=== PATIENT | female | born 1950 | race Caucasian/White ===

== ENCOUNTER 2018-03-05 01:06 | Outpatient (CLI) | payer MEDICARE, BC, SELFPAY ==
--- NOTE | 2018-03-05 15:47 | DI.MAMMO_ITS ---
SYMPTOMS/DIAGNOSIS: SCREEN FOR CONDITION, Z13.9 MAMMOGRAM: Mammograms were interpreted according to the usual protocol including computer analysis with CAD system, tomosynthesis and C view imaging. The breast tissue is primarily of fatty radiodensity. There is no mass. There are no suspicious calcifications and there has been no significant interval change when compared with prior images. SUMMARY: No evidence of malignancy, category 1. Yearly screening mammography is recommended. Breast density category A. MQSA ASSESSMENT OF FINDINGS: Negative. Category 1. Patient will receive a letter notifying them of these results. BI-RAD category A. The breasts are almost entirely fatty.
== END 2018-03-05 01:26 ==
PROVIDERS: PCP Family Medicine; Visit Provider Family Medicine
DX: Z12.31 Encounter for screening mammogram for malignant neoplasm of breast (principal)
CPT/HCPCS: 77063; 77067

== ENCOUNTER 2018-06-16 11:29 | Outpatient (REF) | payer MEDICARE, BC, SELFPAY ==
[2018-06-16 19:21] LABS: TSH (W/Ref FT4) 1.83 uIU/mL (0.358-3.74)
== END 2018-06-16 11:49 ==
LOC: NCHCN 11:29
PROVIDERS: PCP Family Medicine; Visit Provider Family Medicine
DX: E03.9 Hypothyroidism, unspecified (principal)
CPT/HCPCS: 84443

== ENCOUNTER 2018-08-28 09:26 | Outpatient (CLI) | payer MEDICARE, BC, SELFPAY ==
[2018-08-28 11:57] LABS: ALT 47 U/L (12-78); AST 31 U/L (15-37); Albumin 4.1 g/dL (3.4-5.0); Alkaline Phosphatase 71 U/L (46-116); Anion Gap 8.3 mmol/L (3-11); BUN 23 mg/dL (7-18); Bilirubin, Total 0.4 mg/dL (0.2-1.0); CO2 29.7 mmol/L (21.0-32.0); CREATININE 0.75 mg/dL (0.55-1.02); Calcium 9.8 mg/dL (8.5-10.1); Chloride 105 mmol/L (98-107); Cholesterol 329 mg/dL (50-200); Glucose 103 mg/dL (70-100); HDL Cholesterol 67 mg/dL (40-60); LDL CHOLESTEROL 234 mg/dL (<100); Potassium 4.2 mmol/L (3.5-5.1); Sodium 143 mmol/L (136-145); Total Protein 7.1 g/dL (6.4-8.2); Triglyceride 128 mg/dL (30-150)
== END 2018-08-28 09:46 ==
PROVIDERS: PCP Family Medicine; Visit Provider Family Medicine
DX: E78.5 Hyperlipidemia, unspecified (principal); E03.9 Hypothyroidism, unspecified
CPT/HCPCS: 36415; 80053; 80061; 83721; 84443

== ENCOUNTER → 2019-03-16 10:52 | Outpatient (BNVA) | payer MEDICARE, BC, SELFPAY | PROVIDERS: PCP Family Medicine; Visit Provider Surgery | DX: Z12.11 Encounter for screening for malignant neoplasm of colon (principal) | CPT/HCPCS: 99203 ==

== ENCOUNTER 2019-03-18 17:28 | Outpatient (REF) | payer MEDICARE, BC, SELFPAY ==
[2019-03-18 19:23] LABS: HCT 37.6 % (36.0-46.0); HGB 12.7 g/dL (12.0-15.5); Mean Corp. HGB Concentration 33.8 g/dL (32.0-36.0); Mean Corpuscular Volume 94.7 fL (80-95); Mean Platelet Volume 9.2 fL (8.0-11.0); Platelet Count 360 x1000/uL (130-400); RBC 3.97 m/cumm (4.00-5.20); RBC Distribution Width 12.3 % (11.7-14.6); White Blood Cell Count 7.28 k/cumm (4.4-10.8)
[2019-03-18 19:59] LABS: Vitamin B12 573 pg/mL (193-986)
[2019-03-19 07:26] LABS: Vitamin D 25 Total 34.5 ng/ml (30-100)
[2019-03-20 12:04] LABS: Lyme Ab w Rflx to Lyme Confirm Negative
== END 2019-03-18 17:48 ==
LOC: NCHCN 17:28
PROVIDERS: PCP Family Medicine; Visit Provider Family Medicine
DX: E55.9 Vitamin D deficiency, unspecified (principal); R53.83 Other fatigue; R21 Rash and other nonspecific skin eruption
CPT/HCPCS: 82306; 85027; 82607; 86618

== ENCOUNTER 2019-03-20 07:32 | Day surgery (SDC) | payer MEDICARE, BC, SELFPAY ==
[2019-03-20 07:32] VITALS: BP 138/83; PULSE 66; RESP 16; TEMP 36.3; O2SAT 95
[2019-03-20] MEDS: Lactated Ringers 1,000 ML 80 ML IV (08:28)
--- NOTE | 2019-03-20 08:51 | W.PM.DSUDISC ---
Discharge Plan Disposition Patient Disposition: HOME Condition: Good Discharge Details Reason For Visit: SCREENING Attending Provider: Maya Hou Primary Care Provider: Juan Smith Home Meds and New Rx's Prescriptions: Continued ofloxacin 0.3 % dropperette 10 drp OT BID RF: 0 topiramate 25 mg tablet 25 mg PO DAILY RF: 0 cholecalciferol (vitamin D3) 2,000 unit capsule 2,000 unit PO DAILY RF: 0 Tirosint 50 mcg capsule 50 mcg PO DAILY RF: 0 trazodone 50 mg tablet 150 mg PO QHS RF: 0 epinephrine 0.3 MG/0.3 ML auto-injector 0.3 mg IM DIRECTED PRNRF: 0 fexofenadine [Aller-ease] 180 MG tablet 180 mg PO PRN PRNRF: 0 fluticasone propionate 15.8 ML spray,suspension 2 spray NS DAILY RF: 0 estradiol [Vagifem] 10 MCG tablet 10 mcg VG .TWICE WEEKLY RF: 0 Tirosint 13 MCG capsule 13 mcg PO DAILY RF: 0 Discontinued polyethylene glycol 3350 17 gram/dose powder 238 g PO ONCE Qty: 238 RF: 0 bisacodyl 5 mg tablet,delayed release (DR/EC) 5 mg PO ONCE Qty: 4 RF: 0 Discharge Instructions Additional Instructions: Findings: Your colonoscopy was normal. Follow up: Plan for a screening in 10 years if your overall health is good. Please call if you develop: fevers >101.5 Nausea or Vomiting Abdominal pain that is not transient DAY SURGERY UNIT POST COLONOSCOPY INSTRUCTIONS 1. Because there will be medication in your system for the next 24 hours, you may feel a little sleepy. Your coordination will be affected. Therefore: a. Do not drive or operate dangerous equipment for 24 hours. b. Do not drink alcohol beverages for 24 hours (not even beer). c. Plan to go home and rest for the day. 2. Generally there are no restrictions on your activity after a day or so has gone by, but you may feel a bit fatigued for a few days. 3 After you arrive home you may have a light meal and return to a normal diet as you can tolerate it without feeling sick to your stomach. 4. After surgery, you may feel pain or discomfort. This should be only transient, but if it persists please contact your doctor. 5. If there are any questions regarding the findings of your procedure, please feel free to contact your doctor. 6. If you are unable to contact your doctor with a problem, contact the hospital at [phone]. 7. Continue all your regular medications unless directed otherwise. I understand the above instructions and have no questions. Signature of Patient or Responsible Adult Escort Date/Time Name of Responsible Adult Escort Signature of Nurse Date/Time Activity:: Activity as Tolerated Diet:: As Tolerated Discharge Orders Discharge Orders: Discharge Order (Routine); Ordered 03/20/19 Ordered By: Maya Hou DS: Diagnosis Discharge Diagnosis (1) Encounter for screening colonoscopy: Status: Acute
[2019-03-20 10:12] VITALS: BP 126/74; PULSE 69; RESP 16; TEMP 36.2; O2SAT 98
--- NOTE | 2019-03-20 10:55 | COLE_ITS ---
DATE OF PROCEDURE: March 20, 2019 PREOPERATIVE DIAGNOSIS: Screening. POSTOPERATIVE DIAGNOSIS: Normal colon. PROCEDURE: Colonoscopy. SURGEON: Maya Hou M.D. ANESTHESIA: General. INDICATIONS: This is a 69-year-old woman who presents for routine colon evaluation. Her last proced ure in 2008 was normal. She is asymptomatic and has no family history of colon cancer. PROCEDURE: She was placed in the left Temple position. Propofol was titrated to sedation. Digital re ctal examination revealed no abnormalities. The scope was advanced to the cecum with some abdominal pressure required. She did have a slightly tortuous colon. The ileocecal valve and appendiceal orif ice were clearly identified. Her prep was good. The scope was slowly withdrawn with no abnormalitie s seen within the ascending, transverse, descending or sigmoid colon or rectum, including on retrofle x view. She tolerated the procedure well and was stable to recovery. She can consider a screening a gain in ten years if her overall health is good. cc: Juan Smith M.D.
== END 2019-03-20 10:40 | disposition home or self-care (01) ==
PROVIDERS: PCP Family Medicine; Visit Provider Surgery
PROC: 0DJD8ZZ Inspection of Lower Intestinal Tract, Via Natural or Artificial Opening Endoscopic (ICD-10-PCS; CPT 45378; principal; 2019-03-20 09:00)
DX: Z12.11 Encounter for screening for malignant neoplasm of colon (principal); K63.89 Other specified diseases of intestine; G47.33 Obstructive sleep apnea (adult) (pediatric)
CPT/HCPCS: G0121; J2250; J3010

== ENCOUNTER 2019-06-19 10:48 | Outpatient (REF) | payer MEDICARE, BC, SELFPAY | END 2019-06-19 11:08 | LOC: NCHCN 10:48 | PROVIDERS: PCP Family Medicine; Visit Provider Family Medicine | DX: K52.9 Noninfective gastroenteritis and colitis, unspecified (principal) | CPT/HCPCS: 87177 ==

== ENCOUNTER → 2019-06-22 08:42 | Outpatient (BNVA) | payer MEDICARE, BC, SELFPAY | PROVIDERS: PCP Family Medicine; Referring Provider Family Medicine; Visit Provider Internal Medicine Cardiovascular Disease | DX: E78.01 Familial hypercholesterolemia (principal) | CPT/HCPCS: 99204; 99215 ==

== ENCOUNTER 2020-03-01 11:14 | Outpatient (REF) | payer MEDICARE, BC, SELFPAY ==
[2020-03-01 19:01] LABS: HCT 39.4 % (36.0-46.0); HGB 12.9 g/dL (11.2-15.7); MCH 32.3 pg (27.0-33.0); MCHC 32.7 % (32.0-36.0); MCV 98.5 fL (80-95); MPV 9.1 fL (8.0-11.0); Platelet Count 361 10^3/uL (130-400); RDW 12.2 % (11.7-14.6); RDW-SD 44.3 fL; WBC 6.87 10^3/uL (4.4-10.8)
[2020-03-01 19:23] LABS: Anion Gap 7.7 mmol/L (3-11); BUN 30 mg/dL (7-18); CO2 28.3 mmol/L (21.0-32.0); CREATININE 0.85 mg/dL (0.55-1.02); Calcium 9.6 mg/dL (8.5-10.1); Chloride 103 mmol/L (98-107); Glucose 96 mg/dL (74-106); Magnesium 2.1 mg/dL (1.8-2.4); Sodium 139 mmol/L (136-145); TSH (W/Ref FT4) 1.84 uIU/mL (0.36-3.74)
[2020-03-03 04:36] LABS: Vitamin D 25 Total 31.2 ng/ml (30-100)
== END 2020-03-01 11:34 ==
LOC: NCHCN 11:14
PROVIDERS: PCP Family Medicine; Visit Provider Family Medicine
DX: E03.9 Hypothyroidism, unspecified (principal); R25.2 Cramp and spasm; R53.83 Other fatigue; E55.9 Vitamin D deficiency, unspecified
CPT/HCPCS: 80048; 82306; 85027; 83735; 84443

== ENCOUNTER 2020-04-11 02:16 | Outpatient (CLI) | payer MEDICARE, BC, SELFPAY ==
--- NOTE | 2020-04-11 | DI.MAMMO_ITS ---
EXAM: MAMMO SCREENING CLINICAL HISTORY: SCREENING,Z12.39 TECHNIQUE: Bilateral full field digital CC and MLO mammographic images were obtained with 3D tomosyn thesis and utilizing computer aided detection (CAD). COMPARISON: Available for comparison. FINDINGS: Masses/Architectural Distortion: There is a small asymmetric density in the outer right breast on the CC view. Microcalcifications: No suspicious pleomorphic-type are seen. Skin Thickening/Nipple Retraction: None. IMPRESSION: 1. Asymmetric density in the outer right breast on the CC view. 2. Spot compression view and right breast ultrasound are recommended for further evaluation. BI-RADS Category 0 - Assessment Incomplete: Need additional imaging evaluation Breast Density - Category B - Scattered areas of fibroglandular density A negative radiographic report should not delay biopsy if a dominant or clinically suspicious mass is present. Up to ten percent of cancers are not identified on mammography. A negative report may reinforce clinical impression. Adenosis and dense breasts may obscure an underlying neoplasm. False positive reports average 6 to 10%. Patient will receive a letter notifying them of these results.
== END 2020-04-11 02:36 ==
PROVIDERS: PCP Family Medicine; Visit Provider Family Medicine
DX: Z12.31 Encounter for screening mammogram for malignant neoplasm of breast (principal); R92.8 Other abnormal and inconclusive findings on diagnostic imaging of breast; E78.01 Familial hypercholesterolemia
CPT/HCPCS: 77063; 77067; 99213

== ENCOUNTER 2020-04-14 00:37 | Outpatient (CLI) | payer MEDICARE, BC, SELFPAY ==
--- NOTE | 2020-04-14 | DI.MAMMO_ITS ---
EXAM: MG MAMMO SCREEN CALL BACK UNI and U/S breast RT limited CLINICAL HISTORY: F/U MAMMO,SMALL ASYMMETRIC DENSITY OUTER RT BREAST ON CC VIEW. TECHNIQUE: Craniocaudal and mediolateral oblique Full Field Digital Mammography views of the right b reast with Computer Aided Diagnosis followed by Tomosynthesis and right breast ultrasound. COMPARISON: Priors available for comparison. FINDINGS: Mammography/Tomosynthesis: Masses/Architectural Distortion: None seen. Microcalcifictions: No suspicious pleomorphic-type are seen. Skin Thickening/Nipple Retraction: None. Right breast US: Echotexture: Normal appearance of the glandular tissue. Shadowing: No suspicious foci. Cyst: None. Solid lesions: None seen. Ductal dilation: None. IMPRESSION: 1. No evidence of malignancy is noted. 2. A six-month follow-up right mammogram is recommended for re-evaluation. 3. The findings were discussed with the patient on the date of the examination. BI-RADS Category 3 - 6 month - Probably Benign Finding: Recommend follow-up mammography in 6 months Breast Density - Category B - Scattered areas of fibroglandular density A negative radiographic report should not delay biopsy if a dominant or clinically suspicious mass is present. Up to ten percent of cancers are not identified on mammography. A negative report may reinforce clinical impression. Adenosis and dense breasts may obscure an underlying neoplasm. False positive reports average 6 to 10%. Patient will receive a letter notifying them of these results.
== END 2020-04-14 00:57 ==
PROVIDERS: PCP Family Medicine; Visit Provider Family Medicine
DX: R92.8 Other abnormal and inconclusive findings on diagnostic imaging of breast (principal)
CPT/HCPCS: 76642; 77063; 77067

== ENCOUNTER 2020-06-02 01:14 | Outpatient (CLI) | payer MEDICARE, BC, SELFPAY ==
[2020-06-02 10:33] LABS: ALT 36 U/L (14-59); AST 24 U/L (15-37); Albumin 4.2 g/dL (3.4-5.0); Alkaline Phosphatase 39 U/L (46-116); Anion Gap 6.2 mmol/L (3-11); BUN 21 mg/dL (7-18); Bilirubin, Total 0.5 mg/dL (0.2-1.0); CO2 30.8 mmol/L (21.0-32.0); CREATININE 0.87 mg/dL (0.55-1.02); Calcium 8.9 mg/dL (8.5-10.1); Calculated LDL 75 mg/dL (<100); Chloride 106 mmol/L (98-107); Cholesterol 168 mg/dL (<200); Glucose 95 mg/dL (74-106); HDL Cholesterol 76 mg/dL (40-60); Potassium 3.7 mmol/L (3.5-5.1); Sodium 143 mmol/L (136-145); Total Protein 6.7 g/dL (6.4-8.2); Triglyceride 89 mg/dL (<150)
[2020-06-02 10:44] LABS: Uric Acid 4.7 mg/dL (2.6-6.0)
== END 2020-06-02 01:34 ==
PROVIDERS: PCP Family Medicine; Visit Provider Internal Medicine
DX: E78.01 Familial hypercholesterolemia (principal)
CPT/HCPCS: 36415; 80053; 80061; 84550

== ENCOUNTER 2020-07-22 01:26 | Outpatient (CLI) | payer MEDICARE, BC, SELFPAY ==
[2020-07-22 10:53] LABS: Calculated LDL 126 mg/dL (<100); Cholesterol 232 mg/dL (<200); HDL Cholesterol 78 mg/dL (40-60); Triglyceride 141 mg/dL (<150)
[2020-07-22 11:19] LABS: Vitamin B12 944 pg/mL (193-986)
== END 2020-07-22 01:27 | disposition home or self-care (01) ==
LOC: LBO 01:27
PROVIDERS: PCP Family Medicine; Visit Provider Internal Medicine
DX: D75.89 Other specified diseases of blood and blood-forming organs (principal); E78.01 Familial hypercholesterolemia
CPT/HCPCS: 36415; 80061; 82607

== ENCOUNTER 2020-10-14 04:12 | Outpatient (CLI) | payer MEDICARE, BC, SELFPAY ==
--- NOTE | 2020-10-14 | DI.MAMMO_ITS ---
Exam(s) MG MAMMO DIAGNOSTIC UNI EXAM: MG MAMMO DIAGNOSTIC UNI CLINICAL HISTORY: DIAGNOSTIC, 6 MO F/U MAMMO, R92.8. TECHNIQUE: Craniocaudal and mediolateral oblique Full Field Digital Mammography views of the right b reast with Computer Aided Diagnosis. COMPARISON: Comparison is made with prior examinations. FINDINGS: Mammography/Tomosynthesis: Masses/Architectural Distortion: None seen. Microcalcifictions: No suspicious pleomorphic-type are seen. Skin Thickening/Nipple Retraction: None. IMPRESSION: 1. No evidence of malignancy is noted. 2. A six-month follow-up right mammogram is recommended for re-evaluation. 3. The findings were discussed with the patient on the date of the examination. BI-RADS Category 3 - 6 month - Probably Benign Finding: Recommend follow-up imaging in 6 months Breast Density - Category B - Scattered areas of fibroglandular density Breast density Category C or D implies that the patient has dense breast tissue. Dense breast tissue can make it harder to find cancer on a mammogram. Dense breast tissue is also associated with an incr eased risk of breast cancer. This information about the result of the mammogram report was provided to the patient to raise their awareness. Use this report when you speak with the patient about their risks for breast cancer, which includes their family history. At that time, you may recommend additional screening tests (Ultrasoun d or MRI) as these tests may add significant information. A negative radiographic report should not delay biopsy if a dominant or clinically suspicious mass is present. Up to ten percent of cancers are not identified on mammography. A negative report may reinforce clinical impression. Adenosis and dense breasts may obscure an underlying neoplasm. False positive reports average 6 to 10%. Patient will receive a letter notifying them of these results.
== END 2020-10-14 04:32 ==
PROVIDERS: PCP Family Medicine; Visit Provider Family Medicine
DX: Z12.31 Encounter for screening mammogram for malignant neoplasm of breast (principal); R92.8 Other abnormal and inconclusive findings on diagnostic imaging of breast; N64.59 Other signs and symptoms in breast
CPT/HCPCS: 77061; 77065; G0279

== ENCOUNTER 2020-10-21 03:42 | Outpatient (CLI) | payer MEDICARE, BC, SELFPAY ==
[2020-10-21 09:04] LABS: Abs Immature Grans 0.02 10^3/uL (0.0-0.06); Absolute Basophil Count 0.06 10^3/uL (0.0-0.2); Absolute Eosinophil Count 0.21 10^3/uL (0.0-0.7); Absolute Lymphocyte Count 1.84 10^3/uL (1.2-3.4); Basophils % 1.2; Eosinophils % 4.3; HCT 35.7 % (36.0-46.0); HGB 12.1 g/dL (11.2-15.7); Immature Grans % 0.4; Lymphocytes % 37.3; MCHC 33.9 % (32.0-36.0); MCV 94.4 fL (80-95); MPV 8.8 fL (8.0-11.0); Monocytes % 8.1; Neutrophils % 48.7; Nucleated RBC 0 %; Platelet Count 378 10^3/uL (130-400); RBC 3.78 10^6/uL (3.93-5.22); RDW 11.8 % (11.7-14.6); RDW-SD 40.5 fL; WBC 4.93 10^3/uL (4.4-10.8)
[2020-10-21 09:48] LABS: ALT 28 U/L (14-59); AST 19 U/L (15-37); Albumin 4.7 g/dL (3.4-5.0); Alkaline Phosphatase 51 U/L (46-116); Bilirubin, Direct 0.3 mg/dL (0.0-0.2); Bilirubin, Total 0.7 mg/dL (0.2-1.0); Total Protein 7.5 g/dL (6.4-8.2); Uric Acid 5.7 mg/dL (2.6-6.0)
[2020-10-21 10:08] LABS: Calculated LDL 74 mg/dL (<100); Cholesterol 180 mg/dL (<200); HDL Cholesterol 79 mg/dL (40-60); Triglyceride 137 mg/dL (<150)
== END 2020-10-21 03:43 | disposition home or self-care (01) ==
LOC: LBO 03:42
PROVIDERS: PCP Family Medicine; Visit Provider Internal Medicine
DX: E78.01 Familial hypercholesterolemia (principal)
CPT/HCPCS: 36415; 80061; 80076; 84550; 85025

== ENCOUNTER 2020-11-04 02:34 | Outpatient (CLI) | payer MEDICARE, BC, SELFPAY ==
[2020-11-04 15:33] LABS: Iron 79 ug/dL (50-170); Total Iron Binding Capacity 326 ug/dL (250-450); Transferrin Sat 24 % (15-50)
[2020-11-04 15:46] LABS: Ferritin 93 ng/mL (8-252)
[2020-11-07 11:00] LABS: Hepatitis C Ab w Rflx HCV PCR Negative (Negative)
== END 2020-11-04 02:35 | disposition home or self-care (01) ==
LOC: LBO 02:35
PROVIDERS: PCP Family Medicine; Visit Provider Family Medicine
DX: D64.9 Anemia, unspecified (principal); Z11.59 Encounter for screening for other viral diseases
CPT/HCPCS: 36415; 86803; 82728; 83540; 83550

== ENCOUNTER 2021-04-18 01:02 | Outpatient (CLI) | payer MEDICARE, BC, SELFPAY ==
--- NOTE | 2021-04-18 09:52 | DI.MAMMO_ITS ---
Exam(s) MAMMO DIAGNOSTIC BI EXAM: MAMMO DIAGNOSTIC BI CLINICAL HISTORY: F/U ABNL MAMMO, R92.8 TECHNIQUE: Bilateral full field digital CC and MLO mammographic images were obtained with 3D tomosyn thesis and utilizing computer aided detection (CAD). COMPARISON: Available for comparison. FINDINGS: Masses/Architectural Distortion: There has been no change in appearance of the mammogram compared to the prior examination. Microcalcifications: No suspicious pleomorphic-type are seen. Skin Thickening/Nipple Retraction: None. IMPRESSION: 1. No significant interval change with no specific features of malignancy noted. 2. Unless there is more urgent need, screening mammography is recommended, as per [employer] guidelines. 3. Findings were discussed with the patient on the date of the examination. BI-RADS Category 3 - 6 month - Probably Benign Finding: Recommend follow-up imaging of the right lin st in 6 months Breast Density - Category B - Scattered areas of fibroglandular density Breast density category C or D implies that the patient has dense breast tissue. Dense breast tissue is very common and is not abnormal but dense breast tissue can make it harder to find cancer on a ma mmogram. Also, dense breast tissue may increase their breast cancer risk. This information about the result of the mammogram report was provided to the patient to raise their awareness. Use this report when you speak with the patient about their risks for breast cancer, which includes their family hist ory. At that time, you may recommend for more screening tests (Ultrasound or MRI) as they might be us eful based on their risk. A negative radiographic report should not delay biopsy if a dominant or clinically suspicious mass is present. Up to ten percent of cancers are not identified on mammography. A negative report may reinforce clinical impression. Adenosis and dense breasts may obscure an underlying neoplasm. False positive reports average 6 to 10%. Patient will receive a letter notifying them of these results.
== END 2021-04-18 01:22 ==
PROVIDERS: PCP Family Medicine; Visit Provider Family Medicine
DX: Z12.31 Encounter for screening mammogram for malignant neoplasm of breast (principal); R92.8 Other abnormal and inconclusive findings on diagnostic imaging of breast; N64.59 Other signs and symptoms in breast
CPT/HCPCS: 77062; 77066; G0279

== ENCOUNTER → 2021-10-02 10:53 | Outpatient (BNVA) | payer MEDICARE, SELFPAY | PROVIDERS: PCP Family Medicine; Referring Provider Family Medicine; Visit Provider Surgery | DX: I83.893 Varicose veins of bilateral lower extremities with other complications (principal) | CPT/HCPCS: 99214; 99242 ==

== ENCOUNTER 2021-10-05 03:11 | Outpatient (CLI) | payer MEDICARE, SELFPAY ==
[2021-10-05 11:53] LABS: Calculated LDL 296 mg/dL (<100); Cholesterol 412 mg/dL (<200); HDL Cholesterol 93 mg/dL (40-60); Triglyceride 118 mg/dL (<150)
== END 2021-10-05 03:12 | disposition home or self-care (01) ==
LOC: LBO 03:12
PROVIDERS: PCP Family Medicine; Visit Provider Internal Medicine
DX: E78.01 Familial hypercholesterolemia (principal)
CPT/HCPCS: 36415; 80061

== ENCOUNTER → 2022-03-16 01:02 | Outpatient (CLI) | payer MEDICARE, SELFPAY ==
--- NOTE | 2022-03-16 11:45 | DI.MAMMO_ITS ---
Exam(s) MAMMO SCREENING EXAM: MAMMO SCREENING CLINICAL HISTORY: SCREENING, [facility], Z00.00. TECHNIQUE: Bilateral full field digital CC and MLO mammographic images were obtained with 3D tomosyn thesis and utilizing computer aided detection (CAD). COMPARISON: Prior mammograms were reviewed, the most recent being April 2021. FINDINGS: There has been no significant change in the appearance and distribution fibroglandular tissue. Small microcalcification in the left breast is unchanged prior studies. There are no malignant-appea ring microcalcification groups in either breast. No new spiculated masses. There is no significant architectural distortion nor skin thickening-retraction. IMPRESSION: No radiographic evidence of malignancy. BI-RADS Category 1 - Negative Breast Density - Category B - Scattered areas of fibroglandular density Breast density Category C or D implies that the patient has dense breast tissue. Dense breast tissue can make it harder to find cancer on a mammogram. Dense breast tissue is also associated with an incr eased risk of breast cancer. This information about the result of the mammogram report was provided to the patient to raise their awareness. Use this report when you speak with the patient about their risks for breast cancer, which includes their family history. At that time, you may recommend additional screening tests (Ultrasoun d or MRI) as these tests may add significant information. A negative radiographic report should not delay biopsy if a dominant or clinically suspicious mass is present. Up to ten percent of cancers are not identified on mammography. A negative report may reinforce clinical impression. Adenosis and dense breasts may obscure an underlying neoplasm. False positive reports average 6 to 10%. Patient will receive a letter notifying them of these results.
== END ==
PROVIDERS: PCP Family Medicine; Visit Provider Family Medicine
DX: Z12.31 Encounter for screening mammogram for malignant neoplasm of breast (principal)
CPT/HCPCS: 77063; 77067

== ENCOUNTER 2022-08-17 17:46 | Outpatient (CLI) | payer MEDICARE, SELFPAY | END 2022-08-17 17:47 | disposition home or self-care (01) | LOC: LBO 17:48 | PROVIDERS: PCP Family Medicine; Visit Provider Otolaryngology Otolaryngology/Facial Plastic Surgery | DX: J30.1 Allergic rhinitis due to pollen (principal) | CPT/HCPCS: 36415; 86003 ==

== ENCOUNTER 2022-09-26 13:10 | Outpatient (CLI) | payer MEDICARE, SELFPAY ==
[2022-09-28 19:54] LABS: Soybean IgE <0.35 kU/L
== END 2022-09-26 13:11 | disposition home or self-care (01) ==
LOC: LBO 13:10
PROVIDERS: PCP Family Medicine; Visit Provider Otolaryngology Otolaryngology/Facial Plastic Surgery
DX: J30.1 Allergic rhinitis due to pollen (principal)
CPT/HCPCS: 36415; 86003

== ENCOUNTER 2023-03-20 15:44 | Outpatient (REF) | payer MEDICARE, SELFPAY ==
[2023-03-20 15:44] LABS: HCT 36.1 % (36.0-46.0); HGB 12.2 g/dL (11.2-15.7); MCH 31.4 pg (27.0-33.0); MCHC 33.8 % (32.0-36.0); MCV 93 fL (80-95); MPV 9.2 fL (8.0-11.0); Platelet Count 412 10^3/uL (130-400); RBC 3.88 10^6/uL (3.93-5.22); RDW-SD 41.1 fL; WBC 5.46 10^3/uL (4.4-10.8)
[2023-03-21 12:55] LABS: IgA 243 mg/dL (85-499); Interpretation (See Note); Tissue Transglutaminase IgA <1.2 U/mL (<4.0)
== END 2023-03-20 15:45 | disposition home or self-care (01) ==
LOC: NCHCN 15:44
PROVIDERS: PCP Nurse Practitioner Family; Visit Provider Nurse Practitioner Family
DX: R53.83 Other fatigue (principal); E66.9 Obesity, unspecified; G47.00 Insomnia, unspecified
CPT/HCPCS: 82784; 83516; 85027

== ENCOUNTER 2023-05-17 03:31 | Outpatient (CLI) | payer MEDICARE, SELFPAY | END 2023-05-17 03:32 | disposition home or self-care (01) | LOC: LBO 03:32 | PROVIDERS: PCP Nurse Practitioner Family; Visit Provider Nurse Practitioner Family | DX: G89.29 Other chronic pain (principal) | CPT/HCPCS: 36415; 82306 ==

== ENCOUNTER 2023-05-21 15:31 | Outpatient (REF) | payer MEDICARE, SELFPAY ==
--- OUTSIDE RECORDS SUMMARY | 2023-05-21 15:33 | XMS_ITS | Continuity of Care Document ---
Author Name Unknown Organization [facility] Ambulatory Clinics Address [address] [place] [address] Care Team Providers Care Advertising Production Manager Name Role Phone Mary Campbell MD Primary Care Physician Encounter [facility] NBR [id number] Date(s): 06/20/22 - 06/20/22 [facility] Ambulatory Clinics [address], [place] [address] Encounter Diagnosis Osteoarthritis of left knee joint(Discharge Diagnosis) - 06/20/22 Degenerative disc disease, lumbar(Discharge Diagnosis) - 06/20/22 Discharge Disposition: Home or Self Care Attending Physician: Yasmine Batista APRN Allergies, Adverse Reactions, Alerts Substance Reaction Severity Status amoxicillin Unknown Active morphine Unknown Active fenofibrate Unknown Active citalopram Unknown Active penicillins Unknown Active sulfa drugs Unknown Active Effexor Unknown Active Bactrim Unknown Active Zocor Unknown Active Voltaren Unknown Active Sulfabenzamide/Sulfacetamide/Sulfathiazole Nausea Moderate Active Lipitor Unknown Active Bees/Stinging Insects Unknown Active OxyCONTIN Unknown Active Augmentin Moderate Active Crestor Unknown Active Assessment and Plan Future Appointments Future Scheduled Tests Radiology* MG Mammo Screening Bilateral 06/25/22 Functional Status 06/20/22 Other exposure to Infectious Disease Non e Immunizations Given and Recorded Vaccine Date Status Refusal Reason SARS-CoV-2 mRNA-1273 bivalent booster 04/04/22 Giv en Medications Abilify 2 mg oral tablet 2 mg = 1 tab, Oral, Daily, # 90 tab, 1 Refill(s), Pharmacy: [facility] #[id number] Start Date: 05/28/22 Status: Ordered Abilify 2 mg oral tablet 2 mg = 1 tab, Oral, BID, call MD with update in 60 days or sooner, # 180 tab, 0 Refill(s), [id number] Start Date: 05/28/22 Stop Date: 08/26/22 Status: Ordered Abilify 2 mg oral tablet 2 mg = 1 tab, Oral, Daily, # 30 tab, 0 Refill(s) Start Date: 06/20/22 Status: Ordered Glory-D 24 Hour Allergy & Congestion 180 mg-240 mg oral tablet, extended release 1 tab, Oral, Daily, 0 Refill(s) Start Date: 05/16/22 Status: Ordered atorvastatin 80 mg oral tablet 80 mg = 1 tab, Oral, Daily, # 30 tab, 0 Refill(s) Start Date: 06/20/22 Status: Ordered doxycycline hyclate 100 mg oral capsule 100 mg = 1 cap, Oral, Daily, # 7 cap, 0 Refill(s) Start Date: 05/16/22 Stop Date: 05/23/22 Status: Ordered EpiPen 2-Melchor 0.3 mg injectable kit 0 Refill(s) Start Date: 04/27/22 Status: Ordered Flonase Nasal, PRN as needed, 0 Refill(s) Start Date: 04/09/22 Status: Ordered meloxicam 7.5 mg oral tablet 7.5 mg = 1 tab, Oral, Daily, # 30 tab, 3 Refill(s), Pharmacy: [facility] Start Date: 04/27/22 Status: Ordered naproxen 500 mg oral delayed release tablet BID, as needed, 0 Refill(s) Start Date: 04/27/22 Status: Ordered Niaspan ER 500 mg oral tablet, extended release 750 mg =, Oral, BID, # 100 tab, 0 Refill(s) Start Date: 04/27/22 Status: Ordered Perry-3 1000 mg oral capsule Daily, 0 Refill(s) Start Date: 04/27/22 Status: Ordered Proventil HFA 90 mcg/inh inhalation aerosol QID, 2 puffs as needed, 0 Refill(s) Start Date: 04/27/22 Status: Ordered Sudafed 30 mg oral tablet QID, as needed, 0 Refill(s) Start Date: 04/27/22 Status: Ordered Tirosint 50 mcg (0.05 mg) oral capsule 0 Refill(s) Start Date: 04/09/22 Status: Ordered traZODone 150 mg oral tablet 90 EA, TAKE 1 TABLET BY MOUTH EVERY DAY AT BEDTIME, 0 Refill(s) Start Date: 04/09/22 Status: Ordered traZODone 50 mg oral tablet 50 mg = 1 tab, Oral, every night at bedtime, as needed for insomnia. In addition to 150mg., # 30 tab, 3 Refill(s), Pharmacy: [facility] Start Date: 05/16/22 Status: Ordered Tylenol Extra Strength 500 mg oral tablet QID, as needed, 0 Refill(s) Start Date: 04/27/22 Status: Ordered Vascepa 1 g oral capsule BID, PRN as needed, 2 Unknown, 0 Refill(s) Start Date: 04/27/22 Status: Ordered Problem List Condition Confirmation Course Effective Dates Status Health Status Informant Allergic rhinitis due to pollen Confirmed Active Arthritis of bilateral first carpometacarpal joints Confirmed Active Complication of surgical procedure Confirmed Active Conductive hearing loss Confirmed Active Degenerative joint disease of ankle AND/OR foot Confirmed Active Environmental allergy Confirmed Active Familial hypercholesterolemia Confirmed Active Fatigue Confirmed Active Chronic fatigue Confirmed Active H/O: ear disorder Confirmed Active Hypothyroidism Confirmed Active Insomnia Confirmed Active Localized, primary osteoarthritis of the hand Confirmed Active Lumbosacral spondylosis without myelopathy Confirmed Active Mixed anxiety and depressive disorder Confirmed Active Mixed urinary incontinence Confirmed Active Obstructive sleep apnea syndrome Confirmed Active Osteoarthritis of foot joint Confirmed Active Osteoarthritis of knee Confirmed Active Osteoarthritis of left knee joint Confirmed Active Pain of joint of knee Confirmed Active Pain of right knee joint Confirmed Active Cancer screening 1, 2 Confirmed Active Restless legs Confirmed Active Varicose veins of lower extremity Confirmed Active Vitamin D deficiency Confirmed Active 1history of hysterectomy colonoscopy 03/2019 with 10 year recall. 2mammo 03/2022 Procedures Procedure Date Related Diagnosis Body Site Status CMCJ - Carpometacarpal joint arthroplasty of thumb 12/28/21 Completed Arthroscopy of shoulder with biceps tenodesis 1 07/04/20 Completed Breast reduction 06/2014 Complete d Total knee arthroplasty 03/03/12 C ompleted Hysterectomy 1991 Completed Appendectomy 1961 Completed Tonsillectomy 1961 Completed of child Completed 1Right shoulder arthroscopy w/significant intra and extra-articular debridment of torn superior labrum frayed supraspinatus and calcific deposit, biceps tenodesis, decompression Vital Signs Most recent to oldest [Reference Range]: 1 Peripheral Pulse Rate [60-100 bpm] 78 bp m (06/20/22 11:13 AM) Blood Pressure [90-140/60-90 mmHg] 122/6 2mmHg (06/20/22 11:13 AM) Social History Social History Type Response Tobacco Never tobacco user T obacco Use:. Sex Physician Outpatient Note * Yasmine Batista, DIETARY SERVICES DIRECTOR: PERFORM, MODIFY Event Display: Office Clinic Note Physician Authored Date: [id number] YESSENIA ESPARZA :1950 Age:72 years Sex:Female Visit Date:06/20/2022 Primary Care Physician: Mary Campbell MD Chief Complaint Left Knee Pain History of Present Illness Yessenia is a well-known patient to me, comes in today for??left??knee pain, she has known well-established??mild to moderate osteoarthritis of her left knee, we have treated this intermittently over the years with SynviscOne she is here today to be considered for that.?? She has never had any untoward effect after injections in the past, hoping this will get her symptomatic benefit, she is still dealing with a lot of what we believed to be post Lyme discomfort and issues, she has been treated by ??Adrian??her primary care physician as well as physical therapy. ??She is wondering about referralto our spine clinic for possible injections as we had discussed this at her last visit. Review of Systems Constitutional:?No??fevers,?No??chills,?No??sweats Eye:?No??recent visual problems ENT:?No??ear pain,?No??nasal congestion,?No??sore throat Respiratory:?No??shortness of breath,?No??cough Cardiovascular:?No??Chest pain,?No??palpitations,?No??syncope Gastrointestinal:?Nonausea,?No??vomiting,?No??diarrhea Genitourinary:?No??hematuria Ba/Lymph:?No??bruising tendency,?No??swollen lymph glands Endocrine:?No??excessive thirst,??No??excessive hunger Musculoskeletal:??No??back pain,??No??neck pain,??Positive for??joint pain,??Positive for??muscle pain,??Positive for??decreased range of motion Integumentary:?No??rash,?No??pruritus,?No??abrasions Neurologic: Alert & oriented X 4 Psychiatric:?No??anxiety,?No??depression Physical Exam Vitals & Measurements HR:??78??(Peripheral)?? BP:??122/62?? SpO2:??98%?? Pain Score:??3?? General: ??appears stated age, well dressed HEENT: no loss of hearing, normocephalic, EOMs intact Neuro: ??grossly intact, if indicated see specific neurology exam Psych: ??alert and oriented to place and time, pleasant, cooperative Dermatology: ??no gross open areas of skin-see exam of limb for specifics Lymphatics: ??no lymphedema of affected limb Gait: Slightly antalgic with start up Vascular: ??pulses distally of limb are 2+?? Musculoskeletal: Left knee:??To inspection there is no effusion no erythema no open areas of the skin no signs or symptoms of infection, range of motion has not??changed since last visit Procedure Risks and benefits of injection is discussed with the patient. ??Risks include but are not limited to the ??possibility of infection, steroid flare, fat atrophy, skin discoloration, and incomplete resolution of their symptoms. The patient gives verbal consent. ??The left knee is prepped with alcohol x 3, ultrasound is used to identify the supra-patella pouch in the longitudinal and sagittal plane, live ultrasound guidance is used for needle placement in the suprapatella pouch and this is documented,??48 mg of Synvisc 1??1 and 40 mg of Kenalog is then injected using sterile technique. ??The patient tolerate the procedure well and a sterile dressing is applied. I did ask the patient to avoid a bath or shower for 24 hours after injection to reduce risk of introducing infection. ??We also discussed the knee may feel a bit more irritated for a few days status post injection. ??They will call with any questions or concerns. Assessment/Plan 1.??Osteoarthritis of left knee joint??M17.12 Yessenia and I spent about??50 minutes together today with 10 of those minutes spent reviewing??the injections, that this is??providing her symptomatic benefit of her osteoarthritis, she is never had any untoward effects and we were able to proceed with that today after physical exam. ??Postinjection instructions are given if she has any issues questions concerns she is encouraged to call.?? I will do a referral to our spine clinic for possible RANDALL's??as she has not found great relief with physical therapy??and she does have degenerative disc disease. Ordered: Synvisc, 48 mg, Intra-articular, As Directed, First Dose: 06/20/22 11:29:00 EST, Physician Stop, Routine Kenalog-40, 40 mg, Intra-articular, As Directed, First Dose: 06/20/22 11:29:00 EST, Physician Stop,Routine ?? 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 of bilateral first carpometacarpal joints Cancer screening Chronic fatigue Complication of surgical procedure Conductive hearing loss Degenerative joint disease of ankle AND/OR foot Environmental allergy Familial hypercholesterolemia Fatigue H/O: ear disorder Hypothyroidism Insomnia Localized, primary osteoarthritis of the hand Lumbosacral spondylosis without myelopathy Mixed anxiety and depressive disorder Mixed urinary incontinence Obstructive sleep apnea syndrome Osteoarthritis of foot joint Osteoarthritis of knee Osteoarthritis of left knee joint Pain of joint of knee Pain of right knee joint Restless legs Varicose veins of lower extremity Vitamin D deficiency Historical No qualifying data Procedure/Surgical History ???CMCJ - Carpometacarpal joint arthroplasty of thumb (12/29/2021)???Arthroscopy of shoulder with biceps tenodesis (07/05/2020)???Breast reduction (06/2014)???Total knee arthroplasty (03/04/2012)???Hysterectomy (1991)???Appendectomy (1961)???Tonsillectomy (1961)??? of child Medications Abilify 2 mg oral tablet, 2 mg= 1 tab, Oral, Daily, 1 refills Abilify 2 mg oral tablet, 2 mg= 1 tab, Oral, BID Abilify 2 mg oral tablet, 2 mg= 1 tab, Oral, Daily Glory-D 24 Hour Allergy & Congestion 180 mg-240 mg oral tablet, extended release, 1 tab, Oral, Daily atorvastatin 80 mg oral tablet, 80 mg= 1 tab, Oral, Daily doxycycline hyclate 100 mg oral capsule, 100 mg= 1 cap, Oral, Daily EpiPen 2-Melchor 0.3 mg injectable kit Flonase, Nasal, PRN Kenalog-40, 40 mg, Intra-articular, Once Kenalog-40, 40 mg, Intra-articular, As Directed meloxicam 7.5 mg oral tablet, 7.5 mg= 1 tab, Oral, Daily, 3 refills naproxen 500 mg oral delayed release tablet, BID Niaspan ER 500 mg oral tablet, extended release, 750 mg, Oral, BID Perry-3 1000 mg oral capsule, Daily Proventil HFA 90 mcg/inh inhalation aerosol, QID Sudafed 30 mg oral tablet, QID Synvisc, 48 mg, Intra-articular, As Directed Tirosint 50 mcg (0.05 mg) oral capsule traZODone 150 mg oral tablet traZODone 50 mg oral tablet, 50 mg= 1 tab, Oral, every night at bedtime, 3 refills Tylenol Extra Strength 500 mg oral tablet, QID Vascepa 1 g oral capsule, BID, PRN Allergies Augmentin Sulfabenzamide/Sulfacetamide/Sulfathiazole??(Nausea) Bactrim Bees/Stinging Insects Crestor Effexor Lipitor OxyCONTIN Voltaren Zocor amoxicillin citalopram fenofibrate morphine penicillins sulfa drugs Social History Electronic Cigarette/Vaping Electronic Cigarette Use: Never. Tobacco Never tobacco user Tobacco Use:. Family History Arthritis: Grandmother (P). Diabetes mellitus: Grandfather (M). High cholesterol: Mother and Father. Hypertension: Mother. Osteoporosis: Mother. Immunizations Vaccine Date Status SARS-CoV-2 mRNA-1273 bivalent booster 04/04/2022 Given Electronically Signed on 06/20/22 03:16 PM Yasmine Batista APRN Patient Care team information Personnel Name: Mary Campbell MD Address: Address: [address] [place] [address]
--- OUTSIDE RECORDS SUMMARY | 2023-05-21 15:33 | XMS_ITS | Continuity of Care Document ---
Author Name Unknown Organization [facility] Ambulatory Clinics Address [address] [place] [address] Care Team Providers Care Supervisor Pastry Name Role Phone Adrian FONG, Mary Primary Care Physician Encounter [facility] NBR [id number] Date(s): 04/04/22 - 04/04/22 [facility] Ambulatory Clinics [address] [place] [address]- [place] Encounter Diagnosis COVID-19 vaccine administered(Discharge Diagnosis) - 04/04/22 Discharge Disposition: Home or Self Care Attending Physician: Lacie Good PA-C Assessment and Plan Future Appointments Future Scheduled Tests Radiology* MG Mammo Screening Bilateral 04/10/22 Immunizations Given and Recorded Vaccine Date Status Refusal Reason SARS-CoV-2 mRNA-1273 bivalent booster 04/04/22 Giv en Medications estradiol 0.5 mg oral tablet 1 Unknown, 0 Refill(s) Start Date: 03/26/22 Status: Ordered naltrexone 50 mg oral tablet 1 tab, Oral, Daily, # 30 tab, 0 Refill(s), Pharmacy: [facility] #[id number] Start Date: 03/26/22 Status: Ordered Social History Social History Type Response Tobacco Never tobacco user T obacco Use:. Sex Patient Care team information Personnel Name: Mary Campbell MD Address: Address: [address] [place] [id number]
--- OUTSIDE RECORDS SUMMARY | 2023-05-21 15:33 | XMS_ITS | Continuity of Care Document ---
Author Name Unknown Organization [facility] Ambulatory Clinics Address [address] [place] [address] Care Team Providers Care Tower Equipment Repairer Name Role Phone Adrian FONG, Mary Primary Care Physician Encounter [facility] NBR [id number] Date(s): 03/26/22 - 03/26/22 [facility] Ambulatory Clinics [address] [place] [address] Encounter Diagnosis Arthritis of carpometacarpal (CMC) joint of right thumb(Discharge Diagnosis) - 03/26/22 Discharge Disposition: Home or Self Care Attending Physician: Waldemar Torres APRN Assessment and Plan Future Appointments Future Scheduled Tests Radiology* MG Mammo Screening Bilateral 04/10/22 Functional Status 03/26/22 Other exposure to Infectious Disease Non e Medications estradiol 0.5 mg oral tablet 1 Unknown, 0 Refill(s) Start Date: 03/26/22 Status: Ordered naltrexone 50 mg oral tablet 1 tab, Oral, Daily, # 30 tab, 0 Refill(s), Pharmacy: [facility] #[id number] Start Date: 03/26/22 Status: Ordered Vital Signs Most recent to oldest [Reference Range]: 1 Peripheral Pulse Rate [60-100 bpm] 82 bp m (03/26/22 11:17 AM) Blood Pressure [90-140/60-90 mmHg] 138/7 4mmHg (03/26/22 11:17 AM) Social History Social History Type Response Tobacco Never tobacco user T obacco Use:. Sex Patient Care team information Personnel Name: Mary Campbell MD Address: Address: [address] [place] [address]
--- OUTSIDE RECORDS SUMMARY | 2023-05-21 15:33 | XMS_ITS | Continuity of Care Document ---
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 Role Phone Denis LEONPaul Sainzah Liyah Primary Care Physician Encounter [facility] NBR [id number] Date(s): 11/02/22 - 11/02/[address] [address]- [place] Discharge Disposition: Home Allergies, Adverse Reactions, Alerts Substance Reaction Severity Status amoxicillin Unknown Active morphine Unknown Active fenofibrate Unknown Active citalopram Unknown Active penicillins Unknown Active sulfa drugs Unknown Active Augmentin Moderate Active Effexor Unknown Active Bactrim Unknown Active Zocor Unknown Active Voltaren Unknown Active Sulfabenzamide/Sulfacetamide/Sulfathiazole Nausea Moderate Active Lipitor Unknown Active Crestor Unknown Active OxyCONTIN Unknown Active Bees/Stinging Insects Unknown Active Assessment and Plan Future Appointments Future Scheduled Tests Radiology* BD Bone Density DEXA Axial Skeleton 11/28/22 Immunizations Given and Recorded Vaccine Date Status Refusal Reason SARS-CoV-2 (COVID-19) mRNA-1273(6y+ biva 04/04/22 Given tetanus/diphth/pertuss (Tdap) adult/adol 1 11/27/21 Recorded tetanus/diphth/pertuss (Tdap) adult/adol 02/19/18 Recorded tetanus/diphth/pertuss (Tdap) adult/adol 10/15/16 Recorded tetanus/diphth/pertuss (Tdap) adult/adol 07/02/16 Recorded SARS-CoV-2 (COVID-19) mRNA-1273 vaccine 2 09/20/21 Recorded SARS-CoV-2 (COVID-19) mRNA-1273 vaccine 3 08/31/20 Recorded SARS-CoV-2 (COVID-19) mRNA-1273 vaccine 4 08/03/20 Recorded influenza virus vaccine, inactivated 5 04/18/21 Re corded influenza virus vaccine, inactivated 6 03/07/20 Re corded influenza virus vaccine, inactivated 7 04/02/17 Re corded influenza virus vaccine, inactivated 8 04/11/15 Re corded hepatitis B adult vaccine 06/17/19 Recorded hepatitis B adult vaccine 04/02/17 Recorded hepatitis B adult vaccine 11/15/14 Recorded zoster vaccine, inactivated 06/16/18 Recorded zoster vaccine, inactivated 02/19/18 Recorded zoster vaccine, inactivated 10/15/16 Recorded zoster vaccine, inactivated 06/06/16 Recorded typhoid vaccine, live 04/13/17 Recorded hepatitis A adult vaccine 04/02/17 Recorded hepatitis A adult vaccine 11/15/14 Recorded pneumococcal 23-polyvalent vaccine 9 11/15/14 Tu rded 1Result Comment: Unit: Unknown 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[employer] 2Result Comment: Unit: Unknown 3Result Comment: Unit: Unknown 4Result Comment: Unit: Unknown 5Result Comment: Unit: Unknown 6Result Comment: Unit: Unknown 7Result Comment: Unit: Unknown 8Result Comment: Unit: Unknown 9Result Comment: Unit: Unknown Medications Clarinex 5 mg oral tablet 5 mg = 1 tab, Oral, Daily, 0 Refill(s) Start Date: 10/24/22 Status: Ordered EpiPen 2-Melchor 0.3 mg injectable kit 0.3 mg =, As Directed, PRN as needed for allergic reaction, as directed Injection PRN Allergic Reaction, 0 Refill(s) Start Date: 04/27/22 Status: Ordered Flonase Nasal, PRN as needed, 0 Refill(s) Start Date: 04/09/22 Status: Ordered gabapentin 100 mg oral capsule 200 mg = 2 cap, Oral, every evening, Start with 1 capsule at bedtime. If tolerating for 2 nights, can increase to 2 capsules at bedtime. Monitor for drowsiness., # 60 cap, 0 Refill(s), Pharmacy: [id number] Start Date: 08/14/22 Status: Ordered ibuprofen 100 mg oral tablet 200 mg = 2 tab, Oral, every 6 hr, PRN as needed for fever, # 80 tab, 1 Refill(s), Pharmacy: [facility] Start Date: 11/02/22 Status: Ordered ketotifen 0.025% ophthalmic solution 1 drops, Eye-Both, BID, # 7.5 mL, 0 Refill(s) Start Date: 08/17/22 Status: Ordered meloxicam 7.5 mg oral tablet 7.5 mg = 1 tab, Oral, Daily, # 30 tab, 3 Refill(s), Pharmacy: [facility] Start Date: 04/27/22 Status: Ordered Nexletol 180 mg oral tablet 180 mg = 1 tab, Oral, every other day, # 45 tab, 0 Refill(s) Start Date: 10/31/22 Stop Date: 01/29/23 Status: Ordered omeprazole 20 mg oral delayed release capsule 20 mg = 1 cap, Oral, Daily, Appointment 10/29/22 , # 90 cap, 3 Refill(s), Pharmacy: [facility] Start Date: 10/16/22 Stop Date: 10/11/23 Status: Ordered Proventil HFA 90 mcg/inh inhalation aerosol QID, 2 puffs as needed, 0 Refill(s) Start Date: 04/27/22 Status: Ordered Singulair 10 mg =, Oral, Daily, 0 Refill(s) Start Date: 10/24/22 Status: Ordered Tirosint 50 mcg (0.05 mg) oral capsule 50 mcg = 1 cap, Oral, Daily, # 90 cap, 0 Refill(s), Pharmacy: [facility] Start Date: 08/23/22 Status: Ordered traZODone 150 mg oral tablet 90 EA, TAKE 1 TABLET BY MOUTH EVERY DAY AT BEDTIME, 0 Refill(s) Start Date: 04/09/22 Status: Ordered traZODone 50 mg oral tablet 50 mg = 1 tab, Oral, every night at bedtime, as needed for insomnia. In addition to 150mg., # 30 tab, 3 Refill(s), Pharmacy: [facility] Start Date: 05/16/22 Status: Ordered triamcinolone 0.025% topical cream 1 karina, Topical, Daily, # 15 g, 0 Refill(s), Pharmacy: [facility] Start Date: 08/07/22 Stop Date: 08/21/22 Status: Ordered Tylenol 8 Hour 650 mg oral tablet, extended release 650 mg = 1 tab, Oral, BID, PRN as needed for fever, # 50 tab, 1 Refill(s), Pharmacy: [id number] Start Date: 11/02/22 Status: Ordered Tylenol Extra Strength 500 mg oral tablet QID, as needed, 0 Refill(s) Start Date: 04/27/22 Status: Ordered Vagifem 10 mcg vaginal tablet 10 mcg = 1 tab, VAG, Mon/Fri, # 26 tab, 4 Refill(s), Pharmacy: [facility] Start Date: 10/25/22 Stop Date: 01/18/24 Status: Ordered Vascepa 1 g oral capsule 2 g = 2 cap, Oral, BID, # 180 cap, 0 Refill(s) Start Date: 10/31/22 Stop Date: 01/29/23 Status: Ordered Vraylar 1.5 mg oral capsule 1.5 mg = 1 cap, Oral, Daily, 0 Refill(s) Start Date: 10/25/22 Status: Ordered Problem List Condition Confirmation Course Effective Dates Status Health Status Informant Allergic rhinitis due to pollen Confirmed Active Arthritis of bilateral first carpometacarpal joints Confirmed Active Complication of surgical procedure Confirmed Active Conductive hearing loss Confirmed Active Degenerative joint disease of ankle AND/OR foot Confirmed Active Environmental allergy Confirmed Active Familial hypercholesterolemia Confirmed Active Fatigue Confirmed Active Chronic fatigue Confirmed Active History of recurrent ear infection Confirmed Active History of obesity Confirmed Active History of anemia Confirmed Active History of Lyme disease Confirmed Active History of total abdominal hysterectomy Confirmed Active History of urticaria Confirmed Active Hypothyroidism Confirmed Active Insomnia Confirmed Active Localized, primary osteoarthritis of the hand Confirmed Active Lumbosacral spondylosis without myelopathy Confirmed Active Mixed anxiety and depressive disorder Confirmed Active Mixed hyperlipidemia Confirmed Active Mixed urinary incontinence Confirmed Active Obstructive sleep apnea syndrome Confirmed Active Osteoarthritis of foot joint Confirmed Active Osteoarthritis of knee Confirmed Active Osteoarthritis of left knee joint Confirmed Active Pain of joint of knee Confirmed Active Pain of right knee joint Confirmed Active Cancer screening 1, 2 Confirmed Active Restless legs Confirmed Active Heart murmur, systolic Confirmed Active Varicose veins of lower extremity Confirmed Active Vitamin D deficiency Confirmed Active 1history of hysterectomy colonoscopy 03/2019 with 10 year recall. 2mammo 03/2022 Procedures Procedure Date Related Diagnosis Body Site Status CMCJ - Carpometacarpal joint arthroplasty of thumb 12/28/21 Completed Arthroscopy of shoulder with biceps tenodesis 1 07/04/20 Completed Surgery 2 06/2020 Completed Drainage of environmental auditor y canal abscess 3 10/2016 Completed Procedure 4 11/2015 Completed Breast reduction 06/2014 Complete d Balloon sinuplasty 5 05/2014 Comp leted Total knee arthroplasty 03/03/12 C ompleted Hysterectomy 1991 Completed Appendectomy 1961 Completed Tonsillectomy 1961 Completed of child Completed section 6 Comple rula 1Right shoulder arthroscopy w/significant intra and extra-articular debridment of torn superior labrum frayed supraspinatus and calcific deposit, biceps tenodesis, decompression 2right shoulder surgery -ECW 3L LA tube, b/l tube removal, R EAC abscess drainage 4ECW BPET removal, long acting placement tubes b/l 5bilateral balloon sinoplasty Frontal and Maxillary, bilateral T-tube placement 6date unknown - indicated multiple seactions in ECW Social History Social History Type Response Tobacco Never tobacco user T obacco Use:. Sex Patient Care team information Care Team Personnel Name: Yasmine Strickland APRN Position: Physician Member Role: Nurse Practitioner Address: Address: [address] [place] [address] Name: Veronica Barrios APRN Position: Physician Member Role: Primary Care Physician Address: Address: [address] [place] [address] Care Team Related Persons Name: MARIANO MORENO Address: Home Name: DESEAN ESPARZA Address: Home [address] [place] [phone] [facility] Name: DESEAN ESPARZA Address: Home [address] [place] [address]
--- OUTSIDE RECORDS SUMMARY | 2023-05-21 15:33 | XMS_ITS | Continuity of Care Document ---
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 Role Phone KENN BRENNER Primary Care Physician Encounter [facility] NBR [id number] Date(s): 12/27/22 - 12/27/22 [facility] [address] [place] [address]- Encounter Diagnosis Plantar fasciitis(Discharge Diagnosis) - 12/27/22 Plantar fascial fibromatosis(Final) - Discharge Disposition: Home or Self Care Attending Physician: Becca Edgar MD Allergies, Adverse Reactions, Alerts Substance Reaction Severity [...] Unknown Active Assessment and Plan Future Appointments Functional Status 12/27/22 Other exposure to Infectious Disease Non e [...] 11/15/14 Tu rded 1Result Comment: Unit: Unknown 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 If tolerating for 2 nights, can increase to 2 capsules at bedtime. Monitor for drowsiness., # 60 cap, 0 Refill(s), Pharmacy: [facility] Start Date: 08/14/22 Status: Ordered ibuprofen 100 mg oral tablet 200 mg = 2 tab, Oral, every 6 hr, PRN as needed for fever, # 80 tab, 1 Refill(s), Pharmacy: [facility] Start Date: 11/02/22 Status: Ordered ketotifen 0.025% ophthalmic solution 1 drops, Eye-Both, BID, # 7.5 mL, 0 Refill(s) Start Date: 08/17/22 Status: Ordered Latuda 20 mg oral tablet 20 mg = 1 tab, Oral, Daily, # 30 tab, 0 Refill(s) Start Date: 12/27/22 Status: Ordered meloxicam 7.5 mg oral tablet 7.5 mg = 1 tab, Oral, Daily, # 30 tab, 3 Refill(s), Pharmacy: [facility] Start Date: 04/27/22 Status: Ordered Nexletol 180 mg oral tablet 180 mg = 1 tab, Oral, every other day, # 45 tab, 0 Refill(s) Start Date: 10/31/22 Stop Date: 01/29/23 Status: Ordered omeprazole 20 mg oral delayed release capsule 20 mg = 1 cap, Oral, Daily, Appointment 10/29/22 , # 90 cap, 3 Refill(s), Pharmacy: [facility] Start Date: 10/16/22 Stop Date: 10/11/23 Status: Ordered Proventil HFA 90 mcg/inh inhalation aerosol QID, 2 puffs as needed, 0 Refill(s) Start Date: 04/27/22 Status: Ordered Singulair 10 mg =, Oral, Daily, 0 Refill(s) Start Date: 10/24/22 Status: Ordered Tirosint 50 mcg (0.05 mg) oral capsule 50 mcg = 1 cap, Oral, Daily, # 90 cap, 0 Refill(s), Pharmacy: [facility] Start Date: 08/23/22 Status: Ordered traZODone 150 mg oral tablet 90 EA, TAKE 1 TABLET BY MOUTH EVERY DAY AT BEDTIME, 0 Refill(s) Start Date: 04/09/22 Status: Ordered traZODone 50 mg oral tablet 50 mg = 1 tab, Oral, every night at bedtime, as needed for insomnia. In addition to 150mg., # 30 tab, 3 Refill(s), Pharmacy: [facility] Start Date: 05/16/22 Status: Ordered triamcinolone 0.025% topical cream 1 karina, Topical, Daily, # 15 g, 0 Refill(s), Pharmacy: [facility] Start Date: 08/07/22 Stop Date: 08/21/22 Status: Ordered Tylenol 8 Hour 650 mg oral tablet, extended release 650 mg = 1 tab, Oral, BID, PRN as needed for fever, # 50 tab, 1 Refill(s), Pharmacy: [facility] Start Date: 11/02/22 Status: Ordered Tylenol Extra Strength 500 mg oral tablet QID, as needed, 0 Refill(s) Start Date: 04/27/22 Status: Ordered Vagifem 10 mcg vaginal tablet 10 mcg = 1 tab, VAG, Mon/Fri, # 26 tab, 4 Refill(s), Pharmacy: [facility] Start Date: 10/25/22 Stop Date: 01/18/24 [...] Completed Surgery 2 06/2020 Completed Drainage of systems auditor y canal abscess 3 10/2016 Completed [...] unknown - indicated multiple seactions in [facility]W Vital Signs Most recent to oldest [Reference Range]: 1 2 Peripheral Pulse Rate [60-100 bpm] 74 bp m (12/27/22 3:37 PM) Respiratory Rate [12-24 br/min] 16 br/mi n (12/27/22 3:37 PM) Blood Pressure [90-140/60-90 mmHg] 140/7 6mmHg (12/27/22 4:13 PM) 178/98mmHg *HI* (12/27/22 3:37 PM) Social History Social History Type Response Tobacco Never tobacco user T obacco Use:. Sex Physician Outpatient Note * Becca Edgar MD: PERFORM Event Display: Office Clinic Note Physician Authored Date: [id number] SUNNY ESPARZA :1950 Age:72 years Sex:Female Visit Date:12/27/2022 Primary Care Physician: KENN BRENNER Chief Complaint plantar fasciitis - pt noticed 2 weeks ago and is requesting referral to PT. History of Present Illness Presents as same-day visit for left foot pain. She was being seen by women's health upstairs earlier today and stopped by this office to discuss foot pain. She has a history of plantar fasciitis in ~2012.??Symptoms flared up again ~2 weeks ago. Current symptoms feel similar to her prior flare-up. Has been trying rest, exercises, ibuprofen or naproxen PRN. Improved with physical therapy??previously. Usually uses orthotics for flat feet, but has been wearing flip flops all summer, attributes her symptoms to this. Review of Systems as per [facility] Physical Exam Vitals & Measurements HR:??74??(Peripheral)?? RR:??16?? BP:??140/76?? SpO2:??98%?? Pain Score:??8?? Gen: well-appearing, in no acute distress MSK: bilateral flattened arches,??focal tenderness of left heel, but no tenderness of Achilles tendon, arch, or toes Psych/MSE: attentive,??normal mood, appropriate affect Assessment/Plan 1.??Plantar fasciitis??M72.2 reviewed causes and treatment approaches will check X-ray to evaluate for heel spur handout given with examples of home exercises referral to PT discussed and placed avoid flip flops, always use shoes with orthotic inserts/arch supports rest, avoid prolonged time standing or walking until symptoms recover, fine to use??ibuprofen, naproxen, or topical pain creams for relief 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 Referral Orders Referral Management, Medical Service: Physical Therapy, Reason: left plantar fasiciitis vs heel spur, flare up x 2 weeks, Type: Evaluate and Treat, Start: 12/27/22, Urgent:, Instructions: [facility] PT 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 of bilateral first carpometacarpal joints Cancer screening Chronic fatigue Complication of surgical procedure Conductive hearing loss Degenerative joint disease of ankle AND/OR foot Environmental allergy Familial hypercholesterolemia Fatigue Heart murmur, systolic History of anemia History of Lyme disease History of obesity History of recurrent ear infection History of total abdominal hysterectomy History of urticaria Hypothyroidism Insomnia Localized, primary osteoarthritis of the hand Lumbosacral spondylosis without myelopathy Mixed anxiety and depressive disorder Mixed hyperlipidemia Mixed urinary incontinence Obstructive sleep apnea syndrome Osteoarthritis of foot joint Osteoarthritis of knee Osteoarthritis of left knee joint Pain of joint of knee Pain of right knee joint Restless legs Varicose veins of lower extremity Vitamin D deficiency Procedure/Surgical History ???CMCJ - Carpometacarpal joint arthroplasty of thumb (12/29/2021)???Arthroscopy of shoulder with biceps tenodesis (07/05/2020)???Surgery (06/2020)???Drainage of external auditory canal abscess (10/2016)???Procedure (11/2015)???Breast reduction (06/2014)???Balloon sinuplasty (05/2014)???Total knee arthroplasty (03/04/2012)???Hysterectomy (1991)???Appendectomy (1961)???Tonsillectomy (1961)???Birthof child??? section Medications Clarinex 5 mg oral tablet, 5 mg= 1 tab, Oral, Daily EpiPen 2-Melchor 0.3 mg injectable kit, 0.3 mg, As Directed, PRN estradiol 2 mg vaginal ring, 2 mg= 1 EA, VAG, every 3 mo, 4 refills Flonase, Nasal, PRN gabapentin 100 mg oral capsule, 200 mg= 2 cap, Oral, every evening ibuprofen 100 mg oral tablet, 200 mg= 2 tab, Oral, every 6 hr, PRN, 1 refills Kenalog-40, 40 mg, Intra-articular, Once ketotifen 0.025% ophthalmic solution, 1 drops, Eye-Both, BID Latuda 20 mg oral tablet, 20 mg= 1 tab, Oral, Daily meloxicam 7.5 mg oral tablet, 7.5 mg= 1 tab, Oral, Daily, 3 refills Nexletol 180 mg oral tablet, 180 mg= 1 tab, Oral, every other day omeprazole 20 mg oral delayed release capsule, 20 mg= 1 cap, Oral, Daily, 3 refills Proventil HFA 90 mcg/inh inhalation aerosol, QID Singulair, 10 mg, Oral, Daily Tirosint 50 mcg (0.05 mg) oral capsule, 50 mcg= 1 cap, Oral, Daily traZODone 150 mg oral tablet traZODone 50 mg oral tablet, 50 mg= 1 tab, Oral, every night at bedtime, 3 refills triamcinolone 0.025% topical cream, 1 karina, Topical, Daily Tylenol 8 Hour 650 mg oral tablet, extended release, 650 mg= 1 tab, Oral, BID, PRN, 1 refills Tylenol Extra Strength 500 mg oral tablet, QID Vagifem 10 mcg vaginal tablet, 10 mcg= 1 tab, VAG, Mon/Fri, 4 refills Vascepa 1 g oral capsule, 2 g= 2 cap, Oral, BID Vraylar 1.5 mg oral capsule, 1.5 mg= 1 cap, Oral, Daily Allergies Augmentin Sulfabenzamide/Sulfacetamide/Sulfathiazole??(Nausea) Bactrim Bees/Stinging Insects Crestor Effexor Lipitor OxyCONTIN Voltaren Zocor amoxicillin citalopram fenofibrate morphine penicillins sulfa drugs Social History Alcohol Current- Comments: 1-2 glasses of wine at night, socially moderately Electronic Cigarette/Vaping Electronic Cigarette Use: Never. Employment/School Retired Home/Environment Lives with Alone. Living situation: Home/Independent. Sexual Sexually active: Yes. Substance Use Never Tobacco Never tobacco user Tobacco Use:. Family History Arthritis: Grandmother (P). Diabetes mellitus: Grandfather (M). High cholesterol: Mother and Father. Hypertension: Mother. Osteoporosis: Mother. Parkinsons disease: Father. Family Member(s): ?? FATHER, at age: Unknown. 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: [employer] SARS-CoV-2 (COVID-19) mRNA-1273 vaccine 09/20/2021 Recorded Comments : Unit: Unknown influenza virus vaccine, inactivated 04/18/2021 Recorded Comments : Unit: Unknown SARS-CoV-2 (COVID-19) mRNA-1273 vaccine 08/31/2020 Recorded Comments : Unit: Unknown SARS-CoV-2 (COVID-19) mRNA-1273 vaccine 08/03/2020 Recorded Comments : Unit: Unknown influenza virus vaccine, inactivated 03/07/2020 Recorded Comments : Unit: Unknown hepatitis B adult vaccine 06/17/2019 Recorded zoster vaccine, inactivated 06/16/2018 Recorded zoster vaccine, inactivated 02/19/2018 Recorded tetanus/diphth/pertuss (Tdap) adult/adol 02/19/2018 Recorded typhoid vaccine, live 04/13/2017 Recorded influenza virus vaccine, inactivated 04/02/2017 Recorded Comments : Unit: Unknown hepatitis B adult vaccine 04/02/2017 Recorded hepatitis A adult vaccine 04/02/2017 Recorded zoster vaccine, inactivated 10/15/2016 Recorded tetanus/diphth/pertuss (Tdap) adult/adol 10/15/2016 Recorded tetanus/diphth/pertuss (Tdap) adult/adol 07/02/2016 Recorded zoster vaccine, inactivated 06/06/2016 Recorded influenza virus vaccine, inactivated 04/11/2015 Recorded Comments : Unit: Unknown pneumococcal 23-polyvalent vaccine 11/15/2014 Recorded Comments : Unit: Unknown hepatitis B adult vaccine 11/15/2014 Recorded hepatitis A adult vaccine 11/15/2014 Recorded Electronically Signed on 12/27/22 04:47 PM Becca Edgar MD Patient Care team information Care Team Personnel Name: KENN BRENNER Position: No Access Member Role: Primary Care Physician Address: Address: [address] [place] [id number] Name: Yasmine Strickland APRN Position: Physician Member Role: Nurse Practitioner Address: Address: [address] [place] [address] [facility] Care Team Related Persons Name: MARIANO MORENO Address: Home Name: DESEAN ESPARZA Address: Home [address] [place] [phone] [facility] Name: DESEAN ESPARZA Address: Home [address] [place] [address] [facility]
--- OUTSIDE RECORDS SUMMARY | 2023-05-21 15:33 | XMS_ITS | Continuity of Care Document ---
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 BRUNIL[facility] NBR [id number] Date(s): 05/16/22 - 05/16/22 [facility] [address], [place] [address] [[email or web address] Encounter Diagnosis Familial hypercholesterolemia(Discharge Diagnosis) - 05/16/22 Mixed anxiety and depressive disorder(Discharge Diagnosis) - 05/16/22 Chronic fatigue(Discharge Diagnosis) - 05/16/22 Screening mammogram for breast cancer(Discharge Diagnosis) - 05/16/22 Discharge Disposition: Home or Self Care Attending Physician: Mary Campbell MD Allergies, Adverse Reactions, Alerts Substance Reaction [...] Scheduled Tests Radiology* MG Mammo Screening Bilateral 05/16/22 Functional Status 05/16/22 Other exposure to Infectious Disease Non e Immunizations Given and Recorded Vaccine Date Status Refusal Reason SARS-CoV-2 mRNA-1273 bivalent booster 04/04/22 Giv en Medications Abilify 2 mg oral tablet 2 mg = 1 tab, Oral, Daily, # 30 tab, 0 Refill(s), Pharmacy: [facility] Start Date: 05/16/22 Status: Ordered Glory-D 24 Hour Allergy & Congestion 180 mg-240 mg oral tablet, extended release 1 tab, Oral, Daily, 0 Refill(s) Start Date: 05/16/22 Status: Ordered doxycycline hyclate 100 mg oral [...] Daily, # 30 tab, 3 Refill(s), Pharmacy: [facility] Start Date: 04/27/22 Status: Ordered naproxen 500 mg oral delayed release tablet BID, as needed, 0 Refill(s) Start Date: 04/27/22 Status: Ordered Niaspan ER 500 mg oral tablet, extended release 750 mg =, Oral, BID, # 100 tab, 0 Refill(s) Start Date: 04/27/22 Status: Ordered [place]-3 1000 mg oral capsule Daily, 0 Refill(s) [...] 150mg., # 30 tab, 3 Refill(s), Pharmacy: [facility] Start Date: 05/16/22 Status: Ordered Tylenol Extra Strength 500 mg oral tablet QID, as needed, 0 Refill(s) Start Date: 04/27/22 Status: Ordered Vascepa 1 g oral capsule BID, PRN as needed, 2 Unknown, 0 Refill(s) Start Date: 04/27/22 Status: Ordered Problem List Condition Confirmation Course Effective Dates Status Health Status Informant Complication of surgical procedure Confirmed Active Conductive [...] Most recent to oldest [Reference Range]: 1 Temperature Temporal Artery [36-38 Deg C ] 36.2 Deg C (05/16/22 10:11 AM) Peripheral Pulse Rate [60-100 bpm] 94 bp m (05/16/22 10:11 AM) Blood Pressure [90-140/60-90 mmHg] 152/8 2mmHg *HI* (05/16/22 10:11 AM) Weight 71.7 kg (05/16/22 10:11 AM) Weight Measured (lbs) 158.071 lb (05/16/22 10:11 AM) [place] Body Weight Calculated 53.55 kg (05/16/22 10:11 AM) Height 161.29 cm (05/16/22 10:11 AM) Height/Length Measured (inches) 63.5 inc h (05/16/22 10:11 AM) BSA Measured 1.79 m2 (05/16/22 10:11 AM) Body Mass Index 27.56 kg/m2 (05/16/22 10:11 AM) Social History Social History Type Response Tobacco Never tobacco user T obacco Use:. Sex Physician Outpatient Note * Mary Campbell MD: PERFORM Event Display: Office Clinic Note Physician Authored Date: [id number] SUNNY ESPARZA :1950 Age:72 years Sex:Female Visit Date:05/16/2022 Primary Care Physician: Mary Campbell MD Chief Complaint patient needs a referrals for consults to [facility].and [facility] Arpita Haile for [facility]., and hearing evaluattion referral to [facility] to ENT and Audiology. History of Present Illness Patient has been struggling with pain in many joints and chronic fatigue.?? She does believe that this??was worse??after she??had Lyme disease last year. ??She was treated with more than 28 days of doxycycline.?? Also did have a work- up??for other types of inflammatory arthritis that was negative with a negative ESR, ERIKA.?? She has not been chronically anemic. ??She was very slightly low on last check as she did just have a surgery.?? But otherwise has not had any issues there.? She does have a history of depression and this has been worse with the increased fatigue.?? She was seeing therapist regularly.?? Has not done well with serotonin drugs in the past.?? But does take trazodone for sleep and this has been helpful.?? Was suggested by her therapist that she get a referral??to a psychiatric petitioner.?? She denies any??suicidal or homicidal ideation. ??But is struggling??with??almost daily low mood. Physical Exam Vitals & Measurements T:??36.2?C ??(Temporal Artery)?? HR:??94??(Peripheral)?? BP:??152/82?? SpO2:??97%?? HT:??161.29??cm?? WT:??71.7??kg?? BMI:??27.56?? BSA:??1.79?? General: Alert, well-groomed Skin: Warm, no rash in exposed areas HEENT: Head normocephalic atraumatic, extraocular motions intact, external ears and nose normal Lungs: Normal respiratory effort, speaking in full sentences Heart: Regular rate Assessment/Plan 1.??Familial hypercholesterolemia??E78.01 Patient does see??a provider specifically for this as she has been intolerant of statins??and Praluent in the past. ?? 2.??Mixed anxiety and depressive disorder??F41.8 She is seeing a therapist and will place referral today to the recommended??nurse practitioner.?? She also was interested in trialing Abilify. ??She has not done well with SSRIs in the past. ??She does take trazodone to sleep??and this has been helpful.?? Warned of common side effects of Abilify??an d will watch??cholesterol and blood sugars carefully.?? Warned of rare risk of movement disorder??but we will??keep this??low-dose. Ordered: Abilify 2 mg oral tablet, 2 mg = 1 tab, Oral, Daily, # 30 tab, 0 Refill(s), [facility] ?? 3.??Chronic fatigue??R53.82 Reviewed??past work-up??in detail. ??Currently no signs of??inflammation or any active infection.??Suggest regular exercise and to continue seeing [facility]??for her painful joints. ?? 4.??Screening mammogram for breast cancer??Z12.31 Ordered: MG Mammo Screening Bilateral, 05/16/22, Routine, Reason: screening, Transport Mode: Ambulatory, Screening mammogram for breast cancer, ABN Status: Not Required ?? Orders: traZODone 50 mg oral tablet, 50 mg = 1 tab, Oral, every night at bedtime, as needed for insomnia. In addition to 150mg., # 30 tab, 3 Refill(s), Pharmacy: [facility] Future Orders MG Mammo Screening Bilateral, 05/16/22, Routine, Reason: screening, Transport Mode: Ambulatory, Screening mammogram for breast cancer, ABN Status: Not Required Referral Orders Referral Management, Medical Service: Psychiatry, Reason: Chronic depression. 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 Cancer screening Chronic fatigue Complication of surgical [...] tablet, extended release, 1 tab, Oral, Daily doxycycline hyclate 100 mg oral capsule, 100 mg= 1 cap, Oral, Daily EpiPen 2-Melchor 0.3 mg injectable kit Flonase, Nasal, PRN Kenalog-40, 40 mg, Intra-articular, Once meloxicam 7.5 mg oral tablet, 7.5 mg= 1 tab, Oral, Daily, 3 refills naproxen 500 mg oral delayed release tablet, BID Niaspan ER 500 mg oral tablet, extended release, 750 mg, Oral, BID [place]ountain [place]-3 1000 mg oral capsule, Daily Proventil HFA 90 mcg/inh inhalation aerosol, QID Sudafed 30 mg oral tablet, QID Tirosint 50 mcg (0.05 mg) oral capsule [...] Status SARS-CoV-2 mRNA-1273 bivalent booster 04/04/2022 Given Health Maintenance ?Pending??(in the next year) ?Due?Adult Wellness Exam due?05/16/22?and every 1?years ?Alcohol Use Screening due?05/16/22?and every 1?years ?Annual Wellness Visit (Medicare) due?05/16/22?and every 1?years ?Bone Density Screening due?05/16/22?and every 2?years ?Colorectal Cancer Screening due?05/16/22?Variable frequency ?Depression Screening due?05/16/22?and every 1?years ?Fall Risk Screening due?05/16/22?and every 1?years ?Glaucoma Screening due?05/16/22?and every 1?years ?Hepatitis C Screening due?05/16/22?One-time only ?Initial Preventative Physical Examination (Medicare) due?05/16/22?One-time only ?Satisfied??(in the past 1 year) ?Satisfied?Body Mass Index on?05/16/22.?Satisfied by Payal López ?Breast Cancer Screening on?03/16/22. ?Lipid Screening on?03/26/22.?Satisfied by Soni Bruce ?? Electronically Signed on 05/16/22 12:54 PM Mary Campbell MD Patient Care team information Personnel Name: Mary Campbell MD Address: Address: [address] [place] [phone]
--- OUTSIDE RECORDS SUMMARY | 2023-05-21 15:33 | XMS_ITS | Continuity of Care Document ---
Author Name Unknown Organization [facility] Ambulatory Clinics Address [address] [place] [address] Care Team Providers Care Antisqueak Chalker Name Role Phone Meimay Veronica VALDES Primary Care Physician [phone] Encounter [facility] NBR [id number] Date(s): 10/24/22 - 10/24/22 [facility] Ambulatory Clinics [address] [place] [address]- [place] Discharge Disposition: Home or Self Care Attending Physician: Nell Daugherty DO Allergies, Adverse Reactions, Alerts Substance Reaction Severity [...] BD Bone Density DEXA Axial Skeleton 11/28/22 Functional Status 10/24/22 Other exposure to Infectious Disease Non e [...] 11/15/14 Tu rded 1Result Comment: 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 2Result Comment: Unit: Unknown 3Result Comment: [...] drowsiness., # 60 cap, 0 Refill(s), Pharmacy: [id number] Start Date: 08/14/22 Status: Ordered ketotifen 0.025% ophthalmic solution 1 drops, Eye-Both, BID, # 7.5 mL, 0 Refill(s) Start Date: 08/17/22 Status: Ordered meloxicam 7.5 mg oral tablet 7.5 mg = 1 tab, Oral, Daily, # 30 tab, 3 Refill(s), Pharmacy: [facility] Start Date: 04/27/22 Status: Ordered omeprazole 20 mg oral delayed release capsule 20 mg = 1 cap, Oral, Daily, Appointment 10/29/22 , # 90 cap, 3 Refill(s), Pharmacy: [id number] Start Date: 10/16/22 Stop Date: 10/11/23 Status: Ordered Proventil HFA 90 mcg/inh inhalation aerosol QID, 2 puffs as needed, 0 Refill(s) Start Date: 04/27/22 Status: Ordered Singulair 10 mg =, Oral, Daily, 0 Refill(s) Start Date: 10/24/22 Status: Ordered Tirosint 50 mcg (0.05 mg) oral capsule 50 mcg = 1 cap, Oral, Daily, # 90 cap, 0 Refill(s), Pharmacy: [id number] Start Date: 08/23/22 Status: Ordered traZODone 150 mg oral tablet 90 EA, TAKE 1 TABLET BY MOUTH EVERY DAY AT BEDTIME, 0 Refill(s) Start Date: 04/09/22 Status: Ordered traZODone 50 mg oral tablet 50 mg = 1 tab, Oral, every night at bedtime, as needed for insomnia. In addition to 150mg., # 30 tab, 3 Refill(s), Pharmacy: [facility] Start Date: 05/16/22 Status: Ordered triamcinolone 0.025% topical cream 1 karina, Topical, Daily, # 15 g, 0 Refill(s), Pharmacy: [facility] Start Date: 08/07/22 Stop Date: 08/21/22 Status: Ordered Tylenol Extra Strength 500 mg oral tablet QID, as needed, 0 Refill(s) Start Date: 04/27/22 Status: Ordered Vagifem 10 mcg vaginal tablet 10 mcg = 1 tab, VAG, Sat////, # 65 tab, 4 Refill(s), Pharmacy: [id number] Start Date: 08/17/22 Stop Date: 11/10/23 Status: Ordered Vraylar 1.5 mg oral capsule [...] Completed Surgery 2 06/2020 Completed Drainage of technology auditor y canal abscess 3 10/2016 Completed [...] Physician Member Role: Nurse Practitioner Address: Address: [address] [place] [address] Name: Veronica Barrios APRN Position: Physician Member Role: Primary Care Physician Address: Address: [address] [place] [address] Care Team Related Persons Name: MARIANO MORENO Address: Home Name: DESEAN ESPARZA Address: Home [address] [place] [address] Name: DESEAN ESPARZA Address: [address] [id number] [facility]
--- OUTSIDE RECORDS SUMMARY | 2023-05-21 15:33 | XMS_ITS | Continuity of Care Document ---
Author Name Unknown Organization [facility] Ambulatory Clinics Address [address] [place] [address] Care Team Providers Care Eight Section Blower Name Role Phone KENN BRENNER Primary Care Physician [phone] Encounter [facility] NBR [id number] Date(s): 03/14/23 - 03/14/23 [facility] Ambulatory Clinics [address] [place] [address]- [place] Encounter Diagnosis Lumbar canal stenosis(Discharge Diagnosis) - 03/14/23 Lumbar spondylosis(Discharge Diagnosis) - 03/14/23 Facet arthropathy, lumbar(Discharge Diagnosis) - 03/14/23 Discharge Disposition: Home or Self Care Attending Physician: Nell Daugherty DO Referring Physician: KENN BRENNER Allergies, Adverse Reactions, Alerts Substance Reaction Severity Status amoxicillin Unknown Active morphine Unknown Active fenofibrate Unknown Active penicillins Unknown Active sulfa drugs Unknown Active Augmentin Moderate Active Effexor Unknown Active Bactrim Unknown Active Zocor Unknown Active Voltaren Unknown Active Sulfabenzamide/Sulfacetamide/Sulfathiazole Nausea Moderate Active Crestor Unknown Active Bees/Stinging Insects Unknown Active OxyCONTIN Unknown Active citalopram Unknown Active Lipitor Unknown Active Assessment and Plan Future Appointments Immunizations Given and Recorded Vaccine Date Status [...] 11/15/14 Tu rded 1Result Comment: 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[employer] 2Result Comment: Unit: Unknown 3Result Comment: Unit: Unknown 4Result Comment: Unit: Unknown 5Result Comment: Unit: Unknown 6Result Comment: Unit: Unknown 7Result Comment: Unit: Unknown 8Result Comment: Unit: Unknown 9Result Comment: Unit: Unknown Medications Clarinex 5 mg oral tablet 5 mg = 1 tab, Oral, Daily, 0 Refill(s) Start Date: 10/24/22 Status: Ordered doxycycline hyclate 50 mg oral tablet 30 EA, 0 Refill(s), TAKE ONE TABLET BY MOUTH EVERY DAY, 0 Refill(s) Start Date: 02/15/23 Status: Ordered EpiPen 2-Melchor 0.3 mg injectable kit 0.3 mg =, As Directed, PRN as needed for allergic reaction, as directed Injection PRN Allergic Reaction, 0 Refill(s) Start Date: 04/27/22 Status: Ordered ergocalciferol 1.25 mg (50,000 intl units) oral capsule 12 EA, 0 Refill(s), TAKE ONE CAPSULE BY MOUTH ONCE WEEKLY AT THE SAME TIME EACH WEEK, 0 Refill(s) Start Date: 02/15/23 Status: Ordered estradiol 10 mcg vaginal tablet 32 EA, 0 Refill(s), INSERT 1 TABLET VAGINALLY AT BEDTIME ON SATURDAY, SATURDAY, AND SATURDAY, 0 Refill(s) Start Date: 02/15/23 Status: Ordered Flonase Nasal, PRN as needed, 0 Refill(s) Start Date: 04/09/22 Status: Ordered ibuprofen 100 mg oral tablet 200 mg = 2 tab, Oral, every 6 hr, PRN as needed for fever, # 80 tab, 1 Refill(s), Pharmacy: [id number] Start Date: 11/02/22 Status: Ordered Nexletol 180 mg oral tablet 180 mg = 1 tab, Oral, every other day, # 45 tab, 0 Refill(s) Start Date: 10/31/22 Stop Date: 01/29/23 Status: Ordered pregabalin 50 mg oral capsule 50 mg = 1 cap, Oral, BID, Start with 1 capsule at bedtime x 2 nights. If tolerated, can increase totwice daily. After 2 weeks, if ineffective, may increase to 2 capsules (100 mg) twice daily. Monitor for drowsiness., # 60 cap, 1 Refill(s), Pharmacy: [facility] Start Date: 03/14/23 Status: Ordered Singulair 10 mg =, Oral, Daily, 0 Refill(s) Start Date: 10/24/22 Status: Ordered Tirosint 50 mcg (0.05 mg) oral capsule 50 mcg = 1 cap, Oral, Daily, # 90 cap, 0 Refill(s), Pharmacy: [id number] Start Date: 08/23/22 Status: Ordered traZODone 150 mg oral tablet 150 mg = 1 tab, Oral, every day at bedtime, # 30 tab, 0 Refill(s) Start Date: 02/15/23 Status: Ordered traZODone 150 mg oral tablet 90 EA, TAKE 1 TABLET BY MOUTH EVERY DAY AT BEDTIME, 0 Refill(s) Start Date: 04/09/22 Status: Ordered triamcinolone 0.025% topical cream 1 karina, Topical, Daily, # 15 g, 0 Refill(s), Pharmacy: [facility] Start Date: 08/07/22 Stop Date: 08/21/22 Status: Ordered Tylenol 8 Hour 650 mg oral tablet, extended release 650 mg = 1 tab, Oral, BID, PRN as needed for fever, # 50 tab, 1 Refill(s), Pharmacy: [id number] Start Date: 11/02/22 Status: Ordered Tylenol Extra Strength 500 mg oral tablet QID, as needed, 0 Refill(s) Start Date: 04/27/22 Status: Ordered Vagifem 10 mcg vaginal tablet 10 mcg = 1 tab, VAG, Sat// at bedtime, # 36 tab, 3 Refill(s), Pharmacy: [id number] Start Date: 01/08/23 Status: Ordered Vagifem 10 mcg vaginal tablet 10 mcg = 1 tab, VAG, Sat/Sat, # 26 tab, 4 Refill(s), Pharmacy: [facility] Start Date: 10/25/22 Stop Date: 01/18/24 Status: Ordered Vascepa 1 g oral capsule 2 g = 2 cap, Oral, BID, # 180 cap, 0 Refill(s) Start Date: 10/31/22 Stop Date: 01/29/23 Status: Ordered Problem List Condition Confirmation Course [...] Confirmed Active Heart murmur, systolic Confirmed Active Urinary urgency Confirmed Active Urinary incontinence Confirmed Active Varicose veins of lower extremity Confirmed Active Vitamin D deficiency Confirmed Active 1history of hysterectomy colonoscopy 03/2019 with 10 year recall. 2mammo 03/2022 Procedures Procedure Date Related Diagnosis Body Site Status CMCJ - Carpometacarpal joint arthroplasty of thumb 12/28/21 Completed Arthroscopy of shoulder with biceps tenodesis 1 07/04/20 Completed Surgery 2 06/2020 Completed Drainage of food safety auditor y canal abscess 3 10/2016 Completed [...] Temperature Temporal Artery [36-38 Deg C ] 36.1 Deg C (03/14/23 3:54 PM) Peripheral Pulse Rate [60-100 bpm] 86 bp m (03/14/23 3:54 PM) Blood Pressure [90-140/60-90 mmHg] 140/7 0mmHg (03/14/23 3:54 PM) Social History Social History Type Response Tobacco Never tobacco user T obacco Use:. Sex Female Physician Outpatient Note * Nell Daugherty, DO: MODIFY, PERFORM, MODIFY, MODIFY Event Display: Office Clinic Note Physician Authored Date: [id number] YESSENIA ESPARZA :1950 Age:73 years Sex:Female Visit Date:03/14/2023 Primary Care Physician: KENN BRENNER Chief Complaint Lower back Additional Information Had relief for the first 2 week and now back in some pain. Had 50 % of relief. No medication changes. History of Present Illness ?? 50% relief of low back for 2 weeks, not noticing as much anterior thigh discomfort with walking since RANDALL with standing and walking pain can get up to 8/10 since last visit, she started PT - 1 visit of PT so far, will be starting aquatic therapy tomorrow reports that 80% of pain is in low back vs 20% legs ?? not using naproxen - causes GI upset Tylenol not very effective Review of Systems Constitutional:?No fevers/chills Gastrointestinal:?No bowel dysfunction Genitourinary:?No bladder dysfunction Musculoskeletal:??Positive for back pain Neurological: No new weakness, no new numbness/tingling Physical Exam Vitals & Measurements T:??36.1?C ??(Temporal Artery)?? HR:??86??(Peripheral)?? BP:??140/70?? SpO2:??96%?? General: no acute distress HEENT: Facial movements symmetric Resp: Breathing comfortably, unlabored respirations Lumbar ROM: mildly limited extension with end range discomfort Facet loading positive on right, negative on left Neuro: Motor:Strength is 5 out of 5 in the lower extremities bilaterally Sensation:Intact to light touch in the lower extremities bilaterally Gait: steady, clears toes Assessment/Plan Facet arthropathy, lumbar??M47.816,??Lumbar spondylosis??M47.816 Lumbar canal stenosis??M48.061 Orders: pregabalin 50 mg oral capsule, 50 mg = 1 cap, Oral, BID, Start with 1 capsule at bedtime x 2 nights. If tolerated, can increase to twice daily. After 2 weeks, if ineffective, may increase to 2 capsules (100 mg) twice daily. Monitor for drowsiness., # 60 cap, 1 Refill(s), Pharmacy:... ?? Yessenia presents for follow-up to review her response to recent bilateral L3 transforaminal RANDALL.?? She reports about 50% relief for 2 weeks and then the pain gradually started to return.?? She had a similar response with previous interlaminar RANDALL's.?? The majority of her current pain is in the low back 80% versus 20% in the legs.?? While a component of pain is likely related to the lumbar canal stenosis??there is likely a component of facet mediated pain.?Facet loading appears positive on the right side. ??We reviewed the option to trial diagnostic lumbar medial branch blocks to determine ifcarlos eduardo is a candidate??for radiofrequency ablation??to address the low back pain. ??Risks and potential benefits??were reviewed. ??We discussed that this would not help her leg symptoms and would be mainly to??address the low back pain. ??She does have spinal stenosis and we also reviewed??surgical consult??as an option, however, with the majority of her pain being in the low back rather than the leg s, it would be best to continue with conservative measures at this time.?? We also reviewed the option to trial pregabalin.?Gabapentin made her feel tired and we discussed that similar side effects are possible with pregabalin as these two medications??are in the same class of medication,??although many patients may tolerate??one??of these medications better than the other, so it would be a reasonable option to trial pregabalin.? After reviewing options, she prefers to trial pregabalin??and if ineffective, she will consider theinjection.?? She will start pregabalin 50 mg at bedtime and was provided instructions to slowly increase??up to 100 mg twice daily??if tolerated. ??She will monitor for drowsiness, dizziness, mood changes.? She will follow-up in 6 weeks to review her response to physical therapy and pregabalin. ? 38??minutes spent in this encounter including approximately 25-minute [id number] with Yessenia??and additional time on chart review, imaging review, documentation, coordinating care. Problem List/Past Medical History Ongoing Allergic rhinitis [...] Pain of right knee joint Restless legs Urinary incontinence Urinary urgency Varicose veins of lower extremity Vitamin D deficiency Historical Procedure/Surgical History ???CMCJ - Carpometacarpal joint arthroplasty of thumb (12/29/2021)???Arthroscopy of shoulder with biceps tenodesis (07/05/2020)???Surgery (06/2020)???Drainage of external auditory canal abscess (10/2016)???Procedure (11/2015)???Breast reduction (06/2014)???Balloon sinuplasty (05/2014)???Total knee arthroplasty (03/04/2012)???Hysterectomy (1992)???Appendectomy (1961)???Tonsillectomy (1961)???Birthof child??? section Medications Clarinex 5 mg oral tablet, 5 mg= 1 tab, Oral, Daily doxycycline hyclate 50 mg oral tablet EpiPen 2-Melchor 0.3 mg injectable kit, 0.3 mg, As Directed, PRN ergocalciferol 1.25 mg (50,000 intl units) oral capsule estradiol 10 mcg vaginal tablet Flonase, Nasal, PRN ibuprofen 100 mg oral tablet, 200 mg= 2 tab, Oral, every 6 hr, PRN, 1 refills Kenalog-40, 40 mg, Intra-articular, Once Nexletol 180 mg oral tablet, 180 mg= 1 tab, Oral, every other day Singulair, 10 mg, Oral, Daily Tirosint 50 mcg (0.05 mg) oral capsule, 50 mcg= 1 cap, Oral, Daily traZODone 150 mg oral tablet, 150 mg= 1 tab, Oral, every night at bedtime traZODone 150 mg oral tablet triamcinolone 0.025% topical cream, 1 karina, Topical, Daily Tylenol 8 Hour 650 mg oral tablet, extended release, 650 mg= 1 tab, Oral, BID, PRN, 1 refills Tylenol Extra Strength 500 mg oral tablet, QID Vagifem 10 mcg vaginal tablet, 10 mcg= 1 tab, VAG, Mon/We/Fr at bedtime, 3 refills Vagifem 10 mcg vaginal tablet, 10 mcg= 1 tab, VAG, Mon/Fri, 4 refills Vascepa 1 g oral capsule, 2 g= 2 cap, Oral, BID Allergies Augmentin Sulfabenzamide/Sulfacetamide/Sulfathiazole??(Nausea) Bactrim Bees/Stinging Insects Crestor [...] FATHER, at age: Unknown. Cause of : Electronically Signed on 03/14/23 05:45 PM Nell Daugherty DO Patient Care team information Care Team Personnel Name: KENN BRENNER Position: No Access Member Role: Primary Care Physician Address: Address: [address] [place] [address] Name: Yasmine Strickland APRN Position: Physician Member Role: Nurse Practitioner Address: Address: [address] Care Team Related Persons Name: MARIANO MORENO Name: DESEAN ESPARZA Address: [address] Name: DESEAN ESPARZA Address: [address] [phone] [place]
--- OUTSIDE RECORDS SUMMARY | 2023-05-21 15:33 | XMS_ITS | Continuity of Care Document ---
Author Name Unknown Organization [facility] Ambulatory Clinics Address [address] [place] [address] Care Team Providers Care Pilot Plant Supervisor Name Role Phone Paul Barrios APRNah Liyah Primary Care Physician Encounter [facility] NBR [id number] Date(s): 11/02/22 - 11/02/22 [facility] Ambulatory Clinics [address] [place] [address]- [place] Encounter Diagnosis [facility]MC arthritis(Discharge Diagnosis) - 11/02/22 Discharge Disposition: Home or Self Care Attending Physician: Thelma Mike APRN Allergies, Adverse Reactions, Alerts Substance Reaction [...] Density DEXA Axial Skeleton 11/28/22 Functional Status 11/02/22 Other exposure to Infectious Disease Non e [...] 11/15/14 Tu rded 1Result Comment: 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[employer] 2Result Comment: Unit: Unknown 3Result Comment: [...] drowsiness., # 60 cap, 0 Refill(s), Pharmacy: [id number] Start Date: 08/14/22 Status: Ordered ibuprofen 100 mg oral tablet 200 mg = 2 tab, Oral, every 6 hr, PRN as needed for fever, # 80 tab, 1 Refill(s), Pharmacy: [id number] Start Date: 11/02/22 Status: Ordered ketotifen 0.025% ophthalmic solution 1 drops, Eye-Both, BID, # 7.5 mL, 0 Refill(s) Start Date: 08/17/22 Status: Ordered meloxicam 7.5 mg oral tablet 7.5 mg = 1 tab, Oral, Daily, # 30 tab, 3 Refill(s), Pharmacy: [facility] Start Date: 04/27/22 Status: Ordered Nexletol 180 mg oral tablet 180 mg = 1 tab, Oral, every other day, # 45 tab, 0 Refill(s) Start Date: 10/31/22 Stop Date: 01/29/23 Status: Ordered omeprazole 20 mg oral delayed release capsule 20 mg = 1 cap, Oral, Daily, Appointment 10/29/22 , # 90 cap, 3 Refill(s), Pharmacy: [id number] Start Date: 10/16/22 Stop Date: 10/11/23 Status: Ordered Proventil HFA 90 mcg/inh inhalation aerosol QID, 2 puffs as needed, 0 Refill(s) Start Date: 04/27/22 Status: Ordered Singulair 10 mg =, Oral, Daily, 0 Refill(s) Start Date: 10/24/22 Status: Ordered Tirosint 50 mcg (0.05 mg) oral capsule 50 mcg = 1 cap, Oral, Daily, # 90 cap, 0 Refill(s), Pharmacy: [id number] Start Date: 08/23/22 Status: Ordered traZODone 150 mg oral tablet 90 EA, TAKE 1 TABLET BY MOUTH EVERY DAY AT BEDTIME, 0 Refill(s) Start Date: 04/09/22 Status: Ordered traZODone 50 mg oral tablet 50 mg = 1 tab, Oral, every night at bedtime, as needed for insomnia. In addition to 150mg., # 30 tab, 3 Refill(s), Pharmacy: [facility] Start Date: 05/16/22 Status: Ordered triamcinolone 0.025% topical cream 1 karina, Topical, Daily, # 15 g, 0 Refill(s), Pharmacy: [facility] Start Date: 08/07/22 Stop Date: 08/21/22 Status: Ordered Tylenol 8 Hour 650 mg oral tablet, extended release 650 mg = 1 tab, Oral, BID, PRN as needed for fever, # 50 tab, 1 Refill(s), Pharmacy: [facility] Start Date: 11/02/22 Status: Ordered Tylenol Extra Strength 500 mg oral tablet QID, as needed, 0 Refill(s) Start Date: 04/27/22 Status: Ordered Vagifem 10 mcg vaginal tablet 10 mcg = 1 tab, VAG, Mon/Fri, # 26 tab, 4 Refill(s), Pharmacy: [facility] Start Date: 10/25/22 Stop [...] Completed Surgery 2 06/2020 Completed 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 Sex Patient Care team information Care Team Personnel Name: Yasmine Strickland APRN Position: Physician Member Role: Nurse Practitioner Address: Address: [address] [place] [address] Name: Veronica Barrios APRN Position: Physician Member Role: Primary Care Physician Address: Address: [address] [place] [id number] Care Team Related Persons Name: MARIANO MORENO Address: Home Name: DESEAN ESPARZA Address: Home [address] [place] [address] Name: DESEAN ESPARZA Address: Home [address] [place] [phone] [facility]
--- OUTSIDE RECORDS SUMMARY | 2023-05-21 15:33 | XMS_ITS | Continuity of Care Document ---
Author Name Unknown Organization [facility] Ambulatory Clinics Address [address] [place] [address] Care Team Providers Care Assistant Education Director Name Role Phone KENN BRENNER Primary Care Physician Encounter [facility] NBR [id number] Date(s): 04/24/23 - 04/24/23 [facility] Ambulatory Clinics [address] [place] [address] [place] Encounter Diagnosis Urge urinary incontinence(Discharge Diagnosis) - 04/24/23 Discharge Disposition: Home or Self Care Attending Physician: Sunita Dalal MD Allergies, Adverse Reactions, Alerts Substance Reaction Severity Status amoxicillin Unknown Active morphine Unknown Active fenofibrate Unknown Active citalopram Unknown Active penicillins Unknown Active sulfa drugs Unknown Active Augmentin Moderate Active Effexor Unknown Active Bactrim Unknown Active Zocor Unknown Active Voltaren Unknown Active Lipitor Unknown Active Crestor Unknown Active OxyCONTIN Unknown Active Bees/Stinging Insects Unknown Active Sulfabenzamide/Sulfacetamide/Sulfathiazole Nausea Moderate Active Assessment and Plan Future Appointments Immunizations [...] 11/15/14 Tu rded 1Result Comment: Unit: Unknown Pharmacist In Charge: Contacts+ 2Result Comment: Unit: Unknown 3Result Comment: Unit: Unknown 4Result Comment: Unit: Unknown 5Result Comment: Unit: Unknown 6Result Comment: Unit: Unknown 7Result Comment: Unit: Unknown 8Result Comment: Unit: Unknown 9Result Comment: Unit: Unknown Medications Clarinex 5 mg oral tablet 5 mg = 1 tab, Oral, Daily, 0 Refill(s) Start Date: 10/24/22 Status: Ordered Detrol LA 4 mg oral capsule, extended release 4 mg = 1 cap, Oral, Daily, # 30 cap, 11 Refill(s), Pharmacy: [place] Start Date: 03/28/23 Status: Ordered doxycycline hyclate 50 mg oral [...] fever, # 80 tab, 1 Refill(s), Pharmacy: [id number] Start Date: 11/02/22 Status: Ordered Nexletol 180 mg oral tablet 180 mg = 1 tab, Oral, every other day, # 45 tab, 0 Refill(s) Start Date: 10/31/22 Stop Date: 01/29/23 Status: Ordered Singulair 10 mg =, Oral, Daily, 0 Refill(s) Start Date: 10/24/22 Status: Ordered Tirosint 50 mcg (0.05 mg) oral capsule 50 mcg = 1 cap, Oral, Daily, # 90 cap, 0 Refill(s), Pharmacy: [id number] Start Date: 08/23/22 Status: Ordered traZODone [...] Daily, # 15 g, 0 Refill(s), Pharmacy: [facility] Start Date: 08/07/22 Stop Date: 08/21/22 Status: Ordered Tylenol 8 Hour 650 mg oral tablet, extended release 650 mg = 1 tab, Oral, BID, PRN as needed for fever, # 50 tab, 1 Refill(s), Pharmacy: [id number] Start Date: 11/02/22 Status: Ordered Tylenol Extra Strength 500 mg oral tablet QID, as needed, 0 Refill(s) Start Date: 04/27/22 Status: Ordered Vagifem 10 mcg vaginal tablet 10 mcg = 1 tab, VAG, Mon//Fr at bedtime, # 36 tab, 3 Refill(s), Pharmacy: [id number] Start Date: 01/08/23 Status: Ordered Vagifem 10 mcg vaginal tablet 10 mcg = 1 tab, VAG, Mon/Fri, # 26 tab, 4 Refill(s), Pharmacy: [facility] Start Date: 10/25/22 Stop Date: [...] Completed Surgery 2 06/2020 Completed 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/2016 Completed [...] unknown - indicated multiple seactions in [facility] Results Laboratory List Name Date .Urinalysis POCT 04/24/23 Most recent to oldest [Reference Range]: 1 Method of Collect POC Clean Catch *NA* (04/24/23 3:18 PM) Specific [place], Ur POC 1.010 *NA* (04/24/23 3:18 PM) Specimen Color POC [Yellow] Yellow (04/24/23 3:18 PM) Glucose, Urine POC Negative mg/dL *NA* (04/24/23 3:18 PM) Bilirubin, Urine POC [Negative] Negative (04/24/23 3:18 PM) Ketones, Urine POC [Negative mg/dL] Nega tive mg/dL (04/24/23 3:18 PM) pH, Urine POC 7.0 *NA* (04/24/23 3:18 PM) Protein, Urine POC [Negative mg/dL] Nega tive mg/dL (04/24/23 3:18 PM) Urobilinogen, Urine POC [0.2] 0.2 (04/24/23 3:18 PM) Nitrite, Urine POC [Negative] Negative (04/24/23 3:18 PM) Leuk Esterase, Urine POC [Negative] Nega tive (04/24/23 3:18 PM) Clarity, Urine POC [Clear] Clear (04/24/23 3:18 PM) Vital Signs Most recent to oldest [Reference Range]: 1 Temperature Temporal Artery [36-38 Deg C ] 35.9 Deg C *LOW* (04/24/23 1:39 PM) Peripheral Pulse Rate [60-100 bpm] 78 bp m (04/24/23 1:39 PM) Blood Pressure [90-140/60-90 mmHg] 150/9 8mmHg *HI* (04/24/23 1:39 PM) Mean Arterial Pressure, Cuff [70-110 mmH g] 115 mmHg *HI* (04/24/23 1:39 PM) Weight 73.48 kg (04/24/23 1:39 PM) Weight Measured (lbs) 161.995 lb (04/24/23 1:39 PM) Weight Dosing 73.480 kg (04/24/23 1:39 PM) [place] Body Weight Calculated 50.1 kg (04/24/23 1:39 PM) Height 157.48 cm (04/24/23 1:39 PM) Height/Length Measured (inches) 62 inch (04/24/23 1:39 PM) Body Mass Index 29.63 kg/m2 (04/24/23 1:39 PM) Social History Social History Type Response Tobacco Never tobacco user T obacco Use:. Sex Female Patient Care team information Care Team Personnel Name: KENN BRENNER Position: No Access Member Role: Primary Care Physician Address: Address: [address] [place] [address] Name: Yasmine Strickland APRN Position: Physician Member Role: Nurse Practitioner Address: Address: [address] [place] [address] Care Team Related Persons Name: MARIANO MORENO Name: DESEAN ESPARZA Address: Home [address] [place] [phone] [facility] Name: DESEAN ESPARZA Address: Home [address] [place] [phone] Address: Mailing [address] [place] [phone]
--- OUTSIDE RECORDS SUMMARY | 2023-05-21 15:33 | XMS_ITS | Continuity of Care Document ---
Author Name Unknown Organization [facility] Ambulatory Clinics Address [address] [place] [address] Care Team Providers Care Cooking Casing And Drying Supervisor Name Role Phone Mary Campbell MD Primary Care Physician [phone] Encounter 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) - 04/12/22 Trochanteric bursitis, right hip(Discharge Diagnosis) - 04/12/22 Trochanteric bursitis of left hip(Discharge Diagnosis) - 04/12/22 Primary osteoarthritis of left knee(Discharge Diagnosis) - 04/12/22 History of right knee joint replacement(Discharge Diagnosis) - 04/12/22 Osteoarthritis of lower back(Discharge Diagnosis) - 04/12/22 Discharge Disposition: Home or Self Care Attending [...] and Plan Future Appointments Future Scheduled Tests Laboratory* CBC w/ Diff 04/12/22 Functional Status 04/12/22 Recent Travel History No recent travel Other exposure to Infectious Disease Non e Immunizations Given and Recorded Vaccine Date Status Refusal Reason SARS-CoV-2 mRNA-1273 bivalent booster 04/04/22 Giv en Medications acyclovir 5% topical cream 1 karina, Topical, 5 times per day, # 5 g, 0 Refill(s), Pharmacy: [facility] Start Date: 04/10/22 Status: Ordered Glory Allergy 0 Refill(s) Start Date: 04/10/22 Status: Ordered Flonase 0 Refill(s) Start Date: 04/09/22 Status: Ordered FLUoxetine (Eqv-Prozac) 10 mg oral tablet 10 mg = 1 tab, 0 Refill(s) Start Date: 04/09/22 Status: Ordered naltrexone 50 mg oral tablet 1 tab, Oral, Daily, # 30 tab, 0 Refill(s), Pharmacy: [id number] Start Date: 03/26/22 Status: Ordered Tirosint 50 mcg (0.05 mg) oral capsule 0 Refill(s) Start Date: 04/09/22 Status: Ordered traZODone 150 mg oral tablet 90 EA, TAKE 1 TABLET BY MOUTH EVERY DAY AT BEDTIME, 0 Refill(s) Start Date: 04/09/22 Status: Ordered Problem List Condition Confirmation Course Effective Dates Status Health Status Informant Complication of surgical procedure Confirmed Active Conductive hearing loss Confirmed Active Degenerative joint disease of ankle AND/OR foot Confirmed Active Environmental allergy Confirmed Active Familial hypercholesterolemia Confirmed Active Fatigue Confirmed Active H/O: ear disorder Confirmed Active [...] Pain of right knee joint Confirmed Active Patient encounter status Confirmed Active Restless legs Confirmed Active Varicose veins of lower extremity Confirmed Active Vitamin D deficiency Confirmed Active Procedures Procedure Date Related Diagnosis Body Site Status of child Completed Vital Signs Most recent to oldest [Reference Range]: 1 Peripheral Pulse Rate [60-100 bpm] 77 bp m (04/12/22 9:25 AM) Blood Pressure [90-140/60-90 mmHg] 122/6 4mmHg (04/12/22 9:25 AM) Weight 72.12 kg (04/12/22 9:25 AM) Weight Measured (lbs) 158.997 lb (04/12/22 9:25 AM) Height 160.02 cm (04/12/22 9:25 AM) Height/Length Measured (inches) 63 inch (04/12/22 9:25 AM) BSA Measured 1.79 m2 (04/12/22 9:25 AM) Body Mass Index 28.16 kg/m2 (04/12/22 9:25 AM) Social History Social History Type Response Tobacco Never tobacco user T obacco Use:. Sex Patient Care team information Personnel Name: Mary Campbell MD Address: Address: [address] [place] [address]
--- OUTSIDE RECORDS SUMMARY | 2023-05-21 15:33 | XMS_ITS | Continuity of Care Document ---
Author Name Unknown Organization [facility] Address [address] [place] [address] Care Team Providers Care Bridge Maintenance Worker Name Role Phone Mary Campbell MD Primary Care Physician Encounter [facility] NBR [id number] Date(s): 04/27/22 - 04/27/[address] [address] Discharge Disposition: Home or Self Care Attending Physician: Ines Gross AUTO PARKER, Admitting Physician: Ines Gross APRN, Allergies, Adverse Reactions, Alerts Substance Reaction Severity [...] mRNA-1273 bivalent booster 04/04/22 Giv en Medications EpiPen 2-Melchor 0.3 mg injectable kit 0 Refill(s) Start Date: 04/27/22 Status: Ordered Flonase 0 Refill(s) Start Date: 04/09/22 Status: Ordered FLUoxetine (Eqv-Prozac) 10 mg oral tablet 10 mg = 1 tab, 0 Refill(s) Start Date: 04/09/22 Status: Ordered meloxicam 7.5 mg oral tablet 7.5 mg = 1 tab, Oral, Daily, # 30 tab, 3 Refill(s), Pharmacy: [facility] Start Date: 04/27/22 Status: Ordered naproxen 500 mg oral delayed release tablet BID, as needed, 0 Refill(s) Start Date: 04/27/22 Status: Ordered Niaspan ER 500 mg oral tablet, extended release 500 mg = 1 tab, Oral, every day at bedtime, # 100 tab, 0 Refill(s) Start Date: 04/27/22 Status: Ordered Stratford-3 1000 mg oral capsule Daily, 0 Refill(s) [...] 0 Refill(s) Start Date: 04/09/22 Status: Ordered Tylenol Extra Strength 500 mg oral tablet QID, as needed, 0 Refill(s) Start Date: 04/27/22 Status: Ordered Vascepa 1 g oral capsule BID, 2 Unknown, 0 Refill(s) Start Date: 04/27/22 [...] 03/03/12 C ompleted Hysterectomy 1991 Completed Appendectomy 1962 Completed Tonsillectomy 1961 Completed of child Completed 1Right shoulder arthroscopy w/significant intra and extra-articular debridment of torn superior labrum frayed supraspinatus and calcific deposit, biceps tenodesis, decompression Social History Social History Type Response Tobacco Never tobacco user T obacco Use:. Sex Patient Care team information Personnel Name: Mary Campbell MD Address: Address: [address] [place] [address]
--- OUTSIDE RECORDS SUMMARY | 2023-05-21 15:33 | XMS_ITS | Continuity of Care Document ---
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) - 08/07/22 Hypothyroidism(Discharge Diagnosis) - 08/07/22 Familial hypercholesterolemia(Discharge Diagnosis) - 08/07/22 Mixed anxiety and depressive disorder(Discharge Diagnosis) - 08/07/22 Vitamin deficiency(Discharge Diagnosis) - 08/07/22 Acid reflux(Discharge Diagnosis) - 08/07/22 Arthritis due to Lyme disease(Final) - Hypothyroidism, unspecified(Final) - Familial hypercholesterolemia(Final) - Other specified anxiety disorders(Final) - Vitamin deficiency, unspecified(Final) - Gastro-esophageal reflux disease without esophagitis(Final) - Discharge Disposition: Home or Self Care [...] Radiology* BD Bone Density DEXA Axial Skeleton 11/08/22 Functional Status 08/07/22 Other exposure to Infectious Disease Non e Immunizations Given and Recorded Vaccine Date Status Refusal Reason SARS-CoV-2 mRNA-1273 bivalent booster 04/04/22 Giv en Medications Glory Allergy 60 mg oral tablet 60 mg = 1 tab, Oral, Daily, 0 Refill(s) Start Date: 08/07/22 Status: Ordered Glory-D 24 Hour Allergy & Congestion 180 mg-240 mg oral tablet, extended release 1 tab, Oral, Daily, 0 Refill(s) Start Date: 05/16/22 Status: Ordered atorvastatin 80 mg oral tablet 80 mg = 1 tab, Oral, Daily, # 30 tab, 0 Refill(s) Start Date: 06/20/22 Status: Ordered EpiPen 2-Melchor 0.3 mg injectable kit 0 Refill(s) Start Date: 04/27/22 Status: Ordered Flonase Nasal, PRN as needed, 0 Refill(s) Start Date: 04/09/22 Status: Ordered meloxicam 7.5 mg oral tablet 7.5 mg = 1 tab, Oral, Daily, # 30 tab, 3 Refill(s), Pharmacy: [facility] Start Date: 04/27/22 Status: Ordered naproxen 500 mg oral delayed release tablet BID, as needed, 0 Refill(s) Start Date: 04/27/22 Status: Ordered OLANZapine 2.5 mg oral tablet 0.5 - 1 tab, Oral, Daily, # 90 tab, 0 Refill(s), Pharmacy: [facility] Start Date: 08/07/22 Status: Ordered omeprazole 20 mg oral delayed release capsule 20 mg = 1 cap, Oral, Daily, # 30 cap, 0 Refill(s), Pharmacy: [facility] Start Date: 08/07/22 Status: Ordered Proventil HFA 90 mcg/inh inhalation aerosol QID, 2 puffs as needed, 0 Refill(s) Start Date: 04/27/22 Status: Ordered Sudafed 30 mg oral tablet QID, as needed, 0 Refill(s) Start Date: 04/27/22 Status: Ordered Tirosint 50 mcg (0.05 mg) oral capsule 50 mcg = 1 cap, Oral, Daily, # 90 cap, 0 Refill(s), Pharmacy: [facility] Start Date: 08/07/22 Status: Ordered traZODone 150 mg oral tablet 90 EA, TAKE 1 TABLET BY MOUTH EVERY DAY AT BEDTIME, 0 Refill(s) Start Date: 04/09/22 Status: Ordered traZODone 50 mg oral tablet 50 mg = 1 tab, Oral, every night at bedtime, as needed for insomnia. In addition to 150mg., # 30 tab, 3 Refill(s), Pharmacy: [facility] Start Date: 05/16/22 Status: Ordered triamcinolone 0.025% topical cream 1 karina, Topical, Daily, # 15 g, 0 Refill(s), Pharmacy: [facility] Start Date: 08/07/22 Stop Date: 08/21/22 Status: Ordered Tylenol Extra Strength 500 mg oral tablet QID, as needed, 0 Refill(s) Start Date: 04/27/22 Status: Ordered Vascepa 1 g oral capsule 2 g = 2 cap, Oral, BID, PRN as needed, 2 Unknown, # 360 cap, 0 Refill(s), Pharmacy: [facility] Start Date: 08/07/22 Status: Ordered Problem List Condition Confirmation Course Effective Dates Status Health Status Informant Allergic rhinitis due to pollen Confirmed Active Arthritis of bilateral first carpometacarpal joints Confirmed Active Complication of surgical procedure Confirmed Active Conductive hearing loss Confirmed Active Degenerative joint disease of ankle AND/OR foot Confirmed Active Environmental allergy Confirmed Active Familial hypercholesterolemia Confirmed Active Fatigue Confirmed Active Chronic fatigue Confirmed Active Hypothyroidism Confirmed Active Insomnia Confirmed [...] Range]: 1 Peripheral Pulse Rate [60-100 bpm] 67 bp m (08/07/22 11:47 AM) Blood Pressure [90-140/60-90 mmHg] 140/7 8mmHg (08/07/22 11:47 AM) Weight 166.2 kg (08/07/22 11:47 AM) Weight Measured (lbs) 366.408 lb (08/07/22 11:47 AM) [place] Body Weight Calculated 52.4 kg (08/07/22 11:47 AM) Height 160.02 cm (08/07/22 11:47 AM) Height/Length Measured (inches) 63 inch (08/07/22 11:47 AM) BSA Measured 2.72 m2 (08/07/22 11:47 AM) Body Mass Index 64.91 kg/m2 (08/07/22 11:47 AM) Social History Social History Type Response Tobacco Never tobacco user T obacco Use:. Sex Physician Outpatient Note * Mary Campbell MD: PERFORM Event Display: Office Clinic Note Physician Authored Date: [id number] SUNNY ESPARZA :1950 Age:72 years Sex:Female Visit Date:08/07/2022 Primary Care Physician: Mary Campbell MD Chief Complaint 3 Month Folllow Up History of Present Illness Patient was first diagnosed and treated for Lyme disease??in January 2021.?? She had ongoing fatigueand joint pain??and so was treated with a long course??of doxycycline which she did complete??despite it causing a lot of nausea for her.?? But despite this treatment she does??have continued joint pain.?? Autoimmune arthritis work-up was negative.?? Has been seeing a field representative/health education.?? She does have follow-up with them next week??but they did tell her that??her??vitamin D and B12 were low.?? Continues with pain in many joints.?? No swelling??or fevers.?? No warmth in any specific joint.?? Just achypain. ?? Says she also??has really been struggling with her mood.?? Having low mood and anxiety.?? Has had side effect to??tricyclic's and SSRIs in the past.?? Did trial Abilify??and she did find this helpfulfor her mood. ??However, it really increased her appetite a lot??and cause some stomach upset??so she did stop this.?? But she did find it helpful. ?? Also, for the last few months she has been having issues with??some acid reflux symptoms. ??It is fairly new and she does not normally have chronic acid reflux.?? Just once or twice a day she is getting??sort of a burning uncomfortable sensation in her epigastric region. ??Also having some early satiation.?? She does not drink much alcohol but when she does it does make it worse.?? Same with coffee.?? Blood in stool or melena. Physical Exam Vitals & Measurements HR:??67??(Peripheral)?? BP:??140/78?? SpO2:??96%?? HT:??160.02??cm?? WT:??166.2??kg?? BMI:??64.91?? BSA:??2.72?? General: Alert and oriented, well nourished, no acute distress. Lungs: Clear to auscultation, non-labored respiration. Heart: Normal rate, regular rhythm, no murmur Psychiatric: Cooperative, appropriate mood and affect. 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 2.??Hypothyroidism??E03.9 Patient believes TSH was checked on recent labs. 3.??Familial hypercholesterolemia??E78.01 Patient is seeing cardiology??for this as she is statin intolerant. 4.??Mixed anxiety and depressive disorder??F41.8 Patient did have side effect with Abilify but did find it helpful for her mood. ??So will instead trial low-dose olanzapine. ??Patient again??warned of common side effects of this??class of medications??and to discontinue right away??and let us know if she does have any worsening mood. 5.??Vitamin deficiency??E56.9 Told by her field representative/health education that her vitamin D??and B12 are low.?? These were checked last November and theywere both normal.?? So I request??that she??give us a copy of the labs??and if they are in the low then we can treat for this. 6.??Acid reflux??K21.9 Few months??and not??consistent. ??We will trial a few weeks of PPI??and she is to let us know if??that does not fix the problem.?? Explained she should go to ER if she does have any blood in stool or melena. Orders: Vascepa 1 g oral capsule, 2 g = 2 cap, Oral, BID, PRN as needed, 2 Unknown, # 360 cap, 0 Refill(s),Pharmacy: [facility] Tirosint 50 mcg (0.05 mg) oral capsule, 50 mcg = 1 cap, Oral, Daily, # 90 cap, 0 Refill(s), Pharmacy: [facility] OLANZapine 2.5 mg oral tablet, 0.5 - 1 tab, Oral, Daily, # 90 tab, 0 Refill(s), Pharmacy: [facility] omeprazole 20 mg oral delayed release capsule, 20 mg = 1 cap, Oral, Daily, # 30 cap, 0 Refill(s), Pharmacy: [facility] triamcinolone 0.025% topical cream, 1 karina, Topical, Daily, # 15 g, 0 Refill(s), Pharmacy: [facility] Referral Orders Referral Management, Medical Service: Rheumatology, Reason: Lyme positive and treated with 6 weeks of doxycycline. Continued pain in multiple joints. ERIKA, RF negative, Start: 08/07/22, Instructions: [facility] rheum 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 of bilateral first carpometacarpal joints Cancer screening Chronic fatigue Complication of surgical procedure Conductive hearing loss Degenerative joint disease of ankle AND/OR foot Environmental allergy Familial hypercholesterolemia Fatigue Hypothyroidism Insomnia Localized, primary osteoarthritis of the [...] tenodesis (07/05/2020)???Breast reduction (06/2014)???Total knee arthroplasty (03/04/2012)???Hysterectomy (1992)???Appendectomy (1961)???Tonsillectomy (1961)??? of child Medications Glory Allergy 60 mg oral tablet, 60 mg= 1 tab, Oral, Daily Glory-D 24 Hour Allergy & Congestion 180 mg-240 mg oral tablet, extended release, 1 tab, Oral, Daily atorvastatin 80 mg oral tablet, 80 mg= 1 tab, Oral, Daily EpiPen 2-Melchor 0.3 mg injectable kit Flonase, Nasal, PRN Kenalog-40, 40 mg, Intra-articular, Once meloxicam 7.5 mg oral tablet, 7.5 mg= 1 tab, Oral, Daily, 3 refills naproxen 500 mg oral delayed release tablet, BID OLANZapine 2.5 mg oral tablet, 0.5 - 1 tab, Oral, Daily omeprazole 20 mg oral delayed release capsule, 20 mg= 1 cap, Oral, Daily Proventil HFA 90 mcg/inh inhalation aerosol, QID Sudafed 30 mg oral tablet, QID Tirosint 50 mcg (0.05 mg) oral capsule, 50 mcg= 1 cap, Oral, Daily traZODone 150 mg oral tablet traZODone 50 mg oral tablet, 50 mg= 1 tab, Oral, every night at bedtime, 3 refills triamcinolone 0.025% topical cream, 1 karina, Topical, Daily Tylenol Extra Strength 500 mg oral tablet, QID Vascepa 1 g oral capsule, 2 g= 2 cap, Oral, BID, PRN Allergies Augmentin Sulfabenzamide/Sulfacetamide/Sulfathiazole??(Nausea) Bactrim Bees/Stinging Insects Crestor Effexor Lipitor OxyCONTIN Voltaren Zocor amoxicillin citalopram fenofibrate morphine penicillins sulfa drugs Social History Alcohol Current- Comments: moderately Electronic Cigarette/Vaping Electronic Cigarette Use: Never. Tobacco Never tobacco user Tobacco Use:. Family History Arthritis: Grandmother (P). Diabetes mellitus: Grandfather (M). High cholesterol: Mother and Father. Hypertension: Mother. Osteoporosis: Mother. Immunizations Vaccine Date Status SARS-CoV-2 mRNA-1273 bivalent booster 04/04/2022 Given Electronically Signed on 08/07/22 12:55 PM Mary Campbell MD Patient Care team information Care Team Personnel Name: Yasmine Batista APRN Position: Physician Member Role: Nurse Practitioner Address: Address: [address] [place] [address] Name: Mary Campbell MD Position: Physician Member Role: Primary Care Physician Address: Address: [address] [place] [address] Care Team Related Persons Name: MARIANO MORENO Address: Home
--- OUTSIDE RECORDS SUMMARY | 2023-05-21 15:33 | XMS_ITS | Continuity of Care Document ---
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 Operator Name Role Phone KENN BRENNER Primary Care Physician Encounter [facility] NBR [id number] Date(s): 02/15/23 - 02/15/23 [facility] Ambulatory Clinics [address] [place], [place] [address] Encounter Diagnosis Arthritis of carpometacarpal (CMC) joint of both thumbs(Discharge Diagnosis) - 02/15/23 Discharge Disposition: Home or Self Care Attending Physician: Thelma Mike APRN Referring Physician: KENN BRENNER Allergies, Adverse Reactions, [...] 11/15/14 Tu rded 1Result Comment: Unit: Unknown 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: [employer] 2Result Comment: Unit: Unknown 3Result Comment: Unit: Unknown 4Result Comment: Unit: Unknown 5Result Comment: Unit: Unknown 6Result Comment: Unit: Unknown 7Result Comment: Unit: Unknown 8Result Comment: Unit: Unknown 9Result Comment: Unit: Unknown Medications Clarinex 5 mg oral tablet 5 mg = 1 tab, Oral, Daily, 0 Refill(s) Start Date: 10/24/22 Status: Ordered Contrave 8 mg-90 mg oral tablet, extended release 60 EA, 0 Refill(s), TAKE 1 TABLET BY MOUTH EVERY MORNING FOR 7 DAYS THEN INCREASE TO 1 TABLET TWO TIMES A DAY, 0 Refill(s) Start Date: 02/15/23 Status: Ordered doxycycline hyclate 50 mg oral [...] fever, # 80 tab, 1 Refill(s), Pharmacy: [id number] Start Date: 11/02/22 Status: Ordered Nexletol [...] Daily, # 90 cap, 0 Refill(s), Pharmacy: [id number] Start Date: 08/23/22 Status: Ordered traZODone [...] fever, # 50 tab, 1 Refill(s), Pharmacy: [id number] Start Date: 11/02/22 Status: Ordered Tylenol Extra Strength 500 mg oral tablet QID, as needed, 0 Refill(s) Start Date: 04/27/22 Status: Ordered Vagifem 10 mcg vaginal tablet 10 mcg = 1 tab, VAG, Mon//Fr at bedtime, # 36 tab, 3 Refill(s), Pharmacy: [id number] Start Date: 01/08/23 Status: Ordered Vagifem 10 mcg vaginal tablet 10 mcg = 1 tab, VAG, Sat/Sat, # 26 tab, 4 Refill(s), [facility] [...] Completed Surgery 2 06/2020 Completed Drainage of 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 Sex Female Physician Outpatient Note * Thelma Mike, PERSONAL SERVICE WORKERS: PERFORM Event Display: Office Clinic Note Physician Authored Date: [id number] YESSENIA ESPARZA :1950 Age:73 years Sex:Female Visit Date:02/15/2023 Primary Care Physician: KENN BRENNER Chief Complaint left wrist and thumb pain History of Present Illness Yessenia is a pleasant??72 year old female who presents for re-evaluation of bilateral thumb pain. Last year she underwent a CMC arthroplasty by Dr. Sheriff on the right which she states required revision surgery soon after the initial procedure due to infection. I unfortunately cannot view these notes. She states she completed therapy as she was supposed to however never became pain free. This sideis better than prior to surgery, pinch strength has improved but does remain painful most days. Theleft thumb has been painful for many years and is also related to CMC arthritis. She has pain most days worse with use.?? At last evaluation on 11/05/22 we attempted bilateral CMC CSI after approval from Dr. Sheriff to inject surgical site. She states she has noticed improvement since this and is hopeful for repeat CSI today. She did not get relief from the bracing as she could not tolerate them. She is due to start hand therapy soon. She denies previous injury to either hand and denies surgery on the left. She is right hand dominant. Review of Systems Constitutional:?No??fevers,?No??chills,?No??sweats Respiratory:?No??shortness of breath,?No??cough Cardiovascular:?No??Chest pain,?No??palpitations,?No??syncope Gastrointestinal:?Nonausea,?No??vomiting,?No??diarrhea Ba/Lymph:?No??bruising tendency,?No??swollen lymph glands Musculoskeletal:??No??back pain,??No??neck pain,??Positive for??joint pain,??No??muscle pain,??No??decreased range of motion Integumentary:?No??rash,?No??pruritus,?No??abrasions Neurologic: Alert & oriented X 4 Physical Exam Vitals & Measurements HR:??68??(Peripheral)?? BP:??142/80?? SpO2:??97%?? HT:??157.48??cm?? WT:??73.48??kg?? BMI:??29.63?? Pain Score:??3?? BSA:??1.79?? The patient is well dressed, well groomed and appearing stated age in NAD. Focused exam of bilateral hands reveals no deformity.Skin is intact without erythema, warmth or drainage. Thumb opposition is intact. Both hands can make composite firsts with ease. CMC grind is positive on the left. Flor testing is negative bilaterally. No tenderness to the wrist, hands of thumbs. There are 2+ radial pulses and brisk capillary refills. Procedure Risks, benefits and alternatives to this injection are discussed with the patient, verbal consent was obtained. ??Under standard, sterile technique, the base of the left thumb overlying the CMC jointis meticulously prepped with alcohol x3. ??Then 40 mg of Kenalog combined with 1% lidocaine plain is injected without difficulty.?? The patient tolerated the injection very well and a dry, sterile bandage is applied.?? Postinjection instructions are provided. Assessment/Plan 1.??Arthritis of carpometacarpal (CMC) joint of both thumbs??M18.0 Yessenia is presenting for evaluation of bilateral thumb pain. She had a CMC arthroplasty by Dr. Sheriff last year on the right and states her right is better than pre-operative but remains painful mostdays. The left has the same pain worse with activity but she is not ready for surgical intervention.?? She is hoping for CSI again today as she did get relief from this at last evaluation however we discussed importance of limiting CSI especially in surgical side and she verbalizes understanding. CSI completed without incident on the left. Leonel is due to start hand therapy soon which I think willbe??beneficial for her. She will follow up on an as needed basis regarding the hands and is encouraged to contact the office at any time with questions or needs. ?? Ordered: Kenalog-40, 40 mg, Intra-articular, Once, First Dose: 02/15/23 14:09:00 EDT, Stop Date: 02/15/23 14:09:00 EDT, Physician Stop, Routine ?? 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: [employer] SARS-CoV-2 (COVID-19) mRNA-1273 vaccine 09/20/2021 [...] adult vaccine 11/15/2014 Recorded Electronically Signed on 02/15/23 03:05 PM Thelma Mike APRN Patient Care team information Care Team Personnel Name: KENN BRENNER Position: No Access Member Role: Primary Care Physician Address: Address: [address] [place] [address] Name: Yasmine Strickland APRN Position: Physician Member Role: Nurse Practitioner Address: Address: [address] [place] [address] Care Team Related Persons Name: MARIANO MORENO Address: Home Name: DESEAN ESPARZA Address: Home [address] [place] [phone] [facility] Name: DESEAN ESPARZA Address: Home [address] [place] [id number] [facility]
--- OUTSIDE RECORDS SUMMARY | 2023-05-21 15:33 | XMS_ITS | Continuity of Care Document ---
Author Name Unknown Organization [facility] Address [address] [place] [address] Care Team Providers Care Healthcare Associate Name Role Phone Mary Campbell MD Primary Care Physician [phone] Encounter [facility] NBR [id number] Date(s): 04/12/22 - 04/12/[address] [address] Discharge Disposition: Home or Self Care Attending Physician: Yasmine Batista APRN Admitting Physician: Yasmine Batista APRN Referring Physician: Yasmine Batsita APRN Allergies, Adverse Reactions, Alerts Substance Reaction [...] Scheduled Tests Laboratory* CBC w/ Diff 04/12/22 Immunizations Given and Recorded Vaccine Date Status Refusal Reason SARS-CoV-2 mRNA-1273 bivalent booster 04/04/22 Giv en Medications acyclovir 5% topical cream 1 karina, Topical, 5 times per day, # 5 g, 0 Refill(s), Pharmacy: [facility] Start Date: 04/10/22 Status: Ordered Glory Allergy 0 Refill(s) Start Date: 04/10/22 Status: Ordered Flonase 0 Refill(s) Start Date: 04/09/22 Status: Ordered FLUoxetine (Eqv-Prozac) 10 mg oral tablet 10 mg = 1 tab, 0 Refill(s) Start Date: 04/09/22 Status: Ordered naltrexone 50 mg oral tablet 1 tab, Oral, Daily, # 30 tab, 0 Refill(s), [id number] Start Date: 03/26/22 Status: Ordered Tirosint 50 [...] Diagnosis Body Site Status of child Completed Results Radiology Reports * Exam Date Time Procedure Performing Provider Status 04/12/22 9:20 AM XR Knee Complete 4+ Views Left Louis tucker, Jodie; Auth (Verified) Notes: (XR Knee Complete 4+ Views Left) Reason For Exam: knee pain left XR Knee Complete 4+ Views Left EXAM DESCRIPTION: XR Knee Complete 4+ Views Left 04/12/2022 INDICATION: KNEE PAIN LEFT COMPARISON: 02/27/2021 FINDINGS: No acute fracture, dislocation or bone destructive process. Joint spaces are maintained. No radiographic foreign bodies are seen. IMPRESSION: 1. No acute fracture, dislocation or bone destructive process. JOB #: [id number] Final Signed by: Carlos Martinez MD Signed (Electronic Signature): 04/12/2022 9:29 am * Exam Date Time Procedure Performing Provider Status 04/12/22 9:20 AM XR Knee Complete 4+ Views Right Jodie Dunaway; Auth (Verified) Notes: (XR Knee Complete 4+ Views Right) Reason For Exam: knee pain XR Knee Complete 4+ Views Right EXAM DESCRIPTION: XR Knee Complete 4+ Views Right 04/12/2022 INDICATION: KNEE PAIN COMPARISON: 02/27/2021 IMPRESSION: Status post right total knee arthroplasty with stable satisfactory appearance. No focal lytic or destructive changes. No acute fracture or dislocation. JOB #: [id number] Final Signed by: Carlos Martinez MD Signed (Electronic Signature): 04/12/2022 9:29 am * Exam Date Time Procedure Performing Provider Status 04/12/22 9:20 AM XR Hips 2 Views w/AP Pelvis Bilat Jodie Naylor; Auth (Verified) Notes: (XR Hips 2 Views w/AP Pelvis Bilat) Reason For Exam: hip pain XR Hips 2 Views w/AP Pelvis Bilat EXAM DESCRIPTION: XR Hips 2 Views w/AP Pelvis Bilat 04/12/2022 INDICATION: HIP PAIN TECHNIQUE: Pelvis and bilateral hips, five views COMPARISON: None IMPRESSION: No acute fracture or dislocation. SI joints appear symmetric and pubic symphysis appears intact. No significant hip arthritic changes. Hip joint spaces are well maintained No focal lytic or sclerotic lesion. JOB #: [id number] Final Signed by: Carlos Martinez MD Signed (Electronic Signature): 04/12/2022 9:28 am * Exam Date Time Procedure Performing Provider Status 04/12/22 9:20 AM XR Spine Lumbosacral 2 or 3 Views Jodie Naylor; Auth (Verified) Notes: (XR Spine Lumbosacral 2 or 3 Views) Reason For Exam: back pain XR Spine Lumbosacral 2 or 3 Views EXAM DESCRIPTION: XR Spine Lumbosacral 2 or 3 Views 04/12/2022 INDICATION: BACK PAIN COMPARISON: 04/02/2018 IMPRESSION: No acute fracture. Grade 1 spondylolisthesis at L5-S1 with grade 1 anterolisthesis at L4-5. Mild retrolisthesis at L1-2 and L2-3. Mild levoscoliosis, worse since prior study. Spondylotic changes throughout the lumbar spine and visualized lower thoracic spine with intervertebral disc space narrowing and endplate osteophyte formation, worse since prior study. SI joints appear symmetric. JOB #: [id number] Final Signed by: Carlos Martinez MD Signed (Electronic Signature): 04/12/2022 9:27 am Social History Social History Type Response Tobacco Never tobacco user T obacco Use:. Sex XR Spine Lumbar and Sacrum GE 2 Views * Carlos Martinez MD: VERIFY, VERIFY Event Display: Report EXAM DESCRIPTION: XR Spine Lumbosacral 2 or 3 Views 04/12/2022 INDICATION: BACK PAIN COMPARISON: 04/02/2018 IMPRESSION: No acute fracture. Grade 1 spondylolisthesis at L5-S1 with grade 1 anterolisthesis at L4-5. Mild retrolisthesis at L1-2 and L2-3. Mild levoscoliosis, worse since prior study. Spondylotic changes throughout the lumbar spine and visualized lower thoracic spine with intervertebral disc space narrowing and endplate osteophyte formation, worse since prior study. SI joints appear symmetric. JOB #: [id number] Final Signed by: Carlos Martinez MD Signed (Electronic Signature): 04/12/2022 9:27 am XR Pelvis and Hip - bilateral Views * Carlos Martinez MD: VERIFY, VERIFY Event Display: Report EXAM DESCRIPTION: XR Hips 2 Views w/AP Pelvis Bilat 04/12/2022 INDICATION: HIP PAIN TECHNIQUE: Pelvis and bilateral hips, five views COMPARISON: None IMPRESSION: No acute fracture or dislocation. SI joints appear symmetric and pubic symphysis appears intact. No significant hip arthritic changes. Hip joint spaces are well maintained No focal lytic or sclerotic lesion. JOB #: [id number] Final Signed by: Carlos Martinez MD Signed (Electronic Signature): 04/12/2022 9:28 am XR Knee - right GE 4 Views * Carlos Martinez MD: VERIFY, VERIFY Event Display: Report EXAM DESCRIPTION: XR Knee Complete 4+ Views Right 04/12/2022 INDICATION: KNEE PAIN COMPARISON: 02/27/2021 IMPRESSION: Status post right total knee arthroplasty with stable satisfactory appearance. No focal lytic or destructive changes. No acute fracture or dislocation. JOB #: [id number] Final Signed by: Carlos Martinez MD Signed (Electronic Signature): 04/12/2022 9:29 am XR Knee - left GE 4 Views * Carlos Martinez MD: VERIFY, VERIFY Event Display: Report EXAM DESCRIPTION: XR Knee Complete 4+ Views Left 04/12/2022 INDICATION: KNEE PAIN LEFT COMPARISON: 02/27/2021 FINDINGS: No acute fracture, dislocation or bone destructive process. Joint spaces are maintained. No radiographic foreign bodies are seen. IMPRESSION: 1. No acute fracture, dislocation or bone destructive process. JOB #: [id number] Final Signed by: Carlos Martinez MD Signed (Electronic Signature): 04/12/2022 9:29 am Patient Care team information Personnel Name: Mary Campbell MD Address: Address: [address] [place] [address]
--- OUTSIDE RECORDS SUMMARY | 2023-05-21 15:33 | XMS_ITS | Continuity of Care Document ---
Author Name Unknown Organization [facility] Address [address] [place] [address] Care Team Providers Care Orthodontist Assistant Name Role Phone KENN BRENNER Primary Care Physician [phone] Encounter [facility] NBR [id number] Date(s): 12/27/22 - 12/27/[address] [address] Discharge Disposition: Home or Self Care Attending Physician: Becca Edgar MD Admitting Physician: Becca Edgar MD Referring Physician: KENN BRENNER Allergies, Adverse Reactions, [...] 11/15/14 Tu rded 1Result Comment: Unit: Unknown Lift Supervisor: Auth0 2Result Comment: Unit: Unknown 3Result Comment: Unit: [...] # 1 EA, 4 Refill(s), Pharmacy: [facility] Start Date: 12/27/22 Stop Date: 03/21/24 Status: Ordered Flonase Nasal, PRN as needed, 0 Refill(s) Start Date: 04/09/22 Status: Ordered gabapentin 100 mg oral capsule 200 mg = 2 cap, Oral, every evening, Start with 1 capsule at bedtime. If tolerating for 2 nights, can increase to 2 capsules at bedtime. Monitor for drowsiness., # 60 cap, 0 Refill(s), Pharmacy: [facility] Start Date: 08/14/22 Status: Ordered ibuprofen 100 mg oral tablet 200 mg = 2 tab, Oral, every 6 hr, PRN as needed for fever, # 80 tab, 1 Refill(s), Pharmacy: [facility] Start Date: 11/02/22 Status: Ordered ketotifen [...] Daily, # 30 tab, 3 Refill(s), Pharmacy: [facility] Start Date: 04/27/22 Status: Ordered Nexletol 180 mg oral tablet 180 mg = 1 tab, Oral, every other day, # 45 tab, 0 Refill(s) Start Date: 10/31/22 Stop Date: 01/29/23 Status: Ordered omeprazole 20 mg oral delayed release capsule 20 mg = 1 cap, Oral, Daily, Appointment 10/29/22 , # 90 cap, 3 Refill(s), Pharmacy: [facility] Start Date: 10/16/22 Stop Date: 10/11/23 Status: Ordered Proventil HFA 90 mcg/inh inhalation aerosol QID, 2 puffs as needed, 0 Refill(s) Start Date: 04/27/22 Status: Ordered Singulair 10 mg =, Oral, Daily, 0 Refill(s) Start Date: 10/24/22 Status: Ordered Tirosint 50 mcg (0.05 mg) oral capsule 50 mcg = 1 cap, Oral, Daily, # 90 cap, 0 Refill(s), Pharmacy: [facility] Start Date: 08/23/22 Status: Ordered traZODone 150 mg oral tablet 90 EA, TAKE 1 TABLET BY MOUTH EVERY DAY AT BEDTIME, 0 Refill(s) Start Date: 04/09/22 Status: Ordered traZODone 50 mg oral tablet 50 mg = 1 tab, Oral, every night at bedtime, as needed for insomnia. In addition to 150mg., # 30 tab, 3 Refill(s), Pharmacy: [facility] Start Date: 05/16/22 Status: Ordered triamcinolone 0.025% topical cream 1 karina, Topical, Daily, # 15 g, 0 Refill(s), Pharmacy: [facility] Start Date: 08/07/22 Stop Date: 08/21/22 Status: Ordered Tylenol 8 Hour 650 mg oral tablet, extended release 650 mg = 1 tab, Oral, BID, PRN as needed for fever, # 50 tab, 1 Refill(s), Pharmacy: [facility] Start Date: 11/02/22 Status: Ordered Tylenol Extra Strength 500 mg oral tablet QID, as needed, 0 Refill(s) Start Date: 04/27/22 Status: Ordered Vagifem 10 mcg vaginal tablet 10 mcg = 1 tab, VAG, Mon/Fri, # 26 tab, 4 Refill(s), Pharmacy: [facility] Start Date: 10/25/22 [...] Completed Surgery 2 06/2020 Completed Drainage of recovery auditor y canal abscess 3 10/2016 Completed [...] Member Role: Primary Care Physician Address: Address: [address] Name: Yasmine Strickland APRN Position: Physician Member Role: Nurse Practitioner Address: Address: [address] [place], [place] [address] Care Team Related Persons Name: MARIANO MORENO Address: Home Name: DESEAN ESPARZA Address: Home [address] [place], [place] [id number] [facility] Name: DESEAN ESPARZA Address: Home [address] [place] [address] [facility]
--- OUTSIDE RECORDS SUMMARY | 2023-05-21 15:33 | XMS_ITS | Continuity of Care Document ---
Author Name Unknown Organization [facility] Ambulatory Clinics Address [address] [place] [address] Care Team Providers Care Operations Trainer Name Role Phone Denis Paul VALDESah Liyah Primary Care Physician [phone] Encounter [facility] NBR [id number] Date(s): 08/14/22 - 08/14/22 [facility] Ambulatory Clinics [address] [place] [address] [place] Discharge Disposition: Home or Self Care Attending Physician: Félix Newton DO Allergies, Adverse Reactions, Alerts Substance Reaction [...] BD Bone Density DEXA Axial Skeleton 11/08/22 * MRI Spine Lumbar w/o Contrast 08/14/22 Immunizations Given and Recorded Vaccine Date Status [...] drowsiness., # 60 cap, 0 Refill(s), Pharmacy: [facility] Start Date: 08/14/22 Status: Ordered meloxicam 7.5 mg oral tablet 7.5 mg = 1 tab, Oral, Daily, # 30 tab, 3 Refill(s), Pharmacy: [facility] Start Date: 04/27/22 Status: Ordered naproxen 500 mg oral delayed release tablet BID, as needed, 0 Refill(s) Start Date: 04/27/22 Status: Ordered OLANZapine 2.5 mg oral tablet 0.5 - 1 tab, Oral, Daily, # 90 tab, 0 Refill(s), Pharmacy: [facility] Start Date: 08/07/22 Status: Ordered omeprazole 20 mg oral delayed release capsule 20 mg = 1 cap, Oral, Daily, # 30 cap, 0 Refill(s), Pharmacy: [facility] Start Date: 08/07/22 Status: Ordered Proventil HFA 90 mcg/inh inhalation aerosol QID, 2 puffs as needed, 0 Refill(s) Start Date: 04/27/22 Status: Ordered Sudafed 30 mg oral tablet QID, as needed, 0 Refill(s) Start Date: 04/27/22 Status: Ordered Tirosint 50 mcg (0.05 mg) oral capsule 50 mcg = 1 cap, Oral, Daily, # 90 cap, 0 Refill(s), Pharmacy: [facility] Start Date: 08/07/22 Status: Ordered traZODone 150 mg oral tablet 90 EA, TAKE 1 TABLET BY MOUTH EVERY DAY AT BEDTIME, 0 Refill(s) Start Date: 04/09/22 Status: Ordered traZODone 50 mg oral tablet 50 mg = 1 tab, Oral, every night at bedtime, as needed for insomnia. In addition to 150mg., # 30 tab, 3 Refill(s), Pharmacy: [facility] Start Date: 05/16/22 Status: Ordered triamcinolone 0.025% topical cream 1 karina, Topical, Daily, # 15 g, 0 Refill(s), Pharmacy: [facility] Start Date: 08/07/22 Stop Date: 08/21/22 Status: Ordered Tylenol Extra Strength 500 mg oral tablet QID, as needed, 0 Refill(s) Start Date: 04/27/22 Status: Ordered Vascepa 1 g oral capsule 2 g = 2 cap, Oral, BID, PRN as needed, 2 Unknown, # 360 cap, 0 Refill(s), Pharmacy: [facility] Start Date: 08/07/22 Status: [...] Physician Member Role: Nurse Practitioner Address: Address: [address] [place] [address] Name: Veronica Barrios APRN Position: Physician Member Role: Primary Care Physician Address: Address: [address] [place] [phone] [place] Care Team Related Persons Name: MARIANO MORENO Address: Home
--- OUTSIDE RECORDS SUMMARY | 2023-05-21 15:34 | XMS_ITS | Continuity of Care Document ---
Author Name Unknown Organization [facility] Address [address] [place] [address] Care Team Providers Care Extrusion Press Supervisor Name Role Phone Mary Campbell MD Primary Care Physician Encounter [facility] NBR [id number] Date(s): 03/26/22 - 03/26/22 [facility] [address] [place] [address] [place] Discharge Disposition: Home or Self Care Attending Physician: DR. KALEIGH ALEXANDRE Admitting Physician: DR. KALEIGH ALEXANDRE Referring Physician: DR. KALEIGH ALEXANDRE Assessment and Plan Future Appointments Diagnostic Tests Pending * Miscellaneous Testing LC 03/26/22 Future Scheduled Tests Radiology* MG Mammo Screening Bilateral 04/10/22 Medications estradiol 0.5 mg oral tablet 1 Unknown, 0 Refill(s) Start Date: 03/26/22 Status: Ordered naltrexone 50 mg oral tablet 1 tab, Oral, Daily, # 30 tab, 0 Refill(s), Pharmacy: [facility] #[id number] Start Date: 03/26/22 Status: Ordered Results Laboratory List Name Date Lipid Panel 03/26/22 Uric Acid 03/26/22 Most recent to oldest [Reference Range]: 1 Cholesterol Total [129-209 mg/dL] 269 mg /dL *HI* (03/26/22 9:53 AM) LDL 158.4 *NA* (03/26/22 9:53 AM) HDL [40-80 mg/dL] 70 mg/dL (03/26/22 9:53 AM) Chol/HDL 3.8 *NA* (03/26/22 9:53 AM) Triglycerides [10-150 mg/dL] 202 mg/dL *HI* (03/26/22 9:53 AM) Uric Acid [2.6-7.2 mg/dL] 6.1 mg/dL (03/26/22 9:53 AM) Social History Social History Type Response Tobacco Never tobacco user T obacco Use:. Sex Patient Care team information Personnel Name: Mary Campbell MD Address: Address: [address] [place] [address]
--- OUTSIDE RECORDS SUMMARY | 2023-05-21 15:34 | XMS_ITS | Continuity of Care Document ---
Author Name Unknown Organization [facility] Ambulatory Clinics Address [address] [place] [address] Care Team Providers Care Associate Automation Engineer Name Role Phone KENN BRENNER Primary Care Physician Encounter [facility] NBR [id number] Date(s): 01/16/23 - 01/16/23 [facility] Ambulatory Clinics [address] [place] [address] [place] Encounter Diagnosis Urinary incontinence(Discharge Diagnosis) - 01/16/23 Urinary urgency(Discharge Diagnosis) - 01/16/23 Discharge Disposition: Home or Self Care Attending [...] Unknown Active Assessment and Plan Future Appointments Diagnostic Tests Pending * .Urinalysis POCT 01/16/23 Functional Status 01/16/23 Family Member Travel History No recent t ravel Recent Travel History No recent travel Other [...] 11/15/14 Tu rded 1Result Comment: Unit: Unknown Proofer: [employer] 2Result Comment: Unit: Unknown 3Result Comment: [...] fever, # 80 tab, 1 Refill(s), Pharmacy: [id number] Start Date: 11/02/22 Status: Ordered ketotifen [...] Daily, # 30 tab, 3 Refill(s), Pharmacy: [facility] Start Date: 04/27/22 Status: Ordered [...] Daily, # 90 cap, 0 Refill(s), Pharmacy: [facility] Start Date: 08/23/22 Status: Ordered traZODone 150 mg oral tablet 90 EA, TAKE 1 TABLET BY MOUTH EVERY DAY AT BEDTIME, 0 Refill(s) Start Date: 04/09/22 Status: Ordered traZODone 50 mg oral tablet 50 mg = 1 tab, Oral, every night at bedtime, as needed for insomnia. In addition to 150mg., # 30 tab, 3 Refill(s), Pharmacy: [facility] Start Date: 05/16/22 Status: Ordered triamcinolone 0.025% topical cream 1 karina, Topical, Daily, # 15 g, 0 Refill(s), Pharmacy: [facility] Start Date: 08/07/22 Stop Date: 08/21/22 Status: Ordered Tylenol 8 Hour 650 mg oral tablet, extended release 650 mg = 1 tab, Oral, BID, PRN as needed for fever, # 50 tab, 1 Refill(s), Pharmacy: [facility] Start Date: 11/02/22 Status: Ordered Tylenol Extra Strength 500 mg oral tablet QID, as needed, 0 Refill(s) Start Date: 04/27/22 Status: Ordered Vagifem 10 mcg vaginal tablet 10 mcg = 1 tab, VAG, Sat// at bedtime, # 36 tab, 3 Refill(s), Pharmacy: [facility] Start Date: 01/08/23 Status: Ordered Vagifem 10 mcg vaginal tablet 10 mcg = 1 tab, VAG, Mon/Sat, # 26 tab, 4 Refill(s), Pharmacy: [facility] Start Date: 10/25/22 Stop [...] Completed Surgery 2 06/2020 Completed Drainage of site auditor y canal abscess 3 10/2016 Completed Procedure 4 11/2015 Completed Breast reduction 06/2014 Complete d Balloon sinuplasty 05/2014 Comp leted Total knee arthroplasty 03/03/12 [...] Results Laboratory List Name Date .Urinalysis POCT 01/16/23 Most recent to oldest [Reference Range]: 1 Method of Collect POC Clean Catch *NA* (01/16/23 3:18 PM) Specific [place], Ur POC 1.015 *NA* (01/16/23 3:18 PM) Specimen Color POC [Yellow] Yellow (01/16/23 3:18 PM) Glucose, Urine POC Negative mg/dL *NA* (01/16/23 3:18 PM) Bilirubin, Urine POC [Negative] Negative (01/16/23 3:18 PM) Ketones, Urine POC [Negative mg/dL] Nega tive mg/dL (01/16/23 3:18 PM) Blood, Urine POC [Negative] Negative (01/16/23 3:18 PM) pH, Urine POC 8.5 *NA* (01/16/23 3:18 PM) Protein, Urine POC [Negative mg/dL] Nega tive mg/dL (01/16/23 3:18 PM) Urobilinogen, Urine POC [0.2] 0.2 (01/16/23 3:18 PM) Nitrite, Urine POC [Negative] Negative (01/16/23 3:18 PM) Leuk Esterase, Urine POC [Negative] Nega tive (01/16/23 3:18 PM) Clarity, Urine POC [Clear] Clear (01/16/23 3:18 PM) Vital Signs Most recent to oldest [Reference Range]: 1 Temperature Temporal Artery [36-38 Deg C ] 36.3 Deg C (01/16/23 3:01 PM) Peripheral Pulse Rate [60-100 bpm] 78 bp m (01/16/23 3:01 PM) Blood Pressure [90-140/60-90 mmHg] 144/8 0mmHg *HI* (01/16/23 3:01 PM) Weight 73.48 kg (01/16/23 3:01 PM) Weight Measured (lbs) 161.995 lb (01/16/23 3:01 PM) [place] Body Weight Calculated 50.1 kg (01/16/23 3:01 PM) Height 157.48 cm (01/16/23 3:01 PM) Height/Length Measured (inches) 62 inch (01/16/23 3:01 PM) BSA Measured 1.79 m2 (01/16/23 3:01 PM) Body Mass Index 29.63 kg/m2 (01/16/23 3:01 PM) Social History Social History Type Response Tobacco Never tobacco user T obacco Use:. Sex Physician Outpatient Note * Sunita Dalal MD: PERFORM Event Display: Office Clinic Note Physician Authored Date: [id number] SUNNY LUONG :1950 Age:72 years Sex:Female Visit Date:01/16/2023 Primary Care Physician: KENN BRENNER Chief Complaint Voiding Diary Follow up History of Present Illness Mrs. Luong is a pleasant 72 year-old lady who presents today for follow-up of urinary incontinence in the context of a small Grade I cystocele.? She tried an estrogen ring since she does not always remember to use the vaginal estrogen tablets twice weekly.? The ring caused urinary frequency and vaginal discomfort, so she requested that it be removed after just a few days of wearing it. ?? She denies nocturia, though she takes trazadone nightly for insomnia.?? During the day, she voids about every 2h while awake.?? She denies leakage with laughing, coughing, or sneezing.?? She has urinary urgency at least once a day.?? She only rarely has UUI, but she has close calls regularly.?? She does not need to wear pads.?She was prescribed Myrbetriq by Dr. Preston; she did not think it made too much of a difference.? She did not think the urgency improved much while she was taking vaginal estrogen.? Her PVR today was 95 mL. ?? She has never had a UTI.?? She never had gross hematuria.?? She has never had a UTI.? Arti had urinary urgency for many years, and admits that she is very tired of it and would like to have something done. Physical Exam Vitals & Measurements T:??36.3?C ??(Temporal Artery)?? HR:??78??(Peripheral)?? BP:??144/80?? SpO2:??97%?? HT:??157.48??cm?? WT:??73.48??kg?? BMI:??29.63?? BSA:??1.79?? GENERAL APPEARANCE:??alert and oriented in NAD; appropriate with good affect.??.?? NEURO:??grossly intact.?? HEENT:??NCAT; EOMI.?? NECK:??supple.?? CHEST:??symmetric excursions.?? ABDOMEN:??soft, NT, ND.?? MUSCULOSKELETAL:??good gait and station.?? EXTREMITIES:??no c/c/e??.?? BACK/SPINE:??no CVAT.?? :??deferred. Assessment/Plan 1.??Urinary urgency??R39.15 ?? Urinary incontinence??R32 Ordered: Urine Dipstick Clinic POC (RE), 01/16/23 15:12:00 EDT, Urinary incontinence, 01/16/23 15:12:00 EDT ?? Orders: .Urinalysis POCT, Urine, RT, RT - Routine, Collected Y/N, Once, 01/16/23 15:16:00 EDT, [facility] ASSESSMENT:?? Ms. Luong is a pleasant is a very pleasant 72 year-old lady with bothersome urinaryurgency and UUI.?? She did get much of a response to Myrbetriq or estrogen. PLAN: 1.?? She will??continue Vagifem twice weekly. 2. She would like to try intravesical Botox; this will be scheduled. Problem List/Past Medical History Ongoing Allergic rhinitis [...] injectable kit, 0.3 mg, As Directed, PRN Flonase, Nasal, PRN ibuprofen 100 mg oral [...] vaginal tablet, 10 mcg= 1 tab, VAG, Mon//Fr at bedtime, 3 refills Vagifem 10 mcg [...] adult/adol 11/27/2021 Recorded Comments : Unit: Unknown Proofer: [employer] Pasteur SARS-CoV-2 (COVID-19) mRNA-1273 vaccine 09/20/2021 [...] Recorded hepatitis A adult vaccine 11/15/2014 Recorded Lab Results Test Name Test Result Date/Time Method of Collect POC Clean Catch 01/16/2023 15:18 EDT Specimen Color POC Yellow 01/16/2023 15:18 EDT Clarity, Urine POC Clear 01/16/2023 15:18 EDT Glucose, Urine POC Negative 01/16/2023 15:18 EDT Bilirubin, Urine POC Negative 01/16/2023 15:18 EDT Ketones, Urine POC Negative 01/16/2023 15:18 EDT Specific [place], Ur POC 1.015 01/16/2023 15:18 EDT pH, Urine POC 8.5 01/16/2023 15:18 EDT Protein, Urine POC Negative 01/16/2023 15:18 EDT Urobilinogen, Urine POC 0.2 01/16/2023 15:18 EDT Nitrite, Urine POC Negative 01/16/2023 15:18 EDT Blood, Urine POC Negative 01/16/2023 15:18 EDT Leuk Esterase, Urine POC Negative 01/16/2023 15:18 EDT Electronically Signed on 01/16/23 03:35 PM Sunita Dalal MD Patient Care team information Care Team Personnel Name: KENN BRENNER Position: No Access Member Role: Primary Care Physician Address: Address: [address] [place] [id number] [place] [address] Name: Yasmine Strickland APRN Position: Physician Member Role: Nurse Practitioner Address: Address: [address] [place] [address] Care Team Related Persons Name: MARIANO MORENO Address: Home Name: DESEAN LUONG Address: Home [address] [place] [phone] [facility] Name: DESEAN LUONG Address: Home [address] [place] [address]
--- OUTSIDE RECORDS SUMMARY | 2023-05-21 15:34 | XMS_ITS | Continuity of Care Document ---
Author Name Unknown Organization [facility] Ambulatory Clinics Address [address] [place] [address] Care Team Providers Care Sleeping Room Cleaner Name Role Phone Veronica Barrios APRN Primary Care Physician [phone] Encounter [facility] NBR [id number] Date(s): 08/14/22 - 08/14/22 [facility] Ambulatory Clinics [address] [place], [place] [address] Encounter Diagnosis Lumbar radicular pain(Discharge Diagnosis) - 08/14/22 Spondylolisthesis, lumbar region(Discharge Diagnosis) - 08/14/22 Facet hypertrophy of lumbar region(Discharge Diagnosis) - 08/14/22 Spondylosis without myelopathy or radiculopathy, lumbar region(Final) - Radiculopathy, lumbar region(Final) - Spondylolisthesis, lumbar region(Final) - Discharge Disposition: Home or Self Care Attending Physician: Nell Daugherty DO Referring Physician: Yasmine Batista APRN Allergies, Adverse Reactions, [...] * MRI Spine Lumbar w/o Contrast 08/14/22 Functional Status 08/14/22 Other exposure to Infectious Disease Non e [...] drowsiness., # 60 cap, 0 Refill(s), Pharmacy: [facility] Start Date: 08/14/22 Status: Ordered meloxicam [...] Daily, # 90 tab, 0 Refill(s), Pharmacy: [facility] Start Date: 08/07/22 Status: Ordered omeprazole 20 mg oral delayed release capsule 20 mg = 1 cap, Oral, Daily, # 30 cap, 0 Refill(s), Pharmacy: [facility] Start Date: 08/07/22 Status: Ordered Proventil HFA 90 mcg/inh inhalation aerosol QID, 2 puffs as needed, 0 Refill(s) Start Date: 04/27/22 Status: Ordered Sudafed 30 mg oral tablet QID, as needed, 0 Refill(s) Start Date: 04/27/22 Status: Ordered Tirosint 50 mcg (0.05 mg) oral capsule 50 mcg = 1 cap, Oral, Daily, # 90 cap, 0 Refill(s), Pharmacy: [facility] Start Date: 08/07/22 Status: Ordered traZODone [...] Unknown, # 360 cap, 0 Refill(s), Pharmacy: [facility] Start Date: 08/07/22 Status: Ordered Problem [...] Temperature Temporal Artery [36-38 Deg C ] 36.4 Deg C (08/14/22 11:20 AM) Peripheral Pulse Rate [60-100 bpm] 63 bp m (08/14/22 11:20 AM) Blood Pressure [90-140/60-90 mmHg] 154/8 2mmHg *HI* (08/14/22 11:20 AM) Weight 75.57 kg (08/14/22 11:20 AM) Weight Measured (lbs) 166.603 lb (08/14/22 11:20 AM) [place] Body Weight Calculated 53.55 kg (08/14/22 11:20 AM) Height 161.29 cm (08/14/22 11:20 AM) Height/Length Measured (inches) 63.5 inc h (08/14/22 11:20 AM) BSA Measured 1.84 m2 (08/14/22 11:20 AM) Body Mass Index 29.05 kg/m2 (08/14/22 11:20 AM) Social History Social History Type Response Tobacco Never tobacco user T obacco Use:. Sex Physician Outpatient Note * Nell Daugherty, DO: PERFORM, MODIFY, MODIFY, MODIFY, MODIFY, MODIFY Event Display: Office Clinic Note Physician Authored Date: [id number] YESSENIA ESPARZA :1950 Age:72 years Sex:Female Visit Date:08/14/2022 Primary Care Physician: Veronica Barrios APRN Chief Complaint Lower back pain Reason for Consultation back and bilateral leg pain History of Present Illness Back pain has been ongoing for about 6 months, gradual in onset??described as dull and??burning in quality. Low back pain radiates to hips, thighs and lateral calves. Radiates more with sitting, leg pain worse with sitting/sedentary slightly better with walking and moving, pain slightly better with changing positions Pain level 3-4/10 slight intermittent tingling along the lateral hips/thighs pain occasionally interrupts sleep ?? Evaluated by Yasmine at [facility], ordered hip and back xrays ?? she also reports chronic hand pain due to osteoarthritis ?? Treatments tried: PT- completed 6 weeks, helpful, she does do some exercises at home heat Tylenol - not sure if helpful Naproxen - cause stomach upset, not taking regularly ?? Review of Systems Patient recently had workup with territory sales consultant, negative stress test recently.??Denies??leg weakness.?? + chronic history of urinary urgency,??denies bowel dysfunction, no falls Physical Exam Vitals & Measurements T:??36.4?C ??(Temporal Artery)?? HR:??63??(Peripheral)?? BP:??154/82?? SpO2:??99%?? HT:??161.29??cm?? WT:??75.57??kg?? BMI:??29.05?? BSA:??1.84?? HEENT: Facial movements symmetric Resp: Breathing comfortably, unlabored respirations Lumbar ROM: Fairly normal range of motion of the lumbar spine in flexion and extension, slightly more discomfort with flexion Neuro: Motor:Strength is 5 out of 5 in the upper and lower extremities bilaterally except trace weakness with EHL bilaterally 5-/5 Sensation:Intact to light touch in the?? upper and lower extremities bilaterally Reflexes: 1+ patellar, achilles b/l.??De Souza's negative b/l.??No clonus. Provocative tests: Straight leg raise on left results in lateral thigh discomfort Hips: No groin pain with internal or external rotation SI joints: Juan Jose's finger test neg, LIBRADO mildly positive on left Gait: Clear toes, able to toe and heel walk Assessment/Plan Facet hypertrophy of lumbar region??M47.816 ?? Lumbar radicular pain??M54.16 Ordered: MRI Spine Lumbar w/o Contrast, 08/14/22, Routine, Reason: back and bilateral leg pain, mostly L5 pattern, No, Yes, only other metal is knee replacement per her report, Transport Mode: Ambulatory, Lumbar radicular pain Spondylolisthesis, lumbar region, ABN Status: Not Required ?? Spondylolisthesis, lumbar region??M43.16 Ordered: MRI Spine Lumbar w/o Contrast, 08/14/22, Routine, Reason: back and bilateral leg pain, mostly L5 pattern, No, Yes, only other metal is knee replacement per her report, Transport Mode: Ambulatory, Lumbar radicular pain Spondylolisthesis, lumbar region, ABN Status: Not Required ?? Orders: gabapentin 100 mg oral capsule, 200 mg = 2 cap, Oral, every evening, Start with 1 capsule at bedtime. If tolerating for 2 nights, can increase to 2 capsules at bedtime. Monitor for drowsiness., # 60 cap, 0 Refill(s), Pharmacy: [facility] ? Yessenia is a pleasant 72 year old female who presents for initial evaluation of back and leg pain.??X-ray of the lumbar spine completed in April shows grade 1 spondylolisthesis of L4 on L5 and L5 on S1.?? There is multilevel facet arthropathy.?? She is having significant leg symptoms and suspect that there is??lateral recess or canal stenosis at L4-5 and L5-S1 contributing to??radicular leg pain. Pain pattern seems to most closely follow an L5 distribution.?? She completed 6 weeks of physical therapy without benefit. ??She is interested in injections. ??She would likely be a candidate for an epidural steroid injection. ??We will obtain an MRI lumbar spine to evaluate for stenosis??and nerve root impingement. ??We also discussed the option to trial gabapentin for nerve pain. ??Potential side effects were reviewed including drowsiness, dizziness, mood changes. ??She is having troublesleeping at night and after discussing this medication, she would like to trial gabapentin at bedtime. She will start gabapentin 200 mg at night. ??If tolerating without side effects, she can increase to gabapentin 200 mg twice daily.?Also of note, she recently had a Lyme work-up. ??She had previously been treated for Lyme??and recently had repeat lab results, will be seeing??her machine quilt stuffer??next week.?? If she is started on antibiotics, we discussed that we would need to wait until the course of antibiotics is complete before??scheduling an injection.?? She expressed understanding. ?? We will contact her once lumbar MRI results are available to review to discuss next steps. Images X-ray of the lumbar spine from 05/09/2022 personally reviewed. ??Grade 1 spondylolisthesis of??L5 on S1 and??L4 on L5. ??Mild levoscoliosis.?? Degenerative disc changes and facet arthropathy??noted. X-ray of the hips 04/12/2022??personally reviewed.?? No significant hip arthritic changes. ??Joint spaces are well-maintained. ? 55 minutes spent in this encounter including [id number] time as well as additional time on chart review, imaging review and documentation. Problem List/Past Medical History Ongoing Allergic rhinitis [...] (03/04/2012)???Hysterectomy (1991)???Appendectomy (1961)???Tonsillectomy (1961)??? of child Medications Inpatient Kenalog-40, 40 mg, Intra-articular, Once Home Glory Allergy 60 mg oral tablet, 60 mg= 1 tab, Oral, Daily Glory-D 24 Hour Allergy & Congestion 180 mg-240 mg oral tablet, extended release, 1 tab, Oral, Daily atorvastatin 80 mg oral tablet, 80 mg= 1 tab, Oral, Daily EpiPen 2-Melchor 0.3 mg injectable kit Flonase, Nasal, PRN gabapentin 100 mg oral capsule, 200 mg= 2 cap, Oral, every evening meloxicam 7.5 mg oral tablet, 7.5 mg= [...] Mother and Father. Hypertension: Mother. Osteoporosis: Mother. Electronically Signed on 08/14/22 05:27 PM Nell Daugherty DO Patient Care team information Care Team Personnel Name: Yasmine Batista APRN Position: Physician Member Role: Nurse Practitioner Address: Address: [address] [place] [address] Name: Veronica Barrios APRN Position: Physician Member Role: Primary Care Physician Address: Address: [address] [place] [address] [place] Care Team Related Persons Name: MARIANO MORENO Address: Home
--- OUTSIDE RECORDS SUMMARY | 2023-05-21 15:34 | XMS_ITS | Continuity of Care Document ---
Author Name Unknown Organization [facility] Ambulatory Clinics Address [address] [place] [address] Care Team Providers Care Shipping And Receiving Supervisor Name Role Phone KENN BRENNER Primary Care Physician [phone] Encounter [facility] NBR [id number] Date(s): 02/06/23 - 02/06/23 [facility] Ambulatory Clinics [address] [place] [address]- [place] Discharge Disposition: Home or Self Care Attending Physician: Nell Daugherty DO Referring Physician: Nell Daugherty DO Allergies, Adverse Reactions, Alerts Substance Reaction Severity Status amoxicillin Unknown Active morphine Unknown Active fenofibrate Unknown Active citalopram Unknown Active penicillins Unknown Active sulfa drugs Unknown Active Effexor Unknown Active Bactrim Unknown Active Zocor Unknown Active Voltaren Unknown Active Lipitor Unknown Active Crestor Unknown Active OxyCONTIN Unknown Active Bees/Stinging Insects Unknown Active Sulfabenzamide/Sulfacetamide/Sulfathiazole Nausea Moderate Active Augmentin Moderate Active Assessment and Plan Future Appointments Immunizations Given and Recorded Vaccine Date Status Refusal Reason SARS-CoV-2 (COVID-19) mRNA-1273(6y+ biva 04/04/22 Given tetanus/diphth/pertuss (Tdap) adult/adol 1 11/27/21 Recorded tetanus/diphth/pertuss (Tdap) adult/adol 02/19/18 Recorded tetanus/diphth/pertuss (Tdap) adult/adol 10/15/16 Recorded tetanus/diphth/pertuss (Tdap) adult/adol 07/02/16 Recorded SARS-CoV-2 (COVID-19) mRNA-1273 vaccine 2 09/20/21 Recorded SARS-CoV-2 (COVID-19) mRNA-1273 vaccine 3 3/24/21 Recorded SARS-CoV-2 (COVID-19) mRNA-1273 vaccine 4 08/03/20 [...] 11/15/14 Tu rded 1Result Comment: Unit: Unknown Medical Photographer: [employer] 2Result Comment: Unit: Unknown 3Result Comment: Unit: [...] fever, # 80 tab, 1 Refill(s), Pharmacy: [facility] Start Date: 11/02/22 Status: Ordered Latuda 20 mg oral tablet 20 mg = 1 tab, Oral, Daily, # 30 tab, 0 Refill(s) Start Date: 12/27/22 Status: Ordered meloxicam 7.5 mg oral tablet 7.5 mg = 1 tab, Oral, Daily, # 30 tab, 3 Refill(s), Pharmacy: [facility] Start Date: 04/27/22 Status: [...] Daily, # 90 cap, 0 Refill(s), Pharmacy: [facility] Start Date: 08/23/22 Status: Ordered traZODone 150 mg oral tablet 90 EA, TAKE 1 TABLET BY MOUTH EVERY DAY AT BEDTIME, 0 Refill(s) Start Date: 04/09/22 Status: Ordered traZODone 50 mg oral tablet 50 mg = 1 tab, Oral, every night at bedtime, as needed for insomnia. In addition to 150mg., # 30 tab, 3 Refill(s), Pharmacy: [facility] Start Date: 05/16/22 Status: Ordered triamcinolone 0.025% topical cream 1 karina, Topical, Daily, # 15 g, 0 Refill(s), Pharmacy: [facility] Start Date: 08/07/22 Stop Date: 08/21/22 Status: Ordered Tylenol 8 Hour 650 mg oral tablet, extended release 650 mg = 1 tab, Oral, BID, PRN as needed for fever, # 50 tab, 1 Refill(s), Pharmacy: [facility] Start Date: 11/02/22 Status: Ordered Tylenol Extra Strength 500 mg oral tablet QID, as needed, 0 Refill(s) Start Date: 04/27/22 Status: Ordered Vagifem 10 mcg vaginal tablet 10 mcg = 1 tab, VAG, Mon//Fr at bedtime, # 36 tab, 3 Refill(s), Pharmacy: [facility] Start Date: 01/08/23 Status: Ordered Vagifem 10 mcg vaginal tablet 10 mcg = 1 tab, VAG, Mon/Fri, # 26 tab, 4 Refill(s), Pharmacy: [facility] Start Date: 10/25/22 Stop [...] Completed Surgery 2 06/2020 Completed 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 Sex Female Discharge instructions * Event Display: Discharge Instructions History and physical note * Event Display: History and Physical Update Patient Care team information Care Team Personnel Name: KENN BRENNER Position: No Access Member Role: Primary Care Physician Address: Address: [address] [place] [address] Name: Yasmine Strickland APRN Position: Physician Member Role: Nurse Practitioner Address: Address: [address] [place] [address] Care Team Related Persons Name: MARIANO MORENO Address: Home Name: DESEAN ESPARZA Address: Home [address] [place] [address] Name: DESEAN ESPARZA Address: Home [address] [place] [phone] [facility]
--- OUTSIDE RECORDS SUMMARY | 2023-05-21 15:34 | XMS_ITS | Continuity of Care Document ---
Author Name Unknown Organization [facility] Ambulatory Clinics Address [address] [place] [address] Care Team Providers Care Bundles Hanger Name Role Phone Mary Campbell MD Primary Care Physician Encounter [facility] NBJena [id number] Date(s): 06/28/22 - 06/28/22 [facility] Ambulatory Clinics [address] [place] [address] Encounter Diagnosis Trochanteric bursitis of both hips(Discharge Diagnosis) - 06/28/22 Trochanteric bursitis, left hip(Discharge Diagnosis) - 06/28/22 Bilateral hip pain(Discharge Diagnosis) - 06/28/22 Pain in left hip(Discharge Diagnosis) - 06/28/22 Discharge Disposition: Home or Self Care Attending [...] Density DEXA Axial Skeleton 11/08/22 Functional Status 06/28/22 Recent Travel History No recent travel Other exposure to Infectious Disease Non e Immunizations Given and Recorded Vaccine Date Status Refusal Reason SARS-CoV-2 mRNA-1273 bivalent booster 04/04/22 Giv en Medications Abilify 2 mg oral tablet 2 mg = 1 tab, Oral, Daily, # 90 tab, 1 Refill(s), Pharmacy: [facility] #[id number] Start Date: 05/28/22 Status: Ordered Abilify 2 mg oral tablet 2 mg = 1 tab, Oral, BID, call MD with update in 60 days or sooner, # 180 tab, 0 Refill(s), [id number] Start Date: 05/28/22 Stop Date: 08/26/22 Status: [...] # 30 tab, 3 Refill(s), Pharmacy: [facility] Start Date: 04/27/22 Status: Ordered naproxen 500 mg oral delayed release tablet BID, as needed, 0 Refill(s) Start Date: 04/27/22 Status: Ordered Niaspan ER 500 mg oral tablet, extended release 750 mg =, Oral, BID, # 100 tab, 0 Refill(s) Start Date: 04/27/22 Status: Ordered [place]-3 1000 mg oral capsule Daily, 0 Refill(s) [...] # 30 tab, 3 Refill(s), Pharmacy: [facility] Start Date: 05/16/22 Status: Ordered [...] Range]: 1 Peripheral Pulse Rate [60-100 bpm] 84 bp m (06/28/22 1:45 PM) Blood Pressure [90-140/60-90 mmHg] 122/7 7mmHg (06/28/22 1:45 PM) Weight 74.84 kg (06/28/22 1:45 PM) Weight Measured (lbs) 164.994 lb (06/28/22 1:45 PM) Social History Social History Type Response Tobacco Never tobacco user T obacco Use:. Sex Physician Outpatient Note * Yasmine Batista APRN: PERFORM, MODIFY, MODIFY Event Display: Office Clinic Note Physician Authored Date: [id number] YESSENIA ESPARZA :1950 Age:72 years Sex:Female Visit Date:06/28/2022 Primary Care Physician: Mary Campbell MD Chief Complaint B/l hip pain History of Present Illness Yessenia is here today for??injection bilateral trochanteric bursitis, I saw her a week ago for??otherinjections and we wanted to space out the steroid injections over the next few weeks.?? She has significant bilateral trochanteric bursitis no groin or buttock pain no anterior thigh discomfort.?? She has had injections in the past for trochanteric bursitis and always done well with it. ??She has be en feeling her normal state of health. Review of Systems Constitutional:?No??fevers,?No??chills,?No??sweats Eye:?No??recent visual problems ENT:?No??ear pain,?No??nasal congestion,?No??sore throat Respiratory:?No??shortness of breath,?No??cough Cardiovascular:?No??Chest pain,?No??palpitations,?No??syncope Gastrointestinal:?Nonausea,?No??vomiting,?No??diarrhea Genitourinary:?No??hematuria Ba/Lymph:?No??bruising tendency,?No??swollen lymph glands Endocrine:?No??excessive thirst,??No??excessive hunger Musculoskeletal:??No??back pain,??No??neck pain,??Positive for??joint pain,??Positive for??muscle pain,??Positive for??decreased range of motion Integumentary:?No??rash,?No??pruritus,?No??abrasions Neurologic: Alert & oriented X 4 Psychiatric:?No??anxiety,?No??depression Physical Exam General: ??appears stated age, well dressed HEENT: [...] ??pulses distally of limb are 2+?? Musculoskeletal: Bilateral hips: She is able to fully extend she is able to flex to 90 internal andexternal rotation 5 degrees each without any groin or buttock pain Jere's test is negative thereis significant tenderness to palpation over the trochanteric bursa's??bilaterally, none at the sciatic notch or SI joint. Procedure Risks and benefits of injection are discussed with the patient. ??The patient gives verbal consent.?The lateral trochanteric bursae??are palpated and at the point of maximal tenderness the skin isprepped with alcohol x 3, I then inject 10ml of 1% lidocaine plain and 40mg of Kenalog into the bursa??and this is repeated bilaterally. ??The patient tolerates the procedure well and a sterile dressing is applied. I did ask the patient to avoid a bath or shower for 24 hours after injection for risk of introducing infection. ??We also discussed the knee may feel a bit more irritated for a few days status post injection. ??They will call with any questions or concerns. Assessment/Plan 1.??Trochanteric bursitis of both hips??M70.61 Yessenia and I spent??15 minutes together today with 10 of those minutes spent reviewing her symptoms,no groin or buttock pain, that she has significant trochanteric bursitis she has done well with injections in the past and after physical exam today??I feel confident and okay with moving forward with injection.?? Postinjection instructions are given if she has any issues questions concerns occur she is encouraged to call otherwise we will see how she does over the next few weeks. Ordered: Kenalog-40, 40 mg, Intra-articular, As Directed, First Dose: 06/28/22 13:53:00 EST, Physician Stop,Routine Kenalog-40, 40 mg, Intra-articular, As Directed, First Dose: 06/28/22 13:53:00 EST, Physician Stop,Routine ?? Trochanteric bursitis, left hip??M70.62 ?? Problem List/Past Medical History Ongoing Allergic [...] Vitamin D deficiency Historical No qualifying data Medications Abilify 2 mg oral tablet, 2 [...] Once Kenalog-40, 40 mg, Intra-articular, As Directed Kenalog-40, 40 mg, Intra-articular, As Directed meloxicam 7.5 mg oral tablet, 7.5 mg= 1 tab, Oral, Daily, 3 refills naproxen 500 mg oral delayed release tablet, BID Niaspan ER 500 mg oral tablet, extended release, 750 mg, Oral, BID [place]-3 1000 mg oral capsule, Daily Proventil HFA [...] amoxicillin citalopram fenofibrate morphine penicillins sulfa drugs Electronically Signed on 06/28/22 02:00 PM Yasmine Batista APRN Patient Care team information Personnel Name: Mary Campbell MD Address: Address: [address] [place] [address]
--- OUTSIDE RECORDS SUMMARY | 2023-05-21 15:34 | XMS_ITS | Continuity of Care Document ---
Author Name Unknown Organization [facility] Ambulatory Clinics Address [address] [place] [address] Care Team Providers Care Hand Tufter Name Role Phone Mary Campbell MD Primary Care Physician [phone] Encounter [facility] [place] NBR [id number] Date(s): 04/10/22 - 04/10/22 [facility] Ambulatory Clinics [address] [place], [place] [address] Encounter Diagnosis Cerumen impaction(Discharge Diagnosis) - 04/09/22 Actinic keratosis(Discharge Diagnosis) - 04/09/22 Chronic allergic rhinitis due to pollen(Discharge Diagnosis) - 04/09/22 Cold sore(Discharge Diagnosis) - 04/10/22 Discharge Disposition: Home or Self Care Attending Physician: Jere Estevez DO Allergies, Adverse Reactions, Alerts Substance Reaction [...] Plan Future Appointments Future Scheduled Tests Radiology* XR Knee Complete 4+ Views Left 04/06/22 * XR Knee Complete 4+ Views Right 04/06/22 * XR Spine Lumbosacral 2 or 3 Views 04/06/22 * XR Hip 2-3 Views w/AP Pelvis Left 04/06/22 * XR Hip 2-3 Views w/AP Pelvis Right 04/06/22 Immunizations Given and Recorded Vaccine Date Status Refusal Reason SARS-CoV-2 mRNA-1273 bivalent booster 04/04/22 Giv en Medications acyclovir 5% topical cream 1 karina, Topical, 5 times per day, # 5 g, 0 Refill(s), Pharmacy: [facility] Start Date: 04/10/22 Status: Ordered Glory Allergy 0 Refill(s) Start Date: 04/10/22 Status: Ordered Flonase 0 Refill(s) Start Date: 04/09/22 Status: Ordered FLUoxetine (Eqv-Prozac) 10 mg oral tablet 10 mg = 1 tab, 0 Refill(s) Start Date: 04/09/22 Status: Ordered naltrexone 50 mg oral tablet 1 tab, Oral, Daily, # 30 tab, 0 Refill(s), Pharmacy: [facility] #[id number] Start Date: 03/26/22 Status: Ordered Tirosint 50 mcg (0.05 mg) oral capsule 0 Refill(s) Start Date: 04/09/22 Status: Ordered traZODone 150 mg oral tablet 90 EA, TAKE 1 TABLET BY MOUTH EVERY DAY AT BEDTIME, 0 Refill(s) Start Date: 04/09/22 Status: Ordered Procedures Procedure Date Related Diagnosis Body Site Status of child Completed Social History Social History Type Response Tobacco Never tobacco user T obacco Use:. Sex Patient Care team information Personnel Name: Mary Campbell MD Address: Address: [address] [place] [address]
--- OUTSIDE RECORDS SUMMARY | 2023-05-21 15:34 | XMS_ITS | Continuity of Care Document ---
Author Name Unknown Organization [facility] Address [address] [place] [address] Care Team Providers Care Monitoring And Evaluation Advisor Name Role Phone Meimay Veronica VALDES Primary Care Physician Encounter [facility] NBR [id number] Date(s): 11/07/22 - 11/07/[address] [address] Encounter Diagnosis Encounter for other administrative examinations(Final) - Discharge Disposition: Home-No Follow Up Allergies, Adverse Reactions, Alerts Substance Reaction Severity [...] 11/15/14 Tu rded 1Result Comment: Unit: Unknown Pulp Grinder: Invrep 2Result Comment: Unit: Unknown 3Result Comment: Unit: [...] drowsiness., # 60 cap, 0 Refill(s), Pharmacy: [facility] Start Date: 08/14/22 Status: Ordered ibuprofen 100 mg oral tablet 200 mg = 2 tab, Oral, every 6 hr, PRN as needed for fever, # 80 tab, 1 Refill(s), Pharmacy: [facility]93 Start Date: 11/02/22 Status: Ordered ketotifen 0.025% ophthalmic solution 1 drops, Eye-Both, BID, # 7.5 mL, 0 Refill(s) Start Date: 08/17/22 Status: Ordered meloxicam 7.5 mg oral tablet 7.5 mg = 1 tab, Oral, Daily, # 30 tab, 3 Refill(s), Pharmacy: [facility] Start Date: 04/27/22 Status: Ordered Nexletol 180 mg oral tablet 180 mg = 1 tab, Oral, every other day, # 45 tab, 0 Refill(s) Start Date: 10/31/22 Stop Date: 01/29/23 Status: Ordered omeprazole 20 mg oral delayed release capsule 20 mg = 1 cap, Oral, Daily, Appointment 10/29/22 , # 90 cap, 3 Refill(s), Pharmacy: [facility] Start Date: 10/16/22 Stop Date: 10/11/23 Status: Ordered Proventil HFA 90 mcg/inh inhalation aerosol QID, 2 puffs as needed, 0 Refill(s) Start Date: 04/27/22 Status: Ordered Singulair 10 mg =, Oral, Daily, 0 Refill(s) Start Date: 10/24/22 Status: Ordered Tirosint 50 mcg (0.05 mg) oral capsule 50 mcg = 1 cap, Oral, Daily, # 90 cap, 0 Refill(s), Pharmacy: [facility] Start Date: 08/23/22 Status: Ordered traZODone 150 mg oral tablet 90 EA, TAKE 1 TABLET BY MOUTH EVERY DAY AT BEDTIME, 0 Refill(s) Start Date: 04/09/22 Status: Ordered traZODone 50 mg oral tablet 50 mg = 1 tab, Oral, every night at bedtime, as needed for insomnia. In addition to 150mg., # 30 tab, 3 Refill(s), Pharmacy: [facility] Start Date: 05/16/22 Status: Ordered triamcinolone 0.025% topical cream 1 karina, Topical, Daily, # 15 g, 0 Refill(s), Pharmacy: [facility] Start Date: 08/07/22 Stop Date: 08/21/22 Status: Ordered Tylenol 8 Hour 650 mg oral tablet, extended release 650 mg = 1 tab, Oral, BID, PRN as needed for fever, # 50 tab, 1 Refill(s), Pharmacy: [id number] Start Date: 11/02/22 Status: Ordered Tylenol Extra Strength 500 mg oral tablet QID, as needed, 0 Refill(s) Start Date: 04/27/22 Status: Ordered Vagifem 10 mcg vaginal tablet 10 mcg = 1 tab, VAG, Mon/Fri, # 26 tab, 4 Refill(s), Pharmacy: [facility] Start Date: 10/25/22 Stop Date: [...] Completed Surgery 2 06/2020 Completed Drainage of medicare compliance auditor y canal abscess 3 10/2016 Completed [...] - indicated multiple seactions in [facility] Results Radiology Reports * Exam Date Time Procedure Performing Provider Status 04/27/22 12:01 PM XR Hand Complete 3+ Views Left Monica Oglesby; Auth (Verified) Notes: (XR Hand Complete 3+ Views Left) Reason For Exam: pain XR Hand Complete 3+ Views Left EXAM DESCRIPTION: XR Hand Complete 3+ Views Left 04/27/2022 INDICATION: PAIN COMPARISON: 04/26/2020 IMPRESSION: No acute fracture or dislocation First CMC joint arthritic changes with joint space narrowing and osteophyte formation. Small soft tissue calcifications adjacent to the 1st CMC joint. MCP and IP joint spaces are well maintained without significant arthritic changes No regional radiopaque soft tissue foreign body. JOB #: [id number] Final Signed by: Carlos Martinez MD Signed (Electronic Signature): 04/27/2022 12:12 pm * Exam Date Time Procedure Performing Provider Status 04/27/22 12:01 PM XR Hand Complete 3+ Views Right Monica Gambino; John (Verified) Notes: (XR Hand Complete 3+ Views Right) Reason For Exam: pain XR Hand Complete 3+ Views Right EXAM DESCRIPTION: XR Hand Complete 3+ Views Right 04/27/2022 INDICATION: PAIN COMPARISON: 04/18/2020 IMPRESSION: No acute fracture or dislocation Status post resection of the trapezium No significant arthritic changes in the hand region. MCP and IP joint spaces are well maintained No regional radiopaque soft tissue foreign body. JOB #: [id number] Final Signed by: Carlos Martinez MD Signed (Electronic Signature): 04/27/2022 12:11 pm Social History Social History Type Response Tobacco Never tobacco user T obacco Use:. Sex XR Hand - right GE 3 Views * Carlos Martinez MD: VERIFY, VERIFY Event Display: Report EXAM DESCRIPTION: XR Hand Complete 3+ Views Right 04/27/2022 INDICATION: PAIN COMPARISON: 04/18/2020 IMPRESSION: No acute fracture or dislocation Status post resection of the trapezium No significant arthritic changes in the hand region. MCP and IP joint spaces are well maintained No regional radiopaque soft tissue foreign body. JOB #: [id number] Final Signed by: Carlos Martinez MD Signed (Electronic Signature): 04/27/2022 12:11 pm XR Hand - left GE 3 Views * Carlos Martinez MD: VERIFY, VERIFY Event Display: Report EXAM DESCRIPTION: XR Hand Complete 3+ Views Left 04/27/2022 INDICATION: PAIN COMPARISON: 04/26/2020 IMPRESSION: No acute fracture or dislocation First CMC joint arthritic changes with joint space narrowing and osteophyte formation. Small soft tissue calcifications adjacent to the 1st CMC joint. MCP and IP joint spaces are well maintained without significant arthritic changes No regional radiopaque soft tissue foreign body. JOB #: [id number] Final Signed by: Carlos Martinez MD Signed (Electronic Signature): 04/27/2022 12:12 pm Patient Care team information Care Team Personnel Name: Yasmine Strickland APRN Position: Physician Member Role: Nurse Practitioner Address: Address: [address] [place] [address] Name: Veronica Barrios APRN Position: Physician Member Role: Primary Care Physician Address: Address: [address] [place] [address] [place] Care Team Related Persons Name: JOSH MARIANO Address: Home Name: DESEAN ESPARZA Address: [address] [address] [facility] Name: DESEAN ESPARZA Address: [address] [id number] [facility]
--- OUTSIDE RECORDS SUMMARY | 2023-05-21 15:34 | XMS_ITS | Continuity of Care Document ---
Author Name Unknown Organization [facility] Address [address] [place] [address] Care Team Providers Care Operations Administrator Name Role Phone Denis LEONNVeronica Liyah Primary Care Physician Encounter [facility] NBR [id number] Date(s): 10/24/22 - 10/24/[address] [address] Encounter Diagnosis Familial hypercholesterolemia(Final) - Obstructive sleep apnea (adult) (pediatric)(Final) - Discharge Disposition: Home or Self Care Attending Physician: PRASAD ESCOBAR MD Admitting Physician: PRASAD ESCOBAR MD Allergies, Adverse Reactions, Alerts Substance Reaction [...] Diagnostic Tests Pending * Miscellaneous Testing LC 10/24/22 Future Scheduled Tests Radiology* BD Bone Density [...] 11/15/14 Tu rded 1Result Comment: Unit: Unknown Produce Service Team Member: Drivable Pasteur 2Result Comment: Unit: Unknown 3Result Comment: [...] drowsiness., # 60 cap, 0 Refill(s), Pharmacy: [facility] Start Date: 08/14/22 Status: Ordered ketotifen 0.025% ophthalmic solution 1 drops, Eye-Both, BID, # 7.5 mL, 0 Refill(s) Start Date: 08/17/22 Status: Ordered meloxicam 7.5 mg oral tablet 7.5 mg = 1 tab, Oral, Daily, # 30 tab, 3 Refill(s), Pharmacy: [facility] Start Date: 04/27/22 Status: Ordered omeprazole 20 mg oral delayed release capsule 20 mg = 1 cap, Oral, Daily, Appointment 10/29/22 , # 90 cap, 3 Refill(s), Pharmacy: [facility] Start Date: 10/16/22 Stop Date: 10/11/23 Status: Ordered Proventil HFA 90 mcg/inh inhalation aerosol QID, 2 puffs as needed, 0 Refill(s) Start Date: 04/27/22 Status: Ordered Singulair 10 mg =, Oral, Daily, 0 Refill(s) Start Date: 10/24/22 Status: Ordered Tirosint 50 mcg (0.05 mg) oral capsule 50 mcg = 1 cap, Oral, Daily, # 90 cap, 0 Refill(s), Pharmacy: [facility] Start Date: 08/23/22 Status: Ordered traZODone 150 mg oral tablet 90 EA, TAKE 1 TABLET BY MOUTH EVERY DAY AT BEDTIME, 0 Refill(s) Start Date: 04/09/22 Status: Ordered traZODone 50 mg oral tablet 50 mg = 1 tab, Oral, every night at bedtime, as needed for insomnia. In addition to 150mg., # 30 tab, 3 Refill(s), Pharmacy: [facility] Start Date: 05/16/22 Status: Ordered triamcinolone 0.025% topical cream 1 karina, Topical, Daily, # 15 g, 0 Refill(s), Pharmacy: [facility] Start Date: 08/07/22 Stop Date: 08/21/22 Status: Ordered Tylenol Extra Strength 500 mg oral tablet QID, as needed, 0 Refill(s) Start Date: 04/27/22 Status: Ordered Vagifem 10 mcg vaginal tablet 10 mcg = 1 tab, VAG, Mon/Fri, # 26 tab, 4 Refill(s), Pharmacy: [facility] Start Date: 10/25/22 Stop Date: 01/18/24 Status: Ordered Vraylar 1.5 mg oral capsule [...] Completed Surgery 2 06/2020 Completed Drainage of quality auditor y canal abscess 3 10/2016 Completed [...] in [facility] Results Laboratory List Name Date Lipid Panel 10/24/22 Most recent to oldest [Reference Range]: 1 Cholesterol Total [129-209 mg/dL] 350 mg /dL *HI* (10/24/22 10:25 AM) LDL 232.8 *NA* (10/24/22 10:25 AM) HDL [40-80 mg/dL] 75 mg/dL (10/24/22 10:25 AM) Chol/HDL 4.7 *NA* (10/24/22 10:25 AM) Triglycerides [10-150 mg/dL] 210 mg/dL *HI* (10/24/22 10:25 AM) Social History Social History Type Response Tobacco Never tobacco user T obacco Use:. Sex Patient Care team information Care Team Personnel Name: Yasmine Strickland APRN Position: Physician Member Role: Nurse Practitioner Address: Address: [address] [place] [address] Name: Veronica Barrios APRN Position: Physician Member Role: Primary Care Physician Address: Address: [address] [place] [address] Care Team Related Persons Name: MARIANO MORENO Address: Home Name: DESEAN ESPARZA Address: Home [address] [place] [address] Name: DESEAN ESPARZA Address: [address] [id number] [facility]
--- OUTSIDE RECORDS SUMMARY | 2023-05-21 15:34 | XMS_ITS | Continuity of Care Document ---
Author Name Unknown Organization [facility] Ambulatory Clinics Address [address] [place] [address] Care Team Providers Care Internal Revenue Agent Name Role Phone Mary Campbell MD Primary Care Physician Encounter [facility] NBR [id number] Date(s): 04/27/22 - 04/27/22 [facility] Ambulatory Clinics [address] [place] [address] Discharge Disposition: Home or Self Care Attending Physician: Ines Gross NET APPLICATIONS DEVELOPER, Allergies, Adverse Reactions, Alerts Substance Reaction Severity Status amoxicillin Unknown Active morphine Unknown Active fenofibrate Unknown Active citalopram Unknown Active penicillins Unknown Active sulfa drugs Unknown Active Augmentin Moderate Active Effexor Unknown Active Bactrim Unknown Active Zocor Unknown Active Voltaren Unknown Active Lipitor Unknown Active Crestor Unknown Active OxyCONTIN Unknown Active Bees/Stinging Insects Unknown Active Assessment and Plan Future Appointments Functional Status 04/27/22 Other exposure to Infectious Disease Non e [...] 0 Refill(s) Start Date: 04/27/22 Status: Ordered [place]-3 1000 mg oral capsule Daily, 0 Refill(s) [...] Range]: 1 Peripheral Pulse Rate [60-100 bpm] 69 bp m (04/27/22 11:15 AM) Blood Pressure [90-140/60-90 mmHg] 126/7 0mmHg (04/27/22 11:15 AM) Weight 72.12 kg (04/27/22 11:15 AM) Weight Measured (lbs) 158.997 lb (04/27/22 11:15 AM) Height 160.02 cm (04/27/22 11:15 AM) Height/Length Measured (inches) 63 inch (04/27/22 11:15 AM) BSA Measured 1.79 m2 (04/27/22 11:15 AM) Body Mass Index 28.16 kg/m2 (04/27/22 11:15 AM) Social History Social History Type Response Tobacco Never tobacco user T obacco Use:. Sex Patient Care team information Personnel Name: Mary Campbell MD Address: Address: [address] [place] [address]
--- OUTSIDE RECORDS SUMMARY | 2023-05-21 15:34 | XMS_ITS | Continuity of Care Document ---
Author Name Unknown Organization [facility] Address [address] [place] [address] Care Team Providers Care Straw Boss Name Role Phone KENN BRENNER Primary Care Physician Encounter [facility] NBR [id number] Date(s): 12/27/22 - 12/27/[address] [address]- [place] Discharge Disposition: Home or Self Care Attending Physician: Mary Campbell MD Admitting Physician: Mary Campbell MD Referring Physician: Mary Campbell MD Allergies, Adverse Reactions, [...] 11/15/14 Tu rded 1Result Comment: Unit: Unknown Prop Cutter: iMICROQ 2Result Comment: Unit: Unknown 3Result Comment: Unit: [...] mo, # 1 EA, 4 Refill(s), Pharmacy: [facility] Start Date: 12/27/22 Stop Date: 03/21/24 Status: Ordered Flonase Nasal, PRN as needed, 0 Refill(s) Start Date: 04/09/22 Status: Ordered gabapentin 100 mg oral capsule 200 mg = 2 cap, Oral, every evening, Start with 1 capsule at bedtime. If tolerating for 2 nights, can increase to 2 capsules at bedtime. Monitor for drowsiness., # 60 cap, 0 Refill(s), Pharmacy: [facility] Start Date: 08/14/22 Status: Ordered ibuprofen 100 mg oral tablet 200 mg = 2 tab, Oral, every 6 hr, PRN as needed for fever, # 80 tab, 1 Refill(s), Pharmacy: [facility] Start Date: 11/02/22 Status: Ordered ketotifen [...] , # 90 cap, 3 Refill(s), Pharmacy: [facility] Start Date: 10/16/22 Stop Date: 10/11/23 Status: Ordered Proventil HFA 90 mcg/inh inhalation aerosol QID, 2 puffs as needed, 0 Refill(s) Start Date: 04/27/22 Status: Ordered Singulair 10 mg =, Oral, Daily, 0 Refill(s) Start Date: 10/24/22 Status: Ordered Tirosint 50 mcg (0.05 mg) oral capsule 50 mcg = 1 cap, Oral, Daily, # 90 cap, 0 Refill(s), Pharmacy: [facility] Start Date: 08/23/22 Status: Ordered traZODone 150 mg oral tablet 90 EA, TAKE 1 TABLET BY MOUTH EVERY DAY AT BEDTIME, 0 Refill(s) Start Date: 04/09/22 Status: Ordered traZODone 50 mg oral tablet 50 mg = 1 tab, Oral, every night at bedtime, as needed for insomnia. In addition to 150mg., # 30 tab, 3 Refill(s), Pharmacy: [facility] Start Date: 05/16/22 Status: Ordered triamcinolone 0.025% topical cream 1 karina, Topical, Daily, # 15 g, 0 Refill(s), Pharmacy: [facility] Start Date: 08/07/22 Stop Date: 08/21/22 Status: Ordered Tylenol 8 Hour 650 mg oral tablet, extended release 650 mg = 1 tab, Oral, BID, PRN as needed for fever, # 50 tab, 1 Refill(s), Pharmacy: [facility] Start Date: 11/02/22 Status: Ordered Tylenol Extra Strength 500 mg oral tablet QID, as needed, 0 Refill(s) Start Date: 04/27/22 Status: Ordered Vagifem 10 mcg vaginal tablet 10 mcg = 1 tab, VAG, Mon/Fri, # 26 tab, 4 Refill(s), Pharmacy: [facility] Start Date: 10/25/22 Stop Date: [...] Completed Surgery 2 06/2020 Completed Drainage of spool sander y canal abscess 3 10/2016 Completed Procedure [...] Exam Date Time Procedure Performing Provider Status 12/27/22 11:20 AM BD Bone Density DEXA Axial Skeleton Jo-Ann Woods; John (Verified) Notes: (BD Bone Density DEXA Axial Skeleton) Reason For Exam: osteopenia monitoring BD Bone Density DEXA Axial Skeleton EXAM DESCRIPTION: BD Bone Density DEXA Axial Skeleton 12/27/2022 INDICATION: OSTEOPENIA MONITORING TECHNIQUE: Bone Densitometry (DEXA) was performed. COMPARISON: 11/23/2020 FINDINGS: Average bone mineral density of the lumbar spine from L1-4 is 1.264 g per sq cm corresponding to a T-score of 2.0. No significant bone loss in the lumbar region. 4.3% interval increase in bone density in this region. Bone mineral density in the left femoral neck is 0.700 g per sq cm corresponding to a T-score of -1.3. Findings consistent with osteopenia. Increased fracture risk. 3.2% interval decrease in bone density in this region. Bone mineral density involving the distal 1/3 of the left forearm is 0.695 g per sq cm corresponding to a T-score of 0.0. No significant bone loss in this region. 0.7% interval decrease in bone density in this region. FRAX-10 year probability of fracture: Major osteoporotic fracture 10%, hip fracture 1.7%. IMPRESSION: Findings consistent with osteopenia. Increased fracture risk. JOB #: [id number] Final Signed by: Carlos Martinez MD Signed (Electronic Signature): 12/27/2022 12:07 pm Social History Social History Type Response Tobacco Never tobacco user T obacco Use:. Sex Patient Care team information Care Team Personnel Name: KENN BRENNER Position: No Access Member Role: Primary Care Physician Address: Address: [address] [place] [address] Name: Yasmine Strickland APRN Position: Physician Member Role: Nurse Practitioner Address: Address: [address] [place] [address] Care Team Related Persons Name: MARIANO MORENO Address: Home Name: DESEAN ESPARZA Address: Home [address] [place] [phone] [facility] Name: DESEAN ESPARZA Address: Home [address] [place] [id number] [facility]
--- OUTSIDE RECORDS SUMMARY | 2023-05-21 15:34 | XMS_ITS | Continuity of Care Document ---
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 Start Date: 03/14/23 Status: Ordered Singulair 10 mg =, Oral, Daily, 0 Refill(s) Start Date: 10/24/22 Status: Ordered Tirosint 50 mcg (0.05 mg) oral capsule 50 mcg = 1 cap, Oral, Daily, # 90 cap, 0 Refill(s), Pharmacy: [facility] Start Date: 08/23/22 Status: Ordered traZODone [...] Daily, # 15 g, 0 Refill(s), Pharmacy: [facility] Start Date: 08/07/22 Stop Date: 08/21/22 Status: Ordered Tylenol 8 Hour 650 mg oral tablet, extended release 650 mg = 1 tab, Oral, BID, PRN as needed for fever, # 50 tab, 1 Refill(s), Pharmacy: [facility] Start Date: 11/02/22 Status: Ordered Tylenol Extra Strength 500 mg oral tablet QID, as needed, 0 Refill(s) Start Date: 04/27/22 Status: Ordered Vagifem 10 mcg vaginal tablet 10 mcg = 1 tab, VAG, Mon// at bedtime, # 36 tab, 3 Refill(s), Pharmacy: [facility] Start Date: 01/08/23 Status: Ordered Vagifem 10 mcg vaginal tablet 10 mcg = 1 tab, VAG, Sat/Sat, # 26 tab, 4 Refill(s), Pharmacy: [facility] Start Date: 10/25/22 Stop Date: [...] Completed Surgery 2 06/2020 Completed Drainage of insurance auditor y canal abscess 3 10/2016 Completed [...] in [facility] Results Laboratory List Name Date Free T4 03/14/23 T3 Free 03/14/23 T3 Total 03/14/23 Thyroid Stimulating Hormone 03/14/23 Most recent to oldest [Reference Range]: 1 T4 Free [0.61-1.12 ng/dL] 0.89 ng/dL 1 (03/14/23 10:05 AM) T3 Free [2.50-3.90 pg/mL] 2.82 pg/mL 2 (03/14/23 10:05 AM) TSH [0.45-5.33 mcIntlUnit/mL] 1.65 mcInt lUnit/mL (03/14/23 10:05 AM) T3 Total [0.87-1.78 ng/mL] 0.80 ng/mL 3 *LOW* (03/14/23 10:05 AM) 1Interpretive Data: Possible Interfering Substance: Biotin > 10 ng/mL may falsely elevate Free H3pjcscab. 2Interpretive Data: Possible Interfering Substance: Biotin >10 ng/mL may falsely elevate Free T3 results 3Interpretive Data: Possible Interfering Substance: Biotin >1 ng/mL may falsely elevate Total T3 results Social History Social History Type Response Tobacco Never tobacco user T obacco Use:. Sex Female Patient Care team information Care Team Personnel Name: KENN BRENNER Position: No Access Member Role: Primary Care Physician Address: Address: [address] [place] [address]- [place] Name: Yasmine Strickland APRN Position: Physician Member Role: Nurse Practitioner Address: Address: [address] [place] [address] Care Team Related Persons Name: MARIANO MORENO Name: DESEAN ESPARZA Address: [address] Name: DESEAN ESPARZA Address: [address] [id number] [facility]
--- OUTSIDE RECORDS SUMMARY | 2023-05-21 15:34 | XMS_ITS | Continuity of Care Document ---
Author Name Unknown Organization [facility] Address [address] [place] [address] Care Team Providers Care Presidential Support Specialist Name Role Phone Adrian FONG, Mary Primary Care Physician [phone] Encounter [facility] [id number] Date(s): 05/16/22 - 05/16/[address] [address]- [place] Discharge Disposition: Home or [...] Tests Radiology* MG Mammo Screening Bilateral 05/16/22 Immunizations Given and Recorded Vaccine Date Status Refusal Reason SARS-CoV-2 mRNA-1273 bivalent booster 04/04/22 Giv en Medications Abilify 2 mg oral tablet 2 mg = 1 tab, Oral, Daily, # 30 tab, 0 Refill(s), Pharmacy: [facility] Start Date: 05/16/22 Status: Ordered [...] Daily, # 30 tab, 3 Refill(s), Pharmacy: [facility] Start Date: 04/27/22 Status: Ordered naproxen 500 mg oral delayed release tablet BID, as needed, 0 Refill(s) Start Date: 04/27/22 Status: Ordered Niaspan ER 500 mg oral tablet, extended release 750 mg =, Oral, BID, # 100 tab, 0 Refill(s) Start Date: 04/27/22 Status: Ordered [place]-3 1000 mg oral capsule Daily, 0 Refill(s) [...] 150mg., # 30 tab, 3 Refill(s), Pharmacy: [facility] Start Date: 05/16/22 Status: Ordered [...] supraspinatus and calcific deposit, biceps tenodesis, decompression Results Laboratory List Name Date Lipid Panel 05/16/22 Most recent to oldest [Reference Range]: 1 Cholesterol Total [129-209 mg/dL] 356 mg /dL *HI* (05/16/22 11:30 AM) LDL 228.5 *NA* (05/16/22 11:30 AM) HDL [40-80 mg/dL] 116 mg/dL *HI* (05/16/22 11:30 AM) Chol/HDL 3.1 *NA* (05/16/22 11:30 AM) Triglycerides [10-150 mg/dL] 56 mg/dL (05/16/22 11:30 AM) Social History Social History Type Response Tobacco Never tobacco user T obacco Use:. Sex Patient Care team information Personnel Name: Mary Campbell MD Address: Address: [address] [place] [address]
--- OUTSIDE RECORDS SUMMARY | 2023-05-21 15:34 | XMS_ITS | Continuity of Care Document ---
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 If tolerating for 2 nights, can increase to 2 capsules at bedtime. Monitor for drowsiness., # 60 cap, 0 Refill(s), Pharmacy: [facility] Start Date: 08/14/22 Status: Ordered ibuprofen 100 mg oral tablet 200 mg = 2 tab, Oral, every 6 hr, PRN as needed for fever, # 80 tab, 1 Refill(s), Pharmacy: [facility] Start Date: 11/02/22 Status: Ordered ketotifen [...] , # 90 cap, 3 Refill(s), Pharmacy: [facility] Start Date: 10/16/22 Stop Date: 10/11/23 Status: Ordered Proventil HFA 90 mcg/inh inhalation aerosol QID, 2 puffs as needed, 0 Refill(s) Start Date: 04/27/22 Status: Ordered Singulair 10 mg =, Oral, Daily, 0 Refill(s) Start Date: 10/24/22 Status: Ordered Tirosint 50 mcg (0.05 mg) oral capsule 50 mcg = 1 cap, Oral, Daily, # 90 cap, 0 Refill(s), Pharmacy: [facility] Start Date: 08/23/22 Status: Ordered traZODone [...] fever, # 50 tab, 1 Refill(s), Pharmacy: [facility] Start Date: 11/02/22 Status: Ordered Tylenol Extra Strength 500 mg oral tablet QID, as needed, 0 Refill(s) Start Date: 04/27/22 Status: Ordered Vagifem 10 mcg vaginal tablet 10 mcg = 1 tab, VAG, Mon/Fri, # 26 tab, 4 Refill(s), Pharmacy: [facility] Start Date: 10/25/22 Stop [...] Completed Surgery 2 06/2020 Completed Drainage of tax auditor y canal abscess 3 10/2016 Completed [...] Date Time Procedure Performing Provider Status 12/27/22 4:44 PM XR Foot Complete 3+ Views Left Piasa , Jolene; Auth (Verified) Notes: (XR Foot Complete 3+ Views Left) Reason For Exam: left heel pain x2 weeks, eval bone spur vs plantar fasciitis XR Foot Complete 3+ Views Left EXAM DESCRIPTION: XR Foot Complete 3+ Views Left 12/27/2022 INDICATION: LEFT HEEL PAIN X2 WEEKS, EVAL BONE SPUR VS PLANTAR FASCIITIS COMPARISON: 02/06/2018 IMPRESSION: No acute fracture or dislocation Mild IP joint space narrowing consistent with mild arthritic changes No regional radiopaque soft tissue foreign body. JOB #: [id number] Final Signed by: Carlos Martinez MD Signed (Electronic Signature): 12/27/2022 4:46 pm Social History Social History Type Response Tobacco Never tobacco user T obacco Use:. Sex Patient Care team information Care Team Personnel Name: KENN BRENNER Rodolfo Position: No Access Member Role: Primary Care Physician Address: Address: [address] [place], [place] [id number] [place] [address] Name: Yasmine Strickland APRN Position: Physician Member Role: Nurse Practitioner Address: Address: [address] [place] [id number] Care Team Related Persons Name: MARIANO MORENO Address: Home Name: DESEAN ESPARZA Address: Home [address] [place] [phone] [facility] Name: DESEAN ESPARZA Address: [address]
--- OUTSIDE RECORDS SUMMARY | 2023-05-21 15:34 | XMS_ITS | Continuity of Care Document ---
Author Name Unknown Organization [facility] Address [address] [place] [address] Care Team Providers Care Manager Intensive Care Name Role Phone KENN BRENNER Rodolfo Primary Care Physician [phone] Encounter [facility] NBR [id number] Date(s): 01/02/23 - 01/02/23 [facility] [address] [place], [place] [address] Encounter Diagnosis Lumbar radicular pain(Discharge Diagnosis) - 01/02/23 Lumbar foraminal stenosis(Discharge Diagnosis) - 01/02/23 Lumbar canal stenosis(Discharge Diagnosis) - 01/02/23 Discharge Disposition: Home or Self Care Attending Physician: Nell Daugherty DO Referring Physician: Nell Daugherty DO Allergies, Adverse Reactions, Alerts Substance Reaction Severity Status amoxicillin Unknown Active morphine Unknown Active fenofibrate Unknown Active citalopram Unknown Active penicillins Unknown Active sulfa drugs Unknown Active Augmentin Moderate Active Bactrim Unknown Active Zocor Unknown Active Voltaren Unknown Active Lipitor Unknown Active Crestor Unknown Active OxyCONTIN Unknown Active Bees/Stinging Insects Unknown Active Effexor Unknown Active Sulfabenzamide/Sulfacetamide/Sulfathiazole Nausea Moderate Active Assessment and Plan Future Appointments Functional Status 01/02/23 Family Member Travel History Last travel within 6 months Recent Travel History No recent travel Other exposure to Infectious Disease Non e Immunizations Given and Recorded Vaccine Date Status Refusal Reason SARS-CoV-2 (COVID-19) mRNA-1273(6y+ biva 04/04/22 Given tetanus/diphth/pertuss (Tdap) adult/adol 1 11/27/21 Recorded tetanus/diphth/pertuss (Tdap) adult/adol 9/12/18 Recorded tetanus/diphth/pertuss (Tdap) adult/adol 10/15/16 Recorded tetanus/diphth/pertuss [...] 11/15/14 Tu rded 1Result Comment: Unit: Unknown 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: [employer] 2Result Comment: Unit: Unknown 3Result Comment: [...] fever, # 80 tab, 1 Refill(s), Pharmacy: [facility] Start Date: 11/02/22 Status: Ordered ketotifen [...] Date: 10/31/22 Stop Date: 01/29/23 Status: Ordered Proventil HFA 90 mcg/inh inhalation aerosol QID, 2 puffs as needed, 0 Refill(s) Start Date: 04/27/22 Status: Ordered Singulair 10 mg =, Oral, Daily, 0 Refill(s) Start Date: 10/24/22 Status: Ordered Tirosint 50 mcg (0.05 mg) oral capsule 50 mcg = 1 cap, Oral, Daily, # 90 cap, 0 Refill(s), Pharmacy: [facility] Start Date: 08/23/22 Status: Ordered traZODone [...] fever, # 50 tab, 1 Refill(s), Pharmacy: [facility] Start Date: 11/02/22 Status: Ordered Tylenol [...] Completed Surgery 2 06/2020 Completed Drainage 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 Sex Patient Care team information Care Team Personnel Name: KENN BRENNER Position: No Access Member Role: Primary Care Physician Address: Address: [address] [place] [address] Name: Yasmine Strickland APRN Position: Physician Member Role: Nurse Practitioner Address: Address: [address] [place] [address] Care Team Related Persons Name: MARIANO MORENO Address: Home Name: DESEAN ESPARZA Address: Home [address] [place] [phone] [facility] Name: DESEAN ESPARZA Address: Home [address] [place] [id number]
--- OUTSIDE RECORDS SUMMARY | 2023-05-21 15:34 | XMS_ITS | Continuity of Care Document ---
Author Name Unknown Organization [facility] Address [address] [place] [address] Care Team Providers Care Hand Bobbin Cleaner Name Role Phone KENN BRENNER Primary Care Physician Encounter [facility] NBR [id number] Date(s): 12/28/22 - 12/28/22 [facility] [address] [place] [address] [place] Discharge Disposition: Home Allergies, Adverse [...] 08/31/20 Recorded SARS-CoV-2 (COVID-19) mRNA-1273 vaccine 4 2/24/21 Recorded influenza virus vaccine, inactivated 5 04/18/21 [...] 11/15/14 Tu rded 1Result Comment: Unit: Unknown Throw Out Clerk: Penemarie K Murphy 2Result Comment: Unit: Unknown 3Result Comment: Unit: [...] mo, # 1 EA, 4 Refill(s), Pharmacy: [facility] Start Date: 12/27/22 Stop Date: 03/21/24 Status: Ordered Flonase Nasal, PRN as needed, 0 Refill(s) Start Date: 04/09/22 Status: Ordered gabapentin 100 mg oral capsule 200 mg = 2 cap, Oral, every evening, Start with 1 capsule at bedtime. If tolerating for 2 nights, can increase to 2 capsules at bedtime. Monitor for drowsiness., # 60 cap, 0 Refill(s), Pharmacy: [facility] Start Date: 08/14/22 Status: Ordered ibuprofen 100 mg oral tablet 200 mg = 2 tab, Oral, every 6 hr, PRN as needed for fever, # 80 tab, 1 Refill(s), Pharmacy: [facility] Start Date: 11/02/22 Status: Ordered ketotifen [...] , # 90 cap, 3 Refill(s), Pharmacy: [facility] Start Date: 10/16/22 Stop Date: 10/11/23 Status: Ordered Proventil HFA 90 mcg/inh inhalation aerosol QID, 2 puffs as needed, 0 Refill(s) Start Date: 04/27/22 Status: Ordered Singulair 10 mg =, Oral, Daily, 0 Refill(s) Start Date: 10/24/22 Status: Ordered Tirosint 50 mcg (0.05 mg) oral capsule 50 mcg = 1 cap, Oral, Daily, # 90 cap, 0 Refill(s), Pharmacy: [facility] Start Date: 08/23/22 Status: Ordered [...] # 50 tab, 1 Refill(s), Pharmacy: [facility] Start Date: 11/02/22 Status: Ordered Tylenol [...] Completed Surgery 2 06/2020 Completed Drainage of it program auditor y canal abscess 3 10/2016 Completed [...] Member Role: Primary Care Physician Address: Address: [address] [place] [phone] [place] [address] Name: Yasmine Strickland APRN Position: Physician Member Role: Nurse Practitioner Address: Address: [address] [place] [address] Care Team Related Persons Name: MARIANO MORENO Address: Home Name: DESEAN ESPARZA Address: Home [address] [place] [phone] [facility] Name: DESEAN ESPARZA Address: Home [address] [place] [id number]
--- OUTSIDE RECORDS SUMMARY | 2023-05-21 15:34 | XMS_ITS | Continuity of Care Document ---
Author Name Unknown Organization [facility] Address [address] [place] [id number] Care Team Providers Care Organizational Development Consultant Name Role Phone Mary Campbell MD Primary Care Physician Encounter [facility] NBR [id number] Date(s): 04/10/22 - 04/10/[address] [address]- [place] Discharge Disposition: Home or Self Care Attending Physician: Jere Estevez DO Admitting Physician: Jere Estevez DO Allergies, Adverse Reactions, [...] Plan Future Appointments Diagnostic Tests Pending * Y003-[id number] Whey LC 04/10/22 * [id number] Milk LC 04/10/22 * [id number] Casein LC 04/10/22 * [id number] Wheat LC 04/10/22 Future Scheduled Tests Radiology* XR Knee Complete [...] day, # 5 g, 0 Refill(s), Pharmacy: [facility] Start Date: 04/10/22 Status: Ordered Glory Allergy 0 Refill(s) Start Date: 04/10/22 Status: Ordered Flonase 0 Refill(s) Start Date: 04/09/22 Status: Ordered FLUoxetine (Eqv-Prozac) 10 mg oral tablet 10 mg = 1 tab, 0 Refill(s) Start Date: 04/09/22 Status: Ordered naltrexone 50 mg oral tablet 1 tab, Oral, Daily, # 30 tab, 0 Refill(s), Pharmacy: [id number] Start Date: 03/26/22 Status: Ordered Tirosint 50 [...] Personnel Name: Mary Campbell MD Address: Address: [address] [place] [address]
--- OUTSIDE RECORDS SUMMARY | 2023-05-21 15:35 | XMS_ITS | Continuity of Care Document ---
Author Name Unknown Organization [facility] Address [address] [place] [id number] Care Team Providers Care Educational Resource Coordinator Name Role Phone Adrian FONG, Mary Primary Care Physician [phone] [id number] Date(s): 06/25/22 - 06/25/[address] [address] [place] Discharge Disposition: Home or [...] OxyCONTIN Unknown Active Bees/Stinging Insects Unknown Active Augmentin Moderate Active Assessment and Plan Future Appointments Immunizations Given and Recorded Vaccine Date Status Refusal Reason SARS-CoV-2 mRNA-1273 bivalent booster 04/04/22 Giv en Medications Abilify 2 mg oral tablet 2 mg = 1 tab, Oral, Daily, # 90 tab, 1 Refill(s), Pharmacy: [facility] #[id number] Start Date: 05/28/22 Status: Ordered Abilify 2 mg oral tablet 2 mg = 1 tab, Oral, BID, call MD with update in 60 days or sooner, # 180 tab, 0 Refill(s), Pharmacy: [facility] #[id number] Start Date: 05/28/22 Stop Date: 08/26/22 Status: [...] Daily, # 30 tab, 3 Refill(s), Pharmacy: [facility] Start Date: 04/27/22 Status: Ordered naproxen 500 mg oral delayed release tablet BID, as needed, 0 Refill(s) Start Date: 04/27/22 Status: Ordered Niaspan ER 500 mg oral tablet, extended release 750 mg =, Oral, BID, # 100 tab, 0 Refill(s) Start Date: 04/27/22 Status: Ordered [place]-3 1000 mg oral capsule Daily, 0 Refill(s) [...] 150mg., # 30 tab, 3 Refill(s), Pharmacy: [facility] Start Date: 05/16/22 Status: [...] Personnel Name: Mary Campbell MD Address: Address: [address] [place] [address]
--- OUTSIDE RECORDS SUMMARY | 2023-05-21 15:35 | XMS_ITS | Continuity of Care Document ---
Author Name Unknown Organization [facility] Address [address] [place] [address] Care Team Providers Care Training Analyst Name Role Phone Veronica Barrios APRN Primary Care Physician Encounter [facility] NBR [id number] Date(s): 11/07/22 - 11/07/[address] [address] [place] Encounter Diagnosis Fatigue(Discharge Diagnosis) - 04/12/22 Urinary incontinence(Discharge Diagnosis) - 06/25/22 Encounter for other administrative examinations(Final) - Discharge [...] 11/15/14 Tu rded 1Result Comment: Unit: Unknown Balance Clerk: Mundi Pasteur 2Result Comment: Unit: Unknown 3Result Comment: [...] drowsiness., # 60 cap, 0 Refill(s), Pharmacy: [facility] Start Date: 08/14/22 Status: Ordered ibuprofen 100 mg oral tablet 200 mg = 2 tab, Oral, every 6 hr, PRN as needed for fever, # 80 tab, 1 Refill(s), Pharmacy: [facility] Start Date: 11/02/22 Status: Ordered ketotifen 0.025% ophthalmic solution 1 drops, Eye-Both, BID, # 7.5 mL, 0 Refill(s) Start Date: 08/17/22 Status: Ordered meloxicam 7.5 mg oral tablet 7.5 mg = 1 tab, Oral, Daily, # 30 tab, 3 Refill(s), Pharmacy: [facility] Start Date: 04/27/22 Status: Ordered Nexletol 180 mg oral tablet 180 mg = 1 tab, Oral, every other day, # 45 tab, 0 Refill(s) Start Date: 10/31/22 Stop Date: 01/29/23 Status: Ordered omeprazole 20 mg oral delayed release capsule 20 mg = 1 cap, Oral, Daily, Appointment 10/29/22 , # 90 cap, 3 Refill(s), Pharmacy: [facility] Start Date: 10/16/22 Stop Date: 10/11/23 Status: Ordered Proventil HFA 90 mcg/inh inhalation aerosol QID, 2 puffs as needed, 0 Refill(s) Start Date: 04/27/22 Status: Ordered Singulair 10 mg =, Oral, Daily, 0 Refill(s) Start Date: 10/24/22 Status: Ordered Tirosint 50 mcg (0.05 mg) oral capsule 50 mcg = 1 cap, Oral, Daily, # 90 cap, 0 Refill(s), Pharmacy: [facility] Start Date: 08/23/22 Status: Ordered traZODone 150 mg oral tablet 90 EA, TAKE 1 TABLET BY MOUTH EVERY DAY AT BEDTIME, 0 Refill(s) Start Date: 04/09/22 Status: Ordered traZODone 50 mg oral tablet 50 mg = 1 tab, Oral, every night at bedtime, as needed for insomnia. In addition to 150mg., # 30 tab, 3 Refill(s), Pharmacy: [facility] Start Date: 05/16/22 Status: Ordered triamcinolone 0.025% topical cream 1 karina, Topical, Daily, # 15 g, 0 Refill(s), Pharmacy: [facility] Start Date: 08/07/22 Stop Date: 08/21/22 Status: Ordered Tylenol 8 Hour 650 mg oral tablet, extended release 650 mg = 1 tab, Oral, BID, PRN as needed for fever, # 50 tab, 1 Refill(s), Pharmacy: [facility] Start Date: 11/02/22 Status: Ordered Tylenol Extra Strength 500 mg oral tablet QID, as needed, 0 Refill(s) Start Date: 04/27/22 Status: Ordered Vagifem 10 mcg vaginal tablet 10 mcg = 1 tab, VAG, Mon/Fri, # 26 tab, 4 Refill(s), Pharmacy: [facility] Start Date: 10/25/22 Stop [...] Completed Surgery 2 06/2020 Completed 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
--- OUTSIDE RECORDS SUMMARY | 2023-05-21 15:35 | XMS_ITS | Continuity of Care Document ---
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: [employer] 2Result Comment: Unit: Unknown 3Result Comment: Unit: [...] fever, # 80 tab, 1 Refill(s), Pharmacy: [facility] Start Date: 11/02/22 Status: Ordered Nexletol [...] Daily, # 90 cap, 0 Refill(s), Pharmacy: [facility] Start Date: 08/23/22 Status: Ordered traZODone [...] fever, # 50 tab, 1 Refill(s), Pharmacy: [facility] Start Date: 11/02/22 Status: Ordered Tylenol Extra Strength 500 mg oral tablet QID, as needed, 0 Refill(s) Start Date: 04/27/22 Status: Ordered Vagifem 10 mcg vaginal tablet 10 mcg = 1 tab, VAG, Sat// at bedtime, # 36 tab, 3 Refill(s), [facility]acy: [facility] Start Date: 01/08/23 Status: Ordered Vagifem 10 mcg vaginal tablet 10 mcg = 1 tab, VAG, Mon/Sat, # 26 tab, 4 Refill(s), [facility] [...] Completed Surgery 2 06/2020 Completed Drainage of clinical auditor y canal abscess 3 10/2016 Completed [...] Role: Primary Care Physician Address: Address: [address] [place] [id number] [place] [address] Name: Yasmine Strickland APRN Position: Physician Member Role: Nurse Practitioner Address: Address: [address] [place] [address] Care Team Related Persons Name: MARIANO MORENO Address: Home Name: DESEAN ESPARZA Address: Home [address] [place] [address] Name: DESEAN ESPARZA Address: Home [address] [place] [phone] [facility]
--- OUTSIDE RECORDS SUMMARY | 2023-05-21 15:35 | XMS_ITS | Continuity of Care Document ---
Author Name Unknown Organization [facility] Address [address] [place] [address] Care Team Providers Care Design Release Engineer Name Role Phone Unavailable, Physician Primary Care Physician Un available Encounter [facility] NBR [id number] Date(s): 11/27/22 - 11/27/22 [facility] [address] [place], [place] 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 2Result Comment: Unit: Unknown 3Result Comment: [...] drowsiness., # 60 cap, 0 Refill(s), Pharmacy: [facility] Start Date: 08/14/22 Status: Ordered ibuprofen 100 mg oral tablet 200 mg = 2 tab, Oral, every 6 hr, PRN as needed for fever, # 80 tab, 1 Refill(s), Pharmacy: [facility] Start Date: 11/02/22 Status: Ordered ketotifen [...] , # 90 cap, 3 Refill(s), Pharmacy: [facility] Start Date: 10/16/22 Stop Date: 10/11/23 Status: Ordered Proventil HFA 90 mcg/inh inhalation aerosol QID, 2 puffs as needed, 0 Refill(s) Start Date: 04/27/22 Status: Ordered Singulair 10 mg =, Oral, Daily, 0 Refill(s) Start Date: 10/24/22 Status: Ordered Tirosint 50 mcg (0.05 mg) oral capsule 50 mcg = 1 cap, Oral, Daily, # 90 cap, 0 Refill(s), Pharmacy: [facility] Start Date: 08/23/22 Status: Ordered traZODone [...] # 50 tab, 1 Refill(s), Pharmacy: [facility] Start Date: 11/02/22 Status: Ordered Tylenol Extra Strength 500 mg oral tablet QID, as needed, 0 Refill(s) Start Date: 04/27/22 Status: Ordered Vagifem 10 mcg vaginal tablet 10 mcg = 1 tab, VAG, Mon/Fri, # 26 tab, 4 Refill(s), Pharmacy: [facility] Start Date: 10/25/22 [...] Completed Surgery 2 06/2020 Completed 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 s/p TLESI at L4-5 on 10/24/22 Reports 50% relief from the injection reports residual low back pain which worsens with prolonged standing - there is radiation to the lateral hips bilaterally, posterior thighs and calves. ??She can also experience radiation to the right inner thigh to the knee. She reports that 50% of the discomfort is in the low back and 50% in the legs pain level 5/10 today ?? Review of Systems Denies new weakness, denies numbness/tingling in the legs, denies falls.?? Denies adverse reaction to the procedure. Physical Exam Not performed as this is a telehealth assessment Assessment/Plan Lumbar canal stenosis??M48.061,??Lumbar foraminal stenosis??M48.061 ?? Lumbar radicular pain??M54.16 Ordered: Surgical Procedure Booking Request LTTL, 11/27/22 11:28:00 EDT, lumbar radicular pain, Lumbar radicular pain, Outpatient, TLESI L3-4, Primary Procedure, 45, Special equipment needed (include C-Arm requests)?, Local, 30, [place], [id number] ?? Yessenia follows up today to review her response to??recent lumbar epidural steroid injection performed at L4-5 on 10/24/2022. ??She reports approximately 50% relief of her back and leg symptoms.?? She reports residual discomfort in the low back radiating to the lateral hip region??and posterior??thighand??calves. ??She also has inner right thigh pain??to the knee.?? Reviewed MRI again today. There??is canal stenosis at L1-2, L2-3??and L3-4. ??There are also varying degrees of foraminal narrowing.There is severe right foraminal narrowing at L3 which could explain the inner right thigh pain to the knee. ?? We discussed the option to repeat a lumbar epidural steroid injection.?We discussed repeating a midline injection, however, will consider performing the injection??one level??proximally to the previous injection,??at L3-4.?? Depending on her response to this procedure, we could also consider a right L3 transforaminal RANDALL to target the inner/medial thigh pain in the right leg at a later date.??We also reviewed the option to trial Lyrica. ??She previously tried gabapentin and she felt tired on this medication. ??We discussed that??similar??side effects are possible with Lyrica although many??people??may tolerate 1 of these medications better than the other.?? We also reviewed the option to obtain a surgical opinion. ??She is not interested in surgery at this time. ?? After reviewing the options, she would like to trial a repeat midline epidural??injection. ??She will call the office with an update 2 weeks postinjection.?? If she has not experienced significant relief and would like to trial another injection??to address the inner right thigh pain, we will next wan norton forward with a trial of a right L3 transforaminal RANDALL. ??If this second injection option is ineffective, she would then like to trial the Lyrica. ?? She will return for an epidural steroid injection. Images ?? MRI lumbar spine 08/2022 reviewed ? Telehealth consent obtained: Yes?? Communication Type Utilized: Phone Patient Location: Home Provider Location: Office Names of individuals involved and Role or Relationship to Patient: Self Patient:??Yessenia Luong Provider:??Nell Fitch, DO ? Approximately 32 minutes spent in this encounter including about 20 minutes on phone with Yessenia and additional time on chart review, imaging review, and documentation. Problem List/Past Medical History Ongoing [...] (03/04/2012)???Hysterectomy (1991)???Appendectomy (1961)???Tonsillectomy (1961)???Birthof child??? section Medications Inpatient Kenalog-40, 40 mg, Intra-articular, Once Home Clarinex 5 mg oral tablet, 5 mg= 1 tab, Oral, Daily EpiPen 2-Melchor 0.3 mg injectable kit, 0.3 mg, As Directed, PRN Flonase, Nasal, PRN gabapentin 100 mg oral capsule, 200 mg= 2 cap, Oral, every evening ibuprofen 100 mg oral tablet, 200 mg= 2 tab, Oral, every 6 hr, PRN, 1 refills ketotifen 0.025% ophthalmic solution, 1 drops, Eye-Both, BID meloxicam 7.5 mg oral tablet, 7.5 mg= [...] Unknown. Cause of : Electronically Signed on 11/27/22 12:34 PM Nell Daugherty DO Patient Care team information Care Team Personnel Name: Yasmine Strickland APRN Position: Physician Member Role: Nurse Practitioner Address: Address: [address] [place] [address] Name: Unavailable, Physician Position: No Access Member Role: Primary Care Physician Care Team Related Persons Name: MARIANO MORENO Address: Home Name: DESEAN LUONG Address: Home [address] [place] [address] Name: DESEAN LUONG Address: [address] [phone] [place]
--- OUTSIDE RECORDS SUMMARY | 2023-05-21 15:35 | XMS_ITS | Continuity of Care Document ---
Author Name Unknown Organization [facility] Address [address] [place] [address] Care Team Providers Care Sole Edge Inker Machine Name Role Phone KEELY GOMEZ Primary Care Physician [phone] Encounter [facility] NBR [id number] Date(s): 11/28/22 - 11/28/[address] [address] Encounter Diagnosis Major depressive disorder, recurrent, moderate(Final) - Vitamin D deficiency, unspecified(Final) - Discharge Disposition: Home or Self Care Attending Physician: KEELY GOMEZ Admitting Physician: KEELY GOMEZ Referring Physician: KEELY GOMEZ Allergies, Adverse Reactions, Alerts Substance Reaction Severity Status amoxicillin Unknown Active morphine Unknown Active fenofibrate Unknown Active citalopram Unknown Active penicillins Unknown Active sulfa drugs Unknown Active Augmentin Moderate Active Bactrim Unknown Active Voltaren Unknown Active Sulfabenzamide/Sulfacetamide/Sulfathiazole Nausea Moderate Active Lipitor Unknown Active Crestor Unknown Active OxyCONTIN Unknown Active Bees/Stinging Insects Unknown Active Zocor Unknown Active Effexor Unknown Active Assessment and Plan Future Appointments Future Scheduled Tests Radiology* BD Bone Density DEXA Axial Skeleton 12/27/22 Immunizations Given and Recorded Vaccine Date Status [...] 11/15/14 Tu rded 1Result Comment: Unit: Unknown 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 2Result Comment: Unit: Unknown 3Result Comment: [...] drowsiness., # 60 cap, 0 Refill(s), Pharmacy: [facility] Start Date: 08/14/22 Status: Ordered ibuprofen 100 mg oral tablet 200 mg = 2 tab, Oral, every 6 hr, PRN as needed for fever, # 80 tab, 1 Refill(s), Pharmacy: [facility] Start Date: 11/02/22 Status: Ordered ketotifen [...] , # 90 cap, 3 Refill(s), Pharmacy: [facility] Start Date: 10/16/22 Stop Date: 10/11/23 Status: Ordered Proventil HFA 90 mcg/inh inhalation aerosol QID, 2 puffs as needed, 0 Refill(s) Start Date: 04/27/22 Status: Ordered Singulair 10 mg =, Oral, Daily, 0 Refill(s) Start Date: 10/24/22 Status: Ordered Tirosint 50 mcg (0.05 mg) oral capsule 50 mcg = 1 cap, Oral, Daily, # 90 cap, 0 Refill(s), Pharmacy: [facility] Start Date: 08/23/22 Status: Ordered traZODone [...] # 50 tab, 1 Refill(s), [facility]acy: [facility] Start Date: 11/02/22 Status: Ordered [...] in [facility] Results Laboratory List Name Date Comprehensive Metabolic Panel 11/28/22 TSH w/ Rflx to Free T4 11/28/22 Vitamin D 25 Hydroxy Level 11/28/22 Most recent to oldest [Reference Range]: 1 BUN [8-26 mg/dL] 19 mg/dL (11/28/22 12:50 PM) Glucose Level [74-106 mg/dL] 95 mg/dL (11/28/22 12:50 PM) Potassium Level [3.5-5.1 mmol/L] 3.8 mmo l/L (11/28/22 12:50 PM) AST [15-41 IntlUnit/L] 27 IntlUnit/L (11/28/22 12:50 PM) ALT [14-54 IntlUnit/L] 23 IntlUnit/L (11/28/22 12:50 PM) Osmolality [275-295 mOsm/kg] 272 mOsm/kg *LOW* (11/28/22 12:50 PM) Sodium Level [134-143 mmol/L] 135 mmol/L (11/28/22 12:50 PM) Vitamin D 25 OH [30.0-100.0 ng/mL] 40.3 ng/mL 1 (11/28/22 12:50 PM) Calcium Level [8.9-10.3 mg/dL] 9.7 mg/dL (11/28/22 12:50 PM) Albumin Level [3.5-5.0 g/dL] 4.2 g/dL (11/28/22 12:50 PM) Protein Total [6.5-8.1 g/dL] 6.9 g/dL (11/28/22 12:50 PM) Bilirubin Total [0.2-1.2 mg/dL] 0.9 mg/d L (11/28/22 12:50 PM) Alk Phos [38-130 IntlUnit/L] 66 IntlUnit /L (11/28/22 12:50 PM) CO2 [22-32 mmol/L] 29 mmol/L (11/28/22 12:50 PM) TSH [0.45-5.33 mIntlUnit/mL] 2.08 mIntlU nit/mL (11/28/22 12:50 PM) Chloride Level [98-111 mmol/L] 99 mmol/L (11/28/22 12:50 PM) A/G Ratio 1.6 *NA* (11/28/22 12:50 PM) BUN/Creat Ratio [8.0-20.0] 22.9 *HI* (11/28/22 12:50 PM) Globulin 2.7 *NA* (11/28/22 12:50 PM) Creatinine Level [0.44-1.00 mg/dL] 0.83 mg/dL (11/28/22 12:50 PM) Anion Gap [3.0-12.0] 7.0 (11/28/22 12:50 PM) eGFR CKD-EPI [>=60 mL/min/1.73 m2] 74 mL /min/1.73 m2 (11/28/22 12:50 PM) 1Interpretive Data: VIT D STATUS: RANGE: Deficient <20 ng/mL Insufficiency 20-30 ng/mL Sufficiency 30-100 ng/mL Toxicity >100 ng/mL Patients that have undergone flourescein dye angiography without allowing enough time for clearanceof the flourescein dye may have falsely elevated Vitamin D levels. Social History Social History Type Response Tobacco Never tobacco user T obacco Use:. Sex Patient Care team information Care Team Personnel Name: KEELY GOMEZ Position: No Access Member Role: Primary Care Physician Address: Address: [address] Name: Yasmine Strickland APRN Position: Physician Member Role: Nurse Practitioner Address: Address: [address] [place] [address] Care Team Related Persons Name: MARIANO MORENO Address: Home Name: DESEAN ESPARZA Address: Home [address] [place] [address] Name: DESEAN ESPARZA Address: [address] [phone] [facility]
--- OUTSIDE RECORDS SUMMARY | 2023-05-21 15:35 | XMS_ITS | Continuity of Care Document ---
Author Name Unknown Organization [facility] Address [address] [place] [address] Care Team Providers Care Solutions Specialist Name Role Phone Veronica Barrios APRN Primary Care Physician Encounter [facility] NBR [id number] Date(s): 11/02/22 - 11/02/[address] [address]- [place] Discharge Disposition: Home or Self Care Attending Physician: Ines Gross APRN, Admitting Physician: Ines Gross APRN, Referring Physician: Ines Gross APRN, Allergies, Adverse Reactions, [...] 11/15/14 Recorded pneumococcal 23-polyvalent vaccine 9 11/15/14 Ut rded 1Result Comment: Unit: Unknown 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[employer] 2Result Comment: Unit: Unknown 3Result Comment: [...] drowsiness., # 60 cap, 0 Refill(s), Pharmacy: [facility] Start Date: 08/14/22 Status: Ordered ibuprofen 100 mg oral tablet 200 mg = 2 tab, Oral, every 6 hr, PRN as needed for fever, # 80 tab, 1 Refill(s), Pharmacy: [facility] Start Date: 11/02/22 Status: Ordered ketotifen [...] , # 90 cap, 3 Refill(s), Pharmacy: [facility] Start Date: 10/16/22 Stop Date: 10/11/23 Status: Ordered Proventil HFA 90 mcg/inh inhalation aerosol QID, 2 puffs as needed, 0 Refill(s) Start Date: 04/27/22 Status: Ordered Singulair 10 mg =, Oral, Daily, 0 Refill(s) Start Date: 10/24/22 Status: Ordered Tirosint 50 mcg (0.05 mg) oral capsule 50 mcg = 1 cap, Oral, Daily, # 90 cap, 0 Refill(s), Pharmacy: [facility] Start Date: 08/23/22 Status: Ordered traZODone [...] fever, # 50 tab, 1 Refill(s), Pharmacy: [facility] Start Date: 11/02/22 Status: Ordered Tylenol [...] Exam Date Time Procedure Performing Provider Status 11/02/22 1:07 PM XR Hand Complete 3+ Views Left Deacon Rhodes; Auth (Verified) Notes: (XR Hand Complete 3+ Views Left) Reason For Exam: Thumb pain XR Hand Complete 3+ Views Left EXAM DESCRIPTION: XR Hand Complete 3+ Views Left 11/02/2022 INDICATION: THUMB PAIN COMPARISON: 04/27/2022 IMPRESSION: No acute fracture or dislocation 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 Small soft tissue calcifications adjacent to the 1st CMC joint. No significant change from prior study MCP and IP joint spaces are relatively well maintained without significant arthritic changes No regional radiopaque soft tissue foreign body. JOB #: [id number] Final Signed by: Carlos Martinez MD Signed (Electronic Signature): 11/02/2022 1:49 pm * Exam Date Time Procedure Performing Provider Status 11/02/22 1:07 PM XR Hand Complete 3+ Views Right Deacon Rhodes; Auth (Verified) Notes: (XR Hand Complete 3+ Views Right) Reason For Exam: thumb pain XR Hand Complete 3+ Views Right EXAM DESCRIPTION: XR Hand Complete 3+ Views Right 11/02/2022 INDICATION: THUMB PAIN COMPARISON: 04/27/2022 IMPRESSION: No acute fracture or dislocation. 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 No significant arthritic changes in the hand region. MCP and IP joint spaces are relatively well maintained No regional radiopaque soft tissue foreign body. JOB #: [id number] Final Signed by: Carlos Martinez MD Signed (Electronic Signature): 11/02/2022 1:47 pm Social History Social History Type Response Tobacco Never tobacco user T obacco Use:. Sex XR Hand - right GE 3 Views * Carlos Martinez MD: VERIFY, VERIFY Event Display: Report EXAM DESCRIPTION: XR Hand Complete 3+ Views Right 11/02/2022 INDICATION: THUMB PAIN COMPARISON: 04/27/2022 IMPRESSION: No acute fracture or dislocation. 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 No significant arthritic changes in the hand region. MCP and IP joint spaces are relatively well maintained No regional radiopaque soft tissue foreign body. 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 Small soft tissue calcifications adjacent to the 1st CMC joint. No significant change from prior study MCP and IP joint spaces are relatively well maintained without significant arthritic changes No regional radiopaque soft tissue foreign body. JOB #: [id number] Final Signed by: Carlos Martinez MD Signed (Electronic Signature): 11/02/2022 1:49 pm Patient Care team information Care Team Personnel Name: Yasmine Strickland APRN Position: Physician Member Role: Nurse Practitioner Address: Address: [address] [place] [address] Name: Veronica Barrios APRN Position: Physician Member Role: Primary Care Physician Address: Address: [address] [place], [place] [id number] [place] [address] Care Team Related Persons Name: DEACON MORENO Address: Home Name: DESEAN ESPARZA Address: Home [address] [place] [address] Name: DESEAN EPSARZA Address: Home [address] [place] [phone] [facility]
--- OUTSIDE RECORDS SUMMARY | 2023-05-21 15:35 | XMS_ITS | Continuity of Care Document ---
Author Name Unknown Organization [facility] Address [address] [place] [address] Care Team Providers Care Attorney Lawyer Name Role Phone Adrian FONG, Mary Primary Care Physician [id number] Date(s): 04/23/22 - 04/23/[address] [address]- [place] Discharge Disposition: Home or Self Care Attending Physician: Mary Campbell MD Admitting Physician: Mary Campbell MD Allergies, Adverse Reactions, [...] Daily, # 30 tab, 0 Refill(s), Pharmacy: [id number] Start Date: 03/26/22 Status: Ordered Tirosint 50 [...] Body Site Status of child Completed Results Laboratory List Name Date Automated Diff 04/23/22 CBC w/ Diff 04/23/22 Most recent to oldest [Reference Range]: 1 WBC [4.8-10.8 K/mcL] 9.9 K/mcL (04/23/22 9:31 AM) RBC [4.20-6.10 Million/mcL] 4.02 Million /mcL *LOW* (04/23/22 9:31 AM) Neutro Auto [42.2-75.2 %] 68.7 % (04/23/22 9:31 AM) Lymph Auto [20.5-51.1 %] 21.5 % (04/23/22 9:31 AM) Logan Auto [1.7-9.3 %] 7.5 % (04/23/22 9:31 AM) Basophil Auto [0.0-0.2 %] 0.5 % *HI* (04/23/22 9:31 AM) Baso Absolute [0.0-0.2 K/mcL] 0.0 K/mcL (04/23/22 9:31 AM) MCV [80.0-99.0 fL] 95.0 fL (04/23/22 9:31 AM) MCHC [32.0-36.0 g/dL] 33.8 g/dL (04/23/22 9:31 AM) Lymph Absolute [1.2-3.4 K/mcL] 2.1 K/mcL (04/23/22 9:31 AM) Hct [37.0-52.0 %] 38.2 % (04/23/22 9:31 AM) Logan Absolute [0.1-0.6 K/mcL] 0.7 K/mcL *HI* (04/23/22 9:31 AM) MCH [27.0-31.0 pg] 32.1 pg *HI* (04/23/22:31 AM) Neutro Absolute [1.4-6.5 K/mcL] 6.8 K/mc L *HI* (04/23/22 9:31 AM) Hgb [12.0-18.0 g/dL] 12.9 g/dL (04/23/22 9:31 AM) MPV [7.4-10.4 fL] 8.8 fL (04/23/22 9:31 AM) Platelets [130-400 K/mcL] 372 K/mcL (04/23/22 9:31 AM) Eos Absolute [0.0-0.2 K/mcL] 0.1 K/mcL (04/23/22 9:31 AM) RDW-CV [11.5-14.5 %] 12.6 % (04/23/22 9:31 AM) Imm Gran Absolute 0.04 *NA* (04/23/22 9:31 AM) Imm Gran Auto [0.0-0.5 %] 0.4 % (04/23/22 9:31 AM) Eos, Auto [0.00-3.00 %] 1.40 % (04/23/22 9:31 AM) Social History Social History Type Response Tobacco Never tobacco user T obacco Use:. Sex Patient Care team information Care Team Personnel Name: Yasmine Batista APRN Position: Physician Member Role: Nurse Practitioner Address: Address: [address] [place] [address] Name: Mary Adrian, MD Position: Physician Member Role: Primary Care Physician Address: Address: [address] [place] [address]- Care Team Related Persons Name: MARIANO MORENO
--- OUTSIDE RECORDS SUMMARY | 2023-05-21 15:35 | XMS_ITS | Continuity of Care Document ---
Author Name Unknown Organization [facility] Address [address] [place] [address] Care Team Providers Care Unit Tender Name Role Phone KENN BRENNER Primary Care Physician Encounter [facility] [id number] Date(s): 03/14/23 - 03/14/[address] [address]- [place] Discharge Disposition: Home or Self Care Attending Physician: Liam Noel MD Admitting Physician: Liam Noel MD Referring Physician: Liam Noel MD Allergies, Adverse Reactions, Alerts Substance Reaction Severity Status amoxicillin Unknown Active morphine Unknown Active fenofibrate Unknown Active citalopram Unknown Active penicillins Unknown Active sulfa drugs Unknown Active Augmentin Moderate Active Effexor Unknown Active Bactrim Unknown Active Zocor Unknown Active Voltaren Unknown Active Sulfabenzamide/Sulfacetamide/Sulfathiazole Nausea Moderate Active Lipitor Unknown Active Crestor Unknown Active Bees/Stinging Insects Unknown Active OxyCONTIN Unknown Active Assessment and Plan Future Appointments [...] 11/15/14 Tu rded 1Result Comment: Unit: Unknown 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[employer] 2Result Comment: Unit: Unknown 3Result Comment: Unit: [...] fever, # 80 tab, 1 Refill(s), Pharmacy: [id number] Start Date: 11/02/22 Status: Ordered Nexletol [...] drowsiness., # 60 cap, 1 Refill(s), Pharmacy: [facility] Start Date: 03/14/23 Status: Ordered Singulair 10 mg =, Oral, Daily, 0 Refill(s) Start Date: 10/24/22 Status: Ordered Tirosint 50 mcg (0.05 mg) oral capsule 50 mcg = 1 cap, Oral, Daily, # 90 cap, 0 Refill(s), Pharmacy: [facility] Start Date: 08/23/22 Status: Ordered traZODone [...] fever, # 50 tab, 1 Refill(s), Pharmacy: [facility] Start Date: 11/02/22 Status: Ordered Tylenol Extra Strength 500 mg oral tablet QID, as needed, 0 Refill(s) Start Date: 04/27/22 Status: Ordered Vagifem 10 mcg vaginal tablet 10 mcg = 1 tab, VAG, Mon// at bedtime, # 36 tab, 3 Refill(s), Pharmacy: [id number] Start Date: 01/08/23 Status: Ordered Vagifem 10 mcg vaginal tablet 10 mcg = 1 tab, VAG, Sat/Sat, # 26 tab, 4 Refill(s), [facility] [...] Results Laboratory List Name Date Lipid Panel 03/14/23 Thyroid Stimulating Hormone 03/14/23 Uric Acid 03/14/23 Most recent to oldest [Reference Range]: 1 Cholesterol Total [129-209 mg/dL] 280 mg /dL *HI* (03/14/23 10:05 AM) LDL 186.3 mg/dL 1 *NA* (03/14/23 10:05 AM) HDL [40-80 mg/dL] 74 mg/dL (03/14/23 10:05 AM) Chol/HDL 3.8 2 *NA* (03/14/23 10:05 AM) Triglycerides [10-150 mg/dL] 100 mg/dL (03/14/23 10:05 AM) Uric Acid [2.6-7.2 mg/dL] 6.0 mg/dL (03/14/23 10:05 AM) TSH [0.45-5.33 mcIntlUnit/mL] 1.62 mcInt lUnit/mL (03/14/23 10:05 AM) 1Interpretive Data: Optimal: Less than 100 mg/dL Above Optimal: 100 - 129 mg/dL Borderline High: 130 - 159 mg/dL High: 160 - 189 mg/dL Very High: > or = 190 mg/dL 2Interpretive Data: RISK MALE FEMALE 1/2 average 3.4 3.3 Average 5.0 4.4 2x Average 9.6 7.1 3x Average 23.4 11.0 Social History Social History Type Response Tobacco Never tobacco user T obacco Use:. Sex Female Patient Care team information Care Team Personnel Name: KENN BRENNER Position: No Access Member Role: Primary Care Physician Address: Address: [address] [place] [id number] [place] [address] Name: Yasmine Strickland APRN Position: Physician Member Role: Nurse Practitioner Address: Address: [address] [place] [id number] Care Team Related Persons Name: MARIANO MORENO Name: DESEAN ESPARZA Address: [address] Name: DESEAN ESPARZA Address: [address] [id number] [facility]
--- OUTSIDE RECORDS SUMMARY | 2023-05-21 15:35 | XMS_ITS | Continuity of Care Document ---
Author Name Unknown Organization [facility] Address [address] [place] [address] Care Team Providers Care Pulmonology Technician Name Role Phone KENN BRENNER Primary Care Physician Encounter [facility] NBR [id number] Date(s): 05/15/23 - 05/15/23 [facility] [address] [place] [address]- Encounter Diagnosis Lumbar spondylosis(Discharge Diagnosis) - 05/15/23 Facet arthropathy, lumbar(Discharge Diagnosis) - 05/15/23 Discharge Disposition: Home or Self Care Attending Physician: Nell Daugherty DO Referring Physician: Yasmine Strickland APRN Allergies, Adverse Reactions, Alerts Substance Reaction [...] Assessment and Plan Future Appointments Functional Status 05/15/23 Other exposure to Infectious Disease Non e [...] 11/15/14 Tu rded 1Result Comment: Unit: Unknown 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 TAKE WITH FOOD, 0 Refill(s) Start Date: 05/15/23 Status: Ordered Detrol LA 4 mg oral capsule, extended release 4 mg = 1 cap, Oral, Daily, # 30 cap, 11 Refill(s), Pharmacy: [id number] Start Date: 03/28/23 Status: Ordered doxycycline [...] fever, # 80 tab, 1 Refill(s), Pharmacy: [facility] Start Date: 11/02/22 Status: Ordered lisdexamfetamine 10 mg oral capsule 28 EA, 0 Refill(s), TAKE ONE CAPSULE BY MOUTH EVERY MORNING, 0 Refill(s) Start Date: 05/15/23 Status: Ordered lisdexamfetamine 20 mg oral capsule 28 EA, 0 Refill(s), TAKE ONE CAPSULE BY MOUTH EVERY MORNING, 0 Refill(s) Start Date: 05/15/23 Status: Ordered lurasidone 20 mg oral tablet 30 EA, 0 Refill(s), TAKE ONE TABLET BY MOUTH EVERY EVENING WITH FOOD, 0 Refill(s) Start Date: 05/15/23 Status: Ordered naltrexone 50 mg oral tablet 30 EA, 0 Refill(s), TAKE 1/2 TABLET BY MOUTH FOR 7 DAYS THEN INCREASE TO TAKE ONE TABLET BY MOUTH EVERY DAY, 0 Refill(s) Start Date: 05/15/23 Status: Ordered Nexletol 180 mg oral tablet 180 mg = 1 tab, Oral, every other day, # 45 tab, 0 Refill(s) Start Date: 10/31/22 Stop Date: 01/29/23 Status: Ordered pregabalin 50 mg oral capsule 60 EA, 0 Refill(s), 0 Refill(s) Start Date: 05/15/23 Status: Ordered Singulair 10 mg =, Oral, Daily, 0 Refill(s) Start Date: 10/24/22 Status: Ordered Tirosint 50 mcg (0.05 mg) oral capsule 50 mcg = 1 cap, Oral, Daily, # 90 cap, 0 Refill(s), Pharmacy: [facility] Start Date: 08/23/22 Status: Ordered traZODone 150 mg oral tablet 150 mg = 1 tab, Oral, every day at bedtime, # 30 tab, 0 Refill(s) Start Date: 02/15/23 Status: Ordered triamcinolone 0.025% topical cream 1 karina, Topical, Daily, # 15 g, 0 Refill(s), Pharmacy: [facility] Start Date: 08/07/22 Stop Date: 08/21/22 Status: Ordered Tylenol 8 Hour 650 mg oral tablet, extended release 650 mg = 1 tab, Oral, BID, PRN as needed for fever, # 50 tab, 1 Refill(s), Pharmacy: [facility] Start Date: 11/02/22 Status: Ordered Tylenol Extra Strength 500 mg oral tablet QID, as needed, 0 Refill(s) Start Date: 04/27/22 Status: Ordered Vagifem 10 mcg vaginal tablet 10 mcg = 1 tab, VAG, Mon//Fr at bedtime, # 36 tab, 3 Refill(s), Pharmacy: [facility] Start Date: 01/08/23 Status: Ordered Vagifem 10 mcg vaginal tablet 10 mcg = 1 tab, VAG, Mon/Fri, # 26 tab, 4 Refill(s), Pharmacy: [facility] Start Date: 10/25/22 Stop Date: [...] Completed Surgery 2 06/2020 Completed 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 abscess 3 10/2016 Completed [...] * Event Display: History and Physical Update Discharge summary * Event Display: Discharge Summary Patient Care team information Care Team Personnel Name: KENN BRENNER Position: No Access Member Role: Primary Care Physician Address: Address: [address] [place] [id number]- Name: Yasmine Strickland APRN Position: Physician Member Role: Nurse Practitioner Address: Address: [address] [place] [id number] [place] Care Team Related Persons Name: MARIANO MORENO Name: DESEAN ESPARZA Address: [address] [phone] [facility] Name: DESEAN ESPARZA Address: [address] [phone] Address: [address] [place] [id number]
--- OUTSIDE RECORDS SUMMARY | 2023-05-21 15:35 | XMS_ITS | Continuity of Care Document ---
Author Name Unknown Organization [facility] Ambulatory Clinics Address [address] [place] [address] Care Team Providers Care Prison Guard Name Role Phone Veronica Barrios APRN Primary Care Physician Encounter [facility] NBR [id number] Date(s): 10/25/22 - 10/25/22 [facility] Ambulatory Clinics [address] [place] [address]- [place] Encounter Diagnosis History of total abdominal hysterectomy(Discharge Diagnosis) - 10/25/22 Mixed urinary incontinence(Discharge Diagnosis) - 10/25/22 Discharge Disposition: Home or Self Care Attending Physician: Llye Preston MD Allergies, Adverse Reactions, Alerts Substance Reaction [...] Density DEXA Axial Skeleton 11/28/22 Functional Status 10/25/22 Other exposure to Infectious Disease Non e [...] 11/15/14 Tu rded 1Result Comment: 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[employer] 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 Comment: Unit: Unknown 3Result Comment: [...] drowsiness., # 60 cap, 0 Refill(s), Pharmacy: [id number] Start Date: 08/14/22 Status: Ordered ketotifen 0.025% ophthalmic solution 1 drops, Eye-Both, BID, # 7.5 mL, 0 Refill(s) Start Date: 08/17/22 Status: Ordered meloxicam 7.5 mg oral tablet 7.5 mg = 1 tab, Oral, Daily, # 30 tab, 3 Refill(s), Pharmacy: [facility] Start Date: 04/27/22 Status: Ordered omeprazole 20 mg oral delayed release capsule 20 mg = 1 cap, Oral, Daily, Appointment 10/29/22 , # 90 cap, 3 Refill(s), Pharmacy: [id number] Start Date: 10/16/22 Stop Date: 10/11/23 Status: Ordered Proventil HFA 90 mcg/inh inhalation aerosol QID, 2 puffs as needed, 0 Refill(s) Start Date: 04/27/22 Status: Ordered Singulair 10 mg =, Oral, Daily, 0 Refill(s) Start Date: 10/24/22 Status: Ordered Tirosint 50 mcg (0.05 mg) oral capsule 50 mcg = 1 cap, Oral, Daily, # 90 cap, 0 Refill(s), Pharmacy: [id number] Start Date: 08/23/22 Status: Ordered traZODone 150 mg oral tablet 90 EA, TAKE 1 TABLET BY MOUTH EVERY DAY AT BEDTIME, 0 Refill(s) Start Date: 04/09/22 Status: Ordered traZODone 50 mg oral tablet 50 mg = 1 tab, Oral, every night at bedtime, as needed for insomnia. In addition to 150mg., # 30 tab, 3 Refill(s), Pharmacy: [facility] Start Date: 05/16/22 Status: Ordered triamcinolone 0.025% topical cream 1 karina, Topical, Daily, # 15 g, 0 Refill(s), Pharmacy: [facility] Start Date: 08/07/22 Stop Date: 08/21/22 Status: Ordered Tylenol Extra Strength 500 mg oral tablet QID, as needed, 0 Refill(s) Start Date: 04/27/22 Status: Ordered Vagifem 10 mcg vaginal tablet 10 mcg = 1 tab, VAG, Mon/Fri, # 26 tab, 4 Refill(s), Pharmacy: [facility] Start Date: 10/25/22 Stop [...] Completed Surgery 2 06/2020 Completed 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 Sex Physician Outpatient Note * Lyle Preston MD: PERFORM Event Display: Office Clinic Note Physician Authored Date: [id number] SUNNY ESPARZA :1950 Age:72 years Sex:Female Visit Date:10/25/2022 Primary Care Physician: Veronica Barrios APRN Chief Complaint NUTRITION INTERN consult from Brittani Smith APRN for urinary incontinence and a cystocele History of Present Illness The patient presents in consultation with struggles surrounding urinary incontinence and a cystocele on exam.?? She saw Brittani Smith August 15 and at that time had major complaints surrounding urinary incontinence.?? The issue has been ongoing for years.?? It was steadily progressing in terms of symptomatology.?? She voids frequently during the day.?? She has no need to get up to go to the bathroom at night and has no leaking during the evening.?? They documented a postvoid residual of 39 mL.?? She has done pelvic floor physical therapy, estrogen therapy, and??anticholinergic??therapy??with a different gynecologic practice in the past with no significant improvement.?? She has not been struggling with recurring urinary infections.?? She can get to the bathroom if her bladder does not get toofull but can occasionally dribble if she waits too long.?? She will rarely??leak with a cough or sneeze.?? She wears a pad on a daily basis and is mainly concerned??that she would leak??if she cannotget to the bathroom in time.?? She has had 2 deliveries and had a hysterectomy at the age of 39 with removal of her fallopian tubes.?? She was started on Vagifem in August and wants to take it regularly until her follow-up with me.?? She does have a sexual partner. ??They??have sex only rarely. ??She does have some discomfort??with intercourse.?? She has vaginal dryness. ??They use of lubr icant. Review of Systems Constitutional:?No??fevers,?No??chills,?No??sweats Eye:?No??recent visual problems ENT:?No??ear pain,?No??nasal congestion,?No??sore throat Respiratory:?No??shortness of breath,?No??cough Cardiovascular:?No??Chest pain,?No??palpitations,?No??syncope Gastrointestinal:?Nonausea,?No??vomiting,?No??diarrhea Genitourinary:?No??hematuria Ba/Lymph:?No??bruising tendency,?No??swollen lymph glands Endocrine:?No??excessive thirst,??No??excessive hunger Musculoskeletal:??No??back pain,??No??neck pain,??No??joint pain,??No??muscle pain,??No??decreased range of motion Integumentary:?No??rash,?No??pruritus,?No??abrasions Neurologic: Alert & oriented X 4 Psychiatric:?No??anxiety,?No??depression Physical Exam Vitals & Measurements BP:??152/84?? HT:??158??cm?? WT:??76.5??kg?? BMI:??30.64?? BSA:??1.83?? General: Alert and oriented, well nourished,?No acute distress Eye: PERRL, EOMI,??Normal conjunctiva HENT: Normocephalic,??Normal hearing, moist oral mucosa,?No scleral icterus Neck: Supple, non-tender, no??thyroid irregularities or thyromegaly Lungs: Clear to auscultation and percussion,?Non-labored respiration Heart:?Normal rate,?Regular rhythm,?No murmur,?No gallop Abdomen: Soft, non-tender, non-distended,?Normal bowel sounds,?No??masses, Pfannenstiel incision scar- well-healed Musculoskeletal:?Normal range of motion and strength,?No tenderness,?No swelling Skin: Skin is warm, dry and pink,?No??rashes,?No lesions Neurologic: Awake, alert and oriented X4, CN II-XII intact Psychiatric: Cooperative, appropriate mood and affect ?? Pelvic:??The external genitalia is atrophic ventricular menopause.?? The genital hiatus is well-maintained.?? With cough or strain there is minimal rotational component??c/w a cystourethrocele or distal??rectocele.?? With a Alexander speculum placed in the anterior compartment, apex, and posterior compartments were evaluated.?? She has??slight relaxation of the anterior compartment in the proximal third of the??vagina.?? Minimal overall??descent toward the introitus when she coughs or strains.?? Grade 1 cystocele. ??The apex is well supported??and the tissues appear healthy.?? The posteriorcompartment is globally relaxed. ??Minimal rotational component with cough or strain. Clinic Assessment/Plan 1.??Mixed urinary incontinence??N39.46 After gathering her history??and doing her exam I reviewed??my thoughts with the patient.?? She hassignificant??urinary incontinence that??is intrusive??on a daily basis in her life.?? Her symptoms??for the most part??stem from overactive bladder related??issues.?? I reviewed the difference between stress urinary??and detrusor instability related incontinence.?? She has a minimal stress??incontin ence??and??I explained that she would see some improvement with more exercise??and getting back to doing her??Kegel exercises as well.?? For the most part however??her??incontinence issues are comingfrom overactive bladder related leaking.?? Physical therapy can be helpful for this but I think most of her issues??stem??from her dietary choices. ??Interestingly, she can go through the night??mostnights without having to get up to go to the bathroom.?? Patients with this type of history??shouldbe able to hold more urine during the daytime??as well.?? I think her coffee usage, alcohol, and other bladder irritants are leading to many of her??issues surrounding incontinence.?? I explained that some of the choices she is making??are contributing??to her incontinence.?? These??elective??choices??do not need to be cut out of her daily routine but??more so I think it is important to give some consideration??regarding her??situation??and the choices she makes with her??diet. ??If she plans on traveling or going??shopping??it may be best to??avoid some of the caffeine??prior.?? Drinking 3 cups of strong coffee and then going to the grocery store??will leave her??in the bathroom frequently during that??shopping outing.?? If she is careful and only drinks decaf??she may note a marked improvement.?? Based upon her description, wine causes similar issues. ??Again I did not tell her her not to drink wine but I instead??recommended she be conscientious about her choices. ??If she knows a g lass of wine is going to cause problems she has to decide whether she wants to drink wine??at a social outing or not. ??Or give some thought to having another glass.?? Doing so will leave her??using the bathroom frequently. ??It is not related to??an anatomic issue. ??It is not something we can fixwith surgery.?? Medication strategies can be helpful and I sent her home with a??supply of Myrbetriq.?? I gave her 25 mg tablets. ??She can start them daily and see how things go. ??She can also??double the dose to see if it becomes more efficacious.?? She can try them in the morning for a while and then switch to using them at night if she feels it may be more helpful.?? I will see her back in afew weeks to see if this has??led to any significant improvement.?? She does not have any evidence of a significant cystocele.?I did review that fixing the small??cystocele or placing a sling??mayseem like a great idea but both will leave her with more detrusor instability.?? A trial with a pessary may prove helpful to see if surgery would lead to any improvement.? She is menopausal and her tissues are atrophic.?? Menopausal??estrogen levels??can contribute to overactive bladder symptoms. ??For this reason I recommended she continue the Vagifem at least 2 nights per week.?? I sent through a prescription to renew this??medication. ?? Thank you very much for the referral of this pleasant patient. 2.??History of total abdominal hysterectomy??Z90.710 Additional Actions: DISCONTINUED - estradiol topical, 10 mcg = 1 tab, VAG, Sat////, # 65 tab, 4 Refill(s), Pharmacy: [id number] ORDERED - estradiol topical, 10 mcg = 1 tab, VAG, Sat/Sat, # 26 tab, 4 Refill(s), Pharmacy: [facility] Problem List/Past Medical History Ongoing Allergic rhinitis [...] (03/04/2012)???Hysterectomy (1991)???Appendectomy (1961)???Tonsillectomy (1961)???Birthof child??? section Medications What How Much When Instructions Changed estradiol topical (Vagifem 10 mcg vaginal tablet) 1 tab Vaginal (in the vagina) Mon/Fri Duration: 90 Days Pickup at [facility] Unchanged acetaminophen (Tylenol Extra Strength 500 mg oral tablet) 4 times a day as needed ?? Unchanged albuterol (Proventil HFA 90 mcg/ inh inhalation aerosol) 4 times a day 2 puffs as needed ?? Unchanged cariprazine (Vraylar 1.5 mg oral capsule) 1 Capsules Oral (given by mouth) Every day Unchanged desloratadine (Clarinex 5 mg oral tablet) 1 tab Oral (given by mouth) Every day Unchanged EPINEPHrine (EpiPen 2-Melchor 0.3 mg injectable kit) 0.3 Milligrams As Directed as needed for as needed for allergic reaction as directed Injection PRN Allergic Reaction ?? Unchanged fluticasone nasal (Flonase) Nasal (into the nose) As needed for as needed Unchanged gabapentin (gabapentin 100 mg oral capsule) 2 Capsules Oral (given by mouth) Every evening Start with 1 capsule at bedtime. If tolerating for 2 nights, can increase to 2 capsules at bedtime.Monitor for drowsiness. ?? Unchanged ketotifen ophthalmic (ketotifen 0.025% ophthalmic solution) 1 Drops Both eyes 2 times a day Unchanged levothyroxine (Tirosint 50 mcg (0.05 mg) oral capsule) 1 Capsules Oral (given by mouth) Every day Unchanged meloxicam (meloxicam 7.5 mg oral tablet) 1 tab Oral (given by mouth) Every day Unchanged montelukast (Singulair) 10 Milligrams Oral (given by mouth) Every day Unchanged omeprazole (omeprazole 20 mg oral delayed release capsule) 1 Capsules Oral (given by mouth) Every day Duration: 90 Days Appointment ?? Unchanged traZODone (traZODone 150 mg oral tablet) 90 EA, TAKE 1 TABLET BY MOUTH EVERY DAY AT BEDTIME ?? Unchanged traZODone (traZODone 50 mg oral tablet) 1 tab Oral (given by mouth) Every night at bedtime as needed for insomnia. In addition to 150mg. ?? Unchanged triamcinolone topical (triamcinolone 0.025% topical cream) 1 Application Topical (on the skin) Every day Duration: 14 Days Pharmacy Information [facility]: [address] [place] [address] [phone] ?? 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[employer] SARS-CoV-2 (COVID-19) mRNA-1273 vaccine 09/20/2021 Recorded [...] adult vaccine 11/15/2014 Recorded Electronically Signed on 10/25/22 02:16 PM Lyle Preston MD Patient Care team information Care Team Personnel Name: Yasmine Strickland APRN Position: Physician Member Role: Nurse Practitioner Address: Address: [address] [place] [address] Name: Veronica Brarios APRN Position: Physician Member Role: Primary Care Physician Address: Address: [address] [place] [id number] [place] Care Team Related Persons Name: MARIANO MORENO Address: Home Name: ISAIAS DESEAN [place] Address: [address] [address] [facility] Name: DESEAN ESPARZA Address: [address] [phone] [facility]
--- OUTSIDE RECORDS SUMMARY | 2023-05-21 15:35 | XMS_ITS | Continuity of Care Document ---
Author Name Unknown Organization [facility] Ambulatory Clinics Address [address] [place] [address] Care Team Providers Care Railroad Supervisor Of Engines Name Role Phone Veronica Barrios APRN Primary Care Physician Encounter [facility] NBR [id number] Date(s): 08/27/22 - 08/27/22 [facility] Ambulatory Clinics [address], [place] 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) - 08/27/22 Hypothyroidism(Discharge Diagnosis) - 08/27/22 Mixed anxiety and depressive disorder(Discharge Diagnosis) - 08/27/22 Vitamin D deficiency(Discharge Diagnosis) - 08/27/22 GERD (gastroesophageal reflux disease)(Discharge Diagnosis) - 08/27/22 Familial hypercholesterolemia(Discharge Diagnosis) - 08/27/22 Discharge Disposition: Home or Self Care Attending Physician: Veronica Barrios APRN Allergies, Adverse Reactions, Alerts Substance Reaction [...] Density DEXA Axial Skeleton 11/28/22 Functional Status 08/27/22 Other exposure to Infectious Disease Non e Immunizations Given and Recorded Vaccine Date Status Refusal Reason SARS-CoV-2 mRNA-1273 bivalent booster 04/04/22 Giv en tetanus/diphth/pertuss (Tdap) adult/adol 1 11/27/21 Recorded tetanus/diphth/pertuss [...] 11/15/14 Tu rded 1Result Comment: Unit: Unknown Asset Protection Officer: [employer] 2Result Comment: Unit: Unknown 3Result Comment: Unit: Unknown 4Result Comment: Unit: Unknown 5Result Comment: Unit: Unknown 6Result Comment: Unit: Unknown 7Result Comment: Unit: Unknown 8Result Comment: Unit: Unknown 9Result Comment: Unit: Unknown Medications Glory Allergy 60 mg oral tablet 60 mg = 1 tab, Oral, Daily, 0 Refill(s) Start Date: 08/07/22 Status: Ordered Glory-D 24 Hour Allergy & Congestion 180 mg-240 mg oral tablet, extended release 1 tab, Oral, Daily, 0 Refill(s) Start Date: 05/16/22 Status: Ordered EpiPen 2-Melchor 0.3 mg injectable [...] drowsiness., # 60 cap, 0 Refill(s), Pharmacy: [id number] Start Date: 08/14/22 Status: Ordered ketotifen [...] Daily, # 30 cap, 0 Refill(s), Pharmacy: [facility] Start Date: 08/07/22 Status: Ordered Proventil HFA 90 mcg/inh inhalation aerosol QID, 2 puffs as needed, 0 Refill(s) Start Date: 04/27/22 Status: Ordered Repatha Prefilled Syringe 140 mg/mL subcutaneous solution 0 Refill(s) Start Date: 08/27/22 Status: Ordered Tirosint 50 mcg (0.05 mg) oral capsule 50 mcg = 1 cap, Oral, Daily, # 90 cap, 0 Refill(s), Pharmacy: [id number] Start Date: 08/23/22 Status: Ordered traZODone [...] tablet 10 mcg = 1 tab, VAG, Sat////Sa, # 65 tab, 4 Refill(s), Pharmacy: [id number] Start Date: 08/17/22 Stop Date: 11/10/23 Status: Ordered Problem List Condition Confirmation Course [...] Completed Surgery 2 06/2020 Completed 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 cotton picker 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 y canal abscess 3 10/2016 Completed Procedure [...] 1 Temperature Tympanic [36.6-37.9 Deg C] 3 5.1 Deg C *LOW* (08/27/22 9:53 AM) Apical Heart Rate [60-100 bpm] 90 bpm (08/27/22 9:53 AM) Peripheral Pulse Rate [60-100 bpm] 70 bp m (08/27/22 9:53 AM) Blood Pressure [90-140/60-90 mmHg] 113/8 0mmHg (08/27/22 9:53 AM) Weight 77.3 kg (08/27/22 9:53 AM) Weight Measured (lbs) 170.417 lb (08/27/22 9:53 AM) Height 160.02 cm (08/27/22 9:53 AM) Height/Length Measured (inches) 63 inch (08/27/22 9:53 AM) BSA Measured 1.85 m2 (08/27/22 9:53 AM) Body Mass Index 30.19 kg/m2 (08/27/22 9:53 AM) Social History Social History Type Response Tobacco Never tobacco user T obacco Use:. Sex Hospital Discharge Instructions Follow Up Care 08/08/2022 12:23:53 With:Veronica Barrios APRN Address: [address] [place] [phone] When:2 Months Comments:Follow-up sooner if needed.?? Call the office with any questions or concerns. Physician Outpatient Note * Veronica Barrios APRN: PERFORM Event Display: Office Clinic Note Physician Authored Date: [id number] SUNNY ESPARZA :1950 Age:72 years Sex:Female Visit Date:08/27/2022 Primary Care Physician: Veronica Barrios APRN Chief Complaint 3mth f/u History of Present Illness SUNNY ESPARZA??is a??72 years??year old??Female??who??presents to the office today with a history of lyme disease in 2020. ??She is a new patient to me.?She has concerns today about??her Lyme disease and??depression. Not feeling good ?? She was positive for Lyme disease in January 2021 and was treated with a long course of doxycycline. ??She has continued to have joint pain??states she has been??seeing a buffing and sueding machine operator because her friend saw the same??one and helped??with her??symptoms post Lyme disease.?She states according to the buffing and sueding machine operator, who did exotic tests, she still has Lyme disease and her vitamin D and vitamin B are low. ??She continues to have joint pain, reports her hands??and thumbs bilaterally??and an overalljoint achiness??in many of her joints.?She denies any fevers, swelling in joints, redness in joints, warmth in joints.??She states that she has not heard from [facility]??rheumatology??for previous referral. ??We reviewed her medications as she states she had??stopped taking some??and was not sure whatcarlos eduardo should be taking.? She continues to have depression and??is seeing a counselor every other week.?? She states sinceshe developed Lyme disease, she does not feel like herself. ??She has low mood,??low energy. ??However she is??able to push through??and function in her day-to-day life.?? She states she has taken??many medications??for depression??and although it??they work, they make her feel sick. ??She has taken Celexa, Lexapro,??Wellbutrin. ??She has taken Abilify and Zyprexa??which did work but??she gained a lot of weight and did not want to continue. ??She has tried multiple medications in different classes and states they always make her feel sick,??like there is poison in??my??body. Denies??SI or HI. ?? She really saw urology??for issues with incontinence. ??She??will be seeing [facility]STER??to discuss??possible surgery??in 6 weeks.?? Has since started on??estradiol cream. ?? Review of Systems Constitutional:??No fevers, chills, sweats Respiratory:??No shortness of breath, no cough Cardiovascular:??No Chest pain, palpitations, syncope, Gastrointestinal:??No nausea, vomiting, diarrhea, or bloody stools.?Was started on omeprazole for GERD. ??States she only took it for 2 days. Genitourinary:??No hematuria Ba/Lymph:??Negative for bruising tendency, swollen lymph glands Endocrine:??Negative for excessive thirst, excessive hunger Musculoskeletal:??Able to move all joints and ambulate??without difficulty. ??Does state multiple joints are achy.?? Worst joints are her??thumbs bilateral. Integumentary:??No rash, pruritus, abrasions Neurologic:??Alert & oriented X 4, no headaches Psychiatric:??She is experienced depression. Physical Exam Vitals & Measurements T:??35.1?C ??(Tympanic)?? HR:??70??(Peripheral)?? HR:??90??(Apical)?? BP:??113/80?? HT:??160.02??cm?? WT:??77.3??kg?? BMI:??30.19?? BSA:??1.85?? General:??Alert and oriented, well nourished, no acute distress.?? Neck:??Supple, non-tender, no mass, thyroid symmetric, no lymphadenopathy.?? Lungs:??Clear to auscultation, non-labored respiration.?? Heart:??Normal rate, regular rhythm, no murmur, gallop or edema. Musculoskeletal:??Normal range of motion and strength, no??joint redness,??no swelling,??no warmth,no crepitus. Skin:??Skin is warm, dry and pink, no rashes or lesions. Neurologic:??Awake, alert and oriented X4 Psychiatric:??Cooperative, appropriate mood and affect. Depression Screen?? PHQ 2?? PHQ 9?? Feeling Down, Depressed, Hopeless: Several days Detailed Depression Screen Score: 7 Initial Depression Screen Score: 1 Score Feeling Bad About Yourself: Several days Little Interest - Pleasure in Activities: Not at all Feeling Tired or Little Energy: Nearly every day ?? Moving or Speaking Slowly: Not at all ?? Poor Appetite or Overeating: More than half the days ?? Thoughts Better Off or Hurting Self: Not at all ?? Total Depression Screen Score: 8 ?? Trouble Concentrating: Several days ?? 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 ??She has had no fevers, no redness, swelling, warmth??in joints.??Reviewed with patient that??labs may still show??positive immunoglobulin??IgM, IgG??even after the??infection has been treated. ??This could??be present for months or longer.?Discussed with patient that I am not familiar with the test??that was ordered??to evaluate??Lyme disease??from buffing and sueding machine operator. 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 We discussed??continuing??meloxicam. ??She did not want to restart all of her medications at the same time.?? She will be on meloxicam for??a week or so and then restart her gabapentin 100 mg in the evening??and can increase to 200mg??if tolerating fine. ??We did??discuss side effect of medication.??She would like a ??Referral for [facility]??rheumatology. 2.??Hypothyroidism??E03.9 Previous labs were checked by??buffing and sueding machine operator TSH was??within normal limits.?? Continues on??Tirosint 50mcg orally daily. ??Takes as prescribed. 3.??Mixed anxiety and depressive disorder??F41.8 To have depression, low mood,??low energy.?? She is able to function in her daily life.?? She is willing to take medications but they always seem to make her feel sick. ??She would like to see psychiatry??for further recommendations for treatment.?She denies any SI or HI.?? She will continue to see her therapist??every other week.?? Counseled patient that??for any suicidal ideation or feelingsof self-harm to seek care in the emergency department. 4.??Vitamin D deficiency??E55.9 Vitamin D level??was low 28, discussed taking vitamin D at 1000 IUs PO daily.??She had discussed this with her buffing and sueding machine operator as well.?? We discussed having 1 provider managing care as??it could be gone unsafe??with??duplicate??or repeated??ordering??of labs and test, prescribing and treating. ??She verbalized understanding. 5.??GERD (gastroesophageal reflux disease)??K21.9 Had stopped taking omeprazole, had only taken for a few days. ??She was not sure if it was working.?? Discussed with patient that she should take??4 months to see if she notices a difference of symptoms. 6.??Familial hypercholesterolemia??E78.01 She had been seeing cardiology??at [facility]??and that provider retired. ??She will now be seeing Dr. Noel. ??She is statin intolerant and currently taking??Repatha. Please follow-up if symptoms increase or worsen. Future Orders BD Bone Density DEXA Axial Skeleton, 11/28/22, Routine, Reason: osteopenia monitoring, Transport Mode: Ambulatory, Osteopenia, ABN Status: Not Required Referral Orders Referral Management, Medical Service: Rheumatology, Reason: Lyme positive in 2020 and treated with 6 weeks of doxycycline. She continues to have pain in multiple joints. ERIKA, RF negative, Start: 08/27/22, Instructions: [facility] rheumatology Referral Management, Medical Service: Psychiatry, Reason: 72-year-old female with history of anxiety and depression. Patient with multiple medications, SSRIs, atypical agents and they make her feel sick and unable to stay on them. She is requesting to see psychiatry.... Follow Up Instructions With When Contact Information Veronica Barrios APRN Within 2 Months [address] [place] [address] [phone] Additional Instructions: Follow-up sooner if needed.?? Call the office with any questions or concerns. Problem List/Past Medical History Ongoing Allergic rhinitis [...] (03/04/2012)???Hysterectomy (1991)???Appendectomy (1961)???Tonsillectomy (1961)???Birthof child??? section Medications Glory Allergy 60 mg oral tablet, 60 mg= 1 tab, Oral, Daily Glory-D 24 Hour Allergy & Congestion 180 mg-240 mg oral tablet, extended release, 1 tab, Oral, Daily EpiPen 2-Melchor 0.3 mg injectable kit, 0.3 mg, As Directed, PRN Flonase, Nasal, PRN gabapentin 100 mg oral capsule, 200 mg= 2 cap, Oral, every evening Kenalog-40, 40 mg, Intra-articular, Once ketotifen 0.025% ophthalmic solution, 1 drops, Eye-Both, BID meloxicam 7.5 mg oral tablet, 7.5 mg= 1 tab, Oral, Daily, 3 refills omeprazole 20 mg oral delayed release capsule, 20 mg= 1 cap, Oral, Daily Proventil HFA 90 mcg/inh inhalation aerosol, QID Repatha Prefilled Syringe 140 mg/mL subcutaneous solution Tirosint 50 mcg (0.05 mg) oral capsule, 50 mcg= 1 cap, Oral, Daily traZODone 150 mg oral tablet traZODone 50 mg oral tablet, 50 mg= 1 tab, Oral, every night at bedtime, 3 refills triamcinolone 0.025% topical cream, 1 karina, Topical, Daily Tylenol Extra Strength 500 mg oral tablet, QID Vagifem 10 mcg vaginal tablet, 10 mcg= 1 tab, VAG, Sat///Fr/Sa, 4 refills Allergies Augmentin Sulfabenzamide/Sulfacetamide/Sulfathiazole??(Nausea) Bactrim Bees/Stinging Insects Crestor [...] of : Immunizations Vaccine Date Status SARS-CoV-2 mRNA-1273 bivalent booster 04/04/2022 Given tetanus/diphth/pertuss (Tdap) adult/adol 11/27/2021 Recorded Comments : Unit: Unknown Asset Protection Officer: [employer] SARS-CoV-2 (COVID-19) mRNA-1273 vaccine 09/20/2021 [...] adult vaccine 11/15/2014 Recorded Electronically Signed on 08/27/22 02:09 PM Veronica Barrios APRN Patient Care team information Care Team Personnel Name: Yasmine Batista APRN Position: Physician Member Role: Nurse Practitioner Address: Address: [address] [place] [address] Name: Veronica Barrios APRN Position: Physician Member Role: Primary Care Physician Address: Address: [address] [place] [address] Care Team Related Persons Name: MARIANO MORENO Address: Home Name: DESEAN ESPARZA Address: Home [address] [place] [address] Name: DESEAN ESPARZA Address: [address] [id number] [facility]
--- OUTSIDE RECORDS SUMMARY | 2023-05-21 15:35 | XMS_ITS | Continuity of Care Document ---
Author Name Unknown Organization [facility] Ambulatory Clinics Address [address] [place] [address] Care Team Providers Care Surveyor Geophysical Prospecting Name Role Phone Paul Barrios APRNah Liyah Primary Care Physician Encounter [facility] NBR [id number] Date(s): 08/15/22 - 08/15/22 [facility] Ambulatory Clinics [address] [place] [address]- [place] Encounter Diagnosis Incomplete bladder emptying(Discharge Diagnosis) - 08/15/22 Discharge Disposition: Home or Self Care Attending Physician: Brittani Smith APRN Allergies, Adverse Reactions, Alerts Substance Reaction [...] Spine Lumbar w/o Contrast 08/14/22 Functional Status 08/15/22 Living Environment Home Environment No qualifying data available Other exposure to Infectious Disease Non e [...] # 60 cap, 0 Refill(s), Pharmacy: [facility] Start Date: 08/14/22 Status: Ordered meloxicam 7.5 mg oral tablet 7.5 mg = 1 tab, Oral, Daily, # 30 tab, 3 Refill(s), Pharmacy: [facility] Start Date: 04/27/22 Status: Ordered naproxen 500 mg oral delayed release tablet BID, as needed, 0 Refill(s) Start Date: 04/27/22 Status: Ordered OLANZapine 2.5 mg oral tablet 0.5 - 1 tab, Oral, Daily, # 90 tab, 0 Refill(s), Pharmacy: [facility] Start Date: 08/07/22 Status: Ordered omeprazole 20 mg oral delayed release capsule 20 mg = 1 cap, Oral, Daily, # 30 cap, 0 Refill(s), Pharmacy: [facility] Start Date: 08/07/22 Status: Ordered Proventil HFA 90 mcg/inh inhalation aerosol QID, 2 puffs as needed, 0 Refill(s) Start Date: 04/27/22 Status: Ordered Sudafed 30 mg oral tablet QID, as needed, 0 Refill(s) Start Date: 04/27/22 Status: Ordered Tirosint 50 mcg (0.05 mg) oral capsule 50 mcg = 1 cap, Oral, Daily, # 90 cap, 0 Refill(s), Pharmacy: [facility] Start Date: 08/07/22 Status: Ordered traZODone 150 mg oral tablet 90 EA, TAKE 1 TABLET BY MOUTH EVERY DAY AT BEDTIME, 0 Refill(s) Start Date: 04/09/22 Status: Ordered traZODone 50 mg oral tablet 50 mg = 1 tab, Oral, every night at bedtime, as needed for insomnia. In addition to 150mg., # 30 tab, 3 Refill(s), Pharmacy: [facility] Start Date: 05/16/22 Status: [...] Unknown, # 360 cap, 0 Refill(s), Pharmacy: [facility] Start Date: 08/07/22 Status: Ordered [...] tenodesis, decompression Results Laboratory List Name Date .Urinalysis POCT 08/15/22 Most recent to oldest [Reference Range]: 1 Protein Urine Dipstick POC Negative (08/15/22 11:55 AM) Ketones Urine Dipstick POC Negative (08/15/22 11:55 AM) Method of Collect POC Clean Catch *NA* (08/15/22 11:26 AM) Specific [place], Ur POC 1.025 *NA* (08/15/22 11:26 AM) Specimen Color POC [Yellow] Yellow (08/15/22 11:26 AM) Glucose, Urine POC Negative mg/dL *NA* (08/15/22 11:26 AM) Bilirubin, Urine POC [Negative] Negative (08/15/22 11:26 AM) Ketones, Urine POC [Negative mg/dL] Nega tive mg/dL (08/15/22 11:26 AM) Blood, Urine POC [Negative] Negative (08/15/22 11:26 AM) pH, Urine POC 7.5 *NA* (08/15/22 11:26 AM) Protein, Urine POC [Negative mg/dL] Nega tive mg/dL (08/15/22 11:26 AM) Urobilinogen, Urine POC [0.2] 0.2 (08/15/22 11:26 AM) Nitrite, Urine POC [Negative] Negative (08/15/22 11:26 AM) Leuk Esterase, Urine POC [Negative] Nega tive (08/15/22 11:26 AM) Clarity, Urine POC [Clear] Clear (08/15/22 11:26 AM) Urobilinogen Urine Dipstick 0.2 mg/dl (08/15/22 11:55 AM) pH Urine Dipstick 7.5 (08/15/22 11:55 AM) Blood Urine Dipstick Negative (08/15/22 11:55 AM) Specific [place] Urine Dipstick 1.020 (08/15/22 11:55 AM) Bilirubin Urine Dipstick Negative (08/15/22 11:55 AM) Glucose Urine Dipstick Negative (08/15/22 11:55 AM) Urine Color Urine Dipstick Yellow (08/15/22 11:55 AM) Urine Appearance Urine Dipstick Clear (08/15/22 11:55 AM) Vital Signs Most recent to oldest [Reference Range]: 1 Temperature Temporal Artery [36-38 Deg C ] 36.0 Deg C (08/15/22 11:20 AM) Apical Heart Rate [60-100 bpm] 78 bpm (08/15/22 11:20 AM) Respiratory Rate [12-24 br/min] 12 br/mi n (08/15/22 11:20 AM) Blood Pressure [90-140/60-90 mmHg] 152/7 8mmHg *HI* (08/15/22 11:20 AM) Weight 75.57 kg (08/15/22 11:20 AM) Weight Measured (lbs) 166.603 lb (08/15/22 11:20 AM) [facility] Body Weight Calculated 53.55 kg (08/15/22 11:20 AM) Height 161.29 cm (08/15/22 11:20 AM) Height/Length Measured (inches) 63.5 inc h (08/15/22 11:20 AM) BSA Measured 1.84 m2 (08/15/22 11:20 AM) Body Mass Index 29.05 kg/m2 (08/15/22 11:20 AM) Social History Social History Type Response Tobacco Never tobacco user T obacco Use:. Sex Patient Care team information Care Team Personnel Name: Yasmine Batista APRN Position: Physician Member Role: Nurse Practitioner Address: Address: [address] [place] [address] Name: Veronica Barrios APRN Position: Physician Member Role: Primary Care Physician Address: Address: [address] [place] [phone] Care Team Related Persons Name: MARIANO MORENO Address: Home Name: DESEAN ESPARZA Address: Home [address] [place] [address]
--- OUTSIDE RECORDS SUMMARY | 2023-05-21 15:35 | XMS_ITS | Continuity of Care Document ---
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 Name Role Phone KENN BRENNER Rodolfo Primary Care Physician Encounter [facility] NBR [id number] Date(s): 12/27/22 - 12/27/22 [facility] [address] [place], [place] [address] Encounter Diagnosis History of total abdominal hysterectomy(Discharge Diagnosis) - 12/27/22 Mixed urinary incontinence(Discharge Diagnosis) - 12/27/22 Discharge Disposition: Home or Self Care Attending Physician: Lyle Preston MD Allergies, Adverse Reactions, Alerts Substance [...] 11/15/14 Tu rded 1Result Comment: Unit: Unknown 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 If tolerating for 2 nights, can increase to 2 capsules at bedtime. Monitor for drowsiness., # 60 cap, 0 Refill(s), Pharmacy: [facility] Start Date: 08/14/22 Status: Ordered ibuprofen 100 mg oral tablet 200 mg = 2 tab, Oral, every 6 hr, PRN as needed for fever, # 80 tab, 1 Refill(s), Pharmacy: [facility] Start Date: 11/02/22 Status: Ordered ketotifen [...] , # 90 cap, 3 Refill(s), Pharmacy: [facility] Start Date: 10/16/22 Stop Date: 10/11/23 Status: Ordered Proventil HFA 90 mcg/inh inhalation aerosol QID, 2 puffs as needed, 0 Refill(s) Start Date: 04/27/22 Status: Ordered Singulair 10 mg =, Oral, Daily, 0 Refill(s) Start Date: 10/24/22 Status: Ordered Tirosint 50 mcg (0.05 mg) oral capsule 50 mcg = 1 cap, Oral, Daily, # 90 cap, 0 Refill(s), Pharmacy: [facility] Start Date: 08/23/22 Status: Ordered traZODone [...] fever, # 50 tab, 1 Refill(s), Pharmacy: [facility] Start Date: 11/02/22 Status: Ordered Tylenol [...] Range]: 1 Blood Pressure [90-140/60-90 mmHg] 152/8 8mmHg *HI* (12/27/22 1:52 PM) Weight 77.5 kg (12/27/22 1:52 PM) Weight Measured (lbs) 170.858 lb (12/27/22 1:52 PM) [place] Body Weight Calculated 51.25 kg (12/27/22 1:52 PM) Height 158.75 cm (12/27/22 1:52 PM) Height/Length Measured (inches) 62.5 inc h (12/27/22 1:52 PM) BSA Measured 1.85 m2 (12/27/22 1:52 PM) Body Mass Index 30.75 kg/m2 (12/27/22 1:52 PM) Social History Social History Type Response Tobacco Never tobacco user T obacco Use:. 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 Wants to follow up from her appt with you on 10/25. ??Wants more information on a pessary History of Present Illness The patient presents in followup??with struggles surrounding urinary incontinence.?? She is 72 and has had 2 children by delivery.?? She underwent hysterectomy with removal of the fallopian tubes and ovaries at the age of 39.?? The issue has been present for years but seems to be getting worse over the past 5 to 6 years.?? She voids frequently during the day she often notes leaking if she waits too long to go to the bathroom.?? She will start dribbling as she is starting to get undressed.?? When she is out she wears a liner to help with this issue but at home does not.?? She drinks 2to 3 cups of coffee daily and alcohol 4 times per week.?? She has a history of vaginal prolapse andhas done pelvic floor rehabilitation.?? She has never tried a pessary.?? A postvoid residual was evaluated at the time of her??last visit and was 39 mL.?? On August 19 Brittani recommended the patient start a course of Vagifem and then, if she needs it, to trial Gemtesa or Myrbetriq to help settle her b ladder. ?? The patient has been??using her??Vagifem??regularly since seeing Brittani and has not had any??improvement.?? She admits that she has not been good about using the medication regularly. ??She continues to have leaking of urine??whenever she has to travel??away from the bathroom.?? Most of her sympto ms continue to be overactive bladder related. Physical Exam Vitals & Measurements BP:??152/88?? HT:??158.75??cm?? WT:??77.5??kg?? BMI:??30.75?? BSA:??1.85?? Clinic Assessment/Plan 1.??Mixed urinary incontinence??N39.46 I spent some time reviewing??different types of incontinence??again with the patient. ??With this Ireviewed??the pertinent??aspect of her incontinence??surrounding??the overactive bladder component.?? She has not seen any improvement with Myrbetriq. ??Thus far??the Vagifem does not seem to be causing much of an impact.?? I did review??that??typically??we try to exhaust??physical therapy and medication based strategies. ??From there??patients could consider Botox therapy. ??She is a reasonable candidate for this modality??because she has a limited postvoid residual.?? I explained that that can be??discussed through??our??team and urology.?? In terms of??different options for estrogen replacement in the vagina,??I also??brought up the possibility of the Estring.?? She??does not like??and finds it??difficult to remember??using the??Vagifem tablets.?? The Estring??with its??once every 3-month??administration??timeframe??seems to be a better??fit for her.?? This prescription was called in??and was $85 which she thought was reasonable.?? She went downstairs, picked it up,??and brought itback up to the office where it was then inserted into her vagina.?? She will stop the Vagifem??and I recommended she set up an appointment??to see??urology in 3 months??for her next follow-up. ??If the medication does not seem to be helping??they could consider??Gemtesa??or??Botox therapy of the bladder.?? 2.??History of total abdominal hysterectomy??Z90.710 Problem List/Past Medical History Ongoing Allergic rhinitis [...] child??? section Medications What How Much When Why Instructions New estradiol topical (estradiol 2 mg vaginal ring) 1 Each Vaginal (in the vagina) Every 3 months Duration: 90 Days Refills: 4 Pickup at [facility] Unchanged acetaminophen (Tylenol 8 Hour 650 mg oral tablet, extended release) 1 tab Oral (given by mouth) 2 times a day as needed for as needed for fever [facility] arthritis Contact prescribing physician if questions or concerns ?? Unchanged acetaminophen (Tylenol Extra Strength 500 mg oral tablet) 4 times a day as needed Contact prescribing physician if questions or concerns ?? Unchanged albuterol (Proventil HFA 90 mcg/ inh inhalation aerosol) 4 times a day 2 puffs as needed Contact prescribing physician if questions or concerns ?? Unchanged bempedoic acid (Nexletol 180 mg oral tablet) 1 tab Oral (given by mouth) Every other day Duration: 90 Days Contact prescribing physician if questions or concerns ?? Unchanged cariprazine (Vraylar 1.5 mg oral capsule) 1 Capsules Oral (given by mouth) Every day Contact prescribing physician if questions or concerns ?? Unchanged desloratadine (Clarinex 5 mg oral tablet) 1 tab Oral (given by mouth) Every day Contact prescribing physician if questions or concerns ?? Unchanged EPINEPHrine (EpiPen 2-Melchor 0.3 mg injectable kit) 0.3 Milligrams As Directed as needed for as needed for allergic reaction as directed Injection PRN Allergic Reaction Contact prescribing physician if questions or concerns ?? Unchanged estradiol topical (Vagifem 10 mcg vaginal tablet) 1 tab Vaginal (in the vagina) Mon/Fri Duration: 90 Days Contact prescribing physician if questions or concerns ?? Unchanged fluticasone nasal (Flonase) Nasal (into the nose) As needed for as needed Contact prescribing physician if questions or concerns ?? Unchanged gabapentin (gabapentin 100 mg oral capsule) 2 Capsules Oral (given by mouth) Every evening Start with 1 capsule at bedtime. If tolerating for 2 nights, can increase to 2 capsules at bedtime.Monitor for drowsiness. Contact prescribing physician if questions or concerns ?? Unchanged ibuprofen (ibuprofen 100 mg oral tablet) 2 tab Oral (given by mouth) Every 6 hours as needed for as needed for fever [facility] arthritis Contact prescribing physician if questions or concerns ?? Unchanged icosapent (Vascepa 1 g oral capsule) 2 Capsules Oral (given by mouth) 2 times a day Duration: 90 Days Contact prescribing physician if questions or concerns ?? Unchanged ketotifen ophthalmic (ketotifen 0.025% ophthalmic solution) 1 Drops Both eyes 2 times a day Contact prescribing physician if questions or concerns ?? Unchanged levothyroxine (Tirosint 50 mcg (0.05 mg) oral capsule) 1 Capsules Oral (given by mouth) Every day Contact prescribing physician if questions or concerns ?? Unchanged lurasidone (Latuda 20 mg oral tablet) 1 tab Oral (given by mouth) Every day Contact prescribing physician if questions or concerns ?? Unchanged meloxicam (meloxicam 7.5 mg oral tablet) 1 tab Oral (given by mouth) Every day Contact prescribing physician if questions or concerns ?? Unchanged montelukast (Singulair) 10 Milligrams Oral (given by mouth) Every day Contact prescribing physician if questions or concerns ?? Unchanged omeprazole (omeprazole 20 mg oral delayed release capsule) 1 Capsules Oral (given by mouth) Every day Duration: 90 Days Appointment Contact prescribing physician if questions or concerns ?? Unchanged traZODone (traZODone 150 mg oral tablet) 90 EA, TAKE 1 TABLET BY MOUTH EVERY DAY AT BEDTIME Contact prescribing physician if questions or concerns ?? Unchanged traZODone (traZODone 50 mg oral tablet) 1 tab Oral (given by mouth) Every night at bedtime as needed for insomnia. In addition to 150mg. Contact prescribing physician if questions or concerns ?? Unchanged triamcinolone topical (triamcinolone 0.025% topical cream) 1 Application Topical (on the skin) Every day Duration: 14 Days Contact prescribing physician if questions or concerns ?? 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[employer] SARS-CoV-2 (COVID-19) mRNA-1273 vaccine 09/20/2021 [...] vaccine 11/15/2014 Recorded Electronically Signed on 12/27/22 02:59 PM Lyle Preston MD Patient Care team information Care Team Personnel Name: KENN BRENNER Position: No Access Member Role: Primary Care Physician Address: Address: [address] [place] [id number] [place] [address] Name: Yasmine Strickland APRN Position: Physician Member Role: Nurse Practitioner Address: Address: [address] [place] [address] Care Team Related Persons Name: MARIANO MORENO Address: Home Name: DESEAN ESPARZA Address: Home [address] [place] [phone] [facility] Name: DESEAN ESPARZA Address: Home [address] [place] [id number]
--- OUTSIDE RECORDS SUMMARY | 2023-05-21 15:35 | XMS_ITS | Continuity of Care Document ---
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: [employer] 2Result Comment: Unit: Unknown 3Result Comment: Unit: [...] drowsiness., # 60 cap, 0 Refill(s), Pharmacy: [facility] Start Date: 08/14/22 Status: Ordered ketotifen [...] Daily, # 30 cap, 0 Refill(s), Pharmacy: [facility] Start Date: 08/07/22 Status: Ordered Proventil HFA 90 mcg/inh inhalation aerosol QID, 2 puffs as needed, 0 Refill(s) Start Date: 04/27/22 Status: Ordered Repatha Prefilled Syringe 140 mg/mL subcutaneous solution 0 Refill(s) Start Date: 08/27/22 Status: Ordered Tirosint 50 mcg (0.05 mg) oral capsule 50 mcg = 1 cap, Oral, Daily, # 90 cap, 0 Refill(s), Pharmacy: [facility] Start Date: 08/23/22 Status: Ordered traZODone [...] Sat////, # 65 tab, 4 Refill(s), Pharmacy: [facility] Start Date: 08/17/22 Stop Date: 11/10/23 [...] Completed Surgery 2 06/2020 Completed 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 COMPARISON: None FINDINGS: Grade 1 spondylolisthesis at L5-S1 with grade 1 anterolisthesis at L4-5. Mild retrolisthesis at L1-2 and L2-3. Mild levoscoliosis centered in the mid-lumbar region. Loss of intervertebral disc stature and signal intensity at several levels in the lumbar region on sagittal T2-weighted images consistent with desiccation and degeneration L5-S1: Mild diffuse disc bulge with bilateral facet hypertrophy. No significant spinal stenosis with AP spinal canal diameter of 12 mm. Mild bilateral neural foraminal narrowing. L4-5: Mild diffuse disc bulge with bilateral facet hypertrophy. No significant spinal stenosis with AP spinal canal diameter of 11 mm. Mild bilateral neural foraminal narrowing L3-4: Mild diffuse disc bulge with bilateral facet and ligamentum flavum hypertrophy. No significant spinal stenosis with AP spinal canal diameter of 8.5 mm. Significant right neural foraminal narrowing with mild left neural foraminal narrowing L2-3: Mild diffuse disc bulge with bilateral facet hypertrophy. No significant central stenosis with AP spinal canal diameter of 11 mm. Mild bilateral neural foraminal narrowing L1-2: Broad-based left paracentral disc extrusion superimposed on a diffuse disc bulge. Mild bilateral facet hypertrophy. Moderate left lateral recess stenosis. No significant central stenosis with AP spinal canal diameter of 10 mm. Moderate-severe left neural foraminal narrowing with moderate right neural foraminal narrowing Mild posterior disc bulges at several levels in the visualized lower thoracic spine without significant stenosis or cord compression. The conus is normal in morphology and signal intensity and terminates at the L1 level. No suspicious focal marrow lesions with mild degenerative endplate changes and Schmorl's nodes at some levels. No vertebral body compression deformity in the lumbar region Paraspinal soft tissues are unremarkable. IMPRESSION: Multilevel spondylotic changes. Moderate left lateral recess stenosis at L1-2 with moderate-severe left neural foraminal narrowing at L1-2. Significant right neural foraminal narrowing at L3-4. Please see above discussion for individual level description. Normal conus. JOB #: [id number] Final Signed by: Carlos Martinez MD Signed (Electronic Signature): 08/27/2022 1:11 pm Social History Social History Type Response Tobacco Never tobacco user T obacco Use:. Sex MR Lumbar spine WO contrast * Carlos Martinez MD: VERIFY, VERIFY Event Display: Report EXAM DESCRIPTION: MRI Spine Lumbar w/o Contrast 08/27/2022 INDICATION: BACK AND BILATERAL LEG PAIN, MOSTLY L5 PATTERN TECHNIQUE: Multiplanar MRI examination of the lumbar spine utilizing T1, fat-suppressed T2 and fast STIR technique. COMPARISON: None FINDINGS: Grade 1 spondylolisthesis at L5-S1 with grade 1 anterolisthesis at L4-5. Mild retrolisthesis at L1-2 and L2-3. Mild levoscoliosis centered in the mid-lumbar region. Loss of intervertebral disc stature and signal intensity at several levels in the lumbar region on sagittal T2-weighted images consistent with desiccation and degeneration L5-S1: Mild diffuse disc bulge with bilateral facet hypertrophy. No significant spinal stenosis with AP spinal canal diameter of 12 mm. Mild bilateral neural foraminal narrowing. L4-5: Mild diffuse disc bulge with bilateral facet hypertrophy. No significant spinal stenosis with AP spinal canal diameter of 11 mm. Mild bilateral neural foraminal narrowing L3-4: Mild diffuse disc bulge with bilateral facet and ligamentum flavum hypertrophy. No significant spinal stenosis with AP spinal canal diameter of 8.5 mm. Significant right neural foraminal narrowing with mild left neural foraminal narrowing L2-3: Mild diffuse disc bulge with bilateral facet hypertrophy. No significant central stenosis with AP spinal canal diameter of 11 mm. Mild bilateral neural foraminal narrowing L1-2: Broad-based left paracentral disc extrusion superimposed on a diffuse disc bulge. Mild bilateral facet hypertrophy. Moderate left lateral recess stenosis. No significant central stenosis with AP spinal canal diameter of 10 mm. Moderate-severe left neural foraminal narrowing with moderate right neural foraminal narrowing Mild posterior disc bulges at several levels in the visualized lower thoracic spine without significant stenosis or cord compression. The conus is normal in morphology and signal intensity and terminates at the L1 level. No suspicious focal marrow lesions with mild degenerative endplate changes and Schmorl's nodes at some levels. No vertebral body compression deformity in the lumbar region Paraspinal soft tissues are unremarkable. IMPRESSION: Multilevel spondylotic changes. Moderate left lateral recess stenosis at L1-2 with moderate-severe left neural foraminal narrowing at L1-2. Significant right neural foraminal narrowing at L3-4. Please see above discussion for individual level description. Normal conus. JOB #: [id number] Final Signed by: Carlos Martinez MD Signed (Electronic Signature): 08/27/2022 1:11 pm Patient Care team information Care Team Personnel Name: Yasmine Batista APRN Position: Physician Member Role: Nurse Practitioner Address: Address: [address] [place] [address] Name: Veronica Barrios APRN Position: Physician Member Role: Primary Care Physician Address: Address: [address] [place] [address] Care Team Related Persons Name: MARIANO MORENO Address: Home Name: DESEAN ESPARZA Address: Home [address] [place] [phone] [facility] Name: DESEAN ESPARZA Address: Home [address] [place] [phone] [facility]
--- OUTSIDE RECORDS SUMMARY | 2023-05-21 15:35 | XMS_ITS | Continuity of Care Document ---
Author Name Unknown Organization [facility] Ambulatory Clinics Address [address] [place] [address] Care Team Providers Care Track Car Operator Name Role Phone KENN BRENNER Primary Care Physician Encounter [facility] NBR [id number] Date(s): 12/27/22 - 12/27/22 [facility] Ambulatory Clinics [address] [place], [place] [address] Encounter Diagnosis Osteoarthritis of left knee(Discharge Diagnosis) - 12/27/22 Discharge Disposition: Home or Self Care Attending Physician: Yasmine Strickland APRN Allergies, Adverse Reactions, [...] 11/15/14 Tu rded 1Result Comment: Unit: Unknown 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 If tolerating for 2 nights, can increase to 2 capsules at bedtime. Monitor for drowsiness., # 60 cap, 0 Refill(s), Pharmacy: [facility] Start Date: 08/14/22 Status: Ordered ibuprofen 100 mg oral tablet 200 mg = 2 tab, Oral, every 6 hr, PRN as needed for fever, # 80 tab, 1 Refill(s), Pharmacy: [facility] Start Date: 11/02/22 Status: Ordered ketotifen [...] , # 90 cap, 3 Refill(s), Pharmacy: [facility] Start Date: 10/16/22 Stop Date: 10/11/23 Status: Ordered Proventil HFA 90 mcg/inh inhalation aerosol QID, 2 puffs as needed, 0 Refill(s) Start Date: 04/27/22 Status: Ordered Singulair 10 mg =, Oral, Daily, 0 Refill(s) Start Date: 10/24/22 Status: Ordered Tirosint 50 mcg (0.05 mg) oral capsule 50 mcg = 1 cap, Oral, Daily, # 90 cap, 0 Refill(s), Pharmacy: [facility] Start Date: 08/23/22 Status: Ordered traZODone [...] fever, # 50 tab, 1 Refill(s), Pharmacy: [facility] Start Date: 11/02/22 Status: Ordered Tylenol [...] Completed Surgery 2 06/2020 Completed Drainage of medical auditor y canal abscess 3 10/2016 Completed [...] Range]: 1 Peripheral Pulse Rate [60-100 bpm] 63 bp m (12/27/22 10:13 AM) Blood Pressure [90-140/60-90 mmHg] 128/8 2mmHg (12/27/22 10:13 AM) Weight 74.84 kg (12/27/22 10:13 AM) Weight Measured (lbs) 164.994 lb (12/27/22 10:13 AM) Height 160.02 cm (12/27/22 10:13 AM) Height/Length Measured (inches) 63 inch (12/27/22 10:13 AM) BSA Measured 1.82 m2 (12/27/22 10:13 AM) Body Mass Index 29.23 kg/m2 (12/27/22 10:13 AM) Social History Social History Type Response Tobacco Never tobacco user T obacco Use:. Sex Physician Outpatient Note * Yasmine Strickladn APRN: PERFORM Event Display: Office Clinic Note Physician Authored Date: [id number] YESSENIA ESPARZA :1950 Age:72 years Sex:Female Visit Date:12/27/2022 Primary Care Physician: KENN BRENNER Chief Complaint left knee pain History of Present Illness Yessenia is a well-known patient to me, comes in today??for follow-up evaluation of her left knee, shehas known well-established osteoarthritis of this knee, she has been trying to treat this conservatively.?? She has been struggling over the past 2 years being treated for Lyme disease.?? She does state that things are getting better slowly. ??The injections in her knee have always been helpful.?? She is??not wanting to move forward with total knee arthroplasty she has been through the right sideand it was quite difficult for her.?? At any rate she is here today for evaluation, hoping to proceed with SynviscOne injection which she has had in the past and done well with.?? She has not had anytraumatic event or injury, unfortunately she has not been able to??be as active and??exercises much as she would like to but hoping to get back to it soon. Review of Systems Constitutional:?No??fevers,?No??chills,?No??sweats Eye:?No??recent visual problems ENT:?No??ear pain,?No??nasal congestion,?No??sore throat Respiratory:?No??shortness of breath,?No??cough Cardiovascular:?No??Chest pain,?No??palpitations,?No??syncope Gastrointestinal:?Nonausea,?No??vomiting,?No??diarrhea Genitourinary:?No??hematuria Ba/Lymph:?No??bruising tendency,?No??swollen lymph glands Endocrine:?No??excessive thirst,??No??excessive hunger Musculoskeletal:??No??back pain,??No??neck pain,??Positive for??joint pain,??No??muscle pain,??No??decreased range of motion Integumentary:?No??rash,?No??pruritus,?No??abrasions Neurologic: Alert & oriented X 4 Psychiatric:?No??anxiety,?No??depression Physical Exam Vitals & Measurements HR:??63??(Peripheral)?? BP:??128/82?? SpO2:??96%?? HT:??160.02??cm?? WT:??74.84??kg?? BMI:??29.23?? BSA:??1.82?? General: ??appears stated age, well dressed HEENT: [...] distally of limb are 2+?? Musculoskeletal: Left knee: To inspection no effusion no erythema no open areas of the skin no signs or symptoms of infection, she is able to fully extend she is able to flex to??125 today. Procedure Risks and benefits of injection is [...] in the suprapatella pouch and this is documented, 48 mg of SynviscOne and 40 mg Kenalog is then injected using sterile technique. [...] questions or concerns. Assessment/Plan 1.??Osteoarthritis of left knee??M17.12 Leonel and I spent about 30 minutes together today with 20 those minutes spent reviewing her treatment for Lyme, the fact that she is getting better over time, she is seeing Dr. Hart??in our spineclinic and is making gains with her as well. ??After physical exam??I did feel comfortable moving forward with??injection. ??Hopefully this will continue to provide her symptomatic benefit, postinjection instructions are given, if she has any issues questions concerns she encouraged to call.?? Otherwise as far as her knee is concerned we will see her back on appearing basis. Problem List/Past Medical History Ongoing Allergic rhinitis [...] D deficiency Historical No qualifying data Medications Clarinex 5 mg oral tablet, 5 [...] morphine penicillins sulfa drugs Electronically Signed on 12/27/22 10:19 AM Yasmine Strickland APRN Patient Care team information Care Team Personnel Name: KENN BRENNER Position: No Access Member Role: Primary Care Physician Address: Address: [address] [place] [id number] [place] [address] Name: Yasmine Strickland APRN Position: Physician Member Role: Nurse Practitioner Address: Address: [address] [place] [address] Care Team Related Persons Name: MARIANO MORENO Address: Home Name: DESEAN ESPARZA Address: Home [address] [place] [phone] [facility] Name: DESEAN ESPARZA Address: Home [address] [place] [id number]
--- OUTSIDE RECORDS SUMMARY | 2023-05-21 15:41 | XMS_ITS | Patient Health Record ---
Author Name Unknown [facility] Address [address] [place] [address] Care Team Providers Care Knowledge Engineer Name Role Phone Sukhjinder Stewart Unavailable [phone] JEFFREY OCONNELL MD Unavailable Unavailable REASON FOR REFERRAL No Information MEDICATIONS Medication SIG (Take, Route, Frequency, Duration) Notes Start Date End Date Status Restasis 0.05 % 1 drop into affected eye Ophthalmic Twice a day Active Scopolamine 1 MG/3DAYS 1 patch to skin b ehind the ear as needed Transdermal for 30 day(s) Not-Taking Naltrexone HCl 50 MG 1 tablet Orally Onc e a day for 30 day(s) Active Fish Oil 1000 MG 4 capsule Orally Onc e a day Active OFLOXIN OTIC 3 gtts ear bid No t-Taking Artificial Tears 0.2-0.2-1 % as directed Ophthalmic Not-T aking NasalCrom 5.2 MG/ACT 1 spray in each nos tril Nasally Three times a day for 30 day(s) Active Tirosint 50 MCG 1 capsule Orally Onc e a day Active Engerix-B 20 MCG/ML as directed Intramuscular Active Acetaminophen 500 MG 1 tablet as needed Orally every 6 hrs Active Vitamin D (Cholecalciferol) 50 MCG (2000 UT) 1 capsule Orally Once a day for 30 day(s) Active traZODone HCl 50 MG 2 tabs HS Orally Onc e a day Active Fexofenadine HCl 180 MG 1 tablet Orally Once a day for 30 day(s) Active Amitriptyline HCl 50 MG 1 tablet at bedt niels Orally Once a day for 30 day(s) Not-Taking SOCIAL HISTORY Tobacco Use: Social History Observation Description Date Smoking Status WARNING: Information temporarily unavailable Sex Assigned At : Social History Observation Description Sex Assigned At Unknown SMOKING Question Answer Notes Are you a: nonsmoker PROBLEMS Problem Type ICD Code Onset Dates Problem Status W/U Status Risk SNOMED Code Notes Problem Primary osteoarthritis of first carpometacarpal joint of right hand (M18.11) Active confirmed [id number] PLAN OF TREATMENT No Information Insurance Providers Payer Name Payer Address Payer Phone Subscriber Number Group Number Insured Name Patient Relationship to Insured Coverage Start Date Coverage End Date MEDICARE [address] [place], [place] [id number] SUNNY ESPARZA Self - patient is the insured S-[facility] [address] [place] [address] [phone] SUNNY ESPARZA Self - patient is the insured SELF PAY AFTER MEDIC[place] [address] [address] SUNNY ESPARZA Self - patient is the insured MEDICAL (GENERAL) HISTORY Medical History History ICD Code Biceps tendinitis, right Muscle cramps GERD Surgical History Surgery Date(Month/Year)
[2023-05-21 16:28] LABS: HCT 35.6 % (36.0-46.0); HGB 11.9 g/dL (11.2-15.7); MCH 30.8 pg (27.0-33.0); MCHC 33.4 % (32.0-36.0); MCV 92 fL (80-95); MPV 9.7 fL (8.0-11.0); Platelet Count 413 10^3/uL (130-400); RBC 3.86 10^6/uL (3.93-5.22); RDW 11.9 % (11.7-14.6); WBC 6.05 10^3/uL (4.4-10.8)
[2023-05-21 18:55] LABS: Uric Acid 5.7 mg/dL (2.6-6.0)
== END 2023-05-21 15:32 | disposition home or self-care (01) ==
LOC: NCHCN 15:31
PROVIDERS: PCP Nurse Practitioner Family; Visit Provider Nurse Practitioner Family
DX: R23.3 Spontaneous ecchymoses (principal); M79.89 Other specified soft tissue disorders; M79.672 Pain in left foot
CPT/HCPCS: 85027; 84550

== ENCOUNTER → 2023-05-22 03:19 | Outpatient (CLI) | payer MEDICARE, SELFPAY ==
--- NOTE | 2023-05-22 | DI.US_ITS ---
Exam(s) US LOWER EXTREMITY VENOUS LT EXAM: US LOWER EXTREMITY VENOUS LT CLINICAL HISTORY: SWELLING AND PAIN LT LEG,? DVT,m79.89. TECHNIQUE: Lower extremity venous ultrasound performed using grayscale, color-flow, and spectral Do ppler analysis. COMPARISON: No exams were available for comparison FINDINGS: The common femoral, femoral and popliteal veins demonstrate normal compressibility, augmentation, and color Doppler. The posterior tibial veins are patent. No saphenous vein thrombosis or other superfi cial venous thrombosis is seen. No hematoma or Mariscal's cyst is seen. IMPRESSION: Negative lower extremity ultrasound. No evidence of DVT. DATA REPOSITORY:
--- OUTSIDE RECORDS SUMMARY | 2023-05-22 03:29 | XMS_ITS | Patient Health Record ---
Author Name Unknown [facility] Address [address] [place] [address] Care Team Providers Care Printer'S Assistant Name Role Phone Sukhjinder Stewart Unavailable JEFFREY OCONNELL MD Unavailable Unavailable REASON FOR [...] joint of right hand (M18.11) Active confirmed [id number] PLAN OF TREATMENT No Information Insurance Providers Payer Name Payer Address Payer Phone Subscriber Number Group Number Insured Name Patient Relationship to Insured Coverage Start Date Coverage End Date MEDICARE [address] [place], [place] [id number] SUNNY ESPARZA Self - patient is the insured S-[facility] [address] [place] [address] SUNNY ESPARZA Self - patient is the insured SELF PAY AFTER [place] [address] [address] SUNNY ESPARZA Self - patient is the insured MEDICAL (GENERAL) HISTORY Medical History History ICD Code Biceps tendinitis, right Muscle cramps GERD Surgical History Surgery Date(Month/Year)
--- NOTE | 2023-05-22 11:44 | DI.RAD_ITS ---
Exam(s) XR FOOT LT COMPLETE EXAM: XR FOOT LT COMPLETE CLINICAL HISTORY: SWELLING LT FOOT, M79.89,PAIN. TECHNIQUE: 2D digital imaging was performed. Three views. COMPARISON: CR XR FOOT 3 VIEW LEFT from 12/27/2022 FINDINGS: BONES: Nondisplaced fracture seen at base 2nd metatarsal. No definite involvement of the articular s urface. No additional fractures. No bony destructive lesion is seen. JOINTS: No dislocation present. Mild degenerative changes 1st MTP joint. SOFT TISSUE: Mild dorsal swelling. IMPRESSION: nondisplaced fracture base of 2nd metatarsal. DATA REPOSITORY: RADIATION DOSE DELIVERED:
== END ==
PROVIDERS: PCP Nurse Practitioner Family; Visit Provider Nurse Practitioner Family
DX: S92.324A Nondisplaced fracture of second metatarsal bone, right foot, initial encounter for closed fracture (principal); X58.XXXA Exposure to other specified factors, initial encounter
CPT/HCPCS: 73630; 93971

== ENCOUNTER 2023-05-28 10:53 | Outpatient (CLI) | payer MEDICARE, SELFPAY ==
--- NOTE | 2023-05-28 10:30 | DI.RAD_ITS ---
Exam(s) XR FOOT LT COMPLETE EXAM: XR FOOT LT COMPLETE CLINICAL HISTORY: evaluate. TECHNIQUE: 2D digital imaging was performed. COMPARISON: CR XR FOOT LT COMPLETE from 05/22/2023 FINDINGS: 3 views The nondisplaced stress fracture line in the proximal half of the 2nd metatarsal appears unchanged. Fracture line is still visible. There is no obvious callus formation. No osseous lesion at this lev el nor elsewhere in the foot. There is no diastasis of the Lisfranc joint. IMPRESSION: No change in the appearance of the fracture line in the proximal half of of the 2nd metatarsal when c ompared to 05/22/2023. No significant displacement. DATA REPOSITORY: RADIATION DOSE DELIVERED:
== END 2023-05-28 10:54 | disposition home or self-care (01) ==
LOC: DIORS 10:53
PROVIDERS: PCP Nurse Practitioner Family; Referring Provider Nurse Practitioner Family; Visit Provider Student in an Organized Health Care Education/Training Program
DX: S92.322A Displaced fracture of second metatarsal bone, left foot, initial encounter for closed fracture; X58.XXXA Exposure to other specified factors, initial encounter
CPT/HCPCS: 99203; 73630

== ENCOUNTER 2023-06-04 10:13 | Outpatient (REF) | payer MEDICARE, SELFPAY ==
--- OUTSIDE RECORDS SUMMARY | 2023-06-04 10:22 | XMS_ITS | Patient Health Record ---
Author Name Unknown [facility] Address [address] [place] [address] Care Team Providers Care Marker Maker Name Role Phone Sukhjinder Stewart Unavailable [phone] JEFFREY OCONNELL MD Unavailable Unavailable REASON FOR [...] joint of right hand (M18.11) Active confirmed [id number] PLAN OF TREATMENT No Information Insurance Providers Payer Name Payer Address Payer Phone Subscriber Number Group Number Insured Name Patient Relationship to Insured Coverage Start Date Coverage End Date MEDICARE [address] [place], [place] [id number] SUNNY ESPARZA Self - patient is the insured S-[facility] [address] [place] [address] [phone] SUNNY ESPARZA Self - patient is the insured SELF PAY AFTER [place]IC[place] [address] SUNNY ESPARZA Self - patient is the insured MEDICAL (GENERAL) HISTORY Medical History History ICD Code Biceps tendinitis, right Muscle cramps GERD Surgical History Surgery Date(Month/Year)
[2023-06-04 17:23] LABS: Iron 72 ug/dL (50-170); Total Iron Binding Capacity 312 ug/dL (250-450); Transferrin Sat 23 % (15-50)
[2023-06-04 17:56] LABS: Ferritin 121 ng/mL (8-252)
[2023-06-05 09:01] LABS: Transferrin 248 mg/dL (201-352)
== END 2023-06-04 10:14 | disposition home or self-care (01) ==
LOC: NCHCN 10:13
PROVIDERS: PCP Nurse Practitioner Family; Visit Provider Nurse Practitioner Family
DX: R53.83 Other fatigue (principal)
CPT/HCPCS: 82728; 83540; 83550; 84466

== ENCOUNTER 2023-07-16 11:48 | Outpatient (CLI) | payer MEDICARE, SELFPAY ==
--- NOTE | 2023-07-16 09:27 | DI.RAD_ITS ---
Exam(s) XR FOOT LT COMPLETE EXAM: XR FOOT LT COMPLETE CLINICAL HISTORY: F/U FRACTURE. TECHNIQUE: 2D digital imaging was performed. Three views. COMPARISON: CR XR FOOT LT COMPLETE from 05/28/2023 FINDINGS: BONES: Callus formation is now seen the fracture at the base of the 2nd metatarsal. Fracture alignme nt is unchanged. No additional fractures identified. No bony destructive lesion is seen. JOINTS: No dislocation present. SOFT TISSUE: Normal. IMPRESSION: Healing fracture 2nd metatarsal. DATA REPOSITORY: RADIATION DOSE DELIVERED:
== END 2023-07-16 11:49 | disposition home or self-care (01) ==
LOC: DIORS 11:48
PROVIDERS: PCP Nurse Practitioner Family; Visit Provider Student in an Organized Health Care Education/Training Program
DX: S92.322D Displaced fracture of second metatarsal bone, left foot, subsequent encounter for fracture with routine healing (principal); X58.XXXD Exposure to other specified factors, subsequent encounter
CPT/HCPCS: 99213; 73630

== ENCOUNTER 2023-08-05 12:51 | Outpatient (REF) | payer MEDICARE, SELFPAY ==
[2023-08-05 16:11] LABS: Creatinine,Urine 14.37 mg/dL
[2023-08-05 16:12] LABS: Creatinine,24hr Ur 0.53 g/24hr (0.60-1.80); Total Volume 3785 ml
[2023-08-06 09:12] LABS: Calcium Urine 7.4 mg/dL (See Note); Calcium Urine 24 hr 287 mg/24hr (100-300); Timed Urine Volume 3875 mL
== END 2023-08-05 12:52 | disposition home or self-care (01) ==
LOC: LBN 12:51
PROVIDERS: PCP Nurse Practitioner Family; Visit Provider Student in an Organized Health Care Education/Training Program
DX: M85.88 Other specified disorders of bone density and structure, other site (principal)
CPT/HCPCS: 81050; 82340; 82570

== ENCOUNTER 2023-09-18 15:52 | Outpatient (CLI) | payer MEDICARE, SELFPAY ==
--- NOTE | 2023-09-18 13:30 | DI.RAD_ITS ---
Exam(s) XR FOOT LT COMPLETE EXAM: XR FOOT LT COMPLETE CLINICAL HISTORY: F/U FRACTURE. TECHNIQUE: 2D digital imaging was performed. Three views. COMPARISON: CR XR FOOT LT COMPLETE from 07/16/2023 FINDINGS: BONES: continued healing at fracture at base of 2nd metatarsal. No bony destructive lesion is seen. JOINTS: No dislocation present. SOFT TISSUE: Normal. IMPRESSION: Healing fracture of 2nd metatarsal DATA REPOSITORY: RADIATION DOSE DELIVERED:
== END 2023-09-18 15:53 | disposition home or self-care (01) ==
LOC: DIORS 15:52
PROVIDERS: PCP Nurse Practitioner Family; Visit Provider Student in an Organized Health Care Education/Training Program
DX: S92.322D Displaced fracture of second metatarsal bone, left foot, subsequent encounter for fracture with routine healing (principal); X58.XXXD Exposure to other specified factors, subsequent encounter
CPT/HCPCS: 99213; 73630

== ENCOUNTER 2023-11-27 15:14 | Outpatient (CLI) | payer MEDICARE, SELFPAY ==
--- NOTE | 2023-11-27 13:45 | DI.RAD_ITS ---
Exam(s) XR FOOT LT COMPLETE EXAM: XR FOOT LT COMPLETE CLINICAL HISTORY: F/U FRACTURE. TECHNIQUE: 2D digital imaging was performed. Three views. COMPARISON: CR XR FOOT LT COMPLETE from 07/16/2023 CR XR FOOT LT COMPLETE from 09/18/2023 FINDINGS: BONES: Stable alignment of fracture at base of 2nd metatarsal. Some lucency remains present at the f racture site. No new abnormalities. No acute fracture is present. No bony destructive lesion is see n. JOINTS: No dislocation present. SOFT TISSUE: Normal. IMPRESSION: Stable alignment of 2nd metatarsal fracture. The fracture has not yet healed. DATA REPOSITORY: RADIATION DOSE DELIVERED:
== END 2023-11-27 15:15 | disposition home or self-care (01) ==
LOC: DIORS 15:14
PROVIDERS: PCP Student in an Organized Health Care Education/Training Program; Referring Provider Student in an Organized Health Care Education/Training Program; Visit Provider Student in an Organized Health Care Education/Training Program
DX: S92.322D Displaced fracture of second metatarsal bone, left foot, subsequent encounter for fracture with routine healing (principal); X58.XXXD Exposure to other specified factors, subsequent encounter
CPT/HCPCS: 99213; 73630

== ENCOUNTER → 2023-12-16 15:07 | Outpatient (BNVA) | payer MEDICARE, SELFPAY | PROVIDERS: PCP Student in an Organized Health Care Education/Training Program; Referring Provider Nurse Practitioner Family; Visit Provider Podiatrist | DX: M20.22 Hallux rigidus, left foot (principal); M20.21 Hallux rigidus, right foot; M77.41 Metatarsalgia, right foot; M77.42 Metatarsalgia, left foot; M67.01 Short Achilles tendon (acquired), right ankle; M67.02 Short Achilles tendon (acquired), left ankle; M21.41 Flat foot [pes planus] (acquired), right foot; M21.42 Flat foot [pes planus] (acquired), left foot | CPT/HCPCS: J1100; J0702; 20600 ==

== ENCOUNTER → 2024-01-15 14:37 | Outpatient (BNVA) | payer MEDICARE, SELFPAY | PROVIDERS: PCP Student in an Organized Health Care Education/Training Program; Referring Provider Student in an Organized Health Care Education/Training Program; Visit Provider Podiatrist | DX: M20.22 Hallux rigidus, left foot (principal); M20.21 Hallux rigidus, right foot; M77.41 Metatarsalgia, right foot; M77.42 Metatarsalgia, left foot; M67.01 Short Achilles tendon (acquired), right ankle; M67.02 Short Achilles tendon (acquired), left ankle; M21.41 Flat foot [pes planus] (acquired), right foot; M21.42 Flat foot [pes planus] (acquired), left foot; M79.671 Pain in right foot; M79.672 Pain in left foot | CPT/HCPCS: 20600; J0702; J1100 ==

== ENCOUNTER 2024-01-24 14:53 | Outpatient (CLI) | payer MEDICARE, SELFPAY ==
[2024-01-27 12:06] LABS: Myeloperoxidase Ab IgG <0.2 U; Proteinase 3 Ab (PR3) <0.2 U
[2024-01-27 22:55] LABS: Milk, IgE 0.97 kU/L (<0.70)
== END 2024-01-24 14:54 | disposition home or self-care (01) ==
LOC: LBO 14:53
PROVIDERS: PCP Student in an Organized Health Care Education/Training Program; Visit Provider Otolaryngology Otolaryngology/Facial Plastic Surgery
DX: R68.2 Dry mouth, unspecified (principal); H04.129 Dry eye syndrome of unspecified lacrimal gland; R21 Rash and other nonspecific skin eruption; T78.1XXA Other adverse food reactions, not elsewhere classified, initial encounter
CPT/HCPCS: 36415; 83516; 86003

== ENCOUNTER 2024-02-15 12:06 | Inpatient (IN) | payer MEDICARE, SELFPAY ==
[2024-02-15] VITALS (111 sets, daily range): BP systolic 121–194; BP diastolic 63–144; PULSE 60–105; RESP 11–29; TEMP 36.2–37.2; O2SAT 91–99
--- NOTE | 2024-02-15 12:00 | DI.CT_ITS ---
Exam(s) CT HEAD WO EXAM: CT HEAD WO CLINICAL HISTORY: ams, no trauma. TECHNIQUE: Imaging Protocol: Axial computed tomography images with coronal and sagittal reformatted images were created and reviewed COMPARISON: No exams were available for comparison FINDINGS: Ventricles and Extra axial spaces: Normal in size and morphology for the patient's age. Hemorrhage: None. Cerebral parenchyma: No evidence of an acute territorial infarct. No mass effect is identified. Midline shift: None. Brainstem/Cerebellum: Normal. Calvarium: Normal. Visualized Paranasal sinuses/Mastoids: Clear. Soft Tissues: Unremarkable. IMPRESSION: No acute intracranial process. RADIATION DOSE DELIVERED: 893.42mGy.cm Total DLP DATA REPOSITORY: All CT scans at this facility are submitted to the National Radiology Data Registry (NRDR) Dose Index Registry (DIR) with the [employer] (ACR). RADIATION OPTIMIZATION: All CT scans at this facility use at least one of these dose optimization te chniques: automated exposure control; mA and/or kV adjustment per patient size (includes targeted exa ms where dose is matched to clinical indication); or iterative reconstruction.
--- NOTE | 2024-02-15 12:00 | RT.EKG_ITS ---
APPROVED REPORT Exam: Resting ECG Reason for Exam: [facility] Patient Location: E HR:74 bpm ECG Measurements Heart Rate 74 AXIS MD 146 P 48 QRSd 115 QRS -27 QT 426 T 41 QTc 473 Conclusion Sinus rhythm...normal P axis, V-rate 60- 99 Probable left atrial enlargement...P >50mS, <-0.10mV V1 Left ventricular hypertrophy...multiple LVH criteria sinus rhtyhm, left axis, normal intervals, non ischemic
--- NOTE | 2024-02-15 12:09 | DI.RAD_ITS ---
Exam(s) XR CHEST 2V PA LATERAL EXAM: XR CHEST 2V PA LATERAL CLINICAL HISTORY: ams TECHNIQUE: 2D digital imaging was performed of the chest. Two images were obtained. PA and lateral views were obtained. COMPARISON: No exams were available for comparison FINDINGS: There is poor inspiration. MEDIASTINUM: Normal. HEART: Normal. PULMONARY VASCULATURE: Normal. LUNGS: No focal consolidating infiltrates are present. PLEURAL SPACE: No pleural effusion or pneumothorax. BONE:Within normal limits for the patient's age. OTHER FINDINGS:Normal. IMPRESSION: No acute pulmonary findings. DATA REPOSITORY: RADIATION DOSE DELIVERED:
--- NOTE | 2024-02-15 12:15 | W.ED.GENAD ---
Discharge Plan Disposition Patient Disposition: Admit to [facility] Condition: Stable Discharge Details Chief Complaint: CVA/TIA Clinical Impression: Acute hyponatremia Primary Care Provider: Dana Cedillo ED Provider: Gaudencio Daley Home Meds and New Rx's Prescriptions: No Action fexofenadine 180 mg tablet 180 mg PO DAILY trazodone 50 mg tablet 150 mg PO QHS diazepam [Valium] 2 mg tablet 2 mg PO DAILY PRN olopatadine [Pataday Once Daily Relief] 0.2 % drops 1 drp ophthalmic (eye) DAILY PRN (Reason: itching) Qty: 2.5 0RF scopolamine base 1 mg over 3 days patch 3 day 1 patch transdermal Q3D PRN (Reason: motion sickness) Qty: 10 0RF olopatadine 0.2 % drops 1 drp ophthalmic (eye) DAILY PRN (Reason: itching) Qty: 2.5 3RF loratadine [Claritin] 10 mg tablet 10 mg PO DAILY calcium carbonate-vitamin D3 PO levothyroxine 50 mcg tablet 50 mcg PO DAILY epinephrine 0.3 mg/0.3 mL auto-injector 0.3 mg IM DIRECTED PRN (Reason: anaphylaxis) Qty: 2 2RF HPI General Date/Time Provider Initiated Documentation: 02/15/24 12:08. HPI Narrative: 74-year-old female brought in by EMS for evaluation of altered mental status, unknown duration, patient presented to her primary care physician today at clinic they noticed that she was not making sense verbally and called EMS over concern for possible stroke. Patient endorses some abdominal discomfort as well as some diarrhea. Patient denies any headache chest pain shortness of breath or recent injury. Related Data Home Medications ?Medication ?Instructions ?Recorded ?Confirmed trazodone 50 mg tablet 150 mg PO QHS 03/16/19 01/24/24 olopatadine 0.2 % eye drops 1 drp ophthalmic (eye) DAILY PRN 07/02/23 01/24/24 itching #2.5 mL fexofenadine 180 mg tablet 180 mg PO DAILY 07/16/23 01/24/24 diazepam 2 mg tablet (Valium) 2 mg PO DAILY PRN 09/11/23 01/24/24 calcium carbonate-vitamin D3 PO 10/10/23 01/24/24 levothyroxine 50 mcg tablet 50 mcg PO DAILY 10/10/23 01/24/24 loratadine 10 mg tablet (Claritin) 10 mg PO DAILY 10/10/23 01/24/24 epinephrine 0.3 mg/0.3 mL 0.3 mg (0.3 mL) IM DIRECTED PRN 10/29/23 01/24/24 injection, auto-injector anaphylaxis #2 ea olopatadine 0.2 % eye drops 1 drp ophthalmic (eye) DAILY PRN 01/24/24 01/24/24 (Pataday Once Daily Relief) itching #2.5 mL scopolamine base 1 mg over 3 days 1 patch transdermal Q3D PRN motion 01/24/24 01/24/24 transdermal patch sickness #10 ea Previous Rx's ?Medication ?Instructions ?Recorded olopatadine 0.2 % eye drops 1 drp ophthalmic (eye) DAILY PRN 07/02/23 itching #2.5 mL epinephrine 0.3 mg/0.3 mL 0.3 mg (0.3 mL) IM DIRECTED PRN 10/29/23 injection, auto-injector anaphylaxis #2 ea olopatadine 0.2 % eye drops 1 drp ophthalmic (eye) DAILY PRN 01/24/24 (Pataday Once Daily Relief) itching #2.5 mL scopolamine base 1 mg over 3 days 1 patch transdermal Q3D PRN motion 01/24/24 transdermal patch sickness #10 ea Allergies Allergy/AdvReac Type Severity Reaction Status Date / Time venom-honey bee (bee venom Allergy Severe Anaphylaxsi Verified 12/16/23 15:24 (honey bee)) s fenofibrate Allergy Mild Other (See Verified 12/16/23 15:24 Comment) amoxicillin trihydrate (From Allergy Other (See Verified 12/16/23 15:24 Augmentin) Comment) atorvastatin calcium (From Allergy Other (See Verified 12/16/23 15:24 Lipitor) Comment) celecoxib (From Celebrex) Allergy Other (See Verified 12/16/23 15:24 Comment) diclofenac sodium (From Allergy Other (See Verified 12/16/23 15:24 Voltaren) Comment) potassium clavulanate (From Allergy Other (See Verified 12/16/23 15:24 Augmentin) Comment) rosuvastatin calcium (From Allergy Other (See Verified 12/16/23 15:24 Crestor) Comment) simvastatin (From Zocor) Allergy Other (See Verified 12/16/23 15:24 Comment) Sulfa (Sulfonamide Allergy Other (See Verified 12/16/23 15:24 Antibiotics) Comment) sulfamethoxazole (From Allergy Other (See Verified 12/16/23 15:24 Bactrim) Comment) trimethoprim (From Bactrim) Allergy Other (See Verified 12/16/23 15:24 Comment) morphine AdvReac Intermediate Nausea Verified 12/16/23 15:24 oxycodone HCl (From AdvReac Intermediate Nausea Verified 12/16/23 15:24 OxyContin) Penicillins AdvReac Intermediate Nausea Verified 12/16/23 15:24 General Stated Complaint: CVA/TIA RANDALL: 2 Exam Narrative Exam Narrative: Alert to self and place however not to time Moist mucous membranes tongue secretions Lungs clear bilaterally speaking full sentences no wheezes rales or rhonchi Normal heart sounds no murmurs rubs or gallops Abdomen soft nontender nondistended Cranial nerves II through XII intact 5-5 strength upper and lower extremities bilaterally sensation intact, no ataxia, patient alert to place and self patient is not alert to time Course Vital Signs Vital signs: Vital Signs Temperature 36.8 C 02/15/24 12:04 Pulse 76 02/15/24 12:04 Respiratory Rate 20 02/15/24 12:04 Blood Pressure 178/65 H 02/15/24 12:04 Pulse Oximetry 94 02/15/24 12:04 Temperature 36.8 C 02/15/24 12:04 Temperature Source Oral 02/15/24 12:04 Pulse 76 02/15/24 12:04 Respiratory Rate 20 02/15/24 12:04 Blood Pressure 178/65 H 02/15/24 12:04 Blood Pressure Position Supine 02/15/24 12:04 Pulse Oximetry 94 02/15/24 12:04 Oxygen Delivery Method Room Air 02/15/24 12:04 Oxygen Flow Rate 0 02/15/24 12:04 Medical Decision Making 74-year-old presents with altered mental status of unknown duration, presented to clinic this morning was noted to have confused speech, patient is alert to self and place however not alert to time, nonfocal neurologic examination, no appreciable aphasia however patient does appear slightly confused and is disoriented to time. Endorses some diarrhea and abdominal discomfort. Abdomen soft nontender nondistended. Will obtain IV access vital signs, CT head CT abdomen pelvis, labs urinalysis, EKG fingerstick toxicologic labs. Consider UTI versus viral illness versus dehydration v electrolyte derangement lower suspicion for intracranial hemorrhage or stroke given history and physical lower suspicion for ACS PE or aortic pathology 13: 25 severe hyponatremia sodium 119, leading to mental status changes, have ordered hypertonic saline 3% 100 mL to be infused over [address] head and CT abdomen pelvis to assess for intracranial intra-abdominal process. Consider SIADH lower suspicion for polydipsia. Quality:[facility] Health Related Social Needs: No Data to Display [facility] All Active Problems (Updated 02/15/24 @ 14:34 by Gaudencio Daley MD) Acute hyponatremia (Acute) Hypercalciuria (Acute ~01/2024) 01/22/24 Endocrinology Metatarsalgia of both feet (Acute) Hallux rigidus of right foot (Acute) Hallux rigidus, left foot (Acute) Osteopenia (Acute 12/27/22) DEXA at [facility] Chronic low back pain (Chronic) 10/24/22 Steroid injection Mixed anxiety and depressive disorder (Acute) Arthritis of carpometacarpal (CMC) joint of right thumb (Acute) 11/07/21 & 12/29/21 Arthroplasty at [facility] Chronic rhinitis (Acute) Imbalance (Acute) History of vertigo (Acute) Fracture of second metatarsal bone of left foot (Acute ~05/16/23) Leg length discrepancy (Acute) Neuroma of third interspace of left foot (Acute) Neuroma of third interspace of right foot (Acute) Achilles tendon contracture, bilateral (Acute) Pes planus of both feet (Acute) Plantar fasciitis of left foot (Acute) Mild anemia (Acute) Wears hearing aid in both ears (Acute) Venous incompetence (Acute) Symptomatic varicose veins of both lower extremities (Acute) Urge incontinence (Acute) Atrophic vaginitis (Acute) Familial hypercholesteremia (Acute) Otorrhea (Acute) Sleep apnea (Acute) Hypothyroid (Chronic) Allergic rhinitis due to food (Acute 10/12/13) Allergic rhinitis due to animal (cat) (dog) hair and dander (Acute 05/04/13) Abnormal auditory perception (Acute 09/06/14) Allergic rhinitis due to pollen (Acute 05/04/13) Chronic otitis media (Acute 12/19/15) Chronic otorrhea of both ears (Acute 10/08/16) Chronic sinusitis (Acute 05/17/14) Conductive hearing loss (Acute 12/19/15) Eustachian tube anomaly (Acute 05/17/14) Nasal congestion (Acute 09/06/14) Obstructive sleep apnea (Acute 05/17/14) Sensorineural hearing loss, bilateral (Acute 04/04/15) Wheezing (Acute 05/04/13) Vitamin D deficiency disease (Acute) Fatigue (Acute) Chronic diarrhea (Acute) Urinary incontinence (Acute) Heart murmur, systolic (Acute) Medical History Lyme disease (2020) Allergic rhinitis (05/04/13) Perforation of left tympanic membrane History of endometriosis Encounter for screening colonoscopy Allergic fungal sinusitis (05/04/13) Surgical History H/O abdominoplasty age 59 Status post breast reduction age 59 H/O nasal septoplasty age 39 H/O hysterectomy for benign disease History of knee replacement R History of hysterectomy History of section History of tonsillectomy History of appendectomy History of colonoscopy Family History Brother Anxiety Depression Niece Depression Nephew Depression Mother Heart disease Father Heart disease Parkinson disease Sister Heart disease 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 Pets and animals: No Do you think of yourself as: straight/heterosexual Current gender identity: female What is your relationship status?: How often do you talk on the phone with friends or family?: three or more times per week How often do you get together with friends or relatives?: three or more times per week Do you belong to any clubs or organized social groups?: yes Panel score (0-1 are the most socially isolated patients): 2 What type of physical activity do you participate in: walking and swimming Duration: 15-30 minutes/day Frequency: 3-4 times per week Jodie/Jehovah'S Witness: Taoism Agree to transfusion: No Seatbelt use: always Helmet use: Yes Drive intox or ride w/intox fire truck driver: No Do you feel safe at home: Yes Do you feel safe in your relationship?: Yes
[2024-02-15 12:25] LABS: BE (Venous) 2 mmol/L (-2-3); HCO3 (Venous) 25 mmol/L (23-28); O2 Sat (Venous) 97 %; TCO2 (Venous) 23 mmol/L (24-29); pCO2 (Venous) 33 mmHg (41-51); pH (Venous) 7.49 (7.31-7.41); pO2 (Venous) 76 mmHg
[2024-02-15 12:27] LABS: Abs Immature Grans 0.05 10^3/uL (0.0-0.06); Absolute Basophil Count 0.03 10^3/uL (0.0-0.2); Absolute Eosinophil Count 0.03 10^3/uL (0.0-0.7); Absolute Lymphocyte Count 1.61 10^3/uL (1.2-3.4); Absolute Monocyte Count 0.76 10^3/uL (0.1-0.8); Absolute Neutrophil Count 5.61 10^3/uL (1.2-6.7); Basophils % 0.4 %; Eosinophils % 0.4 %; HGB 12.6 g/dL (11.2-15.7); Immature Grans % 0.6 %; Lymphocytes % 19.9 %; MCH 31.4 pg (27.0-33.0); MCHC 37.1 % (32.0-36.0); MCV 85 fL (80-95); MPV 8.3 fL (8.0-11.0); Monocytes % 9.4 %; Neutrophils % 69.3 %; Platelet Count 406 10^3/uL (130-400); RBC 4.01 10^6/uL (3.93-5.22); RDW 11.3 % (11.7-14.6); RDW-SD 34.7 fL; WBC 8.09 10^3/uL (4.4-10.8)
[2024-02-15 12:37] LABS: Ammonia 19 umol/L (11-32)
[2024-02-15 12:44] LABS: INR 1.1 (0.9-1.1); PTT Activated 23.1 sec (23.6-32.8); Prothrombin Time 10.6 sec (9.1-11.1)
[2024-02-15] MEDS: Normal Saline 500 ML 1000 ML IV (12:59)
[2024-02-15 13:04] LABS: Salicylate < 2.8 mg/dL (<2.8)
[2024-02-15 13:05] LABS: ALT 30 U/L (14-59); AST 30 U/L (15-37); Alkaline Phosphatase 61 U/L (46-116); Anion Gap 11.9 mmol/L (3-11); BUN 16 mg/dL (7-18); Bilirubin, Total 0.79 mg/dL (0.2-1.0); CO2 24.1 mmol/L (21.0-32.0); CREATININE 0.8 mg/dL (0.55-1.02); Calcium 9.3 mg/dL (8.5-10.1); Chloride 83 mmol/L (98-107); Estimated GFR 76.79 (mL/min/1.73m2); Glucose 127 mg/dL (74-106); Lipase 34 U/L (16-77); Magnesium 1.8 mg/dL (1.8-2.4); NT-proBNP 127 pg/mL (<300); TSH (W/Ref FT4) 2.22 uIU/mL (0.36-3.74); Total Protein 7.6 g/dL (6.4-8.2); Troponin I 9 ng/L (4-51)
[2024-02-15 13:09] LABS: ETHANOL BLOOD < 3.0 mg/dL (<10)
[2024-02-15 13:09] LABS: Acetaminophen < 2 ug/mL (10-30)
[2024-02-15 13:10] LABS: Potassium 2.8 mmol/L (3.5-5.1); Sodium 119 mmol/L (136-145)
--- OUTSIDE RECORDS SUMMARY | 2024-02-15 13:10 | XMS_ITS | Continuity of Care Document ---
Author Organization [facility] Address [address] [place] [address] Care Team Providers Care Spray Machine Tender Name Role Phone JBTHALIA MILO B Primary Care Physician [facility] [id number] Date(s): 11/27/23 - 11/27/23 [facility] [address] [place] [address]- [place] Discharge Disposition: Home Allergies, Adverse Reactions, Alerts Substance Reaction Severity Status amoxicillin Unknown Active morphine Unknown Active penicillins Unknown Active sulfa drugs Unknown Active Augmentin Moderate Active Effexor Unknown Active Bactrim Unknown Active OxyCONTIN Unknown Active Bees/Stinging Insects Unknown Active Crestor Unknown Active fenofibrate Unknown Active citalopram Unknown Active Zocor Unknown Active Voltaren Unknown Active Sulfabenzamide/Sulfacetamide/Sulfathiazole Nausea Moderate Active Lipitor Unknown Active Assessment and Plan [...] 11/15/14 Tu rded 1Result Comment: Unit: Unknown Felt Hooker: M.[employer] 2Result Comment: Unit: Unknown 3Result Comment: Unit: [...] Daily, # 30 cap, 11 Refill(s), Pharmacy: [facility] Start Date: 03/28/23 Status: Ordered EpiPen 2-Melchor 0.3 mg injectable [...] fever, # 80 tab, 1 Refill(s), Pharmacy: [facility] Start Date: 11/02/22 Status: Ordered lisdexamfetamine [...] 0 Refill(s) Start Date: 05/15/23 Status: Ordered Medrol Dosepak 4 mg oral tablet 1 packets, Oral, Daily, as directed on package labeling. Take with food. Stop Aleve while on this medication., # 21 tab, 0 Refill(s), Pharmacy: [facility] #93, 157.48, cm, 09/26/23 10:42:00 EDT, Height, 72.57, kg, 09/26/23 10:51:00 EDT, Weight Dosing Start Date: 10/04/23 Stop Date: 10/10/23 Status: Ordered naltrexone 50 mg oral tablet [...] Daily, # 90 cap, 0 Refill(s), Pharmacy: [facility] Start Date: 08/23/22 Status: Ordered traZODone 150 mg oral tablet 150 mg = 1 tab, Oral, every day at bedtime, # 30 tab, 0 Refill(s) Start Date: 02/15/23 Status: Ordered triamcinolone 0.025% topical cream 1 karina, Topical, Daily, # 15 g, 0 Refill(s), Pharmacy: [facility] Start Date: 08/07/22 Stop Date: 08/21/22 Status: Ordered Tylenol 8 Hour 650 mg oral tablet, extended release 650 mg = 1 tab, Oral, BID, PRN as needed for fever, # 50 tab, 1 Refill(s), Pharmacy: [facility] Start Date: 11/02/22 Status: Ordered Tylenol Extra Strength 500 mg oral tablet QID, as needed, 0 Refill(s) Start Date: 04/27/22 Status: Ordered Vagifem 10 mcg vaginal tablet 10 mcg = 1 tab, VAG, Mon//Fr at bedtime, # 36 tab, 3 Refill(s), Pharmacy: [facility] Start Date: 01/08/23 Status: Ordered Vagifem 10 mcg vaginal tablet 10 mcg = 1 tab, VAG, Mon/Fri, # 26 tab, 4 Refill(s), Pharmacy: [facility] Start Date: 10/25/22 Stop Date: [...] Completed Surgery 2 06/2020 Completed 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 abscess 3 10/2016 Completed [...] Physician Member Role: Nurse Practitioner Address: Address: [address] [place] [id number]- Name: MILO DANG Position: No Access Member Role: Primary Care Physician Address: Address: [address] [place] [phone] [place] [address] Name: VINEET SEQUEIRA MD Position: No Access Member Role: Informed Provider Address: Address: [address] [address]- Care Team Related Persons Name: MARIANO MORENO Name: DESEAN ESPARZA Address: Home [address] [place] [phone] [facility] Address: Mailing [address] [place] [phone] Name: DESEAN ESPARZA Address: [address] [phone] Address: Mailing [address] [place] [phone]
--- OUTSIDE RECORDS SUMMARY | 2024-02-15 13:10 | XMS_ITS | Continuity of Care Document ---
Author Organization [facility] Address [address] [place] [address] Care Team Providers Care Process Consultant Name Role Phone MILO DANG Primary Care Physician Encounter [facility] NBR [id number] Date(s): 11/16/23 - 11/16/[address] [address]- [place] Discharge Disposition: Home or Self Care Attending Physician: MRS. SAM DAWSON Admitting Physician: MRS. SAM DAWSON Referring Physician: MRS. SAM DAWSON Allergies, Adverse Reactions, Alerts Substance Reaction Severity [...] Plan Future Appointments Diagnostic Tests Pending * Creatinine Level 24 Hour Urine 11/16/23 * Calcium Level 24 Hour Urine 11/16/23 Immunizations Given and Recorded Vaccine Date Status [...] 11/15/14 Tu rded 1Result Comment: Unit: Unknown Educational Therapist: [employer] 2Result Comment: Unit: Unknown 3Result Comment: [...] Daily, # 30 cap, 11 Refill(s), Pharmacy: [facility] Start Date: 03/28/23 Status: Ordered EpiPen [...] fever, # 80 tab, 1 Refill(s), Pharmacy: [facility] Start Date: 11/02/22 Status: Ordered lisdexamfetamine [...] medication., # 21 tab, 0 Refill(s), Pharmacy: [facility], 157.48, cm, 09/26/23 10:42:00 EDT, Height, [...] Daily, # 90 cap, 0 Refill(s), Pharmacy: [facility] Start Date: 08/23/22 Status: Ordered traZODone [...] fever, # 50 tab, 1 Refill(s), Pharmacy: [facility] Start Date: 11/02/22 Status: Ordered Tylenol Extra Strength 500 mg oral tablet QID, as needed, 0 Refill(s) Start Date: 04/27/22 Status: Ordered Vagifem 10 mcg vaginal tablet 10 mcg = 1 tab, VAG, Mon/We/Fr at bedtime, # 36 tab, 3 Refill(s), Pharmacy: [facility] Start Date: 01/08/23 Status: Ordered Vagifem [...] Physician Member Role: Nurse Practitioner Address: Address: [address] [place] [address]- Name: MILO DANG Position: No Access Member Role: Primary Care Physician Address: Address: [address] [place] [address]- Name: VINEET SEQUEIRA MD Position: No Access Member Role: Informed Provider Address: Address: [address] [address]- Care Team Related Persons Name: MARIANO MORENO Name: DESEAN ESPARZA Address: Home [address] [place] [phone] Address: Mailing [address] [place] [phone] Name: DESEAN ESPARZA Address: Home [address] [place] [phone] [facility] Address: Mailing [address] [place] [phone]
--- OUTSIDE RECORDS SUMMARY | 2024-02-15 13:10 | XMS_ITS | Continuity of Care Document ---
Author Organization [facility] Address [address] [place] [address] Care Team Providers Care Perl Software Engineer Name Role Phone LAURENCE MILO B Primary Care Physician Encounter [facility] NBR [id number] Date(s): 12/24/23 - 12/24/23 [facility] [address] [place] [address]- [place] Discharge Disposition: Home or Self Care Attending Physician: Angeline Lama Referring Physician: KENN BRENNER Allergies, Adverse Reactions, Alerts Substance Reaction Severity Status amoxicillin Unknown Active morphine Unknown Active fenofibrate Unknown Active citalopram Unknown Active penicillins Unknown Active sulfa drugs Unknown Active Augmentin Moderate Active Effexor Unknown Active Bactrim Unknown Active Voltaren Unknown Active Sulfabenzamide/Sulfacetamide/Sulfathiazole Nausea Moderate Active Lipitor Unknown Active Bees/Stinging Insects Unknown Active OxyCONTIN Unknown Active Zocor Unknown Active Crestor Unknown Active Assessment and Plan [...] 11/15/14 Tu rded 1Result Comment: Unit: Unknown Fitting Room Supervisor: [employer] 2Result Comment: Unit: Unknown 3Result Comment: Unit: [...] Daily, # 30 cap, 11 Refill(s), Pharmacy: [facility] Start Date: 03/28/23 Status: Ordered EpiPen [...] fever, # 80 tab, 1 Refill(s), Pharmacy: [facility] Start Date: 11/02/22 Status: Ordered lisdexamfetamine [...] medication., # 21 tab, 0 Refill(s), Pharmacy: [facility] #[facility], 157.48, cm, 09/26/23 10:42:00 EDT, Height, [...] Daily, # 90 cap, 0 Refill(s), Pharmacy: [facility] Start Date: 08/23/22 Status: Ordered traZODone [...] fever, # 50 tab, 1 Refill(s), Pharmacy: [facility] Start Date: 11/02/22 Status: Ordered Tylenol Extra Strength 500 mg oral tablet QID, as needed, 0 Refill(s) Start Date: 04/27/22 Status: Ordered Vagifem 10 mcg vaginal tablet 10 mcg = 1 tab, VAG, Mon//Fr at bedtime, # 36 tab, 3 Refill(s), Pharmacy: [facility] Start Date: 01/08/23 Status: Ordered Vagifem [...] Member Role: Nurse Practitioner Address: Address: [address] [place] [id number]- Name: MILO DANG Position: No Access Member Role: Primary Care Physician Address: Address: [address] [place] [phone] [place] [address] Name: VINEET SEQUEIRA MD Position: No Access Member Role: Informed Provider Address: Address: [place] [address]- Care Team Related Persons Name: MARIANO MORENO Name: DESEAN ESPARZA Address: Home [address] [place] [phone] Address: Mailing [address] [place] [phone] Name: DESEAN ESPARZA Address: [address] [phone] [facility] Address: Mailing [address] [place] [phone]
--- OUTSIDE RECORDS SUMMARY | 2024-02-15 13:10 | XMS_ITS | Continuity of Care Document ---
Author Organization [facility] Address [address] [place] [address] Care Team Providers Care Electric Sealing Machine Operator Name Role Phone KENN BRENNER Primary Care Physician [phone] Encounter [facility] NBR [id number] Date(s): 07/16/23 - 07/16/[address] [address]- Encounter Diagnosis Urinary incontinence(Discharge Diagnosis) - 07/16/23 Unspecified urinary incontinence(Final) - Discharge Disposition: Home or Self Care Attending Physician: Sunita Dalal MD Admitting Physician: Sunita Dalal MD Allergies, Adverse Reactions, [...] 11/15/14 Tu rded 1Result Comment: Unit: Unknown 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 Film 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: [employer] 2Result Comment: Unit: Unknown 3Result Comment: [...] Daily, # 30 cap, 11 Refill(s), Pharmacy: [facility] Start Date: 03/28/23 Status: Ordered doxycycline [...] fever, # 80 tab, 1 Refill(s), Pharmacy: [facility] Start Date: 11/02/22 Status: Ordered lisdexamfetamine [...] Daily, # 90 cap, 0 Refill(s), Pharmacy: [facility] Start Date: 08/23/22 Status: Ordered traZODone 150 mg oral tablet 150 mg = 1 tab, Oral, every day at bedtime, # 30 tab, 0 Refill(s) Start Date: 02/15/23 Status: Ordered triamcinolone 0.025% topical cream 1 karina, Topical, Daily, # 15 g, 0 Refill(s), Pharmacy: [facility] Start Date: 08/07/22 Stop Date: 08/21/22 Status: Ordered Tylenol 8 Hour 650 mg oral tablet, extended release 650 mg = 1 tab, Oral, BID, PRN as needed for fever, # 50 tab, 1 Refill(s), Pharmacy: [facility] Start Date: 11/02/22 Status: Ordered Tylenol Extra Strength 500 mg oral tablet QID, as needed, 0 Refill(s) Start Date: 04/27/22 Status: Ordered Vagifem 10 mcg vaginal tablet 10 mcg = 1 tab, VAG, Mon//Fr at bedtime, # 36 tab, 3 Refill(s), Pharmacy: [facility] Start Date: 01/08/23 Status: Ordered Vagifem 10 mcg vaginal tablet 10 mcg = 1 tab, VAG, Sat/Sat, # 26 tab, 4 Refill(s), Pharmacy: [facility] Start Date: 10/25/22 Stop Date: [...] Completed Surgery 2 06/2020 Completed Drainage of security auditor y canal abscess 3 10/2016 Completed [...] - indicated multiple seactions in ECW Results Orders for Microbiology Reports Name Date Urine Culture 07/16/23 Microbiology Reports TEST:Urine Culture STATUS:Order in Progress BODY SITE: SOURCE:Urine, Clean Catch COLLECTED DATE/TIME:07/16/23 10:53 AM PRELIMINARY REPORT <10,000 cfu/ml Gram Positive Cocci Social History Social History Type Response Tobacco Never tobacco user T obacco Use:. Sex Female Patient Care team information Care Team Personnel Name: KENN BRENNER Position: No Access Member Role: Primary Care Physician Address: Address: [address] [place] [phone]- [place] Name: Yasmine Strickland APRN Position: Physician Member Role: Nurse Practitioner Address: Address: [address] [place] [address]- Care Team Related Persons Name: MIRYAM MORENOBRIAN Name: DESEAN ESPARZA Address: [address] [phone] Address: Mailing [address] [place] [phone] Name: DESEAN ESPARZA Address: [address] [phone] [facility] Address: Mailing [address] [place] [phone]
--- OUTSIDE RECORDS SUMMARY | 2024-02-15 13:11 | XMS_ITS | Continuity of Care Document ---
Author Organization [facility] Ambulatory Clinics Address [address] [place] [address] Care Team Providers Care Service Station Operator Name Role Phone KENN BRENNER Primary Care Physician Encounter [facility] [facility] NBR [id number] Date(s): 06/19/23 - 06/19/23 [facility] Ambulatory [facility]ics [address] [place] [address]- [place] Encounter Diagnosis Facet arthropathy, lumbar(Discharge Diagnosis) - 06/19/23 Lumbar spondylosis(Discharge Diagnosis) - 06/19/23 Discharge Disposition: Home or Self Care Attending Physician: Nell Daugherty, Allergies, Adverse Reactions, Alerts Substance Reaction Severity [...] 11/15/14 Tu rded 1Result Comment: Unit: Unknown Physical Therapy Asst: Prestiamoci Pasteur 2Result Comment: Unit: Unknown 3Result Comment: [...] Daily, # 30 cap, 11 Refill(s), Pharmacy: [facility] Start Date: 03/28/23 Status: Ordered doxycycline [...] # 80 tab, 1 Refill(s), Pharmacy: [facility] Start Date: 11/02/22 Status: Ordered lisdexamfetamine [...] Daily, # 90 cap, 0 Refill(s), Pharmacy: [facility] Start Date: 08/23/22 Status: Ordered traZODone [...] fever, # 50 tab, 1 Refill(s), Pharmacy: [facility] Start Date: 11/02/22 Status: Ordered Tylenol Extra Strength 500 mg oral tablet QID, as needed, 0 Refill(s) Start Date: 04/27/22 Status: Ordered Vagifem 10 mcg vaginal tablet 10 mcg = 1 tab, VAG, Mon//Fr at bedtime, # 36 tab, 3 Refill(s), Pharmacy: [facility] #[facility] Start Date: 01/08/23 Status: Ordered Vagifem [...] Completed Surgery 2 06/2020 Completed Drainage of software publisher y canal abscess 3 10/2016 Completed Procedure [...] to oldest [Reference Range]: 1 Temperature Tympanic [36.6-38.1 Deg C] 3 5.7 Deg C *LOW* (06/19/23 8:06 AM) Peripheral Pulse Rate [60-100 bpm] 70 bp m (06/19/23 8:06 AM) Respiratory Rate [12-24 br/min] 18 br/mi n (06/19/23 8:06 AM) Blood Pressure [90-140/60-90 mmHg] 170/7 7mmHg *HI* (06/19/23 8:06 AM) Mean Arterial Pressure, Cuff [70-110 mmH g] 108 mmHg (06/19/23 8:06 AM) Weight 72.57 kg (06/19/23 8:06 AM) Weight Measured (lbs) 159.989 lb (06/19/23 8:06 AM) Weight Dosing 72.570 kg (06/19/23 8:06 AM) Height 157.48 cm (06/19/23 8:06 AM) Height/Length Measured (inches) 62 inch (06/19/23 8:06 AM) BSA Measured 1.78 m2 (06/19/23 8:06 AM) Body Mass Index 29.26 kg/m2 (06/19/23 8:06 AM) Social History Social History Type Response Tobacco Never tobacco user T obacco Use:. Sex Female Patient Care team information Care Team Personnel Name: KENN BRENNER Position: No Access Member Role: Primary Care Physician Address: Address: [address] [place] [address] Name: Yasmine Strickland APRN Position: Physician Member Role: Nurse Practitioner Address: Address: [address] [place] [address] Care Team Related Persons Name: MARIANO MORENO Name: DESEAN ESPARZA Address: Home [address] [place] [phone] [facility] Address: Mailing [address] [place] [phone] Name: DESEAN ESPARZA Address: Home [address] [place] [phone] Address: Mailing [address] [place] [phone]
--- OUTSIDE RECORDS SUMMARY | 2024-02-15 13:11 | XMS_ITS | Continuity of Care Document ---
Author Organization [facility] Address [address] [place] [address] Care Team Providers Care Turn Out Name Role Phone MILO DANG Primary Care Physician Encounter [facility] NBR [id number] Date(s): 02/14/24 - 02/14/24 [facility] [address] [place], [place] [address] Discharge Disposition: Home or Self Care Attending Physician: VINEET SEQUEIRA MD Admitting Physician: VINEET SEQUEIRA MD Referring Physician: VINEET SEQUEIRA MD Allergies, Adverse Reactions, Alerts Substance Criticality Severity Reaction Reaction Severity Status amoxicillin Unable to assess criticality Unknown Active morphine Unable to assess criticality Unknown Active citalopram Unable to assess criticality Unknown Active Bactrim Unable to assess criticality Unknown Active Bees/Stinging Insects Unable to assess criticality Unknown Active fenofibrate Unable to assess criticality Unknown Active penicillins Unable to assess criticality Unknown Active sulfa drugs Unable to assess criticality Unknown Active Augmentin High criticality Moderate Act aide Effexor Unable to assess criticality Unknown Active Zocor Unable to assess criticality Unknown Active Voltaren Unable to assess criticality Unknown Active Sulfabenzamide/Sulfac etamide/Sulfathiazole High criticality Moderate Nausea Ac tive Lipitor Unable to assess criticality Unknown Active Crestor Unable to assess criticality Unknown Active OxyCONTIN Unable to assess criticality Unknown Active Assessment and Plan Future Appointments [...] 11/15/14 Tu rded 1Result Comment: Unit: Unknown Technology Officer: Posto7 Pasteur 2Result Comment: Unit: Unknown 3Result Comment: [...] Daily, # 30 cap, 11 Refill(s), Pharmacy: [facility] Start Date: 03/28/23 Status: Ordered EpiPen [...] fever, # 80 tab, 1 Refill(s), Pharmacy: [facility] Start Date: 11/02/22 Status: Ordered lisdexamfetamine [...] medication., # 21 tab, 0 Refill(s), Pharmacy: [facility], 157.48, cm, 09/26/23 10:42:00 EDT, Height, [...] Daily, # 90 cap, 0 Refill(s), Pharmacy: [facility] Start Date: 08/23/22 Status: Ordered traZODone [...] fever, # 50 tab, 1 Refill(s), Pharmacy: [facility] Start Date: 11/02/22 Status: Ordered Tylenol Extra Strength 500 mg oral tablet QID, as needed, 0 Refill(s) Start Date: 04/27/22 Status: Ordered Vagifem 10 mcg vaginal tablet 10 mcg = 1 tab, VAG, Mon//Fr at bedtime, # 36 tab, 3 Refill(s), Pharmacy: [facility] Start Date: 01/08/23 Status: Ordered Vagifem 10 mcg vaginal tablet 10 mcg = 1 tab, VAG, Mon/Fri, # 26 tab, 4 Refill(s), Pharmacy: [facility] 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 y canal abscess 3 10/2016 [...] in [facility] Results Laboratory List Name Date CBC w/ Diff 02/14/24 Comprehensive Metabolic Panel 02/14/24 Automated Diff 02/14/24 Most recent to oldest [Reference Range]: 1 WBC [4.8-10.8 K/mcL] 6.4 K/mcL (02/14/24 10:12 AM) RBC [4.20-5.40 Million/mcL] 4.11 Million /mcL *LOW* (02/14/24 10:12 AM) Neutro Auto [42.2-75.2 %] 72.0 % (02/14/24 10:12 AM) Lymph Auto [20.5-51.1 %] 17.9 % *LOW* (02/14/24 10:12 AM) Miller Auto [1.7-9.3 %] 8.7 % (02/14/24 10:12 AM) Basophil Auto [0.0-0.8 %] 0.6 % (02/14/24 10:12 AM) BUN [7-25 mg/dL] 15 mg/dL (02/14/24 10:12 AM) Glucose Level [70-109 mg/dL] 130 mg/dL *HI* (02/14/24 10:12 AM) Potassium Level [3.5-5.1 mmol/L] 3.2 mmo l/L *LOW* (02/14/24 10:12 AM) Baso Absolute [0.0-0.2 K/mcL] 0.0 K/mcL (02/14/24 10:12 AM) MCV [81.0-99.0 fL] 90.2 fL (02/14/24 10:12 AM) AST [13-39 IntlUnit/L] 26 IntlUnit/L (02/14/24 10:12 AM) ALT [7-52 IntlUnit/L] 19 IntlUnit/L (02/14/24 10:12 AM) MCHC [32.0-37.0 g/dL] 34.5 g/dL (02/14/24 10:12 AM) Osmolality [275-295 mOsm/kg] 256 mOsm/kg *LOW* (02/14/24 10:12 AM) Sodium Level [136-145 mmol/L] 126 mmol/L 1 *CRIT* (02/14/24 10:12 AM) Lymph Absolute [1.2-3.4 K/mcL] 1.1 K/mcL *LOW* (02/14/24 10:12 AM) Hct [37.0-47.0 %] 37.1 % (02/14/24 10:12 AM) Calcium Level [8.6-10.3 mg/dL] 10.0 mg/d L (02/14/24 10:12 AM) Miller Absolute [0.1-0.6 K/mcL] 0.6 K/mcL (02/14/24 10:12 AM) Albumin Level [3.5-5.7 g/dL] 4.7 g/dL (02/14/24 10:12 AM) Protein Total [6.4-8.9 g/dL] 7.5 g/dL (02/14/24 10:12 AM) MCH [27.0-31.0 pg] 31.2 pg *HI* (02/14/24 10:12 AM) Neutro Absolute [1.4-6.5 K/mcL] 4.6 K/mc L (02/14/24 10:12 AM) Bilirubin Total [0.3-1.0 mg/dL] 0.8 mg/d L (02/14/24 10:12 AM) Hgb [12.0-16.0 g/dL] 12.8 g/dL (02/14/24 10:12 AM) Alk Phos [34-104 IntlUnit/L] 51 IntlUnit /L (02/14/24 10:12 AM) MPV [7.4-10.4 fL] 6.3 fL *LOW* (02/14/24 10:12 AM) Platelets [130-400 K/mcL] 448 K/mcL *HI* (02/14/24 10:12 AM) CO2 [21-31 mmol/L] 27 mmol/L (02/14/24 10:12 AM) Eos Absolute [0.0-0.2 K/mcL] 0.1 K/mcL (02/14/24 10:12 AM) Chloride Level [98-107 mmol/L] 88 mmol/L *LOW* (02/14/24 10:12 AM) RDW-CV [11.5-14.5 %] 12.8 % (02/14/24 10:12 AM) A/G Ratio [1.0-2.5 g/dL] 1.7 g/dL (02/14/24 10:12 AM) BUN/Creat Ratio [8.0-20.0] 21.4 *HI* (02/14/24 10:12 AM) Globulin [2.3-3.5 g/dL] 2.8 g/dL (02/14/24 10:12 AM) Creatinine Level [0.60-1.20 mg/dL] 0.70 mg/dL (02/14/24 10:12 AM) Anion Gap [3.0-12.0] 11.0 (02/14/24 10:12 AM) Eos, Auto [0.00-3.00 %] 0.80 % (02/14/24 10:12 AM) eGFR CKD-EPI [>=60 mL/min/1.73 m2] 90 mL /min/1.73 m2 (02/14/24 10:12 AM) 1Result Comment: Critical Result S_NA of 126 Called to and read back by: JERICA BAILEY at: 02/14/2024 12:23:37 by:[email or web address] result called and verifed by repeat analysis Social History Social History Type Response Tobacco Never tobacco user T obacco Use:. Sex Female Sex Representation Female (finding) Patient Care team information Care Team Personnel Name: KEELY GOMEZ Position: No Access Member Role: Informed Provider Address: [address] Name: Yasmine Strickland APRN Position: Physician Member Role: Nurse Practitioner Address: [address] [place] [id number] Name: MILO DANG Position: No Access Member Role: Primary Care Physician Address: [address] [place] [phone] [place] [address] Care Team Related Persons Name: MARIANO MORENO Name: DESEAN ESPARZA Name: DESEAN ESPARZA Insurance Providers Guarantor name: SUNNY ESPARZA Health Plan Information #: 1 Payer: [place] [employer] Member Number: [id number] Policy Number: NA Health Plan Information #: 2 Payer: [place] [employer] Member Number: [id number] Policy Number: NA Health Plan Information #: 3 Payer: [place] [employer] Member Number: [id number] Policy Number: NA
--- OUTSIDE RECORDS SUMMARY | 2024-02-15 13:11 | XMS_ITS | Continuity of Care Document ---
Author Organization [facility] Ambulatory Clinics Address [address] [place] [address] Care Team Providers Care Armature Winder Helper Repair Name Role Phone KENN BRENNER Primary Care Physician [phone] [facility] [facility] NBR [id number] Date(s): 07/16/23 - 07/16/23 [facility] Ambulatory Clinics [address] [place] [address]- [place] Encounter Diagnosis Urinary incontinence(Discharge Diagnosis) - 07/16/23 Discharge Disposition: Home or Self Care Attending [...] 11/15/14 Tu rded 1Result Comment: Unit: Unknown Firewall Security Engineer: That{img} 2Result Comment: Unit: Unknown 3Result Comment: Unit: [...] Daily, # 30 cap, 11 Refill(s), Pharmacy: [facility] Start Date: 03/28/23 Status: Ordered doxycycline [...] # 80 tab, 1 Refill(s), Pharmacy: [facility] Start Date: 11/02/22 Status: Ordered lisdexamfetamine [...] Daily, # 90 cap, 0 Refill(s), Pharmacy: [facility] Start Date: 08/23/22 Status: Ordered traZODone [...] fever, # 50 tab, 1 Refill(s), Pharmacy: [facility] Start Date: 11/02/22 Status: Ordered Tylenol Extra Strength 500 mg oral tablet QID, as needed, 0 Refill(s) Start Date: 04/27/22 Status: Ordered Vagifem 10 mcg vaginal tablet 10 mcg = 1 tab, VAG, Mon//Fr at bedtime, # 36 tab, 3 Refill(s), Pharmacy: [facility] Start Date: 01/08/23 Status: Ordered Vagifem [...] Completed Surgery 2 06/2020 Completed Drainage of drivers license examiner y canal abscess 3 10/2016 Completed Procedure 4 11/2015 Completed Breast reduction 06/2014 Complete d Balloon sinuplasty 5 05/2014 Comp leted Total knee arthroplasty 03/03/12 C ompleted Hysterectomy 1991 Completed Appendectomy 1961 Completed Tonsillectomy 1961 Completed of child Completed section 6 Comple rlua 1Right shoulder arthroscopy w/significant intra and extra-articular [...] Results Laboratory List Name Date .Urinalysis POCT 07/16/23 Most recent to oldest [Reference Range]: 1 Method of Collect POC Clean Catch *NA* (07/16/23 10:51 AM) Specific [place], Ur POC 1.025 *NA* (07/16/23 10:51 AM) Specimen Color POC [Yellow] Yellow (07/16/23 10:51 AM) Glucose, Urine POC Negative mg/dL *NA* (07/16/23 10:51 AM) Bilirubin, Urine POC [Negative] Negative (07/16/23 10:51 AM) Ketones, Urine POC [Negative mg/dL] Nega tive mg/dL (07/16/23 10:51 AM) Blood, Urine POC [Negative] Negative (07/16/23 10:51 AM) pH, Urine POC 6.0 *NA* (07/16/23 10:51 AM) Protein, Urine POC [Negative mg/dL] Nega tive mg/dL (07/16/23 10:51 AM) Urobilinogen, Urine POC [0.2] 0.2 (07/16/23 10:51 AM) Nitrite, Urine POC [Negative] Negative (07/16/23 10:51 AM) Leuk Esterase, Urine POC [Negative] Trac e *ABN* (07/16/23 10:51 AM) Clarity, Urine POC [Clear] Clear (07/16/23 10:51 AM) Social History Social History Type Response Tobacco Never tobacco user T obacco Use:. Sex Female Patient Care team information Care Team Personnel Name: KENN BRENNER Position: No Access Member Role: Primary Care Physician Address: Address: [address] [place] [address] Name: Yasmine Strickland APRN Position: Physician Member Role: Nurse Practitioner Address: Address: [address] [place] [address] Care Team Related Persons Name: MARIANO MORENO Name: DESEAN ESPARZA Address: Home [address] [place] [phone] [facility] Address: Mailing [address] [place] [address] [phone] Name: DESEAN ESPARZA Address: Home [address] [place] [address] [phone] Address: Mailing [address] [place] [address] [phone]
--- OUTSIDE RECORDS SUMMARY | 2024-02-15 13:11 | XMS_ITS | Continuity of Care Document ---
Author Organization [facility] Ambulatory Clinics Address [address] [place] [address] Care Team Providers Care Consulting Sales Executive Name Role Phone KENN BRENNER Primary Care Physician [phone] Encounter [facility] NBR [id number] Date(s): 08/07/23 - 08/07/23 [facility] Ambulatory Clinics [address] [place] [address]- [place] Encounter Diagnosis Incomplete bladder emptying(Discharge Diagnosis) - 08/07/23 Discharge Disposition: Home or Self Care Attending [...] 11/15/14 Tu rded 1Result Comment: Unit: Unknown Life Scientists: [facility] [employer] 2Result Comment: Unit: Unknown 3Result Comment: [...] Daily, # 30 cap, 11 Refill(s), Pharmacy: [facility] Start Date: 03/28/23 Status: Ordered doxycycline hyclate 50 mg oral tablet 30 EA, 0 Refill(s), TAKE ONE TABLET BY MOUTH EVERY DAY, 0 Refill(s) Start Date: 02/15/23 Status: Ordered EpiPen 2-Melchro 0.3 mg injectable kit 0.3 mg =, [...] # 80 tab, 1 Refill(s), Pharmacy: [facility] Start Date: 11/02/22 Status: Ordered lisdexamfetamine [...] Daily, # 90 cap, 0 Refill(s), Pharmacy: [facility] Start Date: 08/23/22 Status: Ordered traZODone 150 mg oral tablet 150 mg = 1 tab, Oral, every day at bedtime, # 30 tab, 0 Refill(s) Start Date: 02/15/23 Status: Ordered triamcinolone 0.025% topical cream 1 karina, Topical, Daily, # 15 g, 0 Refill(s), Pharmacy: [facility] Start Date: 08/07/22 Stop Date: 08/21/22 Status: Ordered Tylenol 8 Hour 650 mg oral tablet, extended release 650 mg = 1 tab, Oral, BID, PRN as needed for fever, # 50 tab, 1 Refill(s), Pharmacy: [facility] Start Date: 11/02/22 Status: Ordered Tylenol Extra Strength 500 mg oral tablet QID, as needed, 0 Refill(s) Start Date: 04/27/22 Status: Ordered Vagifem 10 mcg vaginal tablet 10 mcg = 1 tab, VAG, Mon//Fr at bedtime, # 36 tab, 3 Refill(s), Pharmacy: [facility] Start Date: 01/08/23 Status: Ordered Vagifem 10 mcg vaginal tablet 10 mcg = 1 tab, VAG, Sat/Sat, # 26 tab, 4 Refill(s), Pharmacy: [facility] Start Date: 10/25/22 Stop Date: [...] 1 Temperature Tympanic [36.6-38.1 Deg C] 3 6.4 Deg C *LOW* (08/07/23 12:14 PM) Peripheral Pulse Rate [60-100 bpm] 65 bp m (08/07/23 12:14 PM) Respiratory Rate [12-24 br/min] 16 br/mi n (08/07/23 12:14 PM) Social History Social History Type Response Tobacco Never tobacco user T obacco Use:. Sex Female Patient Care team information Care Team Personnel Name: KENN BRENNER Position: No Access Member Role: Primary Care Physician Address: Address: [address] [place] [address]- [place] Name: Yasmine Strickland APRN Position: Physician Member Role: Nurse Practitioner Address: Address: [address] [place] [address]- Care Team Related Persons Name: MORENOMARIANO Name: DESEAN ESPARZA Address: Home [address] [place] [phone] Address: Mailing [address] [place] [address] [phone] Name: DESEAN ESPARZA Address: [address] [phone] [facility] Address: Mailing [address] [place] [address] [phone]
--- OUTSIDE RECORDS SUMMARY | 2024-02-15 13:12 | XMS_ITS | Continuity of Care Document ---
Author Organization [facility] Ambulatory Clinics Address [address] [place] [address] Care Team Providers Care Exterminator Name Role Phone KENN BRENNER Primary Care Physician Encounter [facility] NBR [id number] Date(s): 10/04/23 - 10/04/23 [facility] Ambulatory Clinics [address] [place] [address]- [place] Encounter Diagnosis Low back pain(Discharge Diagnosis) - 10/04/23 Discharge Disposition: Home Allergies, Adverse Reactions, Alerts [...] 11/15/14 Tu rded 1Result Comment: Unit: Unknown Programming Engineer: [employer] 2Result Comment: Unit: Unknown 3Result Comment: Unit: [...] Daily, # 30 cap, 11 Refill(s), Pharmacy: [facility] Start Date: 03/28/23 Status: Ordered EpiPen [...] fever, # 80 tab, 1 Refill(s), Pharmacy: [facility] Start Date: 11/02/22 Status: Ordered lisdexamfetamine [...] medication., # 21 tab, 0 Refill(s), Pharmacy: [facility], 157.48, cm, 09/26/23 10:42:00 EDT, Height, [...] Daily, # 90 cap, 0 Refill(s), Pharmacy: [facility] Start Date: 08/23/22 Status: Ordered traZODone [...] fever, # 50 tab, 1 Refill(s), Pharmacy: [facility] Start Date: 11/02/22 Status: Ordered Tylenol Extra Strength 500 mg oral tablet QID, as needed, 0 Refill(s) Start Date: 04/27/22 Status: Ordered Vagifem 10 mcg vaginal tablet 10 mcg = 1 tab, VAG, Mon// at bedtime, # 36 tab, 3 Refill(s), Pharmacy: [facility] Start Date: 01/08/23 Status: Ordered Vagifem [...] Completed Surgery 2 06/2020 Completed Drainage of senior internal auditor y canal abscess 3 10/2016 Completed [...] Role: Primary Care Physician Address: Address: [address] [place] [address]- Name: Yasmine Strickland APRN Position: Physician Member Role: Nurse Practitioner Address: Address: [address] [place] [address]- Care Team Related Persons Name: MARIANO MORENO Name: DESEAN ESPARZA Address: Home [address] [place] [phone] [facility] Address: Mailing [address] [place] [address] [phone] Name: DESEAN ESPARZA Address: [address] [phone] Address: Mailing [address] [place] [phone]
--- OUTSIDE RECORDS SUMMARY | 2024-02-15 13:12 | XMS_ITS | Continuity of Care Document ---
Author Organization [facility] Ambulatory Clinics Address [address] [place] [address] Care Team Providers Care Visual Training Aide Name Role Phone KENN BRENNER Primary Care Physician Encounter [facility] [facility] NBR [id number] Date(s): 09/26/23 - 09/26/23 [facility] Ambulatory Clinics [address] [place] [address] [place] Encounter Diagnosis Facet arthropathy, lumbar(Discharge Diagnosis) - 09/26/23 Lumbar spondylosis(Discharge Diagnosis) - 09/26/23 Discharge Disposition: Home or Self Care Attending Physician: Nell Daugherty DO Allergies, Adverse Reactions, Alerts Substance Reaction Severity Status amoxicillin Unknown Active morphine Unknown Active fenofibrate Unknown Active citalopram Unknown Active penicillins Unknown Active sulfa drugs Unknown Active Bactrim Unknown Active OxyCONTIN Unknown Active Bees/Stinging Insects Unknown Active Augmentin Moderate Active Effexor Unknown Active Zocor Unknown Active Voltaren Unknown Active Sulfabenzamide/Sulfacetamide/Sulfathiazole Nausea Moderate Active Lipitor Unknown Active Crestor Unknown Active Assessment and [...] 11/15/14 Tu rded 1Result Comment: Unit: Unknown Arrt Technologist: Mipso 2Result Comment: Unit: Unknown 3Result Comment: Unit: [...] Daily, # 30 cap, 11 Refill(s), Pharmacy: [facility] Start Date: 03/28/23 Status: Ordered EpiPen [...] fever, # 80 tab, 1 Refill(s), Pharmacy: [facility] Start Date: 11/02/22 Status: Ordered lisdexamfetamine [...] Daily, # 90 cap, 0 Refill(s), Pharmacy: [facility] Start Date: 08/23/22 Status: Ordered traZODone [...] fever, # 50 tab, 1 Refill(s), Pharmacy: [facility] Start Date: 11/02/22 Status: Ordered Tylenol Extra Strength 500 mg oral tablet QID, as needed, 0 Refill(s) Start Date: 04/27/22 Status: Ordered Vagifem 10 mcg vaginal tablet 10 mcg = 1 tab, VAG, Sat// at bedtime, # 36 tab, 3 Refill(s), Pharmacy: [facility] Start Date: 01/08/23 Status: Ordered Vagifem 10 mcg vaginal tablet 10 mcg = 1 tab, VAG, Sat/Sat, # 26 tab, 4 Refill(s), Pharmacy: [facility] [...] Completed Surgery 2 06/2020 Completed Drainage of 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 y canal abscess 3 10/2016 Completed [...] [36-38 Deg C ] 36.0 Deg C (09/26/23 10:42 AM) Peripheral Pulse Rate [60-100 bpm] 66 bp m (09/26/23 10:42 AM) Respiratory Rate [12-24 br/min] 18 br/mi n (09/26/23 10:42 AM) Blood Pressure [90-140/60-90 mmHg] 157/8 1mmHg *HI* (09/26/23 10:42 AM) Mean Arterial Pressure, Cuff [65-140 mmH g] 106 mmHg (09/26/23 10:42 AM) Weight 72.57 kg (09/26/23 10:42 AM) Weight Measured (lbs) 159.989 lb (09/26/23 10:42 AM) Weight Dosing 72.570 kg (09/26/23 10:42 AM) Brethren Body Weight Calculated 50.1 kg (09/26/23 10:42 AM) Height 157.48 cm (09/26/23 10:42 AM) Height/Length Measured (inches) 62 inch (09/26/23 10:42 AM) BSA Measured 1.78 m2 (09/26/23 10:42 AM) Body Mass Index 29.26 kg/m2 (09/26/23 10:42 AM) Social History Social History Type Response Tobacco Never tobacco user T obacco Use:. Sex Female Patient Care team information Care Team Personnel Name: KENN BRENNER Position: No Access Member Role: Primary Care Physician Address: Address: [address] [place] [address] Name: Yasmine Strickland APRN Position: Physician Member Role: Nurse Practitioner Address: Address: [address] [place] [address] Care Team Related Persons Name: MARIANO MORENO Name: DESEAN ESPARZA Address: Home [address] [place] [phone] Address: Mailing [address] [place] [address] [phone] Name: DESEAN ESPARZA Address: Home [address] [place] [phone] [facility] Address: Mailing [address] [place] [address] [phone]
--- OUTSIDE RECORDS SUMMARY | 2024-02-15 13:12 | XMS_ITS | Continuity of Care Document ---
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: [employer] 2Result Comment: Unit: Unknown 3Result Comment: Unit: [...] Daily, # 30 cap, 11 Refill(s), Pharmacy: [facility] Start Date: 03/28/23 Status: Ordered doxycycline [...] # 80 tab, 1 Refill(s), Pharmacy: [facility] Start Date: 11/02/22 Status: Ordered lisdexamfetamine [...] Daily, # 90 cap, 0 Refill(s), Pharmacy: [facility] Start Date: 08/23/22 Status: Ordered traZODone [...] fever, # 50 tab, 1 Refill(s), Pharmacy: [facility] Start Date: 11/02/22 Status: Ordered Tylenol Extra Strength 500 mg oral tablet QID, as needed, 0 Refill(s) Start Date: 04/27/22 Status: Ordered Vagifem 10 mcg vaginal tablet 10 mcg = 1 tab, VAG, Sat// at bedtime, # 36 tab, 3 Refill(s), Pharmacy: [facility] Start Date: 01/08/23 Status: Ordered Vagifem 10 mcg vaginal tablet 10 mcg = 1 tab, VAG, Sat/Sat, # 26 tab, 4 Refill(s), Pharmacy: [place] [...] Completed Surgery 2 06/2020 Completed Drainage of railroad auditor y canal abscess 3 10/2016 Completed [...] Results Laboratory List Name Date Lipid Panel 06/19/23 Thyroid Stimulating Hormone 06/19/23 Uric Acid 06/19/23 Most recent to oldest [Reference Range]: 1 Cholesterol Total [<=200 mg/dL] 213 mg/d L *HI* (06/19/23 9:36 AM) LDL 107.0 mg/dL 1 *NA* (06/19/23 9:36 AM) HDL [23-92 mg/dL] 64 mg/dL (06/19/23 9:36 AM) Chol/HDL 3.3 2 *NA* (06/19/23 9:36 AM) Triglycerides [<=150 mg/dL] 210 mg/dL *HI* (06/19/23 9:36 AM) Uric Acid [2.3-7.6 mg/dL] 6.7 mg/dL (06/19/23 9:36 AM) TSH [0.45-5.33 mcIntlUnit/mL] 2.97 mcInt lUnit/mL (06/19/23 9:36 AM) 1Interpretive Data: Optimal: Less than 100 [...] Role: Primary Care Physician Address: Address: [address] [place] [address] Name: Yasmine Strickland APRN Position: Physician Member Role: Nurse Practitioner Address: Address: [address] [place] [address] Care Team Related Persons Name: MARIANO MORENO Name: DESEAN ESPARZA Address: Home [address] [place] [phone] [facility] Address: Mailing [address] [place] [phone] Name: DESEAN ESPARZA Address: [address] [phone] Address: Mailing [address] [place] [address] [phone]
--- OUTSIDE RECORDS SUMMARY | 2024-02-15 13:12 | XMS_ITS | Continuity of Care Document ---
Author Organization [facility] Address [address] [place] [address] Care Team Providers Care Slab Lifting Engineer Name Role Phone MILO DANG Primary Care Physician Encounter [facility] NBR [id number] Date(s): 02/14/24 - 02/14/24 [facility] [address] [place] [place] [address] En[facility] Diagnosis Urinary incontinence(Discharge Diagnosis) - 02/14/24 Discharge Disposition: Home or Self Care Attending Physician: Sunita Dalal MD Admitting Physician: Sunita Dalal MD Allergies, Adverse Reactions, Alerts Substance Criticality Severity Reaction Reaction Severity Status amoxicillin Unable to assess criticality Unknown Active morphine Unable to assess criticality Unknown Active fenofibrate Unable to assess criticality Unknown Active citalopram Unable to assess criticality Unknown Active penicillins Unable to assess criticality Unknown Active sulfa drugs Unable to assess criticality Unknown Active Augmentin High criticality Moderate Act aide Effexor Unable to assess criticality Unknown Active Bactrim Unable to assess criticality Unknown Active Zocor Unable to assess criticality Unknown Active Voltaren Unable to assess criticality Unknown Active Sulfabenzamide/Sulfac etamide/Sulfathiazole High criticality Moderate Nausea Ac tive Lipitor Unable to assess criticality Unknown Active Crestor Unable to assess criticality Unknown Active OxyCONTIN Unable to assess criticality Unknown Active Bees/Stinging Insects Unable to assess criticality Unknown Active Assessment and Plan Future Appointments Diagnostic Tests Pending * Urine Culture 02/14/24 Immunizations Given and Recorded Vaccine Date Status [...] 11/15/14 Tu rded 1Result Comment: Unit: Unknown Mobile Sales Expert: Sanof[employer] Pasteur 2Result Comment: Unit: Unknown 3Result Comment: [...] Daily, # 30 cap, 11 Refill(s), Pharmacy: [facility] Start Date: 03/28/23 Status: Ordered EpiPen [...] fever, # 80 tab, 1 Refill(s), Pharmacy: [facility] Start Date: 11/02/22 Status: Ordered lisdexamfetamine [...] medication., # 21 tab, 0 Refill(s), Pharmacy: [facility], 157.48, cm, 09/26/23 10:42:00 EDT, Height, [...] Daily, # 90 cap, 0 Refill(s), Pharmacy: [facility] Start Date: 08/23/22 Status: Ordered [...] fever, # 50 tab, 1 Refill(s), Pharmacy: [facility] Start Date: 11/02/22 Status: Ordered Tylenol Extra Strength 500 mg oral tablet QID, as needed, 0 Refill(s) Start Date: 04/27/22 Status: Ordered Vagifem 10 mcg vaginal tablet 10 mcg = 1 tab, VAG, Mon//Fr at bedtime, # 36 tab, 3 Refill(s), Pharmacy: [facility] Start Date: 01/08/23 Status: Ordered [...] Completed Surgery 2 06/2020 Completed Drainage of field auditor y canal abscess 3 10/2016 Completed [...] in [facility] Results Laboratory List Name Date Urinalysis with Microscopic if Indicated 02/14/24 Most recent to oldest [Reference Range]: 1 UA Color [Yellow] Yellow (02/14/24 10:47 AM) UA Urobilinogen [0.2] 0.2 *NA* (02/14/24 10:47 AM) UA Bili [Negative] Negative *NA* (02/14/24 10:47 AM) UA Ketones >=80 mg/dL *NA* (02/14/24 10:47 AM) UA Leuk Est [Negative] Negative (02/14/24 10:47 AM) UA Nitrite [Negative] Negative *NA* (02/14/24 10:47 AM) UA Glucose [Negative] Negative *NA* (02/14/24 10:47 AM) UA Protein [Negative] Trace *NA* (02/14/24 10:47 AM) UA Blood [Negative] Negative (02/14/24 10:47 AM) UA Spec Grav [1.001-1.030] 1.025 (02/14/24 10:47 AM) UA pH [5.00-9.00] 6.00 (02/14/24 10:47 AM) UA Appear [Clear] Slightly Cloudy *ABN* (02/14/24 10:47 AM) Urine Srce Clean Catch (02/14/24 10:47 AM) Social History Social History Type Response Tobacco Never tobacco user T obacco Use:. Sex Female Sex Representation Female (finding) Patient Care team information Care Team Personnel Name: KEELY GOMEZ Position: No Access Member Role: Informed Provider Address: [address] Name: Yasmine Strickland APRN Position: Physician Member Role: Nurse Practitioner Address: [address] [place] [address] Name: MILO DANG Position: No Access Member Role: Primary Care Physician Address: [address] [place] [address] Care Team Related Persons Name: MARIANO MORENO Name: DESEAN ESPARZA Name: DESEAN ESPARZA Insurance Providers Guarantor name: [facility] Plan Information #: 1 Payer: Self Point Member Number: [id number] Policy Number: NA Health Plan Information #: 2 Payer: [employer] Member Number: [id number] Policy Number: NA Health Plan Information #: 3 Payer: [employer] Member Number: [id number] Policy Number: NA
--- OUTSIDE RECORDS SUMMARY | 2024-02-15 13:12 | XMS_ITS | Continuity of Care Document ---
Author Organization [facility] Address [address] [place] [address] Care Team Providers Care Sole Leather Cutting Machine Operator Name Role Phone KENN BRENNER Primary Care Physician Encounter [facility] NBR [id number] Date(s): 08/07/23 - 08/07/23 [facility] Amb[facility] [address] [place] [address] [place] Encounter Diagnosis Facet arthropathy, lumbar(Discharge Diagnosis) - 08/07/23 Lumbar spondylosis(Discharge Diagnosis) - 08/07/23 Discharge Disposition: Home or Self Care Attending Physician: Nell Daugherty DO Allergies, Adverse Reactions, Alerts Substance Reaction Severity Status amoxicillin Unknown Active morphine Unknown Active fenofibrate Unknown Active citalopram Unknown Active penicillins Unknown Active sulfa drugs Unknown Active Bactrim Unknown Active Voltaren Unknown Active Sulfabenzamide/Sulfacetamide/Sulfathiazole Nausea Moderate Active Lipitor Unknown Active Crestor Unknown Active OxyCONTIN Unknown Active Bees/Stinging Insects Unknown Active Zocor Unknown Active Augmentin Moderate Active Effexor Unknown Active Assessment and Plan [...] 11/15/14 Tu rded 1Result Comment: Unit: Unknown 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[employer] 2Result Comment: Unit: Unknown 3Result Comment: [...] Daily, # 30 cap, 11 Refill(s), Pharmacy: [facility] Start Date: 03/28/23 Status: Ordered doxycycline [...] # 80 tab, 1 Refill(s), Pharmacy: [facility] Start Date: 11/02/22 Status: Ordered lisdexamfetamine [...] Daily, # 90 cap, 0 Refill(s), Pharmacy: [facility] Start Date: 08/23/22 Status: Ordered traZODone [...] fever, # 50 tab, 1 Refill(s), Pharmacy: [facility] Start Date: 11/02/22 Status: Ordered Tylenol Extra Strength 500 mg oral tablet QID, as needed, 0 Refill(s) Start Date: 04/27/22 Status: Ordered Vagifem 10 mcg vaginal tablet 10 mcg = 1 tab, VAG, Mon//Fr at bedtime, # 36 tab, 3 Refill(s), Pharmacy: [facility] Start Date: 01/08/23 Status: Ordered Vagifem [...] Surgery 2 06/2020 Completed Drainage of senior it auditor y canal abscess 3 10/2016 Completed [...] Deg C] 3 5.7 Deg C *LOW* (08/07/23 8:23 AM) Peripheral Pulse Rate [60-100 bpm] 63 bp m (08/07/23 8:23 AM) Respiratory Rate [12-24 br/min] 16 br/mi n (08/07/23 8:23 AM) Blood Pressure [90-140/60-90 mmHg] 146/7 4mmHg *HI* (08/07/23 8:23 AM) Mean Arterial Pressure, Cuff [65-140 mmH g] 98 mmHg (08/07/23 8:23 AM) Weight 74.2 kg (08/07/23 8:23 AM) Weight Measured (lbs) 163.583 lb (08/07/23 8:23 AM) Weight Dosing 74.200 kg (08/07/23 8:23 AM) [place] Body Weight Calculated 49.665 kg (08/07/23 8:23 AM) Height 157 cm (08/07/23 8:23 AM) Height/Length Measured (inches) 61.81 in (08/07/23 8:23 AM) BSA Measured 1.8 m2 (08/07/23 8:23 AM) Body Mass Index 30.1 kg/m2 (08/07/23 8:23 AM) Social History Social History Type Response Tobacco Never tobacco user T obacco Use:. Sex Female Patient Care team information Care Team Personnel Name: KENN BRENNER Position: No Access Member Role: Primary Care Physician Address: Address: [address] [place] [address] Name: Yasmine Strickland APRN Position: Physician Member Role: Nurse Practitioner Address: Address: [address] [place] [address] Care Team Related Persons Name: MARIANO MORENO Name: DESEAN ESPARZA Address: Home [address] [place] [phone] Address: Mailing [address] [place] [phone] Name: DESEAN ESPARZA Address: Home [address] [place] [address] [phone] [facility] Address: Mailing [address] [place] [phone]
--- OUTSIDE RECORDS SUMMARY | 2024-02-15 13:13 | XMS_ITS | Continuity of Care Document ---
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[employer] ([employer]) 2Result Comment: Unit: Unknown 3Result Comment: Unit: [...] Daily, # 30 cap, 11 Refill(s), Pharmacy: [facility] Start Date: 03/28/23 Status: Ordered EpiPen [...] fever, # 80 tab, 1 Refill(s), Pharmacy: [facility] Start Date: 11/02/22 Status: Ordered lisdexamfetamine [...] medication., # 21 tab, 0 Refill(s), Pharmacy: [facility], 157.48, cm, 09/26/23 10:42:00 EDT, Height, [...] Daily, # 90 cap, 0 Refill(s), Pharmacy: [facility] Start Date: 08/23/22 Status: Ordered traZODone 150 mg oral tablet 150 mg = 1 tab, Oral, every day at bedtime, # 30 tab, 0 Refill(s) Start Date: 02/15/23 Status: Ordered triamcinolone 0.025% topical cream 1 karina, Topical, Daily, # 15 g, 0 Refill(s), Pharmacy: [facility] Start Date: 08/07/22 Stop Date: 08/21/22 Status: Ordered Tylenol 8 Hour 650 mg oral tablet, extended release 650 mg = 1 tab, Oral, BID, PRN as needed for fever, # 50 tab, 1 Refill(s), Pharmacy: [facility] Start Date: 11/02/22 Status: Ordered Tylenol Extra Strength 500 mg oral tablet QID, as needed, 0 Refill(s) Start Date: 04/27/22 Status: Ordered Vagifem 10 mcg vaginal tablet 10 mcg = 1 tab, VAG, Mon//Fr at bedtime, # 36 tab, 3 Refill(s), Pharmacy: [facility] Start Date: 01/08/23 Status: Ordered Vagifem 10 mcg vaginal tablet 10 mcg = 1 tab, VAG, Mon/Sat, # 26 tab, 4 Refill(s), Pharmacy: [facility] Start Date: 10/25/22 Stop Date: [...] Completed Surgery 2 06/2020 Completed Drainage of internal auditor y canal abscess 3 10/2016 [...] in [facility] Results Laboratory List Name Date Misc Lab order 11/13/23 Most recent to oldest [Reference Range]: 1 Miscellaneous Lab Test See Comments *NA* (11/13/23 8:59 AM) Social History Social History Type Response Tobacco Never tobacco user T obacco Use:. Sex Female Patient Care team information Care Team Personnel Name: Yasmine Strickland APRN Position: Physician Member Role: Nurse Practitioner Address: Address: [address] [place] [address]- Name: MILO DANG Position: No Access Member Role: Primary Care Physician Address: Address: [address] [place] [address]- Name: VINEET SEQUEIRA MD Position: No Access Member Role: Informed Provider Address: Address: [address] [address] Care Team Related Persons Name: MARIANO MORENO Name: DESEAN ESPARZA Address: Home [address] [place] [phone] [facility] Address: Mailing [address] [place] [address] [phone] Name: DESEAN ESPARZA Address: Home [address] [place] [phone] Address: Mailing [address] [place] [address] [phone]
--- OUTSIDE RECORDS SUMMARY | 2024-02-15 13:13 | XMS_ITS | Continuity of Care Document ---
Author Organization [facility] Ambulatory Clinics Address [address] [place] [address] Care Team Providers Care Electronic Communications Technician Name Role Phone KENN BRENNER Primary Care Physician [phone] Encounter [facility]BR [id number] Date(s): 07/25/23 - 07/25/23 [facility] Amb[facility] [address] [place] [address] us Encounter Diagnosis Urinary incontinence(Discharge Diagnosis) - 07/25/23 Urinary urgency(Discharge Diagnosis) - 07/25/23 Discharge Disposition: Home or Self Care Attending Physician: Sunita Dalal MD Referring Physician: KENN BRENNER Allergies, Adverse Reactions, Alerts Substance Reaction Severity Status amoxicillin Unknown Active morphine Unknown Active fenofibrate Unknown Active citalopram Unknown Active penicillins Unknown Active Augmentin Moderate Active Bactrim Unknown Active Sulfabenzamide/Sulfacetamide/Sulfathiazole Nausea Moderate Active Lipitor Unknown Active Crestor Unknown Active Bees/Stinging Insects Unknown Active OxyCONTIN Unknown Active sulfa drugs Unknown Active Effexor Unknown Active Zocor Unknown Active Voltaren Unknown Active Assessment and Plan Extracted from: Title:Urology Office Procedure Note Author:Kerry Dalal MD Date:07/25/23 Urinary incontinence??R32 ASSESSMENT:?? Mrs. Luong is a pleasant 73 year-old lady with bothersome urinary urgency and occasional UUI who has failed oral medical therapy.?? She underwent uncomplicated intradetrusor Botox injection today. PLAN: 1. Follow up in 2 weeks for PVR check. ?? Given levoFLOXacin, 500 mg, Oral. 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[employer] 2Result Comment: Unit: Unknown 3Result Comment: [...] Daily, # 30 cap, 11 Refill(s), Pharmacy: [facility] Start Date: 03/28/23 Status: Ordered doxycycline [...] fever, # 80 tab, 1 Refill(s), Pharmacy: [facility] Start Date: 11/02/22 Status: Ordered lisdexamfetamine [...] Daily, # 90 cap, 0 Refill(s), Pharmacy: [facility] Start Date: 08/23/22 Status: Ordered traZODone [...] fever, # 50 tab, 1 Refill(s), Pharmacy: [facility] Start Date: 11/02/22 Status: Ordered Tylenol Extra Strength 500 mg oral tablet QID, as needed, 0 Refill(s) Start Date: 04/27/22 Status: Ordered Vagifem 10 mcg vaginal tablet 10 mcg = 1 tab, VAG, Mon//Fr at bedtime, # 36 tab, 3 Refill(s), Pharmacy: [facility] Start Date: 01/08/23 Status: Ordered Vagifem [...] Results Laboratory List Name Date .Urinalysis POCT 07/25/23 Most recent to oldest [Reference Range]: 1 Method of Collect POC Clean Catch *NA* (07/25/23 12:06 PM) Specific [place], Ur POC 1.015 *NA* (07/25/23 12:06 PM) Specimen Color POC [Yellow] Yellow (07/25/23 12:06 PM) Glucose, Urine POC Negative mg/dL *NA* (07/25/23 12:06 PM) Bilirubin, Urine POC [Negative] Negative (07/25/23 12:06 PM) Ketones, Urine POC [Negative mg/dL] Nega tive mg/dL (07/25/23 12:06 PM) Blood, Urine POC [Negative] Negative (07/25/23 12:06 PM) pH, Urine POC 7.0 *NA* (07/25/23 12: PM) Protein, Urine POC [Negative mg/dL] Nega tive mg/dL (07/25/23 12:06 PM) Urobilinogen, Urine POC [0.2] 0.2 (07/25/23 12: PM) Nitrite, Urine POC [Negative] Negative (07/25/23 12:06 PM) Leuk Esterase, Urine POC [Negative] Nega tive (07/25/23 12:06 PM) Clarity, Urine POC [Clear] Clear (07/25/23 12:06 PM) Vital Signs Most recent to oldest [Reference Range]: 1 Temperature Temporal Artery [36-38 Deg C ] 35.9 Deg C *LOW* (07/25/23 10:20 AM) Peripheral Pulse Rate [60-100 bpm] 68 bp m (07/25/23 10:20 AM) Blood Pressure [90-140/60-90 mmHg] 142/7 8mmHg *HI* (07/25/23 10:20 AM) Mean Arterial Pressure, Cuff [70-110 mmH g] 99 mmHg (07/25/23 10:20 AM) Weight 71.67 kg (07/25/23 10:20 AM) Weight Measured (lbs) 158.005 lb (07/25/23 10:20 AM) Weight Dosing 71.670 kg (07/25/23 10:20 AM) [place] Body Weight Calculated 50.1 kg (07/25/23 10:20 AM) Height 157.48 cm (07/25/23 10:20 AM) Height/Length Measured (inches) 62 inch (07/25/23 10:20 AM) BSA Measured 1.77 m2 (07/25/23 10:20 AM) Body Mass Index 28.9 kg/m2 (07/25/23 10:20 AM) Social History Social History Type Response Tobacco Never tobacco user T obacco Use:. Sex Female Physician Outpatient Note * Sunita Dalal MD: PERFORM Event Display: Office Clinic Note Physician Authored Date: [id number] SUNNY LUONG :1950 Age:73 years Sex:Female Visit Date:07/25/2023 Primary Care Physician: KENN BRENNER Chief Complaint bladder botox History of Present Illness Mrs. Luong is a pleasant 73 year-old lady with bothersome urinary urgency and UUI that has been refractory of oral medication.?? She presents today for intradetrusor Botox injections. Physical Exam Vitals & Measurements T:??35.9?C ??(Temporal Artery)?? HR:??68??(Peripheral)?? BP:??142/78?? SpO2:??97%?? HT:??157.48??cm?? WT:??71.67??kg?? BMI:??28.9?? BSA:??1.77?? Procedure ?The patient was placed in the dorsal lithotomy position, and was prepped and draped in standard sterile fashion. A 14 Fr catheter was inserted into the bladder per urethra, and ??the balloon was inflated to 10 mL. ?? A bladder instillation consisting of 50 mL lidocaine 1% and 10 mL sodium bicarbonate 8.4% was instilled into the bladder. The anesthetic cocktail was left to dwell for 20 minutes. Once the dwell-time was complete, the bladder was drained and irrigated with sterile saline prior toinjection. ?? The injection needle was primed with approximately 1 mL of reconstituted Botox prior to the injection to remove any air. ?? A flexible cystoscope was gently inserted into the urinary bladder per urethra. The trigone was identified and evaluated. Next, we identified 10 template injection sites within the bladder. The bladder was only distended to 100 mL volume to ensure adequate muscle wall thickness to prevent needle penetration beyond the muscle wall. The bladder was instilled with enough saline to achieve adequate visualization. Careful injections were undertaken for a total of 10 injections. ??1.0 ??mL volume was delivered at each site carefully into the muscle without excessive bleb form ation submucosally, for a total of 100 units. ? The needle was inserted approximately 2 mm intothe detrusor muscle. Injections were spaced approximately 1 cm apart.? The patient tolerated the procedure well and remained stable throughout. ?? Assessment/Plan Urinary incontinence??R32 ASSESSMENT:?? Mrs. Luong is a pleasant 73 year-old lady with bothersome urinary urgency and occasional UUI who has failed oral medical therapy.?? She underwent uncomplicated intradetrusor Botox injection today. PLAN: 1. Follow up in 2 weeks for PVR check. Medications and Immunizations This Visit Given levoFLOXacin, 500 mg, Oral. For: Urinary incontinence Problem List/Past Medical History Ongoing Allergic rhinitis [...] tablet, 5 mg= 1 tab, Oral, Daily desvenlafaxine (as succinate) 25 mg oral tablet, extended release Detrol LA 4 mg oral capsule, extended release, 4 mg= 1 cap, Oral, Daily, 11 refills doxycycline hyclate 50 mg oral tablet EpiPen 2-Melchor 0.3 mg injectable kit, 0.3 mg, As Directed, PRN ergocalciferol 1.25 mg (50,000 intl units) oral capsule Flonase, Nasal, PRN ibuprofen 100 mg oral tablet, 200 mg= 2 tab, Oral, every 6 hr, PRN, 1 refills Kenalog-40, 40 mg, Intra-articular, Once lisdexamfetamine 10 mg oral capsule lisdexamfetamine 20 mg oral capsule lurasidone 20 mg oral tablet naltrexone 50 mg oral tablet Nexletol 180 mg oral tablet, 180 mg= 1 tab, Oral, every other day pregabalin 50 mg oral capsule Singulair, 10 mg, Oral, Daily Tirosint 50 mcg (0.05 mg) oral capsule, 50 mcg= 1 cap, Oral, Daily traZODone 150 mg oral tablet, 150 mg= 1 tab, Oral, every night at bedtime triamcinolone 0.025% topical cream, 1 karina, Topical, Daily Tylenol 8 Hour 650 mg oral tablet, extended release, 650 mg= 1 tab, Oral, BID, PRN, 1 refills Tylenol Extra Strength 500 mg oral tablet, QID Vagifem 10 mcg vaginal tablet, 10 mcg= 1 tab, Vaginal, Mon//Fr at bedtime, 3 refills Vagifem 10 mcg vaginal tablet, 10 mcg= 1 tab, Vaginal, Mon/Fri, 4 refills Vascepa 1 g oral [...] adult/adol 11/27/2021 Recorded Comments : Unit: Unknown 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 SARS-CoV-2 (COVID-19) mRNA-[id number] vaccine 09/20/2021 [...] Date/Time Method of Collect POC Clean Catch 07/25/2023 12:06 EST Specimen Color POC Yellow 07/25/2023 12:06 EST Clarity, Urine POC Clear 07/25/2023 12:06 EST Glucose, Urine POC Negative 07/25/2023 12:06 EST Bilirubin, Urine POC Negative 07/25/2023 12:06 EST Ketones, Urine POC Negative 07/25/2023 12:06 EST Specific [place], Ur POC 1.015 07/25/2023 12:06 EST pH, Urine POC 7.0 07/25/2023 12:06 EST Protein, Urine POC Negative 07/25/2023 12:06 EST Urobilinogen, Urine POC 0.2 07/25/2023 12:06 EST Nitrite, Urine POC Negative 07/25/2023 12:06 EST Blood, Urine POC Negative 07/25/2023 12:06 EST Leuk Esterase, Urine POC Negative 07/25/2023 12:06 EST Electronically Signed on 07/25/23 12:17 PM Sunita Dalal MD Patient Care team information Care Team Personnel Name: KENN BRENNER Position: No Access Member Role: Primary Care Physician Address: Address: [address] [place] [address] Name: Yasmine Strickland APRN Position: Physician Member Role: Nurse Practitioner Address: Address: [address] [place] [address] Care Team Related Persons Name: MARIANO MORENO Name: DESEAN LUONG Address: Home [address] [place] [phone] [facility] Address: Mailing [address] [place] [address] [phone] Name: DESEAN LUONG Address: [address] [phone] Address: Mailing [address] [place] [phone]
--- OUTSIDE RECORDS SUMMARY | 2024-02-15 13:13 | XMS_ITS | Continuity of Care Document ---
Author Organization [facility] Address [address] [place] [address] Care Team Providers Care Mixing Machine Feeder Name Role Phone LAURENCE MILO B Primary Care Physician Encounter [facility] NBR [id number] Date(s): 11/13/23 - 11/13/[address] [address]- [place] Encounter Diagnosis Abnormal results of thyroid function studies(Final) - Discharge Disposition: Home or Self Care Attending Physician: VINEET SEQUEIRA MD Admitting Physician: VINEET SEQUEIRA MD Referring Physician: VINEET SEQUEIRA MD Allergies, Adverse Reactions, Alerts Substance Reaction Severity Status amoxicillin Unknown Active morphine Unknown Active fenofibrate Unknown Active citalopram Unknown Active penicillins Unknown Active sulfa drugs Unknown Active Augmentin Moderate Active Bactrim Unknown Active Zocor Unknown Active Voltaren Unknown Active Lipitor Unknown Active OxyCONTIN Unknown Active Bees/Stinging Insects Unknown Active Crestor Unknown Active Effexor Unknown Active Sulfabenzamide/Sulfacetamide/Sulfathiazole Nausea [...] 11/15/14 Tu rded 1Result Comment: Unit: Unknown 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: [employer] 2Result Comment: Unit: Unknown 3Result Comment: [...] Daily, # 30 cap, 11 Refill(s), Pharmacy: [facility] Start Date: 03/28/23 Status: Ordered EpiPen [...] fever, # 80 tab, 1 Refill(s), Pharmacy: [facility] Start Date: 11/02/22 Status: Ordered lisdexamfetamine [...] medication., # 21 tab, 0 Refill(s), Pharmacy: [facility] #93, 157.48, cm, 09/26/23 10:42:00 EDT, Height, [...] Daily, # 90 cap, 0 Refill(s), Pharmacy: [facility] Start Date: 08/23/22 Status: Ordered traZODone [...] fever, # 50 tab, 1 Refill(s), Pharmacy: [facility] Start Date: 11/02/22 Status: Ordered Tylenol Extra Strength 500 mg oral tablet QID, as needed, 0 Refill(s) Start Date: 04/27/22 Status: Ordered Vagifem 10 mcg vaginal tablet 10 mcg = 1 tab, VAG, Mon/We/Fr at bedtime, # 36 tab, 3 Refill(s), Pharmacy: [facility] Start Date: 01/08/23 Status: Ordered Vagifem 10 mcg vaginal tablet 10 mcg = 1 tab, VAG, Mon/Fri, # 26 tab, 4 Refill(s), Pharmacy: [facility] [...] Completed Surgery 2 06/2020 Completed Drainage of energy auditor y canal abscess 3 10/2016 [...] Exam Date Time Procedure Performing Provider Status 11/13/23 10:01 AM US Thyroid1 Maillet, Fabiano; Auth (Ve rified) Notes: (US Thyroid1) Reason For Exam: ELEVATED THYROID ABS US Thyroid EXAM DESCRIPTION: US Thyroid 11/13/2023 INDICATION: ELEVATED THYROID ABS TECHNIQUE: Rizzo scale and color doppler ultrasound of the thyroid. Static and cine clip images were obtained COMPARISON: None FINDINGS: Right thyroid lobe measures 3.6 x 1.2 x 1.2 cm and left thyroid lobe measures 3.7 x 1.1 x 0.9 cm. Isthmus measures 4 mm in AP dimension. Ovoid nodule involving the upper pole of the right thyroid lobe measuring 6 x 6 x 6 mm. COMPOSITION: solid/almost completely solid = 2 ECHOGENICITY: hyperechoic/Isoechoic = 1 SHAPE: wider than tall = 0 MARGIN: ill-defined = 0 ECHOGENIC FOCI (Choose All That Apply): none or large comet-tail artifacts = 0 Macrocalcifications = No = 0 Peripheral/rim calcifications = No = 0 Punctate echogenic foci = No = 0 ACR TI-RADS risk category: TR3 (3 points). This is mildly suspicious by TR criteria and is below size threshold for follow-up recommendations No additional thyroid nodule identified by ultrasound currently. IMPRESSION: Small solid nodule in the upper pole of the right thyroid lobe measuring 6 x 6 mm which is mildly suspicious by TR criteria. This nodule is below size threshold for follow-up recommendations No additional thyroid nodule identified by ultrasound currently. JOB #: [id number] Final Signed by: Carlos Martinez MD Signed (Electronic Signature): 11/13/2023 10:16 am Social History Social History Type Response Tobacco Never tobacco user T obacco Use:. Sex Female Patient Care team information Care Team Personnel Name: Yasmine Strickland APRN Position: Physician Member Role: Nurse Practitioner Address: Address: [address] [place] [id number]- Name: MILO DANG Position: No Access Member Role: Primary Care Physician Address: Address: [address] [place] [id number]- Name: VINEET SEQUEIRA MD Position: No Access Member Role: Informed Provider Address: Address: [place] [address]- Care Team Related Persons Name: MARIANO MORENO Name: DESEAN ESPARZA Address: Home [address] [place] [phone] Address: Mailing [address] [place] [phone] Name: DESEAN ESPARZA Address: Home [address] [place], [place] [address]Em[place] [phone] [facility] Address: Mailing [facility] DANY MDEmeli [place], [place] [id number]
--- OUTSIDE RECORDS SUMMARY | 2024-02-15 13:13 | XMS_ITS | Continuity of Care Document ---
Author Organization 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[employer]ur 2Result Comment: Unit: Unknown 3Result Comment: [...] Daily, # 30 cap, 11 Refill(s), Pharmacy: [facility] Start Date: 03/28/23 Status: Ordered EpiPen [...] fever, # 80 tab, 1 Refill(s), Pharmacy: [facility] #[facility] Start Date: 11/02/22 Status: Ordered [...] medication., # 21 tab, 0 Refill(s), Pharmacy: [facility] #93, 157.48, cm, 09/26/23 10:42:00 EDT, [...] Daily, # 90 cap, 0 Refill(s), Pharmacy: [facility] #[facility] Start Date: 08/23/22 Status: Ordered [...] fever, # 50 tab, 1 Refill(s), Pharmacy: [facility] #[facility] Start Date: 11/02/22 Status: Ordered Tylenol Extra Strength 500 mg oral tablet QID, as needed, 0 Refill(s) Start Date: 04/27/22 Status: Ordered Vagifem 10 mcg vaginal tablet 10 mcg = 1 tab, VAG, Mon/We/Fr at bedtime, # 36 tab, 3 Refill(s), Pharmacy: [facility] #93 Start Date: 01/08/23 Status: Ordered Vagifem 10 mcg vaginal tablet 10 mcg = 1 tab, VAG, Mon/Fri, # 26 tab, 4 Refill(s), [facility]acy: [facility] [...] Completed Surgery 2 06/2020 Completed Drainage of commission auditor y canal abscess 3 10/2016 Completed [...] in [facility] Results Laboratory List Name Date Albumin Level 11/13/23 Calcium Level Total 11/13/23 PTH Intact 11/13/23 Vitamin D 25 Hydroxy Level 11/13/23 Most recent to oldest [Reference Range]: 1 Vitamin D 25 OH [30.0-100.0 ng/mL] 35.0 ng/mL 1 (11/13/23 8:50 AM) Calcium Level [8.6-10.3 mg/dL] 10.4 mg/d L *HI* (11/13/23 8:50 AM) Albumin Level [3.5-5.7 g/dL] 4.7 g/dL (11/13/23 8:50 AM) Parathyroid Hormone, Intact [12.0-88.0 p g/mL] 40.4 pg/mL (11/13/23 8:50 AM) 1Interpretive Data: VIT D STATUS: RANGE: Deficient [...] Member Role: Nurse Practitioner Address: Address: [address] [place] [address] Name: MILO DANG Position: No Access Member Role: Primary Care Physician Address: Address: [address] [place] [address] Name: VINEET SEQUEIRA MD Position: No Access Member Role: Informed Provider Address: [place] [facility] [address] Care Team Related Persons Name: MARIANO MORENO Name: DESEAN ESPARZA Address: Home [address] [place] [phone] Address: Mailing [address] [place] [phone] Name: DESEAN ESPARZA Address: Home [address] [place] [phone] [facility] Address: Mailing [address] [place] [phone]
--- OUTSIDE RECORDS SUMMARY | 2024-02-15 13:13 | XMS_ITS | Continuity of Care Document ---
Author Organization [facility] Ambulatory Clinics Address [address] [place] [address] Care Team Providers Care Imaging Aide Name Role Phone MILO DANG Primary Care Physician Encounter [facility] NBR [id number] Date(s): 02/14/24 - 02/14/24 [facility] Ambulatory Clinics [address] [place], [place] [address] Encounter Diagnosis Urinary incontinence(Discharge Diagnosis) - 02/14/24 Discharge Disposition: Home or Self Care Allergies, Adverse Reactions, Alerts Substance Criticality Severity Reaction Reaction Severity Status amoxicillin Unable to assess criticality Unknown Active morphine Unable to assess criticality Unknown Active fenofibrate Unable to assess criticality Unknown Active citalopram Unable to assess criticality Unknown Active Bactrim Unable to assess criticality Unknown Active Zocor Unable to assess criticality Unknown Active Bees/Stinging Insects Unable to assess criticality Unknown Active OxyCONTIN Unable to assess criticality Unknown Active penicillins Unable to assess criticality Unknown Active sulfa drugs Unable to assess criticality Unknown Active Augmentin High criticality Moderate Act aide Effexor Unable to assess criticality Unknown Active Voltaren Unable to assess criticality Unknown Active Sulfabenzamide/Sulfac etamide/Sulfathiazole High criticality Moderate Nausea Ac tive Lipitor Unable to assess criticality Unknown Active Crestor Unable to assess criticality Unknown Active Assessment and Plan Future Appointments Immunizations Given and Recorded Vaccine Date Status Refusal Reason SARS-CoV-2 (COVID-19) mRNA-1273(6y+ biva 10/26/22 Given tetanus/diphth/pertuss (Tdap) adult/adol 1 11/27/21 Recorded [...] 11/15/14 Tu rded 1Result Comment: Unit: Unknown 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 2Result Comment: Unit: Unknown 3Result Comment: [...] Daily, # 30 cap, 11 Refill(s), Pharmacy: [facility] Start Date: 03/28/23 Status: Ordered EpiPen [...] fever, # 80 tab, 1 Refill(s), Pharmacy: [facility] Start Date: 11/02/22 Status: Ordered lisdexamfetamine [...] medication., # 21 tab, 0 Refill(s), Pharmacy: [facility] #93, 157.48, cm, 09/26/23 10:42:00 EDT, Height, [...] Daily, # 90 cap, 0 Refill(s), Pharmacy: [facility] Start Date: 08/23/22 Status: Ordered traZODone [...] fever, # 50 tab, 1 Refill(s), Pharmacy: [facility]93 Start Date: 11/02/22 Status: Ordered Tylenol Extra Strength 500 mg oral tablet QID, as needed, 0 Refill(s) Start Date: 04/27/22 Status: Ordered Vagifem 10 mcg vaginal tablet 10 mcg = 1 tab, VAG, Mon//Fr at bedtime, # 36 tab, 3 Refill(s), Pharmacy: [facility]93 Start Date: 01/08/23 Status: Ordered Vagifem 10 mcg vaginal tablet 10 mcg = 1 tab, VAG, Mon/Fri, # 26 tab, 4 Refill(s), Pharmacy: [facility] Start Date: 10/25/22 Stop Date: 8/10/24 Status: Ordered Vascepa 1 g oral capsule [...] Completed Surgery 2 06/2020 Completed Drainage of program management manager y canal abscess 3 10/2016 Completed [...] Results Laboratory List Name Date .Urinalysis POCT 02/14/24 Most recent to oldest [Reference Range]: 1 Method of Collect POC Clean Catch *NA* (02/14/24 10:56 AM) Specific [place], Ur POC 1.025 *NA* (02/14/24 10:56 AM) Specimen Color POC [Yellow] Yellow (02/14/24 10:56 AM) Glucose, Urine POC Negative mg/dL *NA* (02/14/24 10:56 AM) Bilirubin, Urine POC [Negative] Small *ABN* (02/14/24 10:56 AM) Ketones, Urine POC [Negative mg/dL] >=16 0 mg/dL *ABN* (02/14/24 10:56 AM) Blood, Urine POC [Negative] Trace *ABN* (02/14/24 10:56 AM) pH, Urine POC 6.0 *NA* (02/14/24 10:56 AM) Protein, Urine POC [Negative mg/dL] 30 m g/dL *ABN* (02/14/24 10:56 AM) Urobilinogen, Urine POC [0.2] 0.2 (02/14/24 10:56 AM) Nitrite, Urine POC [Negative] Negative (02/14/24 10:56 AM) Leuk Esterase, Urine POC [Negative] Nega tive (02/14/24 10:56 AM) Clarity, Urine POC [Clear] Clear (02/14/24 10:56 AM) Social History Social History Type Response Tobacco Never tobacco user T obacco Use:. Sex Female Sex Representation Female (finding) Patient Care team information Care Team Personnel Name: KEELY GOMEZ Position: No Access Member Role: Informed Provider Address: [address] Name: Yasmine Strickland APRN Position: Physician Member Role: Nurse Practitioner Address: [address] [place] [id number] Name: MILO DANG Position: No Access Member Role: Primary Care Physician Address: [address] [place] [id number] [place] [address] Care Team Related Persons Name: MARIANO MORENO Name: DESEAN ESPARZA Name: DESEAN ESPARZA Insurance Providers Guarantor name: SUNNY ESPARZA Health Plan Information #: 1 Payer: [employer] Member Number: [id number] Policy Number: NA Health Plan Information #: 2 Payer: [place] [employer] Member Number: [id number] Policy Number: NA Health Plan Information #: 3 Payer: [employer] Member Number: [id number] Policy Number: NA
--- OUTSIDE RECORDS SUMMARY | 2024-02-15 13:13 | XMS_ITS | Continuity of Care Document ---
Author Organization [facility] Address [address] [place] [address] Care Team Providers Care Field Service Representative Name Role Phone LAURENCE MILO B Primary Care Physician Encounter [facility] NBR [id number] Date(s): 11/13/23 - 11/13/[address] [address]- Encounter Diagnosis Anxiety disorder, unspecified(Final) - Constipation, unspecified(Final) - Pain in unspecified joint(Final) - Hypercalcemia(Final) - Chronic fatigue, unspecified(Final) - Depression, unspecified(Final) - Pain in unspecified knee(Final) - Other osteoporosis with current pathological fracture, left ankle and foot, subsequent encounter for fracture with routine healing(Final) - Discharge Disposition: Home or Self Care Attending Physician: VINEET SEQUEIRA MD Admitting Physician: VINEET SEQUEIRA MD Referring Physician: VINEET SEQUEIRA MD Allergies, Adverse Reactions, Alerts Substance Reaction Severity Status amoxicillin Unknown Active morphine Unknown Active citalopram Unknown Active Bactrim Unknown Active Zocor Unknown Active Voltaren Unknown Active Lipitor Unknown Active Bees/Stinging Insects Unknown Active OxyCONTIN Unknown Active fenofibrate Unknown Active penicillins Unknown Active sulfa drugs Unknown Active Augmentin Moderate Active Effexor Unknown Active Sulfabenzamide/Sulfacetamide/Sulfathiazole Nausea Moderate Active Crestor Unknown Active Assessment and [...] 11/15/14 Tu rded 1Result Comment: Unit: Unknown 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 2Result Comment: Unit: Unknown 3Result Comment: [...] Daily, # 30 cap, 11 Refill(s), Pharmacy: [facility]93 Start Date: 03/28/23 Status: Ordered EpiPen [...] fever, # 80 tab, 1 Refill(s), Pharmacy: [facility] #93 Start Date: 11/02/22 Status: Ordered lisdexamfetamine [...] medication., # 21 tab, 0 Refill(s), Pharmacy: [facility] #93, 157.48, cm, 09/26/23 10:42:00 EDT, Height, [...] Daily, # 90 cap, 0 Refill(s), Pharmacy: [facility]93 Start Date: 08/23/22 Status: Ordered traZODone [...] fever, # 50 tab, 1 Refill(s), Pharmacy: [facility] #93 Start Date: 11/02/22 Status: Ordered Tylenol Extra Strength 500 mg oral tablet QID, as needed, 0 Refill(s) Start Date: 04/27/22 Status: Ordered Vagifem 10 mcg vaginal tablet 10 mcg = 1 tab, VAG, Mon//Fr at bedtime, # 36 tab, 3 Refill(s), Pharmacy: [facility] #93 Start Date: 01/08/23 Status: Ordered Vagifem 10 mcg vaginal tablet 10 mcg = 1 tab, VAG, Mon/Sat, # 26 tab, 4 Refill(s), Pharmacy: [facility] [...] Completed Surgery 2 06/2020 Completed Drainage of assembler latches and springs y canal abscess 3 10/2016 Completed Procedure [...] Laboratory List Name Date Comprehensive Metabolic Panel 11/13/23 Magnesium Level 11/13/23 PTH Intact 11/13/23 Most recent to oldest [Reference Range]: 1 BUN [7-25 mg/dL] 14 mg/dL (11/13/23 8:44 AM) Glucose Level [70-109 mg/dL] 102 mg/dL (11/13/23 8:44 AM) Potassium Level [3.5-5.1 mmol/L] 3.8 mmo l/L (11/13/23 8:44 AM) AST [13-39 IntlUnit/L] 20 IntlUnit/L (11/13/23 8:44 AM) ALT [7-52 IntlUnit/L] 15 IntlUnit/L (11/13/23 8:44 AM) Osmolality [275-295 mOsm/kg] 269 mOsm/kg *LOW* (11/13/23 8:44 AM) Sodium Level [136-145 mmol/L] 134 mmol/L *LOW* (11/13/23 8:44 AM) Calcium Level [8.6-10.3 mg/dL] 10.3 mg/d L (11/13/23 8:44 AM) Albumin Level [3.5-5.7 g/dL] 4.7 g/dL (11/13/23 8:44 AM) Protein Total [6.4-8.9 g/dL] 7.3 g/dL (11/13/23 8:44 AM) Magnesium Level [1.9-2.7 mg/dL] 2.1 mg/d L (11/13/23 8:44 AM) Bilirubin Total [0.3-1.0 mg/dL] 0.7 mg/d L (11/13/23 8:44 AM) Alk Phos [34-104 IntlUnit/L] 49 IntlUnit /L (11/13/23 8:44 AM) CO2 [21-31 mmol/L] 29 mmol/L (11/13/23 8:44 AM) Chloride Level [98-107 mmol/L] 95 mmol/L *LOW* (11/13/23 8:44 AM) A/G Ratio [1.0-2.5 g/dL] 1.8 g/dL (11/13/23 8:44 AM) BUN/Creat Ratio [8.0-20.0] 17.5 (11/13/23 8:44 AM) Globulin [2.3-3.5 g/dL] 2.6 g/dL (11/13/23 8:44 AM) Creatinine Level [0.60-1.20 mg/dL] 0.80 mg/dL (11/13/23 8:44 AM) Anion Gap [3.0-12.0] 10.0 (11/13/23 8:44 AM) Parathyroid Hormone, Intact [12.0-88.0 p g/mL] 42.7 pg/mL (11/13/23 8:44 AM) eGFR CKD-EPI [>=60 mL/min/1.73 m2] 77 mL /min/1.73 m2 (11/13/23 8:44 AM) Social History Social History Type Response Tobacco Never tobacco user T obacco Use:. Sex Female Patient Care team information Care Team Personnel Name: Yasmine Strickland APRN Position: Physician Member Role: Nurse Practitioner Address: Address: [address] [place] [address] Name: MILO DANG Position: No Access Member Role: Primary Care Physician Address: Address: [address] [place] [address] Name: VINEET SEQUEIRA MD Position: No Access Member Role: Informed Provider [facility] [address] Care Team Related Persons Name: MARIANO MORENO Name: DESEAN ESPARZA Address: Home [address] [place] [phone] Address: Mailing [address] [place] [phone] Name: DESEAN ESPARZA Address: Home [address] [place] [phone] [facility] Address: Mailing [address] [place] [phone]
--- OUTSIDE RECORDS SUMMARY | 2024-02-15 13:14 | XMS_ITS | Encounter Summary ---
Author Organization [facility] [place] [address] Care Team Providers Care Seismograph Observer Name Role Phone CésarDana hamm Mery ROCHE Primary Care Provider [phone] Reason for Visit * Reason Comments Medication Refill Encounter Details Date Type Department Care Team (Late st Contact Info) Description 02/08/2024 Refill Cardiology at [address] [address] Liam Noel MD [facility] [place] [address] Medication Refill Social History Tobacco Use Types Packs/Day Years Used Date Smoking Tobacco: Former Cigarettes 0.3 10 Smokeless Tobacco: Never Comments:Patient denies ever being a smoker Alcohol Use Standard Drinks/Week Comments Yes 0 (1 standard drink = 0.6 oz pur e alcohol) 3-9 glasses per week Sex and Gender Information Value Date Recorded Sex Assigned at Not on file Gender Identity Not on file Sexual Orientation Not on file documented as of this encounter Plan of Treatment Upcoming Encounters Date Type Department Care Team (Late st Contact Info) Description 03/13/2024 9:45 AM EDT Office Visit Dermatology at [address] [address] Emiliano Salinas MD [address] [place] [address] RD, [place] [address] documented as of this encounter Visit Diagnoses Diagnosis Mixed hyperlipidemia documented in this encounter Care Teams Seismograph Observer Relationship Specialty Start Date End Date Dana Cedillo DO [address] [place] [address] PCP - General Family Medicine 10/16/23 documented as of this encounter
--- OUTSIDE RECORDS SUMMARY | 2024-02-15 13:14 | XMS_ITS | Clinical Summary ---
Author Organization [facility] Address [address] [place] [address] Care Team Providers Care Director Packaging Name Role Phone Unavailable Primary Care Provider Unavailabl e Social History Tobacco Use Types Packs/Day Years Used Date Smoking Tobacco: Never Assessed Sex and Gender Information Value Date Recorded Sex Assigned at Not on file Gender Identity Not on file Sexual Orientation Not on file Plan of Treatment Health Maintenance Due Date Last Done Comments RSV Immunization ( o r 60+ Years) (1 - 1-dose 60+ series) 2009 Fall Risk Screening 2014 COVID-19 Vaccine ( season) 2024 Hepatitis C Screen Completed 11/04/2020 Procedures Procedure Name Priority Date/Time Associated Diagnosis Comments HEPATITIS C AB W REFLEX TO HCV RNA BY PCR Routine 11/04/2020 14:37 EDT from Last 3 Months or Most Recently Relevant to Health Maintenance Results * HEPATITIS C AB W REFLEX TO HCV RNA BY PCR (11/04/2020 14:37 EDT) Hep C Antibody Negative Negative 11/07/2020 10:56 EDT [facility] Blood VENOUS BLOOD / Unknown 11/04/2020 14:37 EDT 11/04/2020 21:45 EDT Provider Outr Resulting Lab CHEMISTRY & BLOOD GAS ORDERABLES [facility] [address] [place] [address] from Last 3 Months or Most Recently Relevant to Health Maintenance
--- OUTSIDE RECORDS SUMMARY | 2024-02-15 13:14 | XMS_ITS | Encounter Summary ---
Author Organization [facility] Address [address] [place] [address] Care Team Providers Care Precision Layout Worker Name Role Phone Unavailable Primary Care Provider Unavailabl e Encounter Details Date Type Department Care Team (Late st Contact Info) Description 03/20/2023 Lab Requisition [facility] Pathology & Laboratory Medicine - [facility] [address] [place] [address] Outr Resulting Lab, Provider Social History Tobacco Use Types Packs/Day Years Used Date Smoking Tobacco: Never Assessed Sex and Gender Information Value Date Recorded Sex Assigned at Not on file Gender Identity Not on file Sexual Orientation Not on file documented as of this encounter Plan of Treatment Not on file documented as of this encounter Procedures Procedure Name Priority Date/Time Associated Diagnosis Comments CELIAC DISEASE PANEL Routine 03/20/2023 11:00 EDT documented in this encounter Results * CELIAC DISEASE PANEL (03/20/2023 11:00 EDT) Tissue Transglutaminase Antibody IGA <1.2 <4.0 U/mL 03/21/2023 12:51 EDT [facility] Comment: A negative result may be due to IgA deficiency and does not rule out celiac disease. ? Negative: ??<4.0 U/mL ? Weak Positive: ??4.0 - 10.0 U/mL ? Positive: ??>10.0 U/mL Results were obtained with the AntidotA Lite R h-tTG IgA MOHAMUD assay on the [employer] DSX. IgA 243 85 - 499 mg/dL 03/21/2023 12:51 EDT [facility] Celiac Disease Interpretation Negative Serology. Celiac disease unlikely. Approximately 10% of patients with celiac disease are seronegative. Patients who are already adhering to a gluten-free diet may also be seronegative. If celiac disease is highly clinically suspected, referral to gastroenterology for additional evaluation is recommended. 03/21/2023 12:51 EDT [facility] Blood VENOUS BLOOD / Unknown 03/20/2023 11:00 EDT 03/20/2023 21:56 EDT Provider Outr Resulting Lab IMMUNOLOGY A ND SEROLOGY ORDERABLES [facility] [address] [place] [address] documented in this encounter Visit Diagnoses Not on filedocumented in this encounter
--- OUTSIDE RECORDS SUMMARY | 2024-02-15 13:14 | XMS_ITS | Encounter Summary ---
[facility] [place] [address] Care Team Providers Care Info Analyst Name Role Phone Dana Cedillo Primary Care Provider +1- [phone] Encounter Details Date Type Department Care Team (Late st Contact Info) Description 10/30/2023 Telephone [place] [phone] Luna Lazcano RN Social History Tobacco Use Types Packs/Day Years [...] on file documented as of this encounter Miscellaneous Notes * Telephone Encounter - Luna Lazcano RN - 10/30/2023 2:33 PM EDT Copied from CRM #[id number]. Topic: Specialty Dept CRMs - Medication Issues >> October 30, 2023 2:25 PM Edita Woodard wrote: Medication Issues Specialist Virginia Everett, Relationship (if other than patient-full name): self Reason for call: Medication Issue (if symptom based used Triage Subtopic) Message/information for the nurse: Name of Medication: hydroCHLOROthiazide 12.5 mg tablet Issue with the medication: patient seems unusually tired and wonders if she should continue to takethe medication documented in this encounter Plan of Treatment Upcoming Encounters Date Type Department Care Team (Late st Contact Info) Description 03/13/2024 9:45 AM EDT Office Visit Dermatology at [place] [address] [place] [address] Emiliano Salinas MD [address], [place] [address] documented as of this encounter Visit Diagnoses Not on filedocumented in this encounter Care Teams Info Analyst Relationship Specialty Start Date End Date Dana Cedillo DO [address] [place] [address] PCP - General Family Medicine 10/16/23 documented as of this encounter
--- OUTSIDE RECORDS SUMMARY | 2024-02-15 13:14 | XMS_ITS | Encounter Summary ---
Author Organization [facility] [place] [address] Care Team Providers Care Resource Efficiency Manager Name Role Phone Nguyen Danarebecca Ordonez DO Primary Care Provider +1- [phone] Encounter Details Date Type Department Care Team (Late st Contact Info) Description 10/18/2023 Telephone [place] [phone] Virginia Everett MD [facility] [place] [address] Social History Tobacco Use Types Packs/Day Years [...] encounter Miscellaneous Notes * Telephone Encounter - Virginia Everett MD - 10/18/2023 4:50 PM EDT Called pt to answer her questions. She will continue HCTZ for another 2 weeks and then repeat the 24h urine. She had DXA scan today which showed normal BNMD but with her unproved fracture I am awaiting to get the results of theTBS score. Will plan for potential Reclast based on the results as she could not tolerate fosamax previously. documented in this encounter Plan of Treatment Upcoming Encounters Date Type Department Care Team (Late st Contact Info) Description 03/13/2024 9:45 AM EDT Office Visit Dermatology at [place] [address] [place] [address] Emiliano Salinas MD [address], BAKARI [place] [address] documented as of this encounter Visit Diagnoses Not on filedocumented in this encounter Care Teams Resource Efficiency Manager Relationship Specialty Start Date End Date Dana Cedillo DO [address] [place] [address] PCP - General Family Medicine 10/16/23 documented as of this encounter
--- OUTSIDE RECORDS SUMMARY | 2024-02-15 13:14 | XMS_ITS | Encounter Summary ---
Author Organization [facility] [address] Care Team Providers Care Control Room Agent Name Role Phone CésarDana hamm Mery ROCHE Primary Care Provider +1- [phone] Encounter Details Date Type Department Care Team (Late st Contact Info) Description 02/04/2024 Transcribe Orders Neurosurgery at [facility] [address] [place] [phone] Nell Fitch [address] [facility] [address] [place] [address] Social History Tobacco Use Types Packs/Day Years [...] 9:45 AM EDT Office Visit Dermatology at [address] [place] [address] Emiliano Salinas MD [address], [place] [address] documented as of this encounter Visit Diagnoses Not on filedocumented in this encounter Care Teams Control Room Agent Relationship Specialty Start Date End Date Dana Cedillo DO [address] [place] [address] PCP - General Family Medicine 10/16/23 documented as of this encounter
--- OUTSIDE RECORDS SUMMARY | 2024-02-15 13:14 | XMS_ITS | Referral Summary ---
Author Organization [facility] Address [address] [place] [address] Care Team Providers Care Veterinary Milk Specialist Name Role Phone Unavailable Primary Care Provider Unavailabl e Social History Tobacco Use Types Packs/Day Years Used Date Smoking Tobacco: Never Assessed Sex and Gender Information Value Date Recorded Sex Assigned at Not on file Gender Identity Not on file Sexual Orientation Not on file Plan of Treatment Not on file Procedures Procedure Name Priority Date/Time Associated Diagnosis Comments HEPATITIS C AB W REFLEX TO HCV RNA BY PCR Routine 11/04/2020 14:37 EDT from Last 3 Months or Most Recently Relevant to Health Maintenance Results * HEPATITIS C AB W REFLEX TO HCV RNA BY PCR (11/04/2020 14:37 EDT) Hep C Antibody Negative Negative 11/07/2020 10:56 EDT [facility] Blood VENOUS BLOOD / Unknown 11/04/2020 14:37 EDT 11/04/2020 21:45 EDT Provider Outr Resulting Lab CHEMISTRY & BLOOD GAS ORDERABLES [facility] [address] [place] [address] from Last 3 Months or Most Recently Relevant to Health Maintenance
--- OUTSIDE RECORDS SUMMARY | 2024-02-15 13:14 | XMS_ITS | Encounter Summary ---
Author Organization [facility] Address [address] [place] [address] Care Team Providers Care Water Treatment Plant Engineer Name Role Phone Unavailable Primary Care Provider Unavailabl e Encounter Details Date Type Department Care Team (Late st Contact Info) Description 08/05/2023 Lab Requisition [facility] Pathology & Laboratory Medicine - [facility] [address] [place] [address] Outr Resulting Lab, Provider Social History Tobacco [...] Procedure Name Priority Date/Time Associated Diagnosis Comments CALCIUM, URINE 24HR Routine 08/05/2023 8:00 EST documented in this encounter Results * CALCIUM, URINE 24HR (08/05/2023 8:00 EST) Calcium, Urine 7.4 See Note mg/dL 08/06/2023 9:08 [facility] Comment: NOTE: Reference range not established Calcium, Urine 24 hr 287 100 - 300 mg/24hr 08/06/2023 9:08 [facility] Comment:Reference range assu mes a normal daily intake of calcium between 600 - 800 mg/day. Urine Volume 3,875 mL 08/06/2023 9:08 [facility] Urine Collection Period 24.0 Hours 08/06/2023 9:08 [facility] Urine 24 HOUR URINE SPECIMEN / Unknown 08/05/2023 8:00 EST 08/05/2023 21:36 EST Provider Outr Resulting Lab URINALYSIS O RDERABLES [facility] [address] [place] [address] documented in this encounter Visit Diagnoses Not on filedocumented in this encounter
--- OUTSIDE RECORDS SUMMARY | 2024-02-15 13:14 | XMS_ITS | Encounter Summary ---
Author Organization [facility] [place] [address] Care Team Providers Care Production Sanitizer Name Role Phone Dana Cedillo DO Primary Care Provider +1- [phone] Encounter Details Date Type Department Care Team (Latest Contact Info) Description 10/18/2023 Travel Social History Tobacco Use Types Packs/Day Years [...] 9:45 AM EDT Office Visit Dermatology at [place] [address] [place] [phone] Emiliano Salinas MD [address], [place] [address] documented as of this encounter Visit Diagnoses Not on filedocumented in this encounter Care Teams Production Sanitizer Relationship Specialty Start Date End Date Dana Cedillo DO [address] [place] [address] PCP - General Family Medicine 10/16/23 documented as of this encounter
--- OUTSIDE RECORDS SUMMARY | 2024-02-15 13:14 | XMS_ITS | Encounter Summary ---
Author Organization [facility] Address [address] [place] [address] Care Team Providers Care Wire Frame Lampshade Maker Name Role Phone Unavailable Primary Care Provider Unavailabl e Encounter Details Date Type Department Care Team (Late st Contact Info) Description 09/12/2005 Results Only [facility] - Maple conversion [address] [place] [address] Neisha Castaneda MD [address] [place] [address] [place] [address] Social History Tobacco Use Types Packs/Day Years Used Date Smoking Tobacco: Never Assessed Sex and Gender Information Value Date Recorded Sex Assigned at Not on file Gender Identity Not on file Sexual Orientation Not on file documented as of this encounter Plan of Treatment Not on file documented as of this encounter Procedures Procedure Name Priority Date/Time Associated Diagnosis Comments CYTOPATHOLOGY Routine 09/12/2005 0:00 EDT documented in this encounter Results * CYTOPATHOLOGY (09/12/2005 0:00 EDT) Pathology Report: CYTOPATHOLOGY REPORT Reports generated via electronic interface contain original data; however they are lacking the format of the original report. Caution should be taken when reading/interpreti ng unformatted reports. Name: ? YESSENIA LUONG ? Accession #: ? [id number] : ? 1950 (Age: 55) ??F ?Collect Date: ? 09/12/2005 Location: ? [facility] ? Receive Date: ? 09/13/2005 Provider: ?NEISHA CASTANEDA MD Copy to: ? Specimen/Source: ?ThinPrep Pap Test, Cervix/Endocervix, processed on [employer] ThinPrep Imaging System, with manual evaluation Last Menstrual Period: ? Menstrual/Pregnanc y Status: ? Post Menopausal Other: ? Additional clinical information: Hx nl paps HPVA - HPV testing requested if ASC-US on the current ThinPrep Pap test. ? SPECIMEN ADEQUACY ? Satisfactory for Evaluation - transformation zone component absent GENERAL CATEGORIZATION ? Negative for Intraepithelial Lesion or Malignancy ? Document reviewed and electronically signed by: ? Eulalio Lantigua, KATI(ASCP) ? Report Date: ??09/17/2005 09:38 End of Report MARTHA THOMPSON 09/12/2005 09/13/2005 Neisha Castaneda MD PATHOLOGY ORDERABLES Performing Organization Address City/State/[facility] Co de Phone Number MARTHA THOMPSON [address] [place] [address] documented in this encounter Visit Diagnoses Not on filedocumented in this encounter
--- OUTSIDE RECORDS SUMMARY | 2024-02-15 13:14 | XMS_ITS | Encounter Summary ---
Author Organization [facility] [place] [address] Care Team Providers Care Marketing Content Specialist Name Role Phone Dana Cedillo DO Primary Care Provider +1- [phone] Encounter Details Date Type Department Care Team (Late st Contact Info) Description 01/23/2024 Telephone Cardiology at [address] [place] [address] Liam Noel MD [facility] [place] [address] Social History Tobacco Use Types Packs/Day Years [...] encounter Miscellaneous Notes * Telephone Encounter - Sarah Shannon RN - 01/23/2024 10:28 AM EDT Yessenia calls into office to request Dr. Noel order a calcium score scan. Per Yessenia [facility] and she was told to have a calcium score done,she is unsure if she has ever had this done before. She is having her cholesterol checked next week and states she would prefer to have both tests doneat that time. Her next appointment with Dr. Noel is February 13, 2024. documented in this encounter Plan of Treatment Upcoming Encounters Date Type Department Care Team (Late st Contact Info) Description 03/13/2024 9:45 AM EDT Office Visit Dermatology at [place] [address] [facility] [place] [address] Emiliano Salinas MD [address], [place] [address] documented as of this encounter Visit Diagnoses Not on filedocumented in this encounter Care Teams Marketing Content Specialist Relationship Specialty Start Date End Date Dana Cedillo DO [address] [place] [address] PCP - General Family Medicine 10/16/23 documented as of this encounter
--- OUTSIDE RECORDS SUMMARY | 2024-02-15 13:14 | XMS_ITS | Encounter Summary ---
Author Organization [facility] [place] [address] Care Team Providers Care Child Adolescent Care Name Role Phone Dana Cedillo DO Primary Care Provider +1- [phone] Encounter Details Date Type Department Care Team (Late st Contact Info) Description 01/09/2024 Telephone Cardiology at [address] [place] [address] Liam Noel MD [facility] [place] [address] Social History Tobacco Use Types Packs/Day Years [...] encounter Miscellaneous Notes * Telephone Encounter - Ashlyn Celis RN - 01/09/2024 1:59 PM EDT Images from the original note were not included. [facility] [address] [place] [address] [place] [address] Yessenia called provide message for Dr. Noel from her provider Dr. Chapa who treats Lyme disease. That provider requests he look at a calcium CT score when he does blood work next time. Information given to Yessenia: That terminology refers to a special diagnostic imaging study by CT, not a routine blood test. Dr. Noel would need to consider her medical necessity for that study and patients often pay a good portion of the billed cost. I will apprise Dr. Noel of this suggestion. He will return to clinic January 12 but may choose to address this inquiry at her next office visit February 12. Dr. Chapa is a Naturopathy provider at [facility] [address] [place] [facility], [place], [place] [id number] documented in this encounter Plan of Treatment Upcoming Encounters Date Type Department Care Team (Late st Contact Info) Description 03/13/2024 9:45 AM EDT Office Visit Dermatology at [address] [place] [address] Emiliano Salinas MD [address] [place] [address], [facility] [place] [place] [address] documented as of this encounter Visit Diagnoses Not on filedocumented in this encounter Care Teams Child Adolescent Care Relationship Specialty Start Date End Date Dana Cedillo DO [address] [place] [address] PCP - General Family Medicine 10/16/23 documented as of this encounter
--- OUTSIDE RECORDS SUMMARY | 2024-02-15 13:14 | XMS_ITS | Patient Health Record ---
Author Organization [facility] Address [address], [place] [id number] Care Team Providers Care Sand Worker Name Role Phone Veronica De Primary Care Provider [phone] Allergies Allergen (clinical drug ingredient) Drug/Non Drug Allergy documented on EMR Reaction Allergy Type Onset Date Status dairy (uncoded) Unknown Allergy Acti ve seasonal (uncoded) Unknown Allergy A ctive Wheat wheat (uncoded) Unknown Allergy Acti ve amoxicillin Amoxicillin Unknown Drug Allergy Act aide amoxicillin / clavulanate Augmentin Unknown Drug Allergy Active sulfamethoxazole / trimethoprim Bactrim Unknown Drug Allergy Active rosuvastatin Crestor Unknown Drug Allergy Acti ve Effexor Unknown Drug Allergy Active atorvastatin Lipitor Unknown Drug Allergy Acti ve morphine Morphine Sulfate ER Unknown Drug Allergy Active oxycodone OxyCONTIN Unknown Drug Allergy Active penicillin V Penicillin V Potassium Unknown Drug Allergy Active Voltaren Unknown Drug Allergy Active simvastatin Zocor Unknown Drug Allergy Activ e Bee Sting Unknown Allergy Active citalopram Citalopram Unknown Drug Allergy Activ e fenofibrate Fenofibrate Unknown Drug Allergy Act aide Substance with sulfonamide structure and antibacterial mechanism of action (substance) Sulfa Antibiotics Unknown Drug Allergy A ctive Results Component Value Reference Range Notes VITAMIN D, (1,25-DI-OH) Reviewed date:07/29/2023 11:30:44 AM Interpretation:Normal Performing Lab: Notes/Report: Normal CALCITRIOL(1,25 DI-OH VIT D) 47 Reason For Referral No Information Medications Medication SIG (Take, Route, Frequency, Duration) Notes Start Date End Date Status Levothyroxine Sodium 50 MCG 1 tablet in the morning on an empty stomach Orally Once a day Active Nexletol 180 MG 1 tablet Orally Once a day Active Niacin ER 750 MG 1 tablet with food Orally Once a day Active Proventil HFA 108 (90 Base) MCG/ACT 2 puffs as needed Inhalation every 6 hrs Active NAC 600 MG 1 capsule Orally twi ce a day for 30 days 08/29/2023 Active EpiPen 2-Melchor 0.3 MG/0.3ML as directed Injection Active Fluticasone Propionate 50 MCG/ACT 1 spray in each nostril Nasally Twice a day Active Fosamax 70 MG 1 tablet 30 minutes before the first food, beverage or medicine of the day with plain water Orally Active Ketotifen Fumarate 0.025 % 1 drop into a ffected eye Ophthalmic Twice a day Active traZODone HCl 100 MG 11/2 tablet at time Orally at bedtime for 30 days Active Vilazodone HCl 10 MG TAKE ONE TABLET BY MOUTH EVERY DAY WITH FOOD for 30 Not-Taking Detrol LA 2 MG 1 capsule Orally Onc e a day Active Vitamin D3 Super Strength 50 MCG (2000 UT) 1 capsule Orally Once a day for 30 days stop vitamin D 50,000 01/14/2023 Active diazePAM 2 MG 1 tablet at bedtime Orally Once a day for 30 days 09/26/2023 Active Social History Tobacco Use: Social History Observation Description Date Details (start date - stop date) Never Smoker NA - NA OTHER TOBACCO USE: Question Answer Notes Are you an other tobacco user? No SMOKING STATUS: Question Answer Notes Are you a: Nonsmoker Problems Problem Type SNOMED Code ICD Code Onset Dates Problem Status W/U Status Risk Notes Problem 946854692 Anxiety disorder, unspecified (F41.9) Active confirmed Problem 285458339 Medication monitoring encounter (Z51.81) Active confirmed Problem 48764689 Other chronic pain (G89.29) Active confirmed Problem [id number] Major depressive disorder, recurrent, moderate (F33.1) Active confirmed Problem 79309874 Vitamin D deficiency, unspecified (E55.9) Active confirmed Problem Allergic rhinitis caused by pollen (82641543) Allergic rhinitis due to pollen, unspecified seasonality (J30.1) Active confirmed Vital Signs Heart Rate 92 BPM 03/05/2023 Temperature 97.8 degrees Fahrenheit 03/05/2023 Blood pressure diastolic 66 mmHg 04/23/2023 Oximetry 96 % 03/05/2023 Blood pressure systolic 126 mmHg 04/23/2023 Weight 163.6 lbs 04/23/2023 Encounters Encounter Location Date Provider Diagnosis [address] [id number] 03/05/2023 Veronica De Major depressive disorder, recurrent, moderate F33.1 ; Other chronic pain G89.29 and Anxiety F41.[address] [id number] 03/26/2023 Veronica De Major depressive disorder, recurrent, moderate F33.1 ; Anxiety disorder, unspecified F41.9 and Other chronic pain G89.[address] [id number] 04/23/2023 Veronica De Major depressive disorder, recurrent, moderate F33.1 and Anxiety disorder, unspecified F41.[address] [id number] 04/25/2023 Veronica De Major depressive disorder, recurrent, moderate F33.1 ; Anxiety disorder, unspecified F41.9 and Other chronic pain G89.[address] [id number] 05/07/2023 Veronica De Major depressive disorder, recurrent, moderate F33.1 ; Anxiety disorder, unspecified F41.9 and Other chronic pain G89.[address] [id number] 05/16/2023 Veronica De Major depressive disorder, recurrent, moderate F33.1 ; Anxiety disorder, unspecified F41.9 and Other chronic pain G89.[address] [id number] 06/24/2023 Veronica De Major depressive disorder, recurrent, moderate F33.1 ; Anxiety disorder, unspecified F41.9 and Other chronic pain G89.[address] [id number] 08/29/2023 Veronica De Major depressive disorder, recurrent, moderate F33.1 ; Anxiety disorder, unspecified F41.9 and Other chronic pain G89.[address] [id number] 03/06/2023 Veronica De [address] [id number] 04/22/2023 Veronica De [address] [id number] 07/08/2023 Veronica De [address] [id number] 08/29/2023 Veronica De [address] [id number] 09/26/2023 Veronica De Major depressive disorder, recurrent, moderate F33.[address] [id number] 12/10/2023 Veronica De Assessments Encounter Date Diagnosis (ICD Code) Assessment Notes Treatment Notes Treatment Clinical Notes 03/05/2023 Major depressive disorder, recurrent, moderate (ICD-10 - F33.1) 03/26/2023 Major depressive disorder, recurrent, moderate (ICD-10 - F33.1) 04/23/2023 Major depressive disorder, recurrent, moderate (ICD-10 - F33.1) 04/25/2023 Major depressive disorder, recurrent, moderate (ICD-10 - F33.1) 05/07/2023 Major depressive disorder, recurrent, moderate (ICD-10 - F33.1) 05/16/2023 Major depressive disorder, recurrent, moderate (ICD-10 - F33.1) 06/24/2023 Major depressive disorder, recurrent, moderate (ICD-10 - F33.1) 08/29/2023 Major depressive disorder, recurrent, moderate (ICD-10 - F33.1) 09/26/2023 Major depressive disorder, recurrent, moderate (ICD-10 - F33.1) 03/05/2023 Other chronic pain (ICD-10 - G89.29) 08/29/2023 Anxiety disorder, unspecified (ICD-10 - F41.9) 06/24/2023 Anxiety disorder, unspecified (ICD-10 - F41.9) 05/16/2023 Anxiety disorder, unspecified (ICD-10 - F41.9) 05/07/2023 Anxiety disorder, unspecified (ICD-10 - F41.9) 04/25/2023 Anxiety disorder, unspecified (ICD-10 - F41.9) 04/23/2023 Anxiety disorder, unspecified (ICD-10 - F41.9) 03/26/2023 Anxiety disorder, unspecified (ICD-10 - F41.9) 03/05/2023 Anxiety (ICD-10 - F41.9) 03/26/2023 Other chronic pain (ICD-10 - G89.29) 04/25/2023 Other chronic pain (ICD-10 - G89.29) 05/07/2023 Other chronic pain (ICD-10 - G89.29) 05/16/2023 Other chronic pain (ICD-10 - G89.29) 06/24/2023 Other chronic pain (ICD-10 - G89.29) 08/29/2023 Other chronic pain (ICD-10 - G89.29) 06/04/2023 Other Documentation assistance provided by erika Spence for Veronica De [employer]TER HELPER[employer] SHELLFISH BED WORKER on 06/04/2023. I have read the medical record and scribe entries. I approve the care and treatment provided to this patient as recorded by the scribe 03/05/2023 Other Documentation assistance provided by erika Spence for Veronica De [employer] HEL[employer] SHELLFISH BED WORKER on 03/05/2023. I have read the medical record and scribe entries. I approve the care and treatment provided to this patient as recorded by the scribe. Start Rexulti 0.5 mg at bedtime, monitor for akathisia and TDWill give samples from the office and if having favorable response then will work on PAWill consider adding Gabapentin for nerve painContinue Trazodone 150 mg at bedtimeStop Naltrexone- not takingContinue New Chapter Zyflamend for arthritic painContinue Magnesium 300 mg at bedtimeContinue counseling with Haley Cuadra Try reaching out to Gogo Brizuela for counseling when Haley moves Recommended to use photo therapy (light box) daily for 20 minutes from February-September for seasonal depressionEncouraged to contact [facility] to book a massage 03/26/2023 Other Documentation assistance provided by erika Spence for Veronica De [facility] SPRING FITTER HELPER-C SHELLFISH BED WORKER on 03/26/2023. I have read the medical record and scribe entries. I approve the care and treatment provided to this patient as recorded by the scribe Stop Rexulti- causing insomniaStart Pristie (Desvelanafxine) 25 mg in the morning, 1 tablet for two weeks. If she is having favorable response, increase to 2 tabletsContinue Trazodone 150 mg, 1 tablets at bedtimeRestart Naltrexone 50 mg (1/2 tab) for binge eatingContinue New Chapter Zyflamend for arthritic painContinue Magnesium 300 mg at bedtimeContinue counseling with Haley Weiss to use photo therapy (light box) daily for 20 minutes from February-September for seasonal depression (Verilux [place] 10 -happy light)Encouraged to contact [employer] [facility] [employer] to book a massage.Continue PT/OTConsider gentle stretching exercise for Fibromyalgia, PBS show Adeola SyRusk [facility] Centerasif trauma based yoga with Eulalio Solano in [facility] daily walks and engage in swimmingCan try Colace, prunes, dates, and high fiber diet for constipation 04/23/2023 Other Documentation assistance provided by tino Spenceing for Veronica De [employer] HEL[employer] SHELLFISH BED WORKER on 04/23/2023. I have read the medical record and scribe entries. I approve the care and treatment provided to this patient as recorded by the scribe Continue Pristiq 25 mg for 2 more weeks and then try to increase to 50 mg take in am Start Vyvanse 10 mg in the morning with foodMonitor for headachesWill sign control drug contractContinue Trazodone 150 mg, 1 tablets at bedtime, but recommend she tries taking 1/2 a tab to see if she experiences less daytime fatigueContinue Naltrexone 50 mg (1/2 tab) for binge eating, will stop Naltrexone if she startes VyvanseWill consider Viibryd in the futureContinue New Chapter Zyflamend for arthritic painContinue Magnesium 300 mg at bedtimeconsider counseling with Gogo Martinez [phone] or Johanna Garcia PT/OTConsider gentle stretching exercise for Fibromyalgia, PBS show Adeola WhiteRusk Rehabilitation Centerr gentle yoga [place] daily walks and engage in swimming 04/25/2023 Other Documentation assistance provided by erika Spence [employer] SHELLFISH BED WORKER on 04/25/2023. I have read the medical record and scribe entries. I approve the care and treatment provided to this patient as recorded by the scribe Stop Pristiq, monitor for dizziness and headaches Start Vyvanse 10 mg in the morning with food Monitor for headaches Continue Trazodone 150 mg, 1 tablets at bedtime, monitor for morning sedation Continue Naltrexone 50 mg (1/2 tab) for binge eating, will stop Naltrexone if she starts Vyvanse Will consider Viibryd in the future Continue Magnesium 300 mg at bedtime Continue PT/OT Continue engaging in activities she enjoys 05/07/2023 Other Documentation assistance provided by erika Spence for Veronica De [employer] SHELLFISH BED WORKER on 05/07/2023. I have read the medical record and scribe entries. I approve the care and treatment provided to this patient as recorded by the scribe Increase Vyvanse to 20 mg in the morning with food Monitor for headaches Increase Trazodone to 300 mg, 1 tablets at bedtime, monitor for morning sedation Stop Naltrexone Consider referral to Ketamine clinic Continue Magnesium 300 mg at bedtime Keep diet diary and try organic ACV for reflux 05/16/2023 Other Documentation assistance provided by erika Spence [employer] SHELLFISH BED WORKER on 05/16/2023. I have read the medical record and scribe entries. I approve the care and treatment provided to this patient as recorded by the scribe Decrease Vyvanse to 10 mg in the morning with foodCan take extra Vyvanse 10 mg PRNMonitor for headachesDecrease Trazodone to 250 mg, 1 tablets at bedtime, monitor for morning sedationStart Meloxicam 5 mg one tablet with food for painContinue Magnesium 300 mg at bedtimeEncouraged gentle exercise and stretching for plantar FasciitisApply ice to relieve inflammationCan try NAC 600 mg twice a day, consider purchasing OTCWill check Vit D level, blood work orders in place, call [facility] to make appointment 06/24/2023 Other Documentation assistance provided by erika Spence for Veronica De [employer] SHELLFISH BED WORKER on 06/24/2023. I have read the medical record and scribe entries. I approve the care and treatment provided to this patient as recorded by the scribe Start Viibryd 10 mg with foodMonitor for nausea, GI upset, headachesStop Vyvanse -having diarrheaStop MeloxicamContinue Trazodone 150 mg at bedtime, monitor for morning sedationTry NAC 600 mg once a day, if having favorable response consider increasing to twice dailyReach out to Rodolfo Cuadra for counselingContinue Magnesium 300 mg at bedtimeEncouraged gentle yoga and stretching, I highly recommend watching Adeola Sy on PBS or YouTubecontact Gogo Martinez or Johanna Barajas at [phone] consider attending yoga class with Vance Solano 08/29/2023 Other Documentation assistance provided by erika Spence for Veronica De [employer] HEL[employer] SHELLFISH BED WORKER on 08/30/2023. I have read the medical record and scribe entries. I approve the care and treatment provided to this patient as recorded by the scribe. Start Diazepam 2 mg, one tablet at night Avoid drinking and advised against driving when taking Diazepam Try NAC 600 mg once a day and if having favorable response then increase to twice daily For mental fogginess, optimal dose is 1200 mg twice daily Consider Zyflamend and Ashwagandha for chronic pain Can take the dramamine prescribed by the ER for vertigo and nausea at night with the valium Plan Of Treatment No Information Insurance Providers Payer Name Payer Address Payer Phone Subscriber Number Group Number Insured Name Patient Relationship to Insured Coverage Start Date Coverage End Date [facility] [address] [place] [address] [id number] Yessenia Luong Self - patient is the insured Medical (General) History Medical History History ICD Code Anxiety Conductive hearing loss History of Lyme Disease 11/2020 Osteoarthritis Hyperlipidemia Hypothyroid Mixed urinary incontinence Vitamin D deficiency Restless Leg Syndrome Insomnia Chronic Fatigue Bilateral varicose veins Recurrent ear infections Mixed urinary incontinence Moderate major depression F32.1 Allergic rhinitis due to pollen, unspeci fied seasonality J30.1 Actinic keratosis L57.0 Anemia D64.9 Heart murmur, systolic R01.1 Lyme disease A69.20 Surgical History Surgery Date(Month/Year) appendectomy tonsillectomy with uvulopalatopharyngopl asty knee surgery b/l balloon sinoplasty frontal and maxil darya b/l T-tube placement 05/23 abscess drainage R shoulder surgery Total abdominal hysterectomy Hospitalization History Reason Date(Month/Year) See surgical hx
--- OUTSIDE RECORDS SUMMARY | 2024-02-15 13:14 | XMS_ITS | Encounter Summary ---
Author Organization [facility] Address [address] [place] [address] Care Team Providers Care Project Manager/Team Coach Name Role Phone Chantell Sharma NP Primary Care Provider [phone] Chantell Sharma NP Unavailable [phone] Encounter Details Date Type Department Care Team (Late st Contact Info) Description 11/04/2020 Lab Requisition [facility] Pathology & Laboratory Medicine - [address] [id number] Outr Resulting Lab, Provider Social History Tobacco [...] RNA BY PCR Routine 11/04/2020 14:37 EDT documented in this encounter Results * HEPATITIS C AB W REFLEX TO HCV RNA BY PCR (11/04/2020 14:37 EDT) Hep C Antibody Negative Negative 11/07/2020 10:[address] [facility] Blood VENOUS BLOOD / Unknown 11/04/2020 14:37 EDT 11/04/2020 21:45 EDT Provider Outr Resulting Lab CHEMISTRY & BLOOD GAS ORDERABLES [facility] [address] [place] [address] documented in this encounter Visit Diagnoses Not on filedocumented in this encounter Care Teams Project Manager/Team Coach Relationship Specialty Start Date End Date Chantell Sharma NP PCP - General 07/22/15 03/18/22 Chantell Sharma NP 07/22/15 03/18/22 documented as of this encounter
--- OUTSIDE RECORDS SUMMARY | 2024-02-15 13:14 | XMS_ITS ---
Author Organization [facility] Address [address] [place] [id number] Care Team Providers Care Engineering Group Leader Name Role Phone Veronica De Primary Care Provider REASON FOR VISIT refill Medications Medication SIG (Take, Route, Frequency, Duration) Notes Start Date End Date Status diazePAM 2 MG 1 tablet at bedtime Orally Once a day for 30 days 09/26/2023 Active Encounters Encounter Location Date Provider Diagnosis [address] [id number] 09/26/2023 Veronica De Major depressive disorder, recurrent, moderate F33.1 Assessments Encounter Date Diagnosis (ICD Code) Assessment Notes Treatment Notes Treatment Clinical Notes 09/26/2023 Major depressive disorder, recurrent, moderate (ICD-10 - F33.1) Plan Of Treatment Medication Medication Name Sig Start Date Stop Date Notes diazePAM 2 MG 1 tablet at bedtime Orally Once a day for 30 days 09/26/2023 Progress Notes * ARNOLDYessenia Meyer SDOB:[birth year] (73 yo F)Acc No.[id number]:09/26/2023 Patient:?Yessenia LUONG :1950???Age:73 Y???Sex:Female Address:[address], [place] [address] * Refills? Refill diazePAM Tablet, 2 MG, Orally, 30 Tablet, 1 tablet at bedtime, Once a day, 30 days, Refills=0 * true * Date:? Generated for Pratik carpio/Kelli/eTransmitting on:?02/15/2024 01:12 PM EDT
--- OUTSIDE RECORDS SUMMARY | 2024-02-15 13:14 | XMS_ITS ---
Author Organization [facility] Address [address] [place] [id number] Care Team Providers Care Front End Loader Driver Name Role Phone Veronica De Primary Care Provider [phone] REASON FOR VISIT possible MED REACTION Encounters Encounter Location Date Provider Diagnosis [address] [id number] 12/10/2023 Veronica De Plan Of Treatment No Information Progress Notes * Yessenia ESPARZA SDOB:[birth year] (73 yo F)Acc No.[id number]:12/10/2023 Patient:?AGYessenia :1950???Age:73 Y???Sex:Female Address:[address], [place] [address] * true * Date:? Generated for Printi ng/Fafredg/eTransmitting on:?02/15/2024 01:12 PM EDT
--- OUTSIDE RECORDS SUMMARY | 2024-02-15 13:14 | XMS_ITS | Encounter Summary ---
[place] [address] Care Team Providers Care Ichthyology Teacher Name Role Phone CésarDana hamm Mery ROCHE Primary Care Provider [phone] Encounter Details Date Type Department Care Team (Late st Contact Info) Description 11/05/2023 [place] [phone] Raeann Ortega RN Social History Tobacco Use Types Packs/Day [...] encounter Miscellaneous Notes * Telephone Encounter - Whitney Alvarez RN - 11/18/2023 2:59 PM EDT Per note on lab order, patient too early to have labs done, will return at correct time frame. * Telephone Encounter - Whitney Alvarez RN - 11/18/2023 2:59 PM EDT ----- Message from Yarelis Arellano sent at 11/18/2023 2:56 PM EDT ----- Lab scanned and indexed. * Telephone Encounter - Raeann Ortega RN - 11/05/2023 12:03 PM EDT Copied from [facility] #[id number]. Topic: Specialty Dept CRMs - Medication Issues >> November 05, 2023 9:52 AM Helen Weston wrote: Medication Issues Specialist Endocrinology COPIED FROM 10/30/23 CRM - Relationship (if other than patient-full name): self Reason for call: Medication Issue (if symptom based used Triage Subtopic) Message/information for the nurse: Name of Medication: hydroCHLOROthiazide 12.5 mg tablet Issue with the medication: patient seems unusually tired and wonders if she should continue to takethe medication, Patient states she has not heard back from anyone and patient requested a call back to discuss. documented in this encounter Plan of Treatment Upcoming Encounters Date Type Department Care Team (Late st Contact Info) Description 03/13/2024 9:45 AM EDT Office Visit Dermatology at [place] [address] [facility] [place] [address] Emiliano Salinas MD [address], [place] [address] documented as of this encounter Visit Diagnoses Not on filedocumented in this encounter Care Teams Ichthyology Teacher Relationship Specialty Start Date End Date Dana Cedillo DO [address] [place] [address] PCP - General Family Medicine 10/16/23 documented as of this encounter
--- OUTSIDE RECORDS SUMMARY | 2024-02-15 13:14 | XMS_ITS | Encounter Summary ---
Author Organization [facility] [place] [address] Care Team Providers Care Director Of Government Sales Name Role Phone Nguyen Danarebecca Ordonez DO Primary Care Provider [phone] Encounter Details Date Type Department Care Team (Late st Contact Info) Description 01/22/2024 4:00 PM EDT TH Visit (TeleHealth) [place] [address] Virginia Everett MD [facility] [place] [address] Hypercalciuria Social History Tobacco Use Types Packs/Day Years [...] on file documented as of this encounter Progress Notes * Virginia Everett MD - 01/22/2024 4:00 PM EDT Images from the original note were not included. Endocrinology Initial Visit Date of Visit: 01/22/2024 Patient Name: Yessenia Luong : 1950 PCP: Dana Cedillo DO Reason for follow up: hypercalcuria HPI: Yessenia Luong is a 73 y.o. female with PMH of HLD, THERESA, OA, asthma, hypothyroidism, osteopenia who presents for follow up. She was last seen in July of 2023. Patient initially presented to for the management of osteoporosis but at that time we did not have her bone density scan. After receiving bone density scan looks like she has osteopenia but given herunprovoked for the fracture it is possible that her bone quality is not good as her bone density which is why the DEXA scan did not show osteoporosis. I repeated DXA scan at [facility] and it showed normalBMD confirmed by TBS score as well. She is taking 50 mcg of levothyroxine for treatment of hypothyroidism. She received cortisone shot in both feet, and since then pain improved but still present. No falls.No fractures. Supplements: Ca+vit D x 2- (ca-carbonate 1200 mg +800 units) Diet: - cheese few times a week - almond milk occasionally - trying to stay away from wheat and dairy She stopped taking HCTZ after having 24h urine done. Fractures: - non-traumatic left 2nd metatarsal fracture FHX of osteoporosis: mother FHX of hip fracture: no Falls: no Previous bone medications/Duration: fosamax 70 mg weekly for 2 weeks in the past Side effects: worsening acid reflux, achy, fatigue, nausea did not vomit Exercise: diagnosed with lyme 1.5 years ago and since then more sedentary, used to swim, ski Sunlight exposure: Average time spent outside in direct sun a day [] 0-5 min [] 5-10 min [] 11-15 min [] 16-20 min [] 21-25 min [] 26-30 min [x] >30 min Last dental visit: coming up in few months, no major issues Risk factors for osteoporosis: Other risk factors for fracture/osteoporosis are: [] Yes [x] No Smoking, [x] Yes [] No Drinking alcohol. Socially [] Yes [x] No Exercise [] Yes [x] No Stomach or bowel surgery. [] Yes [x] No Loose bowel movements. [x] Yes [] No Loss of height, 1 inch [] Yes [x] No History of kidney stones? For women: Start of menstrual cycle age 15 End of menstrual cycle full hysterectomy age 39 Vit D intake: in ca supplement Ca intake: 1200 mg (2 pills once a day) -diet: Was told to stay away from dairy and wheat, occasional almond milk Daily calcium intake: [] 0-100 mg [] 101-200 mg [] 201-300 mg [] 301-400 mg [] 401-500 mg [] 501-600 mg [] 601-700 mg [x] 701-900 mg [] 901-1100 mg [] 2546-3173 mg [] 5185-1376 mg [] Above 1500 mg ROS: Constitutional: very tired ENT: No dysphagia, dental issues. Cardiovascular: No chest pain or palpitations. Respiratory: No cough, wheezing, shortness of breath. GI: decreased appetite, no nausea, vomiting, diarrhea or constipation. Musculoskeletal: + joint aches, +muscle pain,+ back pain (getting steroid injections) Medications: Current Outpatient Medications on File Prior to Visit Medication Sig Dispense Refill hydroCHLOROthiazide 12.5 mg tablet Take 1 tablet by mouth daily. 90 tablet 3 bempedoic acid (Nexletol) 180 mg tablet Take 1 tablet by mouth daily. (Patient not taking: Reportedon 09/30/2023) 90 tablet 3 calcium carbonate/vitamin D3 (CALCIUM WITH VITAMIN D3 ORAL) Take by mouth daily. fexofenadine (Glory) 180 mg tablet Take 180 mg by mouth daily. levothyroxine (Synthroid) 50 mcg tablet TAKE ONE TABLET BY MOUTH EVERY MORNING ON AN EMPTY STOMACH Vraylar 1.5 mg capsule TAKE ONE CAPSULE BY MOUTH EVERY EVENING WITH FOOD fluticasone propionate (Flonase) 50 mcg/actuation Sanders, Suspension Every 12 hours. meloxicam (Mobic) 7.5 mg tablet montelukast (Singulair) 10 mg tablet 1 tablet. traZODone (Desyrel) 150 mg tablet Take 150 mg by mouth nightly. icosapent ethyL (Vascepa) 1 gram capsule Take 2 g by mouth 2 times daily. (Patient not taking: Reported on 07/30/2023) 360 capsule 3 EPINEPHrine 0.3 mg/0.3 mL Auto-Injector as needed. 3 estradiol (ESTRACE) 0.01 % (0.1 mg/gram) Cream APPLY 1 GRAM VAGINALLY TWICE A WEEK DIRECTED 0 PROVENTIL HFA 90 mcg/actuation HFA Aerosol Inhaler inhale 2 puffs by mouth if needed 0 acetaminophen (TYLENOL) 500 mg Tablet Take 2 tablets by mouth every 6 hours as needed for Pain (forMODERATE pain). 30 tablet 1 No current facility-administered medications on file prior to visit. [] Yes [x] No Glucocorticoid dose. [] Yes [x] No Phenobarbital and phenytoin. When first prescribed? [] Yes [x] No Rosiglitazone, pioglitazone. When first prescribed? [x] Yes [] No PPI. Just prescribed [] Yes [x] No SSRI. When first prescribed? [] Yes [x] No Thiaizdes, loop diuretics. When first prescribed? [x] Yes [] No Estrogens, for 10-15 years [] Yes [x] No Calcitonin. When first prescribed? [x] Yes [] No Alendronate 2 weeks, risedronate, ibandronate. PMH: Patient Active Problem List Diagnosis Code Androgenetic alopecia L64.9 Rosacea L71.9 THERESA (obstructive sleep apnea) G47.33 Osteoarthritis M19.90 Urinary incontinence, urge N39.41 Solar lentigo L81.4 Allergy to insect stings Z91.038 Mild intermittent asthma J45.20 Chronic urticaria L50.8 Varicose veins of left lower extremity with pain I83.812 Venous insufficiency of both lower extremities I87.2 Arthritis of carpometacarpal (CMC) joint of both thumbs M18.0 Hypothyroidism E03.9 Lumbosacral spondylosis without myelopathy M47.817 Mixed anxiety depressive disorder F41.8 Mixed incontinence N39.46 Restless legs syndrome G25.81 Mixed hyperlipidemia E78.2 Urinary urgency R39.15 Allergy: Allergies Allergen Reactions Atorvastatin Calcium Other (See Comments) unspecified Bee Sting [Hymenoptera Allergenic Extract] Other (See Comments) unspecified Celecoxib Other (See Comments) unspecified Morphine Nausea Only Diarrhea and GI upset Oxycodone Hcl Nausea Only Penicillins Nausea Only Potassium Clavulanate Other (See Comments) unspecified Rosuvastatin Calcium Other (See Comments) unspecified Simvastatin Other (See Comments) unspecified Sulfa (Sulfonamide Antibiotics) Other (See Comments) unspecified Sulfamethoxazole Other (See Comments) unspecified Trimethoprim Other (See Comments) Unspecified Fenofibrate Voltaren [Diclofenac Sodium] PSH: no thyroidectomy, parathyroidectomy, bowel resection, bone surgery, pituitary surgery Social History: Social History Socioeconomic History Marital status: Spouse name: Not on file Number of children: 2 Years of education: Not on file Highest education level: Not on file Occupational History 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 Social Determinants of Health Financial Resource Strain: Not on file Food Insecurity: Not on file Transportation Needs: Not on file Physical Activity: Not on file Intimate Partner Violence: Not on file Housing Stability: Not on file Physical Examination: telehealth visit There were no vitals taken for this visit. Labs: From 11/13/2023 Vit D 35 Ca 10.4 (H) (ref range 8.6-10.3) Alb 4.7 PTH 40.4 From 08/06/2023: Calcium, Urine See Note mg/dL 7.4 Comment: NOTE: Reference range not established Calcium, Urine 24 hr 100 - 300 mg/24hr 287 Comment: Reference range assumes a normal daily intake of calcium between 600 - 800 mg/day. Urine Volume mL 3,875 Urine Collection Period Hours 24.0 Component Latest Ref Rng 07/30/2023 Glucose Lvl 65 - 199 mg/dL 98 BUN 8 - 18 mg/dL 10 Creatinine 0.70 - 1.20 mg/dL 0.75 Sodium 135 - 145 mmol/L 140 Potassium 3.5 - 5.0 mmol/L 4.6 Chloride 98 - 107 mmol/L 101 CO2 22 - 31 mmol/L 28 Anion Gap 5 - 15 mmol/L 11 Calcium 8.5 - 10.5 mg/dL 10.1 Total Protein 6.1 - 8.0 g/dL 7.4 Albumin 3.2 - 5.2 g/dL 4.5 AST 0 - 30 unit/L 22 ALT 0 - 30 unit/L 18 Alk Phos 35 - 105 unit/L 77 Total Bilirubin 0.2 - 1.3 mg/dL 0.4 Estimated GFR >=60 mL/min/1.73 m?? 83 25-OH Vit D Total 21 - 100 ng/mL 59 25-OH Vit D Interp Sufficient Free T4 0.93 - 1.70 ng/dL 1.37 TSH 0.27 - 4.20 mcIU/mL 1.96 PTH 15 - 65 pg/mL 43 Phosphorus 2.5 - 4.5 mg/dL 3.5 Magnesium 0.69 - 1.07 mmol/L 0.82 Imaging: DXA scan with TBS score DXA scan 12/27/2022 ([facility]): Assessment: Yessenia Luong is a 73 y.o. female with PMH of HLD, THERESA, OA, asthma, hypothyroidism, osteopenia and unprovoked, non-traumatic left 2nd metatarsal fracture. Her DXA scan from 12/2022 showed osteopenia but repeated DXA scan done at [facility] with TBS scoring it was confirmed she has normal bone mineral density. 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 Will plan to continue monitoring her levels. Advised total calcium intake not to be >1200 mg. Her TFTs are within normal limits while on levothyroxine 50 mcg. Plan: - stopped HCTZ - advised to hydrate well - labs to be done in 3 months Orders Placed This Encounter Procedures PTH Calcium Albumin Level - labs to be sent to [place] - continue vit D - not to take more than 1200 mg of calcium a day (diet +supplement not more 600 mg) RTC in 6 months. Time statement: I spent 30 total minutes on this visit today. The time was spent face to face with the patient, on chart review and documentation, ordering labs/studies and coordination of care. Virginia Everett MD documented in this encounter Plan of Treatment Upcoming Encounters Date Type Department Care Team (Late st Contact Info) Description 03/13/2024 9:45 AM EDT Office Visit Dermatology at [place] [address] [place] [address] Emiliano Salinas MD [address], BAKAR[place] [address] Scheduled Orders Name Type Priority Associated Diagnoses Orde r Schedule PTH Lab Routine Hypercalciuria Expected: 05/02/2024 (Approximate), Expires: 01/30/2025 Calcium Lab Routine Hypercalciuria Expected: 05/02/2024 (Approximate), Expires: 01/30/2025 Albumin Level Lab Routine Hypercalciuria Expected: 05/02/2024, Expires: 11/01/2024 documented as of this encounter Visit Diagnoses Diagnosis Hypercalciuria Unspecified disorders of calcium metabolism documented in this encounter Care Teams Director Of Government Sales Relationship Specialty Start Date End Date Dana Cedillo DO [address] [place] [address] PCP - General Family Medicine 10/16/23 documented as of this encounter
--- OUTSIDE RECORDS SUMMARY | 2024-02-15 13:14 | XMS_ITS | Encounter Summary ---
Author Organization [facility] [place] [address] Care Team Providers Care Sales Center Manager Name Role Phone EverardoDana bergeron Mery ROCHE Primary Care Provider [phone] Encounter Details Date Type Department Care Team (Late st Contact Info) Description 02/07/2024 Telephone Cardiology at [address] [address] Ashlyn Celis, RN Social History Tobacco Use Types Packs/Day [...] Miscellaneous Notes * Telephone Encounter - Ashlyn Celis, RN - 02/07/2024 1:38 PM EDT Re-certification done for 12 months Nexletol Approved prior auth Reference PA number [id number] documented in this encounter Plan of Treatment Upcoming Encounters Date Type Department Care Team (Late st Contact Info) Description 03/13/2024 9:45 AM EDT Office Visit Dermatology at [place] [address] [place] [address] Emiliano Salinas MD [address], BAKARI [place] [address] documented as of this encounter Visit Diagnoses Not on filedocumented in this encounter Care Teams Sales Center Manager Relationship Specialty Start Date End Date Dana Cedillo DO [address] [place] [address] PCP - General Family Medicine 10/16/23 documented as of this encounter
--- OUTSIDE RECORDS SUMMARY | 2024-02-15 13:14 | XMS_ITS | Encounter Summary ---
Author Organization [facility] Address [address] [place] [address] Care Team Providers Care Coding Advisor Name Role Phone Chantell Sharma NP Primary Care Provider [phone] Chantell Sharma CORK W[employer]ER Unavailable [phone] Encounter Details Date Type Department Care Team (Late st Contact Info) Description 06/19/2019 Lab Requisition [facility] Pathology & Laboratory Medicine - [address] [address] Unknown, Provider, Social History Tobacco Use Types Packs/Day Years Used Date Smoking Tobacco: Never Assessed Sex and Gender Information Value Date Recorded Sex Assigned at Not on file Gender Identity Not on file Sexual Orientation Not on file documented as of this encounter Plan of Treatment Not on file documented as of this encounter Procedures Procedure Name Priority Date/Time Associated Diagnosis Comments OVA/PARASITE EXAM Routine 06/19/2019 8:00 EST documented in this encounter Results * OVA/PARASITE EXAM (06/19/2019 8:00 EST) Parasite No ova and parasites seen. 06/22/2019 11:21 EST [facility] Feces 06/19/2019 8:00 EST 06/19/2019 21:45 EST Narrative [facility] - 06/22/2019 11:21 EST (If Cryptosporidium, Cyclospora, or Microsporidium are suspected, specific tests must be requested.) Single negative specimen does not rule out the possibility of a parasitic infection. Provider Unknown MICROBIOLOGY - GIRMA AZEVEDO ORDERABLES [facility] [address] [place] [address] documented in this encounter Visit Diagnoses Not on filedocumented in this encounter Care Teams Coding Advisor Relationship Specialty Start Date End Date Chantell Sharma NP PCP - General 07/22/15 03/18/22 Chantell Sharma NP 07/22/15 03/18/22 documented as of this encounter
--- OUTSIDE RECORDS SUMMARY | 2024-02-15 13:14 | XMS_ITS ---
Author Organization [facility] Address [address] [place] [id number] Care Team Providers Care Attendant Campground Name Role Phone Veronica De Primary Care Provider REASON FOR VISIT med f/u Encounters Encounter Location Date Provider Diagnosis [address] [id number] 09/25/2023 Veronica De Plan Of Treatment No Information Progress Notes * Yessenia ESPARZA SDOB:[birth year] (74 yo F)Acc No.[id number]:09/25/2023 PMM FU Patient:?ARNOLDBetsyLeonela Mamie Provider:?TERESA Haro :1950???Age:73 Y???Sex:Female D ate:09/25/2023 Address:[place], [place] Subjective: * Chief Complaints: * ???1. Med f/u. * Medical History:? Objective: * Vitals:? Assessment: Plan: * Treatment: * * Electronic signature of TERESA Maharaj on 02/15/2024 at 01:12 PM EDT Sign off status: Pending * Provider:?TERESA Haro D ate:?09/25/2023 Generated for Printi ng/Faxing/eTransmitting on:?02/15/2024 01:12 PM EDT
--- OUTSIDE RECORDS SUMMARY | 2024-02-15 13:14 | XMS_ITS | Encounter Summary ---
Author Organization [facility] Address [address] [place] [address] Care Team Providers Care Public Relations Studies Director Name Role Phone Unavailable Primary Care Provider Unavailabl e Encounter Details Date Type Department Care Team (Late st Contact Info) Description 04/09/2002 Results Only [facility] - Maple conversion [address] [place] [address] Neisha Schulte, INSTRUMENTAL TEACHER [address] [place] [address] Social History Tobacco Use Types Packs/Day Years Used Date Smoking Tobacco: Never Assessed Sex and Gender Information Value Date Recorded Sex Assigned at Not on file Gender Identity Not on file Sexual Orientation Not on file documented as of this encounter Plan of Treatment Not on file documented as of this encounter Procedures Procedure Name Priority Date/Time Associated Diagnosis Comments CYTOPATHOLOGY Routine 04/09/2002 0:00 EST documented in this encounter Results * CYTOPATHOLOGY (04/09/2002 0:00 EST) Pathology Report: CYTOPATHOLOGY REPORT Reports generated via electronic interface contain original data; however they are lacking the format of the original report. Caution should be taken when reading/interpreti ng unformatted reports. Name: ? YESSENIA LUONG ? Accession #: ? [id number] : ? 1950 (Age: 52) ??F ?Collect Date: ? 04/09/2002 Location: ? [facility] ? Receive Date: ? 04/13/2002 Provider: ?NEISHA SCHULTE INSTRUMENTAL TEACHER Copy to: ? Specimen/Source: ?ThinPrep Pap Test, Vagina Last Menstrual Period: ? 1989 Treatment History: ? EVERT/BSO ? SPECIMEN ADEQUACY ? Satisfactory for Evaluation - assessment of transformation zone component not applicable ( e.g. atrophy, vaginal sample, hysterectomy) GENERAL CATEGORIZATION ? Negative for Intraepithelial Lesion or Malignancy ? Document reviewed and electronically signed by: ? Christiana Grant, SCT(ASCP) ? Report Date: ??04/15/2002 16:32 End of Report MARTHA THOMPSON 04/09/2002 04/13/2002 Neisha Schulte INSTRUMENTAL TEACHER PATHOLOGY ORDERABLE [facility] [address] [place] [address] documented in this encounter Visit Diagnoses Not on filedocumented in this encounter
--- OUTSIDE RECORDS SUMMARY | 2024-02-15 13:14 | XMS_ITS | Encounter Summary ---
Author Organization [facility] Address [address] [place] [address] Care Team Providers Care Laboratory Supervisor Name Role Phone Unavailable Primary Care Provider Unavailabl e Encounter Details Date Type Department Care Team (Late st Contact Info) Description 06/04/2023 Lab Requisition [facility] Pathology & Laboratory Medicine - [address] [address] Outr Resulting Lab, Provider Social History Tobacco [...] Procedure Name Priority Date/Time Associated Diagnosis Comments TRANSFERRIN Routine 06/04/2023 9:45 EST documented in this encounter Results * TRANSFERRIN (06/04/2023 9:45 EST) Transferrin 248 201 - 352 mg/dL 06/05/2023 8:56 EST [facility] Blood VENOUS BLOOD / Unknown 06/04/2023 9:45 EST 06/04/2023 21:09 EST Provider Outr Resulting Lab CHEMISTRY & BLOOD GAS ORDERABLES [facility] [address] [place] [address] documented in this encounter Visit Diagnoses Not on filedocumented in this encounter
--- OUTSIDE RECORDS SUMMARY | 2024-02-15 13:14 | XMS_ITS | Encounter Summary ---
[place] [address] Care Team Providers Care Flour Mixer Helper Name Role Phone Dana Cedillo DO Primary Care Provider [phone] Reason for Visit * Reason Onset Date Comments Other 11/26/2023 Encounter Details Date Type Department Care Team (Late st Contact Info) Description 11/26/2023 Telephone [place] [id number] Raeann Ortega, RN Other Social History Tobacco Use Types Packs/Day Years [...] encounter Miscellaneous Notes * Telephone Encounter - Harish Alamo - 12/09/2023 12:09 PM EDT Patient wants to know does she want me to get a shot for the bone density? , she normally answerers me really fast and its been 2 weeks and I still haven't heard back , I can do a phone call if need be * Telephone Encounter - Dudley Hanson - 12/05/2023 1:09 PM EDT Patient is following up on test results and wonders if she should start calcium and vitamin D? Patient also wonders if she will get orders for shot to increase bone density? Was report recieved from Dr. Chapa? Please call to discuss. * Telephone Encounter - Raeann Ortega RN - 11/26/2023 9:30 AM EDT Copied from CRM #[id number]. Topic: Specialty Dept CRMs - Test Results >> Nov 25, 2023 10:00 AM Susan Muller wrote: Test Results Request Specialist: Virginia Everett MD Relationship (if other than patient-full name): Self Ordering Provider: Virginia Everett MD Type of Test: 24 Urine test Date of Test: 11/18/23 Where Was This Test Performed: [facility] Patient will be available after 1pm today. Please call back to discuss. documented in this encounter Plan of Treatment Upcoming Encounters Date Type Department Care Team (Late st Contact Info) Description 03/13/2024 9:45 AM EDT Office Visit Dermatology at [place] [address] [place] [address] Emiliano Salinas MD [address], BAKARI [place] [address] documented as of this encounter Visit Diagnoses Not on filedocumented in this encounter Care Teams Flour Mixer Helper Relationship Specialty Start Date End Date Dana Cedillo DO [address] [place] [address] PCP - General Family Medicine 10/16/23 documented as of this encounter
--- OUTSIDE RECORDS SUMMARY | 2024-02-15 13:14 | XMS_ITS | Encounter Summary ---
Author Organization [facility] Address [address] [place] [address] Care Team Providers Care Dry House Attendant Name Role Phone Chantell Sharma BOW [employer]KER [employer]ODUCTION Primary Care Provider [phone] Chantell Sharma [employer] MA[employer]ODUCTION Primary Care Provider [phone] Elier Alvarez MD Unavailable Unavailabl e Chantell Sharma NP Unavailable [phone] Reason for Visit * Reason Onset Date Comments Other 07/21/2015 Encounter Details Date Type Department Care Team (Late st Contact Info) Description 07/21/2015 Telephone [facility] Dermatology 3rd [address] [address] Isaak Lloyd MD Other Social History Tobacco Use Types Packs/Day Years Used Date Smoking Tobacco: Never Assessed Sex and Gender Information Value Date Recorded Sex Assigned at Not on file Gender Identity Not on file Sexual Orientation Not on file documented as of this encounter Miscellaneous Notes * Telephone Encounter - Sinan Ro - 07/21/2015 1108 EST Patient has questions concerning how laser could help with hair thinning due to thyroid disorder. documented in this encounter Plan of Treatment Not on file documented as of this encounter Visit Diagnoses Not on filedocumented in this encounter Care Teams Dry House Attendant Relationship Specialty Start Date End Date Chantell Sharma NP PCP - General 07/21/15 07/21/15 Chantell Sharma NP PCP - General 07/22/15 03/18/22 Elier Alvarez MD 07/21/15 07/21/15 Chantell Sharma NP 07/22/15 03/18/22 documented as of this encounter
--- OUTSIDE RECORDS SUMMARY | 2024-02-15 13:14 | XMS_ITS | Data Portability ---
Author Organization [facility] Address [address] [place] [address] Care Team Providers Care Fiscal Services Director Name Role Phone KENN BRENNER Primary Care Provider Assessment No assessment recorded. Plan of Treatment Reminders Order Date Submit Date Provider Last Modified By Organization Details Last Modified Time Details Appointments None recorded. Lab uric acid, serum or plasma 2022 023 [email or web address] [facility] (Registration ), [address] [place] [address] [place], [address], 3 11:14:57 CBC 2022 023 [email or web address] [facility] (Registration ), [address] [place] [address] [place], [address], 3 16:52:11 iron + total iron-bindin g capacity (TIBC), serum 2022 023 [facility] (Registration ), [address] [place] [address] [place], [address], 4 13:59:15 transferrin , serum 2022 023 [email or web address] [facility] (Registration ), [address] [place] [address] [place], [address], 4 13:59:16 ferritin, serum or plasma 2022 023 [facility] (Registration ), [address] [place] [address] [place], [address], 4 13:59:16 Referral physical therapist referral - For left foot pain? fracture, also chronic back pain 2022 023 [email or web address] [facility], [address] , [place], [address], 4 12:02:56 endocrinolo gy referral - help with thyroid and osteopenia 2022 023 [email or web address] [facility] , [address] [place] [address] [place], [address], 4 11:12:10 Procedures None recorded. Surgeries None recorded. Imaging XR, foot, 3 or more view - left foot: swelling, pain bruising r/o fx, Hx osteopenia 2022 023 [facility] (Radiology), [address] [place] [address] , [facility] [place], [address], 3 13:28:29 US, doppler, venous - r/o DVT Left leg, pain, swelling of foot w/o injury, pain in calf, no swelling, reccomended by cardiology 2022 023 [email or web address] [facility] (Radiology), [address] [place] [address] [place], [address], 3 16:48:48 Medication Orders Celebrex 50 mg capsule 2022 023 DEEPAK [facility], [address] [place], [address], 3 09:34:55 Fosamax 70 mg tablet 2022 023 DEEPAK [facility], [address] [place], [address], 3 09:22:11 Calcium 600 + D(3) 600 mg-10 mcg (400 unit) tablet 2022 023 DEEPAK [facility], [address] [place], [address], 3 09:22:13 Vitamin D3 25 mcg (1,000 unit) capsule 2022 023 DEEPAK [facility], [address] [place], [address], 3 09:22:10 vitamin B complex tablet 2022 023 DEEPAK [facility], [address] [place], [address], 09:26:38 Patient TargetsNo targets recorded. Patient Instructions Encounter Date Encounter Id Patient Instructions Last Modified By Organization Details Last Modified Time 05/21/2023 [id number] Yessenia Luong expect a call from [facility] re: Left foot xray and left calf US, hold Vyvanse, will check uric acid level today and blood counts- will mail home results, call if they are abnormal follow up at next appt upcoming, f/u on the phone after imaging Not available 05/21/2023 14:08:05 06/04/2023 [id number] Yessenia Moreland ; start fosamax for osteopenia, and vit D and calcium, checking iron labs, start vit B, celebrex for joint pain follow up in 1 month Not available 06/04/2023 09:38:47 Reason for Referral Orthopedic Surgeon Referral for Pain in left foot Referring Physician: Kenn Brenner, Family Medicine, Encounter Date: 05/22/2023 Endocrinology Referral for H ypothyroidism help with thyroid and osteopenia Referring Physician: Kenn Brenner Family [facility], Encounter Date: 06/04/2023 Physical Therapist Referral for Pain in left foot For left foot pain? fracture, also chronic back pain Referring Physician: Kenn Brenner Family [facility], Encounter Date: 06/04/2023 Endocrinology Referral for B one density finding HX spontaneous fracture, AE to fosomax looking for alternative options Referring Physician: Kenn Brenner [facility], Encounter Date: 07/04/2023 Urologist Referral for Urina ry incontinence Referring Physician: Kenn Brenner [facility], Encounter Date: 07/08/2023 Physical Therapist Referral for Vertigo UNDERWENT DIAGNOSTIC W/U THROUGH ED 08/27/23 Referring Physician: Julito Jorgensen [facility], Encounter Date: 08/28/2023 Results Created Date Observation Date Name Description Value Unit Range Abnormal Flag Note LastModifiedBy Organization Detail LastModifiedTime 05/17/20 23 05/17/2023 VITAM IN D 25 TOTAL vitamin D 25 total 47.0 NG/mL 30-100 normal Refer ence Guide lines : Defic ient: <10 ng/ml Insuf ficie nt: 10-30 ng/ml Suffi cient : 30-10 0 ng/ml Toxic : >100 ng/ml Not Available [address] [place], [address] 05/17/2023 16:12:29 05/21/20 23 05/21/2023 COMPL ETE BLOOD COUNT NO DIFF WBC 6.05 10_3/ uL 4.4-10 .8 normal Not Available [address] [place], [address] 05/21/2023 16:52:11 05/21/20 23 05/21/2023 COMPL ETE BLOOD COUNT NO DIFF RBC 3.86 10_6/ uL 3.93-5 .22 low Not Available [address] [place], [address] 05/21/2023 16:52:11 05/21/20 23 05/21/2023 COMPL ETE BLOOD COUNT NO DIFF HGB 11.9 g/dL 11.2-1 5.7 normal Not Available [address] [place], [address] 05/21/2023 16:52:11 05/21/20 23 05/21/2023 COMPL ETE BLOOD COUNT NO DIFF HCT 35.6 % 36.0-4 6.0 low Not Available [address] [place], [address] 05/21/2023 16:52:11 05/21/20 23 05/21/2023 COMPL ETE BLOOD COUNT NO DIFF MCV 92 fL 80-95 normal Not Available [address] [place], [address] 05/21/2023 16:52:11 05/21/20 23 05/21/2023 COMPL ETE BLOOD COUNT NO DIFF MCH 30.8 pg 27.0-3 3.0 normal Not Available [address] [place], [address] 05/21/2023 16:52:11 05/21/20 23 05/21/2023 COMPL ETE BLOOD COUNT NO DIFF MCHC 33.4 % 32.0-3 6.0 normal Not Available [address] [place], [address] 05/21/2023 16:52:11 05/21/20 23 05/21/2023 COMPL ETE BLOOD COUNT NO DIFF RDW 11.9 % 11.7-1 4.6 normal Not Available [address] [place], [address] 05/21/2023 16:52:11 05/21/20 23 05/21/2023 COMPL ETE BLOOD COUNT NO DIFF platelet count 413 10_3/ uL 130-40 0 high Not Available [address] [place], [address] 05/21/2023 16:52:11 05/21/20 23 05/21/2023 COMPL ETE BLOOD COUNT NO DIFF MPV 9.7 fL 8.0-11 .0 normal Not Available [address] [place], [address] 05/21/2023 16:52:11 05/21/20 23 05/21/2023 URIC ACID uric acid 5.7 mg/dL 2.6-6. 0 normal Not Available [address] [place], [address] 05/21/2023 18:59:20 06/04/20 23 06/04/2023 IRON/ IBCT iron 72 ug/dL 50-170 normal Not Available Dinorah tucker [address] [place], [address] 06/04/2023 17:30:26 06/04/20 23 06/04/2023 IRON/ IBCT total iron binding capacity 312 ug/dL 250-45 0 normal Not Available [address] [place], [address] 06/04/2023 17:30:26 06/04/20 23 06/04/2023 IRON/ IBCT transferrin sat 23 % 15-50 normal Not Available Nathalia gabriel [address] [place], [address] 06/04/2023 17:30:26 06/04/20 23 06/04/2023 OMID TIN ferritin 121 NG/mL 8-252 normal Not Available [address] [place], [address] 06/04/2023 18:08:25 06/04/20 23 06/05/2023 TRANS OMID N transferrin 248 mg/dL 201-35 2 Test perfo rmed or refer red by [facility] [address], [place] [address] Not Available [address] [place], [address] 06/05/2023 09:19:24 08/05/19 24 08/05/2023 CREAT ININE 24 HR URINE total volume 3785 mL Not Available [address] [place], [address] 08/05/2023 16:14:10 08/05/19 24 08/05/2023 CREAT ININE 24 HR URINE creatinine,u rine 14.37 mg/dL No Refer ence Range estab lishe d Not Available [address] [place], [address] 08/05/2023 16:14:10 08/05/19 24 08/05/2023 CREAT ININE 24 HR URINE creatinine,2 4HR ur 0.53 g/24H R 0.60-1 .80 low Not Available [address] [place], [address] 08/05/2023 16:14:10 08/05/19 24 08/06/2023 CALCI UM URINE 24HR calcium urine 7.4 mg/dL see note NOTE: Refer ence range not estab lishe d Not Available [address] [place], [address] 08/06/2023 11:23:36 08/05/19 24 08/06/2023 CALCI UM URINE 24HR calcium urine 24 HR 287 mg/24 HR 100-30 0 Refer ence range assum es a dirk l daily intak e of calci um betwe en 600 - 800 mg/da y. Not Available [address] [place], [address] 08/06/2023 11:23:36 08/05/19 24 08/06/2023 CALCI UM URINE 24HR urine collection period 24.0 hours Test perfo rmed or refer red by [facility] [address] [place] [address] Not Available [address] [place], [address] 08/06/2023 11:23:36 08/05/19 24 08/06/2023 CALCI UM URINE 24HR timed urine volume 3875 mL Not Available [address] [place], [address] 08/06/2023 11:23:36 05/22/20 23 05/22/2023 ultra sound imagi ng repor t Patitracie t Name: Gaby Leonel neal Mamie Unit #: [id number] Loc: DI Orderi ng Provid er: Eileen Brenner Accoun t #: [id number] Status : REG CLI Primar y Care Provid er: Eileen Brenner Date of Exam: Sex: F Admiss ion Date: : 1949 Age: 73 Exam(s ) US LOWER EXTREM ITY VENOUS LT EXAM: US LOWER EXTREM ITY VENOUS LT CLINIC AL HISTOR Y: SWELLI NG AND PAIN LT LEG,? DVT,m7 9.89. TECHNI QUE: Lower extrem ity venous ultras ound perfor med using graysc milton, color- flow, and spectr al Dopple r analys is. COMPAR LEEROY: No exams were availa ble for compar leeroy FINDIN GS: The common femora l, femora l and poplit eal veins demons trate normal compre ssibil ity, augmen tation , and color Dopple r. The supply chain tech ior tibial veins are patent . No saphen ous vein thromb osis or other superf icial venous thromb osis is seen. No hemato ma or Mariscal' s cyst is seen. IMPRES KATHIE: Negati ve lower extrem ity ultras ound. No eviden ce of DVT. DATA REPOSI TORY: Ordere d By: Eileen Brenner CC: ------ ------ ------ ------ ------ ------ ------ ------ ------ ------ ------ ------ - Dictat ed By: Hardeep Barillas [id number] Transc ribed By: Alice Tracy 113 This is privil eged, confid ential inform ation intend ed only for the provid er named. Any use or distri bution by any person other than this provid er is strict ly prohib ited. If you receiv e this report in error, please notify us immedi ately at and return the origin al report to us at the addres s above. Thank- you. [email or web address] [facility] [address], [place], [address] 05/22/2023 12:00:16 05/22/2005/22/2023 XR, foot, 3 or more view No observ ation record ed. the Not Available 2022 13:49:53 05/22/20 23 05/22/2023 x-ray imagi balaji Bae t Name: Leonel Pandya Unit #: [id number] Loc: DI Rigo carpio Provid er: Eileen Brenner Accoun t #: [id number] Status : REG CLI Primar y Care Provid er: Simonejose mEileen Date of Exam: Sex: F Admiss ion Date: : 1949 Age: 73 Exam(s ) XR FOOT LT COMPLE TE EXAM: XR FOOT LT COMPLE TE CLINIC AL HISTOR Y: SWELLI NG LT FOOT, M79.89 ,PAIN. TECHNI QUE: 2D digita l imagin g was perfor med. Three views. COMPAR LEEROY: CR XR FOOT 3 VIEW LEFT from 2022 FINDIN GS: BONES: Nondis placed fractu re seen at base 2nd metata rsal. No defini te involv ement of the articu lar surfac e. No additi onal fractu res. No bony destru ctive lesion is seen. JOINTS : No disloc ation presen t. Mild degene rative change s 1st MTP joint. SOFT TISSUE : Mild dorsal swelli ng. IMPRES KATHIE: nondis placed fractu re base of 2nd metata rsal. DATA REPOSI TORY: RADIAT ION DOSE DELIVE RED: Ordere d By: Eileen Brenner CC: ------ ------ ------ ------ ------ ------ ------ ------ ------ ------ ------ ------ - Dictat ed By: Hardeep Barillas [id number] Transc ribed By: Alice Tracy 1153 This is privil eged, confid ential inform ation intend ed only for the provid er named. Any use or distri bution by any person other than this provid er is strict ly prohib ited. If you receiv e this report in error, please notify us immedi ately at and return the origin al report to us at the addres s above. Thank- you. [facility] [address] [place], [address] 05/23/2023 10:27:45 05/28/20 23 05/28/2023 x-ray imagi ng repor t Catalino brantley Name: Leonel Pandya Unit #: [id number] Loc: SUNG Orderi ng Provid er: Timur Salgado M.D. Accoun t #: [id number] Status : REG CLI Primar y Care Provid er: Eileen Brenner mag Date of Exam: Sex: F Admiss ion Date: : 1949 Age: 73 Exam(s ) XR FOOT LT COMPLE TE EXAM: XR FOOT LT COMPLE TE CLINIC AL HISTOR Y: evalua te. TECHNI QUE: 2D digita l imagin g was perfor med. COMPAR LEEROY: CR XR FOOT LT COMPLE TE from 2022 FINDIN GS: 3 views The nondis placed stress fractu re line in the proxim al half of the 2nd metata rsal appear s unchan ged. Fractu re line is still visibl e. There is no obviou s callus format ion. No osseou s lesion at this level nor elsewh ere in the foot. There is no diasta sis of the Lisfra nc joint. IMPRES KATHIE: No change in the appear ance of the fractu re line in the proxim al half of of the 2nd metata rsal when compar ed to 2022. No signif icant displa cement . DATA REPOSI TORY: RADIAT ION DOSE DELIVE RED: Ordere d By: Timur Salgado M.D. CC: ------ ------ ------ ------ ------ ------ ------ ------ ------ ------ ------ ------ - Dictat ed By: Kerwin Tay M.D. [id number] 105 Transc ribed By: Jasvir FONG,How alejo 105 This is privil eged, confid ential inform ation intend ed only for the provid er named. Any use or distri bution by any person other than this provid er is strict ly prohib ited. If you receiv e this report in error, please notify us immedi amanuelly at and return the origin al report to us at the addres s above. Thank- you. [facility] [address] [place], [address] 05/28/2023 12:22:46 07/16/19 24 07/16/2023 x-ray imagi ng repor t Patitracie t Name: Leonel Pandya Unit #: [id number] Loc: DIORS Orderi ng Provid er: Timur Salgado M.D. Accoun t #: [id number] Status : REG CLI Primar y Care Provid er: Eileen Brenner Date of Exam: Sex: F Admiss ion Date: : 1949 Age: 73 Exam(s ) XR FOOT LT COMPLE TE EXAM: XR FOOT LT COMPLE TE CLINIC AL HISTOR Y: F/U FRACTU RE. TECHNI QUE: 2D digita l imagin g was perfor med. Three views. COMPAR LEEROY: CR XR FOOT LT COMPLE TE from 2022 FINDIN GS: BONES: Callus format ion is now seen the fractu re at the base of the 2nd metata rsal. Fractu re alignm ent is unchan ged. No additi onal fractu res identi fied. No bony destru ctive lesion is seen. JOINTS : No disloc ation presen t. SOFT TISSUE : Normal . IMPRES KATHIE: Healin g fractu re 2nd metata rsal. DATA REPOSI TORY: RADIAT ION DOSE DELIVE RED: Ordere d By: Timur Salgado M.D. CC: ------ ------ ------ ------ ------ ------ ------ ------ ------ ------ ------ ------ - Dictat ed By: Hardeep Barillas [id number] Transc ribed By: Alice Tracy 1311 This is privil eged, confid ential inform ation intend ed only for the provid er named. Any use or distri bution by any person other than this provid er is strict ly prohib ited. If you receiv e this report in error, please notify us immedi ately at and return the origin al report to us at the addres s above. Thank- you. [facility] [address], [place], [address] 07/16/2023 13:27:22 09/18/19 24 09/18/2023 x-ray imagi ng joya brantley Name: Leonel Pandya Unit #: [id number] Loc: DIORS Orderi ng Provid er: Timur Salgado M.D. Accoun t #: [id number] Status : REG CLI Primar y Care Provid er: Eileen Brenner Date of Exam: Sex: F Admiss ion Date: : 1949 Age: 73 Exam(s ) XR FOOT LT COMPLE TE EXAM: XR FOOT LT COMPLE TE CLINIC AL HISTOR Y: F/U FRACTU RE. TECHNI QUE: 2D digita l imagin g was perfor med. Three views. COMPAR LEEROY: CR XR FOOT LT COMPLE TE from 2023 FINDIN GS: BONES: contin ued healin g at fractu re at base of 2nd metata rsal. No bony destru ctive lesion is seen. JOINTS : No disloc ation presen t. SOFT TISSUE : Normal . IMPRES KATHIE: Healin g fractu re of 2nd metata rsal DATA REPOSI TORY: RADIAT ION DOSE DELIVE RED: Ordere d By: Timur Salgado M.D. CC: ------ ------ ------ ------ ------ ------ ------ ------ ------ ------ ------ ------ - Dictat ed By: Hardeep Barillas [id number] 161 Transc ribed By: Alice Tracy 161 This is privil eged, confid ential inform ation intend ed only for the provid er named. Any use or distri bution by any person other than this provid er is strict ly prohib ited. If you receiv e this report in error, please notify us immedi ately at and return the origin al report to us at the addres s above. Thank- you. [email or web address] [place] [address], [place], [address] 09/19/2023 09:19:37 12/02/19 24 05/28/2023 x-ray imagi ng repor t Patitracie t Name: Leonel Pandya Unit #: [id number] Loc: DIORS Orderi ng Provid er: Timur Salgado M.D. Accoun t #: [id number] Status : DEP CLI Primar y Care Provid er: [facility],T mag Date of Exam: 05/10 03/02 Sex: F Admiss ion Date: : 1949 Age: 73 Addend a: Exam(s ) XR FOOT LT COMPLE TE ADDEND UM: The images were review ed. I agree with the mikhail gs and impres kathie below. Dictat ed By: Hardeep Barillas Hardeep Barillas 1309 Transc ribed By: Alice Tracy Exam(s ) XR FOOT LT COMPLE TE EXAM: XR FOOT LT COMPLE TE CLINIC AL HISTOR Y: evalua te. TECHNI QUE: 2D digita l imagin g was perfor med. COMPAR LEEROY: CR XR FOOT LT COMPLE TE from 2022 FINDIN GS: 3 views The nondis placed stress fractu re line in the proxim al half of the 2nd metata rsal appear s unchan ged. Fractu re line is still visibl e. There is no obviou s callus format ion. No osseou s lesion at this level nor elsewh ere in the foot. There is no diasta sis of the Lisfra nc joint. IMPRES KATHIE: No change in the appear ance of the fractu re line in the proxim al half of of the 2nd metata rsal when compar ed to 2022. No signif icant displa cement . DATA REPOSI TORY: RADIAT ION DOSE DELIVE RED: Ordere d By: Timur Salgado M.D. CC: ------ ------ ------ ------ ------ ------ ------ ------ ------ ------ ------ ------ - Dictat ed By: Kerwin Tay M.D. 1054 105 Transc ribed By: Jasvir FONG,Román alejo 1054 This is privil eged, confid ential inform ation intend ed only for the provid er named. Any use or distri bution by any person other than this provid er is strict ly prohib ited. If you receiv e this report in error, please notify us immedi ately at and return the origin al report to us at the addres s above. Thank- you. [email or web address] [facility] [address], [place], [address] 12/06/2023 17:22:48 Result Notes None recorded. Problems Name Problem SNOMED Code Status Onset Date Resolution Date Notes Provider Name and Address Organization Details Recorded Time Obesity 827654361 Active 200803/02/20 20 - Comments only - Juan Smith MD - Had good effect with just naltrexo ne even without bupropri on. I'm willing to represcr aki this. Problem Code: E66.9; Problem Code Type: ICD-10; Not Available [facility] 3 03:58:41 Major depressi on, single episode 42117771 Active 200907/19/19 21 - Comments only - Juan Smith MD - symptoms mild but persiste nt. She would like to try SSRI again, try sertrlin e and follow. Problem Code: F32.9; Problem Code Type: ICD-10; Not Available [facility] 3 03:58:41 Anxiety disorder 735728954 Active 200711/20/19 20 - Comments only - Geri Soares BUSINESS INITIATIVES MANAGER - increase d due to COVID-19 . Encourag ed continue d yoga, mindfuln ess techniqu es such as meditati on, and aromathe rapy with lavendar oil before bedtime to help wind down the mind and body. Problem Code: F41.9; Problem Code Type: ICD-10; Not Available [facility] 3 03:58:42 Pure hypercho lesterol emia 705701573 Active 200711/02/19 21 - Comments only - Juan Smith MD - Reviewed cardiolo gy notes. LDL much better with med combinat ion, discusse d she should take the highest doses she can tolerate . Problem Code: E78.0; Problem Code Type: ICD-10; Not Available [facility] 3 03:58:42 Allergic rhinitis 28373085 Active 199804/14/20 18 - Comments only - Juan Smith MD - Seeing allergis t. Had liver testing in June and was normal. I don't think itching related to liver. Problem Code: J30.9; Problem Code Type: ICD-10; Not Available [facility] 3 03:58:42 Insomnia 198739098 Active 200906/16/19 20 - Comments only - Juan Smith MD - Getting to sleep well and sleeping 9 hours, try cutting back trazodon e. Problem Code: G47.00; Problem Code Type: ICD-10; Not Available [facility] 3 03:58:42 Obstruct aide sleep apnea syndrome 03823785 Active 201104/02/20 17 - Comments only - Juan Smith MD - getting fitted for oral applianc e with dentist in [place]. 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 Active 201403/02/20 20 - Comments only - Juan Smith MD - on 50mcg LT4, recheck TSH/refl ex today Problem Code: E03.9; Problem Code Type: ICD-10; Not Available [facility] 3 03:58:42 History of nutritio nal disorder 225644757 Active 2014 Not Available [facility] 3 03:58:42 Heart murmur 60045010 Active 2014 Problem Code: R01.1; Problem Code Type: ICD-10; Not Available [facility] 3 03:58:42 Restless legs 14003072 Active 2014 Problem Code: G25.81; Problem Code Type: ICD-10; Not Available [facility] 3 03:58:42 Cosmetic surgery Completed 201508/26/2015 Problem Code: Z41.1; Problem Code Type: ICD-10; Not Available [facility] 3 03:58:42 Increase d frequenc y of urinatio n 320382418 Completed 201510/18/2015 Problem Code: R35.0; Problem Code Type: ICD-10; Not Available [facility] 3 03:58:43 History and physical examinat ion, administ ratishivani Completed 201512/08/2015 Problem Code: Z02.89; Problem Code Type: ICD-10; Not Available [facility] 3 03:58:43 Disorder associat ed with menstrua tion AND/OR menopaus e 445747238 Active 201502/20/20 18 - Comments only - Juan Smith MD - Would like to use premarin cream. Has used very similar products in past. Reviewed risks includin g endometr ial cancer and blood clots and possibly [place], though risk low. She would like to try. Problem Code: N95.9; Problem Code Type: ICD-10; Not Available [facility] 3 03:58:43 Chronic allergic otitis media 81011877 Active 201604/02/20 17 - Comments only - Juan Smith MD - Refilled ofloxaci n in case infectio n recurs while in remote setting. Has worked in past Problem Code: H65.419; Problem Code Type: ICD-10; Not Available [facility] 3 03:58:43 Motion sickness 57776917 Active 201602/14/20 17 - Comments only - Jaun Smith MD - Going on cruise. Can use scopolam ine patch. Discusse d ADRs. Problem Code: T75.3xxS ; Problem Code Type: ICD-10; Not Available [facility] 3 03:58:43 Pain of joint of knee 0996936766 Active 201603/02/20 20 - Comments only - Juan Smith MD - likely OA, assess with XR, consider ortho if severe. PT if patient willing. Problem Code: M25.569; Problem Code Type: ICD-10; Not Available [facility] 3 03:58:43 Urge incontin ence of urine 53327033 Active 201707/19/19 21 - Comments only - Juan Smith MD - Improved with tolterid ine and topical estrogen . Discusse d antichol inergic ADRs, she plans to try to come off tolterid ine after another month. Problem Code: N39.41; Problem Code Type: ICD-10; Not Available [facility] 3 03:58:43 Diarrhea 86003646 Active 201806/16/19 20 - Comments only - Juan Smith MD - Intermit tent symptoms , not severe. I'm not sure O&P would be producti ve at this point unless symptoms worsen Not Available [facility] 3 03:58:43 Vitamin D deficien cy [id number] Active 201803/02/20 20 - Comments only - Juan Smith MD - recheck with labs. Problem Code: E55.9; Problem Code Type: ICD-10; Not Available [facility] 3 03:58:44 Fatigue 73267621 Active 201803/19/20 19 - Comments only - Juan Smith MD - We discusse d possible causes for fatigue. SHe has noted increase ad symptoms since late spring, and she did have a rash/meghann lulitis that was possibly lyme in November. She has some ongoing arthralg ias but no signs of inflamma tory arthriti ts. SHe has a h/o mild anemia. Normal recent CMP, TSH Will get CBC, lyme screen. I add B12 has h/o gastriti s as well. May be related to depressi on but she would like to clarify these labs first. We discusse d testing for immunobl ot without initial screen for lyme is inapprop riate and can be misleadi ng. I recommen ded she not take antibiot ics unless appropri ate tests indicate active disease. Problem Code: R53.83; Problem Code Type: ICD-10; Not Available [facility] 3 03:58:44 Gastroes ophageal reflux disease without esophagi tis 557124523 Active 201906/16/19 20 - Comments only - Juan Smith MD - mild symptoms , discusse d managmen t options Problem Code: K21.9; Problem Code Type: ICD-10; Not Available [facility] 3 03:58:44 Insect bite Completed 201911/21/2019 11/20/19 20 - Comments only - Geri Soares BUSINESS INITIATIVES MANAGER - Possibly unattach ed tick; pt did not bring insect in to be examined (it flushed down the shower drain). Explaine d that this does not meet CDC guidelin es for Lyme prophyla xis (due to lack of engorged tick and timeline ). Pt agreeabl e. Not Available [facility] 3 03:58:44 Screenin g for malignan t neoplasm of breast Completed 201903/03/2020 Problem Code: Z12.39; Problem Code Type: ICD-10; Not Available [facility] 3 03:58:44 Spasm 30275066 Active 2019 Problem Code: R25.2; Problem Code Type: ICD-10; Not Available [facility] 3 03:58:44 Biceps tendinit is 876291940 Active 2019 Problem Code: M75.21; Problem Code Type: ICD-10; Not Available [facility] 3 03:58:44 Breast composit ion 382519165 Active 2019 Not Available [facility] 3 03:58:45 Idiopath ic osteoart hritis 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 Problem Code: M18.11; Problem Code Type: ICD-10; Not Available [facility] 3 03:58:45 Anemia 158683671 Active 202011/02/19 21 - Comments only - Juan Smith MD - Discusse d. MCV high normal. Recent normal B12. Alcohol slightly higher than ideal levels, she will try to stop. High RDW could reflect reticulo cytosis, blood loss? Get iron levels and iFOB Problem Code: D64.9; Problem Code Type: ICD-10; Not Available [facility] 3 03:58:45 Adult health examinat ion Active 2020 Problem Code: Z00.00; Problem Code Type: ICD-10; Not Available [facility] 3 03:58:45 Calcium deposit in bursa 869117144 Active 202011/02/19 21 - Comments only - Juan Smith MD - We discusse d her calcium levels have been normal, calcium dopositi on is typicall y a result of inflamma tion rather than the cause. Given her concern, will get ionized calcium to varify she doesn't have high circulat ing calcium. Problem Code: M71.40; Problem Code Type: ICD-10; Not Available [facility] 3 03:58:45 Spinal stenosis 80744634 Active 2022 Problem Code: M48.00; Problem Code Type: ICD-10; Not Available [facility] 3 03:58:45 History of infectio us disease 810562063 Active 2022 Problem Code: Z86.19; Problem Code Type: ICD-10; Not Available [facility] 3 03:58:46 Bone density finding 039631985 Active 2022 Problem Code: M85.80; Problem Code Type: ICD-10; Not Available [facility] 3 03:58:46 Pain in finger 30925136 Active 2022 Problem Code: M79.646; Problem Code Type: ICD-10; Not Available [facility] 3 03:58:46 Overweig ht 996660988 Completed 201402/24/2016 Problem Code: E66.3; Problem Code Type: ICD-10; Not Available [facility] 3 03:58:48 Cellulit is of left upper limb [id number] 148172 Completed 201803/06/2023 11/27/19 19 - Comments only - Juan Smith MD - Most c/w bacteria l cellulit is with some tracking up arm, but acute lyme in DDX as may have started with tick bite. Will cover with doxycycl ine x 2 weeks in case, RTC if not improvin g. Problem Code: L03.114; Problem Code Type: ICD-10; Not Available [facility] 3 03:58:48 Allergic rhinitis 63725238 Completed 200704/16/2016 Not Available [facility] 3 03:58:48 Anxiety state 651410169 Completed 200703/06/2023 Not Available [facility] 3 03:58:49 Screenin g for disorder Completed 201703/18/2019 Problem Code: Z13.9; Problem Code Type: ICD-10; Not Available [facility] 3 03:58:49 Mixed hyperlip idemia 393212159 Completed 200702/24/2016 Problem Code: E78.2; Problem Code Type: ICD-10; Not Available [facility] 3 03:58:49 Gastriti s 1553308 Completed 201809/01/2018 Problem Code: K29.70; Problem Code Type: ICD-10; Not Available [facility] 3 03:58:49 Cataract 877210169 Completed 201809/01/2018 Problem Code: H26.9; Problem Code Type: ICD-10; Not Available [facility] 3 03:58:50 Acute sinusiti s 88265260 Completed 201809/05/2018 Problem Code: J01.90; Problem Code Type: ICD-10; Not Available [facility] 3 03:58:51 Screenin g for malignan t neoplasm of colon Completed 201803/19/2019 Problem Code: Z12.11; Problem Code Type: ICD-10; Not Available [facility] 3 03:58:51 Pre-surg norberto evaluati on Completed 201402/24/2016 Problem Code: Z01.818; Problem Code Type: ICD-10; Not Available [facility] 3 03:58:51 Allergic disposit ion 464074213 Completed 199803/06/2023 Not Available [facility] 3 03:58:52 Generali zed hyperhid rosis 527826503 Completed 201402/24/2016 Problem Code: R61; Problem Code Type: ICD-10; Not Available [facility] 3 03:58:52 Dyspnea 275029148 Completed 201706/16/2018 Problem Code: R06.02; Problem Code Type: ICD-10; Not Available [facility] 3 03:58:52 Pain in finger 79280650 Completed 201903/06/2023 Problem Code: M79.646; Problem Code Type: ICD-10; Not Available [facility] 3 03:58:53 Disorder of hematopo ietic structur e 798821692 Completed 202003/06/2023 Problem Code: D75.89; Problem Code Type: ICD-10; Not Available [facility] 3 03:58:53 Dyspnea 867739098 Completed 201504/02/2017 Problem Code: R06.02; Problem Code Type: ICD-10; Not Available [facility] 3 03:58:53 Hypertro phy of breast 451013848 Completed 201402/24/2016 Problem Code: N62; Problem Code Type: ICD-10; Not Available [facility] 3 03:58:54 Pain in thoracic spine 862135191 Completed 201402/24/2016 Problem Code: M54.9; Problem Code Type: ICD-10; Not Available [facility] 3 03:58:54 Cough 41409339 Completed 201402/24/2016 Problem Code: R05; Problem Code Type: ICD-10; Not Available [facility] 3 03:58:55 Localize d eruption of skin 827816091 Completed 201803/02/2020 Problem Code: R21; Problem Code Type: ICD-10; Not Available [facility] 3 03:58:55 Nausea 888666488 Completed 201402/24/2016 Problem Code: R11.0; Problem Code Type: ICD-10; Not Available [facility] 3 03:58:55 Neck pain 38646306 Completed 201402/24/2016 Problem Code: M54.2; Problem Code Type: ICD-10; Not Available [facility] 3 03:58:56 Depressi ve disorder 01432465 Completed 200903/06/2023 Problem Code: 311; Problem Code Type: ICD-9; Not Available [facility] 3 03:58:57 Worried well 67008843 Completed 200802/24/2016 Not Available [facility] 3 03:58:57 Notes:*Problem Name: H/o Ane marybeth *ICD-10 Codes: *Problem Status: inactive *Comments: *Note Date: 10/08/1998 *Problem Name: H/o Anemia *ICD-10 Codes: *Problem Status: inactive *Comments: *Problem Code Type: CPT *Note Date: 10/08/1998 Problem Notes Documentation Provider Name and Address Organization Details Recorded Time Physical Therapist Consult Note : Physical Therapy Initial Eval PATIENT NAME: Yessenia Luong UNIT #: [id number] ADMITTING PROVIDER: ALENA SIMON PT, DPT PRIMARY CARE PROVIDER: Kenn Brenner ADMIT: 09/24/23 : 1950 Supervising Provider: Alena Simon PT Diagnosis: unilateral vestibular dysfunction, imbalance MD Diagnosis: gait imbalance, vertigo Weeks Elapsed: week(s) and 0 day(s) Patient Location: Physical Therapy - [facility] Referring Provider: Ted Corrales MD Date of Service: September 24, 2023 12:08 pm PT Notes Visit Reasons: PT Gait Imbalance; vertigo Physical Therapy Initial Evaluation Date: 09/24/23 Certification Period: From 09/24/23 through 12/24/23 I certify the need for these services as being medically necessary and skilled as furnished under this plan of treatment while under my care. Please sign and return within 14 days if you agree wit the above plan of care. Thank you for this referral! Referring Physician: __ Date: Subjective: Yessenia presents with c/o dizziness. She states that she was vacationing in [place] for the month of August, and had terrible allergies while she was there. She developed 2 ear infections, which eventually progressed to severe imbalance and room spinning dizziness. She had intense symptoms, including diarrhea and vomiting, for about a week. She was placed on dramamine and Meclizine, and symptoms gradually improved. Since then, she has persistent dizziness, which she describes as being off balance with a sea-sickness sensation and nausea. Date of Onset: ???approx 1 month ago Quality: room spinning, off balance Typical Duration of symptoms: ???1 week of severe symptoms, then improving Illness preceding onset: yes Previous Episodes: no Exacerbating Factors: getting out of bed Nausea/Vomiting: yes Hearing Loss: no Tinnitus: no Fullness in Ear: no Imbalance: yes Red Flags: ? Visual changes: no ?Dysphagia or Dysarthria: no ?Facial Weakness: no ?Incoordina tion: no ?Loss of consciousness: no Prior Level of Function: Active and independent. Reduced activity in recent months due to recent foot fx. Current Level of Function: Limited activity due to recent foot fracture (currently being seen by BLANK Manuel). Medications: reviewed from EMR. Not currently taking Meclizine or dramamine, although did get some relief with use initially Dizziness Handicap Index: 44% impairment Objective: Posture: Mildly increased thoracic kyphosis. Wide JAVID in static standing. Observation: Reaches for furniture during transfers and ambulation. Gait: ?Straight plane ambulation: mild ataxia with path deviation ?Dynamic Gait (Walk with Head Turns): stops walking while turning, lateral stepping strategies Cervical Screen: Cervical ROM: WFL Vertebral Artery Test: (-) to each side Special Tests: HINTS test: Test Central Peripheral Results Head impulse Normal; able to maintain focus Corrective saccades (right or left) (+) to the left Nystagmus (assess at 30* off center gaze right, left and vertical) Vertical or changing in direction based on gaze direction Absent or unidirectional right beat in right ear Test of Skew Abnormal correction No correction (-) Occulomotor Testing: Smooth Pursuit: normal Saccades: normal VOR Testing: ?Head Thrust: (+) to the left, with corrective saccades noted 3/3 trials? Postural Stability/VSR Testing: Wilner Sensory Organization Performance Test for Vestibulopathy: (+) for unilateral vestibular dysfunction Position 1 (Rhomberg): sway Position 2 (Rhomberg, eyes closed): sway Position 3 (modified tandem): sway Position 4 (modified tandem, eyes closed): sway Position 5 (stand on foam): sway bilat Position 6 (stand on foam, eyes closed): fall left Position 7 (Fakuda): (+) > 30* turn to the left Identification of BPPV: ? Meenakshi-Halpike (BPPV-PC): (-) bilat ??? Lateral Body Position: (-) on each side Treatment: Today's session consisted of evaluation followed by treatment as noted below. Discussed appropriate treatment planning, with patient verbalizing agreement. IE:??? [id number] Neuromuscular Re-education ([id number]): Vestibular Rehabilitation Training (VRT): Access Code: [email or web address] URL: [email or web address] Date: 09/24/2023 Prepared by: Alena Simon Exercises - Corner Balance Feet Together With Eyes Closed - 1 x daily - 7 x weekly - 1 sets - 3 reps - 30 seconds hold - Standing Gaze Stabilization with Head Rotation - 1 x daily - 7 x weekly - 3 sets - 10 reps - Standing Gaze Stabilization with Head Nod - 1 x daily - 7 x weekly - 3 sets - 10 reps - Walking with Head Rotation - 1 x daily - 7 x weekly - 3 sets - 10 reps Direct treatment time:??? 50 minutes Total treatment time:??? 50 minutes ASSESSMENT:??? Patient is a 73-year-old female, referred for PT services with the diagnosis of vertigo.??? 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 She requires skilled PT intervention to address current symptoms and reduce fall risk associated with her significant balance impairment. She is being seen by BLANK Manuel to address deconditioning and gait impairments, and will benefit from addition of VRT and balance retraining incorporated into her program. Will consult with Denisse and anticipate that Yessenia will progress well with a global program under Denisse's direction. I'm happy to provide input and see Yessenia back at any time for further vestibular consultation. She currently demonstrate the following impairment level findings: 1. balance impairment 2. gait impairments with dynamic gait 3. DHI score 44% impairment 4. dysfunction of VOR as indicated by (+) head thrust test 5. dysfunction of VSR as indicated by Wilner SOP Impairments are contributing to the following functional limitations: 1. dizziness when getting out of bed 2. decreased balance when turning head while walking 3. fear avoidance behaviors 4. sensation of dysequilibrium 5. fear of falling Patient is assessed as:??? Moderate 53568?complexity, based on the following: History: (list):??? 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 Complicating factors include h/o Lyme disease, recent foot fx.???See comorbidities and social history. Examination: (list): See above for functional limitations and impairments. Presentation:?Evolving? Decision-Making:???Moderate complexity??? 44 % Disability based on DHI The skills of a qualified therapist are necessary to progress the patient???s functional status, and the services cannot be safely and effectively carried out by the patient personally, or with the assistance of non-therapists, including unskilled caregivers. Patient will benefit from skilled PT services, specifically canalith repositioning and/or VRT, in order to maximize mobility and comfort to allow for safe return to participation in ADLs and community activities Prognosis: Good with balance retraining to allow for compensation for unilateral vestibular dysfunction STG:??? 6 weeks. 1. Ambulate without path deviation 2. Reduce symptoms of imbalance and dysequilibrium as indicated by DHI score < 25% impairment PLAN:? Continue per established POC with BLANK Manuel, with addition of VRT and balance retraining. Patient will be instructed in progressive vestibular rehabilitation protocols addressing adaptation (including gaze stabilization), habituation and substitution. Will also include instruction in progressive balance retraining, strengthening and conditioning. Will assess for assistive device and equipment (encourage use of trekking poles for outdoor ambulation and to encourage regular walking program). Thank you for this referral.???Please do not hesitate to contact me with any questions or concerns regarding this patient's plan of care. ??? Alena Simon, PT, DPT, [facility] All Active Problems (Updated 09/11/23 @ 12:28 by Ted Corrales MD) Chronic rhinitis (Acute) Imbalance (Acute) History of vertigo (Acute) Fracture of second metatarsal bone of left foot (Acute 05/16/23) Leg length discrepancy (Acute) Neuroma of third interspace of left foot (Acute) Neuroma of third interspace of right foot (Acute) Achilles tendon contracture, bilateral (Acute) Pes planus of both feet (Acute) Plantar fasciitis of left foot (Acute) Mild anemia (Acute) Wears hearing aid in both ears (Acute) Venous incompetence (Acute) Symptomatic varicose veins of both lower extremities (Acute) Urge incontinence (Acute) Atrophic vaginitis (Acute) Familial hypercholesteremia (Acute) Otorrhea (Acute) Sleep apnea (Acute) Hypothyroid (Chronic) Allergic rhinitis due to food (Acute 10/12/13) Allergic rhinitis due to animal (cat) (dog) hair and dander (Acute 05/04/13) Abnormal auditory perception (Acute 09/06/14) Allergic rhinitis due to pollen (Acute 05/04/13) Chronic otitis media (Acute 12/19/15) Chronic otorrhea of both ears (Acute 10/08/16) Chronic sinusitis (Acute 05/17/14) Conductive hearing loss (Acute 12/19/15) Eustachian tube anomaly (Acute 05/17/14) Nasal congestion (Acute 09/06/14) Obstructive sleep apnea (Acute 05/17/14) Sensorineural hearing loss, bilateral (Acute 04/04/15) Wheezing (Acute 05/04/13) Vitamin D deficiency disease (Acute) Fatigue (Acute) Chronic diarrhea (Acute) Urinary incontinence (Acute) Heart murmur, systolic (Acute) Medical History Allergic fungal sinusitis (05/04/13) Allergic rhinitis (05/04/13) Encounter for screening colonoscopy History of endometriosis Perforation of left tympanic membrane Surgical History H/O hysterectomy for benign disease History of appendectomy History of section History of colonoscopy History of hysterectomy History of knee replacement R History of tonsillectomy CC: Dictated by: ALENA SIMON PT, DPT Dictated: 09/24/23 Time: 1208 Date: Time: 1458 Transcribed Date: 09/24/23 Transcribed Time: 1208 By: SOL This is privileged, confidential information, intended only for the provider named. Any use or distribution by any person other than this provider is strictly prohibited. If you receive this report in error, please notify us immediately at [phone] and return the original report to us at the address above. Thank you. KENN solitario [facility]. 09/25/2023 15:44:20 Procedures Surgical History None recorded. Imaging Results Imaging Date Name Status LastModified by Organiz ation Details LastModified Time 05/22/2023 ultrasound imaging report completed the6 [address] [place], [id number] 05/22/2023 12:00:16 05/22/2023 XR, foot, 3 or more view completed the6 Information not available 05/22/2023 13:49:53 05/22/2023 x-ray imaging report completed [email or web address] [address] [place], [address] 05/23/2023 10:27:45 05/28/2023 x-ray imaging report completed the6 [address] [place], [id number] 05/28/2023 12:22:46 07/16/2023 x-ray imaging report completed the6 [address] [place], [id number] 07/16/2023 13:27:22 09/18/2023 x-ray imaging report completed the6 [address] [place], [address] 09/19/2023 09:19:37 05/28/2023 x-ray imaging report completed [email or web address] [address] [place], [address] 12/06/2023 17:22:48 Procedure Notes None recorded. Medical Equipment None Reported. Allergies Allergen ID Allergen Name Allergen Category Reaction Reaction Severity Criticality Documentation Date Start Date Code Code System Note Provider Name and Address Organization Details Recorded Time wasp venoms environme nt swelling moderate Not available 04/19/20232005 80959 RxNorm swell ing Aller gyNam e: 'BEE STING S'; Not Available [facility] 16:07:24 90942 Bactrim medicatio n Not available Not available Not available 04/19/20232005 45306 9 RxNorm Not Available [facility] 3 16:07:25 55753 sulfasala zine Not available Not available Not available Not available 04/19/20232011 9524 RxNorm Not Available [facility] 3 16:07:25 95728 simvastat in medicatio n myalgias (muscle pain) moderate Not available 04/19/20232006 28924 RxNorm muscl e pain Aller gyRea ction : 'musc le pain' ; Not Available [facility] 3 16:07:25 43415 atorvasta tin calcium medicatio n myalgias (muscle pain) moderate Not available 04/19/20232006 49629 RxNorm muscl e pain Aller gyRea ction : 'musc le pain' ; Not Available [facility] 3 16:07:25 22391 fenofibra te medicatio n other mild Not available 04/19/20232015 8703 RxNorm Stoma ch upset Aller gyRea ction : 'Stom ach upset '; Not Available [facility] 3 16:07:25 33783 Augmentin medicatio n nausea mild Not available 04/19/20232014 75745 2 RxNorm nause a Not Available [facility] 3 16:07:25 02752 Crestor medicatio n myalgias (muscle pain) moderate Not available 04/19/20232006 69595 4 RxNorm muscl e pain Aller gyRea ction : 'musc le pain' ; Not Available [facility] 3 16:07:25 91300 morphine sulfate medicatio n diarrhea mild Not available 04/19/20232013 96689 RxNorm diarr hea Not Available [facility] 3 16:07:26 70738 Voltaren medicatio n other mild Not available 04/19/20232011 98963 6 RxNorm GI Aller gyRea ction : 'GI'; Aller gyCod e: '[id number] 05'; Aller gyNam e: 'VOLT AREN' ; Aller gyCon ceptT ype: 'NDC' ; Not Available [facility] 3 16:07:26 Medications Name Sig Start Date Stop Date Status Note LastModified by Organization Details LastModified Time cyclobenz aprine 10 mg tablet Take 1 tab by mouth at bedtime as needed 02/23 completed Not Available Not Available Not Available Miralax 17 gram/dose oral powder pwd .QD 1 TBS PRN 02/25 completed Not Available Not Available Not Available Naprosyn 250 mg tablet Take 1 tablet by mouth twice daily. 07/02 completed Not Available Not Available Not Available bupropion HCl SR 150 mg tablet,12 hr sustained -release Take 1 tab by mouth daily 09/10 completed Not Available Not Available Not Available atorvasta tin 80 mg tablet TAKE 1 TABLET BY MOUTH DAILY 05/21 completed Not Available Not Available Not Available Colace 100 mg capsule 50 mg caps, twice daily prn 11/13 completed Not Available Not Available Not Available Estring 2 mg (7.5 mcg/24 hour) vaginal ring place PV every 3 months 05/21 completed Not Available Not Available Not Available Nasalcrom 5.2 mg/spray (4 %) spray 1 spray into both nostrils four times a day 2018 active Not Available Not Available Not Avai lable doxycycli ne hyclate 100 mg capsule TAKE 1 CAPSULE BY MOUTH TWICE DAILY FOR 10 DAYS active Not Available Not Available No t Available ammonium lactate 12 % lotion 03/01 completed Not Available Not Available Not Available trazodone 50 mg tablet TAKE ONE TABLET BY MOUTH EVERY DAY ALONG WITH 150MG TO EQUAL 200MG DAILY active Not Available Not Available No t Available atorvasta tin 10 mg tablet TAKE 1 TABLET BY MOUTH AT BEDTIME 2018 active Not Available Not Available Not Avai lable azithromy latosha 250 mg tablet Take 2 by mouth now, then take 1 by mouth daily x 4 days 05/27 completed Not Available Not Available Not Available Aralen 500 mg tablet 1 tab 04/11 completed Not Available Not Available Not Available tolterodi ne ER 4 mg capsule,e xtended release 24 hr TAKE ONE CAPSULE BY MOUTH EVERY DAY active Not Available Not Available No t Available naltrexon e 50 mg tablet TAKE 1/2 TABLET BY MOUTH FOR 7 DAYS THEN INCREASE TO TAKE ONE TABLET BY MOUTH EVERY DAY 05/21 completed Not Available Not Available Not Available Remeron 15 mg tablet Take 1/2 tab by mouth daily at bedtime 2015 active Not Available Not Available Not Avai lable alendrona te 70 mg tablet TAKE ONE TABLET ONCE WEEKLY FOR 4 WEEKS active Not Available Not Available No t Available Niaspan 500 mg tablet,ex tended release 2 TABS at bedtime 09/11 completed Not Available Not Available Not Available doxycycli ne hyclate 50 mg capsule TAKE ONE CAPSULE BY MOUTH EVERY DAY active Not Available Not Available No t Available phentermi ne 15 mg capsule 1 TAB daily 12/27 completed Not Available Not Available Not Available topiramat e 25 mg tablet Take 1 tab by mouth at HS 06/16 completed Not Available Not Available Not Available olanzapin e 2.5 mg tablet active Not Available Not Available Not Available Wellbutri n SR 100 mg tablet, 12 hr sustained -release 1 TAB BID 04/20 completed Not Available Not Available Not Available amitripty line 50 mg tablet 1 TAB at bedtime 05/05 completed Not Available Not Available Not Available acetamino phen 500 mg tablet Take 1-2 tab by mouth every 6 hours as needed 2019 active Not Available Not Available Not Avai lable triamcino lone acetonide 0.1 % topical cream CAMRYN AA BID 02/08 completed Not Available Not Available Not Available Cytomel 5 mcg tablet Take 2.5 tab po at the same time every day. Take at least 2 hours after eating and do not eat for 30-60 minutes after 05/12 completed Not Available Not Available Not Available levothyro xine 25 mcg tablet 1.5TAB DAILY 02/17 completed Not Available Not Available Not Available pantopraz ole 20 mg tablet,de layed release TAKE ONE TABLET BY MOUTH EVERY DAY active Not Available Not Available No t Available Aleve 220 mg tablet 2 TABS twice daily 02/06 completed Not Available Not Available Not Available Celebrex 200 mg capsule Take 1 cap by mouth daily prn joint pain 06/16 completed Not Available Not Available Not Available THSC Levothyro xine Sodium 50 mcg tablet 1TAB DAILY 06/15 completed Not Available Not Available Not Available meloxicam 7.5 mg tablet 1 qd active Not Available Not Available Not Available Vagifem 25 mcg vaginal tablet 1 BIW 04/20 completed Not Available Not Available Not Available Alba-Lybe oral liquid 1 gtt bid active ordered by Jasmin Not Available Not Available Not Available ofloxacin 0.3 % ear drops Place 2 drop in ear as needed 01/21 completed Not Available Not Available Not Available amoxicill in 875 mg tablet 1 TAB twice daily 07/11 completed Not Available Not Available Not Available amitripty line 25 mg tablet 1 TAB at bedtime 04/02 completed Not Available Not Available Not Available pravastat in 10 mg tablet one po daily for choleste rol 09/01 completed Not Available Not Available Not Available triamcino lone acetonide 0.025 % topical cream active Not Available Not Available Not Available Zoloft 50 mg tablet 0.5TAB EVERY MORNING 07/30 completed Not Available Not Available Not Available trazodone 100 mg tablet TAKE ONE TABLET BY MOUTH EVERY NIGHT AT BEDTIME active Not Available Not Available No t Available ciproflox acin 0.3 % eye drops INSTILL 4 DROPS IN BOTH EARS TWO TIMES A DAY FOR 10 DAYS 05/21 completed Not Available Not Available Not Available dexametha sone 1 mg tablet 1TAB daily 07/06 completed Not Available Not Available Not Available meclizine 25 mg tablet TAKE 1 TABLET BY MOUTH FOUR TIMES DAILY active Not Available Not Available No t Available diazepam 2 mg tablet TAKE ONE TABLET BY MOUTH AT BEDTIME active Not Available Not Available No t Available benzonata te 100 mg capsule take 2 tablets TID PRN 09/01 completed Not Available Not Available Not Available deslorata dine 5 mg tablet TAKE ONE TABLET BY MOUTH EVERY DAY active Not Available Not Available No t Available Tylenol 500 mg tablet 2TAB twice daily 09/11 completed Not Available Not Available Not Available levothyro xine 50 mcg tablet TAKE ONE TABLET BY MOUTH EVERY MORNING ON AN EMPTY STOMACH active Not Available Not Available No t Available trazodone 150 mg tablet TAKE ONE TABLET BY MOUTH IN THE EVENING NEEDED active Not Available Not Available No t Available WelChol 625 mg tablet 1TAB bid 04/25 completed Not Available Not Available Not Available Cipro 500 mg tablet 1 TAB twice daily 09/22 completed Not Available Not Available Not Available olopatadi ne 0.1 % eye drops instill 1 drop into affected eye twice a day 03/01 completed Not Available Not Available Not Available Premarin 0.3 mg tablet 1 TAB QD 12/04 completed Not Available Not Available Not Available prednison e 50 mg tablet one po daily for 5 days 09/15 completed Not Available Not Available Not Available fluoromet holone 0.1 % eye drops,justin pension INSTILL ONE DROP INTO BOTH EYES TWO TIMES A DAY FOR 7 DAYS SHAKE WELL active Not Available Not Available No t Available bupropion HCl 75 mg tablet Take 1 tab by mouth daily with 150mg SR 09/10 completed Not Available Not Available Not Available Calcium-6 00 600 mg (as calcium carbonate 1,500 mg) tablet TAKE 1 TABLET BY MOUTH TWICE A DAY active Not Available Not Available No t Available niacin 100 mg tablet 2 tabs at HS 09/10 completed Not Available Not Available Not Available sertralin e 25 mg tablet Take 1 tab by mouth daily, may increase to 50mg after 1 week 11/01 completed Not Available Not Available Not Available buspirone 7.5 mg tablet Take 1 tab by mouth daily BID 09/01 completed Not Available Not Available Not Available omeprazol e 20 mg capsule,d elayed release TAKE ONE CAPSULE BY MOUTH EVERY DAY active Not Available Not Available No t Available vitamin B complex tablet Take 1 tablet every day by oral route in the morning. 2022 active Not Available Not Available Not Avai lable monteluka st 10 mg tablet TAKE ONE TABLET BY MOUTH EVERY MORNING active Not Available Not Available No t Available hydroxyzi ne HCl 25 mg tablet oral at bedtime 09/13 completed Not Available Not Available Not Available Proventil HFA 90 mcg/actua tion aerosol inhaler Inhale 2 puffs by mouth every 4-6 hours as needed 02/19 completed Not Available Not Available Not Available mupirocin 2 % topical ointment APPLY A SMALL AMOUNT TO THE FEET TWO TIMES A DAY NEEDED FOR 10 DAYS active Not Available Not Available No t Available [place] Thyroid 30 mg tablet Take 1 tab daily 06/06 completed Not Available Not Available Not Available gabapenti n 100 mg capsule TAKE 1 CAPSULE BY MOUTH AT BEDTIME, IF TOLERATI NG FOR 2 NIGHTS CAN INCREASE TO 2 CAPSULES . MONITOR FOR DROWSINE SS 05/21 completed Not Available Not Available Not Available ergocalci ferol (vitamin D2) 1,250 mcg (50,000 unit) capsule TAKE ONE CAPSULE BY MOUTH ONCE WEEKLY AT THE SAME TIME EACH WEEK 05/21 completed Not Available Not Available Not Available Transderm -Scop 1 mg over 3 days transderm al patch Apply 1 patch 05/21 completed Not Available Not Available Not Available Aspir-81 mg tablet,de layed release Take 1 tab by mouth daily 02/19 completed Not Available Not Available Not Available epinephri ne 0.3 mg/0.3 mL injection , auto-inje ctor USE DIRECTED active Not Available Not Available No t Available Nasonex 50 mcg/actua tion [place] 2 sprays daily 02/23 completed Not Available Not Available Not Available Engerix-B (Hepatiti s B) Vaccine 20 mcg/mL intramusc ular suspensio n Needs 1 addition al dose IM for travel 2019 active Not Available Not Available Not Avai lable methylpre dnisolone 4 mg tablets in a dose pack FOLLOW INSTRUCT IONS ON PACKAGE FOR 6 DAYS; TAKE WITH FOOD. STOP ALEVE WHILE ON THIS MED. active Not Available Not Available No t Available ipratropi um bromide 42 mcg (0.06 %) nasal spray 1 spray in each nostril three times daily 09/01 completed Not Available Not Available Not Available Naprosyn 500 mg tablet 1 TAB twice daily 02/17 completed Not Available Not Available Not Available ondansetr on 4 mg disintegr ating tablet TAKE 1 TABLET BY MOUTH SUBLINGU ALLY EVERY 6 HOURS active Not Available Not Available No t Available fluticaso ne propionat e 50 mcg/actua tion nasal spray,justin pension USE 2 SPRAYS IN EACH NOSTRIL ONCE DAILY active Not Available Not Available No t Available doxycycli ne hyclate 100 mg tablet Take 1 tab by mouth BID x 2 weeks 12/10 completed Not Available Not Available Not Available Sudafed 30 mg tablet one po q 4-6 hours prn nasal congesti on 02/19 completed Not Available Not Available Not Available Sudafed 12 Hour 120 mg tablet,ex tended release takes BID 06/16 completed Not Available Not Available Not Available mometason e 0.1 % topical cream APPLY TO AFFECTED AREA(S) ONCE DAILY active Not Available Not Available No t Available vitamin B complex capsule TAKE ONE CAPSULE BY MOUTH EVERY MORNING active Not Available Not Available No t Available Colace 50 mg capsule 1 CAP twice daily constipa tion 02/17 completed Not Available Not Available Not Available Augmentin 875 mg tablet 1 TAB twice daily 04/22 completed Not Available Not Available Not Available Estrace 0.01% (0.1 mg/gram) vaginal cream apply 1g vaginall y twice a week 02/19 completed Not Available Not Available Not Available Lexapro 10 mg tablet 1 qd 04/25 completed Not Available Not Available Not Available Zetia 10 mg tablet one po daily for choleste rol 05/15 completed Not Available Not Available Not Available Vitamin D3 25 mcg (1,000 unit) capsule TAKE ONE CAPSULE BY MOUTH EVERY DAY DIRECTED active Not Available Not Available No t Available acyclovir 5 % topical cream APPLY TO AFFECTED AREA(S) TOPICALL Y 5 TIMES PER DAY active Not Available Not Available No t Available Fish Oil 1,000 mg capsule 4 g po daily per cardiolo gy 07/19 completed Not Available Not Available Not Available Premarin 0.625 mg/gram vaginal cream Apply cream twice weekly 03/01 completed Not Available Not Available Not Available Crestor 5 mg tablet Take 1 tab by mouth twice a week 05/15 completed Not Available Not Available Not Available bupropion HCl XL 150 mg 24 hr tablet, extended release take 2 tabs/day by mouth 2015 active Not Available Not Available Not Avai lable Wellbutri n XL 300 mg 24 hr tablet, extended release 1 TAB qd 09/07 completed Not Available Not Available Not Available mirtazapi ne 7.5 mg tablet Take 1-2 tablets by mouth at bedtime 02/19 completed Not Available Not Available Not Available Flovent HFA 110 mcg/actua tion aerosol inhaler Inhale 1 puffs by mouth twice daily 04/14 completed Not Available Not Available Not Available fenofibra te 160 mg tablet Take 1 by mouth daily 05/12 completed Not Available Not Available Not Available Liquid Calcium with Vitamin D 600 mg-5 mcg (200 unit) capsule active ordered by jasmin padgett Not Available Not Available Not Available pregabali n 50 mg capsule active Not Available Not Available Not Available Rozerem 8 mg tablet one po qhs for sleep 04/14 completed Not Available Not Available Not Available EpiPen inj prn 02/17 completed Not Available Not Available Not Available Aleve 2 04/20 completed Not Available Not Available Not Available Nasonex 1-2 gtts bid 10/11 completed Not Available Not Available Not Available prednison e 2TAB daily 02/06 completed Not Available Not Available Not Available Vitamin D 1CAP QD 02/06 completed Not Available Not Available Not Available typhoid vaccine 1CAP 11/15 completed Not Available Not Available Not Available Aerochamb er 12/04 completed Not Available Not Available Not Available Glory 12/04 completed Not Available Not Available Not Available Simethico ne-80 1 TAB four times daily 05/05 completed Not Available Not Available Not Available aripipraz ole 2 mg tablet TAKE 1 TABLET BY MOUTH DAILY active Not Available Not Available No t Available fenofibra te nanocryst allized 145 mg tablet Take 1 tab by mouth daily 09/18 completed Not Available Not Available Not Available calcium carbonate 600 mg-vitami n D3 10 mcg (400 unit) tablet TAKE ONE TABLET BY MOUTH TWICE A DAY DIRECTED 2023 active Not Available Not Available Not Avai lable olopatadi ne 0.2 % eye drops INSTILL 1 DROP INTO THE EYE(S) DAILY NEEDED FOR ITCHING active Not Available Not Available No t Available celecoxib 50 mg capsule TAKE ONE CAPSULE BY MOUTH TWICE A DAY DIRECTED active Not Available Not Available No t Available hydrochlo rothiazid e 12.5 mg tablet TAKE ONE TABLET BY MOUTH EVERY DAY active Not Available Not Available No t Available Symbicort 160 mcg-4.5 mcg/actua tion HFA aerosol inhaler 02/23 completed Not Available Not Available Not Available Engerix-B (PF) 20 mcg/mL intramusc ular suspensio n 1 intramus cularly 01/21 completed Not Available Not Available Not Available Lovaza 1 gram capsule Take 2 caps bid 04/02 completed Not Available Not Available Not Available levocetir izine 5 mg tablet TAKE ONE TABLET BY MOUTH EVERY EVENING 05/21 completed Not Available Not Available Not Available [facility] 32.5 mg tablet Take 1 tab daily on an empty stomach. 2014 completed Not Available Not Available Not Available lisdexamf etamine 20 mg capsule TAKE ONE CAPSULE BY MOUTH EVERY MORNING active Not Available Not Available No t Available cholecalc iferol (vitamin D3) 50 mcg (2,000 unit) capsule TAKE ONE CAPSULE BY MOUTH EVERY DAY active Not Available Not Available No t Available fenofibra te 54 mg tablet Take 1 by mouth twice daily 2013 completed Not Available Not Available Not Available Savella 12.5 mg tablet 1 TAB TWICE DAILY 02/19 completed Not Available Not Available Not Available Savella 25 mg tablet 1 TAB TWICE DAILY 04/03 completed Not Available Not Available Not Available estradiol 10 mcg vaginal tablet INSERT 1 TABLET VAGINALL Y AT BEDTIME ON SATURDAY, , AND SATURDAY active Not Available Not Available No t Available Prevnar 13 (PF) 0.5 mL intramusc ular syringe 1x dose 02/23 completed Not Available Not Available Not Available Tirosint 50 mcg capsule Take 1 tablet by mouth once a day 02/05 completed Not Available Not Available Not Available Dulera 100 mcg-5 mcg/actua tion HFA aerosol inhaler 2 PUFFS TWICE DAILY 03/10 completed Not Available Not Available Not Available Glory Allergy 180 mg tablet Take 1 tablet by mouth once a day 01/21 completed Not Available Not Available Not Available vilazodon e 10 mg tablet TAKE ONE TABLET BY MOUTH EVERY DAY WITH FOOD active Not Available Not Available No t Available Viibryd 20 mg tablet 1TAB daily 09/13 completed Not Available Not Available Not Available Artificia l Tears ([id number] promell-g lycerin) 1 %-0.2 %-0.2 % eye drops 1 drop in eye four times a day as needed 01/21 completed Not Available Not Available Not Available lurasidon e 20 mg tablet TAKE ONE TABLET BY MOUTH EVERY EVENING WITH FOOD active Not Available Not Available No t Available icosapent ethyl 1 gram capsule 2g po BID for choleste rol active Not Available Not Available No t Available Contrave 8 mg-90 mg tablet,ex tended release TAKE 1 TABLET BY MOUTH EVERY MORNING FOR 7 DAYS THEN INCREASE TO 1 TABLET TWO TIMES A DAY 05/21 completed Not Available Not Available Not Available lisdexamf etamine 10 mg capsule TAKE ONE CAPSULE BY MOUTH EVERY MORNING active Not Available Not Available No t Available doxycycli ne hyclate 50 mg tablet TAKE ONE TABLET BY MOUTH EVERY DAY active Not Available Not Available No t Available desvenlaf axine succinate ER 25 mg tablet,ex tended release 24 hr TAKE ONE TABLET BY MOUTH EVERY MORNING FOR 14 DAYS THEN INCREASE TO TWO TABLETS EVERY MORNING THEREAFT ER. TAKE WITH FOOD active Not Available Not Available No t Available Rexulti 0.5 mg tablet 1 tablet PO QD. Ordered by psych 2022 active Not Available Not Available Not Avai lable Praluent Pen 150 mg/mL subcutane ous pen injector 04/02 completed Cardiolo gist Not Available Not Available Not Available Praluent Pen 75 mg/mL subcutane ous pen injector 75mg subcut every other week 02/19 completed Not Available Not Available Not Available Repatha SureClick 140 mg/mL subcutane ous pen injector INJECT 1ML UNDER THE SKIN EVERY 14 DAYS 05/21 completed Not Available Not Available Not Available meloxicam submicron ized 5 mg capsule TAKE ONE CAPSULE BY MOUTH EVERY DAY active Not Available Not Available No t Available Vivotif 2 billion unit capsule,d elayed release one po every other day for 4 doses 04/10 completed Not Available Not Available Not Available Vraylar 1.5 mg capsule TAKE ONE CAPSULE BY MOUTH EVERY EVENING WITH FOOD 05/21 completed Not Available Not Available Not Available Trintelli x 5 mg tablet take up to 2 tabs daily for mood 03/01 completed Not Available Not Available Not Available Nexletol 180 mg tablet TAKE ONE TABLET BY MOUTH EVERY DAY active Not Available Not Available No t Available Paxlovid 300 mg (150 mg x 2)-100 mg tablets in a dose pack TAKE 2 NIRMATRE LVIR TABLETS AND 1 RITONAVI R TABLET TOGETHER BY MOUTH TWICE DAILY FOR 5 DAYS active Not Available Not Available No t Available Vitals Date Recorded Body height Heart rate Systolic blood pressure Diastolic blood pressure Provider Name and Address Organization Details Last Updated DateTime 05/21/2023 160.528 cm 72 /min 150 mm[Hg] 82 mm[Hg] ULICES DE LEÓN LPN [facility] 05/21/2023 13:43:07 Date Recorded Body height Heart rate Systolic blood pressure Diastolic blood pressure Provider Name and Address Organization Details Last Updated DateTime 06/04/2023 160.528 cm 80 /min 130 mm[Hg] 82 mm[Hg] ULICES DE LEÓN LPN [facility] 06/04/2023 09:01:33 Social History None recorded. Functional Status None recorded. Mental Status None recorded. Family History Relationship Description Onset Age of this Age Resolved Age Notes Sister Family history of Hypertension Notes:*Problem: updated 11/22 Mother: @ 91, neurological issues Father: @ 91, parkinsons, had coronary dis in his 70s Sisters:, 6 Brothers: 2 Children: 2 Family History of: Hypertension: yes, sister Hyperlipidemia: yes, everybody Coronary heart disease: yes father cad in 70s Diabetes mellitus: yes, MGF Breast cancer: yes, sister [place] Colorectal cancer: no Alcoholism: no Mental illness: yes, runs in the family Other: 2 paternal uncles that of Cancer Medical History No medical history recorded. Gynecological HistoryNo gynecological history recorded. Obstetrics History GPAL:G 0 P 0 0 0 0 Immunizations Vaccine Type Date Status Provider Name and Address Organization Details Recorded Time Hep B, adolescent or pediatric 04/02/2017 completed Not Available [facility] 04/19/2023 05:31:57 Hep A-Hep B 11/15/2014 completed Not Available [facility] 04/19/2023 05:31:58 Tdap 07/02/2016 completed Not Available [facility] 05:31:58 Tdap 10/15/2016 completed Not Available [facility] 05:31:58 Tdap 11/27/2021 completed Not Available [facility] 05:31:58 Tdap 02/19/2018 completed Not Available [facility] 05:31:58 zoster live 06/16/2018 completed Not Available [facility] 04/19/2023 05:31:58 zoster live 10/15/2016 completed Not Available [facility] 04/19/2023 05:31:58 zoster live 06/06/2016 completed Not Available [facility] 04/19/2023 05:31:58 Pneumococcal conjugate PCV 13 11/15/2014 completed Not Available [facility] 04/19/2023 05:31:59 Influenza, split virus, trivalent, preservative 04/11/2015 completed Not Available [facility] 04/19/2023 05:31:59 Influenza, split virus, quadrivalent, preservative 04/02/2017 completed Not Available [facility] 04/19/2023 05:31:59 zoster recombinant 02/19/2018 completed Not Available [facility] 04/19/2023 05:31:59 Influenza, high-dose, quadrivalent, PF 03/07/2020 completed Not Available [facility] 04/19/2023 05:31:59 Influenza, high-dose, quadrivalent, PF 03/16/2022 completed Not Available [facility] 04/19/2023 05:31:59 COVID-19, mRNA, LNP-S, PF, 100 mcg/0.5mL dose or 50 mcg/0.25mL dose 08/03/2020 completed Not Available [facility] 04/19/2023 05:31:59 COVID-19, mRNA, LNP-S, PF, 100 mcg/0.5mL dose or 50 mcg/0.25mL dose 08/31/2020 completed Not Available [facility] 04/19/2023 05:31:59 COVID-19, mRNA, LNP-S, PF, 100 mcg/0.5mL dose or 50 mcg/0.25mL dose 09/20/2021 completed Not Available [facility] 04/19/2023 05:32:00 typhoid, oral 04/13/2017 [facility] 05:32:00 pneumococcal polysaccharide PPV23 10/15/2016 completed Not Available [facility] 2022 05:32:00 pneumococcal polysaccharide PPV23 06/06/2016 completed Not Available [facility] 2022 05:32:00 Hep B, adult 06/17/2019 completed Not Available [facility] 04/19/2023 05:32:00 Hep A, adult 04/02/2017 completed Not Available [facility] 04/19/2023 05:32:00 influenza, unspecified formulation 03/23/2019 completed Not Available [facility] 04/19/2023 05:32:00 influenza, unspecified formulation 04/18/2021 completed Not Available [facility] 04/19/2023 05:32:00 Influenza, high-dose, quadrivalent, PF 03/20/2023 completed Not Available [facility] 06/21/2023 05:31:41 SARS-COV-2 (COVID-19) vaccine, UNSPECIFIED 04/09/2023 completed Not Available [facility] 06/21/2023 05:31:42 Past Encounters Encounter ID Performer Location Encounter Start Date Encounter Closed Date Diagnosis/Indication Diagnosis SNOMED-CT Code Diagnosis ICD10 Code [id number] [facility] [address] [place] [address] 05/21/2023 13:20:46 05/21/2023 14:24:08 Swelling of left foot 432015626 M79.89 Easy bruising [id number] R58 [id number] [facility] [address] [place] [address] 06/04/2023 08:49:20 06/04/2023 10:30:49 Pain in left foot [id number] 85467 M79.672 Osteopenia 752957973 M85 .80 Hypothyroidism 64912897 E03.9 Idiopathic osteoarthritis 709183389 M19.91 Fatigue 68505728 R53.83 Health Concerns Section Related Observation LastModified by Organization Detai ls LastModified Time None Recorded Concern Status LastModified by Organization Details LastModified Time None Recorded Advance Directives Directive None Recorded Payers Encounter Date Sequence Insurance Name Policy Number Policy Hendrix Covered Member ID Hendrix Member ID Guarantor Name 05/21/2023 1 [id number] - [place]PO) [id number] Yessenia S Kitchel [id number] Yessenia S Kitchel 06/04/2023 1 [id number]) [id number] Yessenia S Kitchel [id number] Yessenia S Kitchel Notes Date Note Type Note Provider Name and Address Organization Details Recorded Time 05/21/2023 text/html HPI Notes: 73-year-old woman here for multiple complaints She developed left foot bruising, swelling and pain 1 week following a steroid injection that she had in her back? given to her by a provider at [facility] for chronic back pain. She was seen by her physical therapist as she thought it was plantar fasciitis they advised that she see her PCP. She called her computer repair engineer and they advised that she get a Doppler ultrasound to rule out a DVT. She denies shortness of breath, or any injury. Reports being very sedentary. No fever. Kenn solitario [facility]. 05/23/2023 13:18:31 06/04/2023 text/html HPI Notes: 73 yr old woman here for f/u L foot pain: originally seen 05/21/2023 at [facility] for multiple complaints : HX: She developed left foot bruising, swelling and pain 1 week following a steroid injection that she had in her back? given to her by a provider at [facility] for chronic back pain. She was seen by her physical therapist as she thought it was plantar fasciitis they advised that she see her PCP. She called her computer repair engineer and they advised that she get a Doppler ultrasound to rule out a DVT. She denies shortness of breath, or any injury. Reports being very sedentary. No fever. 05/22/2023 Dopler US ruled out DVT, uric acid level nl. Plain film: nondisplaced fracture base of 2nd metatarsal. Walking boot ordered. Seen by [facility]- given a walking boot. No additional intervention. Today, she reports ongoing pain at the site of the fracture, has used Tylenol and ibuprofen without much relief, would like to try Celebrex again. Also complaining of decreased energy is asking to have her iron checked today. Would like handicap placard. She has been using a walking boot for all ambulation will follow-up with Ortho next month, would like to be treated for osteopenia with Fosamax? she is already taking calcium and vitamin D. NABOR Irwin - [facility]. 06/04/2023 10:11:37 OBGyn Episode No OBEpisode recorded.
--- OUTSIDE RECORDS SUMMARY | 2024-02-15 13:14 | XMS_ITS | Encounter Summary ---
[facility] [address] Care Team Providers Care Seasonal Customer Service Associate Name Role Phone Dana Cedillo Primary Care Provider +1- [phone] Encounter Details Date Type Department Care Team (Late st Contact Info) Description 01/09/2024 Telephone [place] [phone] Raeann Ortega, RN Social History Tobacco Use Types Packs/Day [...] 9:45 AM EDT Office Visit Dermatology at [address] [place] [address] Emiliano Salinas MD [address], BAKARI [place] [address] documented as of this encounter Visit Diagnoses Not on filedocumented in this encounter Care Teams Seasonal Customer Service Associate Relationship Specialty Start Date End Date Dana Cedillo DO [address] [place] [address] PCP - General Family Medicine 10/16/23 documented as of this encounter
--- OUTSIDE RECORDS SUMMARY | 2024-02-15 13:14 | XMS_ITS | Encounter Summary ---
Author Organization [facility] [place] [address] Care Team Providers Care Gas Engine Operator Name Role Phone Dana Cedillo DO Primary Care Provider +1- [phone] Encounter Details Date Type Department Care Team (Late st Contact Info) Description 02/13/2024 Telephone Cardiology at [address] [place] [address] Liam Noel MD [facility] [place] [address] Social History Tobacco Use Types Packs/Day Years [...] Telephone Encounter - Ashlyn Celis RN - 02/13/2024 9:53 AM EDT Yessenia is canceling appointment today. She reports vomiting and diarrhea illness Yessenia has canceled or we have rescheduled her multiple times. Last in-person appointment completed with Dr. Noel was March 2023 documented in this encounter Plan of Treatment Upcoming Encounters Date Type Department Care Team (Late st Contact Info) Description 03/13/2024 9:45 AM EDT Office Visit Dermatology at [place] [address] [address] Emiliano Salinas MD [address], [place]AKARI [place] [address] documented as of this encounter Visit Diagnoses Not on filedocumented in this encounter Care Teams Gas Engine Operator Relationship Specialty Start Date End Date Dana Cedillo DO [address] [place] [address] PCP - General Family Medicine 10/16/23 documented as of this encounter
--- OUTSIDE RECORDS SUMMARY | 2024-02-15 13:14 | XMS_ITS | Encounter Summary ---
Author Organization [facility] [place] [address] Care Team Providers Care Child Care Name Role Phone Dana Cedillo DO Primary Care Provider +1- [phone] Encounter Details Date Type Department Care Team (Latest Contact Info) Description 02/06/2024 Travel Social History Tobacco Use Types Packs/Day [...] 9:45 AM EDT Office Visit Dermatology at [place] [address] [place] [phone] Emiliano Salinas MD [address], [place] [address] documented as of this encounter Visit Diagnoses Not on filedocumented in this encounter Care Teams Child Care Relationship Specialty Start Date End Date Dana Cedillo DO [address] [place] [address] PCP - General Family Medicine 10/16/23 documented as of this encounter
--- OUTSIDE RECORDS SUMMARY | 2024-02-15 13:14 | XMS_ITS | Encounter Summary ---
Author Organization [facility] [place] [address] Care Team Providers Care Perinatology Physician Name Role Phone Nguyen Danarebecca Ordonez DO Primary Care Provider +1- [phone] Encounter Details Date Type Department Care Team (Late st Contact Info) Description 01/23/2024 Telephone Cardiology at [address] [place] [address] Liam Noel MD [facility] [place] [address] Social History Tobacco Use Types Packs/Day Years [...] encounter Miscellaneous Notes * Telephone Encounter - Liam Noel MD - 01/23/2024 11:01 AM EDT Reviewed request from patient to obtain a coronary calcium score, at request/advisement from her GP She has a history of (presumed) familial hypercholesterolemia, with very elevated LDL (> 220). She had a CCS in 2021 which demonstrated a low absolute value and a mildly elevated relative value. She has since been on an array of anti-lipemics. I tried to reach patient to further review her GP's recommendation; no answer on phone. I also tried to reach patient's GP, but after many minutes on hold, I ended the call. - There is no indication for a coronary calcium score, as it would not contain actionable information. In fact, it could lead to further health-related anxiety as I would predict that the calcium score has increased in the interval due to the known/predicted beneficial effect of the anti-lipemics she has been on. - There is no role for surveillance coronary calcium scores in the setting of a non-zero result. - Patient's LDL is so high that there is no risk modification of the CCS. That is, anti-lipemic therapy would be recommended regardless. - If the patient's GP feels strongly about the CCS and would find it actionable in some way to advanced his care of the patient, then he is more than welcome to order the test. documented in this encounter Plan of Treatment Upcoming Encounters Date Type Department Care Team (Late st Contact Info) Description 03/13/2024 9:45 AM EDT Office Visit Dermatology at [place] [address] [place] [address] Emiliano Salinas MD [address] [facility], B[place]AR[place] [address] documented as of this encounter Visit Diagnoses Not on filedocumented in this encounter Care Teams Perinatology Physician Relationship Specialty Start Date End Date Dana Cedillo DO [address] [place] [address] PCP - General Family Medicine 10/16/23 documented as of this encounter
--- OUTSIDE RECORDS SUMMARY | 2024-02-15 13:14 | XMS_ITS | Encounter Summary ---
Author Organization [facility] [place] [address] Care Team Providers Care Cam Maker Name Role Phone Dana Cedillo Primary Care Provider +1- [phone] Encounter Details Date Type Department Care Team (Late st Contact Info) Description 01/28/2024 Orders Only Cardiology at [address] [place] [address] Liam Noel MD [facility] [place] [address] Mixed hyperlipidemia Social History Tobacco Use Types Packs/Day Years [...] 9:45 AM EDT Office Visit Dermatology at [address] [place] [address] Emiliano Salinas MD [address], [place] [address] Scheduled Orders Name Type Priority Associated Diagnoses Orde r Schedule Lipid Panel (Reflex Direct LDL) Lab Routine Mixed hyperlipidemia Expected: 01/28/2024, Expires: 01/27/2025 Uric acid Lab Routine Mixed hyperlipidemia Expected: 01/28/2024, Expires: 07/29/2024 documented as of this encounter Visit Diagnoses Diagnosis Mixed hyperlipidemia documented in this encounter Care Teams Cam Maker Relationship Specialty Start Date End Date Dana Cedillo DO [address] [facility] [place] [address] PCP - General Family Medicine 10/16/23 documented as of this encounter
--- OUTSIDE RECORDS SUMMARY | 2024-02-15 13:14 | XMS_ITS | Clinical Summary ---
Author Organization [facility] [place] [address] Care Team Providers Care Workers Compensation Claims Assistant Name Role Phone Everardorubio Dana Mery ROCHE Primary Care Provider [phone] Allergies Active Allergy Reactions Criticality Noted Date Comments Atorvastatin Calcium Other (See Comments) Medium 05/17/2020 unspecified Hymenoptera Allergenic Extract Other (See Comments) Medium 09/03/2022 unspecified Celecoxib Other (See Comments) Medium 05/17/2020 unspecified Fenofibrate Low 05/17/2020 Morphine Nausea Only Medium 07/09/2013 Diarrhea and GI upset Oxycodone Hcl Nausea Only Medium 05/17/2020 Penicillins Nausea Only Medium 05/17/2020 Potassium Clavulanate Other (See Comments) Medium 05/17/2020 unspecified Rosuvastatin Calcium Other (See Comments) Medium 05/17/2020 unspecified Simvastatin Other (See Comments) Medium 05/17/2020 unspecified Sulfa (Sulfonamide Antibiotics) Other (See Comments) Medium unspecified Sulfamethoxazole Other (See Comments) Medium 05/17/2020 unspecified Trimethoprim Other (See Comments) Medium 05/17/2020 Unspecified Diclofenac Sodium Low 11/22/2011 Medications Medication Sig Dispensed Refills Start Date End Date Status acetaminophen (TYLENOL) 500 mg Tablet Take 2 tablets by mouth every 6 hours as needed for Pain (for MODERATE pain). 30 tablet 1 06/15/2015 Active estradiol (ESTRACE) 0.01 % (0.1 mg/gram) Cream APPLY 1 GRAM VAGINALLY TWICE A WEEK DIRECTED 0 11/12/2017 Active PROVENTIL HFA 90 mcg/actuation HFA Aerosol Inhaler inhale 2 puffs by mouth if needed 0 10/14/2017 Active EPINEPHrine 0.3 mg/0.3 mL Auto-Injector as needed. 3 01/30/2019 Active Vraylar 1.5 mg capsule TAKE ONE CAPSULE BY MOUTH EVERY EVENING WITH FOOD 10/21/2022 Active fluticasone propionate (Flonase) 50 mcg/actuation Hooks, Suspension Every 12 hours. 10/17/2020 Ac tive meloxicam (Mobic) 7.5 mg tablet 06/14/2022 Active traZODone (Desyrel) 150 mg tablet Take 150 mg by mouth nightly. 10/24/2022 Active icosapent ethyL (Vascepa) 1 gram capsule Take 2 g by mouth 2 times daily. 360 capsule 3 10/29/2022 Active Additional Information Patient not taking.Reported on 07/30/2023 calcium carbonate/vitamin D3 (CALCIUM WITH VITAMIN D3 ORAL) Take by mouth daily. Active fexofenadine (Glory) 180 mg tablet Take 180 mg by mouth daily. Active levothyroxine (Synthroid) 50 mcg tablet TAKE ONE TABLET BY MOUTH EVERY MORNING ON AN EMPTY STOMACH Active hydroCHLOROthiazide 12.5 mg tablet Take 1 tablet by mouth daily. 90 tablet 3 09/30/2023 Active Nexletol 180 mg tabletIndications:Mi xed hyperlipidemia TAKE ONE TABLET BY MOUTH EVERY DAY 90 tablet 3 02/11/2024 Active Active Problems Problem Noted Date Diagnosed Date Urinary urgency 03/18/2023 Arthritis of carpometacarpal (CMC) joint of both thumbs 09/03/2022 Hypothyroidism 09/03/2022 Lumbosacral spondylosis without myelopathy 09/03 Mixed anxiety depressive disorder 09/03/2022 Mixed incontinence 09/03/2022 Restless legs syndrome 09/03/2022 Mixed hyperlipidemia 09/03/2022 Overview (03/19/2023): Adverse effects to psck9i, zetia, statin Assessment & Plan (03/19/2023 8:34 AM EDT): Reviewed with patient that although the LDL did decrease compared to prior (previously 236), the extent to which it is still elevated did not lead to a significant MACE risk decrease. We are pursuing cholesterol lowering therapy in effort to remove a modifiable risk factor. Discussed that being compliant to prescribed therapy is especially important in setting of the administration of atypical anti-psychotics, which as a drug class effect increase cholesterol. The last alternative to cholesterol lowering had been brought up in the past with her former provider, being precious. I do not think this would be a good idea in a patient with numerous proposed side effects to medication, as the effect lasts 6 months. Spent more time discussing the many possibilities of perceived side effects to medications; my position is that if she, for whatever reason, is unable to take nexletol as prescribed QD to effectively decrease LDL, then by default she would accept the increased modifiable risk of MACE that hyperlipidemia imparts (which, as her age increases, is becoming less a part of her overall risk of such). I see no significant difference in MACE with in an LDL of 230 versus an LDL of 186 - Advised increasing nexletol back to QD - Vascepa 2 g BID - Recheck cholesterol in 3 months - Advised increased exercise. This is another large part of both her cholesterol control as well as a means to reduce MACE Assessment & Plan (10/29/2022 2:36 PM EDT): Patient has been having troublesome side effects from the array of anti-lipemics attempted thus far. She is up to retry bempedoic acid, and we will start QOD. - Nexletol 180 mg every other day - Vascepa 2g BID - Recheck cholesterol, TSH, and uric acid in 3 months Varicose veins of left lower extremity with pain 02/28/2022 Venous insufficiency of both lower extremities 0 02/28/2022 Allergy to insect stings 09/01/2013 Mild intermittent asthma 09/01/2013 Chronic urticaria 09/01/2013 Solar lentigo 08/07/2013 Urinary incontinence, urge 01/08/2012 Osteoarthritis 11/22/2011 THERESA (obstructive sleep apnea) 11/21/2011 Androgenetic alopecia 04/24/2011 Rosacea 04/24/2011 Resolved Problems Problem Noted Date Diagnosed Date Resolved Date Wears hearing aid in both ears 03/18/2023 03/18/2023 Primary osteoarthritis of fi rst carpometacarpal joint of right hand 03/18/202302/2023 Allergic rhinitis due to pollen 09/03/2022 03/18/2023 Chronic fatigue syndrome 09/03/202202/2023 Familial hypercholesterolemia 09/03/2022 09/03/2022 History of Lyme disease 09/03/202208/09 History of recurrent ear infection 09/03/2022 09/03/2022 History of total abdominal hysterectomy 09/03/2022 09/03/2022 History of urticaria 09/03/2022 023 Vitamin D deficiency 09/03/2022 023 Status post abdominoplasty 07/29/2015 0 09/03/2022 Status post bilateral breast reduction 06/28/2015 09/03/2022 Macromastia 02/08/2015 09/03/2022 Allergic rhinoconjunctivitis 09/01/2013 09/03/2022 Environmental allergies 09/01/201308/09 Female pattern alopecia 08/07/201308/09 Hypercholesteremia 11/22/2011 Encounters Date Type Department Care Team Description 02/13/2024 Telephone Cardiology at [address] [address] Liam Noel MD 02/08/2024 Refill Cardiology at [address] [address] Liam Noel MD Medication Refill 02/07/2024 Telephone Cardiology at [address] [address] Ashlyn Celis RN 02/06/2024 Travel 02/04/2024 Transcribe Orders Neurosurgery at [facility] [place] [address] Nell Fitch DO 01/28/2024 Orders Only Cardiology at [address] [address] Liam Noel MD Mixed hyperlipidemia 01/23/2024 Telephone Cardiology at [address] [address] Liam Noel MD 01/23/2024 Telephone Cardiology at [address] [address] Liam Noel MD 01/22/2024 4:00 PM EDT TH Visit (TeleHealth) Endocrinology at [place] [id number] Sam Dawson MD Hypercalciuria 01/09/2024 [place] [address] Raeann Ortega RN 01/09/2024 Telephone Cardiology at [address] [address] Liam Noel MD 11/26/2023 [place] [address] Raeann Ortega, RN Other from Last 3 Months Immunizations Name Administration Dates Next Due Hepatitis A, Unspecified Formulation 10/17/2010 Influenza (Fluzone HD) Trivalent High Dose 03/23 Tdap 10/17/2010 Typhoid Live, Oral 10/17/2010 Zoster (ShingRix), Recombinant 06/16/2018 Family History Medical History Relation Comments Allergies Daughter Heart Disease Father stent and CABG High Cholesterol Father at 90 Parkinsonism Father Diabetes Maternal Grandfather High Cholesterol Mother at 91 Breast Cancer Sister 1 Heart Disease Sister 2 2 stents Relation Status Comments Daughter Alive Father Maternal Grandfather Mother Sister 1 Alive Sister 2 Alive Social History Tobacco Use Types Packs/Day Years Used Date Smoking Tobacco: Former Cigarettes 0.3 10 Smokeless Tobacco: Never Tobacco Cessation:Counseling Given: Not Answered Comments:Patient denies ever being a smoker Alcohol Use Standard Drinks/Week Comments Yes 0 (1 standard drink = 0.6 oz pur e alcohol) 3-9 glasses per week Sex and Gender Information Value Date Recorded Sex Assigned at Not on file Gender Identity Not on file Sexual Orientation Not on file Last Filed Vital Signs Vital Sign Reading Time Taken Comments Blood Pressure 113/60 09/30/2023 11:52 AM EDT Pulse 71 09/30/2023 10:57 AM EDT Temperature 36.5 ??C (97.7 ??F) 09/30/2023 1 0:57 AM EDT Respiratory Rate 16 02/16/2022 9:41 AM EDT Oxygen Saturation 95% 09/30/2023 10: 57 AM EDT Inhaled Oxygen Concentration - - Weight 72.5 kg (159 lb 12.8 oz) 024 10:57 AM EDT Height 157.5 cm (5' 2) 09/30/2023 10:5 7 AM EDT Body Mass Index 29.23 09/30/2023 10:57 AM EDT Plan of Treatment Upcoming Encounters Date Type Department Care Team (Late st Contact Info) Description 03/13/2024 9:45 AM EDT Office Visit Dermatology at [place] [address] [facility] [place] [phone] Emiliano Salinas MD [address], [place] [address] Health Maintenance Due Date Last Done Comments CT Colonography 1950 Colonoscopy 1950 Colorectal Cancer Screening 1950 FIT DNA 1950 FIT 1950 Sigmoidoscopy (10 year) with FIT yearly 1950 Sigmoidoscopy 1950 Pneumoccocal Vaccine: 65+ (1 of 2 - PCV) 1955 Hepatitis C Screening 1967 Advance Directive 02/10/2004 Zoster vaccine (2 of 2) 08/11/2018 06/16/2018 Tetanus vaccine 10/17/2020 10/17/2010 Covid-19 Vaccine (5 - 2022-2 4 season) 2024 04/04/2022, 09/20/2021, 08/31/2020, Additional history exists Influenza (Flu) vaccine (1 o f 1 - Influenza standard series) 2024 03/23/2019 Bone Density Scan 10/17/2038 10/18/2023 Tdap adult Completed 10/17/2010 Diabetes Screening (HgbA1C o r Glucose) Discontinued 07/30/2023, 02/13/2019, 12/06/2017, Additional history exists Procedures Procedure Name Priority Date/Time Associated Diagnosis Comments LAB SCAN 01/28/2024 12:00 AM EDT LAB SCAN 11/18/2023 12:00 AM EDT DXA CENTRAL SPINE, HIP, AND/OR WHOLE BODY (GENERIC) Routine 10/18/2023 10:49 AM EDT 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, subsequent encounter COMPREHENSIVE METABOLIC PANEL Routine 07/30/2023 11:32 AM EST Osteopenia, unspecified location from Last 3 Months or Most Recently Relevant to Health Maintenance Results * Scan Doc: Lab (01/28/2024 12:00 AM EDT) Only the most recent of2 resultswithin the time period is included. Narrative 01/28/2024 12:00 AM EDT Ordered by an unspecified provider. Scanning Provider MEDIA MGR SCAN EXT O RDR/RSLT * DXA Central Spine, Hip, and/or Whole Body (Generic) (10/18/2023 10:49 AM EDT) Guest of a Guest WORKSTATION ID [id number] [facility] Anatomical Region Laterality Modality C-spine, Hip N/A Other Impressions 10/18/2023 1:08 PM EDT 1. ??Measurements meet WHO criteria for normal bone mineral density. Prevent Fractures! PATIENTS NOT ON TREATMENT: For patients with osteopenia, *the fracture risk calculated by FRAX is displayed below*. Offer treatment for osteoporosis (calcium, vitamin D, and medication) if: * ??T less than or equal to -2.5, after excluding or treating secondary causes * ??FRAX gives a 10-year risk of hip fracture greater than or equal to 3% or major osteoporotic fracture (MOF) greater than or equal to 20% * ??Fragility fracture, regardless of T score (fracture without trauma, or from trauma equivalent to falling from standing height or less) If not treating, repeat DXA at the following intervals: * ??T greater than or equal to -1(normal): Repeat DXA in 10-15 years * ??T -1.0 to -1.5 (mild osteopenia): Repeat DXA in 10-15 years * ??T -1.5 to 2.0 (moderate osteopenia): Repeat DXA in 5 years * ??T -2.0 to -2.5 (severe osteopenia): Repeat DXA in 2 years DXA data sheets with BMD measurements and plots are available in [employer] under the imaging tab. Paper copies will be sent to providers without [employer] access. If you have received this report without the data sheet and do not have access to [employer], please contact Radiology Sizing Machine Operator at [phone] Saturday thru Saturday 8am-4pm. ? Bone Density Report ? Name: ?Yessenia Luong Age: ? 73 Sex: ? Female Ethnicity: ? White Date of : 1950 Referring Provider: SAM DAWSON Study: Bone densitometry was performed. Model: MyParichay (S/N [id number]) Terascore version 13.6.0.5 Exam Date: October 18, 2023 Accession number: [id number] Bone Density: Region ? BMD ?T-score ??Z-score ? AP Spine(L1-L4) ?1.348 ?2.7 ?5.1 ? Femoral Neck (Left) ?0.771 ?? -0.7 ?1.4 ? Total Hip (Left) ? 0.977 ?0.3 ?2.0 ? Total Forearm (Left) ? 0.589 ?0.2 ?2.6 ? 1/3 Forearm (Left) ? 0.662 ?? -0.5 ?2.0 ? UD Forearm (Left) ?0.425 ?? -0.3 ?1.5 ? World Health Organization criteria for BMD impression classify patients as: Normal (T-score at or above -1.0), Osteopenia (T-score between -1.0 and -2.5), or Osteoporosis (T-score at or below -2.5). 10-year Fracture Risk: FRAX not reported because: ??All T-scores for Spine Total, Hip Total, Femoral Neck at or above -1.0 ??Treated for osteoporosis Previous Exams: Region ??Exam ? Age ??BMD ?? T-score ??BMD Change ? BMD Change ?Date ?g/cm2 ?vs Baseline ?vs Previous AP Spine (L1-L4) ? 10/18/2023 ??73 ??1.348 ? 2.7 ??0.350 (35.1%)* 0.335 (33.0%)* ? 06/18/2003 ??53 ??1.014 ?-0.3 ?? 0.015 (1.5%) ??-0.019 (-1.9%) ? 06/24/2002 ??52 ??1.033 ?-0.1 ??0.035 (3.5%)* ??0.035 (3.5%)* ? 06/07/2000 ??50 ??0.998 ?-0.4 ? Total Hip(Left) ? 10/18/2023 ??73 ??0.977 ? 0.3 ??-0.143 (-12.8% -0.121 (-11.1% ? 06/18/2003 ??53 ??1.098 ? 1.3 ??-0.021 (-1.9%) -0.010 (-0.9%) ? 06/24/2002 ??52 ??1.108 ? 1.4 ??-0.011 (-1.0%) -0.011 (-1.0%) ? 06/07/2000 ??50 ??1.120 ? 1.5 ? *Denotes significance at 95% confidence level, LSC for AP Spine = 0.022 g/cm2, ??LSC for Total Hip = 0.027 g/cm2 ? Thank you for letting us participate in the care of this patient. ??If you are a health care provider and have any questions regarding this report, please contact the number below. ??For patients who have questions please contact the health med care manager that requested your imaging first. ? Electronically signed by: Luna Curtis MD, [facility] ([phone]), at 10/18/2023 1:08 PM Narrative 10/18/2023 1:08 PM EDT EXAMINATION: DXA CENTRAL SPINE, HIP, AND/OR WHOLE BODY (GENERIC) CLINICAL HISTORY: 73 years Female medically indicated, osteopenia on the last scan, but pt with spontaneous stress fractures of the left foot, suspecting poor bone quality and potential underlining hyperparathyroidism, please include the wrist (as entered by ordering provider) TECHNIQUE: Scans were acquired at the lumbar spine, left forearm and left hip using the [employer] A system. COMPARISON: None FINDINGS: Femoral neck BMD: 0.771 g/cm2 Lowest T-score at a diagnostic region of interest: T-score: -0.7, GERALDINE: Femoral neck, WHO diagnosis: ??normal bone mineral density. Degenerative changes falsely elevate bone mineral density measurements at the lumbar spine. Procedure Note Luna Curtis MD - 10/18/2023 EXAMINATION: DXA CENTRAL SPINE, HIP, AND/OR WHOLE BODY (GENERIC) CLINICAL HISTORY: 73 years Female medically indicated, osteopenia on thelast scan, but pt with spontaneous stress fractures of the left foot,suspecting poor bone quality and potential underlining hyperparathyroidism, please includethe wrist (as entered by ordering provider) TECHNIQUE: Scans were acquired at the lumbar spine, left forearm and lefthip using the [employer] A system. COMPARISON: None FINDINGS: Femoral neck BMD: 0.771 g/cm2 Lowest T-score at a diagnostic region of interest: T-score: -0.7, GERALDINE: Femoral neck, WHO diagnosis: normal bone mineraldensity. Degenerative changes falsely elevate bone mineral density measurements atthe lumbar spine. IMPRESSION 1. Measurements meet WHO criteria for normal bone mineral density. Prevent Fractures! PATIENTS NOT ON TREATMENT: For patients with osteopenia, *the fracture risk calculated by FRAX isdisplayed below*. Offer treatment for osteoporosis (calcium, vitamin D, and medication)if: * T less than or equal to -2.5, after excluding or treating secondarycauses * FRAX gives a 10-year risk of hip fracture greater than or equal to 3%or major osteoporotic fracture (MOF) greater than or equal to 20% * Fragility fracture, regardless of T score (fracture without trauma, orfrom trauma equivalent to falling from standing height or less) If not treating, repeat DXA at the following intervals: * T greater than or equal to -1(normal): Repeat DXA in 10-15 years * T -1.0 to -1.5 (mild osteopenia): Repeat DXA in 10-15 years * T -1.5 to 2.0 (moderate osteopenia): Repeat DXA in 5 years * T -2.0 to -2.5 (severe osteopenia): Repeat DXA in 2 years DXA data sheets with BMD measurements and plots are available in [facility]under the imaging tab. Paper copies will be sent to providers without [employer] access.If you have received this report without the data sheet and do not haveaccess to E-, please contact Radiology Sizing Machine Operator at [phone] Saturday thruFriday 8am-4pm. Bone Density Report Name: Yessenia Luong Age: 73 Sex: Female Ethnicity: White Date of : 1950 Referring Provider: SAM DAWSON Study: Bone densitometry was performed. Model: MyParichay (S/N [id number]) Terascore version 13.6.0.5 Exam Date: October 18, 2023 Accession number: [id number] Bone Density: Region BMD T-score Z-score AP Spine(L1-L4) 1.348 2.7 5.1 Femoral Neck (Left) 0.771 -0.7 1.4 Total Hip (Left) 0.977 0.3 2.0 Total Forearm (Left) 0.589 0.2 2.6 1/3 Forearm (Left) 0.662 -0.5 2.0 UD Forearm (Left) 0.425 -0.3 1.5 World Health Organization criteria for BMD impression classify patients as: Normal (T-score at or above -1.0), Osteopenia (T-score between -1.0 and -2.5), or Osteoporosis (T-score at or below -2.5). 10-year Fracture Risk: FRAX not reported because: All T-scores for Spine Total, Hip Total, Femoral Neck at or above -1.0 Treated for osteoporosis Previous Exams: Region Exam Age BMD T-score BMD Change BMD Change Date g/cm2 vs Baseline vs Previous AP Spine (L1-L4) 10/18/2023 73 1.348 2.7 0.350 (35.1%)* 0.335 (33.0%)* 06/18/2003 53 1.014 -0.3 0.015 (1.5%) -0.019 (-1.9%) 06/24/2002 52 1.033 -0.1 0.035 (3.5%)* 0.035 (3.5%)* 06/07/2000 50 0.998 -0.4 Total Hip(Left) 10/18/2023 73 0.977 0.3 -0.143 (-12.8% -0.121 (-11.1% 06/18/2003 53 1.098 1.3 -0.021 (-1.9%) -0.010 (-0.9%) 06/24/2002 52 1.108 1.4 -0.011 (-1.0%) -0.011 (-1.0%) 06/07/2000 50 1.120 1.5 *Denotes significance at 95% confidence level, LSC for AP Spine = 0.022 g/cm2, LSC for Total Hip = 0.027 g/cm2 Thank you for letting us participate in the care of this patient. If youare a health care provider and have any questions regarding this report,please contact the number below. For patients who have questions please contactthe health med care manager that requested your imaging first. Electronically signed by: Luna Curtis MD, [facility]([phone]), at 10/18/2023 1:08 PM Sam Dawson MD IMG DEXA ORDERABLE S * Comprehensive metabolic panel (non-fasting) (07/30/2023 11:32 AM EST) Glucose 98 65 - 199 mg/dL [facility] Comment:Diabetes: >=200 mg/d L plus symptoms Blood Urea Nitrogen 10 8 - 18 mg/dL [facility] Creatinine 0.75 0.70 - 1.20 mg/dL [facility] Sodium 140 135 - 145 mmol/L [facility] Potassium 4.6 3.5 - 5.0 mmol/L [facility] Comment: Please note: ??Patients with WBC >100,000 may have falsely elevated Potassium levels. ??For accurate Potassium quantification in these patients send serum separator tube (gold top) for subsequent determinations. ??Contact the Clinical Chemistry Laboratory if there are any questions. Chloride 101 98 - 107 mmol/L [facility] Carbon Dioxide 28 22 - 31 mmol/L [facility] Anion Gap 11 5 - 15 mmol/L [facility] Calcium 10.1 8.5 - 10.5 mg/dL [facility] Protein, Total 7.4 6.1 - 8.0 g/dL [facility] Albumin 4.5 3.2 - 5.2 g/dL [facility] Aspartate Aminotransferase 22 0 - 30 unit/L [facility] Alanine Aminotransferase 18 0 - 30 unit/L [facility] Alkaline Phosphatase 77 35 - 105 unit/L [facility] Bilirubin, Total 0.4 0.2 - 1.3 mg/dL [facility] Est Glomerular Filtration Rate 83 >=60 mL/min/1. 73 m?? [facility] Comment: This patient's estimated GFR was calculated using the 2020 CKD-EPI equation. The estimated GFR can vary from the measured GFR by up to 30% in the absence of rapidly changing kidney function. Assessment of the estimated GFR is not appropriate when creatinine concentrations are rapidly changing. For clinical situations in which a more precise estimate of GFR is necessary, consider alternative methods of GFR estimation such as a 24-hour urine creatinine clearance. Assignment of CKD stage 1-5 for patients with an eGFR near the transition point between stages may be based on clinical assessment of muscle mass and symptoms in addition to eGFR. Blood 07/30/2023 11:3 2 AM EST 07/30/2023 11:39 AM EST Narrative Resulting Agency Comment Spec In Lab Sam Dawson MD CHEMISTRY ORDERABL ES [facility] [place] [address] from Last 3 Months or Most Recently Relevant to Health Maintenance Advance Directives * Full Code (Latest Code Status on File) Date Activated Date Inactivated Comments 06/14/2015 4:01 PM 06/15/2015 7:08 PM Question Answer Comments Does patient have capacity to make decision: Yes Care Teams Workers Compensation Claims Assistant Relationship Specialty Start Date End Date Dana Cedillo DO [address] [place] [address] PCP - General Family Medicine 10/16/23
--- OUTSIDE RECORDS SUMMARY | 2024-02-15 13:14 | XMS_ITS | Encounter Summary ---
Author Organization [facility] Address [address] [place] [address] Care Team Providers Care Donor Services Specialist Name Role Phone Chantell Sharma NP Primary Care Provider [phone] Elier Alvarez MD Unavailable Unavailabl e Reason for Visit * Reason Onset Date Comments Other 07/21/2015 Encounter Details Date Type Department Care Team (Late st Contact Info) Description 07/21/2015 Telephone [facility] Dermatology 3rd Floor [facility] [address] [place] [address] Isaak Lloyd MD Other Social History Tobacco Use Types Packs/Day Years Used Date Smoking Tobacco: Never Assessed Sex and Gender Information Value Date Recorded Sex Assigned at Not on file Gender Identity Not on file Sexual Orientation Not on file documented as of this encounter Miscellaneous Notes * Telephone Encounter - Dorothy Ramirez RN - 07/21/2015 1513 EST Patient reports: Has a history of hair thinning Wondering about hair rejuvenation laser Explained to patient that this is not something that is offered at our practice Patient does have a problem with her thyroid and has been put on medication Feels her hair is thin Patient instructed to see her PCP for evaluation and treatment If PCP feels she needs to be seen by Dermatology they will make a referral DOROTHY RAMIREZ RN 07/21/2015 15:17 * Telephone Encounter - Ana Hoff - 07/21/2015 1510 EST Patient has questions concerning how laser could help with hair thinning due to thyroid disorder. documented in this encounter Plan of Treatment Not on file documented as of this encounter Visit Diagnoses Not on filedocumented in this encounter Care Teams Donor Services Specialist Relationship Specialty Start Date End Date Chantell Sharma NP PCP - General 07/21/15 07/21/15 Elier Alvarez MD 07/21/15 07/21/15 documented as of this encounter
--- NOTE | 2024-02-15 13:15 | DI.CT_ITS ---
Exam(s) CT ABDOMEN PELVIS W EXAM: CT ABDOMEN PELVIS W CLINICAL HISTORY: hyponatremia, abd pain diarrhea TECHNIQUE: Imaging Protocol: Axial computed tomography images with coronal and sagittal reformatted images were created and reviewed. CONTRAST MATERIAL: Intravenous: Omnipaque 350 Contrast volume:100 mL Oral: No COMPARISON: No exams were available for comparison FINDINGS: ABDOMEN: Lung Bases: There is a small hiatal hernia. Liver: Normal density. No measurable mass. Portal, Superior Mesenteric, and Splenic Veins: Unremarkable. Gallbladder and Biliary Tract: Cholelithiasis. No biliary ductal dilatation. Pancreas: There is a 3.6 x 2.1 cm cystic lesion in the body of the pancreas (series 9, image 20). Spleen: Normal. Adrenals: No masses seen. Kidneys: Normal size, contour and axis. No radiodense stones or obstructive uropathy. No masses seen. Abdominal Aorta: Abdominal portion non-dilated. Atherosclerotic calcification is present. Bowel: There are diverticula scattered in the colon but no evidence of acute diverticulitis. There i s no bowel wall thickening or obstruction. No evidence of appendicitis. Peritoneal Cavity: No ascites, collection or mesenteric inflammatory response. No free air. Lymph Nodes: Within normal limits. Bones: Within normal limits for the patient's age. There is a left convex lumbar scoliosis. Soft Tissues: Unremarkable. PELVIS: Bladder: Symmetric distention, no gross wall thickening. Reproductive Organs: The uterus is absent. Lymph Nodes: Within normal limits. Bones: Within normal limits for the patient's age. IMPRESSION: 1. No acute abdominal or pelvic process. 2. 3.6 x 2.1 cm pancreatic cystic lesion. Nonemergent MRI of the pancreas is recommended without and with contrast. 3. Colonic diverticulosis without evidence of acute diverticulitis. 4. Cholelithiasis. No biliary ductal dilatation. Unexpected findings RADIATION DOSE DELIVERED: 346.75mGy.cm Total DLP DATA REPOSITORY: All CT scans at this facility are submitted to the National Radiology Data Registry (NRDR) Dose Index Registry (DIR) with the [employer] (ACR). RADIATION OPTIMIZATION: All CT scans at this facility use at least one of these dose optimization te chniques: automated exposure control; mA and/or kV adjustment per patient size (includes targeted exa ms where dose is matched to clinical indication); or iterative reconstruction.
--- OUTSIDE RECORDS SUMMARY | 2024-02-15 13:15 | XMS_ITS | Encounter Summary ---
Author Organization [facility] [place] [address] Care Team Providers Care Tube Laser Operator Name Role Phone Guerline Quigley Rodolfo VALDES Primary Care Provider [phone] Encounter Details Date Type Department Care Team (Late st Contact Info) Description 07/16/2023 Telephone Cardiology at [address] [place] [address] Liam Noel MD [facility] [place] [address] Social History Tobacco Use Types Packs/Day Years Used Date Smoking Tobacco: Former Cigarettes 0.3 10 Smokeless Tobacco: Never Alcohol Use Standard Drinks/Week Comments Yes 0 (1 standard drink = 0.6 oz pur e alcohol) 3-9 glasses per week Sex and Gender Information Value Date Recorded Sex Assigned at Not on file Gender Identity Not on file Sexual Orientation Not on file documented as of this encounter Miscellaneous Notes * Telephone Encounter - Ashlyn Celis RN - 07/17/2023 3:47 PM EST Cholesterol 213. This is very good compared to before starting Nexletol Reminder: she stopped it due malaise and brain fog Current plan: heel seat fitter will treat her osteopenia with a new drug. She wants to try that new drug and see how she tolerates it before restarting the nexletol. * Telephone Encounter - Susan Syrebecca Bella - 07/16/2023 3:26 PM EST Patient called to ask what her cholesterol was on the last test. And is it okay? She said she stop her nexletol with the doctors permission but she fractured her left foot about 6 weeks ago. Was that caused by the medication? Please call her back @ [phone] documented in this encounter Plan of Treatment Upcoming Encounters Date Type Department Care Team (Late st Contact Info) Description 03/13/2024 9:45 AM EDT Office Visit Dermatology at [place] [address] [facility] [address] [place] [address] Emiliano Salinas MD [address], [place]AKARI [place] [address] documented as of this encounter Visit Diagnoses Not on filedocumented in this encounter Care Teams Tube Laser Operator Relationship Specialty Start Date End Date Guerline Quigley APRN PCP - General Family Medicine 03/18/23 09/29/23 documented as of this encounter
--- OUTSIDE RECORDS SUMMARY | 2024-02-15 13:15 | XMS_ITS | Encounter Summary ---
Author Organization [facility] [address] [place] [address] Care Team Providers Care Materials Engineering Technician Name Role Phone Veronica Barrios APRN Primary Care Provider Encounter Details Date Type Department Care Team (Late st Contact Info) Description 08/27/2022 Transcribe Orders eDH Incoming Referrals [phone] Veronica Barrios APRN [address] [place] [address] Social History Tobacco Use Types Packs/Day Years [...] 9:45 AM EDT Office Visit Dermatology at [place] [address] [facility] [place] [address] Emiliano Salinas MD [address] [facility], [place] [address] documented as of this encounter Visit Diagnoses Not on filedocumented in this encounter Care Teams Materials Engineering Technician Relationship Specialty Start Date End Date Veronica Barrios APRN [address] [place] [address] PCP - General Family Medicine 08/27/22 03/17/23 documented as of this encounter
--- OUTSIDE RECORDS SUMMARY | 2024-02-15 13:15 | XMS_ITS | Encounter Summary ---
Author Organization [facility] [place] [address] Care Team Providers Care Staff Radiation Therapist Name Role Phone Guerline Quigley APRN Primary Care Provider [phone] Reason for Visit * Consultation (Routine) - Closed Specialty Diagnoses / Procedures Referred By Veronica brantley Referred To Contact Endocrinology Diagnoses Hypothyroidism, unspecified Other specified disorders of bone density and structure, unspecified site Guerline Quigley APRN [address] [place] [address] [facility] Endocrinology [address] [place] [id number] Referral ID Status Reason Start Date Expiration Date Visits Re quested Visits Authorized [id number] Closed 06/05/2023 06/04/2024 1 1 Encounter Details Date Type Department Care Team (Late st Contact Info) Description 07/30/2023 10:00 AM EST Office [place] [address] Virginia Everett MD [facility] [place] [address] Osteopenia, unspecified location Social History Tobacco Use Types Packs/Day Years [...] on file documented as of this encounter Last Filed Vital Signs Vital Sign Reading Time Taken Comments Blood Pressure 144/66 07/30/2023 9:50 AM EST Pulse 63 07/30/2023 9:50 AM EST Temperature 36.4 ??C (97.5 ??F) 07/30/2023 9:50 AM ES T Respiratory Rate - - Oxygen Saturation 100% 07/30/2023 9:50 AM EST Inhaled Oxygen Concentration - - Weight 75.4 kg (166 lb 3.6 oz) 07/30/2023 9:50 A M EST Height 158.8 cm (5' 2.5) 07/30/2023 9:50 AM EST Body Mass Index 29.92 07/30/2023 9:50 AM EST documented in this encounter Progress Notes * Virginia Everett MD - 07/30/2023 10:00 AM EST Images from the original note were not included. Endocrinology Initial Visit Date of Visit: 07/30/2023 Patient Name: Yessenia Luong : 1950 PCP: Guerline Quigley APRN Reason for Referral: Osteoporosis HPI: Yessenia Luong is a 73 y.o. female with PMH of HLD, THERESA, OA< asthma, hypothyroidism who presents for management of osteoporosis. She is taking 50 mcg of levothyroxine for treatment of hypothyroidism. Year of initial diagnosis of osteopenia: 6 months ago Fractures: - non-traumatic left 2nd metatarsal fracture [...] [x] 701-900 mg [] 901-1100 mg [] 0659-4255 mg [] 8793-0631 mg [] Above 1500 mg ROS: Constitutional: very tired ENT: No dysphagia, dental issues. Cardiovascular: No chest pain or palpitations. Respiratory: No cough, wheezing, shortness of breath. GI: decreased appetite, no nausea, vomiting, diarrhea or constipation. Musculoskeletal: + joint aches, +muscle pain,+ back pain (getting steroid injections) Medications: Current Outpatient Medications on File Prior to Visit Medication Sig Dispense Refill bempedoic acid (Nexletol) 180 mg tablet Take 1 tablet by mouth daily. 90 tablet 3 Vraylar 1.5 mg capsule TAKE ONE CAPSULE BY MOUTH EVERY EVENING WITH FOOD ergocalciferoL, vitamin D2, (vitamin D2) 50,000 unit capsule TAKE ONE CAPSULE BY MOUTH ONCE WEEKLY AT THE SAME TIME EACH WEEK fluticasone propionate (Flonase) 50 mcg/actuation [place], Suspension Every 12 hours. meloxicam (Mobic) 7.5 mg tablet montelukast (Singulair) 10 mg tablet 1 tablet. traZODone (Desyrel) 150 mg tablet Take 150 mg by mouth nightly. icosapent ethyL (Vascepa) 1 gram capsule Take 2 g by mouth 2 times daily. 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 Social Determinants of Health Financial Resource Strain: Not on file Food Insecurity: Not on file Transportation Needs: Not on file Physical Activity: Not on file Intimate Partner Violence: Not on file Housing Stability: Not on file Physical Examination: BP 144/66 Pulse 63 Temp 36.4 ??C (97.5 ??F) Ht 158.8 cm (5' 2.5) Wt 75.4 kg (166 lb 3.6 oz) SpO2 100% BMI 29.92 kg/m?? Appearance: well hydrated, well nourished, oriented x 3, in nad. Lungs: Lungs clear bilaterally Heart : regular rate and rhythm Abdomen - soft, non-tender Extremities: no pitting edema Spine: without kyphosis, without pain on palpation. Patient able to stand up without assistance Labs: Component Latest Ref Rng 07/30/2023 Glucose Lvl [...] 3.5 Magnesium 0.69 - 1.07 mmol/L 0.82 Last DXA scan: will need to obtain records Assessment: Yessenia Luong is a 73 y.o. female with PMH of HLD, THERESA, OA, asthma, hypothyroidism who presents for management of osteoporosis. Reports she tried fosamax in the past but could not tolerate it. Unfortunately I do not have her DXA scan record so we will need to obtain that before deciding about the appropriate treatment. Her kidney function and vitamin D are adequate. She will obtain 24h urine calcium to assess her intake (currently taking supplement and reports the dose is 1200 mg of Ca daily). She is planning to go to [place] for the month of August. Her TFTs are within normal limits while on levothyroxine 50 mcg. Plan: - will obtain DXA scan report and based on the scores decide about the appropriate treatment - Ca and Vit D prescription can be sent to [facility] if needed - continue with current Ca and Vitamin D supplement - continue levothyroxine 50 mcg daily - provided with osteoporosis handouts RTC in 1 year. Time statement: I spent 45 total minutes on this visit today. The time was spent face to face with the patient, on chart review and documentation, ordering labs/studies and coordination of care. Virginia Everett MD documented in this encounter Plan of Treatment Upcoming Encounters Date Type Department Care Team (Late st Contact Info) Description 03/13/2024 9:45 AM EDT Office Visit Dermatology at [place] [address] [place] [phone] Emiliano Salinas MD [address], [place] [address] Scheduled Orders Name Type Priority Associated Diagnoses Orde r Schedule Calcium, urine, 24 hour Lab Routine Osteopenia, unspecified location Expected: 07/30/2023, Expires: 01/29/2024 Creatinine, urine, 24 hour Lab Routine Osteopenia, unspecified location Expected: 07/30/2023, Expires: 01/29/2024 documented as of this encounter Procedures Procedure Name Priority Date/Time Associated Diagnosis Comments PTH Routine 07/30/2023 11:32 AM EST Osteopenia, unspecified location VITAMIN D, 25-HYDROXY Routine 07/30/2023 11:32 AM EST Osteopenia, unspecified location TSH Routine 07/30/2023 11:32 AM EST Osteopenia, unspecified location T4, FREE Routine 07/30/2023 11:32 AM EST Osteopenia, unspecified location PHOSPHORUS Routine 07/30/2023 11:32 AM EST Osteopenia, unspecified location MAGNESIUM Routine 07/30/2023 11:32 AM EST Osteopenia, unspecified location COMPREHENSIVE METABOLIC PANEL Routine 07/30/2023 11:32 AM EST Osteopenia, unspecified location documented in this encounter Results * T4, free (07/30/2023 11:32 AM EST) Free T4 1.37 0.93 - 1.70 ng/dL [facility] Comment: Reference Interval (ng/dL): Females: ??First Trimester: 0.97-1.68 ??Second Trimester: 0.77-1.51 ??Third Trimester: 0.77-1.49 Blood 07/30/2023 11:3 2 AM EST 07/30/2023 11:39 AM EST Narrative Resulting Agency Comment Spec In Lab Virginia Everett MD CHEMISTRY ORDERABL ES Performing Organization Address City/[facility] Co de Phone Number [facility] [place] [place] [address] * TSH (07/30/2023 11:32 AM EST) Thyroid Stimulating Hormone 1.96 0.27 - 4.20 mcIU/mL [facility] Comment: Reference Interval (mcIU/mL): Females: ??First Trimester: 0.23-3.88 ??Second Trimester: 0.22-3.90 ??Third Trimester: 0.44-4.66 Blood 07/30/2023 11:3 2 AM EST 07/30/2023 11:39 AM EST Narrative Resulting Agency Comment Spec In Lab Virginia Everett MD CHEMISTRY ORDERABL ES Performing Organization Address City/[facility] Co de Phone Number [facility] [place] [place] [address] * PTH (07/30/2023 11:32 AM EST) Parathyroid Hormone 43 15 - 65 pg/mL [facility] Blood 07/30/2023 11:3 2 AM EST 07/30/2023 11:39 AM EST Narrative Resulting Agency Comment Spec In Lab Virginia Everett MD CHEMISTRY ORDERABL ES Performing Organization Address City/[facility]/ZIP Co de Phone Number [facility] [place] [place] [address] * Phosphorus (07/30/2023 11:32 AM EST) Phosphorus 3.5 2.5 - 4.5 mg/dL [facility] Blood 07/30/2023 11:3 2 AM EST 07/30/2023 11:39 AM EST Narrative Resulting Agency Comment Spec In Lab Virginia Everett MD CHEMISTRY ORDERABL ES Performing Organization Address [facility] de Phone Number [facility] [place] [place] [address] * Magnesium (07/30/2023 11:32 AM EST) Magnesium 0.82 0.69 - 1.07 mmol/L [facility] Blood 07/30/2023 11:3 2 AM EST 07/30/2023 11:39 AM EST Narrative Resulting Agency Comment Spec In Lab Virginia Everett MD CHEMISTRY ORDERABL ES Performing Organization Address [facility] de Phone Number [facility] [place] [address] * Vitamin D, 25-Hydroxy (07/30/2023 11:32 AM EST) Vitamin D Total 25 OH 59 21 - 100 ng/mL [facility] Vit D Interp Sufficient [facility] Blood 07/30/2023 11:3 2 AM EST 07/30/2023 11:39 AM EST Narrative Resulting Agency Comment Spec In Lab Virginia Everett MD CHEMISTRY ORDERABL ES Performing Organization Address [facility] Co de Phone Number [facility] [place] [address] * Comprehensive metabolic panel (non-fasting) (07/30/2023 11:32 AM EST) Glucose 98 65 - 199 mg/dL [facility] Comment:Diabetes: >=200 mg/d L plus symptoms Blood Urea Nitrogen 10 8 - 18 mg/dL [facility] Creatinine 0.75 0.70 - 1.20 mg/dL [facility] Sodium 140 135 - 145 mmol/L [facility] Potassium 4.6 3.5 - 5.0 mmol/L [facility] Comment: Please note: ??Patients with WBC >100,000 may have falsely elevated Potassium levels. ??For accurate Potassium quantification in these patients send serum separator tube (gold top) for subsequent determinations. ??Contact the Clinical Chemistry Laboratory if there are any questions. Chloride 101 98 - 107 mmol/L [facility] Carbon Dioxide 28 22 - 31 mmol/L [facility] Anion Gap 11 5 - 15 mmol/L [facility] Calcium 10.1 8.5 - 10.5 mg/dL [facility] Protein, Total 7.4 6.1 - 8.0 g/dL [facility] Albumin 4.5 3.2 - 5.2 g/dL [facility] Aspartate Aminotransferase 22 0 - 30 unit/L [facility] Alanine Aminotransferase 18 0 - 30 unit/L [facility] Alkaline Phosphatase 77 35 - 105 unit/L [facility] Bilirubin, Total 0.4 0.2 - 1.3 mg/dL [facility] Est Glomerular Filtration Rate 83 >=60 mL/min/1. 73 m?? [facility] Comment: This patient's estimated GFR [...] Narrative Resulting Agency Comment Spec In Lab Virginia Everett MD CHEMISTRY ORDERABL ES [facility] [place] [address] documented in this encounter Visit Diagnoses Diagnosis Osteopenia, unspecified location documented in this encounter Care Teams Staff Radiation Therapist Relationship Specialty Start Date End Date Guerline Quigley APRN PCP - General Family Medicine 03/18/23 09/29/23 documented as of this encounter
--- OUTSIDE RECORDS SUMMARY | 2024-02-15 13:15 | XMS_ITS | Encounter Summary ---
Author Organization [facility] [place] [address] Care Team Providers Care Wind Technician Name Role Phone Veronica Barrios Liyah VALDES Primary Care Provider [phone] Encounter Details Date Type Department Care Team (Late st Contact Info) Description 12/27/2022 Ancillary Procedure [place] [phone] Guerline Quigley APRN [address] [place] [address] Social History Tobacco Use Types Packs/Day Years [...] 9:45 AM EDT Office Visit Dermatology at [address] [place] [phone] Emiliano Salinas MD [address] [facility], [place] [address] documented as of this encounter Procedures Procedure Name Priority Date/Time Associated Diagnosis Comments FILM LIBRARY- STORAGE ONLY DXA IMAGES Routine 12/27/2022 12:00 AM EDT documented in this encounter Results * Film Library- Storage Only DXA Images (12/27/2022 12:00 AM EDT) Narrative [facility] - 08/07/2023 3:20 PM EST This exam is auto-finalizing. It's purpose is for storage only. Guerline Quigley APRN [employer] FILM LIBRARY ORD ERABLES Performing Organization Address City/State/[facility] Co de Phone Number [place], [place] documented in this encounter Visit Diagnoses Not on filedocumented in this encounter Care Teams Wind Technician Relationship Specialty Start Date End Date Veronica Barrios APRN [address] [place] [address] PCP - General Family Medicine 08/27/22 03/17/23 documented as of this encounter
--- OUTSIDE RECORDS SUMMARY | 2024-02-15 13:15 | XMS_ITS | Encounter Summary ---
Author Organization [facility] [place] [address] Care Team Providers Care Medical Surgical Tech Name Role Phone Veronica Barrios Liyah VALDES Primary Care Provider Encounter Details Date Type Department Care Team (Late st Contact Info) Description 09/20/2022 Telephone Cardiology at [address] [place] [address] Liam Noel MD [facility] [place] [address] Social History Tobacco Use Types Packs/Day Years [...] Telephone Encounter - Ashlyn Celis RN - 09/20/2022 1:23 PM EDT The provider will decide and order lab work AFTER the first appointment. * Telephone Encounter - Chantell Sy - 09/20/2022 11:56 AM EDT Patient called because she is going to see Dr Noel in October as a new patient. She would like him to order cholesterol labs to be done at [place] before the appointment. Please call her @ [phone] documented in this encounter Plan of Treatment Upcoming Encounters Date Type Department Care Team (Late st Contact Info) Description 03/13/2024 9:45 AM EDT Office Visit Dermatology at [place] [address] [facility] [place] [phone] Emiliano Salinas MD [address] [facility], MANINDER Bhatt DERMATOLOGY [place], [place] [id number] documented as of this encounter Visit Diagnoses Not on filedocumented in this encounter Care Teams Medical Surgical Tech Relationship Specialty Start Date End Date eVronica Barrios APRN [address] [place] [address] PCP - General Family Medicine 08/27/22 03/17/23 documented as of this encounter
--- OUTSIDE RECORDS SUMMARY | 2024-02-15 13:15 | XMS_ITS | Encounter Summary ---
Author Organization Formerly [facility] Address [facility] [place] [address] Care Team Providers Care Parachute Marker Name Role Phone Guerline Quigley Rodolfo VALDES Primary Care Provider [phone] Reason for Visit * Reason Comments Hyperlipidemia Encounter Details Date Type Department Care Team (Late st Contact Info) Description 03/18/2023 3:00 PM EDT Office Visit Cardiology at [address] [address] Liam Noel MD [facility] [place] [address] Mixed hyperlipidemia Social History Tobacco Use Types [...] Sign Reading Time Taken Comments Blood Pressure 137/72 03/18/2023 3:00 PM EDT Pulse 93 03/18/2023 3:00 PM EDT Temperature - - Respiratory Rate - - Oxygen Saturation - - Inhaled Oxygen Concentration - - Weight 74.4 kg (164 lb) 03/18/2023 3:00 PM EDT Height 158.8 cm (5' 2.5) 03/18/2023 3:00 PM EDT Body Mass Index 29.52 03/18/2023 3:00 PM EDT documented in this encounter Progress Notes * Liam Noel MD - 03/18/2023 3:00 PM EDT Images from the original note were not included. Subjective: Patient ID: Yessenia Luong is a 73 y.o. female who presents on follow-up for: Chief Complaint Patient presents with Hyperlipidemia HPI Last seen by me 10/2022, at which time Nexletol was restarted at QOD dose. She started taking it QD in January without issue at first, though re-noted brain fog after a few more weeks and has recently been taking it 3-4x/week Since then, she has experienced no new symptoms, including with exertion. She has been trying different atypical anti-psychotics for mood to varying effect and side effect Current Outpatient Medications Medication Instructions acetaminophen (TYLENOL) 1,000 mg, Oral, EVERY 6 HOURS PRN EPINEPHrine 0.3 mg/0.3 mL Auto-Injector PRN ergocalciferoL, vitamin D2, (vitamin D2) 50,000 unit capsule TAKE ONE CAPSULE BY MOUTH ONCE WEEKLY AT THE SAME TIME EACH WEEK estradiol (ESTRACE) 0.01 % (0.1 mg/gram) Cream APPLY 1 GRAM VAGINALLY TWICE A WEEK DIRECTED fluticasone propionate (Flonase) 50 mcg/actuation [place], Suspension EVERY 12 HOURS icosapent ethyL (VASCEPA) 2 g, Oral, 2 TIMES DAILY meloxicam (Mobic) 7.5 mg tablet No dose, route, or frequency recorded. montelukast (Singulair) 10 mg tablet 1 tablet Nexletol 180 mg, Oral, DAILY PROVENTIL HFA 90 mcg/actuation HFA Aerosol Inhaler inhale 2 puffs by mouth if needed traZODone (DESYREL) 150 mg, Oral, NIGHTLY Vraylar 1.5 mg capsule TAKE ONE CAPSULE BY MOUTH EVERY EVENING WITH FOOD Patient Active Problem List Diagnosis Mixed hyperlipidemia Adverse effects to psck9i, zetia, statin Urinary urgency Arthritis of carpometacarpal (CMC) joint of both thumbs Hypothyroidism Lumbosacral spondylosis without myelopathy Mixed anxiety depressive disorder Mixed incontinence Restless legs syndrome Varicose veins of left lower extremity with pain Venous insufficiency of both lower extremities Allergy to insect stings Mild intermittent asthma Chronic urticaria Solar lentigo Urinary incontinence, urge Osteoarthritis THERESA (obstructive sleep apnea) Androgenetic alopecia Rosacea Objective: BP 137/72 (BP Location (NBP): Left arm, Patient Position: Sitting, BP Cuff Sizes: Adult (25-34 cm)) Pulse 93 Ht 158.8 cm (5' 2.5) Wt 74.4 kg (164 lb) BMI 29.52 kg/m?? Gen: pleasant female in NAD Cor: rrr, s1/s2 of nl character and amplitude, no m/r/g. Estimated RAP not elevated. Carotids with normal upstroke without bruit. Pulm: CTAB. Normal diaphragmatic movement without use of accessory muscles Labs 03/2023 ([facility]) Uric acid 6.0 TSH 1.62 LDL 187 TG 100 HDL 74 Assessment and Plan: Mixed hyperlipidemia Reviewed with patient that although the LDL did decrease compared to prior (previously 236), the extent to which it is still elevated did not lead to a significant MACE risk decrease. We are pursuingcholesterol lowering therapy in effort to remove a [...] the many possibilities of perceived side effects tomedications; my position is that if she, for [...] of both her cholesterol control as well asa means to reduce MACE RTC pending cholesterol profile in 3 months Liam Noel MD documented in this encounter Miscellaneous Notes * Assessment & Plan Note - Liam Noel MD - 03/19/2023 8:34 AM EDT Associated Problem(s): Mixed hyperlipidemia Reviewed with patient that although the LDL did decrease compared to prior (previously 236), the extent to which it is still elevated did not lead to a significant MACE risk decrease. We are pursuingcholesterol lowering therapy in effort to remove a modifiable risk factor. Discussed that being compliant to prescribed therapy is especially important in setting of the administration of atypical anti-psychotics, which as a drug class effect increase cholesterol. The last alternative to cholesterol lowering had been brought up in the past with her former provider, being inclisiran. I do not think this would be a good idea in a patient with numerous proposed side effects to medication, as the effect lasts 6 months. Spent more time discussing the many possibilities of perceived side effects tomedications; my position is that if she, for [...] of both her cholesterol control as well asa means to reduce MACE documented in this encounter Plan of Treatment Upcoming Encounters Date Type Department Care Team (Late st Contact Info) Description 03/13/2024 9:45 AM EDT Office Visit Dermatology at [place] [address] [facility] [place] [address] Emiliano Salinas MD [address] [facility], [place] [address] documented as of this encounter Visit Diagnoses Diagnosis Mixed hyperlipidemia documented in this encounter Care Teams Parachute Marker Relationship Specialty Start Date End Date Guerline Quigley APRN PCP - General Family Medicine 03/18/23 09/29/23 documented as of this encounter
--- OUTSIDE RECORDS SUMMARY | 2024-02-15 13:15 | XMS_ITS | Encounter Summary ---
Author Organization [facility] [place] [address] Care Team Providers Care Superintendent Tests Name Role Phone Guerline Quigley KEISHA Primary Care Provider [phone] Encounter Details Date Type Department Care Team (Late st Contact Info) Description 06/19/2023 Orders Only Cardiology at [address] [place] [address] Liam Noel MD [facility] [place] [address] Mixed hyperlipidemia; Chronic urticaria; Hypothyroidism, unspecified type Social History Tobacco Use Types Packs/Day Years [...] 9:45 AM EDT Office Visit Dermatology at [address] [place] [address] Emiliano Salinas MD [address] [facility] [address], [place] [address] documented as of this encounter Visit Diagnoses Diagnosis Mixed hyperlipidemia Chronic urticaria Other specified urticaria Hypothyroidism, unspecified type documented in this encounter Care Teams Superintendent Tests Relationship Specialty Start Date End Date Guerline Quigley APRN PCP - General Family Medicine 03/18/23 09/29/23 documented as of this encounter
--- OUTSIDE RECORDS SUMMARY | 2024-02-15 13:15 | XMS_ITS | Encounter Summary ---
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 90 tablet 3 09/30/2023 calcium carbonate/vitamin D3 (CALCIUM WITH VITAMIN D3 ORAL) Take by mouth daily. fexofenadine (Glory) 180 mg tablet Take 180 mg by mouth daily. levothyroxine (Synthroid) 50 mcg tablet TAKE ONE TABLET BY MOUTH EVERY MORNING ON AN EMPTY STOMACH Vraylar 1.5 mg capsule TAKE ONE CAPSULE BY MOUTH EVERY EVENING WITH FOOD 10/21/2022 fluticasone propionate (Flonase) 50 mcg/actuation [place], Suspension Every 12 hours. 10/17/2020 meloxicam (Mobic) 7.5 mg tablet 06/14/2022 traZODone (Desyrel) 150 mg tablet Take 150 mg by mouth nightly. 10/24/2022 icosapent ethyL (Vascepa) 1 gram capsule Take 2 g by mouth 2 times daily. 360 capsule 3 10/29/2022 EPINEPHrine 0.3 mg/0.3 mL Auto-Injector as needed. 3 01/30/2019 estradiol (ESTRACE) 0.01 % (0.1 mg/gram) Cream APPLY 1 GRAM VAGINALLY TWICE A WEEK DIRECTED 0 11/12/2017 PROVENTIL HFA 90 mcg/actuation HFA Aerosol Inhaler inhale 2 puffs by mouth if needed 0 10/14/2017 acetaminophen (TYLENOL) 500 mg Tablet Take 2 tablets by mouth every 6 hours as needed for Pain (for MODERATE pain). 30 tablet 1 06/15/2015 bempedoic acid (Nexletol) 180 mg tabletIndications:Mixed hyperlipidemia Take 1 tablet by mouth daily. 90 tablet 3 08/08/2023 02/11/2024 montelukast (Singulair) 10 mg tablet 1 tablet. 10/19/2022 01/22/2024 documented as of this encounter Plan of Treatment Upcoming Encounters Date Type Department Care Team (Late st Contact Info) Description 03/13/2024 9:45 AM EDT Office Visit Dermatology at [place] [address] [facility] [place] [phone] Emiliano Salinas MD [address] [facility] [address], MANIND[place] [address] documented as of this encounter Procedures Procedure Name Priority Date/Time Associated Diagnosis Comments DXA CENTRAL SPINE, HIP, AND/OR WHOLE BODY (GENERIC) Routine 10/18/2023 10:49 AM EDT 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, subsequent encounter documented in this encounter Results * DXA Central Spine, Hip, and/or Whole Body (Generic) (10/18/2023 10:49 AM EDT) [employer] WORKSTATION ID [id number] [facility] Anatomical Region Laterality Modality C-spine, Hip [...] BMD measurements and plots are available in E- under the imaging tab. Paper copies will be sent to providers without E- access. If you have received this report without the data sheet and do not have access to [employer], please contact Radiology Rock Climbing Instructor at [phone] Saturday thru Saturday 8am-4pm. ? Bone Density Report ? Name: ?Yessenia Luong Age: ? 73 Sex: ? Female Ethnicity: ? White Date of : 1950 Referring Provider: SAM DAWSON Study: Bone densitometry was performed. Model: [employer] A (S/N [id number]) SW version 13.6.0.5 Exam Date: October 18, 2023 Accession number: [id number] Bone Density: Region ? BMD ?T-score ??Z-score [...] who have questions please contact the health caregivers non medical that requested your imaging first. ? Narrative 10/18/2023 1:08 PM EDT EXAMINATION: DXA [...] left forearm and left hip using the Hologic Horizon A system. COMPARISON: None FINDINGS: Femoral [...] spine, left forearm and lefthip using the Hologic Horizon A system. COMPARISON: None FINDINGS: Femoral [...] BMD measurements and plots are available in [employer] the imaging tab. Paper copies will be sent to providers without [employer] access.If you have received this report without the data sheet and do not haveaccess to [employer], please contact Radiology Rock Climbing Instructor at [phone] Saturday 8am-4pm. Bone Density Report Name: Yesseina Luong Age: 73 Sex: Female Ethnicity: White Date of : 1950 Referring Provider: SAM DWASON Study: Bone densitometry was performed. Model: Malachi Bhatt (S/N [id number]) version 13.6.0.5 Exam Date: October 18, 2023 Accession number: [id number] Bone Density: Region BMD T-score Z-score AP [...] patients who have questions please contactthe health caregivers non medical that requested your imaging first. Sam Dawson MD IMG DEXA ORDERABLE S documented in this encounter Visit Diagnoses Diagnosis 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, subsequent encounter documented in this encounter Care Teams Tree Surgeon Relationship Specialty Start Date End Date Dana Cedillo DO [address] [place] [address] PCP - General Family Medicine 10/16/23 documented as of this encounter
--- OUTSIDE RECORDS SUMMARY | 2024-02-15 13:15 | XMS_ITS | Encounter Summary ---
Author Organization [facility] Address [facility] [place] [address] Care Team Providers Care Day Habilitation Specialist Name Role Phone Guerline Quigley Rodolfo VALDES Primary Care Provider [phone] Reason for Visit * Reason Onset Date Comments Abnormal Bruising 05/20/2023 Encounter Details Date Type Department Care Team (Late st Contact Info) Description 05/20/2023 Telephone Cardiology at [address] [address] Liam Noel MD [facility] [place] [address] Abnormal Bruising Social History Tobacco Use Types Packs/Day Years [...] Telephone Encounter - Ashlyn Celis RN - 05/20/2023 9:58 AM EST Call back to Yessenia's number: the outgoing message does not identify her. The symptoms you described may not be caused by what you are guessing it to be. Recommendation: new bruising should be evaluated by a doctor. Call back to [phone] to ask for a nurse if you need to discuss it further. * Telephone Encounter - KerrieChantell Jena - 05/20/2023 9:10 AM EST Patient called because her left foot swelled on the top and got black and blue. She said she looked up online and clogged arteries can do that. Please call her back @ [phone] documented in this encounter Plan of Treatment Upcoming Encounters Date Type Department Care Team (Late st Contact Info) Description 03/13/2024 9:45 AM EDT Office Visit Dermatology at [place] [address] [facility] [place] [address] Emiliano Salinas MD [address] [facility], BAKAR[place] [address] documented as of this encounter Visit Diagnoses Not on filedocumented in this encounter Care Teams Day Habilitation Specialist Relationship Specialty Start Date End Date Guerline Quigley APRN PCP - General Family Medicine 03/18/23 09/29/23 documented as of this encounter
--- OUTSIDE RECORDS SUMMARY | 2024-02-15 13:15 | XMS_ITS | Encounter Summary ---
Author Organization [facility] [place] [address] Care Team Providers Care Log Stacker Operator Name Role Phone Guerline Quigley KEISHA Primary Care Provider [phone] Encounter Details Date Type Department Care Team (Late st Contact Info) Description 09/30/2023 Orders Only Cardiology at [address] [place] [address] Liam Noel MD [facility] [place] [address] Mixed hyperlipidemia Social History Tobacco Use Types [...] 9:45 AM EDT Office Visit Dermatology at [address] [place] [address] Emiliano Salinas MD [address] [facility] [address], [place] [address] documented as of this encounter Visit Diagnoses Diagnosis Mixed hyperlipidemia documented in this encounter Care Teams Log Stacker Operator Relationship Specialty Start Date End Date Guerline Quigley APRN PCP - General Family Medicine 09/30/23 10/15/23 documented as of this encounter
--- OUTSIDE RECORDS SUMMARY | 2024-02-15 13:15 | XMS_ITS | Encounter Summary ---
Author Organization [facility] [place] [address] Care Team Providers Care Accordion Maker Name Role Phone Guerline Quigley Rodolfo VALDES Primary Care Provider [phone] Encounter Details Date Type Department Care Team (Late st Contact Info) Description 05/15/2023 Telephone Cardiology at [address] [place] [address] Liam Noel MD [facility] [place] [address] Social History Tobacco Use Types Packs/Day Years [...] Telephone Encounter - Ashlyn Celis RN - 05/15/2023 9:36 AM EST Yessenia Luong called to verify that the lipid panel is ordered for June - : to be completed between Jun 18 and March 17, 2024 Yessenia Noel add CPK test to the order documented in this encounter Plan of Treatment Upcoming Encounters Date Type Department Care Team (Late st Contact Info) Description 03/13/2024 9:45 AM EDT Office Visit Dermatology at [place] [address] [facility] [place] [address] Emiliano Salinas MD [address] [facility] [address], [place] [address] documented as of this encounter Visit Diagnoses Diagnosis Mixed hyperlipidemia documented in this encounter Care Teams Accordion Maker Relationship Specialty Start Date End Date Guerline Quigley APRN PCP - General Family Medicine 03/18/23 09/29/23 documented as of this encounter
--- OUTSIDE RECORDS SUMMARY | 2024-02-15 13:15 | XMS_ITS | Encounter Summary ---
Author Organization [facility] [place] [address] Care Team Providers Care Director Of Medical Staff Services Name Role Phone Guerline Quigley KEISHA Primary Care Provider [phone] Encounter Details Date Type Department Care Team (Late st Contact Info) Description 08/15/2023 Telephone [place] [address] Virginia Everett MD [facility] [place] [address] Social History Tobacco Use Types Packs/Day Years [...] encounter Miscellaneous Notes * Telephone Encounter - Beth Deleon - 08/15/2023 11:12 AM EST Patient calling in regards to her Dexa scan and being able to start [place]. Please revew scans. documented in this encounter Plan of Treatment Upcoming Encounters Date Type Department Care Team (Late st Contact Info) Description 03/13/2024 9:45 AM EDT Office Visit Dermatology at [place] [address] [facility] [place] [address] Emiliano Salinas MD [address], MANIND[place] [address] documented as of this encounter Visit Diagnoses Not on filedocumented in this encounter Care Teams Director Of Medical Staff Services Relationship Specialty Start Date End Date Guerline Quigley APRN PCP - General Family Medicine 03/18/23 09/29/23 documented as of this encounter
--- OUTSIDE RECORDS SUMMARY | 2024-02-15 13:15 | XMS_ITS | Encounter Summary ---
Author Organization [facility] [place] [address] Care Team Providers Care Mission Support Specialist Name Role Phone Guerline Quigley DIRECTOR MARKETING COMMUNICATIONS Primary Care Provider [phone] Encounter Details Date Type Department Care Team (Late st Contact Info) Description 03/18/2023 External Results Cardiology at [address] [address] Ashlyn Celis, RN Social History [...] 9:45 AM EDT Office Visit Dermatology at [address] [address] Emiliano Salinas MD [address] [facility] [place] [address] documented as of this encounter Procedures Procedure Name Priority Date/Time Associated Diagnosis Comments LIPID EXTERNAL LAB PANEL Routine 03/14/2023 10:00 AM EDT documented in this encounter Results * Lipid External Lab Panel (03/14/2023 10:00 AM EDT) Cholesterol, Total 280 [facility] Triglyceride 100 [facility] HDL Cholesterol 74 [facility] LDL Cholesterol 186.8 [facility] 03/14/2023 10:0 0 AM EDT Historical Provider EXTERNAL LAB HERMELINDA CURTIS [facility] [address] [place] [address], [facility] [phone] documented in this encounter Visit Diagnoses Not on filedocumented in this encounter Care Teams Mission Support Specialist Relationship Specialty Start Date End Date Guerline Quigley, DIRECTOR MARKETING COMMUNICATIONS PCP - General Family Medicine 03/18/23 09/29/23 documented as of this encounter
--- OUTSIDE RECORDS SUMMARY | 2024-02-15 13:15 | XMS_ITS | Encounter Summary ---
Author Organization [facility] Address [facility] [place] [address] Care Team Providers Care Radiologist Diagnostic Name Role Phone Veronica Barrios CHIEF JAILER Primary Care Provider Reason for Visit * Reason Comments Skin Problem Encounter Details Date Type Department Care Team (Late st Contact Info) Description 08/30/2022 8:45 AM EDT Office Visit Dermatology at [facility] [address] [place] [address] Star Moura MD [facility] [address] [place] [address] Encounter for cosmetic procedure Social History Tobacco Use Types Packs/Day Years [...] as of this encounter Progress Notes * Anthony Batres CCMA - 08/30/2022 8:45 AM EDT Images from the original note were not included. Cosmetic Note: Xeomin Date of service: 08/28/2022 Yessenia Luong : 1950 Provider: Star Moura MD, MD Xeomin PROCEDURE NOTE HPI Yessenia Luong is a 72 y.o. year old female. Here for Xeomin ADR: Allergies Allergen Reactions ??? Morphine Diarrhea and GI upset Other reaction(s): Nausea ??? Oxycodone Hcl Other reaction(s): Nausea ??? Penicillins Other reaction(s): Nausea ??? Atorvastatin Calcium ??? Bee Pollen ??? Celecoxib ??? Potassium Clavulanate ??? Rosuvastatin Calcium ??? Simvastatin ??? Sulfa (Sulfonamide Antibiotics) ??? Sulfamethoxazole ??? Trimethoprim ??? Fenofibrate ??? Voltaren [Diclofenac Sodium] Assessment and Plan: #. Increased facial furrowing, hyperlinearity and wrinkles amenable to Xeomin -mechanism of action of the medication, what to expect, potential complications (brow/lid drooping), temporary effect, - Effects lasts 3-6 months and decreases the appearance deep wrinkles due to facial muscle contraction. -The most common complaint is mild but tolerable pain at the injection site. Occasionally, bruisingcan occur at the site, especially if the patient takes aspirin or ibuprofen(within 2 weeks), or Coumadin. Headaches have been reported post-injection but are rare. The most worrisome complication is ptosis or eyelid drooping, which has been reported between 1-5% of the time after injection. This isvery rare and temporary. -.Patient understood these potential risks and expectations and wished to proceed. PLAN/PROCEDURE: Botulinum Intramuscular Injection 1. Discussed botox injection in detail, answered all questions, verbal and written consent obtained. Risk of pain at injection site, bruising, headache, redness, ptosis and partial response discussedand understood. 2. Discussed amount/units of Xeomin required today, as I discussed with patient. Proceeded with 50 units of Xeomin injected into the glabella & forehead & crows feet. LOT: [id number] EXP:2023-06 3. Post-injection care reviewed. Call with any questions or concerns. 4. Reviewed pricing structure: $500 for 50 unit vial Patient Paid: $500 FOLLOW UP I am documenting this encounter acting as the scribe for and in the presence of TAQUERIA Cuello I performed the above scribed service and agree with the accuracy of the documentation in this encounter. Reviewed and signed by Star Moura MD Department of Dermatology [facility] documented in this encounter Plan of Treatment Upcoming Encounters Date Type Department Care Team (Late st Contact Info) Description 03/13/2024 9:45 AM EDT Office Visit Dermatology at [place] [address] [facility] [place] [address] Emiliano Salinas MD 580 [facility], [place] [address] documented as of this encounter Visit Diagnoses Diagnosis Encounter for cosmetic procedure documented in this encounter Care Teams Radiologist Diagnostic Relationship Specialty Start Date End Date Veronica Barrios APRN [address] [place] [address] PCP - General Family Medicine 08/27/22 03/17/23 documented as of this encounter
--- OUTSIDE RECORDS SUMMARY | 2024-02-15 13:15 | XMS_ITS | Encounter Summary ---
Author Organization [facility] Address [facility] [place] [address] Care Team Providers Care Manager Civil Name Role Phone Veronica Barrios Liyah VALDES Primary Care Provider Reason for Visit * Reason Comments Medication Refill Encounter Details Date Type Department Care Team (Late st Contact Info) Description 01/22/2023 Refill Cardiology at [address] [address] Liam Noel MD [facility] [place] [address] Medication Refill Social History Tobacco Use Types [...] Telephone Encounter - Sarah Shannon RN - 01/23/2023 9:53 AM EDT Contacted Yessenia who states she has been taking this medication daily for the past approx. 3 weeks without any adverse symptoms. documented in this encounter Plan of Treatment Upcoming Encounters Date Type Department Care Team (Late st Contact Info) Description 03/13/2024 9:45 AM EDT Office Visit Dermatology at [place] [address] [facility] [place] [address] Emiliano Salinas MD [address] [facility], BAKARI [place]hat[place] [address] documented as of this encounter Visit Diagnoses Diagnosis Mixed hyperlipidemia documented in this encounter Care Teams Manager Civil Relationship Specialty Start Date End Date Veronica Barrios APRN [address] [place] [address] PCP - General Family Medicine 08/27/22 03/17/23 documented as of this encounter
--- OUTSIDE RECORDS SUMMARY | 2024-02-15 13:15 | XMS_ITS | Encounter Summary ---
Author Organization [facility] [place] [address] Care Team Providers Care Customer Technical Services Manager Name Role Phone Veronica Barrios KEISHA Primary Care Provider Encounter Details Date Type Department Care Team (Latest Contact Info) Description 09/03/2022 Orders Only Cardiology at [address] [address] Liam Noel MD [facility] [place] [place] [address] Familial hypercholesterolemia Social History Tobacco Use Types Packs/Day Years [...] 9:45 AM EDT Office Visit Dermatology at [address] [place] [phone] Emiliano Salinas MD [address] [place] [address] RD, [place] [address] documented as of this encounter Visit Diagnoses Diagnosis Familial hypercholesterolemia Pure hypercholesterolemia documented in this encounter Care Teams Customer Technical Services Manager Relationship Specialty Start Date End Date Veronica Barrios APRN [address] [place] [address] PCP - General Family Medicine 08/27/22 03/17/23 documented as of this encounter
--- OUTSIDE RECORDS SUMMARY | 2024-02-15 13:15 | XMS_ITS | Encounter Summary ---
[place] [address] Care Team Providers Care Collection Teller Name Role Phone Mary Altamirano MD Primary Care Provider Reason for Visit * Reason Comments Prior Authorization Repatha 140mg/mL pen s Encounter Details Date Type Department Care Team (Late st Contact Info) Description 08/06/2022 Specialty [place] [address] Skyler Garcia, QUALITY ASSURANCE CLERK Social History Tobacco Use Types Packs/Day Years [...] as of this encounter Progress Notes * Skyler Garcia - 08/06/2022 2:07 PM EST [facility], Medication Prior Authorization Submission Patient: Yessenia Luong Patient : 1950 Patient Address: [address] [address] (home) Medication Name: REPATHA SURECLICK 140 MG/ML SUBCUTANEOUS PEN INJECTOR Medication ID: [id number] Subscriber Insurance: [facility] Part D Subscriber Insurance Comment: Phone: Fax: Physician: KALEIGH ALEXANDRE Physician Comment: Sent Via: [facility] Gonsales: [id number] Ref/Case/PA#: Medication Strength Frequency Requested: evolocumab (Repatha SureClick) 140 mg/mL Pen Injector, 1 pen every 14 days Qty/Day Supply: 08/07 New Start: New to Therapy Diagnosis & ICD-10 Code: Familial hypercholesterolemia E78.01 Patient Notified: Left Voicemessage Submission Notes: None Skyler Garcia 08/06/22 2:14 PM * Nam Chan - 08/06/2022 2:07 PM EST Pending Sale To [facility], Prior Authorization Approval Medication Name: REPATHA SURECLICK 140 MG/ML SUBCUTANEOUS PEN INJECTOR Medication ID: [id number] Approval Dates: 08/06/2022 to 02/03/2023 Insurance requirements/notes: None Other Notes: None Case/Reference #: [id number] Approval notification Received via: [facility] Copay: $0 Copay assistance: Footbalistic Copay Notes: If cost were to become unaffordable we can assess eligibility for any currently open grants, or refer to [facility] MAP for enrollment in food photographer assistance. Insurance mandated Pharmacy: Unknown Fillable at Pending Sale To [facility]: Yes Pharmacy staff will be reaching out to the patient to inform them of their [facility]. If applicable, a pharmacist will speak with the patient to offer our specialty pharmacy services and to arrange delivery of their medication. Nam Chan 08/07/22 8:52 AM documented in this encounter Plan of Treatment Upcoming Encounters Date Type Department Care Team (Late st Contact Info) Description 03/13/2024 9:45 AM EDT Office Visit Dermatology at [place] [address] [facility] [place] [address] Emiliano Salinas MD [address], BAKARI [place] [address] documented as of this encounter Visit Diagnoses Not on filedocumented in this encounter Care Teams Collection Teller Relationship Specialty Start Date End Date Mary Altamirano MD PCP - General Family Medicine 01/26/22 08/26/22 documented as of this encounter
--- OUTSIDE RECORDS SUMMARY | 2024-02-15 13:15 | XMS_ITS | Encounter Summary ---
Author Organization [facility] [place] [address] Care Team Providers Care Emergency Communications Dispatcher Name Role Phone Dana Cedillo DO Primary Care Provider [phone]- [phone] Encounter Details Date Type Department Care Team (Late st Contact Info) Description 09/30/2023 11:00 AM EDT Office [place] [phone] Sam Dawson MD [facility] [place] [address] 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, subsequent encounter Social History Tobacco Use Types Packs/Day Years [...] 09/30/2023 1 0:57 AM EDT Respiratory Rate - - Oxygen Saturation 95% 09/30/2023 10: 57 AM EDT Inhaled Oxygen Concentration - - Weight 72.5 kg (159 lb 12.8 oz) 024 10:57 AM EDT Height 157.5 cm (5' 2) 09/30/2023 10:5 7 AM EDT Body Mass Index 29.23 09/30/2023 10:57 AM EDT documented in this encounter Patient Instructions * Patient Instructions* Sam Dawson MD - 09/30/2023 11:00 AM EDT - take hydrochlorothiazide 12.5 mg at bedtime for 1 month and then repeat labs and urine test in 1 month at [facility] - once I get the results we will decide how much Ca and vit D to take - DXA scheduling at [facility] [phone] documented in this encounter Progress Notes * Sam Dawson MD - 09/30/2023 11:00 AM EDT Images from the original note were not included. Endocrinology Initial Visit Date of Visit: 09/30/2023 Patient Name: Yessenia Luong : 1950 PCP: Guerline Quigley APRN Reason for follow up: Osteopenia HPI: Yessenia Luong is a 73 y.o. [...] the DEXA scan did not show osteoporosis. She is taking 50 mcg of [...] [x] 701-900 mg [] 901-1100 mg [] 8625-8079 mg [] 1723-9624 mg [] Above 1500 mg ROS: Constitutional: very tired ENT: No dysphagia, dental issues. Cardiovascular: No chest pain or palpitations. Respiratory: No cough, wheezing, shortness of breath. GI: decreased appetite, no nausea, vomiting, diarrhea or constipation. Musculoskeletal: + joint aches, +muscle pain,+ back pain (getting steroid injections) Medications: Current Outpatient Medications on File Prior to Visit Medication Sig Dispense Refill calcium carbonate/vitamin D3 (CALCIUM WITH VITAMIN D3 ORAL) Take by mouth daily. fexofenadine (Glory) 180 mg tablet Take 180 mg by mouth daily. levothyroxine (Synthroid) 50 mcg tablet TAKE ONE TABLET BY MOUTH EVERY MORNING ON AN EMPTY STOMACH traZODone (Desyrel) 150 mg tablet Take 150 mg by mouth nightly. EPINEPHrine 0.3 mg/0.3 mL Auto-Injector as needed. 3 acetaminophen (TYLENOL) 500 mg Tablet Take 2 tablets by mouth every 6 hours as needed for Pain (forMODERATE pain). 30 tablet 1 bempedoic acid (Nexletol) 180 mg tablet Take 1 tablet by mouth daily. (Patient not taking: Reportedon 09/30/2023) 90 tablet 3 Vraylar 1.5 mg capsule TAKE ONE CAPSULE BY MOUTH EVERY EVENING WITH FOOD fluticasone propionate (Flonase) 50 mcg/actuation [place], Suspension Every 12 hours. meloxicam (Mobic) 7.5 mg tablet montelukast (Singulair) 10 mg tablet 1 tablet. icosapent ethyL (Vascepa) 1 gram capsule Take 2 g by mouth 2 times daily. (Patient not taking: Reported on 07/30/2023) 360 capsule 3 estradiol (ESTRACE) 0.01 % (0.1 mg/gram) Cream APPLY 1 GRAM VAGINALLY TWICE A WEEK DIRECTED 0 PROVENTIL HFA 90 mcg/actuation HFA Aerosol Inhaler inhale 2 puffs by mouth if needed 0 No current facility-administered medications on file prior [...] years: 2.50 Types: Cigarettes Smokeless tobacco: Never Tobacco comments: Patient denies ever being a smoker Vaping Use Vaping Use: Never used Substance and Sexual Activity Alcohol use: Yes Alcohol/week: 0.0 standard drinks of alcohol Comment: 3-9 glasses per week Drug use: Yes Types: Marijuana Comment: CBD tab Sexual activity: Not on file Other Topics Concern Not on file Social History Narrative 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 Social Determinants of Health Financial Resource Strain: Not on file Food Insecurity: Not on file Transportation Needs: Not on file Physical Activity: Not on file Intimate Partner Violence: Not on file Housing Stability: Not on file Physical Examination: BP 151/82 (BP Location (NBP): Right arm, Patient Position: Sitting, BP Cuff Sizes: Adult (25-34 cm)) Pulse 71 Temp 36.5 ??C (97.7 ??F) (Temporal) Ht 157.5 cm (5' 2) Wt 72.5 kg (159 lb 12.8 oz) SpO2 95% BMI 29.23 kg/m?? Appearance: well hydrated, well nourished, oriented x 3, in nad. Lungs: Lungs clear bilaterally Heart : regular rate and rhythm Abdomen - soft, non-tender Extremities: no pitting edema Spine: without kyphosis, without pain on palpation. Patient able to stand up without assistance Labs: From 08/06/2023: Calcium, Urine See Note mg/dL [...] 0.69 - 1.07 mmol/L 0.82 Last DXA scan 12/27/2022 ([facility]): Assessment: Yessenia Luong is a 73 y.o. female with PMH of HLD, THERESA, OA, asthma, hypothyroidism, osteopenia and unprovoked, non-traumatic left 2nd metatarsal fracture. Her DEXA scan showed osteopenia and based on the FRAX score she does not meet criteria for treatment however she had unprovoked fracture of her foot so it is possible that her bone quality does not match her bone density. For that reason I will order bone density scan to be done at [facility] where we can do a TBS score to assess for bone quality. Her labs are remarkable for hypercalciuria so we discussed trial of low-dose hydrochlorothiazide and then repeating her blood work. Her TFTs are within normal limits while on levothyroxine 50 mcg. Plan: - trial of hydrochlorothiazide 12.5 mg at bedtime for 1 month and then repeat labs and urine test in 1 month at [facility] Orders Placed This Encounter Procedures DXA Central Spine, Hip, and/or Whole Body (Generic) Calcium, urine, 24 hour Creatinine, urine, 24 hour Vitamin D, 25-Hydroxy PTH Albumin Level Calcium - DXA scan with TBS score to be done at [facility] - once I get the results we will decide how much Ca and vit D she should take - continue levothyroxine 50 mcg daily RTC in 3 months. Time statement: I spent 30 total minutes on this visit today. The time was spent face to face with the patient, on chart review and documentation, ordering labs/studies and coordination of care. Sam Dawson MD documented in this encounter Plan of Treatment Upcoming Encounters Date Type Department Care Team (Late st Contact Info) Description 03/13/2024 9:45 AM EDT Office Visit Dermatology at [facility] [address] [place] [phone] Emiliano Salinas MD [address], BAKARI [place] [address] Scheduled Orders Name Type Priority Associated Diagnoses Orde r Schedule Calcium, urine, 24 hour Lab Routine 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, subsequent encounter Expected: 09/30/2023, Expires: 03/31/2024 Creatinine, urine, 24 hour Lab Routine 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, subsequent encounter Expected: 09/30/2023, Expires: 03/31/2024 Vitamin D, 25-Hydroxy Lab Routine 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, subsequent encounter Expected: 09/30/2023 (Approximate), Expires: 09/29/2024 PTH Lab Routine 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, subsequent encounter Expected: 09/30/2023 (Approximate), Expires: 09/29/2024 Albumin Level Lab Routine 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, subsequent encounter Expected: 09/30/2023, Expires: 03/31/2024 Calcium Lab Routine 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, subsequent encounter Expected: 09/30/2023 (Approximate), Expires: 09/29/2024 documented as of this encounter Results * DXA Central Spine, Hip, and/or Whole Body (Generic) (10/18/2023 10:49 AM EDT) SMS [employer] WORKSTATION ID [id number] RAD Anatomical Region Laterality Modality C-spine, Hip N/A [...] BMD measurements and plots are available in [employer] under the imaging tab. Paper copies will be sent to providers without [employer] access. If you have received this report without the data sheet and do not have access to [employer], please contact Radiology Design Technician at [phone] Saturday thru Saturday 8am-4pm. ? Bone Density Report ? Name: ?Yessenia Luong Age: ? 73 Sex: ? Female Ethnicity: ? White Date of : 1950 Referring Provider: SAM DAWSON Study: Bone densitometry was performed. Model: Demohour Nova (S/N [id number]) SW version 13.6.0.5 Exam Date: October 18, 2023 Accession number: [id number] Bone Density: Region ? BMD ?T-score ??Z-score [...] who have questions please contact the health healthcare administrator that requested your imaging first. ? Narrative [...] left forearm and left hip using the Xand Horizon A system. COMPARISON: None FINDINGS: Femoral [...] BMD measurements and plots are available in [employer] the imaging tab. Paper copies will be sent to providers without [employer] access.If you have received this report without the data sheet and do not haveaccess to [employer], please contact Radiology Design Technician at [phone] Saturday thruFriday 8am-4pm. Bone Density Report Name: Yessenia Luong Age: 73 Sex: Female Ethnicity: White Date of : 1950 Referring Provider: SAM DAWSON Study: Bone densitometry was performed. Model: Mobile Complete (S/N [id number]) SW version 13.6.0.5 Exam Date: October 18, 2023 Accession number: [id number] Bone Density: Region BMD T-score Z-score AP [...] patients who have questions please contactthe health healthcare administrator that requested your imaging first. Sam Dawson MD IMG DEXA ORDERABLE S documented in this encounter Visit Diagnoses Diagnosis 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, subsequent encounter 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, subsequent encounter documented in this encounter Care Teams Emergency Communications Dispatcher Relationship Specialty Start Date End Date Dana Cedillo DO [address] [place] [address] PCP - General Family Medicine 10/16/23 documented as of this encounter
--- OUTSIDE RECORDS SUMMARY | 2024-02-15 13:15 | XMS_ITS | Encounter Summary ---
[place] [address] Care Team Providers Care Marble And Granite Polisher Name Role Phone Veronica Barrios APRN Primary Care Provider Reason for Referral * Consultation (Urgent) - Closed Specialty Diagnoses / Procedures Referred By Veronica t Referred To Contact Cardiology Diagnoses Familial hypercholesterolemia Familial hypercholesterolemia. Veronica Barrios APRN [address] [place] [address] [facility] Cardiology [address] [place] [address] Referral ID Status Reason Start Date Expiration Date V isits Requested Visits Authorized [id number] Closed Consult, Test & Treat PCP Updated and/or Approved 08/27/2022 08/27/2023 6 6 Encounter Details Date Type Department Care Team (Latest Contact Info) Description 08/27/2022 Transcribe Orders eDH Incoming Referrals [phone] Veronica Barrios APRN [address] [place] [address] Familial hypercholesterolemia Social History Tobacco Use Types [...] 9:45 AM EDT Office Visit Dermatology at [place] [address] [facility] [place] [address] Emiliano Salinas MD [address] [facility], BAKAR[place] [address] Scheduled Referrals Name Type Priority Associated Diagnoses Orde r Schedule Referral to Cardiology Outpatient Referral Urgent Familial hypercholesterolemia Ordered: 08/27/2022 documented as of this encounter Visit Diagnoses Diagnosis Familial hypercholesterolemia Pure hypercholesterolemia documented in this encounter Care Teams Marble And Granite Polisher Relationship Specialty Start Date End Date Veronica Barrios APRN [address] [place] [address] PCP - General Family Medicine 08/27/22 03/17/23 documented as of this encounter
--- OUTSIDE RECORDS SUMMARY | 2024-02-15 13:15 | XMS_ITS | Encounter Summary ---
Author Organization [facility] [place] [address] Care Team Providers Care Visiting Teacher Name Role Phone Veronica Barrios Liyah VALDES Primary Care Provider Encounter Details Date Type Department Care Team (Late st Contact Info) Description 09/26/2022 Telephone Cardiology at [address] [place] [address] Liam Noel MD [facility] [place] [address] Social History Tobacco Use Types Packs/Day Years [...] Telephone Encounter - Whitney Alvarez RN - 09/26/2022 3:54 PM EDT Called patient, she says that the pharmacy will send paper to fill out. Discussed with Dr. Noel, we will await paperwork. * Telephone Encounter - Chantell Sy - 09/26/2022 2:58 PM EDT Patient called because Dr Noel ordered repatha 140 mg injections for her. She called to say the 2 injections she received were faulty and did not work. She called [employer] and they are going to send a request to Dr Noel. Then they will mail them to her. Please call her @ [phone] documented in this encounter Plan of Treatment Upcoming Encounters Date Type Department Care Team (Late st Contact Info) Description 03/13/2024 9:45 AM EDT Office Visit Dermatology at [place] [address] [place] [address] Emiliano Salinas MD [address] [facility], [place]AKAR[place] [address] documented as of this encounter Visit Diagnoses Not on filedocumented in this encounter Care Teams Visiting Teacher Relationship Specialty Start Date End Date Veronica Barrios APRN [address] [place] [address] PCP - General Family Medicine 08/27/22 03/17/23 documented as of this encounter
--- OUTSIDE RECORDS SUMMARY | 2024-02-15 13:15 | XMS_ITS | Encounter Summary ---
Author Organization [facility] [place] [address] Care Team Providers Care Grid Maker Name Role Phone Veronica Barrios APRN Primary Care Provider Reason for Visit * Reason Comments Establish Care Hyperlipidemia * Consultation (Urgent) - Closed Specialty Diagnoses / Procedures Referred By Veronica brantley Referred To Contact Cardiology Diagnoses Familial hypercholesterolemia Familial hypercholesterolemia. Veronica Barrios APRN [address] [place] [address] [facility] [address] [place] [address] Referral ID Status Reason Start Date Expiration Date V isits Requested Visits Authorized [id number] Closed Consult, Test & Treat PCP Updated and/or Approved 08/27/2022 08/27/2023 6 6 Encounter Details Date Type Department Care Team (Late st Contact Info) Description 10/29/2022 1:20 PM EDT Office Visit Cardiology at [address] [address] Liam Noel MD [facility] [place] [address] Mixed hyperlipidemia Social History Tobacco Use Types [...] Sign Reading Time Taken Comments Blood Pressure 145/64 10/29/2022 1:16 PM EDT Pulse 86 10/29/2022 1:16 PM EDT Temperature - - Respiratory Rate - - Oxygen Saturation - - Inhaled Oxygen Concentration - - Weight 73.9 kg (163 lb) 10/29/2022 1:16 PM EDT Height 158.8 cm (5' 2.5) 10/29/2022 1:16 PM EDT Body Mass Index 29.34 10/29/2022 1:16 PM EDT documented in this encounter Progress Notes * Liam Noel MD - 10/29/2022 1:20 PM EDT Images from the original note were not included. Subjective: Patient ID: Yessenia Luong is a 72 y.o. female who presents on follow-up for: Chief Complaint Patient presents with ??? Establish Care ??? Hyperlipidemia HPI Last seen by Dr Santiago 07/2022, at which time Repatha was retried. Intercurrently, patient discontinued the Repatha due to muscle spasm of the left hip Since then, she has not been taking any anti-lipemic for familial hypercholesterolemia (per Selvin, 02/2019). She has tried statins, zetia, and now both PSCK9i with limitation by side effect (either diffuse muscle ache or muscle spasms) Tolerated nexletol to some extent in the past- discontinued it due to brain fog, though she reports this was at the same time Lyme disease was diagnosed Current Outpatient Medications Medication Instructions ??? acetaminophen (TYLENOL) 1,000 mg, Oral, EVERY 6 HOURS PRN ??? desloratadine (Clarinex) 5 mg tablet No dose, route, or frequency recorded. ??? EPINEPHrine 0.3 mg/0.3 mL Auto-Injector PRN ??? ergocalciferoL, vitamin D2, (vitamin D2) 50,000 unit capsule TAKE ONE CAPSULE BY MOUTH ONCE WEEKLY AT THE SAME TIME EACH WEEK ??? estradiol (ESTRACE) 0.01 % (0.1 mg/gram) Cream APPLY 1 GRAM VAGINALLY TWICE A WEEK DIRECTED ??? estradioL (Vagifem) 10 mcg vaginal tablet No dose, route, or frequency recorded. ??? fluticasone propionate (Flonase) 50 mcg/actuation [place], Suspension EVERY 12 HOURS ??? icosapent ethyL (VASCEPA) 2 g, Oral, 2 TIMES DAILY ??? meloxicam (Mobic) 7.5 mg tablet No dose, route, or frequency recorded. ??? mirabegron ER (MYRBETRIQ) 25 mg, Oral, DAILY ??? montelukast (Singulair) 10 mg tablet 1 tablet ??? naproxen (NAPROSYN) 500 mg Tablet PRN ??? Nexletol 180 mg, Oral, EVERY OTHER DAY ??? omeprazole (PRILOSEC) 20 mg, Oral ??? PROVENTIL HFA 90 mcg/actuation HFA Aerosol Inhaler inhale 2 puffs by mouth if needed ??? traZODone (DESYREL) 150 mg, Oral, NIGHTLY ??? triamcinolone (KENALOG) 0.025 % Cream 1 Dose, Topical (Top), 2 TIMES DAILY ??? Vraylar 1.5 mg capsule TAKE ONE CAPSULE BY MOUTH EVERY EVENING WITH FOOD Patient Active Problem List Diagnosis ??? Mixed hyperlipidemia 2022 lipids: Total 366 HDL 91 LDL 236 Trigly 195 CCS 02/2022: 77 (61%) ??? Allergic rhinitis due to pollen ??? Arthritis of carpometacarpal (CMC) joint of both thumbs ??? Chronic fatigue syndrome ??? Hypothyroidism ??? Lumbosacral spondylosis without myelopathy ??? Mixed anxiety depressive disorder ??? Mixed incontinence ??? Restless legs syndrome ??? Vitamin D deficiency ??? Varicose veins of left lower extremity with pain ??? Venous insufficiency of both lower extremities ??? Allergy to insect stings ??? Mild intermittent asthma ??? Chronic urticaria ??? Solar lentigo ??? Urinary incontinence, urge ??? Osteoarthritis ??? THERESA (obstructive sleep apnea) ??? Androgenetic alopecia ??? Rosacea Objective: BP 145/64 (BP Location (NBP): Left arm, Patient Position: Sitting, BP Cuff Sizes: Adult (25-34 cm)) Pulse 86 Ht 158.8 cm (5' 2.5) Wt 73.9 kg (163 lb) BMI 29.34 kg/m?? Gen: pleasant female in NAD Cor: rrr, s1/s2 of nl character and amplitude, no m/r/g. Estimated RAP not elevated. Carotids with normal upstroke without bruit. Pulm: CTAB. Normal diaphragmatic movement without use of accessory muscles EKG: nsr, nl ekg Assessment and Plan: Mixed hyperlipidemia Patient has been having troublesome side effects from the array of anti-lipemics attempted thus far. She is up to retry bempedoic acid, and we will start QOD. - Nexletol 180 mg every other day - Vascepa 2g BID - Recheck cholesterol, TSH, and uric acid in 3 months RTC 12 months Liam Noel MD Between 30 and 39 minutes were spent doing patient care, chart care/review (today), and care coordination. documented in this encounter Miscellaneous Notes * Assessment & Plan Note - Liam Noel MD - 10/29/2022 2:35 PM EDT Associated Problem(s): Mixed hyperlipidemia Patient has been having troublesome side effects from the array of anti-lipemics attempted thus far. She is up to retry bempedoic acid, and we will start QOD. - Nexletol 180 mg every other day - Vascepa 2g BID - Recheck cholesterol, TSH, and uric acid in 3 months documented in this encounter Plan of Treatment Upcoming Encounters Date Type Department Care Team (Late st Contact Info) Description 03/13/2024 9:45 AM EDT Office Visit Dermatology at [address] [place] [address] Emiliano Salinas MD [address] [facility], [place] [address] documented as of this encounter Visit Diagnoses Diagnosis Mixed hyperlipidemia documented in this encounter Care Teams Grid Maker Relationship Specialty Start Date End Date Veronica Barrios APRN [address] [place] [address] PCP - General Family Medicine 08/27/22 03/17/23 documented as of this encounter
--- OUTSIDE RECORDS SUMMARY | 2024-02-15 13:15 | XMS_ITS | Encounter Summary ---
Author Organization [facility] Address [facility] [place] [address] Care Team Providers Care Lift Driver Name Role Phone Veronica Barrios KEISHA Primary Care Provider Reason for Visit * Reason Comments Skin Check Encounter Details Date Type Department Care Team (Late st Contact Info) Description 08/30/2022 8:30 AM EDT Office Visit Dermatology at [facility] [address] [place] [address] Star Moura MD [facility] [address] [place] [address] Multiple benign melanocytic nevi of upper and lower extremities and trunk; Rhytides; Lentigines; Eczema craquele; Holt angioma; Androgenetic alopecia Social History Tobacco Use Types Packs/Day Years [...] as of this encounter Progress Notes * Mira Sanches CCMA - 08/30/2022 8:30 AM EDT Images from the original note were not included. DEPARTMENT OF DERMATOLOGY Medical Dermatology Clinic Provider: Star Moura MD Patient's preferred name Yessenia Preferred contact method for results []Phone []myD-H []Letter Detailed phone message OK? Are there any other people with whom we may discuss your care? 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 Pre-Procedure Questions Details Allergy to lidocaine, epinephrine, Dermabond, chlorhexidine, or adhesives Bleeding disorder or blood thinners Pacemaker, defibrillator, deep brain stimulator, cochlear implant History of Present Illness: Yessenia Luong is a 72 y.o. Patient returns to clinic today for a fullskin exam. She denies any rapidly growing, tender, or spontaneously bleeding. Today she would like to discuss recommendations for retinols to treat wrinkles/promote anti-aging. She would also like to discuss hair thinning. She was previously prescribed Rx: Finasteride by Dr. Salmeron but decided not to take the medication due to concern about potential side effects. Last visit at Dermatology: Visit date not found Last visit with this provider: Visit date not found Medications: Reviewed in eD-H Allergies: Reviewed in eD-H Skin Examination: Full skin examination: Patient asked to undress to their comfort level. Verbalized that the provider???s preference is that the patient remove all clothing and that the provider will not examine areas patient elects to keep covered. Patient elects to keep underwear on and have the following examined: scalp, hair, face, ears, neck, chest, axillae, abdomen, back, and upper and lower extremities. Genitalia and buttocks were not examined. Assessment/Plan 1. Low Density Nevi - Scattered light to medium brown macules on the back with reassuring pigment pattern on dermoscopy. - Reassured of benign appearance on exam today. - Advised patient to watch for any new or changing lesions. - Reviewed warning signs of skin cancer. 2. Facial Rhytides/Photoaging - Discussed the need for regular photoprotection: broad spectrum SPF 30+ and moisturization as partof a skin care routine. -Ppatient is interested in trying topical retinoid treatment. Adverse effects of dryness and irritation reviewed. - Recommend the following cream: - Rx: Topical Tretinoin .025%/Niacinamide 2%/Hyaluronic Acid 0.25% applied QHS to the affected areas on the face. Will be sent to [employer] [facility] [employer]ing pharmacy [facility]. Cost is $60 for 30g tube. - Start by applying every other day and increase to daily use as tolerance to drying effects of topical develop. If severely irritated, apply after using moisturizer. 3. Lentigines - Scattered light-brown, evenly pigmented, well-demarcated macules on sun-exposed areas of the trunk and extremities. - No worrisome pigmented lesions. Discussed benign nature of lesions and provided reassurance. Willcontinue to monitor. 4. Eczema Craquele - Ichthyosiform scale overlying erythematous plaques with cracked pavement pattern. -Advised daily moisturizing after showering after patting dry to apply a moisturizer such as Cetaphil, CeraVe cream or plain Vaseline (100% petroleum jelly) -Informed pt that condition can get worse with winter - Handout with recommendations for dry skin provided. 5. Holt Angiomas - 0.2-0.4cm bright red, well-demarcated papules on the abdomen. - Benign. No treatment needed. 6. Androgenetic Alopecia - Frontotemporal hairline recession with follicular miniaturization on dermoscopy wi/o scarring of follicular openings. - Advised that pattern hair loss is due to affect of androgens on the hair follicles. It is a common condition. Plan: - Start Rx: Minoxidil 1.25mg QD (compounded by [employer] [employer] [facility]). Counseled that minoxidil can initially increase hair loss over first 4-6 weeks, then will increase hair density with time. It may take up to 4 months to see an effect. The medication works by increasing the duration of anagen, shortening telogen, and enlarging miniaturized follicles. Approximately up to 20% increase in hair counts at4 months. Other: ??? Sun protection discussed (protective clothing and SPF30+ broad-spectrum sunscreen) ??? OTC skin products discussed RTC: 1 year for FSE []Note routed to placement secretary [x]Recall placed in scheduling system []Appointment scheduled at checkout Scribe attestation: TAQUERIA Vang has performed the documentation for this encounter in the presence of and acting as a scribe for Star Moura MD. I performed the above scribed service and agree with the accuracy of the documentation in this encounter. Reviewed and signed by: Star Moura MD Dermatology [facility] documented in this encounter Plan of Treatment Upcoming Encounters Date Type Department Care Team (Late st Contact Info) Description 03/13/2024 9:45 AM EDT Office Visit Dermatology at [place] [address] [place] [address] Emiliano Salinas MD [address] [facility] [place] [address] documented as of this encounter Visit Diagnoses Diagnosis Multiple benign melanocytic nevi of upper and lower extremities and trunk Rhytides Other specified hypertrophic and atrophic condition of skin Lentigines Other dyschromia Eczema craquele Other specified disease of sebaceous glands Holt angioma Nevus, non-neoplastic Androgenetic alopecia Other alopecia documented in this encounter Care Teams Lift Driver Relationship Specialty Start Date End Date Veronica Barrios APRN [address] [place] [address] PCP - General Family Medicine 08/27/22 03/17/23 documented as of this encounter
--- OUTSIDE RECORDS SUMMARY | 2024-02-15 13:15 | XMS_ITS | Encounter Summary ---
Author Organization [facility] [address] [place] [address] Care Team Providers Care Supervisor Inspection Room Name Role Phone Mary Altamirano MD Primary Care Provider Encounter Details Date Type Department Care Team (Latest Contact Info) Description 08/01/2022 Travel Social History Tobacco Use Types Packs/Day [...] 9:45 AM EDT Office Visit Dermatology at [place] [address] [facility] [place] [phone] Emiliano Salinas MD [address], [place] [address] documented as of this encounter Visit Diagnoses Not on filedocumented in this encounter Care Teams Supervisor Inspection Room Relationship Specialty Start Date End Date Mary Altamirano MD PCP - General Family Medicine 01/26/22 08/26/22 documented as of this encounter
--- OUTSIDE RECORDS SUMMARY | 2024-02-15 13:15 | XMS_ITS | Encounter Summary ---
Author Organization [facility] [place] [address] Care Team Providers Care Steam And Power Supervisor Name Role Phone Veronica Barrios Liyah VALDES Primary Care Provider Encounter Details Date Type Department Care Team (Late st Contact Info) Description 08/27/2022 Telephone Cardiology at [address] [place] [address] Liam Noel MD [facility] [place] [address] Social History Tobacco Use Types Packs/Day Years [...] encounter Miscellaneous Notes * Telephone Encounter - Dariela Manzano, RN - 08/28/2022 10:31 AM EDT Voice message from Yessenia requesting 3 month script for emmy. Acknowledges she will be following up with Dr Noel later this year as Dr Santiago is no longer at [facility]. Return call to Yessenia voice message left reiterated message from Whitney MONTES dated 08/27/22 re: PCPoffice providing script as able. * Telephone Encounter - Whitney Alvarez RN - 08/27/2022 2:37 PM EDT Spoke to Breana from PCP office. She will check with patients PCP, she has already had lipids checked in March and May of 2022. * Telephone Encounter - Whitney Alvarez RN - 08/27/2022 11:40 AM EDT Attempted to call patient. This patient is a NPW in November. We are not able to order labs until she is seen in out office. I didcall her PCP office and left message for them to order this. * Telephone Encounter - Whitney Alvarez RN - 08/27/2022 11:40 AM EDT at * Telephone Encounter - Shade Pickett - 08/27/2022 11:23 AM EDT Pt came in asking for an order to check her cholesterol before she comes in to see Dr. Noel in November. I told her I have one nurse today but will put a note in for her and she should hear back from someone. [phone] documented in this encounter Plan of Treatment Upcoming Encounters Date Type Department Care Team (Late st Contact Info) Description 03/13/2024 9:45 AM EDT Office Visit Dermatology at [address] [place] [address] Emiliano Salinas MD [address] [facility], [address]AKAR[place] [address] documented as of this encounter Visit Diagnoses Not on filedocumented in this encounter Care Teams Steam And Power Supervisor Relationship Specialty Start Date End Date Veronica Barrios APRN [address] [place] [address] PCP - General Family Medicine 08/27/22 03/17/23 documented as of this encounter
--- OUTSIDE RECORDS SUMMARY | 2024-02-15 13:15 | XMS_ITS | Encounter Summary ---
Author Organization [facility] [place] [address] Care Team Providers Care Ore Buyer Name Role Phone Guerline Quigley APRN Primary Care Provider [phone] Encounter Details Date Type Department Care Team (Latest Contact Info) Description 07/30/2023 Travel Social History Tobacco Use Types Packs/Day [...] 9:45 AM EDT Office Visit Dermatology at [place] [address] [facility] [place] [address] Emiliano Salinas MD [address] [facility] [place] [address] documented as of this encounter Visit Diagnoses Not on filedocumented in this encounter Care Teams Ore Buyer Relationship Specialty Start Date End Date Guerline Quigley APRN PCP - General Family Medicine 03/18/23 09/29/23 documented as of this encounter
--- OUTSIDE RECORDS SUMMARY | 2024-02-15 13:15 | XMS_ITS | Encounter Summary ---
[place] [address] Care Team Providers Care Mechatronics Technician Name Role Phone Mary Altamirano MD Primary Care Provider Encounter Details Date Type Department Care Team (Latest Contact Info) Description 08/01/2022 8:15 AM EST Laboratory Appointment Lab [address] [place] [phone] Familial hypercholesterolemi a; THERESA (obstructive sleep apnea) Social History Tobacco Use Types Packs/Day Years [...] 9:45 AM EDT Office Visit Dermatology at [place] [address] [facility] [place] [phone] Emiliano Salinas MD [address] [facility] [facility] [address], BAKARI Bhatt DERMATOLOGY [place], [place] [id number] documented as of this encounter Procedures Procedure Name Priority Date/Time Associated Diagnosis Comments HC PC APOLIPO PROTEIN B Routine 08/01/2022 7:52 AM EST Familial hypercholesterolemi a THERESA (obstructive sleep apnea) HC VENIPUNCTURE Routine 08/01/2022 7:52 AM EST Familial hypercholesterolemi a THERESA (obstructive sleep apnea) LIPID PANEL (REFLEX DIRECT LDL) Routine 08/01/2022 7:52 AM EST Familial hypercholesterolemi a THERESA (obstructive sleep apnea) documented in this encounter Results * Lipid Panel (Reflex Direct LDL) (08/01/2022 7:52 AM EST) Cholesterol, Total 366 mg/dL [facility] Comment: Lower Risk: <200 mg/dL Average Risk: 200-239 mg/dL Higher Risk: >gp=417 mg/dL Triglyceride 195 mg/dL [facility] Comment: Average Risk/Lower Risk: <150 mg/dL Borderline High Risk: 150-199 mg/dL High Risk: 200-499 mg/dL Very High Risk: >rh=520 mg/dL HDL Cholesterol 91 mg/dL [facility] Comment: Males: ?? Higher Risk: <40 mg/dL Females: ?? Higher Risk: <50 mg/dL LDL Cholesterol 236 mg/dL [facility] Comment: Lowest Risk: <100 mg/dL Lower Risk: 100-129 mg/dL Borderline High Risk: 130-159 mg/dL High Risk: 160-189 mg/dL Very High Risk: >zg=246 mg/dL Cholesterol/HDL Ratio 4.0 ratio [facility] Lipid Interpretation See Note [facility] Comment: Lipid management should be guided by a patient? s ASCVD risk, goals and preferences. ACC/AHA Guidelines recommend high intensity statin if clinical ASCVD or LDL greater than or equal to 190 mg/dL. [email or web address]/XUZ-[email or web address]-[email or web address] Adults aged 40-75 with LDL 70-189 mg/dL should have their 10 year ASCVD risk estimated with the ACC/AHA ASCVD risk orthopaedic technologist http://tools.acc.org/GBDJH-Dfwn-Lapngmzet/ Statin should be discussed if risk greater than or equal to 7.5% in non-diabetics. With diabetes, moderate intensity statin is recommended if risk less than 7.5%, high intensity if risk greater than or equal to 7.5%. Annual lipid monitoring on statins is not necessary. Evaluate secondary causes of Triglycerides greater than 500 mg/dL or LDL greater than 190 mg/dL: See table 6 of ACC/AHA Guideline. Lifestyle modification is a critical component of ASCVD risk reduction. Blood 08/01/2022 7:52 AM EST 08/01/2022 8:07 AM EST Narrative Resulting Agency Comment Spec In Lab Delfina Santiago MD CHEMISTRY ORDERABLES Performing Organization Address [facility] de Phone Number [facility] [address] * (ABNORMAL) Apolipoprotein B (08/01/2022 7:52 AM EST) Pathologist [facility] Apolipoprotein B (OCTOBER) 169(H) mg/dL [facility] Comment: REFERENCE VALUE Desirable: <90 Above Desirable: 90-99 Borderline high: 100-119 High: 120-139 Very high: > or = 140 Test Performed by: [address] [address] Auto Damage Appraiser: Kyle Michel M.D. Ph.D.; CLIA# [id number] Blood 08/01/2022 7:52 AM EST 08/01/2022 12:39 PM EST Narrative Resulting Agency Comment Spec In Lab Delfina Santiago MD LAB SEND OUT ORDERAB LES Performing Organization Address [facility] Co de Phone Number [facility] [address] * Hepatic Function Panel (08/01/2022 7:52 AM EST) Protein, Total 7.1 6.1 - 8.0 g/dL [facility] Albumin 4.5 3.2 - 5.2 g/dL [facility] Aspartate Aminotransferase 19 0 - 30 unit/L [facility] Alanine Aminotransferase 18 0 - 30 unit/L [facility] Alkaline Phosphatase 75 35 - 105 unit/L [facility] Bilirubin, Total 0.4 0.2 - 1.3 mg/dL [facility] Bilirubin, Direct 0.1 0.0 - 0.3 mg/dL [facility] Blood 08/01/2022 7:52 AM EST 08/01/2022 8:07 AM EST Narrative Resulting Agency Comment Spec In Lab Delfina Santiago MD CHEMISTRY ORDERABLES Performing Organization Address City/State/[facility] Co de Phone Number [facility] [address] documented in this encounter Visit Diagnoses Diagnosis Familial hypercholesterolemia Pure hypercholesterolemia THERESA (obstructive sleep apnea) Obstructive sleep apnea (adult) (pediatric) documented in this encounter Care Teams Mechatronics Technician Relationship Specialty Start Date End Date Mary Altamirano MD PCP - General Family Medicine 01/26/22 08/26/22 documented as of this encounter
--- OUTSIDE RECORDS SUMMARY | 2024-02-15 13:15 | XMS_ITS | Encounter Summary ---
Author Organization [facility] [place] [address] Care Team Providers Care Exhaust Emissions Inspector Name Role Phone Mary Altamirano MD Primary Care Provider Reason for Visit * Reason Onset Date Comments Referral 08/22/2022 Encounter Details Date Type Department Care Team (Late st Contact Info) Description 08/22/2022 Telephone Cardiology at [address] [address] Ashlyn Celis, sql etl developer Social History Tobacco Use Types Packs/Day Years [...] Telephone Encounter - Ashlyn Celis, RN - 08/23/2022 10:56 AM EDT Yessenia called in. She will be meeting new PCP Nurse practitioner Veronica Garcia on August 27. The cardiology referral will be generated at that time. New Patient Appointment with Dr. Noel being held for her on November 27 at 1:20 pm * Telephone Encounter - Ashlyn Celis RN - 08/22/2022 1:31 PM EDT Yessenia has been with Cardiology in [place]. Last appointment was July. Next appointment is due in November and she prefers to transfer cardiology care to a boat motor mechanic in the [facility] Cardiology clinic. Request: PCP to confirm that transfer of cardiology care to the closer provider is an appropriate referral. This clinic can accommodate a new appointment in November. documented in this encounter Plan of Treatment Upcoming Encounters Date Type Department Care Team (Late st Contact Info) Description 03/13/2024 9:45 AM EDT Office Visit Dermatology at [place] [address] [facility] [place] [address] Emiliano Salinas MD [address], [place] [address] documented as of this encounter Visit Diagnoses Not on filedocumented in this encounter Care Teams Exhaust Emissions Inspector Relationship Specialty Start Date End Date Mary Altamirano MD PCP - General Family Medicine 01/26/22 08/26/22 documented as of this encounter
--- OUTSIDE RECORDS SUMMARY | 2024-02-15 13:15 | XMS_ITS | Encounter Summary ---
[place] [address] Care Team Providers Care Customer Experience Leader Name Role Phone Veronica Barrios KEISHA Primary Care Provider Reason for Visit * Reason Comments Medication Management Encounter Details Date Type Department Care Team (Late st Contact Info) Description 09/27/2022 Specialty [place] [id number] Louie Sosa RPH Social History Tobacco Use Types Packs/Day Years [...] as of this encounter Progress Notes * Louie Sosa RPH - 09/27/2022 11:01 AM EDT Clinical Management Plan: Transfer of Care Specialty Pharmacy Consultation; Louie Sosa RPH Comprehensive Medication Management (CMM) Yessenia Arnoldnavin [address] [facility] [address] Telephone Information: Work Phone Not on file. Is the patient transferring services to a different Specialty Pharmacy, discontinuing the medication, or modifying current Specialty services? Transferring Services (Optional) If modifying Specialty services, patient unenrolls from: Consultations, Refill Management Medication: Repatha Reason for discontinuation or transfer of services: Patient preference Approximate date of discontinuation, modification, or transfer of services: 09/27/22 Patient's response to therapy: n/a Summary of services provided by [facility] Special[facility]: Initial clinical assessment, follow up clinical assessment(s), refill management, monthly care plan review, and 31/12 access to an on-call specialty pharmacist Summary of on-going needs: Refill management, monthly care plan review and 31/12 access to an on-call specialty pharmacist Referral for additional services (if applicable): no Is patient aware of referral? yes - pt requested Instructions provided to patient about discharge/transfer: no Provider aware of discontinuation or transfer: Yes Patient understands no changes to current drug regimen were made at the appointment and that [facility] isproviding recommendations (summary located at top of note) for provider review and follow up. Of note, if transferring to another specialty pharmacy, a copy of patient's medication profile was offered to accepting pharmacy. Louie Sosa RPH 09/27/22 11:08 AM documented in this encounter Plan of Treatment Upcoming Encounters Date Type Department Care Team (Late st Contact Info) Description 03/13/2024 9:45 AM EDT Office Visit Dermatology at [place] [address] [facility] [place] [address] Emiliano Salinas MD [address] [facility], [place] [address] documented as of this encounter Visit Diagnoses Not on filedocumented in this encounter Care Teams Customer Experience Leader Relationship Specialty Start Date End Date Veronica Barrios APRN [address] [place] [address] PCP - General Family Medicine 3/20/23 10/8/23 documented as of this encounter
--- OUTSIDE RECORDS SUMMARY | 2024-02-15 13:15 | XMS_ITS | Encounter Summary ---
Author Organization [facility] [place] [address] Care Team Providers Care Classroom Monitor Name Role Phone Veronica Barrios KEISHA Primary Care Provider [phone] Encounter Details Date Type Department Care Team (Late st Contact Info) Description 10/29/2022 External Results Cardiology at [address] [address] Liam Noel MD [facility] [place] [address] Social History Tobacco Use Types Packs/Day Years [...] 9:45 AM EDT Office Visit Dermatology at [address] [place] [address] Emiliano Salinas MD [address] [place] [address], [place] [address] documented as of this encounter Procedures Procedure Name Priority Date/Time Associated Diagnosis Comments EXTERNAL LIPID LAB RESULTS PANEL Routine 10/24/2022 documented in this encounter Results * Lipid External Results (10/24/2022) Cholesterol, Total 350 HDL Cholesterol 75 LDL Cholesterol 232.8 Triglyceride 210 10/24/2022 Historical Provider POINT OF CARE WILDA T ORDERABLES documented in this encounter Visit Diagnoses Not on filedocumented in this encounter Care Teams Classroom Monitor Relationship Specialty Start Date End Date Veronica Barrios APRN [address] [place] [address] PCP - General Family Medicine 08/27/22 03/17/23 documented as of this encounter
--- OUTSIDE RECORDS SUMMARY | 2024-02-15 13:15 | XMS_ITS | Encounter Summary ---
Author Organization [facility] [place] [address] Care Team Providers Care Farm Reporter Name Role Phone Guerline Quigley APRN Primary Care Provider [phone] Encounter Details Date Type Department Care Team (Latest Contact Info) Description 07/23/2023 Travel Social History Tobacco Use Types Packs/Day [...] 9:45 AM EDT Office Visit Dermatology at [place] [address] [facility] [place] [address] Emiliano Salinas MD [address], [place] [address] documented as of this encounter Visit Diagnoses Not on filedocumented in this encounter Care Teams Farm Reporter Relationship Specialty Start Date End Date Guerline Quigley APRN PCP - General Family Medicine 03/18/23 09/29/23 documented as of this encounter
--- OUTSIDE RECORDS SUMMARY | 2024-02-15 13:15 | XMS_ITS | Encounter Summary ---
Author Organization [facility] [place] [address] Care Team Providers Care Physician Asst Name Role Phone Veronica Barrios Liyah VALDES Primary Care Provider Reason for Visit * Reason Onset Date Comments Medication Change/management 11/27/2022 Encounter Details Date Type Department Care Team (Late st Contact Info) Description 11/27/2022 Telephone Cardiology at [address] [place] [address] iLam Noel MD [facility] [place] [address] Medication Change/management Social History Tobacco Use Types Packs/Day Years [...] Telephone Encounter - Ashlyn Celis RN - 11/27/2022 8:52 AM EDT Yessenia called in because she has not yet started new medication Nexletol 180 mg every other day. Shewill start it by December 04. The delay was the need to transition off another medication before starting Nexletol. - needs fasting chol, TSH, uric acid. This appt is OPTIONAL and could be managed telephonically by prerogative of Dr. Noel once lab results are available. - regarding Yessenia's recollection of INSTRUCTIONS for calling in- this recommendation was made: oncecarlos eduardo starts the Nexletol, call in weekly to let us know how she is tolerating the medication. Next appt will be Feb 26 at 3 pm unless no longer needed. documented in this encounter Plan of Treatment Upcoming Encounters Date Type Department Care Team (Late st Contact Info) Description 03/13/2024 9:45 AM EDT Office Visit Dermatology at [place] [address] [facility] [place] [address] Emiliano Salinas MD [address] [facility], [place] [address] documented as of this encounter Visit Diagnoses Not on filedocumented in this encounter Care Teams Physician Asst Relationship Specialty Start Date End Date Veronica Barrios APRN [address] [place] [address] PCP - General Family Medicine 08/27/22 03/17/23 documented as of this encounter
--- OUTSIDE RECORDS SUMMARY | 2024-02-15 13:15 | XMS_ITS | Encounter Summary ---
Author Organization [facility] [place] [address] Care Team Providers Care Truck Operator Name Role Phone Veronica Barrios APRN Primary Care Provider Encounter Details Date Type Department Care Team (Latest Contact Info) Description 08/30/2022 Travel Social History Tobacco Use Types Packs/Day [...] 9:45 AM EDT Office Visit Dermatology at [place] [address] [place] [address] Emiliano Salinas MD [address], [place] [address] documented as of this encounter Visit Diagnoses Not on filedocumented in this encounter Care Teams Truck Operator Relationship Specialty Start Date End Date Veronica Barrios APRN [address] [place] [address] PCP - General Family Medicine 08/27/22 03/17/23 documented as of this encounter
--- OUTSIDE RECORDS SUMMARY | 2024-02-15 13:15 | XMS_ITS | Encounter Summary ---
Author Organization [facility] [place] [address] Care Team Providers Care Bone Density Technician Name Role Phone Mary Altamirano MD Primary Care Provider [phone] Reason for Referral * Diagnostic Test (Routine) - Closed Specialty Diagnoses / Procedures Referred By Contac t Referred To Contact Diagnoses Familial hypercholesterolemia THERESA (obstructive sleep apnea) Dyspnea, unspecified type Procedures Echocardiogram Stress (Treadmill) Delfina Alexandre MD [facility] [place] [address] [facility] [place] [address] Referral ID Status Reason Start Date Expiration Date V isits Requested Visits Authorized [id number] Closed Specialty Service Requested 05/21/2022 05/21/2023 1 1 Reason for Visit * Diagnostic Test (Routine) - Closed Specialty Diagnoses / Procedures Referred By Contac t Referred To Contact Diagnoses Familial hypercholesterolemia THERESA (obstructive sleep apnea) Dyspnea, unspecified type Procedures Echocardiogram Stress (Treadmill) Delfina Alexandre MD [facility] [place] [address] [facility] [place] [address] Referral ID Status Reason Start Date Expiration Date V isits Requested Visits Authorized [id number] Closed Specialty Service Requested 05/21/2022 05/21/2023 1 1 Encounter Details Date Type Department Care Team (Latest Contact Info) Description 08/01/2022 8:01 AM EST - 08/01/2022 11:59 PM EST Hospital Encounter [place] [address] Delfina Alexandre MD [facility] [place], [place] [id number] Familial hypercholesterolemi a; THERESA (obstructive sleep apnea); Dyspnea, unspecified type Discharge Disposition: Home Social History Tobacco Use [...] Sig Dispensed Refills Start Date End Date fluticasone propionate (Flonase) 50 mcg/actuation [place], Suspension Every 12 hours. 10/17/2020 meloxicam (Mobic) 7.5 mg tablet 06/14/2022 EPINEPHrine 0.3 mg/0.3 mL Auto-Injector as needed. [...] (for MODERATE pain). 30 tablet 1 06/15/2015 fexofenadine-pseudoephedri ne (EVANGELINA-D 24) 180-240 mg Tablet Sustained Release 24 hr Take 1 tablet by mouth daily. 05/16/2022 3 pseudoephedrine (Sudafed) 30 mg tablet Take 2 tablets by mouth 2 times daily as needed. 04/27/2022 3 evolocumab (Repatha SureClick) 140 mg/mL Pen InjectorIndications:Famili al hypercholesterolemia Inject 1 mL subcutaneously every 14 days. 1 mL 11 08/01/2022 3 escitalopram oxalate (LEXAPRO) 5 mg Tablet Take 15 mg by mouth daily. 01/25/2022 3 finasteride (Proscar) 5 mg TabletIndications:Hair thinning TAKE 1 TABLET BY MOUTH DAILY 30 tablet 5 04/28/2020 3 sulfacetamide (KLARON) 10 % SuspensionIndications:Gloria cea Apply topically to face 1-2 times a day. 118 mL 3 03/12/2019 3 TIROSINT 50 mcg Capsule Take 50 mcg by mouth daily. 1 02/10/2019 3 traZODone (DESYREL) 50 mg Tablet Take 50 mg by mouth nightly. 3 naproxen (NAPROSYN) 500 mg Tablet as needed. 0 11/27/2017 3 olopatadine (PATANOL) 0.1 % Drops instill 1 drop into affected eye twice a day 0 07/05/2017 3 azelastine (ASTELIN) 137 mcg (0.1 %) Aerosol, [place] 0 11/06/2017 0 3 ASCORBATE CALCIUM (VITAMIN C ORAL) Take by mouth. 3 ERGOCALCIFEROL, VITAMIN D2, (VITAMIN D ORAL) Take by mouth. 09/03 3 multivitamin (THERAGRAN) tablet Take 1 tablet by mouth daily. 3 fexofenadine (EVANGELINA) 180 mg tablet 180 mg, PO, Once daily 08/28/2010 3 Mometasone (NASONEX) 50 mcg/Actuation [place] 2 [place](s) each nostril, Nasal, Twice daily 08/28/2010 3 documented as of this encounter Plan of Treatment Upcoming Encounters Date Type Department Care Team (Late st Contact Info) Description 03/13/2024 9:45 AM EDT Office Visit Dermatology at [place] [address] [place] [address] Emiliano Salinas MD [address], [place]AKARI Bhatt [facility] [address] documented as of this encounter Procedures Procedure Name Priority Date/Time Associated Diagnosis Comments STRESS ECHO W LMTD SPEC DOPP COLOR DOPP Routine 08/01/2022 9:19 AM EST Familial hypercholesterolemia THERESA (obstructive sleep apnea) Dyspnea, unspecified type documented in this encounter Results * STRESS ECHO W LMTD SPEC DOPP COLOR DOPP (08/01/2022 9:19 AM EST) EF 65 [employer] Anatomical Region Laterality Modality Cardiac Other 08/01/2022 8:38 AM EST Narrative 08/01/2022 9:38 AM EST ? Exercise Stress Echocardiogram Report Name: ARNOLDYESSENIA Meyer ?Study Date: 08/01/2022 08:38 AMBP: 142/74 mmHg ? Patient Location: 4A ? HR: 69 : 1950 ? Height: 161 cm ? Account: [id number] Age: 72 yrs ? Weight: 72 kg Gender: Female ?BSA: 1.8 m2 Ordering Physician: DELFINA ALEXANDRE Referring Physician: DELFINA ALEXANDRE Performed By: SOO Woods Reason For Study: Abnormal EKG Exam Location: [facility]. Interpretation Summary IMPRESSION: There was no evidence of ischemia at a diagnostic level of stress. REST: Left ventricle is of normal size. Wall thickness is normal. Left ventricular systolic function is normal. Left ventricular ejection fraction is estimated visually at 65%. There are no segmental wall motion abnormalities. The right ventricle is of normal size. Right ventricular systolic function is normal. See remainder of report for additional findings. STRESS: 7 METS. Peak heart rate 102% maximum predicted. Stopped secondary to shortness of breath. With stress: hemodynamically stable; no arrhythmias; no significant ST-TW changes; all left ventricular segments became appropriately hyperdynamic. Stress Results ? Protocol: ??Jesus ?Maximum Predicted HR: ?? 147 bpm ? Target HR: 125 bpm ?% Maximum Predicted HR: 102 % ?Stage ??DurationHeart Rate ??BP ?(mm:ss) ?? (bpm) ? Rest ?69 ?142/74 ? Stage 1 ?? 3:00 ?142 ?? 172/76 ? Stage 2 ?? 3:00 ?150 ?? 182/80 ?RecoveryR ??6:00 ?89 ?152/80 ?Stress Duration: ?? 6:00 mm:ss ?Recovery Time: 6:00 mm:ss ?Maximum Stress HR: 150 bpm ? METS: ?7 Procedure The patient's blood pressure was normal with exercise. Exercise capacity was good. The patient reported no chest discomfort. The study was terminated because of dyspnea. Left Ventricle Left ventricle is of normal size. Wall thickness is normal. Left ventricular systolic function is normal. Left ventricular ejection fraction is estimated visually at 65%. There are no segmental wall motion abnormalities. Pulmonary artery hypertension could not be assessed due to inadequate tricuspid regurgitation jet. Right Ventricle The right ventricle is of normal size. Right ventricular systolic function is normal. Aortic Valve The aortic valve is tricuspid. The aortic valve is mildly thickened. There is no aortic stenosis. There is no aortic regurgitation. Mitral Valve The mitral valve is structurally and functionally normal. There is trace mitral regurgitation. Tricuspid Valve The tricuspid valve is structurally normal. There is trace tricuspid regurgitation. Great Vessels The aortic root is of normal size. No abnormalities are identified. Ascending aorta is normal in size. Effusion The pericardium appears normal. There is no pericardial effusion. Rest ECG/Medications The baseline ECG displays normal sinus rhythm. The baseline rhythm demonstrates PAC. The patient's oxygen saturation at baseline was 98%. The patient's resting blood pressure was hypertensive at baseline. The patient is on the following cardiac medications:. Statin. ezetimibe. Stress ECG There was no new ST segment depression with stress. The patient's oxygen saturation during stress was 96%. Stress Echo The left ventricular ejection fraction is hyperdynamic at peak exercise. There was normal augmentation of all left ventricular wall segments post exercise. Recovery No new ST segment changes during recovery. Patient demonstrated PAC . ? 2D Measurements ? Volumes ?IVSd: 1.1 cm ? LA Volume Index: ?LVIDd: 4.2 cm ? 23.6 ml/m2 ?LVIDs: 2.6 cm ?LVPWd: 1.1 cm ?LV mass(C)d: 157.9 grams ?LV mass(C)dI: 89.7 grams/m2 ?asc Aorta Diam: 3.4 cm Doppler MV E max billy: 70.7 cm/sec MV A max billy: 70.2 cm/sec MV E/A: 1.0 MV dec time: 0.20 sec Lat Peak E' Billy: 8.3 cm/sec E/ e' (lat): 8.6 Med Peak E' Billy: 6.1 cm/sec E/e' (med): 11.6 E/e' Average: 10.1 I ?WMSI = 1.00 ? % Normal = 100 ?No LV segmental ?wall motion ?abnormalities. II ?WMSI = 1.00 ? % Normal = 100 ?No LV segmental ?wall motion ?abnormalities. ?Segments ??Size X - Cannot ?2 - ?4 - ?1-2 ? small Interpret ?1 - Normal ?? Hypokinetic 3 - Akinetic Dyskinetic ?? 3-5 ? moderate 5 - ? 6-14 ?large Aneurysmal ?15-16 ?? diffuse Procedure Note Álvaro Cardoza MD - 08/01/2022 Exercise Stress Echocardiogram Report Name: YESSENIA LUONG Study Date: 308:38 AMBP: 142/74 mmHg Patient Location: HR: 69 : 1950 Height: 161 cm Account: [id number] Age: 72 yrs Weight: 72 kg Gender: Female BSA: 1.8 m2 Ordering Physician: DELFINA ALEXANDRE Referring Physician: DELFINA ALEXANDRE Performed By: SOO Woods Reason For Study: Abnormal EKG Exam Location: [facility]. Interpretation Summary IMPRESSION: There was no evidence of ischemia at a diagnostic level ofstress. REST: Left ventricle is of normal size. Wall thickness is normal. Leftventricular systolic function is normal. Left ventricular ejection fraction isestimated visually at 65%. There are no segmental wall motion abnormalities. Theright ventricle is of normal size. Right ventricular systolic function isnormal. See remainder of report for additional findings. STRESS: 7 METS. Peak heart rate 102% maximum predicted. Stopped secondaryto shortness of breath. With stress: hemodynamically stable; no arrhythmias;no significant ST-TW changes; all left ventricular segments becameappropriately hyperdynamic. Stress Results Protocol: Jesus Maximum Predicted HR: 147 bpm Target HR: 125 bpm % Maximum Predicted HR: 102 % Stage DurationHeart Rate BP (mm:ss) (bpm) Rest 69 142/74 Stage 1 3:00 142 172/76 Stage 2 3:00 150 182/80 RecoveryR 6:00 89 152/80 Stress Duration: 6:00 mm:ss Recovery Time: 6:00 mm:ss Maximum Stress HR: 150 bpm METS: 7 Procedure The patient's blood pressure was normal with exercise. Exercise capacitywas good. The patient reported no chest discomfort. The study was terminated becauseof dyspnea. Left Ventricle Left ventricle is of normal size. Wall thickness is normal. Leftventricular systolic function is normal. Left ventricular ejection fraction isestimated visually at 65%. There are no segmental wall motion abnormalities.Pulmonary artery hypertension could not be assessed due to inadequate tricuspid regurgitation jet. Right Ventricle The right ventricle is of normal size. Right ventricular systolic functionis normal. Aortic Valve The aortic valve is tricuspid. The aortic valve is mildly thickened. Thereis no aortic stenosis. There is no aortic regurgitation. Mitral Valve The mitral valve is structurally and functionally normal. There is tracemitral regurgitation. Tricuspid Valve The tricuspid valve is structurally normal. There is trace tricuspid regurgitation. Great Vessels The aortic root is of normal size. No abnormalities are identified.Ascending aorta is normal in size. Effusion The pericardium appears normal. There is no pericardial effusion. Rest ECG/Medications The baseline ECG displays normal sinus rhythm. The baseline rhythmdemonstrates PAC. The patient's oxygen saturation at baseline was 98%. The patient'sresting blood pressure was hypertensive at baseline. The patient is on thefollowing cardiac medications:. Statin. ezetimibe. Stress ECG There was no new ST segment depression with stress. The patient's oxygen saturation during stress was 96%. Stress Echo The left ventricular ejection fraction is hyperdynamic at peak exercise.There was normal augmentation of all left ventricular wall segments post exercise. Recovery No new ST segment changes during recovery. Patient demonstrated PAC . 2D Measurements Volumes IVSd: 1.1 cm LA VolumeIndex: LVIDd: 4.2 cm 23.6 ml/m2 LVIDs: 2.6 cm LVPWd: 1.1 cm LV mass(C)d: 157.9 grams LV mass(C)dI: 89.7 grams/m2 asc Aorta Diam: 3.4 cm Doppler MV E max billy: 70.7 cm/sec MV A max billy: 70.2 cm/sec MV E/A: 1.0 MV dec time: 0.20 sec Lat Peak E' Billy: 8.3 cm/sec E/ e' (lat): 8.6 Med Peak E' Billy: 6.1 cm/sec E/e' (med): 11.6 E/e' Average: 10.1 I WMSI = 1.00 % Normal = 100 No LVsegmental wallmotion abnormalities. II WMSI = 1.00 % Normal = 100 No LVsegmental wallmotion abnormalities. SegmentsSize X - Cannot 2 - 4 - 1-2small Interpret 1 - Normal Hypokinetic 3 - Akinetic Dyskinetic 3-5moderate 5 - 6-14large Aneurysmal 15-16diffuse Delfina Alexandre MD ECHO ORDERABLES documented in this encounter Visit Diagnoses Diagnosis Familial hypercholesterolemia Pure hypercholesterolemia THERESA (obstructive sleep apnea) Obstructive sleep apnea (adult) (pediatric) Dyspnea, unspecified type documented in this encounter Care Teams Bone Density Technician Relationship Specialty Start Date End Date Mary Altamirano MD PCP - General Family Medicine 01/26/22 08/26/22 documented as of this encounter
--- OUTSIDE RECORDS SUMMARY | 2024-02-15 13:15 | XMS_ITS | Encounter Summary ---
Author Organization [facility] [place] [address] Care Team Providers Care Tower Attendant Name Role Phone Guerline Quigley KEISHA Primary Care Provider [phone] Encounter Details Date Type Department Care Team (Late st Contact Info) Description 06/17/2023 Telephone Cardiology at [address] [address] Liam Noel MD [facility] [place] [address] Social History Tobacco Use Types Packs/Day Years [...] Telephone Encounter - Ashlyn Celis RN - 06/19/2023 10:42 AM EST Liam Noel MD to [facility] Card Nurse If she feels it is linked, then OK * Telephone Encounter - Chantell Sy Jena - 06/17/2023 9:38 AM EST Patient called because she is having side affects that she thinks is related to Nexletol. She is having bone aches and depression, brain fog. She will be having her cholesterol checked on Saturday. She would like to know if she can stopped the med for a few weeks. Please call her @ [phone] documented in this encounter Plan of Treatment Upcoming Encounters Date Type Department Care Team (Late st Contact Info) Description 03/13/2024 9:45 AM EDT Office Visit Dermatology at [address] [place] [address] Emiliano Salinas MD [address] [facility], BAKARI [place] [address] documented as of this encounter Visit Diagnoses Not on filedocumented in this encounter Care Teams Tower Attendant Relationship Specialty Start Date End Date Guerline Quigley APRN PCP - General Family Medicine 03/18/23 09/29/23 documented as of this encounter
--- OUTSIDE RECORDS SUMMARY | 2024-02-15 13:15 | XMS_ITS | Encounter Summary ---
Author Organization [facility] [place] [address] Care Team Providers Care Craps Dealer Name Role Phone Guerline Quigley KEISHA Primary Care Provider [phone] Encounter Details Date Type Department Care Team (Late st Contact Info) Description 07/31/2023 Telephone [place] [phone] Luna Lazcano RN Social History Tobacco Use [...] Telephone Encounter - Luna Lazcano RN - 07/31/2023 1:50 PM EST Copied from CRM #[id number]. Topic: Specialty Dept CRMs - Medication Issues >> Jul 31, 2023 1:37 PM Maya Muller wrote: Medication Issues Specialist Virginia Everett MD Relationship (if other than patient-full name): self Reason for call: Medication Issue (if symptom based used Triage Subtopic) Message/information for the nurse: Patient states she was prescribed Pantoprazole 20 mg and [id number] or 20 mg but when she read the paperwork, both medications indicate it would not be good for herto take because of her brittle bones. Patient would like to know if it is okay to stick with Tums because those have Calcium. Patient also called to follow up on paperwork that her PCP was sending (62 pages) to make sure it arrived. Please call patient back to discuss. Name of Medication: Pantoprazole 20 mg and Viibryd 10 or 20 mg Issue with the medication: Not recommended for those with brittle bones documented in this encounter Plan of Treatment Upcoming Encounters Date Type Department Care Team (Late st Contact Info) Description 03/13/2024 9:45 AM EDT Office Visit Dermatology at [address] [place] [address] Emiliano Salinas MD [address] [facility], [place] [address] documented as of this encounter Visit Diagnoses Not on filedocumented in this encounter Care Teams Craps Dealer Relationship Specialty Start Date End Date Guerline Quigley APRN PCP - General Family Medicine 03/18/23 09/29/23 documented as of this encounter
--- OUTSIDE RECORDS SUMMARY | 2024-02-15 13:15 | XMS_ITS | Encounter Summary ---
Author Organization [facility] [place] [address] Care Team Providers Care Road Commissioner Name Role Phone Guerline Quigley Rodolfo VALDES Primary Care Provider [phone] Encounter Details Date Type Department Care Team (Late st Contact Info) Description 09/30/2023 Telephone Cardiology at [address] [place] [address] Liam Noel MD [facility] [place] [address] Social History Tobacco Use Types Packs/Day Years [...] Telephone Encounter - Ashlyn Celis RN - 09/30/2023 1:13 PM EDT Yessenia called in a message to remind staff to set up order for serum lipid profile before the appointment with Dr. Noel in November documented in this encounter Plan of Treatment Upcoming Encounters Date Type Department Care Team (Late st Contact Info) Description 03/13/2024 9:45 AM EDT Office Visit Dermatology at [place] [address] [facility] [place] [address] Emiliano Salinas MD [address] [facility] [address], [place] [address] documented as of this encounter Visit Diagnoses Not on filedocumented in this encounter Care Teams Road Commissioner Relationship Specialty Start Date End Date Guerline Quigley APRN PCP - General Family Medicine 09/30/23 10/15/23 documented as of this encounter
--- OUTSIDE RECORDS SUMMARY | 2024-02-15 13:15 | XMS_ITS | Encounter Summary ---
Author Organization [facility] [place] [address] Care Team Providers Care Top Dyeing Machine Loader Name Role Phone Veronica Barrios APRN Primary Care Provider Encounter Details Date Type Department Care Team (Latest Contact Info) Description 10/28/2022 Travel Social History Tobacco Use Types Packs/Day [...] 9:45 AM EDT Office Visit Dermatology at [place] [address] [place] [address] Emiliano Salinas MD [address], [place] [address] documented as of this encounter Visit Diagnoses Not on filedocumented in this encounter Care Teams Top Dyeing Machine Loader Relationship Specialty Start Date End Date Veronica Barrios APRN [address] [place] [address] PCP - General Family Medicine 08/27/22 03/17/23 documented as of this encounter
--- OUTSIDE RECORDS SUMMARY | 2024-02-15 13:15 | XMS_ITS | Encounter Summary ---
Author Organization [facility] Address [facility] [place] [address] Care Team Providers Care Supervisor Soakers Name Role Phone Guerline Quigley Rodolfo VALDES Primary Care Provider [phone] Encounter Details Date Type Department Care Team (Late st Contact Info) Description 07/18/2023 Telephone Cardiology at [address] [place] [address] Liam Noel MD [facility] [place] [place] [address] Social History Tobacco Use Types Packs/Day Years [...] Telephone Encounter - Ashlyn Celis RN - 07/18/2023 10:12 AM EST Yessenia called in to ask If she must take the metoprolol every day or can she skip a day and take 6 doses a week instead of 7 Reminder that for her next appointment the cholesterol and uric acid lab [facility] documented in this encounter Plan of Treatment Upcoming Encounters Date Type Department Care Team (Late st Contact Info) Description 03/13/2024 9:45 AM EDT Office Visit Dermatology at [place] [address] [facility] [place] [address] Emiliano Salinas MD [address], MANINDER [place] [address] documented as of this encounter Visit Diagnoses Diagnosis Mixed hyperlipidemia documented in this encounter Care Teams Supervisor Soakers Relationship Specialty Start Date End Date Guerline Quigley APRN PCP - General Family Medicine 03/18/23 09/29/23 documented as of this encounter
--- OUTSIDE RECORDS SUMMARY | 2024-02-15 13:15 | XMS_ITS | Encounter Summary ---
Author Organization [facility]ly [facility] [place] [address] Care Team Providers Care Sand Analyst Name Role Phone Mary Altamirano MD Primary Care Provider [phone] Encounter Details Date Type Department Care Team (Late st Contact Info) Description 08/01/2022 11:00 AM EST Office Visit Cardiology at [address] [place] [phone] Delfina Santiago MD [facility] [place] [address] Nell Inman, [facility] Familial hypercholesterolemia; THERESA (obstructive sleep apnea); Dyspnea, unspecified type Social History Tobacco Use Types [...] Sign Reading Time Taken Comments Blood Pressure 149/80 08/01/2022 10:44 AM EST Pulse 93 08/01/2022 10:44 AM EST Temperature - - Respiratory Rate - - Oxygen Saturation 100% 08/01/2022 10:44 AM EST Inhaled Oxygen Concentration - - Weight 73.5 kg (162 lb) 08/01/2022 10:44 AM EST Height 160 cm (5' 3) 08/01/2022 10:44 AM EST Body Mass Index 28.7 08/01/2022 10:44 AM EST documented in this encounter Progress Notes * Delfina Santiago MD - 08/01/2022 11:00 AM EST CARDIOLOGY OUTPATIENT CLINIC NOTE PRIMARY CARE PROVIDER: Mary Campbell MD REFERRING PROVIDER: No ref. provider found Patient ID: Yessenia Luong is a 72 y.o. female. HPI: 08/01/22 05/21/22 Last appointment Former patient of Dr. Tory Montalvo Familial Hypercholesterolemia, no history of heart disease, no diabetes She has not tolerated statins but has very high baseline LDL cholesterol. She had symptoms with medications (cardiac and otherwise) but was found to have Lyme Disease which may have been causing symptoms. 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 ??She was in 2002 and has had a significant other for many years. ??Her significant other (Deacon Peterson) lives in [place].?She has??5??children and 3 biologic and 8 step??grandchildren. ??She enjoys travel, walking, kayaking, reading, as well as gardening, friends and family Notes from previous appointment with Dr. Montalvo: Present Illness:??Yessenia Luong??is seen at the request of Juan Smith MD??for??follow-up??management of dyslipidemia, specifically??a diagnosis of familial hypercholesterolemia and the inability to tolerate statins??or PCSK9 inhibitors.?On ezetimibe, bempedoic acid (Nexletol), and Vasepa?her LDL fell to 75 mg/dL. She discontinued the ezetimibe due to muscle aches but her LDL went up to 126 mg/dL. She agreed to add back ezetimibe at 5 mg every other day but has actually been taking 5 mgdaily. Because Nexletol can increase uric acid we have also checked this. Unfortunately, Yessenia feels that the Nexletol gives her brain fog - she discontinued both ezetimibe and Nexletol immediately after having her blood work drawn. Yessenia presents today for assessment of her??current lipid values as well as to discuss other lipid lowering options. She wants to discuss getting a coronary CT scan (her sister told her she should do so), she also wants to discuss the fact that when she had recent shoulder surgery, she was told she had a tremendous about of calcium in her tendons. She wonders about taking magnesium and K2. Yessenia also brought all her recent lab work and has questions about readings that seem high normal or low normal that she would like to review. ?? PROBLEM LIST: Problem List: 2022-02: Varicose veins of left lower extremity with pain 2022-02: Venous insufficiency of both lower extremities 2015-07: Status post abdominoplasty 2015-06: Status post bilateral breast reduction 2015-02: Macromastia 2013-08: Allergy to insect stings 2013-08: Allergic rhinoconjunctivitis 2013-08: Mild intermittent asthma 2013-08: Environmental allergies 2013-08: Chronic urticaria 2013-07: Solar lentigo 2013-07: Female pattern alopecia 2011-12: Urinary incontinence, urge 2011-11: Osteoarthritis 2011-11: Hypercholesteremia 2011-11: THERESA (obstructive sleep apnea) 2011-04: Androgenetic alopecia 2011-04: Rosacea MEDICATIONS: Current Outpatient Medications Medication Sig Dispense Refill ??? atorvastatin (Lipitor) 80 mg Tablet Take 1 tablet by mouth daily. 90 tablet 3 ??? escitalopram oxalate (LEXAPRO) 5 mg Tablet Take 15 mg by mouth daily. ??? ezetimibe (Zetia) 10 mg Tablet 1/2 tablet daily 45 tablet 0 ??? bempedoic acid (Nexletol) 180 mg Tablet Take 1 tablet by mouth daily. 90 tablet 0 ??? finasteride (Proscar) 5 mg Tablet TAKE 1 TABLET BY MOUTH DAILY 30 tablet 5 ??? sulfacetamide (KLARON) 10 % Suspension Apply topically to face 1-2 times a day. 118 mL 3 ??? EPINEPHrine 0.3 mg/0.3 mL Auto-Injector as needed. 3 ??? TIROSINT 50 mcg Capsule Take 50 mcg by mouth daily. 1 ??? traZODone (DESYREL) 50 mg Tablet Take 50 mg by mouth nightly. ??? estradiol (ESTRACE) 0.01 % (0.1 mg/gram) Cream APPLY 1 GRAM VAGINALLY TWICE A WEEK DIRECTED 0 ??? naproxen (NAPROSYN) 500 mg Tablet as needed. 0 ??? olopatadine (PATANOL) 0.1 % Drops instill 1 drop into affected eye twice a day 0 ??? azelastine (ASTELIN) 137 mcg (0.1 %) Aerosol, [place]ach[place] 0 ??? PROVENTIL HFA 90 mcg/actuation HFA Aerosol Inhaler inhale 2 puffs by mouth if needed 0 ??? acetaminophen (TYLENOL) 500 mg Tablet Take 2 tablets by mouth every 6 hours as needed for Pain (for MODERATE pain). 30 tablet 1 ??? ASCORBATE CALCIUM (VITAMIN C ORAL) Take by mouth. ??? ERGOCALCIFEROL, VITAMIN D2, (VITAMIN D ORAL) Take by mouth. ??? multivitamin (THERAGRAN) tablet Take 1 tablet by mouth daily. ??? fexofenadine (EVANGELINA) 180 mg tablet 180 mg, PO, Once daily ??? Mometasone (NASONEX) 50 mcg/Actuation [place] 2 Blachly(s) each nostril, Nasal, Twice daily No current facility-administered medications for this visit. Subjective: Review of Systems Constitutional: Negative for malaise/fatigue and weight gain. Residual from Lyme Disease Cardiovascular: Negative for chest pain, claudication, cyanosis, dyspnea on exertion, irregular heartbeat, leg swelling, near-syncope, orthopnea, palpitations, paroxysmal nocturnal dyspnea and syncope. Respiratory: Negative for shortness of breath and sleep disturbances due to breathing. Hematologic/Lymphatic: Does not bruise/bleed easily. Musculoskeletal: Negative for back pain, falls, joint pain and myalgias. Genitourinary: Negative for frequency. Neurological: Negative for dizziness, light-headedness and loss of balance. Psychiatric/Behavioral: Negative for altered mental status and memory loss. Social History: Social History Socioeconomic History ??? Marital status: Spouse name: Not on file ??? Number of children: 2 ??? Years of education: Not on file ??? Highest education level: Not on file Occupational History ??? 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 Smoking status: Former Packs/day: 0.25 Years: 10.00 Pack years: 2.50 Types: Cigarettes ??? Smokeless tobacco: Never Vaping Use ??? Vaping Use: Never used Substance and Sexual Activity ??? Alcohol use: Yes Alcohol/week: 0.0 standard drinks Comment: 3-9 glasses per week ??? Drug use: Yes Types: Marijuana Comment: CBD tab ??? Sexual activity: Not on file Other Topics Concern ??? 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 Social Determinants of Health Financial Resource Strain: Not on file Food Insecurity: Not on file Transportation Needs: Not on file Physical Activity: Not on file Housing Stability: Not on file Objective: Physical Exam Constitutional: Appearance: She is well-developed. Neck: Vascular: No JVD. Cardiovascular: Rate and Rhythm: Normal rate and regular rhythm. Heart sounds: Normal heart sounds. Pulmonary: Effort: Pulmonary effort is normal. Breath sounds: Normal breath sounds. Skin: General: Skin is warm and dry. Neurological: Mental Status: She is alert and oriented to person, place, and time. Psychiatric: Behavior: Behavior normal. Patient Vitals for the past 24 hrs: Pulse BP SpO2 08/01/22 1044 93 149/80 100 % No results found for this or any previous visit (from the past 72 hour(s)). Assessment and Plan: No problem-specific Assessment & Plan notes found for this encounter. Overall cardiac status -she is having shortness of breath with exertion. Given her risk factors I feel it is reasonable tohave a stress echocardiogram. Blood pressure -high today; she is not on any medication. Other readings at goal; will not make any changes today. -continued surveillance -counseled on diet and physical activity Lipids HISTORY OF LIPID VALUES AND MEDICATION TRIALS 02/20/21 Total cholesterol 314 LDL 195 HDL 81 TG 192 10/05/21 Total cholesterol 412 LDL 296 HDL 93 TG 118 11/22/21 total cholesterol 273 LDL 151 HDL 75 TG 234 Since August she is taking the nexletol and ezetimibe --about twice a week. She is not taking the vascepa Trial of nexletol (Bempedoic Acid) and ezetimibe daily 01/17/22 apoB 89Lp(a) 19.8 (ULN < 75) Total cholesterol 212 LDL 115 HDL 59 TG 190 At goal 02/16/22 ApoB 84 Lp(a) Mar 26 2022 Total cholesterol 269 LDL 158 HDL 70 TG 190 On the half doses noted above. 04/05/22 she endorses that: She tried both PCSK9i and my body went into complete spasms and she stopped this. On February 20 she (on her own) she took half of her eztimibe and nexlatol to see if symptoms got better. They did not and she stopped both medications Note that she states the nexlatol may be making her anemic as she read online that this was a side effect. She asks that I order iron tests (she had reached out to her PCP but says it was very hardto get in touch with her PCP). I explain that anemia would not be an expected side effect but many conditions are listed if they occur at the same time as taking the medication. We discussed options for treatment and she will have a trial of niacin. This is a derivative of VitB and she feels that this would be a reasonable choice for her. I explained that there could also be side effects (flushing--but this means that it is working, headache, and that we would want to monitor liver function tests). She did not tolerate the Niacin 05/16/22 Total cholesterol 356 LDL 228 HDL 116 TG 56 On ezetimibe 10 mg 05/21/22 Discussed options. This would include Incliseran (new non-statin) or Lipid Apheresis. I described both. She responded by saying that her sister was on atorvastatin and could she try that. I am not sure she will tolerate this (given intolerance to past statins) but agreed to trial of 80 mg daily (she may try every other day at first, this has a long half life and can be effective on a non-daily basis) 08/01/22 Total cholesterol 366 LDL 236 HDL 91 TG 195 PLAN ?? She agrees for trial of Repatha with support from the Clinical Pharmacy Team ?? Please see attached note by Dr. Nell Inman Time spent for this clinic appointment on the date of service includes: 25 minutes review of her chart and previous lipid evaluation and recommendations; 30 minutes [id number] and 10 minutes coordination of care 1) [id number] counseling as noted above 2) reviewing past medical records, cardiac testing, results of laboratory testing 3) coordinating care with other physicians and allied health care providers This patient was seen and evaluated by both Delfina Santiago MD EdD [facility] JASON and Courtney Knapps part of a Collaborative Practice Agreement. Dr. Santiago supervised in and participated in all aspects of this appointment This clinic note includes: 1. History, Review of Symptoms, Examination, Vital Signs, Medication Review, Assessment and Plan byDelfina Santiago MD, Vonnie 2. Documentation of evaluation, recommendations, and counseling by Nell Inman PharmD. Delfina Santiago MD, Vonnie, ANJALI, JASON Attending [facility] Preventive Cardiology Lipid Clinic Advanced Hypertension Clinic * Nell Inman, [facility] - 08/01/2022 11:00 AM EST Cardiology Education: Multi-Specialty Visit Delfina Santiago MD, Vonnie, ANJALI, JASON & Nell Inman PharmD, [facility] [place] Visit Type: [id number] Summary of Recommendations & Next Steps: The following are recommendations from visit on 08/01/22. Please see notes below for more details and complete visit summary. Recommended Medication Changes: ?? Initiate evolocumab (Repatha) 140 mg SUBCUT every 14 days Lifestyle Modification Goals: ?? Continue to work on aerobic exercise Follow Up Plan: ??? Clinic Follow Up 4 Months Subjective: Patient ID: Yessenia Luong is a 72 y.o. female who has a past medical history of Androgenetic alopecia (04/24/2011), Hypercholesteremia, Hypothyroidism, Obesity (BMI 30.0-34.9), THERESA (obstructive sleep apnea) (11/21/2011), Rosacea (04/24/2011), Seasonal allergies, and Urinary incontinence, urge (01/08/2012). Patient presents to visit today for medication management and education. HPI: Yessenia is a 72 year old female referred for management of hyperlipidemia. 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 She was in 2002. ??? Current Lipid Regimen: o Goal LDL < 130 o No current medications Previous Lipid Medications: Atorvastatin - muscle pain Rosuvastatin - muscle pain Praluent - full body spasms Nexletol - brain fog Zetia - muscle pain Niacin - muscle pain, flushing Medication Reconciliation / Management: Adherence tools include [] Pillbox [] Reminder alarms [] Med List [] Other [x] None Barriers to med adherence: [] Cost [x] Side Effects [] Unclear Directions [] Other: [] None # of Missed doses/week Denies Lifestyle: ??? Tobacco: Denies ??? Alcohol: Occasional Exercise: Do you exercise regularly? Yes Type of exercise(s), frequency, length Hiking, walking List any problems/restrictions with exercise. N/A Diet: ??? Reports well-balanced diet Objective: Allergies and Drug intolerance: Allergies Allergen Reactions ??? Morphine Diarrhea and GI upset Other reaction(s): Nausea ??? Oxycodone Hcl Other reaction(s): Nausea ??? Penicillins Other reaction(s): Nausea ??? Atorvastatin Calcium ??? Bee Pollen ??? Celecoxib ??? Potassium Clavulanate ??? Rosuvastatin Calcium ??? Simvastatin ??? Sulfa (Sulfonamide Antibiotics) ??? Sulfamethoxazole ??? Trimethoprim ??? Fenofibrate ??? Voltaren [Diclofenac Sodium] Reconciled Medication List: Current Outpatient Medications Medication Sig Dispense Refill ??? traZODone (DESYREL) 50 mg Tablet Take 50 mg by mouth nightly. ??? ERGOCALCIFEROL, VITAMIN D2, (VITAMIN D ORAL) Take by mouth. ??? fexofenadine (EVANGELINA) 180 mg tablet 180 mg, PO, Once daily ??? Mometasone (NASONEX) 50 mcg/Actuation [place] 2 Blachly(s) each nostril, Nasal, Twice daily ??? atorvastatin (Lipitor) 80 mg Tablet Take 1 tablet by mouth daily. 90 tablet 3 ??? escitalopram oxalate (LEXAPRO) 5 mg Tablet Take 15 mg by mouth daily. ??? ezetimibe (Zetia) 10 mg Tablet 1/2 tablet daily 45 tablet 0 ??? bempedoic acid (Nexletol) 180 mg Tablet Take 1 tablet by mouth daily. 90 tablet 0 ??? finasteride (Proscar) 5 mg Tablet TAKE 1 TABLET BY MOUTH DAILY 30 tablet 5 ??? sulfacetamide (KLARON) 10 % Suspension Apply topically to face 1-2 times a day. 118 mL 3 ??? EPINEPHrine 0.3 mg/0.3 mL Auto-Injector as needed. 3 ??? TIROSINT 50 mcg Capsule Take 50 mcg by mouth daily. 1 ??? estradiol (ESTRACE) 0.01 % (0.1 mg/gram) Cream APPLY 1 GRAM VAGINALLY TWICE A WEEK DIRECTED 0 ??? naproxen (NAPROSYN) 500 mg Tablet as needed. 0 ??? olopatadine (PATANOL) 0.1 % Drops instill 1 drop into affected eye twice a day 0 ??? azelastine (ASTELIN) 137 mcg (0.1 %) Aerosol, [place] 0 ??? PROVENTIL HFA 90 mcg/actuation HFA Aerosol Inhaler inhale 2 puffs by mouth if needed 0 ??? acetaminophen (TYLENOL) 500 mg Tablet Take 2 tablets by mouth every 6 hours as needed for Pain (for MODERATE pain). 30 tablet 1 ??? ASCORBATE CALCIUM (VITAMIN C ORAL) Take by mouth. ??? multivitamin (THERAGRAN) tablet Take 1 tablet by mouth daily. No current facility-administered medications for this visit. Most Recent Vitals: BP Readings from Last 3 Encounters: 08/01/22 149/80 05/21/22 157/68 04/05/22 145/62 BMI Readings from Last 3 Encounters: 08/01/22 28.70 kg/m?? 05/21/22 27.55 kg/m?? 04/05/22 28.60 kg/m?? Pertinent Lab values: Lab Results Component Value Date CHLPL 366 08/01/2022 HDL 91 08/01/2022 CHOLHDL 4.0 08/01/2022 TRIG 195 08/01/2022 LDLCHOL 236 08/01/2022 Lab Results Component Value Date NA 142 02/13/2019 K 3.6 02/13/2019 CL 101 02/13/2019 CO2 28 02/13/2019 BUN 19 (H) 02/13/2019 CREATININE 0.79 02/13/2019 GLUCOSE 108 02/13/2019 CALCIUM 9.8 02/13/2019 ESTGFR 76 02/13/2019 Lab Results Component Value Date HA1C 5.6 12/06/2017 No results found for: TEODORO LUQUE Assessment and Plan: Lipid Management: ??? Most recent Lipid Panel (08/01/2022) Tot: 366 T HDL: 91 LDL: 236 (ApoB - in process). LDL is markedly elevated. Yessenia notes that she did not tolerate another trial of atorvastatin and is currently not taking any lipid-lowering medications. ??? Discussed alternatives with Yessenia today given that she has significant side effect to many lipid-lowering medications. Agree to try to get coverage for alternate PCSK9i (Repatha) today. Yessenia didnot tolerate Praluent, however she notes the injections themselves were easy. PharmD to connect with Specialty Pharmacy to investigate coverage. Could consider another trial of Nexletol or Nexlizet. Education/Counseling ??? Provided counseling on the following topics: [] Cholesterol Pathophysiology & Management [x] Specific Medication (Mechanism, Adverse Effects) [x] Lipid Goals [] Blood Pressure Goals [] DASH Diet [] Exercise Recommendations Follow Up: Clinic Follow Up 4 Months Patient verbalized agreement and understanding of plan with no further questions at this time. Nell Inman, PharmD, BCGP documented in this encounter Plan of Treatment Upcoming Encounters Date Type Department Care Team (Late st Contact Info) Description 03/13/2024 9:45 AM EDT Office Visit Dermatology at [place] [address] [place] [address] Emiliano Salinas MD [address], [place] [address] documented as of this encounter Visit Diagnoses Diagnosis Familial hypercholesterolemia Pure hypercholesterolemia THERESA (obstructive sleep apnea) Obstructive sleep apnea (adult) (pediatric) Dyspnea, unspecified type documented in this encounter Care Teams Sand Analyst Relationship Specialty Start Date End Date Mary Altamirano MD PCP - General Family Medicine 01/26/22 08/26/22 documented as of this encounter
--- OUTSIDE RECORDS SUMMARY | 2024-02-15 13:15 | XMS_ITS | Encounter Summary ---
Author Organization [facility] [place] [address] Care Team Providers Care Die Maker Trim Name Role Phone Mary Altamirano MD Primary Care Provider [phone] Encounter Details Date Type Department Care Team (Latest Contact Info) Description 07/25/2022 Travel Social History Tobacco Use Types Packs/Day [...] 9:45 AM EDT Office Visit Dermatology at [place] [address] [place] [phone] Emiliano Salinas MD [address], [place] [address] documented as of this encounter Visit Diagnoses Not on filedocumented in this encounter Care Teams Die Maker Trim Relationship Specialty Start Date End Date Mary Altamirano MD PCP - General Family Medicine 01/26/22 08/26/22 documented as of this encounter
--- OUTSIDE RECORDS SUMMARY | 2024-02-15 13:15 | XMS_ITS | Encounter Summary ---
Author Organization [facility] [place] [address] Care Team Providers Care Coin Machine Collector Supervisor Name Role Phone Mary Altamirano MD Primary Care Provider [phone] Encounter Details Date Type Department Care Team (Latest Contact Info) Description 08/23/2022 Travel Social History Tobacco Use Types Packs/Day [...] AM EDT Office Visit Dermatology at [place] [address] [place] [phone] Emiliano Salinas MD [address], [place] [address] documented as of this encounter Visit Diagnoses Not on filedocumented in this encounter Care Teams Coin Machine Collector Supervisor Relationship Specialty Start Date End Date Mary Altamirano MD PCP - General Family Medicine 01/26/22 08/26/22 documented as of this encounter
--- OUTSIDE RECORDS SUMMARY | 2024-02-15 13:15 | XMS_ITS | Encounter Summary ---
Author Organization [facility] [place] [address] Care Team Providers Care Artist'S Model Name Role Phone Mary Altamirano MD Primary Care Provider Encounter Details Date Type Department Care Team (Latest Contact Info) Description 06/15/2022 2:00 PM EST TH Visit (TeleHealth) Cardiology at [address] [address] Derick Acosta, [facility] [place] [address] Nutritional counseling Social History Tobacco Use Types Packs/Day Years [...] as of this encounter Progress Notes * Derick Acosta RD - 06/15/2022 2:00 PM EST Images from the original note were not included. [facility] Cardiovascular Medicine Cardiology Nutrition [place] [address] , #2 eFax: 06/15/22 Identification Yessenia Luong is a 72 y.o. patient of Mary Campbell MD referred to Cardiology Dietitian Beamer Helper By Delfina Santiago MD, Lipidologist, for nutrition management of familial hypercholesterolemia in the setting of statin and PCSK9 intolerance. Yessenia is known to me from 2019 when I worked with her initially for the same condition. 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 Today's visit started after a 45-minute delay; patient's telephone went to [employer] at the time of our scheduled telephone visit; patient contacted [facility] [employer] for assistance with Zoom, then e-mailed me that she was waiting for our visit. Subjective Yessenia Luong's Overall Health Goal: To reduce cardiac risk factors while maintaining quality of life. Plan from last visit Discussed gluten-free, dairy-free diet application. Yessenia also wants to remove nightshades from her Diet for three months to determine if she could feel better without them. Previous Food and Lifestyle-related Successes: 1. Set up cronometer and taught how to enter foods and read results. Track saturated fats until our next visit. Food and Lifestyle-related Successes: Taking atorvastatin Ordered a cholesterol supplement with plant sterols and plant stanols Barriers Encountered & Resolutions Identified: Doesn't enjoy cooking; used to cook very well. Alcohol Confusion Unable to use cronometer Objective Mediterranean-style (gluten-free, dairy-free, soy-free) Estimated body mass index is 28.6 kg/m?? as calculated from the following: Height as of 04/05/22: 161.3 cm (5' 3.5). Weight as of 04/05/22: 74.4 kg (164 lb). IBW = 120# +/- 10% ( 55 kg) Estimated kcal needs = 55 kg x 25 kcals = 1400 kcals daily Estimated protein needs = 55 kg x 1.0 g = 55 g protein daily SFA < 7% = 11 g/day Fluid needs: 25 to 30 ml/kg ABW = Physical Estimated body mass index is 27.55 kg/m?? as calculated from the following: Height as of 05/21/22: 161.3 cm (5' 3.5). Weight as of 05/21/22: 71.7 kg (158 lb). Wt Readings from Last 3 Encounters: 05/21/22 71.7 kg (158 lb) 04/05/22 74.4 kg (164 lb) 02/16/22 72.6 kg (160 lb) No Updated Labs Since Last Visit: No results for input(s): HA1C in the last 7068 hours. Plan/Intervention/Recommendations Try using cronometer from website instead of from [employer]ina. Follow-up: 2 weeks to view saturated fat intake Thank you for the privilege of working with this patient. Derick Acosta RDN, LD This was a TeleHealth Nutrition Visit. Patient verbalizes consent to the telehealth visit for nutrition counseling and coaching. cc: Mary Campbell MD [address] [place] [address] / [facility] [id number] documented in this encounter Plan of Treatment Upcoming Encounters Date Type Department Care Team (Late st Contact Info) Description 03/13/2024 9:45 AM EDT Office Visit Dermatology at [address] [address] Emiliano Salinas MD [address] [place] [address], [facility] [place] [address] documented as of this encounter Visit Diagnoses Diagnosis Nutritional counseling documented in this encounter Care Teams Artist'S Model Relationship Specialty Start Date End Date Mary Altamirano MD PCP - General Family Medicine 01/26/22 08/26/22 documented as of this encounter
--- OUTSIDE RECORDS SUMMARY | 2024-02-15 13:15 | XMS_ITS | Encounter Summary ---
Author Organization [facility] [place] [address] Care Team Providers Care Infant Caregiver Name Role Phone Dana Cedillo DO Primary Care Provider [phone] Encounter Details Date Type Department Care Team (Latest Contact Info) Description 10/16/2023 Travel Social History Tobacco Use Types Packs/Day [...] 9:45 AM EDT Office Visit Dermatology at [place] [address] [place] [phone] Emiliano Salinas MD [address], BAKARI [place] [address] documented as of this encounter Visit Diagnoses Not on filedocumented in this encounter Care Teams Infant Caregiver Relationship Specialty Start Date End Date Dana Cedillo DO [address] [place] [address] PCP - General Family Medicine 10/16/23 documented as of this encounter
--- OUTSIDE RECORDS SUMMARY | 2024-02-15 13:15 | XMS_ITS | Encounter Summary ---
Author Organization [facility] [place] [address] Care Team Providers Care Account Advisor Name Role Phone Veronica Barrios Liyah VALDES Primary Care Provider Encounter Details Date Type Department Care Team (Late st Contact Info) Description 02/06/2023 Telephone Cardiology at [address] [place] [address] Liam Noel MD [facility] [address] [place] [address] Social History Tobacco Use Types Packs/Day Years [...] Telephone Encounter - Sarah Shannon RN - 02/06/2023 1:37 PM EDT Yessenia called office to confirm her 03/18/2023 appointment and to ask if she should have her cholesterol drawn before the appointment. Lab orders verified and will fax to [facility] lab per patient request. documented in this encounter Plan of Treatment Upcoming Encounters Date Type Department Care Team (Late st Contact Info) Description 03/13/2024 9:45 AM EDT Office Visit Dermatology at [place] [address] [place] [address] Emiliano Salinas MD [address], BAKARI [place] [address] documented as of this encounter Visit Diagnoses Not on filedocumented in this encounter Care Teams Account Advisor Relationship Specialty Start Date End Date Veronica Barrios APRN [address] [place] [address] PCP - General Family Medicine 08/27/22 03/17/23 documented as of this encounter
--- OUTSIDE RECORDS SUMMARY | 2024-02-15 13:15 | XMS_ITS | Encounter Summary ---
Author Organization [facility] [place] [address] Care Team Providers Care Telecommunicator Supervisor Name Role Phone Guerline Quigley Rodolfo VALDES Primary Care Provider [phone] Encounter Details Date Type Department Care Team (Late st Contact Info) Description 08/06/2023 Refill Cardiology at [address] [place] [address] Liam Noel MD [facility] [place] [address] Social History Tobacco Use Types Packs/Day Years [...] encounter Miscellaneous Notes * Telephone Encounter - Yarelis Youngblood Nova - 08/06/2023 10:24 AM EST Patient called at 10:20 a.m. on 08/06/2023. She stated her pharmacy, [facility], needs a prior auth done for Nexletol 180 mg. 1X daily. She said she has about 30 pills left. documented in this encounter Plan of Treatment Upcoming Encounters Date Type Department Care Team (Late st Contact Info) Description 03/13/2024 9:45 AM EDT Office Visit Dermatology at [place] [address] [place] [address] Emiliano Salinas MD [address], [place] [address] documented as of this encounter Visit Diagnoses Diagnosis Mixed hyperlipidemia documented in this encounter Care Teams Telecommunicator Supervisor Relationship Specialty Start Date End Date Guerline Quigley APRN PCP - General Family Medicine 03/18/23 09/29/23 documented as of this encounter
--- OUTSIDE RECORDS SUMMARY | 2024-02-15 13:15 | XMS_ITS | Encounter Summary ---
[place] [address] Care Team Providers Care State Superintendent Of [employer] Name Role Phone Mary Altamirano MD Primary Care Provider [phone] Reason for Visit * Reason Comments Medication Management Patient Education Medication Refill Encounter Details Date Type Department Care Team (Late st Contact Info) Description 08/07/2022 Specialty [place] [phone] Xochitl Loyola RPH Social History Tobacco Use Types Packs/Day [...] as of this encounter Progress Notes * Xochitl Loyola RPH - 08/07/2022 1:03 PM EST Specialty Pharmacy Consultation; Xochitl Loyola RPH Comprehensive Medication Management (CMM) Yessenia S Ag Diagnosis: hyperlipidemia Therapy Start Date: anticipated by 08/11/22 Contact in person or via telephone: telephone Ms. Yessenia Luong is a 72 y.o. (1950) female who was contacted in regard to specialty medication. Spoke with patient regarding Repatha . A review of the medication therapy was performed. The medication was Filled as scheduled, and all medication related questions and concerns were addressed. The specialty pharmacy staff will follow up with the patient 5-7 days prior to next refill. Is the patient willing to proceed with the Clinical Assessment? Yes Summary and Recommendations: Yessenia was contacted today for an initial fill and consultation of Repatha. We let her know her insurance has approved the prior authorization through February 03 of this year. I introduced her to Specialty Pharmacy services and provided our contact information. She has been enrolled in home delivery and we set up her contact preferences. All other medications, allergies, and medical conditionswere reviewed and confirmed to have no clinically significant drug interactions or contraindications to Repatha therapy. Yessenia had concerns about potential side effects of the medication as she has not tolerated statins or Praluent in the past. On the Praluent, she had full body muscle spasms. Reviewed that this is nota listed side effect with the Repatha so very unlikely to occur but that with the Repatha could experience lower back muscle pains. This type of side effect occurs rarely in less than 4% of patients.We also reviewed the other more common side effects (occurring in >10% of patients) which include injection site reactions and common cold symptoms (runny/stuffy nose, headache, fatigue). She is hopeful the Repatha will be tolerable and able to help her lower her cholesterol. Briefly reviewed injection site selection, sterilization, rotation, and technique. Seems comfortable with proceeding with self injection since she has used injectable medication in the past. Aware ofdosing schedule and adherence strategies (calendar, cell phone reminder). Reviewed storage requirements for the medication. Yessenia had questions about traveling with the medication and being able to keep it out of the fridge. Advised each pen device is stable at room temperature for 30 days. Once the medication has been at room temperature it cannot go back in the fridge. After 30 days at room temperature, if the medication has not been used it would have to be discarded. For travel she should only bring enough medication with her for how many injections she will need to complete. If going away for less than 30 days, ok to keep at room temperature the entire time. If going away for more than30 days, she should travel with the pens in a cooler with ice packs and put in the fridge when she r eaches her destination. A sharps container has been provided for disposal of used devices. Reviewed recommended monitoring of cholesterol labs after using the Repatha for 8-12 weeks. Aware afollow up visit with provider is requested for November and plans to have labs done prior (labs alreadyordered). Goal would be to see her LDL cholesterol (bad cholesterol) reduced to less than 130mg/dL.It is currently at 236 mg/dL prior to starting the Repatha. She understands the importance of being able to reduce her cholesterol to prevent cardiac events and is hopeful she is able to tolerate theRepatha. If she tolerates the medication, would be interested in receiving 3 month supply of medication at a time. Aware of Specialty Pharmacy contact information should she have any questions or concerns arise. Clinic follow-up needed: yes - fuv for November still needs to be scheduled Allergies and Drug intolerance: Allergies Allergen Reactions ??? Morphine Diarrhea and GI upset Other reaction(s): Nausea ??? Oxycodone Hcl Other reaction(s): Nausea ??? Penicillins Other reaction(s): Nausea ??? Atorvastatin Calcium ??? Bee Pollen ??? Celecoxib ??? Potassium Clavulanate ??? Rosuvastatin Calcium ??? Simvastatin ??? Sulfa (Sulfonamide Antibiotics) ??? Sulfamethoxazole ??? Trimethoprim ??? Fenofibrate ??? Voltaren [Diclofenac Sodium] Problem List: Patient Active Problem List Diagnosis Code ??? Androgenetic alopecia L64.9 ??? Rosacea L71.9 ??? THERESA (obstructive sleep apnea) G47.33 ??? Osteoarthritis M19.90 ??? Hypercholesteremia E78.00 ??? Urinary incontinence, urge N39.41 ??? Solar lentigo L81.4 ??? 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 Allergy to insect stings Z91.038 ??? Allergic rhinoconjunctivitis J30.9, H10.10 ??? Mild intermittent asthma J45.20 ??? Environmental allergies Z91.09 ??? Chronic urticaria L50.8 ??? Macromastia N62 ??? Status post bilateral breast reduction Z98.890 ??? Status post abdominoplasty Z98.890 ??? 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 Venous insufficiency of both lower extremities I87.2 Special Dietary or Hydration Requirements: no Medication Reconciliation Discrepancies (compared to [facility] med list) -none Medication List: Current Outpatient Medications Medication Sig Dispense Refill ??? evolocumab (Repatha SureClick) 140 mg/mL Pen Injector Inject 1 mL subcutaneously every 14 days.1 mL 11 ??? escitalopram oxalate (LEXAPRO) 5 mg Tablet Take 15 mg by mouth daily. ??? finasteride (Proscar) 5 mg Tablet TAKE [...] azelastine (ASTELIN) 137 mcg (0.1 %) Aerosol, [place] 0 ??? PROVENTIL HFA 90 mcg/actuation HFA [...] Once daily ??? Mometasone (NASONEX) 50 mcg/Actuation [place] 2 [place](s) each nostril, Nasal, Twice daily No current facility-administered medications for this visit. Most Recent Vitals: Ht Readings from Last 1 Encounters: 08/01/22 160 cm (5' 3) Wt Readings from Last 3 Encounters: 08/01/22 73.5 kg (162 lb) 05/21/22 71.7 kg (158 lb) 04/05/22 74.4 kg (164 lb) Temp Readings from Last 3 Encounters: 06/15/15 36.9 ??C (98.4 ??F) (Oral) BP Readings from Last 3 Encounters: 08/01/22 149/80 05/21/22 157/68 04/05/22 145/62 Pulse Readings from Last 3 Encounters: 08/01/22 93 05/21/22 84 04/05/22 68 There is no height or weight on file to calculate BMI. Pertinent Lab values: Lab Results Component Value Date NA 142 02/13/2019 K 3.6 02/13/2019 CL 101 02/13/2019 CO2 28 02/13/2019 BUN 19 (H) 02/13/2019 CREATININE 0.79 02/13/2019 GLUCOSE 108 02/13/2019 CALCIUM 9.8 02/13/2019 Lab Results Component Value Date ALT 18 08/01/2022 AST 19 08/01/2022 ALKPHOS 75 08/01/2022 BILITOT 0.4 08/01/2022 BILIDIR 0.1 08/01/2022 ALBUMIN 4.5 08/01/2022 PROT 7.1 08/01/2022 No results found for: WBC, HGB, HCT, MCV, PLATELET Lab Results Component Value Date HA1C 5.6 12/06/2017 Immunization History Administered Date(s) Administered ??? Hepatitis A Vaccine, unspecified formulation 10/17/2010 ??? Influenza PF, Split (High Dose) 03/23/2019 ??? Tdap Vaccine 10/17/2010 ??? Typhoid Live, Oral 10/17/2010 ??? Zoster, Recombinant 06/16/2018 Assessment and Recommendations: Patient Counseling Patient informed of specialty services: Yes Patient accepted offer to activities counselor: adherence/missed doses, doses and administration, pharmacy contact information, possible drug/OTC drug and food interactions, safe handling, storage, and disposal, possible drug/Rx drug interactions, possible adverse side effects and management, lab monitoring/follow up, cost of medications/cost implications Medication Management Summary Topics discussed: medication safety precautions education provided, drug interaction education provided to patient, safe handling, storage, and disposal discussed, possible adverse effects and management discussed, lab monitoring and follow-up discussed, cost of medications and cost implications discussed, adherence and missed doses discussed, health goals discussed, monitoring medication discussed, over the counter products discussed, reminder to refill or bean picker medication discussed, start medication discussed, timing of medications discussed Time spent: 16-30 min Treatment Outcomes 08/07/2022 1320 Disease progression: Stable Patient Overall Status: Stable Reviewed in detail with patient: Dose appropriateness based on recommended standard dosing Current medication list including OTC medications Medication and disease problems Allergies Comorbid conditions/ Problem List Past adverse events if any Special needs of the patient including physical and cognitive limitations Goals of therapy and management strategies Warnings, precautions, and contraindications Side effects Drug-drug and drug-food interactions Administration instructions including dose, frequency and method Handling, storage, and disposal Verifying expiration dates on products before use Rotating medication inventory to use oldest product first Relevant lab data Treatments impact on disease Dose appropriateness based on recommended standard dosing schedule, including any variations from FDA approved dosing Patient verbalizes understanding and is able to read-back instructions on self-administration/injection, proper storage, drug stability, importance of adherence and management strategies, side effect avoidance and mitigation strategies, and interruptions in therapy: Yes Patient is aware a licensed pharmacist is available 24 hours a day, 7 days a week to discuss medication-related questions or concerns: Yes Patient verbalizes understanding of the common side effect profile of their medication. The patient is able to call 911 or seek urgent care if signs/symptoms of allergy or harmful adverse reactions occur: Yes Additional care/services needed: No Additional equipment/supplies required: Yes If yes, explain: sharps container, alcohol pads, bandaids provided Patient satisfied with care/services provided: Yes Specialty Assessment: Physical and Cognitive Assessment: Functional limitations identified: No Cognitive limitations identified: No Concern regarding orientation/memory: No Concern with reasoning/judgement: No Is patient a fall risk: No Social Assessment: Does patient have a primary animal care taker: No Does patient have an emergency contact on file: Yes Does patient need referral to executive secretary social welfare: No Does patient need referral to advocacy group: No Home Health Assessment: Is the patient in a safe home environment?: Yes Is the patient able to store their medication as directed?: Yes Does the patient have a support network at home?: Yes Reviewed potential home safety hazards with patient: Yes Economic Assessment: Patient is agreeable to medication copay: Yes Actual Copay: $: 0 Days Supply: 28 Welcome Packet and Rights and Responsibilities: Patient provided welcome packet/rights and responsibilities: Yes Specialty Med Adherence Patient Demonstrates Understanding of Importance of Adherence: Yes Educational Information or Adherence Tools Provided: No Adherence Tools Used: directed education Therapy Assessment: Current Medication Dosing/Route/Frequency: Repatha 140 mg/ml pen - Inject the contents of 1 pen subcutaneously once every 14 days Appropriate Therapy: Yes Disease State: Hyperlipidemia Baseline LDL-C Level: 236 Patient's Problems/Needs: lipid panel rechecked at 8-12 weeks, side effect follow up at 1 month Expected Outcome: reduced LDL, reduced risk of cardiac events Treatment Outcome: Therapy initiated Patient's goals: Patient's specific desired goal: LDL < 130 mg/dL and able to tolerate medication with no or limited side effects Measured by: lipid panel, LDL Time-frame to meet goal: 3-6 months On a scale of 1-10, what is the patient's overall confidence level with administering this medication? 9 Patient Counseling: Advised to Rotate Injection Sites: Yes Advised to Allow Medication to Come to Room Temperature Medication at Time of Injection: Yes Monitoring requirements for prescribed medication: LDL On a scale of 1-10 the patient rates their quality of life: n/a Care Plan Reviewed and Approved by both Pharmacist and Patient: Yes Interventions (if applicable): No Pharmacist follow-up needed: Yes - at 1 month make sure medication is tolerable, no similar side effects as with the Praluent Delivery Method: Delivery Patient understands no changes to current drug regimen were made at the appointment and [facility]summary located at top of note) for provider review and follow up. Xochitl Loyola RPH 08/07/22 1:40 PM documented in this encounter Plan of Treatment Upcoming Encounters Date Type Department Care Team (Late st Contact Info) Description 03/13/2024 9:45 AM EDT Office Visit Dermatology at [place] [address] [facility] [address] [place] [address] Emiliano Salinas MD [address], [place] [address] documented as of this encounter Visit Diagnoses Not on filedocumented in this encounter Care Teams State Superintendent Of Schools Relationship Specialty Start Date End Date Mary Altamirano MD PCP - General Family Medicine 01/26/22 08/26/22 documented as of this encounter
--- OUTSIDE RECORDS SUMMARY | 2024-02-15 13:15 | XMS_ITS | Encounter Summary ---
Author Organization [facility] [place] [address] Care Team Providers Care Quarryman Name Role Phone Veronica Barrios APRN Primary Care Provider [phone] Encounter Details Date Type Department Care Team (Latest Contact Info) Description 03/11/2023 Travel Social History Tobacco Use Types Packs/Day [...] 9:45 AM EDT Office Visit Dermatology at [place] [address] [place] [address] Emiliano Salinas MD [address], BAKARI [place] [address] documented as of this encounter Visit Diagnoses Not on filedocumented in this encounter Care Teams Quarryman Relationship Specialty Start Date End Date Veronica Barrios APRN [address] [place] [address] PCP - General Family Medicine 08/27/22 03/17/23 documented as of this encounter
--- OUTSIDE RECORDS SUMMARY | 2024-02-15 13:15 | XMS_ITS | Encounter Summary ---
Author Organization [facility] [place] [address] Care Team Providers Care Automatic Blocker Name Role Phone Veronica Barrios KEISHA Primary Care Provider [phone] Encounter Details Date Type Department Care Team (Late st Contact Info) Description 08/29/2022 Specialty Pharmacy [place] [phone] Rissa Anderson [facility] Social History Tobacco Use Types Packs/Day Years [...] 9:45 AM EDT Office Visit Dermatology at [place] [address] [place] [phone] Emiliano Salinas MD [address], MANINDER [place] [address] documented as of this encounter Visit Diagnoses Not on filedocumented in this encounter Care Teams Automatic Blocker Relationship Specialty Start Date End Date Veronica Barrios APRN [address] [id number] PCP - General Family Medicine 08/27/22 03/17/23 documented as of this encounter
--- OUTSIDE RECORDS SUMMARY | 2024-02-15 13:15 | XMS_ITS | Encounter Summary ---
Author Organization [facility] [place] [address] Care Team Providers Care Verifying Specialist Name Role Phone Guerline Quigley APRN Primary Care Provider [phone] Encounter Details Date Type Department Care Team (Latest Contact Info) Description 09/29/2023 Travel Social History Tobacco Use Types Packs/Day [...] 9:45 AM EDT Office Visit Dermatology at [place] [address] [facility] [place] [address] Emiliano Salinas MD [address], [place] [address] documented as of this encounter Visit Diagnoses Not on filedocumented in this encounter Care Teams Verifying Specialist Relationship Specialty Start Date End Date Guerline Quigley APRN PCP - General Family Medicine 03/18/23 09/29/23 documented as of this encounter
--- OUTSIDE RECORDS SUMMARY | 2024-02-15 13:15 | XMS_ITS | Encounter Summary ---
[facility] [place] [address] Care Team Providers Care Pharmaceutical Salesperson Name Role Phone Guerline Quigley LONGWALL HEADGATE OPERATOR Primary Care Provider [phone] Encounter Details Date Type Department Care Team (Late st Contact Info) Description 07/30/2023 Telephone [place] [phone] Luna Lazcano RN Social History Tobacco Use [...] Telephone Encounter - Luna Lazcano RN - 07/30/2023 1:48 PM EST Copied from [facility] #[id number]. Topic: Specialty Dept CRMs - Generic Call >> Jul 30, 2023 11:45 AM Edita Woodard wrote: Specialist: Karlos, Relationship (if other than patient-full name): self Reason for Call: patient had an appointment with the provider this morning and forgot to ask is sheshould just take tums or if she should take the Acid Reflux medication. Patient stated ok to leave a detailed message on voicemail documented in this encounter Plan of Treatment Upcoming Encounters Date Type Department Care Team (Late st Contact Info) Description 03/13/2024 9:45 AM EDT Office Visit Dermatology at [place] [address] [facility] [place] [address] Emiliano Salinas MD [address] [facility], [place] [address] documented as of this encounter Visit Diagnoses Not on filedocumented in this encounter Care Teams Pharmaceutical Salesperson Relationship Specialty Start Date End Date Guerline Quigley APRN PCP - General Family Medicine 03/18/23 09/29/23 documented as of this encounter
--- OUTSIDE RECORDS SUMMARY | 2024-02-15 13:15 | XMS_ITS | Encounter Summary ---
Author Organization [facility] [place] [address] Care Team Providers Care Pillowcase Cleaner Name Role Phone Veronica Barrios KEISHA Primary Care Provider [phone] Reason for Visit * Reason Comments Skin Lesion Encounter Details Date Type Department Care Team (Late st Contact Info) Description 08/30/2022 9:00 AM EDT Office Visit Dermatology at [facility] [address] [place] [address] Star Moura MD [facility] [address] [address] Encounter for cosmetic laser procedure Social History Tobacco Use Types Packs/Day [...] of this encounter Progress Notes * Anthony Batres, TAQUERIA - 08/30/2022 9:00 AM EDT COSMETIC DERMATOLOGY CLINIC NOTE Date of service: 08/28/2022 Yessenia Luong : 1950 Provider: Star Moura MD. HPI Yessenia Luong is a 72 y.o. year old female. She is here today for cosmetic treatment of lentigines and telangiectasias on the face with IPL and VBEAM respectively. Allergies Allergen Reactions ??? Morphine Diarrhea and GI upset Other reaction(s): Nausea ??? Oxycodone Hcl Other reaction(s): Nausea ??? Penicillins Other reaction(s): Nausea ??? Atorvastatin Calcium ??? Bee Pollen ??? Celecoxib ??? Potassium Clavulanate ??? Rosuvastatin Calcium ??? Simvastatin ??? Sulfa (Sulfonamide Antibiotics) ??? Sulfamethoxazole ??? Trimethoprim ??? Fenofibrate ??? Voltaren [Diclofenac Sodium] EXAM General: NAD, pleasant, cooperative. Skin: A focused skin examination of the face was performed. Diagnosis/Skin findings/Assessment/Plan: #. Lentigines - Discussed with patient that treatment/removal is considered cosmetic, therefore insurance will not cover it and patient will be expected to pay out of pocket. Patient quoted $400 for IPL procedure today. #. Telangiectasias - Discussed with patient that treatment/removal is considered cosmetic, therefore insurance will not cover it and patient will be expected to pay out of pocket. Patient quoted $350 for VBEAM procedure today. LASER TREATMENT LOG Date: 08/29/22 Laser: VBEAM Area: Face Spot: 10 Fluence (J/cm^2): 6.5 Pulse Duration (ms): 10 Pulse #: 350 Paid: $350 Tx By: Star Moura MD Notes: N/A Date: 08/29/22 Laser: IPL Area: Face Spot: 560 Fluence (J/cm^2): 17 Pulse Duration (ms): 15 Pulse #: 56 Paid: $400 Tx By: Star Moura MD Notes: N/A Patient paid $750 upon leaving the clinic today for the above procedure(s). Scribe attestation: TAQUERIA Vang who has performed the documentation for this encounter in the presence of and acting as a scribe for Star Moura MD. I performed the above scribed service and agree with the accuracy of the documentation in this encounter. Reviewed and signed by: Star Moura MD Dermatology [facility] documented in this encounter Plan of Treatment Upcoming Encounters Date Type Department Care Team (Late st Contact Info) Description 03/13/2024 9:45 AM EDT Office Visit Dermatology at [place] [address] [place] [address] Emiliano Salinas MD [address] [facility], [place] [address] documented as of this encounter Visit Diagnoses Diagnosis Encounter for cosmetic laser procedure documented in this encounter Care Teams Pillowcase Cleaner Relationship Specialty Start Date End Date Veronica Barrios APRN [address] [place] [address] PCP - General Family Medicine 08/27/22 03/17/23 documented as of this encounter
--- OUTSIDE RECORDS SUMMARY | 2024-02-15 13:15 | XMS_ITS | Encounter Summary ---
Author Organization [facility] [place] [address] Care Team Providers Care Sales Exhibitor Name Role Phone Veronica Barrios KEISHA Primary Care Provider Encounter Details Date Type Department Care Team (Late st Contact Info) Description 09/03/2022 Abstract Cardiology at [address] [address] Ashlyn Celis, RN Mixed hyperlipidemia Social History Tobacco Use Types [...] 9:45 AM EDT Office Visit Dermatology at [address] [address] Emiliano Salinas MD [address] [place] [address], [facility] [place] [address] documented as of this encounter Visit Diagnoses Diagnosis Mixed hyperlipidemia documented in this encounter Care Teams Sales Exhibitor Relationship Specialty Start Date End Date Veronica Barrios APRN [address] [id number] PCP - General Family Medicine 08/27/22 03/17/23 documented as of this encounter
--- OUTSIDE RECORDS SUMMARY | 2024-02-15 13:15 | XMS_ITS | Encounter Summary ---
[place] [address] Care Team Providers Care Residential Manager Name Role Phone Mary Altamirano MD Primary Care Provider Reason for Visit * Reason Onset Date Comments Medication Refill 08/13/2022 Repatha 90 day supply requestPharmacy change to [facility] Encounter Details Date Type Department Care Team (Late st Contact Info) Description 08/13/2022 Refill Cardiology at [address] [address] Ana Horan green end worker Refill (Repatha 90 day supply request/Pharmacy change to [facility] in [facility]/) Social History Tobacco Use Types Packs/Day Years [...] encounter Miscellaneous Notes * Telephone Encounter - Ana Horan RN - 08/13/2022 10:11 AM EST Vm that she will be away for 6 weeks and would like this prior to her leaving (by August 22) Yessenia goes on to report she is tolerating the Repatha fine Chart reviewed. LV 08-01-22 FUV planned for 4 months Requested Prescriptions Pending Prescriptions Disp Refills ??? evolocumab (Repatha SureClick) 140 mg/mL Pen Injector 6 mL 0 Sig: Inject 1 mL subcutaneously every 14 days. Ana Horan RN 4A Cardiology documented in this encounter Plan of Treatment Upcoming Encounters Date Type Department Care Team (Late st Contact Info) Description 03/13/2024 9:45 AM EDT Office Visit Dermatology at [place] [address] [address] Emiliano Salinas MD [address], [place] [address] documented as of this encounter Visit Diagnoses Diagnosis Familial hypercholesterolemia Pure hypercholesterolemia documented in this encounter Care Teams Residential Manager Relationship Specialty Start Date End Date Mary Altamirano MD PCP - General Family Medicine 01/26/22 08/26/22 documented as of this encounter
--- OUTSIDE RECORDS SUMMARY | 2024-02-15 13:15 | XMS_ITS | Encounter Summary ---
[place] [address] Care Team Providers Care Geriatric Case Manager Name Role Phone Guerline Quigley LAMINATING MACHINE OFFBEARER Primary Care Provider [phone] Encounter Details Date Type Department Care Team (Late st Contact Info) Description 08/02/2023 Telephone [place] [address] Luna Lazcano RN Social History Tobacco Use [...] Telephone Encounter - Luna Lazcano RN - 08/02/2023 10:43 AM EST Copied from [facility] #[id number]. Topic: Specialty Dept CRMs - Generic Call >> Aug 02, 2023 10:31 AM Josefa Hatch wrote: Specialist: Virginia Everett MD Relationship (if other than patient-full name): Self Reason for Call: Had new visit 07-30-23 with labs- Wondering if provider wants to order a T3 lab order, was last done with primary about 3 months ago(unsure exact date) and result was low and was advised to review with endo provider to see if any adjustments were needed to medication ,levothyroxine (Synthroid) 50 mcg tablet - 1 daily. If lab will be ordered requesting to send to [facility] - [address] [place] [address] phone [phone], unable to provide fax. >> Aug 02, 2023 10:41 AM September R wrote: Patient called back in to let the office know her PCP is sending the T3 lab over to the office documented in this encounter Plan of Treatment Upcoming Encounters Date Type Department Care Team (Late st Contact Info) Description 03/13/2024 9:45 AM EDT Office Visit Dermatology at [place] [address] [facility] [place] [address] Emiliano Salinas MD [address], ABKARI [place] [address] documented as of this encounter Visit Diagnoses Not on filedocumented in this encounter Care Teams Geriatric Case Manager Relationship Specialty Start Date End Date Guerline Quigley APRN PCP - General Family Medicine 03/18/23 09/29/23 documented as of this encounter
--- OUTSIDE RECORDS SUMMARY | 2024-02-15 13:16 | XMS_ITS | Encounter Summary ---
Author Organization [place] [address] Care Team Providers Care Warehouse Shipping Associate Name Role Phone Juan Smith MD Primary Care Provider [phone] Reason for Visit * Reason Onset Date Comments Questions 12/29/2019 possible drug re action/side effects Encounter Details Date Type Department Care Team (Late st Contact Info) Description 12/29/2019 Telephone Cardiology at [address] [phone] Rere Stock, RN Questions (possible drug reaction/side effects) Social History Tobacco Use Types Packs/Day Years [...] encounter Miscellaneous Notes * Telephone Encounter - Rere Stock, RN - 12/29/2019 5:50 PM EDT Pt left a message on the nurse triage line: calling to report that she thinks that the Nexletol is making her feel weird and would like to know if she should stop it or decrease the dose. Call returned, no answer, message left asking her to call back tomorrow morning and instructing herto hold the medication to see if the symptoms resolve. Message forwarded to Dr Montalvo as well documented in this encounter Plan of Treatment Upcoming Encounters Date Type Department Care Team (Late st Contact Info) Description 03/13/2024 9:45 AM EDT Office Visit Dermatology at [place] [address] [facility] [place] [address] Emiliano Salinas MD [address], [place] [address] documented as of this encounter Visit Diagnoses Not on filedocumented in this encounter Care Teams Warehouse Shipping Associate Relationship Specialty Start Date End Date Juan Smith MD [address] [place] [address] PCP - General Family Medicine 05/10/16 09/02/21 documented as of this encounter
--- OUTSIDE RECORDS SUMMARY | 2024-02-15 13:16 | XMS_ITS | Encounter Summary ---
Author Organization [facility] [place] [address] Care Team Providers Care Fruit Shipper Name Role Phone Mary Altamirano MD Primary Care Provider Encounter Details Date Type Department Care Team (Latest Contact Info) Description 04/06/2022 Travel Social History Tobacco Use Types Packs/Day [...] 9:45 AM EDT Office Visit Dermatology at [place] [address] [place] [phone] Emiliano Salinas MD [address], MANIDNER [place] [address] documented as of this encounter Visit Diagnoses Not on filedocumented in this encounter Care Teams Fruit Shipper Relationship Specialty Start Date End Date Mary Altamirano MD PCP - General Family Medicine 01/26/22 08/26/22 documented as of this encounter
--- OUTSIDE RECORDS SUMMARY | 2024-02-15 13:16 | XMS_ITS | Encounter Summary ---
[place] [address] Care Team Providers Care Cook Morning Name Role Phone Juan Smith MD Primary Care Provider [phone] Reason for Visit * Reason Comments Medication Refill Encounter Details Date Type Department Care Team (Late st Contact Info) Description 10/12/2020 Refill Cardiology at [address] [phone] Tory Montalvo MD Medication Refill Social History Tobacco Use Types [...] 9:45 AM EDT Office Visit Dermatology at [address] [place] [address] Emiliano Salinas MD [address], [place] [address] documented as of this encounter Visit Diagnoses Diagnosis Familial hypercholesterolemia Pure hypercholesterolemia documented in this encounter Care Teams Cook Morning Relationship Specialty Start Date End Date Juan Smith MD [address] [place] [address] PCP - General Family Medicine 05/10/16 09/02/21 documented as of this encounter
--- OUTSIDE RECORDS SUMMARY | 2024-02-15 13:16 | XMS_ITS | Encounter Summary ---
[place] [address] Care Team Providers Care Cyber Analyst Name Role Phone Mary Altamirano MD Primary Care Provider Reason for Visit * Reason Onset Date Comments Prior Authorization 10/10/2021 Nexletol PA renewal Encounter Details Date Type Department Care Team (Late st Contact Info) Description 10/10/2021 Telephone Cardiology at [address] [phone] Rere Stock greenkeeper (Nexletol PA renewal) Social History Tobacco Use Types Packs/Day Years [...] Miscellaneous Notes * Telephone Encounter - Rere Stock RN - 10/11/2021 10:43 AM EDT Call placed to the home number listed. No answer, message left for the pt to call this remote mortgage underwriter to confirm that she is taking the medication and at what dose. She is also needing to schedule a f/u visit w/Dr Montalvo. Call placed to the [facility] pharmacy in [place], [place] phone [phone] S/w pharmacy staff. The prescription was processed. Pt's co-pay is $60/90 day supply. They will have to order the medication. It should been in by 10/13/21. Awaiting a call back from the pt to get/give the above information. * Telephone Encounter - Rere Stock RN - 10/10/2021 7:16 PM EDT PA request received from [facility] in [place], [place] phone [phone] for Nexletol. Request processed via Cover My Meds. Insurance information: [facility] managed Medicare. ID#: [id number] BIN: [id number] PCN: MIDPRIME GR: [id number] Yessenia Ag Gonsales: [id number] - PA help? Call us at Outcome Approvedtoday CaseId:[id number];Status:Approved;Review Type:Prior Auth;Coverage Start Date:09/10/2021;Coverage End Date:10/10/2022; Drug Nexletol 180MG tablets Form [employer] Electronic PA Form (2016 NCPDP) documented in this encounter Plan of Treatment Upcoming Encounters Date Type Department Care Team (Late st Contact Info) Description 03/13/2024 9:45 AM EDT Office Visit Dermatology at [place] [address] [place] [phone] Emiliano Salinas MD [address], BAKAR[place] [address] documented as of this encounter Visit Diagnoses Not on filedocumented in this encounter Care Teams Cyber Analyst Relationship Specialty Start Date End Date Mary Altamirano MD PCP - General Family Medicine 09/03/21 10/11/21 documented as of this encounter
--- OUTSIDE RECORDS SUMMARY | 2024-02-15 13:16 | XMS_ITS | Encounter Summary ---
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, pt would like to transfer care to Mary Sands MD [address] [place] [id number] [facility] Cardiology [address] [place] [phone] Referral ID Status Reason Start Date Expiration Date V isits Requested Visits Authorized [id number] Closed Consult, Test & Treat PCP Updated and/or Approved 10/12/2021 10/12/2022 10 10 Encounter Details Date Type Department Care Team (Latest Contact Info) Description 11/24/2021 1:00 PM EDT Office Visit Cardiology at [address] [address] Delfina Santiago MD [facility] [place] [address] Familial hypercholesterolemia Social History Tobacco Use Types [...] Sign Reading Time Taken Comments Blood Pressure 143/73 11/24/2021 12:49 PM EDT Pulse 77 11/24/2021 12:49 PM EDT Temperature - - Respiratory Rate - - Oxygen Saturation 100% 11/24/2021 12: 49 PM EDT Inhaled Oxygen Concentration - - Weight 74.2 kg (163 lb 9.6 oz) 11/24/2021 12:49 PM EDT Height 161.3 cm (5' 3.5) 11/24/2021 12 :49 PM EDT patient reported Body Mass Index 28.53 11/24/2021 12:49 PM EDT documented in this encounter Patient Instructions * Patient Instructions* Delfina Santiago MD - 11/24/2021 1:06 PM EDT Go to website: National Lipid Association Read the Patient Tear Sheets For weight Go online to pull up Body Mass Index Chart 02/20/21 Total cholesterol 314 LDL 195 HDL 81 TG 192 10/05/21 Total cholesterol 412 LDL 296 HDL 93 TG 118 [address] total cholesterol 273 LDL 151 HDL 75 TG 234 Information on lipids When you get your cholesterol numbers (from your blood tests) you will see several results. Note that the word ???lipid?? refers to all your values and ???cholesterol?? to all values except Triglycerides. Total cholesterol: this is a measure of all the cholesterol however it is more important to look atthe ???breakdown?? into LDL, HDL, and Triglycerides LDL cholesterol: this is the ???bad?? cholesterol. Your goal is based on your medical history and risk factors. For patients at low risk, this number should be < 130 and optimally < 100. For those at higher risk (with diabetes, known coronary artery disease, stroke, or peripheral vascular disease) your number should be < 70 (with some guidelines recommending < 55) HDL cholesterol: this is the ???good?? cholesterol because it helps take the bad cholesterol out of your body. Higher numbers are generally better but > 40 is considered adequate. At this time the importance of HDL is not entirely clear and we have no good medications to raise this at present. Triglycerides: This is another lipid and is associated with risk for heart disease. Very high levels (> 1000) can put you at risk for pancreatitis (an inflammation of your pancreas organ). Lifestyle factors are very helpful in lowering Triglycerides including weight loss, diet, and exercise. Optimal level is < 150 however mild elevations are generally treated with life style changes. Your LDL is much improved Your goal would at least be < 130 I would continue the Nexletol daily and take the ezetimibe daily. Have blood tests again in about 6weeks and we will see where we are. Hold off on the Vascepa for now. Have a fasting blood tests in about six weeks documented in this encounter Progress Notes * Delfina Santiago MD - 11/24/2021 1:00 PM EDT CARDIOLOGY OUTPATIENT CLINIC NOTE PRIMARY CARE PROVIDER: Juan Smith MD REFERRING PROVIDER: Mary Campbell Patient ID: Yessenia Luong is a 71 y.o. female. HPI: 11/24/[address] Tory Montalvo Familial Hypercholesterolemia, no history of heart disease, no diabetes She has not tolerated statins but has very high baseline LDL cholesterol. She had symptoms with medications (cardiac and otherwise) but was found to have Lyme Disease which may have been causing symptoms. 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 ??She was in 2002 and has had a significant other for many years. ??Her significant other (Yoshalom Peterson) lives in [place].?She has??5??children and 3 biologic and 8 step??grandchildren. ??She enjoys travel, walking, kayaking, reading, as well as gardening, friends and family ?? Present Illness:??Yessenia Luong??is seen at the request [...] to review. ?? PROBLEM LIST: Problem List: 2015-07: Status post abdominoplasty 2015-06: Status post [...] Outpatient Medications Medication Sig Dispense Refill ??? ezetimibe (Zetia) 10 mg Tablet 1/2 tablet daily 45 tablet 0 ??? bempedoic acid (Nexletol) 180 mg Tablet Take 1 tablet by mouth daily. 90 tablet 0 ??? Vascepa 1 gram Capsule TAKE 2 CAPSULES BY MOUTH TWICE DAILY 360 capsule 3 ??? finasteride (Proscar) 5 mg Tablet TAKE 1 TABLET BY MOUTH DAILY 30 tablet 5 ??? atorvastatin (LIPITOR) 10 mg Tablet Take one tablet once a week 12 tablet 3 ??? sulfacetamide (KLARON) 10 % Suspension Apply [...] azelastine (ASTELIN) 137 mcg (0.1 %) Aerosol, Rapidan 0 ??? PROVENTIL HFA 90 mcg/actuation HFA [...] Once daily ??? Mometasone (NASONEX) 50 mcg/Actuation Pitman 2 Rapidan(s) each nostril, Nasal, Twice daily No current [...] teacher Tobacco Use ??? Smoking status: Former Smoker Packs/day: 0.25 Years: 10.00 Pack years: 2.50 Types: Cigarettes ??? Smokeless tobacco: Never Used Vaping Use ??? Vaping Use: Never used Substance and Sexual Activity ??? Alcohol use: Yes Alcohol/week: 0.0 standard drinks Comment: 3-9 glasses per week ??? Drug use: Yes Types: Marijuana Comment: CBD tab ??? Sexual activity: Not on file Other Topics Concern ??? Not on file Social History Narrative Retired, previously worked as early intervention school psychologist. 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 Social [...] the past 24 hrs: Pulse BP SpO2 11/24/21 1249 77 143/73 100 % No results found for this or any previous visit (from the past 72 hour(s)). Assessment and Plan: No problem-specific Assessment & Plan notes found for this encounter. Overall cardiac status -no indication for cardiac testing at this time Blood pressure -high today; she is not on any medication -continued surveillance -counseled on diet and physical activity Lipids 02/20/21 Total cholesterol 314 LDL 195 HDL 81 TG 192 10/05/21 Total cholesterol 412 LDL 296 HDL 93 TG 118 11/22/21 total cholesterol 273 LDL 151 HDL 75 TG 234 Since August she is taking the nexletol and ezetimibe --about twice a week. She is not taking the vascepa ?? Plan she will take nexletol (Bempedoic Acid) and ezetimibe daily, hold the vascepa (I am not sure what her baseline Triglycerides are and she may need medication for this) ?? Have fasting blood tests in about 6 weeks. These will be at [facility] 01/22/22 ADDENDUM 01/17/22 apoB 89Lp(a) 19.8 (ULN < 75) Total cholesterol 212 LDL 115 HDL 59 TG 190 Time spent for this clinic appointment on the date of service includes: 25 minutes review of her chart and previous lipid evaluation and recommendations; 30 minutes [id number] and 10 minutes coordination of care 1) [id number] counseling as noted above 2) reviewing past medical records, cardiac testing, results of laboratory testing 3) coordinating care with other physicians and allied health care providers Delfina Santiago MD, Vonnie, FACC, FNLA Attending Sales And Operations Trainee Sports Cardiology Program Preventive Cardiology Lipid Clinic Advanced Hypertension Clinic documented in this encounter Plan of Treatment Upcoming Encounters Date Type Department Care Team (Late st Contact Info) Description 03/13/2024 9:45 AM EDT Office Visit D[facility] at [facility] [address] [facility] [address] [place] [phone] Emiliano Salinas MD [address], [place] [address] documented as of this encounter Results * Apolipoprotein B (02/16/2022 11:50 AM EDT) Pathologist [facility] Apolipoprotein B (OCTOBER) 84 mg/dL [facility] Comment: REFERENCE VALUE Desirable: <90 Above Desirable: 90-99 Borderline high: 100-119 High: 120-139 Very high: > or = 140 Test Performed by: [address] [address] Manager Membership: Kyle Michel M.D. Ph.D.; CLIA# [id number] Blood 02/16/2022 11:5 0 AM EDT 02/16/2022 3:50 PM EDT Narrative Resulting Agency Comment Spec In Lab Delfina Santiago MD LAB SEND OUT ORDERAB LES [facility] [place] [address] * Lipoprotein A (02/16/2022 11:50 AM EDT) Lipoprotein(A) ( <75 nmol/L [facility] Comment: ADDITIONAL INFORMATION Please notice that Lp(a) values are reported in molar units (nmol/L). ??These units are recommended by professional society guidelines and expert opinion statements. ??Measured results and risk thresholds are higher than those generated using mass units (mg/dL). Cardiovascular risk increases starting at 75 nmol/L. Lp(a) >=125 nmol/L is considered a risk enhancing factor by the [place] [employer]. This test has been modified from the cruise counselor's instructions. Its performance characteristics were determined by [facility] in a manner consistent with CLIA requirements. This test has not been cleared or approved by the U.S. Food and Drug Administration. Test Performed by: [facility] - [address] [address] Manager Membership: Kyle Michel M.D. Ph.D.; CLIA# [id number] Blood 02/16/2022 11:5 0 AM EDT 02/16/2022 3:50 PM EDT Narrative Resulting Agency Comment Spec In Lab Delfina Santiago MD LAB SEND OUT ORDERAB LES [facility] [place] [address] documented in this encounter Visit Diagnoses Diagnosis Familial hypercholesterolemia Pure hypercholesterolemia documented in this encounter Care Teams Procurement Professional Logistics Relationship Specialty Start Date End Date Juan Smiht MD [address] [place] [phone] PCP - General Family Medicine 10/12/21 01/25/22 documented as of this encounter
--- OUTSIDE RECORDS SUMMARY | 2024-02-15 13:16 | XMS_ITS | Encounter Summary ---
[place] [address] Care Team Providers Care Sand Bobber Name Role Phone Juan Smith MD Primary Care Provider [phone] Reason for Visit * Reason Onset Date Comments Questions 06/15/2019 New Safe Deposit Clerk in [place], [place] Encounter Details Date Type Department Care Team (Late st Contact [facility]) Description 06/15/2019 Telephone Cardiology at [address] [phone] Rere Stock, RN Questions (New Safe Deposit Clerk in [place], [place]) Social History Tobacco Use Types Packs/Day Years [...] Telephone Encounter - Rere Stock RN - 06/15/2019 12:01 PM EST Pt calling to ask if she should see the new Safe Deposit Clerk in [place], [place]: Dr Álvaro Sanchez. Pt encouraged to keep her 06/22/19 appt to establish care with the local knocker out as she had been seeing the previous knocker out. She will Keep Dr Montalvo for her lipid management. Pt verbalized good understanding of the current POC. documented in this encounter Plan of Treatment Upcoming Encounters Date Type Department Care Team (Late st Contact Info) Description 03/13/2024 9:45 AM EDT Office Visit Dermatology at [place] [address] [place] [address] Emiliano Salinas MD [address], [place] [address] documented as of this encounter Visit Diagnoses Not on filedocumented in this encounter Care Teams Sand Bobber Relationship Specialty Start Date End Date Juan Smith MD [address] [place] [address] PCP - General Family Medicine 05/10/16 09/02/21 documented as of this encounter
--- OUTSIDE RECORDS SUMMARY | 2024-02-15 13:16 | XMS_ITS | Encounter Summary ---
Author Organization [facility] Address [facility] [place] [address] Care Team Providers Care Pediatric Medical Assistant Name Role Phone Mary Altamirano MD Primary Care Provider Encounter Details Date Type Department Care Team (Latest Contact Info) Description 04/06/2022 11:00 AM EDT TH Visit (TeleHealth) Cardiology at [address] [phone] [facility] [place] [address] Nutritional counseling Social History Tobacco Use Types [...] Progress Notes * Derick Acosta RD - 04/06/2022 11:00 AM EDT Patient Not Seen. documented in this encounter Plan of Treatment Upcoming Encounters Date Type Department Care Team (Late st Contact Info) Description 03/13/2024 9:45 AM EDT Office Visit Dermatology at [place] [address] [facility] [place] [address] Emiliano Salinas MD [address], BAKARI Bhat[place] [address] documented as of this encounter Visit Diagnoses Diagnosis Nutritional counseling documented in this encounter Care Teams Pediatric Medical Assistant Relationship Specialty Start Date End Date Mary Altamirano MD PCP - General Family Medicine 01/26/22 08/26/22 documented as of this encounter
--- OUTSIDE RECORDS SUMMARY | 2024-02-15 13:16 | XMS_ITS | Encounter Summary ---
Author Organization [facility] [place] [address] Care Team Providers Care Track Helper Name Role Phone Mary Altamirano MD Primary Care Provider [phone] Encounter Details Date Type Department Care Team (Latest Contact Info) Description 02/16/2022 11:20 AM EDT Laboratory Appointment Lab at [facility] [address] [place] [address] Familial hypercholesterolemi a; THERESA (obstructive sleep apnea) [...] 9:45 AM EDT Office Visit Dermatology at [address] [place] [phone] Emiliano Salinas MD [address] [facility], [place] [address] documented as of this encounter Procedures Procedure Name Priority Date/Time Associated Diagnosis Comments HC PCH APOLIPO PROTEIN B Routine 02/16/2022 11:51 AM EDT Familial hypercholesterolemia THERESA (obstructive sleep apnea) HC URIC ACID, SERUM Routine 02/16/2022 11:51 AM EDT Familial hypercholesterolemia HC PCH APOLIPO PROTEIN B Routine 02/16/2022 11:50 AM EDT Familial hypercholesterolemia HC PCH LIPOPROTEIN A Routine 02/16/2022 11:50 AM EDT Familial hypercholesterolemia documented in this encounter Results * Uric acid (02/16/2022 11:51 AM EDT) Uric Acid 5.4 2.5 - 6.5 mg/dL [facility] Blood 02/16/2022 11:5 1 AM EDT 02/16/2022 12:02 PM EDT Narrative Resulting Agency Comment Spec In Lab Tory Montalvo MD CHEMISTRY ORDERABLES [facility] [place] [address] * Apolipoprotein B (02/16/2022 11:51 AM EDT) Apolipoprotein B (OCTOBER) 85 mg/dL [facility] Comment: REFERENCE VALUE Desirable: <90 Above Desirable: 90-99 Borderline high: 100-119 High: 120-139 Very high: > or = 140 Test Performed by: [address] [address] Network Relay Tester: Kyle Michel M.D. Ph.D.; CLIA# [id number] Blood 02/16/2022 11:5 1 AM EDT 02/16/2022 3:50 PM EDT Narrative Resulting Agency Comment Spec In Lab Delfina Santiago MD LAB SEND OUT ORDERAB LES Performing Organization Address [facility] de Phone Number [facility] [place] [address] * Lipoprotein A (02/16/2022 11:50 AM EDT) Lipoprotein(A) (OCTOBER) 12 <75 nmol/L [facility] Comment: ADDITIONAL INFORMATION Please notice that Lp(a) values are reported in molar units (nmol/L). ??These units are recommended by professional society guidelines and expert opinion statements. ??Measured results and risk thresholds are higher than those generated using mass units (mg/dL). Cardiovascular risk increases starting at 75 nmol/L. Lp(a) >=125 nmol/L is considered a risk enhancing factor by the [place] [employer]. This test has been modified from the tiler's assistant's instructions. Its performance characteristics were determined by [facility] in a manner consistent with CLIA requirements. This test has not been cleared or approved by the U.S. Food and Drug Administration. Test Performed by: [address] [address] Network Relay Tester: Kyle Michel M.D. Ph.D.; CLIA# [id number] Blood 02/16/2022 11:5 0 AM EDT 02/16/2022 3:50 PM EDT Narrative Resulting Agency Comment Spec In Lab Delfina Santiago MD LAB SEND OUT ORDERAB LES Performing Organization Address [facility] Co de Phone Number [facility] [place] [address] * Apolipoprotein B (02/16/2022 11:50 AM EDT) Apolipoprotein B (OCTOBER) 84 mg/dL [facility] Comment: REFERENCE VALUE Desirable: <90 Above Desirable: 90-99 Borderline high: 100-119 High: 120-139 Very high: > or = 140 Test Performed by: [facility] - [address] [address] Network Relay Tester: Kyle Michel M.D. Ph.D.; CLIA# [id number] Blood 02/16/2022 11:5 0 AM EDT 02/16/2022 3:50 PM EDT Narrative Resulting Agency Comment Spec In Lab Delfina Santiago MD LAB SEND OUT ORDERAB LES Performing Organization Address City/State/[facility] Co de Phone Number [facility] [place] [address] documented in this encounter Visit Diagnoses Diagnosis Familial hypercholesterolemia Pure hypercholesterolemia THERESA (obstructive sleep apnea) Obstructive sleep apnea (adult) (pediatric) documented in this encounter Care Teams Track Helper Relationship Specialty Start Date End Date Mary Altamirano MD PCP - General Family Medicine 01/26/22 08/26/22 documented as of this encounter
--- OUTSIDE RECORDS SUMMARY | 2024-02-15 13:16 | XMS_ITS | Encounter Summary ---
Author Organization [facility] [place] [address] Care Team Providers Care Middleware Architect Name Role Phone Mary Altamirano MD Primary Care Provider [phone] Encounter Details Date Type Department Care Team (Late st Contact Info) Description 04/05/2022 11:20 AM EDT Office Visit Cardiology at [address] [place] [phone] Delfina Santiago MD [facility] [place] [address] Familial hypercholesterolemia; THERESA (obstructive sleep apnea) Social History Tobacco [...] Sign Reading Time Taken Comments Blood Pressure 145/62 04/05/2022 10:51 AM EDT Pulse 68 04/05/2022 10:51 AM EDT Temperature - - Respiratory Rate - - Oxygen Saturation 99% 04/05/2022 10: 51 AM EDT Inhaled Oxygen Concentration - - Weight 74.4 kg (164 lb) 04/05/2022 10:5 1 AM EDT 159.0 lb at home Height 161.3 cm (5' 3.5) 04/05/2022 10 :51 AM EDT Body Mass Index 28.6 04/05/2022 10:51 AM EDT documented in this encounter Patient Instructions * Patient Instructions* Delfina Santiago MD - 04/05/2022 11:20 AM EDT We are going to have a trial of Niaspan You may have some flushing feeling, this will brief Take this before you go to bed For one week, take one table a night (750 mg) Then start taking two tablets a night Have fasting blood tests in about 7 weeks See me in about two months documented in this encounter Progress Notes * Delfina Santiago MD - 04/05/2022 11:20 AM EDT CARDIOLOGY OUTPATIENT CLINIC NOTE PRIMARY CARE PROVIDER: Mary Campbell MD REFERRING PROVIDER: No ref. provider found Patient ID: Yessenia Luong is a 72 y.o. female. HPI: 04/05/22 8 Last appointment Former patient of Dr. Tory Montalvo Familial Hypercholesterolemia, no history of heart disease, no diabetes She has not tolerated statins but has very high baseline LDL cholesterol. She had symptoms with medications (cardiac and otherwise) but was found to have Lyme Disease which may have been causing symptoms. 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 ??She was in 2002 and has had a significant other for many years. ??Her significant other (Yoshalom Peterson) lives in [place].?She has??5??children and 3 biologic and 8 step??grandchildren. [...] Outpatient Medications Medication Sig Dispense Refill ??? escitalopram oxalate (LEXAPRO) 5 mg Tablet [...] azelastine (ASTELIN) 137 mcg (0.1 %) Aerosol, Seth 0 ??? PROVENTIL HFA 90 mcg/actuation HFA [...] Once daily ??? Mometasone (NASONEX) 50 mcg/Actuation [place] 2 Seth(s) each nostril, Nasal, Twice daily No current [...] Narrative Retired, previously worked as high school business teacher. 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 [...] the past 24 hrs: Pulse BP SpO2 04/05/22 1051 68 145/62 99 % No results found for this or [...] of nexletol (Bempedoic Acid) and ezetimibe daily ?? 01/17/22 apoB 89Lp(a) 19.8 (ULN < 75) Total cholesterol 212 LDL 115 HDL 59 TG 190 At goal ?? 02/16/22 ApoB 84 Lp(a) 12 ?? Mar 26 2022 Total cholesterol 269 LDL 158 HDL 70 TG 190 On the half doses noted above. 04/05/22 she endorses that: -She tried both PCSK9i and my body went into complete spasms and she stopped this. -On February 20 she (on her own) she took half of her eztimibe and nexlatol to see if symptoms got better. They did not and she stopped both medications -Note that she states the nexlatol may be making her anemic as she read online that this was a side effect. She asks that I order iron tests (she had reached out to her PCP but says it was very hard to get in touch with her PCP). I explain that anemia would not be an expected side effect but manyconditions are listed if they occur at the same time as taking the medication. I also discussed that it would be better to have her PCP do the evaluation for anemia as I would not be able to best diagnose and treat this. She expressed understanding with this plan and I have reached out to her PCP to follow up. Plan: We discussed options for treatment and she will have a trial of niacin. This is a derivative of VitB and she feels that this would be a reasonable choice for her. I explained that there could also be side effects (flushing--but this means that it is working, headache, and that we would want to monitor liver function tests). Blood tests at [facility] in about 6 weeks Time spent for this clinic appointment on the date of service includes: 25 minutes review of her chart and previous lipid evaluation and recommendations; 30 minutes nlde-qs-yoxz and 10 minutes coordination of care 1) egok-sj-zmkc counseling as noted above 2) reviewing past medical records, cardiac testing, results of laboratory testing 3) coordinating care with other physicians and allied health care providers Delfina Santiago MD, Vonnie, FACC, FNLA Attending Biometrics Technician Sports Cardiology Program Preventive Cardiology Lipid Clinic Advanced Hypertension Clinic documented in this encounter Plan of Treatment Upcoming Encounters Date Type Department Care Team (Late st Contact Info) Description 03/13/2024 9:45 AM EDT Office Visit Dermatology at [place] [address] [facility] [place] [address] Emiliano Salinas MD [address], [place] [address] documented as of this encounter Results * Hepatic Function Panel (08/01/2022 7:52 AM EST) [facility] Protein, Total 7.1 6.1 - 8.0 g/dL [facility] Albumin 4.5 3.2 - 5.2 g/dL [facility] Aspartate Aminotransferase 19 0 - 30 unit/L [facility] Alanine Aminotransferase 18 0 - 30 unit/L [facility] Alkaline Phosphatase 75 35 - 105 unit/L [facility] Bilirubin, Total 0.4 0.2 - 1.3 mg/dL [facility] Bilirubin, Direct 0.1 0.0 - 0.3 mg/dL [facility] Blood 08/01/2022 7:52 AM EST 08/01/2022 8:07 AM EST Narrative Resulting Agency Comment Spec In Lab Delfina Santiago MD CHEMISTRY ORDERABLES [facility] [place] [place] [address] * (ABNORMAL) Apolipoprotein B (08/01/2022 7:52 AM EST) [facility] Apolipoprotein B (OCTOBER) 169(H) mg/dL [facility] Comment: REFERENCE VALUE Desirable: <90 Above Desirable: 90-99 Borderline high: 100-119 High: 120-139 Very high: > or = 140 Test Performed by: [facility] - [address] [address] Sat Act Instructor: Kyle Michel M.D. Ph.D.; CLIA# [id number] Blood 08/01/2022 7:52 AM EST 08/01/2022 12:39 PM EST Narrative Resulting Agency Comment Spec In Lab Delfina Santiago MD LAB SEND OUT ORDERAB LES Performing Organization Address City/State/[facility] Co de Phone Number [facility] [place] [address] * Lipid Panel (Reflex Direct LDL) (08/01/2022 7:52 AM EST) [facility] Cholesterol, Total 366 mg/dL [facility] Comment: Lower Risk: <200 mg/dL Average Risk: 200-239 mg/dL Higher Risk: >cb=838 mg/dL Triglyceride 195 mg/dL [facility] Comment: Average Risk/Lower Risk: <150 mg/dL Borderline High Risk: 150-199 mg/dL High Risk: 200-499 mg/dL Very High Risk: >rv=669 mg/dL HDL Cholesterol 91 mg/dL [facility] Comment: Males: ?? Higher Risk: <40 mg/dL Females: ?? Higher Risk: <50 mg/dL LDL Cholesterol 236 mg/dL [facility] Comment: Lowest Risk: <100 mg/dL Lower Risk: 100-129 mg/dL Borderline High Risk: 130-159 mg/dL High Risk: 160-189 mg/dL Very High Risk: >hb=650 mg/dL Cholesterol/HDL Ratio 4.0 ratio [facility] Lipid Interpretation See Note [facility] Comment: Lipid management should be guided by a patient? s ASCVD risk, goals and preferences. ACC/AHA Guidelines recommend high intensity statin if clinical ASCVD or LDL greater than or equal to 190 mg/dL. http://PersonSpot.com/NSO-XMA-Huewpcxof Adults aged 40-75 with LDL 70-189 mg/dL should have their 10 year ASCVD risk estimated with the ACC/AHA ASCVD risk drugless doctor http://tools.acc.org/VQNGW-Fskx-Fjafdzusg/ Statin should be discussed if risk greater [...] Santiago MD CHEMISTRY ORDERABLES Performing Organization Address City/State/[facility] Co de Phone Number [facility] [place] [address] documented in this encounter Visit Diagnoses Diagnosis Familial hypercholesterolemia Pure hypercholesterolemia THERESA (obstructive sleep apnea) Obstructive sleep apnea (adult) (pediatric) documented in this encounter Care Teams Middleware Architect Relationship Specialty Start Date End Date Mary Altamirano MD PCP - General Family Medicine 01/26/22 08/26/22 documented as of this encounter
--- OUTSIDE RECORDS SUMMARY | 2024-02-15 13:16 | XMS_ITS | Encounter Summary ---
Author Organization [facility] [place] [address] Care Team Providers Care Heel Attacher Wood Name Role Phone Mary Altamirano MD Primary Care Provider [phone] Encounter Details Date Type Department Care Team (Latest Contact Info) Description 04/10/2022 Travel Social History Tobacco Use Types Packs/Day [...] 9:45 AM EDT Office Visit Dermatology at [place] [address] [place] [phone] Emiliano Salinas MD [address], [place] [address] documented as of this encounter Visit Diagnoses Not on filedocumented in this encounter Care Teams Heel Attacher Wood Relationship Specialty Start Date End Date Mary Altamirano MD PCP - General Family Medicine 01/26/22 08/26/22 documented as of this encounter
--- OUTSIDE RECORDS SUMMARY | 2024-02-15 13:16 | XMS_ITS | Encounter Summary ---
[place] [address] Care Team Providers Care Real Estate Economist Name Role Phone Juan Smith MD Primary Care Provider [phone] Reason for Visit * Reason Onset Date Comments Questions 04/04/2021 cholesterol med restart Encounter Details Date Type Department Care Team (Late st Contact Info) Description 04/04/2021 Telephone Cardiology at [address] [phone] Rere Stock, RN Questions (cholesterol med restart) Social History Tobacco Use Types Packs/Day Years [...] Telephone Encounter - Rere Stock RN - 04/04/2021 6:36 PM EDT Pt left VM on the nurse triage line stating that she has not restarted the meds as requested by Dr Montalvo. She was diagnosed with Lymes Dz and wanted to wait until she had gotten past that. She feels that the April appt is too soon and wants to know what Dr Montalvo thinks and when she should come in to be seen? Questions forwarded to Dr Montalvo. Message left for the pt to call this proposal lead writer to see if her symptoms have resolved and when she is going to restart her meds. Awaiting a call back documented in this encounter Plan of Treatment Upcoming Encounters Date Type Department Care Team (Late st Contact Info) Description 03/13/2024 9:45 AM EDT Office Visit Dermatology at [place] [address] [place] [address] Emiliano Salinas MD [address], [place] [address] documented as of this encounter Visit Diagnoses Not on filedocumented in this encounter Care Teams Real Estate Economist Relationship Specialty Start Date End Date Juan Smith MD [address] [place] [address] PCP - General Family Medicine 05/10/16 09/02/21 documented as of this encounter
--- OUTSIDE RECORDS SUMMARY | 2024-02-15 13:16 | XMS_ITS | Encounter Summary ---
Author Organization [facility] [place] [address] Care Team Providers Care Juvenile Court Liaison Name Role Phone Mary Altamirano MD Primary Care Provider [phone] Encounter Details Date Type Department Care Team (Late st Contact Info) Description 01/29/2022 1:20 PM EDT Office Visit Cardiology at [address] [place] [phone] Delfina Santiago MD [facility] [place] [address] Familial hypercholesterolemia; THERESA (obstructive sleep apnea) Social [...] Sign Reading Time Taken Comments Blood Pressure 161/70 01/29/2022 1:24 PM EDT Pulse 76 01/29/2022 1:24 PM EDT Temperature - - Respiratory Rate - - Oxygen Saturation 96% 01/29/2022 1:24 PM EDT Inhaled Oxygen Concentration - - Weight 72.6 kg (160 lb) 01/29/2022 1:24 PM EDT Height 161.3 cm (5' 3.5) 01/29/2022 1:24 PM EDT Body Mass Index 27.9 01/29/2022 1:24 PM EDT documented in this encounter Patient Instructions * Patient Instructions* Delfina Santiago MD - 01/29/2022 1:20 PM EDT 01/17/22 apoB 89Lp(a) 19.8 (ULN < 75) Total cholesterol 212 LDL 115 HDL 59 TG 190 Your LDL should be at least < 130 and optimally lower which it is Your ApoB should be < 90 and it is Information on lipids When you get your [...] are generally treated with life style changes. Apolipoprotein B (ApoB): you may also see a result for this on your lab sheet. This is another measure of the ???bad?? cholesterol and is felt to be a very accurate way to measure how much you have Lipoprotein(a) (Lp(a)): This is another lipid particle that is associated with risk for cardiovascular disease. It is heavily influenced by genetics (your level is determined from ). At present we do not have specific medications to lower Lp(a) but when it is elevated we try to get the LDL cholesterol level very low documented in this encounter Progress Notes * Delfina Santiago MD - 01/29/2022 1:20 PM EDT CARDIOLOGY OUTPATIENT CLINIC NOTE PRIMARY CARE PROVIDER: Juan Smith MD REFERRING PROVIDER: No ref. provider found Patient ID: Yessenia Luong is a 71 y.o. female. HPI: 01/29/22 Last appointment 11/24/[address] Tory Montalvo Familial Hypercholesterolemia, no history of heart disease, no diabetes She has not tolerated statins but has very high baseline LDL cholesterol. She had symptoms with medications (cardiac and otherwise) but was found to have Lyme Disease which may have been causing symptoms. 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 ??She was in 2002 and has had a significant other for many years. ??Her significant other (Deacon Peterson) lives in [place].?She has??5??children and 3 biologic and 8 step??grandchildren. [...] azelastine (ASTELIN) 137 mcg (0.1 %) Aerosol, [place] 0 ??? PROVENTIL HFA 90 mcg/actuation HFA [...] Once daily ??? Mometasone (NASONEX) 50 mcg/Actuation [place] 2 [place](s) each nostril, Nasal, Twice daily No current [...] Not on file Occupational History ??? 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 Social [...] the past 24 hrs: Pulse BP SpO2 01/29/22 1324 76 161/70 96 % No results found for this or [...] about 6 weeks. These will be at [facility] 01/17/22 apoB 89Lp(a) 19.8 (ULN < 75) Total cholesterol 212 LDL 115 HDL 59 TG 190 At goal for her Note: she thinks that the bempedoic acid is making her morrissey but she is on lexapro for this. She wonders if stopping the bempedoic acid or taking it every other day would lessen these side effects.I shared with her that the bempedoic acid is meant to be taken every day. She has familial hypercholesterolemia and remains at high risk for ASCVD. She will reach out to her PCP to discuss and then we can review again. Note that she did not tolerate either of the PCSK9 inhibitor. She had tried statins years ago, she may consider retrial. She asks if she can have a trial of ezetimibe every other day. While this medication also is daily, it is much lower potency than the bempedoic acid and it is reasonable for her to have a trial on this, every other day. Time spent for this clinic appointment on the date of service includes: 25 minutes review of her chart and previous lipid evaluation and recommendations; 30 minutes cled-an-zfxh and 10 minutes coordination of care 1) zces-kz-uzko counseling as noted above 2) reviewing past medical records, cardiac testing, results of laboratory testing 3) coordinating care with other physicians and allied health care providers Delfina Santiago MD, Vonnie, FACC, FNLA Attending Licensed Real Estate Broker Sports Cardiology Program Preventive Cardiology Lipid Clinic Advanced Hypertension Clinic documented in this encounter Plan of Treatment Upcoming Encounters Date Type Department Care Team (Late st Contact Info) Description 03/13/2024 9:45 AM EDT Office Visit Dermatology at [place] [address] [place] [phone] Emiliano Salinas MD [address], [place] [address] documented as of this encounter Results * Apolipoprotein B (02/16/2022 11:51 AM EDT) Apolipoprotein B (OCTOBER) 85 mg/dL [facility] Comment: REFERENCE VALUE Desirable: <90 Above Desirable: 90-99 Borderline high: 100-119 High: 120-139 Very high: > or = 140 Test Performed by: [place] [address] Retail Sales Clerk: Kyle Michel M.D. Ph.D.; CLIA# [id number] Blood 02/16/2022 11:5 1 AM EDT 02/16/2022 3:50 PM EDT Narrative Resulting Agency Comment Spec In Lab Delfina Santiago MD LAB SEND OUT ORDERAB LES Performing Organization Address City/State/[facility] Co de Phone Number [facility] [place] [address] documented in this encounter Visit Diagnoses Diagnosis Familial hypercholesterolemia Pure hypercholesterolemia THERESA (obstructive sleep apnea) Obstructive sleep apnea (adult) (pediatric) documented in this encounter Care Teams Juvenile Court Liaison Relationship Specialty Start Date End Date Mary Altamirano MD PCP - General Family Medicine 01/26/22 08/26/22 documented as of this encounter
--- OUTSIDE RECORDS SUMMARY | 2024-02-15 13:16 | XMS_ITS | Encounter Summary ---
[place] [address] Care Team Providers Care Intensive Care Medicine Specialist Name Role Phone Juan Smith MD Primary Care Provider [phone] Encounter Details Date Type Department Care Team (Latest Contact Info) Description 08/12/2020 2:20 PM EST TH Visit (TeleHealth) Cardiology at [address] [phone] Timur Chambers MD Familial hypercholesterolemia Social History Tobacco Use Types [...] as of this encounter Progress Notes * Timur Chambers MD - 08/12/2020 2:20 PM EST [facility] Lipid Clinic-Follow Up Visit via telehealth Yessenia understands that she will be billed for this visit as if it were an in person visit ID/PM Yessenia is a 70 y.o. followed by Juan Smith MD with the following problems: Patient Active Problem List Diagnosis Code ??? [...] reduction Z98.890 ??? 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 ??She was in 2002 and has had a significant other for many years. ??Boyfriend (Deacon Peterson) lives in [place].?She has??5??children??(2 biologic and 2 step) 3 biologic and 8 step??grandchildren. ??She enjoys travel, walking, kayaking, reading, and gardening friends and family ?? Present Illness: Yessenia S Ag??is seen at the request of Juan Smith MD??for??follow-up??management of dyslipidemia, specifically??a diagnosis of familial hypercholesterolemia and the inability totolerate statins or PCSK9 inhibitors. On ezetimibe, bempedoic acid (Nexletol), and Vasepa her labs was 75 mg/dL drawn.. She subsequently stopped ezetimibe due to muscle and joint pain. She presents today for assessment of her current lipid values ROS General: sometimes feels spacey, wonders if the medications are causing trouble sleeping Cardiac: no chest issues MSK: no major issues Medications Current Outpatient Medications Medication Sig Dispense Refill ??? finasteride (Proscar) 5 mg Tablet TAKE 1 TABLET BY MOUTH DAILY 30 tablet 5 ??? ezetimibe (Zetia) 10 mg Tablet Take 1 tablet by mouth daily. 90 tablet 3 ??? bempedoic acid (Nexletol) 180 mg Tablet Take 180 mg by mouth daily. 90 tablet 3 ??? icosapent ethyL (Vascepa) 1 gram Capsule Take 2 capsules by mouth 2 times daily. 360 capsule 3 ??? atorvastatin (LIPITOR) 10 mg Tablet Take [...] azelastine (ASTELIN) 137 mcg (0.1 %) Aerosol, [place] 0 ??? PROVENTIL HFA 90 mcg/actuation HFA [...] Once daily ??? Mometasone (NASONEX) 50 mcg/Actuation [place] 2 [place](s) each nostril, Nasal, Twice daily No current facility-administered medications for this visit. Allergies Bee pollen, Morphine, Sulfa (sulfonamide antibiotics), and Voltaren [diclofenac sodium] Physical Exam not performed telehealth Labs Total cholesterol 232 mg/dL Triglycerides 141 mg/dL HDL cholesterol 78 mg/dL LDL cholesterol 126 mg/dL Assessment While Yessenia's LDL was significantly better than her untreated baseline of 219 mg/dL, it is nearly twice as high as it was when she was on ezetimibe in combination with Vascepa and Nexletol. Today we discussed various lipid-lowering options and ultimately agreed she would add back ezetimibe 5 mg (half a tablet) every other day. If she tolerates this she will try to go up to full tablet every otherday. She was encouraged to continue both the Vascepa and Nexletol unchanged Plan ?? Medication changes: Resume ezetimibe 5 mg every other day ?? Investigations: Labs and a visit in 3 months ?? Counseling: I explained my impression and answered all Yessenia's questions. Follow up 3 months TIMUR CHAMBERS MD 08/12/2020 CC: Juan Smith MD documented in this encounter Plan of Treatment Upcoming Encounters Date Type Department Care Team (Late st Contact Info) Description 03/13/2024 9:45 AM EDT Office Visit Dermatology at [place] [address] [place] [address] Emiliano Salinas MD [address], [place] [address] documented as of this encounter Visit Diagnoses Diagnosis Familial hypercholesterolemia Pure hypercholesterolemia documented in this encounter Care Teams Intensive Care Medicine Specialist Relationship Specialty Start Date End Date Juan Smith MD [facility] [place] [address] PCP - General Family Medicine 05/10/16 09/02/21 documented as of this encounter
--- OUTSIDE RECORDS SUMMARY | 2024-02-15 13:16 | XMS_ITS | Encounter Summary ---
Author Organization [facility] [place] [place] [address] Care Team Providers Care Auto Body Customizer Name Role Phone Mary Altamirano MD Primary Care Provider [phone] Encounter Details Date Type Department Care Team (Latest Contact Info) Description 04/23/2022 Travel Social History Tobacco Use Types Packs/Day [...] AM EDT Office Visit Dermatology at [place] [address] [facility] [place] [phone] Emiliano Salinas MD [address], [place] [address] documented as of this encounter Visit Diagnoses Not on filedocumented in this encounter Care Teams Auto Body Customizer Relationship Specialty Start Date End Date Mary Altamirano MD PCP - General Family Medicine 01/26/22 08/26/22 documented as of this encounter
--- OUTSIDE RECORDS SUMMARY | 2024-02-15 13:16 | XMS_ITS | Encounter Summary ---
[place] [address] Care Team Providers Care Marine Structural Designer Name Role Phone Juan Smith MD Primary Care Provider [phone] Encounter Details Date Type Department Care Team (Latest Contact Info) Description 08/31/2020 Orders Only Cardiology at [address] [phone] Tory Montalvo MD Familial hypercholesterolemia Social History Tobacco Use [...] 9:45 AM EDT Office Visit Dermatology at [place] [address] [place] [phone] Emiliano Salinas MD [address], BAKARI Bhatt DERMATOLOGY [place], [place] [phone] documented as of this encounter Results * Uric acid (02/16/2022 11:51 AM EDT) Uric Acid 5.4 2.5 - 6.5 mg/dL [facility] Blood 02/16/2022 11:5 1 AM EDT 02/16/2022 12:02 PM EDT Narrative Resulting Agency Comment Spec In Lab Tory Montalvo MD CHEMISTRY ORDERABLES Performing Organization Address City/State/[facility] Co de Phone Number [facility] [place] [address] documented in this encounter Visit Diagnoses Diagnosis Familial hypercholesterolemia Pure hypercholesterolemia documented in this encounter Care Teams Marine Structural Designer Relationship Specialty Start Date End Date Juan Smith MD [address] [place] [address] PCP - General Family Medicine 05/10/16 09/02/21 documented as of this encounter
--- OUTSIDE RECORDS SUMMARY | 2024-02-15 13:16 | XMS_ITS | Encounter Summary ---
[place] [address] Care Team Providers Care Operations Technician Name Role Phone Mary Altamirano MD Primary Care Provider [phone] Reason for Visit * Reason Onset Date Comments Medication Refill 10/09/2021 Encounter Details Date Type Department Care Team (Late Contact [facility]) Description 10/09/2021 Telephone Cardiology at [address] [phone] Ana Horan, spin tank tender Refill Social History Tobacco Use Types Packs/Day [...] Telephone Encounter - Ana Horan RN - 10/09/2021 9:11 AM EDT VM on Saturday after [address] Santiago fill her Nexital and Zetia that she has restarted- she reports she was a patient of Dr. Montalvo Scripts to go to [facility] in [facility]. Chart reviewed. documented in this encounter Plan of Treatment Upcoming Encounters Date Type Department Care Team (Late st Contact Info) Description 03/13/2024 9:45 AM EDT Office Visit Dermatology at [place] [address] [place] [address] Emiliano Salinas MD [address], [place] [address] documented as of this encounter Visit Diagnoses Not on filedocumented in this encounter Care Teams Operations Technician Relationship Specialty Start Date End Date Mary Altamirano MD PCP - General Family Medicine 09/03/21 10/11/21 documented as of this encounter
--- OUTSIDE RECORDS SUMMARY | 2024-02-15 13:16 | XMS_ITS | Encounter Summary ---
[place] [address] Care Team Providers Care Ekg Monitor Name Role Phone Juan Smith MD Primary Care Provider [phone] Reason for Visit * Reason Onset Date Comments Questions 10/11/2021 F/U with new pro vider Encounter Details Date Type Department Care Team (Late st Contact Info) Description 10/11/2021 Telephone Cardiology at [address] [phone] Rere Stock, RN Questions (F/U with new provider) Social History Tobacco Use Types Packs/Day Years [...] Miscellaneous Notes * Telephone Encounter - Dariela Manzano RN - 10/20/2021 10:22 AM EDT Lab order for lipid panel sent to patient home address : 10/12 Call from patient 10/20 -has not received above. Lab order sent again -home address confirmed with pt. * Telephone Encounter - Rere Stock RN - 10/11/2021 1:00 PM EDT Pt returning this senior technical writer's call and left the following message: she has gotten the Nexletol and isall set with that but has questions for her appointment with Dr Santiago on 11/24/21. She will get labs done prior to the appointment with Dr Santiago is asking that she get a Uric acid,anemia panel, check iron (she is feeling tired and wants to see what is going on with that), with the fasting lipid panel. She would like Dr Montalov to order the labs and send the orders to [facility] so she can get done at which one is easiest to get to. Call returned to the home number listed. The following message left for the pt: Since her appointment is with Dr Santiago, her request will be sent to her. Advised to contact her PCP to evaluate her anemia. We will mail the lab order to her so she can take this to the facility she would like to get the testing done. Pt to call back with any questions. Request sent to Dr Santiago. documented in this encounter Plan of Treatment Upcoming Encounters Date Type Department Care Team (Late st Contact Info) Description 03/13/2024 9:45 AM EDT Office Visit Dermatology at [place] [address] [place] [address] Emiliano Salinas MD [address], [place] [address] documented as of this encounter Visit Diagnoses Not on filedocumented in this encounter Care Teams Ekg Monitor Relationship Specialty Start Date End [place] [address] PCP - General Family Medicine 10/12/21 01/25/22 documented as of this encounter
--- OUTSIDE RECORDS SUMMARY | 2024-02-15 13:16 | XMS_ITS | Encounter Summary ---
[place] [address] Care Team Providers Care Wireless Development Manager Name Role Phone Juan Smith MD Primary Care Provider [phone] Encounter Details Date Type Department Care Team (Late st Contact Info) Description 12/21/2021 Telephone Cardiology at [address] [phone] Dariela Manzano, RN Social History Tobacco Use Types Packs/Day [...] Telephone Encounter - Dariela Manzano RN - 12/21/2021 11:22 AM EDT Voice message from Ms Luong,state she misplaced contact/site information given to her by Dr Santiago re: BMI and cholesterol. She is also asking for a referral to a environmental engineering intern in [place]. Forward to Dr Santiago documented in this encounter Plan of Treatment Upcoming Encounters Date Type Department Care Team (Late st Contact Info) Description 03/13/2024 9:45 AM EDT Office Visit Dermatology at [place] [address] [place] [address] Emiliano Salinas MD [address], [place] [address] documented as of this encounter Visit Diagnoses Not on filedocumented in this encounter Care Teams Wireless Development Manager Relationship Specialty Start Date End Date Juan Smith MD [address] [place] [address] PCP - General Family Medicine 10/12/21 01/25/22 documented as of this encounter
--- OUTSIDE RECORDS SUMMARY | 2024-02-15 13:16 | XMS_ITS | Encounter Summary ---
Author Organization [facility] [place] [address] Care Team Providers Care Lay Out Carpenter Name Role Phone Juan Smith MD Primary Care Provider [phone] Encounter Details Date Type Department Care Team (Late st Contact Info) Description 04/19/2020 Telephone Cardiology at [address] [phone] Leona Vallejo, RN Social History Tobacco Use Types Packs/Day [...] encounter Miscellaneous Notes * Telephone Encounter - Leona Vallejo, RN - 04/19/2020 5:25 PM EST TC from patient inquiring about a combination pill for 2 of her prescriptions. She reports at her last visit with Dr. Montalvo they discussed a new prescription to take the place of her zetia and Nexletol. Patient reports that she has tolerated these medications well and would like to try the new prescription if ok with Dr. Montalvo. She would like it sent to the [facility] in [facility] if able. She also requests to have her f/u labs in [facility] as well. Will send lab order to [facility] Leona Vallejo wet room supervisor Clinic at [facility] [address] documented in this encounter Plan of Treatment Upcoming Encounters Date Type Department Care Team (Late st Contact Info) Description 03/13/2024 9:45 AM EDT Office Visit Dermatology at [place] [address] [place] [phone] Emiliano Salinas MD [address], [place] [address] documented as of this encounter Visit Diagnoses Diagnosis Familial hypercholesterolemia Pure hypercholesterolemia documented in this encounter Care Teams Lay Out Carpenter Relationship Specialty Start Date End Date Juan Smith MD [address] [place] [address] PCP - General Family Medicine 05/10/16 09/02/21 documented as of this encounter
--- OUTSIDE RECORDS SUMMARY | 2024-02-15 13:16 | XMS_ITS | Encounter Summary ---
[place] [address] Care Team Providers Care Urban And Regional Planner Name Role Phone Juan Smith MD Primary Care Provider Reason for Visit * Diagnostic Test (Routine) - Closed Specialty Diagnoses / Procedures Referred By Contac t Referred To Contact Diagnoses Asymptomatic varicose veins Procedures Venous Valvular Incomp, Bilat Legs Chet Bales, DO [address] [place] [address] [facility] [address] [place] [address] Referral ID Status Reason Start Date Expiration Date V isits Requested Visits Authorized [id number] Closed Specialty Service Requested 10/10/2021 10/10/2022 1 1 Encounter Details Date Type Department Care Team (Late st Contact Info) Description 11/24/2021 10:00 AM EDT Tech [place] [address] Mukund Davis, RVT Asymptomatic varicose veins Social History Tobacco Use Types Packs/Day Years [...] 9:45 AM EDT Office Visit Dermatology at [place] [address] [place] [address] Emiliano Salinas MD [address], [place] [address] documented as of this encounter Procedures Procedure Name Priority Date/Time Associated Diagnosis Comments VENOUS VALVULAR INCOMP, BILAT LEGS Routine 11/24/2021 9:44 AM EDT Asymptomatic varicose veins documented in this encounter Results * Venous Valvular Incomp, Bilat Legs (11/24/2021 9:44 AM EDT) VB Text Report Department: Vascular Surgery Lab Patient: [id number] (SUNNY LUONG) CPT: 77130 Referring Physician: CHET BALES ?? Phone: Indications: ??Leg aches Patient Positioning: ??Reverse Trendelenburg Findings: Right ?Reflux?Diameter (mm) ??Depth (mm) ?? Common Femoral Vein ??Competent ? Femoral Vein ? Competent ? Popliteal ?Competent ? GSV, Near SFJ ?Competent ?5.8 ?11.9 ?? GSV, Proximal Thigh ??Competent ?4.0 ?15.7 ?? GSV, Mid Thigh ? Reflux ? 3.8 ?15.6 ?? GSV, Distal Thigh ?Reflux ? 3.5 ?13.9 ?? GSV, ??Knee ? Reflux ? 3.9 ? 9.8 ?? GSV Prox Calf ?Reflux ? 2.1 ?10.4 ?? SSV ?Competent ? Left ? Reflux?Diameter (mm) ??Depth (mm) ?? Common Femoral Vein ??Reflux ? Femoral Vein ? Competent ? Popliteal ?Competent ? GSV, Near SFJ ?Competent ?7.1 ?12.5 ?? GSV, Proximal Thigh ??Competent ?4.4 ?11.4 ?? GSV, Mid Thigh ? Competent ?1.8 ?17.8 ?? GSV, Distal Thigh ?Competent ?2.5 ?14.8 ?? GSV, ??Knee ? Competent ?2.4 ?10.1 ?? GSV Prox Calf ?Competent ?2.5 ? 7.2 ?? SSV ?Competent ? Interpretation: RIGHT: No evidence of deep venous valvular incompetence or femoral-popliteal deep venous thrombosis. There is reflux in the great saphenous vein >1.0 sec mid thigh to proximal calf consistent with superficial venous valvular incompetence. No evidence of incompetent perforators or varicosities identified. LEFT: There is isolated reflux >1.5 sec in the common femoral vein consistent with deep venous valvular incompetence. No evidence of femoral-popliteal deep venous thrombosis. No evidence of superficial venous valvular incompetence. No evidence of incompetent perforators or varicosities identified. No previous study in our vascular lab database for comparison. Electronically Signed by: VERITO VARGAS on 2021-11-27 07:43:59 AM [facility] VB Text Report End of Report [facility] 11/24/2021 9:44 AM EDT Chet Bales DO VASCULAR ORDERABLES [facility] documented in this encounter Visit Diagnoses Diagnosis Asymptomatic varicose veins documented in this encounter Care Teams Urban And Regional Planner Relationship Specialty Start Date End Date Juan Smith MD [facility] [place] [address] PCP - General Family Medicine 10/12/21 01/25/22 documented as of this encounter
--- OUTSIDE RECORDS SUMMARY | 2024-02-15 13:16 | XMS_ITS | Encounter Summary ---
[place] [address] Care Team Providers Care Computer Graphics Illustrator Name Role Phone Juan Smith MD Primary Care Provider [phone] Reason for Visit * Reason Comments Medication Refill Encounter Details Date Type Department Care Team (Late st Contact Info) Description 05/14/2021 Refill Cardiology at [address] [phone] Tory Montalvo MD Medication Refill Social History [...] 9:45 AM EDT Office Visit Dermatology at [address] [place] [phone] Emiliano Salinas MD [address], [place] [address] documented as of this encounter Visit Diagnoses Diagnosis Familial hypercholesterolemia Pure hypercholesterolemia documented in this encounter Care Teams Computer Graphics Illustrator Relationship Specialty Start Date End Date Juan Smith MD [address] [place] [address] PCP - General Family Medicine 10/12/21 01/25/22 documented as of this encounter
--- OUTSIDE RECORDS SUMMARY | 2024-02-15 13:16 | XMS_ITS | Encounter Summary ---
[place] [address] Care Team Providers Care Loan Approver Name Role Phone Juan Smith MD Primary Care Provider [phone] Encounter Details Date Type Department Care Team (Late st Contact Info) Description 10/08/2019 Orders Only Cardiology at [address] [phone] Tory Montalvo MD Familial hypercholesterolemia; Coronary artery disease, angina presence unspecified, unspecified vessel or lesion type, unspecified whether muckleshoot or transplanted heart Social History Tobacco Use Types Packs/Day Years [...] 9:45 AM EDT Office Visit Dermatology at [place] [address] [place] [phone] Emiliano Salinas MD [address], BAKARI A DERMATOLOGY [place], [place] [phone] documented as of this encounter Visit Diagnoses Diagnosis Familial hypercholesterolemia Pure hypercholesterolemia Coronary artery disease, angina presence unspecified, unspecified vessel or lesion type, unspecified whether muckleshoot or transplanted heart documented in this encounter Care Teams Loan Approver Relationship Specialty Start Date End Date Juan Smith MD [address] [place] [address] PCP - General Family Medicine 05/10/16 09/02/21 documented as of this encounter
--- OUTSIDE RECORDS SUMMARY | 2024-02-15 13:16 | XMS_ITS | Encounter Summary ---
[place] [address] Care Team Providers Care Lead Teacher Name Role Phone Juan Smith MD Primary Care Provider [phone] Reason for Visit * Reason Onset Date Comments Prior Authorization 09/01/2020 Nexlatol Encounter Details Date Type Department Care Team (Late st Contact Info) Description 09/01/2020 Telephone Cardiology at [address] [phone] Rere Stock retail sales associate (Nexlatol) Social History Tobacco Use Types Packs/Day Years [...] Telephone Encounter - Rere Stock RN - 09/02/2020 2:07 PM EDT The following outcome notification received from [facility] Meds: YESSENIA LUONG Gonsales: [id number] - PA - Rx #: [id number] Need help? Call us at Outcome Approvedtoday Your request has been approved DrugNexletol 180MG tablets [facility] Original Claim [id number] Call placed to the [facility] pharmacy with the approval. No answer at the pharmacy. Call placed to pt with the above information. No answer at the home number listed. Message left for the pt to call her [facility] pharmacy to arrange getting her medication refilled. She is to call cardiology with any questions. * Telephone Encounter - Rere Stock RN - 09/02/2020 1:31 PM EDT Checking on the status of the PA requests, this rewriter noted that the request had not been sent to [facility]. Form re-faxed. YESSENIA LUONG (Gonsales: [id number]) Your information has been submitted to [facility] Medicare Part D. [facility] Medicare Part D will review the request and will issue a decision, typically within 1-3 days from your submission. You can check the updated outcome later by reopening this request. If [facility] Medicare Part D has not responded in 1-3 days or if you have any questions about your ePA request, please contact [employer] Part D at [phone]. If you think there may be a problem with your PA request, use our live chat feature at the bottom right. Awaiting a decision. * Telephone Encounter - Rere Stock RN - 09/01/2020 12:52 PM EDT Call placed to pt per Dr Montalvo to see where she is at with starting the Nexlatol. Pt reports that the pharmacy is telling her that they need a PA done. Request received from Cover [employer], form received, completed and e-faxed with a copy of Dr Montalvo's clinic note to [employer] for review. Awaiting the determination. YESSENIA LUONG Gonsales: [id number] - NOMI - Rx #: [id number] Need help? Call us at Status Additional Information Required DrugNexletol 180MG tablets [facility] Medicare Electronic PA Form Original Claim [id number] documented in this encounter Plan of Treatment Upcoming Encounters Date Type Department Care Team (Late st Contact Info) Description 03/13/2024 9:45 AM EDT Office Visit Dermatology at [place] [address] [place] [address] Emiliano Salinas MD [address], [place] [address] documented as of this encounter Visit Diagnoses Not on filedocumented in this encounter Care Teams Lead Teacher Relationship Specialty Start Date End Date Juan Smith MD [facility] [place] [address] PCP - General Family Medicine 05/10/16 09/02/21 documented as of this encounter
--- OUTSIDE RECORDS SUMMARY | 2024-02-15 13:16 | XMS_ITS | Encounter Summary ---
[place] [address] Care Team Providers Care Rolling Mill Plugger Name Role Phone Juan Smith MD Primary Care Provider [phone] Reason for Visit * Reason Comments Medication Refill Encounter Details Date Type Department Care Team (Late st Contact Info) Description 01/18/2021 Refill Cardiology at [address] [phone] Tory Montalvo MD Medication Refill Social History [...] 9:45 AM EDT Office Visit Dermatology at [address] [place] [phone] Emiliano Salinas MD [address], [place] [address] documented as of this encounter Visit Diagnoses Diagnosis Familial hypercholesterolemia Pure hypercholesterolemia documented in this encounter Care Teams Rolling Mill Plugger Relationship Specialty Start Date End Date Juan Smith MD [address] [place] [address] PCP - General Family Medicine 10/12/21 01/25/22 documented as of this encounter
--- OUTSIDE RECORDS SUMMARY | 2024-02-15 13:16 | XMS_ITS | Encounter Summary ---
Author Organization [facility] Address [facility] [place] [address] Care Team Providers Care Floor Scraper Name Role Phone Juan Smith MD Primary Care Provider [phone] Encounter Details Date Type Department Care Team (Late st Contact Info) Description 06/01/2020 Telephone Dermatology at [facility] [address] [place] [phone] Vern Salmeron MD [facility] [address] [address] Social History Tobacco Use Types Packs/Day Years [...] encounter Miscellaneous Notes * Telephone Encounter - Paty Pink Betsy - 06/01/2020 1:26 PM EST Called patient again to inform her we need an appt before refilling finasteride. She is starting a new cholesterol med and will call in about 6 weeks to schedule. * Telephone Encounter - Paty Pnik - 06/01/2020 11:50 AM EST Called patient today to schedule telehealth, and she declined. She stated that she never used the first Rx of finasteride (Proscar) 5 mg Tablet. She would like a refill, so she can begin using. I told patient she may need to schedule an appt before it could be refilled. (regardless if she didn't use the first time) please advise. Thanks! documented in this encounter Plan of Treatment Upcoming Encounters Date Type Department Care Team (Late st Contact Info) Description 03/13/2024 9:45 AM EDT Office Visit Dermatology at [address] [place] [address] Emiliano Salinas MD [address], [place] [address] documented as of this encounter Visit Diagnoses Not on filedocumented in this encounter Care Teams Floor Scraper Relationship Specialty Start Date End Date Juan Smith MD [address] [address] PCP - General Family Medicine 05/10/16 09/02/21 documented as of this encounter
--- OUTSIDE RECORDS SUMMARY | 2024-02-15 13:16 | XMS_ITS | Encounter Summary ---
[place] [address] Care Team Providers Care Stogie Packer Name Role Phone Juan Smith MD Primary Care Provider [phone] Reason for Visit * Reason Onset Date Comments Questions 10/19/2019 more lab orders? Encounter Details Date Type Department Care Team (Late st Contact Info) Description 10/19/2019 Telephone Cardiology at [address] [phone] Rere Stock RN Questions (more lab orders?) Social History Tobacco Use Types Packs/Day Years [...] Telephone Encounter - Rere Stock RN - 10/19/2019 11:06 AM EDT Pt left message on the nurse triage line requesting the following lab orders:TSH, MAG, Vit B and D to be added to the labs Dr Montalvo would like her to get done. She is feeling warn out and wants to know what these will show. Call placed to the number listed, no answer, message left for her to contact her PCP with these symptoms and request. It is important that her PCP investigate why she feeling warn out. documented in this encounter Plan of Treatment Upcoming Encounters Date Type Department Care Team (Late st Contact Info) Description 03/13/2024 9:45 AM EDT Office Visit Dermatology at [place] [address] [facility] [place] [address] Emiliano Salinas MD [address], [place] [address] documented as of this encounter Visit Diagnoses Not on filedocumented in this encounter Care Teams Stogie Packer Relationship Specialty Start Date End Date Juan Smith MD [address] [place] [address] PCP - General Family Medicine 05/10/16 09/02/21 documented as of this encounter
--- OUTSIDE RECORDS SUMMARY | 2024-02-15 13:16 | XMS_ITS | Encounter Summary ---
Author Organization Formerly [facility] Address [facility] [place] [address] Care Team Providers Care Creative Services Manager Name Role Phone Juan Smith MD Primary Care Provider [phone] Reason for Visit * Reason Comments Medication Refill Encounter Details Date Type Department Care Team (Late st Contact Info) Description 04/26/[address] [facility] [address] [place] [address] Vern Salmeron MD [facility] [address] [place] [address] Hair thinning Social History Tobacco Use Types Packs/Day Years [...] encounter Miscellaneous Notes * Telephone Encounter - Jackelin Solomon LPN - 04/28/2020 9:43 AM EST Refill request received for finasteride, patient was last seen in clinic on 03/12/19. Refill requestpended to Dr. Salmeron for approval. documented in this encounter Plan of Treatment Upcoming Encounters Date Type Department Care Team (Late st Contact Info) Description 03/13/2024 9:45 AM EDT Office Visit Dermatology at [place] [address] [facility] [place] [address] Emiliano Salinas MD [address], [place] [address] documented as of this encounter Visit Diagnoses Diagnosis Hair thinning Alopecia, unspecified documented in this encounter Care Teams Creative Services Manager Relationship Specialty Start Date End Date Juan Smith MD [address] [place] [address] PCP - General Family Medicine 05/10/16 09/02/21 documented as of this encounter
--- OUTSIDE RECORDS SUMMARY | 2024-02-15 13:16 | XMS_ITS | Encounter Summary ---
[place] [address] Care Team Providers Care Manager Manufacturing Name Role Phone Mary Altamirano MD Primary Care Provider [phone] Reason for Referral * Psychiatric (Routine) - Closed Specialty Diagnoses / Procedures Referred By Contac t Referred To Contact Psychiatry Diagnoses Anxiety with depression Mary Altamirano MD [address] [place] [phone] [facility] [address] [place] [address] Referral ID Status Reason Start Date Expiration Date V isits Requested Visits Authorized [id number] Closed Consult, Test & Treat PCP Updated and/or Approved 01/26/2022 01/26/2023 10 10 Encounter Details Date Type Department Care Team (Latest Contact Info) Description 01/26/2022 Transcribe Orders eDH Incoming Referrals [phone] Mary Altamirano MD [address] [place] [address] Anxiety with depression Social History Tobacco Use Types Packs/Day Years [...] 9:45 AM EDT Office Visit Dermatology at [place] [address] [place] [address] Emiliano Salinas MD [address], [place] [address] Scheduled Referrals Name Type Priority Associated Diagnoses Order Schedule Referral to Psychiatry Outpatient Referral Routine Anxiety with depression Ordered: 01/26/2022 documented as of this encounter Visit Diagnoses Diagnosis Anxiety with depression documented in this encounter Care Teams Manager Manufacturing Relationship Specialty Start Date End Date Mary Altamirano MD PCP - General Family Medicine 01/26/22 08/26/22 documented as of this encounter
--- OUTSIDE RECORDS SUMMARY | 2024-02-15 13:16 | XMS_ITS | Encounter Summary ---
[place] [address] Care Team Providers Care Cutter Head Sharpener Name Role Phone Mary Altamirano MD Primary Care Provider [phone] Encounter Details Date Type Department Care Team (Late st Contact Info) Description 06/14/2022 Telephone Cardiology at [address] [address] Dariela Manzano, RN Social History Tobacco Use [...] Telephone Encounter - Dariela Manzano, RN - 06/21/2022 3:38 PM EST 06/21/22 Voice message from Yessenia,states she continues to note muscle pain and aches as well as muscle spasms since decreasing atorvastatin 80 mg to every other day dosing. She is wondering if she could be started on atorvastatin 20 mg daily and work her way up. She can be reached at [phone]. Forward to Dr Santiago. * Telephone Encounter - Dariela Manzano RN - 06/14/2022 12:55 PM EST Telephone call from Ms Luong,states she has noted onset of muscle pain and aches as well as muscle spasms since initiating atorvastatin 80 mg daily. She has not tried wgrqy-gyphi-urd dosing-she is agreeable to trying this. Last visit with Dr Santiago 05/21/22: Discussed options. This would include Incliseran (new [...] can be effective on a non-daily basis) Blood tests in ~6 weeks [place] Forward to Dr Santiago documented in this encounter Plan of Treatment Upcoming Encounters Date Type Department Care Team (Late st Contact Info) Description 03/13/2024 9:45 AM EDT Office Visit Dermatology at [place] [address] [place] [address] Emiliano Salinas MD [address], [place] [address] documented as of this encounter Visit Diagnoses Not on filedocumented in this encounter Care Teams Cutter Head Sharpener Relationship Specialty Start Date End Date Mary Altamirano MD PCP - General Family Medicine 01/26/22 08/26/22 documented as of this encounter
--- OUTSIDE RECORDS SUMMARY | 2024-02-15 13:16 | XMS_ITS | Encounter Summary ---
[place] [address] Care Team Providers Care Fatback Trimmer Name Role Phone Juan Smith MD Primary Care Provider [phone] Encounter Details Date Type Department Care Team (Latest Contact Info) Description 06/24/2020 9:40 AM EST TH Visit (TeleHealth) Cardiology at [address] [phone] Timur Chambers MD Familial hypercholesterolemia Social History [...] Progress Notes * Timur Chambers MD - 06/24/2020 9:40 AM EST [facility] Lipid Clinic-Follow Up Visit via telehealth Yessenia understands that she will be charged for this visit as if it were an in person visit ID/PMH Yessenia is a 70 y.o. followed by [...] Z98.890 ??? 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 She was in 2002 and has had a significant other for many years. Boyfriend (Deacon Peterson) lives in [place]. She has 5 children (2 biologic and 2 step) 3 biologic and 8 step grandchildren. She enjoys travel, walking, kayaking, reading, and gardening friends and family Present Illness: Yessenia S Kitchel??is seen at the request of Juan Smith MD??for follow-up management of dyslipidemia, specifically??a diagnosis of familial hypercholesterolemia and the inability to tolerate statins or PCSK9 inhibitors. She was on ezetimibe, bempedoic acid (Nexletol), and Vasepa at the time her labs were drawn.. Since her lab work she stopped ezetimibe. She believes that off the ezetimibe she is feeling better from a muscle and joint point of view. She presents today for assessment of her response to these agents and to talk about what she should do regarding the ezetimibe. Medications Current Outpatient Medications Medication Sig Dispense [...] azelastine (ASTELIN) 137 mcg (0.1 %) Aerosol, [place] 0 ??? PROVENTIL HFA 90 mcg/actuation HFA [...] Once daily ??? Mometasone (NASONEX) 50 mcg/Actuation [place] 2 [place](s) each nostril, Nasal, Twice daily No current facility-administered medications for this visit. Allergies Bee pollen, Morphine, Sulfa (sulfonamide antibiotics), and Voltaren [diclofenac sodium] Physical Exam not performed - [facility] Total cholesterol 168 mg/dL Triglycerides 89 mg/dL HDL 76 mg/dL LDL 75 mg/dL Uric acid 4.7 (normal 2.6-6.0 mg/dL) Blood sugar 95 mg/dL LFTs normal Assessment Yessenia has had a very brisk response incision ezetimibe, bempedoic acid, and Vascepa. Off all medications Yessenia's LDL has been as high as 223 mg/dL. Unfortunately she did not tolerate the triple drug combination well, specifically she has not tolerated the ezetimibe which she believes causes muscle and joint pain. She is now off ezetimibe and only taking bempedoic acid and Vascepa. Her uric acid level is in the normal range -this is important as bempedoic acid is known to inhibitrenal tubular OAT2 and can increase uric acid levels the risk of gout. Yessenia requested labs in 6 weeks while on just the bempedoic acid and Vascepa to see if her LDL remains acceptable. We also discussed lifestyle measures aimed at restriction of saturated fat and obtaining daily exercise. If her LDL increases substantially she will consider ezetimibe 2 or 3 times a week. I will plan to see her via telehealth in early August. She will have her labs drawn at [facility] in [facility] about a week before her visit. Plan ?? Medication changes: discontinue ezetimibe ?? Investigations: labs and a visit 6 weeks ?? Counseling: I explained my impression and answered all Claudette's questions. Follow up early August TIMUR CHAMBERS MD 06/18/2020 CC: Juan Smith MD documented in this encounter Plan of Treatment Upcoming Encounters Date Type Department Care Team (Late st Contact Info) Description 03/13/2024 9:45 AM EDT Office Visit Dermatology at [place] [address] [place] [address] Emiliano Salinas MD [address], [place] [address] documented as of this encounter Visit Diagnoses Diagnosis Familial hypercholesterolemia Pure hypercholesterolemia documented in this encounter Care Teams Fatback Trimmer Relationship Specialty Start Date End Date Juan Smith MD [facility] [place] [address] [place] [address] PCP - General Family Medicine 05/10/16 09/02/21 documented as of this encounter
--- OUTSIDE RECORDS SUMMARY | 2024-02-15 13:16 | XMS_ITS | Encounter Summary ---
[place] [address] Care Team Providers Care Outboard Motor Mechanic Name Role Phone Juan Smith MD Primary Care Provider [phone] Encounter Details Date Type Department Care Team (Latest Contact Info) Description 09/30/2020 Orders Only Cardiology at [address] [phone] Tory Montalvo MD Familial hypercholesterolemia Social History [...] AM EDT Office Visit Dermatology at [place] [address] [place] [address] Emiliano Salinas MD [address], BAKARI Nova DERMATOLOGY [place], [place] [phone] documented as of this encounter Visit Diagnoses Diagnosis Familial hypercholesterolemia Pure hypercholesterolemia documented in this encounter Care Teams Outboard Motor Mechanic Relationship Specialty Start Date End Date Juan Smith MD [address] [place] [address] PCP - General Family Medicine 05/10/16 09/02/21 documented as of this encounter
--- OUTSIDE RECORDS SUMMARY | 2024-02-15 13:16 | XMS_ITS | Encounter Summary ---
Author Organization [facility] Address [facility] [place] [address] Care Team Providers Care Plug And Mold Finisher Name Role Phone Juan Smith MD Primary Care Provider [phone] Encounter Details Date Type Department Care Team (Late st Contact Info) Description 05/26/2021 Telephone Cardiology at [address] [address] Liam Noel MD [facility] [address] Social History Tobacco Use Types Packs/Day Years [...] Telephone Encounter - Ashlyn Celis RN - 05/29/2021 11:01 AM EST Call to Yessenia with Dr. Noel' recommendation that she continue with Dr. Montalvo due to the very specialized medications prescribed. Advice given to ask if a TH video appt would be an appropriate alternative to an in-person office visit sometimes. Yessenia understands and will call Dr. Montalvo's office * Telephone Encounter - Christiana Hein - 05/26/2021 3:25 PM EST Patient called, she sees Dr. Rodriguez @ [facility] Cardiology for her cholesterol. She is asking if Dr. Noel or Dr. Daniel deal with this issue. She takes Nexletol with Zetia as she can not take statins. She would like to get out of the trips to [facility] and have a Poultry Pinner here. #[phone] documented in this encounter Plan of Treatment Upcoming Encounters Date Type Department Care Team (Late st Contact Info) Description 03/13/2024 9:45 AM EDT Office Visit Dermatology at [place] [address] [facility] [place] [place] [address] Emiliano Salinas MD [address] [facility], [place] [address] documented as of this encounter Visit Diagnoses Not on filedocumented in this encounter Care Teams Plug And Mold Finisher Relationship Specialty Start Date End Date Juan Smith MD [place] [address] PCP - General Family Medicine 05/10/16 09/02/21 documented as of this encounter
--- OUTSIDE RECORDS SUMMARY | 2024-02-15 13:16 | XMS_ITS | Encounter Summary ---
[place] [address] Care Team Providers Care Risk Investigator Name Role Phone Mary Altamirano MD Primary Care Provider [phone] Reason for Visit * Reason Onset Date Comments Medication Refill 09/28/2021 Nexletol & Zet ia Encounter Details Date Type Department Care Team (Late Contact [facility]) Description 09/28/2021 Refill Cardiology at [address] [phone] Tory Montalvo MD Medication Refill (Nexletol & Zetia) Social History Tobacco Use Types Packs/Day Years [...] Telephone Encounter - Rere Stock RN - 09/28/2021 4:42 PM EDT Pt left stating she is transferring her care to Cardiology in [facility] and would like to getthe Nexletol and Zetia sent to the [facility] at [facility] to get her to the appt with the powerbuilder in [facility]. Refill pended to Dr Montalvo. documented in this encounter Plan of Treatment Upcoming Encounters Date Type Department Care Team (Late st Contact Info) Description 03/13/2024 9:45 AM EDT Office Visit Dermatology at [place] [address] [facility] [facility] [address] [place] [address] Emiliano Salinas MD [address], [place]AR[place] [address] documented as of this encounter Visit Diagnoses Diagnosis Familial hypercholesterolemia Pure hypercholesterolemia documented in this encounter Care Teams Risk Investigator Relationship Specialty Start Date End Date Mary Altamirano MD PCP - General Family Medicine 09/03/21 10/11/21 documented as of this encounter
--- OUTSIDE RECORDS SUMMARY | 2024-02-15 13:16 | XMS_ITS | Encounter Summary ---
Author Organization [facility] [place] [address] Care Team Providers Care Shovel Logger Name Role Phone Juan Smith MD Primary Care Provider [phone] Encounter Details Date Type Department Care Team (Late st Contact Info) Description 12/15/2019 Telephone Cardiology at [address] [phone] Ester Urbano, RN Social History Tobacco Use Types Packs/Day [...] encounter Miscellaneous Notes * Telephone Encounter - Ester Urbano RN - 12/15/2019 3:48 PM EDT VM rec'd from Yessenia stating, Yeah, I got some labs done I need the results and need to know what Tory Montalvo wants me to do. This nurse returned pt's call, able to leave message on identified VM informing her how to return my call. Many Thanks, Ester Urbano RN 4A Cardiology documented in this encounter Plan of Treatment Upcoming Encounters Date Type Department Care Team (Late st Contact Info) Description 03/13/2024 9:45 AM EDT Office Visit Dermatology at [place] [address] [place] [address] Emiliano Salinas MD [address], [place] [address] documented as of this encounter Visit Diagnoses Not on filedocumented in this encounter Care Teams Shovel Logger Relationship Specialty Start Date End Date Juan Smith MD [address] [place] [address] PCP - General Family Medicine 05/10/16 09/02/21 documented as of this encounter
--- OUTSIDE RECORDS SUMMARY | 2024-02-15 13:16 | XMS_ITS | Encounter Summary ---
Author Organization [facility] [place] [address] Care Team Providers Care Trial Judge Name Role Phone Mary Altamirano MD Primary Care Provider Encounter Details Date Type Department Care Team (Latest Contact Info) Description 04/10/2022 4:00 PM EDT TH Visit (TeleHealth) Cardiology at [address] [address] Derick Acosta, [facility] [place] [address] Nutritional counseling Social History Tobacco Use Types [...] of this encounter Progress Notes * Derick Acosta, [facility] - 04/10/2022 4:00 PM EDT Images from the original note were not included. Heart and Vascular Center Cardiovascular Medicine Cardiology [place] [address] Initial Nutrition Assessment 04/09/22 Identification and Chief Complaint Yessenia Luong is a 72 y.o. patient of Mary Campbell MD referred to Cardiology Dietitian Jewelry Setter By Delfina Santiago MD, Lipidologist, for nutrition management of familial hypercholesterolemia in the setting of statin and PCSK9 intolerance. Yessenia is known to me from 2019 when I worked with her initially for the same condition. Subjective Lifestyle & Environment Nutrition/Food- dislikes cooking per my note 04/2019 Past Dietary Patterns Seen by me in 04/2019 for lipid-lowering diet. GI Screen - not assessed today. Yessenia Luong's Overall Health Goal at this time is: To reduce cardiac risk factors while maintaining quality of life. Objective Medications include Niaspan, Zetia, Nexletol, Vascepa, vitamin C, vitamin D Labs drawn 01/17/22 Total cholesterol 212 Triglycerides 190 HDL 59 LDL 115 Likes dk chocolate 2 squares daily Swapna Enjoys wine - was told recently by a provider to change from wine to liquor to reduce ingestion of potential pesticide/insecticide. No results for input(s): HA1C in the last 7068 hours. Today's Food recall with Cronometer nutrient analysis reflects 19 g SFA, 12 g Added Sugars from twomeals. Medical Nutrition Therapy Assessment Estimated body mass index is 28.6 kg/m?? [...] needs: 25 to 30 ml/kg ABW = Category BMI Range for Adults BMI Range for Older Adults Normal 18.5 - 24.9 23-30 Nutrition related medication management - n/a Nutrition-related labs TEST POSSIBLE NUTRIENTS IMPLICATED Triglyceride Alcohol intake, added sugars, total CHO LDL High saturated fats - chocolate, cheese/dairy ??? Potential for Malnutrition is low based on well-functioning gastro- intestinal system, usual eating pattern of 3 meals/day, food security, sufficient cooking knowledge and skills and adequate social support. ??? Patient's current dietary habits may be inadequate to achieve long-term health due to excessive saturated fatty acids resulting in elevated LDL, excess alcohol and/or carbohydrate intake resulting in elevated triglycerides. ??? Root: Current clinical diagnoses and above-listed data suggest: Nutrition Diagnoses: Inadequate oral food or beverage intake Excessive fluid intake Inadequate fluid intake x Decreased nutrient need (saturated fats, carbohydrate) x Altered nutrition related lab values as identified above Increased energy intake Inadequate energy intake Excessive energy intake Evident protein energy malnutrition Inadequate protein intake Excessive protein intake Inadequate bioactive substance intake Excessive bioactive substance intake Inadequate vitamin and/or mineral intake as identified in nutrient analysis Excessive vitamin intake Altered GI function Underweight Involuntary weight loss Involuntary weight gain x Food and Nutrition-Related Knowledge Deficit Harmful beliefs/attitudes about food- or nutrition-related topics x Not ready for diet / lifestyle change Self-monitoring deficit x Limited adherence to nutrition related recommendations x Undesirable food choices Limited access to foods OTHER: Nutrition Plan ??? Mediterranean-style diet controlled in carbohydrate (30% protein, 30% fat, 40% carbohydrate) with the goals: o Meet PLATEN BUILDER UP for vitamin D, calcium, magnesium, and potassium with sodium restriction to support optimal blood pressure control, vitamin D status; o Maintain muscle mass via sufficient protein-calorie intake and increased physical activity o Reduce and stabilize blood glucose o Control saturated fat intake at 7% or less of caloric intake to lower LDL; o Reduce added sugars to < 25 grams daily to reduce triglycerides; o Achieve caloric balance via increased activity and reduced intake to lower body weight. Nutrition Intervention 1. Set up cronometer and taught how to enter foods and read results. Patient appeared to have good comprehension per questions and comments. Nutrition Recommendations ??? Track saturated fats until our next visit. Follow-up: 2 weeks Thank you for the privilege of working with this patient. Derick Acosta RDN, LD This is a TeleHealth Nutrition Visit. Patient verbalizes consent to the telehealth visit for nutrition counseling and coaching. cc: ?? Mary Campbell MD [address] [facility] [address] documented in this encounter Plan of Treatment Upcoming Encounters Date Type Department Care Team (Late st Contact Info) Description 03/13/2024 9:45 AM EDT Office Visit Dermatology at [place] [address] [facility] [place] [address] Emiliano Salinas MD [address], BAKARI [place] [address] documented as of this encounter Visit Diagnoses Diagnosis Nutritional counseling documented in this encounter Care Teams Trial Judge Relationship Specialty Start Date End Date Mary Altamirano MD PCP - General Family Medicine 01/26/22 08/26/22 documented as of this encounter
--- OUTSIDE RECORDS SUMMARY | 2024-02-15 13:16 | XMS_ITS | Encounter Summary ---
[place] [address] Care Team Providers Care Director Operations Broadcast Name Role Phone Mary Altamirano MD Primary Care Provider [phone] Reason for Referral * Consultation (Routine) - Closed Specialty Diagnoses / Procedures Referred By Veronica brantley Referred To Contact Vascular Surgery Diagnoses Varicose veins of both lower extremities with pain #VV, PARTNERSHIP MARKETING MANAGER / PA Mary Altamirano MD [address] [place] [address] [facility] [address] [place] [address] Referral ID Status Reason Start Date Expiration Date V isits Requested Visits Authorized [id number] Closed Consult, Test & Treat 09/03/2021 09/03/2022 10 10 Encounter Details Date Type Department Care Team (Latest Contact Info) Description 09/03/2021 Transcribe Orders eDH Incoming Referrals [phone] Mary Altamirano MD [address] [place] [address] Varicose veins of both lower extremities with pain Social History Tobacco Use Types Packs/Day Years [...] 9:45 AM EDT Office Visit Dermatology at [place] [address] [facility] [place] [address] Emilinao Salinas MD [address], BAKARI [place] [address] Scheduled Referrals Name Type Priority Associated Diagnoses Orde r Schedule Referral to Vascular Surgery Outpatient Referral Routine Varicose veins of both lower extremities with pain Ordered: 09/03/2021 documented as of this encounter Visit Diagnoses Diagnosis Varicose veins of both lower extremities with pain Varicose veins of lower extremities with other complications documented in this encounter Care Teams Director Operations Broadcast Relationship Specialty Start Date End Date Mary Altamirano MD PCP - General Family Medicine 09/03/21 10/11/21 documented as of this encounter
--- OUTSIDE RECORDS SUMMARY | 2024-02-15 13:16 | XMS_ITS | Encounter Summary ---
[place] [address] Care Team Providers Care Coal Handler Name Role Phone Juan Smith MD Primary Care Provider [phone] Encounter Details Date Type Department Care Team (Latest Contact Info) Description 12/15/2019 Orders Only Cardiology at [address] [phone] Tory Montalvo MD Familial hypercholesterolemia Social History [...] 9:45 AM EDT Office Visit Dermatology at [place] [address] [place] [phone] Emiliano Salinas MD [address], [place] [address] documented as of this encounter Visit Diagnoses Diagnosis Familial hypercholesterolemia Pure hypercholesterolemia documented in this encounter Care Teams Coal Handler Relationship Specialty Start Date End Date Juan Smith MD [address] [place] [address] PCP - General Family Medicine 05/10/16 09/02/21 documented as of this encounter
--- OUTSIDE RECORDS SUMMARY | 2024-02-15 13:16 | XMS_ITS | Encounter Summary ---
[place] [address] Care Team Providers Care Automobile Or Truck Rental Dispatcher Name Role Phone Mary Altamirano MD Primary Care Provider [phone] Reason for Referral * Diagnostic Test (Routine) - Closed Specialty Diagnoses / Procedures Referred By Veronica brantley Referred To Contact Diagnoses Asymptomatic varicose veins Procedures Venous Valvular Incomp, Bilat Legs Chet Bales DO [address] [place] [address] [address] [place] [address] [facility] Vascular [place] [address] [address] Referral ID Status Reason Start Date Expiration Date V isits Requested Visits Authorized [id number] Closed Specialty Service Requested 10/10/2021 10/10/2022 1 1 Encounter Details Date Type Department Care Team (Late st Contact Info) Description 10/10/2021 Transcribe Orders [place] [address] Chet Bales DO [address] [place] [address] [address] [place] [address] Asymptomatic varicose veins Social History Tobacco Use [...] 9:45 AM EDT Office Visit Dermatology at [place] [address] [place] [phone] Emiliano Salinas MD [address], BAKARI Nova DERMATOLOGY [place], [place] [phone] documented as of this encounter Results * Venous Valvular Incomp, Bilat Legs (11/24/2021 9:44 AM EDT) VB Text Report Department: Vascular Surgery Lab Patient: [id number] (YESSENIA LUONG) CPT: 04628 Referring Physician: CHET BALES ?? Phone: Indications: [...] Report VASCUBASE 11/24/2021 9:44 AM EDT Chet aBles DO VASCULAR ORDERABLES VASCUBASE documented in this encounter Visit Diagnoses Diagnosis Asymptomatic varicose veins documented in this encounter Care Teams Automobile Or Truck Rental Dispatcher Relationship Specialty Start Date End Date Mary Altamirano MD PCP - General Family Medicine 09/03/21 10/11/21 documented as of this encounter
--- OUTSIDE RECORDS SUMMARY | 2024-02-15 13:16 | XMS_ITS | Encounter Summary ---
[place] [address] Care Team Providers Care Roadway Designer Name Role Phone Juan Smith MD Primary Care Provider Encounter Details Date Type Department Care Team (Late st Contact Info) Description 01/12/2020 Telephone Cardiology at [address] [phone] Tory Olivas, RN Social History Tobacco Use Types Packs/Day [...] encounter Miscellaneous Notes * Telephone Encounter - Tory Olivas, RN - 01/12/2020 4:17 PM EDTSummary: call back to assess patient's Medcation, Nexletol Returned call and left VM for Ms Luong, to inquire of her medication, Nexletol. Asked her to callthe cardiology Nurse line, to assess her status, regardding taking her new medication. documented in this encounter Plan of Treatment Upcoming Encounters Date Type Department Care Team (Late st Contact Info) Description 03/13/2024 9:45 AM EDT Office Visit Dermatology at [place] [address] [facility] [address] [place] [address] Emiliano Salinas MD [address], [place]AKAR[place] [address] documented as of this encounter Visit Diagnoses Not on filedocumented in this encounter Care Teams Roadway Designer Relationship Specialty Start Date End Date Juan Smith MD [address] [place] [address] PCP - General Family Medicine 05/10/16 09/02/21 documented as of this encounter
--- OUTSIDE RECORDS SUMMARY | 2024-02-15 13:16 | XMS_ITS | Encounter Summary ---
[place] [address] Care Team Providers Care Differential Repairer Name Role Phone Juan Smith MD Primary Care Provider Reason for Referral * Consultation (Routine) - Closed Specialty Diagnoses / Procedures Referred By Veronica brantley Referred To Contact Vascular Surgery Diagnoses Peripheral venous insufficiency TANSKI / TESTING DONE Ester Gupta DO [address] [place] [address] [address] [place] [address] [facility] Vascular Surg [address] [place] [address] Referral ID Status Reason Start Date Expiration Date V isits Requested Visits Authorized [id number] Closed Consult, Test & Treat 01/14/2022 01/14/2023 1 1 Encounter Details Date Type Department Care Team (Latest Contact Info) Description 01/14/2022 Transcribe Orders eDH Incoming Referrals [phone] Ester Gupta DO [address] [place] [address] [address] [place], [place] [phone] Peripheral venous insufficiency Social History Tobacco Use Types Packs/Day Years [...] AM EDT Office Visit Dermatology at [place] [address] [facility] [place] [address] Emiliano Salinas MD [address], [place] [address] Scheduled Referrals Name Type Priority Associated Diagnoses Orde r Schedule Referral to Vascular Surgery Outpatient Referral Routine Peripheral venous insufficiency Ordered: 01/14/2022 documented as of this encounter Visit Diagnoses Diagnosis Peripheral venous insufficiency Unspecified venous (peripheral) insufficiency documented in this encounter Care Teams Differential Repairer Relationship Specialty Start Date End Date Juan Smith MD [address] [place] [address] PCP - General Family Medicine 10/12/21 01/25/22 documented as of this encounter
--- OUTSIDE RECORDS SUMMARY | 2024-02-15 13:16 | XMS_ITS | Encounter Summary ---
Author Organization [facility] [place] [address] Care Team Providers Care Tectonophysicist Name Role Phone Juan Smith MD Primary Care Provider [phone] Reason for Visit * Reason Onset Date Comments Follow-up 04/26/2020 med change Encounter Details Date Type Department Care Team (Late st Contact Info) Description 04/26/2020 Telephone Cardiology at [address] [phone] Rere Stock, RN Follow-up (med change) Social History Tobacco Use Types Packs/Day Years [...] Telephone Encounter - Rere Stock RN - 04/26/2020 3:35 PM EST Pt calling to let Dr Montalvo know that she was not able to start the Nexletol until the first of April, so is behind on the requested 3 month F/U as requested by Dr Montalvo. She will be happy to reschedule now and have the f/u labs done at [facility] prior to the visit. Order e-faxed to [facility] and a copy mailed to the pt as well. She did want Dr Montalvo to know that she is tolerating the medication well. She has plenty of refills and will wait to get the combined Zetia/Nexletol after the visit and labswith Dr Montalvo. Pt to call with any other questions/concerns. documented in this encounter Plan of Treatment Upcoming Encounters Date Type Department Care Team (Late st Contact Info) Description 03/13/2024 9:45 AM EDT Office Visit Dermatology at [place] [address] [place] [address] Emiliano Salinas MD [address], [place] [address] documented as of this encounter Visit Diagnoses Diagnosis Familial hypercholesterolemia Pure hypercholesterolemia documented in this encounter Care Teams Tectonophysicist Relationship Specialty Start Date End Date Juan Smith MD [address] [place] [address] PCP - General Family Medicine 05/10/16 09/02/21 documented as of this encounter
--- OUTSIDE RECORDS SUMMARY | 2024-02-15 13:16 | XMS_ITS | Encounter Summary ---
Author Organization [facility] [place] [address] Care Team Providers Care Wellfield Technician Name Role Phone Mary Altamirano MD Primary Care Provider Reason for Visit * Consultation (Routine) - Closed Specialty Diagnoses / Procedures Referred By Veronica brantley Referred To Contact Vascular Surgery Diagnoses Peripheral venous insufficiency MARY / TESTING DONE Ester Gupta, [address] [place] [address] [facility] Vascular Surg [address] [place] [address] Referral ID Status Reason Start Date Expiration Date V isits Requested Visits Authorized [id number] Closed Consult, Test & Treat 01/14/2022 01/14/2023 1 1 Encounter Details Date Type Department Care Team (Late st Contact Info) Description 02/16/2022 9:30 AM EDT Office Visit [place] [address] Kyle Pagan III, MD [address] [place] [address] [place] [address] Varicose veins of left lower extremity with pain; Venous insufficiency of both lower extremities Social History Tobacco Use Types Packs/Day Years [...] Sign Reading Time Taken Comments Blood Pressure 168/65 02/16/2022 9:41 AM EDT Pulse 58 02/16/2022 9:41 AM EDT Temperature - - Respiratory Rate 16 02/16/2022 9:41 AM EDT Oxygen Saturation - - Inhaled Oxygen Concentration - - Weight 72.6 kg (160 lb) 02/16/2022 9:41 AM EDT Height 161.3 cm (5' 3.5) 02/16/2022 9:41 AM EDT Body Mass Index 27.9 02/16/2022 9:41 AM EDT documented in this encounter Progress Notes * Kyle Pagan III, MD - 02/16/2022 9:30 AM EDT OUTPATIENT VASCULAR SURGERY CONSULTATION Reason for Visit: Lower extremity varicose and reticular veins, venous insufficiency. History of Present Illness: Yessenia Luong is a 72 y.o. female seen in consultation at the request of Dr. Ester Gupta regarding lower extremity venous disease. Bilateral lower extremity venous duplex with reflux testing was performed and is reviewed below. She describes pain in the anterior left lower leg, and bilateral lateral lower leg. She has noted varicose veins of the lower leg bilaterally for some time. She denies significant swelling. She has not had ulceration, or DVT/phlebitis. She used compression stockings for years, with some improvementin symptoms; these were knee and thigh-high. She walks 2 miles without claudication, has leg fatigue and dyspnea on exertion when she walks an incline. She has some foot discomfort with walking. 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 She has no history of heart disease, had a nuclear stress test March 2019 with normal LV function, EF 73% and no ischemia or scar. She has a CT scan to evaluate coronary calcifications pending. Shedenies palpitations or chest pain. She has dyspnea on exertion, none at rest. She quit smoking at age 17, smoked less than 1 pack/day for a short time. She denies abdominal pain or problems. She has some dizziness with anesthesia. She has had hysterectomy and appendectomy, x2, breast reduction. Patient Active Problem List Diagnosis Code ??? [...] Venous insufficiency of both lower extremities I87.2 Current Outpatient Medications: ??? escitalopram oxalate (LEXAPRO) 5 mg Tablet, Take 15 mg by mouth daily., Disp: , Rfl: ??? ezetimibe (Zetia) 10 mg Tablet, 1/2 tablet daily, Disp: 45 tablet, Rfl: 0 ??? bempedoic acid (Nexletol) 180 mg Tablet, Take 1 tablet by mouth daily., Disp: 90 tablet, Rfl: 0 ??? Vascepa 1 gram Capsule, TAKE 2 CAPSULES BY MOUTH TWICE DAILY, Disp: 360 capsule, Rfl: 3 ??? finasteride (Proscar) 5 mg Tablet, TAKE 1 TABLET BY MOUTH DAILY (Patient not taking: Reported on 01/29/2022), Disp: 30 tablet, Rfl: 5 ??? sulfacetamide (KLARON) 10 % Suspension, Apply topically to face 1-2 times a day. (Patient not taking: Reported on 01/29/2022), Disp: 118 mL, Rfl: 3 ??? EPINEPHrine 0.3 mg/0.3 mL Auto-Injector, as needed., Disp: , Rfl: 3 ??? TIROSINT 50 mcg Capsule, Take 50 mcg by mouth daily., Disp: , Rfl: 1 ??? traZODone (DESYREL) 50 mg Tablet, Take 50 mg by mouth nightly., Disp: , Rfl: ??? estradiol (ESTRACE) 0.01 % (0.1 mg/gram) Cream, APPLY 1 GRAM VAGINALLY TWICE A WEEK DIRECTED, Disp: , Rfl: 0 ??? naproxen (NAPROSYN) 500 mg Tablet, as needed., Disp: , Rfl: 0 ??? olopatadine (PATANOL) 0.1 % Drops, instill 1 drop into affected eye twice a day, Disp: , Rfl: 0 ??? azelastine (ASTELIN) 137 mcg (0.1 %) Aerosol, [place], , Disp: , Rfl: 0 ??? PROVENTIL HFA 90 mcg/actuation HFA Aerosol Inhaler, inhale 2 puffs by mouth if needed, Disp: , Rfl: 0 ??? acetaminophen (TYLENOL) 500 mg Tablet, Take 2 tablets by mouth every 6 hours as needed for Pain(for MODERATE pain)., Disp: 30 tablet, Rfl: 1 ??? ASCORBATE CALCIUM (VITAMIN C ORAL), Take by mouth., Disp: , Rfl: ??? ERGOCALCIFEROL, VITAMIN D2, (VITAMIN D ORAL), Take by mouth., Disp: , Rfl: ??? multivitamin (THERAGRAN) tablet, Take 1 tablet by mouth daily., Disp: , Rfl: ??? fexofenadine (EVANGELINA) 180 mg tablet, 180 mg, PO, Once daily, Disp: , Rfl: ??? Mometasone (NASONEX) 50 mcg/Actuation [place], 2 [place](s) each nostril, Nasal, Twice daily, Disp: , Rfl: Allergies Allergen Reactions ??? Morphine Diarrhea and GI upset Other reaction(s): Nausea ??? Oxycodone Hcl Other reaction(s): Nausea ??? Penicillins Other reaction(s): Nausea ??? Atorvastatin Calcium ??? Bee Pollen ??? Celecoxib ??? Potassium Clavulanate ??? Rosuvastatin Calcium ??? Simvastatin ??? Sulfa (Sulfonamide Antibiotics) ??? Sulfamethoxazole ??? Trimethoprim ??? Fenofibrate ??? Voltaren [Diclofenac Sodium] Review of Systems: Constitutional (weight change, fever) - Denies Neuro (dizziness, seizures, numbness, tingling) - Denies Eyes (vision) - Denies Ears, nose, throat (hearing) - Denies Cardiovascular (CP) - Denies Respiratory (SOB) - Denies GI (abd pain, nausea, emesis, blood in stool) - Denies (hematuria, dysuria, frequency) - Denies Muscoloskeletal (extremity pain, weakness) - see HPI Skin (ulcers, rashes) - see HPI Functional Status/Social Hx: Smoked only at age 17, less than 1 pack/day. . Family Hx: No DVT. Family History Problem Relation Age of Onset ??? High Cholesterol Mother at 91 ??? High Cholesterol Father at 90 ??? Heart Disease Father stent and CABG ??? Parkinsonism Father ??? Diabetes Maternal Grandfather ??? Breast Cancer Sister 62 ??? Heart Disease Sister 2 stents ??? Allergies Daughter Physical Exam: Vitals Flowsheet Row Office Visit from 02/16/[address] [facility] Weight 72.6 kg (160 lb) Height 161.3 cm (5' 3.5) BSA (Calculated - sq m) 1.8 sq meters BMI (Calculated) 27.9 Heart Rate 58 Resp 16 BP 168/65 Patient Position Sitting General - NAD, seen alone Neuro - Alert and Oriented, Motor Sensory grossly intact Skin - See lower extremity examination below No carotid bruits Cardiac - RRR, no murmurs Lungs - Clear, equal Abd - Soft, NT, ND, No palpable pulsatile masses Extremities - Right lower extremity: There are some small varicose and reticular veins of the anterior lower leg. There is no stasis dermatitis or edema, no ulcer. Pedal pulses are palpable. Left lower extremity: There are reticular and small varicose veins of the lower leg. I find no stasis dermatitis or edema, no ulcer. Pedal pulses are palpable. Vascular Exam: R L Carotid 2/2 bruit (-) 2/2 bruit (-) Radial 2/2 2/2 Femoral 2/2 2/2 Popliteal DP 2/2 2/2 PT 2/2 2/2 Labs: February 2019: BUN 19, creatinine 0.79. Studies: Bilateral lower extremity venous duplex 11/24/21: Findings: Segment Right Reflux? Diameter (mm) Depth (mm) Common Femoral Vein Competent Femoral Vein Competent Popliteal Competent GSV, Near SFJ Competent 5.8 11.9 GSV, Proximal Thigh Competent 4.0 15.7 GSV, Mid Thigh Reflux 3.8 15.6 GSV, Distal Thigh Reflux 3.5 13.9 GSV, Knee Reflux 3.9 9.8 GSV Prox Calf Reflux 2.1 10.4 SSV Competent Segment Left Reflux? Diameter (mm) Depth (mm) Common Femoral Vein Reflux Femoral Vein Competent Popliteal Competent GSV, Near SFJ Competent 7.1 12.5 GSV, Proximal Thigh Competent 4.4 11.4 GSV, Mid Thigh Competent 1.8 17.8 GSV, Distal Thigh Competent 2.5 14.8 GSV, Knee Competent 2.4 10.1 GSV Prox Calf Competent 2.5 7.2 SSV Competent RIGHT: No evidence of deep venous valvular [...] in our vascular lab database for comparison. Assessment and Plan: Yessenia Luong presents with bilateral lower leg small varicose and reticular veins, has seen Dr. Ester Gupta for these as well. She may have some pain related to these, more left than right, although I counseled her that the size of these veins in my opinion does not explain leg symptoms. She does not have stasis dermatitis or ulcer. Bilateral lower extremity venous duplex demonstrates no deep venous incompetence on the right, great saphenous is incompetent mid thigh to proximal calf, measures at most 3.9 mm in that segment. There is no short saphenous reflux. There is left common femoral but no other deep venous incompetence. There is no great saphenous incompetence, no short saphenous reflux. I discussed these findings at length. We did discuss radiofrequency ablation or open stripping of the right great saphenous vein. While we could treat right great saphenous incompetence, the role carlos manuel is unclear, particularly as she has further symptoms on that side. Most of the veins in thelegs are too small for stab phlebectomy, could be treated with sclerotherapy but again I am not certain if that will alleviate pain. For the present, she will see me or Dr. Gupta on an as-needed basis. I did recommend that she usecompression stockings. If varicose veins progress in size and symptomatology, I am happy to reevaluate at any time. Thank you for the opportunity to participate in care. Please contact me with any questions. documented in this encounter Plan of Treatment Upcoming Encounters Date Type Department Care Team (Late st Contact Info) Description 03/13/2024 9:45 AM EDT Office Visit Dermatology at [place] [address] [facility] [place] [address] Emiliano Salinas MD [address] [facility], [place] [address] Scheduled Referrals Name Type Priority Associated Diagnoses Orde r Schedule Referral to Vascular Surgery Outpatient Referral Routine Peripheral venous insufficiency Ordered: 01/14/2022 documented as of this encounter Visit Diagnoses Diagnosis Varicose veins of left lower extremity with pain Varicose veins of lower extremities with other complications Venous insufficiency of both lower extremities documented in this encounter Care Teams Wellfield Technician Relationship Specialty Start Date End Date Mary Altamirano MD PCP - General Family Medicine 01/26/22 08/26/22 documented as of this encounter
--- OUTSIDE RECORDS SUMMARY | 2024-02-15 13:16 | XMS_ITS | Encounter Summary ---
[place] [address] Care Team Providers Care Finance Administrator Name Role Phone Juan Smith MD Primary Care Provider [phone] Reason for Visit * Reason Onset Date Comments Follow-up 11/20/2021 FLP & Uric acid prior to next clinic visit Encounter Details Date Type Department Care Team (Late st Contact Info) Description 11/20/2021 Telephone Cardiology at [address] [address] Ana Horan RN Follow-up (FLP & Uric acid prior to next clinic visit) Social History Tobacco Use Types Packs/Day Years [...] Telephone Encounter - Rere Stock RN - 11/20/2021 3:02 PM EDT Pt left message to get FLP and Uric acid checked prior to her visit with Dr Santiago. Orders e-faxed to [facility] as written by Dr Montalvo. Pt will get done Saturday am. Call placed to the mobile number listed, no answer, VM left letting her know that the orders have been faxed. She is to call if the folks at [facility] say they did not get the orders, we can refax before she leaves. Pt to call back with any questions/concerns. * Telephone Encounter - Ana Horan RN - 11/20/2021 11:58 AM EDT VM from [facility] requesting lab slips form Dr. Santiago and Selvin be sent to [facility] and she will have the lab work done this Saturday= seeing Dr. Santiago this Saturday Chart reviewed. Any labs ordered have and were ordered by Dr. Montalvo- pt has not yet met Dr. Santiago Call to pt she will call Dr. Montalvo's team for new orders Ana Horan RN 4A Cardiology documented in this encounter Plan of Treatment Upcoming Encounters Date Type Department Care Team (Late st Contact Info) Description 03/13/2024 9:45 AM EDT Office Visit Dermatology at [place] [address] [facility] [place] [address] Emiliano Salinas MD [address], [place] [address] documented as of this encounter Visit Diagnoses Not on filedocumented in this encounter Care Teams Finance Administrator Relationship Specialty Start Date End Date Juan Smith MD [place] [address] PCP - General Family Medicine 10/12/21 01/25/22 documented as of this encounter
--- OUTSIDE RECORDS SUMMARY | 2024-02-15 13:16 | XMS_ITS | Encounter Summary ---
Author Organization [facility] Address [facility] [place] [address] Care Team Providers Care Veterinary Assistant Technician Name Role Phone Mary Altamirano MD Primary Care Provider [phone] Reason for Referral * Diagnostic Test (Routine) - Closed Specialty Diagnoses / Procedures Referred By Contac t Referred To Contact Diagnoses Familial hypercholesterolemia THERESA (obstructive sleep apnea) Dyspnea, unspecified type Procedures Echocardiogram Stress (Treadmill) Delfina Alexandre MD [facility] [place] [address] [facility] [place] [address] Referral ID Status Reason Start Date Expiration Date V isits Requested Visits Authorized [id number] Closed Specialty Service Requested 05/21/2022 05/21/2023 1 1 Encounter Details Date Type Department Care Team (Late st Contact Info) Description 05/21/2022 10:20 AM EST Office Visit Cardiology at [address] [address] Delfina Alexandre MD [facility] [place] [address] Familial hypercholesterolemia; THERESA (obstructive sleep apnea); Dyspnea, [...] Sign Reading Time Taken Comments Blood Pressure 157/68 05/21/2022 10:07 AM EST Pulse 84 05/21/2022 10:07 AM EST Temperature - - Respiratory Rate - - Oxygen Saturation 100% 05/21/2022 10:07 AM EST Inhaled Oxygen Concentration - - Weight 71.7 kg (158 lb) 05/21/2022 10:07 AM EST Height 161.3 cm (5' 3.5) 05/21/2022 10:07 AM ES T Body Mass Index 27.55 05/21/2022 10:07 AM EST documented in this encounter Progress Notes * Delfina Alexandre MD - 05/21/2022 10:20 AM EST CARDIOLOGY OUTPATIENT CLINIC NOTE PRIMARY CARE PROVIDER: Mary Campbell MD REFERRING PROVIDER: No ref. provider found Patient ID: Yessenia Luong is a 72 y.o. female. HPI: 05/21/22 04/05/22 Last appointment Former patient of Dr. Tory Montalvo Familial Hypercholesterolemia, no history of heart disease, no diabetes She has not tolerated statins but has very high baseline LDL cholesterol. She had symptoms with medications (cardiac and otherwise) but was found to have Lyme Disease which may have been causing symptoms. 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 ??She was in 2002 and has had a significant other for many years. ??Her significant other (Deacon Peterson) lives in [place].?She has??5??children and 3 biologic and 8 step??grandchildren. ??She enjoys travel, walking, kayaking, reading, as well as gardening, friends and family Notes from previous appointment with Dr. Montalvo: Present Illness:??Yessenia S Ag??is seen at the request of [...] Outpatient Medications Medication Sig Dispense Refill ??? niacin (NIASPAN) 750 mg Tablet Sustained Release 24 hr Take 1 tablet by mouth nightly. Start bytaking one tablet nightly, after one week increase to two tablets nightly 180 tablet 0 ??? escitalopram oxalate (LEXAPRO) 5 mg Tablet [...] azelastine (ASTELIN) 137 mcg (0.1 %) Aerosol, Barker 0 ??? PROVENTIL HFA 90 mcg/actuation HFA [...] Once daily ??? Mometasone (NASONEX) 50 mcg/Actuation [place] 2 Barker(s) each nostril, Nasal, Twice daily No current [...] History Narrative Retired, previously worked as school psychologist. since 2002, boyfriend x 12 [...] the past 24 hrs: Pulse BP SpO2 05/21/22 1007 84 157/68 100 % No results found for this [...] non-daily basis) Blood tests in ~6 weeks [place] Time spent for this clinic appointment on the date of service includes: 25 minutes review of her chart and previous lipid evaluation and recommendations; 30 minutes fsge-ex-eihm and 10 minutes coordination of care 1) ochy-ks-apps counseling as noted above 2) reviewing past medical records, cardiac testing, results of laboratory testing 3) coordinating care with other physicians and allied health care providers Delfina Alexandre MD, Vonnie, FACC, FNLA Attending Family Dentist Sports Cardiology Program Preventive Cardiology Lipid Clinic Advanced Hypertension Clinic documented in this encounter Plan of Treatment Upcoming Encounters Date Type Department Care Team (Late st Contact Info) Description 03/13/2024 9:45 AM EDT Office Visit Dermatology at [place] [address] [place] [phone] Emiliano Salinas MD [address], [place] [address] documented as of this encounter Results * STRESS ECHO W LMTD SPEC DOPP COLOR DOPP (08/01/2022 9:19 AM EST) EF 65 HEARTLAB SYSTEM Anatomical Region Laterality Modality Cardiac Other 08/01/2022 8:38 AM EST Narrative 08/01/2022 9:38 AM EST ? Exercise Stress Echocardiogram Report Name: YESSENIA LUONG ?Study Date: 08/01/2022 08:38 AMBP: 142/74 mmHg ? Patient Location: 4A ? HR: 69 : 1950 ? Height: 161 cm ? Account: [id number] Age: 72 yrs ? Weight: 72 kg Gender: Female ?BSA: 1.8 m2 Ordering Physician: DELFINA ALEXANDRE Referring Physician: DELFINA ALEXANDRE Performed By: SOO Woods Reason For Study: Abnormal EKG Exam Location: [facility]. Interpretation Summary IMPRESSION: There was no evidence [...] 69 : 1950 Height: 161 cm Account: [id number] Age: 72 yrs Weight: 72 kg Gender: Female BSA: 1.8 m2 Ordering Physician: DELFINA ALEXANDRE Referring Physician: DELFINA ALEXANDRE Performed By: SOO Woods Reason For Study: Abnormal EKG Exam Location: [facility]. Interpretation Summary IMPRESSION: There was no evidence [...] sleep apnea (adult) (pediatric) Dyspnea, unspecified type Familial hypercholesterolemia Pure hypercholesterolemia THERESA (obstructive sleep apnea) Obstructive sleep apnea (adult) (pediatric) Dyspnea, unspecified type documented in this encounter Care Teams Veterinary Assistant Technician Relationship Specialty Start Date End Date Mary Altamirano MD PCP - General Family Medicine 01/26/22 08/26/22 documented as of this encounter
--- OUTSIDE RECORDS SUMMARY | 2024-02-15 13:16 | XMS_ITS | Encounter Summary ---
Author Organization [facility] [place] [address] Care Team Providers Care Division Manager Name Role Phone Mary Altamirano MD Primary Care Provider [phone] Encounter Details Date Type Department Care Team (Latest Contact Info) Description 04/23/2022 1:00 PM EST TH Visit (TeleHealth) Cardiology at [address] [address] Derick Acosta, [facility] [place] [address] Nutritional counseling Social History Tobacco Use Types [...] Progress Notes * Derick Acosta RD - 04/23/2022 1:00 PM EST Images from the original note were not included. [facility] Cardiovascular Medicine Cardiology [facility] [place] [address] , #2 eFax: NO SHOW 04/23/22 Identification Yessenia Luong is a 72 y.o. patient of Mary Campbell MD referred to Cardiology Dietitian Wafer Fab Operator By Delfina Santiago MD, Lipidologist, for nutrition management of familial hypercholesterolemia in the setting of statin and PCSK9 intolerance. Yessenia is known to me from 2019 when I worked with her initially for the same condition. 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 Subjective Yessenia Luong's Overall Health Goal:To reduce cardiac risk factors while maintaining quality of life. Goal is motivated by: Plan from last visit 1. Set up cronometer and taught how to enter foods and read results. ??? Track saturated fats until our next visit. Labs drawn 01/17/22 Total cholesterol 212 Triglycerides 190 HDL 59 LDL 115 Food and Lifestyle-related Successes: Allergy tested - allergy to milk and wheat 24-hour food recall: B: almond milk, gluten-free energy bar; L: steak w/string beans; S: brown rice, egg, potato w/olive oil Barriers Encountered & Resolutions Identified: Doesn't enjoy cooking; used to cook very well. Alcohol Confusion Unable to use cronometer Objective Present Dietary Pattern: Mediterranean-style (gluten-free, dairy-free, soy-free) Estimated body mass [...] needs: 25 to 30 ml/kg ABW = TEST POSSIBLE NUTRIENTS IMPLICATED Triglyceride Alcohol intake, added sugars, total CHO LDL High saturated fats - chocolate, cheese/dairy Interim Events: Estevez - tested positive for dairy and gluten allergies Physical Estimated body mass index is 28.6 kg/m?? as calculated from the following: Height as of 04/05/22: 5' 3.5 (161.3 cm). Weight as of 04/05/22: 74.4 kg (164 lb). Wt Readings from Last 3 Encounters: 04/05/22 74.4 kg (164 lb) 02/16/22 72.6 kg (160 lb) 01/29/22 72.6 kg (160 lb) No Updated Labs Since Last Visit: No results for input(s): HA1C in the last 7068 hours. Nutrition Assessment/Impression/Diagnosis Yessenia Luong is a 72-year-old patient of Delfina Santiago MD, Benchroom Shop Optician, referred to cardiology RDN for hyperlipidemia in the setting of statin intolerance and PCSK9 intolerance. Patient's current dietary habits may be inadequate to achieve long-term health due to excessive saturated fatty acids resulting in elevated LDL, excess alcohol and/or carbohydrate intake resulting in elevated triglycerides. Today, Yessenia reports she has been diagnosed with milk and wheat Allergies. Yessenia appeared over-whelmed, discouraged, resentful at having to make these Changes to her lifestyle. Plan/Intervention/Recommendations Discussed gluten-free, dairy-free diet application. Yessenia also wants to remove nightshades from her Diet for three months to determine if she could feel better without them. Follow-up: 2 weeks Thank you for the privilege of working with this patient. Derick Acosta RDN, LD This was a TeleHealth Nutrition Visit. Patient verbalizes consent to the telehealth visit for nutrition counseling and coaching. cc: Mary Campbell MD [address] [facility] [id number] documented in this encounter Plan of Treatment Upcoming Encounters Date Type Department Care Team (Late st Contact Info) Description 03/13/2024 9:45 AM EDT Office Visit Dermatology at [address] [place] [address] Emiliano Salinas MD [address] [place] [address], [place] [address] documented as of this encounter Visit Diagnoses Diagnosis Nutritional counseling documented in this encounter Care Teams Division Manager Relationship Specialty Start Date End Date Mary Altamirano MD PCP - General Family Medicine 01/26/22 08/26/22 documented as of this encounter
--- OUTSIDE RECORDS SUMMARY | 2024-02-15 13:16 | XMS_ITS | Encounter Summary ---
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, pt would like to transfer care to Mary Sands MD [address] [place] [address] [facility] [address] [place] [phone] Referral ID Status Reason Start Date Expiration Date V isits Requested Visits Authorized [id number] Closed Consult, Test & Treat PCP Updated and/or Approved 10/12/2021 10/12/2022 10 10 Encounter Details Date Type Department Care Team (Latest Contact Info) Description 10/12/2021 Transcribe Orders eDH Incoming Referrals [phone] Mary Altamirano MD [address] [place] [address] Familial hypercholesterolemia Social History Tobacco Use Types [...] 9:45 AM EDT Office Visit Dermatology at [place] [address] [facility] [place] [address] Emiliano Salinas MD [address], [place] [address] Scheduled Referrals Name Type Priority Associated Diagnoses Orde r Schedule Referral to Cardiology Outpatient Referral Routine Familial hypercholesterolemia Ordered: 10/12/2021 documented as of this encounter Visit Diagnoses Diagnosis Familial hypercholesterolemia Pure hypercholesterolemia documented in this encounter Care Teams Rig Supervisor Relationship Specialty Start Date End Date Juan Smith MD [address] [place] [phone] PCP - General Family Medicine 10/12/21 01/25/22 documented as of this encounter
--- OUTSIDE RECORDS SUMMARY | 2024-02-15 13:16 | XMS_ITS | Encounter Summary ---
Author Organization [facility] [place] [address] Care Team Providers Care Small Engine Trainer Name Role Phone Mary Altamirano MD Primary Care Provider Encounter Details Date Type Department Care Team (Latest Contact Info) Description 05/21/2022 Travel Social History Tobacco Use Types Packs/Day [...] 9:45 AM EDT Office Visit Dermatology at [place] [address] [facility] [place] [phone] Emiliano Salinas MD [address], MANINDER [place] [address] documented as of this encounter Visit Diagnoses Not on filedocumented in this encounter Care Teams Small Engine Trainer Relationship Specialty Start Date End Date Mary Altamirano MD PCP - General Family Medicine 01/26/22 08/26/22 documented as of this encounter
--- OUTSIDE RECORDS SUMMARY | 2024-02-15 13:16 | XMS_ITS | Encounter Summary ---
Author Organization [facility] [place] [address] Care Team Providers Care Bingo Worker Name Role Phone Juan Smith MD Primary Care Provider [phone] Encounter Details Date Type Department Care Team (Late st Contact Info) Description 12/24/2019 Telephone Cardiology at [address] [phone] Ester Urbano, RN Social History Tobacco Use [...] Telephone Encounter - Ester Urbano RN - 12/24/2019 2:16 PM EDT VM rec'd requesting that her labs be sent to [facility]. This nurse able to establish clear connection with pt and advised that her labs have been sent overper her request. No other concerns/needs/questions were discussed during this phone encounter. Many Thanks, Ester Urbano RN 4A Cardiology documented in this encounter Plan of Treatment Upcoming Encounters Date Type Department Care Team (Late st Contact Info) Description 03/13/2024 9:45 AM EDT Office Visit Dermatology at [place] [address] [place] [address] Emiliano Salinas MD [address], [place] [address] documented as of this encounter Visit Diagnoses Not on filedocumented in this encounter Care Teams Bingo Worker Relationship Specialty Start Date End Date Juan Smith MD [facility] [place] [address] PCP - General Family Medicine 05/10/16 09/02/21 documented as of this encounter
--- OUTSIDE RECORDS SUMMARY | 2024-02-15 13:16 | XMS_ITS | Encounter Summary ---
Author Organization [facility] Address [facility] [place] [address] Care Team Providers Care Household Chores Name Role Phone Juan Smith MD Primary Care Provider [phone] Reason for Referral * Diagnostic Test (Routine) - Closed Specialty Diagnoses / Procedures Referred By Contac t Referred To Contact Radiology Diagnoses Familial hypercholesterolemia Procedures CT Heart For Coronary Calcium wo Contrast (Prepaid) Tory Chambers MD [facility] [place] [address] [facility] [place] [address] Referral ID Status Reason Start Date Expiration Date V isits Requested Visits Authorized [id number] Closed Specialty Service Requested 10/28/2020 04/30/2022 1 1 Encounter Details Date Type Department Care Team (Latest Contact Info) Description 10/28/2020 3:20 PM EDT Office Visit Cardiology at [address] [address] Tory Chambers MD Familial hypercholesterolemia Social History Tobacco [...] Sign Reading Time Taken Comments Blood Pressure 130/55 10/28/2020 3:04 PM EDT Pulse 74 10/28/2020 3:04 PM EDT Temperature - - Respiratory Rate - - Oxygen Saturation 98% 10/28/2020 3:04 PM EDT Inhaled Oxygen Concentration - - Weight 72.5 kg (159 lb 12.8 oz) 10/28/2020 3:04 PM EDT Height 161.3 cm (5' 3.5) 10/28/2020 3:04 PM EDT Body Mass Index 27.86 10/28/2020 3:04 PM EDT documented in this encounter Progress Notes * Tory Chambers MD - 10/28/2020 3:20 PM EDT [facility] [place] [facility]-Follow Up Visit ID/PM Yessenia is a 70 y.o. 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 ??She was in 2002 and has had a significant other for many years. ??Her significant other (Deacon Peterson) lives in [place].?She has??5??children and 3 biologic and 8 step??grandchildren. ??She enjoys travel, walking, kayaking, reading, as well as gardening, friends and family ?? Present Illness:??Yessenia S Ag??is seen at the request of Juan Smith MD??for??follow-up??management of dyslipidemia, specifically??a diagnosis of familial hypercholesterolemia and the inability to tolerate statins??or PCSK9 inhibitors. ??On ezetimibe, bempedoic acid (Nexletol), and Vasepa?her LDL fell to 75 mg/dL. She discontinued the ezetimibe due to muscle aches but her LDL went up to 126 mg/dL. She agreed to add back ezetimibe at 5 mg every other day but has actually been taking 5 mg daily. Because Nexletol can increase uric acid we have also checked this. Unfortunately, Yessenia feelsthat the Nexletol gives her brain fog - she discontinued both ezetimibe and Nexletol immediately after having her blood work drawn. Yessenia presents today for assessment of her current lipid values as well as to discuss [...] recent lab work and has questions about readingsthat seem high normal or low normal that she would like to review. ?? ROS General: I have brain fog Cardiac: no chest issues MSK: no major issues ?? Medications Current Outpatient Medications Medication Sig Dispense Refill ??? Vascepa 1 gram Capsule TAKE 2 CAPSULES BY MOUTH TWICE DAILY 360 capsule 3 ??? bempedoic acid (Nexletol) 180 mg Tablet Take 180 mg by mouth daily. 90 tablet 3 ??? ezetimibe (Zetia) 10 mg Tablet 1/2 tablet daily 45 tablet 3 ??? finasteride (Proscar) 5 mg Tablet [...] azelastine (ASTELIN) 137 mcg (0.1 %) Aerosol, [place] 0 ??? PROVENTIL HFA 90 mcg/actuation HFA [...] Once daily ??? Mometasone (NASONEX) 50 mcg/Actuation [place] 2 Jupiter(s) each nostril, Nasal, Twice daily No current facility-administered medications for this visit. Allergies Bee pollen, Morphine, Sulfa (sulfonamide antibiotics), and Voltaren [diclofenac sodium] Physical Exam General: 70 year old woman with a BMI of 27.8 VS: BP 130/55 Pulse 74 Ht 161.3 cm (5' 3.5) Wt 72.5 kg (159 lb 12.8 oz) SpO2 98% BMI 27.86 kg/m?? Lungs: Clear Heart: S1S2, No MGR, RRR Psych: Appropriate affect but somewhat stressed about her inability to tolerate lots of medications Labs drawn October 2020 Total cholesterol 180 mg/dL Triglycerides 137 mg/dL HDL cholesterol 79 mg/dL LDL cholesterol 74 mg/dL Uric acid level normal LFTs normal slightly elevated conjugated bilirubin Hematocrit slightly low I have no prior levels Assessment Yessenia's lipids are under good control on the combination of Vascepa, Nexletol, and ezetimibe - unfortunately she feels she is having side effects. The side effects are somewhat vague - mostly brain fog. We agreed that in addition to continuing to work on following a prudent low-fat diet and getting regular exercise she will resume Vascepa at 4 grams per day, she will take 1/2 tablet of Nexletoldaily, and resume 1/2 tablet of ezetimibe daily. She will let me know if the brain fog returns onthis lower dose of Nexletol. With regard to Yessenia's questions on the calcium in her tendons and whether or not she should take magnesium and K2 supplementation I have explained that this is not my area of expertise. I suggested consideration of an endocrinology consultation. I reviewed all her lab work with her. I don't have any historical CBCs so I recommended that Yessenia speak to her primary care provider regarding her slightly low hematocrit. I explained that it would be important to know if this is a new drop or a stable level. I further explained that there are many reasons for a low hematocrit. She inquired as to whether or not she should take iron - I explained that she would need an evaluation before a recommendation could be made. Plan ?? Medication changes: reduce nexletol to 1/2 tablet daily ?? Investigations: labs and a visit in 6 months ?? Counseling: I explained my impression and answered all Yessenia's questions. Follow up 04/28/21 TORY CHAMBERS MD 10/29/2020 CC: Juan Smith MD documented in this encounter Plan of Treatment Upcoming Encounters Date Type Department Care Team (Late st Contact Info) Description 03/13/2024 9:45 AM EDT Office Visit Dermatology at [place] [address] [facility] [place] [address] Emiliano Salinas MD [address] [facility], [place] [place] [address] [phone] (work) documented as of this encounter Results * CT Heart For Coronary Calcium wo Contrast (Prepaid) (02/16/2022 10:54 AM EDT) Anatomical Region Laterality Modality Chest, Cardiac Computed Tomogra phy 02/16/2022 11:0 9 AM EDT Impressions 02/16/2022 3:30 PM EDT Coronary calcium score of 77, consistent with mild atherosclerotic plaque burden and 61%-ile rank based on age, race/ethnicity, and gender. Thank you for letting us participate in the care of this patient. ??If you are a health care provider and have any questions regarding this report, please contact the number below. ??For patients who have questions please contact the health home health aide caregiver that requested your imaging first. ? Electronically signed by: Celestina Murillo MD, [facility] ([phone]), at 02/16/2022 3:30 PM Narrative 02/16/2022 3:30 PM EDT EXAMINATION: CT HEART FOR CORONARY CALCIUM WO CONTRAST (PREPAID) CLINICAL HISTORY: Hyperlipidemia 120; patient with elevated LDL and side effects to medications COMPARISON: None. TECHNIQUE: 3.0 mm thick axial contiguous sections through the heart were obtained via ECG-gated axial mode acquisition without intravenous contrast. Craniocaudal coverage and [id number] were restricted to the heart. Post-processing was performed on an independent computer workstation consisting of coronary calcium scoring. FINDINGS: Coronary calcium score: Left main: ??Agatston score: 0; Volume score: 0; Mass: 0 mg Left anterior descending: ??Agatston score: 31; Volume score: 29; Mass: 7.13 mg Left circumflex: ??Agatston score: 0; Volume score: 0; Mass: 0 mg Right coronary: ??Agatston score: 46; Volume score: 46; Mass: 10.86 mg TOTAL: ??Agatston score: 77; Volume score: 75; Mass: 17.99 mg Atherosclerotic plaque burden, based on Agatston score: Mild Percentile rank, for subjects of the same age, gender, and race/ethnicity who are free of clinical cardiovascular disease and treated diabetes: 61%-ile. Estimated probability of a nonzero calcium score, based on age, race/ethnicity, and gender: 67% Reference: Chino RL, Rico H, Nella R, et al. ??Distribution of coronary artery calcium by race, gender, and age: results from the Multi-Ethnic Study of Atherosclerosis (DONALDSON). Circulation. 2006;113(1):30-37. Other cardiovascular structures: No significant findings. Other mediastinal structures: No significant findings Pulmonary parenchyma, airways, pleura: No significant findings. Upper abdomen: No significant findings Skeletal Structures: No significant findings. Procedure Note Celestina James MD - 02/16/2022 EXAMINATION: CT HEART FOR CORONARY CALCIUM WO CONTRAST (PREPAID) CLINICAL HISTORY: Hyperlipidemia 120; patient with elevated LDL and side effects to medications COMPARISON: None. TECHNIQUE: 3.0 mm thick axial contiguous sections through the heart were obtained via ECG-gated axial mode acquisition without intravenouscontrast. Craniocaudal coverage and osizb-ev-sgus were restricted to the heart. Post-processing was performed on an independent computer workstationconsisting of coronary calcium scoring. FINDINGS: Coronary calcium score: Left main: Agatston score: 0; Volume score: 0; Mass: 0 mg Left anterior descending: Agatston score: 31; Volume score: 29; Mass:7.13 mg Left circumflex: Agatston score: 0; Volume score: 0; Mass: 0 mg Right coronary: Agatston score: 46; Volume score: 46; Mass: 10.86 mg TOTAL: Agatston score: 77; Volume score: 75; Mass: 17.99 mg Atherosclerotic plaque burden, based on Agatston score: Mild Percentile rank, for subjects of the same age, gender, and race/ethnicitywho are free of clinical cardiovascular disease and treated diabetes:61%-ile. Estimated probability of a nonzero calcium score, based on age,race/ethnicity, and gender: 67% Reference: Chino RL, Gómez H, Nella R, et al. ??Distribution ofcoronary artery calcium by race, gender, and age: results from the Multi-EthnicStudy of Atherosclerosis (DONALDSON). Circulation. 2006;113(1):30-37. Other cardiovascular structures: No significant findings. Other mediastinal structures: No significant findings Pulmonary parenchyma, airways, pleura: No significant findings. Upper abdomen: No significant findings Skeletal Structures: No significant findings. IMPRESSION Coronary calcium score of 77, consistent with mild atherosclerotic plaqueburden and 61%-ile rank based on age, race/ethnicity, and gender. Thank you for letting us participate in the care of this patient. If youare a health care provider and have any questions regarding this report,please contact the number below. For patients who have questions please contactthe health home health aide caregiver that requested your imaging first. Tory Chambers MD IMG CT ORDERABLES documented in this encounter Visit Diagnoses Diagnosis Familial hypercholesterolemia Pure hypercholesterolemia Familial hypercholesterolemia Pure hypercholesterolemia documented in this encounter Care Teams Household Chores Relationship Specialty Start Date End Date Juan Smith MD [address] [place] [address] PCP - General Family Medicine 05/10/16 09/02/21 documented as of this encounter
--- OUTSIDE RECORDS SUMMARY | 2024-02-15 13:16 | XMS_ITS | Encounter Summary ---
[facility] Organization [facility] [place] [address] Care Team Providers Care Core Drill Operator Name Role Phone Mary Altamirano MD Primary Care Provider [phone] Reason for Referral * Diagnostic Test (Routine) - Closed Specialty Diagnoses / Procedures Referred By Contac t Referred To Contact Radiology Diagnoses Familial hypercholesterolemia Procedures CT Heart For Coronary Calcium wo Contrast (Prepaid) Tory Montalvo MD [facility] [place] [address] [facility] [place] [address] Referral ID Status Reason Start Date Expiration Date V isits Requested Visits Authorized [id number] Closed Specialty Service Requested 10/28/2020 04/30/2022 1 1 Reason for Visit * Diagnostic Test (Routine) - Closed Specialty Diagnoses / Procedures Referred By Contac t Referred To Contact Radiology Diagnoses Familial hypercholesterolemia Procedures CT Heart For Coronary Calcium wo Contrast (Prepaid) Tory Montalvo MD [facility] [place] [address] [facility] [place] [address] Referral ID Status Reason Start Date Expiration Date V isits Requested Visits Authorized [id number] Closed Specialty Service Requested 10/28/2020 04/30/2022 1 1 Encounter Details Date Type Department Care Team (Latest Contact Info) Description 02/16/2022 10:23 AM EDT - 02/16/2022 11:59 PM EDT Hospital Encounter CT Scan at [facility] [place] [address] Tory Montalvo MD Familial hypercholesterolemia Discharge Disposition: Home Social History Tobacco Use [...] End Date fluticasone propionate (Flonase) 50 mcg/actuation [place], Suspension Every 12 hours. 10/17/2020 EPINEPHrine 0.3 mg/0.3 mL Auto-Injector as needed. [...] (for MODERATE pain). 30 tablet 1 06/15/2015 escitalopram oxalate (LEXAPRO) 5 mg Tablet Take 15 mg by mouth daily. 01/25/2022 09/03/2022 ezetimibe (Zetia) 10 mg TabletIndications:Familial hypercholesterolemia 1/2 tablet daily 45 tablet 09/29/2021 08/01/2022 bempedoic acid (Nexletol) 180 mg TabletIndications:Familial hypercholesterolemia Take 1 tablet by mouth daily. 90 tablet 09/29/2021 08/01/2022 Vascepa 1 gram CapsuleIndications:Familial hypercholesterolemia TAKE 2 CAPSULES BY MOUTH TWICE DAILY 360 capsule 3 10/13/2020 05/21/2022 finasteride (Proscar) 5 mg TabletIndications:Hair thinning TAKE 1 TABLET BY MOUTH DAILY 30 tablet 5 04/28/2020 09/03/2022 sulfacetamide (KLARON) 10 % SuspensionIndications:Rosac ea Apply topically to face 1-2 times a day. 118 mL 3 03/12/2019 09/03/2022 TIROSINT 50 mcg Capsule Take 50 mcg by mouth daily. 1 02/10/2019 10/29/2022 traZODone (DESYREL) 50 mg Tablet Take 50 mg by mouth nightly. 10/29/2022 naproxen (NAPROSYN) 500 mg Tablet as needed. 0 11/27/2017 03/18/2023 olopatadine (PATANOL) 0.1 % Drops instill 1 drop into affected eye twice a day 0 07/05/2017 09/03/2022 azelastine (ASTELIN) 137 mcg (0.1 %) Aerosol, [place] 0 11/06/2017 0 09/03/2022 ASCORBATE CALCIUM (VITAMIN C ORAL) Take by mouth. 09/03/2022 ERGOCALCIFEROL, VITAMIN D2, (VITAMIN D ORAL) Take by mouth. multivitamin (THERAGRAN) tablet Take 1 tablet by mouth daily. 09/03/2022 fexofenadine (EVANGELINA) 180 mg tablet 180 mg, PO, Once daily 08/28/2010 09/03/2022 Mometasone (NASONEX) 50 mcg/Actuation [place] 2 [place](s) each nostril, Nasal, Twice daily 08/28/2010 09/03/2022 documented as of this encounter Plan of Treatment Upcoming Encounters Date Type Department Care Team (Late st Contact Info) Description 03/13/2024 9:45 AM EDT Office Visit Dermatology at [place] [address] [facility] [place] [address] Emiliano Salinas MD [address] [facility] [address], [address] [address] documented as of this encounter Procedures Procedure Name Priority Date/Time Associated Diagnosis Comments CT HEART FOR CORONARY CALCIUM WO CONTRAST (PREPAID) Routine 02/16/2022 10:54 AM EDT Familial hypercholesterolemia documented in this encounter Results * CT Heart For [...] have questions please contact the health home care rn that requested your imaging first. ? Narrative 02/16/2022 3:30 PM EDT EXAMINATION: CT HEART FOR CORONARY CALCIUM WO CONTRAST (PREPAID) CLINICAL HISTORY: Hyperlipidemia 120; patient with elevated LDL and side effects to medications COMPARISON: None. TECHNIQUE: 3.0 mm thick axial contiguous sections through the heart were obtained via ECG-gated axial mode acquisition without intravenous contrast. Craniocaudal coverage and xpizz-xw-dmgc were restricted to the heart. Post-processing was [...] on age, race/ethnicity, and gender: 67% Reference: Chion SESAY, Rico H, Nella R, et al. ??Distribution [...] mode acquisition without intravenouscontrast. Craniocaudal coverage and kmgzk-je-mokd were restricted to the heart. Post-processing was [...] age,race/ethnicity, and gender: 67% Reference: Chino RL, Rico H, Nella R, et al. ??Distribution ofcoronary [...] who have questions please contactthe health home care rn that requested your imaging first. Electronically signed by: Celestina Murillo MD, [facility] ([phone]), at 02/16/2022 3:30 PM Tory Montalvo MD IMG CT ORDERABLES documented in this encounter Visit Diagnoses Diagnosis Familial hypercholesterolemia Pure hypercholesterolemia documented in this encounter Care Teams Core Drill Operator Relationship Specialty Start Date End Date Mary Altamirano MD PCP - General Family Medicine 01/26/22 08/26/22 documented as of this encounter
--- OUTSIDE RECORDS SUMMARY | 2024-02-15 13:16 | XMS_ITS | Encounter Summary ---
Author Organization [facility] [place] [address] Care Team Providers Care Mortgage Loan Processor Name Role Phone Juan Smith MD Primary Care Provider [phone] Encounter Details Date Type Department Care Team (Latest Contact Info) Description 10/09/2019 2:00 PM EDT TH Visit (TeleHealth) Cardiology at [address] [phone] Tory Montalvo MD Familial hypercholesterolemia Social History [...] as of this encounter Progress Notes * Tory Montalvo MD - 10/09/2019 2:00 PM EDT Telephone visit Yessenia called to ask me to write her a prescription for Nexletol a new lipid altering medication that came on the market in August of this year. We had discussed it in her last visit. This drug has several warnings and she has been completely intolerant of statins. I asked my battery assembler dry cell, Basilia Mart to schedule Yessenia for a Telehealth visit to discuss her therapy. At her last visit she had the following lipid profile while on rosuvastatin 5 mg twice a week, Vasepa 4 capsules a day and ezetimibe 10 mg daily (her baseline LDL-C on no meds was 219 mg/dL) Cholesterol 252 ?? HDL 74 04/17/2019 ?? LDLCHOL 147 04/17/2019 ?? TRIG 157 04/17/2019 ? At that visit I noted that Yessenia had a good response to the combination of ezetimibe, rosuvastatin 5 mg twice weekly and Vascepa 4 g daily. Unfortunately, she was not tolerating the rosuvastatin. Shewaited until the visit to discontinue it but plans to stop the rosuvastatin now due to significant p roximal muscle aches that are intolerable to her. At that time she was willing to try atorvastatin 10 mg once a week, she was willing to continue theezetimibe and the Vascepa. However, Yessenia never started the atorvastatin and stopped the ezetimibe and has only been taking the Vasepa occasionally ?? Based on her recent stress test Yessenia has good cardiac function but she was noted to have coronary calcium indicating some underlying coronary disease. ?? At that visit in April we discussed bempedoic acid which has since come on the market in August the brand name is Nexletol. At her last visit I explained that bempedoic acid is an agent that inhibits ATP citrate lyase, an enzyme upstream from the HMG Co. a reductase enzyme (the target of statins). There is some suggestion based on clinical trials and its mechanism of action that bempedoic acid will not cause muscle aches. This however remains to be proven in larger clinical trials and when using this agent in clinical practice. Nonetheless, Yessenia was excited about the possibility of a new agent which will help lower her LDL further. Today I explained that Nexletol has several unusual warnings - risk of tendon rupture and an increased risk of gout (impacts the OAT2 transporter in the kidney) leading to an increase in uric acid and this can lead to gout in susceptible persons. I explained that I would like to get a uric acid level at baseline and a CMP to evaluate her kidney function etc. We will also get a baseline lipid panel as she is not taking atorvastatin or ezetimibe at this time she is also only occasionally taking the Vasepa. After she gets her labs she will re-start the ezetimibe 10 mg per day, and the Vasepa 4 grams daily. Once I have her labs I will call her - if her uric acid and kidney function are normal, I will recommend starting the Nexletol. She understands should she develop symptoms of gout or tendon pain she should stop the Nexletol. Follow up in 3 months Labs ordered This telehealth call was 15 minutes - I reviewed Yessenia's chart for 10 minutes prior to the call andspent 15 minutes charting our discussion documented in this encounter Plan of Treatment Upcoming Encounters Date Type Department Care Team (Late st Contact Info) Description 03/13/2024 9:45 AM EDT Office Visit Dermatology at [place] [address] [facility] [place] [address] Emiliano Salinas MD [address] [facility] [address], [place] [address] documented as of this encounter Visit Diagnoses Diagnosis Familial hypercholesterolemia Pure hypercholesterolemia documented in this encounter Care Teams Mortgage Loan Processor Relationship Specialty Start Date End Date Juan Smith MD [address] [place] [address] PCP - General Family Medicine 05/10/16 09/02/21 documented as of this encounter
--- OUTSIDE RECORDS SUMMARY | 2024-02-15 13:17 | XMS_ITS | Encounter Summary ---
Author Organization [facility] Address [facility] [place] [address] Care Team Providers Care Sequins Spooler Name Role Phone Juan Smith MD Primary Care Provider Reason for Visit * Reason Comments Procedure Encounter Details Date Type Department Care Team (Late st Contact Info) Description 03/12/2019 3:15 PM EDT Office Visit Dermatology at [facility] [address] [place] [phone] Vern Salmeron MD [facility] [address] [address] Encounter for cosmetic procedure Social History Tobacco [...] as of this encounter Progress Notes * Vern Salmeron MD - 03/12/2019 3:15 PM EDT Provider: Raymundo Salmeron M.D. ([id number]) 1950 CHIEF PROBLEM: 1. Furrowing and wrinkling of facial skin 2. Botox intramuscular procedure HISORY/DISCUSSION: This patient has had botox treatment in the past, liked the results and is here today for a follow-up injection as planned. Re-discussed treatment. 50 unit vial used, draw up sterile in front of patient, used immediately, wasted discarded. Re-discussed temporary muscle muscle paralysis, which is safe systemically, usually lasts 3-6 months and decreases the appearance of deep wrinkles caused by muscle contraction. Over time, with repeated injections, these furrows will fade, become less noticeable and may require less Botox. Complications are uncommon but included pain at the injection site, bruising, headaches, ptosis and partial response. The patient knows that the purpose of Botox is strictly a cosmetic procedure, aware insurances willnot cover these procedures, and we will not submit it to the company. The patient will have to pay for the procedure, at the time of the visit. The charge depends on the amount of botox used and the areas treated. We discussed the patient's wishes and expectations. EXAMINATION: Focused examination of the face. Botox with less of a clinical effect. Increased furrowing, hyperlinearity and wrinkling of the glabella & forehead & crows feet. DIAGNOSIS/ASSESSMENT: 1. Increased facial furrowing, hyperlinearity and wrinkles of the amenable to Botox. PLAN/PROCEDURE: Botox Injection 1. Discussed all new botox questions. 2. Discussed amount/units of Botox required today. Proceeded with 40 units of Botox injected into the glabella & forehead & crows feet. 3. No complications. Will call the clinic with concerns. Follow up: 3-4 months Cosmetic Cost today : $400 paid upon exiting clinic today. I am documenting this encounter acting as the scribe for and in the presence of VERITO Gamboa LPN I performed the above scribed service and agree with the accuracy of the documentation in this encounter, MD Raymundo Aldridge M.D. Section of Dermatology documented in this encounter Plan of Treatment Upcoming Encounters Date Type Department Care Team (Late st Contact Info) Description 03/13/2024 9:45 AM EDT Office Visit Dermatology at [facility] [address] [place] [address] Emiliano Salinas MD [address], [place] [address] documented as of this encounter Visit Diagnoses Diagnosis Encounter for cosmetic procedure documented in this encounter Administered Medications Inactive Administered Medications - up to 3 most recent administrations Medication Order MAR Action Action Date Dose Rate Site Botulinum Toxin Type A SolR 50 Units 50 Units, Intramuscular, ONCE, 1 dose, On Maria L 03/12/19 at 1515, Routine Given 03/12/2019 3:21 PM EDT 50 Units documented in this encounter Care Teams Sequins Spooler Relationship Specialty Start Date End Date Juan Smith MD [address] [place] [address] PCP - General Family Medicine 05/10/16 09/02/21 documented as of this encounter
--- OUTSIDE RECORDS SUMMARY | 2024-02-15 13:17 | XMS_ITS | Encounter Summary ---
Author Organization [facility] [place] [address] Care Team Providers Care Domestic Freight Forwarder Name Role Phone Juan Smith MD Primary Care Provider [phone] Encounter Details Date Type Department Care Team (Late st Contact Info) Description 06/14/2017 Telephone Dermatology at [facility] [address] [place] [phone] Vern Salmeron MD [facility] [address] [address] Social History Tobacco Use Types Packs/Day Years Used Date Smoking Tobacco: Never Smokeless Tobacco: Never Alcohol Use Standard Drinks/Week Comments No 0 (1 standard drink = 0.6 oz pur e alcohol) Sex and Gender Information Value Date Recorded Sex Assigned at Not on file Gender Identity Not on file Sexual Orientation Not on file documented as of this encounter Miscellaneous Notes * Telephone Encounter - Nicki Merchant - 06/14/2017 1:59 PM EST Patient received bill after payment for visit in February 2017, patient states she has made a payment of $350 and wants a refund, please call patient to discuss, can be reached on primary number. documented in this encounter Plan of Treatment Upcoming Encounters Date Type Department Care Team (Late st Contact Info) Description 03/13/2024 9:45 AM EDT Office Visit Dermatology at [place] [address] [place] [address] Emiliano Salinas MD [address], [place] [address] documented as of this encounter Visit Diagnoses Not on filedocumented in this encounter Care Teams Domestic Freight Forwarder Relationship Specialty Start Date End Date Juan Smith MD [facility] [place] [address] [address] PCP - General Family Medicine 05/10/16 09/02/21 documented as of this encounter
--- OUTSIDE RECORDS SUMMARY | 2024-02-15 13:17 | XMS_ITS | Encounter Summary ---
Author Organization [facility] Address [facility] [place] [address] Care Team Providers Care Release Manager Name Role Phone Juan Smith MD Primary Care Provider [phone] Encounter Details Date Type Department Care Team (Late st Contact Info) Description 03/16/2019 Telephone Dermatology at [facility] [address] [place] [phone] Vern Salmeron MD [facility] [place] [address] Social History Tobacco Use Types Packs/Day Years [...] Telephone Encounter - Jackelin Solomon LPN - 03/16/2019 4:55 PM EDT Patient had called clinic to report that her face was still puffy and swollen S/P laser treatment on 10/3/19. She states it has been slowly improving but remains puffy. She will call the clinic on Saturday if this persists. We also reviewed holding the use of her Klaron for a few days to allow herface to heal from the laser, she will be in touch if swelling persists. * Telephone Encounter - Elina Arias - 03/16/2019 3:51 PM EDT Patient contacted the clinic today w/ following up questions following her treatments on 03/12. Patient states she is still swollen and is wondering how long this will last. She is also wondering how long she should plan to be using the sulfacetamide (KLARON) 10 % Suspension prescribed on 03/12. Patient can be reached at [phone] documented in this encounter Plan of Treatment Upcoming Encounters Date Type Department Care Team (Late st Contact Info) Description 03/13/2024 9:45 AM EDT Office Visit Dermatology at [place] [address] [place] [address] Emiliano Salinas MD [address] [facility], [place] [address] documented as of this encounter Visit Diagnoses Not on filedocumented in this encounter Care Teams Release Manager Relationship Specialty Start Date End Date Juan Smith MD [facility] [place] [address] PCP - General Family Medicine 05/10/16 09/02/21 documented as of this encounter
--- OUTSIDE RECORDS SUMMARY | 2024-02-15 13:17 | XMS_ITS | Encounter Summary ---
Author Organization [facility] Address [facility] [place] [address] Care Team Providers Care Car Dumper Operator Helper Name Role Phone Juan Smith MD Primary Care Provider [phone] Encounter Details Date Type Department Care Team (Latest Contact Info) Description 12/30/2017 3:30 PM EDT Office Visit Weight and Wellness at [address] [phone] Natalie Stephens MD [facility] [place] [address] Class 1 obesity due to excess calories with serious comorbidity and body mass index (BMI) of 30.0 to 30.9 in adult; Hyperlipidemia, unspecified hyperlipidemia type Social History Tobacco Use Types Packs/Day [...] Sign Reading Time Taken Comments Blood Pressure 123/69 12/30/2017 4:16 PM EDT Pulse 64 12/30/2017 4:16 PM EDT Temperature - - Respiratory Rate 16 12/30/2017 4:16 PM EDT Oxygen Saturation - - Inhaled Oxygen Concentration - - Weight 78.7 kg (173 lb 6.4 oz) 12/30/2017 4:16 P M EDT Height 161.3 cm (5' 3.5) 12/30/2017 4:16 PM EDT Body Mass Index 30.23 12/30/2017 4:16 PM EDT documented in this encounter Patient Instructions * Patient Instructions* Natalie Stephens MD - 12/30/2017 3:55 PM EDT Continue bupropion 150 mg daily Mindful eating throughout your [place] trip, with a goal of about 1400 - 1800 calories per day Plan to reduce alcohol intake to 1 drink per day At least 30 minutes of exercise, 5 days per week Consider joining the Healthy Lifestyles Program in the fall Follow up with our dietitian Mary and Dr Stephens in 3 months, sooner as needed HEALTHY LIFESTYLES PROGRAM This is a year-long intensive lifestyle modification program offered by the [facility]. The program begins with 16 weekly classes (taught by our health coaches, dietitians and nurses) that focus on healthy eating, healthy movement and healthy living. These classes involve a combination of education, empowerment and accountability, and are designed to help people make--and sustain--healthy lifestyle changes. Participants are seen regularly by our physicians and dietitians throughout the 12 month program; our physicians supervise the program and may prescribe weight loss medications as needed, while our dietitians make tailored dietary recommendations. Participants also have access to our health coaches--who assist when you encounter barriers to progress--throughout the program. In addition, we offer individual and group-based sessions with our clinical psychologist to addressemotional eating, binge eating, and food cravings. Healthy cooking classes are also available. This program is designed to support highly-motivated individuals, and requires a significant commitment of time and energy. In order to participate, you must be able to commit to attending at least 13 of the 16 scheduled classes, and must also attend all scheduled appointments with our physicians and dietitians. documented in this encounter Progress Notes * Natalie Stephens MD - 12/30/2017 3:30 PM EDT [facility] Healthy Living Clinic Visit Patient Name: Yessenia Luong Date of : 1950 Age: [address] Juan Smith MD Thank you for referring Yessenia Luong to the [facility] Healthy Living Clinic for consultation regarding obesity. CHIEF COMPLAINT: Follow-up for Obesity INTERVAL HISTORY / PROGRESS TOWARD GOALS: [x] I reviewed past / interim records including notes and labs. Last seen by me on 12/06/17, and by our dietitian and health ice skating coach earlier today. She is participating in the Medical Management Pathway at this time. Weight has decreased 1 pound since our last visit. At that time, goals included faithful food tracking, decreased alcohol intake, and at least 30 minutes of exercise, 5 days per week. She was started on bupropion 75 mg PO daily and increased to 150 mg PO daily. She is going to [facility] for 3 weeks starting next week. She reports that she has been tracking her food intake through the [employer], and found that she eats between 2500 - 3500 calories per day--it's just a constitution party all the time. She is interested in limiting portion size, increasing intake of fruits and vegetables, and reducing alcohol intake. She reports that she exercises consistently 30 minutes per day--hiking, walking, biking, kayaking. She plans to join a gym and ski in the winter. 24 hour diet recall: - Breakfast: Granola with almond milk, cup of coffee with almond milk - Lunch: Lobster roll - Dinner: Lobster salad - Snacks: None - Drinks: Multiple alcoholic beverages--arlene, rum and tonic - Dessert: maple whoopie pie, cookie PREVIOUS LABS: No results found for: CHLPL No results found for: HDL No results found for: LDLCHOL No results found for: TRIG No results found for: CHOLHDL Lab Results Component Value Date HA1C 5.6 12/06/2017 No results found for: GLUCFASTING Lab Results Component Value Date AST 19 12/06/2017 ALT 18 12/06/2017 [facility] Followup Responses 12/06/2017 URICA - Readiness Score 12.66 (Preparation State) WEL-SF Total Scores 54 PROMIS 6B Scores 45.4 PHQ-2 SubScore 2 (Brief screen negative) GAD2 Subscore 2 (Brief screen negative) PROMIS 10 Physical Scores 47.7 PROMIS 10 Mental Scores 43.5 IPAQ - SF Scores 3 Total REAP-S Scores 32 TFEQ - Uncontrolled Eating (UE) 44.44 TFEQ-Cognitive Restraint (CR) 66.66 TFEQ-Emotional Eating 66.66 Food Insecurity Score 2 Days absent from work/school because of weight None Worried food would run out before we got money to buy more Never true Food didnt last; no money to get more Never true REVIEW OF SYSTEMS: see above HPI for additional pertinent +/- findings Constitutional: NL appetite and energy. No daytime tiredness. Psychiatric: No worsened anxiety, depression VITAL SIGNS: Vitals: 12/30/17 1616 BP: 123/69 Pulse: 64 Resp: 16 Weight: 78.7 kg (173 lb 6.4 oz) Height: 161.3 cm (5' 3.5) Body mass index is 30.23 kg/(m^2). Last 5 weight values: Wt Readings from Last 5 Encounters: 12/30/17 78.7 kg (173 lb 6.4 oz) 12/30/17 78.7 kg (173 lb 6.4 oz) 12/06/17 79.3 kg (174 lb 14.4 oz) 02/06/16 77.6 kg (171 lb) 06/14/15 85.3 kg (188 lb 0.8 oz) PHYSICAL EXAM: Gen: Alert and active, NAD. + central adiposapthy Skin: Warm, pink, no rashes HEENT: NC/AT, EOMI, clear conjunctiva, MMM Neck: supple and thick Neuro: Alert and oriented Psych: NL affect today SUMMARY OF VISIT AND RECOMMENDATIONS: Yessenai Luong was seen in follow up today and an updated medical, diet and activity review was completed. Additional goals were set for changes in health habits (see below) as was a plan for evaluation and treatment of obesity related co-morbidities. Medical issues and plan: Class I Obesity: ?? Medical Management: The patient is currently participating in the Medical Management Pathway at the [facility]. She is gaining insights into food choices, mindless eating and the role of calorie countingin weight loss. She is considering joining the Healthy Lifestyles Program in the fall, if her schedule will allow it. ?? Goal setting: ?? Continue bupropion 150 mg daily ?? Mindful eating throughout your [place] trip, with a goal of about 1400 - 1800 calories per day ?? Plan to reduce alcohol intake to 1 drink per day ?? At least 30 minutes of exercise, 5 days per week Hyperlipidemia: ?? Nutrition and activity recommendations to promote healthy weight ?? Continue evolocumab per cardiology THERESA: ?? Continue CPAP as prescribed F/u in: Per her preference, in 3 months, sooner as needed I spent a total of 30 minutes with the patient 20 minutes of which were spent in [id number] discussion/counseling re obesity, nutrition and activity as well as obesity related co-morbidities documented in this encounter Plan of Treatment Upcoming Encounters Date Type Department Care Team (Late st Contact Info) Description 03/13/2024 9:45 AM EDT Office Visit Dermatology at [place] [address] [place] [phone] Emiliano Salinas MD [address] [facility] [place] [address] documented as of this encounter Visit Diagnoses Diagnosis Class 1 obesity due to excess calories with serious comorbidity and body mass index (BMI) of 30.0 to 30.9 in adult Hyperlipidemia, unspecified hyperlipidemia type documented in this encounter Care Teams Car Dumper Operator Helper Relationship Specialty Start Date End Date Juan Smith MD [facility] [place] [phone] PCP - General Family Medicine 05/10/16 09/02/21 documented as of this encounter
--- OUTSIDE RECORDS SUMMARY | 2024-02-15 13:17 | XMS_ITS | Encounter Summary ---
Author Organization [facility] [place] [address] Care Team Providers Care Investigator Name Role Phone Chantell Sharma APRN Primary Care Provider [phone] Reason for Visit * Auth/Cert Specialty Diagnoses / Procedures Referred By Veronica t Referred To Contact Diagnoses Hypertrophy of breast Procedures PRO REDUCTION OF LARGE BREAST PRO EXCISE EXCESS SKIN TISSUE, ABDOMEN PRO SUCT SARAH LIPECTOMY, TRUNK 96293 BILAT 70915 ALSO BILAT 55964 Referral ID Status Reason Start Date Expiration Date Visits Re quested Visits Authorized [id number] 1 1 Encounter Details Date Type Department Care Team (Late st Contact Info) Description 06/14/2015 4:01 PM EST Anesthesia [place] [address] Sunita Washington MD [facility] [address] [place] [address] Sergey Munoz CRNA [facility] [place] [address] Anesthesia Record Procedure Summary Procedure Name Responsible Anesthesiologist Anesthesia Start Time Anesthesia Stop Time REDUCTION MAMMOPLASTY, ADAM (WRVU 16.03) (Bilateral: Breast) Sunita Washington MD 06/14/15 1601 06/14/15 195 Events Date Time Event Comment 06/14/2015 1508 1601 Start 1604 AN Verify 1605 An Start Data 1612 An Induction 1615 An Intubation 1620 Anesthesia Ready 1621 Break/Relief In Naye Reynolds Elpidio de los santos MD 1640 Break/Relief Out 1717 Quick Note One of surgical staff is leaning on NIBP cuff 1930 Quick Note TOF check. Sust ained tetanus. 1937 Extubation/LMA Out 194 an stop data 1950 Recovery or ICU Handoff Terri ent care was transferred to the destination unit staff after review of the patient's medical history, current anesthetic/surgical status and plan, according to the Provider Handoff Checklist. 1951 Stop Meds Name Total Midazolam 2 mg fentaNYL 250 mcg IV Lidocaine 40 mg Propofol 160 mg Rocuronium 100 mg ePHEDrine 10 mg Ondansetron 8 mg Dexamethasone 4 mg Neostigmine 5 mg Glycopyrrolate 1 mg ceFAZolin 4 g Propofol INF 728.46 mg HYDROmorphone 1.2 mg lactated ringers infusion 1,000 mL 2,300 mL * Agents Name O2 Air Sevoflurane (et) * Blood No blood administrations on file. Lines, Drains, and Airways Type Details Placement Removal Urethral Catheter 06/14/15; Surgery lo nger than 2 hours, Abdominal surgery; indwelling double lumen catheter; 100% silicone; 16; inserted at this facility; 1; 5; 10; none; drainage bag to dependent drainage; inserted without difficulty by José Antonio Castanon RN, for immediate return of clear yellow urine 06/14/15 0000 by Florina Castanon RN Drain/Device Site 06/14/15; Left; lin st; collapsible closed device; 15 beulah, marked #1 06/14/15 0000 by Florina Castanon RN Drain/Device Site 06/14/15; Right; ellis ast; collapsible closed device; 15 beulah, marked #3 06/14/15 0000 by Florina Castanon RN Drain/Device Site 06/14/15; Left; abdo men; collapsible closed device; 19F beulah, marked #2 06/14/15 0000 by Florina Castanon RN Drain/Device Site 06/14/15; Right; abdomen; collapsible closed device; 19 fr beulah 06/14/15 0000 by Florina Castanon RN Incision 06/14/15; breast; 02/05/22 (LDA cleanup utility RA#[id number]); 1715 (LDA cleanup utility RA#[id number]) 06/14/15 0000 by Florina Castanon RN 02/05/22 1715 by Sixto Massey Incision 06/14/15; breast; 02/05/22 (LDA cleanup utility RA#[id number]); 1715 (LDA cleanup utility RA#[id number]) 06/14/15 0000 by Florina Castanon RN 02/05/22 1715 by Sixto Massey Incision 06/14/15; abdomen; 02/05/22 (LDA cleanup utility RA#[id number]); 1715 (LDA cleanup utility RA#[id number]) 06/14/15 0000 by Florina Castanon RN 02/05/22 1715 by Sixto Massey (RETIRED) Peripheral IV Line - Single Lumen 06/14/15; 1245; metacarpal vein left (top of hand); [id number] catheter system; 18 gauge; BSmithRN; intradermal injection; 06/15/15 06/14/15 1245 by Jesus Davis RN 06/15/15 0000 by Janet Ingram RN ETT Mask Ventilation: Adjunct (2); ETT Type: Cuffed, Oral; ETT Size: 7 mm; Mac Blade: 3; Notes: Asleep, Pre-O2, Stylette; Attempts: 1; Laryngoscopy Grade: 1; ETT Placement Verified By: Auscultation, Capnometry, Visual; Secured at Teeth: 20 cm; Inserted by: ZAY Munoz; Removal Date: 06/14/15; Removal Time: 193606/14/151611 by Sergey Munoz CRNA 06/14/151936 by Sunita Washington MD documented in this encounter Social History Tobacco Use Types Packs/Day Years Used Date Smoking Tobacco: Never Smokeless Tobacco: Never Alcohol Use Standard Drinks/Week Comments No 0 (1 standard drink = 0.6 oz pur e alcohol) Sex and Gender Information Value Date Recorded Sex Assigned at Not on file Gender Identity Not on file Sexual Orientation Not on file documented as of this encounter OR Notes * Anesthesia Postprocedure Evaluation - Sunita Washington MD - 06/15/2015 12:23 PM EST [facility] [place]esthesiology Post-procedure Note Patient: Yessenia Luong Procedure Summary Date Anesthesia Start Anesthesia Stop Room / Location 06/14/15 1601 1951 [facility] MAIN OR Procedure Diagnosis Surgeon Responsible Provider REDUCTION MAMMOPLASTY, ADAM (Bilateral Breast); ABDOMINOPLASTY (N/A Abdomen); SUCTION ASSISTED LIPECTOMY,TRUNK (Bilateral Trunk) No diagnosis on file. Carlee Marvin MD O'Flaherty, Jennifer E, MD (Breast Hypertrophy) Last (1hr) Vitals: BP Temp Pulse Resp SpO2 Patient Location: Floor Level of Consciousness: Awake and Alert Pain Management: Satisfactory Analgesia PONV: PONV Resolved with Rx Cardiovascular Status: At Baseline Respiratory Status: At Baseline Postoperative Fluid Status: Intravascular EUvolemia Possible Anesthetic Complications: NONE apparent at time of evaluation Final Primary Anesthesia Type: General (The anesthetic type performed was the same as planned.) Comments: Patient is doing well postop- tolerating PO and ready to get OOB. No apparent anesthetic complications. * Anesthesia Preprocedure Evaluation - Naye Byrnes MD - 06/14/2015 12:19 PM EST Images from the original note were not included. Pre-Anesthesia Evaluation for: Yessenia Luong a 65 y.o. female. Procedure(s): REDUCTION MAMMOPLASTY, ADAM ABDOMINOPLASTY SUCTION ASSISTED LIPECTOMY,TRUNK Patient Active Problem List Diagnosis ??? Macromastia ??? Allergy to insect stings ??? Allergic rhinoconjunctivitis ??? Mild intermittent asthma ??? Environmental allergies ??? Chronic urticaria ??? Solar lentigo ??? Female pattern alopecia ??? Urinary incontinence, urge ??? Osteoarthritis ??? Hypercholesteremia ??? THERESA (obstructive sleep apnea) ??? Androgenetic alopecia ??? Rosacea Past Medical History Diagnosis Date ??? 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 Rosacea 04/24/2011 ??? THERESA (obstructive sleep apnea) 11/21/2011 moderate, sleep mouth guard ??? Urinary incontinence, urge 01/08/2012 ??? Seasonal allergies ??? Hypercholesteremia ??? Hypothyroidism Past Surgical History Procedure Laterality Date ??? Vaginal prolapse repair 04/11/2007 Dr. Castaneda, at [facility] ??? section 1979, 1981 Complciated by infection ??? Miguel and bso 1988 Allergy to progesterone ??? Tonsillectomy ??? Appendectomy History Substance Use Topics ??? Smoking status: Never Smoker ??? Smokeless tobacco: Never Used ??? Alcohol Use: No History Drug Use No Allergies Allergen Reactions ??? Bee Pollen ??? Morphine Diarrhea and GI upset ??? Sulfa (Sulfonamide Antibiotics) ??? Voltaren [Diclofenac Sodium] Medications: MAR and/or home medications have been reviewed. Physical Exam: There were no vitals filed for this visit. There is no weight on file to calculate BMI. Airway Assessment: Mallampati: III TM distance: >3 FB Neck ROM: full No airway mgmt hx in EDH. Cardiovascular Assessment: Pulmonary Assessment: Dental Assessment: Misc Assessment: Patient is wearing No contact(s). IV access: Peripheral line Other exam findings: 18 g PIV left arm Anesthesia Plan: ASA 2 General, with a(n) intravenous induction 65 yo F for bilateral reduction mammoplasty, bilateral axillary liposuction, and abdominoplasty. Obesity - BMI 32 Asthma - prn symbicort, last 2 weeks ago THERESA - uses mouthguard, no CPAP Allergic rhinitis HLD Hypothyroid RLS Anxiety Rosacea Non-smoker No URI No GERD No problems w/ prior anesthetics Allergies: Beesting, Sulfa, Morphine, Voltaren, Statins, Amoxacillin?, Augmentin? Wt: 85.4 kg, BMI 32.4 NPO: solids 2000, liquids 1200(blk coffee) Code: Full No labs or ECG in EDH. Plan GAET, std ASA monitors, adequate IV access, monzon(est 4.5 hrs). Region - Other Informed Consent: Anesthetic plan and risks discussed with patient. Use of blood products discussed with patient whom consented to blood products. Plan discussed with CLOTH INSPECTOR. PAT Staff Note documented in this encounter Plan of Treatment Upcoming Encounters Date Type Department Care Team (Late st Contact Info) Description 03/13/2024 9:45 AM EDT Office Visit Dermatology at [place] [address] [place] [address] Emiliano Salinas MD [address] [place] [address] documented as of this encounter Visit Diagnoses Not on filedocumented in this encounter Administered Medications Inactive Administered Medications - up to 3 most recent administrations Medication Order MAR Action Action Date Dose Rate Site ceFAZolin (ANCEF) 1g in dextrose 5% 50mL PRN, Starting on Sat06/14/15 at 1621, Until Sat06/14/15 at 1957, Administer over 30 Minutes, Anesthesia Intra-op Given 06/14/2015 7:21 PM EST 2 g Given 06/14/2015 4:21 PM EST 2 g dexamethasone (DECADRON) injection PRN, Starting on Sat06/14/15 at 1642, Until Sat06/14/15 at 1957, Anesthesia Intra-op, Routine Given 06/14/2015 4:42 PM EST 4 mg ePHEDrine 5 mg/mL multi-dose injection PRN, Starting on Sat06/14/15 at 1724, Until Sat06/14/15 at 1957, Anesthesia Intra-op, Routine Given 06/14/2015 5:58 PM EST 5 mg Given 06/14/2015 5:24 PM EST 5 mg fentaNYL 50 mcg/mL multi-dose injection PRN, Starting on Sat06/14/15 at 1621, Until Sat06/14/15 at 1957, Pain, Anesthesia Intra-op, Routine Given 06/14/2015 5:05 PM EST 100 mcg Given 06/14/2015 4:53 PM EST 50 mcg Given 06/14/2015 4:21 PM EST 50 mcg glycopyrrolate (ROBINUL) multi-dose injection PRN, Starting on Sat06/14/15 at 1712, Until Sat06/14/15 at 1957, Anesthesia Intra-op, Routine Given 06/14/2015 7:28 PM EST 0.8 mg Given 06/14/2015 5:12 PM EST 0.2 mg HYDROmorphone (DILAUDID) injection PRN, Starting on Sat06/14/15 at 1844, Until Sat06/14/15 at 1957, Pain, Anesthesia Intra-op, Routine Given 06/14/2015 7:13 PM EST 0.4 mg Given 06/14/2015 7:09 PM EST 0.4 mg Given 06/14/2015 6:44 PM EST 0.4 mg lactated ringers infusion 1,000 mL 1,000 mL, at 100 mL/hr, Intravenous, CONTINUOUS, Starting on Sat06/14/15 at 1245, Until Sat06/14/15 at 2159, Day of Surgery (Day of Procedure) New Bag 06/14/2015 7:23 PM EST New Bag 06/14/2015 5:24 PM EST New Bag 06/14/2015 12:47 PM EST 1,000 mLs 100 mL/hr lidocaine (PF) (XYLOCAINE) 100 mg/5 mL (2 %) injection PRN, Starting on Sat06/14/15 at 1610, Until Sat06/14/15 at 1957, Anesthesia Intra-op, Routine Given 06/14/2015 4:12 PM EST 40 mg midazolam (PF) (VERSED) 1 mg/mL multi-dose injection PRN, Starting on Sat06/14/15 at 1601, Until Sat06/14/15 at 1957, Sleep, Anesthesia Intra-op, Routine Given 06/14/2015 4:01 PM EST 2 mg neostigmine (PROSTIGMINE) multi-dose injection PRN, Starting on Sat06/14/15 at 1928, Until Sat06/14/15 at 1957, Anesthesia Intra-op, Routine Given 06/14/2015 7:28 PM EST 5 mg ondansetron (ZOFRAN) injection PRN, Starting on Sat06/14/15 at 1919, Until Sat06/14/15 at 1957, Nausea, Anesthesia Intra-op, Routine Given 06/14/2015 7:19 PM EST 8 mg propofol (DIPRIVAN) 10 mg/mL bolus injection (Anesthesia) PRN, Starting on Sat06/14/15 at 1610, Until 06/14/15 at 1957, Anesthesia Intra-op Given 06/14/2015 4:12 PM EST 160 mg propofol (DIPRIVAN) infusion CONTINUOUS PRN, Starting on Sat06/14/15 at 1642, Until Sat06/14/15 at 1957, Anesthesia Intra-op, Routine Rate/Dose Change 06/14/2015 5:30 PM EST 50 mcg/kg/min 25.6 mL/hr New Bag 06/14/2015 4:42 PM EST 30 mcg/kg/min 15.4 mL/hr rocuronium (ZEMURON) multi-dose injection PRN, Starting on Sat06/14/15 at 1610, Until Sat06/14/15 at 195, Anesthesia Intra-op, Routine Given 06/14/2015 6:15 PM EST 20 mg Given 06/14/2015 5:31 PM EST 30 mg Given 06/14/2015 4:13 PM EST 50 mg documented in this encounter Care Teams Investigator Relationship Specialty Start Date End Date Chantell Sharma APRN PCP - General 07/09/13 05/09/16 documented as of this encounter
--- OUTSIDE RECORDS SUMMARY | 2024-02-15 13:17 | XMS_ITS | Encounter Summary ---
Author Organization [facility] [place] [address] Care Team Providers Care [employer] Program Coordinator Name Role Phone Chantell Sharma APRN Primary Care Provider [phone]- [phone] Reason for Visit * Reason Comments Follow Up Surgery BBR and abdominoplas ty 06/14/15 Encounter Details Date Type Department Care Team (Latest Contact Info) Description 02/06/2016 8:45 AM EDT [place] [address] Carlee Marvin MD [facility] [place] [address] Macromastia; Status post abdominoplasty Social History Tobacco Use Types Packs/Day Years [...] Sign Reading Time Taken Comments Blood Pressure - - Pulse - - Temperature - - Respiratory Rate - - Oxygen Saturation - - Inhaled Oxygen Concentration - - Weight 77.6 kg (171 lb) 02/06/2016 9:01 AM EDT Height 161.3 cm (5' 3.5) 02/06/2016 9:01 AM EDT Body Mass Index 29.82 02/06/2016 9:01 AM EDT documented in this encounter Progress Notes * Carlee Marvin MD - 02/06/2016 8:45 AM EDT Plastic Surgery Post Op Note Reason for visit: F/U status post procedure Date of surgery: 06/14/15 Procedure(s): Bilateral breast reduction (Fuentes) with axillary liposuction and abdominoplasty with rectus plication Complications: None reported Pain: 07/20 HPI: Pt reports she has been well since her last visit. She reports that she is increasing her activity level and is walking and kayaking. She is beginning yoga training. She reports she continues tohave pain along her breast IMF incisions and she reports that she develops swelling in her abdomen when she over eats. Examination: Patient is alert, conversant, comfortable, ambulating Abdomen: Abdominal scar is pale, soft, flat No evidence of fluid collection No hernia or bulge No signs of infection Umbilicus intact. Good abdominal contour. 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 NAC sensate bilateral Good breast symmetry in volume and size. Impression: Yessenia Luong is a 65 y.o. female who was seen today for follow-up after the above procedure. Please see the operative note for details. She is healing well to date. We discussed that her incisions are now well healed, she is not at risk of disrupting her incisions with exercise. I advised that some discomfort could be expect up to 1 year as her scars remodel, I recommended she limit activity for pain. In regards to abdominal swelling, I do not see any evidence of fluid collectionor hernia. I recommended that she follow up with her PCP to rule out any inflammatory conditions ordietary recommendations. In regards to her abdominal dog ears, we discussed excision in minor surgery if this is bothersome to her. At this time she prefers to wait until June before proceeding. Plan: 1. Follow up 6 months 2. Follow up with PCP in regards to abdominal swelling 3. Pricing will be provided for excision of abdominal dog ears 4. No activity restrictions, recommend gradual increase of activity, as tolerated MNS Procedure: excision abdominal dog ears Timeframe: Summer 2016 Time allotted: 60 mins CPT :48366 x 2 Follow up: 1 week with Coretta Guadarrama am acting as scribe for Dr Marvin. All work documented was performed by Dr Marvin. ???I performed the above scribed service and agree with the accuracy of the note?? Carlee Marvin MD documented in this encounter Plan of Treatment Upcoming Encounters Date Type Department Care Team (Late st Contact Info) Description 03/13/2024 9:45 AM EDT Office Visit Dermatology at [place] [address] [place] [address] Emiliano Salinas MD [address] [facility] [place] [address] documented as of this encounter Visit Diagnoses Diagnosis Macromastia Hypertrophy of breast Status post abdominoplasty Other postprocedural status documented in this encounter Care Teams [employer] Program Coordinator Relationship Specialty Start Date End Date Chantell Sharma APRN PCP - General 07/09/13 05/09/16 documented as of this encounter
--- OUTSIDE RECORDS SUMMARY | 2024-02-15 13:17 | XMS_ITS | Encounter Summary ---
Author Organization [facility] [place] [address] Care Team Providers Care Illusionist Name Role Phone Juan Smith MD Primary Care Provider [phone] Reason for Visit * Reason Onset Date Comments Medication Refill 12/27/2017 Encounter Details Date Type Department Care Team (Late st Contact Info) Description 12/27/2017 Refill Weight and Wellness at [address] [address] Natalie Stephens MD [facility] [place] [address] Obesity, unspecified classification, unspecified obesity type, unspecified whether serious comorbidity present Social History Tobacco Use Types Packs/Day Years [...] as of this encounter Miscellaneous Notes * Addendum Note - Natalie Stephens MD - 12/27/2017 8:24 AM EDTAddended by: NATALIE STEPHENS on: 12/27/2017 08:24 AM Modules accepted: Orders * Telephone Encounter - Saad Anand RN - 12/27/2017 7:56 AM EDT Pt left message on my office phone, requesting refill of buPROPion prescription. Thank you, Hugo Anand RN documented in this encounter Plan of Treatment Upcoming Encounters Date Type Department Care Team (Late st Contact Info) Description 03/13/2024 9:45 AM EDT Office Visit Dermatology at [address] [address] Emiliano Salinas MD [address] [facility], [place] [address] documented as of this encounter Visit Diagnoses Diagnosis Obesity, unspecified classification, unspecified obesity type, unspecified whether serious comorbidity present documented in this encounter Care Teams Illusionist Relationship Specialty Start Date End Date Juan Smith MD [facility] [address] PCP - General Family Medicine 05/10/16 09/02/21 documented as of this encounter
--- OUTSIDE RECORDS SUMMARY | 2024-02-15 13:17 | XMS_ITS | Encounter Summary ---
Author Organization [facility] [place] [address] Care Team Providers Care Software Quality Assurance Engineer Name Role Phone Sharma Chantellrebecca Lester APRN Primary Care Provider [phone]- [phone] Reason for Visit * Reason Comments Follow Up Surgery s/p bbr and abdomino plasty/liposuction 06/14/15 Encounter Details Date Type Department Care Team (Latest Contact Info) Description 07/29/2015 2:15 PM EST Office [place] [address] Carlee Marvin MD [facility] [place] [address] Status post bilateral breast reduction; Status post abdominoplasty Social History Tobacco Use Types Packs/Day Years Used Date Smoking Tobacco: Never Smokeless Tobacco: Never Alcohol Use Standard Drinks/Week Comments No 0 (1 standard drink = 0.6 oz pur e alcohol) Sex and Gender Information Value Date Recorded Sex Assigned at Not on file Gender Identity Not on file Sexual Orientation Not on file documented as of this encounter Patient Instructions * Patient Instructions* Carlee Marvin MD - 07/29/2015 3:14 PM EST Plan: 1. Follow up: 6 months. 2. Ibuprofen and/or Tylenol for discomfort. 3. Begin scar massage - instructions provided. 4. Slowly resume normal activities as tolerated. No sit-ups until 12 weeks post-op. 5. Compressive garment as tolerated during activities. Ok to wear Spanx. -SCAR MASSAGE TECHNIQUE: to begin 4-6 weeks following surgery What is a scar? When an injury occurs, the body immediately begins to repair itself & the area becomes swollen & sore. Eventually small collagen fibers form, becoming a solid tissue that results in a scar. This scar will continue to change in appearance for 1-2 years. Ideally, a scar is smooth & flat, blending in with the surrounding skin. However, some scars may become highly visible & unattractive due to factors such as your age, scar location & size, nutrition, genetics, or infection. A hypertrophic scar occurs when there is an excess production of collagen tissue that is elevated but remains within the wound boundaries. The scar is tense, red, & can be associated with itching & tenderness. A hypertrophic scar can be ordinary (usually stabilizes in 3 months & may even get smaller and smoother) or keloid. The keloid scar invades nearby tissue that was not part of the original wound, tends to enlarge even after 6 months & does not get softer. Will scar massage make my scars disappear? Nothing can make scars disappear. However, massaging the scar assists the body in breaking down thescar tissue to give it a flatter, softer, appearance. Massage also mobilizes the scar, preventing it from adhering to underlying tissue, tendons, & nerves. You can make the greatest difference in the appearance of the scar if you massage it in the first 3months. What should I use on my scars? You will hear many recommendations. This clinic finds that it is the massage itself that reduces the scar & not necessarily the choice of ointments or creams. We do discourage the use of Vitamin E oil, however, due to studies that have reported scar inflammation & deterioration. How do I massage my scars? Generously apply the lotion or cream into the scar 3-4 times a day for 8 weeks on new scars, and 3-4 times per day for 3 to 6 months on existing scars. Using your finger, apply pressure to the scar in a crosswise & circular direction, bearing down as hard as tolerated. Remember to protect your scar from the sun, especially in the first 6-12 months, by using a moisturizer with sunblock and wearing a physical barrier (ie: a hat) when possible documented in this encounter Progress Notes * Carlee Marvin MD - 07/29/2015 2:32 PM EST Plastic Surgery Post Op Note Reason for visit: F/U status post procedure Date of surgery: 06/14/15 Procedure(s): Bilateral breast reduction (Fuentes) with axillary liposuction and abdominoplasty with rectus plication Complications: None reported Pain: 07/20 HPI: Pt reports she has been well since her last visit. She continues to feel tired. She is otherwise well. She is very pleased with the results of surgery. Examination: Patient is alert, conversant, comfortable, ambulating Abdomen: Incisions CDI, healing well. Umbilicus intact. NACs well perfused. No signs of fluid collection. Good abdominal contour. Breasts: Incisions healing well, scars are fine. Suture knots clipped. NAC sensate bilateral Good breast symmetry in volume and size. No collection. No erythema Impression: Yessenia Luong is a 65 y.o. female who was seen today for follow-up after the above procedure. Please see the operative note for details. She is healing well to date. We discussed optionof abdominal dog ear excision in our minor procedure suite after some healing time. She is not interested at this time. She is aware she will not regain normal sensation at her abdominal incision line until 12-18 months post-op. I advised she begin scar massage. She was instructed in activity restrictions including to slowly resume normal activities but to avoid abdominal engagement until 12 weeks post op. Plan: 1. Follow up: 6 months or sooner PRN concerns. 2. Ibuprofen and/or Tylenol for discomfort. 3. Begin scar massage - instructions provided. 4. Slowly resume normal activities as tolerated. No sit-ups until 12 weeks post-op. 5. Compressive garment as tolerated for activities. Ok to wear Spanx. Wean as tolerated. 6. Resume mammograms at 6 months post op IMaye, am acting as scribe for Dr Marvin. All work documented was performed by Dr Marvin. ???I performed the above scribed service and agree with the accuracy of the note?? CRALEE MARVIN MD documented in this encounter Plan of Treatment Upcoming Encounters Date Type Department Care Team (Late st Contact Info) Description 03/13/2024 9:45 AM EDT Office Visit Dermatology at [place] [address] [place] [address] Emiliano Salinas MD [address], [place] [address] documented as of this encounter Visit Diagnoses Diagnosis Status post bilateral breast reduction Other postprocedural status Status post abdominoplasty Other postprocedural status documented in this encounter Care Teams Software Quality Assurance Engineer Relationship Specialty Start Date End Date Chantell Sharma APRN PCP - General 07/09/13 05/09/16 documented as of this encounter
--- OUTSIDE RECORDS SUMMARY | 2024-02-15 13:17 | XMS_ITS | Encounter Summary ---
Author Organization [facility] Address [facility] [place] [address] Care Team Providers Care Switchboard Manager Name Role Phone Chantell Sharma APRN Primary Care Provider [phone]- [phone] Reason for Visit * Reason Comments Skin Check Hair Loss Encounter Details Date Type Department Care Team (Late st Contact Info) Description 02/06/2016 10:00 AM EDT Office Visit Dermatology at [facility] [address] [place] [address] Javan Juares MD [facility] [address] [place] [address] Androgenetic alopecia; Telangiectasia; Rhytides Social History Tobacco Use Types Packs/Day Years Used Date Smoking Tobacco: Never Smokeless Tobacco: Never Alcohol Use Standard Drinks/Week Comments No 0 (1 standard drink = 0.6 oz pur e alcohol) Sex and Gender Information Value Date Recorded Sex Assigned at Not on file Gender Identity Not on file Sexual Orientation Not on file documented as of this encounter Progress Notes * Javan Juares MD - 02/06/2016 10:00 AM EDT Images from the original note were not included. DERMATOLOGY - ESTABLISHED PATIENT FOLLOW-UP Date of service: 02/06/2016 Yessenia Luong : 1950 Dermatology Resident Note: Javan Juares MD Chief Complaint Patient presents with ??? Skin Check ??? Hair Loss This is an established patient, last seen by Dr. Salmeron on 08/28/12. HPI: Ms. Luong presents for a full skin exam and has several questions regarding cosmetic procedures for the brown spots on her face and has had laser in the past for telangiectasia. She would also liketo discuss alopecia and potential treatments. She uses sunscreen when she is in the sun an denies ahx of skin cancer, spots/bumps that are bleeding spontaneously, that are not healing, or that are changing in size, shape, color and. She is also a patient of Dr. Salinas in [facility]. Skin History: Rosacea Telangiectasia Medical History: Past Medical History Diagnosis Date ??? 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 Hypercholesteremia ??? Hypothyroidism ??? THERESA (obstructive sleep apnea) 11/21/2011 moderate, sleep mouth guard ??? Rosacea 04/24/2011 ??? Seasonal allergies ??? Urinary incontinence, urge 01/08/2012 Medications: Current Outpatient Prescriptions on File Prior to Visit Medication Sig Dispense Refill ??? Thyroid, Pork, 16.25 mg Tablet Take 1 tablet by mouth. ??? triamcinolone (KENALOG) 0.1 % Ointment Apply topically 2 times daily. 30 g 0 ??? acetaminophen (TYLENOL) 500 mg Tablet Take 2 tablets by mouth every 6 hours as needed for Pain (for MODERATE pain). 30 tablet 1 ??? omega-3 acid ethyl esters (LOVAZA) 1 gram Capsule Take 2 g by mouth 2 times daily. 2 capsules ??? niacin (NIASPAN ER) 500 mg Tablet Sustained Release 24 hr Take 1,000 mg by mouth nightly. ??? BUDESONIDE/FORMOTEROL FUMARATE (SYMBICORT INHL) Inhale into the lungs. ??? ASCORBATE CALCIUM (VITAMIN C ORAL) Take by mouth. ??? ERGOCALCIFEROL, VITAMIN D2, (VITAMIN D ORAL) Take by mouth. ??? traZODone (DESYREL) 100 mg tablet Take 100 mg by mouth nightly. ??? multivitamin (THERAGRAN) tablet Take 1 tablet by mouth daily. ??? fexofenadine (EVANGELINA) 180 mg tablet 180 mg, PO, Once daily ??? DOCOSAHEXANOIC ACID/EPA (FISH OIL ORAL) ??? CALCIUM/MAGNESIUM (CALCIUM AND MAGNESIUM ORAL) ??? Mometasone (NASONEX) 50 mcg/Actuation [place] 2 [place](s) each nostril, Nasal, Twice daily No current facility-administered medications on file prior to visit. Allergies: Allergies Allergen Reactions ??? Bee Pollen ??? Morphine Diarrhea and GI upset ??? Sulfa (Sulfonamide Antibiotics) ??? Voltaren [Diclofenac Sodium] Family History: No family history of melanoma or non-melanoma skin cancer No family history of atopy, psoriasis or other skin disease Social History: Retired Review of Systems: - General: Feels well. - Skin: As per HPI; no other skin concerns. Examination: - Constitutional: Patient was alert, well-appearing and in no noticeable distress. - Skin: A full skin examination was performed. This includes the head, neck, face and scalp including behind the ears. The chest, abdomen, back, and axillae, as well as the arms, hands, palms, fingers. Legs, feet, toes and soles were also examined. Buttocks, breasts and genitalia were not examined. Specific skin findings: 1. 1 cm:0.5 cm crown to occiput part ratio - alopecia crown of the scalp. Negative pull test negative. - Photo obtained and charted for documentation purposes only with patient's consent. 2. Telangiectasia on the bilateral cheeks. 3. No pigmented lesions concerning for cancer Diagnosis/Assessment/Treatment Plan: 1. Androgenetic Alopecia: Etiology discussed with patient along with therapeutic options including topical minoxidil and Finasteride and their respective therapeutic interval to onset, side effects, and loss of regrowth with termination of treatment. Ultimately, due to side effects profile, she elected to treat with topical. Recommended objective re-evaluation in 6-12 months ans she was in agreement. Recommendations: - Rogaine Foam for Men - one application daily 2. 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 José Antonio Young RN,was apart for some of this conversation, including some discussion on pigmented lesions and rhytidsin the setting of laser treatment. Ultimately, the pt. Will RTC in June for consideration of multiple laser treatments w/ José Antonio Young. For now, we discussed daily sunscreen use and COTZ was recommended. 3. No pigmented lesions concerning for cancer: Sun avoidance, protective clothing, and the use of 30-SPF sunscreens is advised. Observe closely for skin damage/changes, and call if such occurs. RTC in 6 months - 1 year, follow up hair loss. Instructed to call for questions/concerns. I am documenting this encounter acting as the scribe for and in the presence of . Herminia Chong LPN I performed the above scribed service and agree with the accuracy of the documentation in this encounter, Javan Juares MD Reviewed and signed by Javan Juares MD Resident in Dermatology [facility] Staff urban gardening specialist: Karla Gaines MD Section of Dermatology [facility] * Karla Gaines MD - 02/06/2016 10:00 AM EDT I was the supervising physician working with Dermatology resident, Dr. Juares, in the Dermatology Clinic during this patient visit. The level of resident supervision for this patient visit was indirect supervision with direct supervision immediately available (definition: [facility] GME Policy Statement on Graduate Medical Education, Supervision of Graduate Medical Trainees). I was immediately available to Dr. Juares for questions and discussion regarding this visit. I have reviewed his encounter note details and level of service. KARLA GAINES MD [facility] Staff Physician documented in this encounter Plan of Treatment Upcoming Encounters Date Type Department Care Team (Late st Contact Info) Description 03/13/2024 9:45 AM EDT Office Visit Dermatology at [place] [address] [place] [id number] Emiliano Salinas MD [address], [place] [address] documented as of this encounter Visit Diagnoses Diagnosis Androgenetic alopecia Other alopecia Telangiectasia Other and unspecified capillary diseases Rhytides Other specified hypertrophic and atrophic condition of skin documented in this encounter Care Teams Switchboard Manager Relationship Specialty Start Date End Date Chantell Sharma APRN PCP - General 07/09/13 05/09/16 documented as of this encounter
--- OUTSIDE RECORDS SUMMARY | 2024-02-15 13:17 | XMS_ITS | Encounter Summary ---
Author Organization [facility] [place] [address] Care Team Providers Care Manufacturing Plant Controller Name Role Phone Juan Smith MD Primary Care Provider Encounter Details Date Type Department Care Team (Latest Contact Info) Description 04/17/2019 11:20 AM EST Clinical Support Cardiology at [address] [address] Derick Acosta, RD [facility] [place] [address] Nutritional counseling Social History Tobacco Use Types [...] Sign Reading Time Taken Comments Blood Pressure 135/64 04/17/2019 10:49 AM EST Pulse 88 04/17/2019 10:49 AM EST Temperature - - Respiratory Rate - - Oxygen Saturation 98% 04/17/2019 10: 49 AM EST Inhaled Oxygen Concentration - - Weight 77.1 kg (169 lb 14.4 oz) 11/08/2 019 10:49 AM EST Height 162.6 cm (5' 4.02) 04/17/2019 1 0:49 AM EST Body Mass Index 29.15 04/17/2019 10:49 AM EST documented in this encounter Progress Notes * Derick Acosta, RD - 04/17/2019 11:20 AM EST Date 04/17/2019 Patient Name Yessenia Luong 1950 Ref: Dr. Montalvo Patient wants to achieve today: Patient reports that the pain she is in limits her interest in doing anything so she asked to start over from the beginning with a simpler meal plan. Reports having eliminated red meat and reduced cheese. Weight History: Estimated body mass index is 29.15 kg/m?? as calculated from the following: Height as of this encounter: 162.6 cm (5' 4.02). Weight as of this encounter: 77.1 kg (169 lb 14.4 oz). IBW = 120# +/- 10% ( 55 kg) Estimated kcal needs = 55 kg x 25 kcals = 1400 kcals daily Estimated protein needs = 55 kg x 1.0 g = 55 g protein daily Activity/Exercise History & Habit:no change Social History Tobacco Use Smoking Status Former Smoker ??? Packs/day: 0.25 ??? Years: 10.00 ??? Pack years: 2.50 ??? Types: Cigarettes Smokeless Tobacco Never Used CHEMISTRIES: Labs: Lipid Panel Lab Results Component Value Date CHLPL 252 04/17/2019 HDL 74 04/17/2019 CHOLHDL 3.4 04/17/2019 TRIG 157 04/17/2019 LDLCHOL 147 04/17/2019 No results for input(s): HA1C in the last 7068 hours. MEDICAL NUTRITION THERAPY ASSESSMENT: Patient has had difficulty following nutrition ed materials provided last time as she dislikes cooking. She has reduced the quantity of red meats and cheese intake, however, and is willing to make additional changes provided they are simple to prepare. NUTRITION EDUCATION Provided the ed material used for [facility] patients with meal pattern for 1400 kcal diet composed of 30% protein, 30% fat, and 40% carbohydrate in the Mediterranean Cardio-metabolic diet. The emphasis is on obtaining carbohydrate calories from legumes, nuts/seeds, and non-starchy vegetables, with small daily quantities of whole grains, starchy vegetables, and fruit. Patient had good comprehension and motivation per questions and comments. GOALS: a) Increase nutrient-dense and high-fiber, low saturated (15 g), no trans fats foods a. Goal: Increase sulfur-containing vegetables daily b. Goal: Increase nuts to 1 ounce daily c. Goal: Increase leafy vegetables daily for folate, B6 d. Goal: Increase fiber of all kinds to 15 g fiber / 1000 kcals consumed e. Goal: Increase ocean foods intake to at least four times/week for iodine and omega 3 FAs b) Reduce yid-xteiuroo-zvlwz foods NUTRITION MONITORING PLAN/EVALUATION/SURVEILLANCE PLAN: I will e-mail patient recipes for: veg soup, corn/seafood chowder, greene burger, or any others [email or web address] Patient to try the 3-day menus and adjust as necessary to fit her lifestyle. RTC when she returns to see Dr. Montalvo next time. Once patient has changed her eating habits, do a nutrient analysis to help her luciana in on fat composition, fiber, vitamins and minerals. documented in this encounter Plan of Treatment Upcoming Encounters Date Type Department Care Team (Late st Contact Info) Description 03/13/2024 9:45 AM EDT Office Visit Dermatology at [place] [address] [facility] [place] [address] Emiliano Salinas MD [address] [facility] [place] [address] documented as of this encounter Visit Diagnoses Diagnosis Nutritional counseling documented in this encounter Care Teams Manufacturing Plant Controller Relationship Specialty Start Date End Date Juan Smith MD [place] [address] PCP - General Family Medicine 05/10/16 09/02/21 documented as of this encounter
--- OUTSIDE RECORDS SUMMARY | 2024-02-15 13:17 | XMS_ITS | Encounter Summary ---
Author Organization [facility] Address [facility] [place] [address] Care Team Providers Care Associate Juvenile Court Judge Name Role Phone Juan Smith MD Primary Care Provider [phone] Reason for Visit * Reason Comments Skin Check Encounter Details Date Type Department Care Team (Late st Contact Info) Description 02/12/2017 10:00 AM EDT Office [facility] [address] [place] [address] Vern Salmeron MD [facility] [place] [address] Androgenic alopecia Social History Tobacco Use Types Packs/Day [...] Progress Notes * Vern Salmeron MD - 02/12/2017 10:00 AM EDT Yessenia Luong 02/12/2017 [id number] Raymundo Salmeron MD ([id number]) Chief Problem: 1. Pigmented Lesion and Skin Cancer Examination 2. Rosacea 3. Telangiectasias History: 67 y.o. year old female. Established patient to me. No significant changes in health or medications since last visit 05/10/16. Patient presents to the clinic today for a full skin cancer examination with history as listed above. No specific areas of concern today. Skin cancer questions. SKs. Rosacea discussion. Medications: reviewed All: reviewed Review of Systems: Feels well, no fatigue, no weight loss, no other skin concerns -Reports allergies this fall Current Outpatient Prescriptions on File Prior to Visit Medication Sig Dispense Refill ??? finasteride (PROPECIA) 1 mg Tablet Take 1 tablet by mouth daily. 30 tablet 3 ??? mirtazapine (REMERON) 15 mg Tablet Take 15 mg by mouth nightly. ??? tretinoin (RETIN-A) 0.05 % Cream Apply nightly as tolerate. 45 g 1 ??? Thyroid, Pork, 16.25 mg Tablet Take [...] MAGNESIUM ORAL) ??? Mometasone (NASONEX) 50 mcg/Actuation [place] 2 [place](s) each nostril, Nasal, Twice daily No current facility-administered medications on file prior to visit. Examination: Patient was alert, well-appearing and in no noticeable distress. A skin examination was performed. This includes the head, neck, face and scalp including behind the ears. The chest, abdomen, back, and axillae, as well as the arms, hands, palms, fingers. Legs, feet, toes and soles were also examined. Specific findings: 1. Seborrheic dermatitis on face 2. Mild Rosacea located on the face 3. Dry fissured feet 4. 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 Seborrheic keratosis, located on the trunk and extremities 6. Hair thinning on scalp 7. Submental tissue located on the chin 8. Facial Rhytids Assessment/Diagnosis: 1. Seborrheic dermatitis on face 2. Mild Rosacea, no treatment warranted 3. Dry fissured feet 4. Holt Angiomas 5. Seborrheic keratosis. Patient reassured. 6. Hair thinning 7. Submental tissue 8. Facial Rhytids Prescription: 1. Protopic 0.1% ointment - apply topically to the face twice daily as needed 2. Propecia 1 mg po qd Treatment/Plan: Discussion - Spent over half of this visit discussing pathophysiology and the diagnosis, and counselling this patient on treatment options, expectations and follow-up plan. - Specifically discussed: 1. Sun avoidance re-emphasized, sunscreen, hats, clothing as always. 2. Kybella treatment discussed for excessive submental tissue. Patient quoted $1200 per treatment due upon exiting the clinic. Patient is aware that it might take multiple treatments and could cause swelling and bruising for up to 2 weeks. (handout given to patient today) She will call the clinic if she would like to schedule treatment. 3. Combined decision was made to treat Seborrheic dermatitis on face with Protopic 0.1% ointment. Patient aware that it will most likely not be covered by insurance but she should buy it anyway 4. Advised to apply Vaseline to the feet with occulusion a few times a week at night 5. Discussed using Minoxidil (Rogaine) for Men [5% strength] to promote hair growth. This [id number] product is FDA-approved for androgenetic alopecia, and has shown efficacy at decreasing the rate of hair loss. Minoxidil may or may not produce growth of new hair. It is available in a foam orsolution, and should be applied nightly. Benefit of this treatment is dependent upon continued use of the medication. Briefly discussed starting Propecia and reviewed the side effects. Combined decision was made to start the use of Propecia 6. Briefly discussed treating age related facial rhytids cosmetically with Botox. Patient is aware that this is considered a cosmetic procedure and not covered by insurance. Patient quoted: $400.00 per treatment. Patient advised treatments every 4-6 months are recommended. Discussed risks and benefits including possible bruising or swelling. Patient expressed verbal understanding. Follow up: 1 year skin cancer exam, sooner if needed I am documenting this encounter acting as the scribe for and in the presence of Dr. Salmeron,Jackelin Solomon LPN and Luci Cobb I performed the above scribed service and agree with the accuracy of the documentation in this encounter, MD Raymundo Aldridge M.D. Section of Dermatology documented in this encounter Plan of Treatment Upcoming Encounters Date Type Department Care Team (Late st Contact Info) Description 03/13/2024 9:45 AM EDT Office Visit Dermatology at [address] [address] Emiliano Salinas MD [address] [place] [address], [place] [address] documented as of this encounter Visit Diagnoses Diagnosis Androgenic alopecia Other alopecia documented in this encounter Care Teams Associate Juvenile Court Judge Relationship Specialty Start Date End Date Juan Smith MD [place] [address] [facility] [address] PCP - General Family Medicine 05/10/16 09/02/21 documented as of this encounter
--- OUTSIDE RECORDS SUMMARY | 2024-02-15 13:17 | XMS_ITS | Encounter Summary ---
Author Organization [facility] [place] [address] Care Team Providers Care Manager Government Name Role Phone Juan Smith MD Primary Care Provider [phone] Reason for Visit * Diagnostic Test (Routine) - Closed Specialty Diagnoses / Procedures Referred By Contac t Referred To Contact Radiology Diagnoses Chest pain, unspecified type SOB (shortness of breath) Procedures NM Pharmacologic Stress Myocardial Perfusion Tory Montalvo MD [facility] [address] [place] [address] Referral ID Status Reason Start Date Expiration Date V isits Requested Visits Authorized [id number] Closed Specialty Service Requested 03/05/2019 05/03/2019 1 1 Encounter Details Date Type Department Care Team (Latest Contact Info) Description 03/12/2019 9:24 AM EDT Hospital Encounter [place] [address] Tory Montalvo MD Discharge Disposition: Home Social History Tobacco Use [...] Sig Dispensed Refills Start Date End Date EPINEPHrine 0.3 mg/0.3 mL Auto-Injector as needed. [...] (for MODERATE pain). 30 tablet 1 06/15/2015 TIROSINT 50 mcg Capsule Take 50 mcg by mouth daily. 1 02/10/2019 10/29/2022 ezetimibe (ZETIA) 10 mg TabletIndications:Familial hypercholesterolemia Take 1 tablet by mouth daily. 90 tablet 3 02/13/2019 10/09/2019 rosuvastatin (CRESTOR) 5 mg TabletIndications:Familial hypercholesterolemia Take one table twice a week 45 tablet 3 02/13/2019 04/17/2019 icosapent ethyl (VASCEPA) 1 gram CapsuleIndications:Familial hypercholesterolemia Take 2 capsules by mouth 2 times daily. 360 capsule 3 02/13/2019 10/09/2019 traZODone (DESYREL) 50 mg Tablet Take 50 mg by mouth nightly. 10/29/2022 naproxen (NAPROSYN) 500 mg Tablet as needed. 0 11/27/2017 03/18/2023 olopatadine (PATANOL) 0.1 % Drops instill 1 drop into affected eye twice a day 0 07/05/2017 09/03/2022 azelastine (ASTELIN) 137 mcg (0.1 %) Aerosol, [place] 0 11/06/2017 0 09/03/2022 ASCORBATE CALCIUM (VITAMIN C ORAL) Take by mouth. 09/03/2022 ERGOCALCIFEROL, VITAMIN D2, (VITAMIN D ORAL) Take by mouth. multivitamin (THERAGRAN) tablet Take 1 tablet by mouth daily. 09/03/2022 fexofenadine (EVANGELINA) 180 mg tablet 180 mg, PO, Once daily 08/28/2010 09/03/2022 Mometasone (NASONEX) 50 mcg/Actuation [place] 2 [place](s) each nostril, Nasal, Twice daily 08/28/2010 09/03/2022 documented as of this encounter Plan of Treatment Upcoming Encounters Date Type Department Care Team (Late st Contact Info) Description 03/13/2024 9:45 AM EDT Office Visit Dermatology at [place] [address] [place] [id number] Emiliano Salinas MD [address], [place] [address] documented as of this encounter Procedures Procedure Name Priority Date/Time Associated Diagnosis Comments NM PHARMACOLOGIC STRESS AND REST MYOCARDIAL PERFUSION Routine 03/12/2019 10:40 AM EDT Chest pain, unspecified type SOB (shortness of breath) documented in this encounter Visit Diagnoses Not on filedocumented in this encounter Administered Medications Inactive Administered Medications - up to 3 most recent administrations Medication Order MAR Action Action Date Dose Rate Site regadenoson (LEXISCAN) injection 0.4 mg 0.4 mg, Intravenous, ONCE, 1 dose, On Maria L 03/12/19 at 1100, Routine Given 03/12/2019 11:00 AM EDT 0.4 mg technetium (Tc-99m) sestamibi injection 25.4 mCi 25.4 mCi, Intravenous, ONCE PRN, 1 dose, Starting on Maria L 03/12/19 at 1039, Until Maria L 03/12/19 at 1040, Per Protocol, Routine Given 03/12/2019 10:40 AM EDT 25.4 mCi Right Arm documented in this encounter Care Teams Manager Government Relationship Specialty Start Date End Date Juan Smith MD [address] [place] [id number] PCP - General Family Medicine 05/10/16 09/02/21 documented as of this encounter
--- OUTSIDE RECORDS SUMMARY | 2024-02-15 13:17 | XMS_ITS | Encounter Summary ---
Author Organization [facility] Address [facility] [place] [address] Care Team Providers Care Mobile Designer Name Role Phone Juan Smith MD Primary Care Provider Reason for Visit * Reason Comments Weight Management * Consultation (Routine) - Specialty Diagnoses / Procedures Referred By Contac t Referred To Contact Weight and Wellness Diagnoses familail hypercholesterolemia, THERESA, increased BMI, hypothyroidism Georgia Garduno MD [address] [place] [address] [facility] [address] [place] [address] Referral ID Status Reason Start Date Expiration Date V isits Requested Visits Authorized [id number] Consult, Test [facility] 10/28/2017 10/28/2018 1 1 Encounter Details Date Type Department Care Team (Late st Contact Info) Description 12/06/2017 9:00 AM EDT Office Visit Weight and Wellness at [facility] [address] [place] [address] Natalie Stephens MD [facility] [place] [address] Class 1 obesity; THERESA on CPAP; Depression, unspecified depression type; Vitamin D deficiency; Anxiety disorder, unspecified type ; Impaired glucose tolerance Social History Tobacco Use Types Packs/Day Years [...] Sign Reading Time Taken Comments Blood Pressure 146/81 12/06/2017 8:53 AM EDT Pulse 62 12/06/2017 8:53 AM EDT Temperature - - Respiratory Rate 16 12/06/2017 8:53 AM EDT Oxygen Saturation 100% 12/06/2017 8:53 AM EDT Inhaled Oxygen Concentration - - Weight 79.3 kg (174 lb 14.4 oz) 12/06/2017 8:53 AM EDT Height 161.3 cm (5' 3.5) 12/06/2017 8:53 AM EDT Body Mass Index 30.49 12/06/2017 8:53 AM EDT documented in this encounter Patient Instructions * Patient Instructions* Natalie Stephens MD - 12/06/2017 10:00 AM EDT MEDICAL MANAGEMENT PROGRAM This is a lifestyle modification program offered by the [facility]. Participants are seen regularly by our physicians and dietitians throughout the program; our physicians supervise the program and may prescribe weight loss medications as needed, while our dietitiansmake tailored dietary recommendations. Participants also have access to our health coaches--who assist when you encounter barriers to progress--throughout the program. In addition, we offer individual and group-based sessions with our clinical psychologist to addressemotional eating, binge eating, and food cravings (ACTion group). LABS - TSH - A1c - CMP - vitamin D level Referral to the ACTion group Consider melatonin 3-5 mg nightly for 2-3 weeks, 2-3 hours before sunset. Consider a trial of bupropion or topiramate for weight loss. GOALS 1) Decrease alcohol intake 2) Increase physical activity to 30 minutes per day, 5 days per week 3) Keep a faithful record of food intake for your appointment with our dietitian Follow up with our team in 1-2 months, and with Dr Stephens at that time documented in this encounter Progress Notes * Brian Hudson - 12/06/2017 9:00 AM EDT RESEARCH STUDY CONSENTING VISIT Visit Date: 12/06/17 PI/Designee: Dr. Félix Hernandez/Brian Hudson [facility] [id number]: [facility] Biorepository VELOS: [id number] Yessenia Luong??consented to participate in the above-named protocol. Prior to giving informed consent, the subject had the opportunity to: ?? Read the consent form (or have it read to him/her) ? Discuss the protocol participation with research (or designee) including: ?? Purpose of the study ?? Painful or uncomfortable procedures ?? Risks/benefits ?? Alternatives ?? Who to call with questions ?? Withdrawal rights ?? Ask questions; and ? Consult with family or other physicians ? The subject indicated his/her consent by signing and dating the Patient Informed Consent Form ? Informed consent was conducted prior to any research-related procedures. ?? The subject was provided with a fully executed copy of the consent. Brian Hudson, CCRC Associate Research Coordinator [facility] [place] Pager: [phone] * Natalie Stephens MD - 12/06/2017 9:00 AM EDT [facility] Visit Patient Name: Yessenia Luong Date of : 1950 Age: 67 y.o. Juan Smith MD Thank you for referring Yessenia Luong to the [facility] for a consultation forobesity management. I reviewed past records including notes, labs, and other evaluation and discussed them with the patient. CHIEF COMPLAINT: Management of excess weight HISTORY OF PRESENT ILLNESS: Yessenia Luong is a 67 y.o. female referred to the [facility] for an evaluation of obesity. Weight History: She reports that weight has been an issue since infancy I've always been chubby. Highest weight in adulthood was 193 pounds at age 62. 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 Per her report, contributors to weight gain have included emotional eating, bad habits and not knowing what to eat as well as alcohol intake and sedentary lifestyle. She reports a history of emotional eating; episodes of emotional eating are triggered by sadness and loneliness and anger and feeling overwhelmed. She reports that these emotions primarily cause her to eat bigger portions. She notes that as an Kh[place], there is a culture of eating, and eating is love. She denies a history of binge eating; she notes that she does have very large servings of food after drinking too much--3-4 glasses of wine at a alliance party. Lowest weight in adulthood was 128 pounds at the time she was in 1978. Prior weight loss attempts have included reduced portion sizes, skipped meals, decreased intake of fat and carbohydrates, increased physical activity and weight loss medications. She has participated in structured weightloss programs including Weight Watchers, [facility]. She has not used [id number] weight loss medications. She has used prescription weight loss medications in the past--lost 10 pounds on Contrave last year, but found that it made her feel depressed. She reports that the importance of making a change is 10 out of 10, while confidence to do so is also 10 out of 10; this is because I'd really like to learn some new ways to live better and be healthy. Family history of obesity: Sister, mother, maternal grandfather it's this culture of eating 24 hour diet recall - Breakfast: Cappuccino, breakfast sandwich with egg, roast beef and horseradish - Lunch: salad, coffee with milk - Dinner: Mussels, beef bourginon - Snacks: Banana - Drinks: 1 kumar, 9 oz white wine - Dessert: Slice of cantrell pie Exercise: Riding her bike 1-2x/week, occasional walking [facility] Initial Responses 12/06/2017 URICA - Readiness Score 12.66 (Preparation State) WEL-SF Total Scores 54 PROMIS 6B Scores 45.4 PHQ-2 SubScore 2 (Brief screen negative) GAD2 Subscore 2 (Brief screen negative) PROMIS 10 Physical Scores 47.7 PROMIS 10 Mental Scores 43.5 IPAQ-SF Scores 3 Total REAP-S Scores 32 TFEQ - Uncontrolled Eating (UE) 44.44 TFEQ-Cognitive Restraint (CR) 66.66 TFEQ-Emotional Eating 66.66 Food Insecurity Score 2 [place] Category I Result 1 (Positive) [place] Category II Result 1 (Positive) [place] Category III 0 (Negative) [place] Sleep Apnea Total 2 (High Risk) Schooling Postgraduate school or degree Importance of making a change 10 - Very Important Confidence to make change 10 - Very Confident Most weighed 190 Age most weighed 49 Times lost 10 lbs or more 6 to 10 Most weight lost in one attempt 20 Lost weight how? Ate less food, Switched to food with less calories, Ate less fat, Ate fewer carbohydrates, Exercised, Skipped meals, Took diet pills prescribed by a doctor Wearing tracking devices helped improve health Yes Worried food would run out before we got money to buy more Never true Food didnt last; no money to get more Never true Woman with baby weighing > 9lbs at Yes Have parent with diabetes No Younger than 65 yrs and little or no exercise in a day No Impact of weight on the patient's life: The patient's greatest concerns today regarding weight include I don't like the way I look and feels it limits her ability to hike and be physically active [facility] Followup Responses 12/06/2017 URICA - Readiness Score [...] to get more Never true REVIEW OF SYSTEMS (positives bolded): see above HPI for additional pertinent +/- findings Constitutional: High appetite and average energy. No daytime tiredness. No recent weight gain or loss. CV: No chest pain or discomfort, no palpitations. No orthopnea, PND. No LE edema. RESP: No shortness of breath at rest, cough, or wheezing. Sleep apnea. +snoring, +KAY. GI: No nausea,vomiting, diarrhea, constipation, abdominal pain : No dysuria, hematuria, urinary frequency or urgency. No stress incontinence. Musculoskeletal: No joint swelling. No immobility. No myalgias. No arthralgias, no arthritis. Integumentary: No rash or bruising.No skin breakdown/ulcers. No intertrigo. No acanthosis nigricans. Psychiatric: Anxiety, depression Neurological: No headaches Endocrine: No cold intolerance, dry skin, dry/brittle hair, constipation. No excessive thirst. PAST MEDICAL HISTORY Medical and Surgical History: Reviewed and updated. The patient has the following diagnoses that are adverse health consequences of obesity: - THERESA - HLD - asthma History of abdominal surgeries: - total abdominal hysterectomy - x 2 - tummy tuck - appendectomy Family History: Reviewed and updated in eD. Social History: Reviewed and updated in eD. The patient's support system includes boyfriend, daughter, son, friends. VITAL SIGNS: Vitals: 12/06/17 0853 BP: 146/81 Pulse: 62 Resp: 16 SpO2: 100% Weight: 79.3 kg (174 lb 14.4 oz) Height: 161.3 cm (5' 3.5) Body mass index is 30.49 kg/(m^2). Last 5 weight values: Wt Readings from Last 5 Encounters: 12/06/17 79.3 kg (174 lb 14.4 oz) 02/06/16 77.6 kg (171 lb) 06/14/15 85.3 kg (188 lb 0.8 oz) 02/08/15 85.4 kg (188 lb 3.2 oz) 07/09/13 84.1 kg (185 lb 8 oz) PHYSICAL EXAM: Gen: Alert, NAD. + central adiposapthy Skin: Warm, pink, no rashes, no skin breakdown of the intertriginous folds, no acanthosis HEENT: NC/AT, PERRLA, EOMI, clear conjunctiva, MMM, OP clear and narrow, Mallampati grade 4/4 Neck: supple and thick, no LAD, no thyromegaly, no thyroid nodules appreciated CV: RRR, NL S1S2, no murmur Resp: CTAB, no wheezes/crackles Abd: +BS, soft, NT/ND, no HSM/masses appreciated Neuro: Alert and oriented, CN II-XII intact, MS 5/5 throughout, sensation intact to light touch Extremities: No joint swelling or tenderness Psych: NL affect today PREVIOUS LABS AND IMAGING: No results found for: CHLPL No results found for: HDL No results found for: LDLCHOL No results found for: TRIG No results found for: CHOLHDL No results found for: HA1C Lab Results Component Value Date NA 129 (L) 06/15/2015 K 3.6 06/15/2015 CL 92 (L) 06/15/2015 CO2 25 06/15/2015 BUN 12 06/15/2015 CREATININE 0.75 06/15/2015 GLUCOSE 136 06/15/2015 CALCIUM 8.4 (L) 06/15/2015 No results found for: ALT, AST, GGT, ALKPHOS, BILITOT, BILIDIR, ALBUMIN, PROT SUMMARY OF VISIT AND RECOMMENDATIONS: Yessenia Luong presents to the [facility] for a consultative visit regarding obesity management. The patient has Class 1 Obesity defined by a BMI of 30.49. In addition, Yessenia Luong has co-morbidities associated with both adipocyte dysfunction and with excessive adipocyte mass. Yessenia Luong's history and physical exam were not suggestive of an underlying medical disease that can contribute to weight gain. However, obesity is a multifactorial disease, and in this case, the following factors could be potential contributors: ?? Genetics and Epigenetics ?? Medications ?? Sleep Disturbance and Circadian Pattern ?? Environment ?? Mental Health and/or Disordered Eating ?? Nutrition and Eating Patterns ?? Lifestyle and Inactivity ?? Social and Cultural Influences ?? 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 Obesity is associated with increased risk of adverse health and psychosocial consequences as well as higher mortality. In addition, the increase in visceral fat volume places the patient at greater risk for metabolic disease. We reviewed the overall goals for obesity management, which include improvingthe patient's health, quality of life, and body weight/composition. I explained that a weight loss of just 5-10% of body weight can be associated with improvements in health. Medical issues and plan: Class 1 Obesity: Treatment options were discussed with the patient and include intensive lifestyle intervention, pharmacotherapy, and bariatric surgical or endoscopic procedures. ?? Medical Management with intensive lifestyle counseling: The patient is interested in the HealthyLifestyles Program (HLP) at the [facility], but due to her distance from the clinic, would like to try theMedical Management Pathway at this time. ?? Weight loss medications reviewed in detail--she reports she would consider a trial of topiramateor bupropion in the future ?? Referral to ACTion group to address emotional eating and food cravings ?? Will schedule a baseline nutrition and fitness assessment ?? Fasting Labs ordered to assess co-morbidities: ?? CMP, HA1c, vit D, TSH ?? Interim goals ?? Decrease alcohol intake ?? Increase physical activity to 30 minutes per day, 5 days per week ?? Keep a faithful record of food intake for your appointment with our dietitian ?? Further recommendations: ?? Annual screen for or assessment of Type II Diabetes, HTN, Hyperlipidemia, Depression, THERESA, NAFLD, vitamin D deficiency and renal disease ?? Given the association of obesity with cancer, all age appropriate cancer screenings should be UTD ?? Medication Review: If possible medications that promote weight gain should be avoided and medications that are weight-neutral or promote weight loss should be considered. Obesity Co-morbidities: HLP - nutrition, behavioral health and activity recommendations to promote healthy weight and potentially see an improvement in the following adverse health consequences: Hyperlipidemia: ?? Intolerant of statins--followed by a local instructor trainer canine service, and currently maintained on evolocumab. THERESA: ?? Diagnosed with sleep study ?? Continue CPAP as prescribed I spent a total of 60 minutes with the patient 45 minutes of which were spent in [id number]-aw-swsq discussion/counseling re obesity, nutrition and activity as well as obesity related co-morbidities Follow up in 1-2 months. documented in this encounter Miscellaneous Notes * Addendum Note - Brian Gillette - 12/06/2017 10:39 AM EDTAddended by: BRIAN GILLETTE on: 12/06/2017 10:39 AM Modules accepted: Orders documented in this encounter Plan of Treatment Upcoming Encounters Date Type Department Care Team (Late st Contact Info) Description 03/13/2024 9:45 AM EDT Office Visit Dermatology at [place] [address] [place] [phone] Emiliano Salinas MD [address], [place] [address] documented as of this encounter Procedures Procedure Name Priority Date/Time Associated Diagnosis Comments BIOREPOSITORY REQUEST Routine 12/06/2017 10:45 AM EDT Class 1 obesity VITAMIN D, 25-HYDROXY Routine 12/06/2017 10:45 AM EDT Class 1 obesity Vitamin D deficiency TSH Routine 12/06/2017 10:45 AM EDT Anxiety disorder, unspecified type Class 1 obesity HEMOGLOBIN A1C Routine 12/06/2017 10:45 AM EDT Impaired glucose tolerance Class 1 obesity COMPREHENSIVE METABOLIC PANEL Routine 12/06/2017 10:45 AM EDT Class 1 obesity documented in this encounter Results * Biorepository Request (12/13/2017 2:00 PM EDT) Biorepository Hold Sample in lab [facility] Stool specimen (specimen) 12/13/2017 2:00 PM EDT 12/24/2017 1:18 PM EDT Narrative Resulting Agency Comment Spec In Lab Natalie Stephens MD MOLECULAR ORDERABLES Performing Organization Address City/[facility]/ZIP Co de Phone Number [facility] [place] [address] * Biorepository Request (12/06/2017 10:45 AM EDT) Biorepository Hold Sample in lab [facility] Blood specimen (specimen) 12/06/2017 10:45 AM EDT 12/06/2017 4:01 PM EDT Narrative Resulting Agency Comment Spec In Lab Natalie Stephens MD MOLECULAR ORDERABLES Performing Organization Address [facility] Co de Phone Number [facility] [place] [address] * Vitamin D, 25-Hydroxy (12/06/2017 10:45 AM EDT) Pathologist [facility] Vitamin D Total 25 OH 41 30 - 100 ng/mL [facility] Comment: Deficient <10 ng/mL Insufficient 10 to 29 ng/mL Sufficient 30 to 100 ng/mL Potential Intoxication >100 ng/mL According to the US National Osteoporosis Foundation, Vitamin D concentrations >30 ng/mL are sufficient to protect bone health. ??The National Kidney Foundation has similarly stated that patients with Vitamin D concentrations <30ng/mL should be considered to be insufficient or deficient. http://Circadence.OpenX/nkf-guidelines http://Circadence.OpenX/nejm-VitD The IDS iSYS Vitamin D Immunoassay detects both 25-OH Vitamin D2 and 25-OH Vitamin D3, but only a total Vitamin D concentration is reported. Blood specimen (specimen) 12/06/2017 10:45 AM EDT 12/06/2017 2:47 PM EDT Narrative Resulting Agency Comment Spec In Lab Natalie Stephens MD CHEMISTRY ORDERABLES Performing Organization Address City/[facility]/ZIP Co de Phone Number [facility] [place] [address] * (ABNORMAL) Comprehensive metabolic panel (non-fasting) (12/06/2017 10:45 AM EDT) Glucose 99 65 - 199 mg/dL [facility] Comment:Diabetes: >=200 mg/d L plus symptoms Blood Urea Nitrogen 21(H) 8 - 18 mg/dL [facility] Creatinine 0.79 0.70 - 1.20 mg/dL [facility] Sodium 144 135 - 145 mmol/L [facility] Potassium 4.3 3.5 - 5.0 mmol/L [facility] Comment: Please note: ??Patients with WBC >100,000 may have falsely elevated Potassium levels. ??For accurate Potassium quantification in these patients send serum separator tube (gold top) for subsequent determinations. ??Contact the Clinical Chemistry Laboratory if there are any questions. Chloride 102 98 - 107 mmol/L [facility] Carbon Dioxide 26 22 - 31 mmol/L [facility] Anion Gap 16(H) 5 - 15 mmol/L [facility] Calcium 10.0 8.5 - 10.5 mg/dL [facility] Protein, Total 7.2 6.1 - 8.0 gm/dL [facility] Albumin 4.4 3.2 - 5.2 gm/dL [facility] Aspartate Aminotransferase 19 0 - 30 unit/L [facility] Alanine Aminotransferase 18 0 - 30 unit/L [facility] Alkaline Phosphatase 67 40 - 104 unit/L [facility] Bilirubin, Total 0.3 0.2 - 1.3 mg/dL [facility] Est Glomerular Filtration Rate 77 >=60 mL/min/1. 73 m?? [facility] Comment: The eGFR was calculated using the CKD-EPI equation. As with all creatinine based estimates of kidney function, eGFR values calculated with the CKD-EPI equation are not accurate in patients with acute kidney failure, extremes of body mass or the acutely ill. http://Circadence.OpenX/DHnkdep http://ExtendCredit.com/DHMCnkf eGFR 89 >=60 mL/min/1. 73 m?? [facility] Comment: The eGFR was calculated using the CKD-EPI equation. As with all creatinine based estimates of kidney function, eGFR values calculated with the CKD-EPI equation are not accurate in patients with acute kidney failure, extremes of body mass or the acutely ill. http://ExtendCredit.com/DHnkdep http://ExtendCredit.com/DHMCnkf Blood specimen (specimen) 12/06/2017 10:45 AM EDT 12/06/2017 1:21 PM EDT Narrative Resulting Agency Comment Spec In Lab Natalie Stephens MD CHEMISTRY ORDERABLES [facility] [place] [address] * Hemoglobin A1c (12/06/2017 10:45 AM EDT) Hemoglobin A1c 5.6 4.3 - 5.6 % [facility] Comment: Reference Range: 4.3 - 5.6% 5.7 - 6.4% - Increased Risk of Developing Diabetes Mellitus >= 6.5% - Consistent with diagnosis of Diabetes Mellitus In the absence of hyperglycemia (i.e. plasma glucose > 200 mg/dL) or classic symptoms of hyperglycemia a repeat measurement of HbA1c should be performed on a separate sample to confirm the diagnosis. Diagnosis and Classification of Diabetes Mellitus, Diabetes Care 2013; 36: Suppl. 1, M47-64 Estimated Average Glucose 114 mg/dL [facility] Comment: eAG equivalents for HbA1c percentages: HbA1c(%) ?eAG(mg/dL) 6.0 ?126 6.5 ?140 7.0 ?154 7.5 ?169 8.0 ?183 8.5 ?197 9.0 ?212 9.5 ?226 10.0 ? 240 Limitations: The eAG calculation has not been validated on women, individuals below 18 years old and above 70 years old, and individuals with hemoglobinopathies. Additional resources are available on the ADA website. Wade MENSAH, Kartik J, Yang R, et al. ??Translating the A1C assay into estimated average glucose values. ??Diabetes Care 2008:31(8):6322-9362. Blood specimen (specimen) 12/06/2017 10:45 AM EDT 12/06/2017 12:54 PM EDT Narrative Resulting Agency Comment Spec In Lab Natalie Stephens MD CHEMISTRY ORDERABLES Performing Organization Address [facility] Co de Phone Number [facility] [place] [address] * TSH (12/06/2017 10:45 AM EDT) Thyroid Stimulating Hormone 2.41 0.27 - 4.20 mlU/ML [facility] Blood specimen (specimen) 12/06/2017 10:45 AM EDT 12/06/2017 1:21 PM EDT Narrative Resulting Agency Comment Spec In Lab Natalie Stephens MD CHEMISTRY ORDERABLES Performing Organization Address [facility] Co de Phone Number [facility] [place] [address] documented in this encounter Visit Diagnoses Diagnosis Class 1 obesity THERESA on CPAP Obstructive sleep apnea (adult) (pediatric) Depression, unspecified depression type Vitamin D deficiency Unspecified vitamin D deficiency Anxiety disorder, unspecified type Impaired glucose tolerance Impaired glucose tolerance test documented in this encounter Care Teams Mobile Designer Relationship Specialty Start Date End [place] [phone] PCP - General Family Medicine 05/10/16 09/02/21 documented as of this encounter
--- OUTSIDE RECORDS SUMMARY | 2024-02-15 13:17 | XMS_ITS | Encounter Summary ---
[place] [address] Care Team Providers Care Electronic Publisher Name Role Phone Juan Smith MD Primary Care Provider [phone] Encounter Details Date Type Department Care Team (Latest Contact Info) Description 03/12/2019 9:25 AM EDT - 03/12/2019 11:59 PM EDT Hospital Encounter [place] [id number] Tory Montalvo MD Chest pain, unspecified type; SOB (shortness of breath) Discharge Disposition: Home Social History Tobacco Use [...] (for MODERATE pain). 30 tablet 1 06/15/2015 finasteride (PROSCAR) 5 mg TabletIndications:Hair thinning Take 1 tablet by mouth daily. 30 tablet 5 03/12/2019 04/28/2020 sulfacetamide (KLARON) 10 % SuspensionIndications:Rosac ea Apply [...] azelastine (ASTELIN) 137 mcg (0.1 %) Aerosol, [place] 0 11/06/2017 0 09/03/2022 ASCORBATE CALCIUM (VITAMIN C ORAL) Take by mouth. 09/03/2022 ERGOCALCIFEROL, VITAMIN D2, (VITAMIN D ORAL) Take by mouth. multivitamin (THERAGRAN) tablet Take 1 tablet by mouth daily. 09/03/2022 fexofenadine (EVANGELINA) 180 mg tablet 180 mg, PO, Once daily 08/28/2010 09/03/2022 Mometasone (NASONEX) 50 mcg/Actuation [place] 2 [place](s) each nostril, Nasal, Twice daily 08/28/2010 09/03/2022 documented as of this encounter Plan of Treatment Upcoming Encounters Date Type Department Care Team (Late st Contact Info) Description 03/13/2024 9:45 AM EDT Office Visit [facility] [address] [place] [address] Emiliano Salinas MD [address], [place] [address] documented as of this encounter Procedures Procedure Name Priority Date/Time Associated Diagnosis Comments NUCLEAR PHARMACOLOGIC STRESS CARDIOLOGY Routine 03/12/2019 10:46 AM EDT Chest pain, unspecified type SOB (shortness of breath) documented in this encounter Results * Nuclear Pharmacologic Stress Cardiology (03/12/2019 10:46 AM EDT) Anatomical Region Laterality Modality Other Tory Montalvo MD CARDIAC SERVICES ORD ERABLES documented in this encounter Visit Diagnoses Diagnosis Chest pain, unspecified type SOB (shortness of breath) Shortness of breath documented in this encounter Care Teams Electronic Publisher Relationship Specialty Start Date End Date Juan Smith MD [address] [place] [address] PCP - General Family Medicine 05/10/16 09/02/21 documented as of this encounter
--- OUTSIDE RECORDS SUMMARY | 2024-02-15 13:17 | XMS_ITS | Encounter Summary ---
Author Organization Formerly [facility] [place] [address] Care Team Providers Care Retail Shift Leader Name Role Phone Chantell Mims APRN Primary Care Provider [phone] Reason for Visit * Auth/Cert Specialty Diagnoses / Procedures Referred By Veronica t Referred To Contact Diagnoses Hypertrophy of breast Procedures PRO REDUCTION OF LARGE BREAST PRO EXCISE EXCESS SKIN TISSUE, ABDOMEN PRO SUCT SARAH LIPECTOMY, TRUNK [id number] BILAT [id number] ALSO BILAT [id number] Referral ID Status Reason Start Date Expiration Date Visits Re quested Visits Authorized [id number] 1 1 Encounter Details Date Type Department Care Team (Late st Contact Info) Description 06/14/2015 1:56 PM EST - 06/14/2015 6:24 PM EST Surgery [place] [address] Carlee Montenegro MD [facility] [place] [address] REDUCTION MAMMOPLASTY, ADAM (WRVU 16.03) Social History Tobacco Use Types Packs/Day Years [...] Sign Reading Time Taken Comments Blood Pressure 119/70 06/14/2015 12:23 PM EST Pulse 62 06/14/2015 12:23 PM EST Temperature 36.7 ??C (98.1 ??F) 06/14/2015 12:[address] Respiratory Rate 17 06/14/2015 12:23 PM EST Oxygen Saturation 97% 06/14/2015 12:23 PM EST Inhaled Oxygen Concentration - - Weight 85.3 kg (188 lb 0.8 oz) 06/14/2015 12:23 PM EST Height 162.6 cm (5' 4) 06/14/2015 12:23 PM EST Body Mass Index 32.28 06/14/2015 12:23 PM EST documented in this encounter Discharge Summaries * Carlee Montenegro MD - 06/15/2015 2:34 PM EST General Surgery Inpatient - Discharge Summary Patient Name: Yessenia Luong Patient Age: 65 y.o. Birthdate: 1950 Admit date: 06/14/2015 Discharge date and time: 06/15/2015 3:45 PM Attending Physician: Carlee Montenegro MD Primary Diagnosis: Breast hypertrophy Secondary Diagnosis: Active Hospital Problems Diagnosis ??? Macromastia Resolved Hospital Problems Diagnosis Date Resolved No resolved problems to display. Operations/Major Procedures: Operations: 06/14/2015 Surgeon(s) and Role: * Carlee Montenegro MD - Primary * Dudley Kramer MD: Procedure(s): REDUCTION MAMMOPLASTY, ADAM ABDOMINOPLASTY SUCTION ASSISTED LIPECTOMY,TRUNK HPI: Per admitting H&P: Yessenia Luong is a 64 y.o. 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 She initially met with Dr. Fregoso and Dr. House in 2005 for these procedures but was not ready to proceed with surgery at that time. She is not accompanied for today???s visit. She continues to have pain related to the weight of her breasts. She has had chiropractor treatments for her back pain but the symptoms recur. She also develops neck pain, and rashes under her breasts. Her weight has been stable at her current weight for 12 years. She walks regularly, but her abdominal contour does not change. She has a fold of skin above her C section scars that is uncomfortable. She reports her abdominal core is weak following her prior surgeries. She develops skin rashes that are painful. He abdominal weight also causes pain in her lower back. Hospital Course: Yessenia Luong was taken to the operating room where the above procedures were performed. She tolerated the operation well and without complication. She was admitted post-operatively for observationand management. The patient's hospital course was uncomplicated and she was deemed stable for discharge to home on post-operative day 1. Pathology: None back at discharge Important Studies and Lab Data: Labs: Last 3 wbc, hgb, hct plt No results for input(s): WBC, HGB, HCT, PLATELET in the last 7068 hours. Last 3 Lytes Recent Labs 06/15/15 1036 NA 129* K 3.6 CL 92* CO2 25 BUN 12 CREATININE 0.75 Last 3 LFTs No results for input(s): AST, ALT, ALKPHOS, BILITOT, BILIDIR in the last 7068 hours. Pending Lab Data at Discharge: No current labs Studies: No studies Exam: Temp: [36.3 ??C (97.3 ??F)-36.9 ??C (98.4 ??F)] Heart Rate: [61-84] Resp: [13-22] BP: (97-137)/(43-66) SpO2: [94 %-100 %] Intake/Output Summary (Last 24 hours) at 06/15/15 1545 Last data filed at 06/15/15 1400 Gross per 24 hour Intake 3660 ml Output 1056 ml Net 2604 ml Gen: Awake, alert, lying comfortably in bed, NAD Pulm: No increased work of breathing, maintaining sats on RA. Card: Normal rate Breast: Dressings c/d/i, soft, SUE drains removed Abd: Dressings c/d/i, SUE drains bilaterally with sanguenous drainage Discharge to: Home Discharge Conditions/Prognosis: Stable Discharge Medications: The following medications have been prescribed for you. If you notice any adverse reactions to your medications, please contact your primary care physician immediately or go tothe nearest Emergency Department. Your Medications Notice Some of the medications listed here do not show instructions, such as how often to take the medication. Ask your doctor or nurse how to use these medications. Specifically ask about these and similar medications: - DOCOSAHEXANOIC ACID/EPA (FISH OIL ORAL) - CALCIUM/MAGNESIUM (CALCIUM AND MAGNESIUM ORAL) New Medications Dose Details acetaminophen 500 mg Tab Commonly known as: TYLENOL Take 2 tablets by mouth every 6 hours as needed for Pain (for MODERATE pain). 1000 mg Quantity: 30 tablet Refills: 1 docusate sodium 100 mg Cap Commonly known as: COLACE Take 1 capsule by mouth 2 times daily for 10 days. 100 mg Quantity: 10 capsule Refills: 0 HYDROmorphone 2 mg Tab Commonly known as: DILAUDID Take 1 tablet by mouth every 4 hours as needed for Pain. 2 mg Quantity: 50 tablet Refills: 0 Continued medications, unchanged Dose Details EVANGELINA 180 mg Tab 180 mg, PO, Once daily Generic drug: fexofenadine Refills: 0 ARMOUR THYROID ORAL Take by mouth. Refills: 0 CALCIUM AND MAGNESIUM ORAL Refills: 0 FISH OIL ORAL Refills: 0 FLONASE 50 mcg/actuation Spsn 1 spray daily. Generic drug: fluticasone 1 spray Refills: 0 multivitamin Tab Commonly known as: THERAGRAN Take 1 tablet by mouth daily. 1 tablet Refills: 0 NASONEX 50 mcg/actuation [place] 2 [place](s) each nostril, Nasal, Twice daily Generic drug: mometasone Refills: 0 niacin 500 mg Tablet sr Commonly known as: NIASPAN ER Take 1,000 mg by mouth nightly. 1000 mg Refills: 0 omega-3 acid ethyl esters 1 gram Cap Commonly known as: LOVAZA Take 2 g by mouth 2 times daily. 2 capsules 2 g Refills: 0 SYMBICORT INHL Inhale into the lungs. Refills: 0 traZODone 100 mg Tab Commonly known as: DESYREL Take 100 mg by mouth nightly. 100 mg Refills: 0 VITAMIN C ORAL Take by mouth. Refills: 0 VITAMIN D ORAL Take by mouth. Refills: 0 Updated Allergies/ADRs: Allergies Allergen Reactions ??? Bee Pollen ??? Morphine Diarrhea and GI upset ??? Sulfa (Sulfonamide Antibiotics) ??? Voltaren [Diclofenac Sodium] Follow-up Recommendations for Providers: None PCP: CHANTELL MIMS APRN MANINDER [phone] / [facility] [address] Scheduled Appointments: The following appointments have been scheduled on your behalf: No future appointments. Outpatient Services/Studies: Referral to Home Health - at DISCHARGE Scheduling Instructions: DOCUMENTATION FOR VNA SERVICES (INCLUDING THOSE PATIENTS WITH MEDICARE COVERAGE REQUIRING HOME VNA SERVICES AND/OR HOSPICE SERVICES) PATIENT'S LOCATION: Yessenia Luong [address] [place] [id number] (home) Cell: Telephone Information: Quantitative Associate's Name: self In discussion with the attending physician, it is certified that this patient is under their care and that they, or a Nurse Practitioner,Clinical Nurse specialist or Physician Merchandise Flow Team Leader who is working directly with them, had a face to face encounter that meets the physician face to face encounter requirements with this patient on 06/15/2015 The encounter with the patient was in whole, or in part, for the following medical condition, whichis the primary reason for home health care services: Breast reconstruction and upper abdominal In discussion with the provider, it is certified that, based on their findings, the following services are medically necessary for home health services. To provide the following care/treatments with the clinical findings supporting the need for services as follows: Bilat breast reduction and upper abdominal lipectomy. HOME CARE ORDERS: RN ORDERS:Assess wound or incision, SUE drains care per agency protocol, vital signs, cardiopulmonary status, nutrition, hydration, elimination, meds effectiveness and management; reinforce education re health issues PT: Eval and treat Home exercise program if appropriate. OT: assess and continue rehab for managing ADL's. HOME HEALTH CARE AGENCY: [facility] PHONE: [phone] FAX: [phone] Start of care: 06/16/2015 FOR MEDICARE ONLY: (please delete this section if not Medicare) In discussion with the attending physician, it is certified that the clinical findings support thatthis patient is homebound because absences from home require considerable and taxing effort due to debilitation, unable to drive. Please note that any additional orders needs or changes will need to be obtained from this patient's PCP: CHANTELL MIMS, MYSQL DATABASE DEVELOPER MAN[facility] [address] / [place] [address] All A agencies which cover the area of patient's residence have been reviewed, either verbally ida writing, and patient/family have chosen the home health care agency noted A list of Home Health Agencies/DMEs which serve the geographic area which the patient resides or the geographic area requested by the patient/customer service representative teacher was made available.Full Disclosure Statement provided, as appropriate. Patient requests referral to [facility]. Referral matched w agency/vendor and info provided via [employer] program Question Response Notes Agency name and contact information [facility] Patient location post discharge home What services are requested Registered Nurse Start date 06/16/2015 Responsible MD post discharge contact info PCP Instructions Given to Patient at Discharge:. An After Visit Summary was printed and given to the patient. Patient Instructions Instructions for breast reduction surgery What to Expect.... ?? The healing process after breast reduction surgery varies with each person. You should expect tofeel tired for the first 2 - 3 weeks due to anesthesia and the healing process. Rest often during the day and get a good night sleep. Pain (short term and fci) ?? With any surgery there is some discomfort or pain. We will prescribe pain medication. Take as prescribed and only as needed. OK to take Tylenol, do not exceed 3 grams per day. OK to add Ibuprofen 48 hours after surgery. ?? We recommend taking an gjkz-hwu-Kozwpmf stool softener, such as Colace (docusate) or a gentle laxative while taking your narcotic pain reliever. This will help to maintain bowel regularity and prevent straining. Drink plenty of water. ?? You will may have nerve pain after your surgery because the nerve endings have been disturbed. Nerve pain may feel like a burning sensation, itching or a shooting, electric shock pain. This is normal and will get better as you heal. Swelling ?? Moderate bruising and swelling is normal in the first few weeks after surgery. The swelling willgradually go down, but it may remain for 3 to 6 months. ?? To help with swelling wear your compression bra. ?? Do not use heat or ice on your surgical site. Drains ?? Record drain output and bring to your first clinic appointment with you. Based on the nursing assessment, your drain will likely be removed at this appointment. ?? The nurses will show you how to care for the drains Showering ?? You may shower tomorrow. ?? Do not take a bath or use a hot tub until incisions are completely healed. ?? If you have drains in place, tie a shoe lace or string around your neck and attach the drains tothis to prevent accidental removal. ?? Have someone nearby during your first shower. Incisions/Dressings ?? You may have some red, pink, yellow/clear drainage from your incisions for the first 1-2 weeks. Change gauze as needed. Continue to use dressings until there is no more drainage. ?? You had a vertical reduction (lollipop incision) and you have a xeroform gauze with tape at the bottom of your incision. You need to make sure xeroform gauze is always in place and paper tape to encourage the dog-ear to settle. DO???S AND DON???TS FOR THE NEXT 6 WEEKS ?? Do not drive a motor vehicle for 1-2 weeks or until you can handle the steering wheel without discomfort. Do not drive while taking your narcotic. You will be able to wear a seat belt if you placea small pillow over your chest area. ?? Do not engage in sexual activity for at least 1 week. ?? Do not smoke or be around anyone who smokes for 2 weeks after your surgery. Smoking delays healing and can lead to infection. ?? Do not lift more than 5 pounds or bend at the waist to lift for 6 weeks. ?? Do not participate in strenuous activities such as running or aerobics for 6 weeks. ?? Do resume walking at a gentle pace. ?? Protect your incisions from the sun for 6 months. ?? You may return to work in 1-6 weeks (average time is 3 weeks) depending upon your work activity. GETTING OUT OF BED ?? You will be asked to limit the use of your arms for a few weeks after surgery. This can be a problem when trying to get out of bed. The following suggestions help you get out of bed with minimal use of your arms. ?? When in bed, pull your knees up towards your chest and tip to the side, gently rolling out of bed. Take care not to roll onto your breasts. ?? Create a nest of pillows to prop you in a semi-upright position helps give you that extra boost to get out of bed. ?? Have someone put gentle pressure to your lower shoulder blades as you sit up. This gives you theextra power you need to get to your feet. Complications: Call your doctor with the following signs of infection: ?? A temperature over 100.4 F or 38 C ?? Redness at the incision line that spreads away from the incision after the first 48 milo thick yellow, foul smelling drainage ?? Increasing pain that is not relieved by your pain medicine ?? One breast becomes much larger and more firm than the other Contact your Doctor ?? To make an appointment or for questions about scheduling, please contact our administrative offices at [phone] ?? For clinical questions, please call our nurses at [phone] ?? Both offices are open Saturday thru Saturday 8a - 5p. With emergencies after hours, call the hospital gang bore operator at [phone] and ask for the Plastic Surgery Resident manager online. Instructions for Abdominal Surgery During the first 1 to 3 weeks, expect to feel tired from the anesthesia and in general, due to the healing process. Rest frequently during the day, and limit visitors until you feel more up to it. Altered sensation (such as shooting or burning pain) or numbness is common after surgery. Normal ornear normal sensation should return within a few months but some areas may stay numb permanently. You will be able to return to work in 4-6 weeks. You will not be able to lift more than 5 pounds for 6 weeks and no more than 10- 20 pounds for 3 months. No strenuous exercise (tennis, aerobics, jogging) for 3 months. Feel free to walk as much as you want. Walking improves circulation, respiratory function and healing. You will not be able to drive for 2-3 weeks or while taking you pain medication. You may wear your safety belt if you place a small pillow over your abdominal incision. No sexual activity for 6 weeks. No smoking for at least 2 weeks following your surgery. POSTOPERATIVE DRAIN AND INCISION CARE Your hospital nurse will review your drain care. You will learn how to strip, measure, and record the total amount of fluid from each drain. Call the clinic at [phone] and schedule an appointment with the nurses to have your drains removed when the drainage is 30cc or less in a 24 hour period for 2 days in a row. Note: Generalized abdominal swelling above the incision may last for several weeks to months due totissue fluid build-up. Do not use ice or heat on your surgical site. You may shower 48 hours after surgery. Do not take a bath or use a hot tub until your skin is completely healed. To reduce the strain on your incision, you should remain in a hunched over position for about 7 days- this may take longer in some instances so let your body be your guide. You may remove your dressings after 48 hours. If you feel more comfortable with dressings under thebinder, then you may replace them to suit your comfort needs. If present, nonabsorbable stitches are removed in 2 weeks. Spitting sutures: Occasionally an area of redness and tenderness develops where a dissolving stitchbecomes irritated and pushes to the surface. If this occurs, it is not an emergency. You may clip the stitch with a clean scissor or call for an appointment with a nurse. No tanning on incision lines for at least 6 months to minimize scarring. No over the counter lotions, solutions, or herbal preparations on your incisions unless directed byyour doctor. You will be provided with an abdominal binder or girdle. Wear it 24 hours a day for 4 to 6 weeks, removing it briefly to shower. If any of these occur, contact your doctor right away - 1) Signs of infection: A temperature over 100.4'F or 38'C. Redness or warmth spreading away from the incision lines after the first 48 hours. Yellow pus-like or foul smelling drainage larger than dime size from the incisions or drainage sites. 2) Seromas/Hematoma: Before or after your drains are removed, if you notice localized swelling thiscould be a collection of fluid under the skin at or near the incision site. 3) Increased pain or discomfort that is not relieved by your pain medicine. During office hours: Saturday through Saturday 8 am to 5 pm Call [phone] On weekends or after hours: Call [phone] and ask the gang bore operator to page the Plastic Surgery Resident manager online. Prescription Line: Call the line at [phone] from 8am-4pm Saturday through Saturday. Narcotic renewals will not be honored after hours or on weekends. Make your request a few days before you run out as it make take up to 24 hours for physician approval. General Instructions None Discharge References/Attachments: Discharge References/Attachments None CC: CHANTELL MIMS APRN Signed: LIAM WILKINSON MD 06/15/2015 pgr [phone] Attending Documentation: I have independently seen and examined the patient and agree with the above findings, formulation and plan. Any changes to the above plan have been documented within the above note. Carlee Montenegro MD documented in this encounter Discharge Instructions * Patient Instructions* Liam Wilkinson MD - 06/15/2015 2:47 PM EST Instructions for breast reduction surgery What to Expect.... ?? The healing process after breast reduction surgery varies with each person. You should expect tofeel tired for the first 2 - 3 weeks due to anesthesia and the healing process. Rest often during the day and get a good night sleep. Pain (short term and terminal supervisor) ?? With any surgery there is some discomfort or pain. We will prescribe pain medication. Take as prescribed and only as needed. OK to take Tylenol, do not exceed 3 grams per day. OK to add Ibuprofen 48 hours after surgery. ?? We recommend taking an edxp-nup-Favpbgk stool softener, such as Colace (docusate) or a gentle laxative while taking your narcotic pain reliever. This will help to maintain bowel regularity and prevent straining. Drink plenty of water. ?? You will may have nerve pain after your surgery because the nerve endings have been disturbed. Nerve pain may feel like a burning sensation, itching or a shooting, electric shock pain. This is normal and will get better as you heal. Swelling ?? Moderate bruising and swelling is normal in the first few weeks after surgery. The swelling willgradually go down, but it may remain for 3 to 6 months. ?? To help with swelling wear your compression bra. ?? Do not use heat or ice on your surgical site. Drains ?? Record drain output and bring to your first clinic appointment with you. Based on the nursing assessment, your drain will likely be removed at this appointment. ?? The nurses will show you how to care for the drains Showering ?? You may shower tomorrow. ?? Do not take a bath or use a hot tub until incisions are completely healed. ?? If you have drains in place, tie a shoe lace or string around your neck and attach the drains tothis to prevent accidental removal. ?? Have someone nearby during your first shower. Incisions/Dressings ?? You may have some red, pink, yellow/clear drainage from your incisions for the first 1-2 weeks. Change gauze as needed. Continue to use dressings until there is no more drainage. ?? You had a vertical reduction (lollipop incision) and you have a xeroform gauze with tape at the bottom of your incision. You need to make sure xeroform gauze is always in place and paper tape to encourage the dog-ear to settle. DO???S AND DON???TS FOR THE NEXT 6 WEEKS ?? Do not drive a motor vehicle for 1-2 weeks or until you can handle the steering wheel without discomfort. Do not drive while taking your narcotic. You will be able to wear a seat belt if you placea small pillow over your chest area. ?? Do not engage in sexual activity for at least 1 week. ?? Do not smoke or be around anyone who smokes for 2 weeks after your surgery. Smoking delays healing and can lead to infection. ?? Do not lift more than 5 pounds or bend at the waist to lift for 6 weeks. ?? Do not participate in strenuous activities such as running or aerobics for 6 weeks. ?? Do resume walking at a gentle pace. ?? Protect your incisions from the sun for 6 months. ?? You may return to work in 1-6 weeks (average time is 3 weeks) depending upon your work activity. GETTING OUT OF BED ?? You will be asked to limit the use of your arms for a few weeks after surgery. This can be a problem when trying to get out of bed. The following suggestions help you get out of bed with minimal use of your arms. ?? When in bed, pull your knees up towards your chest and tip to the side, gently rolling out of bed. Take care not to roll onto your breasts. ?? Create a nest of pillows to prop you in a semi-upright position helps give you that extra boost to get out of bed. ?? Have someone put gentle pressure to your lower shoulder blades as you sit up. This gives you theextra power you need to get to your feet. Complications: Call your doctor with the following signs of infection: ?? A temperature over 100.4 F or 38 C ?? Redness at the incision line that spreads away from the incision after the first 48 milo thick yellow, foul smelling drainage ?? Increasing pain that is not relieved by your pain medicine ?? One breast becomes much larger and more firm than the other Contact your Doctor ?? To make an appointment or for questions about scheduling, please contact our administrative offices at [phone] ?? For clinical questions, please call our nurses at [phone] ?? Both offices are open Saturday thru Saturday 8a - 5p. With emergencies after hours, call the hospital gang bore operator at [phone] and ask for the Plastic Surgery Resident manager online. Instructions for Abdominal Surgery During the first 1 to 3 weeks, expect to feel tired from the anesthesia and in general, due to the healing process. Rest frequently during the day, and limit visitors until you feel more up to it. Altered sensation (such as shooting or burning pain) or numbness is common after surgery. Normal ornear normal sensation should return within a few months but some areas may stay numb permanently. You will be able to return to work in 4-6 weeks. You will not be able to lift more than 5 pounds for 6 weeks and no more than 10- 20 pounds for 3 months. No strenuous exercise (tennis, aerobics, jogging) for 3 months. Feel free to walk as much as you want. Walking improves circulation, respiratory function and healing. You will not be able to drive for 2-3 weeks or while taking you pain medication. You may wear your safety belt if you place a small pillow over your abdominal incision. No sexual activity for 6 weeks. No smoking for at least 2 weeks following your surgery. POSTOPERATIVE DRAIN AND INCISION CARE Your hospital nurse will review your drain care. You will learn how to strip, measure, and record the total amount of fluid from each drain. Call the clinic at [phone] and schedule an appointment with the nurses to have your drains removed when the drainage is 30cc or less in a 24 hour period for 2 days in a row. Note: Generalized abdominal swelling above the incision may last for several weeks to months due totissue fluid build-up. Do not use ice or heat on your surgical site. You may shower 48 hours after surgery. Do not take a bath or use a hot tub until your skin is completely healed. To reduce the strain on your incision, you should remain in a hunched over position for about 7 days- this may take longer in some instances so let your body be your guide. You may remove your dressings after 48 hours. If you feel more comfortable with dressings under thebinder, then you may replace them to suit your comfort needs. If present, nonabsorbable stitches are removed in 2 weeks. Spitting sutures: Occasionally an area of redness and tenderness develops where a dissolving stitchbecomes irritated and pushes to the surface. If this occurs, it is not an emergency. You may clip the stitch with a clean scissor or call for an appointment with a nurse. No tanning on incision lines for at least 6 months to minimize scarring. No over the counter lotions, solutions, or herbal preparations on your incisions unless directed byyour doctor. You will be provided with an abdominal binder or girdle. Wear it 24 hours a day for 4 to 6 weeks, removing it briefly to shower. If any of these occur, contact your doctor right away - 1) Signs of infection: A temperature over 100.4'F or 38'C. Redness or warmth spreading away from the incision lines after the first 48 hours. Yellow pus-like or foul smelling drainage larger than dime size from the incisions or drainage sites. 2) Seromas/Hematoma: Before or after your drains are removed, if you notice localized swelling thiscould be a collection of fluid under the skin at or near the incision site. 3) Increased pain or discomfort that is not relieved by your pain medicine. During office hours: Saturday through Saturday 8 am to 5 pm Call [phone] On weekends or after hours: Call [phone] and ask the gang bore operator to page the Plastic Surgery Resident manager online. Prescription Line: Call the line at [phone] from 8am-4pm Saturday through Saturday. Narcotic renewals will not be honored after hours or on weekends. Make your request a few days before you run out as it make take up to 24 hours for physician approval. documented in this encounter Medications at Time of Discharge Medication Sig Dispensed Refills Start Date End Date acetaminophen (TYLENOL) 500 mg Tablet Take 2 tablets by mouth every 6 hours as needed for Pain (for MODERATE pain). 30 tablet 1 06/15/2015 docusate sodium (COLACE) 100 mg Capsule Take 1 capsule by mouth 2 times daily for 10 days. 10 capsule 0 06/15/2015 06/25/2015 HYDROmorphone (DILAUDID) 2 mg Tablet Take 1 tablet by mouth every 4 hours as needed for Pain. 50 tablet 0 06/15/2015 07/29/2015 omega-3 acid ethyl esters (LOVAZA) 1 gram Capsule Take 2 g by mouth 2 times daily. 2 capsules 12/06/2017 niacin (NIASPAN ER) 500 mg Tablet Sustained Release 24 hr Take 1,000 mg by mouth nightly. 12/06/2017 fluticasone (FLONASE) 50 mcg/actuation [place], Suspension 1 spray daily. 06/23/19 16 BUDESONIDE/FORMOTEROL FUMARATE (SYMBICORT INHL) Inhale into the lungs. 12/06/2017 THYROID,PORK (ARMOUR THYROID ORAL) Take by mouth. 06/28/2015 ASCORBATE CALCIUM (VITAMIN C ORAL) Take by mouth. ERGOCALCIFEROL, VITAMIN D2, (VITAMIN D ORAL) Take by mouth. 09/03/2022 traZODone (DESYREL) 100 mg tablet Take 100 mg by mouth nightly. 12/06/2017 multivitamin (THERAGRAN) tablet Take 1 tablet by mouth daily. 09/03/2022 fexofenadine (EVANGELINA) 180 mg tablet 180 mg, PO, Once daily 08/28/2010 09/03/2022 DOCOSAHEXANOIC ACID/EPA (FISH OIL ORAL) 08/28/2010 12/06/2017 CALCIUM/MAGNESIUM (CALCIUM AND MAGNESIUM ORAL) 08/28/2010 12/06/2017 Mometasone (NASONEX) 50 mcg/Actuation [place] 2 [place](s) each nostril, Nasal, Twice daily 08/28/2010 09/03/2022 documented as of this encounter Progress Notes * Jyoti Ingram RN - 06/15/2015 4:43 PM EST I assumed care for this [atoient from [id number]. Patient discharged to home. IV removed, site benign. My assessment remains unchanged from my previous assessment. Discussed pain management with patient, pain tolerable. Patient medicated prior to discharge. Patient has all belongings and supplies needed. Patient received AVS and prescriptions. These were reviewed, patient verbalizes understanding of AVS. All questions answered. Patient encouraged to call with questions or concerns. Patient givendrain care and verbalizes understanding of drain care. . Patient discharged to home with family. [facility] to [facility]. Message left with [facility] answering services. JYOTI INGRAM RN * Asia Malin RN - 06/15/2015 3:17 PM EST Yessenia Luong Female, 65 y.o., 1950 list of Home Health Agencies/DMEs which serve the geographic area which the patient resides or the geographic area requested by the patient/customer service representative teacher was made available.Full Disclosure Statementprovided, as appropriate. Patient requests referral to [facility]. Referral matched w agency/vendor and info provided via [facility] * Wilman Jacobo MD - 06/14/2015 11:55 PM EST Post-Operative Progress Note Patient: Yessenia Luong s/p Surgery: 06/14/2015 [id number] Procedure(s) (LRB): REDUCTION MAMMOPLASTY, ADAM (Bilateral) ABDOMINOPLASTY (N/A) SUCTION ASSISTED LIPECTOMY,TRUNK (Bilateral) Surgeon(s) and Role: * Carlee Montenegro MD - Primary * Dudley Kramer MD: 3 Hr 37 Min 29 Sec * No complications entered in OR log * Short History: awakened from anesthesia, extubated and taken to the recovery room in a stable condition, having suffered no apparent untoward event. Patient location: [facility] Surgical Floor Post-op Consciousness awake, alert and oriented Post-op pain: Adequate analgesia Post-op nausea: no nausea or vomiting Post-op Cardiovascular Status: No chest pain Post-op Respiratory Status: No shortness of breath Post-op Wound Status No redness, discharge and disability clean, dry, intact Pain: in incision Subjective/Events: Patient denies chest pain, shortness of breath, dizziness, headache, abdominal pain, nausea, vomiting. Objective: Vitals: Temp: [36.3 ??C (97.3 ??F)-36.6 ??C (97.9 ??F)] Heart Rate: [61-82] Resp: [13-22] BP: (110-137)/(54-66) SpO2: [95 %-100 %] Intake/Output Summary (Last 24 hours) at 06/14/15 2355 Last data filed at 06/14/15 2100 Gross per 24 hour Intake 2400 ml Output 530 ml Net 1870 ml Exam: General: NAD, awake/alert, responds to questions appropriately HEENT: EOMI, normocephalic, atraumatic Cardiac: RRR, S1/S2, No M/R/G Resp: Breathing comfortably on 2L NC, CTAB Abd: Abdominal binder in place, 4 SUE drains with SS discharge, R lower drain empty, the rest more sanguinous than serous Ext: WWP. Moving all 4 spontaneously. Neuro: No focal deficits. CN II-XII grossly intact. Wound: Dressing: clean, dry, intact A/P: 65 y.o. year old female POD#0 s/p above procedure. she is having the following post op complications: none - Vitals stable - Continue all post-operative care WILMAN JACOBO MD 06/14/2015 11:55 PM * Soni Zambrano RN - 06/14/2015 10:23 PM EST Patient arrived to floor from PACU alert and oriented x 3. Patient states minimal pain. Educated and discussed pain management with patient. Patient verbalizes understanding of pain control. Patient denies chest pain, SOB, or nausea. Surgical bra/dressing and abdominal binder/dressing intact without drainage. 4 SUE drains present. Lung sounds clear. Apical HR regular. Pt due to void around 0000. Pt requesting home dose of trazodone 175 mg for sleep. Pt confirmed with that he brought all her belongings home. Oriented patient to room, call yousif is within reach. Will continue to monitor. * Nan Benz RN - 06/14/2015 7:44 PM EST Arrived pacu #3, monitors placed, alarms set, abd. Binder in place, no obvious bleed, binder bra inplace. HOB at 30 degrees per order. 20:15 denies pain, clint PO with no nausea 21:00 SUE drains labeled, emptied, VSS 21:15 bscan 58cc, meets D/C criteria, report to Nicki MONTES documented in this encounter H&P Notes * Carlee Montenegro MD - 06/14/2015 3:33 PM EST 24 HOUR INTERVAL H&P S: Yessenia Luong's condition unchanged since H&P originally performed Denies any new ED visits, hospitalizations, trauma, or new events. Has been overall doing well. O: Patient Vitals for the past 24 hrs: BP Temp Pulse Resp SpO2 Height Weight 06/14/15 1223 119/70 mmHg 36.7 ??C (98.1 ??F) 62 17 97 % 162.6 cm (5' 4) 85.3 kg (188 lb 0.8 oz) NAD Non-labored, CTAB RRR Site marked AP: 65 y.o. female with Breast Hypertrophy and abdominal pannus. - After extensive discussion of the risks, benefits, and alteratives of surgical intervention, the patient consented to proceed with surgery. - IV antibiotics ordered - Proceed to OR for: Procedure(s): REDUCTION MAMMOPLASTY, ADAM ABDOMINOPLASTY SUCTION ASSISTED LIPECTOMY,TRUNK Dudley Kramer MD Plastic Surgery Resident, PGY-6 There have been no interval changes in the health of the patient. I have examined and marked her and we will proceed with breast reduction, lateral chest liposuction and abdominoplasty with possible fascial plication today. We have discussed the skin marking. We have re-reviewed the risks includingscar, infection, bleeding/hematoma, seroma, skin loss, delayed healing, contour irregularity, fat necrosis, sensation loss, spitting sutures and asymmetry and she wishes to proceed. Carlee Montenegro MD documented in this encounter Miscellaneous Notes * Plan of Care - Rick Marshall RN - 06/15/2015 7:56 AM EST Problem: General Plan of Care Goal: Fall Prevention-Safe Patient Handling Outcome: Ongoing (Interventions Implemented as Appropriate) 06/14/15 1944 06/15/15 0500 06/15/15 0542 Safety Interventions Safety Precautions/Fall Reduction -- fall reduction program maintained -- Smith Fall Risk History of Falling -- -- 0 Secondary Diagnosis -- -- 15 Ambulatory Aids -- -- 0 Intravenous Therapy/Heparin/Saline Lock -- -- 20 Gait/Transferring -- -- 0 Mental Status -- -- 0 Score -- -- 35 Musculoskeletal Interventions Positioning HOB up 30 degrees -- -- OUTCOME EVALUATION NOTE: OUTCOME SUMMARY: Pt with no problems overnight. Surgical bra and abdominal Binder in place, dressings intact and no drainage noted. 4 SUE's draining serosanguinous fluid in varying amounts. Pt. Ambulated to BR with one assist with flexion 30deg maintained. Voiding fozia urine. Unable to bladder scan due to bulky dressing. Pt. Taking dilaudid with good effect. Pt. On 3L O2. Masimo on. PLAN MOVING FORWARD: INDIVIDUALIZED FALL PREVENTION: Assistance: Supervision: Surveillance: CPG GOAL OUTCOME EVALUATION: Goal: Infection Control Outcome: Ongoing (Interventions Implemented as Appropriate) 06/15/15 0750 Safety Interventions Isolation Precautions standard precautions maintained Coping/Psychosocial Response Interventions Counseling emotional support provided;reassurance provided;problem solving facilitated;understanding of situation facilitated * Op Note - Carlee Montenegro MD - 06/14/2015 8:03 PM EST [facility] [place] Patient Name: Yessenia Luong : [id number] MR#: [id number] Case Date: 06/14/2015 Surgeon: Surgeon(s) and Role: * Carlee Montenegro MD - Primary * Dudley Kramer MD Preoperative diagnosis: Breast Hypertrophy Postoperative diagnosis: Breast Hypertrophy Procedure(s): REDUCTION MAMMOPLASTY, ADAM ABDOMINOPLASTY SUCTION ASSISTED LIPECTOMY,TRUNK Anesthesia: Anesthesia type not filed in the log. Estimated Blood Loss: 200 cc Specimens removed during surgery: Left and right breast tissue Drains: Drain/Device Site 06/14/15 Left breast collapsible closed device (Active) Drain/Device Site 06/14/15 Right breast collapsible closed device (Active) Drain/Device Site 06/14/15 Left abdomen collapsible closed device (Active) Drain/Device Site 06/14/15 Right abdomen collapsible closed device (Active) Surgical Closure: Primary Closure - closure of ALL tissue levels during the original surgery regardless of wires, wickes, drains, or other devices extruding through the incision Disposition: awakened from anesthesia, extubated and taken to the recovery room in a stable condition, having suffered no apparent untoward event. Condition: doing well without problems (Please see the Surgical Encounter Summary for any Implant and Specimen details pertinent to this patient.) HPI/Surgical Indications: Yessenia is a 65 yo F who presents with macromastia and abdominal pannus with diastasis for breast reduction with lateral chest liposuction and abdominoplasty with plication. Procedure Description: The patient was marked in the preoperative area in the standing and sitting position and all risks and post-operative care reviewed. A preoperative dose of antibiotics was given. The patient was then brought to the operating room where she was placed on the OR table in the supine position. SCD boots were placed and general anesthesia induced. Her chest and trunk were then prepped and draped in the standard sterile fashion. Immediately prior to the start of the procedure, the procedural care team participated in an active process whereby the following were confirmed and agreed upon by all present: patient's identity, intended procedure, including site and side; correct positioning/presence of echo; and availability of special equipment/implant. We began with the breast reduction. Through small stab wounds, the breasts were infiltrated each with a total of 150 cc of tumescent solution of saline, epinephrine and xylocaine. Each lateral breast region was also tumesced in preparation for the liposuction with 200 cc of tumescent solution. The precise outline of a generous superomedial pedicle was designed and the areolar diameter was marked using a 42 mm template. Methylene blue was tattooed (using a 25 gauge needle) into the albright anatomic landmarks and quadrants of the areolar diameter. A tourniquet was then wrapped around the base of each breast and the superomedial pedicle was deepithelialized. The remainder of the incisions were made through skin and superficial subcutaneous tissue. The pedicle was then incised down to fascia ensuring the superior and central base of the pedicle was maintained in continuity with the chest wall. Beginning infero-medially, the tissue intervening between the pedicle and where the flaps met the chest wall was then from thepectoralis fascia contiguously from the inferomedial pole to the inferolateral extension. A furthertriangle of subcutaneous fat was excised from the inferior lateral flap to create the lateral breast contour. Once the tissue had been excised bilaterally, the weights of the excised tissue were recorded. The weights were less than I had proposed at our clinic visit but I did not think want to riskthe vascularity to the NAC by excising further superior or medial pedicle tissue and the wall of the lateral flap was already adequately thinned. The incisions were then closed with joaquin and the patient sat upright to verify symmetry and additional tissue taken to ensure symmetry. This tissue was then sent for specimen to pathology. No abnormal masses were noted. A 4 mm Rebeka canula was then chosen and liposuction of 200 cc of lipoaspirate performed to the chest just lateral to the lateral portion of the breast reduction. Multiple passes were made prior to activating the suction for pretunneling. The liposuction was then also performed with multiple passes to avoid any contour irregularity. When I was satisfied with the contour and symmetry, the joaquin were then removed and the breast wounds were then irrigated with warm normal saline. Hemostasis was meticulously achieved with Bov ie cautery. Bilateral drains were placed to exit through stab incisions inferior to the lateral most aspect of the inframammary incisions. Closure was first begun by approximating the 12 o'clock position of the NAC with a deep dermal stitch of 4-0 PDS. The rest of the wound closure was achieved with deep dermal 4-0 PDS and Insorb joaquin and then running subcuticular 4-0 Monocryl. In each drain 10 cc of 1/4% Marcaine with epinephrine was injected and allowed to rest 20 minutes. The breasts weresymmetrical at the end of the case and there was good color/perfusion of the NAC complex bilaterally. We then turned our attention to the abdomen. Through small stab incisions, the abdomen was infiltrated with a total of 300 cc of tumescent solution. The markings were the confirmed. The umbilicus wasmarked at all 4 quadrants with methylene blue. The perumbilical incision was then made with a 15-blade and the umbilical stalk developed with [place] scissor dissection. A 0-Vicryl suture was placed at 12 o'clock. Then the inferior skin incision was made and with the electrocautery it was extended down to the deep fascia and then superiorally leaving a thin layer of areolar tissue along the surface of the rectus fascia. The abdominal flap was undermined up to the costal margin. Centrally, I protect ed the integrity of the umbilical stalk. The bed was then flexed and the flap was then split in themidline and pulled inferiorly and the extent of resection planned without any tension on the closure. The superior excisional line was then marked, cut and the excess skin removed. The pannus weighed2.155 Kg. We then returned her to the flat supine position and performed the infra and supra-umbilicial midline plication. This was performed with buried figure of 8 0- Vicryl sutures then a running 0-PDS suture. No changes in ventilation occurred. The bed was then flexed again and the wound temporarily stapled closed and symmetry verified. The wound was then opened by removing the joaquin and onc e again, hemostasis was assured. The wound was irrigated copiously with warm sterile saline, hemostasis reverified and the superior skin flap was approximated to the lower incision in the midline using joaquin. The new site for the umbilicus was determined, an inverted V-incision made and deepened t hrough the abdominal flap and the previously placed suture brought out. Two 19 Dick drains were placed in the wound and brought out through lateral stab incisions inferior to the wound incision. Thedrains were each secured with 2-0 Prolene sutures. Hemostasis at each drain site and at the umbilical site was verified and the remaining wound was then stapled close to avoid any dog ear. Closure ofthe abdomen was then undertaken with a deep layer of 0 Vicryl in Raya's fascia, interrupted buried deep dermal 3-0 Vicryl and Insorb joaquin and finally a running subcuticular of 4-0 Monocryl. Completion of the umbilical inset was done with deep dermal 4-0 PDS and 5-0 fast absorbing gut half buried mattress sutures. Each drain was then injected with 15 cc of 1/4% Marcaine with epinephrine and clamped. All sponge and needle counts were correct. All wound were dressed with dermabond, steristrips and a sterile dressing and the patient placed in an abdominal binder and surgical bra. There were no complications and the procedure was well tolerated. Infection Bundle used? N/A Attestation: Case Date: 06/14/2015 I was present and I participated during the entire procedure. CARLEE MONTENEGRO MD 06/14/2015 * Brief Op Note - Dudley Kramer MD - 06/14/2015 7:47 PM EST Brief Operative Note Patient Name: Yessenia Luong : [id number] MR#: [id number] Case Date: 06/14/2015 Surgeon: Surgeon(s) and Role: * Carlee Montenegro MD - Primary * Dudley Kramer MD Preoperative diagnosis: Breast Hypertrophy Postoperative diagnosis: Breast Hypertrophy Procedure(s): REDUCTION MAMMOPLASTY, ADAM ABDOMINOPLASTY SUCTION ASSISTED LIPECTOMY,TRUNK Anesthesia: General Findings: Bilateral breast reduction with powell pattern and superior medial pedicle. Left breast 470grams. Right breast 460 grams. Abdominoplasty with umbilical transposition and fascial plication (2.115 Kg removed). Liposuction to bilateral axilla/lateral chest for 200 cc per side. Complications: None Fluids: 2.3L Estimated Blood Loss: 150 ml Drains: SUE to each breast. SUE to bilateral abdomen. Disposition: awakened from anesthesia, extubated and taken to the recovery room in a stable condition, having suffered no apparent untoward event. Condition: doing well without problems (Please see the Surgical Encounter Summary for any Implant and Specimen details pertinent to this patient.) Infection Bundle used? N/A documented in this encounter Plan of Treatment Upcoming Encounters Date Type Department Care Team (Late st Contact Info) Description 03/13/2024 9:45 AM EDT Office Visit Dermatology at [facility] [address] [place] [phone] Emiliano Salinas MD [address] [facility] [place] [address] documented as of this encounter Procedures Procedure Name Priority Date/Time Associated Diagnosis Comments ECG SCAN 06/16/2015 12:00 AM EST BASIC METABOLIC PANEL Routine 06/15/2015 10:36 AM EST SURGICAL PATHOLOGY REPORT Routine 06/14/2015 5:25 PM EST SPECIMEN TO PATHOLOGY Routine 06/14/2015 5:25 PM EST SPECIMEN TO PATHOLOGY Routine 06/14/2015 5:25 PM EST SUCTION ASSISTED LIPECTOMY,TRUNK (WRVU 4.95) 06/14/2015 4:04 PM EST Breast Hypertrophy PANNICULECTOMY (WRVU 17.11) 06/14/2015 4:04 PM EST Breast Hypertrophy REDUCTION MAMMOPLASTY, ADAM (WRVU 16.03) 06/14/2015 4:04 PM EST Breast Hypertrophy SUCTION ASSISTED LIPECTOMY,TRUNK Routine 06/14/2015 12:05 PM EST PANNICULECTOMY Routine 06/14/2015 12:05 PM EST documented in this encounter Results * SCAN DOC: ECG (06/16/2015 12:00 AM EST) Scanning Provider MEDIA MGR SCAN EXT O RDR/RSLT * (ABNORMAL) Basic Metabolic Panel (non-fasting) (06/15/2015 10:36 AM EST) Glucose 136 65 - 199 mg/dL CERNER MILLENNIUM Comment:Diabetes: >=200 mg/d L plus symptoms Blood Urea Nitrogen 12 8 - 18 mg/dL CERNER MILLENNIUM Creatinine 0.75 0.70 - 1.20 mg/dL CERNER MILLENNIUM Comment: Please note that the pediatric reference intervals supplied above were not validated at [facility]. Results from pediatric patients should be interpreted in conjunction to the patient's age, height and muscle mass. Sodium 129(L) 135 - 145 mmol/L CERNER MILLENNIUM Potassium 3.6 3.5 - 5.0 mmol/L CERNER MILLENNIUM Comment: Please note: ??Patients with WBC >100,000 may have falsely elevated Potassium levels. ??For accurate Potassium quantification in these patients send serum separator tube (gold top) for subsequent determinations. ??Contact the Clinical Chemistry Laboratory if there are any questions. Chloride 92(L) 98 - 107 mmol/L CERNER MILLENNIUM Carbon Dioxide 25 22 - 31 mmol/L CERNER MILLENNIUM Anion Gap 12 5 - 15 mmol/L CERNER MILLENNIUM Calcium 8.4(L) 8.5 - 10.5 mg/dL CERNER MILLENNIUM Est Glomerular Filtration Rate >60 >=60 CERNER MILLENNIUM Comment: This estimated GFR (eGFR) value was calculated using the MDRD equation which has been validated on patients between the ages of 18 and 70. The MDRD should not be used to assess kidney function in patients < 18 years of age or in patients with extremes of body mass, or in patients with acute kidney failure. This value should be multiplied by 1.2 for patients. For further information please copy and paste the following links into your internet browser. [email or web address] Blood specimen (specimen) 06/15/2015 10:36 AM EST 06/15/2015 10:49 AM EST Narrative Resulting Agency Comment Spec In Lab Carlee Montenegro MD CHEMISTRY ORDERABLES [facility] * Surgical Pathology Report (06/14/2015 5:25 PM EST) Final Diagnosis [id number] ? Location: [facility]; [facility]; [facility] signing pathologist has (i) examined the relevant preparation(s) for the specimen(s) and (ii) rendered or confirmed the diagnosis(es). . ?Surgical Pathology DIAGNOSIS A - Right breast, reduction mammoplasty: ??Benign breast tissue. B - Left breast, reductin mammoplasty: ??Benign breast tissue. 06/17/15 CCB 06/17/15 Verified by: ? Choco DO, Shereen C. ?Pathologist ?(Electronic Signature) The attending pathologist whose signature appears on this report has reviewed all diagnostic slides and has edited the gross and/or microscopic portion of the report in rendering the final pathologic diagnosis. CLINICAL INFORMATION Specimen Submitted: A - Right breast tissue B - Left breast tissue Clinical History: Bilateral breast reduction Clinical Diagnosis: Same SPECIMEN PROCESSING A - Labeled/Fixativ e: Right breast tissue, fresh. Qty/Size/Weight : Multiple, 20.0 x 16.0 x 4.3 cm, 472 grams. Tissue Description: Fibrofatty breast tissue with attached and detached casey-pink skin. Skin: Casey-white, smooth, benign-appearin g. Parenchyma: Adipose and dense, hough-white fibrous tissue. Sections/Proces sing: (R3) B - Labeled/Fixativ e: Left breast tissue, fresh. Qty/Size/Weight : Multiple, 21.0 x 13.0 x 6.0 cm, 492 grams. Tissue Description: Fibrofatty breast tissue with attached and detached casey-pink skin. Skin:-White, smooth, benign-appearin g. Parenchyma: Adipose and dense, hough-white fibrous tissue. Sections/Proces sing: (R3) ?? yal 06/17/2015 10:21 AM EST [facility] BREAST STRUCTURE / Unknown 06/14/2015 5:25 PM EST 06/14/2015 5:25 PM EST BREAST STRUCTURE / Unknown 06/14/2015 5:25 PM EST 06/14/2015 5:25 PM EST Carlee Montenegro MD PATHOLOGY/CYTOLOGY O ELLA KVNG MORAN [facility] [place] [address] * Specimen to Pathology (surgical or derm) (06/14/2015 5:25 PM EST) AP Specimen 06/14/2015 5:25 PM EST 06/14/2015 5:25 PM EST Narrative KV[facility] MORNA - 06/14/2015 5:25 PM EST Specimen requisition ordered. ??Separate Pathology report to follow Carlee Montenegro MD PATHOLOGY/CYTOLOGY O ELLA [facility] MORAN * Specimen to Pathology (surgical or derm) (06/14/2015 5:25 PM EST) AP Specimen 06/14/2015 5:25 PM EST 06/14/2015 5:25 PM EST Narrative [facility] MORAN - 06/14/2015 5:25 PM EST Specimen requisition ordered. ??Separate Pathology report to follow Carlee Montenegro MD PATHOLOGY/CYTOLOGY Trixie JARAMILLO KV[facility] MORAN documented in this encounter Visit Diagnoses Not on filedocumented in this encounter Administered Medications Inactive Administered Medications - up to 3 most recent administrations Medication Order MAR Action Action Date Dose Rate Site acetaminophen (TYLENOL) tablet 1,000 mg 1,000 mg, Oral, EVERY 6 HOURS PRN, Starting on Sat06/14/15 at 2004, Until Sat06/15/15 at 1908, Pain, for MODERATE pain, Do not exceed 4,000 mg in 24 hours, Routine Given 06/15/2015 3:35 PM EST 1,000 mg Given 06/15/2015 9:42 AM EST 1,000 mg Given 06/15/2015 3:32 AM EST 1,000 mg BUpivacaine-EPINEPHrine 0.25 %-1:200,000 injection ONCE PRN, Starting on Sat06/14/15 at 1921, Until Sat06/14/15 at 2159, Intra-Operative (Intra-Procedure), Routine Given 06/14/2015 7:21 PM EST 30 mLs 13- Abdomen (Left) ceFAZolin (ANCEF) 2g in dextrose 5% 50 mL 2 g, Intravenous, EVERY 8 HOURS, 2 doses, First dose on Sat06/14/15 at 2030, Last dose on Sat06/15/15 at 0430, Administer over 30 Minutes, *Beta-lactam based antibiotics (eg. Ampicillin, Cefazolin, Aztreonam) should be administered within 4 hours of the preceding intraoperative dose. *Vancomycin, Flouroquinolones, Clindamycin, Gentamicin, and Metronidazole should be administered within 8 hours of the preceding intraoperative dose., Recovery (Recovery-Hospital Unit), Indication for (Active or Suspected): Prophylaxis Given 06/15/2015 12:30 AM EST 2 g 100 mL/hr docusate sodium (COLACE) capsule 100 mg 100 mg, Oral, 2 TIMES DAILY, First dose on Sat06/14/15 at 2230, Until Discontinued, Routine Given 06/15/2015 9:14 AM EST 100 mg enoxaparin (LOVENOX) injection 40 mg 40 mg, Subcutaneous, DAILY, First dose on Sat06/15/15 at 0200, Until Discontinued, Routine Given 06/15/2015 9:16 AM EST 40 mg HYDROmorphone (DILAUDID) tablet 2 mg 2 mg, Oral, EVERY 4 HOURS PRN, Starting on Sat06/14/15 at 2208, Until Sat06/15/15 at 1908, Pain, Use if acetaminophen and/or ibuprofen ineffective. May repeat once in 60 minutes if pain not relieved., Routine Given 06/15/2015 3:34 AM EST 2 mg Given 06/14/2015 11:54 PM EST 2 mg lactated ringers infusion 1,000 mL 1,000 mL, at 100 mL/hr, Intravenous, CONTINUOUS, Starting on Sat06/14/15 at 1245, Until Sat06/14/15 at 2159, Day of Surgery (Day of Procedure) New Bag 06/14/2015 7:23 PM EST New Bag 06/14/2015 5:24 PM EST New Bag 06/14/2015 12:47 PM EST 1,000 mLs 100 mL/hr lidocaine (XYLOCAINE) 10 mg/mL (1 %) injection 3 mg 3 mg (0.3 mL), Subcutaneous, ONCE PRN, 1 dose, Starting on Sat06/14/15 at 1220, Until Sat06/14/15 at 1247, for discomfort with PIV insertion, Day of Surgery (Day of Procedure), Routine Given 06/14/2015 12:47 PM EST 3 mg methylene blue 1 % (10 mg/mL) injection ONCE PRN, Starting on Sat06/14/15 at 1808, Until Sat06/14/15 at 2159, Intra-Operative (Intra-Procedure), Routine Given 06/14/2015 6:08 PM EST 10 mg 19- Surgical Site niacin (NIASPAN ER) ER tablet 1,000 mg 1,000 mg, Oral, NIGHTLY, First dose on Sat06/14/15 at 2300, Until Discontinued, DO NOT CRUSH OR OPEN, Routine Given 06/14/2015 11:43 PM EST 1,000 mg sodium chloride 0.9 % flush 5 mL 5 mL, Intravenous, 2 TIMES DAILY, First dose on Sat06/14/15 at 2230, Until Discontinued, Recovery (Recovery-Hospital Unit), Routine Given 06/15/2015 9:15 AM EST 5 mLs sodium chloride 0.9% infusion 100 mL/hr, Intravenous, CONTINUOUS, Starting on Sat06/14/15 at 2030, Until Sat06/15/15 at 1908, Recovery (Recovery-Hospital Unit) New Bag 06/14/2015 8:30 PM EST 100 mL/hr 100 mL/hr traZODone (DESYREL) tablet 100 mg 100 mg, Oral, NIGHTLY, First dose on Sat06/14/15 at 2300, Until Discontinued, Routine Given 06/14/2015 11:43 PM EST 100 mg documented in this encounter Active and Recently Administered Medications Times are shown in EST. Scheduled Medication Order 06/13/2015 06/14/2015 06/15/2015 ceFAZolin (ANCEF) 2g in dextrose 5% 50 mL () 2 g, Intravenous, EVERY 8 HOURS, 2 doses, First dose on Sat06/14/15 at 2030, Last dose on Sat06/15/15 at 0430, Administer over 30 Minutes, *Beta-lactam based antibiotics (eg. Ampicillin, Cefazolin, Aztreonam) should be administered within 4 hours of the preceding intraoperative dose. *Vancomycin, Flouroquinolones, Clindamycin, Gentamicin, and Metronidazole should be administered within 8 hours of the preceding intraoperative dose., Recovery (Recovery-Hospital Unit), Indication for (Active or Suspected): Prophylaxis 0030 (Given - Provid er: Rick Marshall RN)0430 (Not Given - Provider: Rick Marshall RN - Reason: See comment - Comment: time change) docusate sodium (COLACE) capsule 100 mg 100 mg, Oral, 2 TIMES DAILY, First dose on Sat06/14/15 at 2230, Until Discontinued, Routine 2225 (Not Given - Provider: Soni Zambrano RN - Reason: Patient/family refused) 0914 (Given - Provider: Beth Peterson, JYOTI) enoxaparin (LOVENOX) injection 40 mg (CANCELED) 40 mg, Subcutaneous, DAILY, First dose on Sat06/15/15 at 0200, Until Discontinued, Routine 0916 (Given - Provid er: Beth Peterson RN - Comment: ordered for 0900) niacin (NIASPAN ER) ER tablet 1,000 mg (CANCELED) 1,000 mg, Oral, NIGHTLY, First dose on Sat06/14/15 at 2300, Until Discontinued, DO NOT CRUSH OR OPEN, Routine 2343 (Given - Provider: Rick Marshall RN) sodium chloride 0.9 % flush 5 mL (CANCELED) 5 mL, Intravenous, 2 TIMES DAILY, First dose on Sat06/14/15 at 2230, Until Discontinued, Recovery (Recovery-Hospital Unit), Routine 2230 (Not Given - Provider: Soni Zambrano RN - Reason: See comment - Comment: IV infusing) 0915 (Given - Provider: Beth Peterson RN) traZODone (DESYREL) tablet 100 mg (CANCELED) 100 mg, Oral, NIGHTLY, First dose on Sat06/14/15 at 2300, Until Discontinued, Routine 2343 (Given - Provider: Rick Marshall RN) Continuous Medication Order 06/13/2015 06/14/2015 06/15/2015 lactated ringers infusion 1,000 mL (CANCELED) 1,000 mL, at 100 mL/hr, Intravenous, CONTINUOUS, Starting on Sat06/14/15 at 1245, Until Sat06/14/15 at 2159, Day of Surgery (Day of Procedure) 1247 (New Bag - Provider: Stacey Davis RN)1626 (Anesthesia Volume Adjustment - Provider: Sergey Munoz CRNA)1724 (New Bag - Provider: Sergey Munoz CRNA)1923 (New Bag - Provider: Sunita Washington MD)1952 (Anesthesia Volume Adjustment - Provider: Sunita Washington MD) sodium chloride 0.9% infusion (CANCELED) 100 mL/hr, Intravenous, CONTINUOUS, Starting on Sat06/14/15 at 2030, Until Sat06/15/15 at 1908, Recovery (Recovery-Hospital Unit) 2030 (New Bag - Provider: Nan Clement RN) PRN Medication Order 06/13/2015 06/14/2015 06/15/2015 acetaminophen (TYLENOL) tablet 1,000 mg 1,000 mg, Oral, EVERY 6 HOURS PRN, Starting on Sat06/14/15 at 2004, Until Sat06/15/15 at 1908, Pain, for MODERATE pain, Do not exceed 4,000 mg in 24 hours, Routine 2127 (Given - Provider: Nan Clement RN) 033 (Given - Provider: Rick Marshall RN)0942 (Given - Provider: Beth Peterson, JYOTI)1535 (Given - Provider: Beth Peterson, JYOTI) BUpivacaine-EPINEPHrine 0.25 %-1:200,000 injection (CANCELED) ONCE PRN, Starting on Sat06/14/15 at 1921, Until Sat06/14/15 at 215, Intra-Operative (Intra-Procedure), Routine 1920 (Given - Provider: Carlee Montenegro MD - Comment: Injected into drain) HYDROmorphone (DILAUDID) tablet 2 mg 2 mg, Oral, EVERY 4 HOURS PRN, Starting on Sat06/14/15 at 2208, Until Sat06/15/15 at 1908, Pain, Use if acetaminophen and/or ibuprofen ineffective. May repeat once in 60 minutes if pain not relieved., Routine 2353 (Given - Provider: Rick Marshall RN) 033 (Given - Provider: Rick Marshall RN) lidocaine (XYLOCAINE) 10 mg/mL (1 %) injection 3 mg (COMPLETED) 3 mg (0.3 mL), Subcutaneous, ONCE PRN, 1 dose, Starting on Sat06/14/15 at 1220, Until Sat06/14/15 at 1247, for discomfort with PIV insertion, Day of Surgery (Day of Procedure), Routine 1247 (Given - Provider: Jesus Davis RN) methylene blue 1 % (10 mg/mL) injection (CANCELED) ONCE PRN, Starting on Sat06/14/15 at 1808, Until Sat06/14/15 at 2159, Intra-Operative (Intra-Procedure), Routine 180 (Given - Provider: Carlee Montenegro MD) documented in this encounter Care Teams Retail Shift Leader Relationship Specialty Start Date End Date Chantell Mims APRN PCP - General 07/09/13 05/09/16 documented as of this encounter
--- OUTSIDE RECORDS SUMMARY | 2024-02-15 13:17 | XMS_ITS | Encounter Summary ---
Author Organization [facility] [place] [address] Care Team Providers Care Hat Copyist Name Role Phone Juan Smith MD Primary Care Provider [phone] Encounter Details Date Type Department Care Team (Latest Contact Info) Description 02/13/2019 11:20 AM EDT Clinical Support Cardiology at [address] [address] Derick Acosta, RD [facility] [place] [address] Nutritional counseling Social History Tobacco Use Types [...] Progress Notes * Derick Acosta, RD - 02/13/2019 11:20 AM EDT Date 02/13/2019 Patient Name Yessenia Luong 1950 Referred by: Selvin For (what diagnosis) Overweight, elevated triglyerides Patient wants to achieve today: I know what I need to eat, I just haven't been doing it. Activity/Exercise:not addressed today Social History Tobacco Use Smoking Status Former Smoker ??? Packs/day: 0.25 ??? Years: 10.00 ??? Pack years: 2.50 ??? Types: Cigarettes Smokeless Tobacco Never Used CHEMISTRIES: 25-OH Vit D Total (ng/mL) Date Value Status 12/06/2017 41 Final Lipid Panel Lab Results Component Value Date CHLPL 324 02/13/2019 HDL 68 02/13/2019 CHOLHDL 4.8 02/13/2019 TRIG 183 02/13/2019 LDLCHOL 219 02/13/2019 Apolipoprotein(a) Apolipoprotein(b) C-reactive protein PATIENT ACTIVE PROBLEM LIST: Med Hx (Diagnoses) Active Ambulatory Problems Diagnosis Date Noted ??? 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 Rosacea 04/24/2011 ??? THERESA (obstructive sleep apnea) 11/21/2011 ??? Osteoarthritis 11/22/2011 ??? Hypercholesteremia 11/22/2011 ??? Urinary incontinence, urge 01/08/2012 ??? Solar lentigo 08/07/2013 ??? Female pattern alopecia 08/07/2013 ??? Allergy to insect stings 09/01/2013 ??? Allergic rhinoconjunctivitis 09/01/2013 ??? Mild intermittent asthma 09/01/2013 ??? Environmental allergies 09/01/2013 ??? Chronic urticaria 09/01/2013 ??? Macromastia 02/08/2015 ??? Status post bilateral breast reduction 06/28/2015 ??? Status post abdominoplasty 07/29/2015 Resolved Ambulatory Problems Diagnosis Date Noted ??? No Resolved Ambulatory Problems Past Medical History: Diagnosis Date ??? Hypothyroidism ??? Obesity (BMI 30.0-34.9) ??? Seasonal allergies MEDICAL NUTRITION THERAPY ASSESSMENT: Food Frequency Questionnaire not completed today. 24-hour food recall not completed today. Discussed the role of carbohydrates in elevating triglycerides. MEDICAL NUTRITION INTERVENTION: a) Food & Symptom Record-keeping. Suggested using Zoomingo karina to track intakes. NUTRITION EDUCATION: Discussed role of carbohydrates in triglycerides and glucose regulation. Provided cardio-metabolic diet pattern for 1400 kcals with recipe booklet. Pt took to review at home. Long-term goals include weight reduction, decrease in triglycerides, decrease weight. a) Increase nutrient-dense and high-fiber, low saturated (15 g), no trans fats foods a. Goal: At least two servings/day sulfur-containing vegetables daily b. Goal: Increase nuts to 1 ounce daily c. Goal: Increase leafy vegetables daily for folate, B6 d. Goal: Increase fiber of all kinds e. Goal: Increase ocean foods intake to at least four times/week for iodine b) Reduce snu-teodcupr-ssche foods NUTRITION MONITORING PLAN/EVALUATION/SURVEILLANCE PLAN: See patient when she returns for her cardiology f/u. Discuss questions and concerns. Do nutrient analysis. documented in this encounter Plan of Treatment Upcoming Encounters Date Type Department Care Team (Late st Contact Info) Description 03/13/2024 9:45 AM EDT Office Visit Dermatology at [place] [address] [facility] [place] [address] Emiliano Salinas MD [address], [place] [address] documented as of this encounter Visit Diagnoses Diagnosis Nutritional counseling documented in this encounter Care Teams Hat Copyist Relationship Specialty Start Date End Date Juan Smith MD [address] [place] [address] PCP - General Family Medicine 05/10/16 09/02/21 documented as of this encounter
--- OUTSIDE RECORDS SUMMARY | 2024-02-15 13:17 | XMS_ITS | Encounter Summary ---
Author Organization [facility] Address [facility] [place] [address] Care Team Providers Care Mold Stamper Name Role Phone Juan Smith MD Primary Care Provider [phone] Encounter Details Date Type Department Care Team (Latest Contact Info) Description 12/13/2017 3:11 PM EDT - 12/13/2017 11:59 PM EDT [place] [address] Natalie [place] MD [facility] [place] [address] Class 1 obesity Discharge Disposition: Home Social History Tobacco Use [...] Sig Dispensed Refills Start Date End Date estradiol (ESTRACE) 0.01 % (0.1 mg/gram) Cream APPLY 1 GRAM VAGINALLY TWICE A WEEK DIRECTED 0 11/12/2017 PROVENTIL HFA 90 mcg/actuation HFA Aerosol Inhaler inhale 2 puffs by mouth if needed 0 10/14/2017 acetaminophen (TYLENOL) 500 mg Tablet Take 2 tablets by mouth every 6 hours as needed for Pain (for MODERATE pain). 30 tablet 1 06/15/2015 buPROPion (WELLBUTRIN) 75 mg TabletIndications:Obesi ty, unspecified classification, unspecified obesity type, unspecified whether serious comorbidity present Take 1 tablet by mouth daily. Increase to 1 tab twice daily after 2 weeks. 60 tablet 12/10/2017 12/27/2017 levothyroxine (SYNTHROID) 50 mcg Tablet Take 50 mcg by mouth daily. 02/13/2019 EVOLOCUMAB SUBQ Inject subcutaneously. 02/13/2019 naproxen (NAPROSYN) 500 mg Tablet as needed. 0 11/27/2017 03/18/2023 olopatadine (PATANOL) 0.1 % Drops instill 1 drop into affected eye twice a day 0 07/05/2017 09/03/2022 azelastine (ASTELIN) 137 mcg (0.1 %) Aerosol, [place] 0 11/06/2017 09/03/2022 ASCORBATE CALCIUM (VITAMIN C ORAL) Take by mouth. ERGOCALCIFEROL, VITAMIN D2, (VITAMIN D ORAL) Take by mouth. 09/03 multivitamin (THERAGRAN) tablet Take 1 tablet by mouth daily. 09/03/2022 fexofenadine (EVANGELINA) 180 mg tablet 180 mg, PO, Once daily 08/28/2010 09/03/2022 Mometasone (NASONEX) 50 mcg/Actuation [place] 2 [place](s) each nostril, Nasal, Twice daily 08/28/2010 09/03/2022 documented as of this encounter Plan of Treatment Upcoming Encounters Date Type Department Care Team (Late st Contact Info) Description 03/13/2024 9:45 AM EDT Office Visit Dermatology at [place] [address] [facility] [place] [phone] Emiliano Salinas MD [address] [facility] [address], [place] [address] documented as of this encounter Procedures Procedure Name Priority Date/Time Associated Diagnosis Comments BIOREPOSITORY REQUEST Routine 12/13/2017 2:00 PM EDT Class 1 obesity documented in this encounter Results * Biorepository Request (12/13/2017 2:00 PM EDT) Biorepository Hold Sample in lab [facility] Stool specimen (specimen) 12/13/2017 2:00 PM EDT 12/24/2017 1:18 PM EDT Narrative Resulting Agency Comment Spec In Lab Natalie [place] MD MOLECULAR ORDERABLES [facility] [place] [phone] documented in this encounter Visit Diagnoses Diagnosis Class 1 obesity documented in this encounter Care Teams Mold Stamper Relationship Specialty Start Date End Date Juan Smith MD [address] [place] [address] PCP - General Family Medicine 05/10/16 09/02/21 documented as of this encounter
--- OUTSIDE RECORDS SUMMARY | 2024-02-15 13:17 | XMS_ITS | Encounter Summary ---
Author Organization [facility] [place] [address] Care Team Providers Care Cold Reduction Roller Name Role Phone Juan Smith MD Primary Care Provider [phone] Reason for Referral * Diagnostic Test (Routine) - Closed Specialty Diagnoses / Procedures Referred By Contac t Referred To Contact Radiology Diagnoses Chest pain, unspecified type SOB (shortness of breath) Procedures NM Pharmacologic Stress Myocardial Perfusion Tory Chambers MD [facility] [place] [address] [place] [address] Referral ID Status Reason Start Date Expiration Date V isits Requested Visits Authorized [id number] Closed Specialty Service Requested 03/05/2019 05/03/2019 1 1 * Diagnostic Test (Routine) - Closed Specialty Diagnoses / Procedures Referred By Contac t Referred To Contact Radiology Diagnoses Chest pain, unspecified type SOB (shortness of breath) Procedures NM Pharmacologic Stress CT Component Tory Chambers MD [facility] [place] [address] [place] [address] Referral ID Status Reason Start Date Expiration Date V isits Requested Visits Authorized [id number] Closed Specialty Service Requested 02/13/2019 02/13/2020 1 1 Reason for Visit * Consultation (Routine) - Closed Specialty Diagnoses / Procedures Referred By Contac t Referred To Contact Cardiology Diagnoses Familial hypercholesterolemia Pt has not tolerated statins or PSK9 agents. Referral to [facility] lipid clinic. Juan Smith MD [facility] [place] [address] Tory Chambers MD [facility] [place] [id number] Referral ID Status Reason Start Date Expiration Date Visits Re quested Visits Authorized [id number] Closed 12/09/2018 12/09/2019 1 1 Encounter Details Date Type Department Care Team (Late st Contact Info) Description 02/13/2019 11:20 AM EDT Office Visit Cardiology at [address] [address] Tory Chambers MD Familial hypercholesterolemia; Chest pain, unspecified type; SOB (shortness of breath) Social History Tobacco Use Types Packs/Day Years [...] Sign Reading Time Taken Comments Blood Pressure 138/66 02/13/2019 11:05 AM EDT Pulse 82 02/13/2019 11:05 AM EDT Temperature - - Respiratory Rate - - Oxygen Saturation 99% 02/13/2019 11:05 AM EDT Inhaled Oxygen Concentration - - Weight 77.6 kg (171 lb) 02/13/2019 11:05 AM EDT Height 161.3 cm (5' 3.5) 02/13/2019 11:05 AM ED T Body Mass Index 29.82 02/13/2019 11:05 AM EDT documented in this encounter Progress Notes * Tory Chambers MD - 02/13/2019 11:20 AM EDT [facility] Lipid Clinic--Initial Consultation ID/PMH Yessenia is a 69 y.o. 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 She was in 2002 and has had a significant other for many years. Boyfriend (Deacon Peterson) lives in [place]. She has 5 children (2 biologic and 2 step) 3 biologic and 8 step grandchildren. She enjoys travel, walking, kayaking, reading, and gardening friends and family Present Illness Yessenia Luong is seen at the request of Juan Smith MD for evaluation and management of dyslipidemia, specifically a diagnosis of familial hypercholesterolemia and the inability to tolerate statinsshe has been treated with both rosuvastatin and atorvastatin at multiple different doses. While on s tatins she experiences severe proximal muscle pain and weakness which improves when she discontinues the statin only to recur with rechallenge. In November Dr. Smith encouraged her to have a trial of atorvastatin 10 mg daily but she again experienced intolerable side effect. Unfortunately, she is also been intolerant of the PCSK9 inhibitors which were fine for about 6 months then she sudddenly developed total body muscle spasms. This occurred with both evolocumab and alirocumab. She is here to discuss other lipid lowering options. She does not recall being on ezetimibe although Dr. Beard's note indicates that she might have been on it. She does not recall having been on intermittent dosing of st atins such as 5 mg of rosuvastatin twice a week. She is also complaining of feeling very poorly of late. She notes shortness of breath and chest discomfort with exertion. The chest discomfort does not radiate anywhere but is concerning to her giventhe fact that her sister recently had heart disease diagnosed in 2 stents deployed. She is also wondering whether or not she should be on Vascepa. She has a niece that works for [employer] and told her about the REDUCE IT trial. Lab Results Component Value Date CHLPL 324 02/13/2019 HDL 68 02/13/2019 LDLCHOL 219 02/13/2019 TRIG 183 02/13/2019 Evaluation for secondary causes Labs studies have included normal liver, thyroid, and glucose studies. She takes no drugs associated with secondary dyslipidemia. Dietary habits Breakfast: occ skips or oatmeal / granola with blueberries and almond milk, eggs and chicken sausage coffee almond milk Lunch: salad Estonian dressing, Oat bread sandwich - cheese and turkey, water Dinner: salad, chicken, pasta, rice and beans Snacks: rare Frequency of dining out: 3-4 times a week Alcohol intake: white wine 2 glasses / day occ tequila Exercise habits No regular exercise routine but does swim/walk up to 3 days a week Review of Systems: Constitutional: negative for fever, weight loss, weight gain HEENT: Negative for visual problems, sore throat, and sinus issues Cardiac: positive for chest pressure with exertion, positive for SOB on exertion or at rest, no orthopnea, PND, edema, no palpitations Respiratory: No cough, wheezing, hemoptysis Gastrointestinal: No abdominal pain, nausea, vomiting, occ diarrhea, Genitourinary: No nocturia, or dysuria Musculoskeletal: positive for muscle or joint pain back / doing PT Skin: No suspicious lesions, Rashes, no itching Neurological: occ headaches, no sensory or motor deficits, positive for dizziness today Endocrine: Denies polyuria, polydipsia, heat or cold intolerance Hematologic: No abnormal bleeding, bruising, lymphadenopathy Medications Current Outpatient Medications Medication Sig Dispense Refill ??? EPINEPHrine 0.3 mg/0.3 mL Auto-Injector as [...] azelastine (ASTELIN) 137 mcg (0.1 %) Aerosol, [place] 0 ??? PROVENTIL HFA 90 mcg/actuation HFA [...] Once daily ??? Mometasone (NASONEX) 50 mcg/Actuation [place] 2 [place](s) each nostril, Nasal, Twice daily No current facility-administered medications for this visit. Allergies Bee pollen; Morphine; Sulfa (sulfonamide antibiotics); and Voltaren [diclofenac sodium] Physical Exam General: 69 year old woman with a BMI of 29.82 VS: BP 151/66 Pulse 82 Ht 161.3 cm (5' 3.5) Wt 77.6 kg (171 lb) SpO2 99% BMI 29.82 kg/m?? Skin: Warm and dry. No eruptive xanthomas. HEENT: Anicteric sclera. No xanthelasma. Lungs: Clear Heart: S1 S2, no murmurs gallops or rubs, regular rate and rhythm Abd: Soft and nontender. Ext: She has tendon xanthomas. Her Achilles tendons are modestly thickened. Neuro: No focal motor deficits. Psych: Appropriate affect. Assessment Yessenia's lipids are consistent with a diagnosis of familial hypercholesterolemia. She has had great deal of difficulty with high and low dose statins taken on a daily basis. Although she may have beenon ezetimibe in the past she is willing to give this a try in conjunction with twice weekly rosuvastatin 5 mg. We had a long discussion about dietary changes (elimination of egg yolks, avoidance of ch eese, avoidance of red meat and calorie restriction) which may serve to improve her lipids as well. She has had a very rare side effect from the PCSK9 inhibitors which caused her to have diffuse muscle spasms. If her LDL is unable to be controlled with the combination of dietary changes, ezetimibe,and rosuvastatin we will want to consider the possibility of lipid apheresis. I have reviewed lipidapheresis with her and explained that it is offered here at [facility] but that it is quite a commitment. This procedure removes LDL cholesterol from the bloodstream on a biweekly basis and generally requires either an AV fistula or a port to be surgically placed. Yessenia would like to try lifestyle, ezetimibe, and rosuvastatin twice weekly before considering lipid apheresis. In terms of her current complaints of chest pain and shortness of breath I have suggested that we get a stress test and this has been ordered here. She will have this on March 12. I will contact her with the results. Action ?? Explained my impression and answered all questions Follow up 04/17 TORY CHAMBERS MD 02/13/2019 This visit was 60 minutes in length of which 40 minutes were spent in counseling CC: Juan Smith MD documented in this encounter Plan of Treatment Upcoming Encounters Date Type Department Care Team (Late st Contact Info) Description 03/13/2024 9:45 AM EDT Office Visit Dermatology at [place] [address] [place] [address] Emiliano Salinas MD [address], BAKARI [place] [address] documented as of this encounter Results * CRP, cardiac risk (HS CRP) (04/17/2019 9:21 AM EST) Pathologist [facility] C-Reactive Protein High Sensitivity 1.6 mg/L [facility] Comment: For cardiac risk assessment, two values (fasting or nonfasting sample acceptable) taken at least 2 weeks apart, should be averaged to provide a more reliable estimate of marker level. This laboratory will be using the recommendations from the AHA/CDC Scientific Statement for interpretations of future risks of cardiovascular events: ?<1.0 mg/L: low risk ?1.0 to 3.0 mg/L: moderate risk ?>3.0 mg/L: high risk ?>10.0 mg/L: Acute Inflammation Note: CRP values >10 mg/L indicate an acute inflammatory condition or infection. The >10 mg/L value should not be used for cardiac risk assessment and a repeat specimen should be collected at least two weeks after resolution of the acute inflammatory condition. References: 1. Sudeep DIOR et. al. ??AHA/CDC Scientific Statement: Markers of Inflammation and Cardiovascular Disease. ??Circulation 2003; 107:499-511 2. Caleb PM. ??Clinical applications of C-reactive protein for cardiovascular disease detection and prevention. ??Circulation 2003; 107:363-369 CRP Cardiac Risk Moderate Risk [facility] Blood specimen (specimen) 04/17/2019 9:21 AM EST 04/17/2019 9:40 AM EST Narrative Resulting Agency Comment Spec In Lab Tory Chambers MD CHEMISTRY ORDERABLES [facility] [place] [address] * Lipid Panel (Reflex Direct LDL) (04/17/2019 9:21 AM EST) Pathologist [facility] Cholesterol, Total 252 mg/dL [facility] Comment: Lower Risk: <200 mg/dL Average Risk: 200-239 mg/dL Higher Risk: >bk=357 mg/dL Triglyceride 157 mg/dL [facility] Comment: Average Risk/Lower Risk: <150 mg/dL Borderline High Risk: 150-199 mg/dL High Risk: 200-499 mg/dL Very High Risk: >hj=074 mg/dL HDL Cholesterol 74 mg/dL [facility] Comment: Males: ?? Higher Risk: <40 mg/dL Females: ?? HIgher Risk: <50 mg/dL LDL Cholesterol 147 mg/dL [facility] Comment: Lowest Risk: <100 mg/dL Lower Risk: 100-129 mg/dL Borderline High Risk: 130-159 mg/dL High Risk: 160-189 mg/dL Very High Risk: >ve=250 mg/dL Cholesterol/HDL Ratio 3.4 ratio [facility] Lipid Interpretation See Note [facility] Comment: Lipid management should be guided by a patient? s ASCVD risk, goals and preferences. ACC/AHA Guidelines recommend high intensity statin if clinical ASCVD or LDL greater than or equal to 190 mg/dL. http://[email or web address]/VIS-GGR-Mjdrwokqw Adults aged 40-75 with LDL 70-189 mg/dL should have their 10 year ASCVD risk estimated with the ACC/AHA ASCVD risk acquisition cost estimator http://tools.acc.org/MUTDG-Jtbh-Ymbxlvies/ Statin should be discussed if risk greater [...] critical component of ASCVD risk reduction. Blood specimen (specimen) 04/17/2019 9:21 AM EST 04/17/2019 9:40 AM EST Narrative Resulting Agency Comment Spec In Lab Tory Chambers MD CHEMISTRY ORDERABLES [facility] [place] [address] * NM Pharmacologic Stress CT Component (03/12/2019 11:18 AM EDT) Anatomical Region Laterality Modality Nuclear Medicine Impressions 03/12/2019 4:26 PM EDT No ischemia or scar. ??Left ventricular function is normal. Preliminary report signed by: Liam Cuevas at 03/12/2019 2:52 PM I have personally reviewed the image(s) and the residents interpretation and agree with the findings, Noah Arcos at 03/12/2019 4:26 PM Thank you for letting us participate in the care of this patient. For questions regarding this report, please contact the number below. ? Narrative 03/12/2019 4:26 PM EDT EXAMINATION: NM PHARMACOLOGIC STRESS MYOCARDIAL PERFUSION, NM PHARMACOLOGIC STRESS CT COMPONENT CLINICAL HISTORY: patient with CP and SOB and multiple CAD RF TECHNIQUE: During rest, 8.5 mCi of technetium-99m sestamibi was administered intravenously. Approximately 20 minutes later, SPECT images of the heart were obtained with reconstruction in the short, vertical long and horizontal long axis. The patient then received regadenoson intravenously at a dose of 0.4 mg. 20 seconds later, 25.4 mCi of technetium-99m sestamibi was administered intravenously. Images of the heart were then again obtained with SPECT reconstruction. A low-dose CT scan was acquired for the purpose of attenuation correction COMPARISON: None FINDINGS: No fixed or reversible perfusion defects are present. Functional analysis: Myocardial function: There is normal wall thickening and wall motion. Left ventricular ejection fraction: 73 % (normal greater than than 50%). INCIDENTAL CT FINDINGS: Coronary and aortic calcifications. Procedure Note Noah Arcos MD - 03/12/2019 EXAMINATION: NM PHARMACOLOGIC STRESS MYOCARDIAL PERFUSION, NMPHARMACOLOGIC STRESS CT COMPONENT CLINICAL HISTORY: patient with CP and SOB and multiple CAD RF TECHNIQUE: During rest, 8.5 mCi of technetium-99m sestamibi wasadministered intravenously. Approximately 20 minutes later, SPECT images of the heartwere obtained with reconstruction in the short, vertical long and horizontallong axis. The patient then received regadenoson intravenously at a dose of 0.4 mg.20 seconds later, 25.4 mCi of technetium-99m sestamibi was administered intravenously. Images of the heart were then again obtained with SPECT reconstruction. A low-dose CT scan was acquired for the purpose of attenuationcorrection COMPARISON: None FINDINGS: No fixed or reversible perfusion defects are present. Functional analysis: Myocardial function: There is normal wall thickening and wall motion. Left ventricular ejection fraction: 73 % (normal greater than than 50%). INCIDENTAL CT FINDINGS: Coronary and aortic calcifications. IMPRESSION No ischemia or scar. Left ventricular function is normal. Preliminary report signed by: Lima Cuevas at 03/12/2019 2:52 PM I have personally reviewed the image(s) and the residents interpretationand agree with the findings, Noah Arcos at 03/12/2019 4:26 PM Thank you for letting us participate in the care of this patient. Forquestions regarding this report, please contact the number below. Tory Chambers MD IMG NM ORDERABLES * Nuclear Pharmacologic Stress Cardiology (03/12/2019 10:46 AM EDT) Anatomical Region Laterality Modality Other Tory Chambers MD CARDIAC SERVICES ORD ERABLES * NM Pharmacologic Stress Myocardial Perfusion (03/12/2019 10:40 AM EDT) Anatomical Region Laterality Modality Nuclear Medicine Impressions 03/12/2019 4:26 PM EDT No ischemia or scar. ??Left ventricular function is normal. Preliminary report signed by: Liam Cuevas at 03/12/2019 2:52 PM I have personally reviewed the image(s) and the residents interpretation and agree with the findings, Noah Arcos at 03/12/2019 4:26 PM Thank you for letting us participate in the care of this patient. For questions regarding this report, please contact the number below. ? Narrative 03/12/2019 4:26 PM EDT EXAMINATION: NM PHARMACOLOGIC STRESS MYOCARDIAL PERFUSION, NM PHARMACOLOGIC STRESS CT COMPONENT CLINICAL HISTORY: patient with CP and SOB and multiple CAD RF TECHNIQUE: During rest, 8.5 mCi of technetium-99m sestamibi was administered intravenously. Approximately 20 minutes later, SPECT images of the heart were obtained with reconstruction in the short, vertical long and horizontal long axis. The patient then received regadenoson intravenously at a dose of 0.4 mg. 20 seconds later, 25.4 mCi of technetium-99m sestamibi was administered intravenously. Images of the heart were then again obtained with SPECT reconstruction. A low-dose CT scan was acquired for the purpose of attenuation correction COMPARISON: None FINDINGS: No fixed or reversible perfusion defects are present. Functional analysis: Myocardial function: There is normal wall thickening and wall motion. Left ventricular ejection fraction: 73 % (normal greater than than 50%). INCIDENTAL CT FINDINGS: Coronary and aortic calcifications. Procedure Note Noah Arcos MD - 03/12/2019 EXAMINATION: NM PHARMACOLOGIC STRESS MYOCARDIAL PERFUSION, NMPHARMACOLOGIC STRESS CT COMPONENT CLINICAL HISTORY: patient with CP and SOB and multiple CAD RF TECHNIQUE: During rest, 8.5 mCi of technetium-99m sestamibi wasadministered intravenously. Approximately 20 minutes later, SPECT images of the heartwere obtained with reconstruction in the short, vertical long and horizontallong axis. The patient then received regadenoson intravenously at a dose of 0.4 mg.20 seconds later, 25.4 mCi of technetium-99m sestamibi was administered intravenously. Images of the heart were then again obtained with SPECT reconstruction. A low-dose CT scan was acquired for the purpose of attenuationcorrection COMPARISON: None FINDINGS: No fixed or reversible perfusion defects are present. Functional analysis: Myocardial function: There is normal wall thickening and wall motion. Left ventricular ejection fraction: 73 % (normal greater than than 50%). INCIDENTAL CT FINDINGS: Coronary and aortic calcifications. IMPRESSION No ischemia or scar. Left ventricular function is normal. Preliminary report signed by: Liam Cuevas at 03/12/2019 2:52 PM I have personally reviewed the image(s) and the residents interpretationand agree with the findings, Noah Arcos at 03/12/2019 4:26 PM Thank you for letting us participate in the care of this patient. Forquestions regarding this report, please contact the number below. Tory Chambers MD [facility] NM ORDERABLES * TSH (02/13/2019 9:49 AM EDT) Thyroid Stimulating Hormone 2.34 0.27 - 4.20 mcIU/mL [facility] Blood specimen (specimen) 02/13/2019 9:49 AM EDT 02/13/2019 9:59 AM EDT Narrative Resulting Agency Comment Spec In Lab Tory Chambers MD CHEMISTRY ORDERABLES [facility] [place] [address] * (ABNORMAL) Comprehensive metabolic panel (non-fasting) (02/13/2019 9:49 AM EDT) Glucose 108 65 - 199 mg/dL [facility] Comment:Diabetes: >=200 mg/d L plus symptoms Blood Urea Nitrogen 19(H) 8 - 18 mg/dL [facility] Creatinine 0.79 0.70 - 1.20 mg/dL [facility] Sodium 142 135 - 145 mmol/L [facility] Potassium 3.6 3.5 - 5.0 mmol/L [facility] Comment: Please note: ??Patients with WBC >100,000 may have falsely elevated Potassium levels. ??For accurate Potassium quantification in these patients send serum separator tube (gold top) for subsequent determinations. ??Contact the Clinical Chemistry Laboratory if there are any questions. Chloride 101 98 - 107 mmol/L [facility] Carbon Dioxide 28 22 - 31 mmol/L [facility] Anion Gap 13 5 - 15 mmol/L [facility] Calcium 9.8 8.5 - 10.5 mg/dL [facility] Protein, Total 7.5 6.1 - 8.0 gm/dL [facility] Albumin 4.8 3.2 - 5.2 gm/dL [facility] Aspartate Aminotransferase 22 0 - 30 unit/L [facility] Alanine Aminotransferase 24 0 - 30 unit/L [facility] Alkaline Phosphatase 64 35 - 105 unit/L [facility] Bilirubin, Total 0.4 0.2 - 1.3 mg/dL [facility] Est Glomerular Filtration Rate 76 >=60 mL/min/1. 73 m?? [facility] Comment: The eGFR was calculated using the CKD-EPI equation. As with all creatinine based estimates of kidney function, eGFR values calculated with the CKD-EPI equation are not accurate in patients with acute kidney failure, extremes of body mass or the acutely ill. [email or web address] CITYnkf eGFR 88 >=60 mL/min/1. 73 m?? [facility] Comment: The eGFR was calculated using the CKD-EPI equation. As with all creatinine based estimates of kidney function, eGFR values calculated with the CKD-EPI equation are not accurate in patients with acute kidney failure, extremes of body mass or the acutely ill. [email or web address] CITYnkf Blood specimen (specimen) 02/13/2019 9:49 AM EDT 02/13/2019 9:59 AM EDT Narrative Resulting Agency Comment Spec In Lab Tory Chambers MD CHEMISTRY ORDERABLES Performing Organization Address [facility]/ZIP Co de Phone Number [facility] [place] [address] * Lipoprotein A (02/13/2019 9:49 AM EDT) Lipoprotein (a) 6 <=30 mg/dL [facility] Comment: Test Performed by: [place] [address] Carpet Finishing Supervisor: Kyle Michel M.D. Ph.D.; CLIA# [id number] Blood specimen (specimen) 02/13/2019 9:49 AM EDT 02/13/2019 3:06 PM EDT Narrative Resulting Agency Comment Spec In Lab Tory Chambers MD LAB SEND OUT ORDERAB LES Performing Organization Address City/[facility]/ZIP Co de Phone Number [facility] [place] [address] * Lipid Panel (02/13/2019 9:49 AM EDT) Cholesterol, Total 324 mg/dL [facility] Comment: Lower Risk: <200 mg/dL Average Risk: 200-239 mg/dL Higher Risk: >kl=011 mg/dL Triglyceride 183 mg/dL [facility] Comment: Average Risk/Lower Risk: <150 mg/dL Borderline High Risk: 150-199 mg/dL High Risk: 200-499 mg/dL Very High Risk: >uj=385 mg/dL HDL Cholesterol 68 mg/dL [facility] Comment: Males: ?? Higher Risk: <40 mg/dL Females: ?? HIgher Risk: <50 mg/dL LDL Cholesterol 219 mg/dL [facility] Comment: Lowest Risk: <100 mg/dL Lower Risk: 100-129 mg/dL Borderline High Risk: 130-159 mg/dL High Risk: 160-189 mg/dL Very High Risk: >uu=989 mg/dL Cholesterol/HDL Ratio 4.8 ratio [facility] Lipid Interpretation See Note [facility] Comment: Lipid management should be guided by a patient? s ASCVD risk, goals and preferences. ACC/AHA Guidelines recommend high intensity statin if clinical ASCVD or LDL greater than or equal to 190 mg/dL. [email or web address]-PYX-[email or web address] Adults aged 40-75 with LDL 70-189 mg/dL should have their 10 year ASCVD risk estimated with the ACC/AHA ASCVD risk acquisition cost estimator http://tools.acc.org/JZYEI-Ooqd-Ycnfcbhli/ Statin should be discussed if risk greater [...] critical component of ASCVD risk reduction. Blood specimen (specimen) 02/13/2019 9:49 AM EDT 02/13/2019 9:59 AM EDT Narrative Resulting Agency Comment Spec In Lab Tory Chambers MD CHEMISTRY ORDERABLES Performing Organization Address City/State/[facility] Co de Phone Number [facility] [place] [address] documented in this encounter Visit Diagnoses Diagnosis Familial hypercholesterolemia Pure hypercholesterolemia Chest pain, unspecified type SOB (shortness of breath) Shortness of breath Chest pain, unspecified type SOB (shortness of breath) Shortness of breath Chest pain, unspecified type SOB (shortness of breath) Shortness of breath documented in this encounter Care Teams Cold Reduction Roller Relationship Specialty Start Date End Date Juan Smith MD [address] [place] [address] PCP - General Family Medicine 05/10/16 09/02/21 documented as of this encounter
--- OUTSIDE RECORDS SUMMARY | 2024-02-15 13:17 | XMS_ITS | Encounter Summary ---
Author Organization [facility] [place] [address] Care Team Providers Care Disc Jockey Name Role Phone Chantell Sharma APRN Primary Care Provider [phone]- [phone] Reason for Visit * Reason Comments Follow Up Surgery s/p bbr and abdomino plasty/liposuction dos 06/14/14, drain removal Encounter Details Date Type Department Care Team (Latest Contact Info) Description 06/23/2015 9:00 AM EST Clinical Support [place] [address] Mery Dimas [facility] [place] [address] Surgery follow-up Social History Tobacco Use Types Packs/Day Years [...] this encounter Patient Instructions * Patient Instructions* Mery Dimas APRN - 06/23/2015 9:28 AM EST Wash with a hypoallergenic soap and water (for example: Dove soap for sensitive skin) Apply triamcinolone twice a day as ordered. You may use Sarna lotion (over the counter) as needed for symptom relief. Refrigerate cream for added comfort. You may take Benadryl as directed to relieve itching. Note that this medication may cause drowsiness. Follow up next week with Dr. Marvin. You have been prescribed an antibiotic to treat your infection. While antibiotics effectively kill the bad bacteria causing your infection, they can also cause problems elsewhere by disturbing the good bacteria in other parts of your body. We recommend you take an over the counter probiotic containing Lactobacillus and Bifidobacterium (at least 5-10 Billion CFUs) to help lower your risk for side effects often caused by antibiotics. Plan: Take your probiotic 2 hours before or after your scheduled antibiotic Take your probiotic twice a day while on your antibiotic and for 2 weeks after. We have removed your drain(s) and applied a dressing. You may remove the dressing in 24 hours and shower. After showering, you may cover the drain site(s) with a bandaid. The drain site is typically closed in approximately three days. Please call the clinic with any questions or concerns @ [phone] Saturday through Saturday from 8. On weekends, nights, or holidays, call the Main Hospital number @ [phone] and ask for the Plastic Surgeon communication coordinator. Signs of Infection : A temperature over 100.4 F or 38 C. Redness at the incision line that is beginning to spread away from the incision after the first 48 hours. Yellow pus-like or foul smelling drainage larger than a dime size from the incision or drain sites. Increased pain / discomfort that is not relieved by your pain medicine. For any of these symptoms please call our nurse's line at [phone] M - F 8 documented in this encounter Progress Notes * Mery Dimas APRN - 06/23/2015 9:10 AM EST Images from the original note were not included. Plastic Surgery Post Op Note Reason for visit: F/U status post procedure Date of surgery: 06/14/15 Procedure(s): BBR (QUIROZ) with axillary liposuction and abdominoplasty with rectus plication Complications: None reported Pain: 10/17 HPI: Pt reports that she continues to take narcotic pain medication, but is cutting back. She denies any itching. Her drain output is decreasing, left side remains above 50 ml per day. Examination: Patient is alert, conversant, comfortable, ambulating Incisions well approximated. Erythema along incision lines Umbilicus intact. NACs well perfused. No signs of fluid collection. Drain remains in place on left side. Right removed today. Impression: Yessenia Luong is a 65 y.o. female who was seen today for follow-up after the above procedure. Please see the operative note for details. Her erythema is consistent with a glue or tape allergy vs. Infection though she does not report pruritis. We discussed antibiotics and she will begin a five day course. Instructed on incision care. We discussed activity limitations, I advised her to continue to restrict her activities until 6 weeks post-op. Plan: 1. Follow up next week. 2. Ok to shower tomorrow 3. Keep activities restricted for 6 weeks 4. Continue to wear compression garment until 6 weeks post-op 5. Sun avoidance 6. Keflex and triamcinolone Rx given today Post-Op Rash Skin Glue Used: yes and steri-strips Patient aware of previous exposure to skin glue: no Onset of Symptoms: unknown Pruritus: no Erythema: yes Plan: Glue Removed Photos taken with ipad Triamcinolone Ointment BID x 5 days Sarna OTC PRN for relief of itching Benadryl PRN F/U 1 week ICoretta, am acting as scribe for Mery Dimas. All work documented was performed by Mery Dimas. ???I performed the above scribed service and agree with the accuracy of the note?? MERY DIMAS APRN documented in this encounter Plan of Treatment Upcoming Encounters Date Type Department Care Team (Late st Contact Info) Description 03/13/2024 9:45 AM EDT Office Visit Dermatology at [address] [place] [address] Emiliano Salinas MD [address], [place] [address] documented as of this encounter Visit Diagnoses Diagnosis Surgery follow-up Follow-up examination, following unspecified surgery documented in this encounter Care Teams Disc Jockey Relationship Specialty Start Date End Date Chantell Sharma APRN PCP - General 07/09/13 05/09/16 documented as of this encounter
--- OUTSIDE RECORDS SUMMARY | 2024-02-15 13:17 | XMS_ITS | Encounter Summary ---
Author Organization [facility] [place] [address] Care Team Providers Care Turning Machine Set Up Operator Name Role Phone Juan Smith MD Primary Care Provider Reason for Visit * Reason Comments Procedure Encounter Details Date Type Department Care Team (Late st Contact Info) Description 03/12/2019 3:30 PM EDT Office Visit Dermatology at [facility] [address] [place] [address] Vern Salmeron MD [facility] [address] [address] Encounter for cosmetic procedure Social History Tobacco [...] Notes * Vern Salmeron MD - 03/12/2019 3:30 PM EDT Yessenia Luong [id number] 03/12/2019 Provider: Raymundo Salmeron M.D. ([id number]) Chief Problem: 1. Rosacea & Telangiectasias 2. Follow up Laser treatment: V-beam treatment HISTORY & DISCUSSION: 69 y.o. year old female, here for follow up laser treatment and continuedtelangiectasia care. V-beam/pulsed dye laser is still most appropriate for the patient. No significant complications with previous treatments. RE-Discussed potential adverse events including pain or stinging, possible bruising (common), hyperpigmentation and hypopigmentation, edema, erosion or blister formation (uncommon). Patient clearly understood these potential risks. Also RE-discussed that multiple treatments will be required for optimum benefit. Total number of treatments depend on the baseline degree of telangiectasia, patient's response, expectations and desires. Most patients require 3 to 5 laser treatments. Patient clearly understood this. Also Re-discussed nature of cosmetic, insurances will not cover these procedures, and we will not submit it to the company. The patient will have to pay for the procedure, at the time of the procedure/visit. EXAMINATION: Focal examination of the face. Rosacea changes and increased telangiectasias scattered over the central face. Nose, malar cheeks and chin involved. DIAGNOSIS/ASSESSMENT: 1. Rosacea & Telangiectasias 2. V-Beam/Pulsed Dye Laser therapy PLAN: LASER PROCEDURE 1. RE-discussed risk, expectations etc as above and confirmed patient's understanding. Initial written consent signed and recorded in the medical record. 2. Eye protection/eye shield application, and post-laser care, sun avoidance, mild [place] post laser discussed. Patient knows to call if there are any questions. V-Beam Laser Settings: - V-Beam (595 nm): 9 J/m2 @ 10 msec Spot Size:10 Pulses: 155 V-Beam Laser Procedure: Applied V-beam guided head at skin surface, cryospray pre-laser, overlapping areas slightly, pulseduntil area adequately covered. No immediate post-laser complications. Follow-up as discussed. Call clinic with questions post-laser Follow up: PRN Cosmetic Cost today: $350.00 paid upon exiting clinic today I am documenting this encounter acting as the scribe for and in the presence of Dr. Salmeron,VERITO PALOMO LPN I performed the above scribed service and agree with the accuracy of the documentation in this encounter, MD Raymundo Aldridge M.D. Section of Dermatology documented in this encounter Plan of Treatment Upcoming Encounters Date Type Department Care Team (Late st Contact Info) Description 03/13/2024 9:45 AM EDT Office Visit Dermatology at [place] [address] [facility] [place] [address] Emiliano Salinas MD [address], [place] [address] documented as of this encounter Visit Diagnoses Diagnosis Encounter for cosmetic procedure documented in this encounter Care Teams Turning Machine Set Up Operator Relationship Specialty Start Date End Date Juan Smith MD [address] [place] [address] PCP - General Family Medicine 05/10/16 09/02/21 documented as of this encounter
--- OUTSIDE RECORDS SUMMARY | 2024-02-15 13:17 | XMS_ITS | Encounter Summary ---
Author Organization [facility] Address [facility] [place] [address] Care Team Providers Care Forming Machine Tender Name Role Phone Juan Smith MD Primary Care Provider Reason for Visit * Reason Comments Laser Treatment Encounter Details Date Type Department Care Team (Late st Contact Info) Description 05/10/2016 1:30 PM EST Office Visit Dermatology at [facility] [address] [place] [address] Vern Salmeron MD [facility] [address] [place] [address] Androgenic alopecia; Telangiectasia; Solar lentigo; Seborrheic keratosis Social History Tobacco Use Types Packs/Day Years [...] this encounter Patient Instructions * Patient Instructions* Bertram Young RN - 05/10/2016 1:30 PM EST .Vascular Beam (vbeam), IPL (Intense Pulse Light) ? Potential adverse events including pain or stinging, possible bruising (common), hyperpigmentation and hypopigmentation, swelling, erosion or blister formation (uncommon). ?? Multiple treatments will be required for optimum benefit. Total number of treatments depend on the patient's response, expectations and desires. Most patients require 3 to 5 laser treatments. ?? Laser cosmetic procedures will not be covered by insurance. We will not submit it to the insurance company. The payment is expected at the time of the procedure/visit. Pretreatment: 1. Avoid being casey or using self kristi 2. On day of procedure do not use hairspray near area of treatment and do not apply Makeup on treatment area. 3. Do not apply Retin A products on skin to be treated ~7 days prior to treatment Post Treatment: 1. Important to stay out of direct sunlight and apply sunscreen following laser treatment 2. Ok to apply cool compress for comfort, DO NOT apply ice directly to the skin 3. Ok to continue daily skin hygiene and regime (ok to apply moisturizers and makeup to treated area, ect.) 4. Do not apply Retin A products for 2-3 days following treatment, as they will be irritating following laser procedure 5. Tylenol may be taken for discomfort For further questions and concerns contact: [phone] Nurse message line [phone] Pita (Dr. Salmeron's Appointment Brake Shoe Rebuilder) In any case of emergency for weekends and off hours please contact [facility] main number and ask for it infrastructure architect education managers at [phone] documented in this encounter Progress Notes * Vern Salmeron MD - 05/10/2016 1:30 PM EST Images from the original note were not included. Provider: Raymundo Salmeron M.D. ([id number]) Chief Problem: 1. Rosacea & Telangiectasias 2. Here for pulsed dye laser treatment 3. Lentigines, here for Intense Pullsed dye aser ( IPL ) HISTORY & DISCUSSION: 66 y.o. year old female, here for pulsed dye laser treatment of rosacea and telangiectasias and Intense Pulsed Light treatment ( IPL ) of lentigines . She has had these treatments in the past , Well tolerated. Yessenia also asks about treatment for thinning hair. She was recently evaluated by Debby Juares MD 02/06/16. At that time she chose to treat her scalp with Rogaine only. After discussion today she wouldlike to add systemic therapy with Finasteride , script noted as below. Reviewed Laser potential adverse events including pain or stinging, possible bruising (common), hyperpigmentation and hypopigmentation, edema, erosion or blister formation (uncommon). Patient clearlyunderstood these potential risks. Consent Multiple treatments will be required for optimum benefit.Total number of treatments depend on the baseline degree of telangiectasia, patient's response, expectations and desires. Most patients require 3 to 5 laser treatments. Patient clearly understood this. The patient knows that the V-Beam Laser, for this purpose is strictly a cosmetic procedure, insurances will not cover these procedures, and we will not submit it to the company. The patient will haveto pay for the procedure, at the time of the procedure/visit. EXAMINATION: Focal examination of the face. Rosacea changes and increased telangiectasias scattered over the central face. Nose, malar cheeks and chin involved. Appropriate for laser therapy. - Moderate amount of vascular changes Non-inflamed seborrheic keratosis ,one on each lateral face Scattered pale lentigines lateral face , few DIAGNOSIS/ASSESSMENT: 1. Rosacea & Telangiectasias Amenable to V-Beam/Pulsed Dye Laser therapy 3. Lentigines Amenable to IPL therapy PLAN: LASER PROCEDURE 1. Patient decided to have the laser procedures performed today, after the review and brief discussion above. Verbal consent, expectations, and potential adverse events discussed. Written consent signed and recorded in the medical record. 2. Use of eye protection/eye storm performed, and post-laser care, sun avoidance, mild [place] laser discussed. Patient knows to call if there are any questions. V-Beam Laser Settings: Central face including chin nose and malare cheeks - V-Beam (595 nm): 9 J/m2 @ 10 msec Spot Size: 10mm Pulses: 160 V-Beam Laser Procedure: Applied V-beam guided head at skin surface, cryospray pre-laser, overlapping areas slightly, pulseduntil area adequately covered. IPL laser settings for reduction of lentigines : Lateral face, evans-oral area and dorsal hands treated - Green head : Spot size 10x 15 mm, 500-670nm, 870-1400nm 32j/cm2 @ 20 msec Pulses: 98 No immediate post-laser complications. Follow-up as discussed. Call clinic with questions post-laser 3. LN2 x 2 to non-inflamed seborrheic keratosis #2 Prescriptions: .finasteride 1mg PO QD, Disp #30 RF X 3 Sent to [facility] in [facility]. Follow up: Skin check 3-6 months Cosmetic cost today: $350 processed at discharge from clinic I am documenting this encounter acting as the scribe for and in the presence of BERTRAM Gamboa, RN I performed the above scribed service and agree with the accuracy of the documentation in this encounter, MD Raymundo Aldridge M.D. Section of Dermatology documented in this encounter Plan of Treatment Upcoming Encounters Date Type Department Care Team (Late st Contact Info) Description 03/13/2024 9:45 AM EDT Office Visit Dermatology at [address] [address] Emiliano Salinas MD [address] [facility], [place] [address] documented as of this encounter Visit Diagnoses Diagnosis Androgenic alopecia Other alopecia Telangiectasia Other and unspecified capillary diseases Solar lentigo Other dyschromia Seborrheic keratosis Other seborrheic keratosis documented in this encounter Care Teams Forming Machine Tender Relationship Specialty Start Date End Date Juan Smith MD [address] [place] [address] PCP - General Family Medicine 05/10/16 09/02/21 documented as of this encounter
--- OUTSIDE RECORDS SUMMARY | 2024-02-15 13:17 | XMS_ITS | Encounter Summary ---
Author Organization [facility] [place] [address] Care Team Providers Care Travel Freight And Passenger Agent Name Role Phone Sharma Chantellrebecca Lester APRN Primary Care Provider +1- [phone] Reason for Visit * Reason Comments Follow Up Surgery BBR and abdominoplas ty Encounter Details Date Type Department Care Team (Late st Contact Info) Description 06/28/2015 1:00 PM EST [place] [address] Carlee Marvin MD [facility] [place] [address] Status post bilateral breast reduction Social History Tobacco Use Types Packs/Day Years [...] * Patient Instructions* Carlee Marvin MD - 06/28/2015 1:59 PM EST Plan: 1. Follow up: mid-July 2. Ibuprofen and/or Tylenol for discomfort 3. Restrict activities for 6 weeks post-op. 4. Continue to wear compression garments until 6 weeks post-op - no under wire bra until you regainfull sensation underneath breasts. 5. May discontinue binder at night - once drain is removed may switch to Spanx. 6. Sun avoidance 7. Apply steri strips for 6 weeks post-op. 8. Return to clinic when drain output reaches <30cc for two consecutive days - may remove with PCP or return to [facility]. 9. While traveling make sure to walk frequently to prevent blood clots. 10. Scar massage to begin at 6 weeks post-op- instructions provided. -SCAR MASSAGE TECHNIQUE: to begin 4-6 weeks [...] Progress Notes * Carlee Marvin MD - 06/28/2015 1:03 PM EST Plastic Surgery Post Op Note Reason for visit: F/U status post procedure Date of surgery: 06/14/15 Procedure(s): Bilateral breast reduction (Fuentes) with axillary liposuction and abdominoplasty with rectus plication Complications: None reported Pain: 5/10 HPI: Pt reports she has been well. She recently was placed on steroid cream and antibiotics for possible infection vs allergic reaction to dermabond. She completed a course of antibiotics today. Otherwise she is healing well and very happy with her outcome. She will be traveling to [place] in August. Examination: Patient is alert, conversant, comfortable, ambulating Abdomen: Incisions well approximated, healing well. Left drain in place with serous fluid. Umbilicus intact. NACs well perfused. No signs of fluid collection. Good abdominal contour. Breasts: NAC sensate bilateral Good breast symmetry in volume and size. ICDI No collection, no erythema. Pathology: DIAGNOSIS A - Right breast, reduction mammoplasty: ?? Benign breast tissue. B - Left breast, reductin mammoplasty: ?? Benign breast tissue. The pannus weighed 2.155 Kg.?? Impression: Yessenia Luong is a 65 y.o. female who was seen today for follow-up after the above procedure. Please see the operative note for details. She is healing well to date. Left drain does notyet meet output for removal. I advised she may have her PCP pull drain if desired. We discussed sheshould expect nerve sensation to improve with time, final result at 12-18 months. We discussed activ ity restrictions and continued use of compressive binder and support bra. I recommended when she travels to ambulate frequently to prevent DVT. Plan: 1. Follow up: mid-July ta 6 weeks post op 2. Ibuprofen and/or Tylenol for discomfort 3. Restrict activities for 6 weeks post-op. 4. Continue to wear compression garments until 6 weeks post-op - no under wire bra until you regainfull sensation underneath breasts. 5. May discontinue binder at night - once drain is removed may switch to Spanx. 6. Sun avoidance 7. Apply steri strips for 6 weeks post-op. 8. Return to clinic when drain output reaches <30cc for two consecutive days - may remove with PCP or return to [facility]. 9. While traveling make sure to walk frequently to prevent blood clots. 10. Scar massage to begin at 6 weeks post-op- instructions provided. I, Maye Santana, am acting as scribe for Dr Marvin. All work documented was performed by Dr Marvin. ???I performed the above scribed service and agree with the accuracy of the note?? CARLEE MARVIN MD documented in this encounter Plan of Treatment Upcoming Encounters Date Type Department Care Team (Late st Contact Info) Description 03/13/2024 9:45 AM EDT Office Visit Dermatology at [place] [address] [place] [address] Emiliano Salinas MD [address] [facility], [place] [address] documented as of this encounter Visit Diagnoses Diagnosis Status post bilateral breast reduction Other postprocedural status documented in this encounter Care Teams Travel Freight And Passenger Agent Relationship Specialty Start Date End Date Chantell Sharma APRN PCP - General 07/09/13 05/09/16 documented as of this encounter
--- OUTSIDE RECORDS SUMMARY | 2024-02-15 13:17 | XMS_ITS | Encounter Summary ---
Author Organization [facility] Address [facility] [place] [address] Care Team Providers Care Demand Equipment Repairer Name Role Phone Juan Smith MD Primary Care Provider [phone] Reason for Visit * Reason Comments Follow-up Encounter Details Date Type Department Care Team (Late st Contact Info) Description 03/12/2019 3:00 PM EDT Office Visit Dermatology at [facility] [address] [place] [address] Vern Salmeron MD [facility] [address] [place] [address] Rosacea; Lentigines; Holt angiomas; Seborrheic keratoses; Seborrheic keratoses, inflamed; Hair thinning Social History Tobacco Use Types [...] Notes * Vern Salmeron MD - 03/12/2019 3:00 PM EDT Yessenia Luong 03/12/2019 [id number] Raymundo Salmeron MD ([id number]) Chief Problem: 1. Pigmented Lesion and Skin Cancer Examination 2. Rosacea and Telangiectasias History: 69 y.o. year old female. Established patient to me. Patient presents here today for a total body skin examination with history as listed above. Specific areas of concern today include a couple of scaly lesions on her right leg. Her rosacea is stable. She still reports hair loss and is unsure what to do for it. Discussed several options. Discussed finasteride again, she is post menopausal, no true side effects in women, may not be as effective in women. She'd like to try it. Give it 6 months. Medications: reviewed All: reviewed Review of Systems: Feels well, no fatigue, no weight loss, no other skin concerns Current Outpatient Medications on File Prior to Visit Medication Sig Dispense Refill ??? EPINEPHrine 0.3 mg/0.3 mL Auto-Injector as needed. 3 ??? TIROSINT 50 mcg Capsule Take 50 mcg by mouth daily. 1 ??? ezetimibe (ZETIA) 10 mg Tablet Take 1 tablet by mouth daily. 90 tablet 3 ??? rosuvastatin (CRESTOR) 5 mg Tablet Take one table twice a week 45 tablet 3 ??? icosapent ethyl (VASCEPA) 1 gram Capsule Take 2 capsules by mouth 2 times daily. 360 capsule 3 ??? traZODone (DESYREL) 50 mg Tablet Take 50 mg by mouth nightly. ??? estradiol (ESTRACE) 0.01 % (0.1 mg/gram) Cream APPLY 1 GRAM VAGINALLY TWICE A WEEK DIRECTED 0 ??? naproxen (NAPROSYN) 500 mg Tablet as needed. 0 ??? olopatadine (PATANOL) 0.1 % Drops instill 1 drop into affected eye twice a day 0 ??? azelastine (ASTELIN) 137 mcg (0.1 %) Aerosol, [place] 0 ??? PROVENTIL HFA 90 mcg/actuation HFA [...] Once daily ??? Mometasone (NASONEX) 50 mcg/Actuation [place] 2 [place](s) each nostril, Nasal, Twice daily No current facility-administered medications on file prior to visit. Examination: Patient was alert, well-appearing and in no noticeable distress. Patient asked to undress to their comfort level. Provider preference is to take everything off. If clothing is left on we will not look there. Patient chose to leave on underwear. A full body skin exam was performed. This includes examination of the skin of the face, ears, scalp, neck, chest, axillae, back, abdomen, left and right upper and lower extremities, hands, and feet. The genitalia were not examined. Specific findings: 1. Rosacea located on the face 2. Solar lentigines located on the trunk and extremities 3. Holt angiomas located on the trunk 4. Seborrheic keratoses located on the trunk and extremities 5. Inflamed seborrheic keratosis x 2 located on the right lower leg 6. Hair thinning located on the scalp, androgenetic (post menopausal) Assessment/Diagnosis: 1. Rosacea 2. Solar lentigines, patient reassured 3. Holt angiomas, patient reassured 4. Seborrheic keratoses, patient reassured 5. Inflamed seborrheic keratoses, treated with cryotherapy today 6. Hair thinning Procedure: 1. LN2 x 2 to Inflamed Seborrheic Keratosis x 2 Prescription: 1. Rx: Sulfacetamide 10% lotion - Apply topically to the face 1-2 times daily. 2. Rx: Finasteride 5mg - Take 1 tablet by mouth daily. Treatment/Plan: Discussion - Spent over half of this visit discussing pathophysiology and the diagnosis, and counselling this patient on treatment options, expectations and follow-up plan. - Specifically discussed: 1. Sun avoidance re-emphasized, sunscreen, hats, clothing as always. 2. Combined decision to start treating rosacea with Shala nightly. 3. Combined decision was made to treat Inflamed seborrheic keratosis x 2 with cryotherapy. 4. Combined decision to treat hair thinning with finasteride 1mg daily. Follow up: 6 months follow up hair loss, sooner if needed. I am documenting this encounter acting as the scribe for and in the presence of Dr. Salmeron, VERITO PALOMO LPN and Honey Martinez. I performed the above scribed service and agree with the accuracy of the documentation in this encounter, MD Raymundo Aldridge M.D. Section of Dermatology documented in this encounter Plan of Treatment Upcoming Encounters Date Type Department Care Team (Late st Contact Info) Description 03/13/2024 9:45 AM EDT Office Visit Dermatology at [place] [address] [place] [address] Emiliano Salinas MD [address], [place] [address] documented as of this encounter Visit Diagnoses Diagnosis Rosacea Lentigines Other dyschromia Holt angiomas Nevus, non-neoplastic Seborrheic keratoses Other seborrheic keratosis Seborrheic keratoses, inflamed Inflamed seborrheic keratosis Hair thinning Alopecia, unspecified documented in this encounter Care Teams Demand Equipment Repairer Relationship Specialty Start Date End Date Juan Smith MD [place] [address] [place] [address] PCP - General Family Medicine 05/10/16 09/02/21 documented as of this encounter
--- OUTSIDE RECORDS SUMMARY | 2024-02-15 13:17 | XMS_ITS | Encounter Summary ---
Author Organization [facility] [place] [address] Care Team Providers Care Tile Molder Hand Name Role Phone Juan Smith MD Primary Care Provider [phone] Reason for Referral * Diagnostic Test (Routine) - Closed Specialty Diagnoses / Procedures Referred By Contac t Referred To Contact Radiology Diagnoses Chest pain, unspecified type SOB (shortness of breath) Procedures NM Pharmacologic Stress Myocardial Perfusion Tory Montalvo MD [facility] [place] [address] [place] [address] Referral ID Status Reason Start Date Expiration Date V isits Requested Visits Authorized [id number] Closed Specialty Service Requested 03/05/2019 05/03/2019 1 1 Reason for Visit * Diagnostic Test (Routine) - Closed Specialty Diagnoses / Procedures Referred By Contac t Referred To Contact Radiology Diagnoses Chest pain, unspecified type SOB (shortness of breath) Procedures NM Pharmacologic Stress Myocardial Perfusion Tory Montalvo MD [facility] [place] [address] [place] [address] Referral ID Status Reason Start Date Expiration Date V isits Requested Visits Authorized [id number] Closed Specialty Service Requested 03/05/2019 05/03/2019 1 1 Encounter Details Date Type Department Care Team (Latest Contact Info) Description 03/12/2019 9:21 AM EDT - 03/12/2019 9:22 AM EDT Hospital Encounter [place] [address] Tory Montalvo MD Chest pain, unspecified type; [...] azelastine (ASTELIN) 137 mcg (0.1 %) Aerosol, [place] 0 11/06/2017 0 09/03/2022 ASCORBATE CALCIUM (VITAMIN C ORAL) Take by mouth. 09/03/2022 ERGOCALCIFEROL, VITAMIN D2, (VITAMIN D ORAL) Take by mouth. multivitamin (THERAGRAN) tablet Take 1 tablet by mouth daily. 09/03/2022 fexofenadine (EVANGELINA) 180 mg tablet 180 mg, PO, Once daily 08/28/2010 09/03/2022 Mometasone (NASONEX) 50 mcg/Actuation [place] 2 [place](s) each nostril, Nasal, Twice daily 08/28/2010 09/03/2022 documented as of this encounter Plan of Treatment Upcoming Encounters Date Type Department Care Team (Late st Contact Info) Description 03/13/2024 9:45 AM EDT Office Visit Dermatology at [place] [address] [facility] [place] [address] Emiliano Salinas MD [address] [facility], [place] [address] documented as of this encounter Procedures Procedure Name Priority Date/Time Associated Diagnosis Comments NM PHARMACOLOGIC STRESS AND REST MYOCARDIAL PERFUSION Routine 03/12/2019 10:40 AM EDT Chest pain, unspecified type SOB (shortness of breath) documented in this encounter Results * NM Pharmacologic Stress Myocardial Perfusion (03/12/2019 10:40 AM EDT) Anatomical Region Laterality Modality Nuclear Medicine Impressions 03/12/2019 4:26 PM EDT No ischemia or scar. ??Left ventricular function is normal. Preliminary report signed by: Laim Cuevas at 03/12/2019 2:52 PM I have [...] report, please contact the number below. Tory Montalvo MD IMG NM ORDERABLES documented in this encounter Visit Diagnoses Diagnosis Chest pain, unspecified type SOB (shortness of breath) Shortness of breath documented in this encounter Administered Medications Inactive Administered Medications - up to 3 most recent administrations Medication Order MAR Action Action Date Dose Rate Site technetium (Tc-99m) sestamibi injection 8.5 mCi 8.5 mCi, Intravenous, ONCE PRN, 1 dose, Starting on Maria L 03/12/19 at 0935, Until Maria L 03/12/19 at 0935, Per Protocol, IV: R-ACF, Routine Given 03/12/2019 9:35 AM EDT 8.5 mCi documented in this encounter Care Teams Tile Molder Hand Relationship Specialty Start Date End Date Juan Smith MD [address] [place] [address] PCP - General Family Medicine 05/10/16 09/02/21 documented as of this encounter
--- OUTSIDE RECORDS SUMMARY | 2024-02-15 13:17 | XMS_ITS | Encounter Summary ---
Author Organization [facility] Address [facility] [place] [address] Care Team Providers Care Primary Teacher Name Role Phone Juan Smith MD Primary Care Provider [phone] Encounter Details Date Type Department Care Team (Late st Contact Info) Description 12/30/2017 1:30 PM EDT Office Visit Weight and Wellness at [address] [address] Vanesa Cesar Hannah K, RD [facility] [place] [address] Adult BMI 30.0-30.9 kg/sq m Social History Tobacco Use Types Packs/Day Years [...] Time Taken Comments Blood Pressure 123/69 12/30/2017 1:00 PM EDT Pulse 64 12/30/2017 1:00 PM EDT Temperature - - Respiratory Rate - - Oxygen Saturation 97% 12/30/2017 1:00 PM EDT Inhaled Oxygen Concentration - - Weight 78.7 kg (173 lb 6.4 oz) 12/30/2017 1:00 P M EDT Height 161.3 cm (5' 3.5) 12/30/2017 1:00 PM EDT Body Mass Index 30.23 12/30/2017 1:00 PM EDT documented in this encounter Patient Instructions * Patient Instructions* Mary Cerna RD - 12/30/2017 1:30 PM EDT Nutrition Goals: 1. Measure out wine or liquor a few times to get a sense of portions (5 oz. Wine or 1.5 oz. Liquor). Choose your method of reducing: Every other occasion (2 drinks) OR each occasion 1 drink. 2. In a green party situation (or out to eat) think about one plate for the evening 3. For lunch and dinner, aim for 1/2 the plate veggies (you may choose to only have veggie appetizers) and keep the grains to 1/4 plate. 4. Continue to track all meals, snacks, and beverages. Aiming for: 40% of calories from carbohydrates, 25% from protein, 35% from fat (nuts, seeds, olive oil, fish, avocado). Goal for now for calories would be 1,400, understanding that a goal down the road might be 1,200 but you will probably see progress at 1,400. Thank you, Mary documented in this encounter Progress Notes * Vanesa Cesar - 12/30/2017 1:30 PM EDT Unable to ask pt questions as she was 40 minutes late for appointment. Conducted JERZY/fitness assessment. * Mary Cerna RD - 12/30/2017 1:30 PM EDT Nutrition Intervention for Weight Management Initial RD visit Assessment/Nutrition Diagnosis: Pt at increased nutritional risk related to excessive calorie intake and sub optimal physical activity resulting in overweight/obesity as evidenced by BMI and diet recall Food Trackers: Logging on lose it every day Weight Today: Vitals 12/30/2017 12/06/2017 Height ([place]oc[place]) 5' 3.504 5' 3.504 Height (Metric) 161.3 cm 161.3 cm Weight ([place]) 173 lbs 6 oz 174 lbs 14 oz Weight (Metric) 78.654 kg 79.334 kg BODY MASS INDEX 30.23 kg/m2 30.49 kg/m2 Weight Loss History: Has cut out alcohol for 4 months to see if this had an impact on her weight, did not see a difference. Appetite/Hunger: Not really feeling hungry throughout the day: As a rule, does not eat in between meals, however, now that we're in green party mode- thinks this might end around February, but plans to make changes before that. Typical Dietary Intake: B: toast, egg (fried), salami OR granola and almond milk L: Mushroom ravioli, 1 cup blueberries, trail mix (with m&ms) OR tuna salad (no bread- was out)iced D: chicken breast (1 lb), chicken wing, corn bread... Another night swordfish, asparagus, mushrooms, soft serve maple S: Gin & tonic, wine, sherbet This was an ~1800 calorie day Typical Beverages: [place] milk, unsweetened iced tea, wine, etc. Interview: Yessenia reports that she doesn't snack in between meals but eats too much at each meal. Going to [facility] for 3 weeks, discussed that it would not be necessary to track on this trip (does not want to) but it would be interesting to notice food appreciation and portion.s while she is there: Taking time before eating to appreciate food can help us eat smaller portions and still feel satisfied. Yessenia has been tracking daily and this has been eye opening about just how many calories she has been eating(some ~2,500-3,000, many ~1,300, and in between). This has not really changed her eating habits/choices, but identifies her higher calorie choices. Discussed a calorie goal today that matches her measured RMR (~1,400). The long term acute care registered nurse goal for [place] be closer to 1,200 calories, but based on recent tracking, sticking to 1,400 calories would be a reduction for her and would likely result in weight loss without imposing an unrealistic restriction that might derail progress. Discussed that this journey is different for each person depending on where they are starting; the goal is to figure out which foods fit into Yessenia's calorie budjet,how often do treat foods/drinks fit into her plan, and aim for balanced plates at each meal within calorie guidelines. Suggestions for reducing empty calorie choices discussed, goals below. Barriers to Change: green party mode Nutrition Goals: 1. Measure out wine or liquor a few times to get a sense of portions (5 oz. Wine or 1.5 oz. Liquor). Choose your method of reducing: Every other occasion (2 drinks) OR each occasion 1 drink. 2. In a green party situation (or out to eat) think about one plate for the evening 3. For lunch and dinner, aim for 1/2 the plate veggies (you may choose to only have veggie appetizers) and keep the grains to 1/4 plate. 4. Continue to track all meals, snacks, and beverages. Aiming for: 40% of calories from carbohydrates, 25% from protein, 35% from fat (nuts, seeds, olive oil, fish, avocado). Goal for now for calories would be 1,400, understanding that a goal down the road might be 1,200 but you will probably see progress at 1,400. Assessing Calorie Goals at this time? [facility] Metrics 12/30/2017 RMR (kcal/day) 1389 Monitor/Evaluate: Will follow up in [facility] for Eatsmarter classes Aim for 5-10% weight loss from ABW x 3-6 months from initial visit Thank you 45 minutes were spent today in face to face contact Mary Cerna RD LD documented in this encounter Plan of Treatment Upcoming Encounters Date Type Department Care Team (Late st Contact Info) Description 03/13/2024 9:45 AM EDT Office Visit Dermatology at [place] [address] [place] [address] Emiliano Salinas MD [address], [place] [address] documented as of this encounter Visit Diagnoses Diagnosis Adult BMI 30.0-30.9 kg/sq m Body Mass Index 30.0-30.9, adult documented in this encounter Care Teams Primary Teacher Relationship Specialty Start Date End Date Juan Smith MD [address] [place] [address] PCP - General Family Medicine 05/10/16 09/02/21 documented as of this encounter
--- OUTSIDE RECORDS SUMMARY | 2024-02-15 13:17 | XMS_ITS | Encounter Summary ---
Author Organization [facility] Address [facility] [place] [address] Care Team Providers Care Hand Embroiderer Name Role Phone Chantell Sharma APRN Primary Care Provider [phone] Encounter Details Date Type Department Care Team (Late st Contact Info) Description 02/07/[address] [facility] [address] [place] [address] Vern Salmeron MD [facility] [address] [address] Social History Tobacco Use Types Packs/Day Years [...] encounter Miscellaneous Notes * Telephone Encounter - Mariana Young RN - 02/07/2016 3:10 PM EDT This fiction writer returned patient's call. She requested an estimate of future laser treatments. Per her verbal instructions I left a message. The estimated charge would be anywhere between $350 - $600 . Depending on the laser and number of pulses. Mariana Young RN documented in this encounter Plan of Treatment Upcoming Encounters Date Type Department Care Team (Late st Contact Info) Description 03/13/2024 9:45 AM EDT Office Visit Dermatology at [place] [address] [facility] [place] [address] Emiliano Salinas MD [address], BAKARI [place] [address] documented as of this encounter Visit Diagnoses Not on filedocumented in this encounter Care Teams Hand Embroiderer Relationship Specialty Start Date End Date Chantell Sharma APRN PCP - General 07/09/13 05/09/16 documented as of this encounter
--- OUTSIDE RECORDS SUMMARY | 2024-02-15 13:17 | XMS_ITS | Encounter Summary ---
[place] [address] Care Team Providers Care Carriage Operator Name Role Phone Juan Smith MD Primary Care Provider [phone] Encounter Details Date Type Department Care Team (Latest Contact Info) Description 04/17/2019 10:00 AM EST Laboratory Appointment Lab [address] [place] [id number] Familial hypercholesterolemia Social History Tobacco Use Types [...] 9:45 AM EDT Office Visit Dermatology at [place] [address] [place] [address] Emiliano Salinas MD [address], [place] [address] documented as of this encounter Procedures Procedure Name Priority Date/Time Associated Diagnosis Comments HC HSCRP Routine 04/17/2019 9:21 AM EST Familial hypercholesterolemia LIPID PANEL (REFLEX DIRECT LDL) Routine 04/17/2019 9:21 AM EST Familial hypercholesterolemia documented in this encounter Results * Lipid Panel (Reflex Direct LDL) (04/17/2019 9:21 AM EST) Cholesterol, Total 252 mg/dL [facility] Comment: Lower Risk: <200 mg/dL Average Risk: 200-239 mg/dL Higher Risk: >xj=129 mg/dL Triglyceride 157 mg/dL [facility] Comment: Average Risk/Lower Risk: <150 mg/dL Borderline High Risk: 150-199 mg/dL High Risk: 200-499 mg/dL Very High Risk: >qk=595 mg/dL HDL Cholesterol 74 mg/dL [facility] Comment: Males: ?? Higher Risk: <40 mg/dL Females: ?? HIgher Risk: <50 mg/dL LDL Cholesterol 147 mg/dL [facility] Comment: Lowest Risk: <100 mg/dL Lower Risk: 100-129 mg/dL Borderline High Risk: 130-159 mg/dL High Risk: 160-189 mg/dL Very High Risk: >ym=496 mg/dL Cholesterol/HDL Ratio 3.4 ratio [facility] Lipid Interpretation See Note [facility] Comment: Lipid management should be guided by a patient? s ASCVD risk, goals and preferences. ACC/AHA Guidelines recommend high intensity statin if clinical ASCVD or LDL greater than or equal to 190 mg/dL. http://tinyurl.com/OJI-HEK-Ovifhitmu Adults aged 40-75 with LDL 70-189 mg/dL should have their 10 year ASCVD risk estimated with the ACC/AHA ASCVD risk market basket maker http://tools.acc.org/UYAHY-Mkeq-Qtliijflj/ Statin should be discussed if risk greater [...] In Lab Tory Montalvo MD CHEMISTRY ORDERABLES [facility] [place] [address] * CRP, cardiac risk (HS CRP) (04/17/2019 9:21 AM EST) C-Reactive Protein High Sensitivity 1.6 mg/L [facility] Comment: For cardiac risk assessment, [...] Cardiovascular Disease. ??Circulation 2003; 107:499-511 2. Caleb ALEXIS. ??Clinical applications of C-reactive protein for cardiovascular disease detection and prevention. ??Circulation 2003; 107:363-369 CRP Cardiac Risk Moderate Risk [facility] Blood specimen (specimen) 04/17/2019 9:21 AM EST 04/17/2019 9:40 AM EST Narrative Resulting Agency Comment Spec In Lab Tory Montalvo MD CHEMISTRY ORDERABLES [facility] [place] [address] documented in this encounter Visit Diagnoses Diagnosis Familial hypercholesterolemia Pure hypercholesterolemia documented in this encounter Care Teams Carriage Operator Relationship Specialty Start Date End Date Juan Smith MD [facility] [place] [address] PCP - General Family Medicine 05/10/16 09/02/21 documented as of this encounter
--- OUTSIDE RECORDS SUMMARY | 2024-02-15 13:17 | XMS_ITS | Encounter Summary ---
Author Organization [facility] [facility] [place] [address] Care Team Providers Care Night Clerk Auditor Name Role Phone Juan Smith MD Primary Care Provider [phone] Reason for Visit * Diagnostic Test (Routine) - Closed Specialty Diagnoses / Procedures Referred By Contac t Referred To Contact Radiology Diagnoses Chest pain, unspecified type SOB (shortness of breath) Procedures NM Pharmacologic Stress Myocardial Perfusion oTry Montalvo MD [facility] [place] [address] [place] [address] Referral ID Status Reason Start Date Expiration Date V isits Requested Visits Authorized [id number] Closed Specialty Service Requested 03/05/2019 05/03/2019 1 1 Encounter Details Date Type Department Care Team (Latest Contact Info) Description 03/12/2019 9:23 AM EDT Hospital En[place] [address] Tory Montalvo MD Discharge Disposition: [...] azelastine (ASTELIN) 137 mcg (0.1 %) Aerosol, [place] 0 11/06/2017 0 09/03/2022 ASCORBATE CALCIUM (VITAMIN C ORAL) Take by mouth. 09/03/2022 ERGOCALCIFEROL, VITAMIN D2, (VITAMIN D ORAL) Take by mouth. multivitamin (THERAGRAN) tablet Take 1 tablet by mouth daily. 09/03/2022 fexofenadine (EVANGELINA) 180 mg tablet 180 mg, PO, Once daily 08/28/2010 09/03/2022 Mometasone (NASONEX) 50 mcg/Actuation [place] 2 [place](s) each nostril, Nasal, Twice daily 08/28/2010 09/03/2022 documented as of this encounter Plan of Treatment Upcoming Encounters Date Type Department Care Team (Late st Contact Info) Description 03/13/2024 9:45 AM EDT Office Visit Dermatology at [place] [address] [facility] [place] [address] Emiliano Salinas MD [address], BAKARI [place] [address] documented as of this encounter Procedures Procedure Name Priority Date/Time Associated Diagnosis Comments NM PHARMACOLOGIC STRESS AND REST MYOCARDIAL PERFUSION Routine 03/12/2019 10:40 AM EDT Chest pain, unspecified type SOB (shortness of breath) documented in this encounter Results * NM Pharmacologic Stress CT Component (03/12/2019 [...] below. Tory Montalvo MD IMG NM ORDERABLES * NM Pharmacologic Stress Myocardial Perfusion (03/12/2019 [...] contact the number below. Tory Montalvo MD IM NM ORDERABLES documented in this encounter Visit Diagnoses Not on filedocumented in this encounter Care Teams Night Clerk Auditor Relationship Specialty Start Date End Date Juan Smith MD [address] [place] [address] PCP - General Family Medicine 05/10/16 09/02/21 documented as of this encounter
--- OUTSIDE RECORDS SUMMARY | 2024-02-15 13:17 | XMS_ITS | Encounter Summary ---
[place] [address] Care Team Providers Care Television News Video Editor Name Role Phone Juan Smith MD Primary Care Provider [phone] Encounter Details Date Type Department Care Team (Latest Contact Info) Description 04/17/2019 11:00 AM EST Office Visit Cardiology at [address] [id number] Timur Chambers MD Familial hypercholesterolemia Social History [...] Time Taken Comments Blood Pressure 135/64 04/17/2019 10:43 AM EST Pulse 88 04/17/2019 10:43 AM EST Temperature - - Respiratory Rate - - Oxygen Saturation 98% 04/17/2019 10: 43 AM EST Inhaled Oxygen Concentration - - Weight 77.1 kg (169 lb 14.4 oz) 019 10:43 AM EST Height 162.6 cm (5' 4) 04/17/2019 10:4 3 AM EST Body Mass Index 29.16 04/17/2019 10:43 AM EST documented in this encounter Progress Notes * Timur Chambers MD - 04/17/2019 11:00 AM EST [facility] Lipid Clinic-Follow Up Visit ID/PMH Yessenia is a 69 y.o. 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 She was in 2002 and has had a significant other for many years. Boyfriend (Deacon Peterson) lives in [place]. She has 5 children (2 biologic and 2 step) 3 biologic and 8 step grandchildren. She enjoys travel, walking, kayaking, reading, and gardening friends and family ?? Present Illness Yessenia Luong is seen at the request of Juan Smith MD for follow-up management of dyslipidemia, specifically a diagnosis of familial hypercholesterolemia and the inability to tolerate statins she has been treated with both rosuvastatin and atorvastatin at multiple different doses. While on statins she experiences severe proximal muscle pain and weakness which improves when she discontinues thestatin only to recur with rechallenge. In November Dr. Smith encouraged her to have a trial of atorvastatin 10 mg daily but she again experienced intolerable side effect. Unfortunately, she is also been intolerant of the PCSK9 inhibitors which were fine for about 6 months then she sudddenly developed total body muscle spasms. This occurred with both evolocumab and alirocumab. At her initial visit I recommended ezetimibe 10 mg daily in conjunction with 5 mg of rosuvastatin twice a week as well as Vasepa 4 grams daily. ?? Additionally, based on her complaint of shortness of breath and chest discomfort with exertion I ordered a stress test. Her stress test was negative for ischemia or evidence of an old infarct but waspositive for coronary calcium indicating underlying coronary disease. She presents today to assess her response to ezetimibe and intermittent dose rosuvastatin as well as dietary changes. She is not tolerating the twice weekly rosuvastatin - Tuesdays and Fridays. She is describing muscle aches / feeling tired and a little depressed. She waited until this appt but plans to discontinue rosuvastatin after this appt. ROS General:As above Cardiac: no chest pressure or pain MSK:as above Medications Current Outpatient Medications Medication Sig Dispense Refill ??? celecoxib (CELEBREX) 200 mg Capsule TK 1 C PO QD PRN FOR JOINT PAIN 1 ??? finasteride (PROSCAR) 5 mg Tablet Take 1 tablet by mouth daily. 30 tablet 5 ??? sulfacetamide (KLARON) 10 [...] azelastine (ASTELIN) 137 mcg (0.1 %) Aerosol, [place] 0 ??? PROVENTIL HFA 90 mcg/actuation HFA [...] Once daily ??? Mometasone (NASONEX) 50 mcg/Actuation [place] 2 [place](s) each nostril, Nasal, Twice daily No current facility-administered medications for this visit. Allergies Bee pollen; Morphine; Sulfa (sulfonamide antibiotics); and Voltaren [diclofenac sodium] Physical Exam General: 69-year-old woman with a BMI of 29.1 VS: BP 135/64 Pulse 88 Ht 162.6 cm (5' 4) Wt 77.1 kg (169 lb 14.4 oz) SpO2 98% BMI 29.16kg/m?? Lungs: clear Heart: S1S2, no MGR, RRR Psych: Appropriate affect. Labs Lab Results Component Value Date CHLPL 252 04/17/2019 HDL 74 04/17/2019 LDLCHOL 147 04/17/2019 TRIG 157 04/17/2019 Assessment Yessenia has had a good response to the combination of ezetimibe, rosuvastatin 5 mg twice weekly and Vascepa 4 g daily. Unfortunately, she is not tolerating the rosuvastatin. She waited until this visitto discontinue it but plans to stop the rosuvastatin now due to significant proximal muscle aches that are intolerable to her. She is willing to try atorvastatin 10 mg once a week, she is willing to continue the ezetimibe and the Vascepa. As you know, she did not tolerate either of the PCSK9 inhibitors. Based on her recent stress test Yessenia has good cardiac function but she was noted to have coronary calcium indicating some underlying coronary disease. Today we also talked about additional things she could do to improve her diet specifically restricting saturated fat (cheese Etc). We also discussed new medications on the horizon. It is possible that in July or August bempedoic acid will be on the market. This is an agent that inhibits ATP citrate [...] which will help lower her LDL further. Plan ?? Medication changes: Stop rosuvastatin, begin atorvastatin 10 mg once weekly continue ezetimibe 10 mg daily, continue Vasepa 4 grams per day ?? Investigations: labs and a visit in 6 months - earlier if bempedoic acid comes on the market ?? Counseling: I explained my impression and answered all Yessenia's questions. Follow up 10-16-19 This visit was 25 minutes in length of which 20 minutes were spent in counseling TIMUR CHAMBERS MD 04/17/2019 CC: Juan Smtih MD documented in this encounter Plan of Treatment Upcoming Encounters Date Type Department Care Team (Late st Contact Info) Description 03/13/2024 9:45 AM EDT Office Visit Dermatology at [place] [address] [place] [address] Emiliano Salinas MD [address], [place] [address] documented as of this encounter Visit Diagnoses Diagnosis Familial hypercholesterolemia Pure hypercholesterolemia documented in this encounter Care Teams Television News Video Editor Relationship Specialty Start Date End Date Juan Smith MD [facility] [place] [address] PCP - General Family Medicine 05/10/16 09/02/21 documented as of this encounter
--- OUTSIDE RECORDS SUMMARY | 2024-02-15 13:17 | XMS_ITS | Encounter Summary ---
Author Organization [facility] [place] [address] Care Team Providers Care Technical Services Librarian Name Role Phone Chantell Sharma APRN Primary Care Provider [phone] Reason for Visit * Reason Comments Laser Treatment Encounter Details Date Type Department Care Team (Late st Contact Info) Description 02/06/2016 10:30 AM EDT Office Visit Dermatology at [facility] [address] [place] [id number] Mariana Young, JYOTI Telangiectasia; Rhytides; Solar lentigo Social History Tobacco Use Types Packs/Day Years [...] this encounter Patient Instructions * Patient Instructions* Mariana Young RN - 02/06/2016 10:30 AM EDT Vascular Beam (vbeam)....... ........ For redness , fine blood vessels on face IPL (Intense Pulse Light)............ For brown pigmented spots Non Ablative Fraxel Laser.......... Helps reduce appearance of wrinkles ?? Potential adverse events including pain or stinging, [...] discomfort For further questions and concerns contact: [phone] [place] (Dr. Salmeron's Appointment [place]) In any case of emergency for weekends and off hours please contact [facility] main number and ask for jeep driver injection molding machine offbearer at [phone] documented in this encounter Progress Notes * Mariana Young RN - 02/06/2016 10:30 AM EDT Chief Problem: 1. Rosacea & Telangiectasias 2. Here for pulsed dye laser treatment 3. Lentigines , Intense pulsed light treatment 4. Age related wrinkles , solar elastosis HISTORY & DISCUSSION: 65 y.o. year old female, here for discussion of laser treatment options for rosacea, telangiectasias , lentigines and evans-oral wrinkles. Yessenia has had pulsed dye laser treatment in the past and reports it was well tolerated and effective in reducing her facial vessels . She has also had IPL in the past for reduction of lentigines . We additionally discussed non-ablative fractionated laser to treat evans-oral wrinkles . Reviewed potential adverse events from laser treatments including pain or stinging, possible bruising (common), swelling, hyperpigmentation and hypopigmentation, erosion or blister formation (uncommon). Patient clearly understood these potential risks. Multiple treatments with any of the lasers will be required for optimum benefit.Total number of treatments depend on the baseline degree of telangiectasia,lentigines and evans-oral wrinkles. patient'sresponse, expectations and desires. She may need touch-up treatments every year. . The patient knows that laser treatments , for this purpose is strictly a cosmetic procedure, insurances will not cover these procedures, and we will not submit it to the company. The patient will have to pay for the procedure, at the time of the procedure/visit. I was unable to give patient a pricequote for all of the treatments together. The treatment would be at least $350 and perhaps up to $500 for all the 3 lasers in one appointment EXAMINATION: Focal examination of the face. Rosacea changes and increased telangiectasias scattered over the central face. Nose, malar cheeks and chin involved. Appropriate for pulsed dye laser therapy. Moderate amount of vascular changes Patient is moderately casey , has a few lentigines mostly on lateral face Moderate evans-oral rhytids DIAGNOSIS/ASSESSMENT: 1. Rosacea & Telangiectasias, appropriate for pulsed dye laser 2. Lentigines , amenable to the IPL but she is casey so best to treat at a later date 3. Evans-oral lentigines amendable to fractionated non-ablative laser / 1064nm/532nm kalpesh or 1540nm PLAN: LASER PROCEDURE 1. Patient decided to have the laser procedures at a later date when her casey has faded and she willhave limited time in the sun Follow up: Patient to schedule all procedures the same day , Pulsed dye , IPL and non-ablative fractionated laser. Dr. Salmeron to evaluate patient and prescribe settings PRN. Mariana Young RN * Karla Gaines MD - 02/06/2016 10:30 AM EDT I was the supervising physician working with Ms. Young in the Dermatology Clinic during this patient visit. The level of supervision for this patient visit was indirect supervision with direct supervision immediately available. I was immediately available to Ms. Young for questions and discussion regarding this visit. I have reviewed his encounter note details and level of service. KARLA GAINES MD FAAD Staff Physician documented in this encounter Plan of Treatment Upcoming Encounters Date Type Department Care Team (Late st Contact Info) Description 03/13/2024 9:45 AM EDT Office Visit Dermatology at [place] [address] [place] [address] Emiliano Salinas MD [address] [facility] [facility], [address] [place] [address] documented as of this encounter Visit Diagnoses Diagnosis Telangiectasia Other and unspecified capillary diseases Rhytides Other specified hypertrophic and atrophic condition of skin Solar lentigo Other dyschromia documented in this encounter Care Teams Technical Services Librarian Relationship Specialty Start Date End Date Chantell Sharma APRN PCP - General 07/09/13 05/09/16 documented as of this encounter
--- OUTSIDE RECORDS SUMMARY | 2024-02-15 13:17 | XMS_ITS | Encounter Summary ---
[place] [address] Care Team Providers Care Computer Applications Instructor Name Role Phone Juan Smith MD Primary Care Provider [phone] Encounter Details Date Type Department Care Team (Latest Contact Info) Description 02/13/2019 10:20 AM EDT Laboratory Appointment Lab [address] [place] [phone] Familial hypercholesterolemia Social History Tobacco Use Types [...] 9:45 AM EDT Office Visit Dermatology at [place] [address] [place] [address] Emiliano Salinas MD [address], [place] [address] documented as of this encounter Procedures Procedure Name Priority Date/Time Associated Diagnosis Comments HC PCH LIPOPROTEIN A Routine 02/13/2019 9:49 AM EDT Familial hypercholesterolemia HC VENIPUNCTURE Routine 02/13/2019 9:49 AM EDT Familial hypercholesterolemia LIPID PANEL (REFLEX DIRECT LDL) Routine 02/13/2019 9:49 AM EDT Familial hypercholesterolemia COMPREHENSIVE METABOLIC PANEL Routine 02/13/2019 9:49 AM EDT Familial hypercholesterolemia documented in this encounter Results * Lipid Panel (02/13/2019 9:49 AM EDT) Cholesterol, Total 324 mg/dL [facility] Comment: Lower Risk: <200 mg/dL Average Risk: 200-239 mg/dL Higher Risk: >uk=956 mg/dL Triglyceride 183 mg/dL [facility] Comment: Average Risk/Lower Risk: <150 mg/dL Borderline High Risk: 150-199 mg/dL High Risk: 200-499 mg/dL Very High Risk: >zi=304 mg/dL HDL Cholesterol 68 mg/dL [facility] Comment: Males: ?? Higher Risk: <40 mg/dL Females: ?? HIgher Risk: <50 mg/dL LDL Cholesterol 219 mg/dL [facility] Comment: Lowest Risk: <100 mg/dL Lower Risk: 100-129 mg/dL Borderline High Risk: 130-159 mg/dL High Risk: 160-189 mg/dL Very High Risk: >jr=510 mg/dL Cholesterol/HDL Ratio 4.8 ratio [facility] Lipid Interpretation See Note [facility] Comment: Lipid management should be guided by a patient? s ASCVD risk, goals and preferences. ACC/AHA Guidelines recommend high intensity statin if clinical ASCVD or LDL greater than or equal to 190 mg/dL. http://[employer] Technologyurl.com/LOF-EEG-Ppezuhmly Adults aged 40-75 with LDL 70-189 mg/dL should have their 10 year ASCVD risk estimated with the ACC/AHA ASCVD risk municipal engineer http://tools.acc.org/KJLMB-Jcpi-Kwicohjit/ Statin should be discussed if risk greater [...] Montalvo MD CHEMISTRY ORDERABLES Performing Organization Address [facility] Co de Phone Number [facility] [place] [address] * Lipoprotein A (02/13/2019 9:49 AM EDT) Lipoprotein (a) 6 <=30 mg/dL [facility] Comment: Test Performed by: [facility] [place] [address] Field Service Analyst: Kyle Michel M.D. Ph.D.; CLIA# [id number] Blood specimen (specimen) 02/13/2019 9:49 AM EDT 02/13/2019 3:06 PM EDT Narrative Resulting Agency Comment Spec In Lab Tory Montalvo MD LAB SEND OUT ORDERAB LES Performing Organization Address [facility] Co de Phone Number [facility] [place] [address] * (ABNORMAL) Comprehensive metabolic panel (non-fasting) (02/13/2019 9:49 AM EDT) Glucose 108 65 - 199 mg/dL [facility] Comment:Diabetes: >=200 mg/d L plus symptoms Blood Urea Nitrogen 19(H) 8 - 18 mg/dL [facility] Creatinine 0.79 0.70 - 1.20 mg/dL [facility] Sodium 142 135 - 145 mmol/L [facility] Potassium 3.6 3.5 - 5.0 mmol/L [facility] Comment: Please note: ??Patients with WBC >100,000 may have falsely elevated Potassium levels. ??For accurate Potassium quantification in these patients send serum separator tube (gold top) for subsequent determinations. ??Contact the Clinical Chemistry Laboratory if there are any questions. Chloride 101 98 - 107 mmol/L [facility] Carbon Dioxide 28 22 - 31 mmol/L [facility] Anion Gap 13 5 - 15 mmol/L [facility] Calcium 9.8 8.5 - 10.5 mg/dL [facility] Protein, Total 7.5 6.1 - 8.0 gm/dL [facility] Albumin 4.8 3.2 - 5.2 gm/dL [facility] Aspartate Aminotransferase 22 0 - 30 unit/L [facility] Alanine Aminotransferase 24 0 - 30 unit/L [facility] Alkaline Phosphatase 64 35 - 105 unit/L [facility] Bilirubin, Total 0.4 0.2 - 1.3 mg/dL [facility] Est Glomerular Filtration Rate 76 >=60 mL/min/1. 73 m?? [facility] Comment: The eGFR was calculated using the CKD-EPI equation. As with all creatinine based estimates of kidney function, eGFR values calculated with the CKD-EPI equation are not accurate in patients with acute kidney failure, extremes of body mass or the acutely ill. [email or web address] eGFR 88 >=60 mL/min/1. 73 m?? [facility] Comment: The eGFR was calculated using the CKD-EPI equation. As with all creatinine based estimates of kidney function, eGFR values calculated with the CKD-EPI equation are not accurate in patients with acute kidney failure, extremes of body mass or the acutely ill. [email or web address] Blood specimen (specimen) 02/13/2019 9:49 AM EDT 02/13/2019 9:59 AM EDT Narrative Resulting Agency Comment Spec In Lab Tory Montalvo MD CHEMISTRY ORDERABLES Performing Organization Address City/[facility]/ZIP Co de Phone Number [facility] [place] [address] * TSH (02/13/2019 9:49 AM EDT) Thyroid Stimulating Hormone 2.34 0.27 - 4.20 mcIU/mL [facility] Blood specimen (specimen) 02/13/2019 9:49 AM EDT 02/13/2019 9:59 AM EDT Narrative Resulting Agency Comment Spec In Lab Tory Montalvo MD CHEMISTRY ORDERABLES Performing Organization Address [facility] [place] [address] documented in this encounter Visit Diagnoses Diagnosis Familial hypercholesterolemia Pure hypercholesterolemia documented in this encounter Care Teams Computer Applications Instructor Relationship Specialty Start Date End Date Juan Smith MD [address] [place] [address] PCP - General Family Medicine 05/10/16 09/02/21 documented as of this encounter
--- OUTSIDE RECORDS SUMMARY | 2024-02-15 13:17 | XMS_ITS | Encounter Summary ---
Author Organization [facility] [place] [address] Care Team Providers Care Aircraft General Repair Mechanic Name Role Phone Chantell Mims APRN Primary Care Provider [phone] Reason for Visit * Auth/Cert Specialty Diagnoses / Procedures Referred By Veronica t Referred To Contact Diagnoses Hypertrophy of breast Procedures PRO REDUCTION OF LARGE BREAST PRO EXCISE EXCESS SKIN TISSUE, ABDOMEN PRO SUCT SARAH LIPECTOMY, TRUNK 83535 BILAT 56041 ALSO BILAT 23211 Referral ID Status Reason Start Date Expiration Date Visits Re quested Visits Authorized [id number] 1 1 Encounter Details Date Type Department Care Team (Latest Contact Info) Description 06/14/2015 11:54 AM EST - 06/15/2015 5:08 PM [facility] Hospital Encounter [address] [place] [address] Carlee Montenegro MD [facility] [place] [address] S/P reduction mammoplasty Discharge Disposition: Home Social History Tobacco Use [...] Sign Reading Time Taken Comments Blood Pressure 97/43 06/15/2015 12:55 PM EST Pulse 84 06/15/2015 12:55 PM EST Temperature 36.9 ??C (98.4 ??F) 06/15/2015 12:[address] Respiratory Rate 19 06/15/2015 12:55 PM EST Oxygen Saturation 96% 06/15/2015 12:55 PM EST Inhaled Oxygen Concentration - - [...] 1 tablet Refills: 0 NASONEX 50 mcg/actuation [place] 2 [place](s) each nostril, Nasal, Twice daily Generic drug: [...] for Providers: None PCP: CHANTELL MIMS APRN BAKARI [address] / [facility] [address] Scheduled Appointments: The following appointments have been scheduled on your behalf: No future appointments. Outpatient Services/Studies: Referral to Home Health - at DISCHARGE Scheduling Instructions: DOCUMENTATION FOR VNA SERVICES (INCLUDING THOSE PATIENTS WITH MEDICARE COVERAGE REQUIRING HOME VNA SERVICES AND/OR HOSPICE SERVICES) PATIENT'S LOCATION: Yessenia Luong [address] [place] [phone] (home) Cell: Telephone Information: Exercise Rider's Name: self In discussion with the attending physician, it is certified that this patient is under their care and that they, or a Nurse Practitioner,Clinical Nurse specialist or Physician Methods Time Analyst who is working directly with them, had [...] for managing ADL's. HOME HEALTH CARE AGENCY: [facility] PHONE: [phone] FAX: [phone] Start of care: 06/16/2015 FOR MEDICARE ONLY: [...] obtained from this patient's PCP: CHANTELL MIMS, STONE POLISHER BAKARI [address] / [place] [address] All A agencies which cover the area of patient's residence have been reviewed, either verbally ida writing, and patient/family have chosen the home health care agency noted A list of Home Health Agencies/DMEs which serve the geographic area which the patient resides or the geographic area requested by the patient/termite control representative was made available.Full Disclosure Statement provided, as appropriate. Patient requests referral to [facility]. Referral matched w agency/vendor and info provided via Solar Census program Question Response Notes Agency name and contact information [facility] Patient location post discharge home What services [...] good night sleep. Pain (short term and intermediate manager) ?? With any surgery there is some discomfort or pain. We will prescribe pain medication. Take as prescribed and only as needed. OK to take Tylenol, do not exceed 3 grams per day. OK to add Ibuprofen 48 hours after surgery. ?? We recommend taking an bglp-eyh-Zofganl stool softener, such as Colace (docusate) or [...] scheduling, please contact our administrative offices at [phone] ?? For clinical questions, please call our nurses at [phone] ?? Both offices are open Saturday thru Saturday 8a - 5p. With emergencies after hours, call the hospital centerless grinder set up operator at [phone] and ask for the Plastic Surgery Resident contact finger assembler. Instructions for Abdominal Surgery During the first [...] from each drain. Call the clinic at [phone] and schedule an appointment with the nurses [...] Saturday 8 am to 5 pm Call [phone] On weekends or after hours: Call [phone] and ask the centerless grinder set up operator to page the Plastic Surgery Resident contact finger assembler. Prescription Line: Call the line at [phone] from 8am-4pm Saturday through Saturday. Narcotic renewals [...] good night sleep. Pain (short term and skilled nursing) ?? With any surgery there is some discomfort or pain. We will prescribe pain medication. Take as prescribed and only as needed. OK to take Tylenol, do not exceed 3 grams per day. OK to add Ibuprofen 48 hours after surgery. ?? We recommend taking an qqgb-ios-Zbeluqk stool softener, such as Colace (docusate) or [...] scheduling, please contact our administrative offices at [phone] ?? For clinical questions, please call our nurses at [phone] ?? Both offices are open Saturday thru Saturday 8a - 5p. With emergencies after hours, call the hospital centerless grinder set up operator at [phone] and ask for the Plastic Surgery Resident contact finger assembler. Instructions for Abdominal Surgery During the first [...] from each drain. Call the clinic at [phone] and schedule an appointment with the nurses [...] Saturday 8 am to 5 pm Call [phone] On weekends or after hours: Call [phone] and ask the centerless grinder set up operator to page the Plastic Surgery Resident contact finger assembler. Prescription Line: Call the line at [phone] from 8am-4pm Saturday through Saturday. Narcotic renewals [...] mouth nightly. 12/06/2017 fluticasone (FLONASE) 50 mcg/actuation [place], Suspension 1 spray daily. 06/23/19 16 BUDESONIDE/FORMOTEROL [...] ORAL) 08/28/2010 12/06/2017 Mometasone (NASONEX) 50 mcg/Actuation [place] 2 [place](s) each nostril, Nasal, Twice daily 08/28/2010 09/03/2022 documented as of this encounter Progress Notes * Jyoti Ingram RN - 06/15/2015 4:43 PM EST I assumed care for this [atoient from [phone]. Patient discharged to home. IV removed, site [...] or the geographic area requested by the patient/termite control representative was made available.Full Disclosure Statementprovided, as appropriate. Patient requests referral to [facility]. Referral matched w agency/vendor and info provided via Convio * Wilman Jacobo MD - 06/14/2015 11:55 PM EST Post-Operative Progress Note Patient: Yessenia Luong s/p Surgery: 06/14/2015 [id number] Procedure(s) (LRB): REDUCTION MAMMOPLASTY, ADAM (Bilateral) ABDOMINOPLASTY (N/A) SUCTION ASSISTED LIPECTOMY,TRUNK (Bilateral) Surgeon(s) and Role: * Carlee Montenegro MD - Primary * Dudley Kramer MD: 3 Hr 37 Min 29 Sec * No complications entered in OR log * Short History: awakened from anesthesia, extubated and taken to the recovery room in a stable condition, having suffered no apparent untoward event. Patient location: [facility] Surgical Floor Post-op Consciousness awake, alert and [...] Montenegro MD - 06/14/2015 8:03 PM EST [facility] [place] [place] Operative Note Patient Name: Yessenia Luong : [id number] MR#: [id number] Case Date: 06/14/2015 Surgeon: Surgeon(s) and Role: [...] 15-blade and the umbilical stalk developed with Helen scissor dissection. A 0-Vicryl suture was placed [...] Operative Note Patient Name: Yessenia Luong : [id number] MR#: [id number] Case Date: 06/14/2015 Surgeon: Surgeon(s) and Role: [...] 9:45 AM EDT Office Visit Dermatology at [place] [address] [facility] [place] [address] Emiliano Salinas MD [address] [facility], [address] [place] [address] documented as of this encounter Procedures Procedure [...] intervals supplied above were not validated at [facility] [place] [place]. Results from pediatric patients should be interpreted [...] the following links into your internet browser. [email or web address] Blood specimen (specimen) 06/15/2015 10:36 AM EST 06/15/2015 10:49 AM EST Narrative Resulting Agency Comment Spec In Lab Carlee Montenegro MD CHEMISTRY ORDERABLES [facility] * Surgical Pathology Report (06/14/2015 5:25 PM EST) Final Diagnosis [id number] ? Location: [facility]; [facility]; The signing pathologist has (i) examined the relevant preparation(s) for the specimen(s) and (ii) rendered or confirmed the diagnosis(es). . ?Surgical Pathology DIAGNOSIS A - Right breast, reduction mammoplasty: ??Benign breast tissue. B - Left breast, reductin mammoplasty: ??Benign breast tissue. 06/17/15 [facility]B 06/17/15 Verified by: ? Choco DOShereen ?Pathologist ?(Electronic Signature) The attending pathologist whose [...] (R3) ?? yal 06/17/2015 10:21 AM EST [facility] BREAST STRUCTURE / Unknown 06/14/2015 5:25 PM EST 06/14/2015 5:25 PM EST BREAST STRUCTURE / Unknown 06/14/2015 5:25 PM EST 06/14/2015 5:25 PM EST Carlee Montenegro MD PATHOLOGY/CYTOLOGY O E[place]A [facility] [place] [address] * Specimen to Pathology (surgical or derm) [...] MORAN documented in this encounter Visit Diagnoses Diagnosis S/P reduction mammoplasty Other plastic surgery for unacceptable cosmetic appearance Macromastia Hypertrophy of breast documented in this encounter Administered Medications Inactive [...] Given 06/15/2015 3:32 AM EST 1,000 mg ceFAZolin (ANCEF) 2g in dextrose 5% 50 [...] 06/15/2015 12:30 AM EST 2 g 100 mL /hr docusate sodium (COLACE) capsule 100 mg 100 [...] Given 06/14/2015 12:47 PM EST 3 mg niacin (NIASPAN ER) ER tablet 1,000 mg [...] Sat06/15/15 at 1908, Recovery (Recovery-Hospital Unit) New 06/14/2015 8:30 PM EST 100 mL/hr 100 mL /hr traZODone (DESYREL) tablet 100 mg 100 mg, [...] IV infusing) 0915 (Given - Provider: Beth Peterson, JYTOI) traZODone (DESYREL) tablet 100 mg (CANCELED) 100 mg, Oral, NIGHTLY, First dose on Sat06/14/15 at 2300, Until Discontinued, Routine 2343 (Given - Provider: Rick Marshall, JYOTI) Continuous Medication Order 06/13/2015 06/14/2015 06/15/2015 lactated [...] 2127 (Given - Provider: Nan Clement RN) 0332 (Given - Provider: Rick Marshall, JYOTI)0942 (Given - Provider: Beth Peterson, JYOTI)1535 (Given - Provider: Beth Peterson, JYOTI) BUpivacaine-EPINEPHrine 0.25 %-1:200,000 injection (CANCELED) ONCE PRN, Starting on Sat06/14/15 at 1921, Until 1/5/16 at 2159, Intra-Operative (Intra-Procedure), Routine 1921 (Given - Provider: Carlee Montenegro MD - Comment: Injected into drain) HYDROmorphone (DILAUDID) tablet 2 mg 2 mg, Oral, EVERY 4 HOURS PRN, Starting on Sat06/14/15 at 2208, Until Sat06/15/15 at 1908, Pain, Use if acetaminophen and/or ibuprofen ineffective. May repeat once in 60 minutes if pain not relieved., Routine 2354 (Given - Provider: Rick Marshall RN) 0334 (Given - Provider: Rick Marshall RN) lidocaine [...] Until Sat06/14/15 at 2159, Intra-Operative (Intra-Procedure), Routine 1808 (Given - Provider: Carlee Montenegro MD) documented in this encounter Care Teams Aircraft General Repair Mechanic Relationship Specialty Start Date End Date Chantell Mims APRN PCP - General 07/09/13 05/09/16 documented as of this encounter
--- OUTSIDE RECORDS SUMMARY | 2024-02-15 13:17 | XMS_ITS | Encounter Summary ---
Author Organization [facility] [facility] [place] [address] Care Team Providers Care Champagne Maker Name Role Phone Juan Smith MD Primary Care Provider [phone] Reason for Referral * Diagnostic Test (Routine) - Closed Specialty Diagnoses / Procedures Referred By Contac t Referred To Contact Radiology Diagnoses Chest pain, unspecified type SOB (shortness of breath) Procedures NM Pharmacologic Stress CT Component Tory Montalvo MD [facility] [place] [address] [place] [address] Referral ID Status Reason Start Date Expiration Date V isits Requested Visits Authorized [id number] Closed Specialty Service Requested 02/13/2019 02/13/2020 1 1 Reason for Visit * Diagnostic Test (Routine) - Closed Specialty Diagnoses / Procedures Referred By Contac t Referred To Contact Radiology Diagnoses Chest pain, unspecified type SOB (shortness of breath) Procedures NM Pharmacologic Stress CT Component Tory Montalvo MD [facility] [place] [address] [place] [address] Referral ID Status Reason Start Date Expiration Date V isits Requested Visits Authorized [id number] Closed Specialty Service Requested 02/13/2019 02/13/2020 1 1 Encounter Details Date Type Department Care Team (Latest Contact Info) Description 03/12/2019 9:24 AM EDT Hospital Encounter [place] [address] Tory Montalvo MD Chest pain, unspecified type; [...] azelastine (ASTELIN) 137 mcg (0.1 %) Aerosol, [place] 0 11/06/2017 0 09/03/2022 ASCORBATE CALCIUM (VITAMIN C ORAL) Take by mouth. 09/03/2022 ERGOCALCIFEROL, VITAMIN D2, (VITAMIN D ORAL) Take by mouth. multivitamin (THERAGRAN) tablet Take 1 tablet by mouth daily. 09/03/2022 fexofenadine (EVANGELINA) 180 mg tablet 180 mg, PO, Once daily 08/28/2010 09/03/2022 Mometasone (NASONEX) 50 mcg/Actuation [place] 2 [place](s) each nostril, Nasal, Twice daily 08/28/2010 09/03/2022 documented as of this encounter Plan of Treatment Upcoming Encounters Date Type Department Care Team (Late st Contact Info) Description 03/13/2024 9:45 AM EDT Office Visit Dermatology at [place] [address] [facility] [place] [address] Emiliano Salinas MD [address], [place] [address] documented as of this encounter Procedures Procedure Name Priority Date/Time Associated Diagnosis Comments NM PHARMACOLOGIC STRESS CT COMPONENT Routine 03/12/2019 11:18 AM EDT Chest pain, unspecified type SOB [...] report, please contact the number below. ? Electronically signed by: Noah Arcos [facility] ([phone]), at 03/12/2019 4:26 PM Narrative 03/12/2019 4:26 PM EDT EXAMINATION: NM [...] this report, please contact the number below. Electronically signed by: Noah Arcos [facility]([phone]), at 03/12/2019 4:26 PM Tory Montalvo MD IMG NM ORDERABLES documented in this encounter Visit Diagnoses Diagnosis Chest pain, unspecified type SOB (shortness of breath) Shortness of breath documented in this encounter Care Teams Champagne Maker Relationship Specialty Start Date End Date Juan Smiht MD [address] [place] [address] PCP - General Family Medicine 05/10/16 09/02/21 documented as of this encounter
--- OUTSIDE RECORDS SUMMARY | 2024-02-15 13:18 | XMS_ITS | Encounter Summary ---
Author Organization [facility] [place] [address] Care Team Providers Care Label Printer Name Role Phone Franca Charles MD Primary Care Provider [phone] Encounter Details Date Type Department Care Team (Late st Contact Info) Description 08/28/2010 10:30 AM EDT [place] [address] Vern Salmeron MD [facility] [address] [place] [address] Discharge Disposition: Home Social History Tobacco Use [...] 9:45 AM EDT Office Visit Dermatology at [place] [address] [place] [address] Emiliano Salinas MD [address], [place] [address] documented as of this encounter Visit Diagnoses Not on filedocumented in this encounter Care Teams Label Printer Relationship Specialty Start Date End Date Franca Charles MD [address] [place] [address] PCP - General 05/02/10 01/30/11 documented as of this encounter
--- OUTSIDE RECORDS SUMMARY | 2024-02-15 13:18 | XMS_ITS | Encounter Summary ---
Author Organization [facility] [place] [address] Care Team Providers Care Therapeutic Mentor Name Role Phone Franca Charles MD Primary Care Provider [phone] Encounter Details Date Type Department Care Team (Late st Contact Info) Description 12/25/2010 Orders [place] [address] Mariana Hernandez MD [facility] [place] [address] History of foreign travel (Primary Dx) Social History Tobacco Use Types Packs/Day Years Used Date Smoking Tobacco: Never Assessed Sex and Gender Information Value Date Recorded Sex Assigned at Not on file Gender Identity Not on file Sexual Orientation Not on file documented as of this encounter Progress Notes * Danika Chin, JYOTI - 12/25/2010 11:16 AM EDT Subjective: Patient ID: Yessenia Luong is a 60 y.o. female. History of travel to [place] on 11/27/2010 for 3 weeks while traveling ate everything; did develop a fever with diarrhea and took her Cipro., but only 4 doses (states this is what the pharmacy gave her, although it is not documented as being written).Symptoms improved after the four doses, but upon return to home, diarrhea resumed; slight fever, but no other symptoms. Discussed with Dr. Hernandez; Pt agrees to go to [facility] for stool studies to include giardia, crypto, O&P, and stool cultures. Will e-fax another script for Cipro 500 mg BID for three days to [facility] in [facility]. Pt. States understanding she needs to give stool specimen before starting the antibiotic and agrees to do so. HPI Review of Systems Objective: Physical Exam Assessment and Plan: No problem-specific visit notes found for this encounter. documented in this encounter Plan of Treatment Upcoming Encounters Date Type Department Care Team (Late st Contact Info) Description 03/13/2024 9:45 AM EDT Office Visit Dermatology at [place] [address] [facility] [place] [address] Emiliano Salinas MD [address], [place] [address] documented as of this encounter Visit Diagnoses Diagnosis History of foreign travel- Primary Other specified conditions influencing health status documented in this encounter Care Teams Therapeutic Mentor Relationship Specialty Start Date End Date Franca Charles MD [address] [place] [address] PCP - General 05/02/10 01/30/11 documented as of this encounter
--- OUTSIDE RECORDS SUMMARY | 2024-02-15 13:18 | XMS_ITS | Encounter Summary ---
[facility] Organization [facility] [place] [address] Care Team Providers Care Rn Telephone Triage Name Role Phone Susan Sharmarebecca eLster APRN Primary Care Provider [phone] Reason for Visit * Reason Onset Date Comments Results 08/05/2013 Encounter Details Date Type Department Care Team (Late st Contact Info) Description 08/05/2013 Telephone [place] [address] Yashira Abdullahi MD [facility] [place] [address] Results Social History Tobacco Use Types Packs/Day Years Used Date Smoking Tobacco: Never Smokeless Tobacco: Never Sex and Gender Information Value Date Recorded Sex Assigned at Not on file Gender Identity Not on file Sexual Orientation Not on file documented as of this encounter Plan of Treatment Upcoming Encounters Date Type Department Care Team (Late st Contact Info) Description 03/13/2024 9:45 AM EDT Office Visit Dermatology at [place] [address] [place] [address] Emiliano Salinas MD [address] [facility] [address] [facility], BAKARI [place] [address] documented as of this encounter Visit Diagnoses Not on filedocumented in this encounter Care Teams Rn Telephone Triage Relationship Specialty Start Date End Date Chantell Sharma APRN PCP - General 07/09/13 05/09/16 documented as of this encounter
--- OUTSIDE RECORDS SUMMARY | 2024-02-15 13:18 | XMS_ITS | Encounter Summary ---
Author Organization [facility] [place] [address] Care Team Providers Care Conservation Of Resources Commissioner Name Role Phone Franca Charles MD Primary Care Provider [phone] Encounter Details Date Type Department Care Team (Late st Contact Info) Description 07/16/2010 8:00 PM EST Procedure [place] [address] Gelacio Blevins MD [facility] [place] [address] Social History Tobacco Use Types Packs/Day Years [...] 9:45 AM EDT Office Visit Dermatology at [place] [address] [place] [address] Emiliano Salinas MD [address], [place]AR[place] [address] documented as of this encounter Visit Diagnoses Not on filedocumented in this encounter Care Teams Conservation Of Resources Commissioner Relationship Specialty Start Date End Date Franca Charles MD [address] [place] [address] PCP - General 05/02/10 01/30/11 documented as of this encounter
--- OUTSIDE RECORDS SUMMARY | 2024-02-15 13:18 | XMS_ITS | Encounter Summary ---
Author Organization [facility] [place] [address] Care Team Providers Care Osteopathic Neurologist Name Role Phone Unavailable Primary Care Provider Unavailabl e Encounter Details Date Type Department Care Team (Late st Contact Info) Description 04/19/2010 3:15 PM EST Office Visit Dermatology [address] [place] [address] [address] [place] [address] Emiliano Salinas MD [address] [facility] [place] [address] Social History Tobacco Use Types Packs/Day Years [...] 9:45 AM EDT Office Visit Dermatology at [place] [address] [place] [address] Emiliano Salinas MD [address] [facility], [place] [address] documented as of this encounter Visit Diagnoses Not on filedocumented in this encounter
--- OUTSIDE RECORDS SUMMARY | 2024-02-15 13:18 | XMS_ITS | Patient Health Record ---
Author Organization [facility] Address [address] [place] [address] Care Team Providers Care Chief Nurse Anesthetist Name Role Phone Sukhjinder Stewart Unavailable JEFFREY [...] hrs Active Vitamin D (Cholecalciferol) 50 MCG (1999 UT) 1 capsule Orally Once a day for 30 day(s) Active traZODone HCl 50 MG 2 tabs HS Orally Onc e a day Active Fexofenadine HCl 180 MG 1 tablet Orally Once a day for 30 day(s) Active Amitriptyline HCl 50 MG 1 tablet at bedt niels Orally Once a day for 30 day(s) Not-Taking PROBLEMS Problem Type ICD Code Onset Dates Problem Status W/U Status Risk SNOMED Code Notes Problem Primary osteoarthritis of first carpometacarpal joint of right hand (M18.11) Active confirmed [id number] PLAN OF TREATMENT No Information Insurance Providers Payer Name Payer Address Payer Phone Subscriber Number Group Number Insured Name Patient Relationship to Insured Coverage Start Date Coverage End Date MEDICARE [address] [place], [place] [id number] SUNNY ESPARZA Self - patient is the insured -[facility] [address] [place] [address] SUNNY ESPARZA Self - patient is the insured SELF PAY AFTER [place] [address] [address] SUNNY ESPARZA Self - patient is the insured MEDICAL (GENERAL) HISTORY Medical History History ICD Code Biceps tendinitis, right Muscle cramps GERD Surgical History Surgery Date(Month/Year)
--- OUTSIDE RECORDS SUMMARY | 2024-02-15 13:18 | XMS_ITS | Encounter Summary ---
[place] [address] Care Team Providers Care Cloth Printing Inspector Name Role Phone Gareth Gramajo MD Primary Care Provider + Reason for Visit * Reason Onset Date Comments Follow-up 12/10/2011 Encounter Details Date Type Department Care Team (Late st Contact Info) Description 12/10/2011 Telephone Obstetrics [place] [phone] Line Patel, RN Follow-up Social History Tobacco Use Types Packs/Day Years Used Date Smoking Tobacco: Never Sex and Gender Information Value Date Recorded Sex Assigned at Not on file Gender Identity Not on file Sexual Orientation Not on file documented as of this encounter Miscellaneous Notes * Telephone Encounter - Lien Patel RN - 12/10/2011 5:27 PM EDT Bladder Diary completed and sent to for review. documented in this encounter Plan of Treatment Upcoming Encounters Date Type Department Care Team (Late st Contact Info) Description 03/13/2024 9:45 AM EDT Office Visit Dermatology at [address] [place] [address] Emiliano Salinas MD [address] [place] [address] RD, [place] [address] documented as of this encounter Visit Diagnoses Not on filedocumented in this encounter Care Teams Cloth Printing Inspector Relationship Specialty Start Date End Date Gareth Gramajo MD [address] [place] [address] PCP - General 04/24/11 07/08/13 documented as of this encounter
--- OUTSIDE RECORDS SUMMARY | 2024-02-15 13:18 | XMS_ITS | Encounter Summary ---
[place] [address] Care Team Providers Care Delivery Driver/Supervisor Name Role Phone Franca Charles MD Primary Care Provider [phone] Reason for Visit * Reason Comments Travel Consult Encounter Details Date Type Department Care Team (Late st Contact Info) Description 10/17/2010 2:00 PM EDT Office [place] [phone] Danika Chin RN Travel foreign (Primary Dx); Foreign travel Discharge Disposition: Home Social History Tobacco Use Types Packs/Day Years Used Date Smoking Tobacco: Never Assessed Sex and Gender Information Value Date Recorded Sex Assigned at Not on file Gender Identity Not on file Sexual Orientation Not on file documented as of this encounter Progress Notes * Danika Chin RN - 10/17/2010 2:55 PM EDT Adult Travel Clinic Reason for Visit: Yessenia Luong is a 60 y.o. patient who comes to travel clinic today for pre-travel evaluation, vaccination and traveler's health education. Trip Details: Destination countries (list from first to last): [place], [facility], [facility], [place] Departure date: 11/27/2010 Length of trip 3 wk Purpose of travel: educational Type of environment: both Accommodations:hotels Medical History: Medical problems: healthy Immunosuppression: none. [ ] yes [x] no History of adverse vaccine reactions: [ ] yes [x] no History of latex allergy: [ ] yes [x] no or : [ ] yes [x] no Patient advised to carry all medications in carry on luggage. Patient advised to carry epipen. Travel Health and Safety Issues: A discussion of travel health hazards and safety issues was done, including the following topics: traffic-accidents (alcohol, seatbelts), crime, sun exposure/heat illness, Schistosomiasis and other fresh water exposures, rabies, HIV infections, Hepatitis and other STD's, TB and Health Insurance c[employer]. Discussed food and water precautions and patient handout provided. The following strategies were recommended for the management of traveler's diarrhea according to severity: ?? For treatment of mild diarrhea: hydration and over the counter antidiarrheal recommended. ?? For treatment of diarrhea accompanied by fever or systemic illness: hydration and empiric treatment with antibiotic recommended. A prescription for Ciprofloxacin 500 mg twice daily x 3 days given to patient. ?? For severe or bloody diarrhea, or diarrhea accompanied by vomiting: patient advised to seek medical treatment. Vector-borne Disease Prevention Discussed insect bite prevention to reduce risk of malaria, dengue and other insect borne illnesses. Handout given. Malaria Risk: Malaria risk in country (ies) visited, but not high enough risk on this itinerary to warrant chemoprophylaxis. Altitude: This trip does not involve high altitude. Follow-up Recommendations: A recommendation was made that the patient have a tst placed about 3 months after returning from this trip. The patient may either call the travel clinic or get this done through their primary healthcare corporate account director. Patient advised to call travel clinic if they return from trip with any illness. Time spent in travel counselin min Vaccine information sheets given. Immunization History: Tetanus: Tdap 10/17/2010 Polio: vaccine: Primary series MMR: As child Hep A 2nd dose 6 mo. - one year Hep B: never Twinrix Influenza 03/19 Typhoid vi Typhoid oral 10/17/2010 Rabies Discussed actions to take if exposure occurs [facility]. Meningococcal Yellow Fever Pneumococcal 09/15/2004 PPD Skin test ID ATTENDING I agree with this plan to prepare this patient for travel to [place]. documented in this encounter Plan of Treatment Upcoming Encounters Date Type Department Care Team (Late st Contact Info) Description 03/13/2024 9:45 AM EDT Office Visit Dermatology at [place] [address] [place] [address] Emiliano Salinas MD [address], [place] [address] documented as of this encounter Visit Diagnoses Diagnosis Travel foreign- Primary Other specified conditions influencing health status Foreign travel Other specified conditions influencing health status documented in this encounter Care Teams Delivery Driver/Supervisor Relationship Specialty Start Date End Date Franca Charles MD [address] [place] [address] PCP - General 05/02/10 01/30/11 documented as of this encounter
--- OUTSIDE RECORDS SUMMARY | 2024-02-15 13:18 | XMS_ITS | Encounter Summary ---
Author Organization [facility] [place] [address] Care Team Providers Care Client Project Coordinator Name Role Phone Gareth Gramajo MD Primary Care Provider + Encounter Details Date Type Department Care Team (Late st Contact Info) Description 01/25/2012 Orders [place] [address] Satya James MD [address] [place] [address] Bilateral knee pain (Primary Dx) Social History Tobacco Use Types [...] 9:45 AM EDT Office Visit Dermatology at [place] [address] [place] [phone] Emiliano Salinas MD [address], [place] [address] documented as of this encounter Visit Diagnoses Diagnosis Bilateral knee pain- Primary Pain in joint, lower leg documented in this encounter Care Teams Client Project Coordinator Relationship Specialty Start Date End Date Gareth Gramajo MD [address] [place] [address] PCP - General 04/24/11 07/08/13 documented as of this encounter
--- OUTSIDE RECORDS SUMMARY | 2024-02-15 13:18 | XMS_ITS | Encounter Summary ---
Author Organization [facility] [place] [address] Care Team Providers Care Blow Off Worker Name Role Phone Gareth Gramajo MD Primary Care Provider + Reason for Visit * Reason Comments Skin Check Encounter Details Date Type Department Care Team (Late st Contact Info) Description 04/24/2011 8:45 AM EST Office Visit Dermatology [address] [place], [place] [id number] Emiliano Salinas MD [address], [place] [address] Androgenetic alopecia (Primary Dx); Rosacea; Solar lentigo Social History Tobacco Use Types Packs/Day Years Used Date Smoking Tobacco: Never Sex and Gender Information Value Date Recorded Sex Assigned at Not on file Gender Identity Not on file Sexual Orientation Not on file documented as of this encounter Progress Notes * Emiliano Salinas MD - 04/24/2011 9:16 AM EST Problems: 1. Skin checkup. 2. History of androgenetic alopecia. 3. History of Rosacea status post multiple laser treatments. 4. History of allergic contact dermatitis, status post patch testing with Dr. Pham 10/1998 with 3+ reaction to Thimerosal, 2+ reaction to paraphenylenediamine from hair dressing tray. Yessenia follows up for repeat check. I last saw her a year ago. She wants to know how her androgenetic alopecia is doing. She wants to know what the latest treatments for that are. She wants to know what can be done to treat it. She is not using anything for her Rosacea. She would like refills of the Tretinoin Cream. She stopped using Rogaine just getting out of the habit of using it. Physical examination today reveals a pleasant 61-year-old woman who has a very nice healthy complexion with minimal to no Rosacea today. She has relatively minimal photo aging only faint very minimal lentigos present on the lateral cheeks. She has no significant facial creasing or wrinkling. Examination of the head, neck, chest, back, hands, arms, forearms, thighs and calves reveals some very faint early solar lentigos on the dorsal forearms and hands. She continues to have a 4mm part of the parietal scalp and 2mm of the occipital scalp consistent with her stable androgenetic alopecia. Assessment & Plan: Androgenetic alopecia, stable. a. Recommended that we again resume the Rogaine 5% Solution as this is the only FDA approved treatment for female androgenetic alopecia at this time. b. The patient has heard of other oral therapies coming down the pipeline and we discussed that these are not yet FDA approved for Women. c. The patient today was again given the information for Aide Hassan at [facility] in [place] to help Yessenia learn of new techniques to mask her hair thinning. Mild solar lentigos, mild photo aging. a. At patient request she was given refills for Tretinoin 0.025% Cream applying this on a q. h.s. basis one-half hour after washing, 45gm dispensed with p.r.n. refills. This was called into [facility] in [facility]. Benign skin examination. a. Patient reassured about benign skin examination. b. RTC p.r.n. Rosacea. a. Quiescent. documented in this encounter Plan of Treatment Upcoming Encounters Date Type Department Care Team (Late st Contact Info) Description 03/13/2024 9:45 AM EDT Office Visit Dermatology at [place] [address] [place] [address] Emiliano Salinas MD [address], [place] [address] documented as of this encounter Visit Diagnoses Diagnosis Androgenetic alopecia- Primary Other alopecia Rosacea Solar lentigo Other dyschromia documented in this encounter Care Teams Blow Off Worker Relationship Specialty Start Date End Date Gareth Gramajo MD [address] [place] [address] PCP - General 04/24/11 07/08/13 documented as of this encounter
--- OUTSIDE RECORDS SUMMARY | 2024-02-15 13:18 | XMS_ITS | Encounter Summary ---
[place] [address] Care Team Providers Care Control Room Tender Name Role Phone Gareth Gramajo MD Primary Care Provider + Reason for Visit * Reason Onset Date Comments Follow-up 01/25/2012 Encounter Details Date Type Department Care Team ([facility] Contact Info) Description 01/25/2012 Telephone Obstetrics [place] [phone] Lien Patel, RN Follow-up Social History Tobacco Use Types Packs/Day Years Used Date Smoking Tobacco: Never Smokeless Tobacco: Never Sex and Gender Information Value Date Recorded Sex Assigned at Not on file Gender Identity Not on file Sexual Orientation Not on file documented as of this encounter Miscellaneous Notes * Telephone Encounter - Lien Patel RN - 01/25/2012 9:31 AM EDT TELEPHONE NOTE Caller: Vibha Patel RN Reason for call: Insurance company would not approve Oxytrol patch, pt will have to try Oxybutynin 5 mg first. Message left for pt. Plan/Instructions: Script called in. documented in this encounter Plan of Treatment Upcoming Encounters Date Type Department Care Team (Late Contact Info) Description 03/13/2024 9:45 AM EDT Office Visit Dermatology at [place] [address] [place] [address] Emiliano Salinas MD [address], [place] [address] documented as of this encounter Visit Diagnoses Not on filedocumented in this encounter Care Teams Control Room Tender Relationship Specialty Start Date End Date Gareth Gramajo MD [address] [place] [address] PCP - General 04/24/11 07/08/13 documented as of this encounter
--- OUTSIDE RECORDS SUMMARY | 2024-02-15 13:18 | XMS_ITS | Encounter Summary ---
Author Organization [facility] [place] [address] Care Team Providers Care Percussion Instrument Repairer Name Role Phone Franca Charles MD Primary Care Provider [phone] Encounter Details Date Type Department Care Team (Late st Contact Info) Description 07/10/2010 8:30 AM EST Follow-Up [place] [address] Leisa Lewis MD [address] [place] [address] Social History Tobacco Use Types Packs/Day Years [...] 9:45 AM EDT Office Visit Dermatology at [place] [address] [place] [phone] Emiliano Salinas MD [address], BAKARI [place] [address] documented as of this encounter Visit Diagnoses Not on filedocumented in this encounter Care Teams Percussion Instrument Repairer Relationship Specialty Start Date End Date Franca Charles MD [address] [place] [address] PCP - General 05/02/10 01/30/11 documented as of this encounter
--- OUTSIDE RECORDS SUMMARY | 2024-02-15 13:18 | XMS_ITS | Encounter Summary ---
[place] [address] Care Team Providers Care Child Life Specialist Name Role Phone Gareth Gramajo MD Primary Care Provider + Encounter Details Date Type Department Care Team (Late st Contact Info) Description 01/10/2012 Orders Only Obstetrics [place] [phone] Lien Patel, RN Social History Tobacco Use Types Packs/Day [...] AM EDT Office Visit Dermatology at [place] [address] [place] [phone] Emiliano Salinas MD [address], [place]IND[place] [address] documented as of this encounter Visit Diagnoses Not on filedocumented in this encounter Care Teams Child Life Specialist Relationship Specialty Start Date End Date Gareth Gramajo MD [address] [place] [address] PCP - General 04/24/11 07/08/13 documented as of this encounter
--- OUTSIDE RECORDS SUMMARY | 2024-02-15 13:18 | XMS_ITS | Encounter Summary ---
Author Organization [facility] [place] [address] Care Team Providers Care Junior Brand Manager Name Role Phone SharmaChantell APRN Primary Care Provider [phone] Reason for Visit * Reason Comments Skin Check Encounter Details Date Type Department Care Team (Late st Contact Info) Description 07/30/2014 9:30 AM EST Office Visit Dermatology at [address] [place] [address] Emiliano Salinas MD [address] [facility], BAKARI A DERMATOLOGY [place], [place] [id number] Androgenetic alopecia; Solar lentigo Discharge Disposition: Home Social History Tobacco Use Types Packs/Day Years Used Date Smoking Tobacco: Never Smokeless Tobacco: Never Sex and Gender Information Value Date Recorded Sex Assigned at Not on file Gender Identity Not on file Sexual Orientation Not on file documented as of this encounter Patient Instructions * Patient Instructions* Destini Mariano LPN - 07/30/2014 9:31 AM EST Images from the original note were not included. [facility] Hair Loss From Alopecia Areata: After Your Visit Your Care Instructions Alopecia areata is a type of hair loss. This condition is most common in people who are younger than 20, but it can happen to children and adults of any age. Hair loss can affect how you feel about yourself. Your hair may fall out in clumps and grow back over time. In rare cases, a person with alopecia maylose all body hair. The pattern of hair loss and growth is different for everyone. You can treat alopecia with medicine, but treatment does not always work. You may have shots of medicine in your scalp, take pills, or put the medicine on your scalp. Or you may decide to wait and see whether your hair grows again before trying medicine. Because hair loss is upsetting for most people, seek support from family and friends. Talk to a counselor or other professional if you need more help. Follow-up care is a albright part of your treatment and safety. Be sure to make and go to all appointments, and call your doctor if you are having problems. It???s also a good idea to know your test results and keep a list of the medicines you take. How can you care for yourself at home? ?? If you decide to treat your hair loss, take your medicines exactly as prescribed. Call your doctor if you think you are having a problem with your medicine. ?? Try hair care products and styling techniques. Hair care products or perms may make hair appear thicker. You can use dyes to color the scalp. But long-term use of perms or dyes may lead to more hair loss. ?? Talk to your doctor if you are very upset about your hair loss. You can get counseling to help you cope with the condition. When should you call for help? Watch closely for changes in your health, and be sure to contact your doctor if: ?? Your hair loss gets worse, even with treatment. ?? You want more information about treating your hair loss. ?? You feel sad or need help coping with hair loss. Where can you learn more? Visit our health information library at http://[employer]Kit/[employer] You can also view health information on [employer]os, your personal patient account. Log in or sign up today. Enter Y465 in the search box to learn more about Hair Loss From Alopecia Areata: After Your Visit. ?? 2192-4561 [employer]. Care instructions adapted under license by [facility]. This care instruction is for use with your licensed healthcare professional. If you have questions about a medical condition or this instruction, always ask your healthcare professional. [employer] disclaims any warranty or liability for your use of this information. Content Version: 10.3.939223; Current as of: August 19, 2013 [facility] Hair Loss From Alopecia Areata: After Your Visit Your Care Instructions Alopecia areata is a type of hair loss. This condition is most common in people who are younger than 20, but it can happen to children and adults of any age. Hair loss can affect how you feel about yourself. Your hair may fall out in clumps and grow back over time. In rare cases, a person with alopecia maylose all body hair. The pattern of hair loss and growth is different for everyone. You can treat alopecia with medicine, but treatment does not always work. You may have shots of medicine in your scalp, take pills, or put the medicine on your scalp. Or you may decide to wait and see whether your hair grows again before trying medicine. Because hair loss is upsetting for most people, seek support from family and friends. Talk to a counselor or other professional if you need more help. Follow-up care is a albright part of your treatment and safety. Be sure to make and go to all appointments, and call your doctor if you are having problems. It???s also a good idea to know your test results and keep a list of the medicines you take. How can you care for yourself at home? ?? If you decide to treat your hair loss, take your medicines exactly as prescribed. Call your doctor if you think you are having a problem with your medicine. ?? Try hair care products and styling techniques. Hair care products or perms may make hair appear thicker. You can use dyes to color the scalp. But long-term use of perms or dyes may lead to more hair loss. ?? Talk to your doctor if you are very upset about your hair loss. You can get counseling to help you cope with the condition. When should you call for help? Watch closely for changes in your health, and be sure to contact your doctor if: ?? Your hair loss gets worse, even with treatment. ?? You want more information about treating your hair loss. ?? You feel sad or need help coping with hair loss. Where can you learn more? Visit our health information library at http://ApplyKit/[employer] You can also view health information on [employer]os, your personal patient account. Log in or sign up today. Enter Y465 in the search box to learn more about Hair Loss From Alopecia Areata: After Your Visit. ?? [id number] [employer]. Care instructions adapted under license by [facility]. This care instruction is for use with your licensed healthcare professional. If you have questions about a medical condition or this instruction, always ask your healthcare professional. [employer] disclaims any warranty or liability for your use of this information. Content Version: 10.3.558508; Current as of: August 19, 2013 documented in this encounter Progress Notes * Emiliano Salinas MD - 07/30/2014 9:55 AM EST Problems: 1. Yearly skin checkup. 2. History of androgenic alopecia. 3. History of rosacea status post multiple laser treatments. 4. History of allergic chronic dermatitis, status post patch testing with Dr. 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 Yessenia follows up for a yearly check. She would like a skin check and also evaluation of her alopecia. Physical examination reveals a pleasant, 64-year-old woman who is very fair skinned and blue eyed and has a few small telangiectasias on the cheeks bilaterally. Examination of the head and neck, chest, back, hands, arms, forearms, thighs, and calves is otherwise benign. She has a 5-mm part over the parietal scalp and a 2-mm part of the occipital scalp, slightly worsened from her last visit. Hair pull is negative. Examination of the scalp is benign without erythema or scaling. She does have a number of solar lentigos present on the dorsal hands and forearms, and a few developing on the peripheral face. Assessment and Plan: 1. Androgenic alopecia. a. Slight worsening. b. The patient reminds me that she has used Rogaine in the past and is considering doing that again. c. The patient was given information about the [facility] in [place] and I recommended considering a consultation visit there. 2. Solar lentigos, facial. a. The patient requested and was given facial treatment. I recommended tretinoin 0.025% cream to apply on a nightly basis. She may use it every other night if too drying; 20 grams dispensed with five refills. Apply half an hour after washing. b. The patient knows this will be an [id number] expense, not covered by insurance. This will be called in to her [facility] in [facility]. c. Return to clinic in another year for repeat check. Note: Half an hour was spent with the patient, more than half spent in counseling. documented in this encounter Plan of Treatment Upcoming Encounters Date Type Department Care Team (Late st Contact Info) Description 03/13/2024 9:45 AM EDT Office Visit Dermatology at [place] [address] [facility] [place] [address] Emiliano Salinas MD [address] [facility] [facility], [place]AR[place] [address] documented as of this encounter Visit Diagnoses Diagnosis Androgenetic alopecia Other alopecia Solar lentigo Other dyschromia documented in this encounter Care Teams Junior Brand Manager Relationship Specialty Start Date End Date Chantell Sharma APRN PCP - General 07/09/13 05/09/16 documented as of this encounter
--- OUTSIDE RECORDS SUMMARY | 2024-02-15 13:18 | XMS_ITS | Encounter Summary ---
Author Organization [facility] [place] [address] Care Team Providers Care Java Programmer Analyst Name Role Phone Franca Charles MD Primary Care Provider [phone] Encounter Details Date Type Department Care Team (Late st Contact Info) Description 06/29/2010 12:40 PM EST Office [place] [address] Liam Lee MD [facility] [place] [address] Social History Tobacco Use Types Packs/Day Years [...] 9:45 AM EDT Office Visit Dermatology at [place] [address] [place] [phone] Emiliano Salinas MD [address], [place]IND[place] [address] documented as of this encounter Visit Diagnoses Not on filedocumented in this encounter Care Teams Java Programmer Analyst Relationship Specialty Start Date End Date Franca Charles MD [address] [place] [address] PCP - General 05/02/10 01/30/11 documented as of this encounter
--- OUTSIDE RECORDS SUMMARY | 2024-02-15 13:18 | XMS_ITS | Encounter Summary ---
Author Organization [facility] [place] [address] Care Team Providers Care Green Building Materials Distributor Name Role Phone Franca Charles MD Primary Care Provider [phone] Encounter Details Date Type Department Care Team (Late st Contact Info) Description 07/17/2010 8:30 AM EST Follow-[place] [address] Gelacio Blevins MD [facility] [place] [address] Social History Tobacco Use Types Packs/Day Years [...] 9:45 AM EDT Office Visit Dermatology at [place] [address] [place] [phone] Emiliano Salinas MD [address], [place]AR[place] [address] documented as of this encounter Visit Diagnoses Not on filedocumented in this encounter Care Teams Green Building Materials Distributor Relationship Specialty Start Date End Date Franca Charles MD [address] [place] [address] PCP - General 05/02/10 01/30/11 documented as of this encounter
--- OUTSIDE RECORDS SUMMARY | 2024-02-15 13:18 | XMS_ITS | Encounter Summary ---
Author Organization [facility] [place] [address] Care Team Providers Care Truck Striker Name Role Phone Chantell Sharma APRN Primary Care Provider [phone] Reason for Visit * Reason Comments Allergic Rhinitis Encounter Details Date Type Department Care Team (Late st Contact Info) Description 07/09/2013 1:45 PM EST [place] [address] Yashira Abdullahi MD [facility] [address] ALLERGY [place] [address] Allergic rhinoconjunctivitis, bilateral (Primary Dx); Mild intermittent asthma, uncomplicated; Environmental allergies; Allergy to insect stings; Chronic urticaria Discharge Disposition: Home Social History Tobacco Use Types Packs/Day Years Used Date Smoking Tobacco: Never Smokeless Tobacco: Never Sex and Gender Information Value Date Recorded Sex Assigned at Not on file Gender Identity Not on file Sexual Orientation Not on file documented as of this encounter Last Filed Vital Signs Vital Sign Reading Time Taken Comments Blood Pressure 138/72 07/09/2013 2:10 PM EST Pulse 87 07/09/2013 2:10 PM EST Temperature - - Respiratory Rate 14 07/09/2013 2:10 PM EST Oxygen Saturation - - Inhaled Oxygen Concentration - - Weight 84.1 kg (185 lb 8 oz) 07/09/2013 2:10 PM EST Height 160.9 cm (5' 3.35) 07/09/2013 2:10 PM ES T Body Mass Index 32.5 07/09/2013 2:10 PM EST documented in this encounter Patient Instructions * Patient Instructions* Yashira Abdullahi MD - 07/09/2013 3:08 PM EST ALLERGY SEASONS & AVOIDANCE: Dust mites: Year-round, especially Fall 1. Dust mite encasings, pillow and mattress ( ie From [employer]; [employer], [employer], [employer], [employer], [employer]) 2. Wash bedding in hot water (no hotter than 120 degrees F) weekly 3. Humidity control, 30-50% 4. Minimize carpet and stuffed animal exposure Animals: Year-round 1. Minimize animal allergen exposure 2. Removal or -- regular baths/wiping of animal once per week -- exclusion from the bedroom -- HEPA filter in bedroom and living area -- Consider allergen pillow and mattress casings. Molds: Year-round, especially Fall 1. Remove obvious mold 2. Minimize moisture / leaks 3. Humidity control, 30-50% Pollens: Grass: Late Spring; Trees: Early Spring; Weeds: Mid Summer; Ragweed: Late Summer 1. Nightly hair washing during pollen seasons 2. Keep windows closed, consider window a/c unit with filter 3. Do not place fans in windows 4. Do not dry clothes outside. Please contact the allergy clinic to schedule insect sting venom skin tests, if Dr. Estevez does not perform them. Please obtain new prescription for EpiPen from Dr. Estevez and bring to your [place] trip. documented in this encounter Progress Notes * Yashira Abdullahi MD - 07/09/2013 2:27 PM EST Chief Complaint Patient presents with ??? Allergic Rhinitis HPI The patient is a pleasant 63 y.o. year old female whose consultation was self- referred. The reasonfor consultation is evaluation and management of allergies, urticaria and insect sting allergy. Patient Active Problem List Diagnosis ??? Urinary incontinence, urge ??? Osteoarthritis ??? Hypercholesteremia ??? THERESA (obstructive sleep apnea) ??? Androgenetic alopecia Overview Note: ??? Rosacea She has a history of chronic allergies. This fall her allergies were particularly worse. She has multiple allergies to pollens, dander and molds. She is currently on allergy shots weekly at Dr. Jere Estevez's office in [facility]. She receives two shots per week. She started the shots in the fall 2012. She is on Glory 180mg daily. She stopped Singulair and Nasonex. Her allergy symptoms best respond to prednisone. She no longer has a woodstove. She washes her linens weekly. She has a history of chronic urticaria. She has a history autoimmune progesterone dermatitis. She has history of hysterectomy in her 40s with improvement in the dermatitis. She has had mild urticaria now. She has a history of allergy induced asthma. She takes albuterol. Sxs: chest heaviness and difficulty breathing. No nighttime awakenings. No ER visits or hospitalizations for asthma. Bee sting reaction About twenty years ago, she was stung by an insect and had anaphylactic reaction. Symptoms include facial swelling and difficulty breathing. She received epinephrine. She had testing at that time that was positive to bees. She has never been on VIT. She carries an EpiPen with her at all times. Review of Systems (Recent problems if checked, all others negative): Review of Systems Constitution: Positive for malaise/fatigue. HENT: Postnasal drip Ear pain Eyes: Itchy eyes Respiratory: Positive for shortness of breath and snoring. All other systems reviewed and are negative. Allergies, medications, past medical/ surgical history were reviewed and updated in eDH. Allergies: Bee pollen; Morphine; Sulfa (sulfonamide antibiotics); and Voltaren Medications: Outpatient Prescriptions Marked as Taking for the 07/09/13 encounter (Office Visit) with Yashira Abdullahi MD Medication Sig Dispense Refill ??? ASCORBATE CALCIUM (VITAMIN C ORAL) Take by mouth. ??? ERGOCALCIFEROL, VITAMIN D2, (VITAMIN D ORAL) Take by mouth. ??? vilazodone (VIIBRYD) 10 mg Tab Take by mouth. ??? traZODone (DESYREL) 100 mg tablet Take 100 mg by mouth nightly. ??? multivitamin (THERAGRAN) tablet Take 1 tablet by mouth daily. ??? fexofenadine (GLORY) 180 mg tablet 180 mg, PO, Once daily ??? DOCOSAHEXANOIC ACID/EPA (FISH OIL ORAL) ??? CALCIUM/MAGNESIUM (CALCIUM AND MAGNESIUM ORAL) ??? Mometasone (NASONEX) 50 mcg/Actuation Kirkman 2 Midway(s) each nostril, Nasal, Twice daily ??? albuterol (VENTOLIN HFA) 90 mcg/Actuation inhaler 1-2 puffs, Inh, Q4-6H PRN Past Medical and Social History: Past Medical History Diagnosis Date ??? 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 Rosacea 04/24/2011 ??? THERESA (obstructive sleep apnea) 11/21/2011 ??? Urinary incontinence, urge 01/08/2012 Past Surgical History Procedure Date ??? Vaginal prolapse repair 04/11/2007 Dr. Castaneda, at [facility] ??? section 1979, 1981 ??? Miguel and bso 1988 Allergy to progesterone ??? Tonsillectomy ??? Appendectomy Family history: Family History Problem Relation Age of Onset ??? High Cholesterol Mother ??? High Cholesterol Father ??? Diabetes Maternal Grandfather ??? Heart Disease Father stent ??? Breast Cancer Sister 62 Social history: History Social History ??? Marital Status: Spouse Name: N/A Number of Children: N/A ??? Years of Education: N/A Social History Main Topics ??? Smoking status: Never Smoker ??? Smokeless tobacco: Never Used ??? Alcohol Use: None ??? Drug Use: None ??? Sexually Active: None Other Topics Concern ??? 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 Normal Except General: - No apparent distress Eyes: - Conjunctivae without injection; - No eyelid swelling ENT: - No erythema of the tympanic membranes - Normal external ear canals - Nl nasal mucosa, septum, and turbinates; - Oropharynx well hydrated without lesions or exudates; - Face & sinuses non-tender to palpation/percussion Neck: - Symmetrical, no masses, trachea midline; Resp: - Unlabored breathing with symmetrical and equal bilateral expansion; - CTA w/o wheezes, rales, or rhonchi; CV: - Regular rate and rhythm - No pedal swelling GI: - Abdomen soft - Bowel sounds present - No hepatosplenomegaly Lymph: - No significant cervical, supraclavicular or infraclavicular lymphadenopathy Musculoskeletal: - Nl gait and station Extremities: - No clubbing, cyanosis, or edema Skin: - No rashes Neuro: - Nl gait and station Psych: - Nl and age appropriate mood and affect - Judgement and insight intact TESTS/PROCEDURES IMPRESSION/REPORT/PLAN #1Allergic rhinoconjuncitivitis - Environmental allergies identified on previous skin tests. - Use nettipot daily - Continue glory daily - Start Nasonex at the beginning of August. Start Singulair 10mg daily if symptoms not well controlled on Glory and Nasonex. Rxs to be provided by local providers per patient request. - Take benadryl 25mg nightly - Talk to PCP about stopping trazodone while on Benadryl #2 Intermittent asthma - Take albuterol 2 puffs 30 minutes before exercise or outdoor activities during the spring, summerand fall. Continue 2 puffs every 4 hours as needed for asthma symptoms. - Spacer provided to use with inhaler #3 Insect sting allergy - History of systemic reaction - Discussed insect sting allergy including the indications, risks, benefits and alternatives to venom immunotherapy. Patient will like to think about VIT. - Will check labs for IgE to insects. - Always have EpiPen available. Patient to request refill by Dr. Estevez. - Will check serum tryptase level to evaluate for underlying mast cell disorder #4 Environmental allergies - Clean filters in a/c - Reviewed environmental control and avoidance measures #5 Chronic urticaria - Stable - Continue OTC antihistamine prn hives Orders Placed This Encounter Procedures ??? Venom, Honeybee IgE ??? Venom, Wasp IgE ??? Venom, White Faced Hornet IgE ??? Venom, Hornet, Yellow-Faced IgE ??? Venom, Yellow Jacket IgE ??? Tryptase Orders Placed This Encounter Medications ??? ASCORBATE CALCIUM (VITAMIN C ORAL) Sig: Take by mouth. ??? ERGOCALCIFEROL, VITAMIN D2, (VITAMIN D ORAL) Sig: Take by mouth. ??? vilazodone (VIIBRYD) 10 mg Tab Sig: Take by mouth. RTC as needed for management of above issues. Ongoing follow-up with the patient's primary care provider is recommended and encouraged. eDH record was reviewed. Written instructions were reviewed and provided to the patient. No learning barriers were identified. The risks, benefits, alternatives and indications for the useof mediations prescribed or recommended during today's visit were reviewed with the patient. The patient understood and agreed with what was discussed. All questions were answered. Time:2:25pm- 3:28pm. Total time: 63 minutes. 45 minutes of this visit was spent discussing management and diagnostic workup of her multiple allergic issues. The details are outlined above. Reviewed previous allergic workup by Dr. Trujillo with patient. documented in this encounter Plan of Treatment Upcoming Encounters Date Type Department Care Team (Late st Contact Info) Description 03/13/2024 9:45 AM EDT Office Visit Dermatology at [place] [address] [place] [address] Emiliano Salinas MD [address], [place] [address] documented as of this encounter Procedures Procedure Name Priority Date/Time Associated Diagnosis Comments VENOM, WASP IGE Routine 07/09/2013 3:40 PM EST Allergy to insect stings TRYPTASE Routine 07/09/2013 3:40 PM EST Allergy to insect stings VENOM, HONEYBEE IGE Routine 07/09/2013 3 :40 PM EST Allergy to insect stings VENOM, HORNET, YELLOW-FACED IGE Routine 07/09/2013 3:40 PM EST Allergy to insect stings VENOM, YELLOW JACKET IGE Routine 07/09/2013 3:40 PM EST Allergy to insect stings VENOM, WHITE FACED HORNET IGE Routine 07/09/2013 3:40 PM EST Allergy to insect stings documented in this encounter Results * Tryptase (07/09/2013 3:40 PM EST) Tryptase 4.6 <11.5 ng/mL CERNER MILLENNIUM Comment: Test Performed by: [place] [address] Station Cashier: Bruce Abdalla III, M.D. Blood specimen (specimen) 07/09/2013 3:40 PM EST 07/10/2013 9:44 AM EST Narrative Resulting Agency Comment Spec In Lab Yashira Abdullahi MD CHEMISTRY ORDERABLES Performing Organization Address [facility] Co de Phone Number [facility] * Venom, Yellow Jacket IgE (07/09/2013 3:40 PM EST) Yellow Jacket IgE 22.8 kU/L CE RNER MILLENNIUM Comment: Class 4 (Strongly Positive 17.5-49.9) Test Performed by: [place] [address] Station Cashier: Bruce Abdalla III, M.D. Blood specimen (specimen) 07/09/2013 3:40 PM EST 07/10/2013 8:40 AM EST Narrative Resulting Agency Comment Spec In Lab Yashira Abdullahi MD IMMUNOLOGY ORDERABLE S Performing Organization Address City/[facility]/ZIP Co de Phone Number [facility] * Venom, Hornet, Yellow-Faced IgE (07/09/2013 3:40 PM EST) Meriwether Hornet Venom IgE 6.10 kU/L CERNER MILLENNIUM Comment: Class 3 (Positive 3.50-17.4) Test Performed by: [place] [address] Station Cashier: Bruce Abdalla III, M.D. Blood specimen (specimen) 07/09/2013 3:40 PM EST 07/10/2013 8:40 AM EST Narrative Resulting Agency Comment Spec In Lab Yashira Abdullahi MD IMMUNOLOGY ORDERABLE S Performing Organization Address City/[facility] Co de Phone Number [facility] * Venom, White Faced Hornet IgE (07/09/2013 3:40 PM EST) Wht Hornet Venom IgE 11.0 kU/L CERNER MILLENNIUM Comment: Class 3 (Positive 3.50-17.4) Test Performed by: [place] [address] Station Cashier: Bruce Abdalla III, M.D. Blood specimen (specimen) 07/09/2013 3:40 PM EST 07/10/2013 8:40 AM EST Narrative Resulting Agency Comment Spec In Lab Yashira Abdullahi MD IMMUNOLOGY ORDERABLE S Performing Organization Address [facility] de Phone Number [facility] MILLENNI[facility] * Venom, Wasp IgE (07/09/2013 3:40 PM EST) Wasp IgE 22.5 kU/L CERNER MILLENNIUM Comment: Class 4 (Strongly Positive 17.5-49.9) Test Performed by: [place] [address] Station Cashier: Bruce Abdalla III, M.D. Blood specimen (specimen) 07/09/2013 3:40 PM EST 07/10/2013 8:40 AM EST Narrative Resulting Agency Comment Spec In Lab Yashira Abdullahi MD IMMUNOLOGY ORDERABLE S Performing Organization Address City/[facility] de Phone Number [facility] MILLENNI[facility] * Venom, Honeybee IgE (07/09/2013 3:40 PM EST) Honeybee Venom IgE 1.31 kU/L CERNER MILLENNIUM Comment: Class 2 (Positive 0.70-3.49) Test Performed by: [place] [address] Station Cashier: Bruce Abdalla III, M.D. Blood specimen (specimen) 07/09/2013 3:40 PM EST 07/10/2013 8:40 AM EST Narrative Resulting Agency Comment Spec In Lab Yashira Abdullahi MD IMMUNOLOGY ORDERABLE S Performing Organization Address City/State/[facility] Co de Phone Number [facility] documented in this encounter Visit Diagnoses Diagnosis Allergic rhinoconjunctivitis, bilateral- Primary Mild intermittent asthma, uncomplicated Unspecified asthma Environmental allergies Allergic rhinitis, cause unspecified Allergy to insect stings Allergy, unspecified not elsewhere classified Chronic urticaria Other specified urticaria documented in this encounter Care Teams Truck Striker Relationship Specialty Start Date End Date Chantell Sharma APRN PCP - General 07/09/13 05/09/16 documented as of this encounter
--- OUTSIDE RECORDS SUMMARY | 2024-02-15 13:18 | XMS_ITS | Encounter Summary ---
Author Organization [facility] [place] [address] Care Team Providers Care Manager Deli Name Role Phone Gareth Gramajo MD Primary Care Provider + Encounter Details Date Type Department Care Team (Late st Contact Info) Description 12/10/2011 Notes Only Obstetrics [place] [phone] Lien Patel RN Social History Tobacco Use Types Packs/Day Years Used Date Smoking Tobacco: Never Sex and Gender Information Value Date Recorded Sex Assigned at Not on file Gender Identity Not on file Sexual Orientation Not on file documented as of this encounter Progress Notes * Lien Patel, RN - 12/10/2011 5:39 PM EDT Review of Bladder Diary Dates diary completed: 11/22/11 , 12/06/11, 12/07/11 Volume intake:1537cc- 1626cc Volume output:2218cc-[id number] Number of daytime voids: 9-13 Number of nocturia events: 1-5 Functional bladder capacity: 768cc Nocturia Index: Number of leakage events per day: 4 small with urge walking to BR, housework and standing. Pt states she leaks more when at work and out and about. When home pt can make it to the BR. Other notable findings (e.g. caffeine consumption, etc.) 177cc - 473cc of coffee Pt did take the Pyridium and noted orange urine on her pad and dark yellow at times. Impression: Unclear symptoms Plan: Pt will do UDS per . Definitions: Nocturia index = nocturnal urine volume/functional bladder capacity; >2 identifies low nocturnalbladder capacity Polyuria = >40cc/kg body weight Nocturnal polyuria = nocturnal volume > 6.4cc/kg OR >35% of total 24 hr output volume LIEN PATEL, RN Division of Female Pelvic Medicine & Reconstructive Surgery documented in this encounter Plan of Treatment Upcoming Encounters Date Type Department Care Team (Late st Contact Info) Description 03/13/2024 9:45 AM EDT Office Visit Dermatology at [place] [address] [place] [address] Emiliano Salinas MD [address], [place] [address] documented as of this encounter Visit Diagnoses Not on filedocumented in this encounter Care Teams Manager Deli Relationship Specialty Start Date End Date Gareth Gramajo MD [address] [place] [address] PCP - General 04/24/11 07/08/13 documented as of this encounter
--- OUTSIDE RECORDS SUMMARY | 2024-02-15 13:18 | XMS_ITS | Encounter Summary ---
Author Organization [facility]ly [facility] [place] [address] Care Team Providers Care Can Machine Operator Name Role Phone Franca Charles MD Primary Care Provider [phone] Reason for Visit * Reason Comments Obstructive Sleep Apnea Encounter Details Date Type Department Care Team (Late st Contact Info) Description 10/17/2010 3:05 PM EDT Office Visit Sleep Medicine [place] [id number] Gaby Guerrero [place] [address] THERESA (obstructive sleep apnea) (Primary Dx) Social History Tobacco Use Types Packs/Day Years Used Date Smoking Tobacco: Never Assessed Sex and Gender Information Value Date Recorded Sex Assigned at Not on file Gender Identity Not on file Sexual Orientation Not on file documented as of this encounter Progress Notes * Vin Lopez MD - 10/18/2010 4:36 PM EDT I evaluated this Ms. Yessenia Luong with Dr. Guerrero and performed albright aspects of the history andexamination. I actively participated in the formulation of the management strategy. I have reviewedDr. Guerrero's note and agree with the assessment and recommendations. VIN LOPEZ MD * Gaby Guerrero MD - 10/17/2010 5:21 PM EDT Sleep Medicine Follow-Up Note HPI: Ms. Yessenia Luong is a 60 y.o. female seen for follow-up for obstructive sleep apnea. The patient was originally diagnosed with THERESA in June 2010 with an AHI of 21. The patient was last evaluated by Dr. Lee on 06/29/2010. She had a CPAP titration performed in July 2010 and was started on CPAP at a fixed pressure of 11. The patient recently had her trazadone d/c'd by Dr. Lee due to decreased efficicacy in aiding sleep. She was prescirbed amitriptylene and was told to decreaseher Lexapro to 5mg daily. Interim History: Since starting CPAP she feels that her sleep is more restorative and she is less sleepy during the day. She has concerns that the amitriptylene is causing side effects, mainly a dry mouth. She is having a very dry mouth in the morning. She also endorses dry eyes, constipation, and i ncreased forgetfulness, and feeling groggy in the morning. The grogginess is more likely to occur is the higher amitriptylene dosing. Compliance Card Data Date Range: 08/09/10-10/16/10 Pressure: 11 AHI: 3.7 Average Leak: 26-36L/min % usage >= 4 hours: 83% Past Medical History: Depression THERESA moderate Medications: See list ROS: The patient reports that weight has been stable Cardiovascular: denies chest pain Pulm: denies SOB in clinic today Neuro: denies headache Psych: She feels emotional and feels blue often now PE: General: The patient is alert awake and oriented ENT: There is nuchal obesity Heart: no pretibial edema appreciated Lung: non-labored breathing Musc: normal gait. Normal arm swing, narrow base and a normal stride Assessment: Ms. Yessenia Luong presents for followup for obstructive sleep apnea. At this time thepatient reports subjective improvements in daytime symptoms and sleep scientologist since starting CPAP. The smart card data reveals that the THERESA is well treated. I suspect that the the amitriptyline is causing the majority of her side effects. I have asked to decrease the dose to 25mg at night for two weeks. She is then to call me to see if symptoms have improved. If she continues to have sleep maintenance difficulties or side effects, I would like to taper off this medication altogether and trylow dose Ambien. She is to increase her dose of Lexapro back to 10mg. I would like her to begin waking up at the same time every night. Diagnostic Codes: 1) THERESA 327.23 2) sleep maintenance insomnia Recommendations: 1) Continue CPAP at a pressure of 11. 2) Continue current mask. 3) Go to bed at same time 4) Increase Lexapro back to 10mg 5) Decrease Amitriptyline to 25mg QHS, she is to call me in 2 weeks. 3) Driving safety was reviewed with the patient today. Specifically the patient was instructed to not drive while sleepy. Disposition: The patient is to follow-up in the [facility] in 4 months. This case was supervised by Dr. Lopez who participated in the formulation and decision-making. The duration of this visit was approximately 30 minutes. documented in this encounter Plan of Treatment Upcoming Encounters Date Type Department Care Team (Late st Contact Info) Description 03/13/2024 9:45 AM EDT Office Visit Dermatology at [place] [address] [place] [address] Emiliano Salinas MD [address] [facility], [place] [address] documented as of this encounter Visit Diagnoses Diagnosis THERESA (obstructive sleep apnea)- Primary Obstructive sleep apnea (adult) (pediatric) documented in this encounter Care Teams Can Machine Operator Relationship Specialty Start Date End Date Franca Charles MD [address] [place] [address] PCP - General 05/02/10 01/30/11 documented as of this encounter
--- OUTSIDE RECORDS SUMMARY | 2024-02-15 13:18 | XMS_ITS | Encounter Summary ---
Author Organization [facility] [place] [address] Care Team Providers Care Shuttlecock Assembler Name Role Phone Gareth Gramajo MD Primary Care Provider + Encounter Details Date Type Department Care Team (Late st Contact Info) Description 12/19/2011 Telephone Obstetrics [place] [phone] Tenzin Harrell MD [facility] [place] [address] Social History Tobacco Use Types Packs/Day Years Used Date Smoking Tobacco: Never Sex and Gender Information Value Date Recorded Sex Assigned at Not on file Gender Identity Not on file Sexual Orientation Not on file documented as of this encounter Miscellaneous Notes * Telephone Encounter - Tenzin Harrell MD - 12/21/2011 4:20 PM EDT I reviewed the bladder diary with the patient. Based on her symptoms being unclear, I have recommended urodynamic evaluation. She is agreeable to this. TENZIN HARRELL MD documented in this encounter Plan of Treatment Upcoming Encounters Date Type Department Care Team (Late st Contact Info) Description 03/13/2024 9:45 AM EDT Office Visit Dermatology at [place] [address] [facility] [place] [address] Emiliano Salinas MD [address], [place] [address] documented as of this encounter Visit Diagnoses Diagnosis Urinary incontinence, mixed- Primary Mixed incontinence urge and stress (male)(female) documented in this encounter Care Teams Shuttlecock Assembler Relationship Specialty Start Date End Date Gareth Gramajo MD [address] [place] [address] PCP - General 04/24/11 07/08/13 documented as of this encounter
--- OUTSIDE RECORDS SUMMARY | 2024-02-15 13:18 | XMS_ITS | Encounter Summary ---
Author Organization [facility] [place] [address] Care Team Providers Care Piano Builder Name Role Phone Franca Charles MD Primary Care Provider [phone] Encounter Details Date Type Department Care Team (Late st Contact Info) Description 06/29/2010 12:35 PM EST Office [place] [address] Leisa Lewis MD [facility] [place] [address] Social History Tobacco Use Types Packs/Day Years [...] 9:45 AM EDT Office Visit Dermatology at [place] [address] [place] [phone] Emiliano Salinas MD [address], [place] [address] documented as of this encounter Visit Diagnoses Not on filedocumented in this encounter Care Teams Piano Builder Relationship Specialty Start Date End Date Franca Charles MD [address] [place] [address] PCP - General 05/02/10 01/30/11 documented as of this encounter
--- OUTSIDE RECORDS SUMMARY | 2024-02-15 13:18 | XMS_ITS | Encounter Summary ---
[place] [address] Care Team Providers Care Portable Router Operator Name Role Phone Franca Charles MD Primary Care Provider [phone] Reason for Visit * Reason Onset Date Comments Other 12/28/2010 sick returning [place] Encounter Details Date Type Department Care Team (Late st Contact Info) Description 12/28/2010 [place] [phone] Danika Chin RN Other (sick returning traveler) Social History Tobacco Use Types Packs/Day Years Used Date Smoking Tobacco: Never Assessed Sex and Gender Information Value Date Recorded Sex Assigned at Not on file Gender Identity Not on file Sexual Orientation Not on file documented as of this encounter Miscellaneous Notes * Telephone Encounter - Danika Chin RN - 12/28/2010 4:08 PM EDT Yessenia calls again today to report she has completed three day course of cipro for diarrhea after trip to [place]. See note on 12/25/2010. She no longer has diarrhea, now reporting constipation and stomach cramping. Remains afebrile; describes extreme fatigue. Contacted [facility] lab for results of stool testing; giardia neg; O&P neg, crypto neg, preliminary culture result neg. Discussed with Dr. Mary Casas advised to seek care from PCP; Dr. Hernandez available to consult with PCP as needed. Advised to rest; monitor for temperature; and check in with me on 01/01/2011 documented in this encounter Plan of Treatment Upcoming Encounters Date Type Department Care Team (Late st Contact Info) Description 03/13/2024 9:45 AM EDT Office Visit Dermatology at [place] [address] [place] [address] Emiliano Salinas MD [address], [place] [address] documented as of this encounter Visit Diagnoses Not on filedocumented in this encounter Care Teams Portable Router Operator Relationship Specialty Start Date End Date Franca Charles MD [address] [place] [address] PCP - General 05/02/10 01/30/11 documented as of this encounter
--- OUTSIDE RECORDS SUMMARY | 2024-02-15 13:18 | XMS_ITS | Encounter Summary ---
Author Organization [facility] [place] [address] Care Team Providers Care Linoleum Tile Floor Layer Name Role Phone Gareth Gramajo MD Primary Care Provider + Encounter Details Date Type Department Care Team (Late st Contact Info) Description 07/26/2011 [place] [address] Sunita Mcknight MD [facility] [place] [address] THERESA (obstructive sleep apnea) (Primary Dx) Social [...] EDT Office Visit Dermatology at [place] [address] [place] [phone] Emiliano Salinas MD [address], [place] [address] documented as of this encounter Visit Diagnoses Diagnosis THERESA (obstructive sleep apnea)- Primary Obstructive sleep apnea (adult) (pediatric) documented in this encounter Care Teams Linoleum Tile Floor Layer Relationship Specialty Start Date End Date Gareth Gramajo MD [address] [place] [address] PCP - General 04/24/11 07/08/13 documented as of this encounter
--- OUTSIDE RECORDS SUMMARY | 2024-02-15 13:18 | XMS_ITS | Encounter Summary ---
Author Organization [facility] [place] [address] Care Team Providers Care Engagement Mgr Name Role Phone Gareth Gramajo MD Primary Care Provider + Reason for Visit * Reason Comments Procedure UDS Encounter Details Date Type Department Care Team (Latest Contact Info) Description 01/08/2012 8:15 AM EDT Procedure visit Obstetrics [place] [address] Juan Alberto Harrell MD [facility] [address] OBSTETRICS [place] [address] Urinary incontinence, urge (Primary Dx) Discharge Disposition: Home Social History Tobacco Use Types Packs/Day Years Used Date Smoking Tobacco: Never Smokeless Tobacco: Never Sex and Gender Information Value Date Recorded Sex Assigned at Not on file Gender Identity Not on file Sexual Orientation Not on file documented as of this encounter Last Filed Vital Signs Vital Sign Reading Time Taken Comments Blood Pressure 124/74 01/08/2012 8:10 AM EDT Pulse - - Temperature - - Respiratory Rate - - Oxygen Saturation - - Inhaled Oxygen Concentration - - Weight 88 kg (193 lb 14.4 oz) 01/08/2012 8:10 AM EDT Height - - Body Mass Index 33.81 11/22/2011 9:55 AM EDT documented in this encounter Patient Instructions * Patient Instructions* Juan Alberto Harrell MD - 01/08/2012 9:24 AM EDT Bladder Training Many bodily functions are influenced by habit. We learn where and how to urinate (void, pee, empty your bladder) from habits taught to us by our parents. Over time our habits can change and become bad. Using the same techniques we used to learn good habits can sometimes help us correct these bad habits. This is certainly true of the bladder. The object is for you to re-establish your brains control over bladder function. To change your bladder control habit, start by urinating every 45 minutes (NO MATTER WHAT) during the day. You must urinate by the clock whether you need to or not. At night only urinate as the need arises - no need to be on the rigid schedule. In the morning you must resume the schedule. For example, if you are scheduled to urinate at 6:30 AM but at 6:10 AM you have a strong urge to urinate, youmust try and wait until 6:30 AM to urinate EVEN IF YOU LEAK URINE BEFORE THE SCHEDULED TIME. When you are able to follow this schedule for seven days without losing control of your bladder, increase the interval between urinations by 15 minutes. You will keep increasing your time interval asyou succeed in re-establishing bladder control until you can comfortably urinate only every 2-3 hours. This requires a lot of discipline and unfortunately time. YOU CAN DO IT! Bladder training is as good and by some studies BETTER than medications! There are NO medication side effects and lessons learned could be useful no matter what other bladder interventions are being planned or implemented. WEEK 1 Try to urinate every hour WEEK 2 Try to urinate every 1 hour 15 minutes WEEK 3 Try to urinate every 1 hour 30 minutes WEEK 4 Try to urinate every 1 hour 45 minutes WEEK 5 Try to urinate every 2 hours, etc PELVIC FLOOR EXERCISES: Start pelvic floor exercises twice daily. (Remember to do them when brushing your teeth.) --10 reps of quick flicks --10 reps, long, hard squeeze (try to get up to 30-60 seconds per squeeze) documented in this encounter Progress Notes * Juan Alberto Harrell MD - 01/08/2012 9:47 AM EDT Female Pelvic Medicine and Reconstructive Surgery @ [facility] Urodynamic Procedure Note Patient name: Yessenia Luong Final Impression: ?? Urinary incontinence, likely urge-related based on bladder diary and urodynamic testing. She hasa large functional bladder capacity at night, much more frequency and urgency during the daytime. ?? No evidence for stress urinary incontinence. Recommendations: ?? We discussed options for bladder drill training, weight loss, trial of an anticholinergic agent.She has underlying constipation issues that make anticholinergic agents less favorable. After reviewing options and also discussing alternatives such as sacral neuromodulation (InterStim) or botulinum toxin injections in the bladder detrusor muscle, she wants to try an anticholinergic agent. She will also start bladder drill training and attempt weight loss. ?? Return to reassess in 3 months. INDICATIONS FOR URODYNAMICS: ( ) Voiding problems (x) Urinary incontinence ( ) Pelvic organ prolapse ( ) Other: URINE ANALYSIS: negative for all components UROFLOWMETRY: Total Volume Voided: 117 cc Post void residual: 15 cc Qmax: 12.3 cc/sec Qav.1 cc/sec CYSTOMETROGRAM: Filling was performed via a 7 Portuguese T-DOC catheter in the sitting position at a rate of 50cc/min. A 7 Portuguese T-DOC catheter was placed in the rectum for measurement of abdominal pressures. The catheter was then taped in place, measuring Pves and Vani simultaneously during Valsalva and cough pressure testing. EMG: Not performed Detrusor pressure at 0cc: 1 cm H2O First sensation: 260 cc First desire: 272 cc Strong desire: 300 cc Maximum cystometric capacity: 600 cc Detrusor pressure at capacity: 0 cm H2O Detrusor contractions associated with urge (YES/NO): no Detrusor contractions associated with urinary leakage (YES/NO): no Leaks with urine with valsalva/cough (YES/NO): no Leak point pressure testing performed at 200 - 300cc at 50cc increments and at capacity. Maneuver Leak? Pressure Sitting w/o prolapse support no 33-132 cm H2O (Pves) Sitting with prolapse support (scopette) n/a n/a cm H2O (Pves) Urethral catheter out w/o prolapse support no 44 - 139 cm H2O (Pabd) Urethral catheter out with prolapse support (scopette) n/a n/a cm H2O (Pabd) PRESSURE-FLOW VOIDING STUDY: Voided: 679 cc Maximum flow rate: 57 cc/sec P det Qmax: 123 cm H2O Comments: (x) Abdominal straining with void ( ) Obstruction by Blaivis / Groutz nomogram ( ) Other: I was present for the pertinent portions of the urodynamic testing and fully reviewed and edited the results. Symptom diagnosis: Storage symptoms ( ) None ( ) Increased daytime frequency ( ) Nocturia ( ) Urgency ( ) Stress urinary incontinence ( ) Urge urinary incontinence (x) Mixed urinary incontinence ( ) Nocturnal enuresis ( ) Continuous urinary incontinence Voiding symptoms (x) None ( ) Slow stream ( ) Splitting/spraying ( ) Straining (muscular effort to initiate, maintain or improve flow) ( ) Feeling of incomplete emptying Other Diagnoses: ( ) Urodynamic Diagnosis: Filling Phase Diagnoses: Sensation (x) Normal bladder sensation ( ) Increased bladder sensation (First sensation < 20cc) ( ) Reduced bladder sensation (FS > 250cc & First desire > 400cc & Strong desire >600cc) ( ) Absent bladder sensation (NO sensation to void with a volume > 600cc) ( ) Urgency Filling Phase Diagnosis: Detrusor Function (x ) Normal filling detrusor function ( ) Detrusor overactivity ( ) Phasic detrusor overactivity ( ) Terminal detrusor overactivity ( ) Detrusor overactivity with incontinence Filling Phase Diagnosis: Urethral closure mechanism (x) Normal filling phase ( ) Urodynamic stress urinary incontinence Voiding Phase Diagnoses: Detrusor function during voiding ( ) Normal voiding detrusor function (x) Detrusor underactivity ( ) Acontractile detrusor Voiding Phase Diagnoses: Urethral function during voiding (If EMG not done, may be less specific source) ( ) Normal urethral function during voiding ( ) Bladder outlet obstruction ( ) Dysfunctional voiding ( ) 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 JUAN ALBERTO HARRELL MD Division of Female Pelvic Medicine and Reconstructive Surgery documented in this encounter Plan of Treatment Upcoming Encounters Date Type Department Care Team (Late st Contact Info) Description 03/13/2024 9:45 AM EDT Office Visit Dermatology at [place] [address] [place] [address] Emiliano [place]inas MD [address] [facility], [place] [address] documented as of this encounter Visit Diagnoses Diagnosis Urinary incontinence, urge- Primary Urge incontinence documented in this encounter Care Teams Engagement Mgr Relationship Specialty Start Date End Date Gareth Gramajo MD [address] [place] [address] PCP - General 04/24/11 07/08/13 documented as of this encounter
--- OUTSIDE RECORDS SUMMARY | 2024-02-15 13:18 | XMS_ITS | Encounter Summary ---
Author Organization [facility] [place] [address] Care Team Providers Care Welfare Aide Name Role Phone Franca Charles MD Primary Care Provider [phone] Encounter Details Date Type Department Care Team (Late st Contact Info) Description 07/09/2010 8:00 PM EST Procedure [place] [address] Leisa Lewis MD [facility] [place] [address] Social History Tobacco Use Types Packs/Day Years [...] 9:45 AM EDT Office Visit Dermatology at [place] [address] [place] [phone] Emiliano [place]inas MD [address], [place] [address] documented as of this encounter Visit Diagnoses Not on filedocumented in this encounter Care Teams Welfare Aide Relationship Specialty Start Date End Date Franca Charles MD [address] [place] [address] PCP - General 05/02/10 01/30/11 documented as of this encounter
--- OUTSIDE RECORDS SUMMARY | 2024-02-15 13:18 | XMS_ITS | Encounter Summary ---
Author Organization [facility] [place] [address] Care Team Providers Care Pickle Pumper Name Role Phone Franca Charles MD Primary Care Provider [phone] Reason for Visit * Reason Onset Date Comments Anxiety 09/25/2010 Encounter Details Date Type Department Care Team (Late st Contact Info) Description 09/25/2010 Telephone [place] [address] Liam Lee MD [facility] [place] [address] Anxiety Social History Tobacco Use Types Packs/Day Years Used Date Smoking Tobacco: Never Assessed Sex and Gender Information Value Date Recorded Sex Assigned at Not on file Gender Identity Not on file Sexual Orientation Not on file documented as of this encounter Miscellaneous Notes * Telephone Encounter - Liam Lee - 09/25/2010 12:39 PM EDT Returned call from patient this morning. She expressed difficulty with sleep, possibly related to anxiety about CPAP use, wondering about alternative medications in place of trazodone, which she's been taking for 20+ years. Also wonders if Lexapro could be keeping her up at night. Has been feeling worse insomnia since Feb 2010, which is around when she started Lexapro, but has also been diagnosed with THERESA and treated with CPAP during that same time period. I reviewed her compliance card data download from [employer] for dates of 08/10/10 to 09/20/10, which show good control of AHI with a moderate amount of leak. She is in the process of working with her medical supply company to find a proper mask fit, currently using nasal gel mask (extra-small) but has small size on order. Discussed options for sedative to help with sleep and/or CPAP-related anxiety. Could increase trazodone dose, though patient experiences significant daytime drowsiness at doses of 150mg. She suggestsamitriptyline, which is a reasonable alternative to trazodone. Discussed r/b/se including common anticholinergic effects of dry mouth, constipation, blurry vision. Patient denies h/o cardiac disease or arrhythmia. Non-BZD receptor agonists such as zolpidem were discusses, but patient prefers trial of amitriptyline at this time. She also wonders whether she could cut back on daytime dosing of Lexapro, since she didn't feel it was that helpful for depression. She has cleared this decision with her psychiatrist, Dr. Contreras. Also of note, patient states in the past when taking Effexor, trazodone, and another serotonergic med, she experienced activation and manic symptoms. This has not occurred with Lexapro and trazodone combination, and amitriptyline would pose no higher risk than trazodon e for this effect. Denies h/o symptoms c/w serotonin syndrome. Plan: ?? Continue experimenting to obtain optimal mask fit and comfort ?? D/c trazodone ?? Trial amitriptyline 25-50mg qhs ?? Patient to take Glory at HS instead of AM ?? Patient verbalizes plan to also decrease Lexapro dose from 10 to 5mg under the supervision of her psychiatrist; this may help with sleep if it is at all activating for her ?? F/u with Dr. Guerrero at planned appointment 10/17/10 documented in this encounter Plan of Treatment Upcoming Encounters Date Type Department Care Team (Late st Contact Info) Description 03/13/2024 9:45 AM EDT Office Visit Dermatology at [place] [address] [place] [address] Emiliano Salinas MD [address], BAKARI [place] [address] documented as of this encounter Visit Diagnoses Not on filedocumented in this encounter Care Teams Pickle Pumper Relationship Specialty Start Date End Date Franca Charles MD [address] [place] [address] PCP - General 05/02/10 01/30/11 documented as of this encounter
--- OUTSIDE RECORDS SUMMARY | 2024-02-15 13:18 | XMS_ITS | Encounter Summary ---
Author Organization [facility] Address [facility] [place] [address] Care Team Providers Care Book Editor Name Role Phone Gareth Cunningham MD Primary Care Provider + Reason for Visit * Reason Comments Obstructive Sleep Apnea Encounter Details Date Type Department Care Team (Late st Contact Info) Description 07/12/2011 8:35 AM EST Office [place] [address] Sunita Mcknight MD [facility] [address] [place] [address] THERESA (obstructive sleep apnea) (Primary Dx) Social [...] - Inhaled Oxygen Concentration - - Weight 85.9 kg (189 lb 6.4 oz) 07/12/2011 9:11 A M EST Height 161.3 cm (5' 3.5) 07/12/2011 9:11 AM EST Body Mass Index 33.02 07/12/2011 9:11 AM EST documented in this encounter Progress Notes * Leisa Lewis MD - 07/30/2011 10:35 AM EST I evaluated this . Yessenia Luong with Dr. Mcknight and performed albright aspects of the history and examination. I actively participated in the formulation of the management strategy. I have reviewed 's note and agree with the assessment and recommendations. LEISA LEWIS MD * Sunita Mcknight - 07/12/2011 9:11 AM EST Date of Service: 07/12/2011 Primary Care Physician: GARETH CUNNINGHAM MD SLEEP MEDICINE FOLLOW-UP NOTE: CC: fup THERESA HPI: Yessenia Luong is a 61 y.o. female seen for follow-up of obstructive sleep apnea. The patient was diagnosed with moderate THERESA 06/2010 (AHI 21). CPAP was initiated at 11 CWP. She was last seen approximately 6 months ago and at that time she was feeling better on CPAP but having someside effects of amitriptyline, which she was using as a sleep aid. She was advised to decrease the dose of amitriptyline. She discontinued amitriptyline and went back on trazodone 100 mg per day. The patient reports that she has developed problems with headaches and dizziness and she feels this maybe related to CPAP and the mask. She reports gradual development of DUARTE and feeling dizzy in the past few months. Headaches and dizziness are present most days during the month and she feels quite groggy in the morning. She does not like her mask, but feels it is a reasonable fit. She was a bit reluctant to switch masks. She does not like using CPAP, but uses it regularly. She is interested in other treatment options. She denies headaches that are present when she wakes up from sleep or when shetightens the mask or related to the straps. SHe drinks 4-5 cups coffee per day. The patient reports she initially noted marked improvement on CPAP since initiation of treatment. Treatment: Device: CPAP Pressure: 11 CWP Interface: FFM mask Chin strap: none Ongoing Complaints While Using PAP: Snoring: unknown Observed apneas: Unknown Mouth breathing: yes Dry mouth: yes, humidication at 1% Nocturnal Gasping: None Pressure intolerance: perhaps too low Mask comfort: yes, mask discomfort reported. Patient does not like current mask. Mask leak:: yes, leak is reported with shifts in position Aerophagia: None Daytime Symptoms: [place]: not done Upon Awakening: unrefreshed, feels groggy. Daytime naps: see dozing Involuntary Dozing: only dozes off for 5 minutes A few days Driving: No difficulty with drowsiness or dozing at the wheel Close calls related to sleepiness: no Accidents related to sleepiness: no Review of Systems: CONSTITUTIONAL: Intentionally trying to loose 4 lbs. ENT: Nasal Obstruction: None NEURO: Headaches Interval Medical History: besides DUARTE and dizziness, denies interval change. The patient has a history of depression, obesity, and THERESA Medications: Current outpatient prescriptions:amitriptyline (ELAVIL) 25 mg tablet, Take by mouth nightly. May take 1-2 tabs (25-50mg)., Disp: 60 tablet, Rfl: 2; multivitamin (THERAGRAN) tablet, Take 1 tablet by mouth daily., Disp: , Rfl: ; escitalopram (LEXAPRO) 10 mg tablet, Take 10 mg by mouth every morning.,Disp: , Rfl: ; PRAVASTATIN SODIUM (PRAVACHOL ORAL), Take by mouth daily., Disp: , Rfl: fexofenadine (EVANGELINA) 180 mg tablet, 180 mg, PO, Once daily, Disp: , Rfl: ; DOCOSAHEXANOIC ACID/EPA (FISH OIL ORAL), , Disp: , Rfl: ; CALCIUM/MAGNESIUM (CALCIUM AND MAGNESIUM ORAL), , Disp: , Rfl: ;Mometasone (NASONEX) 50 mcg/Actuation [place], 2 [place](s) each nostril, Nasal, Twice daily, Disp: , Rfl: ; albuterol (VENTOLIN HFA) 90 mcg/Actuation inhaler, 1-2 puffs, Inh, Q4-6H PRN, Disp: , Rfl: Allergies: Sulfa (sulfonamide antibiotics) and Bee pollen PE: Ht 161.3 cm (5' 3.5) Wt 85.911 kg (189 lb 6.4 oz) BMI 33.02 kg/m2 General: pleasant 61 y.o. female, well appearing, in no apparent distress Psych: affect appropriate Lungs: normal respiratory effort Neuro: CN grossly intact, no abnormal movements, gait normal. Compliance Card Data: Date Range: 04/08/11-07/11/11 Settin CWP % Nights used: 100 % Nights used 4 or more hours: 98.9 Average usage for days used: 8 hrs 34 min Time in Large Leak per Night: 32 min Residual AHI: 2.8 Assessment: Yessenia Luong is a 61 y.o. female with depression and obesity seen in follow- up for moderate obstructive sleep apnea. We discussed that THERESA is often a lifelong disorder and we reviewed various treatment options including dental device and surgery. We discussed that weight loss can significantly reduce the severity of her THERESA and in some cases cure it. She was interested in a referral for a dental device. She understood that she is a reasonable candidate for this therapy, but her weight makes it less likely that it would be successful. I think it is worth an evaluation since she doesn't likeCPAP very much. She reports mask leak and mask discomfort. Mask fitting is recommended if she would like to do so. She reports difficulty with headaches and dizziness, which can be related to many things. I asked her to discuss these symptoms with her PCP further. Headaches can be related to THERESA, but it seems less likely because she denies pain related to headgear for mask and her THERESA is fairly well treated with excellent compliance and low residual AHI. Caffiene intake can cause headaches and so could try decreasing amount of caffiene she takes in. In addition, she was very interested in coming off of trazodone, but states that she has not slept well when doing so in the past. I told her to discuss changes in trazodone with her PCP. Ambien would be a reasonable sleep aid alternative. We discussed ADRs of ambien in detail. Short acting ambien was advised to try to minimize daytime grogginess which she already has difficulties with. Recommendations 1. CPAP at 11 via a FFM. 2. Follow up in 3 months. 3. Driving safety discussed, if drowsy dont drive, if drowsy while driving door puller and take a nap. 4. Dental device referral 5. Mask refitting recommended. 6. Ambien 5mg PO QHS. Consider decreasing trazodone as clinically warranted. Diagnostic Codes: Obstructive sleep apnea, 327.23 Provisional: Final: Obstructive sleep apnea Time spent face to face: 45 min. Time spent devoted to counseling and discussion: 30 min. This case was supervised by Dr. Lewis who saw the patient and participated in the formulation of theabove plan. documented in this encounter Plan of Treatment Upcoming Encounters Date Type Department Care Team (Late st Contact Info) Description 03/13/2024 9:45 AM EDT Office Visit Dermatology at [place] [address] [place] [address] Emiliano Salinas MD [address], [place] [address] documented as of this encounter Visit Diagnoses Diagnosis THERESA (obstructive sleep apnea)- Primary Obstructive sleep apnea (adult) (pediatric) documented in this encounter Care Teams Book Editor Relationship Specialty Start Date End Date Gareth Cunningham MD [address] [place] [address] PCP - General 04/24/11 07/08/13 documented as of this encounter
--- OUTSIDE RECORDS SUMMARY | 2024-02-15 13:18 | XMS_ITS | Encounter Summary ---
Author Organization [facility] [place] [address] Care Team Providers Care Shank Sander Name Role Phone Sharma Chantellrebecca Lester APRN Primary Care Provider [phone] Reason for Visit * Reason Comments Skin Check Encounter Details Date Type Department Care Team (Late st Contact Info) Description 08/07/2013 10:15 AM EST Office Visit Dermatology at [address] [address] Emiliano Salinas MD [address] [facility], MANINDER A DERMATOLOGY [place], [place] [id number] Solar lentigo (Primary Dx); Female pattern alopecia Social History Tobacco Use Types Packs/Day Years Used Date Smoking Tobacco: Never Smokeless Tobacco: Never Sex and Gender Information Value Date Recorded Sex Assigned at Not on file Gender Identity Not on file Sexual Orientation Not on file documented as of this encounter Progress Notes * Emiliano Salinas MD - 08/07/2013 10:57 AM EST Problems: 1. Skin checkup. 2. History of androgenic alopecia. 3. History of rosacea status post multiple laser treatments. 4. History of allergic contact dermatitis, status post patch testing with Dr. Pham in October 1998 with 3+ reaction to thimerosal, 2+ reaction to paraphenylenediamine from hairdressing trade. Yessenia follows up for repeat check. She has been doing well. I last saw her a year ago. She would like refills of her tretinoin cream. She stopped using Rogaine, not liking putting chemicals on her scalp. She is here for a regular skin check. She is now 63. Physical examination reveals a pleasant, 63-year-old woman who has a very healthy complexion with minimal to no rosacea today. She has actually relatively minimal photo aging given the sun damage and sun tanning she reports having done in her youth. She has an increased number, however, of solar lentigos present on the lateral cheeks. There is no significant facial creasing or wrinkling. Examination of the head and neck, chest, back, hands, arms, forearms, thighs, and calves reveals very faint solar lentigos on the dorsal hands and forearms. She continues to have diffuse thinning of the entire parietal scalp with a 4-mm part of the parietal scalp and a 2-mm part of the occipital scalp, consistent with her stable androgenic alopecia. Hair pull is negative. Assessment and Plan: 1. Androgenic alopecia, stable. a. Patient reassured. b. No treatment necessary. c. Information given to her today about importance of protein in her diet, and the typewritten handout was given. d. I reassured her that her androgenic alopecia appears stable. 2. Mild solar lentigos/mild solar aging. a. At patient request, she was given refills of her tretinoin 0.05% cream, applying this on a nightly basis one half-hour after washing; 20 grams dispensed with p.r.n. refills. This was sent to her [facility] pharmacy in [facility]. She knows this will be an [id number] expense. 3. Xerosis. a. I recommended that the patient use CeraVe cream on a regular b.i.d. basis. b. Return to clinic here in one year for repeat check; reminder in one year. COPY: Nova [email or web address] Note: Half an hour was spent with the patient with more than half spent in counseling. documented in this encounter Miscellaneous Notes * Addendum Note - Irene Vargas LPN - 08/07/2013 11:07 AM ESTAddended by: IRENE VARGAS on: 08/07/2013 11:07 AM Modules accepted: Orders documented in this encounter Plan of Treatment Upcoming Encounters Date Type Department Care Team (Late st Contact Info) Description 03/13/2024 9:45 AM EDT Office Visit Dermatology at [place] [address] [place] [address] Emiliano Salinas MD [address] [facility], [place] [address] documented as of this encounter Visit Diagnoses Diagnosis Solar lentigo- Primary Other dyschromia Female pattern alopecia Alopecia, unspecified documented in this encounter Care Teams Shank Sander Relationship Specialty Start Date End Date Chantell Sharma APRN PCP - General 07/09/13 05/09/16 documented as of this encounter
--- OUTSIDE RECORDS SUMMARY | 2024-02-15 13:18 | XMS_ITS | Encounter Summary ---
Author Organization [facility] [place] [address] Care Team Providers Care Weed Control Inspector Name Role Phone Franca Charles MD Primary Care Provider [phone] Encounter Details Date Type Department Care Team (Late st Contact Info) Description 08/28/2010 11:00 AM EDT [place] [address] Vern Salmeron MD [facility] [address] [place] [address] Discharge Disposition: Home Social History Tobacco Use [...] EDT Office Visit Dermatology at [place] [address] [place] [address] Emiliano Salinas MD [address], [place] [address] documented as of this encounter Visit Diagnoses Not on filedocumented in this encounter Care Teams Weed Control Inspector Relationship Specialty Start Date End Date Franca Charles MD [address] [place] [address] PCP - General 05/02/10 01/30/11 documented as of this encounter
--- OUTSIDE RECORDS SUMMARY | 2024-02-15 13:18 | XMS_ITS | Encounter Summary ---
Author Organization [facility] Address [facility] [place] [address] Care Team Providers Care Journeyman Tool And Die Maker Name Role Phone Gareth Cunningham MD Primary Care Provider + Reason for Visit * Reason Comments Establish Care incont s/p repair Encounter Details Date Type Department Care Team (Late st Contact Info) Description 11/22/2011 9:15 AM EDT Office Visit Obstetrics [place] [address] Juan Alberto Harrell MD [facility] [address] OBSTETRICS [place] [address] Urinary incontinence (Primary Dx) Discharge Disposition: Home Social History Tobacco Use Types Packs/Day Years Used Date Smoking Tobacco: Never Sex and Gender Information Value Date Recorded Sex Assigned at Not on file Gender Identity Not on file Sexual Orientation Not on file documented as of this encounter Last Filed Vital Signs Vital Sign Reading Time Taken Comments Blood Pressure 114/68 11/22/2011 9:55 AM EDT Pulse - - Temperature - - Respiratory Rate - - Oxygen Saturation - - Inhaled Oxygen Concentration - - Weight 83.9 kg (185 lb) 11/22/2011 9:55 AM EDT Height 161.3 cm (5' 3.5) 11/22/2011 9:55 AM EDT Body Mass Index 32.26 11/22/2011 9:55 AM EDT documented in this encounter Progress Notes * Juan Alberto Harrell MD - 11/22/2011 10:14 AM EDT Female Pelvic Medicine and Reconstructive Surgery @ [facility] Patient Name: Yessenia Luong Patient Primary Care Provider: GARETH CUNNINGHAM MD Referring Provider: Neisha Castaneda MD Chief Complaint: Urinary incontinence History of Present Illness: Ms. Luong is a 61 y.o. old para 2 woman, seen at the kind request of Dr. Castaneda. She presents for evaluation and assessment of urinary incontinence of approximately one year's duration. She is uncertain about when the leakage happens at times or if it is even urine. She has notedwetness at night when asleep. Goals for visit: 1. Decrease leaking Bladder Function Urinary incontinence: yes No. episodes: Laughing (roaring); + inability to delay urination Pad use (per day): 1-10 Pad type: menstrual Daytime voids: Every few hours, varies with intake Nocturia: 0-1 Previous urinary incontinence treatment (Medical/Behavioral/Surgical): None other than Kegel's Storage symptoms x Urinary frequency Nocturia x Stress urinary incontinence - leakage with exertion, cough/sneeze ? Urge urinary incontinence - leakage preceded immediately by urge to void A few times Noctural enuresis - NOT IN ASSOCIATION WITH URGE Continuous urinary leakage Other: (e,g. giggle, intercourse-related) Bladder sensation Normal - aware of filling and increased sensation up to desire to void x Increased - feels an early and persistent need to void Reduced - aware of filling but NOT definite desire to void Absent - NO sensation of filling or need to void Non-specific - No specific bladder symptoms during filling or void Voiding symptoms None Slow stream Spraying Intermittent stream - stop/start on > 1 occasion during void Straining - muscular effort to initiate, maintain OR improve stream Terminal dribble - prolonged final part of void x Feeling of incomplete emptying Bladder irritants: Caffeine intake: 2-4 cups of coffee / day Cigarette smoking (packs, time, if quit when): no Alcohol: 1- 2 glasses of wine / night Pelvic Organ Prolapse (POP) Any personally see or feel a vaginal bulge? no What precipitates prolapse or symptoms of prolapse? n/a Extent of protrusion: n/a Previous treatment for POP (physical therapy, pessary, surgery)?: S/p rectocele repair Bowel Function Fecal incontinence (yes/no): Flatus only Number of fecal incontinent episodes (day/week): n/a Number of bowel movements (day/week): Every day, takes Dulcolax almost every night Defecatory Dysfunction: Symptom Presence Symptom Presence NONE Incomplete Emptying Straining x Infrequent stools (<3 week) Splinting Abdominal discomfort x Loose stools Defecatory urgency Hard stools x Other Sexual Function Active?: Yes, single partner Pain with intercourse?: no If yes, insertional / deep?: n/a Desire to retain sexual function?: yes Change or concern regarding libido?: No concerns Gynecologic/Obstetric History: Last PAP smear: S/p hysterectomy Last mammogram: Annually in [facility] Colonoscopy: Up to date Bone density: Up to date Past Medical History Diagnosis Date ??? 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 Rosacea 04/24/2011 ??? THERESA (obstructive sleep apnea) 11/21/2011 Past Surgical History Procedure Date ??? Vaginal prolapse repair 04/11/2007 Dr. Castaneda, at [facility] ??? section 1979, 1981 ??? Miguel and o 1988 Allergy to progesterone ??? Tonsillectomy ??? Appendectomy Outpatient prescriptions marked as taking for the 11/22/11 encounter (Office Visit) with JUAN ALBERTO HARRELL Medication Sig Dispense Refill ??? traZODone (DESYREL) 100 mg tablet Take 100 mg by mouth nightly. ??? multivitamin (THERAGRAN) tablet Take 1 tablet by mouth daily. ??? escitalopram (LEXAPRO) 10 mg tablet Take 10 mg by mouth every morning. ??? fexofenadine (EVANGELINA) 180 mg tablet 180 mg, PO, Once daily ??? DOCOSAHEXANOIC ACID/EPA (FISH OIL ORAL) ??? CALCIUM/MAGNESIUM (CALCIUM AND MAGNESIUM ORAL) ??? Mometasone (NASONEX) 50 mcg/Actuation [place] 2 [place](s) each nostril, Nasal, Twice daily ??? albuterol (VENTOLIN HFA) 90 mcg/Actuation inhaler 1-2 puffs, Inh, Q4-6H PRN Allergies Allergen Reactions ??? Sulfa (Sulfonamide Antibiotics) ??? Bee Pollen ??? Voltaren (Diclofenac Sodium) History Social History ??? Marital Status: Spouse Name: N/A Number of Children: N/A ??? Years of Education: N/A Occupational History ??? Not on file. Social History Main Topics ??? Smoking status: Never Smoker ??? Smokeless tobacco: Not on file ??? Alcohol Use: Not on file ??? Drug Use: Not on file ??? Sexually Active: Not on file Other Topics Concern ??? 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 High Cholesterol Mother ??? High Cholesterol Father ??? Diabetes Maternal Grandfather ??? Heart Disease Father stent ??? 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 Castaneda. Data reviewed (images/urodynamic studies): A bladder scan was performed to rule out urinary retention. A urinalysis was performed to rule out infection. OBJECTIVE: Bladder scan (to exclude urinary retention): 6 ml Urine Dip (to rule out infection): negative for all components Blood pressure 114/68, height 161.3 cm (5' 3.5), weight 83.915 kg (185 lb). General: normal appearing female, pleasant mood, normal speech Skin: skin of abdomen/pelvis normal Respiratory: clear to auscultation bilaterally Neuro: no paraspinous tenderness; saddle sensory function (S2-4) intact in the pelvic area to touch Cardiac: regular rate and rhythm, no appreciated murmurs Gastrointestinal: no palpable masses/organomegaly, soft/nontender, no appreciable hernia Musculoskeletal: levator ani tone (0-5): 3-4, levator ani contraction (0-5): 4-5, no levator tenderness; lower extremity motor 5/5 bilaterally Pelvic: Cough stress test (empty supine): negative External Genitalia: Vulva, [place]'s and [place]th[place] glands normal, urethra without tenderness or mass Vagina: With Valsalva, the anterior vaginal wall comes 3 cm above the hymen, the posterior vagina wall comes 3 cm above the hymen, and the cervix/apex comes 9 cm above the hymen Atrophic epithelium (yes/no)?: no Discharge?: no Cervix: absent Bimanual (uterus/adnexa): uterus is surgically absent; no adnexal masses, non-tender Rectovaginal: No masses appreciated, non-tender Rectocele (yes/no): no Enterocele (yes/no): n/a Stool guaiac: n/a Anal sphincter: Anal wink: normal Bulbospongiosus reflex: n/a Resting tone (0-5): 5 EAS contraction: normal Sphincter defect: Not appreciable POP Q Measurements: Aa -3 Ba -3 C -9 GH 2,2 PB 3.5, 3.5 TVL 9 Ap -3 Bp -3 D -- Impression: Ms. Luong is a .61 y.o. woman with: ?? Urinary incontinence, mixed Recommendations: I reviewed the anatomy and physiology of urinary incontinence. We discussed options for management including: Continued observation, pelvic floor exercises (supervised or unsupervised), pessary and/or surgery. Based on the patients expressed goals for management I have recommended the following: ?? Start with a 3-day bladder diary with pyridium to assure leakage is urine. ?? She will cut back on caffeine, alcohol intake and continue efforts at weight loss. ?? If her incontinence persists and the diary is not helpful, consider urodynamic evaluation. (x) ACOG or other informational pamphlets given to patient JUAN ALBERTO HARRELL MD Division of Female Pelvic Medicine/Reconstructive Surgery CC: MD Neisha WALLS MD documented in this encounter Plan of Treatment Upcoming Encounters Date Type Department Care Team (Late st Contact Info) Description 03/13/2024 9:45 AM EDT Office Visit Dermatology at [place] [address] [facility] [address] [place] [address] Emiliano Salinas MD [address], [place] [address] documented as of this encounter Procedures Procedure Name Priority Date/Time Associated Diagnosis Comments BLADDER SCANNER Routine 11/22/2011 Urinary incontinence POCT URINE DIPSTICK Routine 11/22/2011 Urinary incontinence documented in this encounter Results * Bladder Scanner (11/22/2011) Scan 6 Juan Alberto Harrell MD URO PROC W/O RFL ORD ERABLES * POCT urine dipstick (11/22/2011) Pathologist [facility] POC Sp [place] 1.01 1.002 - 1.030 POC pH, UA 5 5.0 - 8.5 POC Leuk, UA n Negative - Negative POC Nitrite, UA n Negative - Negative POC Protein, UA n Negative - Negative mg/dL POC Glucose, UA n Normal - Normal mg/dL POC Ketone, UA n Negative - Negative POC Urobil, UA n 0.2 - 1.0 mg/dL POC Bili, UA n Negative - Negative POC Blood, UA n Negative - Negative norberto/uL Juan Alberto Harrell MD POINT OF CARE TEST O RDERABLES documented in this encounter Visit Diagnoses Diagnosis Urinary incontinence- Primary Unspecified urinary incontinence documented in this encounter Care Teams Journeyman Tool And Die Maker Relationship Specialty Start Date End Date Gareth Cunningham MD [address] [place] [address] PCP - General 04/24/11 07/08/13 documented as of this encounter
--- OUTSIDE RECORDS SUMMARY | 2024-02-15 13:18 | XMS_ITS | Encounter Summary ---
Author Organization [facility] [place] [address] Care Team Providers Care Health Policy Analyst Name Role Phone Chantell Sharma APRN Primary Care Provider [phone] Reason for Visit * Reason Comments Other Encounter Details Date Type Department Care Team (Late st Contact Info) Description 08/07/2013 [place] [id number] Lea Abdullahi MD [facility] [address] [place] [address] Social History Tobacco Use Types Packs/Day Years Used Date Smoking Tobacco: Never Smokeless Tobacco: Never Sex and Gender Information Value Date Recorded Sex Assigned at Not on file Gender Identity Not on file Sexual Orientation Not on file documented as of this encounter Miscellaneous Notes * Telephone Encounter - Lea Abdullahi MD - 08/07/2013 9:18 AM EST Called and left a message on home and mobile phone numbers. * Telephone Encounter - Lea Abdullahi MD - 08/07/2013 9:17 AM EST Message copied by LEA ABDULLAHI on SatAug 07, 2013 9:17 AM ------ Message from: SADIE MONCADA Created: SatAug 05, 2013 3:11 PM Did you get info on this patient from [place] yet in the mail? documented in this encounter Plan of Treatment Upcoming Encounters Date Type Department Care Team (Late st Contact Info) Description 03/13/2024 9:45 AM EDT Office Visit Dermatology at [place] [address] [facility] [place] [address] Emiliano Salinas MD [address], [place] [address] documented as of this encounter Visit Diagnoses Not on filedocumented in this encounter Care Teams Health Policy Analyst Relationship Specialty Start Date End Date Chantell Sharma APRN PCP - General 07/09/13 05/09/16 documented as of this encounter
--- OUTSIDE RECORDS SUMMARY | 2024-02-15 13:18 | XMS_ITS | Encounter Summary ---
Author Organization [facility] [place] [address] Care Team Providers Care Production Ski Repairer Name Role Phone Chantell Mims APRN Primary Care Provider [phone] Reason for Visit * Reason Comments Advice Only liposuction abdomen, bbr, Encounter Details Date Type Department Care Team (Late st Contact Info) Description 02/08/2015 9:45 AM EDT Office Visit [place] [address] Carlee Marvin MD [facility] [place] [address] Macromastia Discharge Disposition: Home Social History Tobacco Use [...] Sign Reading Time Taken Comments Blood Pressure 134/71 02/08/2015 10:33 AM EDT Pulse 70 02/08/2015 10:33 AM EDT Temperature - - Respiratory Rate - - Oxygen Saturation - - Inhaled Oxygen Concentration - - Weight 85.4 kg (188 lb 3.2 oz) 02/08/2015 10:33 AM EDT Height 162.6 cm (5' 4) 02/08/2015 10:33 AM EDT Body Mass Index 32.3 02/08/2015 10:33 AM EDT documented in this encounter Progress Notes * Carlee Marvin MD - 02/08/2015 10:45 AM EDT Plastic Surgery Consultation Note PCP: CHANTELL MIMS APRN (General) Requesting Physician: as above Reason for office visit: Symptomatic macromastia and abdominal pannus HPI: Yessenia Luong is a 64 y.o. female [...] also causes pain in her lower back. Pertinent findings to emphasize are: PLASTICS BREAST QUESTIONS 02/08/2015 Headaches? Some of the time Pain in your breast area? Some of the time Lack of energy? Some of the time Difficulty doing vigorous physical activities (e.g. running or exercising)? Some of the time Feeling physically unbalanced? Some of the time Shoulder pain? All of the time Difficulty sleeping because of discomfort in your breast area? Most of the time Neck pain? Most of the time Painful gouges or grooves in your shoulders from your bra straps? All of the time Feeling physically uncomfortable? All of the time Rashes under your breasts? All of the time Back pain? All of the time Arm pain? All of the time Pain, numbness or tingling in your hands because of your breast size? None of the time Satisfaction with Breasts 38 PsychoSocial Well-being 57 Sexual Well-being 73 Physical Well-being 39 Conservative Therapy Treatments: MYD-H PLASTICS CONSERVATIVE THERAPY TREATMENTS 02/08/2015 Physical therapy was effective at relieving my symptoms. No Relief How many months did you try this treatment? More than 6 months Use of custom support bras relieved my symptoms. Some Relief How many months did you try this treatment? More than 6 months Treatment by a chiropractor relieved my symptoms. Some Relief How many months did you try this treatment? More than 6 months Weight loss relieved my symptoms. No Relief How many months did you try this treatment? More than 6 months Non-narcotic medications (such as Tylenol, Aspirin, Ibuprofen, Aleve, etc) have relieved my symptoms. Some Relief How many months did you try this treatment? More than 6 months Narcotic pain relievers (such as Tylenol #3, Percocet, etc) have relieved my symptoms. Never Tried Other Treatments have relieved my symptoms. Never Tried Over the counter or prescription medication has relieved the rashes under my breasts. No Relief How many months did you try this treatment? More than 6 months Her most recent mammogram was within the past year and was normal. Past Medical History Diagnosis Date ??? 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 Rosacea 04/24/2011 ??? THERESA (obstructive sleep apnea) 11/21/2011 moderate, sleep mouth guard ??? Urinary incontinence, urge 01/08/2012 ??? Seasonal allergies ??? Hypercholesteremia ??? Hypothyroidism Past Surgical History Procedure Laterality Date ??? Vaginal prolapse repair 04/11/2007 Dr. Castaneda, at [facility] ??? section 1979, 1981 Complciated by infection ??? Miguel and bso 1988 Allergy to progesterone ??? Tonsillectomy ??? Appendectomy History Social History ??? Marital Status: Spouse Name: N/A Number of Children: 2 ??? 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 Smoking status: Never Smoker ??? Smokeless tobacco: Never Used ??? Alcohol Use: No ??? Drug Use: No ??? Sexual Activity: Not on file Other Topics Concern ??? 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 traZODone (DESYREL) 100 mg tablet Take 100 mg by mouth nightly. ??? fexofenadine (EVANGELINA) 180 mg tablet 180 mg, PO, Once daily ??? Mometasone (NASONEX) 50 mcg/Actuation [place] 2 Nash(s) each nostril, Nasal, Twice daily ??? [DISCONTINUED] tretinoin (RETIN-A) 0.025 % cream Apply 1 Application topically nightly. 1/2 hour after washing face. 20 g 5 ??? ASCORBATE CALCIUM (VITAMIN C ORAL) Take by mouth. ??? ERGOCALCIFEROL, VITAMIN D2, (VITAMIN D ORAL) Take by mouth. ??? [DISCONTINUED] vilazodone (VIIBRYD) 10 mg Tab Take by mouth. ??? [DISCONTINUED] oxybutynin (DITROPAN) 5 mg tablet Take 1 tablet by mouth 3 times daily as needed. 84 tablet 1 ??? multivitamin (THERAGRAN) tablet Take 1 tablet by mouth daily. ??? DOCOSAHEXANOIC ACID/EPA (FISH OIL ORAL) ??? CALCIUM/MAGNESIUM (CALCIUM AND MAGNESIUM ORAL) ??? [DISCONTINUED] albuterol (VENTOLIN HFA) 90 mcg/Actuation inhaler 1-2 puffs, Inh, Q4-6H PRN No current facility-administered medications on file prior to visit. Allergies: Allergies Allergen Reactions ??? Bee Pollen ??? Morphine Diarrhea and GI upset ??? Sulfa (Sulfonamide Antibiotics) ??? Voltaren [Diclofenac Sodium] ROS: HEENT, GI, /Renal, Psych, Card, Pulm, Endo, Heme, Immun, Neuro: negative She was cautioned to avoid taking aspirin or NSAIDs for at least two weeks prior to surgery if possible to lessen the risk of bleeding. If an analgesic were required, Tylenol would be the drug of choice. Examination: BP 134/71 mmHg Pulse 70 Ht 162.6 cm (5' 4) Wt 85.367 kg (188 lb 3.2 oz) BMI 32.29 kg/m2 Body surface area is 1.96 meters squared. Bra size: 42DD Goal cup size: C General: On my examination today, the patient appears to be in good health. Her emotional outlook is positive and she asked appropriate questions throughout the visit. pale skinned woman in no acute distress. She was well oriented and asked appropriate questions throughout the visit. HEENT: MMM, normocephalic, no facial abrasions, sclera white Neuro: PERRLA, extra ocular movement intact, facial movement symmetric, tongue midline Mild eyelid hooding or dermatochalasis brows rest along the supra orbital rim Lower lid fat pad herniation, normal snap test Alopecia Resp: No stridor, no wheezes, regular rate Extrem : wwp no c/e/e, no rashes Abd: She has a large grade 1 abdominal pannus with no active intertrigo at present. 2 cm pinch test of upper abdomen Scars: well healed low transverse horizontal scar , and a vertical scar just right of midline No hernia palpable. 2 cm diastasis supraumbilicus 1.5 cm diastasis sub umbilicus No active rash or cellulitis. Musculoskeletal: Her back is straight without evidence of kyphosis. Breast Measurements Right Left Ptosis II II SN-N (cm) 28.5 29.5 IMF-N (cm) 11 12 NAC elevat (cm) 7 7.5 Masses absent absent Shoulder grooves Present ++ Present++ Rash absent absent Axillary rolls Present ++ Present++ Surgical Scars absent absent Breast Vol (estimate in cc) 1300 1350 Resection (estimate in gms) 600 650 Impression: Symptomatic bilateral breast hypertrophy and abdominal panniculus. Breasts: Bilateral breast reduction is indicated for relief of her breast-related symptoms. She was providedwith an [facility] brochure and informed consent on breast reduction. The procedure of breast reduction was discussed in detail and it was emphasized that I cannot guarantee a specific requested size. She watched the informational video that included graphic images of excellent, average and poor results.It reviews the surgical risks, alternate skin incisions and pedicle versus free nipple graft techniques. It also discusses the option of volume reduction by liposuction alone, which does not alter the nipple-areolar complex position. It talks about the impact of this surgery on decreasing breast cancer risk. Abdomen: We talked about the scars and risks from abdominoplasty. She is aware that infection, delayed woundhealing, seroma and numbness are possibilities. She has been provided with the [facility] patient information brochure as well as their standard informed consent documents on abdominoplasty. She has expressed a desire to proceed with surgical correction. We have verified that we already have photographs on file. I feel strongly that she will gain significant symptom relief and avoid further intertrigo following surgery. We reviewed the timing of surgery relative to weight fluctuations and I've advised that surgery is best done at a realistic skilled nursing stable weight. We talked about the outpatient nature of the surgery, drains, postoperative recovery, and time required off work. She has been referred to [email or web address] and provided with my e-mail address. The following risks were reviewed in the video or in our discussion: Liposuction: minimal risks but swelling for several months is to be expected. Disadvantage is that not as much lifting is achieved. We talked about the sometimes need to increase the length of the inframammary fold incision and do a direct excision of tissue if we cannot meet our planned volume of resection. Surgical Risks which are greater with open reduction: bleeding with risk of hematoma (<5%); numbness, which may be temporary or permanent; scarring, including abnormal scarring; infection (5-10%);fat necrosis resulting in a breast mass and possible need for revision. I stressed the likelihood of minor problems with delayed wound healing (~30%) and the rare complication of nipple areolar necrosis. She is also aware that there may be some residual pain after the surgery and that there may possibly be some asymmetry. Vertical or Lollipop Incision: Less scarring on breast, but slightly greater risk for delayed healing and desire for scar revision. (She was informed that her insurer might not cover secondary revisions for scarring or asymmetry.) Fuentes or [place] Pattern Incision: More scarring on breast, but lower risk for scar revision. (She was informed that her insurer might not cover secondary revisions for scarring or asymmetry.) Pedicle Technique: volume of reduction may be limited by need to provide an adequate blood supply to the nipple. There is a very small risk of nipple loss. Most women (~60%) will be able to breast-feed. Free Nipple Graft: The grafts will initially have no sensation and once fully healed may not respond to temperature and touch as they do now. She has also a been informed that they may not look entirely normal and may have patchy hypopigmentation. She will not be able to breast feed with this technique. Liposuction axillary region 30 minutes She has expressed a desire to proceed with surgical correction. After fully discussing the options, she has opted to pursue a: Bilateral Breast Reduction Vertical, Pedicle x Bilateral Breast Reduction Fuentes, Pedicle with lateral chest liposuction and abdominoplasty with plication Bilateral Breast Reduction Fuentes, FNG Anticipate reduction of 600 cc on the right and 650 on the left BSA [employer]/[place] Medicaid All other / Schnur 1.95 855 575 1.96 870 She would like to proceed with surgery and I will inform her PCP of this plan. We have obtained photographs today. We will request insurance pre-determination. We will also provide her with pricing for the abdominoplasty and liposuction Duration: 4.5 hours 1 night overnight Timeframe: elective Coordinated with: None Procedure: BBR & Abdominoplasty with fascia plication, 30 minutes liposuction of axillary region CPT: 33822, 69793, 06196 ( 30 minutes) Surgical site: Breast/abdomen Side: Bilateral Anesthesia: General Follow up: 1 day for drain removal , 7 days with Mery Dimas PAT: No Medical clearance from PCP IErin am acting as scribe for Dr Marvin. All work documented was performed by Dr Marvin. ???I performed the above scribed service and agree with the accuracy of the note?? CARLEE MARVIN MD documented in this encounter Plan of Treatment Upcoming Encounters Date Type Department Care Team (Late st Contact Info) Description 03/13/2024 9:45 AM EDT Office Visit Dermatology at [place] [address] [place] [id number] Emiliano Salinas MD [address], [place] [address] documented as of this encounter Procedures Procedure Name Priority Date/Time Associated Diagnosis Comments REDUCTION MAMMOPLASTY, BILATERAL Routine 02/08/2015 11:26 AM EDT documented in this encounter Visit Diagnoses Diagnosis Macromastia Hypertrophy of breast documented in this encounter Care Teams Production Ski Repairer Relationship Specialty Start Date End Date Chantell Mims APRN PCP - General 07/09/13 05/09/16 documented as of this encounter
--- OUTSIDE RECORDS SUMMARY | 2024-02-15 13:18 | XMS_ITS | Encounter Summary ---
[place] [address] Care Team Providers Care Solar Installation Foreman Name Role Phone Franca Charles MD Primary Care Provider [phone] Reason for Visit * Reason Onset Date Comments Other 01/01/2011 travel follow-up Encounter Details Date Type Department Care Team (Late st Contact Info) Description 01/01/2011 Telephone [place] [id number] Danika Chin RN Other (travel follow-up) Social History Tobacco Use Types Packs/Day Years Used Date Smoking Tobacco: Never Assessed Sex and Gender Information Value Date Recorded Sex Assigned at Not on file Gender Identity Not on file Sexual Orientation Not on file documented as of this encounter Miscellaneous Notes * Telephone Encounter - Danika Chin RN - 01/01/2011 9:59 AM EDT Yessenia calls today to report she is still sick; Extreme fatigue, sleeping since back from trip to [place]; headache, lower stomach pain with constipation, bad breath; denies fever or other symptoms Did not seek care from PCP as instructed during phone conversation of 12/28/2010. Calling today to request another course of Cipro. A&P Yessenia traveled to [place] 11/27/2010 for three weeks, returning with diarrhea, abd cramping; she did complete one three -day course of Cipro upon return and did submit stool specimen's (12/25/2010) for giardia, crypto, O&P, culture (all negative) prior to starting this course of treatment. Called again on 12/28/2010 with continuing symptoms ; instructed to see PCP at that time I have let Yessenia know we will not be prescribing another course of Cipro and that she needs to be evaluated by MD. She prefers to be seen by ID, not her PCP. She has been scheduled with Dr. Hernandez for 01/04/2011 at 10 AM. Yessenia tells me she will call her PCP to see if she can be seen sooner documented in this encounter Plan of Treatment Upcoming Encounters Date Type Department Care Team (Late st Contact Info) Description 03/13/2024 9:45 AM EDT Office Visit Dermatology at [place] [address] [place] [address] Emiliano Salinas MD [address], [place] [address] documented as of this encounter Visit Diagnoses Not on filedocumented in this encounter Care Teams Solar Installation Foreman Relationship Specialty Start Date End Date Franca Charles MD [address] [place] [address] PCP - General 05/02/10 01/30/11 documented as of this encounter
--- OUTSIDE RECORDS SUMMARY | 2024-02-15 13:18 | XMS_ITS | Encounter Summary ---
Author Organization [facility] [place] [address] Care Team Providers Care Snow Fence Erector Name Role Phone Gareth Gramajo MD Primary Care Provider + Encounter Details Date Type Department Care Team (Late st Contact Info) Description 01/24/2012 Orders Only Obstetrics [place] [id number] Lien Patel RN Urge incontinence (Primary Dx) Social History Tobacco Use Types [...] 9:45 AM EDT Office Visit Dermatology at [place] [address] [place] [phone] Emiliano Salinas MD [address], [place] [address] documented as of this encounter Visit Diagnoses Diagnosis Urge incontinence- Primary documented in this encounter Care Teams Snow Fence Erector Relationship Specialty Start Date End Date Gareth Gramajo MD [address] [place] [address] PCP - General 04/24/11 07/08/13 documented as of this encounter
[2024-02-15] MEDS: Normal Saline - Diluent 50 ML VIAL IJ (13:31)
[2024-02-15] MEDS: Omnipaque 350 MG/ML 100 ML BTL IJ (13:32)
[2024-02-15 14:07] LABS: COVID-19 PCR Negative (Negative); Influenza A PCR Negative (Negative); Influenza B PCR Negative (Negative); RSV PCR Negative (Negative)
[2024-02-15 14:16] LABS: Source Nasopharynx
--- NOTE | 2024-02-15 14:36 | W.PM.HP.N ---
Date of service: 02/15/24 Time of Service: 15:57 Assessment and Plan Assessment and plan (1) Hyponatremia: Status: Acute Assessment and plan: -appears to be secondary to GI losses given reports of recent GI illness -urine Na, Cr, Osm not ordered prior to admisitration of hypertonic saline, but will still f/u results -given patient was also hypertensive on admission, this appears to be either euvolemic or hypervolemic severe symptomatic hypernatremia with an initial Na of 119 -s/p 100ml hypertonic saline in ED -f/u Q4hr BMP with goal Na correction of no more than 4-6mEq over first 24hrs -patient may need concurrent DDAVP if rate of Na increase if too rapid (2) Metabolic encephalopathy: Status: Acute Assessment and plan: -secondary to severe symptomatic hyponatremia as noted above -improving, though patient did repeat a could of questions more then once, so not completely back to baseline (3) Hypokalemia: Status: Acute Assessment and plan: -K in ED 2.8 -ordered for 40mEq IV -f/u with repeat BMP as noted above (4) Mixed anxiety and depressive disorder: Status: Acute Assessment and plan: -hold home diazepam while patient is encephalopathic (5) Hypothyroid: Status: Chronic Assessment and plan: -continue home synthroid -f/u TSH History of Present Illness History of Present Illness Chief Complaint: AMS Narrative: 74yo female with PMH anxiety and hypothyroidism was sent from her PCPs office for altered mental status. Patient had presented to her PCPs office earlier in the morning and was found to have speech difficulties and confusion with an initial concern for a stroke. The patient was eventually able to state that she recent got over a gastroenteritis and had diarrhea and vomiting for several days. She denied any DUARTE, lightheadedness, dizziness, fever, abdominal pain, chest pain, shortness of breath, current nausea, vomiting or diarrhea. In the emergency department the patient was noted to initially be confused but without any signs of focal neurological deficits. Stat head CT did not show any acute findings. However, BMP showed a Na of 119 which is drastically lower then patients baseline of 140's. Additionally, CT abdomen/pelvis, UA, EKG, glucose levels were all WNLs. Emergency room physician ordered 100ml of hypertonic saline and paged hospitalist for admission of a patient with severe symptomatic hyponatremia requiring hypertonic saline and ICU admission. Review of Systems All systems reviewed & are unremarkable except as noted in HPI and below [facility] All Active Problems (Updated 02/15/24 @ 16:10 by Dudley Heredia MD) Metabolic encephalopathy (Acute) Hypokalemia (Acute) Hyponatremia (Acute) Acute hyponatremia (Acute) Hypercalciuria (Acute ~01/2024) 01/22/24 Endocrinology Metatarsalgia of both feet (Acute) Hallux rigidus of right foot (Acute) Hallux rigidus, left foot (Acute) Osteopenia (Acute 12/27/22) DEXA at [facility] Chronic low back pain (Chronic) 10/24/22 Steroid injection Mixed anxiety and depressive disorder (Acute) Arthritis of carpometacarpal (CMC) joint of right thumb (Acute) 11/07/21 & 12/29/21 Arthroplasty at [facility] Chronic rhinitis (Acute) Imbalance (Acute) History of vertigo (Acute) Fracture of second metatarsal bone of left foot (Acute ~05/16/23) Leg length discrepancy (Acute) Neuroma of third interspace of left foot (Acute) Neuroma of third interspace of right foot (Acute) Achilles tendon contracture, bilateral (Acute) Pes planus of both feet (Acute) Plantar fasciitis of left foot (Acute) Mild anemia (Acute) Wears hearing aid in both ears (Acute) Venous incompetence (Acute) Symptomatic varicose veins of both lower extremities (Acute) Urge incontinence (Acute) Atrophic vaginitis (Acute) Familial hypercholesteremia (Acute) Otorrhea (Acute) Sleep apnea (Acute) Hypothyroid (Chronic) Allergic rhinitis due to food (Acute 10/12/13) Allergic rhinitis due to animal (cat) (dog) hair and dander (Acute 05/04/13) Abnormal auditory perception (Acute 09/06/14) Allergic rhinitis due to pollen (Acute 05/04/13) Chronic otitis media (Acute 12/19/15) Chronic otorrhea of both ears (Acute 10/08/16) Chronic sinusitis (Acute 05/17/14) Conductive hearing loss (Acute 12/19/15) Eustachian tube anomaly (Acute 05/17/14) Nasal congestion (Acute 09/06/14) Obstructive sleep apnea (Acute 05/17/14) Sensorineural hearing loss, bilateral (Acute 04/04/15) Wheezing (Acute 05/04/13) Vitamin D deficiency disease (Acute) Fatigue (Acute) Chronic diarrhea (Acute) Urinary incontinence (Acute) Heart murmur, systolic (Acute) Medical History Lyme disease (2020) Allergic rhinitis (05/04/13) Perforation of left tympanic membrane History of endometriosis Encounter for screening colonoscopy Allergic fungal sinusitis (05/04/13) Surgical History H/O abdominoplasty age 59 Status post breast reduction age 59 H/O nasal septoplasty age 39 H/O hysterectomy for benign disease History of knee replacement R History of hysterectomy History of section History of tonsillectomy History of appendectomy History of colonoscopy Family History Brother Anxiety Depression Niece Depression Nephew Depression Mother Heart disease Father Heart disease Parkinson disease Sister Heart disease 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 Pets and animals: No Do you think of yourself as: straight/heterosexual Current gender identity: female What is your relationship status?: How often do you talk on the phone with friends or family?: three or more times per week How often do you get together with friends or relatives?: three or more times per week Do you belong to any clubs or organized social groups?: yes Panel score (0-1 are the most socially isolated patients): 2 What type of physical activity do you participate in: walking and swimming Duration: 15-30 minutes/day Frequency: 3-4 times per week Jodie/Restorationism: Buddhist Agree to transfusion: No Seatbelt use: always Helmet use: Yes Drive intox or ride w/intox backhaul driver: No Do you feel safe at home: Yes Do you feel safe in your relationship?: Yes Meds Allergies and Home Medications Allergies Allergy/AdvReac Type Severity Reaction Status Date / Time venom-honey bee (bee venom Allergy Severe Anaphylaxsi Verified 12/16/23 15:24 (honey bee)) s fenofibrate Allergy Mild Other (See Verified 12/16/23 15:24 Comment) amoxicillin trihydrate (From Allergy Other (See Verified 12/16/23 15:24 Augmentin) Comment) atorvastatin calcium (From Allergy Other (See Verified 12/16/23 15:24 Lipitor) Comment) celecoxib (From Celebrex) Allergy Other (See Verified 12/16/23 15:24 Comment) diclofenac sodium (From Allergy Other (See Verified 12/16/23 15:24 Voltaren) Comment) potassium clavulanate (From Allergy Other (See Verified 12/16/23 15:24 Augmentin) Comment) rosuvastatin calcium (From Allergy Other (See Verified 12/16/23 15:24 Crestor) Comment) simvastatin (From Zocor) Allergy Other (See Verified 12/16/23 15:24 Comment) Sulfa (Sulfonamide Allergy Other (See Verified 12/16/23 15:24 Antibiotics) Comment) sulfamethoxazole (From Allergy Other (See Verified 12/16/23 15:24 Bactrim) Comment) trimethoprim (From Bactrim) Allergy Other (See Verified 12/16/23 15:24 Comment) morphine AdvReac Intermediate Nausea Verified 12/16/23 15:24 oxycodone HCl (From AdvReac Intermediate Nausea Verified 12/16/23 15:24 OxyContin) Penicillins AdvReac Intermediate Nausea Verified 12/16/23 15:24 Home Medications ?Medication ?Instructions ?Recorded ?Confirmed ?Type trazodone 50 mg tablet 150 mg PO QHS 03/16/19 01/24/24 History olopatadine 0.2 % eye drops 1 drp ophthalmic (eye) DAILY PRN 07/02/23 01/24/24 Rx itching #2.5 mL fexofenadine 180 mg tablet 180 mg PO DAILY 07/16/23 01/24/24 History diazepam 2 mg tablet (Valium) 2 mg PO DAILY PRN 09/11/23 01/24/24 History calcium carbonate-vitamin D3 PO 10/10/23 01/24/24 History levothyroxine 50 mcg tablet 50 mcg PO DAILY 10/10/23 01/24/24 History loratadine 10 mg tablet (Claritin) 10 mg PO DAILY 10/10/23 01/24/24 History epinephrine 0.3 mg/0.3 mL 0.3 mg (0.3 mL) IM DIRECTED PRN 10/29/23 01/24/24 Rx injection, auto-injector anaphylaxis #2 ea olopatadine 0.2 % eye drops 1 drp ophthalmic (eye) DAILY PRN 01/24/24 01/24/24 Rx (Pataday Once Daily Relief) itching #2.5 mL scopolamine base 1 mg over 3 days 1 patch transdermal Q3D PRN motion 01/24/24 01/24/24 Rx transdermal patch sickness #10 ea Exam Narrative Exam Narrative: well appearing female laying in bed in no acute distress, AOx4, heart RRR, lungs CTAB, abdomen soft, non-tender, non-distended, answers and asks questions appropriately but did repeat a couple of questions more then once indicating some short term memory loss Results Labs 02/15/24 12:13 02/15/24 12:13 Labs: Laboratory Results - last 24 hr 02/15/24 02/15/24 02/15/24 12:13 12:34 13:22 WBC 8.09 RBC 4.01 Hgb 12.6 Hct 34.0 L MCV 85 MCH 31.4 MCHC 37.1 H RDW 11.3 L Plt Count 406 H MPV 8.3 Immature Gran % 0.6 Neutrophils % 69.3 Lymphocytes % 19.9 Monocytes % 9.4 Eosinophils % 0.4 Basophils % 0.4 Nucleated RBC % 0.0 Absolute Neutrophils 5.61 Absolute Lymphocytes 1.61 Absolute Monocytes 0.76 Absolute Eosinophils 0.03 Absolute Basophils 0.03 PT 10.6 INR 1.1 APTT 23.1 L VBG pH 7.49 H VBG pCO2 33 L VBG pO2 76 VBG HCO3 25 VBG Total CO2 23 L VBG O2 Saturation 97 VBG Base Excess 2 Sodium 119 L* Potassium 2.8 L* Chloride 83 L Carbon Dioxide 24.1 Anion Gap 11.9 H BUN 16 Creatinine 0.8 Est GFR (CKD-EPI 2020) 76.79 Glucose 127 H Calcium 9.3 Magnesium 1.8 Total Bilirubin 0.79 AST 30 ALT 30 Alkaline Phosphatase 61 Ammonia 19 Troponin I High Sens 9 NT-Pro-B Natriuret Pep 127 Total Protein 7.6 Albumin 4.0 Lipase 34 TSH 2.22 Salicylates < 2.8 Acetaminophen < 2 Ethyl Alcohol < 3.0 COVID-19 Source Nasopharynx SARS-CoV-2 (PCR) Negative Influenza Type A (PCR) Negative Influenza Type B (PCR) Negative RSV (PCR) Negative Last Vital Signs Temp 98.2 F 02/15/24 12:04 Pulse 76 02/15/24 12:04 Resp 20 02/15/24 12:04 BP 178/65 H 02/15/24 12:04 Pulse Ox 94 02/15/24 12:04 Time Spent Time spent with Patient: >75 minutes Time was spent: preparing to see the patient(eg.review tests), obtaining and/or reviewing separately otained hiistory, ordering medications,tests, procedures, referring, communicating with other health medicare sales representative, indepentently interpreting results, counseling the patient and care coordination
[2024-02-15] MEDS: POTASSIUM CHLORIDE 10 MEQ/100 ML BAG 100 MEQ IVINF ×4 (14:51→20:05)
[2024-02-15 15:23] LABS: Troponin I 14 ng/L (4-51)
[2024-02-15] MEDS: SODIUM CHLORIDE 3% 100 ML 30 ML IV (16:13)
--- OUTSIDE RECORDS SUMMARY | 2024-02-15 16:34 | XMS_ITS | Encounter Summary ---
Author Organization [facility] Address [address] [place] [address] Care Team Providers Care Pharmacy Operations Manager Name Role Phone Chantell Sharma NP Primary Care Provider [phone] Chantell Sharma BIOLOGY PROFESSOR Unavailable [phone] Encounter Details Date Type Department Care Team (Late st Contact Info) Description 06/19/2019 Lab Requisition [facility] Pathology & Laboratory Medicine - [address] [address] Unknown, Provider, Social History Tobacco Use Types [...] ova and parasites seen. 06/22/2019 11:21 EST [facility] Feces 06/19/2019 8:00 EST 06/19/2019 21:45 EST Narrative [facility] - 06/22/2019 11:21 EST (If Cryptosporidium, Cyclospora, or Microsporidium are suspected, specific tests must be requested.) Single negative specimen does not rule out the possibility of a parasitic infection. Provider Unknown MICROBIOLOGY - GIRMA AZEVEDO ORDERABLES [facility] [address] [place] [address] documented in this encounter Visit Diagnoses Not on filedocumented in this encounter Care Teams Pharmacy Operations Manager Relationship Specialty Start Date End Date Chantell Sharma NP PCP - General 07/22/15 03/18/22 Chantell Sharma NP 07/22/15 03/18/22 documented as of this encounter
--- OUTSIDE RECORDS SUMMARY | 2024-02-15 16:34 | XMS_ITS | Encounter Summary ---
Author Organization [facility] [place] [address] Care Team Providers Care Nanotechnician Name Role Phone Dana Cedillo DO Primary Care Provider [phone] Encounter Details Date Type Department Care Team (Late st Contact Info) Description 02/13/2024 Telephone Cardiology at [address] [place] [address] Liam Noel MD [facility] [place] [address] Social History Tobacco Use Types Packs/Day Years [...] 9:45 AM EDT Office Visit Dermatology at [place] [address] [facility] [place] [address] Emiliano Salinas MD [address], [place] [address] documented as of this encounter Visit Diagnoses Not on filedocumented in this encounter Care Teams Nanotechnician Relationship Specialty Start Date End Date Dana Cedillo DO [address] [place] [address] PCP - General Family Medicine 10/16/23 documented as of this encounter
--- OUTSIDE RECORDS SUMMARY | 2024-02-15 16:34 | XMS_ITS | Referral Summary ---
Author Organization [facility] Address [address] [place] [address] Care Team Providers Care Web Merchandiser Name Role Phone Unavailable Primary Care Provider [...] Antibody Negative Negative 11/07/2020 10:56 EDT [facility] Blood VENOUS BLOOD / Unknown 11/04/2020 14:37 EDT 11/04/2020 21:45 EDT Provider Outr Resulting Lab CHEMISTRY & BLOOD GAS ORDERABLES [facility] [address] [place] [address] from Last 3 Months or Most Recently Relevant to Health Maintenance
--- OUTSIDE RECORDS SUMMARY | 2024-02-15 16:34 | XMS_ITS | Encounter Summary ---
Author Organization [facility] [place] [address] Care Team Providers Care Leather Case Finisher Name Role Phone CésarDana hamm Meyr ROCHE Primary Care Provider [phone] Reason for Visit * Reason Comments Medication Refill Encounter Details Date Type Department Care Team (Late st Contact Info) Description 02/08/2024 Refill Cardiology at [address] [address] Liam Noel MD [facility] [place] [address] Medication Refill Social History Tobacco Use Types [...] 9:45 AM EDT Office Visit Dermatology at [address] [address] Emiliano Salinas MD [address] [place] [address] RD, MANINDER [place] [address] documented as of this encounter Visit Diagnoses Diagnosis Mixed hyperlipidemia documented in this encounter Care Teams Leather Case Finisher Relationship Specialty Start Date End Date aDna Cedillo DO [address] [place] [address] PCP - General Family Medicine 10/16/23 documented as of this encounter
--- OUTSIDE RECORDS SUMMARY | 2024-02-15 16:34 | XMS_ITS | Clinical Summary ---
Author Organization [facility] [place] [address] Care Team Providers Care Assistant Professor Of Education Name Role Phone Everardorubio Dana Mery ROCHE Primary Care Provider [phone] Allergies Active Allergy Reactions Criticality Noted Date [...] 10/21/2022 Active fluticasone propionate (Flonase) 50 mcg/actuation [place], Suspension Every 12 hours. 10/17/2020 Ac tive [...] Care Team Description 02/13/2024 Telephone Cardiology at [address] [address] Liam Noel MD 02/08/2024 Refill Cardiology at [address] [address] Liam Noel MD Medication Refill 02/07/2024 Telephone Cardiology at [address] [address] Ashlyn Celis RN 02/06/2024 Travel 02/04/2024 Transcribe Orders Neurosurgery at [facility] [place] [address] Nell Fitch DO 01/28/2024 Orders Only Cardiology at [address] [address] Liam Noel MD Mixed hyperlipidemia 01/23/2024 Telephone Cardiology at [address] [address] Liam Noel MD 01/23/2024 Telephone Cardiology at [address] [address] Liam Noel MD 01/22/2024 4:00 PM EDT TH Visit (TeleHealth) Endocrinology at [place] [id number] Sam Dawson MD Hypercalciuria 01/09/2024 [place] [address] Raeann Ortega RN 01/09/2024 Telephone Cardiology at [address] [address] Liam Noel MD 11/26/2023 [place] [address] Raeann Ortega, RN Other from [...] 9:45 AM EDT Office Visit Dermatology at [place] [address] [facility] [place] [address] Emiliano Salinas MD [address], [place]AR[place] [address] Health Maintenance Due Date Last Done Comments [...] Whole Body (Generic) (10/18/2023 10:49 AM EDT) Node1 WORKSTATION ID [id number] [facility] Anatomical Region Laterality Modality C-spine, Hip N/A [...] BMD measurements and plots are available in mySBX under the imaging tab. Paper copies will be sent to providers without [employer] access. If you have received this report without the data sheet and do not have access to mySBX, please contact Radiology Information Officer at [phone] Saturday thru Saturday 8am-4pm. ? Bone Density Report ? Name: ?Yessenia Luong Age: ? 73 Sex: ? Female Ethnicity: ? White Date of : 1950 Referring Provider: SAM DAWSON Study: Bone densitometry was performed. Model: Training Intelligence (S/N [id number]) Selltag version 13.6.0.5 Exam Date: October 18, 2023 Accession number: [id number] Bone Density: Region ? BMD ?T-score ??Z-score [...] who have questions please contact the health medicare biller that requested your imaging first. ? Narrative [...] left forearm and left hip using the Incentive Targeting A system. COMPARISON: None FINDINGS: Femoral neck [...] spine, left forearm and lefthip using the Holo[employer] Horizon A system. COMPARISON: None FINDINGS: Femoral [...] BMD measurements and plots are available in [employer]under the imaging tab. Paper copies will be sent to providers without mySBX access.If you have received this report without the data sheet and do not haveaccess to E-, please contact Radiology Information Officer at [phone] Saturday thruFriday 8am-4pm. Bone Density Report Name: Yessenia Luong Age: 73 Sex: Female Ethnicity: White Date of : 1950 Referring Provider: SAM DAWSON Study: Bone densitometry was performed. Model: Training Intelligence (S/N [id number]) Selltag version 13.6.0.5 Exam Date: October 18, 2023 Accession number: [id number] Bone Density: Region BMD T-score Z-score AP [...] patients who have questions please contactthe health medicare biller that requested your imaging first. Sam Dawson MD IMG DEXA ORDERABLE S * Comprehensive metabolic panel (non-fasting) (07/30/2023 11:32 AM EST) Glucose 98 65 - 199 mg/dL [facility] Comment:Diabetes: >=200 mg/d L plus symptoms Blood Urea Nitrogen 10 8 - 18 mg/dL [facility] Creatinine 0.75 0.70 - 1.20 mg/dL [facility] Sodium 140 135 - 145 mmol/L [facility] Potassium 4.6 3.5 - 5.0 mmol/L [facility] Comment: Please note: ??Patients with WBC >100,000 may have falsely elevated Potassium levels. ??For accurate Potassium quantification in these patients send serum separator tube (gold top) for subsequent determinations. ??Contact the Clinical Chemistry Laboratory if there are any questions. Chloride 101 98 - 107 mmol/L [facility] Carbon Dioxide 28 22 - 31 mmol/L [facility] Anion Gap 11 5 - 15 mmol/L [facility] Calcium 10.1 8.5 - 10.5 mg/dL [facility] Protein, Total 7.4 6.1 - 8.0 g/dL [facility] Albumin 4.5 3.2 - 5.2 g/dL [facility] Aspartate Aminotransferase 22 0 - 30 unit/L [facility] Alanine Aminotransferase 18 0 - 30 unit/L [facility] Alkaline Phosphatase 77 35 - 105 unit/L [facility] Bilirubin, Total 0.4 0.2 - 1.3 mg/dL [facility] Est Glomerular Filtration Rate 83 >=60 mL/min/1. 73 m?? [facility] Comment: This patient's estimated GFR was [...] Lab Sam Dawson MD CHEMISTRY ORDERABL ES [facility] [place] [address] from Last 3 Months or Most Recently Relevant to Health Maintenance Advance Directives * Full Code (Latest Code Status on File) Date Activated Date Inactivated Comments 06/14/2015 4:01 PM 06/15/2015 7:08 PM Question Answer Comments Does patient have capacity to make decision: Yes Care Teams Assistant Professor Of Education Relationship Specialty Start Date End Date Dana Cedillo DO [address] [place] [address] PCP - General Family Medicine 10/16/23
--- OUTSIDE RECORDS SUMMARY | 2024-02-15 16:34 | XMS_ITS | Encounter Summary ---
Author Organization [facility] [place] [address] Care Team Providers Care Word Processing Specialist Name Role Phone Dana Cedillo DO Primary Care Provider [phone] Encounter Details Date Type Department Care Team [...] 9:45 AM EDT Office Visit Dermatology at [place] [address] [place] [phone] Emiliano Salinas MD [address], [place] [address] documented as of this encounter Visit Diagnoses Not on filedocumented in this encounter Care Teams Word Processing Specialist Relationship Specialty Start Date End Date Dana Cedillo DO [address] [place] [address] PCP - General Family Medicine 10/16/23 documented as of this encounter
--- OUTSIDE RECORDS SUMMARY | 2024-02-15 16:34 | XMS_ITS | Encounter Summary ---
Author Organization [facility] Address [address] [place] [address] Care Team Providers Care Frame Coverer Name Role Phone Unavailable Primary Care Provider Unavailabl e Encounter Details Date Type Department Care Team (Late st Contact Info) Description 04/09/2002 Results Only [facility] - Maple conversion [address] [place] [address] Neisha Schulte, MATERIALS PLANNER [address] [place] [address] Social History Tobacco Use Types [...] ? YESSENIA LUONG ? Accession #: ? [id number] : ? 1950 (Age: 52) ??F ?Collect Date: ? 04/09/2002 Location: ? [facility] ? Receive Date: ? 04/13/2002 Provider: ?NEISHA SCHULTE MATERIALS PLANNER Copy to: ? Specimen/Source: ?ThinPrep Pap Test, [...] Report MARTHA THOMPSON 04/09/2002 04/13/2002 Neisha Schulte MATERIALS PLANNER PATHOLOGY ORDERABLE [facility] [address] [place] [address] documented in this encounter Visit Diagnoses Not on filedocumented in this encounter
--- OUTSIDE RECORDS SUMMARY | 2024-02-15 16:34 | XMS_ITS | Encounter Summary ---
Author Organization [facility] Address [address] [place] [address] Care Team Providers Care Crawler Crane Operator Name Role Phone Chantell Sharma NP Primary Care Provider [phone] Chantell Sharma NP Unavailable Encounter Details Date Type Department Care Team (Late st Contact Info) Description 11/04/2020 Lab Requisition [facility] Pathology & Laboratory Medicine - [address] [address] Outr Resulting Lab, Provider Social History Tobacco [...] C Antibody Negative Negative 11/07/2020 10:56 EDT [facility] Blood VENOUS BLOOD / Unknown 11/04/2020 14:37 EDT 11/04/2020 21:45 EDT Provider Outr Resulting Lab CHEMISTRY & BLOOD GAS ORDERABLES [facility] [address] [place] [address] documented in this encounter Visit Diagnoses Not on filedocumented in this encounter Care Teams Crawler Crane Operator Relationship Specialty Start Date End Date Chantell Sharma NP PCP - General 07/22/15 03/18/22 Chantell Sharma NP 07/22/15 03/18/22 documented as of this encounter
--- OUTSIDE RECORDS SUMMARY | 2024-02-15 16:34 | XMS_ITS | Encounter Summary ---
Author Organization [facility] Address [address] [place] [address] Care Team Providers Care Syrup Shed Supervisor Name Role Phone Unavailable Primary Care Provider Unavailabl e Encounter Details Date Type Department Care Team (Late st Contact Info) Description 08/05/2023 Lab Requisition [facility] Pathology & Laboratory Medicine - [facility] [address] [place] [address] Outr Resulting Lab, Provider Social History Tobacco [...] Urine 7.4 See Note mg/dL 08/06/2023 9:08 [facility] Comment: NOTE: Reference range not established Calcium, Urine 24 hr 287 100 - 300 mg/24hr 08/06/2023 9:08 [facility] Comment:Reference range assu mes a normal daily intake of calcium between 600 - 800 mg/day. Urine Volume 3,875 mL 08/06/2023 9:08 [facility] Urine Collection Period 24.0 Hours 08/06/2023 9:08 [facility] Urine 24 HOUR URINE SPECIMEN / Unknown 08/05/2023 8:00 EST 08/05/2023 21:36 EST Provider Outr Resulting Lab URINALYSIS O RDERABLES [facility] [address] [place] [address] documented in this encounter Visit Diagnoses Not on filedocumented in this encounter
--- OUTSIDE RECORDS SUMMARY | 2024-02-15 16:34 | XMS_ITS | Clinical Summary ---
Author Organization [facility] Address [address] [place] [address] Care Team Providers Care Ground Water Technician Name Role Phone Unavailable Primary Care Provider [...] Negative Negative 11/07/2020 10:56 EDT [facility] Blood VENOUS BLOOD / Unknown 11/04/2020 14:37 EDT 11/04/2020 21:45 EDT Provider Outr Resulting Lab CHEMISTRY & BLOOD GAS ORDERABLES [facility] [address] [place] [address] from Last 3 Months or Most Recently Relevant to Health Maintenance
--- OUTSIDE RECORDS SUMMARY | 2024-02-15 16:34 | XMS_ITS | Encounter Summary ---
Author Organization [facility] [place] [address] Care Team Providers Care Painter Airbrush Name Role Phone EverardoDana bergeron Mery ROCHE Primary Care Provider [phone] Encounter Details Date Type Department Care Team (Late st Contact Info) Description 02/07/2024 Telephone Cardiology at [address] [address] Ashlyn Celis, RN Social History [...] Nexletol Approved prior auth Reference PA number [id number] documented in this encounter Plan of Treatment Upcoming Encounters Date Type Department Care Team (Late st Contact Info) Description 03/13/2024 9:45 AM EDT Office Visit Dermatology at [place] [address] [facility] [place] [address] Emiliano Salinas MD [address], B[place]AR[place] [address] documented as of this encounter Visit Diagnoses Not on filedocumented in this encounter Care Teams Painter Airbrush Relationship Specialty Start Date End Date Dana Cedillo DO [address] [place] [address] PCP - General Family Medicine 10/16/23 documented as of this encounter
--- OUTSIDE RECORDS SUMMARY | 2024-02-15 16:34 | XMS_ITS | Encounter Summary ---
Author Organization [facility] Address [address] [place] [address] Care Team Providers Care Knowledge Management Advisor Name Role Phone Chantell Sharma NP Primary Care Provider [phone] Elier Alvarez MD Unavailable Unavailabl e Reason for Visit * Reason Onset Date Comments Other 07/21/2015 Encounter Details Date Type Department Care Team (Late st Contact Info) Description 07/21/2015 Telephone [facility] Dermatology 3rd Floor [facility] [address] [place] [address] Isaak Lloyd MD Other Social History Tobacco [...] on filedocumented in this encounter Care Teams Knowledge Management Advisor Relationship Specialty Start Date End Date Chantell Sharma NP PCP - General 07/21/15 07/21/15 Elier Alvarez MD 07/21/15 07/21/15 documented as of this encounter
--- OUTSIDE RECORDS SUMMARY | 2024-02-15 16:34 | XMS_ITS | Encounter Summary ---
Author Organization [facility] Address [address] [place] [address] Care Team Providers Care It Compliance Manager Name Role Phone Unavailable Primary Care Provider Unavailabl e Encounter Details Date Type Department Care Team (Late st Contact Info) Description 06/04/2023 Lab Requisition [facility] Pathology & Laboratory Medicine - [address] [address] Outr Resulting Lab, Provider Social History Tobacco [...] 201 - 352 mg/dL 06/05/2023 8:56 EST [facility] Blood VENOUS BLOOD / Unknown 06/04/2023 9:45 EST 06/04/2023 21:09 EST Provider Outr Resulting Lab CHEMISTRY & BLOOD GAS ORDERABLES [facility] [address] [place] [address] documented in this encounter Visit Diagnoses Not on filedocumented in this encounter
--- OUTSIDE RECORDS SUMMARY | 2024-02-15 16:34 | XMS_ITS | Encounter Summary ---
Author Organization [facility] Address [address] [place] [address] Care Team Providers Care Director Of Residence Life Name Role Phone Unavailable Primary Care Provider Unavailabl e Encounter Details Date Type Department Care Team (Late st Contact Info) Description 03/20/2023 Lab Requisition [facility] Pathology & Laboratory Medicine - [facility] [address] [place] [address] Outr Resulting Lab, Provider Social History Tobacco [...] IGA <1.2 <4.0 U/mL 03/21/2023 12:51 EDT [facility] Comment: A negative result may be due to IgA deficiency and does not rule out celiac disease. ? Negative: ??<4.0 U/mL ? Weak Positive: ??4.0 - 10.0 U/mL ? Positive: ??>10.0 U/mL Results were obtained with the [employer] Lite R h-tTG IgA MOHAMUD assay on the [employer]nex DSX. IgA 243 85 - 499 mg/dL 03/21/2023 12:51 EDT [facility] Celiac Disease Interpretation Negative Serology. Celiac disease unlikely. Approximately 10% of patients with celiac disease are seronegative. Patients who are already adhering to a gluten-free diet may also be seronegative. If celiac disease is highly clinically suspected, referral to gastroenterology for additional evaluation is recommended. 03/21/2023 12:51 EDT [facility] Blood VENOUS BLOOD / Unknown 03/20/2023 11:00 EDT 03/20/2023 21:56 EDT Provider Outr Resulting Lab IMMUNOLOGY A ND SEROLOGY ORDERABLES [facility] [address] [place] [address] documented in this encounter Visit Diagnoses Not on filedocumented in this encounter
--- OUTSIDE RECORDS SUMMARY | 2024-02-15 16:34 | XMS_ITS | Encounter Summary ---
Author Organization [facility] Address [address] [place] [address] Care Team Providers Care Mangle Operator Garments Name Role Phone Unavailable Primary Care Provider Unavailabl e Encounter Details Date Type Department Care Team (Late st Contact Info) Description 09/12/2005 Results Only [facility] [address] [place] [address] Neisha Castaneda MD [address] [place] [address] [place] [address] Social History Tobacco Use Types Packs/Day Years [...] ? YESSENIA LUONG ? Accession #: ? [id number] : ? 1950 (Age: 55) ??F ?Collect Date: ? 09/12/2005 Location: ? [facility] ? Receive Date: ? 09/13/2005 Provider: ?NEISHA CASTANEDA MD Copy to: ? Specimen/Source: ?ThinPrep Pap Test, Cervix/Endocervix, processed on [employer]Tasks ThinPrep Imaging System, with manual evaluation Last [...] Castaneda MD PATHOLOGY ORDERABLES Performing Organization Address City/State/[facility] Co de Phone Number MARTHA THOMPSON [address] [place] [address] documented in this encounter Visit Diagnoses Not on filedocumented in this encounter
--- OUTSIDE RECORDS SUMMARY | 2024-02-15 16:34 | XMS_ITS | Encounter Summary ---
Author Organization [facility] Address [address] [place] [address] Care Team Providers Care Painter Touch Up Name Role Phone Chantell Sharma ASSEMBLER DC FIELD RING Primary Care Provider [phone] Chantell Sharma ASSEMBLER DC FIELD RING Primary Care Provider [phone] Elier Alvarez MD Unavailable Unavailabl e Chantell Sharma NP Unavailable [phone] Reason for Visit * Reason Onset Date Comments Other 07/21/2015 Encounter Details Date Type Department Care Team (Late st Contact Info) Description 07/21/2015 Telephone [facility] Dermatology 3rd Floor [address] [address] Isaak Lloyd MD Other Social History Tobacco [...] filedocumented in this encounter Care Teams Painter Touch Up Relationship Specialty Start Date End Date Chantell Sahrma NP PCP - General 07/21/15 07/21/15 Chantell Sharma NP PCP - General 07/22/15 03/18/22 Elier Alvarez MD 07/21/15 07/21/15 Chantell Sharma NP 07/22/15 03/18/22 documented as of this encounter
--- OUTSIDE RECORDS SUMMARY | 2024-02-15 16:34 | XMS_ITS | Encounter Summary ---
Author [facility] [place] [address] Care Team Providers Care Art Gilder Name Role Phone CésarDana hamm Mery ROCHE Primary Care Provider [phone] Encounter Details Date Type Department Care Team (Late st Contact Info) Description 02/04/2024 Transcribe Orders Neurosurgery at [facility] [address] [place] [address] Nell Fitch [address] [facility] [address] [place] [address] Social History Tobacco Use Types Packs/Day Years [...] AM EDT Office Visit Dermatology at [address] [place] [address] Emiliano Salinas MD [address], [place] [address] documented as of this encounter Visit Diagnoses Not on filedocumented in this encounter Care Teams Art Gilder Relationship Specialty Start Date End Date Dana Cedillo DO [address] [place] [address] PCP - General Family Medicine 10/16/23 documented as of this encounter
--- OUTSIDE RECORDS SUMMARY | 2024-02-15 16:35 | XMS_ITS | Encounter Summary ---
Author Organization [facility] Address [facility] [place] [address] Care Team Providers Care Catalog Library Assistant Name Role Phone Veronica Barrios KEISHA Primary Care Provider Reason for Visit * Reason Comments Skin Check Encounter Details Date Type Department Care Team (Late st Contact Info) Description 08/30/2022 8:30 AM EDT Office Visit Dermatology at [facility] [address] [place] [address] Star Moura MD [facility] [address] LORRIE [place] [address] Multiple benign melanocytic nevi of upper and [...] education Hobbies: Other: Yessenia grew up in [place], [place]. Pre-Procedure Questions Details Allergy to [...] on the face. Will be sent to [facility]. Cost is $60 for [...] Start Rx: Minoxidil 1.25mg QD (compounded by [facility]). Counseled that minoxidil can initially increase hair [...] 1 year for FSE []Note routed to service secretary [x]Recall placed in scheduling system []Appointment scheduled at checkout Scribe attestation: TAQUERIA Vang has performed the documentation for this encounter in the presence of and acting as a scribe for Star Moura MD. I performed the above scribed service and agree with the accuracy of the documentation in this encounter. Reviewed and signed by: Star Moura MD Dermatology [facility] documented in this encounter Plan of Treatment Upcoming Encounters Date Type Department Care Team (Late st Contact Info) Description 03/13/2024 9:45 AM EDT Office Visit Dermatology at [place] [address] [place] [address] Emiliano Salinas MD [address] [facility], [place] [address] documented as of this encounter Visit Diagnoses Diagnosis Multiple benign melanocytic nevi of upper and lower extremities and trunk Rhytides Other specified hypertrophic and atrophic condition of skin Lentigines Other dyschromia Eczema craquele Other specified disease of sebaceous glands Holt angioma Nevus, non-neoplastic Androgenetic alopecia Other alopecia documented in this encounter Care Teams Catalog Library Assistant Relationship Specialty Start Date End Date Veronica Barrios APRN [address] [place] [address] PCP - General Family Medicine 08/27/22 03/17/23 documented as of this encounter
--- OUTSIDE RECORDS SUMMARY | 2024-02-15 16:35 | XMS_ITS | Encounter Summary ---
Author Organization [facility] [place] [address] Care Team Providers Care Medical Sales Associate Name Role Phone Dana Cedillo DO Primary Care Provider [phone] Encounter Details Date Type Department Care Team [...] 9:45 AM EDT Office Visit Dermatology at [place] [address] [facility] [address] [facility] [address] [place] [address] Emiliano Salinas MD [address], BAKARI [place] [address] documented as of this encounter Visit Diagnoses Not on filedocumented in this encounter Care Teams Medical Sales Associate Relationship Specialty Start Date End Date Dana Cedillo DO [address] [place] [address] PCP - General Family Medicine 10/16/23 documented as of this encounter
--- OUTSIDE RECORDS SUMMARY | 2024-02-15 16:35 | XMS_ITS | Encounter Summary ---
Author Organization [facility] [place] [address] Care Team Providers Care Doorperson Or Luggage Porter Name Role Phone Veronica Barrios APRN Primary Care Provider [phone] Reason for Visit * Reason Comments Establish Care Hyperlipidemia * Consultation (Urgent) - Closed Specialty Diagnoses / Procedures Referred By Veronica brantley Referred To Contact Cardiology Diagnoses Familial hypercholesterolemia Familial hypercholesterolemia. Veronica Barrios APRN [address] [place] [address] [facility] Cardiology [address] [place] [address] Referral ID Status Reason Start Date Expiration Date V isits Requested Visits Authorized [id number] Closed Consult, Test & Treat PCP Updated and/or Approved 08/27/2022 08/27/2023 6 6 Encounter Details Date Type Department Care Team (Late st Contact Info) Description 10/29/2022 1:20 PM EDT Office Visit Cardiology at [address] [address] Liam Noel MD [facility] [place] [address] Mixed hyperlipidemia Social History Tobacco [...] recorded. ??? fluticasone propionate (Flonase) 50 mcg/actuation Mullens, Suspension EVERY 12 HOURS ??? icosapent ethyL [...] 9:45 AM EDT Office Visit Dermatology at [address] [place] [address] Emiliano Salinas MD [address] [facility], [place] [address] documented as of this encounter Visit Diagnoses Diagnosis Mixed hyperlipidemia documented in this encounter Care Teams Doorperson Or Luggage Porter Relationship Specialty Start Date End Date Veronica Barrios APRN [address] [place] [address] PCP - General Family Medicine 08/27/22 03/17/23 documented as of this encounter
--- OUTSIDE RECORDS SUMMARY | 2024-02-15 16:35 | XMS_ITS | Encounter Summary ---
Author Organization [facility] [place] [address] Care Team Providers Care Clinical Informatics Director Name Role Phone Veronica Barrios KEISHA Primary Care Provider Reason for Visit * Reason Comments Skin Lesion Encounter Details Date Type Department Care Team (Late st Contact Info) Description 08/30/2022 9:00 AM EDT Office Visit Dermatology at [facility] [address] [place] [address] Star Moura MD [facility] [address] [place] [address] Encounter for cosmetic laser procedure Social History [...] and signed by: Star Moura MD Dermatology [facility] documented in this encounter Plan of Treatment Upcoming Encounters Date Type Department Care Team (Late st Contact Info) Description 03/13/2024 9:45 AM EDT Office Visit Dermatology at [place] [address] [place] [address] Emiliano Salinas MD [address] [facility], [place] [address] documented as of this encounter Visit Diagnoses Diagnosis Encounter for cosmetic laser procedure documented in this encounter Care Teams Clinical Informatics Director Relationship Specialty Start Date End Date Veronica Barrios APRN [address] [place] [address] PCP - General Family Medicine 08/27/22 03/17/23 documented as of this encounter
--- OUTSIDE RECORDS SUMMARY | 2024-02-15 16:35 | XMS_ITS | Encounter Summary ---
Author Organization [facility] Address [facility] [place] [address] Care Team Providers Care Business Transformation Consultant Name Role Phone Guerline Quigley Rodolfo VALDES Primary Care Provider [phone] Encounter Details Date Type Department Care Team (Late st Contact Info) Description 07/18/2023 Telephone Cardiology at [address] [place] [address] Liam Noel MD [facility] [place] [address] Social History Tobacco Use Types Packs/Day Years [...] acid lab work orders [facility] documented in this encounter Plan of Treatment Upcoming Encounters Date Type Department Care Team (Late st Contact Info) Description 03/13/2024 9:45 AM EDT Office Visit Dermatology at [place] [address] [facility] [place] [address] Emiliano Salinas MD [address], [place] [address] documented as of this encounter Visit Diagnoses Diagnosis Mixed hyperlipidemia documented in this encounter Care Teams Business Transformation Consultant Relationship Specialty Start Date End Date Guerline Quigley APRN PCP - General Family Medicine 03/18/23 09/29/23 documented as of this encounter
--- OUTSIDE RECORDS SUMMARY | 2024-02-15 16:35 | XMS_ITS | Encounter Summary ---
Author Organization [facility] [place] [address] Care Team Providers Care Steam Shovel Operator Name Role Phone Dana Cedillo Primary Care Provider [phone] Encounter Details Date Type Department Care Team (Late st Contact Info) Description 01/28/2024 Orders Only Cardiology at [address] [place] [address] Liam Noel MD [facility] [place] [address] Mixed hyperlipidemia Social History Tobacco Use Types [...] AM EDT Office Visit Dermatology at [address] [place] [address] Emiliano Salinas MD [address] [facility] [address], [place] [address] Scheduled Orders Name Type Priority Associated Diagnoses Orde r Schedule Lipid Panel (Reflex Direct LDL) Lab Routine Mixed hyperlipidemia Expected: 01/28/2024, Expires: 01/27/2025 Uric acid Lab Routine Mixed hyperlipidemia Expected: 01/28/2024, Expires: 07/29/2024 documented as of this encounter Visit Diagnoses Diagnosis Mixed hyperlipidemia documented in this encounter Care Teams Steam Shovel Operator Relationship Specialty Start Date End Date Dana Cedillo DO [address] [place] [address] PCP - General Family Medicine 10/16/23 documented as of this encounter
--- OUTSIDE RECORDS SUMMARY | 2024-02-15 16:35 | XMS_ITS | Encounter Summary ---
[place] [address] Care Team Providers Care Test Borer Helper Name Role Phone Veronica Barrios KEISHA Primary Care Provider Reason for Visit * Reason Comments Medication Management Encounter Details Date Type Department Care Team (Late st Contact Info) Description 09/27/2022 Specialty [place] [address] Louie Sosa RPH Social History Tobacco Use [...] Transfer of Care Specialty Pharmacy Consultation; Louie Soas RPH Comprehensive Medication Management (CMM) Yessenia Arnoldnavin [address] [facility] [address] Telephone Information: Work Phone Not on file. [...] were made at the appointment and that [facility] isproviding recommendations (summary located at [...] 9:45 AM EDT Office Visit Dermatology at [place] 580 [facility] [place] [address] Emiliano Salinas MD 580 [facility], [place] [address] documented as of this encounter Visit Diagnoses Not on filedocumented in this encounter Care Teams Test Borer Helper Relationship Specialty Start Date End Date Veronica Barrios APRN [address] [place] [address] PCP - General Family Medicine 3/20/23 10/8/23 documented as of this encounter
--- OUTSIDE RECORDS SUMMARY | 2024-02-15 16:35 | XMS_ITS | Encounter Summary ---
[place] [address] Care Team Providers Care Tower Loader Operator Name Role Phone Mary Altamirano MD Primary Care Provider Reason for Visit * Reason Onset Date Comments Medication Refill 08/13/2022 Repatha 90 day supply requestPharmacy change to [facility] Encounter Details Date Type Department Care Team (Late st Contact Info) Description 08/13/2022 Refill Cardiology at [address] [address] Ana Horan sales and support center agent Refill (Repatha 90 day supply request/Pharmacy change to [facility] in [facility]/) Social History Tobacco Use Types Packs/Day Years [...] 9:45 AM EDT Office Visit Dermatology at [place] [address] [facility] [place] [address] Emiliano Salinas MD [address] [facility] [address], [place] [address] documented as of this encounter Visit Diagnoses Diagnosis Familial hypercholesterolemia Pure hypercholesterolemia documented in this encounter Care Teams Tower Loader Operator Relationship Specialty Start Date End Date Mary Altamirano MD PCP - General Family Medicine 01/26/22 08/26/22 documented as of this encounter
--- OUTSIDE RECORDS SUMMARY | 2024-02-15 16:35 | XMS_ITS | Encounter Summary ---
Author Organization [facility] [place] [address] Care Team Providers Care Cell Stripper Final Name Role Phone Dana Cedillo DO Primary Care Provider [phone] Encounter Details Date Type Department Care Team (Late st Contact Info) Description 09/30/2023 11:00 AM EDT Office [place] [id number] Sam Dawson MD [facility] [place] [address] Pathological fracture of left foot due to [...] and urine test in 1 month at [place] - once I get the results we will decide how much Ca and vit D to take - DXA scheduling at [facility] [phone] documented in this encounter Progress Notes * [...] [x] 701-900 mg [] 901-1100 mg [] 9044-5234 mg [] 6103-9604 mg [] Above 1500 mg ROS: Constitutional: [...] WITH FOOD fluticasone propionate (Flonase) 50 mcg/actuation [place], Suspension Every 12 hours. 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 Social [...] 1.07 mmol/L 0.82 Last DXA scan 12/27/2022 ([facility]): Assessment: Yessenia Luong is a 73 [...] bone density scan to be done at [facility] where we can do a TBS score [...] and urine test in 1 month at [facility] Orders Placed This Encounter Procedures DXA Central Spine, Hip, and/or Whole Body (Generic) Calcium, urine, 24 hour Creatinine, urine, 24 hour Vitamin D, 25-Hydroxy PTH Albumin Level Calcium - DXA scan with TBS score to be done at [facility] - once I get the results we [...] 9:45 AM EDT Office Visit Dermatology at [place] [address] [place] [address] Emiliano Salinas MD [address], BAKAR[place] [address] Scheduled Orders Name Type Priority Associated Diagnoses [...] Whole Body (Generic) (10/18/2023 10:49 AM EDT) RVX WORKSTATION ID [id number] RAD Anatomical Region Laterality Modality C-spine, Hip [...] BMD measurements and plots are available in [employer] under the imaging tab. Paper copies will be sent to providers without [employer] access. If you have received this report without the data sheet and do not have access to [employer]), please contact Radiology Log Preparer at [phone] Saturday thru Saturday 8am-4pm. ? Bone Density Report ? Name: ?Yessenia Luong Age: ? 73 Sex: ? Female Ethnicity: ? White Date of : 1950 Referring Provider: SAM DAWSON Study: Bone densitometry was performed. Model: [employer] Nova (S/N [id number]) SW version 13.6.0.5 Exam Date: October 18, 2023 Accession number: [id number] Bone Density: Region ? BMD ?T-score ??Z-score [...] who have questions please contact the health lawn care professional that requested your imaging first. ? Electronically signed by: Luna Curtis MD, [facility] ([phone]), at 10/18/2023 1:08 PM Narrative 10/18/2023 1:08 [...] left forearm and left hip using the [employer] Horizon A system. COMPARISON: None FINDINGS: Femoral [...] BMD measurements and plots are available in [employer] the imaging tab. Paper copies will be sent to providers without [employer]) access.If you have received this report without the data sheet and do not haveaccess to [employer]), please contact Radiology Log Preparer at [phone] Saturday thruFriday 8am-4pm. Bone Density Report Name: Yessenia Luong Age: 73 Sex: Female Ethnicity: White Date of : 1950 Referring Provider: SAM DAWSON Study: Bone densitometry was performed. Model: [employer] (S/N [id number]) SW version 13.6.0.5 Exam Date: October 18, 2023 Accession number: [id number] Bone Density: Region BMD T-score Z-score AP [...] patients who have questions please contactthe health lawn care professional that requested your imaging first. 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
--- OUTSIDE RECORDS SUMMARY | 2024-02-15 16:35 | XMS_ITS | Encounter Summary ---
Author Organization [facility] [place] [address] Care Team Providers Care Communications Designer Name Role Phone Dana Cedillo DO Primary Care Provider [phone] Encounter Details Date Type Department Care Team (Late st Contact Info) Description 01/23/2024 Telephone Cardiology at [address] [place] [address] Liam Noel MD [facility] [place] [address] Social History Tobacco Use Types Packs/Day Years [...] Per Yessenia she is seeing aphysician [facility] for her Lyme disease and she [...] 9:45 AM EDT Office Visit Dermatology at [place] [address] [place] [address] Emiliano Salinas MD [address], BAKARI [place] [address] documented as of this encounter Visit Diagnoses Not on filedocumented in this encounter Care Teams Communications Designer Relationship Specialty Start Date End Date Dana Cedillo DO [address] [place] [address] PCP - General Family Medicine 10/16/23 documented as of this encounter
--- OUTSIDE RECORDS SUMMARY | 2024-02-15 16:35 | XMS_ITS | Encounter Summary ---
Author Organization [facility] [place] [address] Care Team Providers Care Professor Of Religion Name Role Phone Guerline Quigley Rodolfo VALDES Primary Care Provider [phone] Encounter Details Date Type Department Care Team (Late st Contact Info) Description 09/30/2023 Telephone Cardiology at [address] [place] [address] Liam Noel MD [facility] [place] [address] Social History Tobacco Use Types Packs/Day Years [...] 9:45 AM EDT Office Visit Dermatology at [place] [address] [facility] [place] [address] Emiliano Salinas MD [address], [place]IND[place] [address] documented as of this encounter Visit Diagnoses Not on filedocumented in this encounter Care Teams Professor Of Religion Relationship Specialty Start Date End Date Guerline Quigley APRN PCP - General Family Medicine 09/30/23 10/15/23 documented as of this encounter
--- OUTSIDE RECORDS SUMMARY | 2024-02-15 16:35 | XMS_ITS | Encounter Summary ---
Author Organization [facility] [place] [address] Care Team Providers Care Market Research Worker Name Role Phone Guerline Quigley APRN Primary Care Provider [phone] Encounter Details Date Type Department Care Team [...] 9:45 AM EDT Office Visit Dermatology at [place] [address] [place] [address] Emiliano Salinas MD [address], [place] [address] documented as of this encounter Visit Diagnoses Not on filedocumented in this encounter Care Teams Market Research Worker Relationship Specialty Start Date End Date Guerline Quigley APRN PCP - General Family Medicine 03/18/23 09/29/23 documented as of this encounter
--- OUTSIDE RECORDS SUMMARY | 2024-02-15 16:35 | XMS_ITS | Encounter Summary ---
Author Organization [facility] [place]ario [place] [address] Care Team Providers Care Ad Compositor Name Role Phone Veronica Brarios APRN Primary Care Provider [phone] Encounter Details Date Type Department Care Team [...] 9:45 AM EDT Office Visit Dermatology at [place] [address] [place] [address] Emiliano Salinas MD [address], [place] [address] documented as of this encounter Visit Diagnoses Not on filedocumented in this encounter Care Teams Ad Compositor Relationship Specialty Start Date End Date Veronica Barrios APRN [address] [place] [address] PCP - General Family Medicine 08/27/22 03/17/23 documented as of this encounter
--- OUTSIDE RECORDS SUMMARY | 2024-02-15 16:35 | XMS_ITS | Encounter Summary ---
Author Organization [facility] [place] [address] Care Team Providers Care Motors Assembler Name Role Phone Guerline Quigley Rodolfo VALDES Primary Care Provider [phone] Encounter Details Date Type Department Care Team (Late st Contact Info) Description 08/06/2023 Refill Cardiology at [address] [place] [address] Liam Noel MD [facility] [place] [address] Social History Tobacco Use Types Packs/Day Years [...] 9:45 AM EDT Office Visit Dermatology at [place] [address] [facility] [place] [address] Emiliano Salinas MD [address], BAKAR[place] [address] documented as of this encounter Visit Diagnoses Diagnosis Mixed hyperlipidemia documented in this encounter Care Teams Motors Assembler Relationship Specialty Start Date End Date Guerline Quigley APRN PCP - General Family Medicine 03/18/23 09/29/23 documented as of this encounter
--- OUTSIDE RECORDS SUMMARY | 2024-02-15 16:35 | XMS_ITS | Encounter Summary ---
Author Organization [facility] [place]ario [place] [address] Care Team Providers Care Flake Cutter Operator Name Role Phone Guerline Quigley APRN Primary Care Provider [phone] Encounter Details Date Type Department Care Team [...] 9:45 AM EDT Office Visit Dermatology at [place] [address] [facility] [address] Emiliano Salinas MD [address], [place] [address] documented as of this encounter Visit Diagnoses Not on filedocumented in this encounter Care Teams Flake Cutter Operator Relationship Specialty Start Date End Date Guerline Quigley APRN PCP - General Family Medicine 03/18/23 09/29/23 documented as of this encounter
--- OUTSIDE RECORDS SUMMARY | 2024-02-15 16:35 | XMS_ITS | Encounter Summary ---
Author Organization [facility] [place] [address] Care Team Providers Care Transport Analyst Name Role Phone Veronica Barrios APRN [...] 9:45 AM EDT Office Visit Dermatology at [place] [address] [place] [address] Emiliano Salinas MD [address], BAKARI [place] [address] documented as of this encounter Visit Diagnoses Not on filedocumented in this encounter Care Teams Transport Analyst Relationship Specialty Start Date End Date Veronica Barrios APRN [address] [place] [address] PCP - General Family Medicine 08/27/22 03/17/23 documented as of this encounter
--- OUTSIDE RECORDS SUMMARY | 2024-02-15 16:35 | XMS_ITS | Encounter Summary ---
Author Organization [facility] [address] [place] [address] Care Team Providers Care Industrial Manufacturing Technician Name Role Phone Veronica Barrios Liyah VALDES Primary Care Provider Encounter Details Date Type Department Care Team (Late st Contact Info) Description 09/26/2022 Telephone Cardiology at [address] [place] [address] Liam Noel MD [facility] [place] [address] Social History Tobacco Use Types Packs/Day Years [...] faulty and did not work. She called [employer] and they are going to send a request to Dr Noel. Then they will mail them to her. Please call her @ [phone] documented in this encounter Plan of Treatment Upcoming Encounters Date Type Department Care Team (Late st Contact Info) Description 03/13/2024 9:45 AM EDT Office Visit Dermatology at [place] [address] [place] [address] Emiliano Salinas MD [address] [facility], [place] [address] documented as of this encounter Visit Diagnoses Not on filedocumented in this encounter Care Teams Industrial Manufacturing Technician Relationship Specialty Start Date End Date Veronica Barrios APRN [address] [place] [address] PCP - General Family Medicine 08/27/22 03/17/23 documented as of this encounter
--- OUTSIDE RECORDS SUMMARY | 2024-02-15 16:35 | XMS_ITS | Encounter Summary ---
Author Organization [facility] [place] [address] Care Team Providers Care Surgical Scrub Tech Name Role Phone Guerline Quigley KEISHA Primary Care Provider [phone] Encounter Details Date Type Department Care Team (Late st Contact Info) Description 06/17/2023 Telephone Cardiology at [address] [address] Liam Noel MD [facility] [place] [address] Social History Tobacco Use Types Packs/Day Years [...] 10:42 AM EST Liam Noel MD to [facility] Card Nurse If she feels it is [...] a few weeks. Please call her @ [phone] documented in this encounter Plan of Treatment Upcoming Encounters Date Type Department Care Team (Late st Contact Info) Description 03/13/2024 9:45 AM EDT Office Visit Dermatology at [address] [place] [address] Emiliano Salinas MD [address] [facility], BAKARI Nova [place] [address] documented as of this encounter Visit Diagnoses Not on filedocumented in this encounter Care Teams Surgical Scrub Tech Relationship Specialty Start Date End Date Guerline Quigley APRN PCP - General Family Medicine 03/18/23 09/29/23 documented as of this encounter
--- OUTSIDE RECORDS SUMMARY | 2024-02-15 16:35 | XMS_ITS | Encounter Summary ---
Author Organization [facility] [place] [address] Care Team Providers Care Motor Equipment Captain Name Role Phone Veronica Barrios Liyah VALDES Primary Care Provider Encounter Details Date Type Department Care Team (Late st Contact Info) Description 02/06/2023 Telephone Cardiology at [address] [place] [address] Liam Noel MD [facility] [place] [address] Social History Tobacco Use Types Packs/Day Years [...] Lab orders verified and will fax to [facility] lab per patient request. documented in this encounter Plan of Treatment Upcoming Encounters Date Type Department Care Team (Late st Contact Info) Description 03/13/2024 9:45 AM EDT Office Visit Dermatology at [place] [address] [facility] [place] [address] Emiliano Salinas MD [address] [facility], BAKARI [place] [address] documented as of this encounter Visit Diagnoses Not on filedocumented in this encounter Care Teams Motor Equipment Captain Relationship Specialty Start Date End Date Veronica Barrios APRN [address] [place] [address] PCP - General Family Medicine 08/27/22 03/17/23 documented as of this encounter
--- OUTSIDE RECORDS SUMMARY | 2024-02-15 16:35 | XMS_ITS | Encounter Summary ---
Author Organization [facility] [place] [address] Care Team Providers Care Hose Sprayer Name Role Phone Guerline Quigley KEISHA Primary Care Provider [phone] Encounter Details Date Type Department Care Team (Late st Contact Info) Description 09/30/2023 Orders Only Cardiology at [address] [place] [address] Liam Noel MD [facility] [place] [address] Mixed hyperlipidemia Social History Tobacco Use Types [...] 9:45 AM EDT Office Visit Dermatology at [address] [place] [address] Emiliano Salinas MD [address], [place] [address] documented as of this encounter Visit Diagnoses Diagnosis Mixed hyperlipidemia documented in this encounter Care Teams Hose Sprayer Relationship Specialty Start Date End Date Guerline Quigley APRN PCP - General Family Medicine 09/30/23 10/15/23 documented as of this encounter
--- OUTSIDE RECORDS SUMMARY | 2024-02-15 16:35 | XMS_ITS | Encounter Summary ---
Author Organization [facility] [place] [address] Care Team Providers Care Securities Sales Associate Name Role Phone Guerline Quigley Rodolfo VALDES Primary Care Provider [phone] Reason for Visit * Reason Onset Date Comments Abnormal Bruising 05/20/2023 Encounter Details Date Type Department Care Team (Late st Contact Info) Description 05/20/2023 Telephone Cardiology at [address] [address] Liam Noel MD [facility] [place] [address] Abnormal Bruising Social History Tobacco Use Types [...] evaluated by a doctor. Call back to [phone] to ask for a nurse if you need to discuss it further. * Telephone Encounter - KerrieChantell Jena - 05/20/2023 9:10 AM EST Patient called because her left foot swelled on the top and got black and blue. She said she looked up online and clogged arteries can do that. Please call her back @ [phone] documented in this encounter Plan of Treatment Upcoming Encounters Date Type Department Care Team (Late st Contact Info) Description 03/13/2024 9:45 AM EDT Office Visit Dermatology at [place] [address] [facility] [place] [address] Emiliano Salinas MD [address] [facility], [place] [address] documented as of this encounter Visit Diagnoses Not on filedocumented in this encounter Care Teams Securities Sales Associate Relationship Specialty Start Date End Date Guerline Quigley APRN PCP - General Family Medicine 03/18/23 09/29/23 documented as of this encounter
--- OUTSIDE RECORDS SUMMARY | 2024-02-15 16:35 | XMS_ITS | Encounter Summary ---
Author Organization [facility] [place] [address] Care Team Providers Care Executive Pilot Name Role Phone Guerline Quigley Rodolfo VALDES Primary Care Provider [phone] Encounter Details Date Type Department Care Team (Late st Contact Info) Description 05/15/2023 Telephone Cardiology at [address] [place] [address] Liam Noel MD [facility] [place] [address] Social History Tobacco Use Types Packs/Day Years [...] 9:45 AM EDT Office Visit Dermatology at [place] [address] [facility] [place] [address] Emiliano Salinas MD [address], [place]IND[place] [address] documented as of this encounter Visit Diagnoses Diagnosis Mixed hyperlipidemia documented in this encounter Care Teams Executive Pilot Relationship Specialty Start Date End Date Guerline Quigley APRN PCP - General Family Medicine 03/18/23 09/29/23 documented as of this encounter
--- OUTSIDE RECORDS SUMMARY | 2024-02-15 16:35 | XMS_ITS | Encounter Summary ---
Author Organization [facility] [place] [address] Care Team Providers Care Awning Craftsman Name Role Phone Guerline Quigley APRN Primary Care Provider [phone] Reason for Visit * Consultation (Routine) - Closed Specialty Diagnoses / Procedures Referred By Veronica brantley Referred To Contact Endocrinology Diagnoses Hypothyroidism, unspecified Other specified disorders of bone density and structure, unspecified site Guerline Quigley APRN [address] [place] [address] [facility] [address] [place] [phone] Referral ID Status Reason Start Date Expiration Date Visits Re quested Visits Authorized [id number] Closed 06/05/2023 06/04/2024 1 1 Encounter Details Date Type Department Care Team (Late st Contact Info) Description 07/30/2023 10:00 AM EST Office [place] [address] Virginia Everett MD [facility] [place] [address] Osteopenia, unspecified location Social History [...] [x] 701-900 mg [] 901-1100 mg [] 1592-1233 mg [] 2005-9214 mg [] Above 1500 mg ROS: Constitutional: [...] EACH WEEK fluticasone propionate (Flonase) 50 mcg/actuation [place], Suspension Every 12 hours. 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 Social [...] daily). She is planning to go to [place] for the month of August. Her TFTs are within normal limits while on levothyroxine 50 mcg. Plan: - will obtain DXA scan report and based on the scores decide about the appropriate treatment - Ca and Vit D prescription can be sent to [facility] if needed - continue with current Ca [...] 9:45 AM EDT Office Visit Dermatology at [place] [address] [place] [address] Emiliano Salinas MD [address], [place]AR[place] [address] Scheduled Orders Name Type Priority Associated Diagnoses [...] Free T4 1.37 0.93 - 1.70 ng/dL [facility] Comment: Reference Interval (ng/dL): Females: ??First Trimester: 0.97-1.68 ??Second Trimester: 0.77-1.51 ??Third Trimester: 0.77-1.49 Blood 07/30/2023 11:3 2 AM EST 07/30/2023 11:39 AM EST Narrative Resulting Agency Comment Spec In Lab Virginia Everett MD CHEMISTRY ORDERABL ES Performing Organization Address City/[facility] Co de Phone Number [facility] [place] [address] * TSH (07/30/2023 11:32 AM EST) Thyroid Stimulating Hormone 1.96 0.27 - 4.20 mcIU/mL [facility] Comment: Reference Interval (mcIU/mL): Females: ??First Trimester: 0.23-3.88 ??Second Trimester: 0.22-3.90 ??Third Trimester: 0.44-4.66 Blood 07/30/2023 11:3 2 AM EST 07/30/2023 11:39 AM EST Narrative Resulting Agency Comment Spec In Lab Virginia Everett MD CHEMISTRY ORDERABL ES Performing Organization Address City/[facility] Co de Phone Number [facility] [place] [address] * PTH (07/30/2023 11:32 AM EST) Parathyroid Hormone 43 15 - 65 pg/mL [facility] Blood 07/30/2023 11:3 2 AM EST 07/30/2023 11:39 AM EST Narrative Resulting Agency Comment Spec In Lab Virginia Everett MD CHEMISTRY ORDERABL ES Performing Organization Address City/[facility]/ZIP Co de Phone Number [facility] [place] [address] * Phosphorus (07/30/2023 11:32 AM EST) Phosphorus 3.5 2.5 - 4.5 mg/dL [facility] Blood 07/30/2023 11:3 2 AM EST 07/30/2023 11:39 AM EST Narrative Resulting Agency Comment Spec In Lab Virginia Everett MD CHEMISTRY ORDERABL ES Performing Organization Address [facility] de Phone Number [facility] [place] [address] * Magnesium (07/30/2023 11:32 AM EST) Magnesium 0.82 0.69 - 1.07 mmol/L [facility] Blood 07/30/2023 11:3 2 AM EST 07/30/2023 11:39 AM EST Narrative Resulting Agency Comment Spec In Lab Virginia Everett MD CHEMISTRY ORDERABL ES Performing Organization Address [facility] de Phone Number [facility] [place] [address] * Vitamin D, 25-Hydroxy (07/30/2023 11:32 AM EST) Vitamin D Total 25 OH 59 21 - 100 ng/mL [facility] Vit D Interp Sufficient [facility] Blood 07/30/2023 11:3 2 AM EST 07/30/2023 11:39 AM EST Narrative Resulting Agency Comment Spec In Lab Virginia Everett MD CHEMISTRY ORDERABL ES Performing Organization Address [facility] Co de Phone Number [facility] [place] [address] * Comprehensive metabolic panel (non-fasting) (07/30/2023 11:32 AM EST) Glucose 98 65 - 199 mg/dL [facility] Comment:Diabetes: >=200 mg/d L plus symptoms Blood Urea Nitrogen 10 8 - 18 mg/dL [facility] Creatinine 0.75 0.70 - 1.20 mg/dL [facility] Sodium 140 135 - 145 mmol/L [facility] Potassium 4.6 3.5 - 5.0 mmol/L [facility] Comment: Please note: ??Patients with WBC >100,000 may have falsely elevated Potassium levels. ??For accurate Potassium quantification in these patients send serum separator tube (gold top) for subsequent determinations. ??Contact the Clinical Chemistry Laboratory if there are any questions. Chloride 101 98 - 107 mmol/L [facility] Carbon Dioxide 28 22 - 31 mmol/L [facility] Anion Gap 11 5 - 15 mmol/L [facility] Calcium 10.1 8.5 - 10.5 mg/dL [facility] Protein, Total 7.4 6.1 - 8.0 g/dL [facility] Albumin 4.5 3.2 - 5.2 g/dL [facility] Aspartate Aminotransferase 22 0 - 30 unit/L [facility] Alanine Aminotransferase 18 0 - 30 unit/L [facility] Alkaline Phosphatase 77 35 - 105 unit/L [facility] Bilirubin, Total 0.4 0.2 - 1.3 mg/dL [facility] Est Glomerular Filtration Rate 83 >=60 mL/min/1. 73 m?? [facility] Comment: This patient's estimated GFR [...] Lab Virginia Everett MD CHEMISTRY ORDERABL ES [facility] [place] [address] documented in this encounter Visit Diagnoses Diagnosis Osteopenia, unspecified location documented in this encounter Care Teams Awning Craftsman Relationship Specialty Start Date End Date Guerline Quigley APRN PCP - General Family Medicine 03/18/23 09/29/23 documented as of this encounter
--- OUTSIDE RECORDS SUMMARY | 2024-02-15 16:35 | XMS_ITS | Encounter Summary ---
Author Organization [facility] [place] [address] Care Team Providers Care Table Games Supervisor Name Role Phone Nguyen Danarebecca Ordonez DO Primary Care Provider [phone] Encounter Details Date Type Department Care Team (Late st Contact Info) Description 10/18/2023 Telephone [place] [phone] Virginia Everett MD [facility] [place] [address] Social History Tobacco Use Types Packs/Day Years [...] 9:45 AM EDT Office Visit Dermatology at [place] [address] [place] [address] Emiliano Salinas MD [address], [place] [address] documented as of this encounter Visit Diagnoses Not on filedocumented in this encounter Care Teams Table Games Supervisor Relationship Specialty Start Date End Date Dana Cedillo DO [address] [place] [address] PCP - General Family Medicine 10/16/23 documented as of this encounter
--- OUTSIDE RECORDS SUMMARY | 2024-02-15 16:35 | XMS_ITS | Encounter Summary ---
Author [facility] [place] [address] Care Team Providers Care Cardiac Care Unit Nurse Name Role Phone Dana Cedillo Primary Care Provider [phone]- [phone] Encounter Details Date Type Department Care Team (Late st Contact Info) Description 01/09/2024 Telephone [place] [phone] Raeann Ortega, RN Social History Tobacco Use [...] 9:45 AM EDT Office Visit Dermatology at [address] [place] [address] Emiliano Salinas MD [address], [place] [address] documented as of this encounter Visit Diagnoses Not on filedocumented in this encounter Care Teams Cardiac Care Unit Nurse Relationship Specialty Start Date End Date Dana Cedillo DO [address] [place] [address] PCP - General Family Medicine 10/16/23 documented as of this encounter
--- OUTSIDE RECORDS SUMMARY | 2024-02-15 16:35 | XMS_ITS | Encounter Summary ---
Author Organization [facility] [place] [address] Care Team Providers Care Customer Project Manager Name Role Phone Veronica Barrios KEISHA Primary Care Provider Encounter Details Date Type Department Care Team (Latest Contact Info) Description 09/03/2022 Orders Only Cardiology at [address] [address] Liam Noel MD [facility] [place] [address] Familial hypercholesterolemia Social History Tobacco Use Types [...] 9:45 AM EDT Office Visit Dermatology at [address] [place] [address] Emiliano Salinas MD [address] [place] [address] RD, [place] [address] documented as of this encounter Visit Diagnoses Diagnosis Familial hypercholesterolemia Pure hypercholesterolemia documented in this encounter Care Teams Customer Project Manager Relationship Specialty Start Date End Date Veronica Barrios APRN [address] [place] [address] PCP - General Family Medicine 08/27/22 03/17/23 documented as of this encounter
--- OUTSIDE RECORDS SUMMARY | 2024-02-15 16:35 | XMS_ITS | Encounter Summary ---
Author Organization Counts Include [facility] Address [facility] [place] [address] Care Team Providers Care Alarm Service Technician Name Role Phone Dana Cedillo DO Primary Care Provider +1- [phone] Encounter Details Date Type Department Care Team (Latest Contact Info) Description 10/18/2023 9:58 AM EDT - 10/18/2023 11:59 PM EDT Hospital Encounter Mammography/[place] [address] Sam Dawson MD [facility] [place] [address] Pathological fracture of left foot due to [...] FOOD 10/21/2022 fluticasone propionate (Flonase) 50 mcg/actuation [place], Suspension Every 12 hours. 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 ? Bone Density Report ? Name: ?Yessenia Luong Age: ? 73 Sex: ? Female Ethnicity: ? White Date of : 1950 Referring Provider: SAM DAWSON Study: Bone densitometry was performed. Model: [facility] A (S/N [id number]) SW version 13.6.0.5 Exam Date: October 18, 2023 Accession number: [id number] Bone Density: Region ? BMD ?T-score ??Z-score [...] who have questions please contact the health manager urgent care that requested your imaging first. ? Narrative [...] BMD measurements and plots are available in [employer] the imaging tab. Paper copies will be sent to providers without [employer] access.If you have received this report without the data sheet and do not haveaccess to [employer], please contact Radiology Regional Psychiatric Director at [phone] Saturday 8am-4pm. Bone Density Report Name: Yessenia Luong Age: 73 Sex: Female Ethnicity: White Date of : 1950 Referring Provider: SAM DAWSON Study: Bone densitometry was performed. Model: Malachi Bhatt (S/N [id number]) version 13.6.0.5 Exam Date: October 18, 2023 Accession number: [id number] Bone Density: Region BMD T-score Z-score AP [...] patients who have questions please contactthe health manager urgent care that requested your imaging first. Sam Dawson MD IMG DEXA ORDERABLE S documented in this encounter Visit Diagnoses Diagnosis 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, subsequent encounter documented in this encounter Care Teams Alarm Service Technician Relationship Specialty Start Date End Date Dana Cedillo DO [address] [place] [address] PCP - General Family Medicine 10/16/23 documented as of this encounter
--- OUTSIDE RECORDS SUMMARY | 2024-02-15 16:35 | XMS_ITS | Encounter Summary ---
[place] [address] Care Team Providers Care Fraud Analyst Name Role Phone Veronica Barrios APRN Primary Care Provider Reason for Referral * Consultation (Urgent) - Closed Specialty Diagnoses / Procedures Referred By Veronica t Referred To Contact Cardiology Diagnoses Familial hypercholesterolemia Familial hypercholesterolemia. Veronica Barrios APRN [address] [place] [address] [facility] Cardiology [address] [place] [address] Referral ID Status Reason Start Date Expiration Date V isits Requested Visits Authorized [id number] Closed Consult, Test & Treat PCP Updated and/or Approved 08/27/2022 08/27/2023 6 6 Encounter Details Date Type Department Care Team (Latest Contact Info) Description 08/27/2022 Transcribe Orders eDH Incoming Referrals [phone] Veronica Barrios APRN [address] [place] [address] Familial hypercholesterolemia Social History Tobacco [...] 9:45 AM EDT Office Visit Dermatology at [place] [address] [facility] [place] [address] Emiliano Salinas MD [address] [facility], BAKAR[place] [address] Scheduled Referrals Name Type Priority Associated Diagnoses Orde r Schedule Referral to Cardiology Outpatient Referral Urgent Familial hypercholesterolemia Ordered: 08/27/2022 documented as of this encounter Visit Diagnoses Diagnosis Familial hypercholesterolemia Pure hypercholesterolemia documented in this encounter Care Teams Fraud Analyst Relationship Specialty Start Date End Date Veronica Barrios APRN [address] [place] [address] PCP - General Family Medicine 08/27/22 03/17/23 documented as of this encounter
--- OUTSIDE RECORDS SUMMARY | 2024-02-15 16:35 | XMS_ITS | Encounter Summary ---
Author Organization [facility] [place] [address] Care Team Providers Care Wood Lather Name Role Phone Guerline Quigley KEISHA Primary Care Provider [phone] Encounter Details Date Type Department Care Team (Late st Contact Info) Description 08/15/2023 Telephone [place] [address] Virginia Everett MD [facility] [place] [address] Social History Tobacco Use Types Packs/Day Years [...] 9:45 AM EDT Office Visit Dermatology at [place] [address] [facility] [place] [address] Emiliano Salinas MD [address], MANINDER [place] [address] documented as of this encounter Visit Diagnoses Not on filedocumented in this encounter Care Teams Wood Lather Relationship Specialty Start Date End Date Guerline Quigley APRN PCP - General Family Medicine 03/18/23 09/29/23 documented as of this encounter
--- OUTSIDE RECORDS SUMMARY | 2024-02-15 16:35 | XMS_ITS | Encounter Summary ---
[place] [address] Care Team Providers Care Service Girl Name Role Phone Dana Cedillo DO Primary Care Provider [phone]- [phone] Reason for Visit * Reason Onset Date Comments Other 11/26/2023 Encounter Details Date Type Department Care Team (Late st Contact Info) Description 11/26/2023 Telephone [place] [address] Raeann Ortega, RN Other Social History Tobacco [...] 11/26/2023 9:30 AM EDT Copied from CRM #[id number]. Topic: Specialty Dept CRMs - Test Results >> Nov 25, 2023 10:00 AM Susan Muller wrote: Test Results Request Specialist: Virginia Everett MD Relationship (if other than patient-full name): Self Ordering Provider: Virginia Everett MD Type of Test: 24 Urine test Date of Test: 11/18/23 Where Was This Test Performed: [facility] Patient will be available after 1pm today. Please call back to discuss. documented in this encounter Plan of Treatment Upcoming Encounters Date Type Department Care Team (Late st Contact Info) Description 03/13/2024 9:45 AM EDT Office Visit Dermatology at [place] [address] [place] [address] Emiliano Salinas MD [address], [place]AR[place] [address] documented as of this encounter Visit Diagnoses Not on filedocumented in this encounter Care Teams Service Girl Relationship Specialty Start Date End Date Dana Cedillo DO [address] [place] [address] PCP - General Family Medicine 10/16/23 documented as of this encounter
--- OUTSIDE RECORDS SUMMARY | 2024-02-15 16:35 | XMS_ITS | Encounter Summary ---
Author Organization [facility] [place] [address] Care Team Providers Care Preparatory Technician Name Role Phone Dana Cedillo Primary Care Provider +1- [phone] Encounter Details Date Type Department Care Team (Late st Contact Info) Description 10/30/2023 Telephone [place] [address] Luna Lazcano RN Social History Tobacco Use [...] 10/30/2023 2:33 PM EDT Copied from CRM #[id number]. Topic: Specialty Dept CRMs - Medication Issues [...] 9:45 AM EDT Office Visit Dermatology at [place] [address] [facility] [place] [address] Emiliano Salinas MD [address], BAKARI [place] [address] documented as of this encounter Visit Diagnoses Not on filedocumented in this encounter Care Teams Preparatory Technician Relationship Specialty Start Date End Date Dana Cedillo DO [address] [place] [address] PCP - General Family Medicine 10/16/23 documented as of this encounter
--- OUTSIDE RECORDS SUMMARY | 2024-02-15 16:35 | XMS_ITS | Encounter Summary ---
Author Organization [facility] Address [facility] [place] [address] Care Team Providers Care Resource Specialist Name Role Phone Veronica Barrios Liyah VALDES Primary Care Provider Reason for Visit * Reason Comments Medication Refill Encounter Details Date Type Department Care Team (Late st Contact Info) Description 01/22/2023 Refill Cardiology at [address] [address] Liam Noel MD [facility] [place] [address] Medication Refill Social History Tobacco Use Types [...] 9:45 AM EDT Office Visit Dermatology at [place] [address] [facility] [place] [address] Emiliano Salinas MD [address] [facility], BAKAR[place] [address] documented as of this encounter Visit Diagnoses Diagnosis Mixed hyperlipidemia documented in this encounter Care Teams Resource Specialist Relationship Specialty Start Date End Date Veronica Barrios APRN [address] [place] [address] PCP - General Family Medicine 08/27/22 03/17/23 documented as of this encounter
--- OUTSIDE RECORDS SUMMARY | 2024-02-15 16:35 | XMS_ITS | Encounter Summary ---
[place] [address] Care Team Providers Care Outplacement Consultant Name Role Phone CésarDana hamm Mery ROCHE Primary Care Provider +1- [phone] Encounter Details Date Type Department Care Team (Late st Contact Info) Description 11/05/2023 [place] [phone] Raeann Ortega RN Social History Tobacco Use [...] - 11/05/2023 12:03 PM EDT Copied from [facility] #[id number]. Topic: Specialty Dept CRMs - Medication Issues [...] 9:45 AM EDT Office Visit Dermatology at [place] [address] [facility] [place] [address] Emiliano Salinas MD [address], MANINDER [place] [address] documented as of this encounter Visit Diagnoses Not on filedocumented in this encounter Care Teams Outplacement Consultant Relationship Specialty Start Date End Date Dana Cedillo DO [address] [place] [address] PCP - General Family Medicine 10/16/23 documented as of this encounter
--- OUTSIDE RECORDS SUMMARY | 2024-02-15 16:35 | XMS_ITS | Encounter Summary ---
Author Organization [facility] [place] [address] Care Team Providers Care Ambulette Driver Name Role Phone Guerline Quigley ASSISTANT PROFESSOR OF ARCHAEOLOGY Primary Care Provider [phone] Encounter Details Date Type Department Care Team (Late st Contact Info) Description 03/18/2023 External Results Cardiology at [address] [address] Ashlyn Celis, RN Social History [...] AM EDT Office Visit Dermatology at [address] [address] Emiliano Salinas MD [address] [facility] [place] [address] documented as of this encounter Procedures Procedure Name Priority Date/Time Associated Diagnosis Comments LIPID EXTERNAL LAB PANEL Routine 03/14/2023 10:00 AM EDT documented in this encounter Results * Lipid External Lab Panel (03/14/2023 10:00 AM EDT) Cholesterol, Total 280 [facility] Triglyceride 100 [facility] HDL Cholesterol 74 [facility] LDL Cholesterol 186.8 [facility] 03/14/2023 10:0 0 AM EDT Historical Provider EXTERNAL LAB HERMELINDA CURTIS [facility] [address] [place] [address], [facility] [phone] documented in this encounter Visit Diagnoses Not on filedocumented in this encounter Care Teams Ambulette Driver Relationship Specialty Start Date End Date Guerline Quigley, ASSISTANT PROFESSOR OF ARCHAEOLOGY PCP - General Family Medicine 03/18/23 09/29/23 documented as of this encounter
--- OUTSIDE RECORDS SUMMARY | 2024-02-15 16:35 | XMS_ITS | Encounter Summary ---
Author Organization [facility] [place]ario [place] [address] Care Team Providers Care Mathematical Scientist Name Role Phone Guerline Quigley APRN Primary Care Provider [phone] Encounter Details Date Type Department Care Team [...] Office Visit Dermatology at [place] [address] [place] [address] Emiliano Salinas MD [address], [place] [address] documented as of this encounter Visit Diagnoses Not on filedocumented in this encounter Care Teams Mathematical Scientist Relationship Specialty Start Date End Date Guerline Quigley APRN PCP - General Family Medicine 03/18/23 09/29/23 documented as of this encounter
--- OUTSIDE RECORDS SUMMARY | 2024-02-15 16:35 | XMS_ITS | Encounter Summary ---
Author Organization [facility] [place] [address] Care Team Providers Care Packerhead Machine Operator Name Role Phone Guerline Quigley SCREW MACHINE OPERATOR Primary Care Provider [phone] Encounter Details Date Type Department Care Team (Late st Contact Info) Description 07/30/2023 Telephone [place] [address] Luna Lazcano RN Social History Tobacco Use [...] Miscellaneous Notes * Telephone Encounter - Luna aLzcano RN - 07/30/2023 1:48 PM EST Copied from [facility] #[id number]. Topic: Specialty Dept CRMs - Generic Call [...] 9:45 AM EDT Office Visit Dermatology at [place] [address] [facility] [place] [address] Emiliano Salinas MD [address] [facility], BAKAR[place] [address] documented as of this encounter Visit Diagnoses Not on filedocumented in this encounter Care Teams Packerhead Machine Operator Relationship Specialty Start Date End Date Guerline Quigley APRN PCP - General Family Medicine 03/18/23 09/29/23 documented as of this encounter
--- OUTSIDE RECORDS SUMMARY | 2024-02-15 16:35 | XMS_ITS | Encounter Summary ---
Author Organization [facility] [place] [address] Care Team Providers Care Gray Tender Name Role Phone Mary Altamirano MD Primary Care Provider [phone] Reason for Visit * Reason Onset Date Comments Referral 08/22/2022 Encounter Details Date Type Department Care Team (Late st Contact Info) Description 08/22/2022 Telephone Cardiology at [address] [address] Ashlyn Celis, workers' compensation mediator Social History Tobacco Use Types Packs/Day Years [...] EDT Yessenia has been with Cardiology in [place]. Last appointment was July. Next appointment is due in November and she prefers to transfer cardiology care to a engine specialist in the [facility] Cardiology clinic. Request: PCP to confirm that transfer of cardiology care to the closer provider is an appropriate referral. This clinic can accommodate a new appointment in November. documented in this encounter Plan of Treatment Upcoming Encounters Date Type Department Care Team (Late st Contact Info) Description 03/13/2024 9:45 AM EDT Office Visit Dermatology at [place] [address] [facility] [place] [address] Emiliano Salinas MD [address], [place] [address] documented as of this encounter Visit Diagnoses Not on filedocumented in this encounter Care Teams Gray Tender Relationship Specialty Start Date End Date Mary Altamirano MD PCP - General Family Medicine 01/26/22 08/26/22 documented as of this encounter
--- OUTSIDE RECORDS SUMMARY | 2024-02-15 16:35 | XMS_ITS | Encounter Summary ---
Author Organization [facility] [place] [address] Care Team Providers Care Generator Mechanic Name Role Phone Veronica Barrios KEISHA Primary Care Provider [phone] Encounter Details Date Type Department Care Team (Late st Contact Info) Description 10/29/2022 External Results Cardiology at [address] [address] Liam Noel MD [facility] [place] [address] Social History Tobacco Use Types Packs/Day Years [...] 9:45 AM EDT Office Visit Dermatology at [address] [place] [address] Emiliano Salinas MD [address] [place] [address], [place] [address] documented as of this encounter Procedures Procedure [...] on filedocumented in this encounter Care Teams Generator Mechanic Relationship Specialty Start Date End Date Veronica Barrios APRN [address] [place] [address] PCP - General Family Medicine 08/27/22 03/17/23 documented as of this encounter
--- OUTSIDE RECORDS SUMMARY | 2024-02-15 16:35 | XMS_ITS | Encounter Summary ---
Author Organization [facility] [place] [address] Care Team Providers Care Mobile Heavy Equipment Operator Name Role Phone Veronica Barrios APRN [...] 9:45 AM EDT Office Visit Dermatology at [place] [address] [facility] [place] [address] Emiliano Salinas MD [address], BAKARI Bhat[place] [address] documented as of this encounter Visit Diagnoses Not on filedocumented in this encounter Care Teams Mobile Heavy Equipment Operator Relationship Specialty Start Date End Date Veronica Barrios APRN [address] [place] [address] PCP - General Family Medicine 08/27/22 03/17/23 documented as of this encounter
--- OUTSIDE RECORDS SUMMARY | 2024-02-15 16:35 | XMS_ITS | Encounter Summary ---
Author Organization [facility] [place] [address] Care Team Providers Care Special Education Administrator Name Role Phone Guerline Quigley KEISHA Primary Care Provider [phone] Encounter Details Date Type Department Care Team (Late st Contact Info) Description 07/31/2023 Telephone [place] [phone] Luna Lazcano RN Social History Tobacco Use [...] 07/31/2023 1:50 PM EST Copied from CRM #[id number]. Topic: Specialty Dept CRMs - Medication Issues >> Jul 31, 2023 1:37 PM Maya Muller wrote: Medication Issues Specialist [place] Everett MD Relationship (if other than patient-full name): self Reason for call: Medication Issue (if symptom based used Triage Subtopic) Message/information for the nurse: Patient states she was prescribed Pantoprazole 20 mg and Sasquib88 or 20 mg but when she read [...] 9:45 AM EDT Office Visit Dermatology at [address] [address] Emiliano Salinas MD [address], [place] [address] documented as of this encounter Visit Diagnoses Not on filedocumented in this encounter Care Teams Special Education Administrator Relationship Specialty Start Date End Date Guerline Quigley APRN PCP - General Family Medicine 03/18/23 09/29/23 documented as of this encounter
--- OUTSIDE RECORDS SUMMARY | 2024-02-15 16:35 | XMS_ITS | Encounter Summary ---
Author Organization [facility] [place] [address] Care Team Providers Care Refrigeration Plant Operator Name Role Phone Veronica Barrios KEISHA Primary Care Provider [phone] Encounter Details Date Type Department Care Team (Late st Contact Info) Description 09/03/2022 Abstract Cardiology at [address] [address] Ashlyn Celis, RN Mixed hyperlipidemia [...] 9:45 AM EDT Office Visit Dermatology at [address] [address] Emiliano Salinas MD [address] [place] [address], [facility] [place] [address] documented as of this encounter Visit Diagnoses Diagnosis Mixed hyperlipidemia documented in this encounter Care Teams Refrigeration Plant Operator Relationship Specialty Start Date End Date Veronica Barrios APRN [address] [place] [id number] PCP - General Family Medicine 08/27/22 03/17/23 documented as of this encounter
--- OUTSIDE RECORDS SUMMARY | 2024-02-15 16:35 | XMS_ITS | Encounter Summary ---
[place] [address] Care Team Providers Care Manager Msw Name Role Phone Guerline Quigley LABORER CARPENTRY DOCK Primary Care Provider [phone] Encounter Details Date Type Department Care Team (Late st Contact Info) Description 08/02/2023 Telephone [place] [address] Luna Lazcano RN Social History Tobacco Use [...] 08/02/2023 10:43 AM EST Copied from CRM #[id number]. Topic: Specialty Dept CRMs - Generic Call [...] will be ordered requesting to send to [facility] - [address] [place] [address] phone [phone], unable to provide fax. >> Aug 02, 2023 10:41 AM September R wrote: Patient called back in to let the office know her PCP is sending the T3 lab over to the office documented in this encounter Plan of Treatment Upcoming Encounters Date Type Department Care Team (Late st Contact Info) Description 03/13/2024 9:45 AM EDT Office Visit Dermatology at [place] [address] [facility] [place] [address] Emiliano Salinas MD [address] [facility] [address], BAKARI [place] [address] documented as of this encounter Visit Diagnoses Not on filedocumented in this encounter Care Teams Manager Msw Relationship Specialty Start Date End Date Guerline Quigley APRN PCP - General Family Medicine 03/18/23 09/29/23 documented as of this encounter
--- OUTSIDE RECORDS SUMMARY | 2024-02-15 16:35 | XMS_ITS | Encounter Summary ---
Author Organization [facility] [place] [address] Care Team Providers Care Commissioning Specialist Name Role Phone Dana Cedillo DO Primary Care Provider [phone] Encounter Details Date Type Department Care Team [...] 9:45 AM EDT Office Visit Dermatology at [place] [address] [facility] [address] [place] [address] Emiliano Salinas MD [address] [facility] [facility] [address] [address], BAKAR[place] [address] documented as of this encounter Visit Diagnoses Not on filedocumented in this encounter Care Teams Commissioning Specialist Relationship Specialty Start Date End Date Dana Cedillo DO [address] [place] [address] PCP - General Family Medicine 10/16/23 documented as of this encounter
--- OUTSIDE RECORDS SUMMARY | 2024-02-15 16:35 | XMS_ITS | Encounter Summary ---
Author Organization [facility] Address [facility] [place] [address] Care Team Providers Care Tire Man Name Role Phone Guerline Quigley Rodolfo VALDES Primary Care Provider [phone] Reason for Visit * Reason Comments Hyperlipidemia Encounter Details Date Type Department Care Team (Late st Contact Info) Description 03/18/2023 3:00 PM EDT Office Visit Cardiology at [address] [address] Liam Noel MD [facility] [place] [address] Mixed hyperlipidemia Social History Tobacco Use Types [...] WEEK DIRECTED fluticasone propionate (Flonase) 50 mcg/actuation [place], Suspension EVERY 12 HOURS icosapent ethyL (VASCEPA) [...] without use of accessory muscles Labs 03/2023 ([facility]) Uric acid 6.0 TSH 1.62 LDL 187 [...] 9:45 AM EDT Office Visit Dermatology at [place] [address] [facility] [place] [address] Emiliano Salinas MD [address] [facility], [place] [address] documented as of this encounter Visit Diagnoses Diagnosis Mixed hyperlipidemia documented in this encounter Care Teams Tire Man Relationship Specialty Start Date End Date Guerline Quigley APRN PCP - General Family Medicine 03/18/23 09/29/23 documented as of this encounter
--- OUTSIDE RECORDS SUMMARY | 2024-02-15 16:35 | XMS_ITS | Encounter Summary ---
Author Organization [facility] [place] [address] Care Team Providers Care Guest Services Name Role Phone Mary Altamirano MD Primary [...] EDT Office Visit Dermatology at [place] [address] [facility] [place] [address] Emiliano Salinas MD [address] [facility] [address], [place]IND[place] [address] documented as of this encounter Visit Diagnoses Not on filedocumented in this encounter Care Teams Guest Services Relationship Specialty Start Date End Date Mary Altamirano MD PCP - General Family Medicine 01/26/22 08/26/22 documented as of this encounter
--- OUTSIDE RECORDS SUMMARY | 2024-02-15 16:35 | XMS_ITS | Encounter Summary ---
Author Organization [facility] [place] [address] Care Team Providers Care Preform Plate Maker Name Role Phone Dana Cedillo DO Primary Care Provider [phone] Encounter Details Date Type Department Care Team (Late st Contact Info) Description 01/09/2024 Telephone Cardiology at [address] [place] [address] [facility] [place] [address] Social History Tobacco Use Types Packs/Day Years [...] were not included. [facility] V[facility] [address] [place] [address] [place] [address] Yessenia called provide message for Dr. Noel [...] Dr. Chapa is a Naturopathy provider at [facility] [address] [facility], [place], [place] [id number] documented in this encounter Plan of Treatment Upcoming Encounters Date Type Department Care Team (Late st Contact Info) Description 03/13/2024 9:45 AM EDT Office Visit Dermatology at [address] [place] [address] Emiliano Salinas MD [address] [place] [address], [facility] [place] [address] documented as of this encounter Visit Diagnoses Not on filedocumented in this encounter Care Teams Preform Plate Maker Relationship Specialty Start Date End Date Dana Cedillo DO [address] [place] [address] PCP - General Family Medicine 10/16/23 documented as of this encounter
--- OUTSIDE RECORDS SUMMARY | 2024-02-15 16:35 | XMS_ITS | Encounter Summary ---
Author Organization [facility] [place] [address] Care Team Providers Care Merchandise Flow Team Member Name Role Phone Guerline Quigley KEISHA Primary Care Provider [phone] Encounter Details Date Type Department Care Team (Late st Contact Info) Description 06/19/2023 Orders Only Cardiology at [address] [place] [address] Liam Noel MD [facility] [place] [address] Mixed hyperlipidemia; Chronic urticaria; Hypothyroidism, unspecified type [...] 9:45 AM EDT Office Visit Dermatology at [address] [place] [address] Emiliano Salinas MD [address] [facility] [address], [place] [address] documented as of this encounter Visit Diagnoses Diagnosis Mixed hyperlipidemia Chronic urticaria Other specified urticaria Hypothyroidism, unspecified type documented in this encounter Care Teams Merchandise Flow Team Member Relationship Specialty Start Date End Date Guerline Quigley APRN PCP - General Family Medicine 03/18/23 09/29/23 documented as of this encounter
--- OUTSIDE RECORDS SUMMARY | 2024-02-15 16:35 | XMS_ITS | Encounter Summary ---
Author Organization [facility] [place] [address] Care Team Providers Care Utility Assembler Name Role Phone Veronica Barrios APRN Primary Care Provider Encounter Details Date Type Department Care Team (Late st Contact Info) Description 08/27/2022 Transcribe Orders eDH Incoming Referrals [phone] Veronica Barrios APRN [address] [place] [address] Social History Tobacco Use Types Packs/Day Years [...] 9:45 AM EDT Office Visit Dermatology at [place] [address] [facility] [place] [address] Emiliano Salinas MD [address] [facility], [place] [address] documented as of this encounter Visit Diagnoses Not on filedocumented in this encounter Care Teams Utility Assembler Relationship Specialty Start Date End Date Veronica Barrios APRN [address] [place] [address] PCP - General Family Medicine 08/27/22 03/17/23 documented as of this encounter
--- OUTSIDE RECORDS SUMMARY | 2024-02-15 16:35 | XMS_ITS | Encounter Summary ---
Author Organization [facility] [place] [address] Care Team Providers Care Lead Mason Tender Name Role Phone Veronica Barrios KEISHA Primary Care Provider Encounter Details Date Type Department Care Team (Late st Contact Info) Description 08/29/2022 Specialty [place] [phone] Rissa Anderson [facility] Social History Tobacco Use Types Packs/Day Years [...] AM EDT Office Visit Dermatology at [place] [address] [facility] [address] [place] [address] Emiliano Salinas MD [address] [facility], MANIND[place] [address] documented as of this encounter Visit Diagnoses Not on filedocumented in this encounter Care Teams Lead Mason Tender Relationship Specialty Start Date End Date Veronica Barrios APRN [address] [place] [id number] PCP - General Family Medicine 08/27/22 03/17/23 documented as of this encounter
--- OUTSIDE RECORDS SUMMARY | 2024-02-15 16:35 | XMS_ITS | Encounter Summary ---
Author Organization [facility] [place] [address] Care Team Providers Care Plaster Lather Name Role Phone Nguyen Danarebecca Ordonez DO Primary Care Provider [phone] Encounter Details Date Type Department Care Team (Late st Contact Info) Description 01/22/2024 4:00 PM EDT TH Visit (TeleHealth) [place] [address] Virginia Everett MD [facility] [place] [address] Hypercalciuria Social History Tobacco Use Types Packs/Day [...] show osteoporosis. I repeated DXA scan at [facility] and it showed normalBMD confirmed by TBS [...] [x] 701-900 mg [] 901-1100 mg [] 8651-0274 mg [] 2093-6786 mg [] Above 1500 mg ROS: Constitutional: [...] WITH FOOD fluticasone propionate (Flonase) 50 mcg/actuation [place], Suspension Every 12 hours. 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 Social [...] scan with TBS score DXA scan 12/27/2022 ([facility]): Assessment: Yessenia Luong is a 73 y.o. female with PMH of HLD, THERESA, OA, asthma, hypothyroidism, osteopenia and unprovoked, non-traumatic left 2nd metatarsal fracture. Her DXA scan from 12/2022 showed osteopenia but repeated DXA scan done at [facility] with TBS scoring it was confirmed she [...] Level - labs to be sent to [place] - continue vit D - not to [...] 9:45 AM EDT Office Visit Dermatology at [place] [address] [facility] [address] [place] [address] Emiliano Salinas MD [address] [facility] [address], [place] [address] Scheduled Orders Name Type Priority Associated Diagnoses Orde r Schedule PTH Lab Routine Hypercalciuria Expected: 05/02/2024 (Approximate), Expires: 01/30/2025 Calcium Lab Routine Hypercalciuria Expected: 05/02/2024 (Approximate), Expires: 01/30/2025 Albumin Level Lab Routine Hypercalciuria Expected: 05/02/2024, Expires: 11/01/2024 documented as of this encounter Visit Diagnoses Diagnosis Hypercalciuria Unspecified disorders of calcium metabolism documented in this encounter Care Teams Plaster Lather Relationship Specialty Start Date End Date Dana Cedillo DO [address] [place] [address] PCP - General Family Medicine 10/16/23 documented as of this encounter
--- OUTSIDE RECORDS SUMMARY | 2024-02-15 16:35 | XMS_ITS | Encounter Summary ---
Author Organization [facility] [place] [address] Care Team Providers Care Continuous Absorption Process Operator Name Role Phone Guerline Quigley Rodolfo VALDES Primary Care Provider [phone] Encounter Details Date Type Department Care Team (Late st Contact Info) Description 07/16/2023 Telephone Cardiology at [address] [place] [address] Liam Noel MD [facility] [place] [address] Social History Tobacco Use Types Packs/Day Years [...] due malaise and brain fog Current plan: airport ramp agent will treat her osteopenia with a new [...] the medication? Please call her back @ [phone] documented in this encounter Plan of Treatment Upcoming Encounters Date Type Department Care Team (Late st Contact Info) Description 03/13/2024 9:45 AM EDT Office Visit Dermatology at [place] [address] [facility] [place] [address] Emiliano Salinas MD [address], BAKARI [place] [address] documented as of this encounter Visit Diagnoses Not on filedocumented in this encounter Care Teams Continuous Absorption Process Operator Relationship Specialty Start Date End Date Guerline Quigley APRN PCP - General Family Medicine 03/18/23 09/29/23 documented as of this encounter
--- OUTSIDE RECORDS SUMMARY | 2024-02-15 16:35 | XMS_ITS | Encounter Summary ---
Author Organization [facility] [place] [address] Care Team Providers Care Sales Store Checker Name Role Phone Veronica Barrios Liyah VALDES Primary Care Provider Encounter Details Date Type Department Care Team (Late st Contact Info) Description 08/27/2022 Telephone Cardiology at [address] [place] [address] Liam Noel MD [facility] [place] [address] Social History Tobacco Use Types Packs/Day Years [...] as Dr Santiago is no longer at [facility]. Return call to Yessenia voice message left [...] and she should hear back from someone. [phone] documented in this encounter Plan of Treatment Upcoming Encounters Date Type Department Care Team (Late st Contact Info) Description 03/13/2024 9:45 AM EDT Office Visit Dermatology at [address] [place] [address] Emiliano Salinas MD [address] [facility], BAKARI [place] [address] documented as of this encounter Visit Diagnoses Not on filedocumented in this encounter Care Teams Sales Store Checker Relationship Specialty Start Date End Date Veronica Barrios APRN [address] [place] [address] PCP - General Family Medicine 08/27/22 03/17/23 documented as of this encounter
--- OUTSIDE RECORDS SUMMARY | 2024-02-15 16:35 | XMS_ITS | Encounter Summary ---
Author Organization [facility] [place] [address] Care Team Providers Care Signals Collector/Analyst Name Role Phone Nguyen Danarebecca Ordonez DO Primary Care Provider [phone] Encounter Details Date Type Department Care Team (Late st Contact Info) Description 01/23/2024 Telephone Cardiology at [address] [place] [address] Liam Noel MD [facility] [place] [address] Social History Tobacco Use Types Packs/Day Years [...] 9:45 AM EDT Office Visit Dermatology at [place] [address] [facility] [place] [address] Emiliano Salinas MD 580 [facility], [place] [address] documented as of this encounter Visit Diagnoses Not on filedocumented in this encounter Care Teams Signals Collector/Analyst Relationship Specialty Start Date End Date Dana Cedillo DO [address] [place] [address] PCP - General Family Medicine 10/16/23 documented as of this encounter
--- OUTSIDE RECORDS SUMMARY | 2024-02-15 16:35 | XMS_ITS | Encounter Summary ---
Author Organization [facility] [place] [address] Care Team Providers Care Scenario Writer Name Role Phone Veronica Barrios Liyah VALDES Primary Care Provider Encounter Details Date Type Department Care Team (Late st Contact Info) Description 12/27/2022 Ancillary Procedure [place] [phone] Guerline Quigley APRN [address] [place] [address] Social History Tobacco Use Types Packs/Day Years [...] 9:45 AM EDT Office Visit Dermatology at [address] [place] [phone] Emiliano Salinas MD [address] [facility], [place] [address] documented as of this encounter Procedures Procedure Name Priority Date/Time Associated Diagnosis Comments FILM LIBRARY- STORAGE ONLY DXA IMAGES Routine 12/27/2022 12:00 AM EDT documented in this encounter Results * Film Library- Storage Only DXA Images (12/27/2022 12:00 AM EDT) Narrative [facility] - 08/07/2023 3:20 PM EST This exam is auto-finalizing. It's purpose is for storage only. Guerline Quigely APRN IMAdwoa FILM LIBRARY ORD ERABLES Performing Organization Address City/State/[facility] Co de Phone Number [place], [place] documented in this encounter Visit Diagnoses Not on filedocumented in this encounter Care Teams Scenario Writer Relationship Specialty Start Date End Date Veronica Barrios APRN [address] [place] [address] PCP - General Family Medicine 08/27/22 03/17/23 documented as of this encounter
--- OUTSIDE RECORDS SUMMARY | 2024-02-15 16:35 | XMS_ITS | Encounter Summary ---
Author Organization [facility] Address [facility] [place] [address] Care Team Providers Care Powersaw Supervisor Name Role Phone Veronica Barrios CANDY PACKER Primary Care Provider Reason for Visit * Reason Comments Skin Problem Encounter Details Date Type Department Care Team (Late st Contact Info) Description 08/30/2022 8:45 AM EDT Office Visit Dermatology at [facility] [address] [place] [address] Star Moura MD [facility] [address] [place] [address] Encounter for cosmetic procedure Social History Tobacco [...] glabella & forehead & crows feet. LOT: [id number] EXP:2023-06 3. Post-injection care reviewed. Call with [...] by Star Moura MD Department of Dermatology [facility] documented in this encounter Plan of Treatment Upcoming Encounters Date Type Department Care Team (Late st Contact Info) Description 03/13/2024 9:45 AM EDT Office Visit Dermatology at [place] [address] [facility] [place] [phone] Emiliano Salinas MD [address] [facility], [place] [address] documented as of this encounter Visit Diagnoses Diagnosis Encounter for cosmetic procedure documented in this encounter Care Teams Powersaw Supervisor Relationship Specialty Start Date End Date Veronica Barrios APRN [address] [place] [address] PCP - General Family Medicine 08/27/22 03/17/23 documented as of this encounter
--- OUTSIDE RECORDS SUMMARY | 2024-02-15 16:35 | XMS_ITS | Encounter Summary ---
Author Organization [facility] [place] [address] Care Team Providers Care C Programmer Name Role Phone Veronica Barrios Liyah VALDES Primary Care Provider Encounter Details Date Type Department Care Team (Late st Contact Info) Description 09/20/2022 Telephone Cardiology at [address] [place] [address] Liam Noel MD [facility] [place] [address] Social History Tobacco Use Types Packs/Day Years [...] order cholesterol labs to be done at [facility] before the appointment. Please call her @ [phone] documented in this encounter Plan of Treatment Upcoming Encounters Date Type Department Care Team (Late st Contact Info) Description 03/13/2024 9:45 AM EDT Office Visit Dermatology at [facility] [address] [facility] [place] [phone] Emiliano Salinas MD [address] [facility], MANINDER Bhatt DERMATOLOGY [place], [place] [address] documented as of this encounter Visit Diagnoses Not on filedocumented in this encounter Care Teams C Programmer Relationship Specialty Start Date End Date Veronica Barrios APRN [address] [place] [address] PCP - General Family Medicine 08/27/22 03/17/23 documented as of this encounter
--- OUTSIDE RECORDS SUMMARY | 2024-02-15 16:35 | XMS_ITS | Encounter Summary ---
Author Organization [facility] [place] [address] Care Team Providers Care Theatrical Dresser Name Role Phone Veronica Barrios Liyah VALDES Primary Care Provider Reason for Visit * Reason Onset Date Comments Medication Change/management 11/27/2022 Encounter Details Date Type Department Care Team (Late st Contact Info) Description 11/27/2022 Telephone Cardiology at [address] [place] [address] Liam Noel MD [facility] [place] [address] Medication Change/management Social History Tobacco Use Types [...] 9:45 AM EDT Office Visit Dermatology at [place] [address] [facility] [place] [address] Emiliano Salinas MD [address] [facility], [place] [address] documented as of this encounter Visit Diagnoses Not on filedocumented in this encounter Care Teams Theatrical Dresser Relationship Specialty Start Date End Date Veronica Barrios APRN [address] [place] [address] PCP - General Family Medicine 08/27/22 03/17/23 documented as of this encounter
--- OUTSIDE RECORDS SUMMARY | 2024-02-15 16:36 | XMS_ITS | Encounter Summary ---
[place] [address] Care Team Providers Care Fact Checker Name Role Phone Mary Altamirano MD Primary Care Provider Encounter Details Date Type Department Care Team (Late st Contact Info) Description 06/14/2022 Telephone Cardiology at [address] [address] Dariela Manzano, RN Social History [...] way up. She can be reached at [phone]. Forward to Dr Santiago. * Telephone Encounter - Dariela Manzano RN - 06/14/2022 12:55 PM EST Telephone call from Ms Luong,states she has noted onset of muscle pain and aches as well as muscle spasms since initiating atorvastatin 80 mg daily. She has not tried [id number] dosing-she is agreeable to trying this. Last [...] non-daily basis) Blood tests in ~6 weeks [place] Forward to Dr Santiago documented in this encounter Plan of Treatment Upcoming Encounters Date Type Department Care Team (Late st Contact Info) Description 03/13/2024 9:45 AM EDT Office Visit Dermatology at [place] [address] [facility] [place] [address] Emiliano Salinas MD [address] [facility] [address], [place] [address] documented as of this encounter Visit Diagnoses Not on filedocumented in this encounter Care Teams Fact Checker Relationship Specialty Start Date End Date Mary Altamirano MD PCP - General Family Medicine 01/26/22 08/26/22 documented as of this encounter
--- OUTSIDE RECORDS SUMMARY | 2024-02-15 16:36 | XMS_ITS | Encounter Summary ---
Author Organization [facility] [place] [address] Care Team Providers Care Eligibility Counselor Name Role Phone Mary Altamirano MD Primary [...] 9:45 AM EDT Office Visit Dermatology at [place] [address] [facility] [place] [phone] Emiliano Salinas MD [address] [facility] [address], MANINDER Bhat[place] [address] documented as of this encounter Visit Diagnoses Not on filedocumented in this encounter Care Teams Eligibility Counselor Relationship Specialty Start Date End Date Mary Altamirano MD PCP - General Family Medicine 01/26/22 08/26/22 documented as of this encounter
--- OUTSIDE RECORDS SUMMARY | 2024-02-15 16:36 | XMS_ITS | Encounter Summary ---
[place] [address] Care Team Providers Care Skip Pitman Name Role Phone Mary Altamirano MD Primary Care Provider Encounter Details Date Type Department Care Team (Latest Contact Info) Description 08/01/2022 8:15 AM EST Laboratory Appointment Lab [address] [place] [address] Familial hypercholesterolemi a; THERESA (obstructive sleep apnea) [...] AM EDT Office Visit Dermatology at [place] [address] [facility] [place] [address] Emiliano Salinas MD [address] [facility] [address], BAKARI Bhatt DERMATOLOGY [place], [place] [address] documented as of this encounter Procedures Procedure [...] AM EST) Cholesterol, Total 366 mg/dL [facility] Comment: Lower Risk: <200 mg/dL Average Risk: 200-239 mg/dL Higher Risk: >fu=949 mg/dL Triglyceride 195 mg/dL [facility] Comment: Average Risk/Lower Risk: <150 mg/dL Borderline High Risk: 150-199 mg/dL High Risk: 200-499 mg/dL Very High Risk: >ab=199 mg/dL HDL Cholesterol 91 mg/dL [facility] Comment: Males: ?? Higher Risk: <40 mg/dL Females: ?? Higher Risk: <50 mg/dL LDL Cholesterol 236 mg/dL [facility] Comment: Lowest Risk: <100 mg/dL Lower Risk: 100-129 mg/dL Borderline High Risk: 130-159 mg/dL High Risk: 160-189 mg/dL Very High Risk: >on=727 mg/dL Cholesterol/HDL Ratio 4.0 ratio [facility] Lipid Interpretation See Note [facility] Comment: Lipid management should be guided by a patient? s ASCVD risk, goals and preferences. ACC/AHA Guidelines recommend high intensity statin if clinical ASCVD or LDL greater than or equal to 190 mg/dL. http://[email or web address].com/IYX-MRA-Mmkxgddsg Adults aged 40-75 with LDL 70-189 mg/dL should have their 10 year ASCVD risk estimated with the ACC/AHA ASCVD risk estimator and drafter http://tools.acc.org/ANXIZ-Grzf-Hgmouuarw/ Statin should be discussed if risk greater [...] Santiago MD CHEMISTRY ORDERABLES Performing Organization Address [facility] de Phone Number [facility] [place] [address] * (ABNORMAL) Apolipoprotein B (08/01/2022 7:52 AM EST) Pathologist [facility] Apolipoprotein B (OCTOBER) 169(H) mg/dL [facility] Comment: REFERENCE VALUE Desirable: <90 Above Desirable: 90-99 Borderline high: 100-119 High: 120-139 Very high: > or = 140 Test Performed by: [address] [address] Cleaner And Presser: Kyle Michel M.D. Ph.D.; CLIA# [id number] Blood 08/01/2022 7:52 AM EST 08/01/2022 12:39 PM EST Narrative Resulting Agency Comment Spec In Lab Delfina Santiago MD LAB SEND OUT ORDERAB LES Performing Organization Address [facility] Co de Phone Number [facility] [place] [address] * Hepatic Function Panel (08/01/2022 7:52 AM EST) Protein, Total 7.1 6.1 - 8.0 g/dL [facility] Albumin 4.5 3.2 - 5.2 g/dL [facility] Aspartate Aminotransferase 19 0 - 30 unit/L [facility] Alanine Aminotransferase 18 0 - 30 unit/L [facility] Alkaline Phosphatase 75 35 - 105 unit/L [facility] Bilirubin, Total 0.4 0.2 - 1.3 mg/dL [facility] Bilirubin, Direct 0.1 0.0 - 0.3 mg/dL [facility] Blood 08/01/2022 7:52 AM EST 08/01/2022 8:07 AM EST Narrative Resulting Agency Comment Spec In Lab Delfina Santiago MD CHEMISTRY ORDERABLES Performing Organization Address City/State/[facility] Co de Phone Number [facility] [place] [address] documented in this encounter Visit Diagnoses Diagnosis Familial hypercholesterolemia Pure hypercholesterolemia THERESA (obstructive sleep apnea) Obstructive sleep apnea (adult) (pediatric) documented in this encounter Care Teams Skip Pitman Relationship Specialty Start Date End Date Mary Altamirano MD PCP - General Family Medicine 01/26/22 08/26/22 documented as of this encounter
--- OUTSIDE RECORDS SUMMARY | 2024-02-15 16:36 | XMS_ITS | Encounter Summary ---
Author Organization [facility] [place] [address] Care Team Providers Care Scrap Burner Name Role Phone Juan Smith MD Primary Care Provider [phone] Reason for Referral * Consultation (Routine) - Closed Specialty Diagnoses / Procedures Referred By Contac t Referred To Contact Cardiology Diagnoses Familial hypercholesterolemia previos belt line feeder is retiring, pt would like to transfer care to Mary Sands MD [address] [place] [address] [facility] [address] [place] [phone] Referral ID Status Reason Start Date Expiration Date V isits Requested Visits Authorized [id number] Closed Consult, Test & Treat PCP Updated and/or Approved 10/12/2021 10/12/2022 10 10 Encounter Details Date Type Department Care Team (Latest Contact Info) Description 10/12/2021 Transcribe Orders eDH Incoming Referrals [phone] Mary Altamirano MD [address] [place] [address] Familial hypercholesterolemia Social History Tobacco Use [...] 9:45 AM EDT Office Visit Dermatology at [place] [address] [facility] [place] [address] Emiliano Salinas MD [address] [facility] [address], [place] [address] Scheduled Referrals Name Type Priority Associated Diagnoses Orde r Schedule Referral to Cardiology Outpatient Referral Routine Familial hypercholesterolemia Ordered: 10/12/2021 documented as of this encounter Visit Diagnoses Diagnosis Familial hypercholesterolemia Pure hypercholesterolemia documented in this encounter Care Teams Scrap Burner Relationship Specialty Start Date End Date Juan Smith MD [address] [place] [address] PCP - General Family Medicine 10/12/21 01/25/22 documented as of this encounter
--- OUTSIDE RECORDS SUMMARY | 2024-02-15 16:36 | XMS_ITS | Encounter Summary ---
[place] [address] Care Team Providers Care Director Of Accounts Receivable Name Role Phone Mary Altamirano MD Primary Care Provider Reason for Visit * Reason Comments Prior Authorization Repatha 140mg/mL pen s Encounter Details Date Type Department Care Team (Late st Contact Info) Description 08/06/2022 Specialty [place] [address] Skyler Garcia, SENIOR NETWORK ARCHITECT Social History Tobacco Use Types Packs/Day Years [...] Patient : 1950 Patient Address: [address] [facility] [address] (home) Medication Name: REPATHA SURECLICK 140 MG/ML SUBCUTANEOUS PEN INJECTOR Medication ID: [id number] Subscriber Insurance: [facility] Part D Subscriber Insurance Comment: Phone: Fax: Physician: KALEIGH ALEXANDRE Physician Comment: Sent Via: [facility] Gonsales: [id number] Ref/Case/PA#: Medication Strength Frequency Requested: evolocumab (Repatha SureClick) 140 mg/mL Pen Injector, 1 pen every 14 days Qty/Day Supply: 08/07 New Start: New to Therapy Diagnosis & ICD-10 Code: Familial hypercholesterolemia E78.01 Patient Notified: Left Voicemessage Submission Notes: None Skyler Garcia 08/06/22 2:14 PM * Nam Chan - 08/06/2022 2:07 PM EST [facility], Prior Authorization Approval Medication Name: REPATHA SURECLICK 140 MG/ML SUBCUTANEOUS PEN INJECTOR Medication ID: [id number] Approval Dates: 08/06/2022 to 02/03/2023 Insurance requirements/notes: None Other Notes: None Case/Reference #: [id number] Approval notification Received via: [facility] Copay: $0 Copay assistance: [employer] Copay Notes: If cost were to become unaffordable we can assess eligibility for any currently open grants, or refer to [facility] MAP for enrollment in shingle inspector assistance. Insurance mandated Pharmacy: Unknown Fillable at [facility] Specialty Pharmacy: Yes Pharmacy staff will be reaching out to the patient to inform them of their medication's approval [facility]. If applicable, a pharmacist will speak with the patient to offer our specialty pharmacy services and to arrange delivery of their medication. Nam Chan 08/07/22 8:52 AM documented in this encounter Plan of Treatment Upcoming Encounters Date Type Department Care Team (Late st Contact Info) Description 03/13/2024 9:45 AM EDT Office Visit Dermatology at [place] [address] [facility] [place] [address] Emiliano Salinas MD [address], BAKARI [place] [address] documented as of this encounter Visit Diagnoses Not on filedocumented in this encounter Care Teams Director Of Accounts Receivable Relationship Specialty Start Date End Date Mary Altamirano MD PCP - General Family Medicine 01/26/22 08/26/22 documented as of this encounter
--- OUTSIDE RECORDS SUMMARY | 2024-02-15 16:36 | XMS_ITS | Encounter Summary ---
[place] [address] Care Team Providers Care Clinic Clerk Name Role Phone Mary Altamirano MD Primary Care Provider [phone] Reason for Visit * Reason Comments Medication Management Patient Education Medication Refill Encounter Details Date Type Department Care Team (Late st Contact Info) Description 08/07/2022 Specialty [place] [phone] Xochitl Loyola RPH Social History Tobacco Use [...] Requirements: no Medication Reconciliation Discrepancies (compared to [facility] med list) -none Medication List: Current Outpatient [...] azelastine (ASTELIN) 137 mcg (0.1 %) Aerosol, [place] 0 ??? PROVENTIL HFA 90 mcg/actuation HFA [...] Once daily ??? Mometasone (NASONEX) 50 mcg/Actuation [place] 2 [place](s) each nostril, Nasal, Twice daily No current [...] specialty services: Yes Patient accepted offer to membership counselor: adherence/missed doses, doses and administration, pharmacy [...] counter products discussed, reminder to refill or brick picker medication discussed, start medication discussed, timing [...] Social Assessment: Does patient have a primary career development associate: No Does patient have an emergency contact on file: Yes Does patient need referral to social insurance specialist: No Does patient need referral to advocacy [...] were made at the appointment and [facility] (summary located at top of note) for provider review and follow up. Xochitl Loyola RPH 08/07/22 1:40 PM documented in this encounter Plan of Treatment Upcoming Encounters Date Type Department Care Team (Late st Contact Info) Description 03/13/2024 9:45 AM EDT Office Visit Dermatology at [place] [address] [facility] [place] [address] Emiliano Salinas MD [address], [place] [address] documented as of this encounter Visit Diagnoses Not on filedocumented in this encounter Care Teams Clinic Clerk Relationship Specialty Start Date End Date Mary Altamirano MD PCP - General Family Medicine 01/26/22 08/26/22 documented as of this encounter
--- OUTSIDE RECORDS SUMMARY | 2024-02-15 16:36 | XMS_ITS | Encounter Summary ---
Author Organization [facility] [place] [address] Care Team Providers Care Auto Mechanic Name Role Phone Mary Altamirano MD Primary Care Provider [phone] Reason for Referral * Diagnostic Test (Routine) - Closed Specialty Diagnoses / Procedures Referred By Contac t Referred To Contact Diagnoses Familial hypercholesterolemia THERESA (obstructive sleep apnea) Dyspnea, unspecified type Procedures Echocardiogram Stress (Treadmill) Delfina Alexandre MD [facility] [place] [address] [facility] [place] [address] Referral ID Status Reason Start Date Expiration Date V isits Requested Visits Authorized [id number] Closed Specialty Service Requested 05/21/2022 05/21/2023 1 1 Reason for Visit * Diagnostic Test (Routine) - Closed Specialty Diagnoses / Procedures Referred By Contac t Referred To Contact Diagnoses Familial hypercholesterolemia THERESA (obstructive sleep apnea) Dyspnea, unspecified type Procedures Echocardiogram Stress (Treadmill) Delfina Alexandre MD [facility] [place] [address] [facility] [place] [address] Referral ID Status Reason Start Date Expiration Date V isits Requested Visits Authorized [id number] Closed Specialty Service Requested 05/21/2022 05/21/2023 1 1 Encounter Details Date Type Department Care Team (Latest Contact Info) Description 08/01/2022 8:01 AM EST - 08/01/2022 11:59 PM EST Hospital Encounter Non-[place] [address] Delfina Alexandre MD [facility] [place], [place] [id number] Familial hypercholesterolemi a; THERESA (obstructive sleep apnea); [...] End Date fluticasone propionate (Flonase) 50 mcg/actuation [place], Suspension Every 12 hours. 10/17/2020 meloxicam (Mobic) [...] azelastine (ASTELIN) 137 mcg (0.1 %) Aerosol, [place] 0 11/06/2017 0 3 ASCORBATE CALCIUM (VITAMIN C ORAL) Take by mouth. 3 ERGOCALCIFEROL, VITAMIN D2, (VITAMIN D ORAL) Take by mouth. 09/03 3 multivitamin (THERAGRAN) tablet Take 1 tablet by mouth daily. 3 fexofenadine (EVANGELINA) 180 mg tablet 180 mg, PO, Once daily 08/28/2010 3 Mometasone (NASONEX) 50 mcg/Actuation [place] 2 [place](s) each nostril, Nasal, Twice daily 08/28/2010 3 documented as of this encounter Plan of Treatment Upcoming Encounters Date Type Department Care Team (Late st Contact Info) Description 03/13/2024 9:45 AM EDT Office Visit Dermatology at [place] [address] [facility] [address] [place] [address] Emiliano Salinas MD [address] [facility] [address], BAKARI [place] [address] documented as of this encounter Procedures Procedure Name Priority Date/Time Associated Diagnosis Comments STRESS ECHO W LMTD SPEC DOPP COLOR DOPP Routine 08/01/2022 9:19 AM EST Familial hypercholesterolemia THERESA (obstructive sleep apnea) Dyspnea, unspecified type documented in this encounter Results * STRESS ECHO W LMTD SPEC DOPP COLOR DOPP (08/01/2022 9:19 AM EST) EF 65 HEARTOsmosis SYSTEM Anatomical Region Laterality Modality Cardiac Other 08/01/2022 8:38 AM EST Narrative 08/01/2022 9:38 AM EST ? Exercise Stress Echocardiogram Report Name: ARNOLDYESSENIA Meyer ?Study Date: 08/01/2022 08:38 AMBP: 142/74 mmHg ? Patient Location: 4A ? HR: 69 : 1950 ? Height: 161 cm ? Account: [id number] Age: 72 yrs ? Weight: 72 kg Gender: Female ?BSA: 1.8 m2 Ordering Physician: DELFINA ALEXANDRE Referring Physician: DELFINA ALEXANDRE Performed By: SOO Woods Reason For Study: Abnormal EKG Exam Location: [facility]. Interpretation Summary IMPRESSION: There was no [...] 69 : 1950 Height: 161 cm Account: [id number] Age: 72 yrs Weight: 72 kg Gender: Female BSA: 1.8 m2 Ordering Physician: DELFINA ALEXANDRE Referring Physician: DELFINA ALEXANDRE Performed By: SOO Woods Reason For Study: Abnormal EKG Exam Location: [facility]. Interpretation Summary IMPRESSION: There was no [...] type documented in this encounter Care Teams Auto Mechanic Relationship Specialty Start Date End Date Mary Altamirano MD PCP - General Family Medicine 01/26/22 08/26/22 documented as of this encounter
--- OUTSIDE RECORDS SUMMARY | 2024-02-15 16:36 | XMS_ITS | Encounter Summary ---
Author Organization [facility] [place] [address] Care Team Providers Care Therapeutic Riding Instructor Name Role Phone Mary Altamirano MD Primary Care Provider [phone] Encounter Details Date Type Department Care Team [...] EDT Office Visit Dermatology at [place] [address] [facility] [place] [address] Emiliano Salinas MD [address], MANINDER [place] [address] documented as of this encounter Visit Diagnoses Not on filedocumented in this encounter Care Teams Therapeutic Riding Instructor Relationship Specialty Start Date End Date Mary Altamirano MD PCP - General Family Medicine 01/26/22 08/26/22 documented as of this encounter
--- OUTSIDE RECORDS SUMMARY | 2024-02-15 16:36 | XMS_ITS | Encounter Summary ---
Author Organization [facility] Address [facility] [place] [address] Care Team Providers Care Earth Burner Name Role Phone Mary Altamirano MD Primary Care Provider Reason for Referral * Diagnostic Test (Routine) - Closed Specialty Diagnoses / Procedures Referred By Contac t Referred To Contact Diagnoses Familial hypercholesterolemia THERESA (obstructive sleep apnea) Dyspnea, unspecified type Procedures Echocardiogram Stress (Treadmill) Delfina Alexandre MD [facility] [place] [address] [facility] [place] [address] Referral ID Status Reason Start Date Expiration Date V isits Requested Visits Authorized [id number] Closed Specialty Service Requested 05/21/2022 05/21/2023 1 1 Encounter Details Date Type Department Care Team (Late st Contact Info) Description 05/21/2022 10:20 AM EST Office Visit Cardiology at [address] [address] Delfina Alexandre MD [facility] [place] [address] Familial hypercholesterolemia; THERESA (obstructive sleep apnea); Dyspnea, [...] symptoms. 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 ??She was in 2002 and has had a significant other for many years. ??Her significant other (Deacon Peterson) lives in [place].?She has??5??children and 3 biologic and 8 step??grandchildren. [...] azelastine (ASTELIN) 137 mcg (0.1 %) Aerosol, [place] 0 ??? PROVENTIL HFA 90 mcg/actuation HFA [...] Once daily ??? 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 [...] non-daily basis) Blood tests in ~6 weeks [place] Time spent for this clinic appointment on the date of service includes: 25 minutes review of her chart and previous lipid evaluation and recommendations; 30 minutes ovbs-em-slah and 10 minutes coordination of care 1) lftz-ds-bvln counseling as noted above 2) reviewing past medical records, cardiac testing, results of laboratory testing 3) coordinating care with other physicians and allied health care providers Delfina Alexandre MD, Vonnie, FACC, FNLA Attending Canal Boat Operator Sports Cardiology Program Preventive Cardiology Lipid Clinic Advanced Hypertension Clinic documented in this encounter Plan of Treatment Upcoming Encounters Date Type Department Care Team (Late st Contact Info) Description 03/13/2024 9:45 AM EDT Office Visit Dermatology at [place] [address] [place] [phone] Emiliano Salinas MD [address], [place] [address] documented as of this encounter Results * [...] 1950 ? Height: 161 cm ? Account: [id number] Age: 72 yrs ? Weight: 72 kg Gender: Female ?BSA: 1.8 m2 Ordering Physician: DELFINA ALEXANDRE Referring Physician: DELFINA ALEXANDRE Performed By: SOO Woods Reason For Study: Abnormal EKG Exam Location: [facility]. Interpretation Summary IMPRESSION: There was [...] 68 : 1950 Height: 161 cm Account: [id number] Age: 72 yrs Weight: 72 kg Gender: Female BSA: 1.8 m2 Ordering Physician: DELFINA ALEXANDRE Referring Physician: DELFINA ALEXANDRE Performed By: SOO Woods Reason For Study: Abnormal EKG Exam Location: [facility]. Interpretation Summary IMPRESSION: There was [...] type documented in this encounter Care Teams Earth Burner Relationship Specialty Start Date End Date Mary Altamirano MD PCP - General Family Medicine 01/26/22 08/26/22 documented as of this encounter
--- OUTSIDE RECORDS SUMMARY | 2024-02-15 16:36 | XMS_ITS | Encounter Summary ---
Author Organization [facility] Address [facility] [place] [address] Care Team Providers Care Grinding Supervisor Name Role Phone Juan Smith MD Primary Care Provider [phone] Reason for Visit * Reason Comments Medication Refill Encounter Details Date Type Department Care Team (Late st Contact Info) Description 04/26/2020 Refill Dermatology at [facility] [address] [place] [address] Vern Salmeron MD [facility] [address] [place] [address] Hair thinning Social History Tobacco Use Types [...] 9:45 AM EDT Office Visit Dermatology at [place] [address] [facility] [address] [place] [address] Emiliano Salinas MD [address], [place]AR[place] [address] documented as of this encounter Visit Diagnoses Diagnosis Hair thinning Alopecia, unspecified documented in this encounter Care Teams Grinding Supervisor Relationship Specialty Start Date End Date Juan Smith MD [address] [place] [address] PCP - General Family Medicine 05/10/16 09/02/21 documented as of this encounter
--- OUTSIDE RECORDS SUMMARY | 2024-02-15 16:36 | XMS_ITS | Encounter Summary ---
[place] [address] Care Team Providers Care Irrigation Technician Name Role Phone Juan Smith MD Primary Care Provider [phone] Reason for Visit * Reason Comments Medication Refill Encounter Details Date Type Department Care Team (Late st Contact Info) Description 10/12/2020 Refill Cardiology at [address] [phone] Tory Montalvo MD Medication Refill Social History [...] 9:45 AM EDT Office Visit Dermatology at [address] [place] [address] Emiliano Salinas MD [address], [place] [address] documented as of this encounter Visit Diagnoses Diagnosis Familial hypercholesterolemia Pure hypercholesterolemia documented in this encounter Care Teams Irrigation Technician Relationship Specialty Start Date End Date Juan Smith MD [address] [place] [address] PCP - General Family Medicine 05/10/16 09/02/21 documented as of this encounter
--- OUTSIDE RECORDS SUMMARY | 2024-02-15 16:36 | XMS_ITS | Encounter Summary ---
Author Organization [facility] [place] [address] Care Team Providers Care Personnel Training Officer Name Role Phone Juan Smith MD Primary Care Provider [phone] Reason for Visit * Reason Onset Date Comments Follow-up 04/26/2020 med change Encounter Details Date Type Department Care Team (Late st Contact Info) Description 04/26/2020 Telephone Cardiology at [address] [phone] Rere Stock, RN Follow-up (med change) Social [...] and have the f/u labs done at [facility] prior to the visit. Order e-faxed to [facility] and a copy mailed to [...] 9:45 AM EDT Office Visit Dermatology at [place] [address] [place] [address] Emiliano Salinas MD [address], [place] [address] documented as of this encounter Visit Diagnoses Diagnosis Familial hypercholesterolemia Pure hypercholesterolemia documented in this encounter Care Teams Personnel Training Officer Relationship Specialty Start Date End Date Juan Smith MD [address] [place] [address] PCP - General Family Medicine 05/10/16 09/02/21 documented as of this encounter
--- OUTSIDE RECORDS SUMMARY | 2024-02-15 16:36 | XMS_ITS | Encounter Summary ---
[place] [address] Care Team Providers Care Barrel Burner Name Role Phone Juan Smith MD Primary Care Provider [phone] Reason for Visit * Reason Onset Date Comments Questions 04/04/2021 cholesterol med restart Encounter Details Date Type Department Care Team (Late st Contact Info) Description 04/04/2021 Telephone Cardiology at [address] [phone] Rere Stock, RN Questions (cholesterol med restart) [...] left for the pt to call this teletypewriter installer to see if her symptoms have resolved and when she is going to restart her meds. Awaiting a call back documented in this encounter Plan of Treatment Upcoming Encounters Date Type Department Care Team (Late st Contact Info) Description 03/13/2024 9:45 AM EDT Office Visit Dermatology at [place] [address] [facility] [place] [address] Emiliano Salinas MD [address], [place] [address] documented as of this encounter Visit Diagnoses Not on filedocumented in this encounter Care Teams Barrel Burner Relationship Specialty Start Date End Date Juan Smith MD [address] [place] [address] PCP - General Family Medicine 05/10/16 09/02/21 documented as of this encounter
--- OUTSIDE RECORDS SUMMARY | 2024-02-15 16:36 | XMS_ITS | Encounter Summary ---
Author Organization [facility] [place] [address] Care Team Providers Care Snaker Driving Horses Name Role Phone Mary Altamirano MD Primary Care Provider Encounter Details Date Type Department Care Team (Latest Contact Info) Description 04/10/2022 4:00 PM EDT TH Visit (TeleHealth) Cardiology at [address] [address] Derick Acosta, [facility] [address] Nutritional counseling Social History Tobacco Use Types [...] Vascular Center Cardiovascular Medicine Cardiology Nutrition [place] [address] Initial Nutrition Assessment 04/09/22 Identification and Chief Complaint Yessenia Luong is a 72 y.o. patient of Mary Campbell MD referred to Cardiology Dietitian Software Developer Mid Level By Delfina Santiago MD, Lipidologist, for nutrition [...] 40% carbohydrate) with the goals: o Meet BINMAN for vitamin D, calcium, magnesium, and potassium [...] coaching. cc: ?? Mary Campbell MD [address] [facility] [address] documented in this encounter Plan of Treatment Upcoming Encounters Date Type Department Care Team (Late st Contact Info) Description 03/13/2024 9:45 AM EDT Office Visit Dermatology at [place] [address] [facility] [place] [address] Emiliano Salinas MD [address], [place]AR[place] [address] documented as of this encounter Visit Diagnoses Diagnosis Nutritional counseling documented in this encounter Care Teams Snaker Driving Horses Relationship Specialty Start Date End Date Mary Altamirano MD PCP - General Family Medicine 01/26/22 08/26/22 documented as of this encounter
--- OUTSIDE RECORDS SUMMARY | 2024-02-15 16:36 | XMS_ITS | Encounter Summary ---
[place] [address] Care Team Providers Care Shade Maker Name Role Phone Mary Altamirano MD Primary Care Provider Reason for Visit * Reason Onset Date Comments Prior Authorization 10/10/2021 Nexletol PA renewal Encounter Details Date Type Department Care Team (Late st Contact Info) Description 10/10/2021 Telephone Cardiology at [address] [phone] Rere Stock switchboard wirer (Nexletol PA renewal) Social History Tobacco Use [...] left for the pt to call this medical technical writer to confirm that she is taking the medication and at what dose. She is also needing to schedule a f/u visit w/Dr Montalvo. Call placed to the [facility] pharmacy in [place], [place] phone [phone] S/w pharmacy staff. The prescription was processed. Pt's co-pay is $60/90 day supply. They will have to order the medication. It should been in by 10/13/21. Awaiting a call back from the pt to get/give the above information. * Telephone Encounter - Rere Stock RN - 10/10/2021 7:16 PM EDT PA request received from [facility] in [place], [place] phone [phone] for Nexletol. Request processed via Cover My Meds. Insurance information: [facility] managed Medicare. ID#: [id number] BIN: [id number] PCN: MIDPRIME GR: [id number] Yessenia Ag Gonsales: [id number] - PA help? Call us at Outcome Approvedtoday CaseId:[id number];Status:Approved;Review Type:Prior Auth;Coverage Start Date:09/10/2021;Coverage End Date:10/10/2022; Drug Nexletol 180MG tablets Form [employer] Electronic PA Form (2016 NCPDP) documented in this encounter Plan of Treatment Upcoming Encounters Date Type Department Care Team (Late st Contact Info) Description 03/13/2024 9:45 AM EDT Office Visit Dermatology at [place] [address] [place] [phone] Emiliano Salinas MD [address], BAKARI Bhat[place] [address] documented as of this encounter Visit Diagnoses Not on filedocumented in this encounter Care Teams Shade Maker Relationship Specialty Start Date End Date Mary Altamirano MD PCP - General Family Medicine 09/03/21 10/11/21 documented as of this encounter
--- OUTSIDE RECORDS SUMMARY | 2024-02-15 16:36 | XMS_ITS | Encounter Summary ---
Author Organization [facility] [place] [address] Care Team Providers Care Precision Machining Instructor Name Role Phone Mary Altamirano MD Primary Care Provider [phone] Reason for Referral * Diagnostic Test (Routine) - Closed Specialty Diagnoses / Procedures Referred By Contac t Referred To Contact Radiology Diagnoses Familial hypercholesterolemia Procedures CT Heart For Coronary Calcium wo Contrast (Prepaid) Tory Montalvo MD [facility] [place] [address] [place] [address] Referral ID Status Reason Start Date Expiration Date V isits Requested Visits Authorized [id number] Closed Specialty Service Requested 10/28/2020 04/30/2022 1 1 Reason for Visit * Diagnostic Test (Routine) - Closed Specialty Diagnoses / Procedures Referred By Contac t Referred To Contact Radiology Diagnoses Familial hypercholesterolemia Procedures CT Heart For Coronary Calcium wo Contrast (Prepaid) Tory Montalvo MD [facility] [place] [address] [place] [address] Referral ID Status Reason Start Date Expiration Date V isits Requested Visits Authorized [id number] Closed Specialty Service Requested 10/28/2020 04/30/2022 1 1 Encounter Details Date Type Department Care Team (Latest Contact Info) Description 02/16/2022 10:23 AM EDT - 02/16/2022 11:59 PM EDT Hospital Encounter CT Scan at [facility] [place] [address] Tory Montalvo MD Familial hypercholesterolemia Discharge Disposition: [...] End Date fluticasone propionate (Flonase) 50 mcg/actuation [place], Suspension Every 12 hours. 10/17/2020 EPINEPHrine 0.3 [...] azelastine (ASTELIN) 137 mcg (0.1 %) Aerosol, [place] 0 11/06/2017 0 09/03/2022 ASCORBATE CALCIUM (VITAMIN C ORAL) Take by mouth. 09/03/2022 ERGOCALCIFEROL, VITAMIN D2, (VITAMIN D ORAL) Take by mouth. multivitamin (THERAGRAN) tablet Take 1 tablet by mouth daily. 09/03/2022 fexofenadine (EVANGELINA) 180 mg tablet 180 mg, PO, Once daily 08/28/2010 09/03/2022 Mometasone (NASONEX) 50 mcg/Actuation [place] 2 [place](s) each nostril, Nasal, Twice daily 08/28/2010 09/03/2022 documented as of this encounter Plan of Treatment Upcoming Encounters Date Type Department Care Team (Late st Contact Info) Description 03/13/2024 9:45 AM EDT Office Visit Dermatology at [place] [address] [facility] [place] [address] Emiliano Salinas MD [address] [facility] [address], BAKAR[place] [address] documented as of this encounter Procedures Procedure [...] who have questions please contact the health pharmacist critical care that requested your imaging first. ? Electronically signed by: Celestina Murillo MD, [facility] ([phone]), at 02/16/2022 3:30 PM Narrative 02/16/2022 3:30 PM EDT EXAMINATION: CT HEART FOR CORONARY CALCIUM WO CONTRAST (PREPAID) CLINICAL HISTORY: Hyperlipidemia 120; patient with elevated LDL and side effects to medications COMPARISON: None. TECHNIQUE: 3.0 mm thick axial contiguous sections through the heart were obtained via ECG-gated axial mode acquisition without intravenous contrast. Craniocaudal coverage and [id number]-yx-[id number] were restricted to the heart. Post-processing was [...] age, race/ethnicity, and gender: 67% Reference: [place] SESAY, Rico H, Nella R, et al. [...] mode acquisition without intravenouscontrast. Craniocaudal coverage and mseii-rp-kidu were restricted to the heart. Post-processing was [...] patients who have questions please contactthe health pharmacist critical care that requested your imaging first. Electronically signed by: Celestina Murillo MD, [facility] ([phone]), at 02/16/2022 3:30 PM Tory Montalvo MD IMG CT ORDERABLES documented in this encounter Visit Diagnoses Diagnosis Familial hypercholesterolemia Pure hypercholesterolemia documented in this encounter Care Teams Precision Machining Instructor Relationship Specialty Start Date End Date Mary Altamirano MD PCP - General Family Medicine 01/26/22 08/26/22 documented as of this encounter
--- OUTSIDE RECORDS SUMMARY | 2024-02-15 16:36 | XMS_ITS | Encounter Summary ---
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 She was in 2002 and has had a significant other for many years. Boyfriend (Deacon Peterson) lives in [place]. She has 5 children (2 biologic and [...] azelastine (ASTELIN) 137 mcg (0.1 %) Aerosol, [place] 0 ??? PROVENTIL HFA 90 mcg/actuation HFA [...] Once daily ??? Mometasone (NASONEX) 50 mcg/Actuation [place] 2 [place](s) each nostril, Nasal, Twice daily No current facility-administered medications for this visit. Allergies Bee pollen, Morphine, Sulfa (sulfonamide antibiotics), and Voltaren [diclofenac sodium] Physical Exam not performed - [facility] Labs Total cholesterol 168 mg/dL Triglycerides 89 [...] will have her labs drawn at [facility] in [facility] about a week before her visit. Plan ?? Medication changes: discontinue ezetimibe ?? Investigations: labs and a visit 6 weeks ?? Counseling: I explained my impression and answered all Claudette's questions. Follow up early August TIUMR CHAMBERS MD 06/18/2020 CC: Juan Smith MD documented in this encounter Plan of Treatment Upcoming Encounters Date Type Department Care Team (Late st Contact Info) Description 03/13/2024 9:45 AM EDT Office Visit Dermatology at [place] [address] [facility] [address] [place] [address] Emiliano Salinas MD [address], [place] [address] documented as of this encounter Visit Diagnoses Diagnosis Familial hypercholesterolemia Pure hypercholesterolemia documented in this encounter Care Teams Tv Production Assistant Relationship Specialty Start Date End Date Juan Smith MD [facility] [place] [address] [address] PCP - General Family Medicine 05/10/16 09/02/21 documented as of this encounter
--- OUTSIDE RECORDS SUMMARY | 2024-02-15 16:36 | XMS_ITS | Encounter Summary ---
Author Organization [facility] Address [facility] [place] [address] Care Team Providers Care Forensic Manager Name Role Phone Juan Smith MD Primary Care Provider [phone] Reason for Referral * Diagnostic Test (Routine) - Closed Specialty Diagnoses / Procedures Referred By Contac t Referred To Contact Radiology Diagnoses Familial hypercholesterolemia Procedures CT Heart For Coronary Calcium wo Contrast (Prepaid) Tory Chambers MD [facility] [place] [address] [facility] [place] [address] Referral ID Status Reason Start Date Expiration Date V isits Requested Visits Authorized [id number] Closed Specialty Service Requested 10/28/2020 04/30/2022 1 1 Encounter Details Date Type Department Care Team (Latest Contact Info) Description 10/28/2020 3:20 PM EDT Office Visit Cardiology at [address] [address] Tory Chambers MD Familial hypercholesterolemia [...] documented in this encounter Progress Notes * Troy Chambers MD - 10/28/2020 3:20 PM EDT [facility] Lipid Clinic-Follow Up [...] Social history:??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 ??She was in 2002 and has had a significant other for many years. ??Her significant other (Deacon Peterson) lives in [place].?She has??5??children and 3 biologic and 8 step??grandchildren. [...] azelastine (ASTELIN) 137 mcg (0.1 %) Aerosol, [place] 0 ??? PROVENTIL HFA 90 mcg/actuation HFA [...] Once daily ??? Mometasone (NASONEX) 50 mcg/Actuation [place] 2 [place](s) each nostril, Nasal, Twice daily No current [...] at [place] [address] [facility] [place] [address] Emiliano Salinas MD [address] [facility], BAKARI [place] [address] [phone] (work) documented as of this encounter Results [...] who have questions please contact the health career development coordinator that requested your imaging first. ? Electronically signed by: Celestina Murillo MD, [facility] ([phone]), at 02/16/2022 3:30 PM Narrative 02/16/2022 3:30 PM EDT EXAMINATION: CT HEART FOR CORONARY CALCIUM WO CONTRAST (PREPAID) CLINICAL HISTORY: Hyperlipidemia 120; patient with elevated LDL and side effects to medications COMPARISON: None. TECHNIQUE: 3.0 mm thick axial contiguous sections through the heart were obtained via ECG-gated axial mode acquisition without intravenous contrast. Craniocaudal coverage and qqmxc-sx-fegd were restricted to the heart. Post-processing was [...] mode acquisition without intravenouscontrast. Craniocaudal coverage and spray-fv-vhzn were restricted to the heart. Post-processing was [...] patients who have questions please contactthe health career development coordinator that requested your imaging first. Tory Chambers MD IMG CT ORDERABLES documented in this encounter Visit Diagnoses Diagnosis Familial hypercholesterolemia Pure hypercholesterolemia Familial hypercholesterolemia Pure hypercholesterolemia documented in this encounter Care Teams Forensic Manager Relationship Specialty Start Date End Date Juan Smith MD [address] [place] [address] PCP - General Family Medicine 05/10/16 09/02/21 documented as of this encounter
--- OUTSIDE RECORDS SUMMARY | 2024-02-15 16:36 | XMS_ITS | Encounter Summary ---
Author Organization [facility] [place] [address] Care Team Providers Care Compensation And Benefits Analyst Name Role Phone Mary Altamirano MD Primary Care Provider Encounter Details Date Type Department Care Team (Late st Contact Info) Description 08/01/2022 11:00 AM EST Office Visit Cardiology at [address] [place] [phone] Delfina Santiago MD [facility] [place] [address] Nell Inman, [facility] Familial hypercholesterolemia; THERESA (obstructive sleep apnea); Dyspnea, [...] causing symptoms. 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 ??She was in 2002 and has had a significant other for many years. ??Her significant other (Deacon Peterson) lives in [place].?She has??5??children and 3 biologic and 8 step??grandchildren. [...] azelastine (ASTELIN) 137 mcg (0.1 %) Aerosol, [place] 0 ??? PROVENTIL HFA 90 mcg/actuation HFA [...] Once daily ??? 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 [...] previous lipid evaluation and recommendations; 30 minutes qzua-tc-xaci and 10 minutes coordination of care 1) qkep-yt-jauo counseling as noted above 2) reviewing past medical records, cardiac testing, results of laboratory testing 3) coordinating care with other physicians and allied health care providers This patient was seen and evaluated by both Delfina Santiago MD EdD [facility] JASON and Courtney Knapps part of a Collaborative Practice Agreement. Dr. Santiago supervised in and participated in all aspects of this appointment This clinic note includes: 1. History, Review of Symptoms, Examination, Vital Signs, Medication Review, Assessment and Plan byDelfina Santiago MD, Vonnie 2. Documentation of evaluation, recommendations, and counseling by Nell Inman PharmD. Delfina Santiago MD, Vonnie, ANJALI, JASON Attending Auditor/Quality Sports Cardiology Program Preventive Cardiology Lipid Clinic Advanced Hypertension Clinic * Nell Inman, [facility] - 08/01/2022 11:00 AM EST Cardiology Education: Multi-Specialty Visit Delfina Santiago MD, Vonnie, ANJALI, JASON & Nell Inman PharmD, [facility] Visit Type: Yjpk-uk-Rmaj Summary of Recommendations & Next Steps: The [...] management of hyperlipidemia. 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 She was in 2002. ??? [...] Once daily ??? Mometasone (NASONEX) 50 mcg/Actuation [place] 2 [place](s) each nostril, Nasal, Twice daily ??? atorvastatin [...] azelastine (ASTELIN) 137 mcg (0.1 %) Aerosol, [place] 0 ??? PROVENTIL HFA 90 mcg/actuation HFA [...] 9:45 AM EDT Office Visit Dermatology at [place] [address] [facility] [place] [address] Emiliano Salinas MD [address], [place] [address] documented as of this encounter Visit Diagnoses Diagnosis Familial hypercholesterolemia Pure hypercholesterolemia THERESA (obstructive sleep apnea) Obstructive sleep apnea (adult) (pediatric) Dyspnea, unspecified type documented in this encounter Care Teams Compensation And Benefits Analyst Relationship Specialty Start Date End Date Mary Altamirano MD PCP - General Family Medicine 01/26/22 08/26/22 documented as of this encounter
--- OUTSIDE RECORDS SUMMARY | 2024-02-15 16:36 | XMS_ITS | Encounter Summary ---
[place] [address] Care Team Providers Care Regional Transfer Liaison Name Role Phone Mary Altamirano MD Primary Care Provider [phone] Reason for Visit * Reason Onset Date Comments Medication Refill 10/09/2021 Encounter Details Date Type Department Care Team (Late Contact [facility]) Description 10/09/2021 Telephone Cardiology at [address] [phone] Aan Horan, incident response specialist Refill Social History Tobacco Use Types Packs/Day [...] of Dr. Montalvo Scripts to go to [facility] in [facility]. Chart reviewed. documented in this encounter Plan of Treatment Upcoming Encounters Date Type Department Care Team (Late st Contact Info) Description 03/13/2024 9:45 AM EDT Office Visit Dermatology at [place] [address] [place] [address] Emiliano Salinas MD [address], BAKAR[place] [address] documented as of this encounter Visit Diagnoses Not on filedocumented in this encounter Care Teams Regional Transfer Liaison Relationship Specialty Start Date End Date Mary Altamirano MD PCP - General Family Medicine 09/03/21 10/11/21 documented as of this encounter
--- OUTSIDE RECORDS SUMMARY | 2024-02-15 16:36 | XMS_ITS | Encounter Summary ---
Author Organization [facility] Address [facility] [place] [address] Care Team Providers Care Senior International Tax Manager Name Role Phone Mary Altamirano MD Primary Care Provider Encounter Details Date Type Department Care Team (Latest Contact Info) Description 04/06/2022 11:00 AM EDT TH Visit (TeleHealth) Cardiology at [address] [address] [facility] [place] [address] Nutritional counseling Social History Tobacco Use Types [...] 9:45 AM EDT Office Visit Dermatology at [place] [address] [facility] [place] [address] Emiliano Salinas MD [address], BAKARI [place] [address] documented as of this encounter Visit Diagnoses Diagnosis Nutritional counseling documented in this encounter Care Teams Senior International Tax Manager Relationship Specialty Start Date End Date Mary Altamirano MD PCP - General Family Medicine 01/26/22 08/26/22 documented as of this encounter
--- OUTSIDE RECORDS SUMMARY | 2024-02-15 16:36 | XMS_ITS | Encounter Summary ---
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, pt would like to transfer care to Mary Sands MD [address] [place] [address] [facility] [address] [place] [id number] Referral ID Status Reason Start Date Expiration Date V isits Requested Visits Authorized [id number] Closed Consult, Test & Treat PCP Updated and/or Approved 10/12/2021 10/12/2022 10 10 Encounter Details Date Type Department Care Team (Latest Contact Info) Description 11/24/2021 1:00 PM EDT Office Visit Cardiology at [address] [address] Delfina Santiago MD [facility] [place] [address] Familial hypercholesterolemia Social History Tobacco Use [...] 412 LDL 296 HDL 93 TG 118 [address] total cholesterol 273 LDL 151 HDL 75 [...] symptoms. 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 ??She was in 2002 and has had a significant other for many years. ??Her significant other (Yoshalom Peterson) lives in [place].?She has??5??children and 3 biologic and 8 step??grandchildren. [...] azelastine (ASTELIN) 137 mcg (0.1 %) Aerosol, [place] 0 ??? PROVENTIL HFA 90 mcg/actuation HFA [...] Once daily ??? 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 Social [...] about 6 weeks. These will be at [facility] 01/22/22 ADDENDUM 01/17/22 apoB 89Lp(a) 19.8 (ULN < 75) Total cholesterol 212 LDL 115 HDL 59 TG 190 Time spent for this clinic appointment on the date of service includes: 25 minutes review of her chart and previous lipid evaluation and recommendations; 30 minutes apdu-if-eiug and 10 minutes coordination of care 1) upgj-wl-moom counseling as noted above 2) reviewing past medical records, cardiac testing, results of laboratory testing 3) coordinating care with other physicians and allied health care providers Delfina Santiago MD, Vonnie, FACC, FNLA Attending Commercial Loan Closer Sports Cardiology Program Preventive Cardiology Lipid Clinic Advanced Hypertension Clinic documented in this encounter Plan of Treatment Upcoming Encounters Date Type Department Care Team (Late st Contact Info) Description 03/13/2024 9:45 AM EDT Office Visit Dermatology at [place] [address] [facility] [place] [address] Emiliano Salinas MD [address], [place] [address] documented as of this encounter Results * Apolipoprotein B (02/16/2022 11:50 AM EDT) Pathologist [facility] Apolipoprotein B (OCTOBER) 84 mg/dL [facility] Comment: REFERENCE VALUE Desirable: <90 Above Desirable: 90-99 Borderline high: 100-119 High: 120-139 Very high: > or = 140 Test Performed by: [address] [address] Coil Maker: Kyle Michel M.D. Ph.D.; CLIA# [id number] Blood 02/16/2022 11:5 0 AM EDT 02/16/2022 3:50 PM EDT Narrative Resulting Agency Comment Spec In Lab Delfina Santiago MD LAB SEND OUT ORDERAB LES [facility] [place] [address] * Lipoprotein A (02/16/2022 11:50 AM EDT) Lipoprotein(A) ( <75 nmol/L [facility] Comment: ADDITIONAL INFORMATION Please notice that Lp(a) values are reported in molar units (nmol/L). ??These units are recommended by professional society guidelines and expert opinion statements. ??Measured results and risk thresholds are higher than those generated using mass units (mg/dL). Cardiovascular risk increases starting at 75 nmol/L. Lp(a) >=125 nmol/L is considered a risk enhancing factor by the [place] [employer]. This test has been modified from the web designer developer's instructions. Its performance characteristics were determined by [facility] in a manner consistent with CLIA requirements. This test has not been cleared or approved by the U.S. Food and Drug Administration. Test Performed by: [facility] - [address] [address] Coil Maker: Kyle Michel M.D. Ph.D.; CLIA# [id number] Blood 02/16/2022 11:5 0 AM EDT 02/16/2022 3:50 PM EDT Narrative Resulting Agency Comment Spec In Lab Delfina Santiago MD LAB SEND OUT ORDERAB LES [facility] [place] [address] documented in this encounter Visit Diagnoses Diagnosis Familial hypercholesterolemia Pure hypercholesterolemia documented in this encounter Care Teams Supervisor Roller Printing Relationship Specialty Start Date End Date Juan Smith MD [address] [place] [phone] PCP - General Family Medicine 10/12/21 01/25/22 documented as of this encounter
--- OUTSIDE RECORDS SUMMARY | 2024-02-15 16:36 | XMS_ITS | Encounter Summary ---
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 ??She was in 2002 and has had a significant other for many years. ??Her significant other (Yoshalom Peterson) lives in [place].?She has??5??children and 3 biologic and 8 step??grandchildren. [...] azelastine (ASTELIN) 137 mcg (0.1 %) Aerosol, [place] 0 ??? PROVENTIL HFA 90 mcg/actuation HFA [...] Once daily ??? 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 [...] monitor liver function tests). Blood tests at [place] in about 6 weeks Time spent for this clinic appointment on the date of service includes: 25 minutes review of her chart and previous lipid evaluation and recommendations; 30 minutes aivr-fn-fcvu and 10 minutes coordination of care 1) tvvw-lg-pieu counseling as noted above 2) reviewing past medical records, cardiac testing, results of laboratory testing 3) coordinating care with other physicians and allied health care providers Delfina Santiago MD, Vonnie, FACC, FNLA Attending Firer Marine Sports Cardiology Program Preventive Cardiology Lipid Clinic Advanced Hypertension Clinic documented in this encounter Plan of Treatment Upcoming Encounters Date Type Department Care Team (Late st Contact Info) Description 03/13/2024 9:45 AM EDT Office Visit Dermatology at [place] [address] [facility] [place] [address] Emiliano Salinas MD [address], MANIND[place] [address] documented as of this encounter Results * Hepatic Function Panel (08/01/2022 7:52 AM EST) [facility] Protein, Total 7.1 6.1 - 8.0 g/dL [facility] Albumin 4.5 3.2 - 5.2 g/dL [facility] Aspartate Aminotransferase 19 0 - 30 unit/L [facility] Alanine Aminotransferase 18 0 - 30 unit/L [facility] Alkaline Phosphatase 75 35 - 105 unit/L [facility] Bilirubin, Total 0.4 0.2 - 1.3 mg/dL [facility] Bilirubin, Direct 0.1 0.0 - 0.3 mg/dL [facility] Blood 08/01/2022 7:52 AM EST 08/01/2022 8:07 AM EST Narrative Resulting Agency Comment Spec In Lab Delfina Santiago MD CHEMISTRY ORDERABLES [facility] [address] * (ABNORMAL) Apolipoprotein B (08/01/2022 7:52 AM EST) [facility] Apolipoprotein B (OCTOBER) 169(H) mg/dL [facility] Comment: REFERENCE VALUE Desirable: <90 Above Desirable: 90-99 Borderline high: 100-119 High: 120-139 Very high: > or = 140 Test Performed by: [facility] - [address] [address] Batch Unloader: Kyle Michel M.D. Ph.D.; CLIA# [id number] Blood 08/01/2022 7:52 AM EST 08/01/2022 12:39 PM EST Narrative Resulting Agency Comment Spec In Lab Delfina Santiago MD LAB SEND OUT ORDERAB LES Performing Organization Address City/State/[facility] Co de Phone Number [facility] [address] * Lipid Panel (Reflex Direct LDL) (08/01/2022 7:52 AM EST) [facility] Cholesterol, Total 366 mg/dL [facility] Comment: Lower Risk: <200 mg/dL Average Risk: 200-239 mg/dL Higher Risk: >hq=954 mg/dL Triglyceride 195 mg/dL [facility] Comment: Average Risk/Lower Risk: <150 mg/dL Borderline High Risk: 150-199 mg/dL High Risk: 200-499 mg/dL Very High Risk: >ey=190 mg/dL HDL Cholesterol 91 mg/dL [facility] Comment: Males: ?? Higher Risk: <40 mg/dL Females: ?? Higher Risk: <50 mg/dL LDL Cholesterol 236 mg/dL [facility] Comment: Lowest Risk: <100 mg/dL Lower Risk: 100-129 mg/dL Borderline High Risk: 130-159 mg/dL High Risk: 160-189 mg/dL Very High Risk: >ft=883 mg/dL Cholesterol/HDL Ratio 4.0 ratio [facility] Lipid Interpretation See Note [facility] Comment: Lipid management should be guided by a patient? s ASCVD risk, goals and preferences. ACC/AHA Guidelines recommend high intensity statin if clinical ASCVD or LDL greater than or equal to 190 mg/dL. http://[employer]com/NOT-IBB-Mrvtidtta Adults aged 40-75 with LDL 70-189 mg/dL should have their 10 year ASCVD risk estimated with the ACC/AHA ASCVD risk senior estimator http://tools.acc.org/RUBOE-Dlau-Mcnkstkoh/ Statin should be discussed if risk greater [...] Santiago MD CHEMISTRY ORDERABLES Performing Organization Address City/State/[facility] Co de Phone Number [facility] [address] documented in this encounter Visit Diagnoses Diagnosis Familial hypercholesterolemia Pure hypercholesterolemia THERESA (obstructive sleep apnea) Obstructive sleep apnea (adult) (pediatric) documented in this encounter Care Teams Travelers' Aid Worker Relationship Specialty Start Date End Date Mary Altamirano MD PCP - General Family Medicine 01/26/22 08/26/22 documented as of this encounter
--- OUTSIDE RECORDS SUMMARY | 2024-02-15 16:36 | XMS_ITS | Encounter Summary ---
[place] [address] Care Team Providers Care Truck Loader Overhead Crane Name Role Phone Juan Smith MD Primary Care Provider [phone] Reason for Visit * Reason Onset Date Comments Follow-up 11/20/2021 FLP & Uric acid prior to next clinic visit Encounter Details Date Type Department Care Team (Late st Contact Info) Description 11/20/2021 Telephone Cardiology at [address] [address] Ana Horan RN Follow-up (FLP [...] visit with Dr Santiago. Orders e-faxed to [facility] as written by Dr Montalvo. Pt will get done Saturday am. Call placed to the mobile number listed, no answer, VM left letting her know that the orders have been faxed. She is to call if the folks at [facility] say they did not get the orders, we can refax before she leaves. Pt to call back with any questions/concerns. * Telephone Encounter - Ana Horan RN - 11/20/2021 11:58 AM EDT VM from [facility] requesting lab slips form Dr. Santiago and Selvin be sent to [facility] and she will have the lab work [...] 9:45 AM EDT Office Visit Dermatology at [facility] [address] [place] [address] Emiliano Salinas MD [address], [place] [address] documented as of this encounter Visit Diagnoses Not on filedocumented in this encounter Care Teams Truck Loader Overhead Crane Relationship Specialty Start Date End Date Juan Smith MD [place] [address] PCP - General Family Medicine 10/12/21 01/25/22 documented as of this encounter
--- OUTSIDE RECORDS SUMMARY | 2024-02-15 16:36 | XMS_ITS | Encounter Summary ---
Author Organization [facility] [place] [address] Care Team Providers Care Arboreal Scientist Name Role Phone Mary Altamirano MD Primary Care Provider [phone] Encounter Details Date Type Department Care Team [...] 9:45 AM EDT Office Visit Dermatology at [place] [address] [place] [address] Emiliano Salinas MD [address], [place] [address] documented as of this encounter Visit Diagnoses Not on filedocumented in this encounter Care Teams Arboreal Scientist Relationship Specialty Start Date End Date Mary Altamirano MD PCP - General Family Medicine 01/26/22 08/26/22 documented as of this encounter
--- OUTSIDE RECORDS SUMMARY | 2024-02-15 16:36 | XMS_ITS | Encounter Summary ---
[place] [address] Care Team Providers Care Sales And Leasing Agent Name Role Phone Juan Smith MD Primary Care Provider [phone] Reason for Visit * Reason Comments Medication Refill Encounter Details Date Type Department Care Team (Late st Contact Info) Description 01/18/2021 Refill Cardiology at [address] [address] Tory Montalvo MD Medication Refill Social History [...] AM EDT Office Visit Dermatology at [address] [place] [phone] Emiliano Salinas MD [address], [place] [address] documented as of this encounter Visit Diagnoses Diagnosis Familial hypercholesterolemia Pure hypercholesterolemia documented in this encounter Care Teams Sales And Leasing Agent Relationship Specialty Start Date End Date Juan Smith MD [address] [place] [address] PCP - General Family Medicine 10/12/21 01/25/22 documented as of this encounter
--- OUTSIDE RECORDS SUMMARY | 2024-02-15 16:36 | XMS_ITS | Encounter Summary ---
Author Organization [facility] Address [facility] [place] [address] Care Team Providers Care Research Director Name Role Phone Juan Smith MD Primary Care Provider [phone] Encounter Details Date Type Department Care Team (Late st Contact Info) Description 05/26/2021 Telephone Cardiology at [address] [place] [address] Liam Noel MD [facility] [place] [address] Social History Tobacco Use Types Packs/Day Years [...] Patient called, she [place]. Rodriguez [place] [facility] [place] for her cholesterol. She is asking if Dr. Noel or Dr. Daniel deal with this issue. She takes Nexletol with Zetia as she can not take statins. She would like to get out of the trips to [facility] and have a Director Export here. #[phone] documented in this encounter Plan of Treatment Upcoming Encounters Date Type Department Care Team (Late st Contact Info) Description 03/13/2024 9:45 AM EDT Office Visit Dermatology at [place] [address] [facility] [place] [address] Emiliano Salinas MD [address] [facility], [place] [address] documented as of this encounter Visit Diagnoses Not on filedocumented in this encounter Care Teams Research Director Relationship Specialty Start Date End Date Juan Smith MD [place] [address] PCP - General Family Medicine 05/10/16 09/02/21 documented as of this encounter
--- OUTSIDE RECORDS SUMMARY | 2024-02-15 16:36 | XMS_ITS | Encounter Summary ---
Author Organization [facility] [place] [address] Care Team Providers Care Assistant Manager/Embalmer Name Role Phone Mary Altamirano MD Primary [...] AM EDT Office Visit Dermatology at [place] [address] [facility] [phone] Emiliano Salinas MD [address], [place]INDER [place] [address] documented as of this encounter Visit Diagnoses Not on filedocumented in this encounter Care Teams Assistant Manager/Embalmer Relationship Specialty Start Date End Date Mary Altamirano MD PCP - General Family Medicine 01/26/22 08/26/22 documented as of this encounter
--- OUTSIDE RECORDS SUMMARY | 2024-02-15 16:36 | XMS_ITS | Encounter Summary ---
Author Organization [facility] [place] [address] Care Team Providers Care Central Service Technician Name Role Phone Mary Altamirano MD Primary Care Provider [phone] Encounter Details Date Type Department Care Team (Latest Contact Info) Description 06/15/2022 2:00 PM EST TH Visit (TeleHealth) Cardiology at [address] [address] Derick Acosta, [facility] [place] [address] Nutritional counseling Social History Tobacco Use Types [...] Vascular Center Cardiovascular Medicine Cardiology Nutrition [place] [address] , #2 eFax: 06/15/22 Identification Yessenia Luong is a 72 y.o. patient of Mary Campbell MD referred to Cardiology Dietitian Hand Funnel Coater By Delfina Santiago MD, Lipidologist, for nutrition management of familial hypercholesterolemia in the setting of statin and PCSK9 intolerance. Yessenia is known to me from 2019 when I worked with her initially for the same condition. 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 Today's visit started after a 45-minute delay; patient's telephone went to [employer] at the time of our scheduled telephone visit; patient contacted [facility], then e-mailed me [...] counseling and coaching. cc: Mary Campbell MD [address] [place] [address] / [facility] [address] documented in this encounter Plan of Treatment Upcoming Encounters Date Type Department Care Team (Late st Contact Info) Description 03/13/2024 9:45 AM EDT Office Visit Dermatology at [address] [address] Emiliano Salinas MD [address] [place] [address], [facility] [place] [address] documented as of this encounter Visit Diagnoses Diagnosis Nutritional counseling documented in this encounter Care Teams Central Service Technician Relationship Specialty Start Date End Date Mary Altamirano MD PCP - General Family Medicine 01/26/22 08/26/22 documented as of this encounter
--- OUTSIDE RECORDS SUMMARY | 2024-02-15 16:36 | XMS_ITS | Encounter Summary ---
[place] [address] Care Team Providers Care Librarian Helper Name Role Phone Juan Smith MD Primary Care Provider [phone] Encounter Details Date Type Department Care Team (Latest Contact Info) Description 08/31/2020 Orders Only Cardiology at [address] [phone] Tory Montalvo MD Familial hypercholesterolemia Social History [...] 9:45 AM EDT Office Visit Dermatology at [place] [address] [place] [phone] Emiliano Salinas MD [address], BAKARI Bhatt DERMATOLOGY [place], [place] [phone] documented as of this encounter Results * Uric acid (02/16/2022 11:51 AM EDT) Uric Acid 5.4 2.5 - 6.5 mg/dL [facility] Blood 02/16/2022 11:5 1 AM EDT 02/16/2022 12:02 PM EDT Narrative Resulting Agency Comment Spec In Lab Tory Montalvo MD CHEMISTRY ORDERABLES Performing Organization Address City/State/[facility] [[email or web address]] Co de Phone Number [facility] [place] [address] documented in this encounter Visit Diagnoses Diagnosis Familial hypercholesterolemia Pure hypercholesterolemia documented in this encounter Care Teams Librarian Helper Relationship Specialty Start Date End Date Juan Smith MD [address] [place] [address] PCP - General Family Medicine 05/10/16 09/02/21 documented as of this encounter
--- OUTSIDE RECORDS SUMMARY | 2024-02-15 16:36 | XMS_ITS | Encounter Summary ---
[place] [address] Care Team Providers Care Spring Coverer Name Role Phone Juan Smith MD Primary Care Provider Reason for Referral * Consultation (Routine) - Closed Specialty Diagnoses / Procedures Referred By Veronica brantley Referred To Contact Vascular Surgery Diagnoses Peripheral venous insufficiency TANSKI / TESTING DONE Ester Gupta DO [address] [place] [address] [address] [place] [address] [facility] Vascular Surg [address] [place] [address] Referral ID Status Reason Start Date Expiration Date V isits Requested Visits Authorized [id number] Closed Consult, Test & Treat 01/14/2022 01/14/2023 1 1 Encounter Details Date Type Department Care Team (Latest Contact Info) Description 01/14/2022 Transcribe Orders eDH Incoming Referrals [phone] Ester Gupta DO [address] [place] [address] [address] [place], [place] [phone] Peripheral venous insufficiency Social History Tobacco Use [...] 9:45 AM EDT Office Visit Dermatology at [place] [address] [place] [address] Emiliano Salinas MD [address], [place] [address] Scheduled Referrals Name Type Priority Associated Diagnoses Orde r Schedule Referral to Vascular Surgery Outpatient Referral Routine Peripheral venous insufficiency Ordered: 01/14/2022 documented as of this encounter Visit Diagnoses Diagnosis Peripheral venous insufficiency Unspecified venous (peripheral) insufficiency documented in this encounter Care Teams Spring Coverer Relationship Specialty Start Date End Date Juan Smith MD [address] [place] [address] PCP - General Family Medicine 10/12/21 01/25/22 documented as of this encounter
--- OUTSIDE RECORDS SUMMARY | 2024-02-15 16:36 | XMS_ITS | Encounter Summary ---
[place] [address] Care Team Providers Care Sagger Soak Name Role Phone Juan Smith MD Primary Care Provider [phone] Reason for Visit * Diagnostic Test (Routine) - Closed Specialty Diagnoses / Procedures Referred By Contac t Referred To Contact Diagnoses Asymptomatic varicose veins Procedures Venous Valvular Incomp, Bilat Legs Chet Bales, DO [address] [place] [address] [facility] Vascular Lab [address] [place] [address] Referral ID Status Reason Start Date Expiration Date V isits Requested Visits Authorized [id number] Closed Specialty Service Requested 10/10/2021 10/10/2022 1 1 Encounter Details Date Type Department Care Team (Late st Contact Info) Description 11/24/2021 10:00 AM EDT Tech [place] [address] Mukund Davis, RVT Asymptomatic varicose [...] 9:45 AM EDT Office Visit Dermatology at [place] [address] [place] [address] Emiliano Salinas MD [address], BAKAR[place] [address] documented as of this encounter Procedures Procedure Name Priority Date/Time Associated Diagnosis Comments VENOUS VALVULAR INCOMP, BILAT LEGS Routine 11/24/2021 9:44 AM EDT Asymptomatic varicose veins documented in this encounter Results * Venous Valvular Incomp, Bilat Legs (11/24/2021 9:44 AM EDT) VB Text Report Department: Vascular Surgery Lab Patient: [id number] (SUNNY LUONG) CPT: 28051 Referring Physician: CHET BALES ?? Phone: Indications: [...] veins documented in this encounter Care Teams Sagger Soak Relationship Specialty Start Date End Date Juan Smith MD [facility] [place] [address] PCP - General Family Medicine 10/12/21 01/25/22 documented as of this encounter
--- OUTSIDE RECORDS SUMMARY | 2024-02-15 16:36 | XMS_ITS | Encounter Summary ---
Author Organization [facility] Address [facility] [place] [address] Care Team Providers Care News Writer Name Role Phone Juan Smith MD Primary Care Provider [phone] Encounter Details Date Type Department Care Team (Late st Contact Info) Description 06/01/2020 Telephone Dermatology at [facility] [address] [place] [phone] Vern Salmeron MD [facility] [address] [place] [address] Social History Tobacco Use Types Packs/Day Years [...] to schedule. * Telephone Encounter - Paty Pink - 06/01/2020 11:50 AM EST Called patient [...] 9:45 AM EDT Office Visit Dermatology at [address] [place] [address] Emiliano Salinas MD [address], [place] [address] documented as of this encounter Visit Diagnoses Not on filedocumented in this encounter Care Teams News Writer Relationship Specialty Start Date End Date Juan Smith MD [address] [place] [address] PCP - General Family Medicine 05/10/16 09/02/21 documented as of this encounter
--- OUTSIDE RECORDS SUMMARY | 2024-02-15 16:36 | XMS_ITS | Encounter Summary ---
[place] [address] Care Team Providers Care Sheltered Workshop Worker Name Role Phone Juan Smith MD Primary Care Provider [phone] Encounter Details Date Type Department Care Team (Late st Contact Info) Description 12/21/2021 Telephone Cardiology at [address] [phone] Dariela Manzano, RN Social History Tobacco Use [...] also asking for a referral to a contract analyst in [place]. Forward to Dr Santiago documented in this encounter Plan of Treatment Upcoming Encounters Date Type Department Care Team (Late st Contact Info) Description 03/13/2024 9:45 AM EDT Office Visit Dermatology at [place] [address] [facility] [address] [place] [address] Emiliano Salinas MD [address], BAKARI [place] [address] documented as of this encounter Visit Diagnoses Not on filedocumented in this encounter Care Teams Sheltered Workshop Worker Relationship Specialty Start Date End Date Juan Smith MD [address] [place] [address] PCP - General Family Medicine 10/12/21 01/25/22 documented as of this encounter
--- OUTSIDE RECORDS SUMMARY | 2024-02-15 16:36 | XMS_ITS | Encounter Summary ---
[place] [address] Care Team Providers Care Staker Surveying Name Role Phone Juan Smith MD Primary Care Provider [phone] Reason for Visit * Reason Comments Medication Refill Encounter Details Date Type Department Care Team (Late st Contact Info) Description 05/14/2021 Refill Cardiology at [address] [phone] Tory Montalvo MD Medication Refill Social History [...] 9:45 AM EDT Office Visit Dermatology at [address] [place] [address] Emiliano Salinas MD [address], [place] [address] documented as of this encounter Visit Diagnoses Diagnosis Familial hypercholesterolemia Pure hypercholesterolemia documented in this encounter Care Teams Staker Surveying Relationship Specialty Start Date End Date Juan Smith MD [address] [place] [address] PCP - General Family Medicine 10/12/21 01/25/22 documented as of this encounter
--- OUTSIDE RECORDS SUMMARY | 2024-02-15 16:36 | XMS_ITS | Encounter Summary ---
Author Organization [facility] [place] [address] Care Team Providers Care Line Fisher Name Role Phone Mary Altamirano MD Primary Care Provider [phone] Encounter Details Date Type Department Care Team (Latest Contact Info) Description 02/16/2022 11:20 AM EDT Laboratory Appointment Lab at [facility] [address] [place] [address] Familial hypercholesterolemi a; THERESA (obstructive sleep apnea) [...] 9:45 AM EDT Office Visit Dermatology at [address] [place] [address] Emiliano Salinas MD [address] [facility], [place]AR[place] [address] documented as of this encounter Procedures Procedure [...] Uric Acid 5.4 2.5 - 6.5 mg/dL [facility] Blood 02/16/2022 11:5 1 AM EDT 02/16/2022 12:02 PM EDT Narrative Resulting Agency Comment Spec In Lab Tory Montalvo MD CHEMISTRY ORDERABLES [facility] [place] [address] * Apolipoprotein B (02/16/2022 11:51 AM EDT) Apolipoprotein B (OCTOBER) 85 mg/dL [facility] Comment: REFERENCE VALUE Desirable: <90 Above Desirable: 90-99 Borderline high: 100-119 High: 120-139 Very high: > or = 140 Test Performed by: [address] [address] Water Registrar: Kyle Michel M.D. Ph.D.; CLIA# [id number] Blood 02/16/2022 11:5 1 AM EDT 02/16/2022 3:50 PM EDT Narrative Resulting Agency Comment Spec In Lab Delfina Santiago MD LAB SEND OUT ORDERAB LES Performing Organization Address [facility] de Phone Number [facility] [place] [address] * Lipoprotein A (02/16/2022 11:50 AM EDT) Lipoprotein(A) (OCTOBER) 12 <75 nmol/L [facility] Comment: ADDITIONAL INFORMATION Please notice that Lp(a) values are reported in molar units (nmol/L). ??These units are recommended by professional society guidelines and expert opinion statements. ??Measured results and risk thresholds are higher than those generated using mass units (mg/dL). Cardiovascular risk increases starting at 75 nmol/L. Lp(a) >=125 nmol/L is considered a risk enhancing factor by the [place] [employer]. This test has been modified from the drafter construction's instructions. Its performance characteristics were determined by [facility] in a manner consistent with CLIA requirements. This test has not been cleared or approved by the U.S. Food and Drug Administration. Test Performed by: [address] [address] Water Registrar: Kyle Michel M.D. Ph.D.; CLIA# [id number] Blood 02/16/2022 11:5 0 AM EDT 02/16/2022 3:50 PM EDT Narrative Resulting Agency Comment Spec In Lab Delfina Santiago MD LAB SEND OUT ORDERAB LES Performing Organization Address [facility] Co de Phone Number [facility] [address] * Apolipoprotein B (02/16/2022 11:50 AM EDT) Apolipoprotein B (OCTOBER) 84 mg/dL [facility] Comment: REFERENCE VALUE Desirable: <90 Above Desirable: 90-99 Borderline high: 100-119 High: 120-139 Very high: > or = 140 Test Performed by: [facility] - [address] [address] Water Registrar: Kyle Michel M.D. Ph.D.; CLIA# [id number] Blood 02/16/2022 11:5 0 AM EDT 02/16/2022 3:50 PM EDT Narrative Resulting Agency Comment Spec In Lab Delfina Santiago MD LAB SEND OUT ORDERAB LES Performing Organization Address City/State/[facility] Co de Phone Number [facility] [place] [address] documented in this encounter Visit Diagnoses Diagnosis Familial hypercholesterolemia Pure hypercholesterolemia THERESA (obstructive sleep apnea) Obstructive sleep apnea (adult) (pediatric) documented in this encounter Care Teams Line Fisher Relationship Specialty Start Date End Date Mary Altamirano MD PCP - General Family Medicine 01/26/22 08/26/22 documented as of this encounter
--- OUTSIDE RECORDS SUMMARY | 2024-02-15 16:36 | XMS_ITS | Encounter Summary ---
[place] [address] Care Team Providers Care Trip Rider Name Role Phone Juan Smith MD Primary Care Provider [phone] Reason for Visit * Reason Onset Date Comments Questions 10/11/2021 F/U with new pro vider Encounter Details Date Type Department Care Team (Late st Contact Info) Description 10/11/2021 Telephone Cardiology at [address] [phone] Rere Stock, RN Questions (F/U with new [...] 10/11/2021 1:00 PM EDT Pt returning this chart writer's call and left the following message: [...] fasting lipid panel. She would like Dr Montalvo to order the labs and send the orders to [facility] so she can get done at which [...] 9:45 AM EDT Office Visit Dermatology at [place] [address] [place] [address] Emiliano Salinas MD [address], [place] [address] documented as of this encounter Visit Diagnoses Not on filedocumented in this encounter Care Teams Trip Rider Relationship Specialty Start Date End [place] [address] PCP - General Family Medicine 10/12/21 01/25/22 documented as of this encounter
--- OUTSIDE RECORDS SUMMARY | 2024-02-15 16:36 | XMS_ITS | Encounter Summary ---
[place] [address] Care Team Providers Care Product Trainer Name Role Phone Mary Altamirano MD Primary Care Provider Reason for Referral * Diagnostic Test (Routine) - Closed Specialty Diagnoses / Procedures Referred By Veronica brantley Referred To Contact Diagnoses Asymptomatic varicose veins Procedures Venous Valvular Incomp, Bilat Legs Chet Bales DO [address] [place] [address] [address] [place] [address] [facility] Vascular Lab [address] [place] [address] Referral ID Status Reason Start Date Expiration Date V isits Requested Visits Authorized [id number] Closed Specialty Service Requested 10/10/2021 10/10/2022 1 1 Encounter Details Date Type Department Care Team (Late st Contact Info) Description 10/10/2021 Transcribe Orders [place] [address] Chet Bales DO [address] [place] [address] [address] [place] [address] Asymptomatic varicose veins Social History [...] AM EDT Office Visit Dermatology at [place] [address] [place] [address] Emiliano Salinas MD [address], BAKARI Nvoa DERMATOLOGY [place], [place] [phone] documented as of this encounter Results * Venous Valvular Incomp, Bilat Legs (11/24/2021 9:44 AM EDT) VB Text Report Department: Vascular Surgery Lab Patient: [id number] (YESSENIA LUONG) CPT: 28005 Referring Physician: CHET BALES ?? Phone: Indications: [...] veins documented in this encounter Care Teams Product Trainer Relationship Specialty Start Date End Date Mary Altamirano MD PCP - General Family Medicine 09/03/21 10/11/21 documented as of this encounter
--- OUTSIDE RECORDS SUMMARY | 2024-02-15 16:36 | XMS_ITS | Encounter Summary ---
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 ??She was in 2002 and has had a significant other for many years. ??Her significant other (Deacon Peterson) lives in [place].?She has??5??children and 3 biologic and 8 step??grandchildren. [...] azelastine (ASTELIN) 137 mcg (0.1 %) Aerosol, [place] 0 ??? PROVENTIL HFA 90 mcg/actuation HFA [...] Once daily ??? Mometasone (NASONEX) 50 mcg/Actuation [place] 2 [place](s) each nostril, Nasal, Twice daily No current [...] Not on file Occupational History ??? 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 Social [...] These will be at [facility] 01/17/22 apoB 89Lp(a) 19.8 (ULN < [...] previous lipid evaluation and recommendations; 30 minutes [id number] and 10 minutes coordination of care 1) [id number]-[id number] counseling as noted above 2) reviewing past medical records, cardiac testing, results of laboratory testing 3) coordinating care with other physicians and allied health care providers Delfina Santiago MD, Vonnie, FACC, FNLA Attending [place] [employer] Cardiology Program Preventive Cardiology Lipid Clinic Advanced Hypertension Clinic documented in this encounter Plan of Treatment Upcoming Encounters Date Type Department Care Team (Late st Contact Info) Description 03/13/2024 9:45 AM EDT Office Visit Dermatology at [place] [address] [place] [phone] Emiliano Salinas MD [address], BAKARI [place] [address] documented as of this encounter Results * Apolipoprotein B (02/16/2022 11:51 AM EDT) Apolipoprotein B (OCTOBER) 85 mg/dL [facility] Comment: REFERENCE VALUE Desirable: <90 Above Desirable: 90-99 Borderline high: 100-119 High: 120-139 Very high: > or = 140 Test Performed by: [place] [address] Quarantine Officer: Kyle Michel M.D. Ph.D.; CLIA# [id number] Blood 02/16/2022 11:5 1 AM EDT 02/16/2022 3:50 PM EDT Narrative Resulting Agency Comment Spec In Lab Delfina Santiago MD LAB SEND OUT ORDERAB LES Performing Organization Address City/State/[facility] Co de Phone Number [facility] [place] [address] documented in this encounter Visit Diagnoses Diagnosis Familial hypercholesterolemia Pure hypercholesterolemia THERESA (obstructive sleep apnea) Obstructive sleep apnea (adult) (pediatric) documented in this encounter Care Teams Twister Tender Relationship Specialty Start Date End Date Mary Altamirano MD PCP - General Family Medicine 01/26/22 08/26/22 documented as of this encounter
--- OUTSIDE RECORDS SUMMARY | 2024-02-15 16:36 | XMS_ITS | Encounter Summary ---
[place] [address] Care Team Providers Care Cane Piler Name Role Phone Juan Smith MD Primary Care Provider [phone] Reason for Visit * Reason Onset Date Comments Prior Authorization 09/01/2020 Nexlatol Encounter Details Date Type Department Care Team (Late st Contact Info) Description 09/01/2020 Telephone Cardiology at [address] [phone] Rere Stock sound person (Nexlatol) Social History Tobacco Use Types Packs/Day [...] EDT The following outcome notification received from [facility] Meds: YESSENIA LUONG Gonsales: [id number] - PA - Rx #: [id number] Need help? Call us at Outcome Approvedtoday Your request has been approved [facility]letol 180MG [facility] Original Claim [id number] Call placed to the [facility] pharmacy with the approval. No answer at the pharmacy. Call placed to pt with the above information. No answer at the home number listed. Message left for the pt to call her [facility] pharmacy to arrange getting her medication refilled. She is to call cardiology with any questions. * Telephone Encounter - Rere Stock RN - 09/02/2020 1:31 PM EDT Checking on the status of the PA requests, this greeting card writer noted that the request had not been sent to [facility]. Form re-faxed. YESSENIA LUONG (Gonsales: [id number]) Your information has been submitted to [facility] Medicare Part D. [facility] Medicare Part D will review the request and will issue a decision, typically within 1-3 days from your submission. You can check the updated outcome later by reopening this request. If [facility] Medicare Part D has not responded in 1-3 days or if you have any questions about your ePA request, please contact [employer] Medicare Part D at [phone]. If you think there may be a [...] review. Awaiting the determination. YESSENIA LUONG Gonsales: [id number] - NOMI - Rx #: [id number] Need help? Call us at Status Additional Information Required DrugNexletol 180MG tablets [employer] Medicare Electronic PA Form Original Claim [id number] documented in this encounter Plan of Treatment Upcoming Encounters Date Type Department Care Team (Late st Contact Info) Description 03/13/2024 9:45 AM EDT Office Visit Dermatology at [place] [address] [facility] [place] [address] Emiliano Salinas MD [address], [place] [address] documented as of this encounter Visit Diagnoses Not on filedocumented in this encounter Care Teams Cane Piler Relationship Specialty Start Date End Date Juan Smith MD [facility] [place] [address] PCP - General Family Medicine 05/10/16 09/02/21 documented as of this encounter
--- OUTSIDE RECORDS SUMMARY | 2024-02-15 16:36 | XMS_ITS | Encounter Summary ---
[place] [address] Care Team Providers Care Remote Sensing Research Scientist Name Role Phone Juan Smith MD Primary Care Provider [phone] Encounter Details Date Type Department Care Team (Latest Contact Info) Description 09/30/2020 Orders Only Cardiology at [address] [phone] Tory Montalvo MD Familial hypercholesterolemia Social History [...] 9:45 AM EDT Office Visit Dermatology at [place] [address] [place] [phone] Emiliano Salinas MD [address], BAKARI Nova DERMATOLOGY [place], [place] [phone] documented as of this encounter Visit Diagnoses Diagnosis Familial hypercholesterolemia Pure hypercholesterolemia documented in this encounter Care Teams Remote Sensing Research Scientist Relationship Specialty Start Date End Date Juan Smith MD [address] [place] [address] PCP - General Family Medicine 05/10/16 09/02/21 documented as of this encounter
--- OUTSIDE RECORDS SUMMARY | 2024-02-15 16:36 | XMS_ITS | Encounter Summary ---
[place] [address] Care Team Providers Care Scraper Burrer Name Role Phone Mary Altamirano MD Primary Care Provider [phone] Reason for Referral * Consultation (Routine) - Closed Specialty Diagnoses / Procedures Referred By Veronica brantley Referred To Contact Vascular Surgery Diagnoses Varicose veins of both lower extremities with pain #VV, BUSINESS PROFESSOR / PA Mary Altamirano MD [address] [place] [address] [facility] Vascular Surg [address] [place] [address] Referral ID Status Reason Start Date Expiration Date V isits Requested Visits Authorized [id number] Closed Consult, Test & Treat 09/03/2021 09/03/2022 10 10 Encounter Details Date Type Department Care Team (Latest Contact Info) Description 09/03/2021 Transcribe Orders eDH Incoming Referrals [phone] Mary Altamirano MD [address] [place] [address] Varicose veins of both lower extremities [...] 9:45 AM EDT Office Visit Dermatology at [place] [address] [facility] [place] [address] Emiliano Salinas MD [address], BAKARI Bhat[place] [address] Scheduled Referrals Name Type Priority Associated Diagnoses Orde r Schedule Referral to Vascular Surgery Outpatient Referral Routine Varicose veins of both lower extremities with pain Ordered: 09/03/2021 documented as of this encounter Visit Diagnoses Diagnosis Varicose veins of both lower extremities with pain Varicose veins of lower extremities with other complications documented in this encounter Care Teams Scraper Burrer Relationship Specialty Start Date End Date Mary Altamirano MD PCP - General Family Medicine 09/03/21 10/11/21 documented as of this encounter
--- OUTSIDE RECORDS SUMMARY | 2024-02-15 16:36 | XMS_ITS | Encounter Summary ---
[place] [address] Care Team Providers Care Car Racer Name Role Phone Mary Altamirano MD Primary Care Provider Reason for Visit * Reason Onset Date Comments Medication Refill 09/28/2021 Nexletol & Zet ia Encounter Details Date Type Department Care Team (Late Contact [facility]) Description 09/28/2021 Refill Cardiology at [address] [phone] Tory Montalvo MD Medication Refill (Nexletol & [...] is transferring her care to Cardiology in [facility] and would like to getthe Nexletol and Zetia sent to the [facility] at [facility] to get her to the appt with the executive officer in [facility]. Refill pended to Dr Montalvo. documented in this encounter Plan of Treatment Upcoming Encounters Date Type Department Care Team (Late st Contact Info) Description 03/13/2024 9:45 AM EDT Office Visit Dermatology at [place] [address] [facility] [address] [place] [address] Emiliano Salinas MD [address], BAKARI [place] [address] documented as of this encounter Visit Diagnoses Diagnosis Familial hypercholesterolemia Pure hypercholesterolemia documented in this encounter Care Teams Car Racer Relationship Specialty Start Date End Date Mary Altamirano MD PCP - General Family Medicine 09/03/21 10/11/21 documented as of this encounter
--- OUTSIDE RECORDS SUMMARY | 2024-02-15 16:36 | XMS_ITS | Encounter Summary ---
Author Organization [facility] [place] [address] Care Team Providers Care French Translator Name Role Phone Mary Altamirano MD Primary [...] 9:45 AM EDT Office Visit Dermatology at [place] [address] [place] [phone] Emiliano Salinas MD [address], MANIND[place] [address] documented as of this encounter Visit Diagnoses Not on filedocumented in this encounter Care Teams French Translator Relationship Specialty Start Date End Date Mary Altamirano MD PCP - General Family Medicine 01/26/22 08/26/22 documented as of this encounter
--- OUTSIDE RECORDS SUMMARY | 2024-02-15 16:36 | XMS_ITS | Encounter Summary ---
Author Organization [facility] [place] [address] Care Team Providers Care City Planning Aide Name Role Phone Mary Altamirano MD Primary Care Provider Encounter Details Date Type Department Care Team (Latest Contact Info) Description 04/23/2022 1:00 PM EST TH Visit (TeleHealth) Cardiology at [address] [address] Derick Acosta, [facility] [place] [address] Nutritional counseling Social History Tobacco Use Types [...] Vascular Center Cardiovascular Medicine Cardiology Nutrition [place] [address] , #2 eFax: NO SHOW 04/23/22 Identification Yessenia Luong is a 72 y.o. patient of Mary Campbell MD referred to Cardiology Dietitian Contact Center Analyst By Delfina Santiago MD, Lipidologist, for nutrition [...] a 72-year-old patient of Delfina Santiago MD, Raw Mill Operator, referred to cardiology RDN for hyperlipidemia in [...] and coaching. cc: Mary Campbell MD [address] [facility] [address] documented in this encounter Plan of Treatment Upcoming Encounters Date Type Department Care Team (Late st Contact Info) Description 03/13/2024 9:45 AM EDT Office Visit Dermatology at [address] [place] [address] Emiliano Salinas MD [address] [place] [address], [place] [address] documented as of this encounter Visit Diagnoses Diagnosis Nutritional counseling documented in this encounter Care Teams City Planning Aide Relationship Specialty Start Date End Date Mary Altamirano MD PCP - General Family Medicine 01/26/22 08/26/22 documented as of this encounter
--- OUTSIDE RECORDS SUMMARY | 2024-02-15 16:36 | XMS_ITS | Encounter Summary ---
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 ??She was in 2002 and has had a significant other for many years. ??Boyfriend (Deacon Peterson) lives in [place].?She has??5??children??(2 biologic and 2 step) 3 biologic [...] azelastine (ASTELIN) 137 mcg (0.1 %) Aerosol, [place] 0 ??? PROVENTIL HFA 90 mcg/actuation HFA [...] Once daily ??? Mometasone (NASONEX) 50 mcg/Actuation [place] 2 [place](s) each nostril, Nasal, Twice daily No current [...] 9:45 AM EDT Office Visit Dermatology at [place] 580 [place] [address] Emiliano Salinas MD [address] [facility], [place] [address] documented as of this encounter Visit Diagnoses Diagnosis Familial hypercholesterolemia Pure hypercholesterolemia documented in this encounter Care Teams Saute Chef Relationship Specialty Start Date End Date Juan Smith MD [facility] [place] [address] PCP - General Family Medicine 05/10/16 09/02/21 documented as of this encounter
--- OUTSIDE RECORDS SUMMARY | 2024-02-15 16:36 | XMS_ITS | Encounter Summary ---
Author Organization [facility] [place] [address] Care Team Providers Care Spotter Name Role Phone Mary Altamirano MD Primary Care Provider Reason for Visit * Consultation (Routine) - Closed Specialty Diagnoses / Procedures Referred By Veronica brantley Referred To Contact Vascular Surgery Diagnoses Peripheral venous insufficiency MARY / TESTING DONE Ester Gupta, [address] [place] [address] [facility] [address] [place] [address] Referral ID Status Reason Start Date Expiration Date V isits Requested Visits Authorized [id number] Closed Consult, Test & Treat 01/14/2022 01/14/2023 1 1 Encounter Details Date Type Department Care Team (Late st Contact Info) Description 02/16/2022 9:30 AM EDT Office [place] [address] Kyle Pagan III, MD [address] [place] [address] [place] [address] Varicose veins of left lower extremity with [...] azelastine (ASTELIN) 137 mcg (0.1 %) Aerosol, [place], , Disp: , Rfl: 0 ??? PROVENTIL [...] , Rfl: ??? Mometasone (NASONEX) 50 mcg/Actuation [place], 2 [place](s) each nostril, Nasal, Twice daily, Disp: , [...] Visit from 02/16/2022 in Vascular Surgery at [facility] Weight 72.6 kg (160 lb) Height 161.3 [...] 9:45 AM EDT Office Visit Dermatology at [place] [address] [facility] [place] [address] Emiliano Salinas MD [address] [facility], [place]AR[place] [address] Scheduled Referrals Name Type Priority Associated Diagnoses Orde r Schedule Referral to Vascular Surgery Outpatient Referral Routine Peripheral venous insufficiency Ordered: 01/14/2022 documented as of this encounter Visit Diagnoses Diagnosis 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
--- OUTSIDE RECORDS SUMMARY | 2024-02-15 16:36 | XMS_ITS | Encounter Summary ---
Author Organization [facility] [place] [address] Care Team Providers Care Diamond Setter Name Role Phone Mary Altamirano MD Primary Care Provider [phone] Encounter Details Date Type Department Care Team [...] 9:45 AM EDT Office Visit Dermatology at [place] [address] [facility] [place] [address] Emiliano Salinas MD [address], MANINDER [place] [address] documented as of this encounter Visit Diagnoses Not on filedocumented in this encounter Care Teams Diamond Setter Relationship Specialty Start Date End Date Mary Altamirano MD PCP - General Family Medicine 01/26/22 08/26/22 documented as of this encounter
--- OUTSIDE RECORDS SUMMARY | 2024-02-15 16:36 | XMS_ITS | Encounter Summary ---
[place] [address] Care Team Providers Care Prize Fighter Name Role Phone Mary Altamirano MD Primary Care Provider Reason for Referral * Psychiatric (Routine) - Closed Specialty Diagnoses / Procedures Referred By Contac t Referred To Contact Psychiatry Diagnoses Anxiety with depression Mary Altamirano MD [address] [place] [address] [facility] [address] [place] [address] Referral ID Status Reason Start Date Expiration Date V isits Requested Visits Authorized [id number] Closed Consult, Test & Treat PCP Updated and/or Approved 01/26/2022 01/26/2023 10 10 Encounter Details Date Type Department Care Team (Latest Contact Info) Description 01/26/2022 Transcribe Orders eDH Incoming Referrals [phone] Mary Altamirano MD [address] [place] [address] Anxiety with depression Social History Tobacco [...] 9:45 AM EDT Office Visit Dermatology at [place] [address] [place] [address] Emiliano Salinas MD [address], BAKAR[place] [address] Scheduled Referrals Name Type Priority Associated Diagnoses Order Schedule Referral to Psychiatry Outpatient Referral Routine Anxiety with depression Ordered: 01/26/2022 documented as of this encounter Visit Diagnoses Diagnosis Anxiety with depression documented in this encounter Care Teams Prize Fighter Relationship Specialty Start Date End Date Mary Altamirano MD PCP - General Family Medicine 01/26/22 08/26/22 documented as of this encounter
--- OUTSIDE RECORDS SUMMARY | 2024-02-15 16:37 | XMS_ITS | Encounter Summary ---
Author Organization [facility] Address [facility] [place] [address] Care Team Providers Care Train Operations Supervisor Name Role Phone Juan Smith MD Primary Care Provider [phone] Encounter Details Date Type Department Care Team (Latest Contact Info) Description 12/30/2017 3:30 PM EDT Office Visit Weight and Wellness at [address] [address] Natalie Stephens MD [facility] [place] [address] Class 1 obesity due to excess calories [...] up with our dietitian Mary and Dr Stepehns in 3 months, sooner as needed HEALTHY [...] Stephens MD - 12/30/2017 3:30 PM EDT [facility] Living [facility] Visit Patient Name: Yessenia Luong Date of : 1950 Age: [address] Juan Smith MD Thank you for referring Yessenia Luong to the [facility] Living [facility] for consultation regarding obesity. CHIEF COMPLAINT: Follow-up for Obesity INTERVAL HISTORY / PROGRESS TOWARD GOALS: [x] I reviewed past / interim records including notes and labs. Last seen by me on 12/06/17, and by our dietitian and health football coach earlier today. She is participating in [...] mg PO daily. She is going to [facility] for 3 weeks starting next week. She reports that she has been tracking her food intake through the [place] [employer]ina, and found that she eats between 2500 - 3500 calories per day--it's just a green party all the time. She is interested [...] Date AST 19 12/06/2017 ALT 18 12/06/2017 [facility] Followup Responses 12/06/2017 [facility] - Readiness [...] affect today SUMMARY OF VISIT AND RECOMMENDATIONS: Yessenia Luong was seen in follow up today and an updated medical, diet and activity review was completed. Additional goals were set for changes in health habits (see below) as was a plan for evaluation and treatment of obesity related co-morbidities. Medical issues and plan: Class I Obesity: ?? Medical Management: The patient is currently participating in the Medical Management Pathway at the [facility]. She is gaining insights into food [...] 20 minutes of which were spent in [id number] discussion/counseling re obesity, nutrition and activity as well as obesity related co-morbidities documented in this encounter Plan of Treatment Upcoming Encounters Date Type Department Care Team (Late st Contact Info) Description 03/13/2024 9:45 AM EDT Office Visit Dermatology at [place] 580 [place] [phone] Emiliano Salinas MD [address] [facility], [place] [address] documented as of this encounter Visit Diagnoses Diagnosis Class 1 obesity due to excess calories with serious comorbidity and body mass index (BMI) of 30.0 to 30.9 in adult Hyperlipidemia, unspecified hyperlipidemia type documented in this encounter Care Teams Train Operations Supervisor Relationship Specialty Start Date End Date Juan Smith MD [facility] [place] [address] PCP - General Family Medicine 05/10/16 09/02/21 documented as of this encounter
--- OUTSIDE RECORDS SUMMARY | 2024-02-15 16:37 | XMS_ITS | Encounter Summary ---
Author Organization [facility] Address [facility] [place] [address] Care Team Providers Care Helicopter Pilot Name Role Phone Juan Smith MD Primary Care Provider Reason for Visit * Reason Comments Follow-up Encounter Details Date Type Department Care Team (Late st Contact Info) Description 03/12/2019 3:00 PM EDT Office Visit Dermatology at [facility] [address] [place] [address] Vern Salmeron MD [facility] [address] [place] [address] Rosacea; Lentigines; Holt angiomas; Seborrheic keratoses; Seborrheic [...] 03/12/2019 3:00 PM EDT Yessenia Luong 03/12/2019 [id number] Raymundo Salmeron MD ([id number]) Chief Problem: 1. Pigmented Lesion and Skin [...] azelastine (ASTELIN) 137 mcg (0.1 %) Aerosol, [place] 0 ??? PROVENTIL HFA 90 mcg/actuation HFA [...] Once daily ??? Mometasone (NASONEX) 50 mcg/Actuation [place] 2 [place](s) each nostril, Nasal, Twice daily No current [...] located on the trunk and extremities 3. Ohlt angiomas located on the trunk 4. Seborrheic [...] 9:45 AM EDT Office Visit Dermatology at [place] [address] [facility] [place] [address] Emiliano Salinas MD [address], [place] [address] documented as of this encounter Visit Diagnoses Diagnosis Rosacea Lentigines Other dyschromia Holt angiomas Nevus, non-neoplastic Seborrheic keratoses Other seborrheic keratosis Seborrheic keratoses, inflamed Inflamed seborrheic keratosis Hair thinning Alopecia, unspecified documented in this encounter Care Teams Helicopter Pilot Relationship Specialty Start Date End Date Juan Smith MD [place] [address] PCP - General Family Medicine 05/10/16 09/02/21 documented as of this encounter
--- OUTSIDE RECORDS SUMMARY | 2024-02-15 16:37 | XMS_ITS | Encounter Summary ---
Author Organization [facility] [facility] [place] [address] Care Team Providers Care Meteorology Faculty Member Name Role Phone Sharma Chantellrebecca Lester APRN Primary Care Provider [phone] Reason for Visit * Reason Comments Follow Up Surgery s/p bbr and abdomino plasty/liposuction 06/14/15 Encounter Details Date Type Department Care Team (Latest Contact Info) Description 07/29/2015 2:15 PM EST Office [place] [address] Carlee Marvin MD [facility] [place] [address] Status post bilateral breast reduction; Status post [...] 9:45 AM EDT Office Visit Dermatology at [place] [address] [place] [address] Emiliano Salinas MD [address], [place] [address] documented as of this encounter Visit Diagnoses Diagnosis Status post bilateral breast reduction Other postprocedural status Status post abdominoplasty Other postprocedural status documented in this encounter Care Teams Meteorology Faculty Member Relationship Specialty Start Date End Date Chantell Sharma APRN PCP - General 07/09/13 05/09/16 documented as of this encounter
--- OUTSIDE RECORDS SUMMARY | 2024-02-15 16:37 | XMS_ITS | Encounter Summary ---
Author Organization [facility] [place] [address] Care Team Providers Care Talent Management Specialist Name Role Phone Chantell Sharma APRN Primary Care Provider [phone] Reason for Visit * Reason Comments Follow Up Surgery s/p bbr and abdomino plasty/liposuction dos 06/14/14, drain removal Encounter Details Date Type Department Care Team (Latest Contact Info) Description 06/23/2015 9:00 AM EST Clinical [place] [address] Mery Diams BRAILLE TRANSLATOR [facility] [place] [address] Surgery follow-up Social History Tobacco Use Types [...] clinic with any questions or concerns @ [phone] Saturday through Saturday from 8. On weekends, nights, or holidays, call the Main Hospital number @ [phone] and ask for the Plastic Surgeon mobile web application developer. Signs of Infection : A temperature over [...] symptoms please call our nurse's line at [phone] M - F 8 documented in this [...] AM EDT Office Visit Dermatology at [address] [place] [address] Emiliano Salinas MD [address], [place] [address] documented as of this encounter Visit Diagnoses Diagnosis Surgery follow-up Follow-up examination, following unspecified surgery documented in this encounter Care Teams Talent Management Specialist Relationship Specialty Start Date End Date Chantell Sharma APRN PCP - General 07/09/13 05/09/16 documented as of this encounter
--- OUTSIDE RECORDS SUMMARY | 2024-02-15 16:37 | XMS_ITS | Encounter Summary ---
Author Organization [facility] Address [facility] [place] [address] Care Team Providers Care Stave Hewer Name Role Phone Juan Smith MD Primary Care Provider [phone] Encounter Details Date Type Department Care Team (Latest Contact Info) Description 12/13/2017 3:11 PM EDT - 12/13/2017 11:59 PM EDT Hospital [place] [address] Natalie Stephens MD [facility] [place] [address] Class 1 obesity Discharge Disposition: Home Social [...] azelastine (ASTELIN) 137 mcg (0.1 %) Aerosol, [place] 0 11/06/2017 09/03/2022 ASCORBATE CALCIUM (VITAMIN C ORAL) Take by mouth. ERGOCALCIFEROL, VITAMIN D2, (VITAMIN D ORAL) Take by mouth. 09/03 multivitamin (THERAGRAN) tablet Take 1 tablet by mouth daily. 09/03/2022 fexofenadine (EVANGELINA) 180 mg tablet 180 mg, PO, Once daily 08/28/2010 09/03/2022 Mometasone (NASONEX) 50 mcg/Actuation [place] 2 [place](s) each nostril, Nasal, Twice daily 08/28/2010 09/03/2022 documented as of this encounter Plan of Treatment Upcoming Encounters Date Type Department Care Team (Late st Contact Info) Description 03/13/2024 9:45 AM EDT Office Visit Dermatology at [place] [address] [facility] [place] [address] Emiliano Salinas MD [address] [facility] [address], [place] [address] documented as of this encounter Procedures Procedure Name Priority Date/Time Associated Diagnosis Comments BIOREPOSITORY REQUEST Routine 12/13/2017 2:00 PM EDT Class 1 obesity documented in this encounter Results * Biorepository Request (12/13/2017 2:00 PM EDT) Biorepository Hold Sample in lab [facility] Stool specimen (specimen) 12/13/2017 2:00 PM EDT 12/24/2017 1:18 PM EDT Narrative Resulting Agency Comment Spec In Lab Natalie Stephens MD MOLECULAR ORDERABLES [facility] [place] [id number] documented in this encounter Visit Diagnoses Diagnosis Class 1 obesity documented in this encounter Care Teams Stave Hewer Relationship Specialty Start Date End Date Juan Smith MD [address] [place] [address] PCP - General Family Medicine 05/10/16 09/02/21 documented as of this encounter
--- OUTSIDE RECORDS SUMMARY | 2024-02-15 16:37 | XMS_ITS | Encounter Summary ---
[place] [address] Care Team Providers Care Reel Repairer Name Role Phone Juan Smith MD Primary Care Provider [phone] Encounter Details Date Type Department Care Team (Latest Contact Info) Description 02/13/2019 10:20 AM EDT Laboratory Appointment Lab [address] [place] [address] Familial hypercholesterolemia Social History Tobacco Use Types [...] 9:45 AM EDT Office Visit Dermatology at [place] [address] [place] [address] Emiliano Salinas MD [address], [place] [address] documented as of this encounter Procedures Procedure [...] 9:49 AM EDT) Cholesterol, Total 324 mg/dL [facility] Comment: Lower Risk: <200 mg/dL Average Risk: 200-239 mg/dL Higher Risk: >rm=190 mg/dL Triglyceride 183 mg/dL [facility] Comment: Average Risk/Lower Risk: <150 mg/dL Borderline High Risk: 150-199 mg/dL High Risk: 200-499 mg/dL Very High Risk: >ed=126 mg/dL HDL Cholesterol 68 mg/dL [facility] Comment: Males: ?? Higher Risk: <40 mg/dL Females: ?? HIgher Risk: <50 mg/dL LDL Cholesterol 219 mg/dL [facility] Comment: Lowest Risk: <100 mg/dL Lower Risk: 100-129 mg/dL Borderline High Risk: 130-159 mg/dL High Risk: 160-189 mg/dL Very High Risk: >zp=007 mg/dL Cholesterol/HDL Ratio 4.8 ratio [facility] Lipid Interpretation See Note [facility] Comment: Lipid management should be guided by a patient? s ASCVD risk, goals and preferences. ACC/AHA Guidelines recommend high intensity statin if clinical ASCVD or LDL greater than or equal to 190 mg/dL. http://RMDMgroupurl.com/CTI-RRC-Ydknjyoul Adults aged 40-75 with LDL 70-189 mg/dL should have their 10 year ASCVD risk estimated with the ACC/AHA ASCVD risk building construction estimator http://tools.acc.org/AEIUD-Tfrd-Uenedqmbt/ Statin should be discussed if risk greater [...] CHEMISTRY ORDERABLES Performing Organization Address [facility] Co de Phone Number [facility] [place] [address] * Lipoprotein A (02/13/2019 9:49 AM EDT) Lipoprotein (a) 6 <=30 mg/dL [facility] Comment: Test Performed by: [facility] [place] [address] Hr Internship: Kyle Michel M.D. Ph.D.; CLIA# [id number] Blood specimen (specimen) 02/13/2019 9:49 AM EDT 02/13/2019 3:06 PM EDT Narrative Resulting Agency Comment Spec In Lab Tory Montalvo MD LAB SEND OUT ORDERAB LES Performing Organization Address [facility] Co de Phone Number [facility] [place] [address] * (ABNORMAL) Comprehensive metabolic panel (non-fasting) (02/13/2019 9:49 AM EDT) Glucose 108 65 - 199 mg/dL [facility] Comment:Diabetes: >=200 mg/d L plus symptoms Blood Urea Nitrogen 19(H) 8 - 18 mg/dL [facility] Creatinine 0.79 0.70 - 1.20 mg/dL [facility] Sodium 142 135 - 145 mmol/L [facility] Potassium 3.6 3.5 - 5.0 mmol/L [facility] Comment: Please note: ??Patients with WBC >100,000 may have falsely elevated Potassium levels. ??For accurate Potassium quantification in these patients send serum separator tube (gold top) for subsequent determinations. ??Contact the Clinical Chemistry Laboratory if there are any questions. Chloride 101 98 - 107 mmol/L [facility] Carbon Dioxide 28 22 - 31 mmol/L [facility] Anion Gap 13 5 - 15 mmol/L [facility] Calcium 9.8 8.5 - 10.5 mg/dL [facility] Protein, Total 7.5 6.1 - 8.0 gm/dL [facility] Albumin 4.8 3.2 - 5.2 gm/dL [facility] Aspartate Aminotransferase 22 0 - 30 unit/L [facility] Alanine Aminotransferase 24 0 - 30 unit/L [facility] Alkaline Phosphatase 64 35 - 105 unit/L [facility] Bilirubin, Total 0.4 0.2 - 1.3 mg/dL [facility] Est Glomerular Filtration Rate 76 >=60 mL/min/1. 73 m?? [facility] Comment: The eGFR was calculated using the CKD-EPI equation. As with all creatinine based estimates of kidney function, eGFR values calculated with the CKD-EPI equation are not accurate in patients with acute kidney failure, extremes of body mass or the acutely ill. [email or web address] eGFR 88 >=60 mL/min/1. 73 m?? [facility] Comment: The eGFR was calculated using the CKD-EPI equation. As with all creatinine based estimates of kidney function, eGFR values calculated with the CKD-EPI equation are not accurate in patients with acute kidney failure, extremes of body mass or the acutely ill. [email or web address] Blood specimen (specimen) 02/13/2019 9:49 AM EDT 02/13/2019 9:59 AM EDT Narrative Resulting Agency Comment Spec In Lab Tory Montalvo MD CHEMISTRY ORDERABLES Performing Organization Address City/[facility]/ZIP Co de Phone Number [facility] [place] [address] * TSH (02/13/2019 9:49 AM EDT) Thyroid Stimulating Hormone 2.34 0.27 - 4.20 mcIU/mL [facility] Blood specimen (specimen) 02/13/2019 9:49 AM EDT 02/13/2019 9:59 AM EDT Narrative Resulting Agency Comment Spec In Lab Tory Montalvo MD CHEMISTRY ORDERABLES Performing Organization Address [facility] [place] [address] documented in this encounter Visit Diagnoses Diagnosis Familial hypercholesterolemia Pure hypercholesterolemia documented in this encounter Care Teams Reel Repairer Relationship Specialty Start Date End Date Juan Smith MD [address] [place] [address] PCP - General Family Medicine 05/10/16 09/02/21 documented as of this encounter
--- OUTSIDE RECORDS SUMMARY | 2024-02-15 16:37 | XMS_ITS | Encounter Summary ---
Author Organization [facility] [place] [address] Care Team Providers Care Oil Change Technician Name Role Phone Juan Smith MD Primary Care Provider [phone] Reason for Referral * Diagnostic Test (Routine) - Closed Specialty Diagnoses / Procedures Referred By Contac t Referred To Contact Radiology Diagnoses Chest pain, unspecified type SOB (shortness of breath) Procedures NM Pharmacologic Stress Myocardial Perfusion Tory Montalvo MD [facility] [place] [address] [place] [address] Referral ID Status Reason Start Date Expiration Date V isits Requested Visits Authorized [id number] Closed Specialty Service Requested 03/05/2019 05/03/2019 1 1 Reason for Visit * Diagnostic Test (Routine) - Closed Specialty Diagnoses / Procedures Referred By Contac t Referred To Contact Radiology Diagnoses Chest pain, unspecified type SOB (shortness of breath) Procedures NM Pharmacologic Stress Myocardial Perfusion Tory Montalvo MD [facility] [place] [address] [place] [address] Referral ID Status Reason Start Date Expiration Date V isits Requested Visits Authorized [id number] Closed Specialty Service Requested 03/05/2019 05/03/2019 1 1 Encounter Details Date Type Department Care Team (Latest Contact Info) Description 03/12/2019 9:21 AM EDT - 03/12/2019 9:22 AM EDT Hospital Encounter [place] [address] Tory Montalvo MD Chest pain, unspecified type; [...] azelastine (ASTELIN) 137 mcg (0.1 %) Aerosol, [place] 0 11/06/2017 0 09/03/2022 ASCORBATE CALCIUM (VITAMIN C ORAL) Take by mouth. 09/03/2022 ERGOCALCIFEROL, VITAMIN D2, (VITAMIN D ORAL) Take by mouth. multivitamin (THERAGRAN) tablet Take 1 tablet by mouth daily. 09/03/2022 fexofenadine (EVANGELINA) 180 mg tablet 180 mg, PO, Once daily 08/28/2010 09/03/2022 Mometasone (NASONEX) 50 mcg/Actuation [place] 2 [place](s) each nostril, Nasal, Twice daily 08/28/2010 09/03/2022 documented as of this encounter Plan of Treatment Upcoming Encounters Date Type Department Care Team (Late st Contact Info) Description 03/13/2024 9:45 AM EDT Office Visit Dermatology at [place] [address] [facility] [place] [address] Emiliano Salinas MD [address] [facility], [place]AR[place] [address] documented as of this encounter Procedures Procedure [...] mCi documented in this encounter Care Teams Oil Change Technician Relationship Specialty Start Date End Date Juan Smith MD [address] [place] [address] PCP - General Family Medicine 05/10/16 09/02/21 documented as of this encounter
--- OUTSIDE RECORDS SUMMARY | 2024-02-15 16:37 | XMS_ITS | Encounter Summary ---
[place] [address] Care Team Providers Care Launching Pad Mechanic Name Role Phone Juan Smith MD Primary Care Provider [phone] Encounter Details Date Type Department Care Team (Latest Contact Info) Description 03/12/2019 9:25 AM EDT - 03/12/2019 11:59 PM EDT Hospital Encounter [place] [phone] Tory Montalvo MD Chest pain, unspecified type; [...] azelastine (ASTELIN) 137 mcg (0.1 %) Aerosol, [place] 0 11/06/2017 0 09/03/2022 ASCORBATE CALCIUM (VITAMIN C ORAL) Take by mouth. 09/03/2022 ERGOCALCIFEROL, VITAMIN D2, (VITAMIN D ORAL) Take by mouth. multivitamin (THERAGRAN) tablet Take 1 tablet by mouth daily. 09/03/2022 fexofenadine (EVANGELINA) 180 mg tablet 180 mg, PO, Once daily 08/28/2010 09/03/2022 Mometasone (NASONEX) 50 mcg/Actuation [place] 2 [place](s) each nostril, Nasal, Twice daily 08/28/2010 09/03/2022 documented as of this encounter Plan of Treatment Upcoming Encounters Date Type Department Care Team (Late st Contact Info) Description 03/13/2024 9:45 AM EDT Office Visit Dermatology at [place] [address] [place] [address] Emiliano Salinas MD [address], [place] [address] documented as of this encounter Procedures Procedure [...] breath documented in this encounter Care Teams Launching Pad Mechanic Relationship Specialty Start Date End Date Juan Smith MD [address] [place] [address] PCP - General Family Medicine 05/10/16 09/02/21 documented as of this encounter
--- OUTSIDE RECORDS SUMMARY | 2024-02-15 16:37 | XMS_ITS | Encounter Summary ---
Author Organization [facility] [place] [address] Care Team Providers Care Jointer Operator Name Role Phone Juan Smith MD Primary Care Provider [phone] Encounter Details Date Type Department Care Team (Late st Contact Info) Description 06/14/2017 Telephone Dermatology at [facility] [address] [place] [phone] Vern Salmeron MD [facility] [place] [address] Social History Tobacco Use Types Packs/Day Years [...] 9:45 AM EDT Office Visit Dermatology at [place] [address] [facility] [place] [address] Emiliano Salinas MD [address], [place] [address] documented as of this encounter Visit Diagnoses Not on filedocumented in this encounter Care Teams Jointer Operator Relationship Specialty Start Date End Date Juan Smith MD [facility] [address] PCP - General Family Medicine 05/10/16 09/02/21 documented as of this encounter
--- OUTSIDE RECORDS SUMMARY | 2024-02-15 16:37 | XMS_ITS | Encounter Summary ---
Author Organization [facility] [place] [address] Care Team Providers Care Parking Manager Name Role Phone Chantell Sharma APRN Primary Care Provider [phone] Reason for Visit * Reason Comments Follow Up Surgery BBR and abdominoplas ty 06/14/15 Encounter Details Date Type Department Care Team (Latest Contact Info) Description 02/06/2016 8:45 AM EDT Office [place] [address] Carlee Marvin MD [facility] [place] [address] Macromastia; Status post abdominoplasty Social History Tobacco [...] Summer 2016 Time allotted: 60 mins CPT :58351 x 2 Follow up: 1 week with [...] 9:45 AM EDT Office Visit Dermatology at [place] [address] [place] [address] Emiliano Salinas MD [address] [facility], [place] [address] documented as of this encounter Visit Diagnoses Diagnosis Macromastia Hypertrophy of breast Status post abdominoplasty Other postprocedural status documented in this encounter Care Teams Parking Manager Relationship Specialty Start Date End Date Chantell Sharma APRN PCP - General 07/09/13 05/09/16 documented as of this encounter
--- OUTSIDE RECORDS SUMMARY | 2024-02-15 16:37 | XMS_ITS | Encounter Summary ---
Author Organization [facility] [address] Care Team Providers Care Mutual Fund Analyst Name Role Phone Juan Smith MD Primary Care Provider [phone] Encounter Details Date Type Department Care Team (Late st Contact Info) Description 12/24/2019 Telephone Cardiology at [address] [phone] Ester Urbano, RN Social History Tobacco Use [...] requesting that her labs be sent to [facility]. This nurse able to establish clear connection with pt and advised that her labs have been sent overper her request. No other concerns/needs/questions were discussed during this phone encounter. Many Thanks, Ester Urbano RN 4A Cardiology documented in this encounter Plan of Treatment Upcoming Encounters Date Type Department Care Team (Late st Contact Info) Description 03/13/2024 9:45 AM EDT Office Visit Dermatology at [place] [address] [place] [address] Emiliano Salinas MD [address], [place] [address] documented as of this encounter Visit Diagnoses Not on filedocumented in this encounter Care Teams Mutual Fund Analyst Relationship Specialty Start Date End Date Juan Smith MD [facility] [place] [address] PCP - General Family Medicine 05/10/16 09/02/21 documented as of this encounter
--- OUTSIDE RECORDS SUMMARY | 2024-02-15 16:37 | XMS_ITS | Encounter Summary ---
[place] [address] Care Team Providers Care Fagot Heater Helper Name Role Phone Juan Smith MD Primary Care Provider [phone] Encounter Details Date Type Department Care Team (Latest Contact Info) Description 04/17/2019 10:00 AM EST Laboratory Appointment Lab [address]L [place] [address] Familial hypercholesterolemia Social History Tobacco Use Types [...] AM EDT Office Visit Dermatology at [place] [address] [place] [address] Emiliano Salinas MD [address], [place] [address] documented as of this encounter Procedures Procedure Name Priority Date/Time Associated Diagnosis Comments HC HSCRP Routine 04/17/2019 9:21 AM EST Familial hypercholesterolemia LIPID PANEL (REFLEX DIRECT LDL) Routine 04/17/2019 9:21 AM EST Familial hypercholesterolemia documented in this encounter Results * Lipid Panel (Reflex Direct LDL) (04/17/2019 9:21 AM EST) Cholesterol, Total 252 mg/dL [facility] Comment: Lower Risk: <200 mg/dL Average Risk: 200-239 mg/dL Higher Risk: >gp=043 mg/dL Triglyceride 157 mg/dL [facility] Comment: Average Risk/Lower Risk: <150 mg/dL Borderline High Risk: 150-199 mg/dL High Risk: 200-499 mg/dL Very High Risk: >sb=532 mg/dL HDL Cholesterol 74 mg/dL [facility] Comment: Males: ?? Higher Risk: <40 mg/dL Females: ?? HIgher Risk: <50 mg/dL LDL Cholesterol 147 mg/dL [facility] Comment: Lowest Risk: <100 mg/dL Lower Risk: 100-129 mg/dL Borderline High Risk: 130-159 mg/dL High Risk: 160-189 mg/dL Very High Risk: >fg=868 mg/dL Cholesterol/HDL Ratio 3.4 ratio [facility] Lipid Interpretation See Note [facility] Comment: Lipid management should be guided by a patient? s ASCVD risk, goals and preferences. ACC/AHA Guidelines recommend high intensity statin if clinical ASCVD or LDL greater than or equal to 190 mg/dL. http://tinyurl.com/GIJ-CWI-Adjzjwvtw Adults aged 40-75 with LDL 70-189 mg/dL should have their 10 year ASCVD risk estimated with the ACC/AHA ASCVD risk manufacturing cost estimator http://tools.acc.org/TEQTX-Gpde-Vqidjatpj/ Statin should be discussed if risk greater [...] In Lab Tory Montalvo MD CHEMISTRY ORDERABLES [facility] [place] [address] * CRP, cardiac risk (HS CRP) (04/17/2019 9:21 AM EST) C-Reactive Protein High Sensitivity 1.6 mg/L [facility] Comment: For cardiac risk assessment, [...] 2003; 107:363-369 CRP Cardiac Risk Moderate Risk [facility] Blood specimen (specimen) 04/17/2019 9:21 AM EST 04/17/2019 9:40 AM EST Narrative Resulting Agency Comment Spec In Lab Tory Montalvo MD CHEMISTRY ORDERABLES [facility] [place] [address] documented in this encounter Visit Diagnoses Diagnosis Familial hypercholesterolemia Pure hypercholesterolemia documented in this encounter Care Teams Fagot Heater Helper Relationship Specialty Start Date End Date Juan Smith MD [facility] [place] [address] PCP - General Family Medicine 05/10/16 09/02/21 documented as of this encounter
--- OUTSIDE RECORDS SUMMARY | 2024-02-15 16:37 | XMS_ITS | Encounter Summary ---
Author Organization [facility] [address] Care Team Providers Care Women Specialist Name Role Phone Juan Smith MD Primary Care Provider [phone] Encounter Details Date Type Department Care Team (Latest Contact Info) Description 10/09/2019 2:00 PM EDT TH Visit (TeleHealth) Cardiology at [address] [phone] Tory Montalvo MD Familial hypercholesterolemia Social History [...] completely intolerant of statins. I asked my senior master scheduler, Basilia Mart to schedule Yessenia for a [...] 9:45 AM EDT Office Visit Dermatology at [place] [address] [facility] [place] [address] Emiliano Salinas MD [address], [place]AKAR[place] [address] documented as of this encounter Visit Diagnoses Diagnosis Familial hypercholesterolemia Pure hypercholesterolemia documented in this encounter Care Teams Women Specialist Relationship Specialty Start Date End Date Juan Smith MD [address] [place] [address] PCP - General Family Medicine 05/10/16 09/02/21 documented as of this encounter
--- OUTSIDE RECORDS SUMMARY | 2024-02-15 16:37 | XMS_ITS | Encounter Summary ---
Author Organization [facility] [place] [address] Care Team Providers Care Tool Honing Machine Set Up Operator Name Role Phone Juan Smith MD Primary Care Provider [phone] Encounter Details Date Type Department Care Team (Latest Contact Info) Description 04/17/2019 11:20 AM EST Clinical Support Cardiology at [address] [address] Derick Acosta, RD [facility] [place] [address] Nutritional counseling Social History Tobacco Use Types [...] iodine and omega 3 FAs b) Reduce yah-wqchbjik-rdzpd foods NUTRITION MONITORING PLAN/EVALUATION/SURVEILLANCE PLAN: I will e-mail patient recipes for: veg soup, corn/seafood chowder, greene burger, or any others [email or web address] to try the 3-day menus and [...] 9:45 AM EDT Office Visit Dermatology at [place] [address] [facility] [place] [address] Emiliano Salinas MD [address] [facility], [place] [address] documented as of this encounter Visit Diagnoses Diagnosis Nutritional counseling documented in this encounter Care Teams Tool Honing Machine Set Up Operator Relationship Specialty Start Date End Date Juan Smith MD [place] [address] [place] [address] PCP - General Family Medicine 05/10/16 09/02/21 documented as of this encounter
--- OUTSIDE RECORDS SUMMARY | 2024-02-15 16:37 | XMS_ITS | Encounter Summary ---
Author Organization [facility] [place] [address] Care Team Providers Care Traffic Control Signaler Name Role Phone Juan Smith MD Primary Care Provider [phone] Reason for Visit * Reason Comments Procedure Encounter Details Date Type Department Care Team (Late st Contact Info) Description 03/12/2019 3:30 PM EDT Office Visit Dermatology at [facility] [address] [place] [address] Vern Salmeron MD [facility] [address] LORRI[place] [address] Encounter for cosmetic procedure Social History Tobacco [...] - 03/12/2019 3:30 PM EDT Yessenia Luong [id number] 03/12/2019 Provider: Raymundo Salmeron M.D. ([id number]) Chief Problem: 1. Rosacea & Telangiectasias 2. [...] 9:45 AM EDT Office Visit Dermatology at [address] [facility] [place] [address] Emiliano Salinas MD [address] [address], [place] [address] documented as of this encounter Visit Diagnoses Diagnosis Encounter for cosmetic procedure documented in this encounter Care Teams Traffic Control Signaler Relationship Specialty Start Date End Date Juan Smith MD [address] [place] [address] PCP - General Family Medicine 05/10/16 09/02/21 documented as of this encounter
--- OUTSIDE RECORDS SUMMARY | 2024-02-15 16:37 | XMS_ITS | Encounter Summary ---
[place] [address] Care Team Providers Care Director Non Profit Name Role Phone Juan Smith MD Primary Care Provider [phone] Encounter Details Date Type Department Care Team (Late st Contact Info) Description 01/12/2020 Telephone Cardiology at [address] [phone] Tory Olivas, RN Social History Tobacco Use [...] 9:45 AM EDT Office Visit Dermatology at [place] [address] [facility] [place] [address] Emiliano Salinas MD [address] [facility] [address], BAKARI [place] [address] documented as of this encounter Visit Diagnoses Not on filedocumented in this encounter Care Teams Director Non Profit Relationship Specialty Start Date End Date Juan Smith MD [address] [place] [address] PCP - General Family Medicine 05/10/16 09/02/21 documented as of this encounter
--- OUTSIDE RECORDS SUMMARY | 2024-02-15 16:37 | XMS_ITS | Encounter Summary ---
Author Organization [facility] [address] Care Team Providers Care Baby Counselor Name Role Phone Juan Smith MD Primary Care Provider [phone] Reason for Visit * Diagnostic Test (Routine) - Closed Specialty Diagnoses / Procedures Referred By Contac t Referred To Contact Radiology Diagnoses Chest pain, unspecified type SOB (shortness of breath) Procedures NM Pharmacologic Stress Myocardial Perfusion Tory Montalvo MD [facility] [place] [address] [place] [address] Referral ID Status Reason Start Date Expiration Date V isits Requested Visits Authorized [id number] Closed Specialty Service Requested 03/05/2019 05/03/2019 1 1 Encounter Details Date Type Department Care Team (Latest Contact Info) Description 03/12/2019 9:23 AM EDT Hospital Encounter [place] [address] Tory Montalvo MD Discharge Disposition: [...] azelastine (ASTELIN) 137 mcg (0.1 %) Aerosol, [place] 0 11/06/2017 0 09/03/2022 ASCORBATE CALCIUM (VITAMIN C ORAL) Take by mouth. 09/03/2022 ERGOCALCIFEROL, VITAMIN D2, (VITAMIN D ORAL) Take by mouth. multivitamin (THERAGRAN) tablet Take 1 tablet by mouth daily. 09/03/2022 fexofenadine (EVANGELINA) 180 mg tablet 180 mg, PO, Once daily 08/28/2010 09/03/2022 Mometasone (NASONEX) 50 mcg/Actuation [place] 2 [place](s) each nostril, Nasal, Twice daily 08/28/2010 09/03/2022 documented as of this encounter Plan of Treatment Upcoming Encounters Date Type Department Care Team (Late st Contact Info) Description 03/13/2024 9:45 AM EDT Office Visit Dermatology at [place] [address] [facility] [place] [address] Emiliano Salinas MD [address], [place] [address] documented as of this encounter Procedures Procedure [...] on filedocumented in this encounter Care Teams Baby Counselor Relationship Specialty Start Date End Date Juan Smith MD [address] [place] [address] PCP - General Family Medicine 05/10/16 09/02/21 documented as of this encounter
--- OUTSIDE RECORDS SUMMARY | 2024-02-15 16:37 | XMS_ITS | Encounter Summary ---
Author Organization [facility] Address [facility] [place] [address] Care Team Providers Care Inspector Metal Fabricating Name Role Phone Juan Smith MD Primary Care Provider [phone] Reason for Visit * Reason Comments Weight Management * Consultation (Routine) - Specialty Diagnoses / Procedures Referred By Contac t Referred To Contact Weight and Wellness Diagnoses familail hypercholesterolemia, THERESA, increased BMI, hypothyroidism Georgia Garduno MD [address] [place] [address] [facility] [address] [place] [address] Referral ID Status Reason Start Date Expiration Date V isits Requested Visits Authorized [id number] Consult, [facility] 10/28/2017 10/28/2018 1 1 Encounter Details Date Type Department Care Team (Late st Contact Info) Description 12/06/2017 9:00 AM EDT Office Visit Weight and Wellness at [facility] [address] [place] [address] Natalie Stephens MD [facility] [address] Class 1 obesity; THERESA on CPAP; [...] Date: 12/06/17 PI/Designee: Dr. Félix Hernandez/Brian Hudson [facility] [id number]: [facility] Biorepository VELOS: [id number] Yessenia Luong??consented to participate in the above-named [...] consent. Brian Hudson, CCRC Associate Research Coordinator [facility] [place] Pager: [phone] * Natalie Stephens MD - 12/06/2017 9:00 [...] 67 y.o. female referred to the [facility] for an evaluation of obesity. Weight History: [...] bigger portions. She notes that as an [place], there is a culture of eating, and [...] structured weightloss programs including Weight Watchers, [facility] [place]. She has not used novz-ags-wozaloy weight loss medications. She has used prescription [...] Exercise: Riding her bike 1-2x/week, occasional walking [facility] Initial Responses 12/06/2017 URICA - Readiness Score [...] TFEQ-Emotional Eating 66.66 Food Insecurity Score 2 [place] Category I Result 1 (Positive) [place] Category II Result 1 (Positive) [place] Category III 0 (Negative) [place] Sleep Apnea Total 2 (High Risk) Schooling [...] ability to hike and be physically active [facility] Followup Responses 12/06/2017 URICA - Readiness Score [...] AND RECOMMENDATIONS: Yessenia Luong presents to the [facility] for a consultative visit regarding obesity management. [...] that obesity is a chronic disease requiring pet food deboner management. Obesity is associated with increased risk [...] in the HealthyLifestyles Program (HLP) at the [facility], but due to her distance from the [...] ?? Intolerant of statins--followed by a local manager of it, and currently maintained on evolocumab. THERESA: ?? Diagnosed with sleep study ?? Continue CPAP as prescribed I spent a total of 60 minutes with the patient 45 minutes of which were spent in hatz-ns-sdbg discussion/counseling re obesity, nutrition and activity as [...] 9:45 AM EDT Office Visit Dermatology at [place] [address] [facility] [place] [address] Emiliano Salinas MD [address], BAKARI [place] [address] documented as of this encounter Procedures Procedure [...] PM EDT) Biorepository Hold Sample in lab [facility] Stool specimen (specimen) 12/13/2017 2:00 PM EDT 12/24/2017 1:18 PM EDT Narrative Resulting Agency Comment Spec In Lab Natalie Stephens MD MOLECULAR ORDERABLES Performing Organization Address City/[facility]/ZIP Co de Phone Number [facility] [place] [address] * Biorepository Request (12/06/2017 10:45 AM EDT) Biorepository Hold Sample in lab [facility] Blood specimen (specimen) 12/06/2017 10:45 AM EDT 12/06/2017 4:01 PM EDT Narrative Resulting Agency Comment Spec In Lab Natalie Stephens MD MOLECULAR ORDERABLES Performing Organization Address [facility] Co de Phone Number [facility] [place] [address] * Vitamin D, 25-Hydroxy (12/06/2017 10:45 AM EDT) Pathologist [facility] Vitamin D Total 25 OH 41 30 - 100 ng/mL [facility] Comment: Deficient <10 ng/mL Insufficient 10 to 29 ng/mL Sufficient 30 to 100 ng/mL Potential Intoxication >100 ng/mL According to the US National Osteoporosis Foundation, Vitamin D concentrations >30 ng/mL are sufficient to protect bone health. ??The National Kidney Foundation has similarly stated that patients with Vitamin D concentrations <30ng/mL should be considered to be insufficient or deficient. http://aiHit.[employer] ([place]/nkf-guidelines http://aiHit.[employer]/nejm-VitD The IDS iSYS Vitamin D Immunoassay detects both 25-OH Vitamin D2 and 25-OH Vitamin D3, but only a total Vitamin D concentration is reported. Blood specimen (specimen) 12/06/2017 10:45 AM EDT 12/06/2017 2:47 PM EDT Narrative Resulting Agency Comment Spec In Lab Natalie Stephens MD CHEMISTRY ORDERABLES Performing Organization Address City/[facility]/ZIP Co de Phone Number [facility] [place] [address] * (ABNORMAL) Comprehensive metabolic panel (non-fasting) (12/06/2017 10:45 AM EDT) Glucose 99 65 - 199 mg/dL [facility] Comment:Diabetes: >=200 mg/d L plus symptoms Blood Urea Nitrogen 21(H) 8 - 18 mg/dL [facility] Creatinine 0.79 0.70 - 1.20 mg/dL [facility] Sodium 144 135 - 145 mmol/L [facility] Potassium 4.3 3.5 - 5.0 mmol/L [facility] Comment: Please note: ??Patients with WBC >100,000 may have falsely elevated Potassium levels. ??For accurate Potassium quantification in these patients send serum separator tube (gold top) for subsequent determinations. ??Contact the Clinical Chemistry Laboratory if there are any questions. Chloride 102 98 - 107 mmol/L [facility] Carbon Dioxide 26 22 - 31 mmol/L [facility] Anion Gap 16(H) 5 - 15 mmol/L [facility] Calcium 10.0 8.5 - 10.5 mg/dL [facility] Protein, Total 7.2 6.1 - 8.0 gm/dL [facility] Albumin 4.4 3.2 - 5.2 gm/dL [facility] Aspartate Aminotransferase 19 0 - 30 unit/L [facility] Alanine Aminotransferase 18 0 - 30 unit/L [facility] Alkaline Phosphatase 67 40 - 104 unit/L [facility] Bilirubin, Total 0.3 0.2 - 1.3 mg/dL [facility] Est Glomerular Filtration Rate 77 >=60 mL/min/1. 73 m?? [facility] Comment: The eGFR was calculated using the CKD-EPI equation. As with all creatinine based estimates of kidney function, eGFR values calculated with the CKD-EPI equation are not accurate in patients with acute kidney failure, extremes of body mass or the acutely ill. http://aiHit.[employer]/DHnkdep http://Skyrobotic/DHMCnkf eGFR 89 >=60 mL/min/1. 73 m?? [facility] Comment: The eGFR was calculated using the CKD-EPI equation. As with all creatinine based estimates of kidney function, eGFR values calculated with the CKD-EPI equation are not accurate in patients with acute kidney failure, extremes of body mass or the acutely ill. http://Skyrobotic/DHnkdep http://Skyrobotic/DHMCnkf Blood specimen (specimen) 12/06/2017 10:45 AM EDT 12/06/2017 1:21 PM EDT Narrative Resulting Agency Comment Spec In Lab Natalie Stephens MD CHEMISTRY ORDERABLES [facility] [place] [address] * Hemoglobin A1c (12/06/2017 10:45 AM EDT) Hemoglobin A1c 5.6 4.3 - 5.6 % [facility] Comment: Reference Range: 4.3 - 5.6% [...] Mellitus, Diabetes Care 2013; 36: Suppl. 1, Z67-94 Estimated Average Glucose 114 mg/dL [facility] Comment: eAG equivalents for HbA1c percentages: [...] into estimated average glucose values. ??Diabetes Care 2008:31(8):6544-8451. Blood specimen (specimen) 12/06/2017 10:45 AM EDT 12/06/2017 12:54 PM EDT Narrative Resulting Agency Comment Spec In Lab Natalie Stephens MD CHEMISTRY ORDERABLES Performing Organization Address [facility] Co de Phone Number [facility] [place] [address] * TSH (12/06/2017 10:45 AM EDT) Thyroid Stimulating Hormone 2.41 0.27 - 4.20 mlU/ML [facility] Blood specimen (specimen) 12/06/2017 10:45 AM EDT 12/06/2017 1:21 PM EDT Narrative Resulting Agency Comment Spec In Lab Natalie Stephens MD CHEMISTRY ORDERABLES Performing Organization Address [facility] Co de Phone Number [facility] [place] [address] documented in this encounter Visit Diagnoses Diagnosis Class 1 obesity THERESA on CPAP Obstructive sleep apnea (adult) (pediatric) Depression, unspecified depression type Vitamin D deficiency Unspecified vitamin D deficiency Anxiety disorder, unspecified type Impaired glucose tolerance Impaired glucose tolerance test documented in this encounter Care Teams Inspector Metal Fabricating Relationship Specialty Start Date [place] [address] PCP - General Family Medicine 05/10/16 09/02/21 documented as of this encounter
--- OUTSIDE RECORDS SUMMARY | 2024-02-15 16:37 | XMS_ITS | Encounter Summary ---
[place] [address] Care Team Providers Care Can Reforming Machine Operator Name Role Phone Juan Smith MD Primary Care Provider [phone] Reason for Visit * Reason Onset Date Comments Questions 10/19/2019 more lab orders? Encounter Details Date Type Department Care Team (Late st Contact Info) Description 10/19/2019 Telephone Cardiology at [address] [phone] Rere Stock RN Questions (more lab orders?) [...] 9:45 AM EDT Office Visit Dermatology at [place] [address] [facility] [place] [address] Emiliano Salinas MD [address], BAKARI [place] [address] documented as of this encounter Visit Diagnoses Not on filedocumented in this encounter Care Teams Can Reforming Machine Operator Relationship Specialty Start Date End Date Juan Smith MD [address] [place] [address] PCP - General Family Medicine 05/10/16 09/02/21 documented as of this encounter
--- OUTSIDE RECORDS SUMMARY | 2024-02-15 16:37 | XMS_ITS | Encounter Summary ---
Author Organization [facility] Address [facility] [place] [address] Care Team Providers Care Repairer Hairspring Name Role Phone Juan Smith MD Primary Care Provider [phone] Reason for Visit * Reason Comments Skin Check Encounter Details Date Type Department Care Team (Late st Contact Info) Description 02/12/2017 10:00 AM EDT Office Visit Dermatology at [facility] [address] [place] [address] Vern Salmeron MD [facility] [place] [address] Androgenic alopecia Social History Tobacco Use Types [...] 02/12/2017 10:00 AM EDT Yessenia Luong 02/12/2017 [id number] Raymundo Salmeron MD ([id number]) Chief Problem: 1. Pigmented Lesion and Skin [...] MAGNESIUM ORAL) ??? Mometasone (NASONEX) 50 mcg/Actuation [place] 2 [place](s) each nostril, Nasal, Twice daily No current [...] [5% strength] to promote hair growth. This qmnw-fcs-letxbta product is FDA-approved for androgenetic alopecia, and [...] 9:45 AM EDT Office Visit Dermatology at [address] [address] Emiliano Salinas MD [address] [place] [address], [place] [address] documented as of this encounter Visit Diagnoses Diagnosis Androgenic alopecia Other alopecia documented in this encounter Care Teams Repairer Hairspring Relationship Specialty Start Date End Date Juan Smith MD [address] [facility] [place] [address] PCP - General Family Medicine 05/10/16 09/02/21 documented as of this encounter
--- OUTSIDE RECORDS SUMMARY | 2024-02-15 16:37 | XMS_ITS | Encounter Summary ---
Author Organization [facility] Address [facility] [place] [address] Care Team Providers Care Cable Tester Name Role Phone Juan Smith MD Primary Care Provider [phone] Encounter Details Date Type Department Care Team (Late st Contact Info) Description 12/30/2017 1:30 PM EDT Office Visit Weight and Wellness at [address] [address] Vanesa Cesar Hannah K, RD [facility] [place] [address] Adult BMI 30.0-30.9 kg/sq m Social History [...] each occasion 1 drink. 2. In a libertarian situation (or out to eat) think about [...] day Weight Today: Vitals 12/30/2017 12/06/2017 Height (Egyptian) 5' 3.504 5' 3.504 Height (Metric) 161.3 cm 161.3 cm Weight (Egyptian) 173 lbs 6 oz 174 lbs 14 [...] between meals, however, now that we're in libertarian mode- thinks this might end around February, [...] was an ~1800 calorie day Typical Beverages: [place] milk, unsweetened iced tea, wine, etc. Interview: Yessenia reports that she doesn't snack in between meals but eats too much at each meal. Going to [facility] for 3 weeks, discussed that it [...] that matches her measured RMR (~1,400). The director long term care goal for [place] be closer to 1,200 [...] choices discussed, goals below. Barriers to Change: libertarian mode Nutrition Goals: 1. Measure out wine or liquor a few times to get a sense of portions (5 oz. Wine or 1.5 oz. Liquor). Choose your method of reducing: Every other occasion (2 drinks) OR each occasion 1 drink. 2. In a libertarian situation (or out to eat) think about [...] 1,400. Assessing Calorie Goals at this time? [facility] Metrics 12/30/2017 RMR (kcal/day) 1389 Monitor/Evaluate: Will follow up in [facility] for Eatsmarter classes Aim for 5-10% weight loss from ABW x 3-6 months from initial visit Thank you 45 minutes were spent today in face to face contact Mary Cerna RD LD documented in this encounter Plan of Treatment Upcoming Encounters Date Type Department Care Team (Late st Contact Info) Description 03/13/2024 9:45 AM EDT Office Visit Dermatology at [place] [address] [place] [address] Emiliano Salinas MD [address], BAKARI [place]hat[place] [address] documented as of this encounter Visit Diagnoses Diagnosis Adult BMI 30.0-30.9 kg/sq m Body Mass Index 30.0-30.9, adult documented in this encounter Care Teams Cable Tester Relationship Specialty Start Date End Date Juan Smith MD [address] [place] [address] PCP - General Family Medicine 05/10/16 09/02/21 documented as of this encounter
--- OUTSIDE RECORDS SUMMARY | 2024-02-15 16:37 | XMS_ITS | Encounter Summary ---
Author Organization [facility] [place] [address] Care Team Providers Care Distribution Engineer Name Role Phone Juan Smith MD Primary Care Provider [phone] Reason for Visit * Reason Onset Date Comments Questions 12/29/2019 possible drug re action/side effects Encounter Details Date Type Department Care Team (Late st Contact Info) Description 12/29/2019 Telephone Cardiology at [address] [phone] Rere Stock, RN Questions (possible drug reaction/side [...] 9:45 AM EDT Office Visit Dermatology at [place] [address] [facility] [place] [address] Emiliano Salinas MD [address], [place] [address] documented as of this encounter Visit Diagnoses Not on filedocumented in this encounter Care Teams Distribution Engineer Relationship Specialty Start Date End Date Juan Smith MD [address] [place] [address] PCP - General Family Medicine 05/10/16 09/02/21 documented as of this encounter
--- OUTSIDE RECORDS SUMMARY | 2024-02-15 16:37 | XMS_ITS | Encounter Summary ---
Author Organization [facility] Address [facility] [place] [address] Care Team Providers Care Supervisor Sterile Processing Name Role Phone Juan Smith MD Primary Care Provider [phone] Encounter Details Date Type Department Care Team (Late st Contact Info) Description 03/16/[address] [facility] [address] [place] [address] Vern Salmeron MD [facility] [address] [place] [address] Social History Tobacco Use Types Packs/Day Years [...] on 03/12. Patient can be reached at [phone] documented in this encounter Plan of Treatment Upcoming Encounters Date Type Department Care Team (Late st Contact Info) Description 03/13/2024 9:45 AM EDT Office Visit Dermatology at [place] [address] [place] [address] Emiliano Salinas MD [address] [facility], [place] [address] documented as of this encounter Visit Diagnoses Not on filedocumented in this encounter Care Teams Supervisor Sterile Processing Relationship Specialty Start Date End Date Juan Smith MD [facility] [place] [address] PCP - General Family Medicine 05/10/16 09/02/21 documented as of this encounter
--- OUTSIDE RECORDS SUMMARY | 2024-02-15 16:37 | XMS_ITS | Encounter Summary ---
Author Organization [facility] Address [facility] [place] [address] Care Team Providers Care Computer System Specialist Name Role Phone Juan Smith MD Primary Care Provider [phone] Reason for Visit * Reason Comments Procedure Encounter Details Date Type Department Care Team (Late st Contact Info) Description 03/12/2019 3:15 PM EDT Office Visit Dermatology at [facility] [address] [place] [phone] Vern Salmeron MD [facility] [address] [address] Encounter for cosmetic procedure Social History Tobacco [...] 3:15 PM EDT Provider: Raymundo Salmeron M.D. ([id number]) 1950 CHIEF PROBLEM: 1. Furrowing and wrinkling [...] 9:45 AM EDT Office Visit Dermatology at [place] [address] [place] [address] Emiliano Salinas MD [address], BAKARI [place] [address] documented as of this encounter Visit Diagnoses [...] Units documented in this encounter Care Teams Computer System Specialist Relationship Specialty Start Date End Date Juan Smith MD [address] [place] [address] PCP - General Family Medicine 05/10/16 09/02/21 documented as of this encounter
--- OUTSIDE RECORDS SUMMARY | 2024-02-15 16:37 | XMS_ITS | Encounter Summary ---
Author Organization [facility] [place] [address] Care Team Providers Care Associate Professor Of Geography Name Role Phone Juan Smith MD Primary Care Provider [phone] Encounter Details Date Type Department Care Team (Late st Contact Info) Description 04/19/2020 Telephone Cardiology at [address] [phone] Leona Vallejo, RN Social History Tobacco Use [...] like [facility] sent to the [facility] if able. She also requests to have her f/u labs in [facility] as well. Will send lab order to [facility] Leona Vallejo digital media planner Clinic at [facility] [address] documented in this encounter Plan of Treatment Upcoming Encounters Date Type Department Care Team (Late st Contact Info) Description 03/13/2024 9:45 AM EDT Office Visit Dermatology at [place] [address] [place] [phone] Emiliano Salinas MD [address], [place] [address] documented as of this encounter Visit Diagnoses Diagnosis Familial hypercholesterolemia Pure hypercholesterolemia documented in this encounter Care Teams Associate Professor Of Geography Relationship Specialty Start Date End Date Juan Smith MD [place] [address] PCP - General Family Medicine 05/10/16 09/02/21 documented as of this encounter
--- OUTSIDE RECORDS SUMMARY | 2024-02-15 16:37 | XMS_ITS | Encounter Summary ---
Author Organization [facility] [place] [address] Care Team Providers Care Internal Grinder Tender Name Role Phone Juan Smith MD Primary Care Provider [phone] Encounter Details Date Type Department Care Team (Late st Contact Info) Description 12/15/2019 Telephone Cardiology at [address] [phone] Ester Urbano, RN Social History Tobacco Use [...] 9:45 AM EDT Office Visit Dermatology at [place] [address] [place] [address] Emiliano Salinas MD [address], [place] [address] documented as of this encounter Visit Diagnoses Not on filedocumented in this encounter Care Teams Internal Grinder Tender Relationship Specialty Start Date End Date Juan Smith MD [address] [place] [address] PCP - General Family Medicine 05/10/16 09/02/21 documented as of this encounter
--- OUTSIDE RECORDS SUMMARY | 2024-02-15 16:37 | XMS_ITS | Encounter Summary ---
Author Organization [facility] [place] [address] Care Team Providers Care Cloth Cutting Machine Operator Name Role Phone Juan Smith MD Primary Care Provider [phone] Reason for Visit * Reason Onset Date Comments Medication Refill 12/27/2017 Encounter Details Date Type Department Care Team (Late st Contact Info) Description 12/27/2017 Refill Weight and Wellness at [address] [address] Natalie Stephens MD [facility] [place] [address] Obesity, unspecified classification, unspecified obesity type, unspecified [...] 9:45 AM EDT Office Visit Dermatology at [address] [address] Emiliano Salinas MD [address] [facility] [address], [place] [address] documented as of this encounter Visit Diagnoses Diagnosis Obesity, unspecified classification, unspecified obesity type, unspecified whether serious comorbidity present documented in this encounter Care Teams Cloth Cutting Machine Operator Relationship Specialty Start Date End Date Juan Smith MD [facility] [place] [address] PCP - General Family Medicine 05/10/16 09/02/21 documented as of this encounter
--- OUTSIDE RECORDS SUMMARY | 2024-02-15 16:37 | XMS_ITS | Encounter Summary ---
Author Organization [facility] [place] [address] Care Team Providers Care Morning Babysitter Name Role Phone Juan Smith MD Primary Care Provider [phone] Encounter Details Date Type Department Care Team (Latest Contact Info) Description 02/13/2019 11:20 AM EDT Clinical Support Cardiology at [address] [address] Derick Acosta, RD [facility] [place] [address] Nutritional counseling Social History Tobacco Use Types [...] a) Food & Symptom Record-keeping. Suggested using indidebt karina to track intakes. NUTRITION EDUCATION: Discussed [...] least four times/week for iodine b) Reduce twq-feirptvp-qaxpr foods NUTRITION MONITORING PLAN/EVALUATION/SURVEILLANCE PLAN: See patient when she returns for her cardiology f/u. Discuss questions and concerns. Do nutrient analysis. documented in this encounter Plan of Treatment Upcoming Encounters Date Type Department Care Team (Late st Contact Info) Description 03/13/2024 9:45 AM EDT Office Visit Dermatology at [place] [address] [place] [address] Emiliano Salinas MD [address], [place] [address] documented as of this encounter Visit Diagnoses Diagnosis Nutritional counseling documented in this encounter Care Teams Morning Babysitter Relationship Specialty Start Date End Date Juan Smith MD [address] [place] [address] PCP - General Family Medicine 05/10/16 09/02/21 documented as of this encounter
--- OUTSIDE RECORDS SUMMARY | 2024-02-15 16:37 | XMS_ITS | Encounter Summary ---
Author Organization [facility] [place] [address] Care Team Providers Care Teacher Early Childhood Development Name Role Phone Juan Smith MD Primary Care Provider [phone] Reason for Referral * Diagnostic Test (Routine) - Closed Specialty Diagnoses / Procedures Referred By Contac t Referred To Contact Radiology Diagnoses Chest pain, unspecified type SOB (shortness of breath) Procedures NM Pharmacologic Stress Myocardial Perfusion Tory Chambers MD [facility] [place] [address] [place] [address] Referral ID Status Reason Start Date Expiration Date V isits Requested Visits Authorized [id number] Closed Specialty Service Requested 03/05/2019 05/03/2019 1 1 * Diagnostic Test (Routine) - Closed Specialty Diagnoses / Procedures Referred By Contac t Referred To Contact Radiology Diagnoses Chest pain, unspecified type SOB (shortness of breath) Procedures NM Pharmacologic Stress CT Component Tory Chambers MD [facility] [place] [address] [place] [address] Referral ID Status Reason Start Date Expiration Date V isits Requested Visits Authorized [id number] Closed Specialty Service Requested 02/13/2019 02/13/2020 1 1 Reason for Visit * Consultation (Routine) - Closed Specialty Diagnoses / Procedures Referred By Contac t Referred To Contact Cardiology Diagnoses Familial hypercholesterolemia Pt has not tolerated statins or PSK9 agents. Referral to [facility] lipid clinic. Juan Smith MD [facility] [address] Tory Chambers MD 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 She was in 2002 and has had a significant other for many years. Boyfriend (Deacon Peterson) lives in [place]. She has 5 children (2 biologic and [...] She has a niece that works for [employer] and told her about the [employer] IT [...] chicken sausage coffee almond milk Lunch: salad South Korean dressing, Oat bread sandwich - cheese and [...] azelastine (ASTELIN) 137 mcg (0.1 %) Aerosol, [place] 0 ??? PROVENTIL HFA 90 mcg/actuation HFA [...] Once daily ??? Mometasone (NASONEX) 50 mcg/Actuation [place] 2 [place](s) each nostril, Nasal, Twice daily No current [...] explained that it is offered here at [facility] but that it is quite a [...] 9:45 AM EDT Office Visit Dermatology at [place] [address] [place] [address] Emiliano Salinas MD [address], BAKARI [place] [address] documented as of this encounter Results * CRP, cardiac risk (HS CRP) (04/17/2019 9:21 AM EST) Pathologist [facility] C-Reactive Protein High Sensitivity 1.6 mg/L [facility] Comment: For cardiac risk assessment, [...] 2003; 107:363-369 CRP Cardiac Risk Moderate Risk [facility] Blood specimen (specimen) 04/17/2019 9:21 AM EST 04/17/2019 9:40 AM EST Narrative Resulting Agency Comment Spec In Lab Tory Chambers MD CHEMISTRY ORDERABLES [facility] [place] [address] * Lipid Panel (Reflex Direct LDL) (04/17/2019 9:21 AM EST) Pathologist [facility] Cholesterol, Total 252 mg/dL [facility] Comment: Lower Risk: <200 mg/dL Average Risk: 200-239 mg/dL Higher Risk: >db=814 mg/dL Triglyceride 157 mg/dL [facility] Comment: Average Risk/Lower Risk: <150 mg/dL Borderline High Risk: 150-199 mg/dL High Risk: 200-499 mg/dL Very High Risk: >jb=856 mg/dL HDL Cholesterol 74 mg/dL [facility] Comment: Males: ?? Higher Risk: <40 mg/dL Females: ?? HIgher Risk: <50 mg/dL LDL Cholesterol 147 mg/dL [facility] Comment: Lowest Risk: <100 mg/dL Lower Risk: 100-129 mg/dL Borderline High Risk: 130-159 mg/dL High Risk: 160-189 mg/dL Very High Risk: >tp=211 mg/dL Cholesterol/HDL Ratio 3.4 ratio [facility] Lipid Interpretation See Note [facility] Comment: Lipid management should be guided by a patient? s ASCVD risk, goals and preferences. ACC/AHA Guidelines recommend high intensity statin if clinical ASCVD or LDL greater than or equal to 190 mg/dL. http://TellmeGen.com/ZXD-BCN-Wkslybaqe Adults aged 40-75 with LDL 70-189 mg/dL should have their 10 year ASCVD risk estimated with the ACC/AHA ASCVD risk textile broker http://tools.acc.org/FSPLW-Kwbg-Ihwbeoukx/ Statin should be discussed if risk greater [...] In Lab Tory Chambers MD CHEMISTRY ORDERABLES [facility] [place] [address] * NM Pharmacologic Stress CT Component (03/12/2019 [...] contact the number below. Tory Chambers MD [facility] [place] ORDERABLES * TSH (02/13/2019 9:49 AM EDT) Thyroid Stimulating Hormone 2.34 0.27 - 4.20 mcIU/mL [facility] Blood specimen (specimen) 02/13/2019 9:49 AM EDT 02/13/2019 9:59 AM EDT Narrative Resulting Agency Comment Spec In Lab Tory Chambers MD CHEMISTRY ORDERABLES [facility] [place] [address] * (ABNORMAL) Comprehensive metabolic panel (non-fasting) (02/13/2019 9:49 AM EDT) Glucose 108 65 - 199 mg/dL [facility] Comment:Diabetes: >=200 mg/d L plus symptoms Blood Urea Nitrogen 19(H) 8 - 18 mg/dL [facility] Creatinine 0.79 0.70 - 1.20 mg/dL [facility] Sodium 142 135 - 145 mmol/L [facility] Potassium 3.6 3.5 - 5.0 mmol/L [facility] Comment: Please note: ??Patients with WBC >100,000 may have falsely elevated Potassium levels. ??For accurate Potassium quantification in these patients send serum separator tube (gold top) for subsequent determinations. ??Contact the Clinical Chemistry Laboratory if there are any questions. Chloride 101 98 - 107 mmol/L [facility] Carbon Dioxide 28 22 - 31 mmol/L [facility] Anion Gap 13 5 - 15 mmol/L [facility] Calcium 9.8 8.5 - 10.5 mg/dL [facility] Protein, Total 7.5 6.1 - 8.0 gm/dL [facility] Albumin 4.8 3.2 - 5.2 gm/dL [facility] Aspartate Aminotransferase 22 0 - 30 unit/L [facility] Alanine Aminotransferase 24 0 - 30 unit/L [facility] Alkaline Phosphatase 64 35 - 105 unit/L [facility] Bilirubin, Total 0.4 0.2 - 1.3 mg/dL [facility] Est Glomerular Filtration Rate 76 >=60 mL/min/1. 73 m?? [facility] Comment: The eGFR was calculated using the CKD-EPI equation. As with all creatinine based estimates of kidney function, eGFR values calculated with the CKD-EPI equation are not accurate in patients with acute kidney failure, extremes of body mass or the acutely ill. [email or web address]ONnkf eGFR 88 >=60 mL/min/1. 73 m?? [facility] Comment: The eGFR was calculated using the CKD-EPI equation. As with all creatinine based estimates of kidney function, eGFR values calculated with the CKD-EPI equation are not accurate in patients with acute kidney failure, extremes of body mass or the acutely ill. [email or web address]/[facility]ONnkf Blood specimen (specimen) 02/13/2019 9:49 AM EDT 02/13/2019 9:59 AM EDT Narrative Resulting Agency Comment Spec In Lab Tory Chambers MD CHEMISTRY ORDERABLES Performing Organization Address [facility]/ZIP Co de Phone Number [facility] [place] [address] * Lipoprotein A (02/13/2019 9:49 AM EDT) Lipoprotein (a) 6 <=30 mg/dL [facility] Comment: Test Performed by: [place] [address] Shopper Insights Manager: Kyle Michel M.D. Ph.D.; CLIA# [id number] Blood specimen (specimen) 02/13/2019 9:49 AM EDT 02/13/2019 3:06 PM EDT Narrative Resulting Agency Comment Spec In Lab Tory Chambers MD LAB SEND OUT ORDERAB LES Performing Organization Address City/[facility]/ZIP Co de Phone Number [facility] [place] [address] * Lipid Panel (02/13/2019 9:49 AM EDT) Cholesterol, Total 324 mg/dL [facility] Comment: Lower Risk: <200 mg/dL Average Risk: 200-239 mg/dL Higher Risk: >ha=672 mg/dL Triglyceride 183 mg/dL [facility] Comment: Average Risk/Lower Risk: <150 mg/dL Borderline High Risk: 150-199 mg/dL High Risk: 200-499 mg/dL Very High Risk: >il=623 mg/dL HDL Cholesterol 68 mg/dL [facility] Comment: Males: ?? Higher Risk: <40 mg/dL Females: ?? HIgher Risk: <50 mg/dL LDL Cholesterol 219 mg/dL [facility] Comment: Lowest Risk: <100 mg/dL Lower Risk: 100-129 mg/dL Borderline High Risk: 130-159 mg/dL High Risk: 160-189 mg/dL Very High Risk: >fc=436 mg/dL Cholesterol/HDL Ratio 4.8 ratio [facility] Lipid Interpretation See Note [facility] Comment: Lipid management should be guided by a patient? s ASCVD risk, goals and preferences. ACC/AHA Guidelines recommend high intensity statin if clinical ASCVD or LDL greater than or equal to 190 mg/dL. http://TellmeGen.com/VKS-FHP-Ijdiiqfid Adults aged 40-75 with LDL 70-189 mg/dL should have their 10 year ASCVD risk estimated with the ACC/AHA ASCVD risk textile broker http://tools.acc.org/CYILX-Htxd-Ztewnbmqc/ Statin should be discussed if risk greater [...] Chambers MD CHEMISTRY ORDERABLES Performing Organization Address City/State/[facility] Co de Phone Number [facility] [place] [address] documented in this encounter Visit Diagnoses Diagnosis Familial hypercholesterolemia Pure hypercholesterolemia Chest pain, unspecified type SOB (shortness of breath) Shortness of breath Chest pain, unspecified type SOB (shortness of breath) Shortness of breath Chest pain, unspecified type SOB (shortness of breath) Shortness of breath documented in this encounter Care Teams Teacher Early Childhood Development Relationship Specialty Start Date End Date Juan Smith MD [address] [place] [address] PCP - General Family Medicine 05/10/16 09/02/21 documented as of this encounter
--- OUTSIDE RECORDS SUMMARY | 2024-02-15 16:37 | XMS_ITS | Encounter Summary ---
Author Organization [facility] Address [facility] [place] [address] Care Team Providers Care Gauge Inspector Name Role Phone Chantell Sharma APRN Primary Care Provider [phone] Encounter Details Date Type Department Care Team (Late st Contact Info) Description 02/07/2016 Telephone Dermatology at [facility] [address] [place] [phone] Vern Salmeron MD [facility] [address] [place] [address] Social History Tobacco Use Types Packs/Day Years [...] RN - 02/07/2016 3:10 PM EDT This writer technical publications returned patient's call. She requested an estimate [...] 9:45 AM EDT Office Visit Dermatology at [place] [address] [facility] [place] [address] Emiliano Salinas MD [address], BAKARI [place] [address] documented as of this encounter Visit Diagnoses Not on filedocumented in this encounter Care Teams Gauge Inspector Relationship Specialty Start Date End Date Chantell Sharma APRN PCP - General 07/09/13 05/09/16 documented as of this encounter
--- OUTSIDE RECORDS SUMMARY | 2024-02-15 16:37 | XMS_ITS | Encounter Summary ---
Author Organization [facility] [place] [address] Care Team Providers Care Paper Stripper Name Role Phone Juan Smith MD Primary Care Provider [phone] Reason for Referral * Diagnostic Test (Routine) - Closed Specialty Diagnoses / Procedures Referred By Contac t Referred To Contact Radiology Diagnoses Chest pain, unspecified type SOB (shortness of breath) Procedures NM Pharmacologic Stress CT Component Tory Montalvo MD [facility] [place] [address] [place] [address] Referral ID Status Reason Start Date Expiration Date V isits Requested Visits Authorized [id number] Closed Specialty Service Requested 02/13/2019 02/13/2020 1 1 Reason for Visit * Diagnostic Test (Routine) - Closed Specialty Diagnoses / Procedures Referred By Contac t Referred To Contact Radiology Diagnoses Chest pain, unspecified type SOB (shortness of breath) Procedures NM Pharmacologic Stress CT Component Tory Montalvo MD [facility] [place] [address] [place] [address] Referral ID Status Reason Start Date Expiration Date V isits Requested Visits Authorized [id number] Closed Specialty Service Requested 02/13/2019 02/13/2020 1 1 Encounter Details Date Type Department Care Team (Latest Contact Info) Description 03/12/2019 9:24 AM EDT Hospital Encounter [place] [address] Tory Montalvo MD Chest pain, unspecified type; [...] azelastine (ASTELIN) 137 mcg (0.1 %) Aerosol, [place] 0 11/06/2017 0 09/03/2022 ASCORBATE CALCIUM (VITAMIN C ORAL) Take by mouth. 09/03/2022 ERGOCALCIFEROL, VITAMIN D2, (VITAMIN D ORAL) Take by mouth. multivitamin (THERAGRAN) tablet Take 1 tablet by mouth daily. 09/03/2022 fexofenadine (EVANGELINA) 180 mg tablet 180 mg, PO, Once daily 08/28/2010 09/03/2022 Mometasone (NASONEX) 50 mcg/Actuation [place] 2 [place](s) each nostril, Nasal, Twice daily 08/28/2010 09/03/2022 documented as of this encounter Plan of Treatment Upcoming Encounters Date Type Department Care Team (Late st Contact Info) Description 03/13/2024 9:45 AM EDT Office Visit Dermatology at [place] [address] [place] [address] Emiliano Salinas MD [address], [place] [address] documented as of this encounter Procedures Procedure [...] breath documented in this encounter Care Teams Paper Stripper Relationship Specialty Start Date End Date Juan Smith MD [address] [place] [address] PCP - General Family Medicine 05/10/16 09/02/21 documented as of this encounter
--- OUTSIDE RECORDS SUMMARY | 2024-02-15 16:37 | XMS_ITS | Encounter Summary ---
Author Organization [facility] Address [facility] [place] [address] Care Team Providers Care Cupola Operator Insulation Name Role Phone Chantell Sharma APRN Primary Care Provider [phone] Reason for Visit * Reason Comments Skin Check Hair Loss Encounter Details Date Type Department Care Team (Late st Contact Info) Description 02/06/2016 10:00 AM EDT Office Visit Dermatology at [facility] [address] [place] [address] Javan Juares MD [facility] [address] [place] [address] Androgenetic alopecia; Telangiectasia; Rhytides Social History Tobacco [...] also a patient of Dr. Salinas in [facility]. Skin History: Rosacea Telangiectasia Medical History: [...] MAGNESIUM ORAL) ??? Mometasone (NASONEX) 50 mcg/Actuation [place] 2 [place](s) each nostril, Nasal, Twice daily No current [...] the pt - discussed PDL versus IPL. JoséA ntonio Young RN,was apart for some of this [...] by Javan Juares MD Resident in Dermatology [facility] Staff reconcilement clerk: Karla Gaines MD Section of Dermatology [facility] * Karla Gaines MD - 02/06/2016 10:00 AM EDT I was the supervising physician working with Dermatology resident, Dr. Juares, in the Dermatology Clinic during this patient visit. The level of resident supervision for this patient visit was indirect supervision with direct supervision immediately available (definition: [facility] Policy Statement on Graduate Medical Education, Supervision of Graduate Medical Trainees). I was immediately available to Dr. Juares for questions and discussion regarding this visit. I have reviewed his encounter note details and level of service. KARLA GAINES MD [facility] Staff Physician documented in this encounter Plan of Treatment Upcoming Encounters Date Type Department Care Team (Late st Contact Info) Description 03/13/2024 9:45 AM EDT Office Visit Dermatology at [place] [address] [place] [address] Emiliano Salinas MD [address], [place] [address] documented as of this encounter Visit Diagnoses Diagnosis Androgenetic alopecia Other alopecia Telangiectasia Other and unspecified capillary diseases Rhytides Other specified hypertrophic and atrophic condition of skin documented in this encounter Care Teams Cupola Operator Insulation Relationship Specialty Start Date End Date Chantell Sharma APRN PCP - General 07/09/13 05/09/16 documented as of this encounter
--- OUTSIDE RECORDS SUMMARY | 2024-02-15 16:37 | XMS_ITS | Encounter Summary ---
Author Organization [facility] Address [facility] [place] [address] Care Team Providers Care Full Stack Software Developer Name Role Phone Juan Smith MD Primary Care Provider [phone] Reason for Visit * Reason Comments Laser Treatment Encounter Details Date Type Department Care Team (Late st Contact Info) Description 05/10/2016 1:30 PM EST Office Visit Dermatology at [facility] [address] [place] [address] Vern Salmeron MD [facility] [place] [address] Androgenic alopecia; Telangiectasia; Solar lentigo; Seborrheic keratosis [...] discomfort For further questions and concerns contact: [phone] Nurse message line [phone] Pita (Dr. Salmeron's Appointment Milking Worker) In any case of emergency for weekends and off hours please contact [facility] main number and ask for rn neonatal extrusion line operator at [phone] documented in this encounter Progress Notes * Vern Salmeron MD - 05/10/2016 1:30 PM EST Images from the original note were not included. Provider: Raymundo Salmeron M.D. ([id number]) Chief Problem: 1. Rosacea & Telangiectasias 2. [...] X 3 Sent to Sandra Perkins in [facility]. Follow up: Skin check 3-6 months Cosmetic [...] AM EDT Office Visit Dermatology at [address] [address] Emiliano Salinas MD [address] [facility], [place] [address] documented as of this encounter Visit Diagnoses Diagnosis Androgenic alopecia Other alopecia Telangiectasia Other and unspecified capillary diseases Solar lentigo Other dyschromia Seborrheic keratosis Other seborrheic keratosis documented in this encounter Care Teams Full Stack Software Developer Relationship Specialty Start Date End Date Juan Smiht MD [place] [address] PCP - General Family Medicine 05/10/16 09/02/21 documented as of this encounter
--- OUTSIDE RECORDS SUMMARY | 2024-02-15 16:37 | XMS_ITS | Encounter Summary ---
Author Organization [facility] [place] [address] Care Team Providers Care Magnetic Prospector Name Role Phone Sharma Chantellrebecca Lester APRN Primary Care Provider [phone] Reason for Visit * Reason Comments Follow Up Surgery BBR and abdominoplas ty Encounter Details Date Type Department Care Team (Late st Contact Info) Description 06/28/2015 1:00 PM EST Office [place] [address] Carlee Marvin MD [facility] [place] [place] [address] Status post bilateral breast reduction Social History [...] may remove with PCP or return to [facility]. 9. While traveling make sure to walk [...] her outcome. She will be traveling to [place] in August. Examination: Patient is alert, conversant, [...] may remove with PCP or return to [facility]. 9. While traveling make sure to walk [...] 9:45 AM EDT Office Visit Dermatology at [place] [address] [place] [address] Emiliano Salinas MD [address] [facility], [place] [address] documented as of this encounter Visit Diagnoses Diagnosis Status post bilateral breast reduction Other postprocedural status documented in this encounter Care Teams Magnetic Prospector Relationship Specialty Start Date End Date Chantell Sharma APRN PCP - General 07/09/13 05/09/16 documented as of this encounter
--- OUTSIDE RECORDS SUMMARY | 2024-02-15 16:37 | XMS_ITS | Encounter Summary ---
[place] [address] Care Team Providers Care Word Processing Supervisor Name Role Phone Juan Smith MD Primary Care Provider [phone] Reason for Visit * Reason Onset Date Comments Questions 06/15/2019 [facility] [employer] [facility] in [place], [place] Encounter Details Date Type Department Care Team (Late st Contact [facility]) Description 06/15/2019 Telephone Cardiology at [address] [phone] Rere Stock, RN Questions ([facility] [facility] in [place], [place]) Social History Tobacco Use Types Packs/Day [...] ask if she should see the new [facility] in [place], [place]: Dr Álvaro Sanchez. Pt encouraged to keep her 06/22/19 appt to establish care with the local certified control systems technician as she had been seeing the previous certified control systems technician. She will Keep Dr Montalvo for her lipid management. Pt verbalized good understanding of the current POC. documented in this encounter Plan of Treatment Upcoming Encounters Date Type Department Care Team (Late st Contact Info) Description 03/13/2024 9:45 AM EDT Office Visit Dermatology at [place] [address] [place] [address] Emiliano Salinas MD [address], [place] [address] documented as of this encounter Visit Diagnoses Not on filedocumented in this encounter Care Teams Word Processing Supervisor Relationship Specialty Start Date End Date Juan Smith MD [address] [place] [address] PCP - General Family Medicine 05/10/16 09/02/21 documented as of this encounter
--- OUTSIDE RECORDS SUMMARY | 2024-02-15 16:37 | XMS_ITS | Encounter Summary ---
Author Organization [facility] [place] [address] Care Team Providers Care Earth Moving Machine Operator Name Role Phone Chantell Sharma APRN Primary Care Provider [phone] Reason for Visit * Reason Comments Laser Treatment Encounter Details Date Type Department Care Team (Late st Contact Info) Description 02/06/2016 10:30 AM EDT Office Visit Dermatology at [facility] [address] [place] [address] Mariana Young, JYOTI Telangiectasia; Rhytides; Solar lentigo [...] discomfort For further questions and concerns contact: [phone] Pita (Dr. Salmeron's Appointment [place]) In any case of emergency for weekends and off hours please contact [facility] main number and ask for grinder mill operator cotton ball bagger at [phone] documented in this encounter Progress Notes * [...] rosacea, telangiectasias , lentigines and evans-oral wrinkles. Yesseina has had pulsed dye laser treatment in [...] 9:45 AM EDT Office Visit Dermatology at [place] [address] [place] [address] Emiliano Salinas MD [address] [facility], [place] [address] documented as of this encounter Visit Diagnoses Diagnosis Telangiectasia Other and unspecified capillary diseases Rhytides Other specified hypertrophic and atrophic condition of skin Solar lentigo Other dyschromia documented in this encounter Care Teams Earth Moving Machine Operator Relationship Specialty Start Date End Date Chantell Sharma APRN PCP - General 07/09/13 05/09/16 documented as of this encounter
--- OUTSIDE RECORDS SUMMARY | 2024-02-15 16:37 | XMS_ITS | Encounter Summary ---
[place] [address] Care Team Providers Care Poker Supervisor Name Role Phone Juan Smith MD Primary Care Provider [phone] Encounter Details Date Type Department Care Team (Late st Contact Info) Description 10/08/2019 Orders Only Cardiology at [address] [phone] Tory Montalvo MD Familial hypercholesterolemia; Coronary artery disease, angina presence unspecified, unspecified vessel or lesion type, unspecified whether [place] or transplanted heart Social History Tobacco Use [...] AM EDT Office Visit Dermatology at [place] [address] [facility] [place] [address] Emiliano Salinas MD [address], BAKARI A DERMATOLOGY [place], [place] [address] documented as of this encounter Visit Diagnoses Diagnosis Familial hypercholesterolemia Pure hypercholesterolemia Coronary artery disease, angina presence unspecified, unspecified vessel or lesion type, unspecified whether [place] or transplanted heart documented in this encounter Care Teams Poker Supervisor Relationship Specialty Start Date End Date Juan Smith MD [address] [place] [address] PCP - General Family Medicine 05/10/16 09/02/21 documented as of this encounter
--- OUTSIDE RECORDS SUMMARY | 2024-02-15 16:37 | XMS_ITS | Encounter Summary ---
Author Organization [facility] [place] [address] Care Team Providers Care Nutrition Services Aide Name Role Phone Juan Smith MD Primary Care Provider [phone] Reason for Visit * Diagnostic Test (Routine) - Closed Specialty Diagnoses / Procedures Referred By Contac t Referred To Contact Radiology Diagnoses Chest pain, unspecified type SOB (shortness of breath) Procedures NM Pharmacologic Stress Myocardial Perfusion Tory Montalvo MD [facility] [place] [address] [place] [address] Referral ID Status Reason Start Date Expiration Date V isits Requested Visits Authorized [id number] Closed Specialty Service Requested 03/05/2019 05/03/2019 1 1 Encounter Details Date Type Department Care Team (Latest Contact Info) Description 03/12/2019 9:24 AM EDT Hospital Encounter [place] [address] Tory Montalvo MD Discharge Disposition: [...] azelastine (ASTELIN) 137 mcg (0.1 %) Aerosol, [place] 0 11/06/2017 0 09/03/2022 ASCORBATE CALCIUM (VITAMIN C ORAL) Take by mouth. 09/03/2022 ERGOCALCIFEROL, VITAMIN D2, (VITAMIN D ORAL) Take by mouth. multivitamin (THERAGRAN) tablet Take 1 tablet by mouth daily. 09/03/2022 fexofenadine (EVANGELINA) 180 mg tablet 180 mg, PO, Once daily 08/28/2010 09/03/2022 Mometasone (NASONEX) 50 mcg/Actuation [place] 2 [place](s) each nostril, Nasal, Twice daily 08/28/2010 09/03/2022 documented as of this encounter Plan of Treatment Upcoming Encounters Date Type Department Care Team (Late st Contact Info) Description 03/13/2024 9:45 AM EDT Office Visit Dermatology at [place] [address] [place] [address] Emiliano Salinas MD [address], [place] [address] documented as of this encounter Procedures Procedure [...] Arm documented in this encounter Care Teams Nutrition Services Aide Relationship Specialty Start Date End Date Juan Smith MD [address] [place] [address] PCP - General Family Medicine 05/10/16 09/02/21 documented as of this encounter
--- OUTSIDE RECORDS SUMMARY | 2024-02-15 16:37 | XMS_ITS | Encounter Summary ---
[place] [address] Care Team Providers Care Endbander Name Role Phone Juan Smith MD Primary Care Provider [phone] Encounter Details Date Type Department Care Team (Latest Contact Info) Description 12/15/2019 Orders Only Cardiology at [address] [phone] Tory Montalvo MD Familial hypercholesterolemia Social History [...] 9:45 AM EDT Office Visit Dermatology at [place] [address] [place] [address] Emiliano Salinas MD [address], BAKARI [place] [address] documented as of this encounter Visit Diagnoses Diagnosis Familial hypercholesterolemia Pure hypercholesterolemia documented in this encounter Care Teams Endbander Relationship Specialty Start Date End Date Juan Smith MD [address] [place] [address] PCP - General Family Medicine 05/10/16 09/02/21 documented as of this encounter
--- OUTSIDE RECORDS SUMMARY | 2024-02-15 16:37 | XMS_ITS | Encounter Summary ---
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 PROVENTIL HFA 90 mcg/actuation HFA [...] Once daily ??? Mometasone (NASONEX) 50 mcg/Actuation [place] 2 [place](s) each nostril, Nasal, Twice daily No current [...] counseling TIMUR CHAMBERS MD 04/17/2019 CC: Juan Smith MD documented in this encounter Plan of Treatment Upcoming Encounters Date Type Department Care Team (Late st Contact Info) Description 03/13/2024 9:45 AM EDT Office Visit Dermatology at [place] [address] [place] [address] Emiliano Salinas MD [address], [place] [address] documented as of this encounter Visit Diagnoses Diagnosis Familial hypercholesterolemia Pure hypercholesterolemia documented in this encounter Care Teams Liquor Bridge Operator Relationship Specialty Start Date End Date Juan Smith MD [facility] [place] [address] PCP - General Family Medicine 05/10/16 09/02/21 documented as of this encounter
--- OUTSIDE RECORDS SUMMARY | 2024-02-15 16:38 | XMS_ITS | Encounter Summary ---
Author Organization [facility] [place] [address] Care Team Providers Care Drive Man Name Role Phone Gareth Gramajo MD Primary Care Provider + Reason for Visit * Reason Comments Procedure UDS Encounter Details Date Type Department Care Team (Latest Contact Info) Description 01/08/2012 8:15 AM EDT Procedure visit Obstetrics [place] [address] Juan Alberto Harrell MD [facility] DR OBSTETRICS [place] [address] Urinary incontinence, urge (Primary Dx) Discharge Disposition: [...] Female Pelvic Medicine and Reconstructive Surgery @ [facility] Urodynamic Procedure Note Patient name: Yessenia Luong [...] CYSTOMETROGRAM: Filling was performed via a 7 Amharic T-DOC catheter in the sitting position at a rate of 50cc/min. A 7 Amharic T-DOC catheter was placed in the rectum [...] 9:45 AM EDT Office Visit Dermatology at [place] [address] [place] [address] Emiliano Salinas MD [address] [facility], [place] [address] documented as of this encounter Visit Diagnoses Diagnosis Urinary incontinence, urge- Primary Urge incontinence documented in this encounter Care Teams Drive Man Relationship Specialty Start Date End Date Gareth Gramajo MD [address] [place] [address] PCP - General 04/24/11 07/08/13 documented as of this encounter
--- OUTSIDE RECORDS SUMMARY | 2024-02-15 16:38 | XMS_ITS | Encounter Summary ---
Author Organization [facility] [place] [address] Care Team Providers Care Backhaul Driver Name Role Phone Franca Charles MD Primary Care Provider [phone] Encounter Details Date Type Department Care Team (Late st Contact Info) Description 12/25/2010 Orders [place] [address] Mariana Hernandez MD [facility] [address] History of foreign travel (Primary Dx) Social [...] 60 y.o. female. History of travel to [place] on 11/27/2010 for 3 weeks while traveling [...] 500 mg BID for three days to [facility] in [facility]. Pt. States understanding she needs to give stool specimen before starting the antibiotic and agrees to do so. HPI Review of Systems Objective: Physical Exam Assessment and Plan: No problem-specific visit notes found for this encounter. documented in this encounter Plan of Treatment Upcoming Encounters Date Type Department Care Team (Late st Contact Info) Description 03/13/2024 9:45 AM EDT Office Visit Dermatology at [place] [address] [facility] [place] [address] Emiliano Salinas MD [address], [place] [address] documented as of this encounter Visit Diagnoses Diagnosis History of foreign travel- Primary Other specified conditions influencing health status documented in this encounter Care Teams Backhaul Driver Relationship Specialty Start Date End Date Franca Charles MD [address] [place] [address] PCP - General 05/02/10 01/30/11 documented as of this encounter
--- OUTSIDE RECORDS SUMMARY | 2024-02-15 16:38 | XMS_ITS | Encounter Summary ---
[place] [address] Care Team Providers Care Cribber Name Role Phone Gareth Gramajo MD Primary Care Provider + Reason for Visit * Reason Onset Date Comments Follow-up 01/25/2012 Encounter Details Date Type Department Care Team ([facility] Contact Info) Description 01/25/2012 Telephone Obstetrics [place] [address] Lien Patel, RN Follow-up Social History Tobacco [...] EDT Office Visit Dermatology at [place] [address] [place] [address] Emiliano Salinas MD [address], BAKAR[place] [address] documented as of this encounter Visit Diagnoses Not on filedocumented in this encounter Care Teams Cribber Relationship Specialty Start Date End Date Gareth Gramajo MD [address] [place] [address] PCP - General 04/24/11 07/08/13 documented as of this encounter
--- OUTSIDE RECORDS SUMMARY | 2024-02-15 16:38 | XMS_ITS | Encounter Summary ---
[place] [address] Care Team Providers Care Director Of Math Name Role Phone Gareth Gramajo MD Primary Care Provider + Reason for Visit * Reason Onset Date Comments Follow-up 12/10/2011 Encounter Details Date Type Department Care Team (Late st Contact Info) Description 12/10/2011 Telephone Obstetrics [place] [address] Lien Patel, RN Follow-up Social History Tobacco [...] AM EDT Office Visit Dermatology at [address] [place] [address] Emiliano Salinas MD [address] [place] [address] RD, [place] [address] documented as of this encounter Visit Diagnoses Not on filedocumented in this encounter Care Teams Director Of Math Relationship Specialty Start Date End Date Gareth Gramajo MD [address] [place] [address] PCP - General 04/24/11 07/08/13 documented as of this encounter
--- OUTSIDE RECORDS SUMMARY | 2024-02-15 16:38 | XMS_ITS | Encounter Summary ---
Author Organization [facility] [place] [address] Care Team Providers Care Registered Veterinary Technician Name Role Phone Chantell Sharma APRN Primary Care Provider [phone] Reason for Visit * Reason Comments Other Encounter Details Date Type Department Care Team (Late st Contact Info) Description 08/07/2013 [place] [phone] Lea Abdullahi MD [facility] DR ALLERGY [place] [address] Social History Tobacco Use Types Packs/Day Years [...] you get info on this patient from [place] yet in the mail? documented in this encounter Plan of Treatment Upcoming Encounters Date Type Department Care Team (Late st Contact Info) Description 03/13/2024 9:45 AM EDT Office Visit Dermatology at [place] [address] [facility] [place] [address] Emiliano Salinas MD [address], [place] [address] documented as of this encounter Visit Diagnoses Not on filedocumented in this encounter Care Teams Registered Veterinary Technician Relationship Specialty Start Date End Date Chantell Sharma APRN PCP - General 07/09/13 05/09/16 documented as of this encounter
--- OUTSIDE RECORDS SUMMARY | 2024-02-15 16:38 | XMS_ITS | Encounter Summary ---
Author Organization [facility] [place] [address] Care Team Providers Care Hide Dyer Name Role Phone Gareth Gramajo MD Primary Care Provider + Reason for Visit * Reason Comments Skin Check Encounter Details Date Type Department Care Team (Late st Contact Info) Description 04/24/2011 8:45 AM EST Office Visit Dermatology [address] [place], [place] [id number] Emiliano Salinas MD [address], [place] [address] Androgenetic alopecia (Primary Dx); Rosacea; Solar lentigo [...] information for Aide Hassan at [facility] in [place] to help Yessenia learn of new techniques to mask her hair thinning. Mild solar lentigos, mild photo aging. a. At patient request she was given refills for Tretinoin 0.025% Cream applying this on a q. h.s. basis one-half hour after washing, 45gm dispensed with p.r.n. refills. This was called into [facility] in [facility]. Benign skin examination. a. Patient reassured about benign skin examination. b. RTC p.r.n. Rosacea. a. Quiescent. documented in this encounter Plan of Treatment Upcoming Encounters Date Type Department Care Team (Late st Contact Info) Description 03/13/2024 9:45 AM EDT Office Visit Dermatology at [place] [address] [place] [address] Emiliano Salinas MD [address], [place] [address] documented as of this encounter Visit Diagnoses Diagnosis Androgenetic alopecia- Primary Other alopecia Rosacea Solar lentigo Other dyschromia documented in this encounter Care Teams Hide Dyer Relationship Specialty Start Date End Date Gareth Gramajo MD [address] [place] [address] PCP - General 04/24/11 07/08/13 documented as of this encounter
--- OUTSIDE RECORDS SUMMARY | 2024-02-15 16:38 | XMS_ITS | Encounter Summary ---
Author Organization [facility], Located [facility] [place] [address] Care Team Providers Care Pipe Organ Technician Name Role Phone Franca Charles MD Primary Care Provider [phone] Encounter Details Date Type Department Care Team (Late st Contact Info) Description 08/28/2010 11:00 AM EDT [place] [address] Vern Salmeron MD [facility] [address] [place] [address] Discharge Disposition: Home Social History Tobacco Use [...] 9:45 AM EDT Office Visit Dermatology at [place] [address] [place] [address] Emiliano Salinas MD [address], [place] [address] documented as of this encounter Visit Diagnoses Not on filedocumented in this encounter Care Teams Pipe Organ Technician Relationship Specialty Start Date End Date Franca Charles MD [address] [place] [address] PCP - General 05/02/10 01/30/11 documented as of this encounter
--- OUTSIDE RECORDS SUMMARY | 2024-02-15 16:38 | XMS_ITS | Encounter Summary ---
Author Organization [facility] [place] [address] Care Team Providers Care Graphic Design Teacher Name Role Phone SharmaChantell APRN Primary Care Provider [phone] Reason for Visit * Reason Comments Skin Check Encounter Details Date Type Department Care Team (Late st Contact Info) Description 07/30/2014 9:30 AM EST Office Visit Dermatology at [address] [place] [address] Emiliano Salinas MD [address], BAKARI A DERMATOLOGY [place], [place] [id number] Androgenetic alopecia; Solar lentigo Discharge Disposition: Home [...] from the original note were not included. [facility] Hair Loss From Alopecia Areata: After Your [...] more? Visit our health information library at [email or web address] You can also view health information on [facility], your personal patient account. Log in or sign up today. Enter Y465 in the search box to learn more about Hair Loss From Alopecia Areata: After Your Visit. ?? [id number] [employer]. Care instructions adapted under license by [facility]. This care instruction is for use with your licensed healthcare professional. If you have questions about a medical condition or this instruction, always ask your healthcare professional. [employer], [employer] disclaims any warranty or liability for your use of this information. Content Version: 10.3.285024; Current as of: August 19, 2013 [facility] Hair Loss From Alopecia Areata: After Your [...] more? Visit our health information library at [email or web address] You can also view health information on [facility], your personal patient account. Log in or sign up today. Enter Y465 in the search box to learn more about Hair Loss From Alopecia Areata: After Your Visit. ?? 2392-1735 [employer]. Care instructions adapted under license by [facility]. This care instruction is for use with your licensed healthcare professional. If you have questions about a medical condition or this instruction, always ask your healthcare professional. [employer] disclaims any warranty or liability for your use of this information. Content Version: 10.3.376333; Current as of: August 19, 2013 documented [...] information about the [facility] in [place] and I recommended considering a consultation visit there. 2. Solar lentigos, facial. a. The patient requested and was given facial treatment. I recommended tretinoin 0.025% cream to apply on a nightly basis. She may use it every other night if too drying; 20 grams dispensed with five refills. Apply half an hour after washing. b. The patient knows this will be an [id number] expense, not covered by insurance. This will be called in to her [facility] in [facility]. c. Return to clinic in another year for repeat check. Note: Half an hour was spent with the patient, more than half spent in counseling. documented in this encounter Plan of Treatment Upcoming Encounters Date Type Department Care Team (Late st Contact Info) Description 03/13/2024 9:45 AM EDT Office Visit Dermatology at [place] [address] [place] [address] Emiliano Salinas MD [address], [place] [address] documented as of this encounter Visit Diagnoses Diagnosis Androgenetic alopecia Other alopecia Solar lentigo Other dyschromia documented in this encounter Care Teams Graphic Design Teacher Relationship Specialty Start Date End Date Chantell Sharma APRN PCP - General 07/09/13 05/09/16 documented as of this encounter
--- OUTSIDE RECORDS SUMMARY | 2024-02-15 16:38 | XMS_ITS | Encounter Summary ---
Author Organization [facility] [place] [address] Care Team Providers Care Felting Machine Operator Name Role Phone Franca Charles MD Primary Care Provider [phone] Encounter Details Date Type Department Care Team (Late st Contact Info) Description 07/09/2010 8:00 PM EST Procedure [place] [address] Leisa Lewis MD [facility] [place] [address] Social History Tobacco Use Types Packs/Day Years [...] 9:45 AM EDT Office Visit Dermatology at [place] [address] [place] [address] Emiliano Salinas MD [address], [place]AR[place] [address] documented as of this encounter Visit Diagnoses Not on filedocumented in this encounter Care Teams Felting Machine Operator Relationship Specialty Start Date End Date Franca Charles MD [address] [place] [address] PCP - General 05/02/10 01/30/11 documented as of this encounter
--- OUTSIDE RECORDS SUMMARY | 2024-02-15 16:38 | XMS_ITS | Encounter Summary ---
Author Organization [facility] [place] [address] Care Team Providers Care Endoscopic Technician Name Role Phone Franca Charles MD Primary Care Provider [phone] Encounter Details Date Type Department Care Team (Late st Contact Info) Description 07/16/2010 8:00 PM EST Procedure [place] [address] Gelacio Blevins MD [facility] [place] [place] [address] Social History Tobacco Use Types Packs/Day Years [...] 9:45 AM EDT Office Visit Dermatology at [place] [address] [place] [address] Emiliano Salinas MD [address], [place]AKAR[place] [address] documented as of this encounter Visit Diagnoses Not on filedocumented in this encounter Care Teams Endoscopic Technician Relationship Specialty Start Date End Date Franca Charles MD [address] [place] [address] PCP - General 05/02/10 01/30/11 documented as of this encounter
--- OUTSIDE RECORDS SUMMARY | 2024-02-15 16:38 | XMS_ITS | Encounter Summary ---
Author Organization [facility] [place] [address] Care Team Providers Care Senior Test Engineer Name Role Phone Sharma Chantellrebecca Lester APRN Primary Care Provider [phone] Reason for Visit * Reason Comments Skin Check Encounter Details Date Type Department Care Team (Late st Contact Info) Description 08/07/2013 10:15 AM EST Office Visit Dermatology at [address] [address] Emiliano Salinas MD [address] [facility], MANINDER A DERMATOLOGY [place], [place] [address] Solar lentigo (Primary Dx); Female pattern alopecia [...] p.r.n. refills. This was sent to her [facility] in [facility]. She knows this will be an ehz-[id number] expense. 3. Xerosis. a. I recommended that the patient use CeraVe cream on a regular b.i.d. basis. b. Return to clinic here in one year for repeat check; reminder in one year. COPY: Nova Muhammad.Jena.Mt Note: Half an hour was spent with [...] 9:45 AM EDT Office Visit Dermatology at [place] [address] [place] [address] Emiliano Salinas MD [address] [facility], [place] [address] documented as of this encounter Visit Diagnoses Diagnosis Solar lentigo- Primary Other dyschromia Female pattern alopecia Alopecia, unspecified documented in this encounter Care Teams Senior Test Engineer Relationship Specialty Start Date End Date Chantell Sharma APRN PCP - General 07/09/13 05/09/16 documented as of this encounter
--- OUTSIDE RECORDS SUMMARY | 2024-02-15 16:38 | XMS_ITS | Encounter Summary ---
[facility] [place] [address] Care Team Providers Care Patient Centered Care Specialist Name Role Phone Susan Sharmarebecca Lester APRN Primary Care Provider [phone] Reason for Visit * Reason Onset Date Comments Results 08/05/2013 Encounter Details Date Type Department Care Team (Late st Contact Info) Description 08/05/2013 [place] [address] Yashira Abdullahi MD [facility] [address] [place] [address] Results Social History Tobacco Use Types Packs/Day [...] 9:45 AM EDT Office Visit Dermatology at [place] [address] [place] [address] Emiliano Salinas MD [address], BAKARI [place] [address] documented as of this encounter Visit Diagnoses Not on filedocumented in this encounter Care Teams Patient Centered Care Specialist Relationship Specialty Start Date End Date Chantell Sharma APRN PCP - General 07/09/13 05/09/16 documented as of this encounter
--- OUTSIDE RECORDS SUMMARY | 2024-02-15 16:38 | XMS_ITS | Encounter Summary ---
Author Organization [facility] [place] [address] Care Team Providers Care Electric Meter Tester Name Role Phone Franca Charles MD Primary Care Provider [phone] Encounter Details Date Type Department Care Team (Late st Contact Info) Description 08/28/2010 10:30 AM EDT [place] [address] Vern Salmeron MD [facility] [address] [place] [address] Discharge Disposition: Home Social History Tobacco Use [...] 9:45 AM EDT Office Visit Dermatology at [place] [address] [place] [address] Emiliano Salinas MD [address], [place] [address] documented as of this encounter Visit Diagnoses Not on filedocumented in this encounter Care Teams Electric Meter Tester Relationship Specialty Start Date End Date Franca Charles MD [address] [place] [address] PCP - General 05/02/10 01/30/11 documented as of this encounter
--- OUTSIDE RECORDS SUMMARY | 2024-02-15 16:38 | XMS_ITS | Encounter Summary ---
Author Organization [facility] Address [facility] [place] [address] Care Team Providers Care Kiln Drawer Name Role Phone Gareth Cunningham MD Primary Care Provider + Reason for Visit * Reason Comments Obstructive Sleep Apnea Encounter Details Date Type Department Care Team (Late st Contact Info) Description 07/12/2011 8:35 AM EST [place] [address] Sunita Mcknight MD [facility] [place] [address] THERESA (obstructive sleep apnea) (Primary Dx) Social [...] shifts in position Aerophagia: None Daytime Symptoms: [place]: not done Upon Awakening: unrefreshed, feels groggy. [...] Disp: , Rfl: ;Mometasone (NASONEX) 50 mcg/Actuation [place], 2 Tony(s) each nostril, Nasal, Twice daily, Disp: , [...] drowsy dont drive, if drowsy while driving bone puller and take a nap. 4. Dental [...] 9:45 AM EDT Office Visit Dermatology at [place] [address] [place] [address] Emiliano Salinas MD [address], [place] [address] documented as of this encounter Visit Diagnoses Diagnosis THERESA (obstructive sleep apnea)- Primary Obstructive sleep apnea (adult) (pediatric) documented in this encounter Care Teams Kiln Drawer Relationship Specialty Start Date End Date Gareth Cunningham MD [address] [place] [address] PCP - General 04/24/11 07/08/13 documented as of this encounter
--- OUTSIDE RECORDS SUMMARY | 2024-02-15 16:38 | XMS_ITS | Encounter Summary ---
Author Organization [facility] [place] [address] Care Team Providers Care Business Job Titles Name Role Phone Franca Charles MD Primary Care Provider [phone] Reason for Visit * Reason Comments Obstructive Sleep Apnea Encounter Details Date Type Department Care Team (Late st Contact Info) Description 10/17/2010 3:05 PM EDT Office Visit Sleep Medicine [place] [id number] Gaby [place] [address] THERESA (obstructive sleep apnea) (Primary Dx) Social [...] subjective improvements in daytime symptoms and sleep congregation since starting CPAP. The smart card data [...] 9:45 AM EDT Office Visit Dermatology at [place] [address] [place] [address] Emiliano Salinas MD [address] [facility], [place]IND[place] [address] documented as of this encounter Visit Diagnoses Diagnosis THERESA (obstructive sleep apnea)- Primary Obstructive sleep apnea (adult) (pediatric) documented in this encounter Care Teams Business Job Titles Relationship Specialty Start Date End Date Franca Charles MD [address] [place] [address] PCP - General 05/02/10 01/30/11 documented as of this encounter
--- OUTSIDE RECORDS SUMMARY | 2024-02-15 16:38 | XMS_ITS | Encounter Summary ---
Author Organization [facility] [place] [address] Care Team Providers Care Farmworker Turkey Farm Name Role Phone Chantell Sharma APRN Primary Care Provider [phone] Reason for Visit * Reason Comments Allergic Rhinitis Encounter Details Date Type Department Care Team (Late st Contact Info) Description 07/09/2013 1:45 PM EST [place] [address] Yashira Abdullahi MD [facility] [address] [place]ERGY [place] [address] Allergic rhinoconjunctivitis, bilateral (Primary Dx); Mild intermittent [...] encasings, pillow and mattress ( ie From [employer]; [employer], [employer], What[employer], [employer], [employer]) 2. Wash bedding in hot water (no [...] weekly at Dr. Jere Estevez's office in [facility]. She receives two shots per week. She [...] MAGNESIUM ORAL) ??? Mometasone (NASONEX) 50 mcg/Actuation [place] 2 Jones(s) each nostril, Nasal, Twice daily ??? albuterol (VENTOLIN HFA) 90 mcg/Actuation inhaler 1-2 puffs, Inh, Q4-6H PRN Past Medical and Social History: Past Medical History Diagnosis Date ??? 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 Rosacea 04/24/2011 ??? THERESA (obstructive sleep apnea) 11/21/2011 ??? Urinary incontinence, urge 01/08/2012 Past Surgical History Procedure Date ??? Vaginal prolapse repair 04/11/2007 Dr. Castaneda, at [facility] ??? section 1979, 1981 ??? Miguel and [...] ??? 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 Normal [...] 9:45 AM EDT Office Visit Dermatology at [place] [address] [facility] [address] [place] [address] Emiliano Salinas MD [address], BAKAR[place] [address] documented as of this encounter Procedures Procedure [...] ng/mL CERNER MILLENNIUM Comment: Test Performed by: [place] [address] Market Risk Manager: Bruce Abdalla III, M.D. Blood specimen (specimen) 07/09/2013 3:40 PM EST 07/10/2013 9:44 AM EST Narrative Resulting Agency Comment Spec In Lab Yashira Abdullahi MD CHEMISTRY ORDERABLES Performing Organization Address [facility] Co de Phone Number [facility] LINDSEYENNIUM * Venom, Yellow Jacket IgE (07/09/2013 3:40 PM EST) Yellow Jacket IgE 22.8 kU/L CE RNER MILLENNIUM Comment: Class 4 (Strongly Positive 17.5-49.9) Test Performed by: [place] [address] Market Risk Manager: Bruce Abdalla III, M.D. Blood specimen (specimen) 07/09/2013 3:40 PM EST 07/10/2013 8:40 AM EST Narrative Resulting Agency Comment Spec In Lab Yashira Abdullahi MD IMMUNOLOGY ORDERABLE S Performing Organization Address City/[facility]/ZIP Co de Phone Number [facility] * Venom, Hornet, Yellow-Faced IgE (07/09/2013 3:40 PM EST) [place] Hornet Venom IgE 6.10 kU/L CERNER MILLENNIUM Comment: Class 3 (Positive 3.50-17.4) Test Performed by: [place] [address] Market Risk Manager: Bruce Abdalla III, M.D. Blood specimen (specimen) 07/09/2013 3:40 PM EST 07/10/2013 8:40 AM EST Narrative Resulting Agency Comment Spec In Lab Yashira Abdullahi MD IMMUNOLOGY ORDERABLE S Performing Organization Address City/[facility] Co de Phone Number CERNER MILLENNIUM * Venom, White Faced Hornet IgE (07/09/2013 3:40 PM EST) [place] Hornet Venom IgE 11.0 kU/L CERNER MILLENNIUM Comment: Class 3 (Positive 3.50-17.4) Test Performed by: [place] [address] Market Risk Manager: Bruce Abdalla III, M.D. Blood specimen (specimen) 07/09/2013 3:40 PM EST 07/10/2013 8:40 AM EST Narrative Resulting Agency Comment Spec In Lab Yashira Abdullahi MD IMMUNOLOGY ORDERABLE S Performing Organization Address [facility] de Phone Number CERNER MILLENNIUM * Venom, Wasp IgE (07/09/2013 3:40 PM EST) Wasp IgE 22.5 kU/L CERNER MILLENNIUM Comment: Class 4 (Strongly Positive 17.5-49.9) Test Performed by: [place] [address] Market Risk Manager: Bruce Abdalla III, M.D. Blood specimen (specimen) 07/09/2013 3:40 PM EST 07/10/2013 8:40 AM EST Narrative Resulting Agency Comment Spec In Lab Yashira Abdullahi MD IMMUNOLOGY ORDERABLE S Performing Organization Address City/[facility] de Phone Number CERNER MILLENNIUM * Venom, Honeybee IgE (07/09/2013 3:40 PM EST) Honeybee Venom IgE 1.31 kU/L CERNER MILLENNIUM Comment: Class 2 (Positive 0.70-3.49) Test Performed by: [place] [address] Market Risk Manager: Bruce Abdalla III, M.D. Blood specimen (specimen) 07/09/2013 3:40 PM EST 07/10/2013 8:40 AM EST Narrative Resulting Agency Comment Spec In Lab Yashira Abdullahi MD IMMUNOLOGY ORDERABLE S Performing Organization Address City/State/[facility] Co de Phone Number [facility] documented in this encounter Visit Diagnoses Diagnosis Allergic rhinoconjunctivitis, bilateral- Primary Mild intermittent asthma, uncomplicated Unspecified asthma Environmental allergies Allergic rhinitis, cause unspecified Allergy to insect stings Allergy, unspecified not elsewhere classified Chronic urticaria Other specified urticaria documented in this encounter Care Teams Farmworker [employer] Relationship Specialty Start Date End Date Chantell Sharma APRN PCP - General 07/09/13 05/09/16 documented as of this encounter
--- OUTSIDE RECORDS SUMMARY | 2024-02-15 16:38 | XMS_ITS | Encounter Summary ---
Author Organization [facility] [place] [address] Care Team Providers Care Traffic Operator Name Role Phone Gareth Gramajo MD Primary Care Provider + Encounter Details Date Type Department Care Team (Late st Contact Info) Description 01/24/2012 Orders Only Obstetrics [place] [phone] Lien Patel RN Urge incontinence (Primary Dx) [...] 9:45 AM EDT Office Visit Dermatology at [place] [address] [place] [address] Emiliano Salinas MD [address], [place] [address] documented as of this encounter Visit Diagnoses Diagnosis Urge incontinence- Primary documented in this encounter Care Teams Traffic Operator Relationship Specialty Start Date End Date Gareth Gramajo MD [address] [place] [address] PCP - General 04/24/11 07/08/13 documented as of this encounter
--- OUTSIDE RECORDS SUMMARY | 2024-02-15 16:38 | XMS_ITS | Encounter Summary ---
[place] [address] Care Team Providers Care Tinter Photograph Name Role Phone Franca Charles MD Primary Care Provider [phone] Reason for Visit * Reason Comments Travel Consult Encounter Details Date Type Department Care Team (Late st Contact Info) Description 10/17/2010 2:00 PM EDT Office [place] [phone] Danika Chin RN Travel foreign (Primary Dx); [...] countries (list from first to last): [place], [facility], [facility], [place] Departure date: 11/27/2010 Length of trip 3 [...] other STD's, TB and Health Insurance c[employer]. Discussed food and water precautions and patient [...] or get this done through their primary district manager primary care sales. Patient advised to call travel clinic if [...] Discussed actions to take if exposure occurs [facility]. Meningococcal Yellow Fever Pneumococcal 09/15/2004 PPD Skin test ID ATTENDING I agree with this plan to prepare this patient for travel to [place]. documented in this encounter Plan of Treatment Upcoming Encounters Date Type Department Care Team (Late st Contact Info) Description 03/13/2024 9:45 AM EDT Office Visit Dermatology at [place] [address] [place] [address] Emiliano Salinas MD [address], [place] [address] documented as of this encounter Visit Diagnoses Diagnosis Travel foreign- Primary Other specified conditions influencing health status Foreign travel Other specified conditions influencing health status documented in this encounter Care Teams Tinter Photograph Relationship Specialty Start Date End Date Franca Charles MD [address] [place] [address] PCP - General 05/02/10 01/30/11 documented as of this encounter
--- OUTSIDE RECORDS SUMMARY | 2024-02-15 16:38 | XMS_ITS | Encounter Summary ---
Author Organization [facility], Located Within [facility] [place] [address] Care Team Providers Care Environmental Services Attendant Name Role Phone Unavailable Primary Care Provider Unavailabl e Encounter Details Date Type Department Care Team (Late st Contact Info) Description 04/19/2010 3:15 PM EST Office Visit Dermatology [address] [place] [address] [address] [place] [address] Emiliano Salinas MD [address] [facility], [facility] [place] [address] Social History Tobacco Use Types Packs/Day Years [...] EDT Office Visit Dermatology at [place] [address] [place] [phone] Emiliano Salinas MD [address] [facility], [place] [address] documented as of this encounter Visit Diagnoses Not on filedocumented in this encounter
--- OUTSIDE RECORDS SUMMARY | 2024-02-15 16:38 | XMS_ITS | Encounter Summary ---
Author Organization [facility] [place] [address] Care Team Providers Care Activity Therapy Teacher Name Role Phone Franca Charles MD Primary Care Provider [phone] Encounter Details Date Type Department Care Team (Late st Contact Info) Description 07/17/2010 8:30 AM EST [place] [address] Gelacio Blevins MD [facility] [place] [address] Social History Tobacco Use Types Packs/Day Years [...] 9:45 AM EDT Office Visit Dermatology at [place] [address] [place] [address] Emiliano Salinas MD [address], [place]AR[place] [address] documented as of this encounter Visit Diagnoses Not on filedocumented in this encounter Care Teams Activity Therapy Teacher Relationship Specialty Start Date End Date Franca Charles MD [address] [place] [address] PCP - General 05/02/10 01/30/11 documented as of this encounter
--- OUTSIDE RECORDS SUMMARY | 2024-02-15 16:38 | XMS_ITS | Encounter Summary ---
Author Organization [facility] [place] [address] Care Team Providers Care Public Relations Player Name Role Phone Chantell Mims APRN Primary Care Provider [phone] Reason for Visit * Reason Comments Advice Only liposuction abdomen, bbr, Encounter Details Date Type Department Care Team (Late st Contact Info) Description 02/08/2015 9:45 AM EDT [place] [address] Carlee Marvin MD [facility] [place] [address] Macromastia Discharge Disposition: Home Social History Tobacco [...] Vaginal prolapse repair 04/11/2007 Dr. Castaneda, at [facility] ??? 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 traZODone (DESYREL) 100 mg tablet Take 100 mg by mouth nightly. ??? fexofenadine (EVANGELINA) 180 mg tablet 180 mg, PO, Once daily ??? Mometasone (NASONEX) 50 mcg/Actuation [place] 2 [place](s) each nostril, Nasal, Twice daily ??? [DISCONTINUED] [...] her breast-related symptoms. She was providedwith an [facility] brochure and informed consent on breast reduction. [...] possibilities. She has been provided with the [facility] patient information brochure as well as their [...] surgery is best done at a realistic mcc stable weight. We talked about the outpatient nature of the surgery, drains, postoperative recovery, and time required off work. She has been referred to [email or web address] and provided with my e-mail address. [...] revisions for scarring or asymmetry.) Fuentes or Gustine Pattern Incision: More scarring on breast, but [...] 30 minutes liposuction of axillary region CPT: 14858, 36349, 72497 ( 30 minutes) Surgical site: Breast/abdomen Side: [...] 9:45 AM EDT Office Visit Dermatology at [place] [address] [place] [address] Emiliano Salinas MD [address], [place] [address] documented as of this encounter Procedures Procedure Name Priority Date/Time Associated Diagnosis Comments REDUCTION MAMMOPLASTY, BILATERAL Routine 02/08/2015 11:26 AM EDT documented in this encounter Visit Diagnoses Diagnosis Macromastia Hypertrophy of breast documented in this encounter Care Teams Public Relations Player Relationship Specialty Start Date End Date Chantell Mims APRN PCP - General 07/09/13 05/09/16 documented as of this encounter
--- OUTSIDE RECORDS SUMMARY | 2024-02-15 16:38 | XMS_ITS | Encounter Summary ---
Author Organization [facility] [place] [address] Care Team Providers Care Equipment Sales Specialist Name Role Phone Gareth Gramajo MD Primary Care Provider + Encounter Details Date Type Department Care Team (Late st Contact Info) Description 12/19/2011 Telephone Obstetrics [place] [phone] Tenzin Harrell MD [facility] [place]STET[place] [address] Social History Tobacco Use Types Packs/Day Years [...] 9:45 AM EDT Office Visit Dermatology at [place] [address] [facility] [place] [address] Emiliano Salinas MD [address], BAKARI [place] [address] documented as of this encounter Visit Diagnoses Diagnosis Urinary incontinence, mixed- Primary Mixed incontinence urge and stress (male)(female) documented in this encounter Care Teams Equipment Sales Specialist Relationship Specialty Start Date End Date Gareth Gramajo MD [address] [place] [address] PCP - General 04/24/11 07/08/13 documented as of this encounter
--- OUTSIDE RECORDS SUMMARY | 2024-02-15 16:38 | XMS_ITS | Encounter Summary ---
Author Organization [facility] [place] [address] Care Team Providers Care High School Computer Science Teacher Name Role Phone Chantell Mims APRN Primary Care Provider [phone] Reason for Visit * Auth/Cert Specialty Diagnoses / Procedures Referred By Veronica t Referred To Contact Diagnoses Hypertrophy of breast Procedures PRO REDUCTION OF LARGE BREAST PRO EXCISE EXCESS SKIN TISSUE, ABDOMEN PRO SUCT SARAH LIPECTOMY, TRUNK 57076 BILAT 96625 ALSO BILAT 97639 Referral ID Status Reason Start Date Expiration Date Visits Re quested Visits Authorized [id number] 1 1 Encounter Details Date Type Department Care Team (Latest Contact Info) Description 06/14/2015 11:54 AM EST - 06/15/2015 5:08 PM [facility] Hospital Encounter [address] [place] [address] Carlee Montenegro MD [facility] [place] [address] S/P reduction mammoplasty Discharge Disposition: Home Social [...] 1 tablet Refills: 0 NASONEX 50 mcg/actuation [place] 2 [place](s) each nostril, Nasal, Twice daily Generic drug: [...] APRN BAKARI [address] [facility] [address] Scheduled Appointments: The following appointments have been scheduled on your behalf: No future appointments. Outpatient Services/Studies: Referral to Home Health - at DISCHARGE Scheduling Instructions: DOCUMENTATION FOR VNA SERVICES (INCLUDING THOSE PATIENTS WITH MEDICARE COVERAGE REQUIRING HOME VNA SERVICES AND/OR HOSPICE SERVICES) PATIENT'S LOCATION: Yessenia Luong [address] [place] [phone] (home) Cell: Telephone Information: [employer]'s Name: self In discussion with the attending physician, it is certified that this patient is under their care and that they, or a Nurse Practitioner,Clinical Nurse specialist or Physician Director Digital who is working directly with them, had [...] for managing ADL's. HOME HEALTH CARE AGENCY: [facility] PHONE: [phone] FAX: [phone] Start of care: 06/16/2015 FOR MEDICARE ONLY: [...] obtained from this patient's PCP: CHANTELL MIMS, WIRE COMMUNICATIONS ENGINEER BAKARI [address] [place] [address] All A agencies which cover the area of patient's residence have been reviewed, either verbally ida writing, and patient/family have chosen the home health care agency noted A list of Home Health Agencies/DMEs which serve the geographic area which the patient resides or the geographic area requested by the patient/product representative was made available.Full Disclosure Statement provided, as appropriate. Patient requests referral to [facility]. Referral matched w agency/vendor and info provided via [employer] program Question Response Notes Agency name and contact information [facility] Patient location post discharge home What services [...] good night sleep. Pain (short term and mobility scooter repairer) ?? With any surgery there is some discomfort or pain. We will prescribe pain medication. Take as prescribed and only as needed. OK to take Tylenol, do not exceed 3 grams per day. OK to add Ibuprofen 48 hours after surgery. ?? We recommend taking an nwkt-lkd-Onkeeim stool softener, such as Colace (docusate) or [...] scheduling, please contact our administrative offices at [phone] ?? For clinical questions, please call our nurses at [phone] ?? Both offices are open Saturday thru Saturday 8a - 5p. With emergencies after hours, call the hospital reel system operator at [phone] and ask for the Plastic Surgery Resident translation director. Instructions for Abdominal Surgery During the first [...] from each drain. Call the clinic at [phone] and schedule an appointment with the nurses [...] Saturday 8 am to 5 pm Call [phone] On weekends or after hours: Call [phone] and ask the reel system operator to page the Plastic Surgery Resident translation director. Prescription Line: Call the line at [phone] from 8am-4pm Saturday through Saturday. Narcotic renewals [...] good night sleep. Pain (short term and penitentiary) ?? With any surgery there is some discomfort or pain. We will prescribe pain medication. Take as prescribed and only as needed. OK to take Tylenol, do not exceed 3 grams per day. OK to add Ibuprofen 48 hours after surgery. ?? We recommend taking an owzq-ian-Hueogaz stool softener, such as Colace (docusate) or [...] scheduling, please contact our administrative offices at [phone] ?? For clinical questions, please call our nurses at [phone] ?? Both offices are open Saturday thru Saturday 8a - 5p. With emergencies after hours, call the hospital reel system operator at [phone] and ask for the Plastic Surgery Resident translation director. Instructions for Abdominal Surgery During the first [...] from each drain. Call the clinic at [phone] and schedule an appointment with the nurses [...] Saturday 8 am to 5 pm Call [phone] On weekends or after hours: Call [phone] and ask the reel system operator to page the Plastic Surgery Resident translation director. Prescription Line: Call the line at [phone] from 8am-4pm Saturday through Saturday. Narcotic renewals [...] mouth nightly. 12/06/2017 fluticasone (FLONASE) 50 mcg/actuation [place], Suspension 1 spray daily. 06/23/19 16 BUDESONIDE/FORMOTEROL [...] ORAL) 08/28/2010 12/06/2017 Mometasone (NASONEX) 50 mcg/Actuation [place] 2 [place](s) each nostril, Nasal, Twice daily 08/28/2010 09/03/2022 documented as of this encounter Progress Notes * Jyoti Ingram RN - 06/15/2015 4:43 PM EST I assumed care for this [atoient from [phone]. Patient discharged to home. IV removed, site [...] or the geographic area requested by the patient/product representative was made available.Full Disclosure Statementprovided, as appropriate. Patient requests referral to [facility]. Referral matched w agency/vendor and info provided via [employer] * Wilman Jacobo MD - 06/14/2015 11:55 PM EST Post-Operative Progress Note Patient: Yessenia Luong s/p Surgery: 06/14/2015 [id number] Procedure(s) (LRB): REDUCTION MAMMOPLASTY, ADAM (Bilateral) ABDOMINOPLASTY (N/A) SUCTION ASSISTED LIPECTOMY,TRUNK (Bilateral) Surgeon(s) and Role: * Carlee Montenegro MD - Primary * Dudley Kramer MD: 3 Hr 37 Min 29 Sec * No complications entered in OR log * Short History: awakened from anesthesia, extubated and taken to the recovery room in a stable condition, having suffered no apparent untoward event. Patient location: [facility] Surgical Floor Post-op Consciousness awake, alert and [...] situation facilitated * Op Note - Carlee Montenergo MD - 06/14/2015 8:03 PM EST [facility] Operative Note Patient Name: Yessenia Luong : [id number] MR#: [id number] Case Date: 06/14/2015 Surgeon: Surgeon(s) and Role: [...] Operative Note Patient Name: Yessenia Luong : [id number] MR#: [id number] Case Date: 06/14/2015 Surgeon: Surgeon(s) and Role: [...] Office Visit Dermatology at [place] [address] [facility] [place] [address] Emiliano Salinas MD [address] [facility], BAKARI [place] [address] documented as of this encounter Procedures Procedure [...] intervals supplied above were not validated at [facility]. Results from pediatric patients should be interpreted [...] the following links into your internet browser. [email or web address] Blood specimen (specimen) 06/15/2015 10:36 AM EST 06/15/2015 10:49 AM EST Narrative Resulting Agency Comment Spec In Lab Carlee Montenegro MD CHEMISTRY ORDERABLES [facility] * Surgical Pathology Report (06/14/2015 5:25 PM EST) Final Diagnosis [id number] ? Location: [facility]; [facility]; The signing pathologist has (i) examined the [...] (R3) ?? yal 06/17/2015 10:21 AM EST [facility] BREAST STRUCTURE / Unknown 06/14/2015 5:25 PM EST 06/14/2015 5:25 PM EST BREAST STRUCTURE / Unknown 06/14/2015 5:25 PM EST 06/14/2015 5:25 PM EST Carlee Montenegro MD PATHOLOGY/CYTOLOGY O ELLA [facility] [place] [address] * Specimen to Pathology (surgical or derm) [...] infusing) 0915 (Given - Provider: Beth Peterson, JYOTI) traZODone (DESYREL) tablet 100 mg (CANCELED) 100 [...] MD) documented in this encounter Care Teams [employer] Computer Science Teacher Relationship Specialty Start Date End Date Chantell Mims APRN PCP - General 07/09/13 05/09/16 documented as of this encounter
--- OUTSIDE RECORDS SUMMARY | 2024-02-15 16:38 | XMS_ITS | Encounter Summary ---
Author Organization [facility] [place] [address] Care Team Providers Care Dispatcher Chief Coal Slurry Name Role Phone Franca Charles MD Primary Care Provider [phone] Encounter Details Date Type Department Care Team (Late st Contact Info) Description 06/29/2010 12:40 PM EST [place] [address] Liam Lee MD [facility] [place] [address] Social History Tobacco Use Types Packs/Day Years [...] 9:45 AM EDT Office Visit Dermatology at [place] [address] [place] [address] Emiliano Salinas MD [address], [place] [address] documented as of this encounter Visit Diagnoses Not on filedocumented in this encounter Care Teams Dispatcher Chief Coal Slurry Relationship Specialty Start Date End Date Franca Charles MD [address] [place] [address] PCP - General 05/02/10 01/30/11 documented as of this encounter
--- OUTSIDE RECORDS SUMMARY | 2024-02-15 16:38 | XMS_ITS | Encounter Summary ---
Author Organization [facility] [place] [address] Care Team Providers Care Motorized Squad Sergeant Name Role Phone Chantell Sharma APRN Primary Care Provider [phone] Reason for Visit * Auth/Cert Specialty Diagnoses / Procedures Referred By Veronica t Referred To Contact Diagnoses Hypertrophy of breast Procedures PRO REDUCTION OF LARGE BREAST PRO EXCISE EXCESS SKIN TISSUE, ABDOMEN PRO SUCT SARAH LIPECTOMY, TRUNK 11664 BILAT 79546 ALSO BILAT 85746 Referral ID Status Reason Start Date Expiration Date Visits Re quested Visits Authorized [id number] 1 1 Encounter Details Date Type Department Care Team (Late st Contact Info) Description 06/14/2015 4:01 PM EST Anesthesia Event [place] [address] Sunita Washington MD [facility] [place] [address] Sergey Munoz CRNA [facility] [place] [address] Anesthesia Record Procedure Summary Procedure Name Responsible [...] of clear yellow urine 06/14/15 0000 by Flroina Castanon RN Drain/Device Site 06/14/15; Left; lin [...] 1245; metacarpal vein left (top of hand); skrd-try-eichre catheter system; 18 gauge; BSmithRN; intradermal injection; [...] Washington MD - 06/15/2015 12:23 PM EST [facility] Department of Anesthesiology Post-procedure Note Patient: Yessenia Luong Procedure Summary Date Anesthesia Start Anesthesia Stop Room / Location 06/14/15 1601 1951 [facility] OR Procedure Diagnosis Surgeon Responsible Provider [...] Vaginal prolapse repair 04/11/2007 Dr. Castaneda, at [facility] ??? section 1979, 1981 Complciated by [...] consented to blood products. Plan discussed with STRATEGY EXECUTION CONSULTANT. PAT Staff Note documented in this encounter Plan of Treatment Upcoming Encounters Date Type Department Care Team (Late st Contact Info) Description 03/13/2024 9:45 AM EDT Office Visit Dermatology at [place] [address] [place] [address] Emiliano Salinas MD [address], [place] [address] documented as of this encounter Visit Diagnoses [...] mg documented in this encounter Care Teams Motorized Squad Sergeant Relationship Specialty Start Date End Date Chantell Sharma APRN PCP - General 07/09/13 05/09/16 documented as of this encounter
--- OUTSIDE RECORDS SUMMARY | 2024-02-15 16:38 | XMS_ITS | Encounter Summary ---
Author Organization [facility] [place] [address] Care Team Providers Care Brake Linings Coater Name Role Phone Franca Charles MD Primary Care Provider [phone] Encounter Details Date Type Department Care Team (Late st Contact Info) Description 06/29/2010 12:35 PM EST Office [place] [address] Leisa Lewis MD [facility] [place] [address] Social History Tobacco Use Types Packs/Day Years [...] 9:45 AM EDT Office Visit Dermatology at [place] [address] [place] [address] Emiliano Salinas MD [address], [place]AR[place] [address] documented as of this encounter Visit Diagnoses Not on filedocumented in this encounter Care Teams Brake Linings Coater Relationship Specialty Start Date End Date Franca Charles MD [address] [place] [address] PCP - General 05/02/10 01/30/11 documented as of this encounter
--- OUTSIDE RECORDS SUMMARY | 2024-02-15 16:38 | XMS_ITS | Encounter Summary ---
Author Organization [facility] [place] [address] Care Team Providers Care Looper Fixer Name Role Phone Chantell Mims APRN Primary Care Provider [phone] Reason for Visit * Auth/Cert Specialty Diagnoses / Procedures Referred By Veronica t Referred To Contact Diagnoses Hypertrophy of breast Procedures PRO REDUCTION OF LARGE BREAST PRO EXCISE EXCESS SKIN TISSUE, ABDOMEN PRO SUCT SARAH LIPECTOMY, TRUNK 99989 BILAT 36648 ALSO BILAT 23656 Referral ID Status Reason Start Date Expiration Date Visits Re quested Visits Authorized [id number] 1 1 Encounter Details Date Type Department Care Team (Late st Contact Info) Description 06/14/2015 1:56 PM EST - 06/14/2015 6:24 PM EST Surgery [place] [address] Carlee Montenegro MD [facility] [place] [address] REDUCTION MAMMOPLASTY, ADAM (WRVU 16.03) Social History [...] 1 tablet Refills: 0 NASONEX 50 mcg/actuation Tamarac 2 Peotone(s) each nostril, Nasal, Twice daily Generic drug: [...] APRN MANINDER [address] [facility] [address] Scheduled Appointments: The following appointments have been scheduled on your behalf: No future appointments. Outpatient Services/Studies: Referral to Home Health - at DISCHARGE Scheduling Instructions: DOCUMENTATION FOR VNA SERVICES (INCLUDING THOSE PATIENTS WITH MEDICARE COVERAGE REQUIRING HOME VNA SERVICES AND/OR HOSPICE SERVICES) PATIENT'S LOCATION: Yessenia Luong [address] [place] [id number] (home) Cell: Telephone Information: Child Care Cook's Name: self In discussion with the attending physician, it is certified that this patient is under their care and that they, or a Nurse Practitioner,Clinical Nurse specialist or Physician Customer Support Assistant who is working directly with them, had [...] for managing ADL's. HOME HEALTH CARE AGENCY: [facility] PHONE: [phone] FAX: [phone] Start of care: 06/16/2015 FOR MEDICARE ONLY: [...] obtained from this patient's PCP: CHANTELL MIMS, FIRE APPARATUS ENGINEER MANINDER [address] [place] [address] All A agencies which cover the area of patient's residence have been reviewed, either verbally ida writing, and patient/family have chosen the home health care agency noted A list of Home Health Agencies/DMEs which serve the geographic area which the patient resides or the geographic area requested by the patient/sales representative advertising was made available.Full Disclosure Statement provided, as appropriate. Patient requests referral to [facility]. Referral matched w agency/vendor and info provided via Law[employer] program Question Response Notes Agency name and contact information [facility] Patient location post discharge home What [...] good night sleep. Pain (short term and prison) ?? With any surgery there is some discomfort or pain. We will prescribe pain medication. Take as prescribed and only as needed. OK to take Tylenol, do not exceed 3 grams per day. OK to add Ibuprofen 48 hours after surgery. ?? We recommend taking an vvby-yea-Vzwmmqb stool softener, such as Colace (docusate) or [...] scheduling, please contact our administrative offices at [phone] ?? For clinical questions, please call our nurses at [phone] ?? Both offices are open Saturday thru Saturday 8a - 5p. With emergencies after hours, call the hospital mud analysis well logging operator at [phone] and ask for the Plastic Surgery Resident parts sales counterperson. Instructions for Abdominal Surgery During the first [...] from each drain. Call the clinic at [phone] and schedule an appointment with the nurses [...] Saturday 8 am to 5 pm Call [phone] On weekends or after hours: Call [phone] and ask the mud analysis well logging operator to page the Plastic Surgery Resident parts sales counterperson. Prescription Line: Call the line at [phone] from 8am-4pm Saturday through Saturday. Narcotic renewals [...] night sleep. Pain (short term and terminal manager) ?? With any surgery there is some discomfort or pain. We will prescribe pain medication. Take as prescribed and only as needed. OK to take Tylenol, do not exceed 3 grams per day. OK to add Ibuprofen 48 hours after surgery. ?? We recommend taking an yfeu-qiz-Qeirofj stool softener, such as Colace (docusate) or [...] scheduling, please contact our administrative offices at [phone] ?? For clinical questions, please call our nurses at [phone] ?? Both offices are open Saturday thru Saturday 8a - 5p. With emergencies after hours, call the hospital mud analysis well logging operator at [phone] and ask for the Plastic Surgery Resident parts sales counterperson. Instructions for Abdominal Surgery During the first [...] from each drain. Call the clinic at [phone] and schedule an appointment with the nurses [...] Saturday 8 am to 5 pm Call [phone] On weekends or after hours: Call [phone] and ask the mud analysis well logging operator to page the Plastic Surgery Resident parts sales counterperson. Prescription Line: Call the line at [phone] from 8am-4pm Saturday through Saturday. Narcotic renewals [...] mouth nightly. 12/06/2017 fluticasone (FLONASE) 50 mcg/actuation Peotone, Suspension 1 spray daily. 06/23/19 16 BUDESONIDE/FORMOTEROL [...] ORAL) 08/28/2010 12/06/2017 Mometasone (NASONEX) 50 mcg/Actuation Tamarac 2 Peotone(s) each nostril, Nasal, Twice daily 08/28/2010 09/03/2022 documented as of this encounter Progress Notes * Jyoti Ingram RN - 06/15/2015 4:43 PM EST I assumed care for this [atoient from [phone]. Patient discharged to home. IV removed, site [...] or the geographic area requested by the patient/sales representative advertising was made available.Full Disclosure Statementprovided, as appropriate. Patient requests referral to [facility]. Referral matched w agency/vendor and info provided via Cuedd * Wilman Jacobo MD - 06/14/2015 11:55 PM EST Post-Operative Progress Note Patient: Yessenia Luong s/p Surgery: 06/14/2015 [id number] Procedure(s) (LRB): REDUCTION MAMMOPLASTY, ADAM (Bilateral) ABDOMINOPLASTY (N/A) SUCTION ASSISTED LIPECTOMY,TRUNK (Bilateral) Surgeon(s) and Role: * Carlee Montenegro MD - Primary * Dudley Kramer MD: 3 Hr 37 Min 29 Sec * No complications entered in OR log * Short History: awakened from anesthesia, extubated and taken to the recovery room in a stable condition, having suffered no apparent untoward event. Patient location: [facility] Surgical Floor Post-op Consciousness awake, [...] Montenegro MD - 06/14/2015 8:03 PM EST [facility] Operative Note Patient Name: Yessenia Luong : [id number] MR#: [id number] Case Date: 06/14/2015 Surgeon: Surgeon(s) and Role: [...] 15-blade and the umbilical stalk developed with Harris scissor dissection. A 0-Vicryl suture was placed [...] Operative Note Patient Name: Yessenia Luong : [id number] MR#: [id number] Case Date: 06/14/2015 Surgeon: Surgeon(s) and Role: [...] 9:45 AM EDT Office Visit Dermatology at [place] [address] [place] [phone] Emiliano Salinas MD [address] [facility], [place] [address] documented as of this encounter Procedures Procedure [...] intervals supplied above were not validated at [facility]. Results from pediatric patients should be interpreted [...] the following links into your internet browser. [email or web address] Blood specimen (specimen) 06/15/2015 10:36 AM EST 06/15/2015 10:49 AM EST Narrative Resulting Agency Comment Spec In Lab Carlee Montenegro MD CHEMISTRY ORDERABLES [facility] * Surgical Pathology Report (06/14/2015 5:25 PM EST) Final Diagnosis [id number] ? Location: [facility]; [facility]; The signing pathologist has (i) examined [...] (R3) ?? yal 06/17/2015 10:21 AM EST [facility] BREAST STRUCTURE / Unknown 06/14/2015 5:25 PM EST 06/14/2015 5:25 PM EST BREAST STRUCTURE / Unknown 06/14/2015 5:25 PM EST 06/14/2015 5:25 PM EST Carlee Montenegro MD PATHOLOGY/CYTOLOGY O E[facility]A [facility] [place] [address] * Specimen to Pathology (surgical or derm) [...] Discontinued, Routine 2343 (Given - Provider: Rick Marsahll RN) Continuous Medication Order 06/13/2015 06/14/2015 06/15/2015 [...] MD) documented in this encounter Care Teams Looper Fixer Relationship Specialty Start Date End Date Chantell Mims APRN PCP - General 07/09/13 05/09/16 documented as of this encounter
--- OUTSIDE RECORDS SUMMARY | 2024-02-15 16:38 | XMS_ITS | Encounter Summary ---
Author Organization [facility] [place] [address] Care Team Providers Care Food Safety Director Name Role Phone Gareth Gramajo MD Primary Care Provider + Encounter Details Date Type Department Care Team (Late st Contact Info) Description 07/26/2011 Orders [place] [address] Sunita Mcknight MD [facility] [place] [address] THERESA (obstructive sleep apnea) (Primary Dx) Social [...] AM EDT Office Visit Dermatology at [place] [address] [place] [phone] Emiliano Salinas MD [address], [place] [address] documented as of this encounter Visit Diagnoses Diagnosis THERESA (obstructive sleep apnea)- Primary Obstructive sleep apnea (adult) (pediatric) documented in this encounter Care Teams Food Safety Director Relationship Specialty Start Date End Date Gareth Gramajo MD [address] [place] [address] PCP - General 04/24/11 07/08/13 documented as of this encounter
--- OUTSIDE RECORDS SUMMARY | 2024-02-15 16:38 | XMS_ITS | Encounter Summary ---
Author Organization [facility] Address [facility] [place] [address] Care Team Providers Care Retail Sales Merchandiser Name Role Phone Gareth Cunningham MD Primary Care Provider + Reason for Visit * Reason Comments Establish Care incont s/p repair Encounter Details Date Type Department Care Team (Late st Contact Info) Description 11/22/2011 9:15 AM EDT Office Visit Obstetrics [place] [address] Juan Alberto Harrell MD [facility] DR OBSTETRICS [place] [address] Urinary incontinence (Primary Dx) Discharge Disposition: Home [...] Female Pelvic Medicine and Reconstructive Surgery @ [facility] Patient Name: Yessenia Luong Patient [...] smear: S/p hysterectomy Last mammogram: Annually in [facility] Colonoscopy: Up to date Bone density: Up to date Past Medical History Diagnosis Date ??? 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 Rosacea 04/24/2011 ??? THERESA (obstructive sleep apnea) 11/21/2011 Past Surgical History Procedure Date ??? Vaginal prolapse repair 04/11/2007 Dr. Castaneda, at [facility] ??? section 1979, 1981 ??? Miguel and [...] MAGNESIUM ORAL) ??? Mometasone (NASONEX) 50 mcg/Actuation Chunky 2 [place](s) each nostril, Nasal, Twice daily ??? 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 [address] [place] [address] Emiliano Salinas MD [address], [place] [address] documented as of this encounter Procedures Procedure Name Priority Date/Time Associated Diagnosis Comments BLADDER SCANNER Routine 11/22/2011 Urinary incontinence POCT URINE DIPSTICK Routine 11/22/2011 Urinary incontinence documented in this encounter Results * Bladder Scanner (11/22/2011) Scan 6 Juan Alberto Harrell MD URO PROC W/O RFL ORD ERABLES * POCT urine dipstick (11/22/2011) Pathologist [facility] POC Sp [place] 1.01 1.002 - 1.030 POC pH, UA [...] incontinence documented in this encounter Care Teams Retail Sales Merchandiser Relationship Specialty Start Date End Date Gareth Cunningham MD [address] [place] [address] PCP - General 04/24/11 07/08/13 documented as of this encounter
--- OUTSIDE RECORDS SUMMARY | 2024-02-15 16:38 | XMS_ITS | Encounter Summary ---
Author Organization [facility] [place] [address] Care Team Providers Care Physician Relations Representative Name Role Phone Franca Charles MD Primary Care Provider [phone] Reason for Visit * Reason Onset Date Comments Anxiety 09/25/2010 Encounter Details Date Type Department Care Team (Late st Contact Info) Description 09/25/2010 Telephone [place] [address] [facility] [place] [address] Anxiety Social History Tobacco Use Types Packs/Day [...] reviewed her compliance card data download from [employer] for dates of 08/10/10 to 09/20/10, which [...] 9:45 AM EDT Office Visit Dermatology at [place] [address] [place] [address] Emiliano Salinas MD [address], [place] [address] documented as of this encounter Visit Diagnoses Not on filedocumented in this encounter Care Teams Physician Relations Representative Relationship Specialty Start Date End Date Franca Charles MD [address] [place] [address] PCP - General 05/02/10 01/30/11 documented as of this encounter
--- OUTSIDE RECORDS SUMMARY | 2024-02-15 16:38 | XMS_ITS | Encounter Summary ---
Author Organization [facility] [place] [address] Care Team Providers Care Turner And Former Automatic Name Role Phone Franca Charles MD Primary Care Provider [phone] Encounter Details Date Type Department Care Team (Late st Contact Info) Description 07/10/2010 8:30 AM EST [place] [address] Leisa Lewis MD [facility] [place] [address] Social History Tobacco Use Types Packs/Day Years [...] 9:45 AM EDT Office Visit Dermatology at [place] [address] [place] [address] Emiliano Salinas MD [address], BAKARI [place] [address] documented as of this encounter Visit Diagnoses Not on filedocumented in this encounter Care Teams Turner And Former Automatic Relationship Specialty Start Date End Date Franca Charles MD [address] [place] [address] PCP - General 05/02/10 01/30/11 documented as of this encounter
--- OUTSIDE RECORDS SUMMARY | 2024-02-15 16:38 | XMS_ITS | Encounter Summary ---
[place] [address] Care Team Providers Care Hydraulic Auto Jack Mechanic Name Role Phone Franca Charles MD Primary Care Provider [phone] Reason for Visit * Reason Onset Date Comments Other 01/01/2011 travel follow-up Encounter Details Date Type Department Care Team (Late st Contact Info) Description 01/01/2011 Telephone [place] [address] Danika Chin RN Other (travel follow-up) Social [...] fatigue, sleeping since back from trip to [place]; headache, lower stomach pain with constipation, bad breath; denies fever or other symptoms Did not seek care from PCP as instructed during phone conversation of 12/28/2010. Calling today to request another course of Cipro. A&P Yessenia traveled to [place] 11/27/2010 for three weeks, returning with diarrhea, [...] 9:45 AM EDT Office Visit Dermatology at [place] [address] [address] Emiliano Salinas MD [address], [place] [address] documented as of this encounter Visit Diagnoses Not on filedocumented in this encounter Care Teams Hydraulic Auto Jack Mechanic Relationship Specialty Start Date End Date Franca Charles MD [address] [place] [address] PCP - General 05/02/10 01/30/11 documented as of this encounter
--- OUTSIDE RECORDS SUMMARY | 2024-02-15 16:38 | XMS_ITS | Encounter Summary ---
Author Organization [facility] [place] [address] Care Team Providers Care Aircraft Restorer Name Role Phone Gareth Gramajo MD Primary Care Provider + Encounter Details Date Type Department Care Team (Late st Contact Info) Description 01/25/2012 Orders Only [place] [address] Satya James MD [address] [place] [address] Bilateral knee pain (Primary Dx) Social History [...] 9:45 AM EDT Office Visit Dermatology at [place] [address] [place] [address] Emiliano Salinas MD [address], [place] [address] documented as of this encounter Visit Diagnoses Diagnosis Bilateral knee pain- Primary Pain in joint, lower leg documented in this encounter Care Teams Aircraft Restorer Relationship Specialty Start Date End Date Gareth Gramajo MD [address] [place] [address] PCP - General 04/24/11 07/08/13 documented as of this encounter
--- OUTSIDE RECORDS SUMMARY | 2024-02-15 16:38 | XMS_ITS | Encounter Summary ---
Author Organization [facility] [place] [address] Care Team Providers Care Adjunct Instructor Of Women'S Studies Name Role Phone Gareth Gramajo MD Primary Care Provider + Encounter Details Date Type Department Care Team (Late st Contact Info) Description 12/10/2011 Notes Only Obstetrics [place] [phone] Lien Patel RN Social History Tobacco Use [...] 9:45 AM EDT Office Visit Dermatology at [place] [address] [place] [address] Emiliano Salinas MD [address] [facility], [place] [address] documented as of this encounter Visit Diagnoses Not on filedocumented in this encounter Care Teams Adjunct Instructor Of Women'S Studies Relationship Specialty Start Date End Date Gareth Gramajo MD [address] [place] [address] PCP - General 04/24/11 07/08/13 documented as of this encounter
--- OUTSIDE RECORDS SUMMARY | 2024-02-15 16:38 | XMS_ITS | Encounter Summary ---
[place] [address] Care Team Providers Care Property Developer Name Role Phone Gareth Gramajo MD Primary Care Provider + Encounter Details Date Type Department Care Team (Late st Contact Info) Description 01/10/2012 Orders Only Obstetrics [place] [address] Lien Patel, RN Social History Tobacco Use [...] 9:45 AM EDT Office Visit Dermatology at [place] [address] [place] [address] Emiliano Salinas MD [address], [place] [address] documented as of this encounter Visit Diagnoses Not on filedocumented in this encounter Care Teams Property Developer Relationship Specialty Start Date End Date Gareth Gramajo MD [address] [place] [address] PCP - General 04/24/11 07/08/13 documented as of this encounter
--- OUTSIDE RECORDS SUMMARY | 2024-02-15 16:38 | XMS_ITS | Encounter Summary ---
[place] [address] Care Team Providers Care Pattern Checker Name Role Phone Franca Charles MD Primary Care Provider [phone] Reason for Visit * Reason Onset Date Comments Other 12/28/2010 sick [place] Encounter Details Date Type Department Care Team (Late st Contact Info) Description 12/28/2010 Telephone [place] [address] Danika Chin RN Other (sick returning traveler) [...] of cipro for diarrhea after trip to [place]. See note on 12/25/2010. She no longer has diarrhea, now reporting constipation and stomach cramping. Remains afebrile; describes extreme fatigue. Contacted [facility] lab for results of stool testing; giardia [...] 9:45 AM EDT Office Visit Dermatology at [place] [address] [place] [address] Emiliano Salinas MD [address], [place] [address] documented as of this encounter Visit Diagnoses Not on filedocumented in this encounter Care Teams Pattern Checker Relationship Specialty Start Date End Date Franca Charles MD [address] [place] [address] PCP - General 05/02/10 01/30/11 documented as of this encounter
[2024-02-15] MEDS: SODIUM CHLORIDE 3% 500 ML 30 ML IV (17:45)
[2024-02-15 18:02] LABS: Anion Gap 9.4 mmol/L (3-11); BUN 14 mg/dL (7-18); CO2 25.6 mmol/L (21.0-32.0); CREATININE 0.6 mg/dL (0.55-1.02); Calcium 9.3 mg/dL (8.5-10.1); Chloride 87 mmol/L (98-107); Estimated GFR 93.55 (mL/min/1.73m2); Glucose 95 mg/dL (74-106); Potassium 3.3 mmol/L (3.5-5.1)
[2024-02-15 18:04] LABS: Sodium 122 mmol/L (136-145)
[2024-02-15 18:20] LABS: Troponin I 11 ng/L (4-51)
[2024-02-15 18:59] LABS: Bilirubin Negative (Negative); Blood Negative (Negative); Clarity Clear (Clear); Glucose Negative (Negative); Ketones 40 mg/dL (Negative); Leukocyte Esterase Negative (Negative); Nitrite Negative (Negative); Urobilinogen 0.2 mg/dL (Up to 0.2); pH 6.5 (5-8)
[2024-02-15 19:08] LABS: Creatinine,Urine 32.43 mg/dL; Sodium, Urine 24 mmol/L
[2024-02-15 19:15] LABS: *AMPHETAMINES SCREEN URINE Negative (Negative); *BARBITURATES SCREEN URINE Negative (Negative); *BENZODIAZEPINES SCREEN URINE Negative (Negative); Cannabinoids THC Negative (Negative); Cocaine Screen,Urine Negative (Negative); METHADONE URINE SCREEN Negative (Negative); OPIATES URINE SCREEN Negative (Negative); Tricyclic Antidepressants Negative (Negative)
[2024-02-15] MEDS: traZODone 50 MG TAB 150 MG PO (20:04)
[2024-02-15 22:08] LABS: BUN 12 mg/dL (7-18); CREATININE 0.7 mg/dL (0.55-1.02); Chloride 94 mmol/L (98-107); Estimated GFR 90.14 (mL/min/1.73m2); Glucose 93 mg/dL (74-106); Potassium 3.6 mmol/L (3.5-5.1); Sodium 128 mmol/L (136-145)
[2024-02-16] VITALS (39 sets, daily range): BP systolic 98–155; BP diastolic 51–100; PULSE 54–86; RESP 10–20; TEMP 36.2–36.4; O2SAT 90–96
[2024-02-16 01:14] LABS: Anion Gap 9.1 mmol/L (3-11); BUN 14 mg/dL (7-18); CO2 24.9 mmol/L (21.0-32.0); CREATININE 0.9 mg/dL (0.55-1.02); Calcium 8.9 mg/dL (8.5-10.1); Chloride 95 mmol/L (98-107); Estimated GFR 66.67 (mL/min/1.73m2); Glucose 91 mg/dL (74-106); Potassium 3.2 mmol/L (3.5-5.1); Sodium 129 mmol/L (136-145)
[2024-02-16] MEDS: Levothyroxine 50 MCG TAB PO (05:39)
[2024-02-16 06:10] LABS: HGB 11.4 g/dL (11.2-15.7); MCH 31.1 pg (27.0-33.0); MCHC 35.6 % (32.0-36.0); MCV 87 fL (80-95); MPV 8.5 fL (8.0-11.0); Platelet Count 391 10^3/uL (130-400); RBC 3.66 10^6/uL (3.93-5.22); RDW 11.9 % (11.7-14.6); RDW-SD 37.8 fL; WBC 6.35 10^3/uL (4.4-10.8)
[2024-02-16 06:24] LABS: Anion Gap 9.6 mmol/L (3-11); BUN 13 mg/dL (7-18); CO2 25.4 mmol/L (21.0-32.0); CREATININE 0.9 mg/dL (0.55-1.02); Calcium 9.2 mg/dL (8.5-10.1); Chloride 96 mmol/L (98-107); Estimated GFR 66.67 (mL/min/1.73m2); Glucose 88 mg/dL (74-106); Potassium 3.2 mmol/L (3.5-5.1); Sodium 131 mmol/L (136-145)
[2024-02-16] MEDS: Acetaminophen 325 MG TAB PO ×3 (07:37→19:40)
[2024-02-16] MEDS: Loratidine 10 MG TAB PO (07:37)
[2024-02-16] MEDS: Enoxaparin 40 MG/0.4 ML SYR SC (07:37)
[2024-02-16 09:44] LABS: Anion Gap 7.2 mmol/L (3-11); BUN 15 mg/dL (7-18); CO2 25.8 mmol/L (21.0-32.0); CREATININE 0.9 mg/dL (0.55-1.02); Calcium 9.3 mg/dL (8.5-10.1); Chloride 96 mmol/L (98-107); Estimated GFR 66.67 (mL/min/1.73m2); Glucose 131 mg/dL (74-106); Potassium 3.2 mmol/L (3.5-5.1); Sodium 129 mmol/L (136-145)
--- NOTE | 2024-02-16 10:10 | INITIAL_ITS ---
Date of service: 02/16/24 Time of Service: 10:11 Care Management Initial Assmt Initial Assessment Reason for Hospitalization: acute hyponatremia Functional Status/Living Situation Patient Presentation: Yessenia was sitting up in bed when CM met with her. She was pleasant and easily engaged. Yessenia stated she is feeling much better, but will not be going home until tomorrow. She stated that her levels were off from being sick with a stomach bug. Town of Residence: [facility] Resides with: Alone (Yessenia is ) Significant Other/Family: Local Caregiver/Guardian: Yessenia has 2 children. Yessenia's daughter, Janet lives local, and is her main support. A son lives in [place]. 4 grandchildren. Natural Supports: Yessenia's daughter is her main support. 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 Enjoys TV. Medications Medication Management: No Issues/Barriers identified Physical Functioning/Mobility Assistive Device: none Advance Directives Advance Directives: Do you have an Advance Directive: Y 09/11/23 13:59 AD On File at [facility]: Y 09/11/23 13:59 Date Asked 03/16/19 09/11/23 13:59 AD Date Reviewed 01/24/24 01/24/24 14:53 COLST On File at [facility] COLST Date Scanned Comment: Yessenia has an advanced directive dated in 2014, with an old PCP listed. Yessenia was not interested in updating at this time, but was encouraged to speak to her PCP about updating the AD. Code Status Resuscitation Status Full Code Insurance Coverage/Financial Issues Insurance: Medicare [place] Blue Advantage Financial Issues: denies Care Team Visit Care Team Role Provider Type Dana Cedillo DO Primary Care Provider OSTEOPATHIC DOCTOR Gaudencio Daley MD Emergency Provider [facility] STAFF PHYSICIAN Dudley Heredia MD Admit Provider [facility] STAFF PHYSICIAN Attending Provider Discharge Potential Discharge Needs: PCP F/U Appt Anticipated Barriers to Discharge: None Identified Patient/Family Education Needs: Review discharge instructions, discuss Ask Me Three Transportation: Private vehicle Plan: Anticipate that Yessenia will be discharged tomorrow with no new services. She will transport home in private vehicle with her daughter, Janet. [facility] All Active Problems Metabolic encephalopathy (Acute) Hypokalemia (Acute) Hyponatremia (Acute) Acute hyponatremia (Acute) Hypercalciuria (Acute ~01/2024) 01/22/24 Endocrinology Metatarsalgia of both feet (Acute) Hallux rigidus of right foot (Acute) Hallux rigidus, left foot (Acute) Osteopenia (Acute 12/27/22) DEXA at [facility] Chronic low back pain (Chronic) 10/24/22 Steroid injection Mixed anxiety and depressive disorder (Acute) Arthritis of carpometacarpal (CMC) joint of right thumb (Acute) 11/07/21 & 12/29/21 Arthroplasty at [facility] Chronic rhinitis (Acute) Imbalance (Acute) History of vertigo (Acute) Fracture of second metatarsal bone of left foot (Acute ~05/16/23) Leg length discrepancy (Acute) Neuroma of third interspace of left foot (Acute) Neuroma of third interspace of right foot (Acute) Achilles tendon contracture, bilateral (Acute) Pes planus of both feet (Acute) Plantar fasciitis of left foot (Acute) Mild anemia (Acute) Wears hearing aid in both ears (Acute) Venous incompetence (Acute) Symptomatic varicose veins of both lower extremities (Acute) Urge incontinence (Acute) Atrophic vaginitis (Acute) Familial hypercholesteremia (Acute) Otorrhea (Acute) Sleep apnea (Acute) Hypothyroid (Chronic) Allergic rhinitis due to food (Acute 10/12/13) Allergic rhinitis due to animal (cat) (dog) hair and dander (Acute 05/04/13) Abnormal auditory perception (Acute 09/06/14) Allergic rhinitis due to pollen (Acute 05/04/13) Chronic otitis media (Acute 12/19/15) Chronic otorrhea of both ears (Acute 10/08/16) Chronic sinusitis (Acute 05/17/14) Conductive hearing loss (Acute 12/19/15) Eustachian tube anomaly (Acute 05/17/14) Nasal congestion (Acute 09/06/14) Obstructive sleep apnea (Acute 05/17/14) Sensorineural hearing loss, bilateral (Acute 04/04/15) Wheezing (Acute 05/04/13) Vitamin D deficiency disease (Acute) Fatigue (Acute) Chronic diarrhea (Acute) Urinary incontinence (Acute) Heart murmur, systolic (Acute) Medical History Lyme disease (2020) Allergic rhinitis (05/04/13) Perforation of left tympanic membrane History of endometriosis Encounter for screening colonoscopy Allergic fungal sinusitis (05/04/13) Surgical History H/O abdominoplasty age 59 Status post breast reduction age 59 H/O nasal septoplasty age 39 H/O hysterectomy for benign disease History of knee replacement R History of hysterectomy History of section History of tonsillectomy History of appendectomy History of colonoscopy Family History Brother Anxiety Depression Niece Depression Nephew Depression Mother Heart disease Father Heart disease Parkinson disease Sister Heart disease 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 Pets and animals: No Do you think of yourself as: straight/heterosexual Current gender identity: female What is your relationship status?: How often do you talk on the phone with friends or family?: three or more times per week How often do you get together with friends or relatives?: three or more times per week Do you belong to any clubs or organized social groups?: yes Panel score (0-1 are the most socially isolated patients): 2 What type of physical activity do you participate in: walking and swimming Duration: 15-30 minutes/day Frequency: 3-4 times per week Jodie/Catholic: Muslim Agree to transfusion: No Seatbelt use: always Helmet use: Yes Drive intox or ride w/intox truck driver: No Do you feel safe at home: Yes Do you feel safe in your relationship?: Yes Readmission Within the Past 30 Days Yes or No: No SDOH(Care Management) Screening Will the Patient Participate in the Screening?: Yes Do you worry about having a steady place to live?: no Problems where you live: no known problems In the past 12 months, have you had to go without electric, gas, oil or water in your home?: no Have you or anyone in your house had to go without enough food to eat?: no Has lack of transportation kept you from medical appointments or from doing things needed for daily living?: no Has anyone in your support network made you feel unsafe for any reason?: no Interventions Care Management Referrals: [facility] ([facility] sent referral to [facility] for MOW. )
--- NOTE | 2024-02-16 13:05 | PGE_ITS ---
Date of Service Date of service: 02/16/24 Time of Service: 13:05 Assessment and Plan Assessment and plan (1) Hyponatremia: Status: Acute Assessment and plan: -appears to be secondary to GI losses given reports of recent GI illness -urine Na, Cr, Osm not ordered prior to admisitration of hypertonic saline, but will still f/u results -given patient was also hypertensive on admission, this appears to be either euvolemic or hypervolemic severe symptomatic hypernatremia with an initial Na of 119 -was actually put on 30ml/hr 3% saline on ED which was turned off after repeat N a went up to 128 -Na peaked at 131 this am but is now back down to 129 and patient is without neurologic findings and has complete resolution of her encephalopathy -will monitor electrolyes this afternoon and tomorrow morning with plan to DC tomorrow AM (2) Metabolic encephalopathy: Status: Acute Assessment and plan: -secondary to severe symptomatic hyponatremia as noted above -resolved (3) Hypokalemia: Status: Acute Assessment and plan: -K in ED 2.8 -ordered for 40mEq IV -K up to 3.2 on AM 02/15, ordered for additional 40mEq -f/u AM BMP (4) Mixed anxiety and depressive disorder: Status: Acute Assessment and plan: -hold home diazepam while patient is encephalopathic (5) Hypothyroid: Status: Chronic Assessment and plan: -continue home synthroid -f/u TSH Subjective Subjective Interval history since last seen: Patient states that she is feeling much better today. She understands the plan to monitor her electrolytes for one more day and that she may be discharged tomorrow, Saturday02/17/2024 if she continues to improve. Exam Narrative Exam Narrative: well appearing female laying in bed in no acute distress, AOx4, heart RRR, lungs CTAB, abdomen soft, non-tender, non-distended Objective Last Vital Signs Temp 99.0 F 02/15/24 20:01 Pulse 54 L 02/16/24 07:01 Resp 17 02/16/24 07:01 BP 123/66 02/16/24 07:01 Pulse Ox 90 L 02/16/24 07:01 Laboratory Results - last 24 hr 02/15/24 02/15/24 02/15/24 12:13 12:34 13:22 WBC RBC Hgb Hct MCV MCH MCHC RDW Plt Count MPV Sodium 119 L* Potassium 2.8 L* Chloride 83 L Carbon Dioxide 24.1 Anion Gap 11.9 H BUN 16 Creatinine 0.8 Est GFR (CKD-EPI 2020) 76.79 Glucose 127 H Calcium 9.3 Magnesium 1.8 Total Bilirubin 0.79 AST 30 ALT 30 Alkaline Phosphatase 61 Troponin I High Sens 9 NT-Pro-B Natriuret Pep 127 Total Protein 7.6 Albumin 4.0 Lipase 34 TSH 2.22 Urine Color Urine Clarity Urine pH Ur Specific [place] Urine Protein Urine Ketones Urine Blood Urine Nitrite Urine Bilirubin Urine Urobilinogen Ur Leukocyte Esterase Ur Random Creatinine Ur Random Sodium Urine Glucose Salicylates < 2.8 Urine Opiates Screen Urine Methadone Screen Acetaminophen < 2 Ur Barbiturates Screen Ur Tricyclics Screen Ur Amphetamines Screen U Benzodiazepines Scrn Urine Cocaine Screen Ur THC Screen Ethyl Alcohol < 3.0 COVID-19 Source Nasopharynx SARS-CoV-2 (PCR) Negative Influenza Type A (PCR) Negative Influenza Type B (PCR) Negative RSV (PCR) Negative 02/15/24 02/15/24 02/15/24 14:58 17:35 18:30 WBC RBC Hgb Hct MCV MCH MCHC RDW Plt Count MPV Sodium 122 L* Potassium 3.3 L Chloride 87 L Carbon Dioxide 25.6 Anion Gap 9.4 BUN 14 Creatinine 0.6 Est GFR (CKD-EPI 2020) 93.55 Glucose 95 Calcium 9.3 Magnesium Total Bilirubin AST ALT Alkaline Phosphatase Troponin I High Sens 14 11 NT-Pro-B Natriuret Pep Total Protein Albumin Lipase TSH Urine Color Yellow Urine Clarity Clear Urine pH 6.5 Ur Specific [place] 1.010 Urine Protein Negative Urine Ketones 40 H Urine Blood Negative Urine Nitrite Negative Urine Bilirubin Negative Urine Urobilinogen 0.2 Ur Leukocyte Esterase Negative Ur Random Creatinine 32.43 Ur Random Sodium 24 Urine Glucose Negative Salicylates Urine Opiates Screen Negative Urine Methadone Screen Negative Acetaminophen Ur Barbiturates Screen Negative Ur Tricyclics Screen Negative Ur Amphetamines Screen Negative U Benzodiazepines Scrn Negative Urine Cocaine Screen Negative Ur THC Screen Negative Ethyl Alcohol COVID-19 Source SARS-CoV-2 (PCR) Influenza Type A (PCR) Influenza Type B (PCR) RSV (PCR) 02/15/24 02/16/24 02/16/24 21:47 00:55 05:30 WBC 6.35 RBC 3.66 L Hgb 11.4 Hct 32.0 L MCV 87 MCH 31.1 MCHC 35.6 RDW 11.9 Plt Count 391 MPV 8.5 Sodium 128 L 129 L 131 L Potassium 3.6 3.2 L 3.2 L Chloride 94 L 95 L 96 L Carbon Dioxide 25.0 24.9 25.4 Anion Gap 9.0 9.1 9.6 BUN 12 14 13 Creatinine 0.7 0.9 0.9 Est GFR (CKD-EPI 2020) 90.14 66.67 66.67 Glucose 93 91 88 Calcium 9.0 8.9 9.2 Magnesium Total Bilirubin AST ALT Alkaline Phosphatase Troponin I High Sens NT-Pro-B Natriuret Pep Total Protein Albumin Lipase TSH Urine Color Urine Clarity Urine pH Ur Specific [place] Urine Protein Urine Ketones Urine Blood Urine Nitrite Urine Bilirubin Urine Urobilinogen Ur Leukocyte Esterase Ur Random Creatinine Ur Random Sodium Urine Glucose Salicylates Urine Opiates Screen Urine Methadone Screen Acetaminophen Ur Barbiturates Screen Ur Tricyclics Screen Ur Amphetamines Screen U Benzodiazepines Scrn Urine Cocaine Screen Ur THC Screen Ethyl Alcohol COVID-19 Source SARS-CoV-2 (PCR) Influenza Type A (PCR) Influenza Type B (PCR) RSV (PCR) 02/16/24 09:27 WBC RBC Hgb Hct MCV MCH MCHC RDW Plt Count MPV Sodium 129 L Potassium 3.2 L Chloride 96 L Carbon Dioxide 25.8 Anion Gap 7.2 BUN 15 Creatinine 0.9 Est GFR (CKD-EPI 2020) 66.67 Glucose 131 H Calcium 9.3 Magnesium Total Bilirubin AST ALT Alkaline Phosphatase Troponin I High Sens NT-Pro-B Natriuret Pep Total Protein Albumin Lipase TSH Urine Color Urine Clarity Urine pH Ur Specific [place] Urine Protein Urine Ketones Urine Blood Urine Nitrite Urine Bilirubin Urine Urobilinogen Ur Leukocyte Esterase Ur Random Creatinine Ur Random Sodium Urine Glucose Salicylates Urine Opiates Screen Urine Methadone Screen Acetaminophen Ur Barbiturates Screen Ur Tricyclics Screen Ur Amphetamines Screen U Benzodiazepines Scrn Urine Cocaine Screen Ur THC Screen Ethyl Alcohol COVID-19 Source SARS-CoV-2 (PCR) Influenza Type A (PCR) Influenza Type B (PCR) RSV (PCR) Time Spent with Patient Time Spent with Patient: >50 minutes Time was spent: preparing to see the patient(eg.review tests), obtaining and/or reviewing separately otained hiistory, ordering medications,tests, procedures, referring, communicating with other health home care nurse, indepentently interpreting results, counseling the patient and care coordination
[2024-02-16 13:38] LABS: Anion Gap 9.5 mmol/L (3-11); BUN 17 mg/dL (7-18); CO2 26.5 mmol/L (21.0-32.0); CREATININE 1.1 mg/dL (0.55-1.02); Calcium 8.8 mg/dL (8.5-10.1); Chloride 96 mmol/L (98-107); Glucose 142 mg/dL (74-106); Potassium 3.2 mmol/L (3.5-5.1); Sodium 132 mmol/L (136-145)
[2024-02-16] MEDS: Normal Saline 500 ML 30 ML IV (13:57)
[2024-02-16] MEDS: POTASSIUM CHLORIDE 10 MEQ/100 ML BAG 100 MEQ IVINF ×4 (13:58→16:45)
[2024-02-16 16:23] LABS: Osmolality, Urine 290 mOsm/kg (150-1150)
[2024-02-16 18:26] LABS: Anion Gap 5.8 mmol/L (3-11); BUN 18 mg/dL (7-18); CO2 26.2 mmol/L (21.0-32.0); CREATININE 1.2 mg/dL (0.55-1.02); Calcium 9.1 mg/dL (8.5-10.1); Chloride 97 mmol/L (98-107); Estimated GFR 47.21 (mL/min/1.73m2); Glucose 139 mg/dL (74-106); Potassium 4.1 mmol/L (3.5-5.1); Sodium 129 mmol/L (136-145)
[2024-02-16] MEDS: traZODone 50 MG TAB 150 MG PO (19:40)
[2024-02-17] VITALS (16 sets, daily range): BP systolic 104–130; BP diastolic 54–92; PULSE 53–97; RESP 12–22; TEMP 36.2–36.5; O2SAT 89–96
[2024-02-17] MEDS: Acetaminophen 325 MG TAB PO (07:00)
[2024-02-17] MEDS: Levothyroxine 50 MCG TAB PO (07:00)
--- NOTE | 2024-02-17 07:57 | RESPIRATORY ---
Spoke with patient about THERESA diagnosis and she advised she has a home unit through [employer] [employer] [facility] but doesn't feel like she needs it while here in the hospital (She is unsure of her settings). I told her if she changes her mind and would like us to reach out to someone to bring that in for her to let us know.
[2024-02-17 09:14] LABS: Anion Gap 7.8 mmol/L (3-11); BUN 22 mg/dL (7-18); CO2 26.2 mmol/L (21.0-32.0); CREATININE 1.1 mg/dL (0.55-1.02); Calcium 9.2 mg/dL (8.5-10.1); Chloride 99 mmol/L (98-107); Glucose 207 mg/dL (74-106); Potassium 3.7 mmol/L (3.5-5.1); Sodium 133 mmol/L (136-145)
[2024-02-17] MEDS: Loratidine 10 MG TAB PO (09:19)
[2024-02-17] MEDS: Enoxaparin 40 MG/0.4 ML SYR SC (09:19)
--- NOTE | 2024-02-17 11:40 | PGE_ITS ---
Date of Service Date of service: 02/17/24 Time of Service: 11:40 Assessment and Plan Assessment and plan (1) Hyponatremia: Status: Acute Assessment and plan: -appears to be secondary to GI losses given reports of recent GI illness -urine Na, Cr, Osm not ordered prior to admisitration of hypertonic saline, but will still f/u results -given patient was also hypertensive on admission, this appears to be either euvolemic or hypervolemic severe symptomatic hyponatremia with an initial Na of 119 -was actually put on 30ml/hr 3% saline on ED which was turned off after repeat Na went up to 128 Na has fluctuated over the past 24h running between 129 to 133. she does not have typical symptoms of CPM however, I am concerned over symptoms of ovewhelming tiredness and headache. will repeat her BMP this afternoon and treat her headache, if her sodium is continuing to rise then may need some hypotonic fluids to correct, if her headache resolves and her sodium is not continuing to rise significantly then she may be dc home this afternoon, otherwise if she still has headaches then will proceed w/ brain MRI (2) Metabolic encephalopathy: Status: Acute Assessment and plan: -secondary to severe symptomatic hyponatremia as noted above -resolved (3) Hypokalemia: Status: Acute Assessment and plan: K 3.7 this morning and was 4.1 yesterday so appears to be resolved but will monitor (4) Mixed anxiety and depressive disorder: Status: Acute Assessment and plan: no longer encephalopathic however will continue to hold her diazepam as she is feeling overwhelmingly tired. (5) Hypothyroid: Status: Chronic Assessment and plan: -continue home synthroid TSH is 2.22 which is normal Qualifiers: Hypothyroidism type: acquired Qualified Code(s): E03.9 - Hypothyroidism, unspecified Subjective Subjective Interval history since last seen: Patient complaining of fatigue, very tired feeling and also awoke w/ headache this morning which has not resolved w/ Tylenol. She denies any dizziness and no further diarrhea or vomiting since admission. She has been out of bed and ambulated around the ICU for her nurse w/out loss of balance. She denies any urinary incontinence. Exam Narrative Exam Narrative: Patient is alert and oriented x 3 normal speech pattern full extraocular motion intact no focal motor or sensory deficits to light touch and no muscle weakness with manual muscle testing of her upper or lower extremities. Objective Last Vital Signs Temp 36.5 C 02/17/24 08:01 Pulse 75 02/17/24 09:33 Resp 22 02/17/24 09:33 BP 104/92 H 02/17/24 09:33 Pulse Ox 93 02/17/24 09:33 Laboratory Results - last 24 hr 02/15/24 02/16/24 02/16/24 18:30 13:20 18:05 Sodium 132 L 129 L Potassium 3.2 L 4.1 Chloride 96 L 97 L Carbon Dioxide 26.5 26.2 Anion Gap 9.5 5.8 BUN 17 18 Creatinine 1.1 H 1.2 H Est GFR (CKD-EPI 2020) 52.40 47.21 Glucose 142 H 139 H Calcium 8.8 9.1 Urine Osmolality 290 02/17/24 08:50 Sodium 133 L Potassium 3.7 Chloride 99 Carbon Dioxide 26.2 Anion Gap 7.8 BUN 22 H Creatinine 1.1 H Est GFR (CKD-EPI 2020) 52.40 Glucose 207 H Calcium 9.2 Urine Osmolality Time Spent with Patient Time Spent with Patient: 35-49 minutes Time was spent: preparing to see the patient(eg.review tests), ordering medications,tests, procedures, referring, communicating with other health assurance services manager health care (discussed w/ nursing, CM and with Dr. Heredia), indepentently interpreting results, counseling the patient and care coordination
[2024-02-17] MEDS: Ketorolac 30 MG/ML VIAL IVP (11:57)
[2024-02-17 13:03] LABS: Anion Gap 7.9 mmol/L (3-11); BUN 20 mg/dL (7-18); CO2 25.1 mmol/L (21.0-32.0); CREATININE 1.1 mg/dL (0.55-1.02); Calcium 9.1 mg/dL (8.5-10.1); Chloride 100 mmol/L (98-107); Glucose 146 mg/dL (74-106); Potassium 4.5 mmol/L (3.5-5.1); Sodium 133 mmol/L (136-145)
--- NOTE | 2024-02-17 13:23 | PHA.REVIEW2 ---
Pharmacy Admission Review Admission Clinical Review Admission Pharmacy Review: Metabolic encephalopathy (Acute) Hypokalemia (Acute) Hyponatremia (Acute) Acute hyponatremia (Acute) Mixed anxiety and depressive disorder (Acute) venom-honey bee (bee venom (honey bee)) Allergy (Severe, Verified 12/16/23 15:24) Anaphylaxsis fenofibrate Allergy (Mild, Verified 12/16/23 15:24) Other (See Comment) amoxicillin trihydrate (From Augmentin) Allergy (Verified 12/16/23 15:24) Other (See Comment) atorvastatin calcium (From Lipitor) Allergy (Verified 12/16/23 15:24) Other (See Comment) celecoxib (From Celebrex) Allergy (Verified 12/16/23 15:24) Other (See Comment) diclofenac sodium (From Voltaren) Allergy (Verified 12/16/23 15:24) Other (See Comment) potassium clavulanate (From Augmentin) Allergy (Verified 12/16/23 15:24) Other (See Comment) rosuvastatin calcium (From Crestor) Allergy (Verified 12/16/23 15:24) Other (See Comment) simvastatin (From Zocor) Allergy (Verified 12/16/23 15:24) Other (See Comment) Sulfa (Sulfonamide Antibiotics) Allergy (Verified 12/16/23 15:24) Other (See Comment) sulfamethoxazole (From Bactrim) Allergy (Verified 12/16/23 15:24) Other (See Comment) trimethoprim (From Bactrim) Allergy (Verified 12/16/23 15:24) Other (See Comment) morphine Adverse Reaction (Intermediate, Verified 12/16/23 15:24) Nausea oxycodone HCl (From OxyContin) Adverse Reaction (Intermediate, Verified 12/16/23 15:24) Nausea Penicillins Adverse Reaction (Intermediate, Verified 12/16/23 15:24) Nausea Resuscitation Status Full Code Height 5 ft 2 in Weight 75.2 kg Comments Comments/Follow Ups: If patient is not discharged today, reach out regarding orders for missing home meds Pharmacy Admission Review Renal Dosing Renal Dosing: BUN 20 mg/dL (7-18) H 02/17/24 12:40 Creatinine 1.1 mg/dL (0.55-1.02) H 02/17/24 12:40 Medications needing adjustments: Reviewed (CrCl 41.91 mL/min) List of meds needing interventions: Current medications are okay Anticoagulation Anticoagulation: Hgb 11.4 g/dL (11.2-15.7) 02/16/24 05:30 Hct 32.0 % (36.0-46.0) L 02/16/24 05:30 Plt Count 391 10^3/uL (130-400) 02/16/24 05:30 INR 1.1 (0.9-1.1) 02/15/24 12:13 Creatinine 1.1 mg/dL (0.55-1.02) H 02/17/24 12:40 DVT Prophylaxis: Reviewed Medications: Enoxaparin (40mg daily) Relevant Labs Relevant Labs: Sodium 133 mmol/L (136-145) L 02/17/24 12:40 Potassium 4.5 mmol/L (3.5-5.1) 02/17/24 12:40 Chloride 100 mmol/L (98-107) 02/17/24 12:40 Magnesium 1.8 mg/dL (1.8-2.4) 02/15/24 12:13 Electrolytes, C-Reactive P, ESR: Reviewed (Na 133 - repeat pending, glucose 207 todat at 0850 and 146 at 1240) Cardiac Review Cardiac Review: NT-Pro-B Natriuret Pep 127 pg/mL (<300) 02/15/24 12:13 Blood Pressure 104/92 0933 Blood Pressure 104/92 0929 Blood Pressure 104/92 0801 Blood Pressure 130/66 0601 Blood Pressure 128/62 0539 BP, HR, EF%: Reviewed (HR WNL) QTc Review QTc: Reviewed (473 from 02/15/24) IV to PO Switch IV Medications: Reviewed Home Meds Home Med List reviewed: Intervened Relevent Home Meds Not ordered & why?: Called patient directly to perform med rec as there were quite a few meds recently filled but not on home med list Meds that were added: Nexletol, estradiol patch (sundays), azithromycin, fish oil and doxycycline Changed: patient takes trazodone 150mg to 200mg PRN at bedtime (changed from 150mg) Removed: Glory Reached out to provider to notify them of changes to home med list. Waiting to hear back. Per patient does not take atovaquone, Vascepa or HCTZ - not on home med list but were filled within the last 2 months Current Meds Current Medication Order Review: Reviewed Comments Comments/Follow Ups: If patient is not discharged today, reach out regarding orders for missing home meds
--- NOTE | 2024-02-17 14:44 | PDOC.CMDIS ---
Date of service: 02/17/24 Time of Service: 14:45 LACE Index Scoring Tool Questions: Length of Stay (in days): 2 Was the patient admitted via the E.D.?: Yes E.D. Visits: 1 Answers: Total Score: 6 Risk of Readmission: Low Risk Care Management Discharge Plan Reason for Hospitalization: acute hyponatremia Discharge Plan: Yessenia is discharged home today with no new orders for services or meds, but needs repeat labs in 3 days. Yessenia is aware of this. Yessenia will follow up with her PCP on 02/23 and continue per plan discharge plan as prescribed. Yessenia will transport home with her daughter. Per Yessenia's request, discharge summary was sent by YOKO to Dr. Chapa at [facility] in [place]. Patient/Family Education Needs: Review of discharge instructions, activity, limitations, follow up plan and ask me three SDOH Health Related Social Needs: No Data to Display Health related social needs details: denies Care Management Referrals: JUNE (CM sent referral to [facility] for MOW. )
--- NOTE | 2024-02-17 14:46 | W.PM.DS.N ---
Date of service: 02/17/24 Time of Service: 14:46 DS: Diagnosis Discharge Diagnosis (1) Hyponatremia: Status: Resolved Asessment and Plan: serum sodium was 119 and chloride 83 on admission and corrected to 122 after 100 mL 3% saline and 1 liter of NS. overnight corrected to 129 and at discharge was 133 and stable. Etiology believed to be combination of diarrhea and vomiting w/ fluid and electrolyte loss w/ electrolyte loss greater than her fluid loss. (2) Metabolic encephalopathy: Status: Resolved Asessment and Plan: acute encephalopathy resolved w/ resolution of her hyponatremia (3) Hypokalemia: Status: Resolved Asessment and Plan: K 2.8 on admission, corrected w/ oral and iv replacement, came up to 3.2 overnight and was 4.5 at time of her discharge (4) Mixed anxiety and depressive disorder: Status: Acute (5) Hypothyroid: Status: Chronic Discharge Plan Disposition Patient Disposition: Home Condition: Improving Discharge Details Reason For Visit: Symptomatic Severe Hyponatremia Admit Date/Time: 02/15/24 14:36 Admit Provider: Dudley Heredia Attending Provider: Dudley Heredia Primary Care Provider: Dana Cedillo Hospital Course Hospital Course: 74-year-old female with history anxiety disorder hypothyroidism as well as previous Lyme disease currently followed by a provider in [place] and being treated chronically with antibiotics for long Lyme disease. She reportedly presented to her PCP office earlier in the morning on the day of admission found to have acute confusion speech difficulties initial concern was raised that she may have had a stroke was sent to the emergency department. She apparently had recent gastroenteritis with nausea vomiting and diarrhea for the last few days prior to admission. On arrival she had no fever no abdominal pain chest pain or dyspnea and was not vomiting at the time of admission however workup included a CT scan of her head which showed no acute intracranial process chest x-ray showed no acute pulmonary findings and abdominal pelvic CT showed no acute abdominopelvic process. She does have a cystic lesion in her pancreas measuring 3.6 x 2.1 cm which should require follow-up nonemergent MRI scan as an outpatient. She also has colonic diverticulosis without diverticulitis and has cholelithiasis with no acute biliary ductal dilatation. Laboratory workup however revealed her to have severe hyponatremia with serum sodium as low as 119 and severe hypokalemia with a potassium of 2.8 and chlorides of 83 with a normal BUN and creatinine 16 and 0.8. LFTs calcium and magnesium all within normal limits ammonia level was normal at 19 high-sensitivity troponins were normal x 3 sets proBNP was normal at 127 TSH was normal at 2.22 lipase was normal at 34. She was given 100 mL of hypertonic 3% saline in the emergency department. Her initial sodium was 119 at 12:13 PM on 02/15/2024 the next level was checked at 1735 had risen to 122. However instead of stopping the hypertonic saline another 500 mL was given at 30 mL an hour and infused overnight and completed on 02/16/2024. Repeat serum sodium was obtained at 2147 on 02/15/2024 and was found to be 128 and another level at 12:55 AM on 02/16/2024 was 129 and serial levels were checked throughout the day on 02/16/2024 and vary between 129 and 132. No further IV fluids were given and repeat levels were checked throughout the night and into the next morning. On the day of discharge her serum sodium remains stable at 133. Patient's acute encephalopathy resolved with correction of her hyponatremia. On the day of discharge her serum sodium was 133 and her potassium was 4.5 with a chloride of 100 carbon DEXA 25.1 anion gap was 7.9 with a BUN of 20 creatinine 1.1. On the day of discharge she had a mild headache that responded to ketorolac. She had no visual disturbances no paresthesias or paraparesis, no bowel or bladder incontinence. Rhythm remains in sinus rhythm. Patient was given information on hyponatremia and dehydration and the need for balanced electrolyte replacement in the setting of hypovolemia and hyponatremia and hypokalemia. Patient is to report to the emergency department she has acute confusion or nausea or vomiting or paresthesias. Repeat BMP is recommended in 3 days and she has to follow-up with her primary care provider within the next week. Home Meds and New Rx's Prescriptions: Continued trazodone 50 mg tablet 50 mg PO HS PRN Patient Comments: WITH 150MG TABLET diazepam [Valium] 2 mg tablet 2 mg PO DAILY PRN scopolamine base 1 mg over 3 days patch 3 day 1 patch transdermal Q3D PRN (Reason: motion sickness) Qty: 10 0RF loratadine [Claritin] 10 mg tablet 10 mg PO DAILY calcium carbonate-vitamin D3 PO levothyroxine 50 mcg tablet 50 mcg PO DAILY epinephrine 0.3 mg/0.3 mL auto-injector 0.3 mg IM DIRECTED PRN (Reason: anaphylaxis) Qty: 2 2RF Nexletol 180 mg tablet 180 mg PO DAILY Patient Comments: TAKE ONE TABLET BY MOUTH EVERY DAY estradiol 0.025 mg/24 hr patch weekly 1 patch topical .weekly Patient Comments: APPLY ONE PATCH TO SKIN ONCE WEEKLY ON SATURDAY omega [id number] oil [Fish Oil] 1,200 (144-216) mg capsule 1 cap PO BID Patient Comments: Take 1 capsule by mouth twice a day azithromycin 250 mg tablet 250 mg PO DAILY Patient Comments: TAKE ONE TABLET BY MOUTH EVERY DAY doxycycline hyclate 100 mg tablet 100 mg PO BID Patient Comments: TAKE ONE TABLET BY MOUTH TWICE A DAY trazodone 150 mg tablet 150 mg PO HS PRN Patient Comments: TAKE ONE TABLET BY MOUTH IN THE EVENING NEEDED Discharge Instructions Instructions: Dehydration, Adult (DC), Hyponatremia Additional Instructions: You were found to have severely low sodium and low potassium levels probably induced by your recent GI illness causing you to have diarrhea and vomiting. Dehydration should be managed by a balanced fluid replacement that includes electrolytes. You can drink Pedialyte or Gatorade to replace your electrolytes when you are feeling dehydrated. Drinking water is genrally a good idea to prevent dehydration but water alone will dilute down your electrolytes which also need to be replaced when you are dehydrated. You were treated w/ hypertonic saline solution which brought your sodium back towards normal. Your sodium and potassium levels have been stable over past 24h. You should get repeat labs in 3 days to be sure that they are remaining near normal or at normal levels. If you have further vomiting, diarrhea, severe headaches or confusion, present to the nearest emergency room or call 911. Please make a follow up appointment with Dr. Dana Clifford in [facility]. Referrals: Dana Cedillo DO [Primary Care Provider] - 02/24/24 1:45 pm (Dana Cedillo not available, appointment with Carmen Brunner at [facility]) Activity:: Activity as Tolerated Equipment/Supplies:: No Equipment Needed Diet:: Normal Diet Discharge Orders Discharge Orders: Discharge Order (Routine); Ordered 02/17/24 Ordered By: Ron nAdrade Other Ambulatory Orders: Basic Metabolic Panel (Routine) Timeframe: 3 Days Facility: [facility] - Location: Laboratory Outpatient - [facility] Ordered By: Ron Andrade DS: Summary Time Spent with Patient providing and/or coordinating discharge services: Greater than 30 minutes Specific discharge activities: Interview/exam of patient; review of discharge instructions, completion of prescriptions/discharge instructions; discussion w/ nursing and CM; documentation of hospital visit Status at Discharge Functional status at discharge: independent ambulation Overall status at discharge: patient is back to baseline Mental Status: mental status grossly normal Speech and Movement: speech and movement normal Mood: congruent mood Affect: normal affect Quality:SDOH Health Related Social Needs: No Data to Display Exam Narrative Exam Narrative: Patient is alert and oriented x 3 normal speech pattern full extraocular motion intact no focal motor or sensory deficits to light touch and no muscle weakness with manual muscle testing of her upper or lower extremities. Psych Mental Status: mental status grossly normal Speech and Movement: speech and movement normal Mood: congruent mood Affect: normal affect DS: Data Vitals/I&O Vitals and I&O: Vital Signs Temperature 36.5 C 02/17/24 12:00 Temperature Source Temporal Artery Scan 02/17/24 03:28 Pulse 71 02/17/24 14:11 Pulse 75 02/17/24 14:11 Respiratory Rate 20 02/17/24 14:11 Respiratory Effort Normal 02/15/24 18:13 Respiratory Depth Normal 02/15/24 18:13 Respiratory Pattern Normal 02/15/24 18:13 Blood Pressure 122/75 02/17/24 14:11 Blood Pressure Mean 91 02/17/24 14:11 Blood Pressure Position Supine 02/15/24 12:04 Pulse Oximetry 95 02/17/24 14:11 Oxygen Delivery Method Room Air 02/15/24 12:04 Oxygen Flow Rate 0 02/15/24 12:04 Pain Level 2 02/16/24 19:55 Comment Manual BP taken after automatic cuff returned abnormal low. 02/16/24 00:23 Intake & Output 02/16/24 02/17/24 02/17/24 23:59 11:59 23:59 Intake Total 784.667 / 784.667 420 / 780 360 / 780 Output Total 650 / 900 Balance 134.667 / -115.333 420 / 780 360 / 780 Intake: IV 584.667 / 584.667 Oral 200 / 200 420 / 780 360 / 780 Output: Urine 650 / 900 Other: Urine Color Yellow Urine Appearance Clear Urine Odor Normal Voiding Methods Bedside Commode Data Completed and Pending Labs on day of discharge: Labs from last 24 hours 02/17/24 02/17/24 02/17/24 18:00 12:40 08:50 Sodium Pending 133 L 133 L Potassium Pending 4.5 3.7 Chloride Pending 100 99 Carbon Dioxide Pending 25.1 26.2 Anion Gap Pending 7.9 7.8 BUN Pending 20 H 22 H Creatinine Pending 1.1 H 1.1 H Est GFR (CKD-EPI 2020) Pending 52.40 52.40 Glucose Pending 146 H 207 H Calcium Pending 9.1 9.2 Urine Osmolality 02/16/24 02/15/24 18:05 18:30 Sodium 129 L Potassium 4.1 Chloride 97 L Carbon Dioxide 26.2 Anion Gap 5.8 BUN 18 Creatinine 1.2 H Est GFR (CKD-EPI 2020) 47.21 Glucose 139 H Calcium 9.1 Urine Osmolality 290 PFSH All Active Problems (Updated 02/17/24 @ 14:48 by Ron Andrade MD) Acute hyponatremia (Acute) Hypercalciuria (Acute ~01/2024) 01/22/24 Endocrinology Metatarsalgia of both feet (Acute) Hallux rigidus of right foot (Acute) Hallux rigidus, left foot (Acute) Osteopenia (Acute 12/27/22) DEXA at [facility] Chronic low back pain (Chronic) 10/24/22 Steroid injection Mixed anxiety and depressive disorder (Acute) Arthritis of carpometacarpal (CMC) joint of right thumb (Acute) 11/07/21 & 12/29/21 Arthroplasty at [facility] Chronic rhinitis (Acute) Imbalance (Acute) History of vertigo (Acute) Fracture of second metatarsal bone of left foot (Acute ~05/16/23) Leg length discrepancy (Acute) Neuroma of third interspace of left foot (Acute) Neuroma of third interspace of right foot (Acute) Achilles tendon contracture, bilateral (Acute) Pes planus of both feet (Acute) Plantar fasciitis of left foot (Acute) Mild anemia (Acute) Wears hearing aid in both ears (Acute) Venous incompetence (Acute) Symptomatic varicose veins of both lower extremities (Acute) Urge incontinence (Acute) Atrophic vaginitis (Acute) Familial hypercholesteremia (Acute) Otorrhea (Acute) Sleep apnea (Acute) Hypothyroid (Chronic) Allergic rhinitis due to food (Acute 10/12/13) Allergic rhinitis due to animal (cat) (dog) hair and dander (Acute 05/04/13) Abnormal auditory perception (Acute 09/06/14) Allergic rhinitis due to pollen (Acute 05/04/13) Chronic otitis media (Acute 12/19/15) Chronic otorrhea of both ears (Acute 10/08/16) Chronic sinusitis (Acute 05/17/14) Conductive hearing loss (Acute 12/19/15) Eustachian tube anomaly (Acute 05/17/14) Nasal congestion (Acute 09/06/14) Obstructive sleep apnea (Acute 05/17/14) Sensorineural hearing loss, bilateral (Acute 04/04/15) Wheezing (Acute 05/04/13) Vitamin D deficiency disease (Acute) Fatigue (Acute) Chronic diarrhea (Acute) Urinary incontinence (Acute) Heart murmur, systolic (Acute) Medical History Lyme disease (2020) Allergic rhinitis (05/04/13) Perforation of left tympanic membrane History of endometriosis Encounter for screening colonoscopy Allergic fungal sinusitis (05/04/13) Surgical History H/O abdominoplasty age 59 Status post breast reduction age 59 H/O nasal septoplasty age 39 H/O hysterectomy for benign disease History of knee replacement R History of hysterectomy History of section History of tonsillectomy History of appendectomy History of colonoscopy Family History Brother Anxiety Depression Niece Depression Nephew Depression Mother Heart disease Father Heart disease Parkinson disease Sister Heart disease 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 Pets and animals: No Do you think of yourself as: straight/heterosexual Current gender identity: female What is your relationship status?: How often do you talk on the phone with friends or family?: three or more times per week How often do you get together with friends or relatives?: three or more times per week Do you belong to any clubs or organized social groups?: yes Panel score (0-1 are the most socially isolated patients): 2 What type of physical activity do you participate in: walking and swimming Duration: 15-30 minutes/day Frequency: 3-4 times per week Jodie/Sikh: Sabianism Agree to transfusion: No Seatbelt use: always Helmet use: Yes Drive intox or ride w/intox chassis driver: No Do you feel safe at home: Yes Do you feel safe in your relationship?: Yes Time Spent with Patient Time Spent with Patient: <45 minutes (40 minutes) Time was spent: preparing to see the patient(eg.review tests), obtaining and/or reviewing separately otained hiistory, ordering medications,tests, procedures, referring, communicating with other health career development counselor, indepentently interpreting results, counseling the patient and care coordination
== END 2024-02-17 15:21 | disposition home or self-care (01) | DRG 640 ==
LOC: ER 15:15 → ICU 16:28
PROVIDERS: Internal Medicine; Student in an Organized Health Care Education/Training Program; Admitting Provider Family Medicine; Emergency Provider Emergency Medicine; PCP Student in an Organized Health Care Education/Training Program; Visit Provider Family Medicine
DX: E87.1 Hypo-osmolality and hyponatremia (principal); G93.41 Metabolic encephalopathy; K86.2 Cyst of pancreas; E87.6 Hypokalemia; E03.9 Hypothyroidism, unspecified; F41.8 Other specified anxiety disorders; I10 Essential (primary) hypertension; M85.80 Other specified disorders of bone density and structure, unspecified site; G89.29 Other chronic pain; M54.50 Low back pain, unspecified; D64.9 Anemia, unspecified; I83.893 Varicose veins of bilateral lower extremities with other complications; E55.9 Vitamin D deficiency, unspecified; K52.9 Noninfective gastroenteritis and colitis, unspecified; R32 Unspecified urinary incontinence; J30.9 Allergic rhinitis, unspecified; R51.9 Headache, unspecified; R53.83 Other fatigue; K57.30 Diverticulosis of large intestine without perforation or abscess without bleeding
CPT/HCPCS: 00123; 36415; 36416; 80048; 80053; 80307; 82805; 82962; 83690; 83935; 85027; 87637; 93005; 96360; 96361; 99285; J1650; 70450; 71046; 74177; 80320; 80329; 81003; 82140; 82565; 83735; 83880; 84300; 84443; 84484; 85025; 85610; 85730; 93010; 99223; 99233; 99238; J1885; J3480; J3490

== ENCOUNTER 2024-02-20 13:31 | Outpatient (CLI) | payer MEDICARE, SELFPAY ==
[2024-02-20 11:00] LABS: Anion Gap 8.8 mmol/L (3-11); BUN 12 mg/dL (7-18); CO2 29.2 mmol/L (21.0-32.0); CREATININE 1.2 mg/dL (0.55-1.02); Calcium 9.6 mg/dL (8.5-10.1); Chloride 97 mmol/L (98-107); Estimated GFR 47.21 (mL/min/1.73m2); Glucose 193 mg/dL (74-106); Potassium 3.4 mmol/L (3.5-5.1); Sodium 135 mmol/L (136-145)
--- OUTSIDE RECORDS SUMMARY | 2024-02-20 13:36 | XMS_ITS ---
Author Organization [facility] Address [address] [place] [phone] Care Team Providers Care Health Education Coordinator Name Role Phone Veronica De Primary Care Provider REASON FOR VISIT refill Medications Medication SIG (Take, Route, Frequency, Duration) Notes Start Date End Date Status diazePAM 2 MG 1 tablet at bedtime Orally Once a day for 30 days 09/26/2023 Active Encounters Encounter Location Date Provider Diagnosis [address] [id number] 09/26/2023 Veronica De Major depressive disorder, recurrent, [...] ARNOLDYessenia Meyer SDOB:[birth year] (73 yo F)Acc No.[id number]:09/26/2023 Patient:?Yessenia LUONG :1950???Age:73 Y???Sex:Female Address:[address], [place] [address] * Refills? Refill diazePAM Tablet, 2 MG, Orally, 30 Tablet, 1 tablet at bedtime, Once a day, 30 days, Refills=0 * true * Date:? Generated for Pratik carpio/Kelli/eTransmitting on:?02/20/2024 01:35 PM EDT
--- OUTSIDE RECORDS SUMMARY | 2024-02-20 13:36 | XMS_ITS ---
Author Organization [facility] Address [address] [place] [phone] Care Team Providers Care Balloon Seller Name Role Phone Veronica De Primary Care Provider REASON FOR VISIT possible MED REACTION Encounters Encounter Location Date Provider Diagnosis [address] [id number] 12/10/2023 Veronica De Plan Of Treatment No Information Progress Notes * Yessenia ESPARZA SDOB:[birth year] (73 yo F)Acc No.[id number]:12/10/2023 Patient:?AGLeonela Mamie :1950???Age:73 Y???Sex:Female Address:[address], [place] [address] * true * Date:? Generated for Printi ng/Fafredg/eTransmitting on:?02/20/2024 01:35 PM EDT
--- OUTSIDE RECORDS SUMMARY | 2024-02-20 13:36 | XMS_ITS ---
Author Organization [facility] Address [address] [place] [phone] Care Team Providers Care Soda Dispenser Name Role Phone Veronica De Primary Care Provider [phone] REASON FOR VISIT . Called - In put on counselor options Encounters Encounter Location Date Provider Diagnosis [address] [id number] 02/17/2024 Veronica De Plan Of Treatment No Information Progress Notes * Yessenia LUONG SDOB:[birth year] (74 yo F)Acc No.[id number]:02/17/2024 Patient:?Yessenia LUONG :1950???Age:74 Y???Sex:Female Address:[address], [place] [address] * * Date:?
--- OUTSIDE RECORDS SUMMARY | 2024-02-20 13:36 | XMS_ITS | Continuity of Care Document ---
Author Organization [facility] Address [address] [place] [address] Care Team Providers Care Sack Lifter Name Role Phone MILO DANG Primary Care Physician Encounter [facility] [id number] Date(s): 02/18/24 - 02/18/24 [facility] [address] [place], [place] [address] Discharge Disposition: Home Allergies, Adverse Reactions, Alerts Substance Criticality Severity Reaction Reaction Severity Status amoxicillin Unable to assess criticality Unknown Active morphine Unable to assess criticality Unknown Active Augmentin High criticality Moderate Act aide Effexor Unable to assess criticality Unknown Active Bactrim Unable to assess criticality Unknown Active Bees/Stinging Insects Unable to assess criticality Unknown Active fenofibrate Unable to assess criticality Unknown Active citalopram Unable to assess criticality Unknown Active penicillins Unable to assess criticality Unknown Active sulfa drugs Unable to assess criticality Unknown Active Zocor [...] 11/15/14 Tu rded 1Result Comment: Unit: Unknown 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: [employer] 2Result Comment: Unit: Unknown 3Result Comment: [...] Daily, # 30 cap, 11 Refill(s), Pharmacy: [id number] Start Date: 03/28/23 Status: Ordered EpiPen [...] fever, # 80 tab, 1 Refill(s), Pharmacy: [id number] Start Date: 11/02/22 Status: Ordered lisdexamfetamine [...] medication., # 21 tab, 0 Refill(s), Pharmacy: [id number], 157.48, cm, 09/26/23 10:42:00 EDT, Height, [...] Daily, # 90 cap, 0 Refill(s), Pharmacy: [id number] Start Date: 08/23/22 Status: Ordered traZODone 150 mg oral tablet 150 mg = 1 tab, Oral, every day at bedtime, # 30 tab, 0 Refill(s) Start Date: 02/15/23 Status: Ordered triamcinolone 0.025% topical cream 1 karina, Topical, Daily, # 15 g, 0 Refill(s), Pharmacy: [facility] Start Date: 08/07/22 Stop Date: 08/21/22 Status: Ordered trimethoprim 100 mg oral tablet 100 mg = 1 tab, Oral, every 12 hr, # 20 tab, 0 Refill(s), Pharmacy: [id number], 157.48, cm, 09/26/23 10:42:00 EDT, Height, 72.57, kg, 09/26/23 10:51:00 EDT, Weight Dosing Start Date: 02/18/24 Stop Date: 02/28/24 Status: Ordered Tylenol 8 Hour 650 mg oral tablet, extended release 650 mg = 1 tab, Oral, BID, PRN as needed for fever, # 50 tab, 1 Refill(s), Pharmacy: [id number] Start Date: 11/02/22 Status: Ordered Tylenol Extra Strength 500 mg oral tablet QID, as needed, 0 Refill(s) Start Date: 04/27/22 Status: Ordered Vagifem 10 mcg vaginal tablet 10 mcg = 1 tab, VAG, Mon//Fr at bedtime, # 36 tab, 3 Refill(s), Pharmacy: [id number] Start Date: 01/08/23 Status: Ordered Vagifem 10 mcg vaginal tablet 10 mcg = 1 tab, VAG, Mon/Sat, # 26 tab, 4 Refill(s), [facility] [...] Completed Surgery 2 06/2020 Completed Drainage of billing auditor y canal abscess 3 10/2016 Completed [...] No Access Member Role: Informed Provider Address: [address] Name: Yasmine Strickland APRN Position: Physician Member Role: Nurse Practitioner Address: [address] [place] [address] Name: MILO DANG Position: No Access Member Role: Primary Care Physician Address: [address] [place] [address] Care Team Related Persons Name: MARIANO MORENO Name: DESEAN ESPARZA Name: DESEAN ESPARZA Insurance Providers Guarantor name: SUNNY ESPARZA Health Plan Information #: 1 Payer: [place] [employer] Member Number: NA Policy Number: NA Health Plan Information #: 2 Payer: [place] [employer] Member Number: NA Policy Number: NA
--- OUTSIDE RECORDS SUMMARY | 2024-02-20 13:36 | XMS_ITS | Patient Health Record ---
Author Organization [facility] Address [address], [place] [address] Care Team Providers Care Feed Grinder Name Role Phone Veronica De Primary Care Provider Allergies Allergen (clinical drug ingredient) Drug/Non Drug [...] Problem Status W/U Status Risk Notes Problem [id number] Anxiety disorder, unspecified (F41.9) Active confirmed Problem 401104565 Medication monitoring encounter (Z51.81) Active confirmed Problem 76498847 Other chronic pain (G89.29) Active confirmed Problem [id number] Major depressive disorder, recurrent, moderate (F33.1) Active confirmed Problem 63369439 Vitamin D deficiency, unspecified (E55.9) Active confirmed Problem Allergic rhinitis caused by pollen (95726515) Allergic rhinitis due to pollen, unspecified seasonality (J30.1) Active confirmed Vital Signs Heart Rate 92 BPM 03/05/2023 Temperature 97.8 degrees Fahrenheit 03/05/2023 Blood pressure diastolic 66 mmHg 04/23/2023 Oximetry 96 % 03/05/2023 Blood pressure systolic 126 mmHg 04/23/2023 Weight 163.6 lbs 04/23/2023 Encounters Encounter Location Date Provider Diagnosis [address] [id number] 03/05/2023 Veronica De Major depressive disorder, recurrent, moderate F33.1 ; Other chronic pain G89.29 and Anxiety F41.[address] [id number] 03/26/2023 Veronica De Major depressive disorder, recurrent, moderate F33.1 ; Anxiety disorder, unspecified F41.9 and Other chronic pain G89.[address] [id number] 04/23/2023 Martin Kenisha Major depressive disorder, recurrent, moderate F33.1 and Anxiety disorder, unspecified F41.[address] [id number] 04/25/2023 Veronica De Major depressive disorder, recurrent, moderate F33.1 ; Anxiety disorder, unspecified F41.9 and Other chronic pain G89.[address] [id number] 05/07/2023 Veronica De Major depressive disorder, recurrent, moderate F33.1 ; Anxiety disorder, unspecified F41.9 and Other chronic pain G89.[address] [id number] 05/16/2023 Veronica De Major depressive disorder, recurrent, moderate F33.1 ; Anxiety disorder, unspecified F41.9 and Other chronic pain G89.[address] [id number] 06/24/2023 Veronica De Major depressive disorder, recurrent, moderate F33.1 ; Anxiety disorder, unspecified F41.9 and Other chronic pain G89.[address] [id number] 08/29/2023 Martinnemo De Major depressive disorder, recurrent, moderate F33.1 ; Anxiety disorder, unspecified F41.9 and Other chronic pain G89.[address] [id number] 02/17/2024 Martin Kenisha [address] [place] [id number] 03/06/2023 Veronica De [address], [place] [id number] 04/22/2023 Veronica De [address], [place] [id number] 07/08/2023 Veronica De [address] [id number] 08/29/2023 Veronica De [address] [id number] 09/26/2023 Veronica De Major depressive disorder, recurrent, moderate F33.[address] [id number] 12/10/2023 Veronica De Assessments Encounter Date Diagnosis [...] provided by erika Spence for Veronica De [facility] SECURITY AND PRIVACY CONSULTANT-C TITLE INSPECTOR on 06/04/2023. I have read the medical record and scribe entries. I approve the care and treatment provided to this patient as recorded by the scribe 03/05/2023 Other Documentation assistance provided by erika Spence for Veronica De [facility] SECURITY AND PRIVACY CONSULTANT-C TITLE INSPECTOR on 03/05/2023. I have read the medical [...] to Gogo Brizuela for counseling when Haley alvarenga Recommended to use photo therapy (light box) daily for 20 minutes from February-September for seasonal depressionEncouraged to contact [employer] [facility] [employer] to book a massage 03/26/2023 Other Documentation assistance provided by erika Spence for Veronica De [employer] SECURITY AND PRIVACY CONSULTANT-C TITLE INSPECTOR on 03/26/2023. I have read the medical [...] ([place] 10 -happy light)Encouraged to contact [employer] and fitness to book a massage.Continue PT/OTConsider gentle stretching exercise for Fibromyalgia, PBS show Adeola [facility] trauma based [facility] walks and engage in swimmingCan try Colace, prunes, dates, and high fiber diet for constipation 04/23/2023 Other Documentation assistance provided by erika Spence [employer] SECURITY AND PRIVACY CONSULTANT-C TITLE INSPECTOR on 04/23/2023. I have read the medical [...] mg at bedtimeconsider counseling with Gogo Martinez [phone] or Johanna Garcia PT/OTConsider gentle stretching exercise for Fibromyalgia, PBS show Adeola WhiteConsider gentle yoga with Eulalio Johnyulia in [facility] daily walks and engage in swimming 04/25/2023 Other Documentation assistance provided by erika Spence for Veronica De [employer] SECURITY AND PRIVACY CONSULTANT-C TITLE INSPECTOR on 04/25/2023. I have read the medical [...] by erika Spence for Veronica De [employer] SECURITY AND PRIVACY CONSULTANT-C TITLE INSPECTOR on 05/07/2023. I have read the medical [...] Documentation assistance provided by erika Spence [employer] SECURITY AND PRIVACY CONSULTANT-C TITLE INSPECTOR on 05/16/2023. I have read the medical [...] level, blood work orders in place, call [facility] to make appointment 06/24/2023 Other Documentation assistance provided by erika Spence for Veronica De [employer] SECURITY AND PRIVACY CONSULTANT-C TITLE INSPECTOR on 06/24/2023. I have read the medical [...] YouTubecontact Gogo Martinez or Johanna Barajas at [phone] consider attending yoga class with Vance Solano 08/29/2023 Other Documentation assistance provided by erika Spence for Veronica De [employer] SECURITY AND PRIVACY CONSULTANT-C TITLE INSPECTOR on 08/30/2023. I have read the medical [...] Insured Coverage Start Date Coverage End Date [facility] [address] [place] [address] [id number] Yessenia Luong Self - patient is the [...]
--- OUTSIDE RECORDS SUMMARY | 2024-02-20 13:37 | XMS_ITS | Encounter Summary ---
Author Organization [facility] Address [address] [place] [address] Care Team Providers Care Wire Steward Name Role Phone Unavailable Primary Care Provider Unavailabl e Encounter Details Date Type Department Care Team (Late st Contact Info) Description 09/12/2005 Results Only [facility] - Maple conversion [address] [place] [address] Neisha Castaneda MD [address] [place] [address] [place] [address] Social History Tobacco Use Types Packs/Day Years [...] ? YESSENIA LUONG ? Accession #: ? [id number] : ? 1950 (Age: 55) ??F ?Collect Date: ? 09/12/2005 Location: ? [facility] ? Receive Date: ? 09/13/2005 Provider: ?NEISHA CASTANEDA MD Copy to: ? Specimen/Source: ?ThinPrep Pap Test, Cervix/Endocervix, processed on [employer] ThinPrep Imaging System, with manual evaluation Last [...] Castaneda MD PATHOLOGY ORDERABLES Performing Organization Address City/State/[facility] Co de Phone Number MARTHA THOMPSON [address] [place] [address] documented in this encounter Visit Diagnoses Not on filedocumented in this encounter
--- OUTSIDE RECORDS SUMMARY | 2024-02-20 13:37 | XMS_ITS | Clinical Summary ---
Author Organization [facility] Address [address] [place] [address] Care Team Providers Care Configurator Name Role Phone Unavailable Primary Care Provider Unavailabl e Encounters Date Type Department Care Team Description 02/16/2024 Lab Requisition [facility] Pathology & Laboratory Medicine - [facility] [address] [place] [address] Outr Resulting Lab, Provider from Last 3 Months Social History Tobacco Use Types Packs/Day Years [...] Procedure Name Priority Date/Time Associated Diagnosis Comments OSMOLALITY, URINE Routine 02/15/2024 18: 30 EDT HEPATITIS C AB W REFLEX TO HCV RNA BY PCR Routine 11/04/2020 14:37 EDT from Last 3 Months or Most Recently Relevant to Health Maintenance Results * OSMOLALITY, URINE (02/15/2024 18:30 EDT) Osmolality, Urine 290 150 - 1,150 mOsm/kg 02/16/2024 16:18 EDT [facility] Urine URINE / Unknown 02/15/2024 1 8:30 EDT 02/16/2024 16:07 EDT Provider Outr Resulting Lab URINALYSIS O RDERABLES [facility] [address] [place] [address] * HEPATITIS C AB W REFLEX TO HCV RNA BY PCR (11/04/2020 14:37 EDT) Hep C Antibody Negative Negative 11/07/2020 10:56 EDT [facility] Blood VENOUS BLOOD / Unknown 11/04/2020 14:37 EDT 11/04/2020 21:45 EDT Provider Outr Resulting Lab CHEMISTRY & BLOOD GAS ORDERABLES Performing Organization Address City/[facility]/ZIP Co de Phone Number [facility] [address] [place] [address] from Last 3 Months or Most Recently Relevant to Health Maintenance
--- OUTSIDE RECORDS SUMMARY | 2024-02-20 13:37 | XMS_ITS | Encounter Summary ---
Author Organization [facility] [address] [place] [address] Care Team Providers Care Commodities Requirements Analyst Name Role Phone Guerline Quigley APRN Primary Care Provider [phone] Encounter Details Date Type Department Care Team [...] EDT Office Visit Dermatology at [place] [address] [facility] [place] [address] Emiliano Salinas MD [address], [place] [address] documented as of this encounter Visit Diagnoses Not on filedocumented in this encounter Care Teams Commodities Requirements Analyst Relationship Specialty Start Date End Date Guerline Quigley APRN PCP - General Family Medicine 03/18/23 09/29/23 documented as of this encounter
--- OUTSIDE RECORDS SUMMARY | 2024-02-20 13:37 | XMS_ITS | Encounter Summary ---
Author Organization [facility] [place] [address] Care Team Providers Care Sports Athletic Trainer Name Role Phone CésarDana hamm Mery ROCHE Primary Care Provider [phone] Reason for Visit * Reason Comments Medication Refill Encounter Details Date Type Department Care Team (Late st Contact Info) Description 02/08/2024 Refill Cardiology at [address] [address] Liam Noel MD [facility] [place] [address] Medication Refill Social History Tobacco Use Types [...] AM EDT Office Visit Dermatology at [address] [address] Emiliano Salinas MD [address] [place] [address] RD, [place] [address] documented as of this encounter Visit Diagnoses Diagnosis Mixed hyperlipidemia documented in this encounter Care Teams Sports Athletic Trainer Relationship Specialty Start Date End Date Dana Cedillo DO [address] [place] [address] PCP - General Family Medicine 10/16/23 documented as of this encounter
--- OUTSIDE RECORDS SUMMARY | 2024-02-20 13:37 | XMS_ITS | Encounter Summary ---
Author Organization [facility] [place] [address] Care Team Providers Care Activity Coordinator Name Role Phone Guerline Quigley KEISHA Primary Care Provider [phone] Encounter Details Date Type Department Care Team (Late st Contact Info) Description 08/15/2023 Telephone [place] [address] Virginia Everett MD [facility] [place] [address] Social History Tobacco Use Types Packs/Day Years [...] 9:45 AM EDT Office Visit Dermatology at [place] [address] [facility] [place] [address] Emiliano Salinas MD [address], [place] [address] documented as of this encounter Visit Diagnoses Not on filedocumented in this encounter Care Teams Activity Coordinator Relationship Specialty Start Date End Date Guerline Quigley APRN PCP - General Family Medicine 03/18/23 09/29/23 documented as of this encounter
--- OUTSIDE RECORDS SUMMARY | 2024-02-20 13:37 | XMS_ITS | Encounter Summary ---
Author Organization [facility] [place] [address] Care Team Providers Care Roof Fitter Name Role Phone Guerline Quigley KEISHA Primary Care Provider [phone] Encounter Details Date Type Department Care Team (Late st Contact Info) Description 07/31/2023 Telephone [place] [phone] Luna Lazcano RN Social History Tobacco Use [...] 07/31/2023 1:50 PM EST Copied from CRM #[id number]. Topic: Specialty Dept CRMs - Medication Issues >> Jul 31, 2023 1:37 PM Maya Muller wrote: Medication Issues Specialist Virginia Everett MD Relationship (if other than patient-full name): self Reason for call: Medication Issue (if symptom based used Triage Subtopic) Message/information for the nurse: Patient states she was prescribed Pantoprazole 20 mg and Okxyhap13 or 20 mg but when she read [...] AM EDT Office Visit Dermatology at [address] [place] [address] Emiliano Salinas MD [address], [place] [address] documented as of this encounter Visit Diagnoses Not on filedocumented in this encounter Care Teams Roof Fitter Relationship Specialty Start Date End Date Guerline Quigley APRN PCP - General Family Medicine 03/18/23 09/29/23 documented as of this encounter
--- OUTSIDE RECORDS SUMMARY | 2024-02-20 13:37 | XMS_ITS | Encounter Summary ---
Author Organization [facility] [place] [address] Care Team Providers Care Hydroponics Worker Name Role Phone Guerline Quigley APRN Primary Care Provider [phone] Reason for Visit * Consultation (Routine) - Closed Specialty Diagnoses / Procedures Referred By Veronica brantley Referred To Contact Endocrinology Diagnoses Hypothyroidism, unspecified Other specified disorders of bone density and structure, unspecified site Guerline Quigley APRN [address] [place] [address] [facility] Endocrinology [address] [place] [phone] Referral ID Status Reason Start Date Expiration Date Visits Re quested Visits Authorized [id number] Closed 06/05/2023 06/04/2024 1 1 Encounter Details Date Type Department Care Team (Late st Contact Info) Description 07/30/2023 10:00 AM EST Office [place] [address] Virginia Everett MD [facility] [place] [address] Osteopenia, unspecified location Social History [...] [x] 701-900 mg [] 901-1100 mg [] 7503-7226 mg [] 4484-1109 mg [] Above 1500 mg ROS: Constitutional: [...] EACH WEEK fluticasone propionate (Flonase) 50 mcg/actuation [place], Suspension Every 12 hours. 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 Social [...] daily). She is planning to go to [place] for the month of August. Her TFTs are within normal limits while on levothyroxine 50 mcg. Plan: - will obtain DXA scan report and based on the scores decide about the appropriate treatment - Ca and Vit D prescription can be sent to [facility] if needed - continue with current Ca [...] 9:45 AM EDT Office Visit Dermatology at [place] [address] [place] [address] Emiliano Salinas MD [address], [place] [address] Scheduled Orders Name Type Priority Associated Diagnoses [...] Free T4 1.37 0.93 - 1.70 ng/dL [facility] Comment: Reference Interval (ng/dL): Females: ??First Trimester: 0.97-1.68 ??Second Trimester: 0.77-1.51 ??Third Trimester: 0.77-1.49 Blood 07/30/2023 11:3 2 AM EST 07/30/2023 11:39 AM EST Narrative Resulting Agency Comment Spec In Lab Virginia Everett MD CHEMISTRY ORDERABL ES Performing Organization Address City/[facility] Co de Phone Number [facility] [place] [address] * TSH (07/30/2023 11:32 AM EST) Thyroid Stimulating Hormone 1.96 0.27 - 4.20 mcIU/mL [facility] Comment: Reference Interval (mcIU/mL): Females: ??First Trimester: 0.23-3.88 ??Second Trimester: 0.22-3.90 ??Third Trimester: 0.44-4.66 Blood 07/30/2023 11:3 2 AM EST 07/30/2023 11:39 AM EST Narrative Resulting Agency Comment Spec In Lab Virginia Everett MD CHEMISTRY ORDERABL ES Performing Organization Address City/[facility] Co de Phone Number [facility] [place] [address] * PTH (07/30/2023 11:32 AM EST) Parathyroid Hormone 43 15 - 65 pg/mL [facility] Blood 07/30/2023 11:3 2 AM EST 07/30/2023 11:39 AM EST Narrative Resulting Agency Comment Spec In Lab Virginia Everett MD CHEMISTRY ORDERABL ES Performing Organization Address City/[facility]/ZIP Co de Phone Number [facility] [place] [address] * Phosphorus (07/30/2023 11:32 AM EST) Phosphorus 3.5 2.5 - 4.5 mg/dL [facility] Blood 07/30/2023 11:3 2 AM EST 07/30/2023 11:39 AM EST Narrative Resulting Agency Comment Spec In Lab Virginia Everett MD CHEMISTRY ORDERABL ES Performing Organization Address [facility] de Phone Number [facility] [place] [address] * Magnesium (07/30/2023 11:32 AM EST) Magnesium 0.82 0.69 - 1.07 mmol/L [facility] Blood 07/30/2023 11:3 2 AM EST 07/30/2023 11:39 AM EST Narrative Resulting Agency Comment Spec In Lab Virginia Everett MD CHEMISTRY ORDERABL ES Performing Organization Address [facility] de Phone Number [facility] [place] [address] * Vitamin D, 25-Hydroxy (07/30/2023 11:32 AM EST) Vitamin D Total 25 OH 59 21 - 100 ng/mL [facility] Vit D Interp Sufficient [facility] Blood 07/30/2023 11:3 2 AM EST 07/30/2023 11:39 AM EST Narrative Resulting Agency Comment Spec In Lab Virginia Everett MD CHEMISTRY ORDERABL ES Performing Organization Address [facility] Co de Phone Number [facility] [place] [address] * Comprehensive metabolic panel (non-fasting) (07/30/2023 11:32 AM EST) Glucose 98 65 - 199 mg/dL [facility] Comment:Diabetes: >=200 mg/d L plus symptoms Blood Urea Nitrogen 10 8 - 18 mg/dL [facility] Creatinine 0.75 0.70 - 1.20 mg/dL [facility] Sodium 140 135 - 145 mmol/L [facility] Potassium 4.6 3.5 - 5.0 mmol/L [facility] Comment: Please note: ??Patients with WBC >100,000 may have falsely elevated Potassium levels. ??For accurate Potassium quantification in these patients send serum separator tube (gold top) for subsequent determinations. ??Contact the Clinical Chemistry Laboratory if there are any questions. Chloride 101 98 - 107 mmol/L [facility] Carbon Dioxide 28 22 - 31 mmol/L [facility] Anion Gap 11 5 - 15 mmol/L [facility] Calcium 10.1 8.5 - 10.5 mg/dL [facility] Protein, Total 7.4 6.1 - 8.0 g/dL [facility] Albumin 4.5 3.2 - 5.2 g/dL [facility] Aspartate Aminotransferase 22 0 - 30 unit/L [facility] Alanine Aminotransferase 18 0 - 30 unit/L [facility] Alkaline Phosphatase 77 35 - 105 unit/L [facility] Bilirubin, Total 0.4 0.2 - 1.3 mg/dL [facility] Est Glomerular Filtration Rate 83 >=60 mL/min/1. 73 m?? [facility] Comment: This patient's estimated GFR was [...] Lab Virginia Everett MD CHEMISTRY ORDERABL ES [facility] [place] [address] documented in this encounter Visit Diagnoses Diagnosis Osteopenia, unspecified location documented in this encounter Care Teams Hydroponics Worker Relationship Specialty Start Date End Date Guerline Quigley APRN PCP - General Family Medicine 03/18/23 09/29/23 documented as of this encounter
--- OUTSIDE RECORDS SUMMARY | 2024-02-20 13:37 | XMS_ITS | Encounter Summary ---
Author Organization [facility] Address [address] [place] [address] Care Team Providers Care Organizational Development Consultant Name Role Phone Unavailable Primary Care Provider Unavailabl e Encounter Details Date Type Department Care Team (Late st Contact Info) Description 02/16/2024 Lab Requisition [facility] Pathology & Laboratory Medicine - [address] [id number] Outr Resulting Lab, Provider Social History Tobacco [...] OSMOLALITY, URINE Routine 02/15/2024 18: 30 EDT documented in this encounter Results * OSMOLALITY, URINE (02/15/2024 18:30 EDT) Osmolality, Urine 290 150 - 1,150 mOsm/kg 02/16/2024 16:18 EDT [facility] Urine URINE / Unknown 02/15/2024 1 8:30 EDT 02/16/2024 16:07 EDT Provider Outr Resulting Lab URINALYSIS O RDERABLES [facility] [address] [place] [address] documented in this encounter Visit Diagnoses Not on filedocumented in this encounter
--- OUTSIDE RECORDS SUMMARY | 2024-02-20 13:37 | XMS_ITS | Encounter Summary ---
Author Organization [facility] [place] [address] Care Team Providers Care Diesel Locomotive Firer/Fireman Name Role Phone EverardoDana bergeron Mery ROCHE Primary Care Provider [phone] Encounter Details Date Type Department Care Team (Late st Contact Info) Description 02/07/2024 Telephone Cardiology at [address] [address] Ashlyn Celis, RN Social History [...] Nexletol Approved prior auth Reference PA number [id number] documented in this encounter Plan of Treatment Upcoming Encounters Date Type Department Care Team (Late st Contact Info) Description 03/13/2024 9:45 AM EDT Office Visit Dermatology at [place] [address] [facility] [place] [address] Emiliano Salinas MD [address], [place] [address] documented as of this encounter Visit Diagnoses Not on filedocumented in this encounter Care Teams Diesel Locomotive Firer/Fireman Relationship Specialty Start Date End Date Dana Cedillo DO [address] [place] [address] PCP - General Family Medicine 10/16/23 documented as of this encounter
--- OUTSIDE RECORDS SUMMARY | 2024-02-20 13:37 | XMS_ITS | Encounter Summary ---
Author Organization [facility] Address [address] [place] [address] Care Team Providers Care Client Evaluator Name Role Phone Unavailable Primary Care Provider Unavailabl e Encounter Details Date Type Department Care Team (Late st Contact Info) Description 04/09/2002 Results Only [facility] - Maple conversion [address] [place] [address] Neisha Schulte, NICKER AND BREAKER [address] [place] [address] Social History Tobacco Use Types [...] ? YESSENIA LUONG ? Accession #: ? [id number] : ? 1950 (Age: 52) ??F ?Collect Date: ? 04/09/2002 Location: ? [facility] ? Receive Date: ? 04/13/2002 Provider: ?NEISHA SCHULTE NICKER AND BREAKER Copy to: ? Specimen/Source: ?ThinPrep Pap Test, [...] Report MARTHA THOMPSON 04/09/2002 04/13/2002 Neisha Schulte NICKER AND BREAKER PATHOLOGY ORDERABLE [facility] [address] [place] [address] documented in this encounter Visit Diagnoses Not on filedocumented in this encounter
--- OUTSIDE RECORDS SUMMARY | 2024-02-20 13:37 | XMS_ITS | Encounter Summary ---
Author Organization [facility] [place] [address] Care Team Providers Care Sr. Media Manager Name Role Phone Nguyen Danarebecca Ordonez DO Primary Care Provider +1- [phone] Encounter Details Date Type Department Care Team (Late st Contact Info) Description 01/23/2024 Telephone Cardiology at [address] [place] [address] Liam Noel MD [facility] [place] [address] Social History Tobacco Use Types Packs/Day Years [...] 9:45 AM EDT Office Visit Dermatology at [place] [address] [facility] [place] [address] Emiliano Salinas MD [address] [facility], [place] [address] documented as of this encounter Visit Diagnoses Not on filedocumented in this encounter Care Teams Sr. Media Manager Relationship Specialty Start Date End Date Dana Cedillo DO [address] [place] [address] PCP - General Family Medicine 10/16/23 documented as of this encounter
--- OUTSIDE RECORDS SUMMARY | 2024-02-20 13:37 | XMS_ITS | Encounter Summary ---
Author Organization [facility] [place] [address] Care Team Providers Care Music Orchestrator Name Role Phone Dana Cedillo DO Primary Care Provider +1- [phone] Encounter Details Date Type Department Care Team [...] AM EDT Office Visit Dermatology at [place] [address] [facility] [place] [phone] Emiliano Salinas MD [address] [facility], [place] [address] documented as of this encounter Visit Diagnoses Not on filedocumented in this encounter Care Teams Music Orchestrator Relationship Specialty Start Date End Date Dana Cedillo DO [address] [place] [address] PCP - General Family Medicine 10/16/23 documented as of this encounter
--- OUTSIDE RECORDS SUMMARY | 2024-02-20 13:37 | XMS_ITS | Encounter Summary ---
Author Organization [facility] [place] [address] Care Team Providers Care Station Agent Name Role Phone Dana Cedillo DO Primary Care Provider +1- [phone] Encounter Details Date Type Department Care Team (Late st Contact Info) Description 02/13/2024 Telephone Cardiology at [address] [place] [address] Liam Noel MD [facility] [place] [address] Social History Tobacco Use Types Packs/Day Years [...] 9:45 AM EDT Office Visit Dermatology at [place] [address] [facility] [place] [address] Emilinao Salinas MD [address] [facility] [address], BAKARI [place] [address] documented as of this encounter Visit Diagnoses Not on filedocumented in this encounter Care Teams Station Agent Relationship Specialty Start Date End Date Dana Cedillo DO [address] [place] [address] PCP - General Family Medicine 10/16/23 documented as of this encounter
--- OUTSIDE RECORDS SUMMARY | 2024-02-20 13:37 | XMS_ITS | Encounter Summary ---
Author Organization [facility] [place] [address] Care Team Providers Care Day Guard Name Role Phone Guerline Quigley Rodolfo VALDES Primary Care Provider [phone] Encounter Details Date Type Department Care Team (Late st Contact Info) Description 08/06/2023 Refill Cardiology at [address] [place] [address] Liam Noel MD [facility] [place] [address] Social History Tobacco Use Types Packs/Day Years [...] AM EDT Office Visit Dermatology at [place] [address] [facility] [place] [address] Emiliano Salinas MD [address], BAKARI [place]hat[place] [address] documented as of this encounter Visit Diagnoses Diagnosis Mixed hyperlipidemia documented in this encounter Care Teams Day Guard Relationship Specialty Start Date End Date Guerline Quigley APRN PCP - General Family Medicine 03/18/23 09/29/23 documented as of this encounter
--- OUTSIDE RECORDS SUMMARY | 2024-02-20 13:37 | XMS_ITS | Encounter Summary ---
Author Organization [facility] Address [address] [place] [address] Care Team Providers Care Corporate Planner Name Role Phone Unavailable Primary Care Provider Unavailabl e Encounter Details Date Type Department Care Team (Late st Contact Info) Description 03/20/2023 Lab Requisition [facility] Pathology & Laboratory Medicine - [facility] [address] [place] [address] Outr Resulting Lab, Provider Social History Tobacco [...] IGA <1.2 <4.0 U/mL 03/21/2023 12:51 EDT [facility] Comment: A negative result may be due to IgA deficiency and does not rule out celiac disease. ? Negative: ??<4.0 U/mL ? Weak Positive: ??4.0 - 10.0 U/mL ? Positive: ??>10.0 U/mL Results were obtained with the [employer] Lite R h-tTG IgA MOHAMUD assay on the [employer]nex DSX. IgA 243 85 - 499 mg/dL 03/21/2023 12:51 EDT [facility] Celiac Disease Interpretation Negative Serology. Celiac disease unlikely. Approximately 10% of patients with celiac disease are seronegative. Patients who are already adhering to a gluten-free diet may also be seronegative. If celiac disease is highly clinically suspected, referral to gastroenterology for additional evaluation is recommended. 03/21/2023 12:51 EDT [facility] Blood VENOUS BLOOD / Unknown 03/20/2023 11:00 EDT 03/20/2023 21:56 EDT Provider Outr Resulting Lab IMMUNOLOGY A ND SEROLOGY ORDERABLES [facility] [address] [place] [address] documented in this encounter Visit Diagnoses Not on filedocumented in this encounter
--- OUTSIDE RECORDS SUMMARY | 2024-02-20 13:37 | XMS_ITS | Encounter Summary ---
Author Organization [facility] Address [facility] [place] [address] Care Team Providers Care President Commercial Bank Name Role Phone Guerline Quigley Rodolfo VALDES Primary Care Provider [phone] Encounter Details Date Type Department Care Team (Late st Contact Info) Description 07/18/2023 Telephone Cardiology at [address] [place] [address] Liam Noel MD [facility] [place] [address] Social History Tobacco Use Types Packs/Day Years [...] Telephone Encounter - Ashlyn Celis, RN - 07/18/2023 10:12 AM EST Yessenia called in to ask If she must take the metoprolol every day or can she skip a day and take 6 doses a week instead of 7 Reminder that for her next appointment the cholesterol and uric acid lab work orders should [facility] documented in this encounter Plan of Treatment Upcoming Encounters Date Type Department Care Team (Late st Contact Info) Description 03/13/2024 9:45 AM EDT Office Visit Dermatology at [place] [address] [facility] [place] [address] Emiliano Salinas MD [address] [facility] [address] [address], MANINDER [place]hat[place] [address] documented as of this encounter Visit Diagnoses Diagnosis Mixed hyperlipidemia documented in this encounter Care Teams President Commercial Bank Relationship Specialty Start Date End Date Guerline Quigley APRN PCP - General Family Medicine 03/18/23 09/29/23 documented as of this encounter
--- OUTSIDE RECORDS SUMMARY | 2024-02-20 13:37 | XMS_ITS | Encounter Summary ---
Author Organization [facility] [place] [address] Care Team Providers Care Correctional Nurse Name Role Phone Dana Cedillo DO Primary Care Provider [phone]- [phone] Encounter Details Date Type Department Care Team [...] 9:45 AM EDT Office Visit Dermatology at [place] [address] [place] [address] Emiliano Salinas MD [address] [facility] [address], BAKARI [place] [address] documented as of this encounter Visit Diagnoses Not on filedocumented in this encounter Care Teams Correctional Nurse Relationship Specialty Start Date End Date Dana Cedillo DO [address] [place] [address] PCP - General Family Medicine 10/16/23 documented as of this encounter
--- OUTSIDE RECORDS SUMMARY | 2024-02-20 13:37 | XMS_ITS | Encounter Summary ---
Author Organization [facility] [place] [address] Care Team Providers Care Analytics Specialist Name Role Phone Guerline Quigley KEISHA Primary Care Provider [phone] Encounter Details Date Type Department Care Team (Late st Contact Info) Description 09/30/2023 Orders Only Cardiology at [address] [place] [address] Liam Noel MD [facility] [place] [place] [address] Mixed hyperlipidemia Social History Tobacco Use Types [...] AM EDT Office Visit Dermatology at [address] [place] [address] Emiliano Salinas MD [address] [facility] [address], [place] [address] documented as of this encounter Visit Diagnoses Diagnosis Mixed hyperlipidemia documented in this encounter Care Teams Analytics Specialist Relationship Specialty Start Date End Date Guerline Quigley APRN PCP - General Family Medicine 09/30/23 10/15/23 documented as of this encounter
--- OUTSIDE RECORDS SUMMARY | 2024-02-20 13:37 | XMS_ITS | Referral Summary ---
Author Organization [facility] Address [address] [place] [address] Care Team Providers Care Tape Calender Name Role Phone Unavailable Primary Care Provider Unavailabl e Encounters Date Type Department Care Team Description 02/16/2024 Lab Requisition [facility] Pathology & Laboratory Medicine - [facility] [address] [place] [address] Outr Resulting Lab, Provider from Last 3 [...] 150 - 1,150 mOsm/kg 02/16/2024 16:18 EDT [facility] Urine URINE / Unknown 02/15/2024 1 8:30 EDT 02/16/2024 16:07 EDT Provider Outr Resulting Lab URINALYSIS O RDERABLES [facility] [address] [place] [address] * HEPATITIS C AB W REFLEX TO HCV RNA BY PCR (11/04/2020 14:37 EDT) Hep C Antibody Negative Negative 11/07/2020 10:56 EDT [facility] Blood VENOUS BLOOD / Unknown 11/04/2020 14:37 EDT 11/04/2020 21:45 EDT Provider Outr Resulting Lab CHEMISTRY & BLOOD GAS ORDERABLES [facility] [address] [place] [address] from Last 3 Months or Most Recently Relevant to Health Maintenance
--- OUTSIDE RECORDS SUMMARY | 2024-02-20 13:37 | XMS_ITS | Encounter Summary ---
Author Organization [facility] [place] [address] Care Team Providers Care Computer Designer Name Role Phone Dana Cedillo Primary Care Provider [phone]- [phone] Encounter Details Date Type Department Care Team (Late st Contact Info) Description 01/28/2024 Orders Only Cardiology at [address] [place] [address] Liam Noel MD [facility] [place] [address] Mixed hyperlipidemia Social History Tobacco Use Types [...] AM EDT Office Visit Dermatology at [address] [place] [address] Emiliano Salinas MD [address] [facility] [address], [place] [address] Scheduled Orders Name Type Priority Associated Diagnoses Orde r Schedule Lipid Panel (Reflex Direct LDL) Lab Routine Mixed hyperlipidemia Expected: 01/28/2024, Expires: 01/27/2025 Uric acid Lab Routine Mixed hyperlipidemia Expected: 01/28/2024, Expires: 07/29/2024 documented as of this encounter Visit Diagnoses Diagnosis Mixed hyperlipidemia documented in this encounter Care Teams Computer Designer Relationship Specialty Start Date End Date Dana Cedillo DO [address] [facility] [place] [address] PCP - General Family Medicine 10/16/23 documented as of this encounter
--- OUTSIDE RECORDS SUMMARY | 2024-02-20 13:37 | XMS_ITS | Encounter Summary ---
Author Organization [facility] [place] [address] Care Team Providers Care Marketing Performance Analyst Name Role Phone Guerline Quigley KEISHA Primary Care Provider [phone] Encounter Details Date Type Department Care Team (Late st Contact Info) Description 06/19/2023 Orders Only Cardiology at [address] [place] [address] Liam Noel MD [facility] [place] [address] Mixed hyperlipidemia; Chronic urticaria; Hypothyroidism, unspecified type [...] 9:45 AM EDT Office Visit Dermatology at [address] [place] [address] Emiliano Salinas MD [address] [facility], [place] [address] documented as of this encounter Visit Diagnoses Diagnosis Mixed hyperlipidemia Chronic urticaria Other specified urticaria Hypothyroidism, unspecified type documented in this encounter Care Teams Marketing Performance Analyst Relationship Specialty Start Date End Date Guerline Quigley APRN PCP - General Family Medicine 03/18/23 09/29/23 documented as of this encounter
--- OUTSIDE RECORDS SUMMARY | 2024-02-20 13:37 | XMS_ITS | Encounter Summary ---
Author Organization [facility] Address [address] [place] [address] Care Team Providers Care Undercover Operator Name Role Phone Unavailable Primary Care Provider Unavailabl e Encounter Details Date Type Department Care Team (Late st Contact Info) Description 08/05/2023 Lab Requisition [facility] Pathology & Laboratory Medicine - [facility] [address] [place] [address] Outr Resulting Lab, Provider Social History Tobacco [...] Urine 7.4 See Note mg/dL 08/06/2023 9:08 [facility] Comment: NOTE: Reference range not established Calcium, Urine 24 hr 287 100 - 300 mg/24hr 08/06/2023 9:08 [facility] Comment:Reference range assu mes a normal daily intake of calcium between 600 - 800 mg/day. Urine Volume 3,875 mL 08/06/2023 9:08 [facility] Urine Collection Period 24.0 Hours 08/06/2023 9:08 [facility] Urine 24 HOUR URINE SPECIMEN / Unknown 08/05/2023 8:00 EST 08/05/2023 21:36 EST Provider Outr Resulting Lab URINALYSIS O RDERABLES [facility] [address] [place] [address] documented in this encounter Visit Diagnoses Not on filedocumented in this encounter
--- OUTSIDE RECORDS SUMMARY | 2024-02-20 13:37 | XMS_ITS | Encounter Summary ---
Author Organization [facility] [place] [address] Care Team Providers Care Stitch Wheeler Name Role Phone Guerline Quigley Rodolfo VALDES Primary Care Provider [phone] Encounter Details Date Type Department Care Team (Late st Contact Info) Description 09/30/2023 Telephone Cardiology at [address] [place] [address] Liam Noel MD [facility] [address] Social History Tobacco Use Types Packs/Day Years [...] 9:45 AM EDT Office Visit Dermatology at [place] [address] [facility] [place] [address] Emiliano Salinas MD [address] [facility] [address], MANIND[place] [address] documented as of this encounter Visit Diagnoses Not on filedocumented in this encounter Care Teams Stitch Wheeler Relationship Specialty Start Date End Date Guerline Quigley APRN PCP - General Family Medicine 09/30/23 10/15/23 documented as of this encounter
--- OUTSIDE RECORDS SUMMARY | 2024-02-20 13:37 | XMS_ITS | Encounter Summary ---
Author Organization [facility] [place] [address] Care Team Providers Care Radius Grinder Name Role Phone Guerline Quigley Rodolfo VALDES Primary Care Provider [phone] Encounter Details Date Type Department Care Team (Late st Contact Info) Description 07/16/2023 Telephone Cardiology at [address] [place] [address] Liam Noel MD [facility] [place] [address] Social History Tobacco Use Types Packs/Day Years [...] due malaise and brain fog Current plan: crane rigger will treat her osteopenia with a new [...] the medication? Please call her back @ [phone] documented in this encounter Plan of Treatment Upcoming Encounters Date Type Department Care Team (Late st Contact Info) Description 03/13/2024 9:45 AM EDT Office Visit Dermatology at [place] [address] [facility] [place] [address] Emiliano Salinas MD [address] [facility] [address], BAKARI [place] [address] documented as of this encounter Visit Diagnoses Not on filedocumented in this encounter Care Teams Radius Grinder Relationship Specialty Start Date End Date Guerline Quigley APRN PCP - General Family Medicine 03/18/23 09/29/23 documented as of this encounter
--- OUTSIDE RECORDS SUMMARY | 2024-02-20 13:37 | XMS_ITS | Encounter Summary ---
[place] [address] Care Team Providers Care Ground School Instructor Name Role Phone Guerline Quigley MACHINE DESIGN ENGINEER Primary Care Provider [phone] Encounter Details Date Type Department Care Team (Late st Contact Info) Description 08/02/2023 [place] [address] Luna Lazcano RN Social History Tobacco Use [...] 08/02/2023 10:43 AM EST Copied from CRM #[id number]. Topic: Specialty Dept CRMs - Generic Call [...] will be ordered requesting to send to [facility] - [address] [place] [address] phone -[phone], unable to provide fax. >> Aug 02, 2023 10:41 AM September R wrote: Patient called back in to let the office know her PCP is sending the T3 lab over to the office documented in this encounter Plan of Treatment Upcoming Encounters Date Type Department Care Team (Late st Contact Info) Description 03/13/2024 9:45 AM EDT Office Visit Dermatology at [place] [address] [facility] [place] [address] Emiliano Salinas MD [address] [facility] [address], [place] [address] documented as of this encounter Visit Diagnoses Not on filedocumented in this encounter Care Teams Ground School Instructor Relationship Specialty Start Date End Date Guerline Quigley APRN PCP - General Family Medicine 03/18/23 09/29/23 documented as of this encounter
--- OUTSIDE RECORDS SUMMARY | 2024-02-20 13:37 | XMS_ITS | Encounter Summary ---
Author Organization [facility] [place] [address] Care Team Providers Care Supervisor Pigment Making Name Role Phone Guerline Quigley APRN Primary Care Provider [phone] Encounter Details Date Type Department Care Team [...] 9:45 AM EDT Office Visit Dermatology at [place] [address] [place] [address] Emiliano Salinas MD [address] [facility] [address], [place] [address] documented as of this encounter Visit Diagnoses Not on filedocumented in this encounter Care Teams Supervisor Pigment Making Relationship Specialty Start Date End Date Guerline Quigley APRN PCP - General Family Medicine 03/18/23 09/29/23 documented as of this encounter
--- OUTSIDE RECORDS SUMMARY | 2024-02-20 13:37 | XMS_ITS | Encounter Summary ---
Author Organization [facility] [place] [address] Care Team Providers Care Mail Truck Driver Name Role Phone Dana Cedillo DO Primary Care Provider [phone] Encounter Details Date Type Department Care Team (Late st Contact Info) Description 09/30/2023 11:00 AM EDT Office [place] [address] Sam Dawson MD [facility] [place] [address] Pathological fracture of left foot due to [...] and urine test in 1 month at [place] - once I get the results we will decide how much Ca and vit D to take - DXA scheduling at [facility] [phone] documented in this encounter Progress Notes * [...] [x] 701-900 mg [] 901-1100 mg [] 4936-5215 mg [] 6214-0838 mg [] Above 1500 mg ROS: Constitutional: [...] WITH FOOD fluticasone propionate (Flonase) 50 mcg/actuation [place], Suspension Every 12 hours. 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 [...] 1.07 mmol/L 0.82 Last DXA scan 12/27/2022 ([facility]): Assessment: Yessenia Luong is a 73 [...] bone density scan to be done at [facility] where we can do a TBS score [...] and urine test in 1 month at [place] Orders Placed This Encounter Procedures DXA Central Spine, Hip, and/or Whole Body (Generic) Calcium, urine, 24 hour Creatinine, urine, 24 hour Vitamin D, 25-Hydroxy PTH Albumin Level Calcium - DXA scan with TBS score to be done at [facility] - once I get the results we [...] 9:45 AM EDT Office Visit Dermatology at [place] [address] [facility] [place] [address] Emiliano Salinas MD [address], [place] [address] Scheduled Orders Name Type Priority Associated Diagnoses [...] Whole Body (Generic) (10/18/2023 10:49 AM EDT) [employer] WORKSTATION ID [id number] RAD Anatomical Region Laterality Modality C-spine, Hip [...] BMD measurements and plots are available in [employer] under the imaging tab. Paper copies will be sent to providers without [employer] access. If you have received this report without the data sheet and do not have access to [employer], please contact [facility]iology [facility] at [phone] Saturday thru Saturday 8am-4pm. ? Bone Density Report ? Name: ?Yessenia Luong Age: ? 73 Sex: ? Female Ethnicity: ? White Date of : 1950 Referring Provider: SAM DAWSON Study: Bone densitometry was performed. Model: ConnectSoft Nova (S/N [id number]) SW version 13.6.0.5 Exam Date: October 18, 2023 Accession number: [id number] Bone Density: Region ? BMD ?T-score ??Z-score [...] who have questions please contact the health medical care manager that requested your imaging first. ? Narrative [...] left forearm and left hip using the Cel-Fi by [employer] Horizon A system. COMPARISON: None FINDINGS: Femoral [...] BMD measurements and plots are available in [employer] the imaging tab. Paper copies will be sent to providers without [employer] access.If you have received this report without the data sheet and do not haveaccess to [employer], please contact [facility] at [phone] Saturday thruFriday 8am-4pm. Bone Density Report Name: Yessenia Luong Age: 73 Sex: Female Ethnicity: White Date of : 1950 Referring Provider: SAM DAWSON Study: Bone densitometry was performed. Model: IsoPlexis (S/N [id number]) SW version 13.6.0.5 Exam Date: October 18, 2023 Accession number: [id number] Bone Density: Region BMD T-score Z-score AP [...] patients who have questions please contactthe health medical care manager that requested your imaging first. 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
--- OUTSIDE RECORDS SUMMARY | 2024-02-20 13:37 | XMS_ITS | Encounter Summary ---
Author Organization [facility] [place] [address] Care Team Providers Care Plug Cutting Machine Operator Name Role Phone Dana Cedillo DO Primary Care Provider [phone]- [phone] Encounter Details Date Type Department Care Team (Late st Contact Info) Description 01/09/2024 Telephone Cardiology at [address] [place] [address] Liam Noel MD [facility] [place] [address] Social History Tobacco Use Types Packs/Day Years [...] were not included. Heart and Vascular Clinics [facility] [address] [place] [address] [place] [address] Yessenia called provide message for Dr. Noel [...] Dr. Chapa is a Naturopathy provider at [facility] Medicine [address] [facility], [place], [place] [id number] documented in this encounter Plan of Treatment Upcoming Encounters Date Type Department Care Team (Late st Contact Info) Description 03/13/2024 9:45 AM EDT Office Visit Dermatology at [address] [place] [address] Emiliano Salinas MD [address] [place] [address], [facility] [place] [address] documented as of this encounter Visit Diagnoses Not on filedocumented in this encounter Care Teams Plug Cutting Machine Operator Relationship Specialty Start Date End Date Dana Cedillo DO [address] [place] [address] PCP - General Family Medicine 10/16/23 documented as of this encounter
--- OUTSIDE RECORDS SUMMARY | 2024-02-20 13:37 | XMS_ITS | Encounter Summary ---
Author Organization [facility] Address [address] [place] [address] Care Team Providers Care Signalling And Communications Engineer Name Role Phone Chantell Sharma NP Primary Care Provider [phone] Elier Alvarez MD Unavailable Unavailabl e Reason for Visit * Reason Onset Date Comments Other 07/21/2015 Encounter Details Date Type Department Care Team (Late st Contact Info) Description 07/21/2015 Telephone [facility] Dermatology 3rd Floor [facility] [address] [place] [address] Isaak Lloyd MD Other Social History Tobacco [...] on filedocumented in this encounter Care Teams Signalling And Communications Engineer Relationship Specialty Start Date End Date Chantell Sharma NP PCP - General 07/21/15 07/21/15 Elier Alvarez MD 07/21/15 07/21/15 documented as of this encounter
--- OUTSIDE RECORDS SUMMARY | 2024-02-20 13:37 | XMS_ITS | Clinical Summary ---
Author Organization [facility] [place] [address] Care Team Providers Care Apparel Stock Checker Name Role Phone Everardorubio Dana Mery ROCHE Primary Care Provider +1- [phone] Allergies Active Allergy Reactions Criticality Noted Date [...] 10/21/2022 Active fluticasone propionate (Flonase) 50 mcg/actuation [place], Suspension Every 12 hours. 10/17/2020 Ac tive [...] Care Team Description 02/13/2024 Telephone Cardiology at [address] [address] Liam Noel MD 02/08/2024 Refill Cardiology at [address] [address] Liam Noel MD Medication Refill 02/07/2024 Telephone Cardiology at [address] [address] Ashlyn Celis RN 02/06/2024 Travel 02/04/2024 Transcribe Orders Neurosurgery at [facility] [place] [address] Nell Fitch DO 01/28/2024 Orders Only Cardiology at [address] [address] Liam Noel MD Mixed hyperlipidemia 01/23/2024 Telephone Cardiology at [address] [address] Liam Noel MD 01/23/2024 Telephone Cardiology at [address] [address] Liam Noel MD 01/22/2024 4:00 PM EDT TH Visit (TeleHealth) Endocrinology at [place] [phone] Sam Dawson MD Hypercalciuria 01/09/2024 Tele[place] [address] Raeann Ortega RN 01/09/2024 Telephone Cardiology at [address] [address] Liam Noel MD 11/26/2023 Tele[place] [address] Raeann Ortega, RN Other from [...] 9:45 AM EDT Office Visit Dermatology at [place] [address] [facility] [place] [address] Emiliano Salinas MD [address], BAKARI [place] [address] Health Maintenance Due Date Last Done Comments [...] Comments LAB SCAN 01/28/2024 12:00 AM EDT DXA CENTRAL SPINE, HIP, AND/OR WHOLE BODY (GENERIC) Routine 10/18/2023 10:49 AM EDT 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 Scanning Provider MEDIA MGR SCAN EXT O RDR/RSLT * DXA Central Spine, Hip, and/or Whole Body (Generic) (10/18/2023 10:49 AM EDT) [employer] WORKSTATION ID [id number] RAD Anatomical Region Laterality Modality C-spine, Hip [...] BMD measurements and plots are available in bVisual under the imaging tab. Paper copies will be sent to providers without bVisual access. If you have received this report without the data sheet and do not have access to bVisual, please contact Radiology Publications Production Supervisor at [phone] Saturday thru Saturday 8am-4pm. ? Bone Density Report ? Name: ?Yessenia Luong Age: ? 73 Sex: ? Female Ethnicity: ? White Date of : 1950 Referring Provider: SAM DAWSON Study: Bone densitometry was performed. Model: [employer] (S/N [id number]) 1000 Corks version 13.6.0.5 Exam Date: October 18, 2023 Accession number: [id number] Bone Density: Region ? BMD ?T-score ??Z-score [...] who have questions please contact the health care professionals that requested your imaging first. ? Narrative [...] left forearm and left hip using the kontoblick Horizon A system. COMPARISON: None FINDINGS: Femoral [...] spine, left forearm and lefthip using the HoloKayentis Horizon A system. COMPARISON: None FINDINGS: Femoral [...] BMD measurements and plots are available in E-Card Capture Servicesunder the imaging tab. Paper copies will be sent to providers without bVisual access.If you have received this report without the data sheet and do not haveaccess to EROLI, please contact Radiology Publications Production Supervisor at [phone] Saturday thruFriday 8am-4pm. Bone Density Report Name: Yessenia Luong Age: 73 Sex: Female Ethnicity: White Date of : 1950 Referring Provider: SAM DAWSON Study: Bone densitometry was performed. Model: [employer] (S/N [id number]) 1000 Corks version 13.6.0.5 Exam Date: October 18, 2023 Accession number: [id number] Bone Density: Region BMD T-score Z-score AP [...] patients who have questions please contactthe health care professionals that requested your imaging first. Sam Dawson MD IMG DEXA ORDERABLE S * Comprehensive metabolic panel (non-fasting) (07/30/2023 11:32 AM EST) Glucose 98 65 - 199 mg/dL [facility] Comment:Diabetes: >=200 mg/d L plus symptoms Blood Urea Nitrogen 10 8 - 18 mg/dL [facility] Creatinine 0.75 0.70 - 1.20 mg/dL [facility] Sodium 140 135 - 145 mmol/L [facility] Potassium 4.6 3.5 - 5.0 mmol/L [facility] Comment: Please note: ??Patients with WBC >100,000 may have falsely elevated Potassium levels. ??For accurate Potassium quantification in these patients send serum separator tube (gold top) for subsequent determinations. ??Contact the Clinical Chemistry Laboratory if there are any questions. Chloride 101 98 - 107 mmol/L [facility] Carbon Dioxide 28 22 - 31 mmol/L [facility] Anion Gap 11 5 - 15 mmol/L [facility] Calcium 10.1 8.5 - 10.5 mg/dL [facility] Protein, Total 7.4 6.1 - 8.0 g/dL [facility] Albumin 4.5 3.2 - 5.2 g/dL [facility] Aspartate Aminotransferase 22 0 - 30 unit/L [facility] Alanine Aminotransferase 18 0 - 30 unit/L [facility] Alkaline Phosphatase 77 35 - 105 unit/L [facility] Bilirubin, Total 0.4 0.2 - 1.3 mg/dL [facility] Est Glomerular Filtration Rate 83 >=60 mL/min/1. 73 m?? [facility] Comment: This patient's estimated GFR was [...] Lab Sam Dawson MD CHEMISTRY ORDERABL ES [facility] [address] from Last 3 Months or Most Recently Relevant to Health Maintenance Advance Directives * Full Code (Latest Code Status on File) Date Activated Date Inactivated Comments 06/14/2015 4:01 PM 06/15/2015 7:08 PM Question Answer Comments Does patient have capacity to make decision: Yes Care Teams Apparel Stock Checker Relationship Specialty Start Date End Date Dana Cedillo DO [address] [place] [address] PCP - General Family Medicine 10/16/23
--- OUTSIDE RECORDS SUMMARY | 2024-02-20 13:37 | XMS_ITS | Encounter Summary ---
Author Organization [facility] Address [facility] [place] [address] Care Team Providers Care High Lift Driver Name Role Phone Dana Cedillo DO Primary Care Provider +1- [phone] Encounter Details Date Type Department Care Team (Latest Contact Info) Description 10/18/2023 9:58 AM EDT - 10/18/2023 11:59 PM EDT Hospital Encounter Mammography/[place] [address] Sam Dawson MD [facility] [place] [address] Pathological fracture of left foot due to [...] FOOD 10/21/2022 fluticasone propionate (Flonase) 50 mcg/actuation [place], Suspension Every 12 hours. 10/17/2020 meloxicam (Mobic) [...] 9:45 AM EDT Office Visit Dermatology at [place] [address] [facility] [place] [phone] Emiliano Salinas MD [address] [facility] [address], MANINDER [place] [address] documented as of this encounter Procedures Procedure Name Priority Date/Time Associated Diagnosis Comments DXA CENTRAL SPINE, HIP, AND/OR WHOLE BODY (GENERIC) Routine 10/18/2023 10:49 AM EDT 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, subsequent encounter documented in this encounter Results * DXA Central Spine, Hip, and/or Whole Body (Generic) (10/18/2023 10:49 AM EDT) Hypertension Diagnostics WORKSTATION ID [id number] [facility] Anatomical Region Laterality Modality C-spine, Hip [...] sheet and do not have access to [employer], please contact Radiology Cash Register Balancer at [phone] Saturday thru Saturday 8am-4pm. ? Bone Density Report ? Name: ?Yessenia Luong Age: ? 73 Sex: ? Female Ethnicity: ? White Date of : 1950 Referring Provider: SAM DAWSON Study: Bone densitometry was performed. Model: Metranome A (S/N [id number]) SW version 13.6.0.5 Exam Date: October 18, 2023 Accession number: [id number] Bone Density: Region ? BMD ?T-score ??Z-score [...] who have questions please contact the health child care center assistant director that requested your imaging first. ? Electronically signed by: Luna [place] MD, [facility] ([phone]), at 10/18/2023 1:08 PM Narrative 10/18/2023 1:08 [...] BMD measurements and plots are available in [email or web address] the imaging tab. Paper copies will be sent to providers without [email or web address] access.If you have received this report without the data sheet and do not haveaccess to [email or web address], please contact Radiology Cash Register Balancer at [phone] Saturday 8am-4pm. Bone Density Report Name: Yessenia Luong Age: 73 Sex: Female Ethnicity: White Date of : 1950 Referring Provider: SAM DAWSON Study: Bone densitometry was performed. Model: Malachi Bhatt (S/N 405622V) version 13.6.0.5 Exam Date: October 18, 2023 Accession number: [id number] Bone Density: Region BMD T-score Z-score AP [...] patients who have questions please contactthe health child care center assistant director that requested your imaging first. Electronically signed by: Luna [place] MD, [facility]([phone]), at 10/18/2023 1:08 PM Sam Dawson MD IMG DEXA ORDERABLE S documented in this encounter Visit Diagnoses Diagnosis 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, subsequent encounter documented in this encounter Care Teams High Lift Driver Relationship Specialty Start Date End Date Dana Cedillo DO [address] [place] [address] PCP - General Family Medicine 10/16/23 documented as of this encounter
--- OUTSIDE RECORDS SUMMARY | 2024-02-20 13:37 | XMS_ITS | Encounter Summary ---
Author Organization [facility] [place] [address] Care Team Providers Care Rn Radiation Oncology Name Role Phone Dana Cedillo Primary Care Provider +1- [phone] Encounter Details Date Type Department Care Team (Late st Contact Info) Description 10/30/2023 Telephone [place] [address] Luna Lazcano RN Social History Tobacco Use [...] 10/30/2023 2:33 PM EDT Copied from CRM #[id number]. Topic: Specialty Dept CRMs - Medication Issues [...] 9:45 AM EDT Office Visit Dermatology at [place] [address] [facility] [place] [address] Emiliano Salinas MD [address], BAKAR[place] [address] documented as of this encounter Visit Diagnoses Not on filedocumented in this encounter Care Teams Rn Radiation Oncology Relationship Specialty Start Date End Date Dana Cedillo DO [address] [place] [address] PCP - General Family Medicine 10/16/23 documented as of this encounter
--- OUTSIDE RECORDS SUMMARY | 2024-02-20 13:37 | XMS_ITS | Encounter Summary ---
Author Organization [facility] Address [address] [place] [address] Care Team Providers Care Application Security Specialist Name Role Phone Unavailable Primary Care Provider Unavailabl e Encounter Details Date Type Department Care Team (Late st Contact Info) Description 06/04/2023 Lab Requisition [facility] Pathology & Laboratory Medicine - [address] [address] Outr Resulting Lab, Provider Social History Tobacco [...] 201 - 352 mg/dL 06/05/2023 8:[address] [facility] Blood VENOUS BLOOD / Unknown 06/04/2023 9:45 EST 06/04/2023 21:09 EST Provider Outr Resulting Lab CHEMISTRY & BLOOD GAS ORDERABLES [facility] [address] [place] [address] documented in this encounter Visit Diagnoses Not on filedocumented in this encounter
--- OUTSIDE RECORDS SUMMARY | 2024-02-20 13:37 | XMS_ITS | Encounter Summary ---
[place] [address] Care Team Providers Care Gallery Assistant Name Role Phone CésarDana hamm Mery ROCHE Primary Care Provider +1- [phone] Encounter Details Date Type Department Care Team (Late st Contact Info) Description 11/05/2023 [place] [address] Raeann Ortega RN Social History Tobacco Use [...] - 11/05/2023 12:03 PM EDT Copied from [facility] #[id number]. Topic: Specialty Dept CRMs - Medication Issues [...] 9:45 AM EDT Office Visit Dermatology at [place] [address] [facility] [place] [address] Emiliano Salinas MD [address], [place] [address] documented as of this encounter Visit Diagnoses Not on filedocumented in this encounter Care Teams Gallery Assistant Relationship Specialty Start Date End Date Dana Cedillo DO [address] [place] [address] PCP - General Family Medicine 10/16/23 documented as of this encounter
--- OUTSIDE RECORDS SUMMARY | 2024-02-20 13:37 | XMS_ITS | Encounter Summary ---
Author Organization [facility] [place] [address] Care Team Providers Care Supervisor Paper Testing Name Role Phone CésarDana hamm Mery ROCHE Primary Care Provider +1- [phone] Encounter Details Date Type Department Care Team (Late st Contact Info) Description 02/04/2024 Transcribe Orders Neurosurgery at [facility] [address] [place] [address] [facility] [address] [place] [address] Social History Tobacco Use Types Packs/Day Years [...] AM EDT Office Visit Dermatology at [address] [place] [address] Emiliano Salinas MD [address], [place] [address] documented as of this encounter Visit Diagnoses Not on filedocumented in this encounter Care Teams Supervisor Paper Testing Relationship Specialty Start Date End Date Dana Cedillo DO [address] [place] [address] PCP - General Family Medicine 10/16/23 documented as of this encounter
--- OUTSIDE RECORDS SUMMARY | 2024-02-20 13:37 | XMS_ITS | Encounter Summary ---
Author Organization [facility] [place] [address] Care Team Providers Care Software Support Analyst Name Role Phone Dana Cedillo DO Primary Care Provider +1- [phone] Encounter Details Date Type Department Care Team [...] 9:45 AM EDT Office Visit Dermatology at [place] [address] [place] [address] Emiliano Salinas MD [address], BAKAR[place] [address] documented as of this encounter Visit Diagnoses Not on filedocumented in this encounter Care Teams Software Support Analyst Relationship Specialty Start Date End Date Dana Cedillo DO [address] [place] [address] PCP - General Family Medicine 10/16/23 documented as of this encounter
--- OUTSIDE RECORDS SUMMARY | 2024-02-20 13:37 | XMS_ITS | Encounter Summary ---
[place] [address] Care Team Providers Care Dog Daycare Provider Name Role Phone Dana Cedillo DO Primary Care Provider +1- [phone] Reason for Visit * Reason Onset Date Comments Other 11/26/2023 Encounter Details Date Type Department Care Team (Late st Contact Info) Description 11/26/2023 [place] [address] Raeann Ortega, RN Other Social History Tobacco [...] 11/26/2023 9:30 AM EDT Copied from CRM #[id number]. Topic: Specialty Dept CRMs - Test Results >> Nov 25, 2023 10:00 AM Susan Muller wrote: Test Results Request Specialist: Virginia Everett MD Relationship (if other than patient-full name): Self Ordering Provider: Virginia Everett MD Type of Test: 24 Urine test Date of Test: 11/18/23 Where Was This Test Performed: [facility] Patient will be available after 1pm today. Please call back to discuss. documented in this encounter Plan of Treatment Upcoming Encounters Date Type Department Care Team (Late st Contact Info) Description 03/13/2024 9:45 AM EDT Office Visit Dermatology at [place] [address] [place] [address] Emiliano Salinas MD [address], [place] [address] documented as of this encounter Visit Diagnoses Not on filedocumented in this encounter Care Teams Dog Daycare Provider Relationship Specialty Start Date End Date Dana Cedillo DO [address] [place] [address] PCP - General Family Medicine 10/16/23 documented as of this encounter
--- OUTSIDE RECORDS SUMMARY | 2024-02-20 13:37 | XMS_ITS | Data Portability ---
Author Organization [facility] Address [address] [place] [address] Care Team Providers Care High Heel Builder Name Role Phone KENN BRENNER Primary Care Provider [phone] Assessment No assessment recorded. Plan of Treatment Reminders Order Date Submit Date Provider Last Modified By Organization Details Last Modified Time Details Appointments None recorded. Lab uric acid, serum or plasma 2022 023 [email or web address] [facility] (Registration ), [address] [place] [address] [place], [address], 3 11:14:57 CBC 2022 023 [email or web address] [facility] (Registration ), [address] [place] [address] [place], [address], 3 16:52:11 iron + total iron-bindin g capacity (TIBC), serum 2022 023 [facility] (Registration ), [address] [place] [address] [place], [address], 4 13:59:15 transferrin , serum 2022 023 [facility] (Registration ), [address] [place] [address] [place], [address], 4 13:59:16 ferritin, serum or plasma 2022 023 [email or web address] [facility] (Registration ), [address] [place] [address] [place], [address], 4 13:59:16 Referral physical therapist referral - For left foot pain? fracture, also chronic back pain 2022 023 [email or web address] [facility], [address] , [place], [address], 4 12:02:56 endocrinolo gy referral - help with thyroid and osteopenia 2022 023 [email or web address] [facility] , [address] [place] [address] [place], [address], 4 11:12:10 Procedures None recorded. Surgeries None recorded. Imaging XR, foot, 3 or more view - left foot: swelling, pain bruising r/o fx, Hx osteopenia 2022 023 [facility] (Radiology), [address] [place] [address] , [facility] [place], [address], 3 13:28:29 US, doppler, venous - r/o DVT Left leg, pain, swelling of foot w/o injury, pain in calf, no swelling, reccomended by cardiology 2022 023 [facility] (Radiology), [address] [place] [address] [place], [address], 3 16:48:48 Medication Orders Celebrex 50 mg capsule 2022 023 JAQUI [facility], [address] [place], [address], 3 09:34:55 Fosamax 70 mg tablet 2022 023 [facility], [address] [place], [address], 3 09:22:11 Calcium 600 + D(3) 600 mg-10 mcg (400 unit) tablet 2022 023 JAQUI [facility], [address] [place], [address], 3 09:22:13 Vitamin D3 25 mcg (1,000 unit) capsule 2022 023 JAQUI [facility], [address] [place], [address], 3 09:22:10 vitamin B complex tablet 2022 023 JAQUI [facility], [address] [place], [address], 09:26:38 Patient TargetsNo targets recorded. Patient Instructions Encounter Date Encounter Id Patient Instructions Last Modified By Organization Details Last Modified Time 05/21/2023 [id number] Yessenia Luong expect a call from [facility] re: Left foot xray and left calf US, hold Vyvanse, will check uric acid level today and blood counts- will mail home results, call if they are abnormal follow up at next appt upcoming, f/u on the phone after imaging Not available 05/21/2023 14:08:05 06/04/2023 [id number] Yessenia Moreland ; start fosamax for osteopenia, [...] for alternative options Referring Physician: Kenn Brenner [facility], Encounter Date: 07/04/2023 Urologist Referral for Urina ry incontinence Referring Physician: Kenn Brenner [facility], Encounter Date: 07/08/2023 Physical Therapist Referral for Vertigo UNDERWENT DIAGNOSTIC W/U THROUGH ED 08/27/23 Referring Physician: Julito Jorgensen [facility], Encounter Date: 08/28/2023 Results Created [...] ng/ml Toxic : >100 ng/ml Not Available [address] [place], [address] 05/17/2023 16:12:29 05/21/20 23 05/21/2023 COMPL ETE BLOOD COUNT NO DIFF WBC 6.05 10_3/ uL 4.4-10 .8 normal Not Available [address] [place], [address] 05/21/2023 16:52:11 05/21/20 23 05/21/2023 COMPL ETE BLOOD COUNT NO DIFF RBC 3.86 10_6/ uL 3.93-5 .22 low Not Available [address] [place], [address] 05/21/2023 16:52:11 05/21/20 23 05/21/2023 COMPL ETE BLOOD COUNT NO DIFF HGB 11.9 g/dL 11.2-1 5.7 normal Not Available [address] [place], [address] 05/21/2023 16:52:11 05/21/20 23 05/21/2023 COMPL ETE BLOOD COUNT NO DIFF HCT 35.6 % 36.0-4 6.0 low Not Available [address] [place], [address] 05/21/2023 16:52:11 05/21/20 23 05/21/2023 COMPL ETE BLOOD COUNT NO DIFF MCV 92 fL 80-95 normal Not Available [address] [place], [address] 05/21/2023 16:52:11 05/21/20 23 05/21/2023 COMPL ETE BLOOD COUNT NO DIFF MCH 30.8 pg 27.0-3 3.0 normal Not Available [address] [place], [address] 05/21/2023 16:52:11 05/21/20 23 05/21/2023 COMPL ETE BLOOD COUNT NO DIFF MCHC 33.4 % 32.0-3 6.0 normal Not Available [address] [place], [address] 05/21/2023 16:52:11 05/21/20 23 05/21/2023 COMPL ETE BLOOD COUNT NO DIFF RDW 11.9 % 11.7-1 4.6 normal Not Available [address] [place], [address] 05/21/2023 16:52:11 05/21/20 23 05/21/2023 COMPL ETE BLOOD COUNT NO DIFF platelet count 413 10_3/ uL 130-40 0 high Not Available [address] [place], [address] 05/21/2023 16:52:11 05/21/20 23 05/21/2023 COMPL ETE BLOOD COUNT NO DIFF MPV 9.7 fL 8.0-11 .0 normal Not Available [address] [place], [address] 05/21/2023 16:52:11 05/21/20 23 05/21/2023 URIC ACID uric acid 5.7 mg/dL 2.6-6. 0 normal Not Available [address] [place], [address] 05/21/2023 18:59:20 06/04/20 23 06/04/2023 IRON/ IBCT iron 72 ug/dL 50-170 normal Not Available Dinorah tucker [address] [place], [address] 06/04/2023 17:30:26 06/04/20 23 06/04/2023 IRON/ IBCT total iron binding capacity 312 ug/dL 250-45 0 normal Not Available [address] [place], [address] 06/04/2023 17:30:26 06/04/20 23 06/04/2023 IRON/ IBCT transferrin sat 23 % 15-50 normal Not Available Nathalia gabriel [address] [place], [address] 06/04/2023 17:30:26 06/04/20 23 06/04/2023 OMID TIN ferritin 121 NG/mL 8-252 normal Not Available [address] [place], [address] 06/04/2023 18:08:25 06/04/20 23 06/05/2023 TRANS OMID N transferrin 248 mg/dL 201-35 2 Test perfo rmed or refer red by [facility] [address] [place] [address] Not Available [address] [place], [address] 06/05/2023 09:19:24 08/05/19 24 08/05/2023 CREAT ININE 24 HR URINE total volume 3785 mL Not Available [address] [place], [address] 08/05/2023 16:14:10 08/05/19 24 08/05/2023 CREAT ININE 24 HR URINE creatinine,u rine 14.37 mg/dL No Refer ence Range estab lishe d Not Available [address] [place], [address] 08/05/2023 16:14:10 08/05/19 24 08/05/2023 CREAT ININE 24 HR URINE creatinine,2 4HR ur 0.53 g/24H R 0.60-1 .80 low Not Available [address] [place], [address] 08/05/2023 16:14:10 08/05/19 24 08/06/2023 CALCI UM URINE 24HR calcium urine 7.4 mg/dL see note NOTE: Refer ence range not estab lishe d Not Available [address] [place], [address] 08/06/2023 11:23:36 08/05/19 24 08/06/2023 CALCI UM URINE 24HR calcium urine 24 HR 287 mg/24 HR 100-30 0 Refer ence range assum es a dirk l daily intak e of calci um betwe en 600 - 800 mg/da y. Not Available [address] [place], [address] 08/06/2023 11:23:36 08/05/19 24 08/06/2023 CALCI UM URINE 24HR urine collection period 24.0 hours Test perfo rmed or refer red by [facility] [address] [place] [address] Not Available [address] [place], [address] 08/06/2023 11:23:36 08/05/19 24 08/06/2023 CALCI UM URINE 24HR timed urine volume 3875 mL Not Available [address] [place], [address] 08/06/2023 11:23:36 05/22/20 23 05/22/2023 ultra sound imagi ng repor t Patitracie t Name: Gaby Leonel neal Mamie Unit #: [id number] Loc: DI Orderi ng Provid er: Eileen Brenner Accoun t #: [id number] Status : REG CLI Primar y [...] tation , and color Dopple r. The service desk director ior tibial veins are patent . No [...] you. [email or web address] [facility] [address], [place], [address] 05/22/2023 12:00:16 05/22/2005/22/2023 XR, foot, 3 or more view No observ ation record ed. the Not Available 2022 13:49:53 05/22/20 23 05/22/2023 x-ray imagi balaji Bae t Name: Leonel Pandya Unit #: [id number] Loc: DI Rigo carpio Provid er: Eileen Brenner Accoun t #: [id number] Status : REG CLI Primar y [...] at the addres s above. Thank- you. [email or web address] [facility] [address] [place], [address] 05/23/2023 10:27:45 05/28/20 23 05/28/2023 x-ray imagi ng repor t Catalino brantley Name: Leonel Pandya Unit #: [id number] Loc: SUNG Orderi ng Provid er: Timur Salgado M.D. Accoun t #: [id number] Status : REG CLI Primar y Care [...] s above. Thank- you. [facility] [address] [place], [address] 05/28/2023 12:22:46 07/16/19 24 07/16/2023 x-ray imagi ng repor t Patitracie t Name: Leonel Pandya Unit #: [id number] Loc: DIORS Orderi ng Provid er: Timur Salgado M.D. Accoun t #: [id number] Status : REG CLI Primar y Care [...] error, please notify us immedi ately at [phone] and return the origin al report to us at the addres s above. Thank- you. [facility] [address], [place], [address] 07/16/2023 13:27:22 09/18/19 24 09/18/2023 x-ray imagi ng joya brantley Name: Leonel Pandya Unit #: [id number] Loc: DIORS Orderi ng Provid er: Timur Salgado M.D. Accoun t #: [id number] Status : REG CLI Primar y Care [...] at the addres s above. Thank- you. [email or web address] [place] [address], [place], [address] 09/19/2023 09:19:37 12/02/19 24 05/28/2023 x-ray imagi ng repor t Patitracie t Name: Leonel Pandya Unit #: [id number] Loc: DIORS Orderi ng Provid er: Timur Salgado M.D. Accoun t #: [id number] Status : DEP CLI Primar y Care [...] error, please notify us immedi ately at [phone] and return the origin al report to us at the addres s above. Thank- you. [email or web address] [facility] [address], [place], [address] 12/06/2023 17:22:48 Result Notes None recorded. Problems Name Problem SNOMED Code Status Onset Date Resolution Date Notes Provider Name and Address Organization Details Recorded Time Obesity 876829834 Active 200803/02/20 20 - Comments only - Juan Smith MD - Had good effect with just naltrexo ne even without bupropri on. I'm willing to represcr aki this. Problem Code: E66.9; Problem Code Type: ICD-10; Not Available [facility] 3 03:58:41 Major depressi on, single episode 88979490 Active 200907/19/19 21 - Comments only - Juan Smith MD - symptoms mild but persiste nt. She would like to try SSRI again, try sertrlin e and follow. Problem Code: F32.9; Problem Code Type: ICD-10; Not Available [facility] 3 03:58:41 Anxiety disorder 191266124 Active 200711/20/19 20 - Comments only - Geri Soares BODY DESIGN CHECKER - increase d due to COVID-19 . Encourag ed continue d yoga, mindfuln ess techniqu es such as meditati on, and aromathe rapy with lavendar oil before bedtime to help wind down the mind and body. Problem Code: F41.9; Problem Code Type: ICD-10; Not Available [facility] 3 03:58:42 Pure hypercho lesterol emia 367540310 Active 200711/02/19 21 - Comments only - Juan Smith MD - Reviewed cardiolo gy notes. LDL much better with med combinat ion, discusse d she should take the highest doses she can tolerate . Problem Code: E78.0; Problem Code Type: ICD-10; Not Available [facility] 3 03:58:42 Allergic rhinitis 16030495 Active 199804/14/20 18 - Comments only - Juan Smith MD - Seeing allergis t. Had liver testing in June and was normal. I don't think itching related to liver. Problem Code: J30.9; Problem Code Type: ICD-10; Not Available [facility] 3 03:58:42 Insomnia 848164908 Active 200906/16/19 20 - Comments only - Juan Smith MD - Getting to sleep well and sleeping 9 hours, try cutting back trazodon e. Problem Code: G47.00; Problem Code Type: ICD-10; Not Available [facility] 3 03:58:42 Obstruct aide sleep apnea syndrome 91565640 Active 201104/02/20 17 - Comments only - Juan Smith MD - getting fitted for oral applianc e with dentist in [place]. Problem Code: G47.33; Problem Code Type: ICD-10; Not Available [facility] 3 03:58:42 Hypothyr oidism 92603039 Active 201403/02/20 20 - Comments only - Juan Smith MD - on 50mcg LT4, recheck TSH/refl ex today Problem Code: E03.9; Problem Code Type: ICD-10; Not Available [facility] 3 03:58:42 History of nutritio nal disorder 245339305 Active 2014 Not Available [facility] 3 03:58:42 Heart murmur 32212362 Active 2014 Problem Code: R01.1; Problem Code Type: ICD-10; Not Available [facility] 3 03:58:42 Restless legs 09908090 Active 2014 Problem Code: G25.81; Problem Code Type: ICD-10; Not Available [facility] 3 03:58:42 Cosmetic surgery Completed 201508/26/2015 Problem Code: Z41.1; Problem Code Type: ICD-10; Not Available [facility] 3 03:58:42 Increase d frequenc y of urinatio n 107278495 Completed 201510/18/2015 Problem Code: R35.0; Problem Code Type: ICD-10; Not Available [facility] 3 03:58:43 History and physical examinat ion, administ ratishivani Completed 201512/08/2015 Problem Code: Z02.89; Problem Code Type: ICD-10; Not Available [facility] 3 03:58:43 Disorder associat ed with menstrua tion AND/OR menopaus e 807736571 Active 201502/20/20 18 - Comments only - Juan Smith MD - Would like to use premarin cream. Has used very similar products in past. Reviewed risks includin g endometr ial cancer and blood clots and possibly [place], though risk low. She would like to try. Problem Code: N95.9; Problem Code Type: ICD-10; Not Available [facility] 3 03:58:43 Chronic allergic otitis media 06190743 Active 201604/02/20 17 - Comments only - Juan Smith MD - Refilled ofloxaci n in case infectio n recurs while in remote setting. Has worked in past Problem Code: H65.419; Problem Code Type: ICD-10; Not Available [facility] 3 03:58:43 Motion sickness 60132514 Active 201602/14/20 17 - Comments only - Juan Smith MD - Going on cruise. Can use scopolam ine patch. Discusse d ADRs. Problem Code: T75.3xxS ; Problem Code Type: ICD-10; Not Available [facility] 3 03:58:43 Pain of joint of knee 1448486545 Active 201603/02/20 20 - Comments only - Juan Smith MD - likely OA, assess with XR, consider ortho if severe. PT if patient willing. Problem Code: M25.569; Problem Code Type: ICD-10; Not Available [facility] 3 03:58:43 Urge incontin ence of urine 39778433 Active 201707/19/19 21 - Comments only - Juan Smith MD - Improved with tolterid ine and topical estrogen . Discusse d antichol inergic ADRs, she plans to try to come off tolterid ine after another month. Problem Code: N39.41; Problem Code Type: ICD-10; Not Available [facility] 3 03:58:43 Diarrhea 37842455 Active 201806/16/19 20 - Comments only - Juan Smith MD - Intermit tent symptoms , not severe. I'm not sure O&P would be producti ve at this point unless symptoms worsen Not Available [facility] 3 03:58:43 Vitamin D deficien cy 17567359 Active 201803/02/20 20 - Comments only - Juan Smith MD - recheck with labs. Problem Code: E55.9; Problem Code Type: ICD-10; Not Available [facility] 3 03:58:44 Fatigue 18734291 Active 201803/19/20 19 - Comments only - [...] R53.83; Problem Code Type: ICD-10; Not Available [facility] 3 03:58:44 Gastroes ophageal reflux disease without esophagi tis 122469907 Active 201906/16/19 20 - Comments only - Juan Smith MD - mild symptoms , discusse d managmen t options Problem Code: K21.9; Problem Code Type: ICD-10; Not Available [facility] 3 03:58:44 Insect bite Completed 201911/21/2019 11/20/19 20 - Comments only - Geri Soares BODY DESIGN CHECKER - Possibly unattach ed tick; pt did not bring insect in to be examined (it flushed down the shower drain). Explaine d that this does not meet CDC guidelin es for Lyme prophyla xis (due to lack of engorged tick and timeline ). Pt agreeabl e. Not Available [facility] 3 03:58:44 Screenin g for malignan t neoplasm of breast Completed 201903/03/2020 Problem Code: Z12.39; Problem Code Type: ICD-10; Not Available [facility] 3 03:58:44 Spasm 25867756 Active 2019 Problem Code: R25.2; Problem Code Type: ICD-10; Not Available [facility] 3 03:58:44 Biceps tendinit is 708368796 Active 2019 Problem Code: M75.21; Problem Code Type: ICD-10; Not Available [facility] 3 03:58:44 Breast composit ion 304668738 Active 2019 Not Available [facility] 3 03:58:45 Idiopath ic osteoart hritis 174944798 Active 201907/19/19 21 - Comments only - Juan Smith MD - Offered surgery, we discusse d, she will f/u with Mary Ann. Problem Code: M18.11; Problem Code Type: ICD-10; Not Available [facility] 3 03:58:45 Anemia 938548618 Active 202011/02/19 21 - Comments only - Juan Smith MD - Discusse d. MCV high normal. Recent normal B12. Alcohol slightly higher than ideal levels, she will try to stop. High RDW could reflect reticulo cytosis, blood loss? Get iron levels and iFOB Problem Code: D64.9; Problem Code Type: ICD-10; Not Available [facility] 3 03:58:45 Adult health examinat ion Active 2020 Problem Code: Z00.00; Problem Code Type: ICD-10; Not Available [facility] 3 03:58:45 Calcium deposit in bursa 835846961 Active 202011/02/19 21 - Comments only - Juan Smith MD - We discusse d her calcium levels have been normal, calcium dopositi on is typicall y a result of inflamma tion rather than the cause. Given her concern, will get ionized calcium to varify she doesn't have high circulat ing calcium. Problem Code: M71.40; Problem Code Type: ICD-10; Not Available [facility] 3 03:58:45 Spinal stenosis 97384313 Active 2022 Problem Code: M48.00; Problem Code Type: ICD-10; Not Available [facility] 3 03:58:45 History of infectio us disease 371358450 Active 2022 Problem Code: Z86.19; Problem Code Type: ICD-10; Not Available [facility] 3 03:58:46 Bone density finding 202797816 Active 2022 Problem Code: M85.80; Problem Code Type: ICD-10; Not Available [facility] 3 03:58:46 Pain in finger 57422813 Active 2022 Problem Code: M79.646; Problem Code Type: ICD-10; Not Available [facility] 3 03:58:46 [place] ht 806140034 Completed 201402/24/2016 Problem Code: E66.3; Problem Code Type: ICD-10; Not Available [facility] 3 03:58:48 Cellulit is of left upper limb 36486649550 949652 Completed 201803/06/2023 11/27/19 19 - Comments only - Juan Smith MD - Most c/w bacteria l cellulit is with some tracking up arm, but acute lyme in DDX as may have started with tick bite. Will cover with doxycycl ine x 2 weeks in case, RTC if not improvin g. Problem Code: L03.114; Problem Code Type: ICD-10; Not Available [facility] 3 03:58:48 Allergic rhinitis 89636169 Completed 200704/16/2016 Not Available [facility] 3 03:58:48 Anxiety state 808997700 Completed 200703/06/2023 Not Available [facility] 3 03:58:49 Screenin g for disorder Completed 201703/18/2019 Problem Code: Z13.9; Problem Code Type: ICD-10; Not Available [facility] 3 03:58:49 Mixed hyperlip idemia 343853044 Completed 200702/24/2016 Problem Code: E78.2; Problem Code Type: ICD-10; Not Available [facility] 3 03:58:49 Gastriti s 7381113 Completed 201809/01/2018 Problem Code: K29.70; Problem Code Type: ICD-10; Not Available [facility] 3 03:58:49 Cataract 741706016 Completed 201809/01/2018 Problem Code: H26.9; Problem Code Type: ICD-10; Not Available [facility] 3 03:58:50 Acute sinusiti s 23522158 Completed 201809/05/2018 Problem Code: J01.90; Problem Code Type: ICD-10; Not Available [facility] 3 03:58:51 Screenin g for malignan t neoplasm of colon Completed 201803/19/2019 Problem Code: Z12.11; Problem Code Type: ICD-10; Not Available [facility] 3 03:58:51 Pre-surg norberto evaluati on Completed 201402/24/2016 Problem Code: Z01.818; Problem Code Type: ICD-10; Not Available [facility] 3 03:58:51 Allergic disposit ion 602859708 Completed 199803/06/2023 Not Available [facility] 3 03:58:52 Generali zed hyperhid rosis 613565600 Completed 201402/24/2016 Problem Code: R61; Problem Code Type: ICD-10; Not Available [facility] 3 03:58:52 Dyspnea 217710290 Completed 201706/16/2018 Problem Code: R06.02; Problem Code Type: ICD-10; Not Available [facility] 3 03:58:52 Pain in finger 30408306 Completed 201903/06/2023 Problem Code: M79.646; Problem Code Type: ICD-10; Not Available [facility] 3 03:58:53 Disorder of hematopo ietic structur e 918343612 Completed 202003/06/2023 Problem Code: D75.89; Problem Code Type: ICD-10; Not Available [facility] 3 03:58:53 Dyspnea 062905581 Completed 201504/02/2017 Problem Code: R06.02; Problem Code Type: ICD-10; Not Available [facility] 3 03:58:53 Hypertro phy of breast 412865722 Completed 201402/24/2016 Problem Code: N62; Problem Code Type: ICD-10; Not Available [facility] 3 03:58:54 Pain in thoracic spine 653657543 Completed 201402/24/2016 Problem Code: M54.9; Problem Code Type: ICD-10; Not Available [facility] 3 03:58:54 Cough 66034052 Completed 201402/24/2016 Problem Code: R05; Problem Code Type: ICD-10; Not Available [facility] 3 03:58:55 Localize d eruption of skin 057188177 Completed 201803/02/2020 Problem Code: R21; Problem Code Type: ICD-10; Not Available [facility] 3 03:58:55 Nausea 333837850 Completed 201402/24/2016 Problem Code: R11.0; Problem Code Type: ICD-10; Not Available [facility] 3 03:58:55 Neck pain 95618211 Completed 201402/24/2016 Problem Code: M54.2; Problem Code Type: ICD-10; Not Available [facility] 3 03:58:56 Depressi ve disorder 51628075 Completed 200903/06/2023 Problem Code: 311; Problem Code Type: ICD-9; Not Available [facility] 3 03:58:57 Worried well 94788825 Completed 200802/24/2016 Not Available [facility] 3 03:58:57 Notes:*Problem Name: H/o Ane marybeth *ICD-10 Codes: *Problem Status: inactive *Comments: *Note Date: 10/08/1998 *Problem Name: H/o Anemia *ICD-10 Codes: *Problem Status: inactive *Comments: *Problem Code Type: CPT *Note Date: 10/08/1998 Problem Notes Documentation Provider Name and Address Organization Details Recorded Time Physical Therapist Consult Note : Physical Therapy Initial Eval PATIENT NAME: Yessenia Luong UNIT #: [id number] ADMITTING PROVIDER: ALENA SIMON PT, DPT PRIMARY CARE PROVIDER: Kenn Brenner ADMIT: 09/24/23 : 1950 Supervising Provider: Alena Simon PT Diagnosis: unilateral vestibular dysfunction, imbalance MD Diagnosis: gait imbalance, vertigo Weeks Elapsed: week(s) and 0 day(s) Patient Location: Physical Therapy - [facility] Referring Provider: Ted Corrales MD [...] She states that she was vacationing in [place] for the month of August, and had [...] saccades noted 3/3 trials? Postural Stability/VSR Testing: [place] Sensory Organization Performance Test for Vestibulopathy: (+) [...] treatment planning, with patient verbalizing agreement. IE:??? [id number] Neuromuscular Re-education ([id number]): Vestibular Rehabilitation Training (VRT): Access Code: [email or web address] URL: [email or web address] Date: 09/24/2023 Prepared by: Alena Simon Exercises [...] 5. dysfunction of VSR as indicated by [place] SOP Impairments are contributing to the following functional limitations: 1. dizziness when getting out of bed 2. decreased balance when turning head while walking 3. fear avoidance behaviors 4. sensation of dysequilibrium 5. fear of falling Patient is assessed as:??? Moderate 14341?complexity, based on the following: History: (list):??? Patient [...] PT, DPT, A[facility] All Active Problems (Updated 09/11/23 @ 12:28 [...] in error, please notify us immediately at [phone] and return the original report to us at the address above. Thank you. KENN solitario [facility]. 09/25/2023 15:44:20 Procedures Surgical History None recorded. Imaging Results Imaging Date Name Status LastModified by Organiz ation Details LastModified Time 05/22/2023 ultrasound imaging report completed the6 [address] [place], [address] 05/22/2023 12:00:16 05/22/2023 XR, foot, 3 or more view completed the6 Information not available 05/22/2023 13:49:53 05/22/2023 x-ray imaging report completed [id number] [address] [place], [address] 05/23/2023 10:27:45 05/28/2023 x-ray imaging report completed the6 [address] [place], [address] 05/28/2023 12:22:46 07/16/2023 x-ray imaging report completed the6 [address] [place], [address] 07/16/2023 13:27:22 09/18/2023 x-ray imaging report completed the6 [address] [place], [address] 09/19/2023 09:19:37 05/28/2023 x-ray imaging report completed [email or web address] [address] [place], [address] 12/06/2023 17:22:48 Procedure Notes None recorded. Medical Equipment None Reported. Allergies Allergen ID Allergen Name Allergen Category Reaction Reaction Severity Criticality Documentation Date Start Date Code Code System Note Provider Name and Address Organization Details Recorded Time wasp venoms environme nt swelling moderate Not available 04/19/20232005 49407 RxNorm swell ing Aller gyNam e: 'BEE STING S'; Not Available [facility] 16:07:24 92915 Bactrim medicatio n Not available Not available Not available 04/19/20232005 96956 9 RxNorm Not Available [facility] 3 16:07:25 93585 sulfasala zine Not available Not available Not available Not available 04/19/20232011 9524 RxNorm Not Available [facility] 3 16:07:25 54093 simvastat in medicatio n myalgias (muscle pain) moderate Not available 04/19/20232006 00622 RxNorm muscl e pain Aller gyRea ction : 'musc le pain' ; Not Available [facility] 3 16:07:25 75574 atorvasta tin calcium medicatio n myalgias (muscle pain) moderate Not available 04/19/20232006 99717 RxNorm muscl e pain Aller gyRea ction : 'musc le pain' ; Not Available [facility] 3 16:07:25 95010 fenofibra te medicatio n other mild Not available 04/19/20232015 8703 RxNorm Stoma ch upset Aller gyRea ction : 'Stom ach upset '; Not Available [facility] 3 16:07:25 64079 Augmentin medicatio n nausea mild Not available 04/19/20232014 19351 2 RxNorm nause a Not Available [facility] 3 16:07:25 77961 Crestor medicatio n myalgias (muscle pain) moderate Not available 04/19/20232006 27093 4 RxNorm muscl e pain Aller gyRea ction : 'musc le pain' ; Not Available [facility] 3 16:07:25 27123 morphine sulfate medicatio n diarrhea mild Not available 04/19/20232013 67469 RxNorm diarr hea Not Available [facility] 3 16:07:26 04131 Voltaren medicatio n other mild Not available 04/19/20232011 00486 6 RxNorm GI Aller gyRea ction : 'GI'; Aller gyCod e: '2420 60759 05'; Aller gyNam e: 'VOLT AREN' ; Aller gyCon ceptT ype: 'NDC' ; Not Available [facility] 3 16:07:26 Medications Name Sig Start Date [...] Available Not Available Not Avai lable azithromy latosah 250 mg tablet Take 2 by mouth [...] Not Available Not Available No t Available [facility] Thyroid 30 mg tablet Take 1 tab [...] No t Available Nasonex 50 mcg/actua tion [place] 2 sprays daily 02/23 completed Not Available [...] completed Not Available Not Available Not Available [facility] 32.5 mg tablet Take 1 tab [...] Not Available Not Available [facility]ific[facility] l Tears ([id number] promell-g lycerin) 1 %-0.2 %-0.2 % eye [...] mm[Hg] 82 mm[Hg] ULICES DE LEÓN LPN [facility] 05/21/2023 13:43:07 Date Recorded Body height Heart rate Systolic blood pressure Diastolic blood pressure Provider Name and Address Organization Details Last Updated DateTime 06/04/2023 160.528 cm 80 /min 130 mm[Hg] 82 mm[Hg] ULICES DE LEÓN LPN [facility] 06/04/2023 09:01:33 Social History None recorded. Functional [...] adolescent or pediatric 04/02/2017 completed Not Available [facility] 04/19/2023 05:31:57 Hep A-Hep B 11/15/2014 completed Not Available [facility] 04/19/2023 05:31:58 Tdap 07/02/2016 completed Not Available [facility] 05:31:58 Tdap 10/15/2016 completed Not Available [facility] 05:31:58 Tdap 11/27/2021 completed Not Available [facility] 05:31:58 Tdap 02/19/2018 completed Not Available [facility] 05:31:58 zoster live 06/16/2018 completed Not Available [facility] 04/19/2023 05:31:58 zoster live 10/15/2016 completed Not Available [facility] 04/19/2023 05:31:58 zoster live 06/06/2016 completed Not Available [facility] 04/19/2023 05:31:58 Pneumococcal conjugate PCV 13 11/15/2014 completed Not Available [facility] 04/19/2023 05:31:59 Influenza, split virus, trivalent, preservative 04/11/2015 completed Not Available [facility] 04/19/2023 05:31:59 Influenza, split virus, quadrivalent, preservative 04/02/2017 completed Not Available [facility] 04/19/2023 05:31:59 zoster recombinant 02/19/2018 completed Not Available [facility] 04/19/2023 05:31:59 Influenza, high-dose, quadrivalent, PF 03/07/2020 completed Not Available [facility] 04/19/2023 05:31:59 Influenza, high-dose, quadrivalent, PF 03/16/2022 completed Not Available [facility] 04/19/2023 05:31:59 COVID-19, mRNA, LNP-S, PF, 100 mcg/0.5mL dose or 50 mcg/0.25mL dose 08/03/2020 completed Not Available [facility] 04/19/2023 05:31:59 COVID-19, mRNA, LNP-S, PF, 100 mcg/0.5mL dose or 50 mcg/0.25mL dose 08/31/2020 completed Not Available [facility] 04/19/2023 05:31:59 COVID-19, mRNA, LNP-S, PF, 100 mcg/0.5mL dose or 50 mcg/0.25mL dose 09/20/2021 completed Not Available [facility] 04/19/2023 05:32:00 typhoid, oral 04/13/2017 completed Not Available [facility] 04/19/2023 05:32:00 pneumococcal polysaccharide PPV23 10/15/2016 completed Not Available [facility] 2022 05:32:00 pneumococcal polysaccharide PPV23 06/06/2016 completed Not Available [facility] 2022 05:32:00 Hep B, adult 06/17/2019 completed Not Available [facility] 04/19/2023 05:32:00 Hep A, adult 04/02/2017 completed Not Available [facility] 04/19/2023 05:32:00 influenza, unspecified formulation 03/23/2019 completed Not Available [facility] 04/19/2023 05:32:00 influenza, unspecified formulation 04/18/2021 completed Not Available [facility] 04/19/2023 05:32:00 Influenza, high-dose, quadrivalent, PF 03/20/2023 completed Not Available [facility] 06/21/2023 05:31:41 SARS-COV-2 (COVID-19) vaccine, UNSPECIFIED 04/09/2023 completed Not Available [facility] 06/21/2023 05:31:42 Past Encounters Encounter ID Performer Location Encounter Start Date Encounter Closed Date Diagnosis/Indication Diagnosis SNOMED-CT Code Diagnosis ICD10 Code [id number] [facility] [address] [place] [address] 05/21/2023 13:20:46 05/21/2023 14:24:08 Swelling of left foot 592635146 M79.89 Easy bruising 264026875 R58 [id number] [facility] [address] [place] [address] 06/04/2023 08:49:20 06/04/2023 10:30:49 Pain in left foot 5770070089 71312 M79.672 Osteopenia 193577988 M85 .80 Hypothyroidism 29268823 E03.9 Idiopathic osteoarthritis 717041465 M19.91 Fatigue 07315347 R53.83 Health Concerns Section Related Observation LastModified by Organization Detai ls LastModified Time None Recorded Concern Status LastModified by Organization Details LastModified Time None Recorded Advance Directives Directive None Recorded Payers Encounter Date Sequence Insurance Name Policy Number Policy Hendrix Covered Member ID Hendrix Member ID Guarantor Name 05/21/2023 1 [id number]AGE - PPO) [id number] Eyssenia S Kitchel [id number] Yessenia S Kitchel 06/04/2023 1 [place] - [place]) [id number] Yessenia S Kitchel [id number] Yessenia S Kitchel Notes Date Note Type Note Provider Name and Address Organization Details Recorded Time 05/21/2023 text/html HPI Notes: 73-year-old woman here for multiple complaints She developed left foot bruising, swelling and pain 1 week following a steroid injection that she had in her back? given to her by a provider at [facility] for chronic back pain. She was seen by her physical therapist as she thought it was plantar fasciitis they advised that she see her PCP. She called her bobj developer and they advised that she get a Doppler ultrasound to rule out a DVT. She denies shortness of breath, or any injury. Reports being very sedentary. No fever. Kenn solitario [facility]. 05/23/2023 13:18:31 06/04/2023 text/html HPI Notes: 73 yr old woman here for f/u L foot pain: originally seen 05/21/2023 at [facility] for multiple complaints : HX: She developed left foot bruising, swelling and pain 1 week following a steroid injection that she had in her back? given to her by a provider at [facility] for chronic back pain. She was seen by her physical therapist as she thought it was plantar fasciitis they advised that she see her PCP. She called her bobj developer and they advised that she get a [...] vitamin D. NABOR Irwin - [facility]. 06/04/2023 10:11:37 OBGyn Episode No OBEpisode recorded.
--- OUTSIDE RECORDS SUMMARY | 2024-02-20 13:37 | XMS_ITS | Encounter Summary ---
Author Organization [facility] Address [address] [place] [address] Care Team Providers Care Senior Application Programmer Name Role Phone Chantell Sharma NP Primary Care Provider [phone] Chantell Sharma NP Unavailable [phone] Encounter Details Date Type Department Care Team (Late st Contact Info) Description 11/04/2020 Lab Requisition [facility] Pathology & Laboratory Medicine - [address] [id number] Outr Resulting Lab, Provider Social History Tobacco [...] C Antibody Negative Negative 11/07/2020 10:56 EDT [facility] Blood VENOUS BLOOD / Unknown 11/04/2020 14:37 EDT 11/04/2020 21:45 EDT Provider Outr Resulting Lab CHEMISTRY & BLOOD GAS ORDERABLES [facility] [address] [place] [address] documented in this encounter Visit Diagnoses Not on filedocumented in this encounter Care Teams Senior Application Programmer Relationship Specialty Start Date End Date Chantell Sharma NP PCP - General 07/22/15 03/18/22 Chantell Sharma NP 07/22/15 03/18/22 documented as of this encounter
--- OUTSIDE RECORDS SUMMARY | 2024-02-20 13:37 | XMS_ITS | Encounter Summary ---
Author Organization [facility] Address [address] [place] [address] Care Team Providers Care Metal Hanger Name Role Phone Chantell Sharma STRUCTURAL STEEL PAINTER Primary Care Provider [phone] Chantell Sharma STRUCTURAL STEEL PAINTER Primary Care Provider [phone] Elier Alvarez MD Unavailable Unavailabl e Chantell Sharma NP Unavailable [phone] Reason for Visit * Reason Onset Date Comments Other 07/21/2015 Encounter Details Date Type Department Care Team (Late st Contact Info) Description 07/21/2015 Telephone [facility] Dermatology 3rd Floor [address] [address] Isaak Lloyd MD Other Social History Tobacco [...] on filedocumented in this encounter Care Teams Metal Hanger Relationship Specialty Start Date End Date Chantell Sharma NP PCP - General 07/21/15 07/21/15 Chantell Sharma NP PCP - General 07/22/15 03/18/22 Elier Alvarez MD 07/21/15 07/21/15 Chantell Sharma NP 07/22/15 03/18/22 documented as of this encounter
--- OUTSIDE RECORDS SUMMARY | 2024-02-20 13:37 | XMS_ITS | Encounter Summary ---
Author Organization [facility] [place] [address] Care Team Providers Care Beef Farmer Name Role Phone Dana Cedillo DO Primary Care Provider [phone] Encounter Details Date Type Department Care Team (Late st Contact Info) Description 01/23/2024 Telephone Cardiology at [address] [place] [address] Liam Noel MD [facility] [place] [address] Social History Tobacco Use Types Packs/Day Years [...] Per Yessenia she is seeing aphysician in [facility] for her Lyme disease and she [...] 9:45 AM EDT Office Visit Dermatology at [place] [address] [place] [address] Emiliano Salinas MD [address], [place] [address] documented as of this encounter Visit Diagnoses Not on filedocumented in this encounter Care Teams Beef Farmer Relationship Specialty Start Date End Date Dana Cdeillo DO [address] [place] [address] PCP - General Family Medicine 10/16/23 documented as of this encounter
--- OUTSIDE RECORDS SUMMARY | 2024-02-20 13:37 | XMS_ITS | Encounter Summary ---
Author Organization Health system Address [address] [place] [address] Care Team Providers Care Perinatal Breastfeeding Assistant Name Role Phone Chantell Sharma NP Primary Care Provider [phone] Chantell Sharma TIRE MAINTENANCE TECHNICIAN Unavailable [phone] Encounter Details Date Type Department Care Team (Late st Contact Info) Description 06/19/2019 Lab Requisition [facility] Pathology & Laboratory Medicine - [address] [address] Unknown, Provider, Social History Tobacco Use Types [...] ova and parasites seen. 06/22/2019 11:21 EST [facility] Feces 06/19/2019 8:00 EST 06/19/2019 21:45 EST Narrative [facility] - 06/22/2019 11:21 EST (If Cryptosporidium, Cyclospora, or Microsporidium are suspected, specific tests must be requested.) Single negative specimen does not rule out the possibility of a parasitic infection. Provider Unknown MICROBIOLOGY - GIRMA AZEVEDO ORDERABLES [facility] [address] [place] [address] documented in this encounter Visit Diagnoses Not on filedocumented in this encounter Care Teams Perinatal Breastfeeding Assistant Relationship Specialty Start Date End Date Chantell Sharma NP PCP - General 07/22/15 03/18/22 Chantell Sharma NP 07/22/15 03/18/22 documented as of this encounter
--- OUTSIDE RECORDS SUMMARY | 2024-02-20 13:37 | XMS_ITS | Encounter Summary ---
Author Organization [facility] [place] [address] Care Team Providers Care Telecom Manager Name Role Phone Nguyen Danarebecca Ordonez DO Primary Care Provider [phone] Encounter Details Date Type Department Care Team (Late st Contact Info) Description 10/18/2023 [place] [address] Virginia Everett MD [facility] [place] [address] Social History Tobacco Use Types Packs/Day Years [...] 9:45 AM EDT Office Visit Dermatology at [place] [address] [place] [address] Emiliano Salinas MD [address], [place] [address] documented as of this encounter Visit Diagnoses Not on filedocumented in this encounter Care Teams Telecom Manager Relationship Specialty Start Date End Date Dana Cedillo DO [address] [place] [address] PCP - General Family Medicine 10/16/23 documented as of this encounter
--- OUTSIDE RECORDS SUMMARY | 2024-02-20 13:37 | XMS_ITS | Encounter Summary ---
Author Organization [facility] [place] [address] Care Team Providers Care Curing Machine Operator Name Role Phone Nguyen Danarebecca Ordonez DO Primary Care Provider [phone] Encounter Details Date Type Department Care Team (Late st Contact Info) Description 01/22/2024 4:00 PM EDT TH Visit (TeleHealth) [place] [address] Virginia Everett MD [facility] [place] [address] Hypercalciuria Social History Tobacco Use Types Packs/Day [...] show osteoporosis. I repeated DXA scan at [facility] and it showed normalBMD confirmed by TBS [...] [x] 701-900 mg [] 901-1100 mg [] 2476-8960 mg [] 8891-0743 mg [] Above 1500 mg ROS: Constitutional: [...] WITH FOOD fluticasone propionate (Flonase) 50 mcg/actuation [place], Suspension Every 12 hours. 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 [...] scan with TBS score DXA scan 12/27/2022 ([facility]): Assessment: Yessenia Luong is a 73 y.o. female with PMH of HLD, THERESA, OA, asthma, hypothyroidism, osteopenia and unprovoked, non-traumatic left 2nd metatarsal fracture. Her DXA scan from 12/2022 showed osteopenia but repeated DXA scan done at [facility] with TBS scoring it was confirmed she [...] Level - labs to be sent to [place] - continue vit D - not [...] Office Visit Dermatology at [place] [address] [place] [address] Emiliano Salinas MD [address], [place] [address] Scheduled Orders Name Type Priority Associated Diagnoses Orde r Schedule PTH Lab Routine Hypercalciuria Expected: 05/02/2024 (Approximate), Expires: 01/30/2025 Calcium Lab Routine Hypercalciuria Expected: 05/02/2024 (Approximate), Expires: 01/30/2025 Albumin Level Lab Routine Hypercalciuria Expected: 05/02/2024, Expires: 11/01/2024 documented as of this encounter Visit Diagnoses Diagnosis Hypercalciuria Unspecified disorders of calcium metabolism documented in this encounter Care Teams Curing Machine Operator Relationship Specialty Start Date End Date Dana Cedillo DO [address] [place] [address] PCP - General Family Medicine 10/16/23 documented as of this encounter
--- OUTSIDE RECORDS SUMMARY | 2024-02-20 13:37 | XMS_ITS | Encounter Summary ---
Author Organization [facility] [place] [address] Care Team Providers Care Head Piece Assembler Name Role Phone Dana Cedillo Primary Care Provider [phone] Encounter Details Date Type Department Care Team (Late st Contact Info) Description 01/09/2024 Telephone [place] [address] Raeann Ortega, RN Social History Tobacco Use [...] 9:45 AM EDT Office Visit Dermatology at [address] [place] [address] Emiliano Salinas MD [address], [place] [address] documented as of this encounter Visit Diagnoses Not on filedocumented in this encounter Care Teams Head Piece Assembler Relationship Specialty Start Date End Date Dana Cedillo DO [address] [place] [address] PCP - General Family Medicine 10/16/23 documented as of this encounter
--- OUTSIDE RECORDS SUMMARY | 2024-02-20 13:37 | XMS_ITS | Encounter Summary ---
Author [facility] [place] [address] Care Team Providers Care Drug Regulatory Affairs Specialist Name Role Phone Guerline Quigley 3RD GRADE TEACHER Primary Care Provider [phone] Encounter Details Date Type Department Care Team (Late st Contact Info) Description 07/30/2023 Telephone [place] [address] Luna Lazcano RN Social History Tobacco Use [...] - 07/30/2023 1:48 PM EST Copied from [facility] #[id number]. Topic: Specialty Dept CRMs - Generic Call [...] 9:45 AM EDT Office Visit Dermatology at [place] [address] [facility] [address] [place] [address] Emiliano Salinas MD [address] [facility], [place] [address] documented as of this encounter Visit Diagnoses Not on filedocumented in this encounter Care Teams Drug Regulatory Affairs Specialist Relationship Specialty Start Date End Date Guerline Quigley APRN PCP - General Family Medicine 03/18/23 09/29/23 documented as of this encounter
--- OUTSIDE RECORDS SUMMARY | 2024-02-20 13:37 | XMS_ITS | Encounter Summary ---
Author Organization [facility] [place] [place] [address] Care Team Providers Care Medical Social Worker Name Role Phone Guerline Quigley APRN Primary Care Provider [phone] Encounter Details Date Type Department Care Team [...] 9:45 AM EDT Office Visit Dermatology at [place] [address] [place] [address] Emiliano Salinas MD [address], [place] [address] documented as of this encounter Visit Diagnoses Not on filedocumented in this encounter Care Teams Medical Social Worker Relationship Specialty Start Date End Date Guerline Quigley APRN PCP - General Family Medicine 03/18/23 09/29/23 documented as of this encounter
--- OUTSIDE RECORDS SUMMARY | 2024-02-20 13:38 | XMS_ITS | Encounter Summary ---
Author Organization [facility] [place] [address] Care Team Providers Care Block Saw Operator Name Role Phone Veronica Barrios APRN Primary Care Provider Encounter Details Date Type Department Care Team (Late st Contact Info) Description 08/27/2022 Transcribe Orders eDH Incoming Referrals [phone] Veronica Barrios APRN [address] [place] [address] Social History Tobacco Use Types Packs/Day Years [...] 9:45 AM EDT Office Visit Dermatology at [place] [address] [facility] [place] [address] Emiliano Salinas MD [address] [facility], [place] [address] documented as of this encounter Visit Diagnoses Not on filedocumented in this encounter Care Teams Block Saw Operator Relationship Specialty Start Date End Date Veronica Barrios APRN [address] [place] [address] PCP - General Family Medicine 08/27/22 03/17/23 documented as of this encounter
--- OUTSIDE RECORDS SUMMARY | 2024-02-20 13:38 | XMS_ITS | Encounter Summary ---
Author Organization [facility] [place] [address] Care Team Providers Care Corporate Development Manager Name Role Phone Guerline Quigley PROGRAM MEDICAL DIRECTOR Primary Care Provider [phone] Encounter Details Date Type Department Care Team (Late st Contact Info) Description 03/18/2023 External Results Cardiology at [address] [address] Ashlyn Celis, RN Social History [...] 9:45 AM EDT Office Visit Dermatology at [address] [address] Emiliano Salinas MD 580 [facility] [place] [address] documented as of this encounter Procedures Procedure Name Priority Date/Time Associated Diagnosis Comments LIPID EXTERNAL LAB PANEL Routine 03/14/2023 10:00 AM EDT documented in this encounter Results * Lipid External Lab Panel (03/14/2023 10:00 AM EDT) Cholesterol, Total 280 [facility] Triglyceride 100 [facility] HDL Cholesterol 74 [facility] LDL Cholesterol 186.8 [facility] 03/14/2023 10:0 0 AM EDT Historical Provider EXTERNAL LAB HERMELINDA CURTIS [facility] [address] [place] [address], [facility] [phone] documented in this encounter Visit Diagnoses Not on filedocumented in this encounter Care Teams Corporate Development Manager Relationship Specialty Start Date End Date Guerline Quigley, PROGRAM MEDICAL DIRECTOR PCP - General Family Medicine 03/18/23 09/29/23 documented as of this encounter
--- OUTSIDE RECORDS SUMMARY | 2024-02-20 13:38 | XMS_ITS | Encounter Summary ---
Author Organization 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 ??She was in 2002 and has had a significant other for many years. ??Her significant other (Yoshalom Peterson) lives in [place].?She has??5??children and 3 biologic and 8 step??grandchildren. [...] azelastine (ASTELIN) 137 mcg (0.1 %) Aerosol, [place] 0 ??? PROVENTIL HFA 90 mcg/actuation HFA [...] Once daily ??? 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 Social [...] monitor liver function tests). Blood tests at [place] in about 6 weeks Time spent for this clinic appointment on the date of service includes: 25 minutes review of her chart and previous lipid evaluation and recommendations; 30 minutes agnn-[id number] and 10 minutes coordination of care 1) ezyd-sz-jglo counseling as noted above 2) reviewing past medical records, cardiac testing, results of laboratory testing 3) coordinating care with other physicians and allied health care providers Delfina Santiago MD, Vonnie, FACC, FNLA Attending Subject Scientific Research Sports Cardiology Program Preventive Cardiology Lipid Clinic Advanced Hypertension Clinic documented in this encounter Plan of Treatment Upcoming Encounters Date Type Department Care Team (Late st Contact Info) Description 03/13/2024 9:45 AM EDT Office Visit Dermatology at [place] [address] [facility] [place] [address] Emiliano Salinas MD [address], [place] [address] documented as of this encounter Results * Hepatic Function Panel (08/01/2022 7:52 AM EST) [facility] Protein, Total 7.1 6.1 - 8.0 g/dL [facility] Albumin 4.5 3.2 - 5.2 g/dL [facility] Aspartate Aminotransferase 19 0 - 30 unit/L [facility] Alanine Aminotransferase 18 0 - 30 unit/L [facility] Alkaline Phosphatase 75 35 - 105 unit/L [facility] Bilirubin, Total 0.4 0.2 - 1.3 mg/dL [facility] Bilirubin, Direct 0.1 0.0 - 0.3 mg/dL [facility] Blood 08/01/2022 7:52 AM EST 08/01/2022 8:07 AM EST Narrative Resulting Agency Comment Spec In Lab Delfina Santiago MD CHEMISTRY ORDERABLES [facility] [place] [address] * (ABNORMAL) Apolipoprotein B (08/01/2022 7:52 AM EST) [facility] Apolipoprotein B (OCTOBER) 169(H) mg/dL [facility] Comment: REFERENCE VALUE Desirable: <90 Above Desirable: 90-99 Borderline high: 100-119 High: 120-139 Very high: > or = 140 Test Performed by: [facility] - [address] [address] Spray Maker: Kyle Michel M.D. Ph.D.; CLIA# [id number] Blood 08/01/2022 7:52 AM EST 08/01/2022 12:39 PM EST Narrative Resulting Agency Comment Spec In Lab Delfina Santiago MD LAB SEND OUT ORDERAB LES Performing Organization Address City/State/[facility] Co de Phone Number [facility] [place] [address] * Lipid Panel (Reflex Direct LDL) (08/01/2022 7:52 AM EST) [facility] Cholesterol, Total 366 mg/dL [facility] Comment: Lower Risk: <200 mg/dL Average Risk: 200-239 mg/dL Higher Risk: >jo=117 mg/dL Triglyceride 195 mg/dL [facility] Comment: Average Risk/Lower Risk: <150 mg/dL Borderline High Risk: 150-199 mg/dL High Risk: 200-499 mg/dL Very High Risk: >gh=669 mg/dL HDL Cholesterol 91 mg/dL [facility] Comment: Males: ?? Higher Risk: <40 mg/dL Females: ?? Higher Risk: <50 mg/dL LDL Cholesterol 236 mg/dL [facility] Comment: Lowest Risk: <100 mg/dL Lower Risk: 100-129 mg/dL Borderline High Risk: 130-159 mg/dL High Risk: 160-189 mg/dL Very High Risk: >rj=086 mg/dL Cholesterol/HDL Ratio 4.0 ratio [facility] Lipid Interpretation See Note [facility] Comment: Lipid management should be guided by a patient? s ASCVD risk, goals and preferences. ACC/AHA Guidelines recommend high intensity statin if clinical ASCVD or LDL greater than or equal to 190 mg/dL. http://Quisic.com/KBM-KEN-Aopvyseiq Adults aged 40-75 with LDL 70-189 mg/dL should have their 10 year ASCVD risk estimated with the ACC/AHA ASCVD risk senior estimator http://tools.acc.org/YUVTU-Udmw-Bsdolhrbp/ Statin should be discussed if risk greater [...] City/State/[facility] Co de Phone Number [facility] [place] [address] documented in this encounter Visit Diagnoses Diagnosis Familial hypercholesterolemia Pure hypercholesterolemia THERESA (obstructive sleep apnea) Obstructive sleep apnea (adult) (pediatric) documented in this encounter Care Teams Collateral Specialist Relationship Specialty Start Date End Date Mary Altamirano MD PCP - General Family Medicine 01/26/22 08/26/22 documented as of this encounter
--- OUTSIDE RECORDS SUMMARY | 2024-02-20 13:38 | XMS_ITS | Encounter Summary ---
Author Organization [facility] [place] [address] Care Team Providers Care Professor Of Communication And Writing Name Role Phone Veronica Barrios APRN Primary Care Provider [phone] Encounter Details Date Type Department Care Team [...] 9:45 AM EDT Office Visit Dermatology at [place] [address] [place] [address] Emiliano Salinas MD [address], BAKARI [place] [address] documented as of this encounter Visit Diagnoses Not on filedocumented in this encounter Care Teams Professor Of Communication And Writing Relationship Specialty Start Date End Date Veronica Barrios APRN [address] [place] [address] PCP - General Family Medicine 08/27/22 03/17/23 documented as of this encounter
--- OUTSIDE RECORDS SUMMARY | 2024-02-20 13:38 | XMS_ITS | Encounter Summary ---
Author Organization [facility] [place] [address] Care Team Providers Care Duplicating Machine Operator Name Role Phone MeiVeronica olvera Liyah VALDES Primary Care Provider Encounter Details Date Type Department Care Team (Late st Contact Info) Description 08/27/2022 Telephone Cardiology at [address] [place] [address] Liam Noel MD [facility] [place] [address] Social History Tobacco Use Types Packs/Day Years [...] as Dr Santiago is no longer at [facility] [place] [place]. Return call to Yessenia voice message left [...] and she should hear back from someone. [phone] documented in this encounter Plan of Treatment Upcoming Encounters Date Type Department Care Team (Late st Contact Info) Description 03/13/2024 9:45 AM EDT Office Visit Dermatology at [address] [place] [address] Emiliano Salinas MD 580 [facility], [place]AR[place] [address] documented as of this encounter Visit Diagnoses Not on filedocumented in this encounter Care Teams Duplicating Machine Operator Relationship Specialty Start Date End Date Veronica Barrios APRN [address] [place] [address] PCP - General Family Medicine 08/27/22 03/17/23 documented as of this encounter
--- OUTSIDE RECORDS SUMMARY | 2024-02-20 13:38 | XMS_ITS | Encounter Summary ---
Author Organization [facility] [place] [address] Care Team Providers Care Workers Compensation Claims Specialist Name Role Phone Mary Altamirano MD Primary Care Provider Reason for Visit * Reason Onset Date Comments Referral 08/22/2022 Encounter Details Date Type Department Care Team (Late st Contact Info) Description 08/22/2022 Telephone Cardiology at [address] [address] Ashlyn Celis, siebel crm developer Social History Tobacco Use Types Packs/Day [...] EDT Yessenia has been with Cardiology in [place]. Last appointment was July. Next appointment is due in November and she prefers to transfer cardiology care to a textbook associate in the [facility] Cardiology clinic. Request: PCP to confirm that transfer of cardiology care to the closer provider is an appropriate referral. This clinic can accommodate a new appointment in November. documented in this encounter Plan of Treatment Upcoming Encounters Date Type Department Care Team (Late st Contact Info) Description 03/13/2024 9:45 AM EDT Office Visit Dermatology at [place] [address] [facility] [place] [address] Emiliano Salinas MD [address], [place] [address] documented as of this encounter Visit Diagnoses Not on filedocumented in this encounter Care Teams Workers Compensation Claims Specialist Relationship Specialty Start Date End Date Mary Altamirano MD PCP - General Family Medicine 01/26/22 08/26/22 documented as of this encounter
--- OUTSIDE RECORDS SUMMARY | 2024-02-20 13:38 | XMS_ITS | Encounter Summary ---
Author Organization [facility] [place] [address] Care Team Providers Care Heel Nail Rasper Name Role Phone Mary Altamirano MD Primary Care Provider Encounter Details Date Type Department Care Team (Latest Contact Info) Description 06/15/2022 2:00 PM EST TH Visit (TeleHealth) Cardiology at [address] [address] Derick Acosta, CHARU [facility] [place] [address] Nutritional counseling Social History Tobacco Use Types [...] Vascular Center Cardiovascular Medicine Cardiology Nutrition [facility] [place] [address] , #2 eFax: 06/15/22 Identification Yessenia Luong is a 72 y.o. patient of Mary Campbell MD referred to Cardiology Dietitian Screen Printing Inspector By Delfina Santiago MD, Lipidologist, for nutrition management of familial hypercholesterolemia in the setting of statin and PCSK9 intolerance. Yessenia is known to me from 2019 when I worked with her initially for the same condition. 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 Today's visit started after a 45-minute delay; patient's telephone went to [employer] at the time of our scheduled telephone visit; [facility], then [...] counseling and coaching. cc: Mary Campbell MD [address] [place] [address] / [facility] [address] documented in this encounter Plan of Treatment Upcoming Encounters Date Type Department Care Team (Late st Contact Info) Description 03/13/2024 9:45 AM EDT Office Visit Dermatology at [address] [address] Emiliano Salinas MD [address] [place] [address], [facility] [place] [address] documented as of this encounter Visit Diagnoses Diagnosis Nutritional counseling documented in this encounter Care Teams Heel Nail Rasper Relationship Specialty Start Date End Date Mary Altamirano MD PCP - General Family Medicine 01/26/22 08/26/22 documented as of this encounter
--- OUTSIDE RECORDS SUMMARY | 2024-02-20 13:38 | XMS_ITS | Encounter Summary ---
Author Organization [facility] [place] [address] Care Team Providers Care Weight Reduction Specialist Name Role Phone Veronica Barrios Liyah VALDES Primary Care Provider Encounter Details Date Type Department Care Team (Late st Contact Info) Description 09/26/2022 Telephone Cardiology at [address] [place] [address] Liam Noel MD [facility] [place] [address] Social History Tobacco Use Types Packs/Day Years [...] await paperwork. * Telephone Encounter - Chantell yS - 09/26/2022 2:58 PM EDT Patient called because Dr Noel ordered repatha 140 mg injections for her. She called to say the 2 injections she received were faulty and did not work. She called [employer] and they are going to send a request to Dr Noel. Then they will mail them to her. Please call her @ [phone] documented in this encounter Plan of Treatment Upcoming Encounters Date Type Department Care Team (Late st Contact Info) Description 03/13/2024 9:45 AM EDT Office Visit Dermatology at [place] [address] [place] [address] [address] Sal[address] MD [address] [facility], [place] [address] documented as of this encounter Visit Diagnoses Not on filedocumented in this encounter Care Teams Weight Reduction Specialist Relationship Specialty Start Date End Date Veronica Barrios APRN 600 [place] [address] PCP - General Family Medicine 08/27/22 03/17/23 documented as of this encounter
--- OUTSIDE RECORDS SUMMARY | 2024-02-20 13:38 | XMS_ITS | Encounter Summary ---
Author Organization [facility] [place] [address] Care Team Providers Care Hat Cleaner Name Role Phone Mary Altamirano MD Primary Care Provider Encounter Details Date Type Department Care Team (Latest Contact Info) Description 04/23/2022 1:00 PM EST TH Visit (TeleHealth) Cardiology at [address] [address] Derick Acosta, [facility]U [facility] [place] [address] Nutritional counseling Social History Tobacco Use Types [...] Vascular Center Cardiovascular Medicine Cardiology [facility] [place] [address] , #2 eFax: NO SHOW 04/23/22 Identification Yessenia Luong is a 72 y.o. patient of Mary Campbell MD referred to Cardiology Dietitian Environmental Assistant By Delfina Santiago MD, Lipidologist, for nutrition [...] a 72-year-old patient of Delfina Santiago MD, Data Integrity Consultant, referred to cardiology RDN for hyperlipidemia in [...] and coaching. cc: Mary Campbell MD [address] [facility] [address] documented in this encounter Plan of Treatment Upcoming Encounters Date Type Department Care Team (Late st Contact Info) Description 03/13/2024 9:45 AM EDT Office Visit Dermatology at [address] [place] [address] Emiliano Salinas MD [address] [place] [address], [place] [address] documented as of this encounter Visit Diagnoses Diagnosis Nutritional counseling documented in this encounter Care Teams Hat Cleaner Relationship Specialty Start Date End Date Mary Altamirano MD PCP - General Family Medicine 01/26/22 08/26/22 documented as of this encounter
--- OUTSIDE RECORDS SUMMARY | 2024-02-20 13:38 | XMS_ITS | Encounter Summary ---
Author Organization [facility] [place] [address] Care Team Providers Care Health Care Analyst Name Role Phone Mary Altamirano MD [...] 9:45 AM EDT Office Visit Dermatology at [place] [address] [place] [address] Emiliano Salinas MD [address], [place] [address] documented as of this encounter Visit Diagnoses Not on filedocumented in this encounter Care Teams Health Care Analyst Relationship Specialty Start Date End Date Mary Altamirano MD PCP - General Family Medicine 01/26/22 08/26/22 documented as of this encounter
--- OUTSIDE RECORDS SUMMARY | 2024-02-20 13:38 | XMS_ITS | Encounter Summary ---
Author Organization [facility] [place]ario [place] [address] Care Team Providers Care Metal Reclamation Kettle Tender Name Role Phone Mary Altamirano MD [...] 9:45 AM EDT Office Visit Dermatology at [place] [address] [facility] [place] [phone] Emiliano Salinas MD [address], [place]IND[place] [address] documented as of this encounter Visit Diagnoses Not on filedocumented in this encounter Care Teams Metal Reclamation Kettle Tender Relationship Specialty Start Date End Date Mary Altamirano MD PCP - General Family Medicine 01/26/22 08/26/22 documented as of this encounter
--- OUTSIDE RECORDS SUMMARY | 2024-02-20 13:38 | XMS_ITS | Encounter Summary ---
Author Organization [facility] [place] [address] Care Team Providers Care Granite Worker Name Role Phone Mary Altamirano MD Primary Care Provider [phone] Encounter Details Date Type Department Care Team [...] 9:45 AM EDT Office Visit Dermatology at [place] [address] [facility] [place] [address] Emiliano Salinas MD [address], [place] [address] documented as of this encounter Visit Diagnoses Not on filedocumented in this encounter Care Teams Granite Worker Relationship Specialty Start Date End Date Mary Altamirano MD PCP - General Family Medicine 01/26/22 08/26/22 documented as of this encounter
--- OUTSIDE RECORDS SUMMARY | 2024-02-20 13:38 | XMS_ITS | Encounter Summary ---
Author Organization [facility] [place] [address] Care Team Providers Care Director Of Resource Development Name Role Phone Veronica Barrios APRN Primary [...] 9:45 AM EDT Office Visit Dermatology at [place] [address] [place] [address] Emiliano Salinas MD [address], BAKARI [place] [address] documented as of this encounter Visit Diagnoses Not on filedocumented in this encounter Care Teams Director Of Resource Development Relationship Specialty Start Date End Date Veronica Barrios APRN 600 [place] [address] PCP - General Family Medicine 08/27/22 03/17/23 documented as of this encounter
--- OUTSIDE RECORDS SUMMARY | 2024-02-20 13:38 | XMS_ITS | Encounter Summary ---
Author Organization [facility] [place] [address] Care Team Providers Care Media Director Name Role Phone Veronica Barrios APRN Primary [...] EDT Office Visit Dermatology at [place] [address] [place] [address] Emiliano Salinas MD [address], BAKARI [place] [address] documented as of this encounter Visit Diagnoses Not on filedocumented in this encounter Care Teams Media Director Relationship Specialty Start Date End Date Veronica Barrios APRN [address] [place] [address] PCP - General Family Medicine 08/27/22 03/17/23 documented as of this encounter
--- OUTSIDE RECORDS SUMMARY | 2024-02-20 13:38 | XMS_ITS | Encounter Summary ---
Author Organization Formerly [facility] [place] [place] [address] Care Team Providers Care Tromper Name Role Phone Mary Altamirano MD Primary Care Provider [phone] Encounter Details Date Type Department Care Team (Late st Contact Info) Description 08/01/2022 11:00 AM EST Office Visit Cardiology at [address] [place] [phone] Delfina Santiago MD [facility] [place] [address] Nell Inman, [facility] Familial hypercholesterolemia; THERESA (obstructive sleep apnea); [...] causing symptoms. 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 ??She was in 2002 and has had a significant other for many years. ??Her significant other (Deacon Peterson) lives in [place].?She has??5??children and 3 biologic and 8 step??grandchildren. [...] azelastine (ASTELIN) 137 mcg (0.1 %) Aerosol, [place] 0 ??? PROVENTIL HFA 90 mcg/actuation HFA [...] Once daily ??? 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 Dr. Santiago supervised in and participated in all aspects of this appointment This clinic note includes: 1. History, Review of Symptoms, Examination, Vital Signs, Medication Review, Assessment and Plan byDelfina Santiago MD, Vonnie 2. Documentation of evaluation, recommendations, and counseling by Nell Inman PharmD. Delfina Santiago MD, Vonnie, ANJALI, JASON Attending Care Management Specialist Sports Cardiology Program Preventive Cardiology Lipid Clinic Advanced Hypertension Clinic * Nell Inman, [facility] - 08/01/2022 11:00 AM EST Cardiology Education: Multi-Specialty Visit Delfina Santiago MD, Vonnie, ANJALI, JASON & Nell Inman PharmD, [facility] Visit Type: Ygop-ao-Krvi Summary of Recommendations & Next Steps: The [...] management of hyperlipidemia. 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 She was in [...] Once daily ??? Mometasone (NASONEX) 50 mcg/Actuation [place] 2 [place](s) each nostril, Nasal, Twice daily ??? atorvastatin [...] azelastine (ASTELIN) 137 mcg (0.1 %) Aerosol, [place] 0 ??? PROVENTIL HFA 90 mcg/actuation HFA [...] 9:45 AM EDT Office Visit Dermatology at [place] [address] [facility] [place] [address] Emiliano Salinas MD [address], [place] [address] documented as of this encounter Visit Diagnoses Diagnosis Familial hypercholesterolemia Pure hypercholesterolemia THERESA (obstructive sleep apnea) Obstructive sleep apnea (adult) (pediatric) Dyspnea, unspecified type documented in this encounter Care Teams Tromper Relationship Specialty Start Date End Date Mary Altamirano MD PCP - General Family Medicine 01/26/22 08/26/22 documented as of this encounter
--- OUTSIDE RECORDS SUMMARY | 2024-02-20 13:38 | XMS_ITS | Encounter Summary ---
Author Organization [facility] [place] [address] Care Team Providers Care Study Manager Name Role Phone Veronica Barrios Liyah VALDES Primary Care Provider Encounter Details Date Type Department Care Team (Late st Contact Info) Description 09/20/2022 Telephone Cardiology at [address] [place] [address] Liam Noel MD [facility] [place] [address] Social History Tobacco Use Types Packs/Day Years [...] order cholesterol labs to be done at [place] before the appointment. Please call her @ [phone] documented in this encounter Plan of Treatment Upcoming Encounters Date Type Department Care Team (Late st Contact Info) Description 03/13/2024 9:45 AM EDT Office Visit Dermatology at [place] 580 [facility] [place] [phone] Emiliano Salinas MD 580 [facility], MANINDER Bhatt DERMATOLOGY [place], [place] [address] documented as of this encounter Visit Diagnoses Not on filedocumented in this encounter Care Teams Study Manager Relationship Specialty Start Date End Date Veronica Barrios APRN [address] [place] [address] PCP - General Family Medicine 08/27/22 03/17/23 documented as of this encounter
--- OUTSIDE RECORDS SUMMARY | 2024-02-20 13:38 | XMS_ITS | Encounter Summary ---
Author Organization [facility] [place]ario [place] [address] Care Team Providers Care Master Control Engineer Name Role Phone Mary Altamirano MD Primary Care Provider [phone] Encounter Details Date Type Department Care Team [...] 9:45 AM EDT Office Visit Dermatology at [place] [address] [facility] [place] [phone] Emiliano Salinas MD [address] [facility] [facility] [address], [place] [address] documented as of this encounter Visit Diagnoses Not on filedocumented in this encounter Care Teams Master Control Engineer Relationship Specialty Start Date End Date Mary Altamirano MD PCP - General Family Medicine 01/26/22 08/26/22 documented as of this encounter
--- OUTSIDE RECORDS SUMMARY | 2024-02-20 13:38 | XMS_ITS | Encounter Summary ---
[place] [address] Care Team Providers Care Speaker Mounter Name Role Phone Mary Altamirano MD Primary Care Provider Reason for Visit * Reason Onset Date Comments Medication Refill 08/13/2022 Repatha 90 day supply requestPharmacy change to [facility] in [facility] Encounter Details Date Type Department Care Team (Late st Contact Info) Description 08/13/2022 Refill Cardiology at [address] [address] roller engineer Refill (Repatha 90 day supply request/Pharmacy change to [facility] in [facility]/) Social History Tobacco Use Types [...] 9:45 AM EDT Office Visit Dermatology at [place] [address] [place] [address] Emiliano Salinas MD [address], MANINDER [place] [address] documented as of this encounter Visit Diagnoses Diagnosis Familial hypercholesterolemia Pure hypercholesterolemia documented in this encounter Care Teams Speaker Mounter Relationship Specialty Start Date End Date Mary Altamirano MD PCP - General Family Medicine 01/26/22 08/26/22 documented as of this encounter
--- OUTSIDE RECORDS SUMMARY | 2024-02-20 13:38 | XMS_ITS | Encounter Summary ---
[place] [address] Care Team Providers Care Wood Boat Builder Supervisor Name Role Phone Veronica Barrios APRN Primary Care Provider [phone] Reason for Referral * Consultation (Urgent) - Closed Specialty Diagnoses / Procedures Referred By Veronica t Referred To Contact Cardiology Diagnoses Familial hypercholesterolemia Familial hypercholesterolemia. Veronica Barrios APRN [address] [place] [address] [facility] Cardiology 580 [place] [address] Referral ID Status Reason Start Date Expiration Date V isits Requested Visits Authorized [id number] Closed Consult, Test & Treat PCP Updated and/or Approved 08/27/2022 08/27/2023 6 6 Encounter Details Date Type Department Care Team (Latest Contact Info) Description 08/27/2022 Transcribe Orders eDH Incoming Referrals [phone] Veronica Barrios APRN [address] [place] [address] Familial hypercholesterolemia Social History Tobacco [...] 9:45 AM EDT Office Visit Dermatology at [place] 580 [facility] [place] [address] Emiliano Salinas MD 580 [facility], BAKAR[place] [address] Scheduled Referrals Name Type Priority Associated Diagnoses Orde r Schedule Referral to Cardiology Outpatient Referral Urgent Familial hypercholesterolemia Ordered: 08/27/2022 documented as of this encounter Visit Diagnoses Diagnosis Familial hypercholesterolemia Pure hypercholesterolemia documented in this encounter Care Teams Wood Boat Builder Supervisor Relationship Specialty Start Date End Date Veronica Barrios APRN [address] [place] [address] PCP - General Family Medicine 08/27/22 03/17/23 documented as of this encounter
--- OUTSIDE RECORDS SUMMARY | 2024-02-20 13:38 | XMS_ITS | Encounter Summary ---
Author Organization Replaced By [facility] Address [facility] [place] [address] Care Team Providers Care Sap Administrator Name Role Phone Veronica Barrios Liyah VALDES Primary Care Provider Reason for Visit * Reason Comments Medication Refill Encounter Details Date Type Department Care Team (Late st Contact Info) Description 01/22/2023 Refill Cardiology at [address] [address] Liam Noel MD [facility] [place] [address] Medication Refill Social History Tobacco Use Types [...] 9:45 AM EDT Office Visit Dermatology at [place] 580 [facility] [place] [address] Emiliano Salinas MD 580 [facility], BAKAR[place] [address] documented as of this encounter Visit Diagnoses Diagnosis Mixed hyperlipidemia documented in this encounter Care Teams Sap Administrator Relationship Specialty Start Date End Date Veronica Barrios APRN [address] [place] [address] PCP - General Family Medicine 08/27/22 03/17/23 documented as of this encounter
--- OUTSIDE RECORDS SUMMARY | 2024-02-20 13:38 | XMS_ITS | Encounter Summary ---
Author Organization [facility] [address] Care Team Providers Care Manufacturing Assembler Name Role Phone Veronica Barrios Liyah VALDES Primary Care Provider Reason for Visit * Reason Onset Date Comments Medication Change/management 11/27/2022 Encounter Details Date Type Department Care Team (Late st Contact Info) Description 11/27/2022 Telephone Cardiology at [address] [place] [address] Liam Noel MD [facility] [place] [address] Medication Change/management Social History Tobacco Use Types [...] 9:45 AM EDT Office Visit Dermatology at [place] [address] [facility] [place] [address] Emiliano Salinas MD [address] [facility], MANINDER [place] [address] documented as of this encounter Visit Diagnoses Not on filedocumented in this encounter Care Teams Manufacturing Assembler Relationship Specialty Start Date End Date Veronica Barrios APRN 600 [place] [address] PCP - General Family Medicine 08/27/22 03/17/23 documented as of this encounter
--- OUTSIDE RECORDS SUMMARY | 2024-02-20 13:38 | XMS_ITS | Encounter Summary ---
Author Organization [facility] [place] [address] Care Team Providers Care Cuffer Name Role Phone Veronica Barrios Liyah VALDES Primary Care Provider Encounter Details Date Type Department Care Team (Late st Contact Info) Description 12/27/2022 Ancillary Procedure [place] [phone] Guerline Quigley APRN [address] [place] [address] Social History Tobacco Use Types Packs/Day Years [...] 9:45 AM EDT Office Visit Dermatology at [address] [place] [address] Emiliano Salinas MD 580 [facility], BAKARI [place] [address] documented as of this encounter Procedures Procedure Name Priority Date/Time Associated Diagnosis Comments FILM LIBRARY- STORAGE ONLY DXA IMAGES Routine 12/27/2022 12:00 AM EDT documented in this encounter Results * Film Library- Storage Only DXA Images (12/27/2022 12:00 AM EDT) Narrative [facility] - 08/07/2023 3:20 PM EST This exam is auto-finalizing. It's purpose is for storage only. Guerline Quigley APRN IMAdwoa FILM LIBRARY ORD ERABLES Performing Organization Address City/State/[facility] Co de Phone Number [place], [place] documented in this encounter Visit Diagnoses Not on filedocumented in this encounter Care Teams Cuffer Relationship Specialty Start Date End Date Veronica Barrios APRN [address] [place] [address] PCP - General Family Medicine 08/27/22 03/17/23 documented as of this encounter
--- OUTSIDE RECORDS SUMMARY | 2024-02-20 13:38 | XMS_ITS | Encounter Summary ---
[place] [address] Care Team Providers Care Plasticator Name Role Phone Mary Altamirano MD Primary Care Provider [phone] Reason for Visit * Reason Comments Medication Management Patient Education Medication Refill Encounter Details Date Type Department Care Team (Late st Contact Info) Description 08/07/2022 Specialty [place] [phone] Xochitl Loyola RPH Social History Tobacco Use [...] Requirements: no Medication Reconciliation Discrepancies (compared to [facility] med list) -none Medication List: Current Outpatient [...] azelastine (ASTELIN) 137 mcg (0.1 %) Aerosol, [place] 0 ??? PROVENTIL HFA 90 mcg/actuation HFA [...] Once daily ??? Mometasone (NASONEX) 50 mcg/Actuation [place] 2 [place](s) each nostril, Nasal, Twice daily No current [...] specialty services: Yes Patient accepted offer to staff counselor: adherence/missed doses, doses and administration, pharmacy [...] counter products discussed, reminder to refill or picker tender helper medication discussed, start medication discussed, timing of [...] Assessment: Does patient have a primary career technical education teacher: No Does patient have an emergency contact on file: Yes Does patient need referral to social worker aide: No Does patient need referral to advocacy [...] were made at the appointment and that [facility] isproviding recommendations (summary located at top of note) for provider review and follow up. Xochitl Loyola RPH 08/07/22 1:40 PM documented in this encounter Plan of Treatment Upcoming Encounters Date Type Department Care Team (Late st Contact Info) Description 03/13/2024 9:45 AM EDT Office Visit Dermatology at [place] [address] [facility] [place] [address] Emiliano Salinas MD [address], BAKARI [place] [address] documented as of this encounter Visit Diagnoses Not on filedocumented in this encounter Care Teams Plasticator Relationship Specialty Start Date End Date Mary Altamirano MD PCP - General Family Medicine 01/26/22 08/26/22 documented as of this encounter
--- OUTSIDE RECORDS SUMMARY | 2024-02-20 13:38 | XMS_ITS | Encounter Summary ---
Author Organization [facility] [place] [address] Care Team Providers Care Car Blocker Name Role Phone Mary Altamirano MD Primary Care Provider Reason for Referral * Diagnostic Test (Routine) - Closed Specialty Diagnoses / Procedures Referred By Contac t Referred To Contact Diagnoses Familial hypercholesterolemia THERESA (obstructive sleep apnea) Dyspnea, unspecified type Procedures Echocardiogram Stress (Treadmill) Delfina Alexandre MD [facility] [place] [address] [facility] [place] [address] Referral ID Status Reason Start Date Expiration Date V isits Requested Visits Authorized [id number] Closed Specialty Service Requested 05/21/2022 05/21/2023 1 1 Reason for Visit * Diagnostic Test (Routine) - Closed Specialty Diagnoses / Procedures Referred By Contac t Referred To Contact Diagnoses Familial hypercholesterolemia THERESA (obstructive sleep apnea) Dyspnea, unspecified type Procedures Echocardiogram Stress (Treadmill) Delfina Alexandre MD [facility] [place] [address] [facility] [place] [address] Referral ID Status Reason Start Date Expiration Date V isits Requested Visits Authorized [id number] Closed Specialty Service Requested 05/21/2022 05/21/2023 1 1 Encounter Details Date Type Department Care Team (Latest Contact Info) Description 08/01/2022 8:01 AM EST - 08/01/2022 11:59 PM EST Hospital Encounter [place] [address] Delfina Alexandre MD [facility] [place], [place] [phone] Familial hypercholesterolemi a; THERESA (obstructive sleep apnea); [...] End Date fluticasone propionate (Flonase) 50 mcg/actuation [place], Suspension Every 12 hours. 10/17/2020 meloxicam (Mobic) [...] (ASTELIN) 137 mcg (0.1 %) Aerosol, [place] 0 11/06/2017 0 3 ASCORBATE CALCIUM (VITAMIN C ORAL) Take by mouth. 3 ERGOCALCIFEROL, VITAMIN D2, (VITAMIN D ORAL) Take by mouth. 09/03 3 multivitamin (THERAGRAN) tablet Take 1 tablet by mouth daily. 3 fexofenadine (EVANGELINA) 180 mg tablet 180 mg, PO, Once daily 08/28/2010 3 Mometasone (NASONEX) 50 mcg/Actuation [place] 2 [place](s) each nostril, Nasal, Twice daily 08/28/2010 3 documented as of this encounter Plan of Treatment Upcoming Encounters Date Type Department Care Team (Late st Contact Info) Description 03/13/2024 9:45 AM EDT Office Visit Dermatology at [place] [address] [place] [address] Emiliano Salinas MD [address], BAKAR[place] [address] documented as of this encounter Procedures Procedure Name Priority Date/Time Associated Diagnosis Comments STRESS ECHO W LMTD SPEC DOPP COLOR DOPP Routine 08/01/2022 9:19 AM EST Familial hypercholesterolemia THERESA (obstructive sleep apnea) Dyspnea, unspecified type documented in this encounter Results * STRESS ECHO W LMTD SPEC DOPP COLOR DOPP (08/01/2022 9:19 AM EST) EF 65 [employer]ART[employer] SYSTEM Anatomical Region Laterality Modality Cardiac Other 08/01/2022 8:38 AM EST Narrative 08/01/2022 9:38 AM EST ? Exercise Stress Echocardiogram Report Name: ARNOLDYESSENIA Meyer ?Study Date: 08/01/2022 08:38 AMBP: 142/74 mmHg ? Patient Location: 4A ? HR: 69 : 1950 ? Height: 161 cm ? Account: [id number] Age: 72 yrs ? Weight: 72 kg Gender: Female ?BSA: 1.8 m2 Ordering Physician: DELFINA ALEXANDRE Referring Physician: DELFINA ALEXANDRE Performed By: SOO Woods Reason For Study: Abnormal EKG Exam Location: [facility]. Interpretation Summary IMPRESSION: There was no evidence [...] 69 : 1950 Height: 161 cm Account: [id number] Age: 72 yrs Weight: 72 kg Gender: Female BSA: 1.8 m2 Ordering Physician: DELFINA ALEXANDRE Referring Physician: DELFINA ALEXANDRE Performed By: SOO Woods Reason For Study: Abnormal EKG Exam Location: [facility]. Interpretation Summary IMPRESSION: There was no evidence [...] documented in this encounter Care Teams Car Blocker Relationship Specialty Start Date End Date Mary Altamirano MD PCP - General Family Medicine 01/26/22 08/26/22 documented as of this encounter
--- OUTSIDE RECORDS SUMMARY | 2024-02-20 13:38 | XMS_ITS | Encounter Summary ---
Author Organization [facility] Address [facility] [place] [address] Care Team Providers Care Utility Arborist Name Role Phone Veronica Barrios TIMBER CUTTER Primary Care Provider Reason for Visit * Reason Comments Skin Problem Encounter Details Date Type Department Care Team (Late st Contact Info) Description 08/30/2022 8:45 AM EDT Office Visit Dermatology at [facility] [address] [place] [address] Star Moura MD [facility] [address] [address] Encounter for cosmetic procedure Social History Tobacco [...] glabella & forehead & crows feet. LOT: [id number] EXP:2023-06 3. Post-injection care reviewed. Call with [...] by Star Moura MD Department of Dermatology [facility] documented in this encounter Plan of Treatment Upcoming Encounters Date Type Department Care Team (Late st Contact Info) Description 03/13/2024 9:45 AM EDT Office Visit Dermatology at [place] [address] [facility] [place] [address] Emiliano Salinas MD [address] [facility], [place] [address] documented as of this encounter Visit Diagnoses Diagnosis Encounter for cosmetic procedure documented in this encounter Care Teams Utility Arborist Relationship Specialty Start Date End Date Veronica Barrios APRN [address] [place] [address] PCP - General Family Medicine 08/27/22 03/17/23 documented as of this encounter
--- OUTSIDE RECORDS SUMMARY | 2024-02-20 13:38 | XMS_ITS | Encounter Summary ---
Author Organization [facility] [place] [address] Care Team Providers Care Assembly Inspector Name Role Phone Veronica Barrios Liyah VALDES Primary Care Provider Encounter Details Date Type Department Care Team (Late st Contact Info) Description 02/06/2023 Telephone Cardiology at [address] [place] [address] Liam Noel MD [facility] [place] [address] Social History Tobacco Use Types Packs/Day Years [...] Lab orders verified and will fax to [facility] lab per patient request. documented in this encounter Plan of Treatment Upcoming Encounters Date Type Department Care Team (Late st Contact Info) Description 03/13/2024 9:45 AM EDT Office Visit Dermatology at [place] [address] [facility] [place] [address] Emiliano Salinas MD 580 [facility], [place] [address] documented as of this encounter Visit Diagnoses Not on filedocumented in this encounter Care Teams Assembly Inspector Relationship Specialty Start Date End Date Veronica Barrios APRN [address] [place] [address] PCP - General Family Medicine 08/27/22 03/17/23 documented as of this encounter
--- OUTSIDE RECORDS SUMMARY | 2024-02-20 13:38 | XMS_ITS | Encounter Summary ---
Author Organization [facility] Address [facility] [place] [address] Care Team Providers Care Bilingual Student Tutor Name Role Phone Guerline Quigley Rodolfo VALDES Primary Care Provider [phone] Reason for Visit * Reason Onset Date Comments Abnormal Bruising 05/20/2023 Encounter Details Date Type Department Care Team (Late st Contact Info) Description 05/20/2023 Telephone Cardiology at [address] [address] Liam Noel MD [facility] [place] [address] Abnormal Bruising Social History Tobacco Use Types [...] evaluated by a doctor. Call back to [phone] to ask for a nurse if you need to discuss it further. * Telephone Encounter - KerrieChantell Jena - 05/20/2023 9:10 AM EST Patient called because her left foot swelled on the top and got black and blue. She said she looked up online and clogged arteries can do that. Please call her back @ [phone] documented in this encounter Plan of Treatment Upcoming Encounters Date Type Department Care Team (Late st Contact Info) Description 03/13/2024 9:45 AM EDT Office Visit Dermatology at [place] 580 [facility] [place] [address] Emiliano Salinas MD 580 [facility], [place] [address] documented as of this encounter Visit Diagnoses Not on filedocumented in this encounter Care Teams Bilingual Student Tutor Relationship Specialty Start Date End Date Guerline Quigley APRN PCP - General Family Medicine 03/18/23 09/29/23 documented as of this encounter
--- OUTSIDE RECORDS SUMMARY | 2024-02-20 13:38 | XMS_ITS | Encounter Summary ---
Author Organization [facility] [place]ario [place] [address] Care Team Providers Care Test Boring Crew Chief Name Role Phone Mary Altamirano MD Primary Care Provider [phone] Encounter Details Date Type Department Care Team [...] 9:45 AM EDT Office Visit Dermatology at [place] [address] [place] [address] Emiliano Salinas MD [address] [facility] [address], [place] [address] documented as of this encounter Visit Diagnoses Not on filedocumented in this encounter Care Teams Test Boring Crew Chief Relationship Specialty Start Date End Date Mary Altamirano MD PCP - General Family Medicine 01/26/22 08/26/22 documented as of this encounter
--- OUTSIDE RECORDS SUMMARY | 2024-02-20 13:38 | XMS_ITS | Encounter Summary ---
Author Organization [facility] [place] [address] Care Team Providers Care Rim Technician Name Role Phone Veronica Barrios KEISHA Primary Care Provider Encounter Details Date Type Department Care Team (Late st Contact Info) Description 10/29/2022 External Results Cardiology at [address] [address] Liam Noel MD [facility] [place] [address] Social History Tobacco Use Types Packs/Day Years [...] AM EDT Office Visit Dermatology at [address] [place] [address] Emiliano Salinas MD [address] [place] [address], [place] [address] documented as of this encounter Procedures Procedure [...] on filedocumented in this encounter Care Teams Rim Technician Relationship Specialty Start Date End Date Veronica Barrios APRN [address] [place] [address] PCP - General Family Medicine 08/27/22 03/17/23 documented as of this encounter
--- OUTSIDE RECORDS SUMMARY | 2024-02-20 13:38 | XMS_ITS | Encounter Summary ---
Author Organization [facility] [place] [address] Care Team Providers Care Inventory Transcriber Name Role Phone Veronica Barrios KEISHA Primary Care Provider Reason for Visit * Reason Comments Skin Lesion Encounter Details Date Type Department Care Team (Late st Contact Info) Description 08/30/2022 9:00 AM EDT Office Visit Dermatology at [facility] [address] [place] [address] Star Moura MD [facility] [address] [place] [address] Encounter for cosmetic laser procedure Social History [...] and signed by: Star Moura MD Dermatology [facility] documented in this encounter Plan of Treatment Upcoming Encounters Date Type Department Care Team (Late st Contact Info) Description 03/13/2024 9:45 AM EDT Office Visit Dermatology at [place] [address] [place] [address] Emiliano Salinas MD [address] [facility], [place] [address] documented as of this encounter Visit Diagnoses Diagnosis Encounter for cosmetic laser procedure documented in this encounter Care Teams Inventory Transcriber Relationship Specialty Start Date End Date Veronica Barrios APRN 600 [place] [address] PCP - General Family Medicine 08/27/22 03/17/23 documented as of this encounter
--- OUTSIDE RECORDS SUMMARY | 2024-02-20 13:38 | XMS_ITS | Encounter Summary ---
[place] [address] Care Team Providers Care Inflated Pad Buffer Name Role Phone Veronica Barrios KEISHA Primary Care Provider [phone] Reason for Visit * Reason Comments Medication Management Encounter Details Date Type Department Care Team (Late st Contact Info) Description 09/27/2022 Specialty [place] [phone] Louie Sosa RPH Social History Tobacco Use [...] Management (CMM) Yessenia Arnoldnavin [address] [facility] [address] Telephone Information: Work Phone Not on file. [...] made at the appointment and that [facility] isproviding recommendations (summary located at top of [...] 9:45 AM EDT Office Visit Dermatology at [place] 580 [facility] [place] [address] Emiliano Salinas MD [address] [facility], [place] [address] documented as of this encounter Visit Diagnoses Not on filedocumented in this encounter Care Teams Inflated Pad Buffer Relationship Specialty Start Date End Date Veronica Barrios APRN 600 [place] [address] PCP - General Family Medicine 3/20/23 10/8/23 documented as of this encounter
--- OUTSIDE RECORDS SUMMARY | 2024-02-20 13:38 | XMS_ITS | Encounter Summary ---
Author Organization [facility] [place] [address] Care Team Providers Care It Teacher Name Role Phone Guerline Quigley KEISHA Primary Care Provider [phone] Encounter Details Date Type Department Care Team (Late st Contact Info) Description 06/17/2023 Telephone Cardiology at [address] [address] Liam Noel MD [facility] [place] [address] Social History Tobacco Use Types Packs/Day Years [...] 10:42 AM EST Liam Noel MD to [facility] Card Nurse If she feels it is [...] a few weeks. Please call her @ [phone] documented in this encounter Plan of Treatment Upcoming Encounters Date Type Department Care Team (Late st Contact Info) Description 03/13/2024 9:45 AM EDT Office Visit Dermatology at [address] [place] [address] Emiliano Salinas MD [address] [facility], [place] [address] documented as of this encounter Visit Diagnoses Not on filedocumented in this encounter Care Teams It Teacher Relationship Specialty Start Date End Date Guerline Quigley APRN PCP - General Family Medicine 03/18/23 09/29/23 documented as of this encounter
--- OUTSIDE RECORDS SUMMARY | 2024-02-20 13:38 | XMS_ITS | Encounter Summary ---
Author Organization [facility] [place] [address] Care Team Providers Care Disassembler Product Name Role Phone Veronica Barrios KEISHA Primary Care Provider Encounter Details Date Type Department Care Team (Latest Contact Info) Description 09/03/2022 Orders Only Cardiology at [address] [address] [facility] [place] [address] Familial hypercholesterolemia Social History Tobacco Use Types [...] AM EDT Office Visit Dermatology at [address] [place] [address] Emiliano Salinas MD [address] [place] [address] RD, [place] [address] documented as of this encounter Visit Diagnoses Diagnosis Familial hypercholesterolemia Pure hypercholesterolemia documented in this encounter Care Teams Disassembler Product Relationship Specialty Start Date End Date Veronica Barrios APRN [address] [place] [address] PCP - General Family Medicine 08/27/22 03/17/23 documented as of this encounter
--- OUTSIDE RECORDS SUMMARY | 2024-02-20 13:38 | XMS_ITS | Encounter Summary ---
Author Organization [facility] [place] [address] Care Team Providers Care Napper Tender Name Role Phone Mary Altamirano MD Primary Care Provider [phone] Encounter Details Date Type Department Care Team (Late st Contact Info) Description 06/14/2022 Telephone Cardiology at [address] [address] Dariela Manzano, RN Social History [...] way up. She can be reached at [phone]. Forward to Dr Santiago. * Telephone Encounter - Dariela Manzano RN - 06/14/2022 12:55 PM EST Telephone call from Ms Luong,states she has noted onset of muscle pain and aches as well as muscle spasms since initiating atorvastatin 80 mg daily. She has not tried [id number] dosing-she is agreeable to trying this. Last [...] non-daily basis) Blood tests in ~6 weeks [place] Forward to [address] Santiago documented in this encounter Plan of Treatment Upcoming Encounters Date Type Department Care Team (Late st Contact Info) Description 03/13/2024 9:45 AM EDT Office Visit Dermatology at [place] [address] [facility] [place] [address] Emiliano Salinas MD [address] [facility] [facility] [address] [address], [place] [address] documented as of this encounter Visit Diagnoses Not on filedocumented in this encounter Care Teams Napper Tender Relationship Specialty Start Date End Date Mary Altamirano MD PCP - General Family Medicine 01/26/22 08/26/22 documented as of this encounter
--- OUTSIDE RECORDS SUMMARY | 2024-02-20 13:38 | XMS_ITS | Encounter Summary ---
Author Organization [facility] [place]rario [place] [address] Care Team Providers Care Race Steward Name Role Phone Mary Altamirano MD Primary Care Provider [phone] Encounter Details Date Type Department Care Team [...] Office Visit Dermatology at [place] [address] [place] [address] Emiliano Salinas MD [address] [facility] [address], [place]IND[place] [address] documented as of this encounter Visit Diagnoses Not on filedocumented in this encounter Care Teams Race Steward Relationship Specialty Start Date End Date Mary Altmairano MD PCP - General Family Medicine 01/26/22 08/26/22 documented as of this encounter
--- OUTSIDE RECORDS SUMMARY | 2024-02-20 13:38 | XMS_ITS | Encounter Summary ---
Author Organization [facility] Address [facility] [place] [address] Care Team Providers Care Circulation Tender Name Role Phone Veronica Barrios KEISHA Primary Care Provider Reason for Visit * Reason Comments Skin Check Encounter Details Date Type Department Care Team (Late st Contact Info) Description 08/30/2022 8:30 AM EDT Office Visit Dermatology at [facility] [address] [place] [address] Star Moura MD [facility] [address] [place] [address] Multiple benign melanocytic nevi of upper and [...] education Hobbies: Other: Yessenia grew up in [place], [place]. Pre-Procedure Questions Details Allergy to [...] on the face. Will be sent to [facility]. Cost is $60 for [...] Start Rx: Minoxidil 1.25mg QD (compounded by [employer]). Counseled that minoxidil can initially increase hair [...] 1 year for FSE []Note routed to racing secretary and handicapper [x]Recall placed in scheduling system []Appointment scheduled at checkout Scribe attestation: TAQUERIA Vang has performed the documentation for this encounter in the presence of and acting as a scribe for Star Moura MD. I performed the above scribed service and agree with the accuracy of the documentation in this encounter. Reviewed and signed by: Star Moura MD Dermatology [facility] documented in this encounter Plan of Treatment Upcoming Encounters Date Type Department Care Team (Late st Contact Info) Description 03/13/2024 9:45 AM EDT Office Visit Dermatology at [place] [address] [facility] [place] [address] Emiliano Salinas MD 580 [facility], [place] [address] documented as of this encounter Visit Diagnoses Diagnosis Multiple benign melanocytic nevi of upper and lower extremities and trunk Rhytides Other specified hypertrophic and atrophic condition of skin Lentigines Other dyschromia Eczema craquele Other specified disease of sebaceous glands Holt angioma Nevus, non-neoplastic Androgenetic alopecia Other alopecia documented in this encounter Care Teams Circulation Tender Relationship Specialty Start Date End Date Veronica Barrios APRN [address] [place] [address] PCP - General Family Medicine 08/27/22 03/17/23 documented as of this encounter
--- OUTSIDE RECORDS SUMMARY | 2024-02-20 13:38 | XMS_ITS | Encounter Summary ---
Author Organization [facility] [place] [address] Care Team Providers Care Wildlife Biostation Research Ecologist Name Role Phone Guerline Quigley Rodolfo VALDES Primary Care Provider [phone] Encounter Details Date Type Department Care Team (Late st Contact Info) Description 05/15/2023 Telephone Cardiology at [address] [place] [address] Liam Noel MD [facility] [place] [address] Social History Tobacco Use Types Packs/Day Years [...] 9:45 AM EDT Office Visit Dermatology at [place] [address] [facility] [place] [address] Emiliano Salinas MD [address] [facility] [address], MANINDER [place] [address] documented as of this encounter Visit Diagnoses Diagnosis Mixed hyperlipidemia documented in this encounter Care Teams Wildlife Biostation Research Ecologist Relationship Specialty Start Date End Date uGerline Quigley APRN PCP - General Family Medicine 03/18/23 09/29/23 documented as of this encounter
--- OUTSIDE RECORDS SUMMARY | 2024-02-20 13:38 | XMS_ITS | Encounter Summary ---
Author Organization [facility] Address [facility] [place] [address] Care Team Providers Care Resident Care Coordinator Name Role Phone Mary Altamirano MD Primary Care Provider Reason for Referral * Diagnostic Test (Routine) - Closed Specialty Diagnoses / Procedures Referred By Contac t Referred To Contact Diagnoses Familial hypercholesterolemia THERESA (obstructive sleep apnea) Dyspnea, unspecified type Procedures Echocardiogram Stress (Treadmill) Delfina Alexandre MD [facility] [place] [address] [facility] [place] [address] Referral ID Status Reason Start Date Expiration Date V isits Requested Visits Authorized [id number] Closed Specialty Service Requested 05/21/2022 05/21/2023 1 1 Encounter Details Date Type Department Care Team (Late st Contact Info) Description 05/21/2022 10:20 AM EST Office Visit Cardiology at [address] [address] Delfina Alexandre MD [facility] [place] [address] Familial hypercholesterolemia; THERESA (obstructive sleep apnea); Dyspnea, [...] causing symptoms. 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 PROVENTIL HFA 90 mcg/actuation HFA [...] Once daily ??? 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 [...] non-daily basis) Blood tests in ~6 weeks [place] Time spent for this clinic appointment on the date of service includes: 25 minutes review of her chart and previous lipid evaluation and recommendations; 30 minutes [id number] and 10 minutes coordination of care 1) ifrr-as-jvzw counseling as noted above 2) reviewing past medical records, cardiac testing, results of laboratory testing 3) coordinating care with other physicians and allied health care providers Delfina Alexandre MD, Vonnie, FACC, FNLA Attending Dyed Yarn Operator Sports Cardiology Program Preventive Cardiology Lipid Clinic Advanced Hypertension Clinic documented in this encounter Plan of Treatment Upcoming Encounters Date Type Department Care Team (Late st Contact Info) Description 03/13/2024 9:45 AM EDT Office Visit Dermatology at [place] [address] [facility] [address] [place] [address] Emiliano Salinas MD [address], [place] [address] documented as of this encounter Results * [...] 1950 ? Height: 161 cm ? Account: [id number] Age: 72 yrs ? Weight: 72 kg Gender: Female ?BSA: 1.8 m2 Ordering Physician: DELFINA ALEXANDRE Referring Physician: DELFINA ALEXANDRE Performed By: SOO Woods Reason For Study: Abnormal EKG Exam Location: [facility]. Interpretation Summary IMPRESSION: There was [...] 68 : 1950 Height: 161 cm Account: [id number] Age: 72 yrs Weight: 72 kg Gender: Female BSA: 1.8 m2 Ordering Physician: DELFINA ALEXANDRE Referring Physician: DELFINA ALEXANRDE Performed By: SOO Woods Reason For Study: Abnormal EKG Exam Location: [facility]. Interpretation Summary IMPRESSION: There was [...] E/ e' (lat): 8.6 Med Peak E' Bilyl: 6.1 cm/sec E/e' (med): 11.6 E/e' Average: [...] type documented in this encounter Care Teams Resident Care Coordinator Relationship Specialty Start Date End Date Mary Altamirano MD PCP - General Family Medicine 01/26/22 08/26/22 documented as of this encounter
--- OUTSIDE RECORDS SUMMARY | 2024-02-20 13:38 | XMS_ITS | Encounter Summary ---
Author Organization [facility] [place] [address] Care Team Providers Care Director Of Neurology Name Role Phone Mary Altamirano MD Primary Care Provider Encounter Details Date Type Department Care Team (Latest Contact Info) Description 04/10/2022 4:00 PM EDT TH Visit (TeleHealth) Cardiology at [address] [address] Derick Acosta, [facility]U [facility] [place] [address] Nutritional counseling Social History Tobacco Use Types [...] Vascular Center Cardiovascular Medicine Cardiology Nutrition [place] [address] Initial Nutrition Assessment 04/09/22 Identification and Chief Complaint Yessenia Luong is a 72 y.o. patient of Mary Campbell MD referred to Cardiology Dietitian Digital Asset Specialist By Delfina Santiago MD, Lipidologist, for nutrition [...] 40% carbohydrate) with the goals: o Meet ANALYTIC PROGRAMMER for vitamin D, calcium, magnesium, and potassium [...] coaching. cc: ?? Mary Campbell MD [address] [facility] [address] documented in this encounter Plan of Treatment Upcoming Encounters Date Type Department Care Team (Late st Contact Info) Description 03/13/2024 9:45 AM EDT Office Visit Dermatology at [place] 580 [facility] [place] [address] Emiliano Salinas MD [address] [facility] [facility] [address] [address], BAKARI [place] [address] documented as of this encounter Visit Diagnoses Diagnosis Nutritional counseling documented in this encounter Care Teams Director Of Neurology Relationship Specialty Start Date End Date Mary Altamirano MD PCP - General Family Medicine 01/26/22 08/26/22 documented as of this encounter
--- OUTSIDE RECORDS SUMMARY | 2024-02-20 13:38 | XMS_ITS | Encounter Summary ---
Author Organization [facility] Address [facility] [address] Care Team Providers Care Race Steward Name Role Phone Mary Altamirano MD Primary Care Provider [phone] Encounter Details Date Type Department Care Team (Latest Contact Info) Description 04/06/2022 11:00 AM EDT TH Visit (TeleHealth) Cardiology at [address] [address] [facility] [place] [place] [address] Nutritional counseling Social History Tobacco Use Types [...] 9:45 AM EDT Office Visit Dermatology at [place] [address] [facility] [place] [address] Emiliano Salinas MD [address] [address], BAKAR[place] [address] documented as of this encounter Visit Diagnoses Diagnosis Nutritional counseling documented in this encounter Care Teams Race Steward Relationship Specialty Start Date End Date Mary Altamirano MD PCP - General Family Medicine 01/26/22 08/26/22 documented as of this encounter
--- OUTSIDE RECORDS SUMMARY | 2024-02-20 13:38 | XMS_ITS | Encounter Summary ---
[place] [address] Care Team Providers Care Custodial Laborer Name Role Phone Mary Altamirano MD Primary Care Provider Reason for Visit * Reason Comments Prior Authorization Repatha 140mg/mL pen s Encounter Details Date Type Department Care Team (Late st Contact Info) Description 08/06/2022 Specialty [place] [address] Skyler Garcia, HAND CUTTER Social History Tobacco Use Types Packs/Day Years [...] Patient : 1950 Patient Address: [address] [facility] [address] (home) Medication Name: REPATHA SURECLICK 140 MG/ML SUBCUTANEOUS PEN INJECTOR Medication ID: [id number] Subscriber Insurance: [facility] Part D Subscriber Insurance Comment: Phone: Fax: Physician: KALEIGH AELXANDRE Physician Comment: Sent Via: [facility] Gonsales: [id number] Ref/Case/PA#: Medication Strength Frequency Requested: evolocumab (Repatha SureClick) 140 mg/mL Pen Injector, 1 pen every 14 days Qty/Day Supply: 08/07 New Start: New to Therapy Diagnosis & ICD-10 Code: Familial hypercholesterolemia E78.01 Patient Notified: Left Voicemessage Submission Notes: None Skyler Garcia 08/06/22 2:14 PM * Nam Chan - 08/06/2022 2:07 PM EST [facility], Prior Authorization Approval Medication Name: REPATHA SURECLICK 140 MG/ML SUBCUTANEOUS PEN INJECTOR Medication ID: [id number] Approval Dates: 08/06/2022 to 02/03/2023 Insurance requirements/notes: None Other Notes: None Case/Reference #: [id number] Approval notification Received via: [facility] Copay: $0 Copay assistance: [employer] Copay Notes: If cost were to become unaffordable we can assess eligibility for any currently open grants, or refer to [facility] MAP for enrollment in planer tailer assistance. Insurance mandated Pharmacy: Unknown Fillable at [facility]: Yes Pharmacy staff will be reaching out to the patient to inform them of their medication's [facility]. If applicable, a pharmacist will speak with the patient to offer our specialty pharmacy services and to arrange delivery of their medication. Nam Chan 08/07/22 8:52 AM documented in this encounter Plan of Treatment Upcoming Encounters Date Type Department Care Team (Late st Contact Info) Description 03/13/2024 9:45 AM EDT Office Visit Dermatology at [place] 580 [facility] [place] [address] Emiliano Salinas MD [address] [address], [place]AKAR[place] [address] documented as of this encounter Visit Diagnoses Not on filedocumented in this encounter Care Teams Custodial Laborer Relationship Specialty Start Date End Date Mary Altamirano MD PCP - General Family Medicine 01/26/22 08/26/22 documented as of this encounter
--- OUTSIDE RECORDS SUMMARY | 2024-02-20 13:38 | XMS_ITS | Encounter Summary ---
Author Organization [facility] Address [facility] [place] [address] Care Team Providers Care Muff Winder Name Role Phone Guerline Quigley Rodolfo VALDES Primary Care Provider [phone] Reason for Visit * Reason Comments Hyperlipidemia Encounter Details Date Type Department Care Team (Late st Contact Info) Description 03/18/2023 3:00 PM EDT Office Visit Cardiology at [address] [address] Liam Noel MD [facility] [place] [address] Mixed hyperlipidemia Social History Tobacco Use Types [...] WEEK DIRECTED fluticasone propionate (Flonase) 50 mcg/actuation [place], Suspension EVERY 12 HOURS icosapent ethyL (VASCEPA) [...] without use of accessory muscles Labs 03/2023 ([facility]) Uric acid 6.0 TSH 1.62 [...] EDT Office Visit Dermatology at [place] 580 [facility] [place] [address] Emiliano Salinas MD 580 [facility], [place] [address] documented as of this encounter Visit Diagnoses Diagnosis Mixed hyperlipidemia documented in this encounter Care Teams Muff Winder Relationship Specialty Start Date End Date Guerline Quigley APRN PCP - General Family Medicine 03/18/23 09/29/23 documented as of this encounter
--- OUTSIDE RECORDS SUMMARY | 2024-02-20 13:38 | XMS_ITS | Encounter Summary ---
Author Organization [facility] [place] [address] Care Team Providers Care Rubber Cutting Machine Tender Name Role Phone Veronica Barrios KEISHA Primary Care Provider Encounter Details Date Type Department Care Team (Late st Contact Info) Description 09/03/2022 Abstract Cardiology at [address] [address] Ashlyn Celis, RN Mixed hyperlipidemia [...] 9:45 AM EDT Office Visit Dermatology at [address] [address] Emiliano Salinas MD [address] [place] [address], [facility] [place] [address] documented as of this encounter Visit Diagnoses Diagnosis Mixed hyperlipidemia documented in this encounter Care Teams Rubber Cutting Machine Tender Relationship Specialty Start Date End Date Veronica Barrios APRN [address] [phone] PCP - General Family Medicine 08/27/22 03/17/23 documented as of this encounter
--- OUTSIDE RECORDS SUMMARY | 2024-02-20 13:38 | XMS_ITS | Encounter Summary ---
Author Organization [facility] [place] [address] Care Team Providers Care Plant Anatomist Name Role Phone Mary Altamirano MD Primary Care Provider [phone] Encounter Details Date Type Department Care Team [...] 9:45 AM EDT Office Visit Dermatology at [place] [address] [facility] [phone] Emiliano Salinas MD [address], [place] [address] documented as of this encounter Visit Diagnoses Not on filedocumented in this encounter Care Teams Plant Anatomist Relationship Specialty Start Date End Date Mary Altamirano MD PCP - General Family Medicine 01/26/22 08/26/22 documented as of this encounter
--- OUTSIDE RECORDS SUMMARY | 2024-02-20 13:38 | XMS_ITS | Encounter Summary ---
Author Organization [facility] Address [facility] [place] [address] Care Team Providers Care Delivery Person Name Role Phone Veronica Barrios APRN Primary Care Provider [phone] Reason for Visit * Reason Comments Establish Care Hyperlipidemia * Consultation (Urgent) - Closed Specialty Diagnoses / Procedures Referred By Veronica brantley Referred To Contact Cardiology Diagnoses Familial hypercholesterolemia Familial hypercholesterolemia. Veronica Barrios APRN [address] [place] [address] [facility] Cardiology [address] [place] [address] Referral ID Status Reason Start Date Expiration Date V isits Requested Visits Authorized [id number] Closed Consult, Test & Treat PCP Updated and/or Approved 08/27/2022 08/27/2023 6 6 Encounter Details Date Type Department Care Team (Late st Contact Info) Description 10/29/2022 1:20 PM EDT Office Visit Cardiology at [address] [address] Liam Noel MD [facility] [place] [address] Mixed hyperlipidemia Social History Tobacco [...] recorded. ??? fluticasone propionate (Flonase) 50 mcg/actuation Counce, Suspension EVERY 12 HOURS ??? icosapent ethyL [...] 9:45 AM EDT Office Visit Dermatology at [address] [place] [address] Emiliano Salinas MD [address] [facility], [place] [address] documented as of this encounter Visit Diagnoses Diagnosis Mixed hyperlipidemia documented in this encounter Care Teams Delivery Person Relationship Specialty Start Date End Date Veronica Barrios APRN [address] [place] [address] PCP - General Family Medicine 08/27/22 03/17/23 documented as of this encounter
--- OUTSIDE RECORDS SUMMARY | 2024-02-20 13:38 | XMS_ITS | Encounter Summary ---
[place] [address] Care Team Providers Care Wet Sander Name Role Phone Mary Altamirano MD Primary Care Provider Encounter Details Date Type Department Care Team (Latest Contact Info) Description 08/01/2022 8:15 AM EST Laboratory Appointment Lab [address]L [place] [phone] Familial hypercholesterolemi a; THERESA (obstructive sleep apnea) [...] 9:45 AM EDT Office Visit Dermatology at [place] [address] [facility] [place] [address] Emiliano Salinas MD [address], BAKARI Bhatt DERMATOLOGY [place], [place] [phone] documented as of this encounter Procedures Procedure [...] AM EST) Cholesterol, Total 366 mg/dL [facility] Comment: Lower Risk: <200 mg/dL Average Risk: 200-239 mg/dL Higher Risk: >gu=798 mg/dL Triglyceride 195 mg/dL [facility] Comment: Average Risk/Lower Risk: <150 mg/dL Borderline High Risk: 150-199 mg/dL High Risk: 200-499 mg/dL Very High Risk: >qg=205 mg/dL HDL Cholesterol 91 mg/dL [facility] Comment: Males: ?? Higher Risk: <40 mg/dL Females: ?? Higher Risk: <50 mg/dL LDL Cholesterol 236 mg/dL [facility] Comment: Lowest Risk: <100 mg/dL Lower Risk: 100-129 mg/dL Borderline High Risk: 130-159 mg/dL High Risk: 160-189 mg/dL Very High Risk: >bm=387 mg/dL Cholesterol/HDL Ratio 4.0 ratio [facility] Lipid Interpretation See Note [facility] Comment: Lipid management should be guided by a patient? s ASCVD risk, goals and preferences. ACC/AHA Guidelines recommend high intensity statin if clinical ASCVD or LDL greater than or equal to 190 mg/dL. http://Virtual Paperurl.com/MSW-MZK-Dllkrnhrd Adults aged 40-75 with LDL 70-189 mg/dL should have their 10 year ASCVD risk estimated with the ACC/AHA ASCVD risk estimator printing plate making http://tools.acc.org/CJEBN-Uwus-Jjfophgqj/ Statin should be discussed if risk greater [...] Santiago MD CHEMISTRY ORDERABLES Performing Organization Address [facility] de Phone Number [facility] [place] [address] * (ABNORMAL) Apolipoprotein B (08/01/2022 7:52 AM EST) Pathologist [facility] Apolipoprotein B (OCTOBER) 169(H) mg/dL [facility] Comment: REFERENCE VALUE Desirable: <90 Above Desirable: 90-99 Borderline high: 100-119 High: 120-139 Very high: > or = 140 Test Performed by: [address] [address] Bull Driver: Kyle Michel M.D. Ph.D.; CLIA# [id number] Blood 08/01/2022 7:52 AM EST 08/01/2022 12:39 PM EST Narrative Resulting Agency Comment Spec In Lab Delfina Santiago MD LAB SEND OUT ORDERAB LES Performing Organization Address [facility] Co de Phone Number [facility] [place] [address] * Hepatic Function Panel (08/01/2022 7:52 AM EST) Protein, Total 7.1 6.1 - 8.0 g/dL [facility] Albumin 4.5 3.2 - 5.2 g/dL [facility] Aspartate Aminotransferase 19 0 - 30 unit/L [facility] Alanine Aminotransferase 18 0 - 30 unit/L [facility] Alkaline Phosphatase 75 35 - 105 unit/L [facility] Bilirubin, Total 0.4 0.2 - 1.3 mg/dL [facility] Bilirubin, Direct 0.1 0.0 - 0.3 mg/dL [facility] Blood 08/01/2022 7:52 AM EST 08/01/2022 8:07 AM EST Narrative Resulting Agency Comment Spec In Lab Delfina Santiago MD CHEMISTRY ORDERABLES Performing Organization Address City/State/[facility] Co de Phone Number [facility] [place] [address] documented in this encounter Visit Diagnoses Diagnosis Familial hypercholesterolemia Pure hypercholesterolemia THERESA (obstructive sleep apnea) Obstructive sleep apnea (adult) (pediatric) documented in this encounter Care Teams Wet Sander Relationship Specialty Start Date End Date Mary Altamirano MD PCP - General Family Medicine 01/26/22 08/26/22 documented as of this encounter
--- OUTSIDE RECORDS SUMMARY | 2024-02-20 13:38 | XMS_ITS | Encounter Summary ---
Author Organization [facility] [place] [address] Care Team Providers Care Compressed Gases Tester Name Role Phone Veronica Barrios KEISHA Primary Care Provider Encounter Details Date Type Department Care Team (Late st Contact Info) Description 08/29/2022 Specialty [place] [phone] Rissa Anderson [facility] Social History Tobacco Use Types Packs/Day Years [...] 9:45 AM EDT Office Visit Dermatology at [place] [address] [place] [phone] Emiliano Salinas MD [address], MANINDER [place] [address] documented as of this encounter Visit Diagnoses Not on filedocumented in this encounter Care Teams Compressed Gases Tester Relationship Specialty Start Date End Date Veronica Barrios APRN [address] [phone] PCP - General Family Medicine 08/27/22 03/17/23 documented as of this encounter
--- OUTSIDE RECORDS SUMMARY | 2024-02-20 13:39 | XMS_ITS | Encounter Summary ---
[place] [address] Care Team Providers Care Sand Digger Name Role Phone Mary Altamirano MD Primary Care Provider [phone] Reason for Referral * Psychiatric (Routine) - Closed Specialty Diagnoses / Procedures Referred By Contac t Referred To Contact Psychiatry Diagnoses Anxiety with depression Mary Altamirano MD [address] [place] [address] [facility] Psychiatry [address] [place] [address] Referral ID Status Reason Start Date Expiration Date V isits Requested Visits Authorized [id number] Closed Consult, Test & Treat PCP Updated and/or Approved 01/26/2022 01/26/2023 10 10 Encounter Details Date Type Department Care Team (Latest Contact Info) Description 01/26/2022 Transcribe Orders eDH Incoming Referrals [phone] Mary Altamirano MD [address] [place] [address] Anxiety with depression Social History Tobacco [...] 9:45 AM EDT Office Visit Dermatology at [place] [address] [place] [address] Emiliano Salinas MD [address], BAKARI [place] [address] Scheduled Referrals Name Type Priority Associated Diagnoses Order Schedule Referral to Psychiatry Outpatient Referral Routine Anxiety with depression Ordered: 01/26/2022 documented as of this encounter Visit Diagnoses Diagnosis Anxiety with depression documented in this encounter Care Teams Sand Digger Relationship Specialty Start Date End Date Mary Altamirano MD PCP - General Family Medicine 01/26/22 08/26/22 documented as of this encounter
--- OUTSIDE RECORDS SUMMARY | 2024-02-20 13:39 | XMS_ITS | Encounter Summary ---
Author Organization [facility] [place] [address] Care Team Providers Care A R Specialist Name Role Phone Juan Smith MD Primary Care Provider [phone] Reason for Visit * Reason Onset Date Comments Questions 12/29/2019 possible drug re action/side effects Encounter Details Date Type Department Care Team (Late st Contact Info) Description 12/29/2019 Telephone Cardiology at [address] [phone] Rere Stock, RN Questions (possible drug reaction/side [...] EDT Office Visit Dermatology at [place] [address] [facility] [place] [address] Emiliano Salinas MD [address], BAKARI [place] [address] documented as of this encounter Visit Diagnoses Not on filedocumented in this encounter Care Teams A R Specialist Relationship Specialty Start Date End Date Juan Smith MD PCP - General Family Medicine 05/10/16 09/02/21 documented as of this encounter
--- OUTSIDE RECORDS SUMMARY | 2024-02-20 13:39 | XMS_ITS | Encounter Summary ---
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 ??She was in 2002 and has had a significant other for many years. ??Boyfriend (Deacon Peterson) lives in [place].?She has??5??children??(2 biologic and 2 step) 3 biologic [...] azelastine (ASTELIN) 137 mcg (0.1 %) Aerosol, [place] 0 ??? PROVENTIL HFA 90 mcg/actuation HFA [...] Once daily ??? Mometasone (NASONEX) 50 mcg/Actuation [place] 2 [place](s) each nostril, Nasal, Twice daily No current [...] 9:45 AM EDT Office Visit Dermatology at [place] [address] [place] [address] Emiliano Salinas MD [address] [facility], MANINDER [place] [address] documented as of this encounter Visit Diagnoses Diagnosis Familial hypercholesterolemia Pure hypercholesterolemia documented in this encounter Care Teams Social Services Specialist Relationship Specialty Start Date End Date Juan Smith MD PCP - General Family Medicine 05/10/16 09/02/21 documented as of this encounter
--- OUTSIDE RECORDS SUMMARY | 2024-02-20 13:39 | XMS_ITS | Encounter Summary ---
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 She was in 2002 and has had a significant other for many years. Boyfriend (Deacon Peterson) lives in [place]. She has 5 children (2 biologic and [...] azelastine (ASTELIN) 137 mcg (0.1 %) Aerosol, [place] 0 ??? PROVENTIL HFA 90 mcg/actuation HFA [...] Once daily ??? Mometasone (NASONEX) 50 mcg/Actuation [place] 2 [place](s) each nostril, Nasal, Twice daily No current [...] 9:45 AM EDT Office Visit Dermatology at [place] [address] [facility] [place] [address] Emiliano Salinas MD [address], [place] [address] documented as of this encounter Visit Diagnoses Diagnosis Familial hypercholesterolemia Pure hypercholesterolemia documented in this encounter Care Teams Vehicle Dynamics Engineer Relationship Specialty Start Date End Date Juan Smith MD PCP - General Family Medicine 05/10/16 09/02/21 documented as of this encounter
--- OUTSIDE RECORDS SUMMARY | 2024-02-20 13:39 | XMS_ITS | Encounter Summary ---
[place] [address] Care Team Providers Care Canine Enforcement Officer Name Role Phone Juan Smith MD Primary Care Provider [phone] Reason for Visit * Reason Onset Date Comments Questions 06/15/2019 New Requirements Engineer in [place], [place] Encounter Details Date Type Department Care Team (Late st Contact [facility]) Description 06/15/2019 Telephone Cardiology at [address] [phone] Rere Stock, RN Questions (New Requirements Engineer in [place], [place]) Social History Tobacco Use Types Packs/Day [...] ask if she should see the new Requirements Engineer in [place], [place]: Dr Álvaro Sanchez. Pt encouraged to keep her 06/22/19 appt to establish care with the local supervisor machine setter as she had been seeing the previous supervisor machine setter. She will Keep Dr Montalvo for her lipid management. Pt verbalized good understanding of the current POC. documented in this encounter Plan of Treatment Upcoming Encounters Date Type Department Care Team (Late st Contact Info) Description 03/13/2024 9:45 AM EDT Office Visit Dermatology at [place] [address] [facility] [address] [place] [address] Emiliano Salinas MD [address], BAKARI [place] [address] documented as of this encounter Visit Diagnoses Not on filedocumented in this encounter Care Teams Canine Enforcement Officer Relationship Specialty Start Date End Date Juan Smith MD PCP - General Family Medicine 05/10/16 09/02/21 documented as of this encounter
--- OUTSIDE RECORDS SUMMARY | 2024-02-20 13:39 | XMS_ITS | Encounter Summary ---
[place] [address] Care Team Providers Care Size Roller Operator Name Role Phone Mary Altamirano MD Primary Care Provider [phone] Reason for Referral * Consultation (Routine) - Closed Specialty Diagnoses / Procedures Referred By Veronica brantley Referred To Contact Vascular Surgery Diagnoses Varicose veins of both lower extremities with pain #VV, GAME OPERATOR / PA Mary Altamirano MD [address] [place] [address] [facility] Vascular Surg [address] [place] [address] Referral ID Status Reason Start Date Expiration Date V isits Requested Visits Authorized [id number] Closed Consult, Test & Treat 09/03/2021 09/03/2022 10 10 Encounter Details Date Type Department Care Team (Latest Contact Info) Description 09/03/2021 Transcribe Orders eDH Incoming Referrals [phone] Mary Altamirano MD [address] [place] [address] Varicose veins of both lower extremities [...] 9:45 AM EDT Office Visit Dermatology at [place] [address] [facility] [place] [address] Emiliano Salinas MD [address], [place] [address] Scheduled Referrals Name Type Priority Associated Diagnoses Orde r Schedule Referral to Vascular Surgery Outpatient Referral Routine Varicose veins of both lower extremities with pain Ordered: 09/03/2021 documented as of this encounter Visit Diagnoses Diagnosis Varicose veins of both lower extremities with pain Varicose veins of lower extremities with other complications documented in this encounter Care Teams Size Roller Operator Relationship Specialty Start Date End Date Mary Altamirano MD PCP - General Family Medicine 09/03/21 10/11/21 documented as of this encounter
--- OUTSIDE RECORDS SUMMARY | 2024-02-20 13:39 | XMS_ITS | Encounter Summary ---
[place] [address] Care Team Providers Care Supreme Court Justice Name Role Phone Mary Altamirano MD Primary Care Provider [phone] Reason for Visit * Reason Onset Date Comments Medication Refill 10/09/2021 Encounter Details Date Type Department Care Team (Late Contact [facility]) Description 10/09/2021 Telephone Cardiology at [address] [phone] Ana Horan, prepared foods service team member Refill Social History Tobacco Use Types Packs/Day [...] of Dr. Montalvo Scripts to go to [facility] in [facility]. Chart reviewed. documented in this encounter Plan of Treatment Upcoming Encounters Date Type Department Care Team (Late st Contact Info) Description 03/13/2024 9:45 AM EDT Office Visit Dermatology at [place] [address] [place] [address] Emiliano Salinas MD [address], [place]AR[place] [address] documented as of this encounter Visit Diagnoses Not on filedocumented in this encounter Care Teams Supreme Court Justice Relationship Specialty Start Date End Date Mary Altamirano MD PCP - General Family Medicine 09/03/21 10/11/21 documented as of this encounter
--- OUTSIDE RECORDS SUMMARY | 2024-02-20 13:39 | XMS_ITS | Encounter Summary ---
[place] [address] Care Team Providers Care Transition Mgr Rn Name Role Phone Juan Smith MD Primary Care Provider [phone] Reason for Visit * Reason Onset Date Comments Follow-up 11/20/2021 FLP & Uric acid prior to next clinic visit Encounter Details Date Type Department Care Team (Late st Contact Info) Description 11/20/2021 Telephone Cardiology at [address] [address] Ana Horan RN Follow-up (FLP [...] visit with Dr Santiago. Orders e-faxed to [facility] as written by Dr Montalvo. Pt will get done Saturday am. Call placed to the mobile number listed, no answer, VM left letting her know that the orders have been faxed. She is to call if the folks at [facility] say they did not get the orders, we can refax before she leaves. Pt to call back with any questions/concerns. * Telephone Encounter - Ana Horan RN - 11/20/2021 11:58 AM EDT VM from [facility] requesting lab slips form Dr. Santiago and Selvin be sent to [facility] and she will have the lab [...] 9:45 AM EDT Office Visit Dermatology at [place] [address] [facility] [place] [address] Emiliano Salinas MD [address], [place] [address] documented as of this encounter Visit Diagnoses Not on filedocumented in this encounter Care Teams Transition Mgr Rn Relationship Specialty Start Date End Date Juan Smith MD PCP - General Family Medicine 10/12/21 01/25/22 documented as of this encounter
--- OUTSIDE RECORDS SUMMARY | 2024-02-20 13:39 | XMS_ITS | Encounter Summary ---
Author Organization [facility] [place] [address] Care Team Providers Care Well Drill Operator Cable Tool Name Role Phone Juan Smith MD Primary Care Provider [phone] Reason for Visit * Reason Onset Date Comments Follow-up 04/26/2020 med change Encounter Details Date Type Department Care Team (Late st Contact Info) Description 04/26/2020 Telephone Cardiology at [address] [phone] Rere Stock, RN Follow-up (med change) Social [...] and have the f/u labs done at [facility] prior to the visit. Order e-faxed to [facility] and a copy mailed to the [...] EDT Office Visit Dermatology at [place] [address] [place] [address] Emiliano Salinas MD [address], [place] [address] documented as of this encounter Visit Diagnoses Diagnosis Familial hypercholesterolemia Pure hypercholesterolemia documented in this encounter Care Teams Well Drill Operator Cable Tool Relationship Specialty Start Date End Date Juan Smith MD PCP - General Family Medicine 05/10/16 09/02/21 documented as of this encounter
--- OUTSIDE RECORDS SUMMARY | 2024-02-20 13:39 | XMS_ITS | Encounter Summary ---
Author Organization [facility] Address [facility] [place] [address] Care Team Providers Care Washing Machine Repairer Name Role Phone Juan Smith MD Primary Care Provider [phone] Encounter Details Date Type Department Care Team (Late st Contact Info) Description 03/16/2019 Telephone Dermatology at [facility] [address] [place] [phone] Vern Salmeron MD [facility] [address] [place] [address] Social History Tobacco Use Types Packs/Day Years [...] on 03/12. Patient can be reached at [phone] documented in this encounter Plan of Treatment Upcoming Encounters Date Type Department Care Team (Late st Contact Info) Description 03/13/2024 9:45 AM EDT Office Visit Dermatology at [place] 580 [place] [address] Emiliano Salinas MD [address] [facility], MANINDER [place] [address] documented as of this encounter Visit Diagnoses Not on filedocumented in this encounter Care Teams Washing Machine Repairer Relationship Specialty Start Date End Date Juan Smith MD PCP - General Family Medicine 05/10/16 09/02/21 documented as of this encounter
--- OUTSIDE RECORDS SUMMARY | 2024-02-20 13:39 | XMS_ITS | Encounter Summary ---
[place] [address] Care Team Providers Care Nutrition Services Assistant Name Role Phone Juan Smith MD Primary Care Provider Reason for Visit * Diagnostic Test (Routine) - Closed Specialty Diagnoses / Procedures Referred By Contac t Referred To Contact Diagnoses Asymptomatic varicose veins Procedures Venous Valvular Incomp, Bilat Legs Chet Bales, DO [address] [place] [address] [facility] Vascular Lab [address] [place] [address] Referral ID Status Reason Start Date Expiration Date V isits Requested Visits Authorized [id number] Closed Specialty Service Requested 10/10/2021 10/10/2022 1 1 Encounter Details Date Type Department Care Team (Late st Contact Info) Description 11/24/2021 10:00 AM EDT Tech [place] [address] Mukund Davis, RVT Asymptomatic varicose [...] 9:45 AM EDT Office Visit Dermatology at [place] [address] [place] [address] Emiliano Salinas MD [address], [place] [address] documented as of this encounter Procedures Procedure Name Priority Date/Time Associated Diagnosis Comments VENOUS VALVULAR INCOMP, BILAT LEGS Routine 11/24/2021 9:44 AM EDT Asymptomatic varicose veins documented in this encounter Results * Venous Valvular Incomp, Bilat Legs (11/24/2021 9:44 AM EDT) VB Text Report Department: Vascular Surgery Lab Patient: [id number] (SUNNY LUONG) CPT: [id number] Referring Physician: CHET BALES ?? Phone: Indications: [...] veins documented in this encounter Care Teams Nutrition Services Assistant Relationship Specialty Start Date End Date Juan Smith MD PCP - General Family Medicine 10/12/21 01/25/22 documented as of this encounter
--- OUTSIDE RECORDS SUMMARY | 2024-02-20 13:39 | XMS_ITS | Encounter Summary ---
[place] [address] Care Team Providers Care Memorandum Statement Clerk Name Role Phone Juan Smith MD Primary Care Provider [phone] Encounter Details Date Type Department Care Team (Late st Contact Info) Description 01/12/2020 Telephone Cardiology at [address] [phone] Tory Olivas, RN Social History Tobacco Use [...] 9:45 AM EDT Office Visit Dermatology at [place] [address] [facility] [place] [address] Emiliano Salinas MD [address], BAKAR[place] [address] documented as of this encounter Visit Diagnoses Not on filedocumented in this encounter Care Teams Memorandum Statement Clerk Relationship Specialty Start Date End Date Juan Smith MD PCP - General Family Medicine 05/10/16 09/02/21 documented as of this encounter
--- OUTSIDE RECORDS SUMMARY | 2024-02-20 13:39 | XMS_ITS | Encounter Summary ---
Author Organization [facility] [place] [address] Care Team Providers Care King Maker Name Role Phone Juan Smith MD Primary Care Provider [phone] Encounter Details Date Type Department Care Team (Latest Contact Info) Description 04/17/2019 11:20 AM EST Clinical Support Cardiology at [address] [address] Derick Acosta, RD [facility] [place] [address] Nutritional counseling Social History Tobacco Use Types [...] iodine and omega 3 FAs b) Reduce ajd-zehpflqy-wuwql foods NUTRITION MONITORING PLAN/EVALUATION/SURVEILLANCE PLAN: I will e-mail patient recipes for: veg soup, corn/seafood chowder, greene burger, or any others [email or web address] to try the 3-day menus and [...] 9:45 AM EDT Office Visit Dermatology at [place] [address] [facility] [place] [address] Emiliano Salinas MD [address], [place] [address] documented as of this encounter Visit Diagnoses Diagnosis Nutritional counseling documented in this encounter Care Teams King Maker Relationship Specialty Start Date End Date Juan Smith MD PCP - General Family Medicine 05/10/16 09/02/21 documented as of this encounter
--- OUTSIDE RECORDS SUMMARY | 2024-02-20 13:39 | XMS_ITS | Encounter Summary ---
Author Organization [facility] Address [facility] [place] [address] Care Team Providers Care Manager Civil Name Role Phone Juan Smith MD Primary Care Provider [phone] Encounter Details Date Type Department Care Team (Late st Contact Info) Description 06/01/2020 Telephone Dermatology at [facility] [address] [place] [phone] Vern Salmeron MD [facility] [address] L[place] [address] Social History Tobacco Use Types Packs/Day Years [...] AM EDT Office Visit Dermatology at [address] [place] [address] Emiliano Salinas MD [address], [place] [address] documented as of this encounter Visit Diagnoses Not on filedocumented in this encounter Care Teams Manager Civil Relationship Specialty Start Date End Date Juan Smith MD PCP - General Family Medicine 05/10/16 09/02/21 documented as of this encounter
--- OUTSIDE RECORDS SUMMARY | 2024-02-20 13:39 | XMS_ITS | Encounter Summary ---
[place] [address] Care Team Providers Care Rn Acute Name Role Phone Juan Smith MD Primary Care Provider Reason for Referral * Consultation (Routine) - Closed Specialty Diagnoses / Procedures Referred By Veronica brantley Referred To Contact Vascular Surgery Diagnoses Peripheral venous insufficiency TANSKI / TESTING DONE Ester Gupta DO [address] [place] [address] [address] [place] [address] [facility] Vascular Surg [address] [place] [address] Referral ID Status Reason Start Date Expiration Date V isits Requested Visits Authorized [id number] Closed Consult, Test & Treat 01/14/2022 01/14/2023 1 1 Encounter Details Date Type Department Care Team (Latest Contact Info) Description 01/14/2022 Transcribe Orders eDH Incoming Referrals [phone] Ester Gupta DO [address] [place] [address] [address] [place], [place] [id number] Peripheral venous insufficiency Social History Tobacco Use [...] EDT Office Visit Dermatology at [place] [address] [facility] [place] [address] Emiliano Salinas MD [address], [place] [address] Scheduled Referrals Name Type Priority Associated Diagnoses Orde r Schedule Referral to Vascular Surgery Outpatient Referral Routine Peripheral venous insufficiency Ordered: 01/14/2022 documented as of this encounter Visit Diagnoses Diagnosis Peripheral venous insufficiency Unspecified venous (peripheral) insufficiency documented in this encounter Care Teams Rn Acute Relationship Specialty Start Date End Date Juan Smith MD PCP - General Family Medicine 10/12/21 01/25/22 documented as of this encounter
--- OUTSIDE RECORDS SUMMARY | 2024-02-20 13:39 | XMS_ITS | Encounter Summary ---
[place] [address] Care Team Providers Care Router Operator Radial Name Role Phone Mary Altamirano MD Primary Care Provider Reason for Visit * Reason Onset Date Comments Medication Refill 09/28/2021 Nexletol & Zet ia Encounter Details Date Type Department Care Team (Late Contact [facility]) Description 09/28/2021 Refill Cardiology at [address] [phone] Tory Montalvo MD Medication Refill (Nexletol & [...] is transferring her care to Cardiology in [facility] and would like to getthe Nexletol and Zetia sent to the [facility] at [facility] to get her to the appt with the animal trapper in [facility]. Refill pended to Dr Montalvo. documented in this encounter Plan of Treatment Upcoming Encounters Date Type Department Care Team (Late st Contact Info) Description 03/13/2024 9:45 AM EDT Office Visit Dermatology at [place] [address] [facility] [place] [address] Emiliano Salinas MD [address], [place]AKAR[place] [address] documented as of this encounter Visit Diagnoses Diagnosis Familial hypercholesterolemia Pure hypercholesterolemia documented in this encounter Care Teams Router Operator Radial Relationship Specialty Start Date End Date Mary Altamirano MD PCP - General Family Medicine 09/03/21 10/11/21 documented as of this encounter
--- OUTSIDE RECORDS SUMMARY | 2024-02-20 13:39 | XMS_ITS | Encounter Summary ---
[place] [address] Care Team Providers Care Core Inserter Name Role Phone Juan Smith MD Primary Care Provider [phone] Reason for Visit * Reason Comments Medication Refill Encounter Details Date Type Department Care Team (Late st Contact Info) Description 10/12/2020 Refill Cardiology at [address] [phone] Tory Montalvo MD Medication Refill Social History [...] 9:45 AM EDT Office Visit Dermatology at [address] [place] [phone] Emiliano Salinas MD [address], [place] [address] documented as of this encounter Visit Diagnoses Diagnosis Familial hypercholesterolemia Pure hypercholesterolemia documented in this encounter Care Teams Core Inserter Relationship Specialty Start Date End Date Juan Smith MD PCP - General Family Medicine 05/10/16 09/02/21 documented as of this encounter
--- OUTSIDE RECORDS SUMMARY | 2024-02-20 13:39 | XMS_ITS | Encounter Summary ---
Author Organization [facility] [place] [address] Care Team Providers Care Traveling Operator Name Role Phone Juan Smith MD Primary Care Provider [phone] Encounter Details Date Type Department Care Team (Late st Contact Info) Description 04/19/2020 Telephone Cardiology at [address] [phone] Leona Vallejo, RN Social History Tobacco Use [...] like it sent to the [facility] in [facility] if able. She also requests to have her f/u labs in [facility] as well. Will send lab order to [facility] Leona Vallejo senior principal process engineer Clinic at [facility] [phone] documented in this encounter Plan of Treatment Upcoming Encounters Date Type Department Care Team (Late st Contact Info) Description 03/13/2024 9:45 AM EDT Office Visit Dermatology at [place] [address] [place] [phone] Emiliano Salinas MD [address], [place] [address] documented as of this encounter Visit Diagnoses Diagnosis Familial hypercholesterolemia Pure hypercholesterolemia documented in this encounter Care Teams Traveling Operator Relationship Specialty Start Date End Date Juan Smith MD PCP - General Family Medicine 05/10/16 09/02/21 documented as of this encounter
--- OUTSIDE RECORDS SUMMARY | 2024-02-20 13:39 | XMS_ITS | Encounter Summary ---
Author Organization [facility]ly [facility] [place] [address] Care Team Providers Care Toby Maker Name Role Phone Mary Altamirano MD Primary Care Provider Encounter Details Date Type Department Care Team (Late st Contact Info) Description 01/29/2022 1:20 PM EDT Office Visit Cardiology at [address] [place] [phone] Delfina Santiago MD [facility] [place] [address] Familial hypercholesterolemia; THERESA (obstructive sleep apnea) Social [...] symptoms. 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 (she does rent out a room to a friend). ??She was in 2002 and has had a significant other for many years. ??Her significant other (Deacon Peterson) lives in [place].?She has??5??children and 3 biologic and 8 step??grandchildren. [...] azelastine (ASTELIN) 137 mcg (0.1 %) Aerosol, [place] 0 ??? PROVENTIL HFA 90 mcg/actuation HFA [...] Once daily ??? Mometasone (NASONEX) 50 mcg/Actuation [place] 2 [place](s) each nostril, Nasal, Twice daily No current [...] Not on file Occupational History ??? 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 since 2002, boyfriend x [...] weeks. These will be at [facility] 01/17/22 apoB 89Lp(a) 19.8 (ULN < [...] previous lipid evaluation and recommendations; 30 minutes pime-sa-hdoz and 10 minutes coordination of care 1) cgbk-vd-tfed counseling as noted above 2) reviewing past medical records, cardiac testing, results of laboratory testing 3) coordinating care with other physicians and allied health care providers Delfina Santiago MD, Vonnie, FACC, FNLA Attending Lead Loader Sports Card[facility] Program Preventive Cardiology Lipid Clinic Advanced Hypertension [facility] documented in this encounter Plan of Treatment Upcoming Encounters Date Type Department Care Team (Late st Contact Info) Description 03/13/2024 9:45 AM EDT Office Visit Dermatology at [place] [address] [facility] [place] [phone] Emiliano Salinas MD [address], BAKAR[place] [address] documented as of this encounter Results * Apolipoprotein B (02/16/2022 11:51 AM EDT) Apolipoprotein B (OCTOBER) 85 mg/dL [facility] Comment: REFERENCE VALUE Desirable: <90 Above Desirable: 90-99 Borderline high: 100-119 High: 120-139 Very high: > or = 140 Test Performed by: [place] [address] International Relations Professor: Kyle Michel M.D. Ph.D.; CLIA# [id number] Blood 02/16/2022 11:5 1 AM EDT 02/16/2022 3:50 PM EDT Narrative Resulting Agency Comment Spec In Lab Delfina Santiago MD LAB SEND OUT ORDERAB LES Performing Organization Address City/State/[facility] Co de Phone Number [facility] [place] [address] documented in this encounter Visit Diagnoses Diagnosis Familial hypercholesterolemia Pure hypercholesterolemia THERESA (obstructive sleep apnea) Obstructive sleep apnea (adult) (pediatric) documented in this encounter Care Teams Toby Maker Relationship Specialty Start Date End Date Mary Altamirano MD PCP - General Family Medicine 01/26/22 08/26/22 documented as of this encounter
--- OUTSIDE RECORDS SUMMARY | 2024-02-20 13:39 | XMS_ITS | Encounter Summary ---
[place] [address] Care Team Providers Care Associate Professor Of Theatre Name Role Phone Juan Smith MD Primary Care Provider [phone] Encounter Details Date Type Department Care Team (Late st Contact Info) Description 10/08/2019 Orders Only Cardiology at [address] [phone] Tory Montalvo MD Familial hypercholesterolemia; Coronary artery disease, angina presence unspecified, unspecified vessel or lesion type, unspecified whether [place] or transplanted heart Social History Tobacco Use [...] 9:45 AM EDT Office Visit Dermatology at [place] [address] [facility] [place] [phone] Emiliano Salinas MD [address], BAKARI A DERMATOLOGY [place], [place] [phone] documented as of this encounter Visit Diagnoses Diagnosis Familial hypercholesterolemia Pure hypercholesterolemia Coronary artery disease, angina presence unspecified, unspecified vessel or lesion type, unspecified whether [place] or transplanted heart documented in this encounter Care Teams Associate Professor Of Theatre Relationship Specialty Start Date End Date Juan Smith MD PCP - General Family Medicine 05/10/16 09/02/21 documented as of this encounter
--- OUTSIDE RECORDS SUMMARY | 2024-02-20 13:39 | XMS_ITS | Encounter Summary ---
Author Organization [facility] [place] [address] Care Team Providers Care Data Base Design Analyst Name Role Phone Juan Smith MD Primary Care Provider [phone] Reason for Referral * Diagnostic Test (Routine) - Closed Specialty Diagnoses / Procedures Referred By Contac t Referred To Contact Radiology Diagnoses Familial hypercholesterolemia Procedures CT Heart For Coronary Calcium wo Contrast (Prepaid) Tory Chambers MD [facility] [place] [address] [facility] [place] [address] Referral ID Status Reason Start Date Expiration Date V isits Requested Visits Authorized [id number] Closed Specialty Service Requested 10/28/2020 04/30/2022 1 1 Encounter Details Date Type Department Care Team (Latest Contact Info) Description 10/28/2020 3:20 PM EDT Office Visit Cardiology at [address] [phone] Tory Chambers MD Familial hypercholesterolemia [...] Chambers MD - 10/28/2020 3:20 PM EDT [facility] [...] history:??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 ??She was in 2002 and has had a significant other for many years. ??Her significant other (Deacon Peterson) lives in [place].?She has??5??children and 3 biologic and 8 step??grandchildren. [...] azelastine (ASTELIN) 137 mcg (0.1 %) Aerosol, [place] 0 ??? PROVENTIL HFA 90 mcg/actuation HFA [...] Once daily ??? Mometasone (NASONEX) 50 mcg/Actuation [place] 2 [place](s) each nostril, Nasal, Twice daily No current [...] 9:45 AM EDT Office Visit Dermatology at [place] [address] [facility] [place] [address] Emiliano Salinas MD [address] [facility], BAKARI [place] [address] [phone] (work) documented as of this encounter Results [...] who have questions please contact the health patient care director that requested your imaging first. ? Electronically signed by: Celestina Murillo MD, [facility] ([phone]), at 02/16/2022 3:30 PM Narrative 02/16/2022 3:30 PM EDT EXAMINATION: CT HEART FOR CORONARY CALCIUM WO CONTRAST (PREPAID) CLINICAL HISTORY: Hyperlipidemia 120; patient with elevated LDL and side effects to medications COMPARISON: None. TECHNIQUE: 3.0 mm thick axial contiguous sections through the heart were obtained via ECG-gated axial mode acquisition without intravenous contrast. Craniocaudal coverage and qsyif-no-rxsg were restricted to the heart. Post-processing was [...] mode acquisition without intravenouscontrast. Craniocaudal coverage and vuwpj-ro-sejq were restricted to the heart. Post-processing was [...] patients who have questions please contactthe health patient care director that requested your imaging first. Electronically signed by: Celestina Murillo MD, [facility] ([phone]), at 02/16/2022 3:30 PM Tory Chambers MD IMG CT ORDERABLES documented in this encounter Visit Diagnoses Diagnosis Familial hypercholesterolemia Pure hypercholesterolemia Familial hypercholesterolemia Pure hypercholesterolemia documented in this encounter Care Teams Data Base Design Analyst Relationship Specialty Start Date End Date Juan Smith MD PCP - General Family Medicine 05/10/16 09/02/21 documented as of this encounter
--- OUTSIDE RECORDS SUMMARY | 2024-02-20 13:39 | XMS_ITS | Encounter Summary ---
[place] [address] Care Team Providers Care Resource Economist Name Role Phone Juan Smith MD Primary Care Provider [phone] Encounter Details Date Type Department Care Team (Latest Contact Info) Description 08/31/2020 Orders Only Cardiology at [address] [phone] Tory Montalvo MD Familial hypercholesterolemia Social History [...] 9:45 AM EDT Office Visit Dermatology at [place] [address] [facility] [place] [address] Emiliano Salinas MD [address], BAKARI Bhatt DERMATOLOGY [place], [place] [address] documented as of this encounter Results * Uric acid (02/16/2022 11:51 AM EDT) Uric Acid 5.4 2.5 - 6.5 mg/dL [facility] Blood 02/16/2022 11:5 1 AM EDT 02/16/2022 12:02 PM EDT Narrative Resulting Agency Comment Spec In Lab Tory Montalvo MD CHEMISTRY ORDERABLES Performing Organization Address City/State/[facility] Co de Phone Number [facility] [place] [phone] documented in this encounter Visit Diagnoses Diagnosis Familial hypercholesterolemia Pure hypercholesterolemia documented in this encounter Care Teams Resource Economist Relationship Specialty Start Date End Date Juan Smith MD PCP - General Family Medicine 05/10/16 09/02/21 documented as of this encounter
--- OUTSIDE RECORDS SUMMARY | 2024-02-20 13:39 | XMS_ITS | Encounter Summary ---
[place] [address] Care Team Providers Care Aircraft Designer Name Role Phone Juan Smith MD Primary Care Provider [phone] Encounter Details Date Type Department Care Team (Late st Contact Info) Description 12/21/2021 Telephone Cardiology at [address] [phone] Dariela Manzano, RN Social History Tobacco Use [...] also asking for a referral to a investigative shopper in [place]. Forward to Dr Santiago documented in this encounter Plan of Treatment Upcoming Encounters Date Type Department Care Team (Late st Contact Info) Description 03/13/2024 9:45 AM EDT Office Visit Dermatology at [place] [address] [facility] [place] [address] Emiliano Salinas MD [address], BAKAR[place] [address] documented as of this encounter Visit Diagnoses Not on filedocumented in this encounter Care Teams Aircraft Designer Relationship Specialty Start Date End Date Juan Smith MD PCP - General Family Medicine 10/12/21 01/25/22 documented as of this encounter
--- OUTSIDE RECORDS SUMMARY | 2024-02-20 13:39 | XMS_ITS | Encounter Summary ---
[place] [address] Care Team Providers Care Individualized Education Plan Aide Name Role Phone Juan Smith MD Primary Care Provider [phone] Encounter Details Date Type Department Care Team (Latest Contact Info) Description 03/12/2019 9:25 AM EDT - 03/12/2019 11:59 PM EDT Hospital Encounter [place] [phone] Tory Montalvo MD Chest pain, unspecified type; [...] azelastine (ASTELIN) 137 mcg (0.1 %) Aerosol, [place] 0 11/06/2017 0 09/03/2022 ASCORBATE CALCIUM (VITAMIN C ORAL) Take by mouth. 09/03/2022 ERGOCALCIFEROL, VITAMIN D2, (VITAMIN D ORAL) Take by mouth. multivitamin (THERAGRAN) tablet Take 1 tablet by mouth daily. 09/03/2022 fexofenadine (EVANGELINA) 180 mg tablet 180 mg, PO, Once daily 08/28/2010 09/03/2022 Mometasone (NASONEX) 50 mcg/Actuation [place] 2 [place](s) each nostril, Nasal, Twice daily 08/28/2010 09/03/2022 documented as of this encounter Plan of Treatment Upcoming Encounters Date Type Department Care Team (Late st Contact Info) Description 03/13/2024 9:45 AM EDT Office Visit Dermatology at [place] [address] [place] [address] Emiliano Salinas MD [address], BAKARI [place] [address] documented as of this encounter Procedures Procedure [...] breath documented in this encounter Care Teams Individualized Education Plan Aide Relationship Specialty Start Date End Date Juan Smith MD PCP - General Family Medicine 05/10/16 09/02/21 documented as of this encounter
--- OUTSIDE RECORDS SUMMARY | 2024-02-20 13:39 | XMS_ITS | Encounter Summary ---
[place] [address] Care Team Providers Care Street Light Mechanic Name Role Phone Mary Altamirano MD Primary Care Provider Reason for Referral * Diagnostic Test (Routine) - Closed Specialty Diagnoses / Procedures Referred By Veronica brantley Referred To Contact Diagnoses Asymptomatic varicose veins Procedures Venous Valvular Incomp, Bilat Legs Chet Bales DO [address] [place] [address] [address] [place] [address] [facility] Vascular Lab [address] [place] [address] Referral ID Status Reason Start Date Expiration Date V isits Requested Visits Authorized [id number] Closed Specialty Service Requested 10/10/2021 10/10/2022 1 1 Encounter Details Date Type Department Care Team (Late st Contact Info) Description 10/10/2021 Transcribe [place] [address] Chet Bales DO [address] [place] [address] [address] [place] [address] Asymptomatic varicose veins Social History [...] 9:45 AM EDT Office Visit Dermatology at [place] [address] [place] [phone] Emiliano Salinas MD [address], BAKARI Nova DERMATOLOGY [place], [place] [phone] documented as of this encounter Results * Venous Valvular Incomp, Bilat Legs (11/24/2021 9:44 AM EDT) VB Text Report Department: Vascular Surgery Lab Patient: [id number] (YESSENIA LUONG) CPT: 82757 Referring Physician: CHET BALES ?? Phone: Indications: [...] veins documented in this encounter Care Teams Street Light Mechanic Relationship Specialty Start Date End Date Mary Altamirano MD PCP - General Family Medicine 09/03/21 10/11/21 documented as of this encounter
--- OUTSIDE RECORDS SUMMARY | 2024-02-20 13:39 | XMS_ITS | Encounter Summary ---
[place] [address] Care Team Providers Care Coding Analyst Name Role Phone Juan Smith MD Primary Care Provider Reason for Visit * Reason Comments Medication Refill Encounter Details Date Type Department Care Team (Late st Contact Info) Description 05/14/2021 Refill Cardiology at [address] [phone] Tory Montalvo MD Medication Refill Social History [...] AM EDT Office Visit Dermatology at [address] [place] [phone] Emiliano Salinas MD [address], [place] [address] documented as of this encounter Visit Diagnoses Diagnosis Familial hypercholesterolemia Pure hypercholesterolemia documented in this encounter Care Teams Coding Analyst Relationship Specialty Start Date End Date Juan Smith MD PCP - General Family Medicine 10/12/21 01/25/22 documented as of this encounter
--- OUTSIDE RECORDS SUMMARY | 2024-02-20 13:39 | XMS_ITS | Encounter Summary ---
Author Organization Formerly [facility], [facility] [place] [address] Care Team Providers Care Capacity Planning Analyst Name Role Phone Juan Smith MD Primary Care Provider [phone] Encounter Details Date Type Department Care Team (Latest Contact Info) Description 10/09/2019 2:00 PM EDT TH Visit (TeleHealth) Cardiology at [address] [phone] Tory Montalvo MD Familial hypercholesterolemia Social History [...] completely intolerant of statins. I asked my manager knowledge, Basilia Mart to schedule Yessenia for a [...] 9:45 AM EDT Office Visit Dermatology at [place] [address] [facility] [place] [address] Emiliano Salinas MD [address] [facility], [place] [address] documented as of this encounter Visit Diagnoses Diagnosis Familial hypercholesterolemia Pure hypercholesterolemia documented in this encounter Care Teams Capacity Planning Analyst Relationship Specialty Start Date End Date Juan Smith MD PCP - General Family Medicine 05/10/16 09/02/21 documented as of this encounter
--- OUTSIDE RECORDS SUMMARY | 2024-02-20 13:39 | XMS_ITS | Encounter Summary ---
[place] [address] Care Team Providers Care Toeing Stockings Name Role Phone Juan Smith MD Primary Care Provider [phone] Encounter Details Date Type Department Care Team (Latest Contact Info) Description 09/30/2020 Orders Only Cardiology at [address] [phone] Tory Montalvo MD Familial hypercholesterolemia Social History [...] 9:45 AM EDT Office Visit Dermatology at [place] [address] [place] [phone] Emiliano Salinas MD [address], BAKARI Nova DERMATOLOGY [place], [place] [phone] documented as of this encounter Visit Diagnoses Diagnosis Familial hypercholesterolemia Pure hypercholesterolemia documented in this encounter Care Teams Toeing Stockings Relationship Specialty Start Date End Date Juan Smith MD PCP - General Family Medicine 05/10/16 09/02/21 documented as of this encounter
--- OUTSIDE RECORDS SUMMARY | 2024-02-20 13:39 | XMS_ITS | Encounter Summary ---
[place] [address] Care Team Providers Care Firer Retort Name Role Phone Juan Smith MD Primary Care Provider [phone] Reason for Visit * Reason Onset Date Comments Prior Authorization 09/01/2020 Nexlatol Encounter Details Date Type Department Care Team (Late st Contact Info) Description 09/01/2020 Telephone Cardiology at [address] [phone] Rere Stock activities therapist (Nexlatol) Social History Tobacco Use Types Packs/Day [...] EDT The following outcome notification received from [facility] Meds: YESSENIA LUONG Gonsales: [id number] - PA - Rx #: [id number] Need help? Call us at Outcome Approvedtoday Your request has been approved DrugNexletol 180MG [facility] Original Claim [id number] Call placed to the [facility] pharmacy with the approval. No answer at the pharmacy. Call placed to pt with the above information. No answer at the home number listed. Message left for the pt to call her [facility] pharmacy to arrange getting her medication refilled. She is to call cardiology with any questions. * Telephone Encounter - Rere Stock RN - 09/02/2020 1:31 PM EDT Checking on the status of the PA requests, this video games storywriter noted that the request had not been sent to [facility]. Form re-faxed. YESSENIA LUONG (Gonsales: [id number]) Your information has been submitted to [facility] Medicare Part D. [facility] Medicare Part D will review the request and will issue a decision, typically within 1-3 days from your submission. You can check the updated outcome later by reopening this request. If [facility] Medicare Part D has not responded in 1-3 days or if you have any questions about your ePA request, please contact [employer] Medicare Part D at [phone]. If you think there may be a [...] review. Awaiting the determination. YESSENIA LUONG Gonsales: [id number] - NOMI - Rx #: [id number] Need help? Call us at Status Additional Information Required DrugNexletol 180MG tablets [facility] Electronic PA Form Original Claim [id number] documented in this encounter Plan of Treatment Upcoming Encounters Date Type Department Care Team (Late st Contact Info) Description 03/13/2024 9:45 AM EDT Office Visit Dermatology at [place] [address] [facility] [place] [address] Emiliano Salinas MD [address], [place] [address] documented as of this encounter Visit Diagnoses Not on filedocumented in this encounter Care Teams Firer Retort Relationship Specialty Start Date End Date Juan Smith MD PCP - General Family Medicine 05/10/16 09/02/21 documented as of this encounter
--- OUTSIDE RECORDS SUMMARY | 2024-02-20 13:39 | XMS_ITS | Encounter Summary ---
Author Organization [facility] Address [facility] [place] [address] Care Team Providers Care Senior Control Systems Engineer Name Role Phone Juan Smith MD Primary Care Provider [phone] Encounter Details Date Type Department Care Team (Late st Contact Info) Description 05/26/2021 Telephone Cardiology at [address] [place] [address] Liam Noel MD [facility] [place] [address] Social History Tobacco Use Types Packs/Day Years [...] Dr. Montalvo's office * Telephone Encounter - Angel Luis Christiana G - 05/26/2021 3:25 PM EST Patient called, she sees Dr. Rodriguez @ [facility] Cardiology for her cholesterol. She is asking if Dr. Noel or Dr. Daniel deal with this issue. She takes Nexletol with Zetia as she can not take statins. She would like to get out of the trips to [facility] and have a Access Director here. #[phone] documented in this encounter Plan of Treatment Upcoming Encounters Date Type Department Care Team (Late st Contact Info) Description 03/13/2024 9:45 AM EDT Office Visit Dermatology at [place] [address] [facility] [place] [address] Emiliano Salinas MD [address], [place] [address] documented as of this encounter Visit Diagnoses Not on filedocumented in this encounter Care Teams Senior Control Systems Engineer Relationship Specialty Start Date End Date Juan Smith MD PCP - General Family Medicine 05/10/16 09/02/21 documented as of this encounter
--- OUTSIDE RECORDS SUMMARY | 2024-02-20 13:39 | XMS_ITS | Encounter Summary ---
[place] [address] Care Team Providers Care Executive Marketing Assistant Name Role Phone Juan Smith MD Primary Care Provider [phone] Encounter Details Date Type Department Care Team (Latest Contact Info) Description 04/17/2019 10:00 AM EST Laboratory Appointment Lab [address]L [place] [phone] Familial hypercholesterolemia Social History Tobacco Use Types [...] 9:45 AM EDT Office Visit Dermatology at [place] [address] [place] [address] Emiliano Salinas MD [address], [place] [address] documented as of this encounter Procedures Procedure Name Priority Date/Time Associated Diagnosis Comments HC HSCRP Routine 04/17/2019 9:21 AM EST Familial hypercholesterolemia LIPID PANEL (REFLEX DIRECT LDL) Routine 04/17/2019 9:21 AM EST Familial hypercholesterolemia documented in this encounter Results * Lipid Panel (Reflex Direct LDL) (04/17/2019 9:21 AM EST) Cholesterol, Total 252 mg/dL [facility] Comment: Lower Risk: <200 mg/dL Average Risk: 200-239 mg/dL Higher Risk: >eg=197 mg/dL Triglyceride 157 mg/dL [facility] Comment: Average Risk/Lower Risk: <150 mg/dL Borderline High Risk: 150-199 mg/dL High Risk: 200-499 mg/dL Very High Risk: >gx=737 mg/dL HDL Cholesterol 74 mg/dL [facility] Comment: Males: ?? Higher Risk: <40 mg/dL Females: ?? HIgher Risk: <50 mg/dL LDL Cholesterol 147 mg/dL [facility] Comment: Lowest Risk: <100 mg/dL Lower Risk: 100-129 mg/dL Borderline High Risk: 130-159 mg/dL High Risk: 160-189 mg/dL Very High Risk: >ux=122 mg/dL Cholesterol/HDL Ratio 3.4 ratio [facility] Lipid Interpretation See Note [facility] Comment: Lipid management should be guided by a patient? s ASCVD risk, goals and preferences. ACC/AHA Guidelines recommend high intensity statin if clinical ASCVD or LDL greater than or equal to 190 mg/dL. http://tinyurl.com/OXB-FDT-Ogdmufsmn Adults aged 40-75 with LDL 70-189 mg/dL should have their 10 year ASCVD risk estimated with the ACC/AHA ASCVD risk job estimator http://tools.acc.org/DEZWE-Vhoc-Jiceoiqpv/ Statin should be discussed if risk greater [...] Montalvo MD CHEMISTRY ORDERABLES [facility] [place] [address] * CRP, cardiac risk (HS CRP) (04/17/2019 [...] Montalvo MD CHEMISTRY ORDERABLES Performing Organization Address City/State/[facility] Co de Phone Number [facility] [place] [address] documented in this encounter Visit Diagnoses Diagnosis Familial hypercholesterolemia Pure hypercholesterolemia documented in this encounter Care Teams Executive Marketing Assistant Relationship Specialty Start Date End Date Juan Smith MD PCP - General Family Medicine 05/10/16 09/02/21 documented as of this encounter
--- OUTSIDE RECORDS SUMMARY | 2024-02-20 13:39 | XMS_ITS | Encounter Summary ---
[place] [address] Care Team Providers Care Packer Dried Beef Name Role Phone Juan Smith MD Primary Care Provider [phone] Reason for Visit * Reason Comments Medication Refill Encounter Details Date Type Department Care Team (Late st Contact Info) Description 01/18/2021 Refill Cardiology at [address] [phone] Tory Montalvo MD Medication Refill Social History [...] AM EDT Office Visit Dermatology at [address] [place] [phone] Emiliano Salinas MD [address], [place] [address] documented as of this encounter Visit Diagnoses Diagnosis Familial hypercholesterolemia Pure hypercholesterolemia documented in this encounter Care Teams Packer Dried Beef Relationship Specialty Start Date End Date Juan Smith MD PCP - General Family Medicine 10/12/21 01/25/22 documented as of this encounter
--- OUTSIDE RECORDS SUMMARY | 2024-02-20 13:39 | XMS_ITS | Encounter Summary ---
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, pt would like to transfer care to Mary Sands MD [address] [place] [address] [facility] Cardiology [address] [place] [phone] Referral ID Status Reason Start Date Expiration Date V isits Requested Visits Authorized [id number] Closed Consult, Test & Treat PCP Updated and/or Approved 10/12/2021 10/12/2022 10 10 Encounter Details Date Type Department Care Team (Latest Contact Info) Description 10/12/2021 Transcribe Orders eDH Incoming Referrals [phone] Mary Altamirano MD [address] [place] [address] Familial hypercholesterolemia Social History Tobacco Use [...] 9:45 AM EDT Office Visit Dermatology at [place] [address] [facility] [place] [address] Emiliano Salinas MD [address], [place] [address] Scheduled Referrals Name Type Priority Associated Diagnoses Orde r Schedule Referral to Cardiology Outpatient Referral Routine Familial hypercholesterolemia Ordered: 10/12/2021 documented as of this encounter Visit Diagnoses Diagnosis Familial hypercholesterolemia Pure hypercholesterolemia documented in this encounter Care Teams Engine Turner Relationship Specialty Start Date End Date Juan Smith MD PCP - General Family Medicine 10/12/21 01/25/22 documented as of this encounter
--- OUTSIDE RECORDS SUMMARY | 2024-02-20 13:39 | XMS_ITS | Encounter Summary ---
Author Organization [facility] [place] [address] Care Team Providers Care Credit Correspondence Clerk Name Role Phone Mary Altamirano MD Primary Care Provider Reason for Referral * Diagnostic Test (Routine) - Closed Specialty Diagnoses / Procedures Referred By Contac t Referred To Contact Radiology Diagnoses Familial hypercholesterolemia Procedures CT Heart For Coronary Calcium wo Contrast (Prepaid) Tory Montalvo MD [facility] [place] [address] [facility] [place] [address] Referral ID Status Reason Start Date Expiration Date V isits Requested Visits Authorized [id number] Closed Specialty Service Requested 10/28/2020 04/30/2022 1 1 Reason for Visit * Diagnostic Test (Routine) - Closed Specialty Diagnoses / Procedures Referred By Contac t Referred To Contact Radiology Diagnoses Familial hypercholesterolemia Procedures CT Heart For Coronary Calcium wo Contrast (Prepaid) Tory Montalvo MD [facility] [place] [address] [facility] [place] [address] Referral ID Status Reason Start Date Expiration Date V isits Requested Visits Authorized [id number] Closed Specialty Service Requested 10/28/2020 04/30/2022 1 1 Encounter Details Date Type Department Care Team (Latest Contact Info) Description 02/16/2022 10:23 AM EDT - 02/16/2022 11:59 PM EDT Hospital Encounter CT Scan at [facility] [place] [address] Tory Montalvo MD Familial hypercholesterolemia Discharge Disposition: [...] End Date fluticasone propionate (Flonase) 50 mcg/actuation [place], Suspension Every 12 hours. 10/17/2020 EPINEPHrine 0.3 [...] azelastine (ASTELIN) 137 mcg (0.1 %) Aerosol, [place] 0 11/06/2017 0 09/03/2022 ASCORBATE CALCIUM (VITAMIN C ORAL) Take by mouth. 09/03/2022 ERGOCALCIFEROL, VITAMIN D2, (VITAMIN D ORAL) Take by mouth. multivitamin (THERAGRAN) tablet Take 1 tablet by mouth daily. 09/03/2022 fexofenadine (EVANGELINA) 180 mg tablet 180 mg, PO, Once daily 08/28/2010 09/03/2022 Mometasone (NASONEX) 50 mcg/Actuation [place] 2 [place](s) each nostril, Nasal, Twice daily 08/28/2010 09/03/2022 documented as of this encounter Plan of Treatment Upcoming Encounters Date Type Department Care Team (Late st Contact Info) Description 03/13/2024 9:45 AM EDT Office Visit Dermatology at [place] [address] [facility] [place] [address] Emiliano Salinas MD [address] [facility] [address], BAKAR[place] [address] documented as of this encounter Procedures Procedure [...] who have questions please contact the health regular senior care provider that requested your imaging first. ? Electronically signed by: Celestina Murillo MD, [facility] ([phone]), at 02/16/2022 3:30 PM Narrative 02/16/2022 3:30 PM EDT EXAMINATION: CT HEART FOR CORONARY CALCIUM WO CONTRAST (PREPAID) CLINICAL HISTORY: Hyperlipidemia 120; patient with elevated LDL and side effects to medications COMPARISON: None. TECHNIQUE: 3.0 mm thick axial contiguous sections through the heart were obtained via ECG-gated axial mode acquisition without intravenous contrast. Craniocaudal coverage and kdxig-vs-gjim were restricted to the heart. Post-processing was [...] mode acquisition without intravenouscontrast. Craniocaudal coverage and kwrev-uv-[id number] were restricted to the heart. Post-processing was [...] patients who have questions please contactthe health regular senior care provider that requested your imaging first. Electronically signed by: Celestina Murillo MD, [facility] ([phone]), at 02/16/2022 3:30 PM Tory Montalvo MD IMG CT ORDERABLES documented in this encounter Visit Diagnoses Diagnosis Familial hypercholesterolemia Pure hypercholesterolemia documented in this encounter Care Teams Credit Correspondence Clerk Relationship Specialty Start Date End Date Mary Altamirano MD PCP - General Family Medicine 01/26/22 08/26/22 documented as of this encounter
--- OUTSIDE RECORDS SUMMARY | 2024-02-20 13:39 | XMS_ITS | Encounter Summary ---
[place] [address] Care Team Providers Care Drag Down Name Role Phone Juan Smith MD Primary Care Provider [phone] Reason for Visit * Reason Onset Date Comments Questions 10/19/2019 more lab orders? Encounter Details Date Type Department Care Team (Late st Contact Info) Description 10/19/2019 Telephone Cardiology at [address] [phone] Rere Stock RN Questions (more lab orders?) [...] 9:45 AM EDT Office Visit Dermatology at [place] [address] [facility] [place] [address] Emiliano Salinas MD [address] [facility], BAKAR[place] [address] documented as of this encounter Visit Diagnoses Not on filedocumented in this encounter Care Teams Drag Down Relationship Specialty Start Date End Date Juan Smith MD PCP - General Family Medicine 05/10/16 09/02/21 documented as of this encounter
--- OUTSIDE RECORDS SUMMARY | 2024-02-20 13:39 | XMS_ITS | Encounter Summary ---
[place] [address] Care Team Providers Care Manager Ob Name Role Phone Juan Smith MD Primary Care Provider [phone] Reason for Visit * Reason Onset Date Comments Questions 04/04/2021 cholesterol med restart Encounter Details Date Type Department Care Team (Late st Contact Info) Description 04/04/2021 Telephone Cardiology at [address] [phone] Rere Stock, RN Questions (cholesterol med restart) [...] left for the pt to call this short story writer to see if her symptoms have resolved and when she is going to restart her meds. Awaiting a call back documented in this encounter Plan of Treatment Upcoming Encounters Date Type Department Care Team (Late st Contact Info) Description 03/13/2024 9:45 AM EDT Office Visit Dermatology at [place] 580 [place] [address] Emiliano Salinas MD [address], [place] [address] documented as of this encounter Visit Diagnoses Not on filedocumented in this encounter Care Teams Manager Ob Relationship Specialty Start Date End Date Juan Smith MD PCP - General Family Medicine 05/10/16 09/02/21 documented as of this encounter
--- OUTSIDE RECORDS SUMMARY | 2024-02-20 13:39 | XMS_ITS | Encounter Summary ---
Author Organization [facility] [place] [address] Care Team Providers Care Cane Flume Chute Operator Name Role Phone Mary Altamirano MD Primary Care Provider Reason for Visit * Consultation (Routine) - Closed Specialty Diagnoses / Procedures Referred By Veronica brantley Referred To Contact Vascular Surgery Diagnoses Peripheral venous insufficiency MARY / TESTING DONE Ester Gupta, [address] [place] [address] [facility] Vascular Surg [address] [place] [address] Referral ID Status Reason Start Date Expiration Date V isits Requested Visits Authorized [id number] Closed Consult, Test & Treat 01/14/2022 01/14/2023 1 1 Encounter Details Date Type Department Care Team (Late st Contact Info) Description 02/16/2022 9:30 AM EDT Office Visit [place] [address] Kyle Pagan III, MD [address] [place] [address] [place] [address] Varicose veins of left lower extremity with [...] azelastine (ASTELIN) 137 mcg (0.1 %) Aerosol, [place], , Disp: , Rfl: 0 ??? PROVENTIL [...] , Rfl: ??? Mometasone (NASONEX) 50 mcg/Actuation [place], 2 [place](s) each nostril, Nasal, Twice daily, Disp: , [...] Visit from 02/16/2022 in Vascular Surgery at [facility] Weight 72.6 kg (160 lb) Height 161.3 [...] 9:45 AM EDT Office Visit Dermatology at [place] [address] [facility] [place] [address] Emiliano Salinas MD [address] [facility], [place] [address] Scheduled Referrals Name Type Priority Associated Diagnoses Orde r Schedule Referral to Vascular Surgery Outpatient Referral Routine Peripheral venous insufficiency Ordered: 01/14/2022 documented as of this encounter Visit Diagnoses Diagnosis 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
--- OUTSIDE RECORDS SUMMARY | 2024-02-20 13:39 | XMS_ITS | Encounter Summary ---
Author Organization Formerly [facility] [place] [address] Care Team Providers Care Road Equipment Operator Name Role Phone Juan Smith MD Primary Care Provider [phone] Encounter Details Date Type Department Care Team (Late st Contact Info) Description 12/24/2019 Telephone Cardiology at [address] [phone] Ester Urbano, RN Social History Tobacco Use [...] requesting that her labs be sent to [facility]. This nurse able to establish clear [...] 9:45 AM EDT Office Visit Dermatology at [place] [address] [facility] [place] [address] Emiliano Salinas MD [address], BAKARI [place] [address] documented as of this encounter Visit Diagnoses Not on filedocumented in this encounter Care Teams Road Equipment Operator Relationship Specialty Start Date End Date Juan Smith MD PCP - General Family Medicine 05/10/16 09/02/21 documented as of this encounter
--- OUTSIDE RECORDS SUMMARY | 2024-02-20 13:39 | XMS_ITS | Encounter Summary ---
Author Organization Formerly [facility] [place] [address] Care Team Providers Care Porcelain Slusher Name Role Phone Mary Altamirano MD Primary Care Provider [phone] Encounter Details Date Type Department Care Team (Latest Contact Info) Description 02/16/2022 11:20 AM EDT Laboratory Appointment Lab at [facility] [address] [place] [address] Familial hypercholesterolemi a; THERESA (obstructive sleep apnea) [...] AM EDT Office Visit Dermatology at [address] [place] [phone] Emiliano Salinas MD [address] [facility], BAKARI A DERMATOLOGY [place], [place] [phone] documented as of this encounter Procedures Procedure [...] Uric Acid 5.4 2.5 - 6.5 mg/dL [facility] Blood 02/16/2022 11:5 1 AM EDT 02/16/2022 12:02 PM EDT Narrative Resulting Agency Comment Spec In Lab Tory Montalvo MD CHEMISTRY ORDERABLES [facility] [place] [address] * Apolipoprotein B (02/16/2022 11:51 AM EDT) Apolipoprotein B (OCTOBER) 85 mg/dL [facility] Comment: REFERENCE VALUE Desirable: <90 Above Desirable: 90-99 Borderline high: 100-119 High: 120-139 Very high: > or = 140 Test Performed by: [address] [address] Laserist: Kyle Michel M.D. Ph.D.; CLIA# [id number] Blood 02/16/2022 11:5 1 AM EDT 02/16/2022 3:50 PM EDT Narrative Resulting Agency Comment Spec In Lab Delfina Santiago MD LAB SEND OUT ORDERAB LES Performing Organization Address [facility] de Phone Number [facility] [place] [address] * Lipoprotein A (02/16/2022 11:50 AM EDT) Lipoprotein(A) (OCTOBER) 12 <75 nmol/L [facility] Comment: ADDITIONAL INFORMATION Please notice that Lp(a) values are reported in molar units (nmol/L). ??These units are recommended by professional society guidelines and expert opinion statements. ??Measured results and risk thresholds are higher than those generated using mass units (mg/dL). Cardiovascular risk increases starting at 75 nmol/L. Lp(a) >=125 nmol/L is considered a risk enhancing factor by the [place] [employer]. This test has been modified from the housecleaner's instructions. Its performance characteristics were determined by [facility] in a manner consistent with CLIA requirements. This test has not been cleared or approved by the U.S. Food and Drug Administration. Test Performed by: [address] [address] Laserist: Kyle Michel M.D. Ph.D.; CLIA# [id number] Blood 02/16/2022 11:5 0 AM EDT 02/16/2022 3:50 PM EDT Narrative Resulting Agency Comment Spec In Lab Delfina Santiago MD LAB SEND OUT ORDERAB LES Performing Organization Address [facility] Co de Phone Number [facility] [place] [address] * Apolipoprotein B (02/16/2022 11:50 AM EDT) Apolipoprotein B (OCTOBER) 84 mg/dL [facility] Comment: REFERENCE VALUE Desirable: <90 Above Desirable: 90-99 Borderline high: 100-119 High: 120-139 Very high: > or = 140 Test Performed by: [facility] - [address] [address] Laserist: Kyle Michel M.D. Ph.D.; CLIA# [id number] Blood 02/16/2022 11:5 0 AM EDT 02/16/2022 3:50 PM EDT Narrative Resulting Agency Comment Spec In Lab Delfina Santiago MD LAB SEND OUT ORDERAB LES Performing Organization Address City/State/[facility] Co de Phone Number [facility] [place] [address] documented in this encounter Visit Diagnoses Diagnosis Familial hypercholesterolemia Pure hypercholesterolemia THERESA (obstructive sleep apnea) Obstructive sleep apnea (adult) (pediatric) documented in this encounter Care Teams Porcelain Slusher Relationship Specialty Start Date End Date Mary Altamirano MD PCP - General Family Medicine 01/26/22 08/26/22 documented as of this encounter
--- OUTSIDE RECORDS SUMMARY | 2024-02-20 13:39 | XMS_ITS | Encounter Summary ---
[place] [address] Care Team Providers Care Corn Breeder Name Role Phone Juan Smith MD Primary Care Provider [phone] Encounter Details Date Type Department Care Team (Latest Contact Info) Description 12/15/2019 Orders Only Cardiology at [address] [phone] Tory Montalvo MD Familial hypercholesterolemia Social History [...] AM EDT Office Visit Dermatology at [place] [address] [place] [phone] Emiliano Salinas MD [address], BAKARI Nova DERMATOLOGY [place], [place] [phone] documented as of this encounter Visit Diagnoses Diagnosis Familial hypercholesterolemia Pure hypercholesterolemia documented in this encounter Care Teams Corn Breeder Relationship Specialty Start Date End Date Juan Smith MD PCP - General Family Medicine 05/10/16 09/02/21 documented as of this encounter
--- OUTSIDE RECORDS SUMMARY | 2024-02-20 13:39 | XMS_ITS | Encounter Summary ---
Author Organization [facility] [place] [address] Care Team Providers Care Machine Wood Sander Name Role Phone Juan Smith MD Primary Care Provider [phone] Encounter Details Date Type Department Care Team (Late st Contact Info) Description 12/15/2019 Telephone Cardiology at [address] [phone] Ester Urbano, RN Social History Tobacco Use [...] 9:45 AM EDT Office Visit Dermatology at [place] [address] [facility] [place] [address] Emiliano Salinas MD [address], BAKARI [place] [address] documented as of this encounter Visit Diagnoses Not on filedocumented in this encounter Care Teams Machine Wood Sander Relationship Specialty Start Date End Date Juan Smith MD PCP - General Family Medicine 05/10/16 09/02/21 documented as of this encounter
--- OUTSIDE RECORDS SUMMARY | 2024-02-20 13:39 | XMS_ITS | Encounter Summary ---
Author Organization [facility] Address [facility] [place] [address] Care Team Providers Care Real Estate Professional Name Role Phone Juan Smith MD Primary Care Provider [phone] Reason for Visit * Reason Comments Medication Refill Encounter Details Date Type Department Care Team (Late st Contact Info) Description 04/26/2020 Refill Dermatology at [facility] [address] [place] [address] Vern Salmeron MD [facility] [address] [place] [address] Hair thinning Social History Tobacco Use Types [...] 9:45 AM EDT Office Visit Dermatology at [place] [address] [facility] [place] [address] Emiliano Salinas MD [address], [place] [address] documented as of this encounter Visit Diagnoses Diagnosis Hair thinning Alopecia, unspecified documented in this encounter Care Teams Real Estate Professional Relationship Specialty Start Date End Date Juan Smith MD PCP - General Family Medicine 05/10/16 09/02/21 documented as of this encounter
--- OUTSIDE RECORDS SUMMARY | 2024-02-20 13:39 | XMS_ITS | Encounter Summary ---
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 She was in 2002 and has had a significant other for many years. Boyfriend (Deacon Peterson) lives in [place]. She has 5 children (2 biologic and [...] azelastine (ASTELIN) 137 mcg (0.1 %) Aerosol, Kathleen 0 ??? PROVENTIL HFA 90 mcg/actuation HFA [...] Once daily ??? Mometasone (NASONEX) 50 mcg/Actuation [place] 2 [place](s) each nostril, Nasal, Twice daily No current facility-administered medications for this visit. Allergies Bee pollen, Morphine, Sulfa (sulfonamide antibiotics), and Voltaren [diclofenac sodium] Physical Exam not performed - [facility] Labs Total cholesterol 168 mg/dL [...] She will have her labs drawn at [facility] in [facility] about a week before her visit. [...] 9:45 AM EDT Office Visit Dermatology at [place] [address] [place] [address] Emiliano Salinas MD [address], [place] [address] documented as of this encounter Visit Diagnoses Diagnosis Familial hypercholesterolemia Pure hypercholesterolemia documented in this encounter Care Teams Wire Taper Relationship Specialty Start Date End Date Juan Smith MD PCP - General Family Medicine 05/10/16 09/02/21 documented as of this encounter
--- OUTSIDE RECORDS SUMMARY | 2024-02-20 13:39 | XMS_ITS | Encounter Summary ---
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, pt would like to transfer care to Mary Sands MD [address] [place] [address] [facility] [address] [place] [phone] Referral ID Status Reason Start Date Expiration Date V isits Requested Visits Authorized [id number] Closed Consult, Test & Treat PCP Updated and/or Approved 10/12/2021 10/12/2022 10 10 Encounter Details Date Type Department Care Team (Latest Contact Info) Description 11/24/2021 1:00 PM EDT Office Visit Cardiology at [address] [phone] Delfina Santiago MD [facility] [place] [address] Familial hypercholesterolemia Social History Tobacco Use [...] 412 LDL 296 HDL 93 TG 118 [address] total cholesterol 273 LDL 151 HDL 75 [...] symptoms. 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 ??She was in 2002 and has had a significant other for many years. ??Her significant other (Yoshalom Peterosn) lives in [place].?She has??5??children and 3 biologic and 8 step??grandchildren. [...] azelastine (ASTELIN) 137 mcg (0.1 %) Aerosol, [place] 0 ??? PROVENTIL HFA 90 mcg/actuation HFA [...] Once daily ??? 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 [...] about 6 weeks. These will be at [facility] 01/22/22 ADDENDUM 01/17/22 apoB 89Lp(a) 19.8 (ULN < 75) Total cholesterol 212 LDL 115 HDL 59 TG 190 Time spent for this clinic appointment on the date of service includes: 25 minutes review of her chart and previous lipid evaluation and recommendations; 30 minutes [id number] and 10 minutes coordination of care 1) [id number] counseling as noted above 2) reviewing past medical records, cardiac testing, results of laboratory testing 3) coordinating care with other physicians and allied health care providers Delfina Santiago MD, Vonnie, FACC, FNLA Attending Tax Consultant Sports Cardiology Program Preventive Cardiology Lipid Clinic Advanced Hypertension Clinic documented in this encounter Plan of Treatment Upcoming Encounters Date Type Department Care Team (Late st Contact Info) Description 03/13/2024 9:45 AM EDT Office Visit Dermatology at [place] [address] [facility] [place] [phone] Emiliano Salinas MD [address], [place]AR[place] [address] documented as of this encounter Results * Apolipoprotein B (02/16/2022 11:50 AM EDT) Pathologist [facility] Apolipoprotein B (OCTOBER) 84 mg/dL [facility] Comment: REFERENCE VALUE Desirable: <90 Above Desirable: 90-99 Borderline high: 100-119 High: 120-139 Very high: > or = 140 Test Performed by: [address] [address] Systems Support Engineer: Kyle Michel M.D. Ph.D.; CLIA# [id number] Blood 02/16/2022 11:5 0 AM EDT 02/16/2022 3:50 PM EDT Narrative Resulting Agency Comment Spec In Lab Delfina Santiago MD LAB SEND OUT ORDERAB LES [facility] [place] [address] * Lipoprotein A (02/16/2022 11:50 AM EDT) Lipoprotein(A) ( <75 nmol/L [facility] Comment: ADDITIONAL INFORMATION Please notice that Lp(a) values are reported in molar units (nmol/L). ??These units are recommended by professional society guidelines and expert opinion statements. ??Measured results and risk thresholds are higher than those generated using mass units (mg/dL). Cardiovascular risk increases starting at 75 nmol/L. Lp(a) >=125 nmol/L is considered a risk enhancing factor by the [place] [employer]. This test has been modified from the night shift supervisor's instructions. Its performance characteristics were determined by [facility] in a manner consistent with CLIA requirements. This test has not been cleared or approved by the U.S. Food and Drug Administration. Test Performed by: [facility] - [address] [address] Systems Support Engineer: Kyle Michel M.D. Ph.D.; CLIA# [id number] Blood 02/16/2022 11:5 0 AM EDT 02/16/2022 3:50 PM EDT Narrative Resulting Agency Comment Spec In Lab Delfina Santiago MD LAB SEND OUT ORDERAB LES [facility] [place] [address] documented in this encounter Visit Diagnoses Diagnosis Familial hypercholesterolemia Pure hypercholesterolemia documented in this encounter Care Teams Quill Stripper Relationship Specialty Start Date End Date Juan Smith MD PCP - General Family Medicine 10/12/21 01/25/22 documented as of this encounter
--- OUTSIDE RECORDS SUMMARY | 2024-02-20 13:39 | XMS_ITS | Encounter Summary ---
[place] [address] Care Team Providers Care Nursing Service Administrator Name Role Phone Juan Smith MD Primary Care Provider [phone] Reason for Visit * Reason Onset Date Comments Questions 10/11/2021 F/U with new pro vider Encounter Details Date Type Department Care Team (Late st Contact Info) Description 10/11/2021 Telephone Cardiology at [address] [phone] Rere Stock, RN Questions (F/U with new [...] 10/11/2021 1:00 PM EDT Pt returning this travel writer's call and left the following message: [...] the labs and send the orders to [facility] so she can get done at which [...] 9:45 AM EDT Office Visit Dermatology at [place] [address] [facility] [place] [address] Emiliano Salinas MD [address], [place] [address] documented as of this encounter Visit Diagnoses Not on filedocumented in this encounter Care Teams Nursing Service Administrator Relationship Specialty Start Date End Date Juan Smith MD PCP - General Family Medicine 10/12/21 01/25/22 documented as of this encounter
--- OUTSIDE RECORDS SUMMARY | 2024-02-20 13:39 | XMS_ITS | Encounter Summary ---
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 She is also needing to schedule a f/u visit w/Dr Montalvo. Call placed to the [facility] pharmacy in [place], [place] phone [phone] S/w pharmacy staff. The prescription was processed. Pt's co-pay is $60/90 day supply. They will have to order the medication. It should been in by 10/13/21. Awaiting a call back from the pt to get/give the above information. * Telephone Encounter - Rere Stock RN - 10/10/2021 7:16 PM EDT PA request received from [employer] in [place], [place] phone [phone] for Nexletol. Request processed via Cover My Meds. Insurance information: [facility] managed Medicare. ID#: [id number] BIN: [id number] PCN: MIDPRIME GR: [id number] Yessenia Ag Gonsales: [id number] - PA help? Call us at Outcome Approvedtoday CaseId:[id number];Status:Approved;Review Type:Prior Auth;Coverage Start Date:09/10/2021;Coverage End Date:10/10/2022; Drug Nexletol 180MG tablets Form [employer] Electronic PA Form (2016 NCPDP) documented in this encounter Plan of Treatment Upcoming Encounters Date Type Department Care Team (Late st Contact Info) Description 03/13/2024 9:45 AM EDT Office Visit Dermatology at [place] [address] [place] [phone] Emiliano Salinas MD [address], [place] [address] documented as of this encounter Visit Diagnoses Not on filedocumented in this encounter Care Teams Special Equipment Technician Relationship Specialty Start Date End Date Mary Altamirano MD PCP - General Family Medicine 09/03/21 10/11/21 documented as of this encounter
--- OUTSIDE RECORDS SUMMARY | 2024-02-20 13:40 | XMS_ITS | Encounter Summary ---
[place] [address] Care Team Providers Care Can Dragger Name Role Phone Juna Smith MD Primary Care Provider [phone] Encounter Details Date Type Department Care Team (Latest Contact Info) Description 02/13/2019 10:20 AM EDT Laboratory Appointment Lab [address] [place] [id number] Familial hypercholesterolemia Social History Tobacco Use Types [...] 9:45 AM EDT Office Visit Dermatology at [place] [address] [place] [address] Emiliano Salinas MD [address], [place] [address] documented as of this encounter Procedures Procedure [...] 9:49 AM EDT) Cholesterol, Total 324 mg/dL [facility] Comment: Lower Risk: <200 mg/dL Average Risk: 200-239 mg/dL Higher Risk: >di=516 mg/dL Triglyceride 183 mg/dL [facility] Comment: Average Risk/Lower Risk: <150 mg/dL Borderline High Risk: 150-199 mg/dL High Risk: 200-499 mg/dL Very High Risk: >ik=176 mg/dL HDL Cholesterol 68 mg/dL [facility] Comment: Males: ?? Higher Risk: <40 mg/dL Females: ?? HIgher Risk: <50 mg/dL LDL Cholesterol 219 mg/dL [facility] Comment: Lowest Risk: <100 mg/dL Lower Risk: 100-129 mg/dL Borderline High Risk: 130-159 mg/dL High Risk: 160-189 mg/dL Very High Risk: >rr=468 mg/dL Cholesterol/HDL Ratio 4.[address] [facility] Lipid Interpretation See Note [facility] Comment: Lipid management should be guided by a patient? s ASCVD risk, goals and preferences. ACC/AHA Guidelines recommend high intensity statin if clinical ASCVD or LDL greater than or equal to 190 mg/dL. [email or web address] Adults aged 40-75 with LDL 70-189 mg/dL should have their 10 year ASCVD risk estimated with the ACC/AHA ASCVD risk yardage estimator http://tools.acc.org/XMEPD-Oyrr-Aaajsxife/ Statin should be discussed if risk greater [...] Montalvo MD CHEMISTRY ORDERABLES Performing Organization Address [facility] Co de Phone Number [facility] [place] [address] * Lipoprotein A (02/13/2019 9:49 AM EDT) Lipoprotein (a) 6 <=30 mg/dL [facility] Comment: Test Performed by: [facility] [place] [address] Software Business Analyst: Kyle Michel M.D. Ph.D.; CLIA# [id number] Blood specimen (specimen) 02/13/2019 9:49 AM EDT 02/13/2019 3:06 PM EDT Narrative Resulting Agency Comment Spec In Lab Tory Montalvo MD LAB SEND OUT ORDERAB LES Performing Organization Address [facility] Co de Phone Number [facility] [place] [address] * (ABNORMAL) Comprehensive metabolic panel (non-fasting) (02/13/2019 9:49 AM EDT) Glucose 108 65 - 199 mg/dL [facility] Comment:Diabetes: >=200 mg/d L plus symptoms Blood Urea Nitrogen 19(H) 8 - 18 mg/dL [facility] Creatinine 0.79 0.70 - 1.20 mg/dL [facility] Sodium 142 135 - 145 mmol/L [facility] Potassium 3.6 3.5 - 5.0 mmol/L [facility] Comment: Please note: ??Patients with WBC >100,000 may have falsely elevated Potassium levels. ??For accurate Potassium quantification in these patients send serum separator tube (gold top) for subsequent determinations. ??Contact the Clinical Chemistry Laboratory if there are any questions. Chloride 101 98 - 107 mmol/L [facility] Carbon Dioxide 28 22 - 31 mmol/L [facility] Anion Gap 13 5 - 15 mmol/L [facility] Calcium 9.8 8.5 - 10.5 mg/dL [facility] Protein, Total 7.5 6.1 - 8.0 gm/dL [facility] Albumin 4.8 3.2 - 5.2 gm/dL [facility] Aspartate Aminotransferase 22 0 - 30 unit/L [facility] Alanine Aminotransferase 24 0 - 30 unit/L [facility] Alkaline Phosphatase 64 35 - 105 unit/L [facility] Bilirubin, Total 0.4 0.2 - 1.3 mg/dL [facility] Est Glomerular Filtration Rate 76 >=60 mL/min/1. 73 m?? [facility] Comment: The eGFR was calculated using the CKD-EPI equation. As with all creatinine based estimates of kidney function, eGFR values calculated with the CKD-EPI equation are not accurate in patients with acute kidney failure, extremes of body mass or the acutely ill. [email or web address] eGFR 88 >=60 mL/min/1. 73 m?? [facility] Comment: The eGFR was calculated using the CKD-EPI equation. As with all creatinine based estimates of kidney function, eGFR values calculated with the CKD-EPI equation are not accurate in patients with acute kidney failure, extremes of body mass or the acutely ill. [email or web address] Blood specimen (specimen) 02/13/2019 9:49 AM EDT 02/13/2019 9:59 AM EDT Narrative Resulting Agency Comment Spec In Lab Tory Montalvo MD CHEMISTRY ORDERABLES Performing Organization Address [facility] Co de Phone Number [facility] [place] [address] * TSH (02/13/2019 9:49 AM EDT) Thyroid Stimulating Hormone 2.34 0.27 - 4.20 mcIU/mL [facility] Blood specimen (specimen) 02/13/2019 9:49 AM EDT 02/13/2019 9:59 AM EDT Narrative Resulting Agency Comment Spec In Lab Tory Montalvo MD CHEMISTRY ORDERABLES Performing Organization Address [facility] Co de Phone Number [facility] [place] [address] documented in this encounter Visit Diagnoses Diagnosis Familial hypercholesterolemia Pure hypercholesterolemia documented in this encounter Care Teams Can Dragger Relationship Specialty Start Date End Date Juan Smith MD PCP - General Family Medicine 05/10/16 09/02/21 documented as of this encounter
--- OUTSIDE RECORDS SUMMARY | 2024-02-20 13:40 | XMS_ITS | Encounter Summary ---
Author Organization [facility] [place] [address] Care Team Providers Care Anesthesiology Medical Doctor Name Role Phone Chantell Mims APRN Primary Care Provider [phone] Reason for Visit * Reason Comments Advice Only liposuction abdomen, bbr, Encounter Details Date Type Department Care Team (Late st Contact Info) Description 02/08/2015 9:45 AM EDT Office [place] [address] Carlee Marvin MD [facility] [place] [address] Macromastia Discharge Disposition: Home Social History Tobacco [...] Vaginal prolapse repair 04/11/2007 Dr. Castaneda, at [facility] ??? 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 traZODone (DESYREL) 100 mg tablet Take 100 mg by mouth nightly. ??? fexofenadine (EVANGELINA) 180 mg tablet 180 mg, PO, Once daily ??? Mometasone (NASONEX) 50 mcg/Actuation [place] 2 [place](s) each nostril, Nasal, Twice daily ??? [DISCONTINUED] [...] her breast-related symptoms. She was providedwith an [facility] brochure and informed consent on breast [...] possibilities. She has been provided with the [facility] patient information brochure as well as [...] surgery is best done at a realistic long-term stable weight. We talked about the outpatient nature of the surgery, drains, postoperative recovery, and time required off work. She has been referred to [email or web address] and provided with my e-mail address. The [...] revisions for scarring or asymmetry.) Fuentes or [place] Pattern Incision: More scarring on breast, but [...] 30 minutes liposuction of axillary region CPT: 77628, 07528, 94596 ( 30 minutes) Surgical site: Breast/abdomen Side: [...] 9:45 AM EDT Office Visit Dermatology at [place] [address] [place] [phone] Emiliano Salinas MD [address], [place] [address] documented as of this encounter Procedures Procedure Name Priority Date/Time Associated Diagnosis Comments REDUCTION MAMMOPLASTY, BILATERAL Routine 02/08/2015 11:26 AM EDT documented in this encounter Visit Diagnoses Diagnosis Macromastia Hypertrophy of breast documented in this encounter Care Teams Anesthesiology Medical Doctor Relationship Specialty Start Date End Date Chantell Mims APRN PCP - General 07/09/13 05/09/16 documented as of this encounter
--- OUTSIDE RECORDS SUMMARY | 2024-02-20 13:40 | XMS_ITS | Encounter Summary ---
Author Organization [facility] [place] [address] Care Team Providers Care Information Consultant Name Role Phone Juan Smith MD Primary Care Provider [phone] Reason for Visit * Diagnostic Test (Routine) - Closed Specialty Diagnoses / Procedures Referred By Contac t Referred To Contact Radiology Diagnoses Chest pain, unspecified type SOB (shortness of breath) Procedures NM Pharmacologic Stress Myocardial Perfusion Tory Montalvo MD [facility] [place] [address] [place] [address] Referral ID Status Reason Start Date Expiration Date V isits Requested Visits Authorized [id number] Closed Specialty Service Requested 03/05/2019 05/03/2019 1 1 Encounter Details Date Type Department Care Team (Latest Contact Info) Description 03/12/2019 9:23 AM EDT Hospital Encounter [place] [address] Tory Montalvo MD Discharge Disposition: [...] azelastine (ASTELIN) 137 mcg (0.1 %) Aerosol, Burt 0 11/06/2017 0 09/03/2022 ASCORBATE CALCIUM (VITAMIN C ORAL) Take by mouth. 09/03/2022 ERGOCALCIFEROL, VITAMIN D2, (VITAMIN D ORAL) Take by mouth. multivitamin (THERAGRAN) tablet Take 1 tablet by mouth daily. 09/03/2022 fexofenadine (EVANGELINA) 180 mg tablet 180 mg, PO, Once daily 08/28/2010 09/03/2022 Mometasone (NASONEX) 50 mcg/Actuation [place] 2 Burt(s) each nostril, Nasal, Twice daily 08/28/2010 09/03/2022 documented as of this encounter Plan of Treatment Upcoming Encounters Date Type Department Care Team (Late st Contact Info) Description 03/13/2024 9:45 AM EDT Office Visit Dermatology at [place] [address] [place] [address] Emiliano Salinas MD [address], BAKARI [place] [address] documented as of this encounter Procedures Procedure [...] is normal. Preliminary report signed by: Liam uCevas at 03/12/2019 2:52 PM I have personally [...] on filedocumented in this encounter Care Teams Information Consultant Relationship Specialty Start Date End Date Juan Smith MD PCP - General Family Medicine 05/10/16 09/02/21 documented as of this encounter
--- OUTSIDE RECORDS SUMMARY | 2024-02-20 13:40 | XMS_ITS | Encounter Summary ---
Author Organization [facility] Address [facility] [place] [address] Care Team Providers Care Truck Unloader Name Role Phone Juan Smith MD Primary Care Provider [phone] Reason for Visit * Reason Comments Skin Check Encounter Details Date Type Department Care Team (Late st Contact Info) Description 02/12/2017 10:00 AM EDT Office Visit Dermatology at [facility] [address] [place] [address] Vern Salmeron MD [facility] [address] [address] Androgenic alopecia Social History Tobacco Use Types [...] 02/12/2017 10:00 AM EDT Yessenia Luong 02/12/2017 [id number] Raymundo Salmeorn MD ([id number]) Chief Problem: 1. Pigmented Lesion and Skin [...] MAGNESIUM ORAL) ??? Mometasone (NASONEX) 50 mcg/Actuation [place] 2 [place](s) each nostril, Nasal, Twice daily No current [...] [5% strength] to promote hair growth. This usaq-iry-[id number] product is FDA-approved for androgenetic alopecia, and [...] 9:45 AM EDT Office Visit Dermatology at [place] [address] [place] [address] Emiliano Salinas MD [address] [place] [address] documented as of this encounter Visit Diagnoses Diagnosis Androgenic alopecia Other alopecia documented in this encounter Care Teams Truck Unloader Relationship Specialty Start Date End Date Juan Smith MD PCP - General Family Medicine 05/10/16 09/02/21 documented as of this encounter
--- OUTSIDE RECORDS SUMMARY | 2024-02-20 13:40 | XMS_ITS | Encounter Summary ---
Author Organization [facility] [place] [address] Care Team Providers Care Drying Can Worker Name Role Phone SharmaChantell APRN Primary Care Provider [phone] Reason for Visit * Reason Comments Skin Check Encounter Details Date Type Department Care Team (Late st Contact Info) Description 07/30/2014 9:30 AM EST Office Visit Dermatology at [address] [place] [address] Emiliano Salinas MD [address] [facility], BAKARI A DERMATOLOGY [place], [place] [id number] Androgenetic alopecia; Solar lentigo Discharge Disposition: Home [...] from the original note were not included. [facility] Hair Loss From Alopecia Areata: After Your [...] more? Visit our health information library at [email or web address] You can also view health information on [employer], your personal patient account. Log in or sign up today. Enter Y465 in the search box to learn more about Hair Loss From Alopecia Areata: After Your Visit. ?? [id number] [employer]. Care instructions adapted under license by [facility]. This care instruction is for use with your licensed healthcare professional. If you have questions about a medical condition or this instruction, always ask your healthcare professional. [employer] disclaims any warranty or liability for your use of this information. Content Version: 10.3.338235; Current as of: August 19, 2013 [facility] Hair Loss From Alopecia Areata: After Your [...] more? Visit our health information library at [email or web address] Engineinfo You can also view health information on InflowControl, your personal patient account. Log in or sign up today. Enter Y465 in the search box to learn more about Hair Loss From Alopecia Areata: After Your Visit. ?? [id number] [employer]. Care instructions adapted under license by [facility]. This care instruction is for use with your licensed healthcare professional. If you have questions about a medical condition or this instruction, always ask your healthcare professional. [employer] disclaims any warranty or liability for your use of this information. Content Version: 10.3.695053; Current as of: August 19, 2013 documented [...] information about the [facility] in [place] and I recommended considering a consultation visit there. 2. Solar lentigos, facial. a. The patient requested and was given facial treatment. I recommended tretinoin 0.025% cream to apply on a nightly basis. She may use it every other night if too drying; 20 grams dispensed with five refills. Apply half an hour after washing. b. The patient knows this will be an olr-jp-olfsun expense, not covered by insurance. This will be called in to her [facility]. c. Return to clinic in another year for repeat check. Note: Half an hour was spent with the patient, more than half spent in counseling. documented in this encounter Plan of Treatment Upcoming Encounters Date Type Department Care Team (Late st Contact Info) Description 03/13/2024 9:45 AM EDT Office Visit Dermatology at [place] [address] [facility] [place] [address] Emiliano Salinas MD [address] [facility], [place] [address] documented as of this encounter Visit Diagnoses Diagnosis Androgenetic alopecia Other alopecia Solar lentigo Other dyschromia documented in this encounter Care Teams Drying Can Worker Relationship Specialty Start Date End Date Chantell Sharma APRN PCP - General 07/09/13 05/09/16 documented as of this encounter
--- OUTSIDE RECORDS SUMMARY | 2024-02-20 13:40 | XMS_ITS | Encounter Summary ---
Author Organization [facility] [place] [address] Care Team Providers Care Name Plate Stamper Name Role Phone Juan Smith MD Primary Care Provider [phone] Reason for Visit * Reason Onset Date Comments Medication Refill 12/27/2017 Encounter Details Date Type Department Care Team (Late st Contact Info) Description 12/27/2017 Refill Weight and Wellness at [address] [address] Natalie Stephens MD [facility] [place] [address] Obesity, unspecified classification, unspecified obesity type, unspecified [...] 9:45 AM EDT Office Visit Dermatology at [place] [address] [place] [address] Emiliano Salinas MD [address] [facility], [place] [address] documented as of this encounter Visit Diagnoses Diagnosis Obesity, unspecified classification, unspecified obesity type, unspecified whether serious comorbidity present documented in this encounter Care Teams Name Plate Stamper Relationship Specialty Start Date End Date Juan Smith MD PCP - General Family Medicine 05/10/16 09/02/21 documented as of this encounter
--- OUTSIDE RECORDS SUMMARY | 2024-02-20 13:40 | XMS_ITS | Encounter Summary ---
Author Organization [facility] [place] [address] Care Team Providers Care Federal Appellate Law Clerk Name Role Phone Chantell Mims APRN Primary Care Provider [phone]- [phone] Reason for Visit * Auth/Cert Specialty Diagnoses / Procedures Referred By Veronica t Referred To Contact Diagnoses Hypertrophy of breast Procedures PRO REDUCTION OF LARGE BREAST PRO EXCISE EXCESS SKIN TISSUE, ABDOMEN PRO SUCT SARAH LIPECTOMY, TRUNK 26873 BILAT 95843 ALSO BILAT 79771 Referral ID Status Reason Start Date Expiration Date Visits Re quested Visits Authorized [id number] 1 1 Encounter Details Date Type Department Care Team (Late st Contact Info) Description 06/14/2015 1:56 PM EST - 06/14/2015 6:24 PM EST [place] [address] Carlee Montenegro MD [facility] [place] [address] REDUCTION MAMMOPLASTY, ADAM (WRVU 16.03) Social History [...] ASSISTED LIPECTOMY,TRUNK HPI: Per admitting H&P: Yessenia uLong is a 64 y.o. female who presents [...] 1 tablet Refills: 0 NASONEX 50 mcg/actuation Hagan 2 Nenzel(s) each nostril, Nasal, Twice daily Generic drug: [...] APRN MANINDER [address] [facility] [address] Scheduled Appointments: The following appointments have been scheduled on your behalf: No future appointments. Outpatient Services/Studies: Referral to Home Health - at DISCHARGE Scheduling Instructions: DOCUMENTATION FOR VNA SERVICES (INCLUDING THOSE PATIENTS WITH MEDICARE COVERAGE REQUIRING HOME VNA SERVICES AND/OR HOSPICE SERVICES) PATIENT'S LOCATION: Yessenia Luong [address] [place] [phone] (home) Cell: Telephone Information: Sports Marketing Specialist's Name: self In discussion with the attending physician, it is certified that this patient is under their care and that they, or a Nurse Practitioner,Clinical Nurse specialist or Physician Jet Ski Mechanic who is working directly with them, had [...] for managing ADL's. HOME HEALTH CARE AGENCY: [facility] PHONE: [phone] FAX: [phone] Start of care: 06/16/2015 FOR MEDICARE ONLY: [...] obtained from this patient's PCP: CHANTELL MIMS, TRAIN STATION AGENT MANINDER [address] [place] [address] All A agencies which cover the area of patient's residence have been reviewed, either verbally ida writing, and patient/family have chosen the home health care agency noted A list of Home Health Agencies/DMEs which serve the geographic area which the patient resides or the geographic area requested by the patient/textile designs sales representative was made available.Full Disclosure Statement provided, as appropriate. Patient requests referral to [facility]. Referral matched w agency/vendor and info provided via [employer] program Question Response Notes Agency name and contact information [facility] Patient location post discharge home What [...] good night sleep. Pain (short term and termite control service representative) ?? With any surgery there is some discomfort or pain. We will prescribe pain medication. Take as prescribed and only as needed. OK to take Tylenol, do not exceed 3 grams per day. OK to add Ibuprofen 48 hours after surgery. ?? We recommend taking an ujss-caq-Eddfspz stool softener, such as Colace (docusate) or [...] scheduling, please contact our administrative offices at [phone] ?? For clinical questions, please call our nurses at [phone] ?? Both offices are open Saturday thru Saturday 8a - 5p. With emergencies after hours, call the hospital pump room operator at [phone] and ask for the Plastic Surgery Resident ironworker helper shop. Instructions for Abdominal Surgery During the first [...] from each drain. Call the clinic at [phone] and schedule an appointment with the nurses [...] Saturday 8 am to 5 pm Call [phone] On weekends or after hours: Call [phone] and ask the pump room operator to page the Plastic Surgery Resident ironworker helper shop. Prescription Line: Call the line at [phone] from 8am-4pm Saturday through Saturday. Narcotic renewals [...] good night sleep. Pain (short term and chcf) ?? With any surgery there is some discomfort or pain. We will prescribe pain medication. Take as prescribed and only as needed. OK to take Tylenol, do not exceed 3 grams per day. OK to add Ibuprofen 48 hours after surgery. ?? We recommend taking an zpgq-vcb-Icwjgxx stool softener, such as Colace (docusate) or [...] scheduling, please contact our administrative offices at [phone] ?? For clinical questions, please call our nurses at [phone] ?? Both offices are open Saturday thru Saturday 8a - 5p. With emergencies after hours, call the hospital pump room operator at [phone] and ask for the Plastic Surgery Resident ironworker helper shop. Instructions for Abdominal Surgery During the first [...] from each drain. Call the clinic at [phone] and schedule an appointment with the nurses [...] Saturday 8 am to 5 pm Call [phone] On weekends or after hours: Call [phone] and ask the pump room operator to page the Plastic Surgery Resident ironworker helper shop. Prescription Line: Call the line at [phone] from 8am-4pm Saturday through Saturday. Narcotic renewals [...] mouth nightly. 12/06/2017 fluticasone (FLONASE) 50 mcg/actuation Nenzel, Suspension 1 spray daily. 06/23/19 16 BUDESONIDE/FORMOTEROL [...] ORAL) 08/28/2010 12/06/2017 Mometasone (NASONEX) 50 mcg/Actuation [place] 2 Nenzel(s) each nostril, Nasal, Twice daily 08/28/2010 09/03/2022 documented as of this encounter Progress Notes * Jyoti Ingram RN - 06/15/2015 4:43 PM EST I assumed care for this [atoient from [id number]. Patient discharged to home. IV removed, site [...] or the geographic area requested by the patient/textile designs sales representative was made available.Full Disclosure Statementprovided, as appropriate. Patient requests referral to [facility]. Referral matched w agency/vendor and info provided via [employer] * Wilman Jacobo MD - 06/14/2015 11:55 PM EST Post-Operative Progress Note Patient: Yessenia Luong s/p Surgery: 06/14/2015 [id number] Procedure(s) (LRB): REDUCTION MAMMOPLASTY, ADAM (Bilateral) ABDOMINOPLASTY (N/A) SUCTION ASSISTED LIPECTOMY,TRUNK (Bilateral) Surgeon(s) and Role: * Carlee Montenegro MD - Primary * Dudley Kramer MD: 3 Hr 37 Min 29 Sec * No complications entered in OR log * Short History: awakened from anesthesia, extubated and taken to the recovery room in a stable condition, having suffered no apparent untoward event. Patient location: [facility] Surgical Floor Post-op Consciousness awake, [...] reach. Will continue to monitor. * Nan Bezn RN - 06/14/2015 7:44 PM EST Arrived [...] Montenegro MD - 06/14/2015 8:03 PM EST [facility] Operative Note Patient Name: Yessenia Luong : [id number] MR#: [id number] Case Date: 06/14/2015 Surgeon: Surgeon(s) and Role: * Carlee Montenegro MD - Primary * Dduley Kramer MD Preoperative diagnosis: Breast Hypertrophy Postoperative [...] 15-blade and the umbilical stalk developed with Tamaroa scissor dissection. A 0-Vicryl suture was placed [...] Operative Note Patient Name: Yessenia Luong : [id number] MR#: [id number] Case Date: 06/14/2015 Surgeon: Surgeon(s) and Role: [...] 9:45 AM EDT Office Visit Dermatology at [place] [address] [place] [id number] Emiliano Salinas MD [address] [facility], [place] [address] documented as of this encounter Procedures Procedure [...] intervals supplied above were not validated at [facility]. Results from pediatric patients should be interpreted [...] the following links into your internet browser. [email or web address] Blood specimen (specimen) 06/15/2015 10:36 AM EST 06/15/2015 10:49 AM EST Narrative Resulting Agency Comment Spec In Lab Carlee Montenegro MD CHEMISTRY ORDERABLES [facility] * Surgical Pathology Report (06/14/2015 5:25 PM EST) Final Diagnosis [id number] ? Location: [facility]; [facility]; The signing pathologist has (i) examined [...] (R3) ?? yal 06/17/2015 10:21 AM EST [facility] BREAST STRUCTURE / Unknown 06/14/2015 5:25 PM EST 06/14/2015 5:25 PM EST BREAST STRUCTURE / Unknown 06/14/2015 5:25 PM EST 06/14/2015 5:25 PM EST Carlee Montenegro MD PATHOLOGY/CYTOLOGY O ELLA [facility] [place] [address] * Specimen to Pathology (surgical or derm) [...] MD) documented in this encounter Care Teams Federal Appellate Law Clerk Relationship Specialty Start Date End Date Chantell Mims APRN PCP - General 07/09/13 05/09/16 documented as of this encounter
--- OUTSIDE RECORDS SUMMARY | 2024-02-20 13:40 | XMS_ITS | Encounter Summary ---
Author Organization [facility] [place] [place] [address] Care Team Providers Care Track Liner Operator Name Role Phone Chantell Mims APRN Primary Care Provider [phone]- [phone] Reason for Visit * Auth/Cert Specialty Diagnoses / Procedures Referred By Veronica t Referred To Contact Diagnoses Hypertrophy of breast Procedures PRO REDUCTION OF LARGE BREAST PRO EXCISE EXCESS SKIN TISSUE, ABDOMEN PRO SUCT SARAH LIPECTOMY, TRUNK 58613 BILAT 48715 ALSO BILAT 83744 Referral ID Status Reason Start Date Expiration Date Visits Re quested Visits Authorized [id number] 1 1 Encounter Details Date Type Department Care Team (Latest Contact Info) Description 06/14/2015 11:54 AM EST - 06/15/2015 5:08 PM [facility] Hospital Encounter [address] [place] [address] Carlee Montenegro MD [facility] [place] [address] S/P reduction mammoplasty Discharge Disposition: Home Social [...] 1 tablet Refills: 0 NASONEX 50 mcg/actuation [place] 2 [place](s) each nostril, Nasal, Twice daily Generic drug: [...] APRN BAKARI [address] [facility] [address] Scheduled Appointments: The following appointments have been scheduled on your behalf: No future appointments. Outpatient Services/Studies: Referral to Home Health - at DISCHARGE Scheduling Instructions: DOCUMENTATION FOR VNA SERVICES (INCLUDING THOSE PATIENTS WITH MEDICARE COVERAGE REQUIRING HOME VNA SERVICES AND/OR HOSPICE SERVICES) PATIENT'S LOCATION: Yessenia Luong [address] [place] [phone] (home) Cell: Telephone Information: Configuration Specialist's Name: self In discussion with the attending physician, it is certified that this patient is under their care and that they, or a Nurse Practitioner,Clinical Nurse specialist or Physician Dairy Equipment Mechanic who is working directly with them, [...] for managing ADL's. HOME HEALTH CARE AGENCY: [facility] PHONE: [phone] FAX: [phone] Start of care: 06/16/2015 FOR MEDICARE ONLY: [...] obtained from this patient's PCP: CHANTELL MIMS, CARTOGRAPHY TEACHER BAKARI [address] [place] [address] All A agencies which cover the area of patient's residence have been reviewed, either verbally ida writing, and patient/family have chosen the home health care agency noted A list of Home Health Agencies/DMEs which serve the geographic area which the patient resides or the geographic area requested by the patient/field service representative was made available.Full Disclosure Statement provided, as appropriate. Patient requests referral to [facility]. Referral matched w agency/vendor and info provided via [employer] program Question Response Notes Agency name and contact information [facility] Patient location post discharge home What [...] good night sleep. Pain (short term and fpc) ?? With any surgery there is some discomfort or pain. We will prescribe pain medication. Take as prescribed and only as needed. OK to take Tylenol, do not exceed 3 grams per day. OK to add Ibuprofen 48 hours after surgery. ?? We recommend taking an bekw-gck-Kgdmywt stool softener, such as Colace (docusate) or [...] scheduling, please contact our administrative offices at [phone] ?? For clinical questions, please call our nurses at [phone] ?? Both offices are open Saturday thru Saturday 8a - 5p. With emergencies after hours, call the hospital box truck owner operator at [phone] and ask for the Plastic Surgery Resident talent acquisition coordinator. Instructions for Abdominal Surgery During the first [...] from each drain. Call the clinic at [phone] and schedule an appointment with the nurses [...] Saturday 8 am to 5 pm Call [phone] On weekends or after hours: Call [phone] and ask the box truck owner operator to page the Plastic Surgery Resident talent acquisition coordinator. Prescription Line: Call the line at [phone] from 8am-4pm Saturday through Saturday. Narcotic renewals [...] good night sleep. Pain (short term and fpc) ?? With any surgery there is some discomfort or pain. We will prescribe pain medication. Take as prescribed and only as needed. OK to take Tylenol, do not exceed 3 grams per day. OK to add Ibuprofen 48 hours after surgery. ?? We recommend taking an swcn-iss-Ckxqlzz stool softener, such as Colace (docusate) or [...] scheduling, please contact our administrative offices at [phone] ?? For clinical questions, please call our nurses at [phone] ?? Both offices are open Saturday thru Saturday 8a - 5p. With emergencies after hours, call the hospital box truck owner operator at [phone] and ask for the Plastic Surgery Resident talent acquisition coordinator. Instructions for Abdominal Surgery During the first [...] from each drain. Call the clinic at [phone] and schedule an appointment with the nurses [...] Saturday 8 am to 5 pm Call [phone] On weekends or after hours: Call [phone] and ask the box truck owner operator to page the Plastic Surgery Resident talent acquisition coordinator. Prescription Line: Call the line at [phone] from 8am-4pm Saturday through Saturday. Narcotic renewals [...] mouth nightly. 12/06/2017 fluticasone (FLONASE) 50 mcg/actuation [place], Suspension 1 spray daily. 06/23/19 16 BUDESONIDE/FORMOTEROL [...] ORAL) 08/28/2010 12/06/2017 Mometasone (NASONEX) 50 mcg/Actuation [place] 2 [place](s) each nostril, Nasal, Twice daily 08/28/2010 09/03/2022 documented as of this encounter Progress Notes * Jyoti Ingram RN - 06/15/2015 4:43 PM EST I assumed care for this [atoient from [id number]. Patient discharged to home. IV removed, site [...] or the geographic area requested by the patient/field service representative was made available.Full Disclosure Statementprovided, as appropriate. Patient requests referral to [facility]. Referral matched w agency/vendor and info provided via [employer] * Wilman Jacobo MD - 06/14/2015 11:55 PM EST Post-Operative Progress Note Patient: Yessenia Luong s/p Surgery: 06/14/2015 [id number] Procedure(s) (LRB): REDUCTION MAMMOPLASTY, ADAM (Bilateral) ABDOMINOPLASTY [...] Patient location: [facility] Surgical Floor Post-op Consciousness awake, alert and [...] Montenegro MD - 06/14/2015 8:03 PM EST [facility] Operative Note Patient Name: Yessenia Luong : [id number] MR#: [id number] Case Date: 06/14/2015 Surgeon: Surgeon(s) and Role: [...] Operative Note Patient Name: Yessenia Luong : [id number] MR#: [id number] Case Date: 06/14/2015 Surgeon: Surgeon(s) and Role: [...] 9:45 AM EDT Office Visit Dermatology at [place] [address] [facility] [place] [address] Emiliano Salinas MD [address] [facility], BAKARI [place] [address] documented as of this encounter Procedures Procedure [...] intervals supplied above were not validated at [facility]. Results from pediatric patients should be interpreted [...] the following links into your internet browser. [email or web address] Blood specimen (specimen) 06/15/2015 10:36 AM EST 06/15/2015 10:49 AM EST Narrative Resulting Agency Comment Spec In Lab Carlee Montenegro MD CHEMISTRY ORDERABLES [facility] * Surgical Pathology Report (06/14/2015 5:25 PM EST) Final Diagnosis [id number] ? Location: [facility]; [facility]6; The signing pathologist has (i) examined [...] (R3) ?? yal 06/17/2015 10:21 AM EST [facility] BREAST STRUCTURE / Unknown 06/14/2015 5:25 PM EST 06/14/2015 5:25 PM EST BREAST STRUCTURE / Unknown 06/14/2015 5:25 PM EST 06/14/2015 5:25 PM EST Carlee Montenegro MD PATHOLOGY/CYTOLOGY O ELLA [facility] [place] [address] * Specimen to Pathology (surgical or derm) [...] MD) documented in this encounter Care Teams Track Liner Operator Relationship Specialty Start Date End Date Chantell Mims APRN PCP - General 07/09/13 05/09/16 documented as of this encounter
--- OUTSIDE RECORDS SUMMARY | 2024-02-20 13:40 | XMS_ITS | Encounter Summary ---
Author Organization [facility] [place] [address] Care Team Providers Care Telecommunications Line Installer Name Role Phone Juan Smith MD Primary Care Provider [phone] Reason for Referral * Diagnostic Test (Routine) - Closed Specialty Diagnoses / Procedures Referred By Contac t Referred To Contact Radiology Diagnoses Chest pain, unspecified type SOB (shortness of breath) Procedures NM Pharmacologic Stress Myocardial Perfusion Tory Montalvo MD [facility] [place] [address] [place] [address] Referral ID Status Reason Start Date Expiration Date V isits Requested Visits Authorized [id number] Closed Specialty Service Requested 03/05/2019 05/03/2019 1 1 Reason for Visit * Diagnostic Test (Routine) - Closed Specialty Diagnoses / Procedures Referred By Contac t Referred To Contact Radiology Diagnoses Chest pain, unspecified type SOB (shortness of breath) Procedures NM Pharmacologic Stress Myocardial Perfusion Tory Montalvo MD [facility] [place] [address] [place] [address] Referral ID Status Reason Start Date Expiration Date V isits Requested Visits Authorized [id number] Closed Specialty Service Requested 03/05/2019 05/03/2019 1 1 Encounter Details Date Type Department Care Team (Latest Contact Info) Description 03/12/2019 9:21 AM EDT - 03/12/2019 9:22 AM EDT Hospital Encounter [place] [address] Tory Montlavo MD Chest pain, unspecified type; SOB (shortness [...] azelastine (ASTELIN) 137 mcg (0.1 %) Aerosol, [place] 0 11/06/2017 0 09/03/2022 ASCORBATE CALCIUM (VITAMIN C ORAL) Take by mouth. 09/03/2022 ERGOCALCIFEROL, VITAMIN D2, (VITAMIN D ORAL) Take by mouth. multivitamin (THERAGRAN) tablet Take 1 tablet by mouth daily. 09/03/2022 fexofenadine (EVANGELINA) 180 mg tablet 180 mg, PO, Once daily 08/28/2010 09/03/2022 Mometasone (NASONEX) 50 mcg/Actuation [place] 2 [place](s) each nostril, Nasal, Twice daily 08/28/2010 09/03/2022 documented as of this encounter Plan of Treatment Upcoming Encounters Date Type Department Care Team (Late st Contact Info) Description 03/13/2024 9:45 AM EDT Office Visit Dermatology at [place] [address] [facility] [place] [address] Emiliano Salinas MD [address] [facility], BAKARI [place] [address] documented as of this encounter Procedures Procedure [...] mCi documented in this encounter Care Teams Telecommunications Line Installer Relationship Specialty Start Date End Date Juan Smith MD PCP - General Family Medicine 05/10/16 09/02/21 documented as of this encounter
--- OUTSIDE RECORDS SUMMARY | 2024-02-20 13:40 | XMS_ITS | Encounter Summary ---
Author Organization Formerly [facility] Address [facility] [place] [address] Care Team Providers Care Finance Analyst Name Role Phone Juan Smith MD Primary Care Provider [phone] Reason for Visit * Reason Comments Weight Management * Consultation (Routine) - Specialty Diagnoses / Procedures Referred By Contac t Referred To Contact Weight and Wellness Diagnoses familail hypercholesterolemia, THERESA, increased BMI, hypothyroidism eGorgia Garduno MD [address] [place] [address] [facility] [address] [place] [address] Referral ID Status Reason Start Date Expiration Date V isits Requested Visits Authorized [id number] Consult, Test & Treat [facility] 10/28/2017 10/28/2018 1 1 Encounter Details Date Type Department Care Team (Late st Contact Info) Description 12/06/2017 9:00 AM EDT Office Visit Weight and Wellness at [facility] [address] [place] [address] Natalie Stephens MD [facility] [place] [address] Class 1 obesity; THERESA on CPAP; [...] Date: 12/06/17 PI/Designee: Dr. Félix Hernandez/Brian Hudson [facility] [id number]: [facility] Biorepository VELOS: [id number] Yessenia Luong??consented to participate in the above-named [...] consent. Brian Hudson, CCRC Associate Research Coordinator [facility] Pager: [phone] * Natalie Stephens MD - 12/06/2017 9:00 [...] a 67 y.o. female referred to the [facility] for an evaluation of obesity. Weight History: [...] bigger portions. She notes that as an Hebrew, there is a culture of eating, and eating is love. She denies a history of binge eating; she notes that she does have very large servings of food after drinking too much--3-4 glasses of wine at a republican. Lowest weight in adulthood was 128 pounds at the time she was in 1978. Prior weight loss attempts have included reduced portion sizes, skipped meals, decreased intake of fat and carbohydrates, increased physical activity and weight loss medications. She has participated in structured weightloss programs including Weight [employer], [facility] Med[facility]. She has not used [id number]-[id number] weight loss medications. She has used prescription [...] Exercise: Riding her bike 1-2x/week, occasional walking [facility] Initial Responses 12/06/2017 URICA - Readiness [...] TFEQ-Emotional Eating 66.66 Food Insecurity Score 2 [facility] Category I Result 1 (Positive) [facility]itage Category II Result 1 (Positive) [facility]itage Category III 0 (Negative) [facility] Sleep Apnea Total 2 (High Risk) Schooling [...] ability to hike and be physically active [facility] Followup Responses 12/06/2017 URICA - Readiness [...] AND RECOMMENDATIONS: Yessenia Luong presents to the [facility] for a consultative visit regarding obesity [...] that obesity is a chronic disease requiring senior living management. Obesity is associated with increased risk [...] in the HealthyLifestyles Program (HLP) at the [facility], but due to her distance from [...] ?? Intolerant of statins--followed by a local mechanical design drafter, and currently maintained on evolocumab. THERESA: ?? Diagnosed with sleep study ?? Continue CPAP as prescribed I spent a total of 60 minutes with the patient 45 minutes of which were spent in pbkz-[id number] discussion/counseling re obesity, nutrition and activity as [...] EDT Office Visit Dermatology at [place] [address] [place] [phone] Emiliano Salinas MD [address], [place] [address] documented as of this encounter Procedures Procedure [...] PM EDT) Biorepository Hold Sample in lab [facility] Stool specimen (specimen) 12/13/2017 2:00 PM EDT 12/24/2017 1:18 PM EDT Narrative Resulting Agency Comment Spec In Lab Natalie Stephens MD MOLECULAR ORDERABLES Performing Organization Address City/[facility]/ZIP Co de Phone Number [facility] [place] [address] * Biorepository Request (12/06/2017 10:45 AM EDT) Biorepository Hold Sample in lab [facility] Blood specimen (specimen) 12/06/2017 10:45 AM EDT 12/06/2017 4:01 PM EDT Narrative Resulting Agency Comment Spec In Lab Natalie Stephens MD MOLECULAR ORDERABLES Performing Organization Address [facility] Co de Phone Number [facility] [place] [address] * Vitamin D, 25-Hydroxy (12/06/2017 10:45 AM EDT) Pathologist [facility] Vitamin D Total 25 OH 41 30 - 100 ng/mL [facility] Comment: Deficient <10 ng/mL Insufficient 10 to 29 ng/mL Sufficient 30 to 100 ng/mL Potential Intoxication >100 ng/mL According to the [place] National Osteoporosis Foundation, Vitamin D concentrations >30 ng/mL are sufficient to protect bone health. ??The National Kidney Foundation has similarly stated that patients with Vitamin D concentrations <30ng/mL should be considered to be insufficient or deficient. http://[employer]/nkf-guidelines http://[employer]/nejm-VitD The [employer] i[employer] Vitamin D Immunoassay detects both 25-OH Vitamin D2 and 25-OH Vitamin D3, but only a total Vitamin D concentration is reported. Blood specimen (specimen) 12/06/2017 10:45 AM EDT 12/06/2017 2:47 PM EDT Narrative Resulting Agency Comment Spec In Lab Natalie Stephens MD CHEMISTRY ORDERABLES Performing Organization Address City/[facility]/ZIP Co de Phone Number [facility] [place] [address] * (ABNORMAL) Comprehensive metabolic panel (non-fasting) (12/06/2017 10:45 AM EDT) Glucose 99 65 - 199 mg/dL [facility] Comment:Diabetes: >=200 mg/d L plus symptoms Blood Urea Nitrogen 21(H) 8 - 18 mg/dL [facility] Creatinine 0.79 0.70 - 1.20 mg/dL [facility] Sodium 144 135 - 145 mmol/L [facility] Potassium 4.3 3.5 - 5.0 mmol/L [facility] Comment: Please note: ??Patients with WBC >100,000 may have falsely elevated Potassium levels. ??For accurate Potassium quantification in these patients send serum separator tube (gold top) for subsequent determinations. ??Contact the Clinical Chemistry Laboratory if there are any questions. Chloride 102 98 - 107 mmol/L [facility] Carbon Dioxide 26 22 - 31 mmol/L [facility] Anion Gap 16(H) 5 - 15 mmol/L [facility] Calcium 10.0 8.5 - 10.5 mg/dL [facility] Protein, Total 7.2 6.1 - 8.0 gm/dL [facility] Albumin 4.4 3.2 - 5.2 gm/dL [facility] Aspartate Aminotransferase 19 0 - 30 unit/L [facility] Alanine Aminotransferase 18 0 - 30 unit/L [facility] Alkaline Phosphatase 67 40 - 104 unit/L [facility] Bilirubin, Total 0.3 0.2 - 1.3 mg/dL [facility] Est Glomerular Filtration Rate 77 >=60 mL/min/1. 73 m?? [facility] Comment: The eGFR was calculated using the CKD-EPI equation. As with all creatinine based estimates of kidney function, eGFR values calculated with the CKD-EPI equation are not accurate in patients with acute kidney failure, extremes of body mass or the acutely ill. http://[employer]/DHnkdep http://M[employer]/DHMCnkf eGFR 89 >=60 mL/min/1. 73 m?? [facility] Comment: The eGFR was calculated using the CKD-EPI equation. As with all creatinine based estimates of kidney function, eGFR values calculated with the CKD-EPI equation are not accurate in patients with acute kidney failure, extremes of body mass or the acutely ill. http://Moodsnap/DHnkdep http://Moodsnap/DHMCnkf Blood specimen (specimen) 12/06/2017 10:45 AM EDT 12/06/2017 1:21 PM EDT Narrative Resulting Agency Comment Spec In Lab Natalie Stephens MD CHEMISTRY ORDERABLES [facility] [place] [address] * Hemoglobin A1c (12/06/2017 10:45 AM EDT) Hemoglobin A1c 5.6 4.3 - 5.6 % [facility] Comment: Reference Range: 4.3 [...] Mellitus, Diabetes Care 2013; 36: Suppl. 1, O51-50 Estimated Average Glucose 114 mg/dL [facility] Comment: eAG equivalents for [...] into estimated average glucose values. ??Diabetes Care 2008:31(8):4183-6489. Blood specimen (specimen) 12/06/2017 10:45 AM EDT 12/06/2017 12:54 PM EDT Narrative Resulting Agency Comment Spec In Lab Natalie Stephens MD CHEMISTRY ORDERABLES Performing Organization Address [facility] Co de Phone Number [facility] [place] [address] * TSH (12/06/2017 10:45 AM EDT) Thyroid Stimulating Hormone 2.41 0.27 - 4.20 mlU/ML [facility] Blood specimen (specimen) 12/06/2017 10:45 AM EDT 12/06/2017 1:21 PM EDT Narrative Resulting Agency Comment Spec In Lab Natalie Stephens MD CHEMISTRY ORDERABLES Performing Organization Address [facility] Co de Phone Number [facility] [place] [address] documented in this encounter Visit Diagnoses Diagnosis Class 1 obesity THERESA on CPAP Obstructive sleep apnea (adult) (pediatric) Depression, unspecified depression type Vitamin D deficiency Unspecified vitamin D deficiency Anxiety disorder, unspecified type Impaired glucose tolerance Impaired glucose tolerance test documented in this encounter Care Teams Finance Analyst Relationship Specialty Start Date End Date Juan Smith MD PCP - General Family Medicine 05/10/16 09/02/21 documented as of this encounter
--- OUTSIDE RECORDS SUMMARY | 2024-02-20 13:40 | XMS_ITS | Encounter Summary ---
Author Organization [facility] Address [facility] [place] [address] Care Team Providers Care Structural Iron Worker Name Role Phone Juan Smith MD Primary Care Provider [phone] Encounter Details Date Type Department Care Team (Latest Contact Info) Description 12/30/2017 3:30 PM EDT Office Visit Weight and Wellness at [address] [phone] Natalie Stephens MD [facility] [place] [address] Class 1 obesity due to excess calories [...] Stephens MD - 12/30/2017 3:30 PM EDT [facility] Visit Patient Name: Yessenia Luong Date of : 1950 Age: [address] Juan Smith MD Thank you for referring Yessenia Luong to the [facility] for consultation regarding obesity. CHIEF COMPLAINT: Follow-up for Obesity INTERVAL HISTORY / PROGRESS TOWARD GOALS: [x] I reviewed past / interim records including notes and labs. Last seen by me on 12/06/17, and by our dietitian and health head strength and conditioning coach earlier today. She is participating in [...] mg PO daily. She is going to [facility] for 3 weeks starting next week. She reports that she has been tracking her food intake through the [employer], and found that she eats between 2500 - 3500 calories per day--it's just a republican all the time. She is interested in [...] Date AST 19 12/06/2017 ALT 18 12/06/2017 [facility] Followup Responses 12/06/2017 URICA - Readiness Score [...] affect today SUMMARY OF VISIT AND RECOMMENDATIONS: Ysesenia Luong was seen in follow up today and an updated medical, diet and activity review was completed. Additional goals were set for changes in health habits (see below) as was a plan for evaluation and treatment of obesity related co-morbidities. Medical issues and plan: Class I Obesity: ?? Medical Management: The patient is currently participating in the Medical Management Pathway at the [facility]. She is gaining insights into food choices, [...] 20 minutes of which were spent in awls-[id number] discussion/counseling re obesity, nutrition and activity as well as obesity related co-morbidities documented in this encounter Plan of Treatment Upcoming Encounters Date Type Department Care Team (Late st Contact Info) Description 03/13/2024 9:45 AM EDT Office Visit Dermatology at [place] [address] [place] [phone] Emiliano Salinas MD [address] [facility] [place] [address] documented as of this encounter Visit Diagnoses Diagnosis Class 1 obesity due to excess calories with serious comorbidity and body mass index (BMI) of 30.0 to 30.9 in adult Hyperlipidemia, unspecified hyperlipidemia type documented in this encounter Care Teams Structural Iron Worker Relationship Specialty Start Date End Date Juan Smith MD PCP - General Family Medicine 05/10/16 09/02/21 documented as of this encounter
--- OUTSIDE RECORDS SUMMARY | 2024-02-20 13:40 | XMS_ITS | Encounter Summary ---
Author Organization [facility] [place] [address] Care Team Providers Care Nail Technician Name Role Phone Juan Smith MD Primary Care Provider [phone] Reason for Referral * Diagnostic Test (Routine) - Closed Specialty Diagnoses / Procedures Referred By Contac t Referred To Contact Radiology Diagnoses Chest pain, unspecified type SOB (shortness of breath) Procedures NM Pharmacologic Stress Myocardial Perfusion Tory Chambers MD [facility] [place] [address] [place] [address] Referral ID Status Reason Start Date Expiration Date V isits Requested Visits Authorized [id number] Closed Specialty Service Requested 03/05/2019 05/03/2019 1 1 * Diagnostic Test (Routine) - Closed Specialty Diagnoses / Procedures Referred By Contac t Referred To Contact Radiology Diagnoses Chest pain, unspecified type SOB (shortness of breath) Procedures NM Pharmacologic Stress CT Component Tory Chambers MD [facility] [place] [address] [place] [address] Referral ID Status Reason Start Date Expiration Date V isits Requested Visits Authorized [id number] Closed Specialty Service Requested 02/13/2019 02/13/2020 1 1 Reason for Visit * Consultation (Routine) - Closed Specialty Diagnoses / Procedures Referred By Contac t Referred To Contact Cardiology Diagnoses Familial hypercholesterolemia Pt has not tolerated statins or PSK9 agents. Referral to [facility] lipid clinic. Juan Smith MD [address] [place] [address] [place] [address] Tory Chambers MD [facility] [place] [address] Referral ID Status Reason Start Date Expiration Date Visits Re quested Visits Authorized [id number] Closed 12/09/2018 12/09/2019 1 1 Encounter Details Date Type Department Care Team (Late st Contact Info) Description 02/13/2019 11:20 AM EDT Office Visit Cardiology at [place] [phone] Tory Chambers MD Familial hypercholesterolemia; Chest pain, [...] Chambers MD - 02/13/2019 11:20 AM EDT [facility] Lipid Clinic--Initial Consultation [...] history: 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 She was in 2002 and has had a significant other for many years. Boyfriend (Deacon Peterson) lives in [place]. She has 5 children (2 biologic and [...] She has a niece that works for [employer] and told her about the [employer] [...] chicken sausage coffee almond milk Lunch: salad Kiswahili dressing, Oat bread sandwich - cheese and [...] azelastine (ASTELIN) 137 mcg (0.1 %) Aerosol, [place] 0 ??? PROVENTIL HFA 90 mcg/actuation HFA [...] Once daily ??? Mometasone (NASONEX) 50 mcg/Actuation [place] 2 [place](s) each nostril, Nasal, Twice daily No current [...] explained that it is offered here at [facility] but that it is quite a commitment. [...] 9:45 AM EDT Office Visit Dermatology at [place] [address] [place] [address] Emiliano Salinas MD [address], BAKAR[place] [address] documented as of this encounter Results * CRP, cardiac risk (HS CRP) (04/17/2019 9:21 AM EST) [facility] C-Reactive Protein High Sensitivity 1.6 mg/L [facility] Comment: For cardiac risk assessment, [...] 2003; 107:363-369 CRP Cardiac Risk Moderate Risk [facility] Blood specimen (specimen) 04/17/2019 9:21 AM EST 04/17/2019 9:40 AM EST Narrative Resulting Agency Comment Spec In Lab Tory Chambers MD CHEMISTRY ORDERABLES [facility] [place] [address] * Lipid Panel (Reflex Direct LDL) (04/17/2019 9:21 AM EST) [facility] Cholesterol, Total 252 mg/dL [facility] Comment: Lower Risk: <200 mg/dL Average Risk: 200-239 mg/dL Higher Risk: >gm=822 mg/dL Triglyceride 157 mg/dL [facility] Comment: Average Risk/Lower Risk: <150 mg/dL Borderline High Risk: 150-199 mg/dL High Risk: 200-499 mg/dL Very High Risk: >uj=701 mg/dL HDL Cholesterol 74 mg/dL [facility] Comment: Males: ?? Higher Risk: <40 mg/dL Females: ?? HIgher Risk: <50 mg/dL LDL Cholesterol 147 mg/dL [facility] Comment: Lowest Risk: <100 mg/dL Lower Risk: 100-129 mg/dL Borderline High Risk: 130-159 mg/dL High Risk: 160-189 mg/dL Very High Risk: >ld=979 mg/dL Cholesterol/HDL Ratio 3.4 ratio [facility] Lipid Interpretation See Note [facility] Comment: Lipid management should be guided by a patient? s ASCVD risk, goals and preferences. ACC/AHA Guidelines recommend high intensity statin if clinical ASCVD or LDL greater than or equal to 190 mg/dL. http://Xoinka.com/CCO-EIR-Ixanxafjr Adults aged 40-75 with LDL 70-189 mg/dL should have their 10 year ASCVD risk estimated with the ACC/AHA ASCVD risk real estate manager http://tools.acc.org/UBIMH-Loak-Jaroyxrne/ Statin should be discussed if risk greater [...] In Lab Tory Chambers MD CHEMISTRY ORDERABLES [facility] [place] [address] * NM Pharmacologic Stress CT Component (03/12/2019 [...] contact the number below. Tory Chambers MD [facility] [place] ORDERABLES * TSH (02/13/2019 9:49 AM EDT) Thyroid Stimulating Hormone 2.34 0.27 - 4.20 mcIU/mL [facility] Blood specimen (specimen) 02/13/2019 9:49 AM EDT 02/13/2019 9:59 AM EDT Narrative Resulting Agency Comment Spec In Lab Tory Chambers MD CHEMISTRY ORDERABLES [facility] [place] [address] * (ABNORMAL) Comprehensive metabolic panel (non-fasting) (02/13/2019 9:49 AM EDT) Glucose 108 65 - 199 mg/dL [facility] Comment:Diabetes: >=200 mg/d L plus symptoms Blood Urea Nitrogen 19(H) 8 - 18 mg/dL [facility] Creatinine 0.79 0.70 - 1.20 mg/dL [facility] Sodium 142 135 - 145 mmol/L [facility] Potassium 3.6 3.5 - 5.0 mmol/L [facility] Comment: Please note: ??Patients with WBC >100,000 may have falsely elevated Potassium levels. ??For accurate Potassium quantification in these patients send serum separator tube (gold top) for subsequent determinations. ??Contact the Clinical Chemistry Laboratory if there are any questions. Chloride 101 98 - 107 mmol/L [facility] Carbon Dioxide 28 22 - 31 mmol/L [facility] Anion Gap 13 5 - 15 mmol/L [facility] Calcium 9.8 8.5 - 10.5 mg/dL [facility] Protein, Total 7.5 6.1 - 8.0 gm/dL [facility] Albumin 4.8 3.2 - 5.2 gm/dL [facility] Aspartate Aminotransferase 22 0 - 30 unit/L [facility] Alanine Aminotransferase 24 0 - 30 unit/L [facility] Alkaline Phosphatase 64 35 - 105 unit/L [facility] Bilirubin, Total 0.4 0.2 - 1.3 mg/dL [facility] Est Glomerular Filtration Rate 76 >=60 mL/min/1. 73 m?? [facility] Comment: The eGFR was calculated using the CKD-EPI equation. As with all creatinine based estimates of kidney function, eGFR values calculated with the CKD-EPI equation are not accurate in patients with acute kidney failure, extremes of body mass or the acutely ill. [email or web address]nk eGFR 88 >=60 mL/min/1. 73 m?? [facility] Comment: The eGFR was calculated using the CKD-EPI equation. As with all creatinine based estimates of kidney function, eGFR values calculated with the CKD-EPI equation are not accurate in patients with acute kidney failure, extremes of body mass or the acutely ill. [email or web address]WARDnkf Blood specimen (specimen) 02/13/2019 9:49 AM EDT 02/13/2019 9:59 AM EDT Narrative Resulting Agency Comment Spec In Lab Tory Chambers MD CHEMISTRY ORDERABLES Performing Organization Address [facility]/ZIP Co de Phone Number [facility] [place] [address] * Lipoprotein A (02/13/2019 9:49 AM EDT) Lipoprotein (a) 6 <=30 mg/dL [facility] Comment: Test Performed by: [place] [address] Treating Plant Operator: Kyle Michel M.D. Ph.D.; CLIA# [id number] Blood specimen (specimen) 02/13/2019 9:49 AM EDT 02/13/2019 3:06 PM EDT Narrative Resulting Agency Comment Spec In Lab Tory Chambers MD LAB SEND OUT ORDERAB LES Performing Organization Address City/[facility]/ZIP Co de Phone Number [facility] [place] [address] * Lipid Panel (02/13/2019 9:49 AM EDT) Cholesterol, Total 324 mg/dL [facility] Comment: Lower Risk: <200 mg/dL Average Risk: 200-239 mg/dL Higher Risk: >gq=634 mg/dL Triglyceride 183 mg/dL [facility] Comment: Average Risk/Lower Risk: <150 mg/dL Borderline High Risk: 150-199 mg/dL High Risk: 200-499 mg/dL Very High Risk: >nf=693 mg/dL HDL Cholesterol 68 mg/dL [facility] Comment: Males: ?? Higher Risk: <40 mg/dL Females: ?? HIgher Risk: <50 mg/dL LDL Cholesterol 219 mg/dL [facility] Comment: Lowest Risk: <100 mg/dL Lower Risk: 100-129 mg/dL Borderline High Risk: 130-159 mg/dL High Risk: 160-189 mg/dL Very High Risk: >xl=971 mg/dL Cholesterol/HDL Ratio 4.8 ratio [facility] Lipid Interpretation See Note [facility] Comment: Lipid management should be guided by a patient? s ASCVD risk, goals and preferences. ACC/AHA Guidelines recommend high intensity statin if clinical ASCVD or LDL greater than or equal to 190 mg/dL. http://Xoinka.com/XRX-JIK-Cieyihrzv Adults aged 40-75 with LDL 70-189 mg/dL should have their 10 year ASCVD risk estimated with the ACC/AHA ASCVD risk real estate manager http://tools.acc.org/ASJUB-Zjgy-Vlxdtniac/ Statin should be discussed if risk greater [...] In Lab Tory Chambers MD CHEMISTRY ORDERABLES [facility] [place] [address] documented in this encounter Visit Diagnoses Diagnosis Familial hypercholesterolemia Pure hypercholesterolemia Chest pain, unspecified type SOB (shortness of breath) Shortness of breath Chest pain, unspecified type SOB (shortness of breath) Shortness of breath Chest pain, unspecified type SOB (shortness of breath) Shortness of breath documented in this encounter Care Teams Nail Technician Relationship Specialty Start Date End Date Juan Simth MD PCP - General Family Medicine 05/10/16 09/02/21 documented as of this encounter
--- OUTSIDE RECORDS SUMMARY | 2024-02-20 13:40 | XMS_ITS | Encounter Summary ---
Author Organization [facility] Address [facility] [place] [address] Care Team Providers Care Software Configuration Manager Name Role Phone Juan Smith MD Primary Care Provider [phone] Reason for Visit * Reason Comments Follow-up Encounter Details Date Type Department Care Team (Late st Contact Info) Description 03/12/2019 3:00 PM EDT Office Visit Dermatology at [facility] [address] [place] [address] Vern Salmeron MD [facility] [address] [place] [address] Rosacea; Lentigines; Holt angiomas; Seborrheic keratoses; Seborrheic [...] 03/12/2019 3:00 PM EDT Yessenia Luong 03/12/2019 [id number] Raymundo Salmeron MD ([id number]) Chief Problem: 1. Pigmented Lesion and Skin [...] azelastine (ASTELIN) 137 mcg (0.1 %) Aerosol, [place] 0 ??? PROVENTIL HFA 90 mcg/actuation HFA [...] Once daily ??? Mometasone (NASONEX) 50 mcg/Actuation [place] 2 [place](s) each nostril, Nasal, Twice daily No current [...] 9:45 AM EDT Office Visit Dermatology at [place] [address] [place] [address] Emiliano Salinas MD [address], [place] [address] documented as of this encounter Visit Diagnoses Diagnosis Rosacea Lentigines Other dyschromia Holt angiomas Nevus, non-neoplastic Seborrheic keratoses Other seborrheic keratosis Seborrheic keratoses, inflamed Inflamed seborrheic keratosis Hair thinning Alopecia, unspecified documented in this encounter Care Teams Software Configuration Manager Relationship Specialty Start Date End Date Juan Smith MD PCP - General Family Medicine 05/10/16 09/02/21 documented as of this encounter
--- OUTSIDE RECORDS SUMMARY | 2024-02-20 13:40 | XMS_ITS | Encounter Summary ---
Author Organization [facility] Address [facility] [place] [address] Care Team Providers Care Fashion Stylist Name Role Phone Chantell Sharma APRN Primary Care Provider [phone] Encounter Details Date Type Department Care Team (Late st Contact Info) Description 02/07/2016 Telephone Dermatology at [facility] [address] [place] [phone] Vern Salmeron MD [facility] [address] [place] [address] Social History Tobacco Use Types Packs/Day Years [...] RN - 02/07/2016 3:10 PM EDT This bid writer returned patient's call. She requested an [...] 9:45 AM EDT Office Visit Dermatology at [place] [address] [place] [address] Emiliano Salinas MD [address], [place] [address] documented as of this encounter Visit Diagnoses Not on filedocumented in this encounter Care Teams Fashion Stylist Relationship Specialty Start Date End Date Chantell Sharma APRN PCP - General 07/09/13 05/09/16 documented as of this encounter
--- OUTSIDE RECORDS SUMMARY | 2024-02-20 13:40 | XMS_ITS | Encounter Summary ---
Author Organization [facility] [place] [address] Care Team Providers Care Injection Molding Machine Operator Name Role Phone Juan Smith MD Primary Care Provider [phone] Reason for Visit * Diagnostic Test (Routine) - Closed Specialty Diagnoses / Procedures Referred By Contac t Referred To Contact Radiology Diagnoses Chest pain, unspecified type SOB (shortness of breath) Procedures NM Pharmacologic Stress Myocardial Perfusion Tory Montalvo MD [facility] [place] [address] [place] [address] Referral ID Status Reason Start Date Expiration Date V isits Requested Visits Authorized [id number] Closed Specialty Service Requested 03/05/2019 05/03/2019 1 1 Encounter Details Date Type Department Care Team (Latest Contact Info) Description 03/12/2019 9:24 AM EDT Hospital Encounter [place] [address] Tory Montalvo MD Discharge Disposition: [...] azelastine (ASTELIN) 137 mcg (0.1 %) Aerosol, [place] 0 11/06/2017 0 09/03/2022 ASCORBATE CALCIUM (VITAMIN C ORAL) Take by mouth. 09/03/2022 ERGOCALCIFEROL, VITAMIN D2, (VITAMIN D ORAL) Take by mouth. multivitamin (THERAGRAN) tablet Take 1 tablet by mouth daily. 09/03/2022 fexofenadine (EVANGELINA) 180 mg tablet 180 mg, PO, Once daily 08/28/2010 09/03/2022 Mometasone (NASONEX) 50 mcg/Actuation [place] 2 [place](s) each nostril, Nasal, Twice daily 08/28/2010 09/03/2022 documented as of this encounter Plan of Treatment Upcoming Encounters Date Type Department Care Team (Late st Contact Info) Description 03/13/2024 9:45 AM EDT Office Visit Dermatology at [place] [address] [place] [address] Emiliano Salinas MD [address], [place] [address] documented as of this encounter Procedures Procedure [...] Arm documented in this encounter Care Teams Injection Molding Machine Operator Relationship Specialty Start Date End Date Juan Smith MD PCP - General Family Medicine 05/10/16 09/02/21 documented as of this encounter
--- OUTSIDE RECORDS SUMMARY | 2024-02-20 13:40 | XMS_ITS | Encounter Summary ---
Author Organization [facility] Address [facility] [place] [address] Care Team Providers Care Party Demonstrator Name Role Phone Chantell Sharma APRN Primary Care Provider [phone] Reason for Visit * Reason Comments Skin Check Hair Loss Encounter Details Date Type Department Care Team (Late st Contact Info) Description 02/06/2016 10:00 AM EDT Office Visit Dermatology at [facility] [address] [place] [address] Javan Juares MD [facility] [address] [place] [address] Androgenetic alopecia; Telangiectasia; Rhytides Social History Tobacco [...] also a patient of Dr. Salinas in [facility]. Skin History: Rosacea Telangiectasia Medical [...] MAGNESIUM ORAL) ??? Mometasone (NASONEX) 50 mcg/Actuation [place] 2 [place](s) each nostril, Nasal, Twice daily No current [...] by Javan Juares MD Resident in Dermatology [facility] Staff furniture repairer: Karla Gaines MD Section of Dermatology [facility] * Karla Gaines MD - 02/06/2016 10:00 AM EDT I was the supervising physician working with Dermatology resident, Dr. Juares, in the Dermatology Clinic during this patient visit. The level of resident supervision for this patient visit was indirect supervision with direct supervision immediately available (definition: [facility] Policy Statement on Graduate Medical Education, Supervision of Graduate Medical Trainees). I was immediately available to Dr. Juares for questions and discussion regarding this visit. I have reviewed his encounter note details and level of service. KARLA GAINES MD [facility] Staff Physician documented in this encounter Plan of Treatment Upcoming Encounters Date Type Department Care Team (Late st Contact Info) Description 03/13/2024 9:45 AM EDT Office Visit Dermatology at [place] [address] [facility] [place] [phone] Emiliano Salinas MD [address], [place] [address] documented as of this encounter Visit Diagnoses Diagnosis Androgenetic alopecia Other alopecia Telangiectasia Other and unspecified capillary diseases Rhytides Other specified hypertrophic and atrophic condition of skin documented in this encounter Care Teams Party Demonstrator Relationship Specialty Start Date End Date Chantell Sharma APRN PCP - General 07/09/13 05/09/16 documented as of this encounter
--- OUTSIDE RECORDS SUMMARY | 2024-02-20 13:40 | XMS_ITS | Encounter Summary ---
Author Organization [facility] Address [facility] [place] [address] Care Team Providers Care Grommet Worker Name Role Phone Juan Smith MD Primary Care Provider [phone] Encounter Details Date Type Department Care Team (Latest Contact Info) Description 12/13/2017 3:11 PM EDT - 12/13/2017 11:59 PM EDT Hospital [place] [address] Natalie Stephens MD [facility] [place] [address] Class 1 obesity Discharge Disposition: Home Social [...] azelastine (ASTELIN) 137 mcg (0.1 %) Aerosol, [place] 0 11/06/2017 09/03/2022 ASCORBATE CALCIUM (VITAMIN C ORAL) Take by mouth. ERGOCALCIFEROL, VITAMIN D2, (VITAMIN D ORAL) Take by mouth. 09/03 multivitamin (THERAGRAN) tablet Take 1 tablet by mouth daily. 09/03/2022 fexofenadine (EVANGELINA) 180 mg tablet 180 mg, PO, Once daily 08/28/2010 09/03/2022 Mometasone (NASONEX) 50 mcg/Actuation [place] 2 [place](s) each nostril, Nasal, Twice daily 08/28/2010 09/03/2022 documented as of this encounter Plan of Treatment Upcoming Encounters Date Type Department Care Team (Late st Contact Info) Description 03/13/2024 9:45 AM EDT Office Visit Dermatology at [place] [address] [facility] [place] [address] Emiliano Salinas MD [address], [place] [address] documented as of this encounter Procedures Procedure Name Priority Date/Time Associated Diagnosis Comments BIOREPOSITORY REQUEST Routine 12/13/2017 2:00 PM EDT Class 1 obesity documented in this encounter Results * Biorepository Request (12/13/2017 2:00 PM EDT) Biorepository Hold Sample in lab [facility] Stool specimen (specimen) 12/13/2017 2:00 PM EDT 12/24/2017 1:18 PM EDT Narrative Resulting Agency Comment Spec In Lab Natalie Stephens MD MOLECULAR ORDERABLES [facility] [place] [id number] documented in this encounter Visit Diagnoses Diagnosis Class 1 obesity documented in this encounter Care Teams Grommet Worker Relationship Specialty Start Date End Date Juan Smith MD PCP - General Family Medicine 05/10/16 09/02/21 documented as of this encounter
--- OUTSIDE RECORDS SUMMARY | 2024-02-20 13:40 | XMS_ITS | Encounter Summary ---
Author Organization [facility] [place] [address] Care Team Providers Care Bill Of Lading Clerk Name Role Phone Chantell Sharma APRN Primary Care Provider [phone] Reason for Visit * Reason Comments Laser Treatment Encounter Details Date Type Department Care Team (Late st Contact Info) Description 02/06/2016 10:30 AM EDT Office Visit Dermatology at [facility] [address] [place] [address] Mariana Young, JYOTI Telangiectasia; Rhytides; Solar lentigo [...] discomfort For further questions and concerns contact: [phone] Pita (Dr. Salmeron's Appointment Beamer Helper) In any case of emergency for weekends and off hours please contact [facility] main number and ask for slime plant operator helper professional system administrator at [phone] documented in this encounter Progress Notes * [...] 9:45 AM EDT Office Visit Dermatology at [place] [address] [place] [address] Emiliano Salinas MD [address], [place] [address] documented as of this encounter Visit Diagnoses Diagnosis Telangiectasia Other and unspecified capillary diseases Rhytides Other specified hypertrophic and atrophic condition of skin Solar lentigo Other dyschromia documented in this encounter Care Teams Bill Of Lading Clerk Relationship Specialty Start Date End Date Chantell Sharma APRN PCP - General 07/09/13 05/09/16 documented as of this encounter
--- OUTSIDE RECORDS SUMMARY | 2024-02-20 13:40 | XMS_ITS | Encounter Summary ---
Author Organization [facility] [place] [address] Care Team Providers Care Prospecting Driller Helper Name Role Phone Juan Smith MD Primary Care Provider [phone] Encounter Details Date Type Department Care Team (Late st Contact Info) Description 06/14/2017 Telephone Dermatology at [facility] [address] [place] [address] Vern Salmeron MD [facility] [address] [place] [address] Social History Tobacco Use Types Packs/Day Years [...] 9:45 AM EDT Office Visit Dermatology at [place] [address] [place] [address] Emiliano Salinas MD [address], [place] [address] documented as of this encounter Visit Diagnoses Not on filedocumented in this encounter Care Teams Prospecting Driller Helper Relationship Specialty Start Date End Date Juan Smith MD PCP - General Family Medicine 05/10/16 09/02/21 documented as of this encounter
--- OUTSIDE RECORDS SUMMARY | 2024-02-20 13:40 | XMS_ITS | Encounter Summary ---
Author Organization [facility] Address [facility] [place] [address] Care Team Providers Care Jackscrew Worker Name Role Phone Juan Smith MD Primary Care Provider [phone] Encounter Details Date Type Department Care Team (Late st Contact Info) Description 12/30/2017 1:30 PM EDT Office Visit Weight and Wellness at [address] [address] Vanesa Cesar Hannah K, RD [facility] [place] [address] Adult BMI 30.0-30.9 kg/sq m Social History [...] day Weight Today: Vitals 12/30/2017 12/06/2017 Height (Iraqi) 5' 3.504 5' 3.504 Height (Metric) 161.3 cm 161.3 cm Weight (Iraqi) 173 lbs 6 oz 174 lbs 14 [...] was an ~1800 calorie day Typical Beverages: Shobonier milk, unsweetened iced tea, wine, etc. Interview: Yessenia reports that she doesn't snack in between meals but eats too much at each meal. Going to [facility] for 3 weeks, discussed that it [...] that matches her measured RMR (~1,400). The manager long term care goal for [place] be [...] 1,400. Assessing Calorie Goals at this time? [facility] Metrics 12/30/2017 RMR (kcal/day) 1389 Monitor/Evaluate: [...] 9:45 AM EDT Office Visit Dermatology at [place] [address] [place] [address] Emiliano Salinas MD [address], BAKARI [place] [address] documented as of this encounter Visit Diagnoses Diagnosis Adult BMI 30.0-30.9 kg/sq m Body Mass Index 30.0-30.9, adult documented in this encounter Care Teams Jackscrew Worker Relationship Specialty Start Date End Date Juan Smith MD PCP - General Family Medicine 05/10/16 09/02/21 documented as of this encounter
--- OUTSIDE RECORDS SUMMARY | 2024-02-20 13:40 | XMS_ITS | Encounter Summary ---
Author Organization [facility] [place] [address] Care Team Providers Care Lacquer Maker Name Role Phone Juan Smith MD Primary Care Provider [phone] Encounter Details Date Type Department Care Team (Latest Contact Info) Description 02/13/2019 11:20 AM EDT Clinical Support Cardiology at [address] [address] Derick Acosta, RD [facility] [place] [address] Nutritional counseling Social History Tobacco Use Types [...] a) Food & Symptom Record-keeping. Suggested using [employer] [facility] to track intakes. NUTRITION EDUCATION: Discussed [...] least four times/week for iodine b) Reduce zpo-qctlrbcx-nephd foods NUTRITION MONITORING PLAN/EVALUATION/SURVEILLANCE PLAN: See patient when she returns for her cardiology f/u. Discuss questions and concerns. Do nutrient analysis. documented in this encounter Plan of Treatment Upcoming Encounters Date Type Department Care Team (Late st Contact Info) Description 03/13/2024 9:45 AM EDT Office Visit Dermatology at [place] [address] [facility] [place] [address] Emiliano Salinas MD [address], [place] [address] documented as of this encounter Visit Diagnoses Diagnosis Nutritional counseling documented in this encounter Care Teams Lacquer Maker Relationship Specialty Start Date End Date Juan Smith MD PCP - General Family Medicine 05/10/16 09/02/21 documented as of this encounter
--- OUTSIDE RECORDS SUMMARY | 2024-02-20 13:40 | XMS_ITS | Encounter Summary ---
Author Organization [facility] [place] [address] Care Team Providers Care Physically Impaired Teacher Name Role Phone Sharma Chantellrebecca Lester APRN Primary Care Provider [phone] Reason for Visit * Reason Comments Follow Up Surgery BBR and abdominoplas ty Encounter Details Date Type Department Care Team (Late st Contact Info) Description 06/28/2015 1:00 PM EST Office [place] [address] Carlee Marvin MD [facility] [place] [address] Status post bilateral breast reduction Social History [...] may remove with PCP or return to [facility]. 9. While traveling make sure to walk [...] her outcome. She will be traveling to [place] in August. Examination: Patient is alert, conversant, [...] may remove with PCP or return to [facility]. 9. While traveling make sure to walk [...] 9:45 AM EDT Office Visit Dermatology at [place] [address] [place] [address] Emiliano Salinas MD [address] [facility], [place] [address] documented as of this encounter Visit Diagnoses Diagnosis Status post bilateral breast reduction Other postprocedural status documented in this encounter Care Teams Physically Impaired Teacher Relationship Specialty Start Date End Date Chantell Sharma APRN PCP - General 07/09/13 05/09/16 documented as of this encounter
--- OUTSIDE RECORDS SUMMARY | 2024-02-20 13:40 | XMS_ITS | Encounter Summary ---
Author Organization [facility] Address [facility] [place] [address] Care Team Providers Care Caustic Room Attendant Name Role Phone Juan Smith MD Primary Care Provider [phone] Reason for Visit * Reason Comments Procedure Encounter Details Date Type Department Care Team (Late st Contact Info) Description 03/12/2019 3:15 PM EDT Office Visit Dermatology at [facility] [address] [place] [address] Vern Salmeron MD [facility] [address] [place] [address] Encounter for cosmetic procedure Social History Tobacco [...] 3:15 PM EDT Provider: Raymundo Salmeron M.D. ([id number]) 1950 CHIEF PROBLEM: 1. Furrowing and wrinkling [...] AM EDT Office Visit Dermatology at [place] [address] [facility] [address] [place] [address] Emiliano Salinas MD [address], [place] [address] documented as of this encounter Visit Diagnoses [...] Units documented in this encounter Care Teams Caustic Room Attendant Relationship Specialty Start Date End Date Juan Smith MD PCP - General Family Medicine 05/10/16 09/02/21 documented as of this encounter
--- OUTSIDE RECORDS SUMMARY | 2024-02-20 13:40 | XMS_ITS | Encounter Summary ---
Author Organization [facility] [place] [address] Care Team Providers Care Gas Pumping Station Supervisor Name Role Phone Chantell Sharma APRN Primary Care Provider [phone] Reason for Visit * Auth/Cert Specialty Diagnoses / Procedures Referred By Veronica t Referred To Contact Diagnoses Hypertrophy of breast Procedures PRO REDUCTION OF LARGE BREAST PRO EXCISE EXCESS SKIN TISSUE, ABDOMEN PRO SUCT SARAH LIPECTOMY, TRUNK [address] BILAT [id number] ALSO BILAT [id number] Referral ID Status Reason Start Date Expiration Date Visits Re quested Visits Authorized [id number] 1 1 Encounter Details Date Type Department Care Team (Late st Contact Info) Description 06/14/2015 4:01 PM EST Anesthesia Event [place] [address] Sunita [place] MD [facility] [place] [address] Sergey Munoz CRNA [facility] [place] [address] Anesthesia Record Procedure Summary Procedure Name Responsible [...] 1245; metacarpal vein left (top of hand); ceje-tdq-pgwvlw catheter system; 18 gauge; BSmithRN; intradermal injection; [...] [place] MD - 06/15/2015 12:23 PM EST [facility] Department of Anesthesiology Post-procedure Note Patient: Yessenia Luong Procedure Summary Date Anesthesia Start Anesthesia Stop Room / Location 06/14/15 1601 1951 [facility] MAIN OR Procedure Diagnosis Surgeon Responsible [...] Vaginal prolapse repair 04/11/2007 Dr. Castaneda, at [facility] ??? section 1979, 1981 Complciated by [...] consented to blood products. Plan discussed with MAGISTRATE JUDGE. PAT Staff Note documented in this encounter Plan of Treatment Upcoming Encounters Date Type Department Care Team (Late st Contact Info) Description 03/13/2024 9:45 AM EDT Office Visit Dermatology at [place] [address] [place] [address] Emiliano Salinas MD [address], [place] [address] documented as of this encounter Visit Diagnoses [...] mg documented in this encounter Care Teams Gas Pumping Station Supervisor Relationship Specialty Start Date End Date Chantell Sharma APRN PCP - General 07/09/13 05/09/16 documented as of this encounter
--- OUTSIDE RECORDS SUMMARY | 2024-02-20 13:40 | XMS_ITS | Encounter Summary ---
Author Organization [facility] [place] [address] Care Team Providers Care Press Helper Name Role Phone Juan Smith MD Primary Care Provider [phone] Reason for Visit * Reason Comments Procedure Encounter Details Date Type Department Care Team (Late st Contact Info) Description 03/12/2019 3:30 PM EDT Office Visit Dermatology at [facility] [address] [place] [address] Vern Salmeron MD [facility] [address] [place] [address] Encounter for cosmetic procedure Social History Tobacco [...] - 03/12/2019 3:30 PM EDT Yessenia Luong [id number] 03/12/2019 Provider: Raymundo Salmeron M.D. ([id number]) Chief Problem: 1. Rosacea & Telangiectasias 2. [...] 9:45 AM EDT Office Visit Dermatology at [place] [address] [facility] [place] [address] Emiliano Salinas MD [address], [place] [address] documented as of this encounter Visit Diagnoses Diagnosis Encounter for cosmetic procedure documented in this encounter Care Teams Press Helper Relationship Specialty Start Date End Date Juan Smith MD PCP - General Family Medicine 05/10/16 09/02/21 documented as of this encounter
--- OUTSIDE RECORDS SUMMARY | 2024-02-20 13:40 | XMS_ITS | Encounter Summary ---
Author Organization [facility]eter [facility] [place] [address] Care Team Providers Care Calculus Tutor Name Role Phone Sharma Chantellrebecca Lester APRN Primary Care Provider [phone] Reason for Visit * Reason Comments Follow Up Surgery s/p bbr and abdomino plasty/liposuction 06/14/15 Encounter Details Date Type Department Care Team (Latest Contact Info) Description 07/29/2015 2:15 PM EST Office [place] [address] Carlee Marvin MD [facility] [place] [address] Status post bilateral breast reduction; Status post [...] 9:45 AM EDT Office Visit Dermatology at [place] [address] [place] [address] Emiliano Salinas MD [address], [place]AKAR[place] [address] documented as of this encounter Visit Diagnoses Diagnosis Status post bilateral breast reduction Other postprocedural status Status post abdominoplasty Other postprocedural status documented in this encounter Care Teams Calculus Tutor Relationship Specialty Start Date End Date Chantell Sharma APRN PCP - General 07/09/13 05/09/16 documented as of this encounter
--- OUTSIDE RECORDS SUMMARY | 2024-02-20 13:40 | XMS_ITS | Encounter Summary ---
Author Organization [facility] [place] [address] Care Team Providers Care Events Associate Name Role Phone Chantell Sharma APRN Primary Care Provider [phone] Reason for Visit * Reason Comments Follow Up Surgery s/p bbr and abdomino plasty/liposuction dos 06/14/14, drain removal Encounter Details Date Type Department Care Team (Latest Contact Info) Description 06/23/2015 9:00 AM EST Clinical [place] [address] Mery Dimas ASSEMBLER TRACTOR [facility] [place] [address] Surgery follow-up Social History Tobacco Use Types [...] clinic with any questions or concerns @ [phone] Saturday through Saturday from 8. On weekends, nights, or holidays, call the Main Hospital number @ [phone] and ask for the Plastic Surgeon air conditioning specialist. Signs of Infection : A temperature over [...] symptoms please call our nurse's line at [phone] M - F 8 documented in this [...] 9:45 AM EDT Office Visit Dermatology at [address] [place] [address] Emiliano Salinas MD [address], [place] [address] documented as of this encounter Visit Diagnoses Diagnosis Surgery follow-up Follow-up examination, following unspecified surgery documented in this encounter Care Teams Events Associate Relationship Specialty Start Date End Date Chantell Sharma APRN PCP - General 07/09/13 05/09/16 documented as of this encounter
--- OUTSIDE RECORDS SUMMARY | 2024-02-20 13:40 | XMS_ITS | Encounter Summary ---
Author Organization [facility] Pieter [facility] [place] [address] Care Team Providers Care Car Refinisher Name Role Phone Juan Smith MD Primary Care Provider [phone] Reason for Referral * Diagnostic Test (Routine) - Closed Specialty Diagnoses / Procedures Referred By Contac t Referred To Contact Radiology Diagnoses Chest pain, unspecified type SOB (shortness of breath) Procedures NM Pharmacologic Stress CT Component Tory Montalvo MD [facility] [place] [address] [place] [address] Referral ID Status Reason Start Date Expiration Date V isits Requested Visits Authorized [id number] Closed Specialty Service Requested 02/13/2019 02/13/2020 1 1 Reason for Visit * Diagnostic Test (Routine) - Closed Specialty Diagnoses / Procedures Referred By Contac t Referred To Contact Radiology Diagnoses Chest pain, unspecified type SOB (shortness of breath) Procedures NM Pharmacologic Stress CT Component Tory Montalvo MD [facility] [place] [address] [place] [address] Referral ID Status Reason Start Date Expiration Date V isits Requested Visits Authorized [id number] Closed Specialty Service Requested 02/13/2019 02/13/2020 1 1 Encounter Details Date Type Department Care Team (Latest Contact Info) Description 03/12/2019 9:24 AM EDT Hospital Encounter [place] [address] Tory Montalvo MD Chest pain, unspecified type; [...] azelastine (ASTELIN) 137 mcg (0.1 %) Aerosol, [place] 0 11/06/2017 0 09/03/2022 ASCORBATE CALCIUM (VITAMIN C ORAL) Take by mouth. 09/03/2022 ERGOCALCIFEROL, VITAMIN D2, (VITAMIN D ORAL) Take by mouth. multivitamin (THERAGRAN) tablet Take 1 tablet by mouth daily. 09/03/2022 fexofenadine (EVANGELINA) 180 mg tablet 180 mg, PO, Once daily 08/28/2010 09/03/2022 Mometasone (NASONEX) 50 mcg/Actuation [place] 2 [place](s) each nostril, Nasal, Twice daily 08/28/2010 09/03/2022 documented as of this encounter Plan of Treatment Upcoming Encounters Date Type Department Care Team (Late st Contact Info) Description 03/13/2024 9:45 AM EDT Office Visit Dermatology at [place] [address] [facility] [place] [address] Emiliano Salinas MD [address], [place] [address] documented as of this encounter Procedures Procedure [...] breath documented in this encounter Care Teams Car Refinisher Relationship Specialty Start Date End Date Juan Smith MD PCP - General Family Medicine 05/10/16 09/02/21 documented as of this encounter
--- OUTSIDE RECORDS SUMMARY | 2024-02-20 13:40 | XMS_ITS | Encounter Summary ---
Author Organization [facility] Address [facility] [place] [address] Care Team Providers Care Sewing Machine Operator Semiautomatic Name Role Phone Juan Smith MD Primary Care Provider [phone] Reason for Visit * Reason Comments Laser Treatment Encounter Details Date Type Department Care Team (Late st Contact Info) Description 05/10/2016 1:30 PM EST Office Visit Dermatology at [facility] [address] [place] [address] Vern Salmeron MD [facility] [place] [address] Androgenic alopecia; Telangiectasia; Solar lentigo; Seborrheic keratosis [...] discomfort For further questions and concerns contact: [phone] Nurse message line [phone] Pita (Dr. Salmeron's Appointment Division Leader) In any case of emergency for weekends and off hours please contact [facility] main number and ask for ad trafficker senior electrical controls engineer at [phone] documented in this encounter Progress Notes * Vern Salmeron MD - 05/10/2016 1:30 PM EST Images from the original note were not included. Provider: Raymundo Salmeron M.D. ([id number]) Chief Problem: 1. Rosacea & Telangiectasias 2. [...] X 3 Sent to Sandra Perkins in [facility]. Follow up: Skin check [...] 9:45 AM EDT Office Visit Dermatology at [address] [address] Emiliano Salinas MD [address] [facility], [place] [address] documented as of this encounter Visit Diagnoses Diagnosis Androgenic alopecia Other alopecia Telangiectasia Other and unspecified capillary diseases Solar lentigo Other dyschromia Seborrheic keratosis Other seborrheic keratosis documented in this encounter Care Teams Sewing Machine Operator Semiautomatic Relationship Specialty Start Date End Date Juan Smith MD PCP - General Family Medicine 05/10/16 09/02/21 documented as of this encounter
--- OUTSIDE RECORDS SUMMARY | 2024-02-20 13:40 | XMS_ITS | Encounter Summary ---
Author Organization [facility] [place] [address] Care Team Providers Care Supervisor Electronics Assembly Name Role Phone Chantell Sharma APRN Primary Care Provider [phone] Reason for Visit * Reason Comments Follow Up Surgery BBR and abdominoplas ty 06/14/15 Encounter Details Date Type Department Care Team (Latest Contact Info) Description 02/06/2016 8:45 AM EDT Office [place] [address] Carlee Marvin MD [facility] [place] [address] Macromastia; Status post abdominoplasty Social History Tobacco [...] Summer 2016 Time allotted: 60 mins CPT :79140 x 2 Follow up: 1 week with [...] 9:45 AM EDT Office Visit Dermatology at [place] [address] [place] [address] Emiliano Salinas MD [address] [facility], [place] [address] documented as of this encounter Visit Diagnoses Diagnosis Macromastia Hypertrophy of breast Status post abdominoplasty Other postprocedural status documented in this encounter Care Teams Supervisor Electronics Assembly Relationship Specialty Start Date End Date Chantell Sharma APRN PCP - General 07/09/13 05/09/16 documented as of this encounter
--- OUTSIDE RECORDS SUMMARY | 2024-02-20 13:41 | XMS_ITS | Encounter Summary ---
Author Organization [facility] Address [facility] [place] [address] Care Team Providers Care Director Of Student Services Name Role Phone Gareth Cunningham MD Primary Care Provider + Reason for Visit * Reason Comments Establish Care incont s/p repair Encounter Details Date Type Department Care Team (Late st Contact Info) Description 11/22/2011 9:15 AM EDT Office Visit Obstetrics [place] [address] Juan Alberto Harrell MD [facility] DR [place] [address] Urinary incontinence (Primary Dx) Discharge Disposition: Home [...] Pelvic Medicine and Reconstructive Surgery @ [facility] Patient Name: Yessenia Luong Patient Primary Care [...] smear: S/p hysterectomy Last mammogram: Annually in [facility] Colonoscopy: Up to date Bone density: Up to date Past Medical History Diagnosis Date ??? 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 Rosacea 04/24/2011 ??? THERESA (obstructive sleep apnea) 11/21/2011 Past Surgical History Procedure Date ??? Vaginal prolapse repair 04/11/2007 Dr. Castaneda, at [facility] ??? section 1979, 1981 ??? Miguel [...] MAGNESIUM ORAL) ??? Mometasone (NASONEX) 50 mcg/Actuation [place] 2 [place](s) each nostril, Nasal, Twice daily ??? 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 Family History Problem Relation Age of [...] test (empty supine): negative External Genitalia: Vulva, Canute's and Bartholin glands normal, urethra without tenderness [...] 9:45 AM EDT Office Visit Dermatology at [place] [address] [facility] [place] [address] Emiliano Salinas MD [address], [place] [address] documented as of this encounter Procedures Procedure Name Priority Date/Time Associated Diagnosis Comments BLADDER SCANNER Routine 11/22/2011 Urinary incontinence POCT URINE DIPSTICK Routine 11/22/2011 Urinary incontinence documented in this encounter Results * Bladder Scanner (11/22/2011) Scan 6 Juan Alberto Harrell MD URO PROC W/O RFL ORD ERABLES * POCT urine dipstick (11/22/2011) Pathologist [facility] POC Sp [place] 1.01 1.002 - 1.030 POC pH, UA [...] incontinence documented in this encounter Care Teams Director Of Student Services Relationship Specialty Start Date End Date Gareth Cunningham MD [address] [place] [address] PCP - General 04/24/11 07/08/13 documented as of this encounter
--- OUTSIDE RECORDS SUMMARY | 2024-02-20 13:41 | XMS_ITS | Encounter Summary ---
Author Organization [facility] [place] [address] Care Team Providers Care Data Software Engineer Name Role Phone Gareth Gramajo MD Primary Care Provider + Encounter Details Date Type Department Care Team (Late st Contact Info) Description 12/10/2011 Notes Only Obstetrics [place] [address] Lien Patel RN Social History Tobacco Use [...] 9:45 AM EDT Office Visit Dermatology at [place] [address] [place] [address] Emiliano Salinas MD [address] [facility], [place] [address] documented as of this encounter Visit Diagnoses Not on filedocumented in this encounter Care Teams Data Software Engineer Relationship Specialty Start Date End Date Gareth Gramajo MD [address] [place] [address] PCP - General 04/24/11 07/08/13 documented as of this encounter
--- OUTSIDE RECORDS SUMMARY | 2024-02-20 13:41 | XMS_ITS | Encounter Summary ---
Author Organization [facility] Address [facility] [place] [address] Care Team Providers Care Pneudraulic Systems Mechanic Name Role Phone Gareth Cunningham MD Primary Care Provider + Reason for Visit * Reason Comments Obstructive Sleep Apnea Encounter Details Date Type Department Care Team (Late st Contact Info) Description 07/12/2011 8:35 AM EST [place] [address] Sunita Mcknight MD [facility] [place] [address] THERESA (obstructive sleep apnea) (Primary Dx) Social [...] shifts in position Aerophagia: None Daytime Symptoms: [place]: not done Upon Awakening: unrefreshed, feels groggy. [...] Disp: , Rfl: ;Mometasone (NASONEX) 50 mcg/Actuation [place], 2 [place](s) each nostril, Nasal, Twice daily, Disp: , [...] drowsy dont drive, if drowsy while driving lung puller and take a nap. 4. Dental [...] 9:45 AM EDT Office Visit Dermatology at [place] [address] [address] Emiliano Salinas MD [address], [place] [address] documented as of this encounter Visit Diagnoses Diagnosis THERESA (obstructive sleep apnea)- Primary Obstructive sleep apnea (adult) (pediatric) documented in this encounter Care Teams Pneudraulic Systems Mechanic Relationship Specialty Start Date End Date Gareth Cunningham MD [address] [place] [address] PCP - General 04/24/11 07/08/13 documented as of this encounter
--- OUTSIDE RECORDS SUMMARY | 2024-02-20 13:41 | XMS_ITS | Encounter Summary ---
[place] [address] Care Team Providers Care Shelver Name Role Phone Franca Charles MD Primary Care Provider [phone] Reason for Visit * Reason Onset Date Comments Other 12/28/2010 sick returning [place] Encounter Details Date Type Department Care Team (Late st Contact Info) Description 12/28/2010 Telephone [place] [id number] Danika Chin RN Other (sick returning traveler) [...] of cipro for diarrhea after trip to [place]. See note on 12/25/2010. She no longer has diarrhea, now reporting constipation and stomach cramping. Remains afebrile; describes extreme fatigue. Contacted [facility] lab for results of stool testing; giardia [...] 9:45 AM EDT Office Visit Dermatology at [place] [address] [place] [address] Emiliano Salinas MD [address], MANIND[place] [address] documented as of this encounter Visit Diagnoses Not on filedocumented in this encounter Care Teams Shelver Relationship Specialty Start Date End Date Franca Charles MD [address] [place] [address] PCP - General 05/02/10 01/30/11 documented as of this encounter
--- OUTSIDE RECORDS SUMMARY | 2024-02-20 13:41 | XMS_ITS | Encounter Summary ---
Author Organization [facility] [place] [address] Care Team Providers Care Receivable Clerk Name Role Phone Chantell Sharma APRN Primary Care Provider [phone] Reason for Visit * Reason Comments Allergic Rhinitis Encounter Details Date Type Department Care Team (Late st Contact Info) Description 07/09/2013 1:45 PM EST [place] [address] Yashira Abdullahi MD [facility] [address] ALLERGY [place] [address] Allergic rhinoconjunctivitis, bilateral (Primary Dx); Mild intermittent [...] encasings, pillow and mattress ( ie From [employer]; [employer], [employer], [employer], [employer], [employer]) 2. Wash bedding in hot water (no [...] weekly at [facility] She receives two shots per week. She [...] MAGNESIUM ORAL) ??? Mometasone (NASONEX) 50 mcg/Actuation [place] 2 [place](s) each nostril, Nasal, Twice daily ??? albuterol (VENTOLIN HFA) 90 mcg/Actuation inhaler 1-2 puffs, Inh, Q4-6H PRN Past Medical and Social History: Past Medical History Diagnosis Date ??? 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 Rosacea 04/24/2011 ??? THERESA (obstructive sleep apnea) 11/21/2011 ??? Urinary incontinence, urge 01/08/2012 Past Surgical History Procedure Date ??? Vaginal prolapse repair 04/11/2007 Dr. Castaneda, at [facility] ??? section 1979, 1981 ??? 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 [...] 9:45 AM EDT Office Visit Dermatology at [place] [address] [place] [address] Emiliano Salinas MD [address], BAKARI [place] [address] documented as of this encounter Procedures Procedure [...] ng/mL CERNER MILLENNIUM Comment: Test Performed by: [place] [address] Public Relations: Bruce Abdalla III, M.D. Blood specimen (specimen) 07/09/2013 3:40 PM EST 07/10/2013 9:44 AM EST Narrative Resulting Agency Comment Spec In Lab Yashira Abdullahi MD CHEMISTRY ORDERABLES Performing Organization Address [place] Co de Phone Number [facility]IND[facility] * Venom, Yellow Jacket IgE (07/09/2013 3:40 PM EST) Yellow Jacket IgE 22.8 kU/L CE RNER MILLENNIUM Comment: Class 4 (Strongly Positive 17.5-49.9) Test Performed by: [place] [address] Public Relations: Bruce Abdalla III, M.D. Blood specimen (specimen) 07/09/2013 3:40 PM EST 07/10/2013 8:40 AM EST Narrative Resulting Agency Comment Spec In Lab Yashira Abdullahi MD IMMUNOLOGY ORDERABLE S Performing Organization Address City/[facility]/ZIP Co de Phone Number [facility] * Venom, Hornet, Yellow-Faced IgE (07/09/2013 3:40 PM EST) [place] Hornet Venom IgE 6.10 kU/L CERNER MILLENNIUM Comment: Class 3 (Positive 3.50-17.4) Test Performed by: [place] [address] Public Relations: Bruce Abdalla III, M.D. Blood specimen (specimen) 07/09/2013 3:40 PM EST 07/10/2013 8:40 AM EST Narrative Resulting Agency Comment Spec In Lab Yashira Abdullahi MD IMMUNOLOGY ORDERABLE S Performing Organization Address City/[facility] Co de Phone Number CERNER MILLENNIUM * Venom, White Faced Hornet IgE (07/09/2013 3:40 PM EST) [place] Hornet Venom IgE 11.0 kU/L CERNER MILLENNIUM Comment: Class 3 (Positive 3.50-17.4) Test Performed by: [place] [address] Public Relations: Bruce Abdalla III, M.D. Blood specimen (specimen) 07/09/2013 3:40 PM EST 07/10/2013 8:40 AM EST Narrative Resulting Agency Comment Spec In Lab Yashira Abdullahi MD IMMUNOLOGY ORDERABLE S Performing Organization Address [place]/[facility] de Phone Number CERNER MILLENNIUM * Venom, Wasp IgE (07/09/2013 3:40 PM EST) Wasp IgE 22.5 kU/L CERNER MILLENNIUM Comment: Class 4 (Strongly Positive 17.5-49.9) Test Performed by: [place] [address] Public Relations: Bruce Abdalla III, M.D. Blood specimen (specimen) 07/09/2013 3:40 PM EST 07/10/2013 8:40 AM EST Narrative Resulting Agency Comment Spec In Lab Yashira Abdullahi MD IMMUNOLOGY ORDERABLE S Performing Organization Address City/[facility] de Phone Number CERNER MILLENNIUM * Venom, Honeybee IgE (07/09/2013 3:40 PM EST) [place]bee Venom IgE 1.31 kU/L CERNER MILLENNIUM Comment: Class 2 (Positive 0.70-3.49) Test Performed by: [place] [address] Public Relations: Bruce Abdalla III, M.D. Blood specimen (specimen) 07/09/2013 3:40 PM EST 07/10/2013 8:40 AM EST Narrative Resulting Agency Comment Spec In Lab Yashira Abdullahi MD IMMUNOLOGY ORDERABLE S Performing Organization Address City/State/[facility] Co de Phone Number [facility] documented in this encounter Visit Diagnoses Diagnosis Allergic rhinoconjunctivitis, bilateral- Primary Mild intermittent asthma, uncomplicated Unspecified asthma Environmental allergies Allergic rhinitis, cause unspecified Allergy to insect stings Allergy, unspecified not elsewhere classified Chronic urticaria Other specified urticaria documented in this encounter Care Teams Receivable Clerk Relationship Specialty Start Date End Date Chantell Sharma APRN PCP - General 07/09/13 05/09/16 documented as of this encounter
--- OUTSIDE RECORDS SUMMARY | 2024-02-20 13:41 | XMS_ITS | Encounter Summary ---
Author Organization [facility] [place] [address] Care Team Providers Care Wet Press Tender Name Role Phone Gareth Gramajo MD Primary Care Provider + Reason for Visit * Reason Comments Procedure UDS Encounter Details Date Type Department Care Team (Latest Contact Info) Description 01/08/2012 8:15 AM EDT Procedure visit Obstetrics [place] [address] Juan Alberto Harrell MD [facility] [address] OBSTETRICS [place] [address] Urinary incontinence, urge (Primary Dx) Discharge Disposition: [...] Female Pelvic Medicine and Reconstructive Surgery @ [facility] Urodynamic Procedure Note Patient name: Yessenia Luong [...] CYSTOMETROGRAM: Filling was performed via a 7 Welsh T-DOC catheter in the sitting position at a rate of 50cc/min. A 7 Welsh T-DOC catheter was placed in the rectum [...] 9:45 AM EDT Office Visit Dermatology at [place] [address] [place] [address] Emiliano Salinas MD [address] [facility], [place] [address] documented as of this encounter Visit Diagnoses Diagnosis Urinary incontinence, urge- Primary Urge incontinence documented in this encounter Care Teams Wet Press Tender Relationship Specialty Start Date End Date Gareth Gramajo MD [address] [place] [address] PCP - General 04/24/11 07/08/13 documented as of this encounter
--- OUTSIDE RECORDS SUMMARY | 2024-02-20 13:41 | XMS_ITS | Encounter Summary ---
[place] [address] Care Team Providers Care Offbearer Name Role Phone Gareth Gramajo MD Primary Care Provider + Encounter Details Date Type Department Care Team (Late st Contact Info) Description 01/10/2012 Orders Only [place] [phone] Lien Patel, RN Social History Tobacco Use [...] 9:45 AM EDT Office Visit Dermatology at [place] [address] [facility] [place] [address] Emiliano Salinas MD [address], MANINDER [place] [address] documented as of this encounter Visit Diagnoses Not on filedocumented in this encounter Care Teams Offbearer Relationship Specialty Start Date End Date Gareth Gramajo MD [address] [place] [address] PCP - General 04/24/11 07/08/13 documented as of this encounter
--- OUTSIDE RECORDS SUMMARY | 2024-02-20 13:41 | XMS_ITS | Patient Health Record ---
Author Organization [facility] Address [address] [place] [address] Care Team Providers Care Network Intern Name Role Phone Sukhjinder Stewart Unavailable [phone] JEFFREY OCONNELL MD Unavailable Unavailable REASON FOR [...] joint of right hand (M18.11) Active confirmed [id number] PLAN OF TREATMENT No Information Insurance Providers Payer Name Payer Address Payer Phone Subscriber Number Group Number Insured Name Patient Relationship to Insured Coverage Start Date Coverage End Date MEDICARE [address], [place] [id number] SUNNY ESPARZA Self - patient is the insured -[facility] [address] [place] [address] [phone] SUNNY ESPARZA Self - patient is the insured SELF [place]Y [place] [address] [place] [address] SUNNY ESPARZA Self - patient is the insured MEDICAL (GENERAL) HISTORY Medical History History ICD Code Biceps tendinitis, right Muscle cramps GERD Surgical History Surgery Date(Month/Year)
--- OUTSIDE RECORDS SUMMARY | 2024-02-20 13:41 | XMS_ITS | Encounter Summary ---
Author Organization [facility] [place] [address] Care Team Providers Care Certified Mortician Name Role Phone Gareth Gramajo MD Primary Care Provider + Encounter Details Date Type Department Care Team (Late st Contact Info) Description 01/24/2012 Orders Only Obstetrics [place] [phone] Lien Patel RN Urge incontinence (Primary Dx) [...] EDT Office Visit Dermatology at [place] [address] [place] [address] Emiliano Salinas MD [address], [place] [address] documented as of this encounter Visit Diagnoses Diagnosis Urge incontinence- Primary documented in this encounter Care Teams Certified Mortician Relationship Specialty Start Date End Date Gareth Gramajo MD [address] [place] [address] PCP - General 04/24/11 07/08/13 documented as of this encounter
--- OUTSIDE RECORDS SUMMARY | 2024-02-20 13:41 | XMS_ITS | Encounter Summary ---
Author Organization [facility] [place] [address] Care Team Providers Care Sample Grader Name Role Phone Sharma Chantellrebecca Lester APRN Primary Care Provider [phone] Reason for Visit * Reason Comments Skin Check Encounter Details Date Type Department Care Team (Late st Contact Info) Description 08/07/2013 10:15 AM EST Office Visit Dermatology at [address] [address] Emiliano Salinas MD [address] [facility], MANINDER A DERMATOLOGY [place], [place] [id number] Solar lentigo (Primary Dx); Female pattern alopecia [...] p.r.n. refills. This was sent to her [facility] pharmacy in [facility]. She knows this will be an [id number] expense. 3. Xerosis. a. I recommended that [...] 9:45 AM EDT Office Visit Dermatology at [place] [address] [place] [address] Emiliano Salinas MD [address] [facility] [address], [place] [address] documented as of this encounter Visit Diagnoses Diagnosis Solar lentigo- Primary Other dyschromia Female pattern alopecia Alopecia, unspecified documented in this encounter Care Teams Sample Grader Relationship Specialty Start Date End Date Chantell Sharma APRN PCP - General 07/09/13 05/09/16 documented as of this encounter
--- OUTSIDE RECORDS SUMMARY | 2024-02-20 13:41 | XMS_ITS | Encounter Summary ---
Author Organization [facility] [place] [address] Care Team Providers Care Blue Leather Setter Name Role Phone Franca Charles MD Primary Care Provider [phone] Encounter Details Date Type Department Care Team (Late st Contact Info) Description 12/25/2010 Orders [place] [address] Mariana [place] MD [facility] [place] [address] History of foreign travel (Primary Dx) Social [...] 60 y.o. female. History of travel to [place] on 11/27/2010 for 3 weeks while traveling [...] Dr. Hernandez; Pt agrees to go to [facility] for stool studies to include giardia, crypto, O&P, and stool cultures. Will e-fax another script for Cipro 500 mg BID for three days to [facility] in [facility]. Pt. States understanding she needs [...] 9:45 AM EDT Office Visit Dermatology at [place] [address] [facility] [place] [address] Emiliano Salinas MD [address], [place] [address] documented as of this encounter Visit Diagnoses Diagnosis History of foreign travel- Primary Other specified conditions influencing health status documented in this encounter Care Teams Blue Leather Setter Relationship Specialty Start Date End Date Franca Charles MD [address] [place] [address] PCP - General 05/02/10 01/30/11 documented as of this encounter
--- OUTSIDE RECORDS SUMMARY | 2024-02-20 13:41 | XMS_ITS | Encounter Summary ---
Author Organization [facility] [place] [address] Care Team Providers Care Manager Placement Name Role Phone Gareth Gramajo MD Primary Care Provider + Reason for Visit * Reason Comments Skin Check Encounter Details Date Type Department Care Team (Late st Contact Info) Description 04/24/2011 8:45 AM EST Office Visit Dermatology [address] [facility] [address] [facility] [address] [place], [place] [id number] Emiliano Salinas MD [address], [place] [address] Androgenetic alopecia (Primary Dx); Rosacea; Solar lentigo [...] information for Aide Hassan at [employer] in [place] to help Yessenia learn of new techniques to mask her hair thinning. Mild solar lentigos, mild photo aging. a. At patient request she was given refills for Tretinoin 0.025% Cream applying this on a q. h.s. basis one-half hour after washing, 45gm dispensed with p.r.n. refills. This was called into [facility] in [facility]. Benign skin examination. a. Patient reassured about benign skin examination. b. RTC p.r.n. Rosacea. a. Quiescent. documented in this encounter Plan of Treatment Upcoming Encounters Date Type Department Care Team (Late st Contact Info) Description 03/13/2024 9:45 AM EDT Office Visit Dermatology at [place] [address] [place] [address] Emiliano Salinas MD [address], [place] [address] documented as of this encounter Visit Diagnoses Diagnosis Androgenetic alopecia- Primary Other alopecia Rosacea Solar lentigo Other dyschromia documented in this encounter Care Teams Manager Placement Relationship Specialty Start Date End Date Gareth Gramajo MD [address] [place] [address] PCP - General 04/24/11 07/08/13 documented as of this encounter
--- OUTSIDE RECORDS SUMMARY | 2024-02-20 13:41 | XMS_ITS | Encounter Summary ---
Author Organization [facility] [place] [address] Care Team Providers Care Replenisher Name Role Phone Franca Charles MD Primary Care Provider [phone] Encounter Details Date Type Department Care Team (Late st Contact Info) Description 08/28/2010 11:00 AM EDT [place] [address] Vern Salmeron MD [facility] [address] [place] [address] Discharge Disposition: Home Social History Tobacco Use [...] 9:45 AM EDT Office Visit Dermatology at [place] [address] [place] [address] Emiliano Salinas MD [address], [place] [address] documented as of this encounter Visit Diagnoses Not on filedocumented in this encounter Care Teams Replenisher Relationship Specialty Start Date End Date Franca Charles MD [address] [place] [address] PCP - General 05/02/10 01/30/11 documented as of this encounter
--- OUTSIDE RECORDS SUMMARY | 2024-02-20 13:41 | XMS_ITS | Encounter Summary ---
Author Organization [facility] [place] [address] Care Team Providers Care Middle School Science Teacher Name Role Phone Gareth Gramajo MD Primary Care Provider + Encounter Details Date Type Department Care Team (Late st Contact Info) Description 12/19/2011 Telephone Obstetrics [place] [phone] Tenzin Harrell MD [facility] OBSTETRICS [place] [address] Social History Tobacco Use Types Packs/Day Years [...] 9:45 AM EDT Office Visit Dermatology at [place] [address] [facility] [place] [address] Emiliano Salinas MD [address], [place]AR[place] [address] documented as of this encounter Visit Diagnoses Diagnosis Urinary incontinence, mixed- Primary Mixed incontinence urge and stress (male)(female) documented in this encounter Care Teams Middle School Science Teacher Relationship Specialty Start Date End Date Gareth Gramajo MD [address] [place] [address] PCP - General 04/24/11 07/08/13 documented as of this encounter
--- OUTSIDE RECORDS SUMMARY | 2024-02-20 13:41 | XMS_ITS | Encounter Summary ---
Author Organization [facility] [place] [address] Care Team Providers Care Flyer Maker Name Role Phone Franca Charles MD Primary Care Provider [phone] Encounter Details Date Type Department Care Team (Late st Contact Info) Description 07/17/2010 8:30 AM EST Follow-[place] [address] Gelacio Blevins MD [facility] [place] [address] Social History Tobacco Use Types Packs/Day Years [...] 9:45 AM EDT Office Visit Dermatology at [place] [address] [place] [address] Emiliano Salinas MD [address], [place]AR[place] [address] documented as of this encounter Visit Diagnoses Not on filedocumented in this encounter Care Teams Flyer Maker Relationship Specialty Start Date End Date Franca Charles MD [address] [place] [address] PCP - General 05/02/10 01/30/11 documented as of this encounter
--- OUTSIDE RECORDS SUMMARY | 2024-02-20 13:41 | XMS_ITS | Encounter Summary ---
Author Organization [facility] [place] [address] Care Team Providers Care Detention Worker Name Role Phone Franca Charles MD Primary Care Provider [phone] Encounter Details Date Type Department Care Team (Late st Contact Info) Description 08/28/2010 10:30 AM EDT Office [place] [address] Vern Salmeron MD [facility] [address] [place] [address] Discharge Disposition: Home Social History Tobacco Use [...] 9:45 AM EDT Office Visit Dermatology at [place] [address] [place] [address] Emiliano Salinas MD [address], [place] [address] documented as of this encounter Visit Diagnoses Not on filedocumented in this encounter Care Teams Detention Worker Relationship Specialty Start Date End Date Franca Charles MD [address] [place] [address] PCP - General 05/02/10 01/30/11 documented as of this encounter
--- OUTSIDE RECORDS SUMMARY | 2024-02-20 13:41 | XMS_ITS | Encounter Summary ---
[place] [address] Care Team Providers Care Rocket Scientist Name Role Phone Franca Charles MD Primary Care Provider [phone] Reason for Visit * Reason Comments Travel Consult Encounter Details Date Type Department Care Team (Late st Contact Info) Description 10/17/2010 2:00 PM EDT Office [place] [address] Danika Chin RN Travel foreign (Primary Dx); [...] countries (list from first to last): [place], [facility], [email or web address], [place] Departure date: 11/27/2010 Length of trip 3 [...] other STD's, TB and Health Insurance cove [employer]. Discussed food and water precautions and patient [...] or get this done through their primary personal caregiver. Patient advised to call travel clinic if [...] Discussed actions to take if exposure occurs [facility]. Meningococcal Yellow Fever Pneumococcal 09/15/2004 PPD Skin test ID ATTENDING I agree with this plan to prepare this patient for travel to [place]. documented in this encounter Plan of Treatment Upcoming Encounters Date Type Department Care Team (Late st Contact Info) Description 03/13/2024 9:45 AM EDT Office Visit Dermatology at [place] [address] [facility] [place] [address] Emiliano Salinas MD [address], [place] [address] documented as of this encounter Visit Diagnoses Diagnosis Travel foreign- Primary Other specified conditions influencing health status Foreign travel Other specified conditions influencing health status documented in this encounter Care Teams Rocket Scientist Relationship Specialty Start Date End Date Franca Charles MD [address] [place] [address] PCP - General 05/02/10 01/30/11 documented as of this encounter
--- OUTSIDE RECORDS SUMMARY | 2024-02-20 13:41 | XMS_ITS | Encounter Summary ---
Author Organization [facility] [place] [address] Care Team Providers Care Marketing Systems Manager Name Role Phone Chantell Sharma APRN Primary Care Provider [phone] Reason for Visit * Reason Comments Other Encounter Details Date Type Department Care Team (Late st Contact Info) Description 08/07/2013 [place] [phone] Lea Abdullahi MD [facility] DR ALLERGY [place] [address] Social History Tobacco Use Types Packs/Day Years [...] you get info on this patient from [place] yet in the mail? documented in this encounter Plan of Treatment Upcoming Encounters Date Type Department Care Team (Late st Contact Info) Description 03/13/2024 9:45 AM EDT Office Visit Dermatology at [place] [address] [place] [address] Emiliano Salinas MD [address], [place] [address] documented as of this encounter Visit Diagnoses Not on filedocumented in this encounter Care Teams Marketing Systems Manager Relationship Specialty Start Date End Date Chantell Sharma APRN PCP - General 07/09/13 05/09/16 documented as of this encounter
--- OUTSIDE RECORDS SUMMARY | 2024-02-20 13:41 | XMS_ITS | Encounter Summary ---
Author Organization [facility] [place] [address] Care Team Providers Care Poultry Dresser Name Role Phone Franca Charles MD Primary Care Provider [phone] Encounter Details Date Type Department Care Team (Late st Contact Info) Description 07/09/2010 8:00 PM EST Procedure [place] [address] Leisa Lewis MD [facility] [place] [address] Social History Tobacco Use Types Packs/Day Years [...] 9:45 AM EDT Office Visit Dermatology at [place] [address] [place] [address] Emiliano Salinas MD [address], [place]AKAR[place] [address] documented as of this encounter Visit Diagnoses Not on filedocumented in this encounter Care Teams Poultry Dresser Relationship Specialty Start Date End Date Franca Charles MD [address] [place] [address] PCP - General 05/02/10 01/30/11 documented as of this encounter
--- OUTSIDE RECORDS SUMMARY | 2024-02-20 13:41 | XMS_ITS | Encounter Summary ---
Author Organization [facility] [place] [address] Care Team Providers Care Fpga Engineer Name Role Phone Gareth Gramajo MD Primary Care Provider + Encounter Details Date Type Department Care Team (Late st Contact Info) Description 07/26/2011 Orders [place] [address] Sunita Mcknight MD [facility] [place] [address] THERESA (obstructive sleep apnea) (Primary Dx) Social [...] 9:45 AM EDT Office Visit Dermatology at [place] [address] [place] [address] Emiliano Salinas MD [address], [place] [address] documented as of this encounter Visit Diagnoses Diagnosis THERESA (obstructive sleep apnea)- Primary Obstructive sleep apnea (adult) (pediatric) documented in this encounter Care Teams Fpga Engineer Relationship Specialty Start Date End Date Gareth Gramajo MD [address] [place] [address] PCP - General 04/24/11 07/08/13 documented as of this encounter
--- OUTSIDE RECORDS SUMMARY | 2024-02-20 13:41 | XMS_ITS | Encounter Summary ---
[place] [address] Care Team Providers Care Nurse Specialist Name Role Phone Franca Charles MD Primary Care Provider [phone] Reason for Visit * Reason Onset Date Comments Other 01/01/2011 travel follow-up Encounter Details Date Type Department Care Team (Late st Contact Info) Description 01/01/2011 [place]phone [place] [phone] Danika Chin RN Other (travel follow-up) Social [...] fatigue, sleeping since back from trip to [place]; headache, lower stomach pain with constipation, bad breath; denies fever or other symptoms Did not seek care from PCP as instructed during phone conversation of 12/28/2010. Calling today to request another course of Cipro. A&P Yessenia traveled to [place] 11/27/2010 for three weeks, returning with diarrhea, [...] EDT Office Visit Dermatology at [place] [address] [facility] [place] [address] Emiliano Salinas MD [address], [place] [address] documented as of this encounter Visit Diagnoses Not on filedocumented in this encounter Care Teams Nurse Specialist Relationship Specialty Start Date End Date Franca Charles MD [address] [place] [address] PCP - General 05/02/10 01/30/11 documented as of this encounter
--- OUTSIDE RECORDS SUMMARY | 2024-02-20 13:41 | XMS_ITS | Encounter Summary ---
Author Organization [facility] [place] [address] Care Team Providers Care Disciplinary Hearing Officer Name Role Phone Franca Charles MD Primary Care Provider [phone] Reason for Visit * Reason Onset Date Comments Anxiety 09/25/2010 Encounter Details Date Type Department Care Team (Late st Contact Info) Description 09/25/2010 Telephone [place] [address] Liam Lee MD [facility] [place] [place] [address] Anxiety Social History Tobacco Use Types Packs/Day [...] reviewed her compliance card data download from [employer] for dates of 08/10/10 to 09/20/10, which [...] 9:45 AM EDT Office Visit Dermatology at [place] [address] [place] [address] Emiliano Salinas MD [address], [place]AR[place] [address] documented as of this encounter Visit Diagnoses Not on filedocumented in this encounter Care Teams Disciplinary Hearing Officer Relationship Specialty Start Date End Date Franca Charles MD [address] [place] [address] PCP - General 05/02/10 01/30/11 documented as of this encounter
--- OUTSIDE RECORDS SUMMARY | 2024-02-20 13:41 | XMS_ITS | Encounter Summary ---
Author Organization [facility] [place] [address] Care Team Providers Care Vb Net Programmer Name Role Phone Franca Charles MD Primary Care Provider [phone] Encounter Details Date Type Department Care Team (Late st Contact Info) Description 06/29/2010 12:40 PM EST [place] [address] Liam Lee MD [facility] [place] [address] Social History Tobacco Use Types Packs/Day Years [...] 9:45 AM EDT Office Visit Dermatology at [place] [address] [place] [address] Emiliano Salinas MD [address], MANINDER [place] [address] documented as of this encounter Visit Diagnoses Not on filedocumented in this encounter Care Teams Vb Net Programmer Relationship Specialty Start Date End Date Franca Charles MD [address] [place] [address] PCP - General 05/02/10 01/30/11 documented as of this encounter
--- OUTSIDE RECORDS SUMMARY | 2024-02-20 13:41 | XMS_ITS | Encounter Summary ---
Author Organization [facility] [place] [address] Care Team Providers Care Law Professor Name Role Phone Unavailable Primary Care Provider Unavailabl e Encounter Details Date Type Department Care Team (Late st Contact Info) Description 04/19/2010 3:15 PM EST Office Visit Dermatology [address] [place] [address] [address] [place] [address] Emiliano Salinas MD [address] [facility] [address] Social History Tobacco Use Types Packs/Day Years [...] AM EDT Office Visit Dermatology at [place] 580 [place] [address] Emiliano Salinas MD [address] [facility], [place] [address] documented as of this encounter Visit Diagnoses Not on filedocumented in this encounter
--- OUTSIDE RECORDS SUMMARY | 2024-02-20 13:41 | XMS_ITS | Encounter Summary ---
Author Organization [facility] [address] Care Team Providers Care Securities And Real Estate Director Name Role Phone Franca Charles MD Primary Care Provider [phone] Encounter Details Date Type Department Care Team (Late st Contact Info) Description 07/10/2010 8:30 AM EST Follow-[place] [address] Leisa Lewis MD [facility] [place] [address] Social History Tobacco Use Types Packs/Day Years [...] 9:45 AM EDT Office Visit Dermatology at [place] [address] [place] [address] Emiliano Salinas MD [address], [place] [address] documented as of this encounter Visit Diagnoses Not on filedocumented in this encounter Care Teams Securities And Real Estate Director Relationship Specialty Start Date End Date Franca Charles MD [address] [place] [address] PCP - General 05/02/10 01/30/11 documented as of this encounter
--- OUTSIDE RECORDS SUMMARY | 2024-02-20 13:41 | XMS_ITS | Encounter Summary ---
Author Organization [facility] [place] [address] Care Team Providers Care Office Machine Service Supervisor Name Role Phone Franca Charles MD Primary Care Provider [phone] Reason for Visit * Reason Comments Obstructive Sleep Apnea Encounter Details Date Type Department Care Team (Late st Contact Info) Description 10/17/2010 3:05 PM EDT Office Visit Sleep Medicine [place] [id number] Gaby Guerrero [place] [address] THERESA (obstructive sleep apnea) (Primary Dx) Social [...] subjective improvements in daytime symptoms and sleep sabianism since starting CPAP. The smart card data [...] 9:45 AM EDT Office Visit Dermatology at [place] 580 [place] [address] Emiliano Salinas MD [address] [facility], [place] [address] documented as of this encounter Visit Diagnoses Diagnosis THERESA (obstructive sleep apnea)- Primary Obstructive sleep apnea (adult) (pediatric) documented in this encounter Care Teams Office Machine Service Supervisor Relationship Specialty Start Date End Date Franca Charles MD [address] [place] [address] PCP - General 05/02/10 01/30/11 documented as of this encounter
--- OUTSIDE RECORDS SUMMARY | 2024-02-20 13:41 | XMS_ITS | Encounter Summary ---
Author Organization [facility] [place] [address] Care Team Providers Care Roofer Gypsum Name Role Phone Franca Charles MD Primary Care Provider [phone] Encounter Details Date Type Department Care Team (Late st Contact Info) Description 07/16/2010 8:00 PM EST Procedure [place] [address] Gelacio Blevins MD [facility] [place] [address] Social History Tobacco Use Types Packs/Day Years [...] Office Visit Dermatology at [place] [address] [place] [address] Emiliano Salinas MD [address], [place] [address] documented as of this encounter Visit Diagnoses Not on filedocumented in this encounter Care Teams Roofer Gypsum Relationship Specialty Start Date End Date Franca Charles MD [address] [place] [address] PCP - General 05/02/10 01/30/11 documented as of this encounter
--- OUTSIDE RECORDS SUMMARY | 2024-02-20 13:41 | XMS_ITS | Encounter Summary ---
Author Organization [facility] [place] [address] Care Team Providers Care Final Inspector And Tester Name Role Phone Franca Charles MD Primary Care Provider [phone] Encounter Details Date Type Department Care Team (Late st Contact Info) Description 06/29/2010 12:35 PM EST [place] [address] Leisa Lewis MD [facility] [place] [address] Social History Tobacco Use Types Packs/Day Years [...] 9:45 AM EDT Office Visit Dermatology at [place] [address] [place] [address] Emiliano Salinas MD [address], BAKARI [place] [address] documented as of this encounter Visit Diagnoses Not on filedocumented in this encounter Care Teams Final Inspector And Tester Relationship Specialty Start Date End Date Franca Charles MD [address] [place] [address] PCP - General 05/02/10 01/30/11 documented as of this encounter
--- OUTSIDE RECORDS SUMMARY | 2024-02-20 13:41 | XMS_ITS | Encounter Summary ---
Author [facility] [place] [address] Care Team Providers Care Drier Take Off Tender Name Role Phone Gareth Gramajo MD Primary Care Provider + Encounter Details Date Type Department Care Team (Late st Contact Info) Description 01/25/2012 Orders [place] [address] Satya James MD [address] [place] [address] Bilateral knee pain (Primary Dx) Social History [...] EDT Office Visit Dermatology at [place] [address] [place] [address] Emiliano Salinas MD [address], [place] [address] documented as of this encounter Visit Diagnoses Diagnosis Bilateral knee pain- Primary Pain in joint, lower leg documented in this encounter Care Teams Drier Take Off Tender Relationship Specialty Start Date End Date Gareth Gramajo MD [address] [place] [address] PCP - General 04/24/11 07/08/13 documented as of this encounter
--- OUTSIDE RECORDS SUMMARY | 2024-02-20 13:41 | XMS_ITS | Encounter Summary ---
[place] [address] Care Team Providers Care Surgical Services Assistant Name Role Phone Gareth Gramajo MD Primary Care Provider + Reason for Visit * Reason Onset Date Comments Follow-up 01/25/2012 Encounter Details Date Type Department Care Team ([facility] Contact Info) Description 01/25/2012 Telephone Obstetrics [place] [address] Lien Patel, RN Follow-up Social History Tobacco [...] 9:45 AM EDT Office Visit Dermatology at [place] [address] [place] [address] Emiliano Salinas MD [address], [place] [address] documented as of this encounter Visit Diagnoses Not on filedocumented in this encounter Care Teams Surgical Services Assistant Relationship Specialty Start Date End Date Gareth Gramajo MD [address] [place] [address] PCP - General 04/24/11 07/08/13 documented as of this encounter
--- OUTSIDE RECORDS SUMMARY | 2024-02-20 13:41 | XMS_ITS | Encounter Summary ---
[place] [address] Care Team Providers Care Traffic Representative Name Role Phone Gareth Gramajo MD Primary Care Provider + Reason for Visit * Reason Onset Date Comments Follow-up 12/10/2011 Encounter Details Date Type Department Care Team (Late st Contact Info) Description 12/10/2011 Telephone Obstetrics [place] [phone] Lien Patel, RN Follow-up Social History Tobacco [...] 9:45 AM EDT Office Visit Dermatology at [address] [place] [address] Emiliano Salinas MD [address] [place] [address] RD, [place] [address] documented as of this encounter Visit Diagnoses Not on filedocumented in this encounter Care Teams Traffic Representative Relationship Specialty Start Date End Date Gareth Gramajo MD [address] [place] [address] PCP - General 04/24/11 07/08/13 documented as of this encounter
--- OUTSIDE RECORDS SUMMARY | 2024-02-20 13:41 | XMS_ITS | Encounter Summary ---
Author [facility] [place] [address] Care Team Providers Care Monument Carver Name Role Phone Susan Sharmarebecca Lester APRN Primary Care Provider [phone] Reason for Visit * Reason Onset Date Comments Results 08/05/2013 Encounter Details Date Type Department Care Team (Late st Contact Info) Description 08/05/2013 [place] [address] Yashira Abdullahi MD [facility] [address] ALLERGY [place] [address] Results Social History Tobacco Use Types Packs/Day [...] 9:45 AM EDT Office Visit Dermatology at [place] [address] [place] [address] Emiliano Salinas MD [address], BAKAR[place] [address] documented as of this encounter Visit Diagnoses Not on filedocumented in this encounter Care Teams Monument Carver Relationship Specialty Start Date End Date Chantell Sharma APRN PCP - General 07/09/13 05/09/16 documented as of this encounter
== END 2024-02-20 13:32 | disposition home or self-care (01) ==
LOC: LBO 13:31
PROVIDERS: PCP Student in an Organized Health Care Education/Training Program; Visit Provider Internal Medicine
DX: E87.6 Hypokalemia (principal); E87.1 Hypo-osmolality and hyponatremia
CPT/HCPCS: 80048

== ENCOUNTER 2024-02-24 14:55 | Outpatient (CLI) | payer MEDICARE, SELFPAY ==
--- OUTSIDE RECORDS SUMMARY | 2024-02-24 14:57 | XMS_ITS | Continuity of Care Document ---
Author Organization [facility] Ambulatory Clinics Address [address] [place] [address] Care Team Providers Care Building Construction Foreman Name Role Phone MILO DANG Primary Care Physician Encounter [facility] NBR [id number] Date(s): 02/20/24 - 02/20/24 [facility] Ambulatory Clinics [address], [place] [address] Encounter Diagnosis Urge urinary incontinence(Discharge Diagnosis) - 02/20/24 Discharge Disposition: Home or Self Care Attending Physician: Sunita Dalal MD Referring Physician: MILO DANG Allergies, Adverse Reactions, Alerts Substance Criticality Severity [...] assess criticality Unknown Active Assessment and Plan Extracted from: Title:Urology Procedure Note Author:Sunita haji MD Date:02/20/24 ASSESSMENT:?? Mrs. Ag morrison s a pleasant 74 year-old lady with bothersome urinary urgency and occasional UUI who has failed oral medical therapy.?? She underwent uncomplicated intradetrusor Botox injection today. PLAN: 1. Follow up in 2 weeks for PVR check.? Future Appointments Immunizations Given and Recorded Vaccine [...] 11/15/14 Tu rded 1Result Comment: Unit: Unknown Slasher: Sanofi Pasteur 2Result Comment: Unit: Unknown 3Result [...] Daily, # 30 cap, 11 Refill(s), Pharmacy: [facility] Start Date: 03/28/23 Status: Ordered EpiPen [...] fever, # 80 tab, 1 Refill(s), Pharmacy: [facility] Start Date: 11/02/22 Status: Ordered lisdexamfetamine [...] medication., # 21 tab, 0 Refill(s), Pharmacy: [facility], 157.48, cm, 09/26/23 10:42:00 EDT, Height, [...] Daily, # 90 cap, 0 Refill(s), Pharmacy: [facility] Start Date: 08/23/22 Status: Ordered traZODone 150 mg oral tablet 150 mg = 1 tab, Oral, every day at bedtime, # 30 tab, 0 Refill(s) Start Date: 02/15/23 Status: Ordered triamcinolone 0.025% topical cream 1 karina, Topical, Daily, # 15 g, 0 Refill(s), Pharmacy: [facility] Start Date: 08/07/22 Stop Date: 08/21/22 Status: Ordered trimethoprim 100 mg oral tablet 100 mg = 1 tab, Oral, every 12 hr, # 20 tab, 0 Refill(s), Pharmacy: [facility], 157.48, cm, 09/26/23 10:42:00 EDT, Height, 72.57, kg, 09/26/23 10:51:00 EDT, Weight Dosing Start Date: 02/18/24 Stop Date: 02/28/24 Status: Ordered Tylenol 8 Hour 650 mg oral tablet, extended release 650 mg = 1 tab, Oral, BID, PRN as needed for fever, # 50 tab, 1 Refill(s), Pharmacy: [facility] Start Date: 11/02/22 Status: Ordered Tylenol Extra Strength 500 mg oral tablet QID, as needed, 0 Refill(s) Start Date: 04/27/22 Status: Ordered Vagifem 10 mcg vaginal tablet 10 mcg = 1 tab, VAG, Sat// at bedtime, # 36 tab, 3 Refill(s), Pharmacy: [facility] Start Date: 01/08/23 Status: Ordered Vagifem 10 mcg vaginal tablet 10 mcg = 1 tab, VAG, Sat/Sat, # 26 tab, 4 Refill(s), Pharmacy: [facility] Start Date: 10/25/22 Stop Date: [...] Completed Surgery 2 06/2020 Completed 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 3 10/2016 Completed Procedure [...] Results Laboratory List Name Date .Urinalysis POCT 02/20/24 Most recent to oldest [Reference Range]: 1 Method of Collect POC Clean Catch *NA* (02/20/24 1:27 PM) Specific [place], Ur POC 1.010 *NA* (02/20/24 1:27 PM) Specimen Color POC [Yellow] Yellow (02/20/24 1:27 PM) Glucose, Urine POC Negative mg/dL *NA* (02/20/24 1:27 PM) Bilirubin, Urine POC [Negative] Negative (02/20/24 1:27 PM) Ketones, Urine POC [Negative mg/dL] Nega tive mg/dL (02/20/24 1:27 PM) Blood, Urine POC [Negative] Negative (02/20/24 1:27 PM) pH, Urine POC 7.0 *NA* (02/20/24 1:27 PM) Protein, Urine POC [Negative mg/dL] Nega tive mg/dL (02/20/24 1:27 PM) Urobilinogen, Urine POC [0.2] 0.2 (02/20/24 1:27 PM) Nitrite, Urine POC [Negative] Negative (02/20/24 1:27 PM) Leuk Esterase, Urine POC [Negative] Nega tive (02/20/24 1:27 PM) Clarity, Urine POC [Clear] Clear (02/20/24 1:27 PM) Vital Signs Most recent to oldest [Reference Range]: 1 Temperature Temporal Artery [36-38 Deg C ] 36.2 Deg C (02/20/24 11:22 AM) Peripheral Pulse Rate [60-100 bpm] 94 bp m (02/20/24 11:22 AM) Blood Pressure [90-140/60-90 mmHg] 168/1 00mmHg *HI* (02/20/24 11:22 AM) Mean Arterial Pressure, Cuff [65-140 mmH g] 123 mmHg (02/20/24 11:22 AM) Weight 72.57 kg (02/20/24 11:22 AM) Weight Measured (lbs) 159.989 lb (02/20/24 11:22 AM) Weight Dosing 72.570 kg (02/20/24 11:22 AM) [place] Body Weight Calculated 50.1 kg (02/20/24:22 AM) Height 157.48 cm (02/20/24 11:22 AM) Height/Length Measured (inches) 62 inch (02/20/24 11:22 AM) BSA Measured 1.78 m2 (02/20/24 11:22 AM) Body Mass Index 29.26 kg/m2 (02/20/24 11:22 AM) Social History Social History Type Response Tobacco Never tobacco user T obacco Use:. Sex Female Sex Representation Female (finding) Physician Outpatient Note * Sunita Dalal MD: PERFORM Event Display: Office Clinic Note Physician Authored Date: [id number] SUNNY LUONG :1950 Age:74 years Sex:Female Visit Date:02/20/2024 Primary Care Physician: MILO DANG Chief Complaint Bladder botox History of Present Illness Mrs. Luong is a pleasant 74??year-old lady with bothersome urinary urgency and UUI that has been refractory of oral medication.?? She presents today for intradetrusor Botox injections. Physical Exam Vitals & Measurements T:??36.2?C ??(Temporal Artery)?? HR:??94??(Peripheral)?? BP:??168/100?? SpO2:??99%?? HT:??157.48??cm?? WT:??72.57??kg?? BMI:??29.26?? BSA:??1.78?? Procedure ?The patient was placed in the [...] well and remained stable throughout. ?? Assessment/Plan ASSESSMENT:?? Mrs. Luong is a pleasant 74 year-old lady with bothersome urinary urgency and occasional UUI who has failed oral medical therapy.?? She underwent uncomplicated intradetrusor Botox injection today. PLAN: 1. Follow up in 2 weeks for PVR check.?? 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 of bilateral first carpometacarpal joints Bilateral neural hearing loss Cancer screening Chronic fatigue Complication of surgical [...] mg= 1 cap, Oral, Daily, 11 refills EpiPen 2-Melchor 0.3 mg injectable kit, 0.3 mg, As Directed, PRN ergocalciferol 1.25 mg (50,000 intl units) oral capsule Flonase, !-Nasal, PRN ibuprofen 100 mg oral tablet, 200 mg= 2 tab, Oral, every 6 hr, PRN, 1 refills Kenalog-40, 40 mg, Intra-articular, Once lisdexamfetamine 10 mg oral capsule lisdexamfetamine 20 mg oral capsule lurasidone 20 mg oral tablet Medrol Dosepak 4 mg oral tablet, 1 packets, Oral, Daily naltrexone 50 mg oral tablet Nexletol 180 mg oral tablet, 180 mg= 1 tab, Oral, every other day pregabalin 50 mg oral capsule Singulair, 10 mg, Oral, Daily Tirosint 50 mcg (0.05 mg) oral capsule, 50 mcg= 1 cap, Oral, Daily traZODone 150 mg oral tablet, 150 mg= 1 tab, Oral, every night at bedtime triamcinolone 0.025% topical cream, 1 karina, Topical, Daily trimethoprim 100 mg oral tablet, 100 mg= 1 tab, Oral, every 12 hr Tylenol 8 Hour 650 mg oral tablet, extended release, 650 mg= 1 tab, Oral, BID, PRN, 1 refills Tylenol Extra Strength 500 mg oral tablet, QID Vagifem 10 mcg vaginal tablet, 10 mcg= 1 tab, Vaginal, Sat// at bedtime, 3 refills Vagifem 10 mcg vaginal tablet, 10 mcg= 1 tab, Vaginal, Sat/Sat, 4 refills Vascepa 1 g oral capsule, [...] adult/adol 11/27/2021 Recorded Comments : Unit: Unknown Slasher: Sanofi Pasteur SARS-CoV-2 (COVID-19) mRNA-1273 vaccine 09/20/2021 [...] adult vaccine 11/15/2014 Recorded Electronically Signed on 02/20/2024 12:48 EDT Sunita Dalal MD Patient Care team information Care Team Personnel Name: KEELY GOMEZ Position: No Access Member Role: Informed Provider Address: [address] [place] Name: Yasmine Strickland APRN Position: Physician Member Role: Nurse Practitioner Address: [address] Name: MILO DANG Position: No Access Member Role: Primary Care Physician Address: [address] [place] [address] Care Team Related Persons Name: MARIANO MORENO Name: DESEAN LUONG Name: DESEAN LUONG Insurance Providers Guarantor name: [facility] Health Plan Information #: 1 Payer: [facility] Member Number: [id number] Policy Number: NA Health Plan Information #: 2 Payer: [employer] Member Number: [id number] Policy Number: IRENA Health Plan Information #: 3 Payer: [employer] Member Number: [id number] Policy Number: NA
--- OUTSIDE RECORDS SUMMARY | 2024-02-24 15:00 | XMS_ITS | Encounter Summary ---
Author Organization [facility] Address [address] [place] [address] Care Team Providers Care Environmental Field Team Member Name Role Phone Unavailable Primary Care Provider Unavailabl e Encounter Details Date Type Department Care Team (Late st Contact Info) Description 08/05/2023 Lab Requisition [facility] Pathology & Laboratory Medicine - [facility] [address] [place] [address] Outr Resulting Lab, Provider Social History Tobacco [...] Urine 7.4 See Note mg/dL 08/06/2023 9:08 [facility] Comment: NOTE: Reference range not established Calcium, Urine 24 hr 287 100 - 300 mg/24hr 08/06/2023 9:08 [facility] Comment:Reference range assu mes a normal daily intake of calcium between 600 - 800 mg/day. Urine Volume 3,875 mL 08/06/2023 9:08 [facility] Urine Collection Period 24.0 Hours 08/06/2023 9:08 [facility] Urine 24 HOUR URINE SPECIMEN / Unknown 08/05/2023 8:00 EST 08/05/2023 21:36 EST Provider Outr Resulting Lab URINALYSIS O RDERABLES [facility] [address] [place] [address] documented in this encounter Visit Diagnoses Not on filedocumented in this encounter
--- OUTSIDE RECORDS SUMMARY | 2024-02-24 15:00 | XMS_ITS | Clinical Summary ---
Author Organization [facility] Address [address] [place] [address] Care Team Providers Care Gear Lapping Machine Operator Name Role Phone Unavailable Primary Care Provider Unavailabl e Encounters Date Type Department Care Team Description 02/16/2024 Lab Requisition [facility] Pathology & Laboratory Medicine - [facility] [address] [place] [address] Outr Resulting Lab, Provider from Last 3 [...] 150 - 1,150 mOsm/kg 02/16/2024 16:18 EDT [facility] Urine URINE / Unknown 02/15/2024 1 8:30 EDT 02/16/2024 16:07 EDT Provider Outr Resulting Lab URINALYSIS O RDERABLES [facility] [address] [place] [address] * HEPATITIS C AB W REFLEX TO HCV RNA BY PCR (11/04/2020 14:37 EDT) Hep C Antibody Negative Negative 11/07/2020 10:56 EDT [facility] Blood VENOUS BLOOD / Unknown 11/04/2020 14:37 EDT 11/04/2020 21:45 EDT Provider Outr Resulting Lab CHEMISTRY & BLOOD GAS ORDERABLES Performing Organization Address City/[facility]/ZIP Co de Phone Number [facility] [address] [place] [address] from Last 3 Months or Most Recently Relevant to Health Maintenance
--- OUTSIDE RECORDS SUMMARY | 2024-02-24 15:00 | XMS_ITS ---
Author Organization [facility] Address [address] [place] [phone] Care Team Providers Care Grades 1 Through 5 Teacher Name Role Phone Veronica De Primary Care Provider REASON FOR VISIT possible MED REACTION Encounters Encounter Location Date Provider Diagnosis [address] [id number] 12/10/2023 Veronica De Plan Of Treatment No Information Progress Notes * Yessenia LUONG SDOB:[birth year] (73 yo F)Acc No.[id number]:12/10/2023 Patient:?AGLeonela Mamie :1950???Age:73 Y???Sex:Female Address:[address], [place] [address] * true * Date:? Generated for Printi ng/Fafredg/eTransmitting on:?02/24/2024 02:58 PM EDT
--- OUTSIDE RECORDS SUMMARY | 2024-02-24 15:00 | XMS_ITS ---
Author Organization [facility] Address [address] [place] [phone] Care Team Providers Care Reporting Analyst Name Role Phone Veronica De Primary Care Provider [phone] REASON FOR VISIT refill Medications Medication SIG (Take, Route, Frequency, Duration) Notes Start Date End Date Status diazePAM 2 MG 1 tablet at bedtime Orally Once a day for 30 days 09/26/2023 Active Encounters Encounter Location Date Provider Diagnosis [address] [id number] 09/26/2023 Veronica De Major depressive disorder, recurrent, [...] ARNOLDYessenia Meyer SDOB:[birth year] (73 yo F)Acc No.[id number]:09/26/2023 Patient:?Yessenia LUONG :1950???Age:73 Y???Sex:Female Address:[address], [place] [address] * Refills? Refill diazePAM Tablet, 2 MG, Orally, 30 Tablet, 1 tablet at bedtime, Once a day, 30 days, Refills=0 * true * Date:? Generated for Pratik carpio/Kelli/eTransmitting on:?02/24/2024 02:58 PM EDT
--- OUTSIDE RECORDS SUMMARY | 2024-02-24 15:00 | XMS_ITS ---
Author Organization [facility] Address [address] [place] [phone] Care Team Providers Care Motor Bus Driver Name Role Phone Veronica De Primary Care Provider REASON FOR VISIT . Called - In put on counselor options Encounters Encounter Location Date Provider Diagnosis [address] [id number] 02/17/2024 Veronica De Plan Of Treatment No Information Progress Notes * Yessenia LUONG SDOB:[birth year] (74 yo F)Acc No.[id number]:02/17/2024 Patient:?Yessenia LUONG :1950???Age:74 Y???Sex:Female Address:[address], [place] [address] * * Date:?
--- OUTSIDE RECORDS SUMMARY | 2024-02-24 15:00 | XMS_ITS | Encounter Summary ---
Author Organization [facility] Address [address] [place] [address] Care Team Providers Care Fleet Sales Associate Name Role Phone Unavailable Primary Care Provider Unavailabl e Encounter Details Date Type Department Care Team (Late st Contact Info) Description 03/20/2023 Lab Requisition [facility] Pathology & Laboratory Medicine - [facility] [address] [place] [address] Outr Resulting Lab, Provider Social History Tobacco [...] IGA <1.2 <4.0 U/mL 03/21/2023 12:[address] [facility] Comment: A negative result may be due to IgA deficiency and does not rule out celiac disease. ? Negative: ??<4.0 U/mL ? Weak Positive: ??4.0 - 10.0 U/mL ? Positive: ??>10.0 U/mL Results were obtained with the [employer]inator TechnologiesA Lite R h-tTG IgA MOHAMUD assay on the [employer] DSX. IgA 243 85 - 499 mg/dL 03/21/2023 12:[address] [facility] Celiac Disease Interpretation Negative Serology. Celiac disease unlikely. Approximately 10% of patients with celiac disease are seronegative. Patients who are already adhering to a gluten-free diet may also be seronegative. If celiac disease is highly clinically suspected, referral to gastroenterology for additional evaluation is recommended. 03/21/2023 12:[address] [facility] Blood VENOUS BLOOD / Unknown 03/20/2023 11:00 EDT 03/20/2023 21:56 EDT Provider Outr Resulting Lab IMMUNOLOGY A ND SEROLOGY ORDERABLES [facility] [address] [place] [address] documented in this encounter Visit Diagnoses Not on filedocumented in this encounter
--- OUTSIDE RECORDS SUMMARY | 2024-02-24 15:00 | XMS_ITS | Referral Summary ---
Author Organization [facility] Address [address] [place] [address] Care Team Providers Care Surety Bond Agent Name Role Phone Unavailable Primary Care Provider Unavailabl e Encounters Date Type Department Care Team Description 02/16/2024 Lab Requisition [facility] Pathology & Laboratory Medicine - [facility] [address] [place] [address] Outr Resulting Lab, Provider from Last 3 [...] 150 - 1,150 mOsm/kg 02/16/2024 16:18 EDT [facility] Urine URINE / Unknown 02/15/2024 1 8:30 EDT 02/16/2024 16:07 EDT Provider Outr Resulting Lab URINALYSIS O RDERABLES [facility] [address] [place] [address] * HEPATITIS C AB W REFLEX TO HCV RNA BY PCR (11/04/2020 14:37 EDT) Hep C Antibody Negative Negative 11/07/2020 10:56 EDT [facility] Blood VENOUS BLOOD / Unknown 11/04/2020 14:37 EDT 11/04/2020 21:45 EDT Provider Outr Resulting Lab CHEMISTRY & BLOOD GAS ORDERABLES [facility] [address] [place] [address] from Last 3 Months or Most Recently Relevant to Health Maintenance
--- OUTSIDE RECORDS SUMMARY | 2024-02-24 15:00 | XMS_ITS | Patient Health Record ---
Author Organization [facility] Address [address] [place], [place] [id number] Care Team Providers Care Filter Filler Name Role Phone Veronica De Primary Care [...] Problem Status W/U Status Risk Notes Problem [id number] Anxiety disorder, unspecified (F41.9) Active confirmed Problem [id number] Medication monitoring encounter (Z51.81) Active confirmed Problem 84005967 Other chronic pain (G89.29) Active confirmed Problem [id number] Major depressive disorder, recurrent, moderate (F33.1) Active confirmed Problem 39898148 Vitamin D deficiency, unspecified (E55.9) Active confirmed Problem Allergic rhinitis caused by pollen (42490049) Allergic rhinitis due to pollen, unspecified seasonality (J30.1) Active confirmed Vital Signs Heart Rate 92 BPM 03/05/2023 Temperature 97.8 degrees Fahrenheit 03/05/2023 Blood pressure diastolic 66 mmHg 04/23/2023 Oximetry 96 % 03/05/2023 Blood pressure systolic 126 mmHg 04/23/2023 Weight 163.6 lbs 04/23/2023 Encounters Encounter Location Date Provider Diagnosis [address] [id number] 03/05/2023 Veronica De Major depressive disorder, recurrent, moderate F33.1 ; Other chronic pain G89.29 and Anxiety F41.[address] [id number] 03/26/2023 Veronica De Major depressive disorder, recurrent, moderate F33.1 ; Anxiety disorder, unspecified F41.9 and Other chronic pain G89.[address] [id number] 04/23/2023 Martin Kenisha Major depressive disorder, recurrent, moderate F33.1 and Anxiety disorder, unspecified F41.[address] [id number] 04/25/2023 Veronica De Major depressive disorder, recurrent, moderate F33.1 ; Anxiety disorder, unspecified F41.9 and Other chronic pain G89.[address] [id number] 05/07/2023 Veronica De Major depressive disorder, recurrent, moderate F33.1 ; Anxiety disorder, unspecified F41.9 and Other chronic pain G89.[address] [id number] 05/16/2023 Veronica De Major depressive disorder, recurrent, moderate F33.1 ; Anxiety disorder, unspecified F41.9 and Other chronic pain G89.[address] [id number] 06/24/2023 Veronica De Major depressive disorder, recurrent, moderate F33.1 ; Anxiety disorder, unspecified F41.9 and Other chronic pain G89.[address] [id number] 08/29/2023 Martinnemo De Major depressive disorder, recurrent, moderate F33.1 ; Anxiety disorder, unspecified F41.9 and Other chronic pain G89.[address] [id number] 02/17/2024 Martin Kenisha [address] [place] [id number] 03/06/2023 Veronica De [address], [place] [id number] 04/22/2023 Veronica De [address], [place] [id number] 07/08/2023 Veronica De [address] [id number] 08/29/2023 Veronica De [address] [id number] 09/26/2023 Veronica De Major depressive disorder, recurrent, moderate F33.[address] [id number] 12/10/2023 Veronica De Assessments Encounter Date Diagnosis [...] provided by erika Spence for Veronica De [facility] PRESS OPERATOR-C ACTUARIAL CONSULTANT on 06/04/2023. I have read the medical record and scribe entries. I approve the care and treatment provided to this patient as recorded by the scribe 03/05/2023 Other Documentation assistance provided by erika Spence for Veronica De [facility] PR[facility] OPERATOR-C ACTUARIAL CONSULTANT on 03/05/2023. I have read the medical [...] from February-September for seasonal depressionEncouraged to contact [employer] to book a massage 03/26/2023 Other Documentation assistance provided by erika Spence for Veronica De [employer] PRESS OPERATOR-C ACTUARIAL CONSULTANT on 03/26/2023. I have read the medical [...] ([place] -happy light)Encouraged to contact [employer] to book a massage.Continue PT/OTConsider gentle stretching exercise for Fibromyalgia, PBS show Adeola SyConfort [facility] [place]asif trauma based yoga with [facility]ulalio Solano [facility] daily walks and engage in swimmingCan try Colace, prunes, dates, and high fiber diet for constipation 04/23/2023 Other Documentation assistance provided by erika Spenec [employer] PRESS OPERATOR-C ACTUARIAL CONSULTANT on 04/23/2023. I have read the medical [...] Magnesium 300 mg at bedtimeconsider counseling with Goog Martinez [phone] or Johanna Garcia PT/OTConsider gentle stretching exercise for Fibromyalgia, PBS show Adeola WhiteConsider gentle yoga with Eulalio Johnyulia in [facility] daily walks and engage in swimming 04/25/2023 Other Documentation assistance provided by erika Spence for Veronica De [employer] PRESS OPERATOR-C ACTUARIAL CONSULTANT on 04/25/2023. I have read the medical [...] by erika Spence for Veronica De [employer] PRESS OPERATOR-C ACTUARIAL CONSULTANT on 05/07/2023. I have read the medical [...] Documentation assistance provided by erika Spence [employer] PRESS OPERATOR-C ACTUARIAL CONSULTANT on 05/16/2023. I have read the medical [...] level, blood work orders in place, call [facility] to make appointment 06/24/2023 Other Documentation assistance provided by erika Spence for Veronica De [employer] PRESS OPERATOR-C ACTUARIAL CONSULTANT on 06/24/2023. I have read the medical [...] YouTubecontact Gogo Martinez or Johanna Barajas at [phone] consider attending yoga class with Vance Solano 08/29/2023 Other Documentation assistance provided by erika Spence for Veronica De [employer] PRESS OPERATOR-C ACTUARIAL CONSULTANT on 08/30/2023. I have read the medical [...] Insured Coverage Start Date Coverage End Date [facility] [address] [place] [address] [id number] Yessenia Luong Self - patient is the [...]
--- OUTSIDE RECORDS SUMMARY | 2024-02-24 15:00 | XMS_ITS | Encounter Summary ---
Author Organization [facility] Address [address] [place] [address] Care Team Providers Care Site Damage Prevention Technician Name Role Phone Unavailable Primary Care Provider Unavailabl e Encounter Details Date Type Department Care Team (Late st Contact Info) Description 06/04/[address] [facility] Pathology & Laboratory Medicine - [address] [address] Outr Resulting Lab, Provider Social History Tobacco [...] 201 - 352 mg/dL 06/05/2023 8:56 EST [facility] Blood VENOUS BLOOD / Unknown 06/04/2023 9:45 EST 06/04/2023 21:09 EST Provider Outr Resulting Lab CHEMISTRY & BLOOD GAS ORDERABLES [facility] [address] [place] [address] documented in this encounter Visit Diagnoses Not on filedocumented in this encounter
--- OUTSIDE RECORDS SUMMARY | 2024-02-24 15:00 | XMS_ITS | Encounter Summary ---
Author Organization [facility] Address [address] [place] [address] Care Team Providers Care Table Runner Name Role Phone Unavailable Primary Care Provider Unavailabl e Encounter Details Date Type Department Care Team (Late st Contact Info) Description 02/16/2024 Lab Requisition [facility] Pathology & Laboratory Medicine - [address] [address] Outr Resulting Lab, Provider Social History Tobacco [...] 150 - 1,150 mOsm/kg 02/16/2024 16:18 EDT [facility] Urine URINE / Unknown 02/15/2024 1 8:30 EDT 02/16/2024 16:07 EDT Provider Outr Resulting Lab URINALYSIS O RDERABLES [facility] [address] [place] [address] documented in this encounter Visit Diagnoses Not on filedocumented in this encounter
--- OUTSIDE RECORDS SUMMARY | 2024-02-24 15:00 | XMS_ITS | Data Portability ---
Author Organization [facility] Address [address] [place] [address] Care Team Providers Care Engine Specialist Name Role Phone KENN BRENNER Primary Care Provider Assessment No assessment recorded. Plan of Treatment Reminders Order Date Submit Date Provider Last Modified By Organization Details Last Modified Time Details Appointments None recorded. Lab uric acid, serum or plasma 2022 023 [email or web address] [facility] (Registration ), [address] [place] [address] [place], [address], 3 11:14:57 CBC 2022 023 [email or web address] [facility] (Registration ), [address] [place] [address] [place], [address], 3 16:52:11 iron + total iron-bindin g capacity (TIBC), serum 2022 023 [email or web address] [facility] (Registration ), [address] [place] [address] [place], [address], 4 13:59:15 transferrin , serum 2022 023 [email or web address] [facility] (Registration ), [address] [place] [address] [place], [address], 4 13:59:16 ferritin, serum or plasma 2022 023 [email or web address] [facility] (Registration ), [address] [place] [address] [place], [address], 4 13:59:16 Referral physical therapist referral - For left foot pain? fracture, also chronic back pain 2022 023 [email or web address] [facility], [address] , [place], [address], 4 12:02:56 endocrinolo gy referral - help with thyroid and osteopenia 2022 023 [email or web address] [facility] , [address] [place] [address] [place], [address], 4 11:12:10 Procedures None recorded. Surgeries None recorded. Imaging XR, foot, 3 or more view - left foot: swelling, pain bruising r/o fx, Hx osteopenia 2022 023 [facility] (Radiology), [address] [place] [address] , [facility] [place], [address], 3 13:28:29 US, doppler, venous - r/o DVT Left leg, pain, swelling of foot w/o injury, pain in calf, no swelling, reccomended by cardiology [email or web address] [facility] (Radiology), [address] [place] [address] [place], [address], 3 16:48:48 Medication Orders Celebrex 50 mg capsule 2022 023 JAQUI [facility], [address] [place], [address], 3 09:34:55 Fosamax 70 mg tablet 2022 023 JAQUI [facility], [address] [place], [address], 3 09:22:11 Calcium 600 + D(3) 600 mg-10 mcg (400 unit) tablet 2022 023 JAQUI [facility], [address] [place], [address], 3 09:22:13 Vitamin D3 25 mcg (1,000 unit) capsule 2022 023 JAQUI [facility], [address] [place], [address], 3 09:22:10 vitamin B complex tablet 2022 023 JAQUI [facility], [address] [place], [address], 09:26:38 Patient TargetsNo targets recorded. Patient Instructions Encounter Date Encounter Id Patient Instructions Last Modified By Organization Details Last Modified Time 05/21/2023 [id number] Yessenia Luong expect a call from [facility] re: Left foot xray and left calf US, hold Vyvanse, will check uric acid level today and blood counts- will mail home results, call if they are abnormal follow up at next appt upcoming, f/u on the phone after imaging Not available 05/21/2023 14:08:05 06/04/2023 [id number] Yessenia Moreland ; start fosamax for osteopenia, [...] for alternative options Referring Physician: Kenn Brenner [facility], Encounter Date: 07/04/2023 Urologist Referral for Urina ry incontinence Referring Physician: Kenn Brenner [facility], Encounter Date: 07/08/2023 Physical Therapist Referral for Vertigo UNDERWENT DIAGNOSTIC W/U THROUGH ED 08/27/23 Referring Physician: Julito Jorgensen [facility], Encounter Date: 08/28/2023 Results Created Date Observation Date Name Description Value Unit Range Abnormal Flag Note LastModifiedBy Organization Detail LastModifiedTime 05/17/20 23 05/17/2023 VITAM IN D 25 TOTAL vitamin D 25 total 47.0 NG/mL 30-100 normal Refer ence Guide lines : Defic ient: <10 ng/ml Insuf ficie nt: 10-30 ng/ml Suffi cient : 30-10 0 ng/ml Toxic : >100 ng/ml Not Available [address] [place], [address] 05/17/2023 16:12:29 05/21/20 23 05/21/2023 COMPL ETE BLOOD COUNT NO DIFF WBC 6.05 10_3/ uL 4.4-10 .8 normal Not Available [address] [place], [address] 05/21/2023 16:52:11 05/21/20 23 05/21/2023 COMPL ETE BLOOD COUNT NO DIFF RBC 3.86 10_6/ uL 3.93-5 .22 low Not Available [address] [place], [address] 05/21/2023 16:52:11 05/21/20 23 05/21/2023 COMPL ETE BLOOD COUNT NO DIFF HGB 11.9 g/dL 11.2-1 5.7 normal Not Available [address] [place], [address] 05/21/2023 16:52:11 05/21/20 23 05/21/2023 COMPL ETE BLOOD COUNT NO DIFF HCT 35.6 % 36.0-4 6.0 low Not Available [address] [place], [address] 05/21/2023 16:52:11 05/21/20 23 05/21/2023 COMPL ETE BLOOD COUNT NO DIFF MCV 92 fL 80-95 normal Not Available [address] [place], [address] 05/21/2023 16:52:11 05/21/20 23 05/21/2023 COMPL ETE BLOOD COUNT NO DIFF MCH 30.8 pg 27.0-3 3.0 normal Not Available [address] [place], [address] 05/21/2023 16:52:11 05/21/20 23 05/21/2023 COMPL ETE BLOOD COUNT NO DIFF MCHC 33.4 % 32.0-3 6.0 normal Not Available [address] [place], [address] 05/21/2023 16:52:11 05/21/20 23 05/21/2023 COMPL ETE BLOOD COUNT NO DIFF RDW 11.9 % 11.7-1 4.6 normal Not Available [address] [place], [address] 05/21/2023 16:52:11 05/21/20 23 05/21/2023 COMPL ETE BLOOD COUNT NO DIFF platelet count 413 10_3/ uL 130-40 0 high Not Available [address] [place], [address] 05/21/2023 16:52:11 05/21/20 23 05/21/2023 COMPL ETE BLOOD COUNT NO DIFF MPV 9.7 fL 8.0-11 .0 normal Not Available [address] [place], [address] 05/21/2023 16:52:11 05/21/20 23 05/21/2023 URIC ACID uric acid 5.7 mg/dL 2.6-6. 0 normal Not Available [address] [place], [address] 05/21/2023 18:59:20 06/04/20 23 06/04/2023 IRON/ IBCT iron 72 ug/dL 50-170 normal Not Available Dinorah tucker [address] [place], [address] 06/04/2023 17:30:26 06/04/20 23 06/04/2023 IRON/ IBCT total iron binding capacity 312 ug/dL 250-45 0 normal Not Available [address] [place], [address] 06/04/2023 17:30:26 06/04/20 23 06/04/2023 IRON/ IBCT transferrin sat 23 % 15-50 normal Not Available Nathalia gabriel [address] [place], [address] 06/04/2023 17:30:26 06/04/20 23 06/04/2023 OMID TIN ferritin 121 NG/mL 8-252 normal Not Available [address] [place], [address] 06/04/2023 18:08:25 06/04/20 23 06/05/2023 TRANS OMID N transferrin 248 mg/dL 201-35 2 Test perfo rmed or refer red by [facility] [address] [place] [address] Not Available [address] [place], [address] 06/05/2023 09:19:24 08/05/19 24 08/05/2023 CREAT ININE 24 HR URINE total volume 3785 mL Not Available [address] [place], [address] 08/05/2023 16:14:10 08/05/19 24 08/05/2023 CREAT ININE 24 HR URINE creatinine,u rine 14.37 mg/dL No Refer ence Range estab lishe d Not Available [address] [place], [address] 08/05/2023 16:14:10 08/05/19 24 08/05/2023 CREAT ININE 24 HR URINE creatinine,2 4HR ur 0.53 g/24H R 0.60-1 .80 low Not Available [address] [place], [address] 08/05/2023 16:14:10 08/05/19 24 08/06/2023 CALCI UM URINE 24HR calcium urine 7.4 mg/dL see note NOTE: Refer ence range not estab lishe d Not Available [address] [place], [address] 08/06/2023 11:23:36 08/05/19 24 08/06/2023 CALCI UM URINE 24HR calcium urine 24 HR 287 mg/24 HR 100-30 0 Refer ence range assum es a dirk l daily intak e of calci um betwe en 600 - 800 mg/da y. Not Available [address] [place], [address] 08/06/2023 11:23:36 08/05/19 24 08/06/2023 CALCI UM URINE 24HR urine collection period 24.0 hours Test perfo rmed or refer red by [facility] [address] [place] [address] Not Available [address] [place], [address] 08/06/2023 11:23:36 08/05/19 24 08/06/2023 CALCI UM URINE 24HR timed urine volume 3875 mL Not Available [address] [place], [address] 08/06/2023 11:23:36 05/22/20 23 05/22/2023 ultra sound imagi ng repor t Patitracie t Name: Gaby Leonel neal Mamie Unit #: [id number] Loc: DI Orderi ng Provid er: Eileen Brenner Accoun t #: [id number] Status : REG CLI Primar y [...] tation , and color Dopple r. The logistics supply officer ior tibial veins are patent . No saphen ous vein thromb osis or other superf icial venous thromb osis is seen. No hemato ma or Mariscal' s cyst is seen. IMPRES KATHIE: Negati ve lower extrem ity ultras ound. No eviden ce of DVT. DATA REPOSI TORY: Ordere d By: iEleen Brenner CC: ------ ------ ------ ------ ------ [...] the addres s above. Thank- you. [email or web address] [facility] [address], [place], [address] 05/22/2023 12:00:16 05/22/2005/22/2023 XR, foot, 3 or more view No observ ation record ed. the Not Available 2022 13:49:53 05/22/20 23 05/22/2023 x-ray imagi balaji Bae t Name: Leonel Pandya Unit #: [id number] Loc: DI Rigo carpio Provid er: Eileen Brenner Accoun t #: [id number] Status : REG CLI Primar y [...] at the addres s above. Thank- you. [email or web address] [facility] [address], [address] 05/23/2023 10:27:45 05/28/20 23 05/28/2023 x-ray imagi ng repor t Catalino brantley Name: Leonel Pandya Unit #: [id number] Loc: SUNG Orderi ng Provid er: Timur Salgado M.D. Accoun t #: [id number] Status : REG CLI Primar y Care [...] at the addres s above. Thank- you. [facility] [address], [address] 05/28/2023 12:22:46 07/16/19 24 07/16/2023 x-ray imagi ng repor t Patitracie t Name: Leonel Pandya Unit #: [id number] Loc: DIORS Orderi ng Provid er: Timur Salgado M.D. Accoun t #: [id number] Status : REG CLI Primar y Care [...] at the addres s above. Thank- you. [facility] [address], [place], [address] 07/16/2023 13:27:22 09/18/19 24 09/18/2023 x-ray imagi ng joya brantley Name: Leonel Pandya Unit #: [id number] Loc: DIORS Orderi ng Provid er: Timur Salgado M.D. Accoun t #: [id number] Status : REG CLI Primar y Care [...] at the addres s above. Thank- you. [email or web address] [place] [address] [address], [place], [address] 09/19/2023 09:19:37 12/02/19 24 05/28/2023 x-ray imagi ng repor t Patitracie t Name: Leonel Pandya Unit #: [id number] Loc: DIORS Orderi ng Provid er: Timur Salgado M.D. Accoun t #: [id number] Status : DEP CLI Primar y Care [...] at the addres s above. Thank- you. [email or web address] [facility] [address], [place], [address] 12/06/2023 17:22:48 Result Notes None recorded. Problems Name Problem SNOMED Code Status Onset Date Resolution Date Notes Provider Name and Address Organization Details Recorded Time Obesity 286949166 Active 200803/02/20 20 - Comments only - Juan Smith MD - Had good effect with just naltrexo ne even without bupropri on. I'm willing to represcr aki this. Problem Code: E66.9; Problem Code Type: ICD-10; Not Available [facility] 3 03:58:41 Major depressi on, single episode 23466117 Active 200907/19/19 21 - Comments only - Juan Smith MD - symptoms mild but persiste nt. She would like to try SSRI again, try sertrlin e and follow. Problem Code: F32.9; Problem Code Type: ICD-10; Not Available [facility] 3 03:58:41 Anxiety disorder 026433084 Active 200711/20/19 20 - Comments only - Geri Soares [employer] - increase d due to COVID-19 . Encourag ed continue d yoga, mindfuln ess techniqu es such as meditati on, and aromathe rapy with lavendar oil before bedtime to help wind down the mind and body. Problem Code: F41.9; Problem Code Type: ICD-10; Not Available [facility] 3 03:58:42 Pure hypercho lesterol emia 021038852 Active 200711/02/19 21 - Comments only - Juan Smith MD - Reviewed cardiolo gy notes. LDL much better with med combinat ion, discusse d she should take the highest doses she can tolerate . Problem Code: E78.0; Problem Code Type: ICD-10; Not Available [facility] 3 03:58:42 Allergic rhinitis 43476361 Active 199804/14/20 18 - Comments only - Juan Smith MD - Seeing allergis t. Had liver testing in June and was normal. I don't think itching related to liver. Problem Code: J30.9; Problem Code Type: ICD-10; Not Available [facility] 3 03:58:42 Insomnia 419840221 Active 200906/16/19 20 - Comments only - Juan Smith MD - Getting to sleep well and sleeping 9 hours, try cutting back trazodon e. Problem Code: G47.00; Problem Code Type: ICD-10; Not Available [facility] 3 03:58:42 Obstruct aide sleep apnea syndrome 10868707 Active 201104/02/20 17 - Comments only - Juan Smith MD - getting fitted for oral applianc e with dentist in [place]. Problem Code: G47.33; Problem Code Type: ICD-10; Not Available [facility] 3 03:58:42 Hypothyr oidism 26031406 Active 201403/02/20 20 - Comments only - Juan Smith MD - on 50mcg LT4, recheck TSH/refl ex today Problem Code: E03.9; Problem Code Type: ICD-10; Not Available [facility] 3 03:58:42 History of nutritio nal disorder 087924389 Active 2014 Not Available [facility] 3 03:58:42 Heart murmur 93232386 Active 2014 Problem Code: R01.1; Problem Code Type: ICD-10; Not Available [facility] 3 03:58:42 Restless legs 39275217 Active 2014 Problem Code: G25.81; Problem Code Type: ICD-10; Not Available [facility] 3 03:58:42 Cosmetic surgery Completed 201508/26/2015 Problem Code: Z41.1; Problem Code Type: ICD-10; Not Available [facility] 3 03:58:42 Increase d frequenc y of urinatio n 981310395 Completed 201510/18/2015 Problem Code: R35.0; Problem Code Type: ICD-10; Not Available [facility] 3 03:58:43 History and physical examinat ion, administ ratishivani Completed 201512/08/2015 Problem Code: Z02.89; Problem Code Type: ICD-10; Not Available [facility] 3 03:58:43 Disorder associat ed with menstrua tion AND/OR menopaus e 641315208 Active 201502/20/20 18 - Comments only - Juan Smith MD - Would like to use premarin cream. Has used very similar products in past. Reviewed risks includin g endometr ial cancer and blood clots and possibly AL, though risk low. She would like to try. Problem Code: N95.9; Problem Code Type: ICD-10; Not Available [facility] 3 03:58:43 Chronic allergic otitis media 57365004 Active 201604/02/20 17 - Comments only - Juan Smith MD - Refilled ofloxaci n in case infectio n recurs while in remote setting. Has worked in past Problem Code: H65.419; Problem Code Type: ICD-10; Not Available [facility] 3 03:58:43 Motion sickness 30116170 Active 201602/14/20 17 - Comments only - Juan Smith MD - Going on cruise. Can use scopolam ine patch. Discusse d ADRs. Problem Code: T75.3xxS ; Problem Code Type: ICD-10; Not Available [facility] 3 03:58:43 Pain of joint of knee 5355897020 Active 201603/02/20 20 - Comments only - Juan Smith MD - likely OA, assess with XR, consider ortho if severe. PT if patient willing. Problem Code: M25.569; Problem Code Type: ICD-10; Not Available [facility] 3 03:58:43 Urge incontin ence of urine 84965433 Active 201707/19/19 21 - Comments only - Juan Smith MD - Improved with tolterid ine and topical estrogen . Discusse d antichol inergic ADRs, she plans to try to come off tolterid ine after another month. Problem Code: N39.41; Problem Code Type: ICD-10; Not Available [facility] 3 03:58:43 Diarrhea 84444547 Active 201806/16/19 20 - Comments only - Juan Smith MD - Intermit tent symptoms , not severe. I'm not sure O&P would be producti ve at this point unless symptoms worsen Not Available [facility] 3 03:58:43 Vitamin D deficien cy 02429430 Active 201803/02/20 20 - Comments only - Juan Smith MD - recheck with labs. Problem Code: E55.9; Problem Code Type: ICD-10; Not Available [facility] 3 03:58:44 Fatigue 41747212 Active 201803/19/20 19 - Comments only - [...] R53.83; Problem Code Type: ICD-10; Not Available [facility] 3 03:58:44 Gastroes ophageal reflux disease without esophagi tis 800025913 Active 201906/16/19 20 - Comments only - Juan Smith MD - mild symptoms , discusse d managmen t options Problem Code: K21.9; Problem Code Type: ICD-10; Not Available [facility] 3 03:58:44 Insect bite Completed 201911/21/2019 11/20/19 20 - Comments only - Geri Soares [employer] - Possibly unattach ed tick; pt did not bring insect in to be examined (it flushed down the shower drain). Explaine d that this does not meet CDC guidelin es for Lyme prophyla xis (due to lack of engorged tick and timeline ). Pt agreeabl e. Not Available [facility] 3 03:58:44 Screenin g for malignan t neoplasm of breast Completed 201903/03/2020 Problem Code: Z12.39; Problem Code Type: ICD-10; Not Available [facility] 3 03:58:44 Spasm 73726499 Active 2019 Problem Code: R25.2; Problem Code Type: ICD-10; Not Available [facility] 3 03:58:44 Biceps tendinit is 512552899 Active 2019 Problem Code: M75.21; Problem Code Type: ICD-10; Not Available [facility] 3 03:58:44 Breast composit ion 685334258 Active 2019 Not Available [facility] 3 03:58:45 Idiopath ic osteoart hritis 231828815 Active 201907/19/19 21 - Comments only - Juan Smith MD - Offered surgery, we discusse d, she will f/u with Mary Ann. Problem Code: M18.11; Problem Code Type: ICD-10; Not Available [facility] 3 03:58:45 Anemia 148650037 Active 202011/02/19 21 - Comments only - Juan Smith MD - Discusse d. MCV high normal. Recent normal B12. Alcohol slightly higher than ideal levels, she will try to stop. High RDW could reflect reticulo cytosis, blood loss? Get iron levels and iFOB Problem Code: D64.9; Problem Code Type: ICD-10; Not Available [facility] 3 03:58:45 Adult health examinat ion Active 2020 Problem Code: Z00.00; Problem Code Type: ICD-10; Not Available [facility] 3 03:58:45 Calcium deposit in bursa 294790117 Active 202011/02/19 21 - Comments only - Juan Smith MD - We discusse d her calcium levels have been normal, calcium dopositi on is typicall y a result of inflamma tion rather than the cause. Given her concern, will get ionized calcium to varify she doesn't have high circulat ing calcium. Problem Code: M71.40; Problem Code Type: ICD-10; Not Available [facility] 3 03:58:45 Spinal stenosis 12236018 Active 2022 Problem Code: M48.00; Problem Code Type: ICD-10; Not Available [facility] 3 03:58:45 History of infectio us disease 111909415 Active 2022 Problem Code: Z86.19; Problem Code Type: ICD-10; Not Available [facility] 3 03:58:46 Bone density finding 885468822 Active 2022 Problem Code: M85.80; Problem Code Type: ICD-10; Not Available [facility] 3 03:58:46 Pain in finger 19495694 Active 2022 Problem Code: M79.646; Problem Code Type: ICD-10; Not Available [facility] 3 03:58:46 Overweig ht 527423869 Completed 201402/24/2016 Problem Code: E66.3; Problem Code Type: ICD-10; Not Available [facility] 3 03:58:48 Cellulit is of left upper limb 83439078209 108159 Completed 201803/06/2023 11/27/19 19 - Comments only - Juan Smith MD - Most c/w bacteria l cellulit is with some tracking up arm, but acute lyme in DDX as may have started with tick bite. Will cover with doxycycl ine x 2 weeks in case, RTC if not improvin g. Problem Code: L03.114; Problem Code Type: ICD-10; Not Available [facility] 3 03:58:48 Allergic rhinitis 44665289 Completed 200704/16/2016 Not Available [facility] 3 03:58:48 Anxiety state 646147111 Completed 200703/06/2023 Not Available [facility] 3 03:58:49 Screenin g for disorder Completed 201703/18/2019 Problem Code: Z13.9; Problem Code Type: ICD-10; Not Available [facility] 3 03:58:49 Mixed hyperlip idemia 326954340 Completed 200702/24/2016 Problem Code: E78.2; Problem Code Type: ICD-10; Not Available [facility] 3 03:58:49 Gastriti s 8256725 Completed 201809/01/2018 Problem Code: K29.70; Problem Code Type: ICD-10; Not Available [facility] 3 03:58:49 Cataract 161543871 Completed 201809/01/2018 Problem Code: H26.9; Problem Code Type: ICD-10; Not Available [facility] 3 03:58:50 Acute sinusiti s 95152602 Completed 201809/05/2018 Problem Code: J01.90; Problem Code Type: ICD-10; Not Available [facility] 3 03:58:51 Screenin g for malignan t neoplasm of colon Completed 201803/19/2019 Problem Code: Z12.11; Problem Code Type: ICD-10; Not Available [facility] 3 03:58:51 Pre-surg norberto evaluati on Completed 201402/24/2016 Problem Code: Z01.818; Problem Code Type: ICD-10; Not Available [facility] 3 03:58:51 Allergic disposit ion 402575309 Completed 199803/06/2023 Not Available [facility] 3 03:58:52 Generali zed hyperhid rosis 389713588 Completed 201402/24/2016 Problem Code: R61; Problem Code Type: ICD-10; Not Available [facility] 3 03:58:52 Dyspnea 162283492 Completed 201706/16/2018 Problem Code: R06.02; Problem Code Type: ICD-10; Not Available [facility] 3 03:58:52 Pain in finger 12581089 Completed 201903/06/2023 Problem Code: M79.646; Problem Code Type: ICD-10; Not Available [facility] 3 03:58:53 Disorder of hematopo ietic structur e 876539263 Completed 202003/06/2023 Problem Code: D75.89; Problem Code Type: ICD-10; Not Available [facility] 3 03:58:53 Dyspnea 890382278 Completed 201504/02/2017 Problem Code: R06.02; Problem Code Type: ICD-10; Not Available [facility] 3 03:58:53 Hypertro phy of breast 967563087 Completed 201402/24/2016 Problem Code: N62; Problem Code Type: ICD-10; Not Available [facility] 3 03:58:54 Pain in thoracic spine 349663898 Completed 201402/24/2016 Problem Code: M54.9; Problem Code Type: ICD-10; Not Available [facility] 3 03:58:54 Cough 12687963 Completed 201402/24/2016 Problem Code: R05; Problem Code Type: ICD-10; Not Available [facility] 3 03:58:55 Localize d eruption of skin 883131572 Completed 201803/02/2020 Problem Code: R21; Problem Code Type: ICD-10; Not Available [facility] 3 03:58:55 Nausea 494206514 Completed 201402/24/2016 Problem Code: R11.0; Problem Code Type: ICD-10; Not Available [facility] 3 03:58:55 Neck pain 57886795 Completed 201402/24/2016 Problem Code: M54.2; Problem Code Type: ICD-10; Not Available [facility] 3 03:58:56 Depressi ve disorder 84425409 Completed 200903/06/2023 Problem Code: 311; Problem Code Type: ICD-9; Not Available [facility] 3 03:58:57 Worried well 93410226 Completed 200802/24/2016 Not Available [facility] 3 03:58:57 Notes:*Problem Name: H/o Ane marybeth *ICD-10 Codes: *Problem Status: inactive *Comments: *Note Date: 10/08/1998 *Problem Name: H/o Anemia *ICD-10 Codes: *Problem Status: inactive *Comments: *Problem Code Type: CPT *Note Date: 10/08/1998 Problem Notes Documentation Provider Name and Address Organization Details Recorded Time Physical Therapist Consult Note : Physical Therapy Initial Eval PATIENT NAME: Yessenia Luong UNIT #: [id number] ADMITTING PROVIDER: ALENA SIMON PT, DPT PRIMARY CARE PROVIDER: Kenn Brenner ADMIT: 09/24/23 : 1950 Supervising Provider: Alena Simon PT Diagnosis: unilateral vestibular dysfunction, imbalance MD Diagnosis: gait imbalance, vertigo Weeks Elapsed: week(s) and 0 day(s) Patient Location: Physical Therapy - [facility] Referring Provider: Ted Corrales MD Date of [...] She states that she was vacationing in [place] for the month of August, and had [...] saccades noted 3/3 trials? Postural Stability/VSR Testing: [facility] [employer] Organization Performance Test for Vestibulopathy: (+) [...] treatment planning, with patient verbalizing agreement. IE:??? [id number] Neuromuscular Re-education ([id number]): Vestibular Rehabilitation Training (VRT): Access Code: [email or web address] URL: [email or web address] Date: 09/24/2023 Prepared by: Alena Simon Exercises [...] 5. dysfunction of VSR as indicated by Crawford SOP Impairments are contributing to the following functional limitations: 1. dizziness when getting out of bed 2. decreased balance when turning head while walking 3. fear avoidance behaviors 4. sensation of dysequilibrium 5. fear of falling Patient is assessed as:??? Moderate 24677?complexity, based on the following: History: (list):??? Patient [...] PT, DPT, [facility] All Active Problems (Updated 09/11/23 [...] in error, please notify us immediately at [phone] and return the original report to us at the address above. Thank you. KENN solitario [facility]. 09/25/2023 15:44:20 Procedures Surgical History None recorded. Imaging Results Imaging Date Name Status LastModified by Organiz ation Details LastModified Time 05/22/2023 ultrasound imaging report completed the6 [address] [place], [address] 05/22/2023 12:00:16 05/22/2023 XR, foot, 3 or more view completed the6 Information not available 05/22/2023 13:49:53 05/22/2023 x-ray imaging report completed [email or web address] [address] [place], [address] 05/23/2023 10:27:45 05/28/2023 x-ray imaging report completed the6 [address] [place], [address] 05/28/2023 12:22:46 07/16/2023 x-ray imaging report completed the6 [address] [place], [address] 07/16/2023 13:27:22 09/18/2023 x-ray imaging report completed the6 [address] [place], [address] 09/19/2023 09:19:37 05/28/2023 x-ray imaging report completed [email or web address] [address] [place], [address] 12/06/2023 17:22:48 Procedure Notes None recorded. Medical Equipment None Reported. Allergies Allergen ID Allergen Name Allergen Category Reaction Reaction Severity Criticality Documentation Date Start Date Code Code System Note Provider Name and Address Organization Details Recorded Time wasp venoms environme nt swelling moderate Not available 04/19/20232005 79599 RxNorm swell ing Aller gyNam e: 'BEE STING S'; Not Available [facility] 16:07:24 98352 Bactrim medicatio n Not available Not available Not available 04/19/20232005 74093 9 RxNorm Not Available [facility] 3 16:07:25 43726 sulfasala zine Not available Not available Not available Not available 04/19/20232011 9524 RxNorm Not Available [facility] 3 16:07:25 92378 simvastat in medicatio n myalgias (muscle pain) moderate Not available 04/19/20232006 81568 RxNorm muscl e pain Aller gyRea ction : 'musc le pain' ; Not Available [facility] 3 16:07:25 72695 atorvasta tin calcium medicatio n myalgias (muscle pain) moderate Not available 04/19/20232006 38189 RxNorm muscl e pain Aller gyRea ction : 'musc le pain' ; Not Available [facility] 3 16:07:25 99590 fenofibra te medicatio n other mild Not available 04/19/20232015 8703 RxNorm Stoma ch upset Aller gyRea ction : 'Stom ach upset '; Not Available [facility] 3 16:07:25 55555 Augmentin medicatio n nausea mild Not available 04/19/20232014 77294 2 RxNorm nause a Not Available [facility] 3 16:07:25 75226 Crestor medicatio n myalgias (muscle pain) moderate Not available 04/19/20232006 20446 4 RxNorm muscl e pain Aller gyRea ction : 'musc le pain' ; Not Available [facility] 3 16:07:25 72146 morphine sulfate medicatio n diarrhea mild Not available 04/19/20232013 54466 RxNorm diarr hea Not Available [facility] 3 16:07:26 95209 Voltaren medicatio n other mild Not available 04/19/20232011 18905 6 RxNorm GI Aller gyRea ction : 'GI'; Aller gyCod e: '2420 21171 05'; Aller gyNam e: 'VOLT AREN' ; Aller gyCon ceptT ype: 'NDC' ; Not Available [facility] 3 16:07:26 Medications Name Sig Start [...] Not Available Not Available No t Available [place] Thyroid 30 mg tablet Take 1 tab [...] No t Available Nasonex 50 mcg/actua tion [place] 2 sprays daily 02/23 completed Not Available [...] completed Not Available Not Available Not Available [facility] 32.5 mg tablet Take 1 tab [...] Not Available Not Available [facility] Tears ([id number] promell-g lycerin) 1 %-0.2 %-0.2 % eye [...] mm[Hg] 82 mm[Hg] ULICES DE LEÓN LPN [facility] 05/21/2023 13:43:07 Date Recorded Body height Heart rate Systolic blood pressure Diastolic blood pressure Provider Name and Address Organization Details Last Updated DateTime 06/04/2023 160.528 cm 80 /min 130 mm[Hg] 82 mm[Hg] ULICES DE LEÓN LPN [facility] 06/04/2023 09:01:33 Social History None recorded. Functional [...] adolescent or pediatric 04/02/2017 completed Not Available [facility] 04/19/2023 05:31:57 Hep A-Hep B 11/15/2014 completed Not Available [facility] 04/19/2023 05:31:58 Tdap 07/02/2016 completed Not Available [facility] 05:31:58 Tdap 10/15/2016 completed Not Available [facility] 05:31:58 Tdap 11/27/2021 completed Not Available [facility] 05:31:58 Tdap 02/19/2018 completed Not Available [facility] 05:31:58 zoster live 06/16/2018 completed Not Available [facility] 04/19/2023 05:31:58 zoster live 10/15/2016 completed Not Available [facility] 04/19/2023 05:31:58 zoster live 06/06/2016 completed Not Available [facility] 04/19/2023 05:31:58 Pneumococcal conjugate PCV 13 11/15/2014 completed Not Available [facility] 04/19/2023 05:31:59 Influenza, split virus, trivalent, preservative 04/11/2015 completed Not Available [facility] 04/19/2023 05:31:59 Influenza, split virus, quadrivalent, preservative 04/02/2017 completed Not Available [facility] 04/19/2023 05:31:59 zoster recombinant 02/19/2018 completed Not Available [facility] 04/19/2023 05:31:59 Influenza, high-dose, quadrivalent, PF 03/07/2020 completed Not Available [facility] 04/19/2023 05:31:59 Influenza, high-dose, quadrivalent, PF 03/16/2022 completed Not Available [facility] 04/19/2023 05:31:59 COVID-19, mRNA, LNP-S, PF, 100 mcg/0.5mL dose or 50 mcg/0.25mL dose 08/03/2020 completed Not Available [facility] 04/19/2023 05:31:59 COVID-19, mRNA, LNP-S, PF, 100 mcg/0.5mL dose or 50 mcg/0.25mL dose 08/31/2020 completed Not Available [facility] 04/19/2023 05:31:59 COVID-19, mRNA, LNP-S, PF, 100 mcg/0.5mL dose or 50 mcg/0.25mL dose 09/20/2021 completed Not Available [facility] 04/19/2023 05:32:00 typhoid, oral 04/13/2017 [facility] 04/19/2023 05:32:00 pneumococcal polysaccharide PPV23 10/15/2016 completed Not Available [facility] 2022 05:32:00 pneumococcal polysaccharide PPV23 06/06/2016 completed Not Available [facility] 2022 05:32:00 Hep B, adult 06/17/2019 completed Not Available [facility] 04/19/2023 05:32:00 Hep A, adult 04/02/2017 completed Not Available [facility] 04/19/2023 05:32:00 influenza, unspecified formulation 03/23/2019 completed Not Available [facility] 04/19/2023 05:32:00 influenza, unspecified formulation 04/18/2021 completed Not Available [facility] 04/19/2023 05:32:00 Influenza, high-dose, quadrivalent, PF 03/20/2023 completed Not Available [facility] 06/21/2023 05:31:41 SARS-COV-2 (COVID-19) vaccine, UNSPECIFIED 04/09/2023 completed Not Available [facility] 06/21/2023 05:31:42 Past Encounters Encounter ID Performer Location Encounter Start Date Encounter Closed Date Diagnosis/Indication Diagnosis SNOMED-CT Code Diagnosis ICD10 Code [id number] [facility] [address] [place] [address] 05/21/2023 13:20:46 05/21/2023 14:24:08 Swelling of left foot 057896656 M79.89 Easy bruising 248898819 R58 [id number] [facility] [address] [place] [address] 06/04/2023 08:49:20 06/04/2023 10:30:49 Pain in left foot 8709222634 81944 M79.672 Osteopenia 641754793 M85 .80 Hypothyroidism 56036621 E03.9 Idiopathic osteoarthritis 080352474 M19.91 Fatigue 37329790 R53.83 Health Concerns Section Related Observation LastModified by Organization Detai ls LastModified Time None Recorded Concern Status LastModified by Organization Details LastModified Time None Recorded Advance Directives Directive None Recorded Payers Encounter Date Sequence Insurance Name Policy Number Policy Hendrix Covered Member ID Hendrix Member ID Guarantor Name 05/21/2023 1 [place]ANTAGE - PPO) [id number] Yessenia S Kitchel [id number] Yessenia S Kitchel 06/04/2023 1 [place] - [place]PO) [id number] Yessenia S Kitchel [id number] Yessenia S Kitchel Notes Date Note Type Note Provider Name and Address Organization Details Recorded Time 05/21/2023 text/html HPI Notes: 73-year-old woman here for multiple complaints She developed left foot bruising, swelling and pain 1 week following a steroid injection that she had in her back? given to her by a provider at [facility] for chronic back pain. She was seen by her physical therapist as she thought it was plantar fasciitis they advised that she see her PCP. She called her graining press operator and they advised that she get a Doppler ultrasound to rule out a DVT. She denies shortness of breath, or any injury. Reports being very sedentary. No fever. Kenn solitario [facility]. 05/23/2023 13:18:31 06/04/2023 text/html HPI Notes: 73 yr old woman here for f/u L foot pain: originally seen 05/21/2023 at [facility] for multiple complaints : HX: She developed left foot bruising, swelling and pain 1 week following a steroid injection that she had in her back? given to her by a provider at [facility] for chronic back pain. She was seen by her physical therapist as she thought it was plantar fasciitis they advised that she see her PCP. She called her graining press operator and they advised that she get a [...] calcium and vitamin D. NABOR Irwin - [facility]. 06/04/2023 10:11:37 OBGyn Episode No OBEpisode recorded.
--- OUTSIDE RECORDS SUMMARY | 2024-02-24 15:01 | XMS_ITS | Encounter Summary ---
Author Organization [facility] [place] [address] Care Team Providers Care Community Artist Name Role Phone Dana Cedillo DO Primary Care Provider [phone] Encounter Details Date Type Department Care Team (Late st Contact Info) Description 01/09/2024 Telephone Cardiology at [address] [place] [address] Liam Noel MD [facility] [place] [address] Social History Tobacco Use Types Packs/Day Years [...] were not included. [facility] [address] [place] [address] [place] [address] Yessenia called provide message for Dr. Noel [...] Dr. Chapa is a Naturopathy provider at [facility] Medicine [address] Villegas [facility], [place], [place] [id number] documented in this encounter Plan of Treatment Upcoming Encounters Date Type Department Care Team (Late st Contact Info) Description 03/13/2024 9:45 AM EDT Office Visit Dermatology at [address] [place] [address] Emiliano Salinas MD [address] [place] [address], [facility] [place] [address] documented as of this encounter Visit Diagnoses Not on filedocumented in this encounter Care Teams Community Artist Relationship Specialty Start Date End Date Dana Cedillo DO [address] [place] [address] PCP - General Family Medicine 10/16/23 documented as of this encounter
--- OUTSIDE RECORDS SUMMARY | 2024-02-24 15:01 | XMS_ITS | Encounter Summary ---
Author Organization [facility] [place] [address] Care Team Providers Care Prototype Sewer Name Role Phone Guerline Quigley APRN Primary Care Provider [phone] Reason for Visit * Consultation (Routine) - Closed Specialty Diagnoses / Procedures Referred By Veronica brantley Referred To Contact Endocrinology Diagnoses Hypothyroidism, unspecified Other specified disorders of bone density and structure, unspecified site Guerline Quigley APRN [address] [place] [address] [facility] [address] [place] [id number] Referral ID Status Reason Start Date Expiration Date Visits Re quested Visits Authorized [id number] Closed 06/05/2023 06/04/2024 1 1 Encounter Details Date Type Department Care Team (Late st Contact Info) Description 07/30/2023 10:00 AM EST [place] [address] [place] MD [facility] [place] [address] Osteopenia, unspecified location Social History [...] [x] 701-900 mg [] 901-1100 mg [] 5746-5237 mg [] 3858-8332 mg [] Above 1500 mg ROS: Constitutional: [...] EACH WEEK fluticasone propionate (Flonase) 50 mcg/actuation [place], Suspension Every 12 hours. 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 Social [...] daily). She is planning to go to [place] for the month of August. Her TFTs are within normal limits while on levothyroxine 50 mcg. Plan: - will obtain DXA scan report and based on the scores decide about the appropriate treatment - Ca and Vit D prescription can be sent to [facility] if needed - continue with current Ca [...] 9:45 AM EDT Office Visit Dermatology at [place] [address] [place] [phone] Emiliano Salinas MD [address], [place] [address] Scheduled Orders Name Type Priority Associated Diagnoses [...] Free T4 1.37 0.93 - 1.70 ng/dL [facility] Comment: Reference Interval (ng/dL): Females: ??First Trimester: 0.97-1.68 ??Second Trimester: 0.77-1.51 ??Third Trimester: 0.77-1.49 Blood 07/30/2023 11:3 2 AM EST 07/30/2023 11:39 AM EST Narrative Resulting Agency Comment Spec In Lab [place] MD CHEMISTRY ORDERABL ES Performing Organization Address City/[facility] Co de Phone Number [facility] [place] [address] * TSH (07/30/2023 11:32 AM EST) Thyroid Stimulating Hormone 1.96 0.27 - 4.20 mcIU/mL [facility] Comment: Reference Interval (mcIU/mL): Females: ??First Trimester: 0.23-3.88 ??Second Trimester: 0.22-3.90 ??Third Trimester: 0.44-4.66 Blood 07/30/2023 11:3 2 AM EST 07/30/2023 11:39 AM EST Narrative Resulting Agency Comment Spec In Lab [place] MD CHEMISTRY ORDERABL ES Performing Organization Address City/[facility] Co de Phone Number [facility] [place] [address] * PTH (07/30/2023 11:32 AM EST) Parathyroid Hormone 43 15 - 65 pg/mL [facility] Blood 07/30/2023 11:3 2 AM EST 07/30/2023 11:39 AM EST Narrative Resulting Agency Comment Spec In Lab [place] MD CHEMISTRY ORDERABL ES Performing Organization Address City/[facility]/ZIP Co de Phone Number [facility] [place] [address] * Phosphorus (07/30/2023 11:32 AM EST) Phosphorus 3.5 2.5 - 4.5 mg/dL [facility] Blood 07/30/2023 11:3 2 AM EST 07/30/2023 11:39 AM EST Narrative Resulting Agency Comment Spec In Lab [place] MD CHEMISTRY ORDERABL ES Performing Organization Address [facility] de Phone Number [facility] [place] [address] * Magnesium (07/30/2023 11:32 AM EST) Magnesium 0.82 0.69 - 1.07 mmol/L [facility] Blood 07/30/2023 11:3 2 AM EST 07/30/2023 11:39 AM EST Narrative Resulting Agency Comment Spec In Lab [place] MD CHEMISTRY ORDERABL ES Performing Organization Address [facility] de Phone Number [facility] [place] [address] * Vitamin D, 25-Hydroxy (07/30/2023 11:32 AM EST) Vitamin D Total 25 OH 59 21 - 100 ng/mL [facility] Vit D Interp Sufficient [facility] Blood 07/30/2023 11:3 2 AM EST 07/30/2023 11:39 AM EST Narrative Resulting Agency Comment Spec In Lab [place] MD CHEMISTRY ORDERABL ES Performing Organization Address [facility] Co de Phone Number [facility] [place] [address] * Comprehensive metabolic panel (non-fasting) (07/30/2023 11:32 AM EST) Glucose 98 65 - 199 mg/dL [facility] Comment:Diabetes: >=200 mg/d L plus symptoms Blood Urea Nitrogen 10 8 - 18 mg/dL [facility] Creatinine 0.75 0.70 - 1.20 mg/dL [facility] Sodium 140 135 - 145 mmol/L [facility] Potassium 4.6 3.5 - 5.0 mmol/L [facility] Comment: Please note: ??Patients with WBC >100,000 may have falsely elevated Potassium levels. ??For accurate Potassium quantification in these patients send serum separator tube (gold top) for subsequent determinations. ??Contact the Clinical Chemistry Laboratory if there are any questions. Chloride 101 98 - 107 mmol/L [facility] Carbon Dioxide 28 22 - 31 mmol/L [facility] Anion Gap 11 5 - 15 mmol/L [facility] Calcium 10.1 8.5 - 10.5 mg/dL [facility] Protein, Total 7.4 6.1 - 8.0 g/dL [facility] Albumin 4.5 3.2 - 5.2 g/dL [facility] Aspartate Aminotransferase 22 0 - 30 unit/L [facility] Alanine Aminotransferase 18 0 - 30 unit/L [facility] Alkaline Phosphatase 77 35 - 105 unit/L [facility] Bilirubin, Total 0.4 0.2 - 1.3 mg/dL [facility] Est Glomerular Filtration Rate 83 >=60 mL/min/1. 73 m?? [facility] Comment: This patient's estimated GFR [...] Lab [place] MD CHEMISTRY ORDERABL ES [facility] [place] [address] documented in this encounter Visit Diagnoses Diagnosis Osteopenia, unspecified location documented in this encounter Care Teams Prototype Sewer Relationship Specialty Start Date End Date Guerline Quigley APRN PCP - General Family Medicine 03/18/23 09/29/23 documented as of this encounter
--- OUTSIDE RECORDS SUMMARY | 2024-02-24 15:01 | XMS_ITS | Encounter Summary ---
Author Organization [facility] [place] [address] Care Team Providers Care Leather Goods I Assembler Name Role Phone Dana Cedillo DO Primary Care Provider [phone] Encounter Details Date Type Department Care Team [...] 9:45 AM EDT Office Visit Dermatology at [place] [address] [place] [phone] Emiliano Salinas MD [address], [place]AR[place] [address] documented as of this encounter Visit Diagnoses Not on filedocumented in this encounter Care Teams Leather Goods I Assembler Relationship Specialty Start Date End Date Dana Cedillo DO [address] [place] [address] PCP - General Family Medicine 10/16/23 documented as of this encounter
--- OUTSIDE RECORDS SUMMARY | 2024-02-24 15:01 | XMS_ITS | Encounter Summary ---
Author Organization [facility] [place] [address] Care Team Providers Care Supervisor Detasseling Crew Name Role Phone Guerline Quigley Rodolfo VALDES Primary Care Provider [phone] Encounter Details Date Type Department Care Team (Late st Contact Info) Description 08/06/2023 Refill Cardiology at [address] [place] [address] Liam Noel MD [facility] [address] Social History Tobacco Use Types Packs/Day Years [...] EDT Office Visit Dermatology at [place] [address] [facility] [place] [address] Emiliano Salinas MD [address], BAKARI [place] [address] documented as of this encounter Visit Diagnoses Diagnosis Mixed hyperlipidemia documented in this encounter Care Teams Supervisor Detasseling Crew Relationship Specialty Start Date End Date Guerline Quigley APRN PCP - General Family Medicine 03/18/23 09/29/23 documented as of this encounter
--- OUTSIDE RECORDS SUMMARY | 2024-02-24 15:01 | XMS_ITS | Encounter Summary ---
Author Organization [facility] [place] [address] Care Team Providers Care Software Test Developer Name Role Phone Guerline Quigley APRN Primary Care Provider [phone] Encounter Details Date Type Department Care Team [...] 9:45 AM EDT Office Visit Dermatology at [place] [address] [place] [address] Emiliano Salinas MD [address], [place] [address] documented as of this encounter Visit Diagnoses Not on filedocumented in this encounter Care Teams Software Test Developer Relationship Specialty Start Date End Date Guerline Quigley APRN PCP - General Family Medicine 03/18/23 09/29/23 documented as of this encounter
--- OUTSIDE RECORDS SUMMARY | 2024-02-24 15:01 | XMS_ITS | Clinical Summary ---
Author Organization Formerly [facility], [facility] [place] [address] Care Team Providers Care Mixer Lever Operator Name Role Phone Everardorubio Dana Mery ROCHE Primary Care Provider +1- [phone] Allergies Active Allergy Reactions Criticality Noted Date [...] 10/21/2022 Active fluticasone propionate (Flonase) 50 mcg/actuation [place], Suspension Every 12 hours. 10/17/2020 Ac tive [...] Care Team Description 02/13/2024 Telephone Cardiology at [address] [address] Liam Noel MD 02/08/2024 Refill Cardiology at [address] [address] Liam Noel MD Medication Refill 02/07/2024 Telephone Cardiology at [address] [address] Ashlyn Celis RN 02/06/2024 Travel 02/04/2024 Transcribe Orders Neurosurgery at [facility] [place] [address] Nell Fitch DO 01/28/2024 Orders Only Cardiology at [address] [address] Liam Noel MD Mixed hyperlipidemia 01/23/2024 Telephone Cardiology at [address] [address] Liam Noel MD 01/23/2024 Telephone Cardiology at [address] [address] Liam Noel MD 01/22/2024 4:00 PM EDT TH Visit (TeleHealth) Endocrinology at [place] [phone] Sam Dawson MD Hypercalciuria 01/09/2024 Telephone [place] [address] Raeann Ortega RN 01/09/2024 Telephone Cardiology at [address] [address] Liam Noel MD 11/26/2023 Telephone [place] [address] Raeann Ortega, RN Other from [...] 9:45 AM EDT Office Visit Dermatology at [place] [address] [address] [place] [address] Emiliano Salinas MD [address], BAKARI [place] [address] Health Maintenance Due Date Last Done Comments [...] Whole Body (Generic) (10/18/2023 10:49 AM EDT) [employer] WORKSTATION ID [id number] RAD Anatomical Region Laterality Modality C-spine, Hip [...] BMD measurements and plots are available in [employer] under the imaging tab. Paper copies will be sent to providers without [employer]ighter[employer] access. If you have received this report without the data sheet and do not have access to [employer], please contact Radiology Hotel Baggage Handler at [phone] Saturday thru Saturday 8am-4pm. ? Bone Density Report ? Name: ?Yessenia Luong Age: ? 73 Sex: ? Female Ethnicity: ? White Date of : 1950 Referring Provider: SAM DAWSON Study: Bone densitometry was performed. Model: Xceedium (S/N 707933Y) SNRLabs version 13.6.0.5 Exam Date: October 18, 2023 Accession number: [id number] Bone Density: Region ? BMD ?T-score ??Z-score [...] who have questions please contact the health childcare provider that requested your imaging first. ? Narrative [...] left forearm and left hip using the [employer] Horizon A system. COMPARISON: None FINDINGS: Femoral [...] spine, left forearm and lefthip using the [employer] Horizon A system. COMPARISON: None FINDINGS: Femoral [...] BMD measurements and plots are available in E-Now In Storeunder the imaging tab. Paper copies will be sent to providers without Br[employer] access.If you have received this report without the data sheet and do not haveaccess to ESpiration, please contact Radiology Hotel Baggage Handler at [phone] Saturday thruFriday 8am-4pm. Bone Density Report Name: Yessenia Luong Age: 73 Sex: Female Ethnicity: White Date of : 1950 Referring Provider: SAM DAWSON Study: Bone densitometry was performed. Model: Xceedium (S/N 061971I) SNRLabs version 13.6.0.5 Exam Date: October 18, 2023 Accession number: [id number] Bone Density: Region BMD T-score Z-score AP [...] patients who have questions please contactthe health childcare provider that requested your imaging first. Sam Dawson MD IMG DEXA ORDERABLE S * Comprehensive metabolic panel (non-fasting) (07/30/2023 11:32 AM EST) Glucose 98 65 - 199 mg/dL [facility] Comment:Diabetes: >=200 mg/d L plus symptoms Blood Urea Nitrogen 10 8 - 18 mg/dL [facility] Creatinine 0.75 0.70 - 1.20 mg/dL [facility] Sodium 140 135 - 145 mmol/L [facility] Potassium 4.6 3.5 - 5.0 mmol/L [facility] Comment: Please note: ??Patients with WBC >100,000 may have falsely elevated Potassium levels. ??For accurate Potassium quantification in these patients send serum separator tube (gold top) for subsequent determinations. ??Contact the Clinical Chemistry Laboratory if there are any questions. Chloride 101 98 - 107 mmol/L [facility] Carbon Dioxide 28 22 - 31 mmol/L [facility] Anion Gap 11 5 - 15 mmol/L [facility] Calcium 10.1 8.5 - 10.5 mg/dL [facility] Protein, Total 7.4 6.1 - 8.0 g/dL [facility] Albumin 4.5 3.2 - 5.2 g/dL [facility] Aspartate Aminotransferase 22 0 - 30 unit/L [facility] Alanine Aminotransferase 18 0 - 30 unit/L [facility] Alkaline Phosphatase 77 35 - 105 unit/L [facility] Bilirubin, Total 0.4 0.2 - 1.3 mg/dL [facility] Est Glomerular Filtration Rate 83 >=60 mL/min/1. 73 m?? [facility] Comment: This patient's estimated GFR [...] Lab Sam Dawson MD CHEMISTRY ORDERABL ES [facility] [place] [address] from Last 3 Months or Most Recently Relevant to Health Maintenance Advance Directives * Full Code (Latest Code Status on File) Date Activated Date Inactivated Comments 06/14/2015 4:01 PM 06/15/2015 7:08 PM Question Answer Comments Does patient have capacity to make decision: Yes Care Teams Mixer Lever Operator Relationship Specialty Start Date End Date Dana Cedillo DO [address] [place] [address] PCP - General Family Medicine 10/16/23
--- OUTSIDE RECORDS SUMMARY | 2024-02-24 15:01 | XMS_ITS | Encounter Summary ---
Author Organization [facility] [place] [address] Care Team Providers Care Ticker Installer Name Role Phone Nguyen Danarebecca Ordonez DO Primary Care Provider [phone]- [phone] Encounter Details Date Type Department Care Team (Late st Contact Info) Description 10/18/2023 Telephone [place] [address] Virginia [place] MD [facility] [place] [address] Social History Tobacco Use Types Packs/Day Years [...] 9:45 AM EDT Office Visit Dermatology at [place] [address] [place] [address] Emiliano Salinas MD [address], BAKAR[place] [address] documented as of this encounter Visit Diagnoses Not on filedocumented in this encounter Care Teams Ticker Installer Relationship Specialty Start Date End Date Dana Cedillo DO [address] [place] [address] PCP - General Family Medicine 10/16/23 documented as of this encounter
--- OUTSIDE RECORDS SUMMARY | 2024-02-24 15:01 | XMS_ITS | Encounter Summary ---
Author Organization [facility] [place] [address] Care Team Providers Care Bilingual Elementary School Teacher Name Role Phone Dana Cedillo DO Primary Care Provider [phone]- [phone] Encounter Details Date Type Department Care Team [...] 9:45 AM EDT Office Visit Dermatology at [place] [address] [place] [address] Emiliano Salinas MD [address], BAKAR[place] [address] documented as of this encounter Visit Diagnoses Not on filedocumented in this encounter Care Teams Bilingual [employer] Teacher Relationship Specialty Start Date End Date Dana Cedillo DO [address] [place] [address] PCP - General Family Medicine 10/16/23 documented as of this encounter
--- OUTSIDE RECORDS SUMMARY | 2024-02-24 15:01 | XMS_ITS | Encounter Summary ---
Author Organization [facility] [place] [address] Care Team Providers Care Shuttle Filler Name Role Phone Guerline Quigley KEISHA Primary Care Provider [phone] Encounter Details Date Type Department Care Team (Late st Contact Info) Description 06/17/2023 Telephone Cardiology at [address] [address] Liam Noel MD [facility] [place] [address] Social History Tobacco Use Types Packs/Day Years [...] 10:42 AM EST Liam Noel MD to [facility] Card Nurse If she feels it [...] a few weeks. Please call her @ [phone] documented in this encounter Plan of Treatment Upcoming Encounters Date Type Department Care Team (Late st Contact Info) Description 03/13/2024 9:45 AM EDT Office Visit Dermatology at [address] [place] [address] Emiliano Salinas MD [address] [facility], BAKARI [place] [address] documented as of this encounter Visit Diagnoses Not on filedocumented in this encounter Care Teams Shuttle Filler Relationship Specialty Start Date End Date Guerline Quigley APRN PCP - General Family Medicine 03/18/23 09/29/23 documented as of this encounter
--- OUTSIDE RECORDS SUMMARY | 2024-02-24 15:01 | XMS_ITS | Encounter Summary ---
Author Organization [facility] [place] [address] Care Team Providers Care Store Leader Name Role Phone EverardoDana bergerno Mery ROCHE Primary Care Provider [phone]- [phone] Encounter Details Date Type Department Care Team (Late st Contact Info) Description 02/07/2024 Telephone Cardiology at [address] [address] Ashlyn Celis, RN Social History [...] Nexletol Approved prior auth Reference PA number [id number] documented in this encounter Plan of Treatment Upcoming Encounters Date Type Department Care Team (Late st Contact Info) Description 03/13/2024 9:45 AM EDT Office Visit Dermatology at [place] [address] [facility] [place] [address] Emiliano Salinas MD [address], [place] [address] documented as of this encounter Visit Diagnoses Not on filedocumented in this encounter Care Teams Store Leader Relationship Specialty Start Date End Date Dana Cedillo DO [address] [place] [address] PCP - General Family Medicine 10/16/23 documented as of this encounter
--- OUTSIDE RECORDS SUMMARY | 2024-02-24 15:01 | XMS_ITS | Encounter Summary ---
Author Organization [facility] [place] [address] Care Team Providers Care Assembler Wire Mesh Gate Name Role Phone Dana Cedillo DO Primary Care Provider [phone]- [phone] Encounter Details Date Type Department Care Team (Late st Contact Info) Description 09/30/2023 11:00 AM EDT Office [place] [address] Sam Dawson MD [facility] [place] [address] Pathological fracture of left foot due to [...] and urine test in 1 month at [facility] - once I get the results we will decide how much Ca and vit D to take - DXA scheduling at [facility] [phone] documented in this encounter Progress Notes * [...] [x] 701-900 mg [] 901-1100 mg [] 5996-3478 mg [] 7955-4028 mg [] Above 1500 mg ROS: Constitutional: [...] WITH FOOD fluticasone propionate (Flonase) 50 mcg/actuation [place], Suspension Every 12 hours. 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, boyfriend x [...] 1.07 mmol/L 0.82 Last DXA scan 12/27/2022 ([facility]): Assessment: Yessenia Luong is a 73 [...] bone density scan to be done at [facility] where we can do a TBS score [...] and urine test in 1 month at [facility] Orders Placed This Encounter Procedures DXA Central Spine, Hip, and/or Whole Body (Generic) Calcium, urine, 24 hour Creatinine, urine, 24 hour Vitamin D, 25-Hydroxy PTH Albumin Level Calcium - DXA scan with TBS score to be done at [facility] - once I get the results we [...] 9:45 AM EDT Office Visit Dermatology at [place] [address] [place] [address] Emiliano Salinas MD [address], [place] [address] Scheduled Orders Name Type Priority Associated Diagnoses [...] Whole Body (Generic) (10/18/2023 10:49 AM EDT) [employer] WORKSTATION ID [id number] RAD Anatomical Region Laterality Modality C-spine, Hip [...] BMD measurements and plots are available in [employer]ang[employer] under the imaging tab. Paper copies will be sent to providers without [employer] access. If you have received this report without the data sheet and do not have access to Packet[employer], please contact Radiology Assistant Manager/Embalmer at [phone] Saturday thru Saturday 8am-4pm. ? Bone Density Report ? Name: ?Yessenia Luong Age: ? 73 Sex: ? Female Ethnicity: ? White Date of : 1950 Referring Provider: ASM DAWSON Study: Bone densitometry was performed. Model: [employer] Nova (S/N 842227I) SW version 13.6.0.5 Exam Date: October 18, 2023 Accession number: [id number] Bone Density: Region ? BMD ?T-score ??Z-score [...] who have questions please contact the health human services care specialist that requested your imaging first. ? Electronically signed by: Luna Curtis MD, [facility] ([phone]), at 10/18/2023 1:08 PM Narrative 10/18/2023 1:08 [...] left forearm and left hip using the [employer] Horizon A system. COMPARISON: None FINDINGS: [...] BMD measurements and plots are available in EGuangdong Hengxing Groupunder the imaging tab. Paper copies will be sent to providers without [employer] access.If you have received this report without the data sheet and do not haveaccess to [employer], please contact Radiology Assistant Manager/Embalmer at [phone] Saturday thruFriday 8am-4pm. Bone Density Report Name: Yessenia Luong Age: 73 Sex: Female Ethnicity: White Date of : 1950 Referring Provider: SAM DAWSON Study: Bone densitometry was performed. Model: [employer]q (S/N 261313A) SW version 13.6.0.5 Exam Date: October 18, 2023 Accession number: [id number] Bone Density: Region BMD T-score Z-score AP [...] patients who have questions please contactthe health human services care specialist that requested your imaging first. Electronically signed by: Luna Curtis MD, 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
--- OUTSIDE RECORDS SUMMARY | 2024-02-24 15:01 | XMS_ITS | Encounter Summary ---
Author Organization [facility] Address [address] [place] [address] Care Team Providers Care Belt Knife Feeder Name Role Phone Chantell Sharma CONTRACT ADMINISTRATION SPECIALIST Primary Care Provider [phone] Chantell Sharma CONTRACT ADMINISTRATION SPECIALIST Primary Care Provider [phone] Elier Alvarez MD Unavailable Unavailabl e Chantell Sharma NP Unavailable [phone] Reason for Visit * Reason Onset Date Comments Other 07/21/2015 Encounter Details Date Type Department Care Team (Late st Contact Info) Description 07/21/2015 Telephone [facility] Dermatology 3rd Floor [facility] [address] [place] [address] Isaak Lloyd MD Other Social History Tobacco [...] on filedocumented in this encounter Care Teams Belt Knife Feeder Relationship Specialty Start Date End Date Chantell Sharma NP PCP - General 07/21/15 07/21/15 Chantell Sharma NP PCP - General 07/22/15 03/18/22 Elier Alvarez MD 07/21/15 07/21/15 Chantell Sharma NP 07/22/15 03/18/22 documented as of this encounter
--- OUTSIDE RECORDS SUMMARY | 2024-02-24 15:01 | XMS_ITS | Encounter Summary ---
Author Organization [facility] [place] [address] Care Team Providers Care Rig Builder Name Role Phone Nguyen Danarebecca Ordonez DO Primary Care Provider [phone]- [phone] Encounter Details Date Type Department Care Team (Late st Contact Info) Description 01/23/2024 Telephone Cardiology at [address] [place] [address] Liam Noel MD [facility] [place] [address] Social History Tobacco Use Types Packs/Day Years [...] EDT Office Visit Dermatology at [place] [address] [facility] [place] [address] Emiliano Salinas MD [address] [facility], [place] [address] documented as of this encounter Visit Diagnoses Not on filedocumented in this encounter Care Teams Rig Builder Relationship Specialty Start Date End Date Dana Cedillo DO [address] [place] [address] PCP - General Family Medicine 10/16/23 documented as of this encounter
--- OUTSIDE RECORDS SUMMARY | 2024-02-24 15:01 | XMS_ITS | Encounter Summary ---
Author Organization [facility] [place] [address] Care Team Providers Care Solutions Sales Executive Name Role Phone Dana Cedillo Primary Care Provider [phone]- [phone] Encounter Details Date Type Department Care Team (Late st Contact Info) Description 10/30/2023 Telephone [place] [address] Luna Lazcano RN Social History Tobacco Use [...] 10/30/2023 2:33 PM EDT Copied from CRM #[id number]. Topic: Specialty Dept CRMs - Medication Issues [...] 9:45 AM EDT Office Visit Dermatology at [place] [address] [facility] [place] [address] Emiliano Salinas MD [address], BAKAR[place] [address] documented as of this encounter Visit Diagnoses Not on filedocumented in this encounter Care Teams Solutions Sales Executive Relationship Specialty Start Date End Date Dana Cedillo DO [address] [place] [address] PCP - General Family Medicine 10/16/23 documented as of this encounter
--- OUTSIDE RECORDS SUMMARY | 2024-02-24 15:01 | XMS_ITS | Encounter Summary ---
Author Organization [facility] Address [facility] [place] [address] Care Team Providers Care Linux Unix Engineer Name Role Phone Guerline Quigley Rodolfo VALDES Primary Care Provider [phone] Encounter Details Date Type Department Care Team (Late st Contact Info) Description 07/18/2023 Telephone Cardiology at [address] [address] Liam Noel MD [facility] [address] Social History Tobacco Use Types Packs/Day Years [...] acid [facility] documented in this encounter Plan of Treatment Upcoming Encounters Date Type Department Care Team (Late st Contact Info) Description 03/13/2024 9:45 AM EDT Office Visit Dermatology at [place] [address] [facility] [place] [address] Emiliano Salinas MD [address], MANINDER [place] [address] documented as of this encounter Visit Diagnoses Diagnosis Mixed hyperlipidemia documented in this encounter Care Teams Linux Unix Engineer Relationship Specialty Start Date End Date Guerline Quigley APRN PCP - General Family Medicine 03/18/23 09/29/23 documented as of this encounter
--- OUTSIDE RECORDS SUMMARY | 2024-02-24 15:01 | XMS_ITS | Encounter Summary ---
Author Organization [facility] [place] [address] Care Team Providers Care Franchise Consultant Name Role Phone Guerline Quigley KEISHA Primary Care Provider [phone] Encounter Details Date Type Department Care Team (Late st Contact Info) Description 07/31/2023 [place] [address] Luna Lazcano RN Social History Tobacco Use [...] 07/31/2023 1:50 PM EST Copied from CRM #[id number]. Topic: Specialty Dept CRMs - Medication Issues >> Jul 31, 2023 1:37 PM Maya Muller wrote: Medication Issues Specialist [place] MD Relationship (if other than patient-full name): self Reason for call: Medication Issue (if symptom based used Triage Subtopic) Message/information for the nurse: Patient states she was prescribed Pantoprazole 20 mg and Pfqsuot85 or 20 mg but when she read [...] 9:45 AM EDT Office Visit Dermatology at [address] [place] [address] Emiliano Salinas MD [address], [place] [address] documented as of this encounter Visit Diagnoses Not on filedocumented in this encounter Care Teams Franchise Consultant Relationship Specialty Start Date End Date Guerline Quigley APRN PCP - General Family Medicine 03/18/23 09/29/23 documented as of this encounter
--- OUTSIDE RECORDS SUMMARY | 2024-02-24 15:01 | XMS_ITS | Encounter Summary ---
Author Organization [facility] [place] [address] Care Team Providers Care Hooker Inspector Name Role Phone CésarDana hamm Mery ROCHE Primary Care Provider [phone] Reason for Visit * Reason Comments Medication Refill Encounter Details Date Type Department Care Team (Late st Contact Info) Description 02/08/2024 Refill Cardiology at [address] [address] [facility] [place] [address] Medication Refill Social History Tobacco Use Types [...] 9:45 AM EDT Office Visit Dermatology at [address] [address] Emiliano Salinas MD [address] [place] [address] RD, [place] [address] documented as of this encounter Visit Diagnoses Diagnosis Mixed hyperlipidemia documented in this encounter Care Teams Hooker Inspector Relationship Specialty Start Date End Date Dana Cedillo DO [address] [place] [address] PCP - General Family Medicine 10/16/23 documented as of this encounter
--- OUTSIDE RECORDS SUMMARY | 2024-02-24 15:01 | XMS_ITS | Encounter Summary ---
Author Organization [facility] Address [address] [place] [address] Care Team Providers Care Assessment Clinician Name Role Phone Chantell Sharma NP Primary Care Provider [phone] Chantell Sharma NP Unavailable Encounter Details Date Type Department Care Team (Late st Contact Info) Description 11/04/2020 Lab Requisition [facility] Pathology & Laboratory Medicine - [address] [address] Outr Resulting Lab, Provider Social History Tobacco [...] C Antibody Negative Negative 11/07/2020 10:56 EDT [facility] Blood VENOUS BLOOD / Unknown 11/04/2020 14:37 EDT 11/04/2020 21:45 EDT Provider Outr Resulting Lab CHEMISTRY & BLOOD GAS ORDERABLES [facility] [address] [place] [address] documented in this encounter Visit Diagnoses Not on filedocumented in this encounter Care Teams Assessment Clinician Relationship Specialty Start Date End Date Chantell Sharma NP PCP - General 07/22/15 03/18/22 Chantell Sharma NP 07/22/15 03/18/22 documented as of this encounter
--- OUTSIDE RECORDS SUMMARY | 2024-02-24 15:01 | XMS_ITS | Encounter Summary ---
Author Organization [facility] Address [facility] [place] [address] Care Team Providers Care Retail Route Supervisor Name Role Phone Dana Cedillo DO Primary Care Provider +1- [phone] Encounter Details Date Type Department Care Team (Latest Contact Info) Description 10/18/2023 9:58 AM EDT - 10/18/2023 11:59 PM EDT Hospital Encounter Mammography/[place] [address] Sam Dawson MD [facility] [place] [address] Pathological fracture of left foot due to [...] FOOD 10/21/2022 fluticasone propionate (Flonase) 50 mcg/actuation [place], Suspension Every 12 hours. 10/17/2020 meloxicam (Mobic) [...] 9:45 AM EDT Office Visit Dermatology at [place] [address] [facility] [place] [address] Emiliano Salinas MD [address] [facility] [address], MANINDER [place] [address] documented as of this encounter Procedures Procedure Name Priority Date/Time Associated Diagnosis Comments DXA CENTRAL SPINE, HIP, AND/OR WHOLE BODY (GENERIC) Routine 10/18/2023 10:49 AM EDT 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, subsequent encounter documented in this encounter Results * DXA Central Spine, Hip, and/or Whole Body (Generic) (10/18/2023 10:49 AM EDT) [employer] WORKSTATION ID [id number] [facility][NOTE 3] Anatomical Region Laterality Modality C-spine, Hip N/A [...] sheet and do not have access to [employer], please contact Radiology Behavioral Scientist at [phone] Saturday thru Saturday 8am-4pm. ? Bone Density Report ? Name: ?Yessenia Luong Age: ? 73 Sex: ? Female Ethnicity: ? White Date of : 1950 Referring Provider: SAM DAWSON Study: Bone densitometry was performed. Model: TroopSwap A (S/N [id number]) SW version 13.6.0.5 Exam Date: October 18, 2023 Accession number: [id number] Bone Density: Region ? BMD ?T-score ??Z-score [...] who have questions please contact the health post acute care registered nurse that requested your imaging first. ? Electronically signed by: Luna Curtis MD, [facility] ([phone]), at 10/18/2023 1:08 PM Narrative 10/18/2023 1:08 [...] BMD measurements and plots are available in [employer]under the imaging tab. Paper copies will be sent to providers without [employer] access.If you have received this report without the data sheet and do not haveaccess to [employer], please contact Radiology Behavioral Scientist at [phone] Saturday 8am-4pm. Bone Density Report Name: Yessenia Luong Age: 73 Sex: Female Ethnicity: White Date of : 1950 Referring Provider: SAM DAWSON Study: Bone densitometry was performed. Model: Malachi Bhatt (S/N [id number]) version 13.6.0.5 Exam Date: October 18, 2023 Accession number: [id number] Bone Density: Region BMD T-score Z-score AP [...] patients who have questions please contactthe health post acute care registered nurse that requested your imaging first. Electronically signed by: Luna Curtis MD, [facility]([phone]), at 10/18/2023 1:08 PM Sam Dawson MD IMG DEXA ORDERABLE S documented in this encounter Visit Diagnoses Diagnosis 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, subsequent encounter documented in this encounter Care Teams Retail Route Supervisor Relationship Specialty Start Date End Date Dana Cedillo DO [address] [place] [address] PCP - General Family Medicine 10/16/23 documented as of this encounter
--- OUTSIDE RECORDS SUMMARY | 2024-02-24 15:01 | XMS_ITS | Encounter Summary ---
[place] [address] Care Team Providers Care Waffle Machine Operator Name Role Phone Guerline Quigley TIRE AND TUBE REPAIRER Primary Care Provider [phone] Encounter Details Date Type Department Care Team (Late st Contact Info) Description 08/02/2023 [place] [address] Luna Lazcano RN Social History Tobacco Use [...] 08/02/2023 10:43 AM EST Copied from CRM #[id number]. Topic: Specialty Dept CRMs - Generic Call [...] will be ordered requesting to send to [facility] - [address] [place] [address] phone -[phone], unable to provide fax. >> Aug 02, 2023 10:41 AM September R wrote: Patient called back in to let the office know her PCP is sending the T3 lab over to the office documented in this encounter Plan of Treatment Upcoming Encounters Date Type Department Care Team (Late st Contact Info) Description 03/13/2024 9:45 AM EDT Office Visit Dermatology at [place] [address] [facility] [place] [address] Emiliano Salinas MD [address], BAKARI [place] [address] documented as of this encounter Visit Diagnoses Not on filedocumented in this encounter Care Teams Waffle Machine Operator Relationship Specialty Start Date End Date Guerline Quigley APRN PCP - General Family Medicine 03/18/23 09/29/23 documented as of this encounter
--- OUTSIDE RECORDS SUMMARY | 2024-02-24 15:01 | XMS_ITS | Encounter Summary ---
Author Organization [facility] Address [address] [place] [address] Care Team Providers Care Certified Surgical Technician Name Role Phone Chantell Sharma NP Primary Care Provider [phone] Chantell Sharma SENIOR ENGINEERING TECH Unavailable [phone] Encounter Details Date Type Department Care Team (Late st Contact Info) Description 06/19/2019 Lab [facility] - [address] [address] Unknown, Provider, Social History Tobacco Use Types [...] ova and parasites seen. 06/22/2019 11:21 EST [facility] Feces 06/19/2019 8:00 EST 06/19/2019 21:45 EST Narrative [facility] - 06/22/2019 11:21 EST (If Cryptosporidium, Cyclospora, or Microsporidium are suspected, specific tests must be requested.) Single negative specimen does not rule out the possibility of a parasitic infection. Provider Unknown MICROBIOLOGY - GIRMA AZEVEDO ORDERABLES [facility] [address] [place] [address] documented in this encounter Visit Diagnoses Not on filedocumented in this encounter Care Teams Certified Surgical Technician Relationship Specialty Start Date End Date Chantell Sharma NP PCP - General 07/22/15 03/18/22 Chantell Sharma NP 07/22/15 03/18/22 documented as of this encounter
--- OUTSIDE RECORDS SUMMARY | 2024-02-24 15:01 | XMS_ITS | Encounter Summary ---
Author Organization [facility] [place] [address] Care Team Providers Care Fine Craft Artist Name Role Phone Dana Cedillo DO Primary Care Provider [phone] Encounter Details Date Type Department Care Team (Late st Contact Info) Description 02/13/2024 Telephone Cardiology at [address] [place] [address] Liam Noel MD [facility] [place] [address] Social History Tobacco Use Types Packs/Day Years [...] 9:45 AM EDT Office Visit Dermatology at [place] [address] [facility] [place] [address] Emiliano Salinas MD [address], BAKARI [place] [address] documented as of this encounter Visit Diagnoses Not on filedocumented in this encounter Care Teams Fine Craft Artist Relationship Specialty Start Date End Date Dana Cedillo DO [address] [place] [address] PCP - General Family Medicine 10/16/23 documented as of this encounter
--- OUTSIDE RECORDS SUMMARY | 2024-02-24 15:01 | XMS_ITS | Encounter Summary ---
Author Organization [facility] Address [facility] [place] [address] Care Team Providers Care Business Info Consultant Name Role Phone Guerline Quigley Rodolfo VALDES Primary Care Provider [phone] Reason for Visit * Reason Onset Date Comments Abnormal Bruising 05/20/2023 Encounter Details Date Type Department Care Team (Late st Contact Info) Description 05/20/2023 Telephone Cardiology at [address] [address] Liam Noel MD [facility] [place] [address] Abnormal Bruising Social History Tobacco Use Types [...] evaluated by a doctor. Call back to [phone] to ask for a nurse if you need to discuss it further. * Telephone Encounter - KerrieChantell Jena - 05/20/2023 9:10 AM EST Patient called because her left foot swelled on the top and got black and blue. She said she looked up online and clogged arteries can do that. Please call her back @ [phone] documented in this encounter Plan of Treatment Upcoming Encounters Date Type Department Care Team (Late st Contact Info) Description 03/13/2024 9:45 AM EDT Office Visit Dermatology at [place] [address] [facility] [place] [address] Emiliano Salinas MD [address] [facility], BAKARI [place] [address] documented as of this encounter Visit Diagnoses Not on filedocumented in this encounter Care Teams Business Info Consultant Relationship Specialty Start Date End Date Guerline Quigley APRN PCP - General Family Medicine 03/18/23 09/29/23 documented as of this encounter
--- OUTSIDE RECORDS SUMMARY | 2024-02-24 15:01 | XMS_ITS | Encounter Summary ---
Author Organization [facility] [place] [address] Care Team Providers Care Electric Well Logging Operator Name Role Phone Guerline Quigley Rodolfo VALDES Primary Care Provider [phone] Encounter Details Date Type Department Care Team (Late st Contact Info) Description 09/30/2023 Telephone Cardiology at [address] [place] [address] Liam Noel MD [facility] [place] [address] Social History Tobacco Use Types Packs/Day Years [...] 9:45 AM EDT Office Visit Dermatology at [place] [address] [facility] [place] [address] Emiliano Salinas MD [address], MANINDER [place] [address] documented as of this encounter Visit Diagnoses Not on filedocumented in this encounter Care Teams Electric Well Logging Operator Relationship Specialty Start Date End Date Guerline Quigley APRN PCP - General Family Medicine 09/30/23 10/15/23 documented as of this encounter
--- OUTSIDE RECORDS SUMMARY | 2024-02-24 15:01 | XMS_ITS | Encounter Summary ---
Author Organization [facility] [place] [address] Care Team Providers Care Slip Mixer Name Role Phone Dana Cedillo DO Primary Care Provider [phone] Encounter Details Date Type Department Care Team (Late st Contact Info) Description 01/23/2024 Telephone Cardiology at [address] [place] [address] Liam Noel MD [facility] [place] [address] Social History Tobacco Use Types Packs/Day Years [...] Per Yessenia she is seeing a[facility]ician [facility] for her Lyme disease and she [...] 9:45 AM EDT Office Visit Dermatology at [place] [address] [facility] [place] [address] Emiliano Salinas MD [address], [place] [address] documented as of this encounter Visit Diagnoses Not on filedocumented in this encounter Care Teams Slip Mixer Relationship Specialty Start Date End Date Dana Cedillo DO [address] [place] [address] PCP - General Family Medicine 10/16/23 documented as of this encounter
--- OUTSIDE RECORDS SUMMARY | 2024-02-24 15:01 | XMS_ITS | Encounter Summary ---
Author Organization [facility] [place] [address] Care Team Providers Care Vegetable Sorter Name Role Phone Guerline Quigley KEISHA Primary Care Provider [phone] Encounter Details Date Type Department Care Team (Late st Contact Info) Description 08/15/2023 [place] [address] Virginia Everett MD [facility] [place] [address] Social History Tobacco Use Types Packs/Day Years [...] 9:45 AM EDT Office Visit Dermatology at [place] [address] [facility] [place] [address] Emiliano Salinas MD [address] [facility] [address] [address], BAKARI [place] [address] documented as of this encounter Visit Diagnoses Not on filedocumented in this encounter Care Teams Vegetable Sorter Relationship Specialty Start Date End Date Guerline Quigley APRN PCP - General Family Medicine 03/18/23 09/29/23 documented as of this encounter
--- OUTSIDE RECORDS SUMMARY | 2024-02-24 15:01 | XMS_ITS | Encounter Summary ---
Author Organization [facility] [place] [address] Care Team Providers Care Technology Trainer Name Role Phone Dana Cedillo Primary Care Provider [phone] Encounter Details Date Type Department Care Team (Late st Contact Info) Description 01/09/2024 Telephone [place] [address] Raeann Ortega, RN Social History Tobacco Use [...] AM EDT Office Visit Dermatology at [address] [place] [address] Emiliano Salinas MD [address], BAKAR[place] [address] documented as of this encounter Visit Diagnoses Not on filedocumented in this encounter Care Teams Technology Trainer Relationship Specialty Start Date End Date Dana Cedillo DO [address] [place] [address] PCP - General Family Medicine 10/16/23 documented as of this encounter
--- OUTSIDE RECORDS SUMMARY | 2024-02-24 15:01 | XMS_ITS | Encounter Summary ---
Author Organization [facility] [place] [address] Care Team Providers Care Warranty Clerk Name Role Phone Guerline Quigley KEISHA Primary Care Provider [phone] Encounter Details Date Type Department Care Team (Late st Contact Info) Description 06/19/2023 Orders Only Cardiology at [address] [place] [address] Liam Noel MD [facility] [place] [address] Mixed hyperlipidemia; Chronic urticaria; Hypothyroidism, unspecified type [...] 9:45 AM EDT Office Visit Dermatology at [address] [place] [address] Emiliano Salinas MD [address] [facility] [address], [place] [address] documented as of this encounter Visit Diagnoses Diagnosis Mixed hyperlipidemia Chronic urticaria Other specified urticaria Hypothyroidism, unspecified type documented in this encounter Care Teams Warranty Clerk Relationship Specialty Start Date End Date Guerline Quigley APRN PCP - General Family Medicine 03/18/23 09/29/23 documented as of this encounter
--- OUTSIDE RECORDS SUMMARY | 2024-02-24 15:01 | XMS_ITS | Encounter Summary ---
Author Organization [facility] [place] [address] Care Team Providers Care Air Analysis Technician Name Role Phone Guerline Quigley CURING FINISHER Primary Care Provider [phone] Encounter Details Date Type Department Care Team (Late st Contact Info) Description 03/18/2023 External Results Cardiology at [address] [address] Ashlyn Celis, RN Social History [...] 9:45 AM EDT Office Visit Dermatology at [address] [address] Emiliano Salinas MD [address] [facility], [facility] [place] [address] documented as of this encounter Procedures Procedure Name Priority Date/Time Associated Diagnosis Comments LIPID EXTERNAL LAB PANEL Routine 03/14/2023 10:00 AM EDT documented in this encounter Results * Lipid External Lab Panel (03/14/2023 10:00 AM EDT) Cholesterol, Total 280 [facility] Triglyceride 100 [facility] HDL Cholesterol 74 [facility] LDL Cholesterol 186.8 [facility] 03/14/2023 10:0 0 AM EDT Historical Provider EXTERNAL LAB HERMELINDA CURTIS [facility] [address] [place] [address], [facility] [phone] documented in this encounter Visit Diagnoses Not on filedocumented in this encounter Care Teams Air Analysis Technician Relationship Specialty Start Date End Date Guerline Quigley, CURING FINISHER PCP - General Family Medicine 03/18/23 09/29/23 documented as of this encounter
--- OUTSIDE RECORDS SUMMARY | 2024-02-24 15:01 | XMS_ITS | Encounter Summary ---
Author Organization [facility] [place] [address] Care Team Providers Care Draw Bench Operator Name Role Phone Guerline Quigley APRN Primary Care Provider [phone] Encounter Details Date Type Department Care Team [...] 9:45 AM EDT Office Visit Dermatology at [place] [address] [place] [address] Emiliano Salinas MD [address], [place] [address] documented as of this encounter Visit Diagnoses Not on filedocumented in this encounter Care Teams Draw Bench Operator Relationship Specialty Start Date End Date Guerline Quigley APRN PCP - General Family Medicine 03/18/23 09/29/23 documented as of this encounter
--- OUTSIDE RECORDS SUMMARY | 2024-02-24 15:01 | XMS_ITS | Encounter Summary ---
Author Organization [facility] [place] [address] Care Team Providers Care Firer Retort Name Role Phone Dana Cedillo DO Primary Care Provider [phone]- [phone] Encounter Details Date Type Department Care Team [...] 9:45 AM EDT Office Visit Dermatology at [place] [address] [facility] [place] [address] Emiliano Salinas MD [address] [facility], BAKARI [place] [address] documented as of this encounter Visit Diagnoses Not on filedocumented in this encounter Care Teams Firer Retort Relationship Specialty Start Date End Date Dana Cedillo DO [address] [place] [address] PCP - General Family Medicine 10/16/23 documented as of this encounter
--- OUTSIDE RECORDS SUMMARY | 2024-02-24 15:01 | XMS_ITS | Encounter Summary ---
Author Organization [facility] [place] [address] Care Team Providers Care Computational Physicist Name Role Phone Dana Cedillo Primary Care Provider [phone] Encounter Details Date Type Department Care Team (Late st Contact Info) Description 01/28/2024 Orders Only Cardiology at [address] [place] [address] Liam Noel MD [facility] [place] [address] Mixed hyperlipidemia Social History Tobacco Use Types [...] AM EDT Office Visit Dermatology at [address] [place] [address] Emiliano Salinas MD [address], [place] [address] Scheduled Orders Name Type Priority Associated Diagnoses Orde r Schedule Lipid Panel (Reflex Direct LDL) Lab Routine Mixed hyperlipidemia Expected: 01/28/2024, Expires: 01/27/2025 Uric acid Lab Routine Mixed hyperlipidemia Expected: 01/28/2024, Expires: 07/29/2024 documented as of this encounter Visit Diagnoses Diagnosis Mixed hyperlipidemia documented in this encounter Care Teams Computational Physicist Relationship Specialty Start Date End Date Dana Cedillo DO [address] [facility] [address] PCP - General Family Medicine 10/16/23 documented as of this encounter
--- OUTSIDE RECORDS SUMMARY | 2024-02-24 15:01 | XMS_ITS | Encounter Summary ---
Author Organization [facility] [place] [address] Care Team Providers Care Professor Of Forestry Name Role Phone Nguyen Danarebecca Ordonez DO Primary Care Provider [phone]- [phone] Encounter Details Date Type Department Care Team (Late st Contact Info) Description 01/22/2024 4:00 PM EDT TH Visit (TeleHealth) [place] [address] Virginia Everett MD [facility] [place] [address] Hypercalciuria Social History Tobacco Use Types Packs/Day [...] show osteoporosis. I repeated DXA scan at [facility] and it showed normalBMD confirmed by TBS [...] [x] 701-900 mg [] 901-1100 mg [] 9652-1954 mg [] 4433-7627 mg [] Above 1500 mg ROS: Constitutional: [...] WITH FOOD fluticasone propionate (Flonase) 50 mcg/actuation [place], Suspension Every 12 hours. 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 Social [...] scan with TBS score DXA scan 12/27/2022 ([facility]): Assessment: Yessenia Luong is a 73 y.o. female with PMH of HLD, THERESA, OA, asthma, hypothyroidism, osteopenia and unprovoked, non-traumatic left 2nd metatarsal fracture. Her DXA scan from 12/2022 showed osteopenia but repeated DXA scan done at [facility] with TBS scoring it was confirmed she [...] Level - labs to be sent to [place] - continue vit D - not to [...] AM EDT Office Visit Dermatology at [place] [address] [facility] [place] [address] Emiliano Salinas MD [address] [facility] [address] [address], BAKARI [place] [address] Scheduled Orders Name Type Priority Associated Diagnoses Orde r Schedule PTH Lab Routine Hypercalciuria Expected: 05/02/2024 (Approximate), Expires: 01/30/2025 Calcium Lab Routine Hypercalciuria Expected: 05/02/2024 (Approximate), Expires: 01/30/2025 Albumin Level Lab Routine Hypercalciuria Expected: 05/02/2024, Expires: 11/01/2024 documented as of this encounter Visit Diagnoses Diagnosis Hypercalciuria Unspecified disorders of calcium metabolism documented in this encounter Care Teams Professor Of Forestry Relationship Specialty Start Date End Date Dana Cedillo DO [address] [place] [address] PCP - General Family Medicine 10/16/23 documented as of this encounter
--- OUTSIDE RECORDS SUMMARY | 2024-02-24 15:01 | XMS_ITS | Encounter Summary ---
Author Organization [facility] Address [address] [place] [address] Care Team Providers Care Director Of Retail Name Role Phone Unavailable Primary Care Provider Unavailabl e Encounter Details Date Type Department Care Team (Late st Contact Info) Description 04/09/2002 Results Only [facility] [address] [place] [address] Neisha Schulte, FIELD HAULER [address] [place] [address] Social History Tobacco Use Types [...] ? YESSENIA LUONG ? Accession #: ? [id number] : ? 1950 (Age: 52) ??F ?Collect Date: ? 04/09/2002 Location: ? [facility] ? Receive Date: ? 04/13/2002 Provider: ?NEISHA SCHULTE FIELD HAULER Copy to: ? Specimen/Source: ?ThinPrep Pap Test, [...] Report MARTHA THOMPSON 04/09/2002 04/13/2002 Neisha Schulte FIELD HAULER PATHOLOGY ORDERABLE S [facility] [address] [place] [address] documented in this encounter Visit Diagnoses Not on filedocumented in this encounter
--- OUTSIDE RECORDS SUMMARY | 2024-02-24 15:01 | XMS_ITS | Encounter Summary ---
Author Organization [facility] [place] [address] Care Team Providers Care Duplicate Maker Name Role Phone Guerline Quigley Rodolfo VALDES Primary Care Provider [phone] Encounter Details Date Type Department Care Team (Late st Contact Info) Description 07/16/2023 Telephone Cardiology at [address] [place] [address] Liam Noel MD [facility] [place] [address] Social History Tobacco Use Types Packs/Day Years [...] due malaise and brain fog Current plan: making department preparer will treat her osteopenia with a new [...] the medication? Please call her back @ [phone] documented in this encounter Plan of Treatment Upcoming Encounters Date Type Department Care Team (Late st Contact Info) Description 03/13/2024 9:45 AM EDT Office Visit Dermatology at [place] [address] [facility] [place] [address] Emiliano Salinas MD [address], BAKARI [place] [address] documented as of this encounter Visit Diagnoses Not on filedocumented in this encounter Care Teams Duplicate Maker Relationship Specialty Start Date End Date Guerline Quigley APRN PCP - General Family Medicine 03/18/23 09/29/23 documented as of this encounter
--- OUTSIDE RECORDS SUMMARY | 2024-02-24 15:01 | XMS_ITS | Encounter Summary ---
Author Organization [facility] Address [address] [place] [address] Care Team Providers Care Account Receivable Clerk Name Role Phone Unavailable Primary Care Provider Unavailabl e Encounter Details Date Type Department Care Team (Late st Contact Info) Description 09/12/2005 Results Only [facility] conversion [address] [place] [address] Neisha Castaneda MD [address] [place] [address] [place] [address] Social History Tobacco Use Types Packs/Day Years [...] ? YESSENIA LUONG ? Accession #: ? [id number] : ? 1950 (Age: 55) ??F ?Collect Date: ? 09/12/2005 Location: ? [facility] ? Receive Date: ? 09/13/2005 Provider: ?NEISHA CASTANEDA MD Copy to: ? Specimen/Source: ?ThinPrep Pap Test, Cervix/Endocervix, processed on swiftQueue ThinPrep Imaging System, with manual evaluation Last [...] Castaneda MD PATHOLOGY ORDERABLES Performing Organization Address City/State/[facility] Co de Phone Number MARTHA THOMPSON [address] [place] [address] documented in this encounter Visit Diagnoses Not on filedocumented in this encounter
--- OUTSIDE RECORDS SUMMARY | 2024-02-24 15:01 | XMS_ITS | Encounter Summary ---
[place] [address] Care Team Providers Care Landscape Foreman Name Role Phone CésarDana hamm Mery ROCHE Primary Care Provider [phone] Encounter Details Date Type Department Care Team (Late st Contact Info) Description 11/05/2023 Telephone [place] [address] Raeann Ortega RN Social History Tobacco Use [...] - 11/05/2023 12:03 PM EDT Copied from [facility] #[id number]. Topic: Specialty Dept CRMs - Medication Issues [...] 9:45 AM EDT Office Visit Dermatology at [place] [address] [facility] [place] [address] Emiliano Salinas MD [address], [place] [address] documented as of this encounter Visit Diagnoses Not on filedocumented in this encounter Care Teams Landscape Foreman Relationship Specialty Start Date End Date Dana Cedillo DO [address] [place] [address] PCP - General Family Medicine 10/16/23 documented as of this encounter
--- OUTSIDE RECORDS SUMMARY | 2024-02-24 15:01 | XMS_ITS | Encounter Summary ---
Author Organization [facility] [place] [address] Care Team Providers Care Temperer Name Role Phone Guerline Quigley APRN Primary Care Provider [phone] Encounter Details Date Type Department Care Team [...] 9:45 AM EDT Office Visit Dermatology at [place] [address] [facility] [address] Emiliano Salinas MD [address], [place] [address] documented as of this encounter Visit Diagnoses Not on filedocumented in this encounter Care Teams Temperer Relationship Specialty Start Date End Date Guerline Quigley APRN PCP - General Family Medicine 03/18/23 09/29/23 documented as of this encounter
--- OUTSIDE RECORDS SUMMARY | 2024-02-24 15:01 | XMS_ITS | Encounter Summary ---
Author Organization [facility] [place] [address] Care Team Providers Care Cupola Melter Helper Name Role Phone CésarDana hamm Mery ROCHE Primary Care Provider [phone] Encounter Details Date Type Department Care Team (Late st Contact Info) Description 02/04/2024 Transcribe Orders Neurosurgery at [facility] [address] [place] [address] Nell Fitch 580 [facility] [address] [place] [address] Social History Tobacco Use Types Packs/Day Years [...] AM EDT Office Visit Dermatology at [address] [place] [address] Emiliano Salinas MD [address], [place] [address] documented as of this encounter Visit Diagnoses Not on filedocumented in this encounter Care Teams Cupola Melter Helper Relationship Specialty Start Date End Date Dana Cedillo DO [address] [place] [address] PCP - General Family Medicine 10/16/23 documented as of this encounter
--- OUTSIDE RECORDS SUMMARY | 2024-02-24 15:01 | XMS_ITS | Encounter Summary ---
Author Organization [facility] [place] [address] Care Team Providers Care Wood Pole Treater Name Role Phone Guerline Quigley Rodolfo VALDES Primary Care Provider [phone] Encounter Details Date Type Department Care Team (Late st Contact Info) Description 05/15/2023 Telephone Cardiology at [address] [place] [address] Liam Noel MD [facility] [place] [address] Social History Tobacco Use Types Packs/Day Years [...] 9:45 AM EDT Office Visit Dermatology at [place] [address] [facility] [place] [address] Emiliano Salinas MD [address], MANINDER [place] [address] documented as of this encounter Visit Diagnoses Diagnosis Mixed hyperlipidemia documented in this encounter Care Teams Wood Pole Treater Relationship Specialty Start Date End Date Guerline Quigley APRN PCP - General Family Medicine 03/18/23 09/29/23 documented as of this encounter
--- OUTSIDE RECORDS SUMMARY | 2024-02-24 15:01 | XMS_ITS | Encounter Summary ---
Author Organization [facility] Address [facility] [place] [address] Care Team Providers Care Manager Business Management Name Role Phone Guerline Quigley Rodolfo VALDES Primary Care Provider [phone] Reason for Visit * Reason Comments Hyperlipidemia Encounter Details Date Type Department Care Team (Late st Contact Info) Description 03/18/2023 3:00 PM EDT Office Visit Cardiology at [address] [address] Liam Noel MD [facility] [address] Mixed hyperlipidemia Social History Tobacco Use Types [...] WEEK DIRECTED fluticasone propionate (Flonase) 50 mcg/actuation [place], Suspension EVERY 12 HOURS icosapent ethyL (VASCEPA) [...] without use of accessory muscles Labs 03/2023 ([facility]) Uric acid 6.0 TSH 1.62 [...] 9:45 AM EDT Office Visit Dermatology at [place] [address] [facility] [place] [address] Emiliano Salinas MD [address] [facility], BAKARI [place] [address] documented as of this encounter Visit Diagnoses Diagnosis Mixed hyperlipidemia documented in this encounter Care Teams Manager Business Management Relationship Specialty Start Date End Date Guerline Quigley APRN PCP - General Family Medicine 03/18/23 09/29/23 documented as of this encounter
--- OUTSIDE RECORDS SUMMARY | 2024-02-24 15:01 | XMS_ITS | Encounter Summary ---
Author Organization [facility] [place] [address] Care Team Providers Care Airport 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 Name Role Phone Guerline Quigley KEISAH Primary Care Provider [phone] Encounter Details Date Type Department Care Team (Late st Contact Info) Description 09/30/2023 Orders Only Cardiology at [address] [place] [address] Liam Noel MD [facility] [place] [address] Mixed hyperlipidemia Social History Tobacco Use Types [...] AM EDT Office Visit Dermatology at [address] [place] [address] Emiliano Salinas MD [address], [place] [address] documented as of this encounter Visit Diagnoses Diagnosis Mixed hyperlipidemia documented in this encounter Care Teams Airport 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 Relationship Specialty Start Date End Date Guerline Quigley APRN PCP - General Family Medicine 09/30/23 10/15/23 documented as of this encounter
--- OUTSIDE RECORDS SUMMARY | 2024-02-24 15:01 | XMS_ITS | Encounter Summary ---
[place] [address] Care Team Providers Care Welder Journeyman Name Role Phone Dana Cedillo DO Primary Care Provider [phone] Reason for Visit * Reason Onset Date Comments Other 11/26/2023 Encounter Details Date Type Department Care Team (Late st Contact Info) Description 11/26/2023 Telephone [place] [address] Raeann Ortega, RN Other Social History Tobacco [...] 11/26/2023 9:30 AM EDT Copied from [facility] #[id number]. Topic: Specialty Dept CRMs - Test Results >> Nov 25, 2023 10:00 AM Susan Muller wrote: Test Results Request Specialist: Virginia Eevrett MD Relationship (if other than patient-full name): Self Ordering Provider: Virginia Everett MD Type of Test: 24 Urine test Date of Test: 11/18/23 Where Was This Test Performed: [facility] Patient will be available after 1pm today. Please call back to discuss. documented in this encounter Plan of Treatment Upcoming Encounters Date Type Department Care Team (Late st Contact Info) Description 03/13/2024 9:45 AM EDT Office Visit Dermatology at [place] [address] [place] [address] Emiliano Salinas MD [address], [place] [address] documented as of this encounter Visit Diagnoses Not on filedocumented in this encounter Care Teams Welder Journeyman Relationship Specialty Start Date End Date Dana Cedillo DO [address] [place] [address] PCP - General Family Medicine 10/16/23 documented as of this encounter
--- OUTSIDE RECORDS SUMMARY | 2024-02-24 15:01 | XMS_ITS | Encounter Summary ---
Author Organization [facility] [place] [address] Care Team Providers Care Mine Utility Operator Name Role Phone Guerline Quigley PRESS TENDER [employer] Primary Care Provider [phone] Encounter Details Date Type Department Care Team (Late st Contact Info) Description 07/30/2023 Telephone [place] [address] Luna Lazcano RN Social History Tobacco Use [...] 1:48 PM EST Copied from [facility] #[id number]. Topic: Specialty Dept CRMs - Generic Call [...] 9:45 AM EDT Office Visit Dermatology at [place] [address] [facility] [place] [address] Emiliano Salinas MD 580 [facility], BAKARI [place] [address] documented as of this encounter Visit Diagnoses Not on filedocumented in this encounter Care Teams Mine Utility Operator Relationship Specialty Start Date End Date Guerline Quigley APRN PCP - General Family Medicine 03/18/23 09/29/23 documented as of this encounter
--- OUTSIDE RECORDS SUMMARY | 2024-02-24 15:01 | XMS_ITS | Encounter Summary ---
Author Organization [facility] Address [address] [place] [address] Care Team Providers Care Stereoplotter Operator Name Role Phone Chantell Sharma NP Primary Care Provider [phone] Elier Alvarez MD Unavailable Unavailabl e Reason for Visit * Reason Onset Date Comments Other 07/21/2015 Encounter Details Date Type Department Care Team (Late st Contact Info) Description 07/21/2015 Telephone [facility] Dermatology 3rd Floor [facility] [address] [place] [address] Isaak Lloyd MD Other Social History Tobacco [...] on filedocumented in this encounter Care Teams Stereoplotter Operator Relationship Specialty Start Date End Date Chantell Sharma NP PCP - General 07/21/15 07/21/15 Elier Alvarez MD 07/21/15 07/21/15 documented as of this encounter
--- OUTSIDE RECORDS SUMMARY | 2024-02-24 15:02 | XMS_ITS | Encounter Summary ---
Author Organization [facility] [place] [address] Care Team Providers Care Casing Inspector Name Role Phone Veronica Barrios APRN Primary [...] 9:45 AM EDT Office Visit Dermatology at [place] [address] [place] [address] Emiliano Salinas MD [address], BAKARI [place] [address] documented as of this encounter Visit Diagnoses Not on filedocumented in this encounter Care Teams Casing Inspector Relationship Specialty Start Date End Date Veronica Barrios APRN [address] [place] [address] PCP - General Family Medicine 08/27/22 03/17/23 documented as of this encounter
--- OUTSIDE RECORDS SUMMARY | 2024-02-24 15:02 | XMS_ITS | Encounter Summary ---
Author Organization [facility] [place]rario [place] [address] Care Team Providers Care Osteopathy Doctor Name Role Phone Veronica Barrios APRN Primary Care Provider [phone] Encounter Details Date Type Department Care Team [...] 9:45 AM EDT Office Visit Dermatology at [place] [address] [facility] [place] [address] Emiliano Salinas MD [address], BAKARI [place] [address] documented as of this encounter Visit Diagnoses Not on filedocumented in this encounter Care Teams Osteopathy Doctor Relationship Specialty Start Date End Date Veronica Barrios APRN [address] [place] [address] PCP - General Family Medicine 08/27/22 03/17/23 documented as of this encounter
--- OUTSIDE RECORDS SUMMARY | 2024-02-24 15:02 | XMS_ITS | Encounter Summary ---
Author Organization [facility] [place] [address] Care Team Providers Care Teacher Theater Arts Name Role Phone Veronica Barrios KEISHA Primary Care Provider Encounter Details Date Type Department Care Team (Late st Contact Info) Description 10/29/2022 External Results Cardiology at [address] [address] Liam Noel MD [facility] [place] [address] Social History Tobacco Use Types Packs/Day Years [...] 9:45 AM EDT Office Visit Dermatology at [address] [place] [address] Emiliano Salinas MD [address] [place] [address], [place]IND[place] [address] documented as of this encounter Procedures Procedure [...] on filedocumented in this encounter Care Teams Teacher Theater Arts Relationship Specialty Start Date End Date Veronica Barrios APRN [address] [place] [address] PCP - General Family Medicine 08/27/22 03/17/23 documented as of this encounter
--- OUTSIDE RECORDS SUMMARY | 2024-02-24 15:02 | XMS_ITS | Encounter Summary ---
Author Organization [facility] [place] [address] Care Team Providers Care Landmen Name Role Phone Veronica Barrios KEISHA Primary Care Provider Encounter Details Date Type Department Care Team (Late st Contact Info) Description 08/29/2022 Specialty [place] [address] Rissa Anderson [facility] Social History Tobacco Use Types [...] AM EDT Office Visit Dermatology at [place] [address] [facility] [place] [address] Emiliano Salinas MD [address] [facility] [address], [place] [address] documented as of this encounter Visit Diagnoses Not on filedocumented in this encounter Care Teams Landmen Relationship Specialty Start Date End Date Veronica Barrios APRN [address] [place] [id number] PCP - General Family Medicine 08/27/22 03/17/23 documented as of this encounter
--- OUTSIDE RECORDS SUMMARY | 2024-02-24 15:02 | XMS_ITS | Encounter Summary ---
[place] [address] Care Team Providers Care Draw Frame Tender Name Role Phone Veronica Barrios KEISHA Primary Care Provider Reason for Visit * Reason Comments Medication Management Encounter Details Date Type Department Care Team (Late st Contact Info) Description 09/27/2022 Specialty [place] [address] Louie Sosa RPH Social History Tobacco Use [...] Management (CMM) Yessenia Arnoldnavin [address] [facility] [address] Telephone Information: Work Phone Not on file. [...] were made at the appointment and that [facility] isproviding recommendations (summary located at [...] EDT Office Visit Dermatology at [place] [address] [facility] [place] [address] Emiliano Salinas MD 580 [facility], [place] [address] documented as of this encounter Visit Diagnoses Not on filedocumented in this encounter Care Teams Draw Frame Tender Relationship Specialty Start Date End Date Veronica Barrios APRN [address] [place] [address] PCP - General Family Medicine 3/20/23 10/8/23 documented as of this encounter
--- OUTSIDE RECORDS SUMMARY | 2024-02-24 15:02 | XMS_ITS | Encounter Summary ---
Author Organization [facility] [place] [address] Care Team Providers Care Biller Name Role Phone Veronica Barrios Liyah VALDES Primary Care Provider Encounter Details Date Type Department Care Team (Late st Contact Info) Description 09/20/2022 Telephone Cardiology at [address] [place] [address] Liam Noel MD [facility] [place] [place] [address] Social History Tobacco Use Types Packs/Day Years [...] order cholesterol labs to be done at [place] before the appointment. Please call her @ [phone] documented in this encounter Plan of Treatment Upcoming Encounters Date Type Department Care Team (Late st Contact Info) Description 03/13/2024 9:45 AM EDT Office Visit Dermatology at [place] [address] [facility] [place] [address] Emiliano Salinas MD [address] [facility], MANINDER Bhatt DERMATOLOGY [place], [place] [address] documented as of this encounter Visit Diagnoses Not on filedocumented in this encounter Care Teams Biller Relationship Specialty Start Date End Date Veronica Barrios APRN [address] [place] [address] PCP - General Family Medicine 08/27/22 03/17/23 documented as of this encounter
--- OUTSIDE RECORDS SUMMARY | 2024-02-24 15:02 | XMS_ITS | Encounter Summary ---
Author Organization [facility] Address [facility] [place] [address] Care Team Providers Care Wire Technician Name Role Phone Veronica Barrios KEISHA Primary Care Provider Reason for Visit * Reason Comments Skin Check Encounter Details Date Type Department Care Team (Late st Contact Info) Description 08/30/2022 8:30 AM EDT Office Visit Dermatology at [facility] [address] [place] [address] Star Moura MD [facility] [address] [place] [address] Multiple benign melanocytic nevi of upper and [...] education Hobbies: Other: Yessenia grew up in [place], [place]. Pre-Procedure Questions Details Allergy to [...] on the face. Will be sent to [facility]. Cost is $60 for [...] Start Rx: Minoxidil 1.25mg QD (compounded by [facility]). Counseled that minoxidil can initially increase hair [...] 1 year for FSE []Note routed to secretary to board of commissioners [x]Recall placed in scheduling system []Appointment scheduled at checkout Scribe attestation: TAQUERIA Vang has performed the documentation for this encounter in the presence of and acting as a scribe for Star Moura MD. I performed the above scribed service and agree with the accuracy of the documentation in this encounter. Reviewed and signed by: Star Moura MD Dermatology [facility] documented in this encounter Plan of Treatment Upcoming Encounters Date Type Department Care Team (Late st Contact Info) Description 03/13/2024 9:45 AM EDT Office Visit Dermatology at [place] [address] [place] [address] Emiliano Salinas MD [address] [facility], [place] [address] documented as of this encounter Visit Diagnoses Diagnosis Multiple benign melanocytic nevi of upper and lower extremities and trunk Rhytides Other specified hypertrophic and atrophic condition of skin Lentigines Other dyschromia Eczema craquele Other specified disease of sebaceous glands Holt angioma Nevus, non-neoplastic Androgenetic alopecia Other alopecia documented in this encounter Care Teams Wire Technician Relationship Specialty Start Date End Date Veronica Barrios APRN [address] [place] [address] PCP - General Family Medicine 08/27/22 03/17/23 documented as of this encounter
--- OUTSIDE RECORDS SUMMARY | 2024-02-24 15:02 | XMS_ITS | Encounter Summary ---
Author Organization [facility] [place] [address] Care Team Providers Care Knife Blade Polisher Name Role Phone Mary Altamirano MD Primary Care Provider Encounter Details Date Type Department Care Team (Latest Contact Info) Description 06/15/2022 2:00 PM EST TH Visit (TeleHealth) Cardiology at [address] [address] Derick Acosta, [facility] [place] [address] Nutritional counseling Social History Tobacco Use Types [...] Vascular Center Cardiovascular Medicine Cardiology Nutrition [place] [address] , #2 eFax: 06/15/22 Identification Yessenia Luong is a 72 y.o. patient of Mary Campbell MD referred to Cardiology Dietitian Strategy Director By Delfina Santiago MD, Lipidologist, for nutrition management of familial hypercholesterolemia in the setting of statin and PCSK9 intolerance. Yessenia is known to me from 2019 when I worked with her initially for the same condition. 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 Today's visit started after a 45-minute delay; patient's telephone went to [employer] at the time of our scheduled telephone visit; [facility] for assistance with [facility], then e-mailed [...] counseling and coaching. cc: Mary Campbell MD [address] [place] [address] / [facility] [id number] documented in this encounter Plan of Treatment Upcoming Encounters Date Type Department Care Team (Late st Contact Info) Description 03/13/2024 9:45 AM EDT Office Visit Dermatology at [address] [address] Emiliano Salinas MD [address] [place] [address], [facility] [place] [address] documented as of this encounter Visit Diagnoses Diagnosis Nutritional counseling documented in this encounter Care Teams Knife Blade Polisher Relationship Specialty Start Date End Date Mary Altamirano MD PCP - General Family Medicine 01/26/22 08/26/22 documented as of this encounter
--- OUTSIDE RECORDS SUMMARY | 2024-02-24 15:02 | XMS_ITS | Encounter Summary ---
[place] [address] Care Team Providers Care Vice President Quality Name Role Phone Mary Altamirano MD Primary Care Provider [phone] Encounter Details Date Type Department Care Team (Late st Contact Info) Description 06/14/2022 Telephone Cardiology at [address] [address] Dariela Manzano, RN Social History [...] way up. She can be reached at [phone]. Forward to Dr Santiago. * Telephone Encounter - Dariela Manzano RN - 06/14/2022 12:55 PM EST Telephone call from Ms Luong,states she has noted onset of muscle pain and aches as well as muscle spasms since initiating atorvastatin 80 mg daily. She has not tried [id number] dosing-she is agreeable to trying this. Last [...] non-daily basis) Blood tests in ~6 weeks [place] Forward to Dr Santiago documented in this encounter Plan of Treatment Upcoming Encounters Date Type Department Care Team (Late st Contact Info) Description 03/13/2024 9:45 AM EDT Office Visit Dermatology at [place] [address] [facility] [place] [address] Emiliano Salinas MD [address], [place] [address] documented as of this encounter Visit Diagnoses Not on filedocumented in this encounter Care Teams Vice President Quality Relationship Specialty Start Date End Date Mary Altamirano MD PCP - General Family Medicine 01/26/22 08/26/22 documented as of this encounter
--- OUTSIDE RECORDS SUMMARY | 2024-02-24 15:02 | XMS_ITS | Encounter Summary ---
Author Organization [facility] [place] [address] Care Team Providers Care Corporate Director Of Pharmacy Name Role Phone Mary Altamirano MD Primary [...] 9:45 AM EDT Office Visit Dermatology at [place] [address] [place] [address] Emiliano Salinas MD [address], [place]IND[place] [address] documented as of this encounter Visit Diagnoses Not on filedocumented in this encounter Care Teams Corporate Director Of Pharmacy Relationship Specialty Start Date End Date Mary Altamirano MD PCP - General Family Medicine 01/26/22 08/26/22 documented as of this encounter
--- OUTSIDE RECORDS SUMMARY | 2024-02-24 15:02 | XMS_ITS | Encounter Summary ---
Author Organization [facility] [place] [address] Care Team Providers Care Trimmer Climber Name Role Phone Veronica Barrios Liyah VALDES Primary Care Provider Reason for Visit * Reason Onset Date Comments Medication Change/management 11/27/2022 Encounter Details Date Type Department Care Team (Late st Contact Info) Description 11/27/2022 Telephone Cardiology at [address] [place] [address] Liam Noel MD [facility] [place] [address] Medication Change/management Social History Tobacco Use Types [...] AM EDT Office Visit Dermatology at [place] [address] [facility] [place] [address] Emiliano Salinas MD [address] [facility], [place] [address] documented as of this encounter Visit Diagnoses Not on filedocumented in this encounter Care Teams Trimmer Climber Relationship Specialty Start Date End Date Veronica Barrios APRN [address] [place] [address] PCP - General Family Medicine 08/27/22 03/17/23 documented as of this encounter
--- OUTSIDE RECORDS SUMMARY | 2024-02-24 15:02 | XMS_ITS | Encounter Summary ---
Author Organization [facility] [place] [address] Care Team Providers Care Community Placement Worker Name Role Phone Veronica Barrios KEISHA Primary Care Provider Encounter Details Date Type Department Care Team (Latest Contact Info) Description 09/03/2022 Orders Only Cardiology at [address] [address] Liam Noel MD [facility] [place] [address] Familial hypercholesterolemia Social History Tobacco Use Types [...] AM EDT Office Visit Dermatology at [address] [place] [phone] Emiliano Salinas MD [address] [place] [address] RD, [place] [address] documented as of this encounter Visit Diagnoses Diagnosis Familial hypercholesterolemia Pure hypercholesterolemia documented in this encounter Care Teams Community Placement Worker Relationship Specialty Start Date End Date Veronica Barrios APRN [address] [place] [address] PCP - General Family Medicine 08/27/22 03/17/23 documented as of this encounter
--- OUTSIDE RECORDS SUMMARY | 2024-02-24 15:02 | XMS_ITS | Encounter Summary ---
Author Organization [facility] Address [facility] [place] [address] Care Team Providers Care Windshield Installer Name Role Phone Veronica Barrios Liyah VALDES Primary Care Provider [phone] Reason for Visit * Reason Comments Medication Refill Encounter Details Date Type Department Care Team (Late st Contact Info) Description 01/22/2023 Refill Cardiology at [address] [address] Liam Noel MD [facility] [place] [address] Medication Refill Social History Tobacco Use Types [...] 9:45 AM EDT Office Visit Dermatology at [place] [address] [facility] [place] [address] Emiliano Salinas MD [address] [facility], [place] [address] documented as of this encounter Visit Diagnoses Diagnosis Mixed hyperlipidemia documented in this encounter Care Teams Windshield Installer Relationship Specialty Start Date End Date Veronica Barrios APRN [address] [place] [address] PCP - General Family Medicine 08/27/22 03/17/23 documented as of this encounter
--- OUTSIDE RECORDS SUMMARY | 2024-02-24 15:02 | XMS_ITS | Encounter Summary ---
Author Organization [facility] [place] [address] Care Team Providers Care Director Teen Post Name Role Phone Mary Altamirano MD Primary Care Provider [phone] Reason for Visit * Reason Onset Date Comments Referral 08/22/2022 Encounter Details Date Type Department Care Team (Late st Contact Info) Description 08/22/2022 Telephone Cardiology at [address] [address] Ashlyn Celis, concrete products dispatcher Social History Tobacco Use Types Packs/Day Years [...] EDT Yessenia has been with Cardiology in [place]. Last appointment was July. Next appointment is due in November and she prefers to transfer cardiology care to a berry grower in the [facility] Cardiology clinic. Request: PCP to confirm that transfer of cardiology care to the closer provider is an appropriate referral. This clinic can accommodate a new appointment in November. documented in this encounter Plan of Treatment Upcoming Encounters Date Type Department Care Team (Late st Contact Info) Description 03/13/2024 9:45 AM EDT Office Visit Dermatology at [place] 580 [facility] [place] [address] Emiliano Salinas MD [address] [facility] [address], [place] [address] documented as of this encounter Visit Diagnoses Not on filedocumented in this encounter Care Teams Director Teen Post Relationship Specialty Start Date End Date Mary Altamirano MD PCP - General Family Medicine 01/26/22 08/26/22 documented as of this encounter
--- OUTSIDE RECORDS SUMMARY | 2024-02-24 15:02 | XMS_ITS | Encounter Summary ---
Author Organization [facility] [place] [address] Care Team Providers Care Ditcher Operator Name Role Phone Veronica Barrios Liyah VALDES Primary Care Provider Encounter Details Date Type Department Care Team (Late st Contact Info) Description 12/27/2022 Ancillary Procedure Radiology Library at [facility] [place] [phone] Guerline Quigley APRN [address] [place], [place] [address] Social History Tobacco Use Types Packs/Day Years [...] 9:45 AM EDT Office Visit Dermatology at [place] 580 [facility] [place] [address] Emiliano Salinas MD 580 [facility], [place]AKAR[place] [address] documented as of this encounter Procedures Procedure Name Priority Date/Time Associated Diagnosis Comments FILM LIBRARY- STORAGE ONLY DXA IMAGES Routine 12/27/2022 12:00 AM EDT documented in this encounter Results * Film Library- Storage Only DXA Images (12/27/2022 12:00 AM EDT) Narrative [facility] - 08/07/2023 3:20 PM EST This exam is auto-finalizing. It's purpose is for storage only. Guerline Quigley APRN IMAdwoa FILM LIBRARY ORD ERABLES Performing Organization Address City/State/[facility] Co de Phone Number [place], [place] documented in this encounter Visit Diagnoses Not on filedocumented in this encounter Care Teams Ditcher Operator Relationship Specialty Start Date End Date Veronica Barrios APRN [address] [place] [address] PCP - General Family Medicine 08/27/22 03/17/23 documented as of this encounter
--- OUTSIDE RECORDS SUMMARY | 2024-02-24 15:02 | XMS_ITS | Encounter Summary ---
Author Organization [facility] [place] [address] Care Team Providers Care Entry Level Administrative Assistant Name Role Phone Veronica Barrios APRN Primary Care Provider [phone] Encounter Details Date Type Department Care Team [...] 9:45 AM EDT Office Visit Dermatology at [place] [address] [facility] [place] [address] Emiliano Salinas MD [address], [place] [address] documented as of this encounter Visit Diagnoses Not on filedocumented in this encounter Care Teams Entry Level Administrative Assistant Relationship Specialty Start Date End Date Veronica Barrios APRN [address] [place] [address] PCP - General Family Medicine 08/27/22 03/17/23 documented as of this encounter
--- OUTSIDE RECORDS SUMMARY | 2024-02-24 15:02 | XMS_ITS | Encounter Summary ---
[place] [address] Care Team Providers Care Quality Assurance Test Program Manager Name Role Phone Mary Altamirano MD Primary Care Provider [phone] Encounter Details Date Type Department Care Team (Latest Contact Info) Description 08/01/2022 8:15 AM EST Laboratory Appointment Lab [address] [place] [address] Familial hypercholesterolemi a; THERESA (obstructive sleep apnea) [...] 9:45 AM EDT Office Visit Dermatology at [place] 580 [facility] [place] [address] Emiliano Salinas MD [address], BAKARI Bhatt DERMATOLOGY [place], [place] [address] documented as of this encounter Procedures Procedure [...] AM EST) Cholesterol, Total 366 mg/dL [facility] Comment: Lower Risk: <200 mg/dL Average Risk: 200-239 mg/dL Higher Risk: >zy=389 mg/dL Triglyceride 195 mg/dL [facility] Comment: Average Risk/Lower Risk: <150 mg/dL Borderline High Risk: 150-199 mg/dL High Risk: 200-499 mg/dL Very High Risk: >vt=888 mg/dL HDL Cholesterol 91 mg/dL [facility] Comment: Males: ?? Higher Risk: <40 mg/dL Females: ?? Higher Risk: <50 mg/dL LDL Cholesterol 236 mg/dL [facility] Comment: Lowest Risk: <100 mg/dL Lower Risk: 100-129 mg/dL Borderline High Risk: 130-159 mg/dL High Risk: 160-189 mg/dL Very High Risk: >wc=369 mg/dL Cholesterol/HDL Ratio 4.0 ratio [facility] Lipid Interpretation See Note [facility] Comment: Lipid management should be guided by a patient? s ASCVD risk, goals and preferences. ACC/AHA Guidelines recommend high intensity statin if clinical ASCVD or LDL greater than or equal to 190 mg/dL. [email or web address] Adults aged 40-75 with LDL 70-189 mg/dL should have their 10 year ASCVD risk estimated with the ACC/AHA ASCVD risk job cost estimator http://tools.acc.org/JZSPQ-Sfkm-Brebafkds/ Statin should be discussed if risk greater [...] Santiago MD CHEMISTRY ORDERABLES Performing Organization Address [facility] de Phone Number [facility] [place] [address] * (ABNORMAL) Apolipoprotein B (08/01/2022 7:52 AM EST) Pathologist [facility] Apolipoprotein B (OCTOBER) 169(H) mg/dL [facility] Comment: REFERENCE VALUE Desirable: <90 Above Desirable: 90-99 Borderline high: 100-119 High: 120-139 Very high: > or = 140 Test Performed by: [address] [address] Refueling Ramp Attendant: Kyle Michel M.D. Ph.D.; CLIA# [id number] Blood 08/01/2022 7:52 AM EST 08/01/2022 12:39 PM EST Narrative Resulting Agency Comment Spec In Lab Delfina Santiago MD LAB SEND OUT ORDERAB LES Performing Organization Address [facility] Co de Phone Number [facility] [place] [address] * Hepatic Function Panel (08/01/2022 7:52 AM EST) Protein, Total 7.1 6.1 - 8.0 g/dL [facility] Albumin 4.5 3.2 - 5.2 g/dL [facility] Aspartate Aminotransferase 19 0 - 30 unit/L [facility] Alanine Aminotransferase 18 0 - 30 unit/L [facility] Alkaline Phosphatase 75 35 - 105 unit/L [facility] Bilirubin, Total 0.4 0.2 - 1.3 mg/dL [facility] Bilirubin, Direct 0.1 0.0 - 0.3 mg/dL [facility] Blood 08/01/2022 7:52 AM EST 08/01/2022 8:07 AM EST Narrative Resulting Agency Comment Spec In Lab Delfina Santiago MD CHEMISTRY ORDERABLES Performing Organization Address City/State/[facility] Co de Phone Number [facility] [place] [address] documented in this encounter Visit Diagnoses Diagnosis Familial hypercholesterolemia Pure hypercholesterolemia THERESA (obstructive sleep apnea) Obstructive sleep apnea (adult) (pediatric) documented in this encounter Care Teams Quality Assurance Test Program Manager Relationship Specialty Start Date End Date Mary Altamirano MD PCP - General Family Medicine 01/26/22 08/26/22 documented as of this encounter
--- OUTSIDE RECORDS SUMMARY | 2024-02-24 15:02 | XMS_ITS | Encounter Summary ---
[place] [address] Care Team Providers Care Gas Station Cashier Name Role Phone Mary Altamirano MD Primary Care Provider [phone] Reason for Visit * Reason Comments Medication Management Patient Education Medication Refill Encounter Details Date Type Department Care Team (Late st Contact Info) Description 08/07/2022 Specialty [place] [phone] Xochitl Loyola RPH Social History Tobacco Use [...] 1:03 PM EST Specialty Pharmacy Consultation; Xochitl Lyoola RPH Comprehensive Medication Management (CMM) Yessenia S [...] Requirements: no Medication Reconciliation Discrepancies (compared to [facility] med list) -none Medication List: Current [...] azelastine (ASTELIN) 137 mcg (0.1 %) Aerosol, [place] 0 ??? PROVENTIL HFA 90 mcg/actuation HFA [...] Once daily ??? Mometasone (NASONEX) 50 mcg/Actuation [place] 2 [place](s) each nostril, Nasal, Twice daily No current [...] specialty services: Yes Patient accepted offer to educational guidance counselor: adherence/missed doses, doses and administration, pharmacy [...] counter products discussed, reminder to refill or hand picker medication discussed, start medication discussed, timing [...] Social Assessment: Does patient have a primary physician locums urgent care: No Does patient have an emergency contact on file: Yes Does patient need referral to social media intern: No Does patient need referral to advocacy [...] were made at the appointment and that [facility] isproviding recommendations (summary located at top of note) for provider review and follow up. Xochitl Loyola RPH 08/07/22 1:40 PM documented in this encounter Plan of Treatment Upcoming Encounters Date Type Department Care Team (Late st Contact Info) Description 03/13/2024 9:45 AM EDT Office Visit Dermatology at [place] [address] [facility] [place] [address] Emiliano Salinas MD [address], BAKAR[place] [address] documented as of this encounter Visit Diagnoses Not on filedocumented in this encounter Care Teams Gas Station Cashier Relationship Specialty Start Date End Date Mary Altamirano MD PCP - General Family Medicine 01/26/22 08/26/22 documented as of this encounter
--- OUTSIDE RECORDS SUMMARY | 2024-02-24 15:02 | XMS_ITS | Encounter Summary ---
Author Organization [facility] [place] [address] Care Team Providers Care Registrar College Or University Name Role Phone Mary Altamirano MD Primary Care Provider Encounter Details Date Type Department Care Team (Latest Contact Info) Description 02/16/2022 11:20 AM EDT Laboratory Appointment Lab at [facility] [address] [place] [address] Familial hypercholesterolemi a; THERESA (obstructive sleep apnea) [...] AM EDT Office Visit Dermatology at [address] [place] [address] Emiliano Salinas MD [address] [facility], [place] [address] documented as of this encounter Procedures Procedure [...] Uric Acid 5.4 2.5 - 6.5 mg/dL [facility] Blood 02/16/2022 11:5 1 AM EDT 02/16/2022 12:02 PM EDT Narrative Resulting Agency Comment Spec In Lab Tory Montalvo MD CHEMISTRY ORDERABLES [facility] [place] [address] * Apolipoprotein B (02/16/2022 11:51 AM EDT) Apolipoprotein B (OCTOBER) 85 mg/dL [facility] Comment: REFERENCE VALUE Desirable: <90 Above Desirable: 90-99 Borderline high: 100-119 High: 120-139 Very high: > or = 140 Test Performed by: [address] [address] Typecasting Machine Operator: Kyle Michel M.D. Ph.D.; CLIA# [id number] Blood 02/16/2022 11:5 1 AM EDT 02/16/2022 3:50 PM EDT Narrative Resulting Agency Comment Spec In Lab Delfina Santiago MD LAB SEND OUT ORDERAB LES Performing Organization Address [facility] [place] [facility] de Phone Number [facility] [place] [address] * Lipoprotein A (02/16/2022 11:50 AM EDT) Lipoprotein(A) (OCTOBER) 12 <75 nmol/L [facility] Comment: ADDITIONAL INFORMATION Please notice that Lp(a) values are reported in molar units (nmol/L). ??These units are recommended by professional society guidelines and expert opinion statements. ??Measured results and risk thresholds are higher than those generated using mass units (mg/dL). Cardiovascular risk increases starting at 75 nmol/L. Lp(a) >=125 nmol/L is considered a risk enhancing factor by the [place] [employer]. This test has been modified from the pharmacy teacher's instructions. Its performance characteristics were determined by [facility] in a manner consistent with CLIA requirements. This test has not been cleared or approved by the U.S. Food and Drug Administration. Test Performed by: [address] [address] Typecasting Machine Operator: Kyle Michel M.D. Ph.D.; CLIA# [id number] Blood 02/16/2022 11:5 0 AM EDT 02/16/2022 3:50 PM EDT Narrative Resulting Agency Comment Spec In Lab Delfina Santiago MD LAB SEND OUT ORDERAB LES Performing Organization Address [facility] [place] [facility] Co de Phone Number [facility] [place] [address] * Apolipoprotein B (02/16/2022 11:50 AM EDT) Apolipoprotein B (OCTOBER) 84 mg/dL [facility] Comment: REFERENCE VALUE Desirable: <90 Above Desirable: 90-99 Borderline high: 100-119 High: 120-139 Very high: > or = 140 Test Performed by: [facility] - [address] [address] Typecasting Machine Operator: Kyle Michel M.D. Ph.D.; CLIA# [id number] Blood 02/16/2022 11:5 0 AM EDT 02/16/2022 3:50 PM EDT Narrative Resulting Agency Comment Spec In Lab Delfina Santiago MD LAB SEND OUT ORDERAB LES Performing Organization Address City/State/[facility] Co de Phone Number [facility] [place] [address] documented in this encounter Visit Diagnoses Diagnosis Familial hypercholesterolemia Pure hypercholesterolemia THERESA (obstructive sleep apnea) Obstructive sleep apnea (adult) (pediatric) documented in this encounter Care Teams Registrar College Or University Relationship Specialty Start Date End Date Mary Altamirano MD PCP - General Family Medicine 01/26/22 08/26/22 documented as of this encounter
--- OUTSIDE RECORDS SUMMARY | 2024-02-24 15:02 | XMS_ITS | Encounter Summary ---
Author Organization [facility] Address [facility] [place] [address] Care Team Providers Care Chemical Analytical Sampler Name Role Phone Mary Altamirano MD Primary Care Provider Encounter Details Date Type Department Care Team (Latest Contact Info) Description 04/06/2022 11:00 AM EDT TH Visit (TeleHealth) Cardiology at [address] [address] [facility] [address] Nutritional counseling Social History Tobacco Use Types [...] 9:45 AM EDT Office Visit Dermatology at [place] 580 [facility] [place] [address] Emiliano Salinas MD [address], [place] [address] documented as of this encounter Visit Diagnoses Diagnosis Nutritional counseling documented in this encounter Care Teams Chemical Analytical Sampler Relationship Specialty Start Date End Date Mary Altamirano MD PCP - General Family Medicine 01/26/22 08/26/22 documented as of this encounter
--- OUTSIDE RECORDS SUMMARY | 2024-02-24 15:02 | XMS_ITS | Encounter Summary ---
Author Organization [facility] [place] [address] Care Team Providers Care Teen Counselor Name Role Phone Veronica Barrios APRN Primary Care Provider Encounter Details Date Type Department Care Team (Late st Contact Info) Description 08/27/2022 Transcribe Orders eDH Incoming Referrals [phone] Veronica Barrios APRN [address] [place] [address] Social History Tobacco Use Types Packs/Day Years [...] AM EDT Office Visit Dermatology at [place] [address] [facility] [place] [address] Emiliano Salinas MD 580 [facility], [place] [address] documented as of this encounter Visit Diagnoses Not on filedocumented in this encounter Care Teams Teen Counselor Relationship Specialty Start Date End Date Veronica Barrios APRN [address] [place] [address] PCP - General Family Medicine 08/27/22 03/17/23 documented as of this encounter
--- OUTSIDE RECORDS SUMMARY | 2024-02-24 15:02 | XMS_ITS | Encounter Summary ---
Author Organization [facility] [place] [address] Care Team Providers Care Machine Candle Molder Name Role Phone Mary Altamirano MD Primary [...] 9:45 AM EDT Office Visit Dermatology at [place] [address] [facility] [place] [address] Emiliano Salinas MD [address] [facility] [address], MANINDER [place] [address] documented as of this encounter Visit Diagnoses Not on filedocumented in this encounter Care Teams Machine Candle Molder Relationship Specialty Start Date End Date Mary Altamirano MD PCP - General Family Medicine 01/26/22 08/26/22 documented as of this encounter
--- OUTSIDE RECORDS SUMMARY | 2024-02-24 15:02 | XMS_ITS | Encounter Summary ---
Author Organization [facility] [place] [address] Care Team Providers Care Orchid Grower Name Role Phone Mary Altamirano MD Primary Care Provider [phone] Reason for Referral * Diagnostic Test (Routine) - Closed Specialty Diagnoses / Procedures Referred By Contac t Referred To Contact Radiology Diagnoses Familial hypercholesterolemia Procedures CT Heart For Coronary Calcium wo Contrast (Prepaid) Tory Montalvo MD [facility] [place] [address] [facility] [place] [address] Referral ID Status Reason Start Date Expiration Date V isits Requested Visits Authorized [id number] Closed Specialty Service Requested 10/28/2020 04/30/2022 1 1 Reason for Visit * Diagnostic Test (Routine) - Closed Specialty Diagnoses / Procedures Referred By Contac t Referred To Contact Radiology Diagnoses Familial hypercholesterolemia Procedures CT Heart For Coronary Calcium wo Contrast (Prepaid) Tory Montalvo MD [facility] [place] [address] [facility] [place] [address] Referral ID Status Reason Start Date Expiration Date V isits Requested Visits Authorized [id number] Closed Specialty Service Requested 10/28/2020 04/30/2022 1 1 Encounter Details Date Type Department Care Team (Latest Contact Info) Description 02/16/2022 10:23 AM EDT - 02/16/2022 11:59 PM EDT Hospital Encounter CT Scan at [facility] [place] [address] Tory Montalvo MD Familial hypercholesterolemia Discharge Disposition: [...] End Date fluticasone propionate (Flonase) 50 mcg/actuation [place], Suspension Every 12 hours. 10/17/2020 EPINEPHrine 0.3 [...] azelastine (ASTELIN) 137 mcg (0.1 %) Aerosol, [place] 0 11/06/2017 0 09/03/2022 ASCORBATE CALCIUM (VITAMIN C ORAL) Take by mouth. 09/03/2022 ERGOCALCIFEROL, VITAMIN D2, (VITAMIN D ORAL) Take by mouth. multivitamin (THERAGRAN) tablet Take 1 tablet by mouth daily. 09/03/2022 fexofenadine (EVANGELINA) 180 mg tablet 180 mg, PO, Once daily 08/28/2010 09/03/2022 Mometasone (NASONEX) 50 mcg/Actuation [place] 2 [place](s) each nostril, Nasal, Twice daily 08/28/2010 09/03/2022 documented as of this encounter Plan of Treatment Upcoming Encounters Date Type Department Care Team (Late st Contact Info) Description 03/13/2024 9:45 AM EDT Office Visit Dermatology at [place] [address] [facility] [place] [address] Emiliano Salinas MD [address] [facility] [address], BAKAR[place] [address] documented as of this encounter Procedures Procedure [...] questions please contact the health home health care worker that requested your imaging first. ? Narrative 02/16/2022 3:30 PM EDT EXAMINATION: CT HEART FOR CORONARY CALCIUM WO CONTRAST (PREPAID) CLINICAL HISTORY: Hyperlipidemia 120; patient with elevated LDL and side effects to medications COMPARISON: None. TECHNIQUE: 3.0 mm thick axial contiguous sections through the heart were obtained via ECG-gated axial mode acquisition without intravenous contrast. Craniocaudal coverage and mpfed-gp-foei were restricted to the heart. Post-processing was [...] mode acquisition without intravenouscontrast. Craniocaudal coverage and pcxyq-aq-pgqo were restricted to the heart. Post-processing was [...] have questions please contactthe health home health care worker that requested your imaging first. Electronically signed by: Celestina Murillo MD, [facility] ([phone]), at 02/16/2022 3:30 PM Tory Montalvo MD IMG CT ORDERABLES documented in this encounter Visit Diagnoses Diagnosis Familial hypercholesterolemia Pure hypercholesterolemia documented in this encounter Care Teams Orchid Grower Relationship Specialty Start Date End Date Mary Altamirano MD PCP - General Family Medicine 01/26/22 08/26/22 documented as of this encounter
--- OUTSIDE RECORDS SUMMARY | 2024-02-24 15:02 | XMS_ITS | Encounter Summary ---
[place] [address] Care Team Providers Care Swage Toolsetter Name Role Phone Mary Altamirano MD Primary Care Provider Reason for Visit * Reason Comments Prior Authorization Repatha 140mg/mL pen s Encounter Details Date Type Department Care Team (Late st Contact Info) Description 08/06/2022 Specialty [place] [address] Skyler Garcia, VENTILATED RIB FITTER Social History Tobacco Use Types Packs/Day Years [...] Patient : 1950 Patient Address: [address] [facility] [address] (home) Medication Name: REPATHA SURECLICK 140 MG/ML SUBCUTANEOUS PEN INJECTOR Medication ID: [id number] Subscriber Insurance: [facility] Part D Subscriber Insurance Comment: Phone: Fax: Physician: KALEIGH ALEXANDRE Physician Comment: Sent Via: [facility] [place]ales: [id number] Ref/Case/PA#: Medication Strength Frequency Requested: evolocumab (Repatha SureClick) 140 mg/mL Pen Injector, 1 pen every 14 days Qty/Day Supply: 08/07 New Start: New to Therapy Diagnosis & ICD-10 Code: Familial hypercholesterolemia E78.01 Patient Notified: Left Voicemessage Submission Notes: None Skyler Garcia 08/06/22 2:14 PM * Nam Chan - 08/06/2022 2:07 PM EST [facility], Prior Authorization Approval Medication Name: REPATHA SURECLICK 140 MG/ML SUBCUTANEOUS PEN INJECTOR Medication ID: [id number] Approval Dates: 08/06/2022 to 02/03/2023 Insurance requirements/notes: None Other Notes: None Case/Reference #: [id number] Approval notification Received via: [facility] Copay: $0 Copay assistance: [employer] Copay Notes: If cost were to become unaffordable we can assess eligibility for any currently open grants, or refer to [facility] MAP for enrollment in floor framer assistance. Insurance mandated Pharmacy: Unknown Fillable at [facility] Special[facility] Pharmacy: Yes Pharmacy staff will be reaching out to the patient to inform them of their medication's approval [facility] insurance. If applicable, a pharmacist will speak with the patient to offer our specialty pharmacy services and to arrange delivery of their medication. Nam Chan 08/07/22 8:52 AM documented in this encounter Plan of Treatment Upcoming Encounters Date Type Department Care Team (Late st Contact Info) Description 03/13/2024 9:45 AM EDT Office Visit Dermatology at [place] [address] [facility] [place] [address] Emiliano Salinas MD [address], BAKARI [place] [address] documented as of this encounter Visit Diagnoses Not on filedocumented in this encounter Care Teams Swage Toolsetter Relationship Specialty Start Date End Date Mary Altamirano MD PCP - General Family Medicine 01/26/22 08/26/22 documented as of this encounter
--- OUTSIDE RECORDS SUMMARY | 2024-02-24 15:02 | XMS_ITS | Encounter Summary ---
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 ??She was in 2002 and has had a significant other for many years. ??Her significant other (Yoshalom Peterson) lives in [place].?She has??5??children and 3 biologic and 8 step??grandchildren. [...] azelastine (ASTELIN) 137 mcg (0.1 %) Aerosol, [place] 0 ??? PROVENTIL HFA 90 mcg/actuation HFA [...] Once daily ??? 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 Social [...] monitor liver function tests). Blood tests at [place] in about 6 weeks Time spent for this clinic appointment on the date of service includes: 25 minutes review of her chart and previous lipid evaluation and recommendations; 30 minutes ljwj-vi-[id number] and 10 minutes coordination of care 1) oiyc-he-vfgv counseling as noted above 2) reviewing past medical records, cardiac testing, results of laboratory testing 3) coordinating care with other physicians and allied health care providers Delfina Santiago MD, Vonnie, FACC, FNLA Attending Laser Specialist Sports Cardiology Program Preventive Cardiology Lipid Clinic Advanced Hypertension Clinic documented in this encounter Plan of Treatment Upcoming Encounters Date Type Department Care Team (Late st Contact Info) Description 03/13/2024 9:45 AM EDT Office Visit Dermatology at [place] [address] [facility] [place] [address] Emiliano Salinas MD [address], MANINDER [place] [address] documented as of this encounter Results * Hepatic Function Panel (08/01/2022 7:52 AM EST) [facility] Protein, Total 7.1 6.1 - 8.0 g/dL [facility] Albumin 4.5 3.2 - 5.2 g/dL [facility] Aspartate Aminotransferase 19 0 - 30 unit/L [facility] Alanine Aminotransferase 18 0 - 30 unit/L [facility] Alkaline Phosphatase 75 35 - 105 unit/L [facility] Bilirubin, Total 0.4 0.2 - 1.3 mg/dL [facility] Bilirubin, Direct 0.1 0.0 - 0.3 mg/dL [facility] Blood 08/01/2022 7:52 AM EST 08/01/2022 8:07 AM EST Narrative Resulting Agency Comment Spec In Lab Delfina Santiago MD CHEMISTRY ORDERABLES [facility] [place] [address] * (ABNORMAL) Apolipoprotein B (08/01/2022 7:52 AM EST) [facility] Apolipoprotein B (OCTOBER) 169(H) mg/dL [facility] Comment: REFERENCE VALUE Desirable: <90 Above Desirable: 90-99 Borderline high: 100-119 High: 120-139 Very high: > or = 140 Test Performed by: [facility] - [address] [address] [employer] Project Manager: Kyle Michel M.D. Ph.D.; CLIA# [id number] Blood 08/01/2022 7:52 AM EST 08/01/2022 12:39 PM EST Narrative Resulting Agency Comment Spec In Lab Delfina Santiago MD LAB SEND OUT ORDERAB LES Performing Organization Address City/State/[facility] Co de Phone Number [facility] [place] [address] * Lipid Panel (Reflex Direct LDL) (08/01/2022 7:52 AM EST) [facility] Cholesterol, Total 366 mg/dL [facility] Comment: Lower Risk: <200 mg/dL Average Risk: 200-239 mg/dL Higher Risk: >vq=067 mg/dL Triglyceride 195 mg/dL [facility] Comment: Average Risk/Lower Risk: <150 mg/dL Borderline High Risk: 150-199 mg/dL High Risk: 200-499 mg/dL Very High Risk: >ap=166 mg/dL HDL Cholesterol 91 mg/dL [facility] Comment: Males: ?? Higher Risk: <40 mg/dL Females: ?? Higher Risk: <50 mg/dL LDL Cholesterol 236 mg/dL [facility] Comment: Lowest Risk: <100 mg/dL Lower Risk: 100-129 mg/dL Borderline High Risk: 130-159 mg/dL High Risk: 160-189 mg/dL Very High Risk: >dx=447 mg/dL Cholesterol/HDL Ratio 4.[address] [facility] Lipid Interpretation See Note [facility] Comment: Lipid management should be guided by a patient? s ASCVD risk, goals and preferences. ACC/AHA Guidelines recommend high intensity statin if clinical ASCVD or LDL greater than or equal to 190 mg/dL. http://Centrify.com/HBF-TLR-Rcsmlvqlf Adults aged 40-75 with LDL 70-189 mg/dL should have their 10 year ASCVD risk estimated with the ACC/AHA ASCVD risk road patcher http://tools.acc.org/HQKPE-Hhph-Ollaijjvp/ Statin should be discussed if risk greater [...] Santiago MD CHEMISTRY ORDERABLES Performing Organization Address City/State/[facility] Co de Phone Number [facility] [place] [address] documented in this encounter Visit Diagnoses Diagnosis Familial hypercholesterolemia Pure hypercholesterolemia THERESA (obstructive sleep apnea) Obstructive sleep apnea (adult) (pediatric) documented in this encounter Care Teams Information Strategist Relationship Specialty Start Date End Date Mary Altamirano MD PCP - General Family Medicine 01/26/22 08/26/22 documented as of this encounter
--- OUTSIDE RECORDS SUMMARY | 2024-02-24 15:02 | XMS_ITS | Encounter Summary ---
Author Organization [facility] [place] [address] Care Team Providers Care Post Framer Name Role Phone Veronica Barrios APRN Primary Care Provider [phone] Reason for Visit * Reason Comments Establish Care Hyperlipidemia * Consultation (Urgent) - Closed Specialty Diagnoses / Procedures Referred By Veronica brantley Referred To Contact Cardiology Diagnoses Familial hypercholesterolemia Familial hypercholesterolemia. Veronica Barrios APRN [address] [place] [address] [facility] Cardiology [address] [place] [address] Referral ID Status Reason Start Date Expiration Date V isits Requested Visits Authorized [id number] Closed Consult, Test & Treat PCP Updated and/or Approved 08/27/2022 08/27/2023 6 6 Encounter Details Date Type Department Care Team (Late st Contact Info) Description 10/29/2022 1:20 PM EDT Office Visit Cardiology at [address] [address] Liam Noel MD [facility] [place] [place] [address] Mixed hyperlipidemia Social History Tobacco [...] recorded. ??? fluticasone propionate (Flonase) 50 mcg/actuation [place], Suspension EVERY 12 HOURS ??? icosapent ethyL [...] AM EDT Office Visit Dermatology at [address] [place] [address] Emiliano Salinas MD [address] [facility], [place] [address] documented as of this encounter Visit Diagnoses Diagnosis Mixed hyperlipidemia documented in this encounter Care Teams Post Framer Relationship Specialty Start Date End Date Veronica Barrios APRN [address] [place] [address] PCP - General Family Medicine 08/27/22 03/17/23 documented as of this encounter
--- OUTSIDE RECORDS SUMMARY | 2024-02-24 15:02 | XMS_ITS | Encounter Summary ---
Author Organization [facility] Address [facility] [place] [address] Care Team Providers Care Human Resources Vice President Name Role Phone Mary Altamirano MD Primary Care Provider [phone] Reason for Referral * Diagnostic Test (Routine) - Closed Specialty Diagnoses / Procedures Referred By Contac t Referred To Contact Diagnoses Familial hypercholesterolemia THERESA (obstructive sleep apnea) Dyspnea, unspecified type Procedures Echocardiogram Stress (Treadmill) Delfina Alexandre MD [facility] [place] [address] [facility] [place] [address] Referral ID Status Reason Start Date Expiration Date V isits Requested Visits Authorized [id number] Closed Specialty Service Requested 05/21/2022 05/21/2023 1 1 Encounter Details Date Type Department Care Team (Late st Contact Info) Description 05/21/2022 10:20 AM EST Office Visit Cardiology at [address] [address] Delfina Alexandre MD [facility] [place] [address] Familial hypercholesterolemia; THERESA (obstructive sleep apnea); Dyspnea, [...] symptoms. 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 PROVENTIL HFA 90 mcg/actuation HFA [...] Once daily ??? 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 Social [...] non-daily basis) Blood tests in ~6 weeks [place] Time spent for this clinic appointment on the date of service includes: 25 minutes review of her chart and previous lipid evaluation and recommendations; 30 minutes vgix-rs-[id number] and 10 minutes coordination of care 1) lpfp-kz-uoqm counseling as noted above 2) reviewing past medical records, cardiac testing, results of laboratory testing 3) coordinating care with other physicians and allied health care providers Delfina Alexandre MD, Vonnie, FACC, FNLA Attending Show Host/Hostess Sports Cardiology Program Preventive Cardiology Lipid Clinic Advanced Hypertension Clinic documented in this encounter Plan of Treatment Upcoming Encounters Date Type Department Care Team (Late st Contact Info) Description 03/13/2024 9:45 AM EDT Office Visit Dermatology at [place] [address] [place] [address] Emiliano Salinas MD [address], [place] [address] documented as of this encounter Results * [...] 1950 ? Height: 161 cm ? Account: [id number] Age: 72 yrs ? Weight: 72 kg Gender: Female ?BSA: 1.8 m2 Ordering Physician: DELFINA ALEXANDRE Referring Physician: DELFINA ALEXANDRE Performed By: SOO Woods Reason For Study: Abnormal EKG Exam Location: [facility]. Interpretation Summary IMPRESSION: There was no [...] 68 : 1950 Height: 161 cm Account: [id number] Age: 72 yrs Weight: 72 kg Gender: Female BSA: 1.8 m2 Ordering Physician: DELFINA ALEXANDRE Referring Physician: DELFINA ALEXANDRE Performed By: SOO Woods Reason For Study: Abnormal EKG Exam Location: [facility]. Interpretation Summary IMPRESSION: There was no [...] type documented in this encounter Care Teams Human Resources Vice President Relationship Specialty Start Date End Date Mary Altamirano MD PCP - General Family Medicine 01/26/22 08/26/22 documented as of this encounter
--- OUTSIDE RECORDS SUMMARY | 2024-02-24 15:02 | XMS_ITS | Encounter Summary ---
Author Organization [facility] [place] [address] Care Team Providers Care Director Radiation Oncology Name Role Phone Mary Altamirano MD Primary Care Provider [phone] Encounter Details Date Type Department Care Team [...] 9:45 AM EDT Office Visit Dermatology at [place] [address] [facility] [place] [address] Emiliano Salinas MD [address], MANINDER [place] [address] documented as of this encounter Visit Diagnoses Not on filedocumented in this encounter Care Teams Director Radiation Oncology Relationship Specialty Start Date End Date Mary Altamirano MD PCP - General Family Medicine 01/26/22 08/26/22 documented as of this encounter
--- OUTSIDE RECORDS SUMMARY | 2024-02-24 15:02 | XMS_ITS | Encounter Summary ---
Author Organization [facility] [place] [address] Care Team Providers Care Plate Molder Name Role Phone Mary Altamirano MD [...] 9:45 AM EDT Office Visit Dermatology at [place] [address] [facility] [place] [address] Emiliano Salinas MD [address], MANINDER [place] [address] documented as of this encounter Visit Diagnoses Not on filedocumented in this encounter Care Teams Plate Molder Relationship Specialty Start Date End Date Mary Altamirano MD PCP - General Family Medicine 01/26/22 08/26/22 documented as of this encounter
--- OUTSIDE RECORDS SUMMARY | 2024-02-24 15:02 | XMS_ITS | Encounter Summary ---
Author Organization [facility] [place] [address] Care Team Providers Care Exhibit Preparator Name Role Phone Mary Altamirano MD Primary [...] 9:45 AM EDT Office Visit Dermatology at [place] [address] [facility] [place] [phone] Emiliano Salinas MD [address], [place]IND[place] [address] documented as of this encounter Visit Diagnoses Not on filedocumented in this encounter Care Teams Exhibit Preparator Relationship Specialty Start Date End Date Mary Altamirano MD PCP - General Family Medicine 01/26/22 08/26/22 documented as of this encounter
--- OUTSIDE RECORDS SUMMARY | 2024-02-24 15:02 | XMS_ITS | Encounter Summary ---
Author Organization [facility] [place] [address] Care Team Providers Care Medical Translator Name Role Phone Veronica Barrios Liyah VALDES Primary Care Provider [phone] Encounter Details Date Type Department Care Team (Late st Contact Info) Description 09/26/2022 Telephone Cardiology at [address] [place] [address] Liam Noel MD [facility] [place] [address] Social History Tobacco Use Types Packs/Day Years [...] faulty and did not work. She called [employer] and they are going to send a request to Dr Noel. Then they will mail them to her. Please call her @ [phone] documented in this encounter Plan of Treatment Upcoming Encounters Date Type Department Care Team (Late st Contact Info) Description 03/13/2024 9:45 AM EDT Office Visit Dermatology at [place] [address] [place] [address] Emiliano Salinas MD [address] [facility], [place] [address] documented as of this encounter Visit Diagnoses Not on filedocumented in this encounter Care Teams Medical Translator Relationship Specialty Start Date End Date Veronica Barrios APRN [address] [place] [address] PCP - General Family Medicine 08/27/22 03/17/23 documented as of this encounter
--- OUTSIDE RECORDS SUMMARY | 2024-02-24 15:02 | XMS_ITS | Encounter Summary ---
[place] [address] Care Team Providers Care Cnc Manufacturing Engineer Name Role Phone Veronica Barrios APRN Primary Care Provider Reason for Referral * Consultation (Urgent) - Closed Specialty Diagnoses / Procedures Referred By Contsherry t Referred To Contact Cardiology Diagnoses Familial hypercholesterolemia Familial hypercholesterolemia. Veronica Barrios APRN [address] [place] [address] [facility] Cardiology [address] [place] [address] Referral ID Status Reason Start Date Expiration Date V isits Requested Visits Authorized [id number] Closed Consult, Test & Treat PCP Updated and/or Approved 08/27/2022 08/27/2023 6 6 Encounter Details Date Type Department Care Team (Latest Contact Info) Description 08/27/2022 Transcribe Orders eDH Incoming Referrals [phone] Veronica Barrios APRN [address] [place] [address] Familial hypercholesterolemia Social History Tobacco [...] 9:45 AM EDT Office Visit Dermatology at [place] [address] [facility] [place] [address] Emiliano Salinas MD [address] [facility], [place] [address] Scheduled Referrals Name Type Priority Associated Diagnoses Orde r Schedule Referral to Cardiology Outpatient Referral Urgent Familial hypercholesterolemia Ordered: 08/27/2022 documented as of this encounter Visit Diagnoses Diagnosis Familial hypercholesterolemia Pure hypercholesterolemia documented in this encounter Care Teams Cnc Manufacturing Engineer Relationship Specialty Start Date End Date Veronica Barrios APRN [address] [place] [address] PCP - General Family Medicine 08/27/22 03/17/23 documented as of this encounter
--- OUTSIDE RECORDS SUMMARY | 2024-02-24 15:02 | XMS_ITS | Encounter Summary ---
Author Organization [facility] [place] [address] Care Team Providers Care Transfer Car Operator Drier Name Role Phone Mary Altamirano MD Primary Care Provider Reason for Referral * Diagnostic Test (Routine) - Closed Specialty Diagnoses / Procedures Referred By Contac t Referred To Contact Diagnoses Familial hypercholesterolemia THERESA (obstructive sleep apnea) Dyspnea, unspecified type Procedures Echocardiogram Stress (Treadmill) Delfina Alexandre MD [facility] [place] [address] [facility] [place] [address] Referral ID Status Reason Start Date Expiration Date V isits Requested Visits Authorized [id number] Closed Specialty Service Requested 05/21/2022 05/21/2023 1 1 Reason for Visit * Diagnostic Test (Routine) - Closed Specialty Diagnoses / Procedures Referred By Contac t Referred To Contact Diagnoses Familial hypercholesterolemia THERESA (obstructive sleep apnea) Dyspnea, unspecified type Procedures Echocardiogram Stress (Treadmill) Delfina Alexandre MD [facility] [place] [address] [facility] [place] [address] Referral ID Status Reason Start Date Expiration Date V isits Requested Visits Authorized [id number] Closed Specialty Service Requested 05/21/2022 05/21/2023 1 1 Encounter Details Date Type Department Care Team (Latest Contact Info) Description 08/01/2022 8:01 AM EST - 08/01/2022 11:59 PM EST Hospital Encounter Non-Invasive [place] [address] Delfina Alexandre MD [facility] [place], [place] [id number] Familial hypercholesterolemi a; THERESA (obstructive sleep apnea); [...] End Date fluticasone propionate (Flonase) 50 mcg/actuation [place], Suspension Every 12 hours. 10/17/2020 meloxicam (Mobic) [...] azelastine (ASTELIN) 137 mcg (0.1 %) Aerosol, [place] 0 11/06/2017 0 3 ASCORBATE CALCIUM (VITAMIN C ORAL) Take by mouth. 3 ERGOCALCIFEROL, VITAMIN D2, (VITAMIN D ORAL) Take by mouth. 09/03 3 multivitamin (THERAGRAN) tablet Take 1 tablet by mouth daily. 3 fexofenadine (EVANGELINA) 180 mg tablet 180 mg, PO, Once daily 08/28/2010 3 Mometasone (NASONEX) 50 mcg/Actuation [place] 2 [place](s) each nostril, Nasal, Twice daily 08/28/2010 3 documented as of this encounter Plan of Treatment Upcoming Encounters Date Type Department Care Team (Late st Contact Info) Description 03/13/2024 9:45 AM EDT Office Visit Dermatology at [place] [address] [place] [address] Emiliano Salinas MD [address], BAKAR[place] [address] documented as of this encounter Procedures Procedure Name Priority Date/Time Associated Diagnosis Comments STRESS ECHO W LMTD SPEC DOPP COLOR DOPP Routine 08/01/2022 9:19 AM EST Familial hypercholesterolemia THERESA (obstructive sleep apnea) Dyspnea, unspecified type documented in this encounter Results * STRESS ECHO W LMTD SPEC DOPP COLOR DOPP (08/01/2022 9:19 AM EST) EF 65 [employer] Anatomical Region Laterality Modality Cardiac Other 08/01/2022 8:38 AM EST Narrative 08/01/2022 9:38 AM EST ? Exercise Stress Echocardiogram Report Name: ARNOLDYESSENIA Meyer ?Study Date: 08/01/2022 08:38 AMBP: 142/74 mmHg ? Patient Location: 4A ? HR: 69 : 1950 ? Height: 161 cm ? Account: [id number] Age: 72 yrs ? Weight: 72 kg Gender: Female ?BSA: 1.8 m2 Ordering Physician: DELFINA ALEXANDRE Referring Physician: DELFINA ALEXANDRE Performed By: SOO Woods Reason For Study: Abnormal EKG Exam Location: [facility]. Interpretation Summary IMPRESSION: There was no evidence [...] 69 : 1950 Height: 161 cm Account: [id number] Age: 72 yrs Weight: 72 kg Gender: Female BSA: 1.8 m2 Ordering Physician: DELFINA ALEXANDRE Referring Physician: DELFINA ALEXANDRE Performed By: SOO Woods Reason For Study: Abnormal EKG Exam Location: [facility]. Interpretation Summary IMPRESSION: There was no evidence [...] type documented in this encounter Care Teams Transfer Car Operator Drier Relationship Specialty Start Date End Date Mary Altamirano MD PCP - General Family Medicine 01/26/22 08/26/22 documented as of this encounter
--- OUTSIDE RECORDS SUMMARY | 2024-02-24 15:02 | XMS_ITS | Encounter Summary ---
Author Organization [facility] Address [facility] [place] [address] Care Team Providers Care Explosive Specialist Name Role Phone Veronica Barrios POCKET CLOSER Primary Care Provider Reason for Visit * Reason Comments Skin Problem Encounter Details Date Type Department Care Team (Late st Contact Info) Description 08/30/2022 8:45 AM EDT Office Visit Dermatology at [facility] [address] [place] [address] Star Moura MD [facility] [address] [place] [address] Encounter for cosmetic procedure Social History Tobacco [...] glabella & forehead & crows feet. LOT: [id number] EXP:2023-06 3. Post-injection care reviewed. Call with [...] by Star Moura MD Department of Dermatology [facility] documented in this encounter Plan of Treatment Upcoming Encounters Date Type Department Care Team (Late st Contact Info) Description 03/13/2024 9:45 AM EDT Office Visit Dermatology at [place] [address] [place] [phone] Emiliano Salinas MD [address] [facility], [place] [address] documented as of this encounter Visit Diagnoses Diagnosis Encounter for cosmetic procedure documented in this encounter Care Teams Explosive Specialist Relationship Specialty Start Date End Date Veronica Barrios APRN [address] [place] [address] PCP - General Family Medicine 08/27/22 03/17/23 documented as of this encounter
--- OUTSIDE RECORDS SUMMARY | 2024-02-24 15:02 | XMS_ITS | Encounter Summary ---
Author Organization [facility] [place] [address] Care Team Providers Care Travel Services Professional Name Role Phone Veronica Barrios KEISHA Primary Care Provider Reason for Visit * Reason Comments Skin Lesion Encounter Details Date Type Department Care Team (Late st Contact Info) Description 08/30/2022 9:00 AM EDT Office Visit Dermatology at [facility] [address] [place] [address] Star Moura MD [facility] [address] [place] [address] Encounter for cosmetic laser procedure Social History [...] and signed by: Star Moura MD Dermatology [facility] documented in this encounter Plan of Treatment Upcoming Encounters Date Type Department Care Team (Late st Contact Info) Description 03/13/2024 9:45 AM EDT Office Visit Dermatology at [place] [address] [place] [address] Emiliano Salinas MD [address] [facility], [place]IND[place] [address] documented as of this encounter Visit Diagnoses Diagnosis Encounter for cosmetic laser procedure documented in this encounter Care Teams Travel Services Professional Relationship Specialty Start Date End Date Veronica Barrios APRN [address] [place] [address] PCP - General Family Medicine 08/27/22 03/17/23 documented as of this encounter
--- OUTSIDE RECORDS SUMMARY | 2024-02-24 15:02 | XMS_ITS | Encounter Summary ---
Author Organization [facility] [place] [address] Care Team Providers Care Supervisor Boatbuilders Wood Name Role Phone Veronica Barrios Liyah VALDES Primary Care Provider Encounter Details Date Type Department Care Team (Late st Contact Info) Description 08/27/2022 Telephone Cardiology at [address] [place] [place] [address] Liam Noel MD [facility] [place] [address] Social History Tobacco Use Types Packs/Day Years [...] as Dr Santiago is no longer at [facility]. Return call to Yessenia voice message left [...] and she should hear back from someone. [phone] documented in this encounter Plan of Treatment Upcoming Encounters Date Type Department Care Team (Late st Contact Info) Description 03/13/2024 9:45 AM EDT Office Visit Dermatology at [address] [place] [address] Emiliano Salinas MD [address] [facility], BAKAR[place] [address] documented as of this encounter Visit Diagnoses Not on filedocumented in this encounter Care Teams Supervisor Boatbuilders Wood Relationship Specialty Start Date End Date Veronica Barrios APRN [address] [place] [address] PCP - General Family Medicine 08/27/22 03/17/23 documented as of this encounter
--- OUTSIDE RECORDS SUMMARY | 2024-02-24 15:02 | XMS_ITS | Encounter Summary ---
Author Organization [facility] [place] [address] Care Team Providers Care Lime Plant Operator Name Role Phone Mary Altamirano MD [...] 9:45 AM EDT Office Visit Dermatology at [place] [address] [facility] [place] [phone] Emiliano Salinas MD [address], MANINDER [place] [address] documented as of this encounter Visit Diagnoses Not on filedocumented in this encounter Care Teams Lime Plant Operator Relationship Specialty Start Date End Date Mary Altamirano MD PCP - General Family Medicine 01/26/22 08/26/22 documented as of this encounter
--- OUTSIDE RECORDS SUMMARY | 2024-02-24 15:02 | XMS_ITS | Encounter Summary ---
Author Organization [facility] [place] [address] Care Team Providers Care Triage Technician Name Role Phone Veronica Barrios Liyah VALDES Primary Care Provider [phone] Encounter Details Date Type Department Care Team (Late st Contact Info) Description 02/06/2023 Telephone Cardiology at [address] [place] [address] Liam Noel MD [facility] [place] [address] Social History Tobacco Use Types Packs/Day Years [...] Lab orders verified and will fax to [facility] lab per patient request. documented in this encounter Plan of Treatment Upcoming Encounters Date Type Department Care Team (Late st Contact Info) Description 03/13/2024 9:45 AM EDT Office Visit Dermatology at [place] [address] [facility] [place] [address] Emiliano Salinas MD [address] [facility], BAKARI [place] [address] documented as of this encounter Visit Diagnoses Not on filedocumented in this encounter Care Teams Triage Technician Relationship Specialty Start Date End Date Veronica Barrios APRN [address] [place] [address] PCP - General Family Medicine 08/27/22 03/17/23 documented as of this encounter
--- OUTSIDE RECORDS SUMMARY | 2024-02-24 15:02 | XMS_ITS | Encounter Summary ---
Author Organization [facility] [place] [address] Care Team Providers Care White Sugar Boiler Name Role Phone Mary Altamirano MD Primary Care Provider [phone] Encounter Details Date Type Department Care Team [...] 9:45 AM EDT Office Visit Dermatology at [place] [address] [place] [address] Emiliano Salinas MD [address], [place]IND[place] [address] documented as of this encounter Visit Diagnoses Not on filedocumented in this encounter Care Teams White Sugar Boiler Relationship Specialty Start Date End Date Mary Altamirano MD PCP - General Family Medicine 01/26/22 08/26/22 documented as of this encounter
--- OUTSIDE RECORDS SUMMARY | 2024-02-24 15:02 | XMS_ITS | Encounter Summary ---
[place] [address] Care Team Providers Care Reporting Analyst Name Role Phone Mary Altamirano MD Primary Care Provider [phone] Reason for Visit * Reason Onset Date Comments Medication Refill 08/13/2022 Repatha 90 day supply requestPharmacy change to [facility] Encounter Details Date Type Department Care Team (Late st Contact Info) Description 08/13/2022 Refill Cardiology at [address] [address] Ana Horan national accounts sales Refill (Repatha 90 day supply request/Pharmacy change to [facility] in [facility]/) Social History Tobacco Use Types Packs/Day [...] 9:45 AM EDT Office Visit Dermatology at [place] [address] [place] [address] Emiliano Salinas MD [address] [address], MANINDER [place] [address] documented as of this encounter Visit Diagnoses Diagnosis Familial hypercholesterolemia Pure hypercholesterolemia documented in this encounter Care Teams Reporting Analyst Relationship Specialty Start Date End Date Mary Altamirano MD PCP - General Family Medicine 01/26/22 08/26/22 documented as of this encounter
--- OUTSIDE RECORDS SUMMARY | 2024-02-24 15:02 | XMS_ITS | Encounter Summary ---
Author Organization [facility] [place] [address] Care Team Providers Care Breakfast Bar Attendant Name Role Phone Mary Altamirano MD Primary Care Provider Encounter Details Date Type Department Care Team (Late st Contact Info) Description 08/01/2022 11:00 AM EST Office Visit Cardiology at [address] [place] [address] Delfina Santiago MD [facility] [place] [address] Nell Inman, [facility] Familial hypercholesterolemia; THERESA (obstructive sleep apnea); Dyspnea, [...] causing symptoms. 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 ??She was in 2002 and has had a significant other for many years. ??Her significant other (Deacon Peterson) lives in [place].?She has??5??children and 3 biologic and 8 step??grandchildren. [...] azelastine (ASTELIN) 137 mcg (0.1 %) Aerosol, [place] 0 ??? PROVENTIL HFA 90 mcg/actuation HFA [...] Once daily ??? 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 since 2002, boyfriend x 12 [...] previous lipid evaluation and recommendations; 30 minutes [id number] and 10 minutes coordination of care 1) qiao-[id number] counseling as noted above 2) reviewing past medical records, cardiac testing, results of laboratory testing 3) coordinating care with other physicians and allied health care providers This patient was seen and evaluated by both Delfina Santiago MD EdD [facility] JASON and Courtney Knapps part of a Collaborative Practice Agreement. Dr. Santiago supervised in and participated in all aspects of this appointment This clinic note includes: 1. History, Review of Symptoms, Examination, Vital Signs, Medication Review, Assessment and Plan byDelfina Santiago MD, Vonnie 2. Documentation of evaluation, recommendations, and counseling by Nell Inman PharmD. Delfina Santiago MD, Vonnie, ANJALI, JASON Attending Pipe Rol[employer] Sports Cardiology Program Preventive Cardiology Lipid Clinic Advanced Hypertension Clinic * Nell Inman, [facility] - 08/01/2022 11:00 AM EST Cardiology Education: Multi-Specialty Visit Delfina Santiago MD, Vonnie, ANJALI, JASON & Nell Inman PharmD, [facility] Visit Type: [id number] Summary of Recommendations & Next Steps: The [...] management of hyperlipidemia. 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 She was in 2002. [...] Once daily ??? Mometasone (NASONEX) 50 mcg/Actuation [place] 2 [place](s) each nostril, Nasal, Twice daily ??? atorvastatin [...] azelastine (ASTELIN) 137 mcg (0.1 %) Aerosol, [place] 0 ??? PROVENTIL HFA 90 mcg/actuation HFA [...] 9:45 AM EDT Office Visit Dermatology at [place] [address] [facility] [place] [address] Emiliano Salinas MD [address], [place] [address] documented as of this encounter Visit Diagnoses Diagnosis Familial hypercholesterolemia Pure hypercholesterolemia THERESA (obstructive sleep apnea) Obstructive sleep apnea (adult) (pediatric) Dyspnea, unspecified type documented in this encounter Care Teams Breakfast Bar Attendant Relationship Specialty Start Date End Date Mary Altamirano MD PCP - General Family Medicine 01/26/22 08/26/22 documented as of this encounter
--- OUTSIDE RECORDS SUMMARY | 2024-02-24 15:02 | XMS_ITS | Encounter Summary ---
Author Organization [facility] [place] [address] Care Team Providers Care Tape Control Skin Or Spar Mill Operator Name Role Phone Veronica Barrios KEISHA Primary Care Provider Encounter Details Date Type Department Care Team (Late st Contact Info) Description 09/03/2022 Abstract Cardiology at [address] [address] Ashlyn Celis, RN Mixed hyperlipidemia [...] 9:45 AM EDT Office Visit Dermatology at [address] [address] Emiliano Salinas MD [address] [place] [address], [facility] [place] [address] documented as of this encounter Visit Diagnoses Diagnosis Mixed hyperlipidemia documented in this encounter Care Teams Tape Control Skin Or Spar Mill Operator Relationship Specialty Start Date End Date Veronica Barrios APRN [address] [place] [id number] PCP - General Family Medicine 08/27/22 03/17/23 documented as of this encounter
--- OUTSIDE RECORDS SUMMARY | 2024-02-24 15:02 | XMS_ITS | Encounter Summary ---
Author Organization [facility] [place] [address] Care Team Providers Care Diamond Selector Name Role Phone Mary Altamirano MD Primary Care Provider Encounter Details Date Type Department Care Team (Latest Contact Info) Description 04/23/2022 1:00 PM EST TH Visit (TeleHealth) Cardiology at [address] [address] Derick Acosta, [facility] [place] [address] Nutritional counseling Social History Tobacco Use Types [...] Vascular Center Cardiovascular Medicine Cardiology Nutrition [place] [address] , #2 eFax: NO SHOW 04/23/22 Identification Yessenia Luong is a 72 y.o. patient of Mary Campbell MD referred to Cardiology Dietitian Book Sewer By Delfina Santiago MD, Lipidologist, for nutrition [...] a 72-year-old patient of Delfina Santiago MD, Rubber Mold Maker, referred to cardiology RDN for hyperlipidemia in the setting of statin intolerance and PCSK9 intolerance. Patient's current dietary habits may be inadequate to achieve long-term health due to excessive saturated fatty acids resulting in elevated LDL, excess alcohol and/or carbohydrate intake resulting in elevated triglycerides. Today, Yessenai reports she has been diagnosed with milk [...] and coaching. cc: Mary Campbell MD [address] [facility] [place] [address] documented in this encounter Plan of Treatment Upcoming Encounters Date Type Department Care Team (Late st Contact Info) Description 03/13/2024 9:45 AM EDT Office Visit Dermatology at [address] [place] [address] Emiliano Salinas MD [address] [place] [address], [place] [address] documented as of this encounter Visit Diagnoses Diagnosis Nutritional counseling documented in this encounter Care Teams Diamond Selector Relationship Specialty Start Date End Date Mary Altamirano MD PCP - General Family Medicine 01/26/22 08/26/22 documented as of this encounter
--- OUTSIDE RECORDS SUMMARY | 2024-02-24 15:02 | XMS_ITS | Encounter Summary ---
Author Organization [facility] [place] [address] Care Team Providers Care Policy Service Coordinator Name Role Phone Mary Altamirano MD Primary Care Provider Encounter Details Date Type Department Care Team (Latest Contact Info) Description 04/10/2022 4:00 PM EDT TH Visit (TeleHealth) Cardiology at [address] [address] Derick Acosta, [facility] [place] [address] Nutritional counseling Social History Tobacco Use Types [...] Vascular Center Cardiovascular Medicine Cardiology Nutrition Assessment [facility] [place] [address] Initial Nutrition Assessment 04/09/22 Identification and Chief Complaint Yessenia Luong is a 72 y.o. patient of Mary Campbell MD referred to Cardiology Dietitian Crop Setting Out Machine Operator By Delfina Santiago MD, Lipidologist, for [...] 40% carbohydrate) with the goals: o Meet REMEDIAL MASSEUR for vitamin D, calcium, magnesium, and potassium [...] MD [address] [facility] [address] documented in this encounter Plan of Treatment Upcoming Encounters Date Type Department Care Team (Late st Contact Info) Description 03/13/2024 9:45 AM EDT Office Visit Dermatology at [place] [address] [facility] [place] [address] Emiliano Salinas MD [address] [facility] [address], BAKARI [place] [address] documented as of this encounter Visit Diagnoses Diagnosis Nutritional counseling documented in this encounter Care Teams Policy Service Coordinator Relationship Specialty Start Date End Date Mary Altamirano MD PCP - General Family Medicine 01/26/22 08/26/22 documented as of this encounter
--- OUTSIDE RECORDS SUMMARY | 2024-02-24 15:03 | XMS_ITS | Encounter Summary ---
[place] [address] Care Team Providers Care Regional Sales Leader Name Role Phone Juan Smith MD Primary Care Provider [phone] Reason for Referral * Consultation (Routine) - Closed Specialty Diagnoses / Procedures Referred By Veronica bratnley Referred To Contact Vascular Surgery Diagnoses Peripheral venous insufficiency TANSKI / TESTING DONE Ester Gupta DO [address] [place] [address] [address] [place] [address] [facility] [address] [place] [address] Referral ID Status Reason Start Date Expiration Date V isits Requested Visits Authorized [id number] Closed Consult, Test & Treat 01/14/2022 01/14/2023 1 1 Encounter Details Date Type Department Care Team (Latest Contact Info) Description 01/14/2022 Transcribe Orders eDH Incoming Referrals [phone] Ester Gupta DO [address] [place] [address] [address] [place], [place] [id number] Peripheral venous insufficiency Social History Tobacco Use [...] 9:45 AM EDT Office Visit Dermatology at [place] [address] [facility] [place] [address] Emiliano Salinas MD [address], [place] [address] Scheduled Referrals Name Type Priority Associated Diagnoses Orde r Schedule Referral to Vascular Surgery Outpatient Referral Routine Peripheral venous insufficiency Ordered: 01/14/2022 documented as of this encounter Visit Diagnoses Diagnosis Peripheral venous insufficiency Unspecified venous (peripheral) insufficiency documented in this encounter Care Teams Regional Sales Leader Relationship Specialty Start Date End Date Juan Smith MD PCP - General Family Medicine 10/12/21 01/25/22 documented as of this encounter
--- OUTSIDE RECORDS SUMMARY | 2024-02-24 15:03 | XMS_ITS | Encounter Summary ---
[place] [address] Care Team Providers Care Sleeping Bag Filler Name Role Phone Juan Smith MD Primary Care Provider Encounter Details Date Type Department Care Team (Late st Contact Info) Description 01/12/2020 Telephone Cardiology at [address] [phone] Tory Olivas, RN Social History Tobacco Use [...] 9:45 AM EDT Office Visit Dermatology at [place] [address] [facility] [place] [address] Emiliano Salinas MD [address], [place] [address] documented as of this encounter Visit Diagnoses Not on filedocumented in this encounter Care Teams Sleeping Bag Filler Relationship Specialty Start Date End Date Juan Smith MD PCP - General Family Medicine 05/10/16 09/02/21 documented as of this encounter
--- OUTSIDE RECORDS SUMMARY | 2024-02-24 15:03 | XMS_ITS | Encounter Summary ---
Author Organization [facility] [place] [address] Care Team Providers Care State Inspector Name Role Phone Juan Smith MD Primary Care Provider [phone] Encounter Details Date Type Department Care Team (Latest Contact Info) Description 04/17/2019 11:20 AM EST Clinical Support Cardiology at [address] [address] Derick Acosta, RD [facility] [place] [address] Nutritional counseling Social History Tobacco Use Types [...] iodine and omega 3 FAs b) Reduce nhx-wnwzwiwn-ljuwo foods NUTRITION MONITORING PLAN/EVALUATION/SURVEILLANCE PLAN: I will e-mail patient recipes for: veg soup, corn/seafood chowder, greene burger, or any others [email or web address] Patient to try the 3-day menus and [...] EDT Office Visit Dermatology at [place] [address] [place] [address] Emiliano Salinas MD [address], [place] [address] documented as of this encounter Visit Diagnoses Diagnosis Nutritional counseling documented in this encounter Care Teams State Inspector Relationship Specialty Start Date End Date Juan Smith MD PCP - General Family Medicine 05/10/16 09/02/21 documented as of this encounter
--- OUTSIDE RECORDS SUMMARY | 2024-02-24 15:03 | XMS_ITS | Encounter Summary ---
Author Organization [facility] Address [facility] [place] [address] Care Team Providers Care Cleaning And Maintenance Worker Name Role Phone Juan Smith MD Primary Care Provider [phone] Encounter Details Date Type Department Care Team (Late st Contact Info) Description 03/16/2019 Telephone Dermatology at [facility] [address] [place] [phone] Vern Salmeron MD [facility] [place] [address] Social History Tobacco Use Types Packs/Day Years [...] on 03/12. Patient can be reached at [phone] documented in this encounter Plan of Treatment Upcoming Encounters Date Type Department Care Team (Late st Contact Info) Description 03/13/2024 9:45 AM EDT Office Visit Dermatology at [place] [address] [place] [address] Emiliano Salinas MD [address] [facility], [place] [address] documented as of this encounter Visit Diagnoses Not on filedocumented in this encounter Care Teams Cleaning And Maintenance Worker Relationship Specialty Start Date End Date Juan Smith MD PCP - General Family Medicine 05/10/16 09/02/21 documented as of this encounter
--- OUTSIDE RECORDS SUMMARY | 2024-02-24 15:03 | XMS_ITS | Encounter Summary ---
[place] [address] Care Team Providers Care Geological Engineer Name Role Phone Juan Smith MD Primary Care Provider [phone] Reason for Visit * Reason Comments Medication Refill Encounter Details Date Type Department Care Team (Late st Contact Info) Description 05/14/2021 Refill Cardiology at [address] [phone] Tory Montalvo MD Medication Refill Social History [...] AM EDT Office Visit Dermatology at [address] [place] [phone] Emiliano Salinas MD [address], [place] [address] documented as of this encounter Visit Diagnoses Diagnosis Familial hypercholesterolemia Pure hypercholesterolemia documented in this encounter Care Teams Geological Engineer Relationship Specialty Start Date End Date Juan Smith MD PCP - General Family Medicine 10/12/21 01/25/22 documented as of this encounter
--- OUTSIDE RECORDS SUMMARY | 2024-02-24 15:03 | XMS_ITS | Encounter Summary ---
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, pt would like to transfer care to Mary Sands MD [address] [place] [address] [facility] [address] [place] [phone] Referral ID Status Reason Start Date Expiration Date V isits Requested Visits Authorized [id number] Closed Consult, Test & Treat PCP Updated and/or Approved 10/12/2021 10/12/2022 10 10 Encounter Details Date Type Department Care Team (Latest Contact Info) Description 11/24/2021 1:00 PM EDT Office Visit Cardiology at [address] [phone] Delfina Santiago MD [facility] [place] [address] Familial hypercholesterolemia Social History Tobacco Use [...] 412 LDL 296 HDL 93 TG 118 [address] total cholesterol 273 LDL 151 HDL 75 [...] symptoms. 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 ??She was in 2002 and has had a significant other for many years. ??Her significant other (Yoshalom Peterson) lives in [place].?She has??5??children and 3 biologic and 8 step??grandchildren. [...] azelastine (ASTELIN) 137 mcg (0.1 %) Aerosol, [place] 0 ??? PROVENTIL HFA 90 mcg/actuation HFA [...] Once daily ??? 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 Social [...] about 6 weeks. These will be at [facility] 01/22/22 ADDENDUM 01/17/22 apoB 89Lp(a) 19.8 (ULN < 75) Total cholesterol 212 LDL 115 HDL 59 TG 190 Time spent for this clinic appointment on the date of service includes: 25 minutes review of her chart and previous lipid evaluation and recommendations; 30 minutes axss-ws-aplt and 10 minutes coordination of care 1) wcxd-qj-ymbx counseling as noted above 2) reviewing past medical records, cardiac testing, results of laboratory testing 3) coordinating care with other physicians and allied health care providers Delfina Santiago MD, Vonnie, FACC, FNLA Attending [facility] Preventive Cardiology Lipid Clinic Advanced Hypertension Clinic documented in this encounter Plan of Treatment Upcoming Encounters Date Type Department Care Team (Late st Contact Info) Description 03/13/2024 9:45 AM EDT Office Visit Dermatology at [place] [address] [facility] [place] [phone] Emiliano Salinas MD [address], [place] [address] documented as of this encounter Results * Apolipoprotein B (02/16/2022 11:50 AM EDT) Pathologist [facility] Apolipoprotein B (OCTOBER) 84 mg/dL [facility] Comment: REFERENCE VALUE Desirable: <90 Above Desirable: 90-99 Borderline high: 100-119 High: 120-139 Very high: > or = 140 Test Performed by: [address] [address] Eye Technician: Kyle Michel M.D. Ph.D.; CLIA# [id number] Blood 02/16/2022 11:5 0 AM EDT 02/16/2022 3:50 PM EDT Narrative Resulting Agency Comment Spec In Lab Delfina aSntiago MD LAB SEND OUT ORDERAB LES [facility] [place] [place] [address] * Lipoprotein A (02/16/2022 11:50 AM EDT) [...] considered a risk enhancing factor by the [place] [employer]. This test has been modified from the bricklayer paving brick's instructions. Its performance characteristics were determined by [facility] in a manner consistent with CLIA requirements. This test has not been cleared or approved by the U.S. Food and Drug Administration. Test Performed by: [facility] - [address] [address] Eye Technician: Kyle Michel M.D. Ph.D.; CLIA# [id number] Blood 02/16/2022 11:5 0 AM EDT 02/16/2022 3:50 PM EDT Narrative Resulting Agency Comment Spec In Lab Delfina Santiago MD LAB SEND OUT ORDERAB LES [facility] [place] [address] documented in this encounter Visit Diagnoses Diagnosis Familial hypercholesterolemia Pure hypercholesterolemia documented in this encounter Care Teams Physician Office Rep Relationship Specialty Start Date End Date Juan Smith MD PCP - General Family Medicine 10/12/21 01/25/22 documented as of this encounter
--- OUTSIDE RECORDS SUMMARY | 2024-02-24 15:03 | XMS_ITS | Encounter Summary ---
[place] [address] Care Team Providers Care Solar System Designer Name Role Phone Juan Smith MD Primary Care Provider [phone] Encounter Details Date Type Department Care Team (Latest Contact Info) Description 03/12/2019 9:25 AM EDT - 03/12/2019 11:59 PM EDT Hospital Encounter [place] [phone] Tory Montalvo MD Chest pain, unspecified type; [...] daily 08/28/2010 09/03/2022 Mometasone (NASONEX) 50 mcg/Actuation [place] 2 [place](s) each nostril, Nasal, Twice daily 08/28/2010 09/03/2022 documented as of this encounter Plan of Treatment Upcoming Encounters Date Type Department Care Team (Late st Contact Info) Description 03/13/2024 9:45 AM EDT Office Visit Dermatology at [place] [address] [place] [address] Emiliano Salinas MD [address], BAKARI Nova [place] [address] documented as of this encounter Procedures Procedure [...] breath documented in this encounter Care Teams Solar System Designer Relationship Specialty Start Date End Date Juan Smith MD PCP - General Family Medicine 05/10/16 09/02/21 documented as of this encounter
--- OUTSIDE RECORDS SUMMARY | 2024-02-24 15:03 | XMS_ITS | Encounter Summary ---
[place] [address] Care Team Providers Care Photography Spotter Name Role Phone Mary Altamirano MD Primary Care Provider [phone] Reason for Visit * Reason Onset Date Comments Prior Authorization 10/10/2021 Nexletol PA renewal Encounter Details Date Type Department Care Team (Late st Contact Info) Description 10/10/2021 Telephone Cardiology at [address] [phone] Rere Stock electronic game developer (Nexletol PA renewal) Social History Tobacco Use [...] left for the pt to call this sheet writer to confirm that she is taking the medication and at what dose. She is also needing to schedule a f/u visit w/Dr Montalvo. Call placed to the [facility] pharmacy in [place], [place] phone [phone] S/w pharmacy staff. The prescription was processed. Pt's co-pay is $60/90 day supply. They will have to order the medication. It should been in by 10/13/21. Awaiting a call back from the pt to get/give the above information. * Telephone Encounter - Rere Stock RN - 10/10/2021 7:16 PM EDT PA request received from [employer] in [place], [place] phone [phone] for Nexletol. Request processed via Cover My Meds. Insurance information: [facility] managed Medicare. ID#: [id number] BIN: [id number] PCN: [employer] GR: [id number] Yessenia Ag Gonsales: [id number] - PA help? Call us at Outcome Approvedtoday CaseId:[id number];Status:Approved;Review Type:Prior Auth;Coverage Start Date:09/10/2021;Coverage End Date:10/10/2022; Drug Nexletol 180MG tablets Form [employer] Electronic PA Form (2016 NCPDP) documented in this encounter Plan of Treatment Upcoming Encounters Date Type Department Care Team (Late st Contact Info) Description 03/13/2024 9:45 AM EDT Office Visit Dermatology at [place] [address] [place] [phone] Emiliano Salinas MD [address], [place] [address] documented as of this encounter Visit Diagnoses Not on filedocumented in this encounter Care Teams Photography Spotter Relationship Specialty Start Date End Date Mary Altamirano MD PCP - General Family Medicine 09/03/21 10/11/21 documented as of this encounter
--- OUTSIDE RECORDS SUMMARY | 2024-02-24 15:03 | XMS_ITS | Encounter Summary ---
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 She was in 2002 and has had a significant other for many years. Boyfriend (Deacon Peterson) lives in [place]. She has 5 children (2 biologic and [...] azelastine (ASTELIN) 137 mcg (0.1 %) Aerosol, [place] 0 ??? PROVENTIL HFA 90 mcg/actuation HFA [...] Once daily ??? Mometasone (NASONEX) 50 mcg/Actuation [place] 2 [place](s) each nostril, Nasal, Twice daily No current [...] 9:45 AM EDT Office Visit Dermatology at [place] [address] [facility] [place] [address] Emiliano Salinas MD [address], [place] [address] documented as of this encounter Visit Diagnoses Diagnosis Familial hypercholesterolemia Pure hypercholesterolemia documented in this encounter Care Teams Instrument Room Technician Relationship Specialty Start Date End Date Juan Smtih MD PCP - General Family Medicine 05/10/16 09/02/21 documented as of this encounter
--- OUTSIDE RECORDS SUMMARY | 2024-02-24 15:03 | XMS_ITS | Encounter Summary ---
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 She was in 2002 and has had a significant other for many years. Boyfriend (Deacon Peterson) lives in [place]. She has 5 children (2 biologic and [...] azelastine (ASTELIN) 137 mcg (0.1 %) Aerosol, [place] 0 ??? PROVENTIL HFA 90 mcg/actuation HFA [...] Once daily ??? Mometasone (NASONEX) 50 mcg/Actuation [place] 2 [place](s) each nostril, Nasal, Twice daily No current facility-administered medications for this visit. Allergies Bee pollen, Morphine, Sulfa (sulfonamide antibiotics), and Voltaren [diclofenac sodium] Physical Exam not performed - [facility] Labs Total cholesterol 168 mg/dL Triglycerides [...] She will have her labs drawn at [facility] in [facility] about a week before her [...] 9:45 AM EDT Office Visit Dermatology at [place] [address] [place] [address] Emiliano Salinas MD [address], [place]AR[place] [address] documented as of this encounter Visit Diagnoses Diagnosis Familial hypercholesterolemia Pure hypercholesterolemia documented in this encounter Care Teams Agency Director Relationship Specialty Start Date End Date Juan Smith MD PCP - General Family Medicine 05/10/16 09/02/21 documented as of this encounter
--- OUTSIDE RECORDS SUMMARY | 2024-02-24 15:03 | XMS_ITS | Encounter Summary ---
[place] [address] Care Team Providers Care Fuel Cell Builder Name Role Phone Juan Smith MD Primary Care Provider [phone] Reason for Visit * Reason Onset Date Comments Questions 04/04/2021 cholesterol med restart Encounter Details Date Type Department Care Team (Late st Contact Info) Description 04/04/2021 Telephone Cardiology at [address] [phone] Rere Stock, RN Questions (cholesterol med restart) [...] left for the pt to call this job specification writer to see if her symptoms have resolved and when she is going to restart her meds. Awaiting a call back documented in this encounter Plan of Treatment Upcoming Encounters Date Type Department Care Team (Late st Contact Info) Description 03/13/2024 9:45 AM EDT Office Visit Dermatology at [place] [address] [place] [address] Emiliano Salinas MD [address], [place] [address] documented as of this encounter Visit Diagnoses Not on filedocumented in this encounter Care Teams Fuel Cell Builder Relationship Specialty Start Date End Date Juan Smith MD PCP - General Family Medicine 05/10/16 09/02/21 documented as of this encounter
--- OUTSIDE RECORDS SUMMARY | 2024-02-24 15:03 | XMS_ITS | Encounter Summary ---
[place] [address] Care Team Providers Care Senior Systems Administrator Name Role Phone Juan Smith MD Primary Care Provider [phone] Reason for Visit * Reason Onset Date Comments Follow-up 11/20/2021 FLP & Uric acid prior to next clinic visit Encounter Details Date Type Department Care Team (Late st Contact Info) Description 11/20/2021 Telephone Cardiology at [address] [phone] Ana Horan RN Follow-up (FLP [...] visit with Dr Santiago. Orders e-faxed to [facility] as written by Dr Montalvo. Pt will get done Saturday am. Call placed to the mobile number listed, no answer, VM left letting her know that the orders have been faxed. She is to call if the folks at [facility] say they did not get the orders, we can refax before she leaves. Pt to call back with any questions/concerns. * Telephone Encounter - Ana Horan RN - 11/20/2021 11:58 AM EDT VM from [facility] requesting lab slips form Dr. Santiago and Selvin be sent to [facility] and she will have the lab [...] 9:45 AM EDT Office Visit Dermatology at [place] [address] [facility] [place] [address] Emiliano Salinas MD [address] [facility] [address] [address], [place] [address] documented as of this encounter Visit Diagnoses Not on filedocumented in this encounter Care Teams Senior Systems Administrator Relationship Specialty Start Date End Date Juan Smith MD PCP - General Family Medicine 10/12/21 01/25/22 documented as of this encounter
--- OUTSIDE RECORDS SUMMARY | 2024-02-24 15:03 | XMS_ITS | Encounter Summary ---
Author Organization [facility] [address] Care Team Providers Care Hoop Coiling Machine Operator Name Role Phone Juan Smith MD Primary Care Provider [phone] Reason for Visit * Reason Onset Date Comments Questions 12/29/2019 possible drug re action/side effects Encounter Details Date Type Department Care Team (Late st Contact Info) Description 12/29/2019 Telephone Cardiology at [address] [phone] Rere Stock, RN Questions (possible drug reaction/side [...] 9:45 AM EDT Office Visit Dermatology at [place] [address] [facility] [place] [address] Emiliano Salinas MD [address], BAKARI [place] [address] documented as of this encounter Visit Diagnoses Not on filedocumented in this encounter Care Teams Hoop Coiling Machine Operator Relationship Specialty Start Date End Date Juan Smith MD PCP - General Family Medicine 05/10/16 09/02/21 documented as of this encounter
--- OUTSIDE RECORDS SUMMARY | 2024-02-24 15:03 | XMS_ITS | Encounter Summary ---
[place] [address] Care Team Providers Care Recreation Therapist Name Role Phone Juan Smith MD Primary Care Provider [phone] Encounter Details Date Type Department Care Team (Latest Contact Info) Description 08/31/2020 Orders Only Cardiology at [address] [phone] Tory Montalvo MD Familial hypercholesterolemia Social History [...] 9:45 AM EDT Office Visit Dermatology at [place] [address] [place] [phone] Emiliano Salinas MD [address], BAKARI Bhatt DERMATOLOGY [place], [place] [phone] documented as of this encounter Results * Uric acid (02/16/2022 11:51 AM EDT) Uric Acid 5.4 2.5 - 6.5 mg/dL [facility] Blood 02/16/2022 11:5 1 AM EDT 02/16/2022 12:02 PM EDT Narrative Resulting Agency Comment Spec In Lab Tory Montalvo MD CHEMISTRY ORDERABLES Performing Organization Address City/State/[facility] Co de Phone Number [facility] [place] [phone] documented in this encounter Visit Diagnoses Diagnosis Familial hypercholesterolemia Pure hypercholesterolemia documented in this encounter Care Teams Recreation Therapist Relationship Specialty Start Date End Date Juan Smith MD PCP - General Family Medicine 05/10/16 09/02/21 documented as of this encounter
--- OUTSIDE RECORDS SUMMARY | 2024-02-24 15:03 | XMS_ITS | Encounter Summary ---
[facility] [place] [address] Care Team Providers Care Marker Machine Attendant Name Role Phone Juan Smith MD Primary Care Provider Reason for Referral * Diagnostic Test (Routine) - Closed Specialty Diagnoses / Procedures Referred By Contac t Referred To Contact Radiology Diagnoses Familial hypercholesterolemia Procedures CT Heart For Coronary Calcium wo Contrast (Prepaid) Tory Chambers MD [facility] [place] [place] [address] [facility] [place] [address] Referral ID Status Reason Start Date Expiration Date V isits Requested Visits Authorized [id number] Closed Specialty Service Requested 10/28/2020 04/30/2022 1 1 Encounter Details Date Type Department Care Team (Latest Contact Info) Description 10/28/2020 3:20 PM EDT Office Visit Cardiology at [address] [address] Tory Chambers MD Familial hypercholesterolemia [...] Chambers MD - 10/28/2020 3:20 PM EDT [facility] Lipid [facility]-Follow Up [...] history:??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 ??She was in 2002 and has had a significant other for many years. ??Her significant other (Deacon Peterson) lives in [place].?She has??5??children and 3 biologic and 8 step??grandchildren. [...] azelastine (ASTELIN) 137 mcg (0.1 %) Aerosol, [place] 0 ??? PROVENTIL HFA 90 mcg/actuation HFA [...] Once daily ??? Mometasone (NASONEX) 50 mcg/Actuation [place] 2 [place](s) each nostril, Nasal, Twice daily No current [...] 9:45 AM EDT Office Visit Dermatology at [place] [address] [facility] [place] [address] Emiliano Salinas MD [address] [facility], [place] [address] [phone] (work) documented as of this encounter Results [...] who have questions please contact the health managed care nurse that requested your imaging first. ? Electronically signed by: Celestina Murillo MD, [facility] ([phone]), at 02/16/2022 3:30 PM Narrative 02/16/2022 3:30 PM EDT EXAMINATION: CT HEART FOR CORONARY CALCIUM WO CONTRAST (PREPAID) CLINICAL HISTORY: Hyperlipidemia 120; patient with elevated LDL and side effects to medications COMPARISON: None. TECHNIQUE: 3.0 mm thick axial contiguous sections through the heart were obtained via ECG-gated axial mode acquisition without intravenous contrast. Craniocaudal coverage and fcuae-fg-[id number] were restricted to the heart. Post-processing was [...] Structures: No significant findings. Procedure Note Celestina Jmaes MD - 02/16/2022 EXAMINATION: CT HEART FOR CORONARY CALCIUM WO CONTRAST (PREPAID) CLINICAL HISTORY: Hyperlipidemia 120; patient with elevated LDL and side effects to medications COMPARISON: None. TECHNIQUE: 3.0 mm thick axial contiguous sections through the heart were obtained via ECG-gated axial mode acquisition without intravenouscontrast. Craniocaudal coverage and hypij-zq-mrym were restricted to the heart. Post-processing was [...] patients who have questions please contactthe health managed care nurse that requested your imaging first. Electronically signed by: Celestina Murillo MD, [facility] ([phone]), at 02/16/2022 3:30 PM Tory Chambers MD IMG CT ORDERABLES documented in this encounter Visit Diagnoses Diagnosis Familial hypercholesterolemia Pure hypercholesterolemia Familial hypercholesterolemia Pure hypercholesterolemia documented in this encounter Care Teams Marker Machine Attendant Relationship Specialty Start Date End Date Juan Smith MD PCP - General Family Medicine 05/10/16 09/02/21 documented as of this encounter
--- OUTSIDE RECORDS SUMMARY | 2024-02-24 15:03 | XMS_ITS | Encounter Summary ---
[place] [address] Care Team Providers Care Retirement Actuary Name Role Phone Juan Smith MD Primary Care Provider [phone] Reason for Visit * Reason Onset Date Comments Questions 06/15/2019 New Head Host/Hostess in [place], [place] Encounter Details Date Type Department Care Team (Late st Contact [facility]) Description 06/15/2019 Telephone Cardiology at [address] [phone] Rere Stock, RN Questions (New Head Host/Hostess in [place], [place]) Social History Tobacco Use Types Packs/Day [...] ask if she should see the new Head Host/Hostess in [place], [place]: Dr Álvaro Sanchez. Pt encouraged to keep her 06/22/19 appt to establish care with the local ocean rescue lieutenant as she had been seeing the previous ocean rescue lieutenant. She will Keep Dr Motnalvo for her lipid management. Pt verbalized good understanding of the current POC. documented in this encounter Plan of Treatment Upcoming Encounters Date Type Department Care Team (Late st Contact Info) Description 03/13/2024 9:45 AM EDT Office Visit Dermatology at [place] [address] [place] [address] Emiliano Salinas MD [address], [place]AR[place] [address] documented as of this encounter Visit Diagnoses Not on filedocumented in this encounter Care Teams Retirement Actuary Relationship Specialty Start Date End Date Juan Smith MD PCP - General Family Medicine 05/10/16 09/02/21 documented as of this encounter
--- OUTSIDE RECORDS SUMMARY | 2024-02-24 15:03 | XMS_ITS | Encounter Summary ---
Author Organization [facility] [place] [address] Care Team Providers Care Laserist Name Role Phone Mary Altamirano MD Primary Care Provider Reason for Visit * Consultation (Routine) - Closed Specialty Diagnoses / Procedures Referred By Veronica brantley Referred To Contact Vascular Surgery Diagnoses Peripheral venous insufficiency MARY / TESTING DONE Ester Gupta, [address] [place] [address] [facility] Vascular Surg [address] [address] Referral ID Status Reason Start Date Expiration Date V isits Requested Visits Authorized [id number] Closed Consult, Test & Treat 01/14/2022 01/14/2023 1 1 Encounter Details Date Type Department Care Team (Late st Contact Info) Description 02/16/2022 9:30 AM EDT Office Visit [place] [address] Kyle Pagan III, MD [address] [place] [address] [place] [address] Varicose veins of left lower extremity with [...] azelastine (ASTELIN) 137 mcg (0.1 %) Aerosol, [place], , Disp: , Rfl: 0 ??? PROVENTIL [...] , Rfl: ??? Mometasone (NASONEX) 50 mcg/Actuation [place], 2 [place](s) each nostril, Nasal, Twice daily, Disp: , [...] Visit from 02/16/2022 in Vascular Surgery at [facility] Weight 72.6 kg (160 lb) Height 161.3 [...] 9:45 AM EDT Office Visit Dermatology at [place] [address] [facility] [place] [address] Emiliano Salinas MD [address] [facility], BAKARI [place] [address] Scheduled Referrals Name Type Priority Associated Diagnoses Orde r Schedule Referral to Vascular Surgery Outpatient Referral Routine Peripheral venous insufficiency Ordered: 01/14/2022 documented as of this encounter Visit Diagnoses Diagnosis Varicose veins of left lower extremity with pain Varicose veins of lower extremities with other complications Venous insufficiency of both lower extremities documented in this encounter Care Teams Laserist Relationship Specialty Start Date End Date Mary Altamirano MD PCP - General Family Medicine 01/26/22 08/26/22 documented as of this encounter
--- OUTSIDE RECORDS SUMMARY | 2024-02-24 15:03 | XMS_ITS | Encounter Summary ---
Author Organization [facility] [place] [address] Care Team Providers Care Hot Header Operator Name Role Phone Juan Smith MD Primary Care Provider [phone] Reason for Visit * Reason Onset Date Comments Follow-up 04/26/2020 med change Encounter Details Date Type Department Care Team (Late st Contact Info) Description 04/26/2020 Telephone Cardiology at [address] [phone] Rere Stock, RN Follow-up (med change) Social [...] 9:45 AM EDT Office Visit Dermatology at [place] [address] [place] [address] Emiliano Salinas MD [address], [place] [address] documented as of this encounter Visit Diagnoses Diagnosis Familial hypercholesterolemia Pure hypercholesterolemia documented in this encounter Care Teams Hot Header Operator Relationship Specialty Start Date End Date Juan Smith MD PCP - General Family Medicine 05/10/16 09/02/21 documented as of this encounter
--- OUTSIDE RECORDS SUMMARY | 2024-02-24 15:03 | XMS_ITS | Encounter Summary ---
Author Organization [facility] Address [facility] [place] [address] Care Team Providers Care Outside Sales Consultant Name Role Phone Juan Smith MD Primary Care Provider [phone] Reason for Visit * Reason Comments Medication Refill Encounter Details Date Type Department Care Team (Late st Contact Info) Description 04/26/2020 Refill Dermatology at [facility] [address] [place] [address] Vern Salmeron MD [facility] [address] [place] [address] Hair thinning Social History Tobacco Use Types [...] 9:45 AM EDT Office Visit Dermatology at [place] [address] [facility] [place] [address] Emiliano Salinas MD [address], [place] [address] documented as of this encounter Visit Diagnoses Diagnosis Hair thinning Alopecia, unspecified documented in this encounter Care Teams Outside Sales Consultant Relationship Specialty Start Date End Date Juan Smith MD PCP - General Family Medicine 05/10/16 09/02/21 documented as of this encounter
--- OUTSIDE RECORDS SUMMARY | 2024-02-24 15:03 | XMS_ITS | Encounter Summary ---
[place] [address] Care Team Providers Care Team Supervisor Name Role Phone Juan Smith MD Primary Care Provider [phone] Reason for Visit * Reason Onset Date Comments Prior Authorization 09/01/2020 Nexlatol Encounter Details Date Type Department Care Team (Late st Contact Info) Description 09/01/2020 Telephone Cardiology at [address] [phone] Rere Stock polisher aluminum (Nexlatol) Social History Tobacco Use Types Packs/Day [...] EDT The following outcome notification received from [facility] Meds: YESSENIA LUONG Gonsales: [id number] - PA - Rx #: [id number] Need help? Call us at Outcome Approvedtoday Your request has been approved DrugNexletol 180MG tablets [facility] Medicare Electronic [place] Form Original Claim [id number] Call placed to the [facility] pharmacy with the approval. No answer at the pharmacy. Call placed to pt with the above information. No answer at the home number listed. Message left for the pt to call her [facility] pharmacy to arrange getting her medication refilled. She is to call cardiology with any questions. * Telephone Encounter - Rere Stock RN - 09/02/2020 1:31 PM EDT Checking on the status of the PA requests, this fiction and nonfiction writer prose noted that the request had not been sent to [facility]. Form re-faxed. YESSENIA LUONG (Gonsales: [id number]) Your information has been submitted to [facility] Medicare Part D. [facility] Medicare Part D will review the request and will issue a decision, typically within 1-3 days from your submission. You can check the updated outcome later by reopening this request. If [facility] Medicare Part D has not responded in 1-3 days or if you have any questions about your ePA request, please contact [employer] Medicare Part D at [phone]. If you think there may be a [...] review. Awaiting the determination. YESSENIA LUONG Gonsales: [id number] - NOIM - Rx #: [id number] Need help? Call us at Status Additional Information Required DrugNexletol 180MG tablets Form[facility] Medicare Electronic PA Form Original Claim [id number] documented in this encounter Plan of Treatment Upcoming Encounters Date Type Department Care Team (Late st Contact Info) Description 03/13/2024 9:45 AM EDT Office Visit Dermatology at [place] [address] [facility] [place] [address] Emiliano Salinas MD [address] [facility] [address], [place] [address] documented as of this encounter Visit Diagnoses Not on filedocumented in this encounter Care Teams Team Supervisor Relationship Specialty Start Date End Date Juan Smith MD PCP - General Family Medicine 05/10/16 09/02/21 documented as of this encounter
--- OUTSIDE RECORDS SUMMARY | 2024-02-24 15:03 | XMS_ITS | Encounter Summary ---
Author Organization [facility] [place] [address] Care Team Providers Care Public Health Informatician Name Role Phone Juan Smith MD Primary Care Provider [phone] Encounter Details Date Type Department Care Team (Late st Contact Info) Description 04/19/2020 Telephone Cardiology at [address] [phone] Leona Vallejo, RN Social History Tobacco Use [...] [facility] in [facility] if able. She also requests to have her f/u labs in [facility] as well. Will send lab order to [facility] Leona Vallejo physician practice market manager [facility] at [facility] [address] documented in this encounter Plan of Treatment Upcoming Encounters Date Type Department Care Team (Late st Contact Info) Description 03/13/2024 9:45 AM EDT Office Visit Dermatology at [place] [address] [place] [phone] Emiliano Salinas MD [address], [place] [address] documented as of this encounter Visit Diagnoses Diagnosis Familial hypercholesterolemia Pure hypercholesterolemia documented in this encounter Care Teams Public Health Informatician Relationship Specialty Start Date End Date Juan Smith MD PCP - General Family Medicine 05/10/16 09/02/21 documented as of this encounter
--- OUTSIDE RECORDS SUMMARY | 2024-02-24 15:03 | XMS_ITS | Encounter Summary ---
Author Organization [facility] [place] [address] Care Team Providers Care It Sales Representative Name Role Phone Juan Smith MD Primary Care Provider [phone] Reason for Visit * Diagnostic Test (Routine) - Closed Specialty Diagnoses / Procedures Referred By Contac t Referred To Contact Radiology Diagnoses Chest pain, unspecified type SOB (shortness of breath) Procedures NM Pharmacologic Stress Myocardial Perfusion Tory Montalvo MD [facility] [place] [address] [place] [address] Referral ID Status Reason Start Date Expiration Date V isits Requested Visits Authorized [id number] Closed Specialty Service Requested 03/05/2019 05/03/2019 1 1 Encounter Details Date Type Department Care Team (Latest Contact Info) Description 03/12/2019 9:24 AM EDT Hospital Encounter [place] [address] Tory Montalvo MD Discharge Disposition: [...] azelastine (ASTELIN) 137 mcg (0.1 %) Aerosol, [place] 0 11/06/2017 0 09/03/2022 ASCORBATE CALCIUM (VITAMIN C ORAL) Take by mouth. 09/03/2022 ERGOCALCIFEROL, VITAMIN D2, (VITAMIN D ORAL) Take by mouth. multivitamin (THERAGRAN) tablet Take 1 tablet by mouth daily. 09/03/2022 fexofenadine (EVANGELINA) 180 mg tablet 180 mg, PO, Once daily 08/28/2010 09/03/2022 Mometasone (NASONEX) 50 mcg/Actuation [place] 2 [place](s) each nostril, Nasal, Twice daily 08/28/2010 09/03/2022 documented as of this encounter Plan of Treatment Upcoming Encounters Date Type Department Care Team (Late st Contact Info) Description 03/13/2024 9:45 AM EDT Office Visit Dermatology at [place] [address] [place] [phone] Emiliano Salinas MD [address], [place] [address] documented as of this encounter Procedures Procedure [...] Arm documented in this encounter Care Teams It Sales Representative Relationship Specialty Start Date End Date Juan Smith MD PCP - General Family Medicine 05/10/16 09/02/21 documented as of this encounter
--- OUTSIDE RECORDS SUMMARY | 2024-02-24 15:03 | XMS_ITS | Encounter Summary ---
[place] [address] Care Team Providers Care Typing Secretary Name Role Phone Mary Altamirano MD Primary Care Provider Reason for Referral * Diagnostic Test (Routine) - Closed Specialty Diagnoses / Procedures Referred By Veronica brantley Referred To Contact Diagnoses Asymptomatic varicose veins Procedures Venous Valvular Incomp, Bilat Legs Chet Bales DO [address] [place] [address] [address] [place] [address] [facility] Vascular Lab [address] [place] [address] Referral ID Status Reason Start Date Expiration Date V isits Requested Visits Authorized [id number] Closed Specialty Service Requested 10/10/2021 10/10/2022 1 1 Encounter Details Date Type Department Care Team (Late st Contact Info) Description 10/10/2021 Transcribe Orders [place] [address] Chet Bales DO [address] [place] [address] [address] [place] [address] Asymptomatic varicose veins Social History [...] 9:45 AM EDT Office Visit Dermatology at [place] [address] [facility] [place] [address] Emiliano Salinas MD [address], BAKARI Nova DERMATOLOGY [place], [place] [phone] documented as of this encounter Results * Venous Valvular Incomp, Bilat Legs (11/24/2021 9:44 AM EDT) VB Text Report Department: Vascular Surgery Lab Patient: [id number] (YESSENIA LUONG) CPT: 33223 Referring Physician: CHET BALES ?? Phone: Indications: [...] veins documented in this encounter Care Teams Typing Secretary Relationship Specialty Start Date End Date Mary Altamirano MD PCP - General Family Medicine 09/03/21 10/11/21 documented as of this encounter
--- OUTSIDE RECORDS SUMMARY | 2024-02-24 15:03 | XMS_ITS | Encounter Summary ---
Author Organization [facility] Address [facility] [place] [address] Care Team Providers Care Pediatric Np Name Role Phone Juan Smith MD Primary Care Provider [phone] Encounter Details Date Type Department Care Team (Late st Contact Info) Description 05/26/2021 Telephone Cardiology at [address] [place] [address] Liam Noel MD [facility] [place] [address] Social History Tobacco Use Types Packs/Day Years [...] Patient called, she sees Dr. Rodriguez @ [facility] Cardiology for her cholesterol. She is asking if Dr. Noel or Dr. Daniel deal with this issue. She takes Nexletol with Zetia as she can not take statins. She would like to get out of the trips to [facility] and have a Batch And Furnace Operator here. #[phone] documented in this encounter Plan of Treatment Upcoming Encounters Date Type Department Care Team (Late st Contact Info) Description 03/13/2024 9:45 AM EDT Office Visit Dermatology at [place] [address] [facility] [place] [address] Emiliano Salinas MD [address], [place]AR[place] [address] documented as of this encounter Visit Diagnoses Not on filedocumented in this encounter Care Teams Pediatric Np Relationship Specialty Start Date End Date Juan Smith MD PCP - General Family Medicine 05/10/16 09/02/21 documented as of this encounter
--- OUTSIDE RECORDS SUMMARY | 2024-02-24 15:03 | XMS_ITS | Encounter Summary ---
[place] [address] Care Team Providers Care Air Control Electronics Operator Name Role Phone Mary Altamirano MD Primary Care Provider [phone] Reason for Visit * Reason Onset Date Comments Medication Refill 10/09/2021 Encounter Details Date Type Department Care Team (Late Contact [facility]) Description 10/09/2021 Telephone Cardiology at [address] [phone] Ana Horan, gas engine operator compressors Refill Social History Tobacco Use Types Packs/Day [...] Scripts to go to [facility] in [facility]. Chart reviewed. documented in this encounter Plan of Treatment Upcoming Encounters Date Type Department Care Team (Late st Contact Info) Description 03/13/2024 9:45 AM EDT Office Visit Dermatology at [place] [address] [place] [address] Emiliano Salinas MD [address], [place]AR[place] [address] documented as of this encounter Visit Diagnoses Not on filedocumented in this encounter Care Teams Air Control Electronics Operator Relationship Specialty Start Date End Date Mary Altamirano MD PCP - General Family Medicine 09/03/21 10/11/21 documented as of this encounter
--- OUTSIDE RECORDS SUMMARY | 2024-02-24 15:03 | XMS_ITS | Encounter Summary ---
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 ??She was in 2002 and has had a significant other for many years. ??Boyfriend (Deacon Peterson) lives in [place].?She has??5??children??(2 biologic and 2 step) 3 biologic [...] azelastine (ASTELIN) 137 mcg (0.1 %) Aerosol, [place] 0 ??? [place]IL HFA 90 mcg/actuation HFA [...] Once daily ??? Mometasone (NASONEX) 50 mcg/Actuation [place] 2 [place](s) each nostril, Nasal, Twice daily No current [...] 9:45 AM EDT Office Visit Dermatology at [place] [address] [place] [address] Emiliano Salinas MD [address] [facility], [place] [address] documented as of this encounter Visit Diagnoses Diagnosis Familial hypercholesterolemia Pure hypercholesterolemia documented in this encounter Care Teams Machinist Tool And Die Relationship Specialty Start Date End Date Juan Smith MD PCP - General Family Medicine 05/10/16 09/02/21 documented as of this encounter
--- OUTSIDE RECORDS SUMMARY | 2024-02-24 15:03 | XMS_ITS | Encounter Summary ---
[place] [address] Care Team Providers Care Viscose Cellar Charge Hand Name Role Phone Juan Smith MD Primary Care Provider [phone] Reason for Visit * Reason Onset Date Comments Questions 10/19/2019 more lab orders? Encounter Details Date Type Department Care Team (Late st Contact Info) Description 10/19/2019 Telephone Cardiology at [address] [phone] Rere Stock RN Questions (more lab orders?) [...] 9:45 AM EDT Office Visit Dermatology at [place] [address] [facility] [place] [address] Emiliano Salinas MD [address] [facility], BAKAR[place] [address] documented as of this encounter Visit Diagnoses Not on filedocumented in this encounter Care Teams Viscose Cellar Charge Hand Relationship Specialty Start Date End Date Juan Smith MD PCP - General Family Medicine 05/10/16 09/02/21 documented as of this encounter
--- OUTSIDE RECORDS SUMMARY | 2024-02-24 15:03 | XMS_ITS | Encounter Summary ---
Author Organization [facility] [place] [address] Care Team Providers Care Engravings Polisher Name Role Phone Juan Smith MD Primary Care Provider [phone] Reason for Referral * Diagnostic Test (Routine) - Closed Specialty Diagnoses / Procedures Referred By Contac t Referred To Contact Radiology Diagnoses Chest pain, unspecified type SOB (shortness of breath) Procedures NM Pharmacologic Stress CT Component Tory Montalvo MD [facility] [place] [address] [place] [address] Referral ID Status Reason Start Date Expiration Date V isits Requested Visits Authorized [id number] Closed Specialty Service Requested 02/13/2019 02/13/2020 1 1 Reason for Visit * Diagnostic Test (Routine) - Closed Specialty Diagnoses / Procedures Referred By Contac t Referred To Contact Radiology Diagnoses Chest pain, unspecified type SOB (shortness of breath) Procedures NM Pharmacologic Stress CT Component Tory Montalvo MD [facility] [place] [address] [place] [address] Referral ID Status Reason Start Date Expiration Date V isits Requested Visits Authorized [id number] Closed Specialty Service Requested 02/13/2019 02/13/2020 1 1 Encounter Details Date Type Department Care Team (Latest Contact Info) Description 03/12/2019 9:24 AM EDT Hospital Encounter Nuclear [place] [address] Tory Montalvo MD Chest pain, unspecified type; [...] azelastine (ASTELIN) 137 mcg (0.1 %) Aerosol, [place] 0 11/06/2017 0 09/03/2022 ASCORBATE CALCIUM (VITAMIN C ORAL) Take by mouth. 09/03/2022 ERGOCALCIFEROL, VITAMIN D2, (VITAMIN D ORAL) Take by mouth. multivitamin (THERAGRAN) tablet Take 1 tablet by mouth daily. 09/03/2022 fexofenadine (EVANGELINA) 180 mg tablet 180 mg, PO, Once daily 08/28/2010 09/03/2022 Mometasone (NASONEX) 50 mcg/Actuation [place] 2 [place](s) each nostril, Nasal, Twice daily 08/28/2010 09/03/2022 documented as of this encounter Plan of Treatment Upcoming Encounters Date Type Department Care Team (Late st Contact Info) Description 03/13/2024 9:45 AM EDT Office Visit Dermatology at [place] [address] [place] [phone] Emiliano Salinas MD [address], [place] [address] documented as of this encounter Procedures Procedure [...] below. ? Electronically signed by: Noah Arcos [facility] ([phone]), at 03/12/2019 4:26 PM Narrative 03/12/2019 4:26 [...] number below. Electronically signed by: Noah Arcos [facility]([phone]), at 03/12/2019 4:26 PM Tory Montalvo MD IMG NM ORDERABLES documented in this encounter Visit Diagnoses Diagnosis Chest pain, unspecified type SOB (shortness of breath) Shortness of breath documented in this encounter Care Teams Engravings Polisher Relationship Specialty Start Date End Date Juan Smith MD PCP - General Family Medicine 05/10/16 09/02/21 documented as of this encounter
--- OUTSIDE RECORDS SUMMARY | 2024-02-24 15:03 | XMS_ITS | Encounter Summary ---
[place] [address] Care Team Providers Care Stockroom Keeper Name Role Phone Juan Smith MD Primary Care Provider [phone] Encounter Details Date Type Department Care Team (Latest Contact Info) Description 12/15/2019 Orders Only Cardiology at [address] [phone] Tory Montalvo MD Familial hypercholesterolemia Social History [...] 9:45 AM EDT Office Visit Dermatology at [place] [address] [place] [phone] Emiliano Salinas MD [address], BAKARI Nova DERMATOLOGY [place], [place] [phone] documented as of this encounter Visit Diagnoses Diagnosis Familial hypercholesterolemia Pure hypercholesterolemia documented in this encounter Care Teams Stockroom Keeper Relationship Specialty Start Date End Date Juan Smith MD PCP - General Family Medicine 05/10/16 09/02/21 documented as of this encounter
--- OUTSIDE RECORDS SUMMARY | 2024-02-24 15:03 | XMS_ITS | Encounter Summary ---
[place] [address] Care Team Providers Care Canine Enforcement Officer Name Role Phone Juan Smith MD Primary Care Provider [phone] Reason for Visit * Reason Onset Date Comments Questions 10/11/2021 F/U with new pro vider Encounter Details Date Type Department Care Team (Late st Contact Info) Description 10/11/2021 Telephone Cardiology at [address] [phone] Rere Stock, RN Questions (F/U with new [...] 10/11/2021 1:00 PM EDT Pt returning this video game script writer's call and left the following message: [...] the labs and send the orders to [facility] so she can get done at [...] 9:45 AM EDT Office Visit Dermatology at [place] [address] [place] [address] Emiliano Salinas MD [address], [place] [address] documented as of this encounter Visit Diagnoses Not on filedocumented in this encounter Care Teams Canine Enforcement Officer Relationship Specialty Start Date End Date Juan Smith MD PCP - General Family Medicine 10/12/21 01/25/22 documented as of this encounter
--- OUTSIDE RECORDS SUMMARY | 2024-02-24 15:03 | XMS_ITS | Encounter Summary ---
Author Organization [facility] Address [facility] [place] [address] Care Team Providers Care Rn New Graduate Name Role Phone Juan Smith MD Primary Care Provider [phone] Encounter Details Date Type Department Care Team (Late st Contact Info) Description 06/01/[address] [facility] [address] [place] [phone] eVrn Salmeron MD [facility] [address] [place] [address] Social History Tobacco Use Types Packs/Day Years [...] 9:45 AM EDT Office Visit Dermatology at [address] [place] [address] Emiliano Salinas MD [address], [place] [address] documented as of this encounter Visit Diagnoses Not on filedocumented in this encounter Care Teams Rn New Graduate Relationship Specialty Start Date End Date Juan Smith MD PCP - General Family Medicine 05/10/16 09/02/21 documented as of this encounter
--- OUTSIDE RECORDS SUMMARY | 2024-02-24 15:03 | XMS_ITS | Encounter Summary ---
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, pt would like to transfer care to Mary Sands MD [address] [place] [address] [facility] Cardiology [address] [place] [phone] Referral ID Status Reason Start Date Expiration Date V isits Requested Visits Authorized [id number] Closed Consult, Test & Treat PCP Updated and/or Approved 10/12/2021 10/12/2022 10 10 Encounter Details Date Type Department Care Team (Latest Contact Info) Description 10/12/2021 Transcribe Orders eDH Incoming Referrals [phone] Mary Altamirano MD [address] [place] [address] Familial hypercholesterolemia Social History Tobacco Use [...] 9:45 AM EDT Office Visit Dermatology at [place] [address] [facility] [place] [address] Emiliano Salinas MD [address], BAKAR[place] [address] Scheduled Referrals Name Type Priority Associated Diagnoses Orde r Schedule Referral to Cardiology Outpatient Referral Routine Familial hypercholesterolemia Ordered: 10/12/2021 documented as of this encounter Visit Diagnoses Diagnosis Familial hypercholesterolemia Pure hypercholesterolemia documented in this encounter Care Teams Beauty Specialist Relationship Specialty Start Date End Date Juan Smith MD PCP - General Family Medicine 10/12/21 01/25/22 documented as of this encounter
--- OUTSIDE RECORDS SUMMARY | 2024-02-24 15:03 | XMS_ITS | Encounter Summary ---
[place] [address] Care Team Providers Care Shark Biologist Name Role Phone Mary Altamirano MD Primary Care Provider Reason for Referral * Consultation (Routine) - Closed Specialty Diagnoses / Procedures Referred By Veronica brantley Referred To Contact Vascular Surgery Diagnoses Varicose veins of both lower extremities with pain #VV, PLATFORM POWER TECHNICIAN / PA Mary Altamirano MD [address] [place] [address] [facility] Vascular Surg [address] [place] [address] Referral ID Status Reason Start Date Expiration Date V isits Requested Visits Authorized [id number] Closed Consult, Test & Treat 09/03/2021 09/03/2022 10 10 Encounter Details Date Type Department Care Team (Latest Contact Info) Description 09/03/2021 Transcribe Orders eDH Incoming Referrals [phone] Mary Altamirano MD [address] [place] [address] Varicose veins of both lower extremities [...] 9:45 AM EDT Office Visit Dermatology at [place] [address] [facility] [place] [address] Emiliano Salinas MD [address], [place] [address] Scheduled Referrals Name Type Priority Associated Diagnoses Orde r Schedule Referral to Vascular Surgery Outpatient Referral Routine Varicose veins of both lower extremities with pain Ordered: 09/03/2021 documented as of this encounter Visit Diagnoses Diagnosis Varicose veins of both lower extremities with pain Varicose veins of lower extremities with other complications documented in this encounter Care Teams Shark Biologist Relationship Specialty Start Date End Date Mary Altamirano MD PCP - General Family Medicine 09/03/21 10/11/21 documented as of this encounter
--- OUTSIDE RECORDS SUMMARY | 2024-02-24 15:03 | XMS_ITS | Encounter Summary ---
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 ??She was in 2002 and has had a significant other for many years. ??Her significant other (Deacon Peterson) lives in [place].?She has??5??children and 3 biologic and 8 step??grandchildren. [...] azelastine (ASTELIN) 137 mcg (0.1 %) Aerosol, [place] 0 ??? PROVENTIL HFA 90 mcg/actuation HFA [...] Once daily ??? Mometasone (NASONEX) 50 mcg/Actuation [place] 2 [place](s) each nostril, Nasal, Twice daily No current [...] Not on file Occupational History ??? 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 [...] about 6 weeks. These will be at [facility] 01/17/22 apoB 89Lp(a) 19.8 (ULN < 75) [...] previous lipid evaluation and recommendations; 30 minutes jpon-ul-[id number] and 10 minutes coordination of care 1) yrda-hn-xhbc counseling as noted above 2) reviewing past medical records, cardiac testing, results of laboratory testing 3) coordinating care with other physicians and allied health care providers Delfina Santiago MD, Vonnie, FACC, FNLA Attending Aircraft Engine Technician Sports Cardiology Program Preventive Cardiology Lipid Clinic [facility] documented in this encounter Plan of Treatment Upcoming Encounters Date Type Department Care Team (Late st Contact Info) Description 03/13/2024 9:45 AM EDT Office Visit Dermatology at [place] [address] [place] [phone] Emiliano Salinas MD [address], BAKAR[place] [address] documented as of this encounter Results * Apolipoprotein B (02/16/2022 11:51 AM EDT) Apolipoprotein B (OCTOBER) 85 mg/dL [facility] Comment: REFERENCE VALUE Desirable: <90 Above Desirable: 90-99 Borderline high: 100-119 High: 120-139 Very high: > or = 140 Test Performed by: [place] [address] Copper Tapper: Kyle Michel M.D. Ph.D.; CLIA# [id number] Blood 02/16/2022 11:5 1 AM EDT 02/16/2022 3:50 PM EDT Narrative Resulting Agency Comment Spec In Lab Delfina Santiago MD LAB SEND OUT ORDERAB LES Performing Organization Address City/State/[facility] Co de Phone Number [facility] [place] [address] documented in this encounter Visit Diagnoses Diagnosis Familial hypercholesterolemia Pure hypercholesterolemia THERESA (obstructive sleep apnea) Obstructive sleep apnea (adult) (pediatric) documented in this encounter Care Teams Bottle Booth Attendant Relationship Specialty Start Date End Date Mary Altamirano MD PCP - General Family Medicine 01/26/22 08/26/22 documented as of this encounter
--- OUTSIDE RECORDS SUMMARY | 2024-02-24 15:03 | XMS_ITS | Encounter Summary ---
Author Organization [facility] [place] [address] Care Team Providers Care Finance Teacher Name Role Phone Juan Smith MD Primary Care Provider [phone] Encounter Details Date Type Department Care Team (Late st Contact Info) Description 12/24/2019 Telephone Cardiology at [address] [phone] Ester Urbano, RN Social History Tobacco Use [...] requesting that her labs be sent to [facility]. This nurse able to establish clear [...] 9:45 AM EDT Office Visit Dermatology at [place] [address] [facility] [place] [address] Emiliano Salinas MD [address], BAKARI [place] [address] documented as of this encounter Visit Diagnoses Not on filedocumented in this encounter Care Teams Finance Teacher Relationship Specialty Start Date End Date Juan Smith MD PCP - General Family Medicine 05/10/16 09/02/21 documented as of this encounter
--- OUTSIDE RECORDS SUMMARY | 2024-02-24 15:03 | XMS_ITS | Encounter Summary ---
[place] [address] Care Team Providers Care Nursing Unit Clerk Name Role Phone Mary Altamirano MD Primary Care Provider Reason for Referral * Psychiatric (Routine) - Closed Specialty Diagnoses / Procedures Referred By Contac t Referred To Contact Psychiatry Diagnoses Anxiety with depression Mary Altamirano MD [address] [place] [address] [facility] [address] [place] [address] Referral ID Status Reason Start Date Expiration Date V isits Requested Visits Authorized [id number] Closed Consult, Test & Treat PCP Updated and/or Approved 01/26/2022 01/26/2023 10 10 Encounter Details Date Type Department Care Team (Latest Contact Info) Description 01/26/2022 Transcribe Orders eDH Incoming Referrals [phone] Mary Altamirano MD [address] [place] [address] Anxiety with depression Social History Tobacco [...] 9:45 AM EDT Office Visit Dermatology at [place] [address] [place] [address] Emiliano Salinas MD [address], [place] [address] Scheduled Referrals Name Type Priority Associated Diagnoses Order Schedule Referral to Psychiatry Outpatient Referral Routine Anxiety with depression Ordered: 01/26/2022 documented as of this encounter Visit Diagnoses Diagnosis Anxiety with depression documented in this encounter Care Teams Nursing Unit Clerk Relationship Specialty Start Date End Date Mary Altamirano MD PCP - General Family Medicine 01/26/22 08/26/22 documented as of this encounter
--- OUTSIDE RECORDS SUMMARY | 2024-02-24 15:03 | XMS_ITS | Encounter Summary ---
[place] [address] Care Team Providers Care Cryptographer Name Role Phone Juan Smith MD Primary Care Provider [phone] Reason for Visit * Reason Comments Medication Refill Encounter Details Date Type Department Care Team (Late st Contact Info) Description 01/18/2021 Refill Cardiology at [address] [phone] Tory Montalvo MD Medication Refill Social History [...] AM EDT Office Visit Dermatology at [address] [place] [phone] Emiliano Salinas MD [address], [place] [address] documented as of this encounter Visit Diagnoses Diagnosis Familial hypercholesterolemia Pure hypercholesterolemia documented in this encounter Care Teams Cryptographer Relationship Specialty Start Date End Date Juan Smith MD PCP - General Family Medicine 10/12/21 01/25/22 documented as of this encounter
--- OUTSIDE RECORDS SUMMARY | 2024-02-24 15:03 | XMS_ITS | Encounter Summary ---
[place] [address] Care Team Providers Care Stock Crane Operator Name Role Phone Mary Altamirano MD Primary Care Provider Reason for Visit * Reason Onset Date Comments Medication Refill 09/28/2021 Nexletol & Zet ia Encounter Details Date Type Department Care Team (Late Contact [facility]) Description 09/28/2021 Refill Cardiology at [address] [phone] Tory Montalvo MD Medication Refill (Nexletol & [...] is transferring her care to Cardiology in [facility] and would like to getthe Nexletol and Zetia sent to the [facility] at [facility] to get her to the appt with the pulp grinder and blender in [facility]. Refill pended to Dr Montalvo. documented in this encounter Plan of Treatment Upcoming Encounters Date Type Department Care Team (Late st Contact Info) Description 03/13/2024 9:45 AM EDT Office Visit Dermatology at [place] [address] [facility] [address] [place] [address] Emiliano Salinas MD [address], BAKARI [place] [address] documented as of this encounter Visit Diagnoses Diagnosis Familial hypercholesterolemia Pure hypercholesterolemia documented in this encounter Care Teams Stock Crane Operator Relationship Specialty Start Date End Date Mary Altamirano MD PCP - General Family Medicine 09/03/21 10/11/21 documented as of this encounter
--- OUTSIDE RECORDS SUMMARY | 2024-02-24 15:03 | XMS_ITS | Encounter Summary ---
[place] [address] Care Team Providers Care Roll Scale Worker Name Role Phone Juan Smith MD Primary Care Provider [phone] Encounter Details Date Type Department Care Team (Latest Contact Info) Description 04/17/2019 10:00 AM EST Laboratory Appointment Lab [address] [place] [phone] Familial hypercholesterolemia Social History Tobacco Use Types [...] 9:45 AM EDT Office Visit Dermatology at [place] [address] [place] [address] Emiliano Salinas MD [address], [place] [address] documented as of this encounter Procedures Procedure Name Priority Date/Time Associated Diagnosis Comments HC HSCRP Routine 04/17/2019 9:21 AM EST Familial hypercholesterolemia LIPID PANEL (REFLEX DIRECT LDL) Routine 04/17/2019 9:21 AM EST Familial hypercholesterolemia documented in this encounter Results * Lipid Panel (Reflex Direct LDL) (04/17/2019 9:21 AM EST) Cholesterol, Total 252 mg/dL [facility] Comment: Lower Risk: <200 mg/dL Average Risk: 200-239 mg/dL Higher Risk: >mm=323 mg/dL Triglyceride 157 mg/dL [facility] Comment: Average Risk/Lower Risk: <150 mg/dL Borderline High Risk: 150-199 mg/dL High Risk: 200-499 mg/dL Very High Risk: >qj=532 mg/dL HDL Cholesterol 74 mg/dL [facility] Comment: Males: ?? Higher Risk: <40 mg/dL Females: ?? HIgher Risk: <50 mg/dL LDL Cholesterol 147 mg/dL [facility] Comment: Lowest Risk: <100 mg/dL Lower Risk: 100-129 mg/dL Borderline High Risk: 130-159 mg/dL High Risk: 160-189 mg/dL Very High Risk: >nm=004 mg/dL Cholesterol/HDL Ratio 3.4 ratio [facility] Lipid Interpretation See Note [facility] Comment: Lipid management should be guided by a patient? s ASCVD risk, goals and preferences. ACC/AHA Guidelines recommend high intensity statin if clinical ASCVD or LDL greater than or equal to 190 mg/dL. http://tinyurl.com/ZTR-MIP-Xxmchvann Adults aged 40-75 with LDL 70-189 mg/dL should have their 10 year ASCVD risk estimated with the ACC/AHA ASCVD risk technical business systems analyst http://tools.acc.org/OQCXX-Czpw-Jwocdvlmu/ Statin should be discussed if risk greater [...] In Lab Tory Montalvo MD CHEMISTRY ORDERABLES [facility] [place] [address] * CRP, cardiac risk (HS CRP) (04/17/2019 9:21 AM EST) C-Reactive Protein High Sensitivity 1.6 mg/L [facility] Comment: For cardiac risk assessment, two [...] 2003; 107:363-369 CRP Cardiac Risk Moderate Risk [facility] Blood specimen (specimen) 04/17/2019 9:21 AM EST 04/17/2019 9:40 AM EST Narrative Resulting Agency Comment Spec In Lab Tory Montalvo MD CHEMISTRY ORDERABLES Performing Organization Address City/State/[place] Co de Phone Number [facility] [place] [address] documented in this encounter Visit Diagnoses Diagnosis Familial hypercholesterolemia Pure hypercholesterolemia documented in this encounter Care Teams Roll Scale Worker Relationship Specialty Start Date End Date Juan Smith MD PCP - General Family Medicine 05/10/16 09/02/21 documented as of this encounter
--- OUTSIDE RECORDS SUMMARY | 2024-02-24 15:03 | XMS_ITS | Encounter Summary ---
[place] [address] Care Team Providers Care Benefits Director Name Role Phone Juan Smith MD Primary Care Provider [phone] Reason for Visit * Reason Comments Medication Refill Encounter Details Date Type Department Care Team (Late st Contact Info) Description 10/12/2020 Refill Cardiology at [address] [phone] Tory Montalvo MD Medication Refill Social History [...] 9:45 AM EDT Office Visit Dermatology at [address] [place] [phone] Emiliano Salinas MD [address], [place] [address] documented as of this encounter Visit Diagnoses Diagnosis Familial hypercholesterolemia Pure hypercholesterolemia documented in this encounter Care Teams Benefits Director Relationship Specialty Start Date End Date Juan Smith MD PCP - General Family Medicine 05/10/16 09/02/21 documented as of this encounter
--- OUTSIDE RECORDS SUMMARY | 2024-02-24 15:03 | XMS_ITS | Encounter Summary ---
Author Organization [facility] [place] [address] Care Team Providers Care Assistant Store Leader Name Role Phone Juan Smith MD Primary Care Provider [phone] Encounter Details Date Type Department Care Team (Late st Contact Info) Description 12/15/2019 Telephone Cardiology at [address] [phone] Ester Urbano, RN Social History Tobacco Use [...] 9:45 AM EDT Office Visit Dermatology at [place] [address] [facility] [place] [address] Emiliano Salinas MD [address], [place] [address] documented as of this encounter Visit Diagnoses Not on filedocumented in this encounter Care Teams Assistant Store Leader Relationship Specialty Start Date End Date Juan Smith MD PCP - General Family Medicine 05/10/16 09/02/21 documented as of this encounter
--- OUTSIDE RECORDS SUMMARY | 2024-02-24 15:03 | XMS_ITS | Encounter Summary ---
[place] [address] Care Team Providers Care Divisional Merchandising Manager Name Role Phone Juan Smith MD Primary Care Provider [phone] Encounter Details Date Type Department Care Team (Latest Contact Info) Description 09/30/2020 Orders Only Cardiology at [address] [phone] Tory Montalvo MD Familial hypercholesterolemia Social History [...] 9:45 AM EDT Office Visit Dermatology at [place] [address] [place] [phone] Emiliano Salians MD [address], BAKARI Nova DERMATOLOGY [place], [place] [phone] documented as of this encounter Visit Diagnoses Diagnosis Familial hypercholesterolemia Pure hypercholesterolemia documented in this encounter Care Teams Divisional Merchandising Manager Relationship Specialty Start Date End Date Juan Smith MD PCP - General Family Medicine 05/10/16 09/02/21 documented as of this encounter
--- OUTSIDE RECORDS SUMMARY | 2024-02-24 15:03 | XMS_ITS | Encounter Summary ---
[place] [address] Care Team Providers Care Fundraising Specialist Name Role Phone Juan Smith MD Primary Care Provider Reason for Visit * Diagnostic Test (Routine) - Closed Specialty Diagnoses / Procedures Referred By Contac t Referred To Contact Diagnoses Asymptomatic varicose veins Procedures Venous Valvular Incomp, Bilat Legs Chet Bales, DO [address] [place] [address] [facility] Vascular Lab [address] [place] [address] Referral ID Status Reason Start Date Expiration Date V isits Requested Visits Authorized [id number] Closed Specialty Service Requested 10/10/2021 10/10/2022 1 1 Encounter Details Date Type Department Care Team (Late st Contact Info) Description 11/24/2021 10:00 AM EDT Tech [place] [address] Mukund Davis, RVT Asymptomatic varicose [...] 9:45 AM EDT Office Visit Dermatology at [place] [address] [place] [address] Emiliano Salinas MD [address], BAKAR[place] [address] documented as of this encounter Procedures Procedure Name Priority Date/Time Associated Diagnosis Comments VENOUS VALVULAR INCOMP, BILAT LEGS Routine 11/24/2021 9:44 AM EDT Asymptomatic varicose veins documented in this encounter Results * Venous Valvular Incomp, Bilat Legs (11/24/2021 9:44 AM EDT) VB Text Report Department: Vascular Surgery Lab Patient: [id number] (SUNNY LUONG) CPT: 59560 Referring Physician: CHET BALES ?? Phone: Indications: [...] veins documented in this encounter Care Teams Fundraising Specialist Relationship Specialty Start Date End Date Juan Smith MD PCP - General Family Medicine 10/12/21 01/25/22 documented as of this encounter
--- OUTSIDE RECORDS SUMMARY | 2024-02-24 15:03 | XMS_ITS | Encounter Summary ---
Author Organization [facility] [place] [address] Care Team Providers Care Documentation Billing Clerk Name Role Phone Juan Smith MD Primary Care Provider [phone] Encounter Details Date Type Department Care Team (Latest Contact Info) Description 10/09/2019 2:00 PM EDT TH Visit (TeleHealth) Cardiology at [address] [phone] Tory Montalvo MD Familial hypercholesterolemia Social History [...] completely intolerant of statins. I asked my car deliverer, Basilia Mart to schedule Yessenia for a [...] 9:45 AM EDT Office Visit Dermatology at [place] [address] [facility] [place] [address] Emiliano Salinas MD [address] [facility] [address], B[place]AR[place] [address] documented as of this encounter Visit Diagnoses Diagnosis Familial hypercholesterolemia Pure hypercholesterolemia documented in this encounter Care Teams Documentation Billing Clerk Relationship Specialty Start Date End Date Juan Smith MD PCP - General Family Medicine 05/10/16 09/02/21 documented as of this encounter
--- OUTSIDE RECORDS SUMMARY | 2024-02-24 15:03 | XMS_ITS | Encounter Summary ---
[place] [address] Care Team Providers Care Ironer Hand Name Role Phone Juan Smith MD Primary Care Provider [phone] Encounter Details Date Type Department Care Team (Late st Contact Info) Description 10/08/2019 Orders Only Cardiology at [address] [phone] Tory Montalvo MD Familial hypercholesterolemia; Coronary artery disease, angina presence unspecified, unspecified vessel or lesion type, unspecified whether [place] or transplanted heart Social History Tobacco Use [...] 9:45 AM EDT Office Visit Dermatology at [place] [address] [facility] [place] [phone] Emiliano Salinas MD [address], BAKARI A DERMATOLOGY [place], [place] [phone] documented as of this encounter Visit Diagnoses Diagnosis Familial hypercholesterolemia Pure hypercholesterolemia Coronary artery disease, angina presence unspecified, unspecified vessel or lesion type, unspecified whether [place] or transplanted heart documented in this encounter Care Teams Ironer Hand Relationship Specialty Start Date End Date Juan Smith MD PCP - General Family Medicine 05/10/16 09/02/21 documented as of this encounter
--- OUTSIDE RECORDS SUMMARY | 2024-02-24 15:03 | XMS_ITS | Encounter Summary ---
[place] [address] Care Team Providers Care Transmitter Engineer In Charge Name Role Phone Juan Smith MD Primary Care Provider [phone] Encounter Details Date Type Department Care Team (Late st Contact Info) Description 12/21/2021 Telephone Cardiology at [address] [phone] Dariela Manzano, RN Social History Tobacco Use [...] also asking for a referral to a folding machine operator in [place]. Forward to Dr Santiago documented in this encounter Plan of Treatment Upcoming Encounters Date Type Department Care Team (Late st Contact Info) Description 03/13/2024 9:45 AM EDT Office Visit Dermatology at [place] [address] [facility] [place] [address] Emiliano Salinas MD [address], BAKARI [place] [address] documented as of this encounter Visit Diagnoses Not on filedocumented in this encounter Care Teams Transmitter Engineer In Charge Relationship Specialty Start Date End Date Juan Smith MD PCP - General Family Medicine 10/12/21 01/25/22 documented as of this encounter
--- OUTSIDE RECORDS SUMMARY | 2024-02-24 15:04 | XMS_ITS | Encounter Summary ---
Author Organization [facility] [place] [address] Care Team Providers Care Ring Striker Name Role Phone Juan Smith MD Primary Care Provider [phone] Reason for Visit * Reason Comments Procedure Encounter Details Date Type Department Care Team (Late st Contact Info) Description 03/12/2019 3:30 PM EDT Office Visit Dermatology at [facility] [address] [place] [phone] Vern Salmeron MD [address] [facility] [place] [address] Encounter for cosmetic procedure Social History Tobacco [...] - 03/12/2019 3:30 PM EDT Yessenia Luong [id number] 03/12/2019 Provider: Raymundo Salmeron M.D. ([id number]) Chief Problem: 1. Rosacea & Telangiectasias 2. [...] 9:45 AM EDT Office Visit Dermatology at [place] [address] [facility] [place] [address] Emiliano Salinas MD [address], [place] [address] documented as of this encounter Visit Diagnoses Diagnosis Encounter for cosmetic procedure documented in this encounter Care Teams Ring Striker Relationship Specialty Start Date End Date Juan Smith MD PCP - General Family Medicine 05/10/16 09/02/21 documented as of this encounter
--- OUTSIDE RECORDS SUMMARY | 2024-02-24 15:04 | XMS_ITS | Encounter Summary ---
Author Organization [facility] [place] [address] Care Team Providers Care Client Services Director Name Role Phone Juan Smith MD Primary Care Provider [phone] Reason for Referral * Diagnostic Test (Routine) - Closed Specialty Diagnoses / Procedures Referred By Contac t Referred To Contact Radiology Diagnoses Chest pain, unspecified type SOB (shortness of breath) Procedures NM Pharmacologic Stress Myocardial Perfusion Tory Montalvo MD [facility] [place] [address] [place] [address] Referral ID Status Reason Start Date Expiration Date V isits Requested Visits Authorized [id number] Closed Specialty Service Requested 03/05/2019 05/03/2019 1 1 Reason for Visit * Diagnostic Test (Routine) - Closed Specialty Diagnoses / Procedures Referred By Contac t Referred To Contact Radiology Diagnoses Chest pain, unspecified type SOB (shortness of breath) Procedures NM Pharmacologic Stress Myocardial Perfusion Tory Montalvo MD [facility] [place] [address] [place] [address] Referral ID Status Reason Start Date Expiration Date V isits Requested Visits Authorized [id number] Closed Specialty Service Requested 03/05/2019 05/03/2019 1 1 Encounter Details Date Type Department Care Team (Latest Contact Info) Description 03/12/2019 9:21 AM EDT - 03/12/2019 9:22 AM EDT Hospital Encounter [place] [address] Tory Montalvo MD Chest pain, unspecified type; [...] azelastine (ASTELIN) 137 mcg (0.1 %) Aerosol, [place] 0 11/06/2017 0 09/03/2022 ASCORBATE CALCIUM (VITAMIN C ORAL) Take by mouth. 09/03/2022 ERGOCALCIFEROL, VITAMIN D2, (VITAMIN D ORAL) Take by mouth. multivitamin (THERAGRAN) tablet Take 1 tablet by mouth daily. 09/03/2022 fexofenadine (EVANGELINA) 180 mg tablet 180 mg, PO, Once daily 08/28/2010 09/03/2022 Mometasone (NASONEX) 50 mcg/Actuation [place] 2 [place](s) each nostril, Nasal, Twice daily 08/28/2010 09/03/2022 documented as of this encounter Plan of Treatment Upcoming Encounters Date Type Department Care Team (Late st Contact Info) Description 03/13/2024 9:45 AM EDT Office Visit Dermatology at [place] [address] [facility] [place] [address] Emiliano Salinas MD [address] [facility], BAKAR[place] [address] documented as of this encounter Procedures Procedure [...] mCi documented in this encounter Care Teams Client Services Director Relationship Specialty Start Date End Date Juan Smith MD PCP - General Family Medicine 05/10/16 09/02/21 documented as of this encounter
--- OUTSIDE RECORDS SUMMARY | 2024-02-24 15:04 | XMS_ITS | Encounter Summary ---
Author Organization [facility] Address [facility] [place] [address] Care Team Providers Care Progressive Care Nurse Name Role Phone Juan Smith MD Primary Care Provider Reason for Visit * Reason Comments Weight Management * Consultation (Routine) - Specialty Diagnoses / Procedures Referred By Contac t Referred To Contact Weight and Wellness Diagnoses familail hypercholesterolemia, THERESA, increased BMI, hypothyroidism Georgia Garduno MD [address] [place] [address] [facility] [address] [place] [address] Referral ID Status Reason Start Date Expiration Date V isits Requested Visits Authorized [id number] Consult, Test [facility] 10/28/2017 10/28/2018 1 1 Encounter Details Date Type Department Care Team (Late st Contact Info) Description 12/06/2017 9:00 AM EDT Office Visit Weight and Wellness at [facility] [address] [place] [address] Natalie Stephens MD [facility] [place] [address] Class 1 obesity; [...] Date: 12/06/17 PI/Designee: Dr. Félix Hernandez/Brian Hudson [facility] [id number]: [facility] Biorepository VELOS: [id number] Yessenia Luong??consented to participate in the above-named [...] consent. Brian Hudson, CCRC Associate Research Coordinator [facility] [place] Pager: [phone] * Natalie Stephens MD - 12/06/2017 9:00 [...] 67 y.o. female referred to the [facility] for an evaluation of obesity. Weight History: [...] bigger portions. She notes that as an English, there is a culture of eating, and [...] structured weightloss programs including Weight Watchers, Bharti Talmage. She has not used [id number] weight loss medications. She has used prescription [...] Exercise: Riding her bike 1-2x/week, occasional walking [facility] Initial Responses 12/06/2017 [facility] - Readiness [...] TFEQ-Emotional Eating 66.66 Food Insecurity Score 2 Ross Category I Result 1 (Positive) Ross Category II Result 1 (Positive) Ross Category III 0 (Negative) Ross Sleep Apnea Total 2 (High Risk) Schooling [...] ability to hike and be physically active [facility] Followup Responses 12/06/2017 [facility] - Readiness [...] AND RECOMMENDATIONS: Yessenia Luong presents to the [facility] for a consultative visit regarding obesity [...] that obesity is a chronic disease requiring longterm management. Obesity is associated with increased risk [...] in the HealthyLifestyles Program (HLP) at the [facility], but due to her distance from [...] ?? Intolerant of statins--followed by a local scuba diver, and currently maintained on evolocumab. THERESA: ?? Diagnosed with sleep study ?? Continue CPAP as prescribed I spent a total of 60 minutes with the patient 45 minutes of which were spent in [id number] discussion/counseling re obesity, nutrition and activity as [...] 9:45 AM EDT Office Visit Dermatology at [place] [address] [place] [phone] Emiliano Salinas MD [address], BAKARI [place] [address] documented as of this encounter Procedures Procedure [...] PM EDT) Biorepository Hold Sample in lab [facility] Stool specimen (specimen) 12/13/2017 2:00 PM EDT 12/24/2017 1:18 PM EDT Narrative Resulting Agency Comment Spec In Lab Natalie Stephens MD MOLECULAR ORDERABLES Performing Organization Address City/[facility]/ZIP Co de Phone Number [facility] [place] [address] * Biorepository Request (12/06/2017 10:45 AM EDT) Biorepository Hold Sample in lab [facility] Blood specimen (specimen) 12/06/2017 10:45 AM EDT 12/06/2017 4:01 PM EDT Narrative Resulting Agency Comment Spec In Lab Natalie Stephens MD MOLECULAR ORDERABLES Performing Organization Address [facility] Co de Phone Number [facility] [place] [address] * Vitamin D, 25-Hydroxy (12/06/2017 10:45 AM EDT) Pathologist [facility] Vitamin D Total 25 OH 41 30 - 100 ng/mL [facility] Comment: Deficient <10 ng/mL Insufficient 10 to 29 ng/mL Sufficient 30 to 100 ng/mL Potential Intoxication >100 ng/mL According to the US National Osteoporosis Foundation, Vitamin D concentrations >30 ng/mL are sufficient to protect bone health. ??The National Kidney Foundation has similarly stated that patients with Vitamin D concentrations <30ng/mL should be considered to be insufficient or deficient. http://Phylogy.Associa/nkf-guidelines http://Phylogy.Associa/nejm-VitD The IDS iSYS Vitamin D Immunoassay detects both 25-OH Vitamin D2 and 25-OH Vitamin D3, but only a total Vitamin D concentration is reported. Blood specimen (specimen) 12/06/2017 10:45 AM EDT 12/06/2017 2:47 PM EDT Narrative Resulting Agency Comment Spec In Lab Natalie Stephens MD CHEMISTRY ORDERABLES Performing Organization Address City/[facility]/ZIP Co de Phone Number [facility] [place] [address] * (ABNORMAL) Comprehensive metabolic panel (non-fasting) (12/06/2017 10:45 AM EDT) Glucose 99 65 - 199 mg/dL [facility] Comment:Diabetes: >=200 mg/d L plus symptoms Blood Urea Nitrogen 21(H) 8 - 18 mg/dL [facility] Creatinine 0.79 0.70 - 1.20 mg/dL [facility] Sodium 144 135 - 145 mmol/L [facility] Potassium 4.3 3.5 - 5.0 mmol/L [facility] Comment: Please note: ??Patients with WBC >100,000 may have falsely elevated Potassium levels. ??For accurate Potassium quantification in these patients send serum separator tube (gold top) for subsequent determinations. ??Contact the Clinical Chemistry Laboratory if there are any questions. Chloride 102 98 - 107 mmol/L [facility] Carbon Dioxide 26 22 - 31 mmol/L [facility] Anion Gap 16(H) 5 - 15 mmol/L [facility] Calcium 10.0 8.5 - 10.5 mg/dL [facility] Protein, Total 7.2 6.1 - 8.0 gm/dL [facility] Albumin 4.4 3.2 - 5.2 gm/dL [facility] Aspartate Aminotransferase 19 0 - 30 unit/L [facility] Alanine Aminotransferase 18 0 - 30 unit/L [facility] Alkaline Phosphatase 67 40 - 104 unit/L [facility] Bilirubin, Total 0.3 0.2 - 1.3 mg/dL [facility] Est Glomerular Filtration Rate 77 >=60 mL/min/1. 73 m?? [facility] Comment: The eGFR was calculated using the CKD-EPI equation. As with all creatinine based estimates of kidney function, eGFR values calculated with the CKD-EPI equation are not accurate in patients with acute kidney failure, extremes of body mass or the acutely ill. http://Phylogy.Associa/DHnkdep http://World [employer]ets/DHMCnkf eGFR 89 >=60 mL/min/1. 73 m?? [facility] Comment: The eGFR was calculated using the CKD-EPI equation. As with all creatinine based estimates of kidney function, eGFR values calculated with the CKD-EPI equation are not accurate in patients with acute kidney failure, extremes of body mass or the acutely ill. http://World [employer] Packets/DHnkdep http://[employer]/DHMCnkf Blood specimen (specimen) 12/06/2017 10:45 AM EDT 12/06/2017 1:21 PM EDT Narrative Resulting Agency Comment Spec In Lab Natalie Stephens MD CHEMISTRY ORDERABLES [facility] [place] [address] * Hemoglobin A1c (12/06/2017 10:45 AM EDT) Hemoglobin A1c 5.6 4.3 - 5.6 % [facility] Comment: Reference Range: 4.3 - [...] Mellitus, Diabetes Care 2013; 36: Suppl. 1, R51-95 Estimated Average Glucose 114 mg/dL [facility] Comment: eAG equivalents for HbA1c [...] into estimated average glucose values. ??Diabetes Care 2008:31(8):6493-1284. Blood specimen (specimen) 12/06/2017 10:45 AM EDT 12/06/2017 12:54 PM EDT Narrative Resulting Agency Comment Spec In Lab Natalie Stephens MD CHEMISTRY ORDERABLES Performing Organization Address [facility] Co de Phone Number [facility] [place] [address] * TSH (12/06/2017 10:45 AM EDT) Thyroid Stimulating Hormone 2.41 0.27 - 4.20 mlU/ML [facility] Blood specimen (specimen) 12/06/2017 10:45 AM EDT 12/06/2017 1:21 PM EDT Narrative Resulting Agency Comment Spec In Lab Natalie Stephens MD CHEMISTRY ORDERABLES Performing Organization Address [facility] Co de Phone Number [facility] [place] [address] documented in this encounter Visit Diagnoses Diagnosis Class 1 obesity THERESA on CPAP Obstructive sleep apnea (adult) (pediatric) Depression, unspecified depression type Vitamin D deficiency Unspecified vitamin D deficiency Anxiety disorder, unspecified type Impaired glucose tolerance Impaired glucose tolerance test documented in this encounter Care Teams Progressive Care Nurse Relationship Specialty Start Date End Date Juan Smith MD PCP - General Family Medicine 05/10/16 09/02/21 documented as of this encounter
--- OUTSIDE RECORDS SUMMARY | 2024-02-24 15:04 | XMS_ITS | Encounter Summary ---
Author Organization [facility] Address [facility] [place] [address] Care Team Providers Care Software Support Engineer Name Role Phone Juan Smith MD Primary Care Provider [phone] Encounter Details Date Type Department Care Team (Latest Contact Info) Description 12/13/2017 3:11 PM EDT - 12/13/2017 11:59 PM EDT [place] [address] [facility] [place] [address] Class 1 obesity Discharge Disposition: Home Social [...] azelastine (ASTELIN) 137 mcg (0.1 %) Aerosol, [place] 0 11/06/2017 09/03/2022 ASCORBATE CALCIUM (VITAMIN C ORAL) Take by mouth. ERGOCALCIFEROL, VITAMIN D2, (VITAMIN D ORAL) Take by mouth. 09/03 multivitamin (THERAGRAN) tablet Take 1 tablet by mouth daily. 09/03/2022 fexofenadine (EVANGELINA) 180 mg tablet 180 mg, PO, Once daily 08/28/2010 09/03/2022 Mometasone (NASONEX) 50 mcg/Actuation [place] 2 [place](s) each nostril, Nasal, Twice daily 08/28/2010 09/03/2022 documented as of this encounter Plan of Treatment Upcoming Encounters Date Type Department Care Team (Late st Contact Info) Description 03/13/2024 9:45 AM EDT Office Visit Dermatology at [place] [address] [facility] [place] [address] Emiliano Salinas MD [address] [facility] [address], MANINDER [place] [address] documented as of this encounter Procedures Procedure Name Priority Date/Time Associated Diagnosis Comments BIOREPOSITORY REQUEST Routine 12/13/2017 2:00 PM EDT Class 1 obesity documented in this encounter Results * Biorepository Request (12/13/2017 2:00 PM EDT) Biorepository Hold Sample in lab [facility] Stool specimen (specimen) 12/13/2017 2:00 PM EDT 12/24/2017 1:18 PM EDT Narrative Resulting Agency Comment Spec In Lab Natalie Stephens MD MOLECULAR ORDERABLES [facility] [place] [id number] documented in this encounter Visit Diagnoses Diagnosis Class 1 obesity documented in this encounter Care Teams Software Support Engineer Relationship Specialty Start Date End Date Juan Smtih MD PCP - General Family Medicine 05/10/16 09/02/21 documented as of this encounter
--- OUTSIDE RECORDS SUMMARY | 2024-02-24 15:04 | XMS_ITS | Encounter Summary ---
Author Organization [facility] Address [facility] [place] [address] Care Team Providers Care Plastic Welder Name Role Phone Juan Smith MD Primary Care Provider [phone] Encounter Details Date Type Department Care Team (Latest Contact Info) Description 12/30/2017 3:30 PM EDT Office Visit Weight and Wellness at [address] [phone] Natalie Stephens MD [facility] [place] [address] Class 1 obesity due to excess calories [...] documented in this encounter Progress Notes * Natalei Stephens MD - 12/30/2017 3:30 PM EDT [facility] Healthy Living Clinic Visit Patient Name: Yessenia Luong Date of : 1950 Age: [address] Juan Smith MD Thank you for referring Yessenia Luong to the [facility] Healthy Living Clinic for consultation regarding obesity. CHIEF COMPLAINT: Follow-up for Obesity INTERVAL HISTORY / PROGRESS TOWARD GOALS: [x] I reviewed past / interim records including notes and labs. Last seen by me on 12/06/17, and by our dietitian and health middle school baseball coach earlier today. She is participating in [...] is going to [facility] for 3 weeks starting next week. She reports that she has been tracking her food intake through the [employer] karina, and found that she eats between [...] Date AST 19 12/06/2017 ALT 18 12/06/2017 [facility] Followup Responses 12/06/2017 URICA - Readiness [...] in the Medical Management Pathway at the [facility]. She is gaining insights into food choices, [...] 20 minutes of which were spent in owbp-xj-darf discussion/counseling re obesity, nutrition and activity as well as obesity related co-morbidities documented in this encounter Plan of Treatment Upcoming Encounters Date Type Department Care Team (Late st Contact Info) Description 03/13/2024 9:45 AM EDT Office Visit Dermatology at [place] [address] [place] [address] Emiliano Salinas MD [address] [facility] [place] [address] documented as of this encounter Visit Diagnoses Diagnosis Class 1 obesity due to excess calories with serious comorbidity and body mass index (BMI) of 30.0 to 30.9 in adult Hyperlipidemia, unspecified hyperlipidemia type documented in this encounter Care Teams Plastic Welder Relationship Specialty Start Date End Date Juan Smith MD PCP - General Family Medicine 05/10/16 09/02/21 documented as of this encounter
--- OUTSIDE RECORDS SUMMARY | 2024-02-24 15:04 | XMS_ITS | Encounter Summary ---
Author Organization [facility] Address [facility] [place] [address] Care Team Providers Care Cushion Worker Name Role Phone Juan Smith MD Primary Care Provider [phone] Encounter Details Date Type Department Care Team (Late st Contact Info) Description 12/30/2017 1:30 PM EDT Office Visit Weight and Wellness at [address] [phone] Vanesa Cesar Hannah K, RD [facility] [place] [address] Adult BMI 30.0-30.9 kg/sq m Social History [...] day Weight Today: Vitals 12/30/2017 12/06/2017 Height (Djiboutian) 5' 3.504 5' 3.504 Height (Metric) 161.3 cm 161.3 cm Weight (Djiboutian) 173 lbs 6 oz 174 lbs 14 [...] was an ~1800 calorie day Typical Beverages: Aurora milk, unsweetened iced tea, wine, etc. Interview: Yessenia reports that she doesn't snack in between meals but eats too much at each meal. Going to [facility] for 3 weeks, discussed that it [...] that matches her measured RMR (~1,400). The watermaster goal for Belgic[place] be closer to 1,200 [...] 1,400. Assessing Calorie Goals at this time? [facility] Metrics 12/30/2017 RMR (kcal/day) 1389 Monitor/Evaluate: Will follow up in [facility] for Eatsmarter classes Aim for 5-10% weight loss from ABW x 3-6 months from initial visit Thank you 45 minutes were spent today in face to face contact Mary Cerna RD LD documented in this encounter Plan of Treatment Upcoming Encounters Date Type Department Care Team (Late st Contact Info) Description 03/13/2024 9:45 AM EDT Office Visit Dermatology at [place] [address] [place] [address] Emiliano Salinas MD [address] [facility] [address], BAKARI [place] [address] documented as of this encounter Visit Diagnoses Diagnosis Adult BMI 30.0-30.9 kg/sq m Body Mass Index 30.0-30.9, adult documented in this encounter Care Teams Cushion Worker Relationship Specialty Start Date End Date Juan Smith MD PCP - General Family Medicine 05/10/16 09/02/21 documented as of this encounter
--- OUTSIDE RECORDS SUMMARY | 2024-02-24 15:04 | XMS_ITS | Encounter Summary ---
Author Organization [facility] [place] [address] Care Team Providers Care Dress Designer Name Role Phone Chantell Sharma APRN Primary Care Provider [phone] Reason for Visit * Reason Comments Laser Treatment Encounter Details Date Type Department Care Team (Late st Contact Info) Description 02/06/2016 10:30 AM EDT Office Visit Dermatology at [facility] [address] [place] [phone] Mariana Young, JYOTI Telangiectasia; Rhytides; Solar lentigo [...] discomfort For further questions and concerns contact: [phone] Pita (Dr. Salmeron's Appointment Scorer Single) In any case of emergency for weekends and off hours please contact [facility] main number and ask for yeast culture developer s iron worker at [phone] documented in this encounter Progress Notes * [...] 9:45 AM EDT Office Visit Dermatology at [place] [address] [place] [address] Emiliano Salinas MD [address] [facility] [place] [address] documented as of this encounter Visit Diagnoses Diagnosis Telangiectasia Other and unspecified capillary diseases Rhytides Other specified hypertrophic and atrophic condition of skin Solar lentigo Other dyschromia documented in this encounter Care Teams Dress Designer Relationship Specialty Start Date End Date Chantell Sharma APRN PCP - General 07/09/13 05/09/16 documented as of this encounter
--- OUTSIDE RECORDS SUMMARY | 2024-02-24 15:04 | XMS_ITS | Encounter Summary ---
Author Organization [facility] [place] [address] Care Team Providers Care Multiple Knife Edge Trimmer Operator Name Role Phone Sharma Chantellrebecca Lester APRN Primary Care Provider [phone] Reason for Visit * Reason Comments Follow Up Surgery BBR and abdominoplas ty Encounter Details Date Type Department Care Team (Late st Contact Info) Description 06/28/2015 1:00 PM EST Office [place] [address] Carlee Marvin MD [facility] [place] [address] Status post bilateral breast reduction Social History [...] may remove with PCP or return to [facility]. 9. While traveling make sure to walk [...] her outcome. She will be traveling to [place] in August. Examination: Patient is alert, conversant, [...] may remove with PCP or return to [facility]. 9. While traveling make sure to walk [...] 9:45 AM EDT Office Visit Dermatology at [place] [address] [place] [address] Emiliano Salinas MD 580 [facility] [place] [address] documented as of this encounter Visit Diagnoses Diagnosis Status post bilateral breast reduction Other postprocedural status documented in this encounter Care Teams Multiple Knife Edge Trimmer Operator Relationship Specialty Start Date End Date Chantell Sharma APRN PCP - General 07/09/13 05/09/16 documented as of this encounter
--- OUTSIDE RECORDS SUMMARY | 2024-02-24 15:04 | XMS_ITS | Encounter Summary ---
Author Organization [facility] [place] [address] Care Team Providers Care Quality Control Assistant Name Role Phone Chantell Sharma APRN Primary Care Provider [phone] Reason for Visit * Reason Comments Allergic Rhinitis Encounter Details Date Type Department Care Team (Late st Contact Info) Description 07/09/2013 1:45 PM EST Office [place] [address] Yashira Abdullahi MD [facility] [address] [place] [address] Allergic rhinoconjunctivitis, bilateral (Primary Dx); Mild intermittent [...] encasings, pillow and mattress ( ie From [employer]; Mobile[employer], [employer], [employer], [employer], [employer]) 2. Wash bedding in hot water (no [...] weekly at Dr. Jere Estevez's office in [facility]. She receives two shots per week. She [...] MAGNESIUM ORAL) ??? Mometasone (NASONEX) 50 mcg/Actuation [place] 2 [place](s) each nostril, Nasal, Twice daily ??? albuterol (VENTOLIN HFA) 90 mcg/Actuation inhaler 1-2 puffs, Inh, Q4-6H PRN Past Medical and Social History: Past Medical History Diagnosis Date ??? 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 Rosacea 04/24/2011 ??? THERESA (obstructive sleep apnea) 11/21/2011 ??? Urinary incontinence, urge 01/08/2012 Past Surgical History Procedure Date ??? Vaginal prolapse repair 04/11/2007 Dr. Castaneda, at [facility] ??? section 1979, 1981 ??? 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 [...] 9:45 AM EDT Office Visit Dermatology at [place] [address] [place] [address] Emiliano Salinas MD [address] [facility] [address], [place] [address] documented as of this encounter Procedures Procedure [...] ng/mL CERNER MILLENNIUM Comment: Test Performed by: [place] [address] Health Actuary: Bruce Abdalla III, M.D. Blood specimen (specimen) 07/09/2013 3:40 PM EST 07/10/2013 9:44 AM EST Narrative Resulting Agency Comment Spec In Lab Yashira Abdullahi MD CHEMISTRY ORDERABLES Performing Organization Address [facility] [place] Co de Phone Number [facility] LINDSEYENNIUM * Venom, Yellow Jacket IgE (07/09/2013 3:40 PM EST) Yellow Jacket IgE 22.8 kU/L CE RNER MILLENNIUM Comment: Class 4 (Strongly Positive 17.5-49.9) Test Performed by: [place] [address] Health Actuary: Bruce Abdalla III, M.D. Blood specimen (specimen) 07/09/2013 3:40 PM EST 07/10/2013 8:40 AM EST Narrative Resulting Agency Comment Spec In Lab Yashira Abdullahi MD IMMUNOLOGY ORDERABLE S Performing Organization Address City/[facility]/ZIP Co de Phone Number [facility]RAZO [facility] * Venom, Hornet, Yellow-Faced IgE (07/09/2013 3:40 PM EST) Love Hornet Venom IgE 6.10 kU/L CERNER MILLENNIUM Comment: Class 3 (Positive 3.50-17.4) Test Performed by: [place] [address] Health Actuary: Bruce Abdalla III, M.D. Blood specimen (specimen) 07/09/2013 3:40 PM EST 07/10/2013 8:40 AM EST Narrative Resulting Agency Comment Spec In Lab Yashira Abdullahi MD IMMUNOLOGY ORDERABLE S Performing Organization Address City/[facility] Co de Phone Number CERNER MILLENNIUM * Venom, White Faced Hornet IgE (07/09/2013 3:40 PM EST) Wht Hornet Venom IgE 11.0 kU/L CERNER MILLENNIUM Comment: Class 3 (Positive 3.50-17.4) Test Performed by: [place] [address] Health Actuary: Bruce Abdalla III, M.D. Blood specimen (specimen) 07/09/2013 3:40 PM EST 07/10/2013 8:40 AM EST Narrative Resulting Agency Comment Spec In Lab Yashira Abdullahi MD IMMUNOLOGY ORDERABLE S Performing Organization Address [facility] [place] de Phone Number CERNER MILLENNIUM * Venom, Wasp IgE (07/09/2013 3:40 PM EST) Wasp IgE 22.5 kU/L CERNER MILLENNIUM Comment: Class 4 (Strongly Positive 17.5-49.9) Test Performed by: [place] [address] Health Actuary: Bruce Abdalla III, M.D. Blood specimen (specimen) 07/09/2013 3:40 PM EST 07/10/2013 8:40 AM EST Narrative Resulting Agency Comment Spec In Lab Yashira Abdullahi MD IMMUNOLOGY ORDERABLE S Performing Organization Address City/[facility] de Phone Number CERNER MILLENNIUM * Venom, Honeybee IgE (07/09/2013 3:40 PM EST) Honeybee Venom IgE 1.31 kU/L CERNER MILLENNIUM Comment: Class 2 (Positive 0.70-3.49) Test Performed by: [place] [address] Health Actuary: Bruce Abdalla III, M.D. Blood specimen (specimen) 07/09/2013 3:40 PM EST 07/10/2013 8:40 AM EST Narrative Resulting Agency Comment Spec In Lab Yashira Abdullahi MD IMMUNOLOGY ORDERABLE S Performing Organization Address City/State/[facility] Co de Phone Number [facility] documented in this encounter Visit Diagnoses Diagnosis Allergic rhinoconjunctivitis, bilateral- Primary Mild intermittent asthma, uncomplicated Unspecified asthma Environmental allergies Allergic rhinitis, cause unspecified Allergy to insect stings Allergy, unspecified not elsewhere classified Chronic urticaria Other specified urticaria documented in this encounter Care Teams Quality Control Assistant Relationship Specialty Start Date End Date Chantell Sharma APRN PCP - General 07/09/13 05/09/16 documented as of this encounter
--- OUTSIDE RECORDS SUMMARY | 2024-02-24 15:04 | XMS_ITS | Encounter Summary ---
Author Organization [facility] [place] [address] Care Team Providers Care Protective Signal Superintendent Name Role Phone Chantell Mims APRN Primary Care Provider [phone] Reason for Visit * Auth/Cert Specialty Diagnoses / Procedures Referred By Veronica t Referred To Contact Diagnoses Hypertrophy of breast Procedures PRO REDUCTION OF LARGE BREAST PRO EXCISE EXCESS SKIN TISSUE, ABDOMEN PRO SUCT SARAH LIPECTOMY, TRUNK 81643 BILAT 44140 ALSO BILAT 22441 Referral ID Status Reason Start Date Expiration Date Visits Re quested Visits Authorized [id number] 1 1 Encounter Details Date Type Department Care Team (Late st Contact Info) Description 06/14/2015 1:56 PM EST - 06/14/2015 6:24 PM EST Surgery [place] [address] Carlee Montenegro MD [facility] [place] [address] REDUCTION MAMMOPLASTY, ADAM (WRVU 16.03) Social History [...] 1 tablet Refills: 0 NASONEX 50 mcg/actuation [place] 2 Crosby(s) each nostril, Nasal, Twice daily Generic drug: [...] [address] [facility] [address] Scheduled Appointments: The following appointments have been scheduled on your behalf: No future appointments. Outpatient Services/Studies: Referral to Home Health - at DISCHARGE Scheduling Instructions: DOCUMENTATION FOR VNA SERVICES (INCLUDING THOSE PATIENTS WITH MEDICARE COVERAGE REQUIRING HOME VNA SERVICES AND/OR HOSPICE SERVICES) PATIENT'S LOCATION: Yessenia Luong [address] [place] [phone] (home) Cell: Telephone Information: Chorus Dancer's Name: self In discussion with the attending physician, it is certified that this patient is under their care and that they, or a Nurse Practitioner,Clinical Nurse specialist or Physician Phone Screener who is working directly with them, had [...] for managing ADL's. HOME HEALTH CARE AGENCY: [facility] PHONE: [phone] FAX: [phone] Start of care: 06/16/2015 FOR MEDICARE ONLY: [...] obtained from this patient's PCP: CHANTELL MIMS, PARACHUTE RIGGER MANINDER [address] [place] [address] All A agencies which cover the area of patient's residence have been reviewed, either verbally ida writing, and patient/family have chosen the home health care agency noted A list of Home Health Agencies/DMEs which serve the geographic area which the patient resides or the geographic area requested by the patient/labor relations representative was made available.Full Disclosure Statement provided, as appropriate. Patient requests referral to [facility]. Referral matched w agency/vendor and info provided via [employer] program Question Response Notes Agency name and [...] good night sleep. Pain (short term and computer terminal operator) ?? With any surgery there is some discomfort or pain. We will prescribe pain medication. Take as prescribed and only as needed. OK to take Tylenol, do not exceed 3 grams per day. OK to add Ibuprofen 48 hours after surgery. ?? We recommend taking an ayyy-kyc-Tdwxiwe stool softener, such as Colace (docusate) or [...] scheduling, please contact our administrative offices at [phone] ?? For clinical questions, please call our nurses at [phone] ?? Both offices are open Saturday thru Saturday 8a - 5p. With emergencies after hours, call the hospital automatic paint sprayer operator at [phone] and ask for the Plastic Surgery Resident contractor broomcorn threshing. Instructions for Abdominal Surgery During the first [...] from each drain. Call the clinic at [phone] and schedule an appointment with the nurses [...] Saturday 8 am to 5 pm Call [phone] On weekends or after hours: Call [phone] and ask the automatic paint sprayer operator to page the Plastic Surgery Resident contractor broomcorn threshing. Prescription Line: Call the line at [phone] from 8am-4pm Saturday through Saturday. Narcotic renewals [...] after surgery. ?? We recommend taking an ahth-wsr-Trkrdtn stool softener, such as Colace (docusate) or [...] scheduling, please contact our administrative offices at [phone] ?? For clinical questions, please call our nurses at [phone] ?? Both offices are open Saturday thru Saturday 8a - 5p. With emergencies after hours, call the hospital automatic paint sprayer operator at [phone] and ask for the Plastic Surgery Resident contractor broomcorn threshing. Instructions for Abdominal Surgery During the first [...] from each drain. Call the clinic at [phone] and schedule an appointment with the nurses [...] Saturday 8 am to 5 pm Call [phone] On weekends or after hours: Call [phone] and ask the automatic paint sprayer operator to page the Plastic Surgery Resident contractor broomcorn threshing. Prescription Line: Call the line at [phone] from 8am-4pm Saturday through Saturday. Narcotic renewals [...] mouth nightly. 12/06/2017 fluticasone (FLONASE) 50 mcg/actuation [place], Suspension 1 spray daily. 06/23/19 16 BUDESONIDE/FORMOTEROL [...] ORAL) 08/28/2010 12/06/2017 Mometasone (NASONEX) 50 mcg/Actuation [place] 2 Crosby(s) each nostril, Nasal, Twice daily 08/28/2010 09/03/2022 documented as of this encounter Progress Notes * Jyoti Ingram RN - 06/15/2015 4:43 PM EST I assumed care for this [atoient from [phone]. Patient discharged to home. IV removed, site [...] or the geographic area requested by the patient/labor relations representative was made available.Full Disclosure Statementprovided, as appropriate. Patient requests referral to [facility]. Referral matched w agency/vendor and info provided via CMGE * Wilman Jacobo MD - 06/14/2015 11:55 PM EST Post-Operative Progress Note Patient: Yessenia Luong s/p Surgery: 06/14/2015 [id number] Procedure(s) (LRB): REDUCTION MAMMOPLASTY, ADAM (Bilateral) ABDOMINOPLASTY (N/A) SUCTION ASSISTED LIPECTOMY,TRUNK (Bilateral) Surgeon(s) and Role: * Carlee Montenegro MD - Primary * Dudley Kramer MD: 3 Hr 37 Min 29 Sec * No complications entered in OR log * Short History: awakened from anesthesia, extubated and taken to the recovery room in a stable condition, having suffered no apparent untoward event. Patient location: [facility] Surgical Floor Post-op Consciousness awake, alert and [...] Proceed to OR for: Procedure(s): REDUCTION MAMMOPLASTY, ADMA ABDOMINOPLASTY SUCTION ASSISTED LIPECTOMY,TRUNK Dudley Kramer MD [...] Montenegro MD - 06/14/2015 8:03 PM EST [facility] Operative Note Patient Name: Yessenia Luong : [id number] MR#: [id number] Case Date: 06/14/2015 Surgeon: Surgeon(s) and Role: [...] abnormal masses were noted. A 4 mm Rbeeka canula was then chosen and liposuction of [...] 15-blade and the umbilical stalk developed with [place] scissor dissection. A 0-Vicryl suture was placed [...] Operative Note Patient Name: Yessenia Luong : [id number] MR#: [id number] Case Date: 06/14/2015 Surgeon: Surgeon(s) and Role: [...] 9:45 AM EDT Office Visit Dermatology at [place] [address] [place] [address] Emiliano Salinas MD [address] [facility], [place] [address] documented as of this encounter Procedures Procedure [...] intervals supplied above were not validated at [facility]. Results from pediatric patients should be interpreted [...] the following links into your internet browser. [email or web address] Blood specimen (specimen) 06/15/2015 10:36 AM EST 06/15/2015 10:49 AM EST Narrative Resulting Agency Comment Spec In Lab Carlee Montenegro MD CHEMISTRY ORDERABLES [facility] * Surgical Pathology Report (06/14/2015 5:25 PM EST) Final Diagnosis [id number] ? Location: [facility]; [facility]; The signing pathologist has (i) examined the [...] (R3) ?? yal 06/17/2015 10:21 AM EST [facility] BREAST STRUCTURE / Unknown 06/14/2015 5:25 PM EST 06/14/2015 5:25 PM EST BREAST STRUCTURE / Unknown 06/14/2015 5:25 PM EST 06/14/2015 5:25 PM EST Carlee Montenegro MD PATHOLOGY/CYTOLOGY O ELLA [facility] [place] [address] * Specimen to Pathology (surgical or derm) [...] MD) documented in this encounter Care Teams Protective Signal Superintendent Relationship Specialty Start Date End Date Chantell Mims APRN PCP - General 07/09/13 05/09/16 documented as of this encounter
--- OUTSIDE RECORDS SUMMARY | 2024-02-24 15:04 | XMS_ITS | Encounter Summary ---
Author Organization [facility] [place] [address] Care Team Providers Care Pick And Shovel Worker Name Role Phone Zachary Chantellrebecca Lester APRN Primary Care Provider +[phone]- [phone] Reason for Visit * Reason Comments Skin Check Encounter Details Date Type Department Care Team (Late st Contact Info) Description 08/07/2013 10:15 AM EST Office Visit Dermatology at [address] [address] Emiliano Salinas MD [address] [facility] A DERMATOLOGY [place], [place] [address] Solar lentigo (Primary Dx); Female pattern alopecia [...] p.r.n. refills. This was sent to her [facility] in [facility]. She knows this will be an hcv-my-qoauzr expense. 3. Xerosis. a. I recommended that [...] 9:45 AM EDT Office Visit Dermatology at [place] [address] [place] [address] Emiliano Salinas MD [address] [facility] [place] [address] documented as of this encounter Visit Diagnoses Diagnosis Solar lentigo- Primary Other dyschromia Female pattern alopecia Alopecia, unspecified documented in this encounter Care Teams Pick And Shovel Worker Relationship Specialty Start Date End Date Chantell Sharma APRN PCP - General 07/09/13 05/09/16 documented as of this encounter
--- OUTSIDE RECORDS SUMMARY | 2024-02-24 15:04 | XMS_ITS | Encounter Summary ---
[facility] Organization [facility] [place] [address] Care Team Providers Care Seasonal Customer Service Associate Name Role Phone Susan Sharmarebecca Lester APRN Primary Care Provider [phone]- [phone] Reason for Visit * Reason Onset Date Comments Results 08/05/2013 Encounter Details Date Type Department Care Team (Late st Contact Info) Description 08/05/2013 [place] [address] Yashira Abdullahi MD [facility] DR ALLERGY [place] [address] Results Social History Tobacco Use Types Packs/Day [...] 9:45 AM EDT Office Visit Dermatology at [place] [address] [place] [address] Emiliano Salinas MD [address], B[place] [address] documented as of this encounter Visit Diagnoses Not on filedocumented in this encounter Care Teams Seasonal Customer Service Associate Relationship Specialty Start Date End Date Chantell Sharma APRN PCP - General 07/09/13 05/09/16 documented as of this encounter
--- OUTSIDE RECORDS SUMMARY | 2024-02-24 15:04 | XMS_ITS | Encounter Summary ---
Author Organization [facility] [place] [address] Care Team Providers Care Highway Research Engineer Name Role Phone Juan Smith MD Primary Care Provider [phone] Reason for Visit * Reason Onset Date Comments Medication Refill 12/27/2017 Encounter Details Date Type Department Care Team (Late st Contact Info) Description 12/27/2017 Refill Weight and Wellness at [address] [address] Natalie Stephens MD [facility] [place] [address] Obesity, unspecified classification, unspecified obesity type, unspecified [...] 9:45 AM EDT Office Visit Dermatology at [place] [address] [place] [address] Emiliano Salinas MD [address] [facility], [place] [address] documented as of this encounter Visit Diagnoses Diagnosis Obesity, unspecified classification, unspecified obesity type, unspecified whether serious comorbidity present documented in this encounter Care Teams Highway Research Engineer Relationship Specialty Start Date End Date Juan Smith MD PCP - General Family Medicine 05/10/16 09/02/21 documented as of this encounter
--- OUTSIDE RECORDS SUMMARY | 2024-02-24 15:04 | XMS_ITS | Encounter Summary ---
Author Organization [facility] Address [facility] [place] [address] Care Team Providers Care Fishing Rod Trimmer Name Role Phone Juan Smith MD Primary Care Provider [phone] Reason for Visit * Reason Comments Procedure Encounter Details Date Type Department Care Team (Late st Contact Info) Description 03/12/2019 3:15 PM EDT Office Visit Dermatology at [facility] [address] [place] [address] Vern Salmeron MD [facility] [address] [place] [address] Encounter for cosmetic procedure Social History Tobacco [...] of this encounter Progress Notes * Vern Samleron MD - 03/12/2019 3:15 PM EDT Provider: Raymundo Salmeron M.D. ([id number]) 1950 CHIEF PROBLEM: 1. Furrowing and wrinkling [...] AM EDT Office Visit Dermatology at [place] [address] [place] [address] Emiliano Salinas MD [address], BAKARI [place] [address] documented as of this encounter Visit Diagnoses [...] Units documented in this encounter Care Teams Fishing Rod Trimmer Relationship Specialty Start Date End Date Juan Smith MD PCP - General Family Medicine 05/10/16 09/02/21 documented as of this encounter
--- OUTSIDE RECORDS SUMMARY | 2024-02-24 15:04 | XMS_ITS | Encounter Summary ---
Author Organization [facility] [place] [address] Care Team Providers Care Juice Tester Name Role Phone SharmaChantell APRN Primary Care Provider [phone] Reason for Visit * Reason Comments Skin Check Encounter Details Date Type Department Care Team (Late st Contact Info) Description 07/30/2014 9:30 AM EST Office Visit Dermatology at [address] [place] [address] Emiliano Salinas MD [address] [facility], BAKARI A DERMATOLOGY [place], [place] [id number] Androgenetic alopecia; Solar lentigo Discharge Disposition: Home [...] from the original note were not included. [facility] Hair Loss From Alopecia Areata: After [...] more? Visit our health information library at [email or web address] You can also view health information on Airizu, your personal patient account. Log in or sign up today. Enter Y465 in the search box to learn more about Hair Loss From Alopecia Areata: After Your Visit. ?? [id number] [employer]. Care instructions adapted under license by [facility]. This care instruction is for use with your licensed healthcare professional. If you have questions about a medical condition or this instruction, always ask your healthcare professional. [employer] disclaims any warranty or liability for your use of this information. Content Version: 10.3.234732; Current as of: August 19, 2013 [facility] Hair Loss From Alopecia Areata: After [...] more? Visit our health information library at [email or web address] You can also view health information on Airizu, your personal patient account. Log in or sign up today. Enter Y465 in the search box to learn more about Hair Loss From Alopecia Areata: After Your Visit. ?? [id number] [employer]. Care instructions adapted under license by [facility]. This care instruction is for use with your licensed healthcare professional. If you have questions about a medical condition or this instruction, always ask your healthcare professional. [employer] disclaims any warranty or liability for your use of this information. Content Version: 10.3.228598; Current as of: August 19, 2013 documented [...] information about the [facility] in [place] and I recommended considering a consultation visit there. 2. Solar lentigos, facial. a. The patient requested and was given facial treatment. I recommended tretinoin 0.025% cream to apply on a nightly basis. She may use it every other night if too drying; 20 grams dispensed with five refills. Apply half an hour after washing. b. The patient knows this will be an mov-[id number]-[id number] expense, not covered by insurance. This will be called in to her [facility] in [facility]. c. Return to clinic in another year for repeat check. Note: Half an hour was spent with the patient, more than half spent in counseling. documented in this encounter Plan of Treatment Upcoming Encounters Date Type Department Care Team (Late st Contact Info) Description 03/13/2024 9:45 AM EDT Office Visit Dermatology at [place] [address] [facility] [place] [address] Emiliano Salinas MD [address] [facility], B[place]AR[place] [address] documented as of this encounter Visit Diagnoses Diagnosis Androgenetic alopecia Other alopecia Solar lentigo Other dyschromia documented in this encounter Care Teams Juice Tester Relationship Specialty Start Date End Date Chantell Sharma APRN PCP - General 07/09/13 05/09/16 documented as of this encounter
--- OUTSIDE RECORDS SUMMARY | 2024-02-24 15:04 | XMS_ITS | Encounter Summary ---
Author Organization [facility] [place] [address] Care Team Providers Care Players Assistant Name Role Phone Sharma Chantellrebecca Lester APRN Primary Care Provider [phone]- [phone] Reason for Visit * Reason Comments Follow Up Surgery s/p bbr and abdomino plasty/liposuction 06/14/15 Encounter Details Date Type Department Care Team (Latest Contact Info) Description 07/29/2015 2:15 PM EST Office Visit [place] [address] Carlee Marvin MD [facility] [place] [address] Status post bilateral breast reduction; Status post [...] 9:45 AM EDT Office Visit Dermatology at [place] [address] [place] [address] Emiliano Salinas MD [address], [place] [address] documented as of this encounter Visit Diagnoses Diagnosis Status post bilateral breast reduction Other postprocedural status Status post abdominoplasty Other postprocedural status documented in this encounter Care Teams Players Assistant Relationship Specialty Start Date End Date Chantell Sharma APRN PCP - General 07/09/13 05/09/16 documented as of this encounter
--- OUTSIDE RECORDS SUMMARY | 2024-02-24 15:04 | XMS_ITS | Encounter Summary ---
Author Organization [facility] [place] [address] Care Team Providers Care Mammalogy Teacher Name Role Phone Chantell Sharma APRN Primary Care Provider [phone] Reason for Visit * Reason Comments Follow Up Surgery BBR and abdominoplas ty 06/14/15 Encounter Details Date Type Department Care Team (Latest Contact Info) Description 02/06/2016 8:45 AM EDT Office [place] [address] Carlee Marvin MD [facility] [place] [address] Macromastia; Status post abdominoplasty Social History Tobacco [...] Summer 2016 Time allotted: 60 mins CPT :56215 x 2 Follow up: 1 week with [...] 9:45 AM EDT Office Visit Dermatology at [place] [address] [place] [address] Emiliano Salinas MD [address] [facility], [place] [address] documented as of this encounter Visit Diagnoses Diagnosis Macromastia Hypertrophy of breast Status post abdominoplasty Other postprocedural status documented in this encounter Care Teams Mammalogy Teacher Relationship Specialty Start Date End Date Chantell Sharma APRN PCP - General 07/09/13 05/09/16 documented as of this encounter
--- OUTSIDE RECORDS SUMMARY | 2024-02-24 15:04 | XMS_ITS | Encounter Summary ---
Author Organization [facility] [place] [address] Care Team Providers Care Dump Truck Driver Name Role Phone Chantell Sharma APRN Primary Care Provider [phone] Reason for Visit * Reason Comments Follow Up Surgery s/p bbr and abdomino plasty/liposuction dos 06/14/14, drain removal Encounter Details Date Type Department Care Team (Latest Contact Info) Description 06/23/2015 9:00 AM EST Clinical Support [place] [address] Mery Dimas FIFTH GRADE TEACHER [facility] [place] [address] Surgery follow-up Social History Tobacco Use Types [...] clinic with any questions or concerns @ [phone] Saturday through Saturday from 8. On weekends, nights, or holidays, call the Main Hospital number @ [phone] and ask for the Plastic Surgeon origination specialist. Signs of Infection : A temperature [...] symptoms please call our nurse's line at [phone] M - F 8 documented in this [...] AM EDT Office Visit Dermatology at [address] [place] [address] Emiliano Salinas MD [address], [place] [address] documented as of this encounter Visit Diagnoses Diagnosis Surgery follow-up Follow-up examination, following unspecified surgery documented in this encounter Care Teams Dump Truck Driver Relationship Specialty Start Date End Date Chantell Sharma APRN PCP - General 07/09/13 05/09/16 documented as of this encounter
--- OUTSIDE RECORDS SUMMARY | 2024-02-24 15:04 | XMS_ITS | Encounter Summary ---
Author Organization [facility] Address [facility] [place] [address] Care Team Providers Care Copy Preparer Name Role Phone uJan Smith MD Primary Care Provider [phone] Reason for Visit * Reason Comments Follow-up Encounter Details Date Type Department Care Team (Late st Contact Info) Description 03/12/2019 3:00 PM EDT Office Visit Dermatology at [facility] [address] [place] [address] Vern Salmeron MD [facility] [address] LORRI[address] [place] [address] Rosacea; Lentigines; Holt angiomas; Seborrheic keratoses; Seborrheic [...] 03/12/2019 3:00 PM EDT Yessenia Luong 03/12/2019 [id number] Raymundo Salmeron MD ([id number]) Chief Problem: 1. Pigmented Lesion and Skin [...] Once daily ??? Mometasone (NASONEX) 50 mcg/Actuation [place] 2 [place](s) each nostril, Nasal, Twice daily [...] EDT Office Visit Dermatology at [place] [address] [facility] [place] [address] Emiliano Salinas MD [address], [place] [address] documented as of this encounter Visit Diagnoses Diagnosis Rosacea Lentigines Other dyschromia Holt angiomas Nevus, non-neoplastic Seborrheic keratoses Other seborrheic keratosis Seborrheic keratoses, inflamed Inflamed seborrheic keratosis Hair thinning Alopecia, unspecified documented in this encounter Care Teams Copy Preparer Relationship Specialty Start Date End Date Juan Smith MD PCP - General Family Medicine 05/10/16 09/02/21 documented as of this encounter
--- OUTSIDE RECORDS SUMMARY | 2024-02-24 15:04 | XMS_ITS | Encounter Summary ---
Author Organization [facility] [place] [address] Care Team Providers Care Assistant Professor Of History Name Role Phone Juan Smith MD Primary Care Provider [phone] Encounter Details Date Type Department Care Team (Late st Contact Info) Description 06/14/2017 Telephone Dermatology at [facility] [address] [place] [address] Vern Salmeron MD [facility] [address] [place] [address] Social History Tobacco Use Types Packs/Day Years [...] 9:45 AM EDT Office Visit Dermatology at [place] [address] [facility] [place] [address] Emiliano Salinas MD [address], BAKARI [place] [address] documented as of this encounter Visit Diagnoses Not on filedocumented in this encounter Care Teams Assistant Professor Of History Relationship Specialty Start Date End Date Juan Smith MD PCP - General Family Medicine 05/10/16 09/02/21 documented as of this encounter
--- OUTSIDE RECORDS SUMMARY | 2024-02-24 15:04 | XMS_ITS | Encounter Summary ---
Author Organization [facility] [place] [address] Care Team Providers Care Family Coach Name Role Phone MimsChantell APRN Primary Care Provider [phone] Reason for Visit * Reason Comments Advice Only liposuction abdomen, bbr, Encounter Details Date Type Department Care Team (Late st Contact Info) Description 02/08/2015 9:45 AM EDT Office [place] [address] Carlee Marvin MD [facility] [place] [address] Macromastia Discharge Disposition: Home Social History Tobacco [...] and panniculus. She initially met with Dr. Frgeoso and Dr. House in 2005 for these [...] Vaginal prolapse repair 04/11/2007 Dr. Castaneda, at [facility] ??? 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 traZODone (DESYREL) 100 mg tablet Take 100 mg by mouth nightly. ??? fexofenadine (EVANGELINA) 180 mg tablet 180 mg, PO, Once daily ??? Mometasone (NASONEX) 50 mcg/Actuation [place] 2 [place](s) each nostril, Nasal, Twice daily ??? [DISCONTINUED] [...] her breast-related symptoms. She was providedwith an [facility] brochure and informed consent on breast reduction. [...] possibilities. She has been provided with the [facility] patient information brochure as well as [...] surgery is best done at a realistic senior living stable weight. We talked about the outpatient nature of the surgery, drains, postoperative recovery, and time required off work. She has been referred to [email or web address] and provided with my e-mail address. The [...] revisions for scarring or asymmetry.) Fu[place] or [place] Pattern Incision: More scarring on breast, but [...] 30 minutes liposuction of axillary region CPT: 50070, 14421, 76340 ( 30 minutes) Surgical site: Breast/abdomen Side: Bilateral Anesthesia: General Follow up: 1 day for drain removal , 7 days with Mery Dimas PAT: No Medical clearance from PCP IErin am acting as scribe for Dr aMrvin. All work documented was performed by Dr Marvin. ???I performed the above scribed service and agree with the accuracy of the note?? CARLEE MARVIN MD documented in this encounter Plan of Treatment Upcoming Encounters Date Type Department Care Team (Late st Contact Info) Description 03/13/2024 9:45 AM EDT Office Visit Dermatology at [place] [address] [place] [address] Emiliano Salinas MD [address], [place] [address] documented as of this encounter Procedures Procedure Name Priority Date/Time Associated Diagnosis Comments REDUCTION MAMMOPLASTY, BILATERAL Routine 02/08/2015 11:26 AM EDT documented in this encounter Visit Diagnoses Diagnosis Macromastia Hypertrophy of breast documented in this encounter Care Teams Family Coach Relationship Specialty Start Date End Date Chantell Mims APRN PCP - General 07/09/13 05/09/16 documented as of this encounter
--- OUTSIDE RECORDS SUMMARY | 2024-02-24 15:04 | XMS_ITS | Encounter Summary ---
Author Organization [facility] Address [facility] [place] [address] Care Team Providers Care Sewer System Supervisor Name Role Phone Juan Smith MD Primary Care Provider [phone] Reason for Visit * Reason Comments Skin Check Encounter Details Date Type Department Care Team (Late st Contact Info) Description 02/12/2017 10:00 AM EDT Office Visit Dermatology at [facility] [address] [place] [address] Vern Salmeron MD [facility] DR LORRIE BOX-[place] [address] Androgenic alopecia Social History Tobacco Use Types [...] 02/12/2017 10:00 AM EDT Yessenia Luong 02/12/2017 [id number] Raymundo Salmeron MD ([id number]) Chief Problem: 1. Pigmented Lesion and Skin [...] MAGNESIUM ORAL) ??? Mometasone (NASONEX) 50 mcg/Actuation [place] 2 [place](s) each nostril, Nasal, Twice daily No current [...] [5% strength] to promote hair growth. This klvv-pzz-axfawso product is FDA-approved for androgenetic alopecia, and [...] 9:45 AM EDT Office Visit Dermatology at [place] [address] [place] [address] Emiliano Salinas MD [address] [facility], [place] [address] documented as of this encounter Visit Diagnoses Diagnosis Androgenic alopecia Other alopecia documented in this encounter Care Teams Sewer System Supervisor Relationship Specialty Start Date End Date Juan Smith MD PCP - General Family Medicine 05/10/16 09/02/21 documented as of this encounter
--- OUTSIDE RECORDS SUMMARY | 2024-02-24 15:04 | XMS_ITS | Encounter Summary ---
Author Organization [facility] [place] [address] Care Team Providers Care Grill Cook Name Role Phone Chantell Mims APRN Primary Care Provider [phone]- [phone] Reason for Visit * Auth/Cert Specialty Diagnoses / Procedures Referred By Veronica t Referred To Contact Diagnoses Hypertrophy of breast Procedures PRO REDUCTION OF LARGE BREAST PRO EXCISE EXCESS SKIN TISSUE, ABDOMEN PRO SUCT SARAH LIPECTOMY, TRUNK 80227 BILAT 84328 ALSO BILAT 71308 Referral ID Status Reason Start Date Expiration Date Visits Re quested Visits Authorized [id number] 1 1 Encounter Details Date Type Department Care Team (Latest Contact Info) Description 06/14/2015 11:54 AM EST - 06/15/2015 5:08 PM [facility] Hospital Encounter 3 [place] [address] Carlee Montenegro MD [facility] [place] [address] S/P reduction mammoplasty Discharge Disposition: Home Social [...] 1 tablet Refills: 0 NASONEX 50 mcg/actuation Opal 2 [place](s) each nostril, Nasal, Twice daily Generic drug: [...] APRN BAKARI [address] / [facility] [address] Scheduled Appointments: The following appointments have been scheduled on your behalf: No future appointments. Outpatient Services/Studies: Referral to Home Health - at DISCHARGE Scheduling Instructions: DOCUMENTATION FOR VNA SERVICES (INCLUDING THOSE PATIENTS WITH MEDICARE COVERAGE REQUIRING HOME VNA SERVICES AND/OR HOSPICE SERVICES) PATIENT'S LOCATION: Yessenia Luong [address] [place] [id number] (home) Cell: Telephone Information: Mail Distribution Scheme Examiner's Name: self In discussion with the attending physician, it is certified that this patient is under their care and that they, or a Nurse Practitioner,Clinical Nurse specialist or Physician Senior Data Integration Developer who is working directly with them, had [...] for managing ADL's. HOME HEALTH CARE AGENCY: [facility] PHONE: [phone] FAX: [phone] Start of care: 06/16/2015 FOR MEDICARE ONLY: [...] obtained from this patient's PCP: CHANTELL MIMS, DAIRY FARM MANAGER BAKARI [address] / [place] [address] All A agencies which cover the area of patient's residence have been reviewed, either verbally ida writing, and patient/family have chosen the home health care agency noted A list of Home Health Agencies/DMEs which serve the geographic area which the patient resides or the geographic area requested by the patient/patient representative was made available.Full Disclosure Statement provided, as appropriate. Patient requests referral to [facility]. Referral matched w agency/vendor and info provided via [employer] program Question Response Notes Agency name and contact information [facility] Patient location post discharge home [...] good night sleep. Pain (short term and intermediate) ?? With any surgery there is some discomfort or pain. We will prescribe pain medication. Take as prescribed and only as needed. OK to take Tylenol, do not exceed 3 grams per day. OK to add Ibuprofen 48 hours after surgery. ?? We recommend taking an gfwh-xqd-Toqrzda stool softener, such as Colace (docusate) or [...] scheduling, please contact our administrative offices at [phone] ?? For clinical questions, please call our nurses at [phone] ?? Both offices are open Saturday thru Saturday 8a - 5p. With emergencies after hours, call the hospital pointing machine operator at [phone] and ask for the Plastic Surgery Resident real estate listing consultant. Instructions for Abdominal Surgery During the first [...] from each drain. Call the clinic at [phone] and schedule an appointment with the nurses [...] Saturday 8 am to 5 pm Call [phone] On weekends or after hours: Call [phone] and ask the pointing machine operator to page the Plastic Surgery Resident real estate listing consultant. Prescription Line: Call the line at [phone] from 8am-4pm Saturday through Saturday. Narcotic renewals [...] good night sleep. Pain (short term and intermediate) ?? With any surgery there is some discomfort or pain. We will prescribe pain medication. Take as prescribed and only as needed. OK to take Tylenol, do not exceed 3 grams per day. OK to add Ibuprofen 48 hours after surgery. ?? We recommend taking an rwtk-pof-Rwmurvu stool softener, such as Colace (docusate) or [...] scheduling, please contact our administrative offices at [phone] ?? For clinical questions, please call our nurses at [phone] ?? Both offices are open Saturday thru Saturday 8a - 5p. With emergencies after hours, call the hospital pointing machine operator at [phone] and ask for the Plastic Surgery Resident real estate listing consultant. Instructions for Abdominal Surgery During the first [...] each drain. Call the clinic at [phone] and schedule an appointment with the nurses [...] Saturday 8 am to 5 pm Call [phone] On weekends or after hours: Call [phone] and ask the pointing machine operator to page the Plastic Surgery Resident real estate listing consultant. Prescription Line: Call the line at [phone] from 8am-4pm Saturday through Saturday. Narcotic renewals [...] mouth nightly. 12/06/2017 fluticasone (FLONASE) 50 mcg/actuation [place], Suspension 1 spray daily. 06/23/19 16 BUDESONIDE/FORMOTEROL [...] ORAL) 08/28/2010 12/06/2017 Mometasone (NASONEX) 50 mcg/Actuation Opal 2 [place](s) each nostril, Nasal, Twice daily 08/28/2010 09/03/2022 documented as of this encounter Progress Notes * Jyoti Ingram RN - 06/15/2015 4:43 PM EST I assumed care for this [atoient from [phone]. Patient discharged to home. IV removed, site [...] or the geographic area requested by the patient/patient representative was made available.Full Disclosure Statementprovided, as appropriate. Patient requests referral to [facility]. Referral matched w agency/vendor and info provided via [employer] * Wilman Jacobo MD - 06/14/2015 11:55 PM EST Post-Operative Progress Note Patient: Yessenia Luong s/p Surgery: 06/14/2015 [id number] Procedure(s) (LRB): REDUCTION MAMMOPLASTY, ADAM (Bilateral) ABDOMINOPLASTY (N/A) SUCTION ASSISTED LIPECTOMY,TRUNK (Bilateral) Surgeon(s) and Role: * Carlee Montenegro MD - Primary * Dudley Kramer MD: 3 Hr 37 Min 29 Sec * No complications entered in OR log * Short History: awakened from anesthesia, extubated and taken to the recovery room in a stable condition, having suffered no apparent untoward event. Patient location: [facility] Surgical Floor Post-op Consciousness awake, [...] Montenegro MD - 06/14/2015 8:03 PM EST [facility] Operative Note Patient Name: Yessenia Luong : [id number] MR#: [id number] Case Date: 06/14/2015 Surgeon: Surgeon(s) and Role: [...] Operative Note Patient Name: Yessenia Luong : [id number] MR#: [id number] Case Date: 06/14/2015 Surgeon: Surgeon(s) and Role: [...] 9:45 AM EDT Office Visit Dermatology at [place] [address] [place] [address] Emiliano Salinas MD [address], [place] [address] documented as of this encounter Procedures Procedure [...] intervals supplied above were not validated at [facility]. Results from pediatric patients should be interpreted [...] the following links into your internet browser. [email or web address] Blood specimen (specimen) 06/15/2015 10:36 AM EST 06/15/2015 10:49 AM EST Narrative Resulting Agency Comment Spec In Lab Carlee Montenegro MD CHEMISTRY ORDERABLES [facility] * Surgical Pathology Report (06/14/2015 5:25 PM EST) Final Diagnosis [id number] ? Location: [facility]; [facility]; The signing pathologist has (i) [...] (R3) ?? yal 06/17/2015 10:21 AM EST [facility] BREAST STRUCTURE / Unknown 06/14/2015 5:25 PM EST 06/14/2015 5:25 PM EST BREAST STRUCTURE / Unknown 06/14/2015 5:25 PM EST 06/14/2015 5:25 PM EST Carlee Montenegro MD PATHOLOGY/CYTOLOGY O ELLA [facility] [place] [address] * Specimen to Pathology (surgical or derm) (06/14/2015 5:25 PM EST) AP Specimen 06/14/2015 5:25 PM EST 06/14/2015 5:25 PM EST Narrative [facility] - 06/14/2015 5:25 PM EST Specimen requisition ordered. ??Separate Pathology report to follow Carlee Montenegro MD PATHOLOGY/CYTOLOGY O ELLA [facility] * Specimen to Pathology (surgical or derm) [...] MD) documented in this encounter Care Teams Grill Cook Relationship Specialty Start Date End Date Chantell Mims APRN PCP - General 07/09/13 05/09/16 documented as of this encounter
--- OUTSIDE RECORDS SUMMARY | 2024-02-24 15:04 | XMS_ITS | Encounter Summary ---
Author Organization [facility] [place] [address] Care Team Providers Care [employer]p [employer] Name Role Phone Juan Smith MD Primary Care Provider [phone] Reason for Referral * Diagnostic Test (Routine) - Closed Specialty Diagnoses / Procedures Referred By Contac t Referred To Contact Radiology Diagnoses Chest pain, unspecified type SOB (shortness of breath) Procedures NM Pharmacologic Stress Myocardial Perfusion Tory Chambers MD [facility] [place] [address] [place] [address] Referral ID Status Reason Start Date Expiration Date V isits Requested Visits Authorized [id number] Closed Specialty Service Requested 03/05/2019 05/03/2019 1 1 * Diagnostic Test (Routine) - Closed Specialty Diagnoses / Procedures Referred By Contac t Referred To Contact Radiology Diagnoses Chest pain, unspecified type SOB (shortness of breath) Procedures NM Pharmacologic Stress CT Component Tory Chambers MD [facility] [place] [address] [place] [address] Referral ID Status Reason Start Date Expiration Date V isits Requested Visits Authorized [id number] Closed Specialty Service Requested 02/13/2019 02/13/2020 1 1 Reason for Visit * Consultation (Routine) - Closed Specialty Diagnoses / Procedures Referred By Contac t Referred To Contact Cardiology Diagnoses Familial hypercholesterolemia Pt has not tolerated statins or PSK9 agents. Referral to [facility] lipid clinic. Juan Smith MD [address] [place] [address] [place] [address] Tory Chambers MD [facility] [place] [place] [address] Referral ID Status Reason Start Date Expiration Date Visits Re quested Visits Authorized [id number] Closed 12/09/2018 12/09/2019 1 1 Encounter Details Date Type Department Care Team (Late st Contact Info) Description 02/13/2019 11:20 AM EDT Office Visit Cardiology at [place] [phone] Tory Chambers MD Familial hypercholesterolemia; Chest pain, [...] Chambers MD - 02/13/2019 11:20 AM EDT [facility] V[facility] Lipid Clinic--Initial Consultation [...] history: 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 She was in 2002 and has had a significant other for many years. Boyfriend (Deacon Peterson) lives in [place]. She has 5 children (2 biologic and [...] She has a niece that works for [employer] and told her about the REDUCE IT [...] chicken sausage coffee almond milk Lunch: salad Kazakh dressing, Oat bread sandwich - cheese and [...] azelastine (ASTELIN) 137 mcg (0.1 %) Aerosol, [place] 0 ??? PROVENTIL HFA 90 mcg/actuation HFA [...] Once daily ??? Mometasone (NASONEX) 50 mcg/Actuation [place] 2 [place](s) each nostril, Nasal, Twice daily [...] explained that it is offered here at [facility] but that it is quite a [...] 9:45 AM EDT Office Visit Dermatology at [place] [address] [place] [address] Emiliano Salinas MD [address], BAKAR[place] [address] documented as of this encounter Results * CRP, cardiac risk (HS CRP) (04/17/2019 9:21 AM EST) [facility] C-Reactive Protein High Sensitivity 1.6 mg/L [facility] Comment: For cardiac risk [...] 2003; 107:363-369 CRP Cardiac Risk Moderate Risk [facility] Blood specimen (specimen) 04/17/2019 9:21 AM EST 04/17/2019 9:40 AM EST Narrative Resulting Agency Comment Spec In Lab Tory Chambers MD CHEMISTRY ORDERABLES [facility] [place] [address] * Lipid Panel (Reflex Direct LDL) (04/17/2019 9:21 AM EST) [facility] Cholesterol, Total 252 mg/dL [facility] Comment: Lower Risk: <200 mg/dL Average Risk: 200-239 mg/dL Higher Risk: >ho=936 mg/dL Triglyceride 157 mg/dL [facility] Comment: Average Risk/Lower Risk: <150 mg/dL Borderline High Risk: 150-199 mg/dL High Risk: 200-499 mg/dL Very High Risk: >xa=794 mg/dL HDL Cholesterol 74 mg/dL [facility] Comment: Males: ?? Higher Risk: <40 mg/dL Females: ?? HIgher Risk: <50 mg/dL LDL Cholesterol 147 mg/dL [facility] Comment: Lowest Risk: <100 mg/dL Lower Risk: 100-129 mg/dL Borderline High Risk: 130-159 mg/dL High Risk: 160-189 mg/dL Very High Risk: >rh=410 mg/dL Cholesterol/HDL Ratio 3.4 ratio [facility] Lipid Interpretation See Note [facility] Comment: Lipid management should be guided by a patient? s ASCVD risk, goals and preferences. ACC/AHA Guidelines recommend high intensity statin if clinical ASCVD or LDL greater than or equal to 190 mg/dL. http://XATA.com/EIP-JVO-Agbstatsi Adults aged 40-75 with LDL 70-189 mg/dL should have their 10 year ASCVD risk estimated with the ACC/AHA ASCVD risk glass cutter hand http://tools.acc.org/NFGCJ-Lkjw-Gisnaqaei/ Statin should be discussed if risk greater [...] In Lab Tory Chambers MD CHEMISTRY ORDERABLES [facility] [place] [address] * NM Pharmacologic Stress CT Component (03/12/2019 [...] contact the number below. Tory Chambers MD [facility] [place] ORDERABLES * TSH (02/13/2019 9:49 AM EDT) Thyroid Stimulating Hormone 2.34 0.27 - 4.20 mcIU/mL [facility] Blood specimen (specimen) 02/13/2019 9:49 AM EDT 02/13/2019 9:59 AM EDT Narrative Resulting Agency Comment Spec In Lab Tory Chambers MD CHEMISTRY ORDERABLES [facility] [place] [address] * (ABNORMAL) Comprehensive metabolic panel (non-fasting) (02/13/2019 9:49 AM EDT) Glucose 108 65 - 199 mg/dL [facility] Comment:Diabetes: >=200 mg/d L plus symptoms Blood Urea Nitrogen 19(H) 8 - 18 mg/dL [facility] Creatinine 0.79 0.70 - 1.20 mg/dL [facility] Sodium 142 135 - 145 mmol/L [facility] Potassium 3.6 3.5 - 5.0 mmol/L [facility] Comment: Please note: ??Patients with WBC >100,000 may have falsely elevated Potassium levels. ??For accurate Potassium quantification in these patients send serum separator tube (gold top) for subsequent determinations. ??Contact the Clinical Chemistry Laboratory if there are any questions. Chloride 101 98 - 107 mmol/L [facility] Carbon Dioxide 28 22 - 31 mmol/L [facility] Anion Gap 13 5 - 15 mmol/L [facility] Calcium 9.8 8.5 - 10.5 mg/dL [facility] Protein, Total 7.5 6.1 - 8.0 gm/dL [facility] Albumin 4.8 3.2 - 5.2 gm/dL [facility] Aspartate Aminotransferase 22 0 - 30 unit/L [facility] Alanine Aminotransferase 24 0 - 30 unit/L [facility] Alkaline Phosphatase 64 35 - 105 unit/L [facility] Bilirubin, Total 0.4 0.2 - 1.3 mg/dL [facility] Est Glomerular Filtration Rate 76 >=60 mL/min/1. 73 m?? [facility] Comment: The eGFR was calculated using the CKD-EPI equation. As with all creatinine based estimates of kidney function, eGFR values calculated with the CKD-EPI equation are not accurate in patients with acute kidney failure, extremes of body mass or the acutely ill. [email or web address] eGFR 88 >=60 mL/min/1. 73 m?? [facility] Comment: The eGFR was calculated using the CKD-EPI equation. As with all creatinine based estimates of kidney function, eGFR values calculated with the CKD-EPI equation are not accurate in patients with acute kidney failure, extremes of body mass or the acutely ill. [email or web address]MAN[facility]f Blood specimen (specimen) 02/13/2019 9:49 AM EDT 02/13/2019 9:59 AM EDT Narrative Resulting Agency Comment Spec In Lab Tory Chambers MD CHEMISTRY ORDERABLES Performing Organization Address [facility]/ZIP Co de Phone Number [facility] [place] [address] * Lipoprotein A (02/13/2019 9:49 AM EDT) Lipoprotein (a) 6 <=30 mg/dL [facility] Comment: Test Performed by: [place] [address] Canoe Inspector Final: Kyle Michel M.D. Ph.D.; CLIA# [id number] Blood specimen (specimen) 02/13/2019 9:49 AM EDT 02/13/2019 3:06 PM EDT Narrative Resulting Agency Comment Spec In Lab Tory Chambers MD LAB SEND OUT ORDERAB LES Performing Organization Address City/[facility]/ZIP Co de Phone Number [facility] [place] [address] * Lipid Panel (02/13/2019 9:49 AM EDT) Cholesterol, Total 324 mg/dL [facility] Comment: Lower Risk: <200 mg/dL Average Risk: 200-239 mg/dL Higher Risk: >nu=704 mg/dL Triglyceride 183 mg/dL [facility] Comment: Average Risk/Lower Risk: <150 mg/dL Borderline High Risk: 150-199 mg/dL High Risk: 200-499 mg/dL Very High Risk: >vo=210 mg/dL HDL Cholesterol 68 mg/dL [facility] Comment: Males: ?? Higher Risk: <40 mg/dL Females: ?? HIgher Risk: <50 mg/dL LDL Cholesterol 219 mg/dL [facility] Comment: Lowest Risk: <100 mg/dL Lower Risk: 100-129 mg/dL Borderline High Risk: 130-159 mg/dL High Risk: 160-189 mg/dL Very High Risk: >pq=620 mg/dL Cholesterol/HDL Ratio 4.8 ratio [facility] Lipid Interpretation See Note [facility] Comment: Lipid management should be guided by a patient? s ASCVD risk, goals and preferences. ACC/AHA Guidelines recommend high intensity statin if clinical ASCVD or LDL greater than or equal to 190 mg/dL. http://XATA.com/WMG-ARF-Pywfbbxvp Adults aged 40-75 with LDL 70-189 mg/dL should have their 10 year ASCVD risk estimated with the ACC/AHA ASCVD risk glass cutter hand http://tools.acc.org/HZHLI-Tkjq-Wwqiunqvc/ Statin should be discussed if risk greater [...] In Lab Tory Chambers MD CHEMISTRY ORDERABLES [facility] [place] [address] documented in this encounter Visit Diagnoses Diagnosis Familial hypercholesterolemia Pure hypercholesterolemia Chest pain, unspecified type SOB (shortness of breath) Shortness of breath Chest pain, unspecified type SOB (shortness of breath) Shortness of breath Chest pain, unspecified type SOB (shortness of breath) Shortness of breath documented in this encounter Care Teams [employer] Relationship Specialty Start Date End Date Juan Smith MD PCP - General Family Medicine 05/10/16 09/02/21 documented as of this encounter
--- OUTSIDE RECORDS SUMMARY | 2024-02-24 15:04 | XMS_ITS | Encounter Summary ---
Author Organization [facility] [place] [address] Care Team Providers Care Ladle Liner Name Role Phone Chantell Sharma APRN Primary Care Provider [phone] Reason for Visit * Auth/Cert Specialty Diagnoses / Procedures Referred By Veronica t Referred To Contact Diagnoses Hypertrophy of breast Procedures PRO REDUCTION OF LARGE BREAST PRO EXCISE EXCESS SKIN TISSUE, ABDOMEN PRO SUCT SARAH LIPECTOMY, TRUNK 76179 BILAT 65648 ALSO BILAT 01045 Referral ID Status Reason Start Date Expiration Date Visits Re quested Visits Authorized [id number] 1 1 Encounter Details Date Type Department Care Team (Late st Contact Info) Description 06/14/2015 4:01 PM EST Anesthesia Event [place] [address] Sunita Washington MD [facility] [place] [address] Sergey Munoz CRNA [facility] [place] [address] Anesthesia Record Procedure Summary Procedure Name Responsible [...] 1245; metacarpal vein left (top of hand); [id number] catheter system; 18 gauge; BSmithRN; intradermal injection; [...] Notes * Anesthesia Postprocedure Evaluation - Sunita aWshington MD - 06/15/2015 12:23 PM EST [facility] Department of Anesthesiology Post-procedure Note Patient: Yessenia Luong Procedure Summary Date Anesthesia Start Anesthesia Stop Room / Location 06/14/15 1601 1951 [facility] Procedure Diagnosis Surgeon Responsible [...] Vaginal prolapse repair 04/11/2007 Dr. Castaneda, at [facility] ??? section 1979, 1981 Complciated by infection [...] consented to blood products. Plan discussed with JOCKEY VALET. PAT Staff Note documented in this encounter Plan of Treatment Upcoming Encounters Date Type Department Care Team (Late st Contact Info) Description 03/13/2024 9:45 AM EDT Office Visit Dermatology at [place] [address] [place] [address] Emiliano Salinas MD [address], [place] [address] documented as of this encounter Visit Diagnoses [...] mg documented in this encounter Care Teams Ladle Liner Relationship Specialty Start Date End Date Chantell Sharma APRN PCP - General 07/09/13 05/09/16 documented as of this encounter
--- OUTSIDE RECORDS SUMMARY | 2024-02-24 15:04 | XMS_ITS | Encounter Summary ---
Author Organization [facility] Address [facility] [place] [address] Care Team Providers Care Clarification Operator Name Role Phone Juan Smith MD Primary Care Provider [phone] Reason for Visit * Reason Comments Laser Treatment Encounter Details Date Type Department Care Team (Late st Contact Info) Description 05/10/2016 1:30 PM EST Office Visit Dermatology at [facility] [address] [place] [address] Vern Salmeron MD [facility] [address] L[address]RI[address] [place] [address] Androgenic alopecia; Telangiectasia; Solar lentigo; Seborrheic keratosis [...] discomfort For further questions and concerns contact: [phone] Nurse message line [phone] Pita (Dr. Salmeron's Appointment Compactor Driver) In any case of emergency for weekends and off hours please contact [facility] main number and ask for case maker registered nurse bone marrow transplant at [phone] documented in this encounter Progress Notes * Vern Salmeron MD - 05/10/2016 1:30 PM EST Images from the original note were not included. Provider: Raymundo Salmeron M.D. ([id number]) Chief Problem: 1. Rosacea & Telangiectasias 2. [...] X 3 Sent to Sandra Perkins in [facility]. Follow up: Skin check 3-6 months Cosmetic cost today: $350 processed at discharge from clinic I am documenting this encounter acting as the scribe for and in the presence of BERRTAM Gamboa, RN I performed the above scribed service and agree with the accuracy of the documentation in this encounter, MD Raymundo Aldridge M.D. Section of Dermatology documented in this encounter Plan of Treatment Upcoming Encounters Date Type Department Care Team (Late st Contact Info) Description 03/13/2024 9:45 AM EDT Office Visit Dermatology at [address] [address] Emiliano Salinas MD [address] [facility], [place] [address] documented as of this encounter Visit Diagnoses Diagnosis Androgenic alopecia Other alopecia Telangiectasia Other and unspecified capillary diseases Solar lentigo Other dyschromia Seborrheic keratosis Other seborrheic keratosis documented in this encounter Care Teams Clarification Operator Relationship Specialty Start Date End Date Juan Smith MD PCP - General Family Medicine 05/10/16 09/02/21 documented as of this encounter
--- OUTSIDE RECORDS SUMMARY | 2024-02-24 15:04 | XMS_ITS | Encounter Summary ---
Author Organization [facility] Address [facility] [place] [address] Care Team Providers Care Stranding Supervisor Name Role Phone Chantell Sharma APRN Primary Care Provider [phone] Encounter Details Date Type Department Care Team (Late st Contact Info) Description 02/07/2016 Telephone Dermatology at [facility] [address] [place] [address] Vern Salmeron MD [facility] [address] [place] [address] Social History Tobacco Use Types Packs/Day Years [...] RN - 02/07/2016 3:10 PM EDT This conventional underwriter returned patient's call. She requested an estimate [...] 9:45 AM EDT Office Visit Dermatology at [place] [address] [facility] [place] [address] Emiliano Salinas MD [address], BAKARI [place] [address] documented as of this encounter Visit Diagnoses Not on filedocumented in this encounter Care Teams Stranding Supervisor Relationship Specialty Start Date End Date Chantell Sharma APRN PCP - General 07/09/13 05/09/16 documented as of this encounter
--- OUTSIDE RECORDS SUMMARY | 2024-02-24 15:04 | XMS_ITS | Encounter Summary ---
Author Organization [facility] [place] [address] Care Team Providers Care Flat Examiner Name Role Phone Juan Smith MD Primary Care Provider [phone] Reason for Visit * Diagnostic Test (Routine) - Closed Specialty Diagnoses / Procedures Referred By Contac t Referred To Contact Radiology Diagnoses Chest pain, unspecified type SOB (shortness of breath) Procedures NM Pharmacologic Stress Myocardial Perfusion Tory Montalvo MD [facility] [place] [address] [place] [address] Referral ID Status Reason Start Date Expiration Date V isits Requested Visits Authorized [id number] Closed Specialty Service Requested 03/05/2019 05/03/2019 1 1 Encounter Details Date Type Department Care Team (Latest Contact Info) Description 03/12/2019 9:23 AM EDT Hospital En[place] [address] Tory Montalvo MD Discharge Disposition: [...] azelastine (ASTELIN) 137 mcg (0.1 %) Aerosol, [place] 0 11/06/2017 0 09/03/2022 ASCORBATE CALCIUM (VITAMIN C ORAL) Take by mouth. 09/03/2022 ERGOCALCIFEROL, VITAMIN D2, (VITAMIN D ORAL) Take by mouth. multivitamin (THERAGRAN) tablet Take 1 tablet by mouth daily. 09/03/2022 fexofenadine (EVANGELINA) 180 mg tablet 180 mg, PO, Once daily 08/28/2010 09/03/2022 Mometasone (NASONEX) 50 mcg/Actuation [place] 2 [place](s) each nostril, Nasal, Twice daily 08/28/2010 09/03/2022 documented as of this encounter Plan of Treatment Upcoming Encounters Date Type Department Care Team (Late st Contact Info) Description 03/13/2024 9:45 AM EDT Office Visit Dermatology at [place] [address] [facility] [place] [address] Emiliano Salinas MD [address], [place]AR[place] [address] documented as of this encounter Procedures Procedure [...] Noah Arcos [facility] ([phone]), at 03/12/2019 4:26 PM Narrative 03/12/2019 4:26 [...] by: Noah Arcos [facility]([phone]), at 03/12/2019 4:26 PM Tory Montalvo MD IMG NM ORDERABLES * [...] Noah Arcos [facility] ([phone]), at 03/12/2019 4:26 PM Narrative 03/12/2019 4:26 [...] by: Noah Arcos [facility]([phone]), at 03/12/2019 4:26 PM Tory Montalvo MD IM NM ORDERABLES documented in this encounter Visit Diagnoses Not on filedocumented in this encounter Care Teams Flat Examiner Relationship Specialty Start Date End Date Juan Smith MD PCP - General Family Medicine 05/10/16 09/02/21 documented as of this encounter
--- OUTSIDE RECORDS SUMMARY | 2024-02-24 15:04 | XMS_ITS | Encounter Summary ---
Author Organization [facility] Address [facility] [place] [address] Care Team Providers Care Manager Social Responsibility Name Role Phone Chantell Sharma APRN Primary Care Provider [phone] Reason for Visit * Reason Comments Skin Check Hair Loss Encounter Details Date Type Department Care Team (Late st Contact Info) Description 02/06/2016 10:00 AM EDT Office Visit Dermatology at [facility] [address] [place] [address] Javan Juares MD [facility] [place] [address] Androgenetic alopecia; Telangiectasia; Rhytides Social History Tobacco [...] also a patient of Dr. Salinas in [facility]. Skin History: Rosacea Telangiectasia Medical History: [...] MAGNESIUM ORAL) ??? Mometasone (NASONEX) 50 mcg/Actuation [place] 2 [place](s) each nostril, Nasal, Twice daily No current [...] Juares MD Reviewed and signed by Javan Juarse MD Resident in Dermatology [facility] Staff unit control clerk: Karla Gaines MD Section of Dermatology [facility] * Karla Gaines MD - 02/06/2016 10:00 AM EDT I was the supervising physician working with Dermatology resident, Dr. Juares, in the Dermatology Clinic during this patient visit. The level of resident supervision for this patient visit was indirect supervision with direct supervision immediately available (definition: [facility] GME Policy Statement on Graduate Medical Education, Supervision of Graduate Medical Trainees). I was immediately available to Dr. Juares for questions and discussion regarding this visit. I have reviewed his encounter note details and level of service. KARLA GAINES MD [facility] Staff Physician documented in this encounter Plan of Treatment Upcoming Encounters Date Type Department Care Team (Late st Contact Info) Description 03/13/2024 9:45 AM EDT Office Visit Dermatology at [place] [address] [facility] [place] [address] Emiliano Salinas MD [address], [place] [address] documented as of this encounter Visit Diagnoses Diagnosis Androgenetic alopecia Other alopecia Telangiectasia Other and unspecified capillary diseases Rhytides Other specified hypertrophic and atrophic condition of skin documented in this encounter Care Teams Manager Social Responsibility Relationship Specialty Start Date End Date Chantell Sharma APRN PCP - General 07/09/13 05/09/16 documented as of this encounter
--- OUTSIDE RECORDS SUMMARY | 2024-02-24 15:04 | XMS_ITS | Encounter Summary ---
Author Organization [facility] [place] [address] Care Team Providers Care Flute Grinder Name Role Phone Juan Smith MD Primary Care Provider [phone] Encounter Details Date Type Department Care Team (Latest Contact Info) Description 02/13/2019 11:20 AM EDT Clinical Support Cardiology at [address] [address] Derick Acosta, RD [facility] [place] [address] Nutritional counseling Social History Tobacco Use Types [...] a) Food & Symptom Record-keeping. Suggested using [employer] karina to track intakes. NUTRITION EDUCATION: Discussed [...] least four times/week for iodine b) Reduce ydo-xghjmdfg-uiymw foods NUTRITION MONITORING PLAN/EVALUATION/SURVEILLANCE PLAN: See patient when she returns for her cardiology f/u. Discuss questions and concerns. Do nutrient analysis. documented in this encounter Plan of Treatment Upcoming Encounters Date Type Department Care Team (Late st Contact Info) Description 03/13/2024 9:45 AM EDT Office Visit Dermatology at [place] [address] [facility] [place] [address] Emiliano Salinas MD [address], [place] [address] documented as of this encounter Visit Diagnoses Diagnosis Nutritional counseling documented in this encounter Care Teams Flute Grinder Relationship Specialty Start Date End Date Juan Smith MD PCP - General Family Medicine 05/10/16 09/02/21 documented as of this encounter
--- OUTSIDE RECORDS SUMMARY | 2024-02-24 15:04 | XMS_ITS | Encounter Summary ---
Author Organization [facility] [place] [address] Care Team Providers Care Academic Affairs Director Name Role Phone Chantell Sharma APRN Primary Care Provider [phone] Reason for Visit * Reason Comments Other Encounter Details Date Type Department Care Team (Late st Contact Info) Description 08/07/2013 [place] [address] Lea Abdullahi MD [facility] [place] [address] Social History Tobacco Use Types Packs/Day Years [...] you get info on this patient from [facility] yet in the mail? documented in this encounter Plan of Treatment Upcoming Encounters Date Type Department Care Team (Late st Contact Info) Description 03/13/2024 9:45 AM EDT Office Visit Dermatology at [place] [address] [facility] [place] [address] Emiliano Salinas MD [address], [place] [address] documented as of this encounter Visit Diagnoses Not on filedocumented in this encounter Care Teams Academic Affairs Director Relationship Specialty Start Date End Date Chantell Sharma APRN PCP - General 07/09/13 05/09/16 documented as of this encounter
--- OUTSIDE RECORDS SUMMARY | 2024-02-24 15:04 | XMS_ITS | Encounter Summary ---
[place] [address] Care Team Providers Care Latcher Name Role Phone Juan Smith MD Primary Care Provider [phone] Encounter Details Date Type Department Care Team (Latest Contact Info) Description 02/13/2019 10:20 AM EDT Laboratory Appointment Lab [address] [place] [address] Familial hypercholesterolemia Social History Tobacco Use Types [...] 9:45 AM EDT Office Visit Dermatology at [place] [address] [place] [address] Emiliano Salinas MD [address], BAKARI [place] [address] documented as of this encounter Procedures Procedure [...] 9:49 AM EDT) Cholesterol, Total 324 mg/dL [facility] Comment: Lower Risk: <200 mg/dL Average Risk: 200-239 mg/dL Higher Risk: >gm=196 mg/dL Triglyceride 183 mg/dL [facility] Comment: Average Risk/Lower Risk: <150 mg/dL Borderline High Risk: 150-199 mg/dL High Risk: 200-499 mg/dL Very High Risk: >qq=038 mg/dL HDL Cholesterol 68 mg/dL [facility] Comment: Males: ?? Higher Risk: <40 mg/dL Females: ?? HIgher Risk: <50 mg/dL LDL Cholesterol 219 mg/dL [facility] Comment: Lowest Risk: <100 mg/dL Lower Risk: 100-129 mg/dL Borderline High Risk: 130-159 mg/dL High Risk: 160-189 mg/dL Very High Risk: >wo=828 mg/dL Cholesterol/HDL Ratio 4.8 ratio [facility] Lipid Interpretation See Note [facility] Comment: Lipid management should be guided by a patient? s ASCVD risk, goals and preferences. ACC/AHA Guidelines recommend high intensity statin if clinical ASCVD or LDL greater than or equal to 190 mg/dL. http://Evident Softwareurl.com/SWK-QHD-Vcdubmrse Adults aged 40-75 with LDL 70-189 mg/dL should have their 10 year ASCVD risk estimated with the ACC/AHA ASCVD risk estimator binding http://tools.acc.org/JTNUX-Xjoe-Wsvoqpfoh/ Statin should be discussed if risk greater [...] Montalvo MD CHEMISTRY ORDERABLES Performing Organization Address [facility] Co de Phone Number [facility] [place] [address] * Lipoprotein A (02/13/2019 9:49 AM EDT) Lipoprotein (a) 6 <=30 mg/dL [facility] Comment: Test Performed by: [facility] [place] [address] Upholstery Auto Trimmer: Kyle Michel M.D. Ph.D.; CLIA# [id number] Blood specimen (specimen) 02/13/2019 9:49 AM EDT 02/13/2019 3:06 PM EDT Narrative Resulting Agency Comment Spec In Lab Tory Montalvo MD LAB SEND OUT ORDERAB LES Performing Organization Address [facility] Co de Phone Number [facility] [place] [address] * (ABNORMAL) Comprehensive metabolic panel (non-fasting) (02/13/2019 9:49 AM EDT) Glucose 108 65 - 199 mg/dL [facility] Comment:Diabetes: >=200 mg/d L plus symptoms Blood Urea Nitrogen 19(H) 8 - 18 mg/dL [facility] Creatinine 0.79 0.70 - 1.20 mg/dL [facility] Sodium 142 135 - 145 mmol/L [facility] Potassium 3.6 3.5 - 5.0 mmol/L [facility] Comment: Please note: ??Patients with WBC >100,000 may have falsely elevated Potassium levels. ??For accurate Potassium quantification in these patients send serum separator tube (gold top) for subsequent determinations. ??Contact the Clinical Chemistry Laboratory if there are any questions. Chloride 101 98 - 107 mmol/L [facility] Carbon Dioxide 28 22 - 31 mmol/L [facility] Anion Gap 13 5 - 15 mmol/L [facility] Calcium 9.8 8.5 - 10.5 mg/dL [facility] Protein, Total 7.5 6.1 - 8.0 gm/dL [facility] Albumin 4.8 3.2 - 5.2 gm/dL [facility] Aspartate Aminotransferase 22 0 - 30 unit/L [facility] Alanine Aminotransferase 24 0 - 30 unit/L [facility] Alkaline Phosphatase 64 35 - 105 unit/L [facility] Bilirubin, Total 0.4 0.2 - 1.3 mg/dL [facility] Est Glomerular Filtration Rate 76 >=60 mL/min/1. 73 m?? [facility] Comment: The eGFR was calculated using the CKD-EPI equation. As with all creatinine based estimates of kidney function, eGFR values calculated with the CKD-EPI equation are not accurate in patients with acute kidney failure, extremes of body mass or the acutely ill. http://Synchris/DHnkf eGFR 88 >=60 mL/min/1. 73 m?? [facility] Comment: The eGFR was calculated using the CKD-EPI equation. As with all creatinine based estimates of kidney function, eGFR values calculated with the CKD-EPI equation are not accurate in patients with acute kidney failure, extremes of body mass or the acutely ill. http://Synchris/DHnkf Blood specimen (specimen) 02/13/2019 9:49 AM EDT 02/13/2019 9:59 AM EDT Narrative Resulting Agency Comment Spec In Lab Tory Montalvo MD CHEMISTRY ORDERABLES Performing Organization Address [facility] Co de Phone Number [facility] [place] [address] * TSH (02/13/2019 9:49 AM EDT) Thyroid Stimulating Hormone 2.34 0.27 - 4.20 mcIU/mL [facility] Blood specimen (specimen) 02/13/2019 9:49 AM EDT 02/13/2019 9:59 AM EDT Narrative Resulting Agency Comment Spec In Lab Tory Montalvo MD CHEMISTRY ORDERABLES Performing Organization Address [facility] Co de Phone Number [facility] [place] [address] documented in this encounter Visit Diagnoses Diagnosis Familial hypercholesterolemia Pure hypercholesterolemia documented in this encounter Care Teams Latcher Relationship Specialty Start Date End Date Juan Smith MD PCP - General Family Medicine 05/10/16 09/02/21 documented as of this encounter
[2024-02-24 15:05] LABS: ESR 24 mm/hr (0-30)
--- OUTSIDE RECORDS SUMMARY | 2024-02-24 15:05 | XMS_ITS | Encounter Summary ---
[place] [address] Care Team Providers Care Grocery Caddy Name Role Phone Gareth Gramajo MD Primary Care Provider + Reason for Visit * Reason Onset Date Comments Follow-up 12/10/2011 Encounter Details Date Type Department Care Team (Late st Contact Info) Description 12/10/2011 Telephone Obstetrics [place] [address] Lien Patel, RN Follow-up Social History Tobacco [...] AM EDT Office Visit Dermatology at [address] [place] [address] Emiliano Salinas MD [address] [place] [address] RD, [place] [address] documented as of this encounter Visit Diagnoses Not on filedocumented in this encounter Care Teams Grocery Caddy Relationship Specialty Start Date End Date Gareth Gramajo MD [address] [place] [address] PCP - General 04/24/11 07/08/13 documented as of this encounter
--- OUTSIDE RECORDS SUMMARY | 2024-02-24 15:05 | XMS_ITS | Encounter Summary ---
Author Organization [facility] [place] [address] Care Team Providers Care Customer Service Professional Name Role Phone Gareth Gramajo MD Primary Care Provider + Reason for Visit * Reason Comments Procedure UDS Encounter Details Date Type Department Care Team (Latest Contact Info) Description 01/08/2012 8:15 AM EDT Procedure visit Obstetrics [place] [address] Juan Alberto Harrell MD [facility] DR OBSTETRICS [place] [address] Urinary incontinence, urge (Primary Dx) Discharge Disposition: [...] Female Pelvic Medicine and Reconstructive Surgery @ [facility] Urodynamic Procedure Note Patient name: Yessenia [...] CYSTOMETROGRAM: Filling was performed via a 7 Uzbek T-DOC catheter in the sitting position at a rate of 50cc/min. A 7 Uzbek T-DOC catheter was placed in the rectum [...] 9:45 AM EDT Office Visit Dermatology at [place] [address] [place] [address] Emiliano Salinas MD [address] [facility], [place]IND[place] [address] documented as of this encounter Visit Diagnoses Diagnosis Urinary incontinence, urge- Primary Urge incontinence documented in this encounter Care Teams Customer Service Professional Relationship Specialty Start Date End Date Gareth Gramajo MD [address] [place] [address] PCP - General 04/24/11 07/08/13 documented as of this encounter
--- OUTSIDE RECORDS SUMMARY | 2024-02-24 15:05 | XMS_ITS | Encounter Summary ---
Author Organization [facility] [place] [address] Care Team Providers Care Bobbin Marker Name Role Phone Franca Charles MD Primary Care Provider [phone] Reason for Visit * Reason Onset Date Comments Anxiety 09/25/2010 Encounter Details Date Type Department Care Team (Late st Contact Info) Description 09/25/2010 [place] [address] Liam Lee MD [facility] DR SLE[place] [address] Anxiety Social History Tobacco Use Types Packs/Day [...] reviewed her compliance card data download from [employer] for dates of 08/10/10 to 09/20/10, which [...] 9:45 AM EDT Office Visit Dermatology at [place] [address] [place] [address] Emiliano Salinas MD [address], [place] [address] documented as of this encounter Visit Diagnoses Not on filedocumented in this encounter Care Teams Bobbin Marker Relationship Specialty Start Date End Date Franca Charles MD [address] [place] [address] PCP - General 05/02/10 01/30/11 documented as of this encounter
--- OUTSIDE RECORDS SUMMARY | 2024-02-24 15:05 | XMS_ITS | Encounter Summary ---
Author Organization [facility] [place] [address] Care Team Providers Care Outreach Consultant Name Role Phone Gareth Gramajo MD Primary Care Provider + Encounter Details Date Type Department Care Team (Late st Contact Info) Description 12/10/2011 Notes Only Obstetrics [place] [address] Lien Patel RN Social History Tobacco Use [...] 9:45 AM EDT Office Visit Dermatology at [place] [address] [place] [address] Eimliano Salinas MD [address] [facility], [place] [address] documented as of this encounter Visit Diagnoses Not on filedocumented in this encounter Care Teams Outreach Consultant Relationship Specialty Start Date End Date Gareth Gramajo MD [address] [place] [address] PCP - General 04/24/11 07/08/13 documented as of this encounter
--- OUTSIDE RECORDS SUMMARY | 2024-02-24 15:05 | XMS_ITS | Encounter Summary ---
Author Organization [facility] [place] [address] Care Team Providers Care Bowling Alley Operator Name Role Phone Gareth Gramajo MD Primary Care Provider + Encounter Details Date Type Department Care Team (Late st Contact Info) Description 01/25/2012 Orders [place] [address] Satya James MD [address] [place] [address] Bilateral knee pain (Primary Dx) Social History [...] 9:45 AM EDT Office Visit Dermatology at [place] [address] [place] [address] Emiliano Salinas MD [address], [place] [address] documented as of this encounter Visit Diagnoses Diagnosis Bilateral knee pain- Primary Pain in joint, lower leg documented in this encounter Care Teams Bowling Alley Operator Relationship Specialty Start Date End Date Gareth Gramajo MD [address] [place] [address] PCP - General 04/24/11 07/08/13 documented as of this encounter
--- OUTSIDE RECORDS SUMMARY | 2024-02-24 15:05 | XMS_ITS | Encounter Summary ---
Author Organization [facility] [place] [address] Care Team Providers Care Sample Body Builder Name Role Phone Franca Charles MD Primary Care Provider [phone] Reason for Visit * Reason Comments Obstructive Sleep Apnea Encounter Details Date Type Department Care Team (Late st Contact Info) Description 10/17/2010 3:05 PM EDT Office Visit Sleep Medicine [place] [id number] Gaby Guerrero [place] [address] THERESA (obstructive sleep apnea) (Primary Dx) Social [...] subjective improvements in daytime symptoms and sleep shinto since starting CPAP. The smart card data [...] EDT Office Visit Dermatology at [place] [address] [place] [address] Emiliano Salinas MD [address] [facility], [place] [address] documented as of this encounter Visit Diagnoses Diagnosis THERESA (obstructive sleep apnea)- Primary Obstructive sleep apnea (adult) (pediatric) documented in this encounter Care Teams Sample Body Builder Relationship Specialty Start Date End Date Franca Charles MD [address] [place] [address] PCP - General 05/02/10 01/30/11 documented as of this encounter
--- OUTSIDE RECORDS SUMMARY | 2024-02-24 15:05 | XMS_ITS | Encounter Summary ---
Author Organization [facility] [place] [address] Care Team Providers Care Patient Attendant Name Role Phone Franca Charles MD Primary Care Provider [phone] Encounter Details Date Type Department Care Team (Late st Contact Info) Description 07/09/2010 8:00 PM EST Procedure [place] [address] Leisa Lewis MD [facility] [place] [address] Social History Tobacco Use Types Packs/Day Years [...] AM EDT Office Visit Dermatology at [place] [address] [place] [address] Emiliano Salinas MD [address], [place]AR[place] [address] documented as of this encounter Visit Diagnoses Not on filedocumented in this encounter Care Teams Patient Attendant Relationship Specialty Start Date End Date Franca Charles MD [address] [place] [address] PCP - General 05/02/10 01/30/11 documented as of this encounter
--- OUTSIDE RECORDS SUMMARY | 2024-02-24 15:05 | XMS_ITS | Encounter Summary ---
Author Organization [facility] [place] [address] Care Team Providers Care Deputy Prosecuting Attorney Name Role Phone Franca Charles MD Primary Care Provider [phone] Encounter Details Date Type Department Care Team (Late st Contact Info) Description 07/16/2010 8:00 PM EST [place] [address] Gelacio Blevins MD [facility] [place] [address] Social History Tobacco Use Types Packs/Day Years [...] 9:45 AM EDT Office Visit Dermatology at [place] [address] [place] [address] Emiliano Salinas MD [address], [place] [address] documented as of this encounter Visit Diagnoses Not on filedocumented in this encounter Care Teams Deputy Prosecuting Attorney Relationship Specialty Start Date End Date Franca Charles MD [address] [place] [address] PCP - General 05/02/10 01/30/11 documented as of this encounter
--- OUTSIDE RECORDS SUMMARY | 2024-02-24 15:05 | XMS_ITS | Encounter Summary ---
Author Organization [facility] [place] [address] Care Team Providers Care Bottle Line Worker Name Role Phone Gareth Gramajo MD Primary Care Provider + Reason for Visit * Reason Comments Skin Check Encounter Details Date Type Department Care Team (Late st Contact Info) Description 04/24/2011 8:45 AM EST Office Visit Dermatology [address] [facility] [facility] [address] [place], [place] [id number] Emiliano Salinas MD [address], BAKAR[place] [address] Androgenetic alopecia (Primary Dx); Rosacea; Solar lentigo [...] information for Aide Hassan at [employer] in [place] to help Yessenia learn of new techniques to mask her hair thinning. Mild solar lentigos, mild photo aging. a. At patient request she was given refills for Tretinoin 0.025% Cream applying this on a q. h.s. basis one-half hour after washing, 45gm dispensed with p.r.n. refills. This was called into [facility] in [facility]. Benign skin examination. a. Patient reassured about benign skin examination. b. RTC p.r.n. Rosacea. a. Quiescent. documented in this encounter Plan of Treatment Upcoming Encounters Date Type Department Care Team (Late st Contact Info) Description 03/13/2024 9:45 AM EDT Office Visit Dermatology at [place] [address] [place] [address] Emiliano Salinas MD [address], BAKAR[place] [address] documented as of this encounter Visit Diagnoses Diagnosis Androgenetic alopecia- Primary Other alopecia Rosacea Solar lentigo Other dyschromia documented in this encounter Care Teams Bottle Line Worker Relationship Specialty Start Date End Date Garteh Gramajo MD [address] [place] [address] PCP - General 04/24/11 07/08/13 documented as of this encounter
--- OUTSIDE RECORDS SUMMARY | 2024-02-24 15:05 | XMS_ITS | Encounter Summary ---
Author Organization [facility] [place] [address] Care Team Providers Care Assistant Softball Coach Name Role Phone Franca Charles MD Primary Care Provider [phone] Encounter Details Date Type Department Care Team (Late st Contact Info) Description 08/28/2010 11:00 AM EDT [place] [address] Venr Salmeron MD [facility] [address] [place] [address] Discharge Disposition: Home Social History Tobacco Use [...] EDT Office Visit Dermatology at [place] [address] [place] [address] Emiliano Salinas MD [address], [place] [address] documented as of this encounter Visit Diagnoses Not on filedocumented in this encounter Care Teams Assistant Softball Coach Relationship Specialty Start Date End Date Franca Charles MD [address] [place] [address] PCP - General 05/02/10 01/30/11 documented as of this encounter
--- OUTSIDE RECORDS SUMMARY | 2024-02-24 15:05 | XMS_ITS | Encounter Summary ---
Author Organization [facility] [place] [address] Care Team Providers Care Director Of Environmental Services Name Role Phone Gareth Gramajo MD Primary Care Provider + Encounter Details Date Type Department Care Team (Late st Contact Info) Description 01/24/2012 Orders Only Obstetrics [place] [phone] Lien Patel RN Urge incontinence (Primary Dx) [...] 9:45 AM EDT Office Visit Dermatology at [place] [address] [place] [address] Emiliano Salinas MD [address], [place] [address] documented as of this encounter Visit Diagnoses Diagnosis Urge incontinence- Primary documented in this encounter Care Teams Director Of Environmental Services Relationship Specialty Start Date End Date Gareth Gramajo MD [address] [place] [address] PCP - General 04/24/11 07/08/13 documented as of this encounter
--- OUTSIDE RECORDS SUMMARY | 2024-02-24 15:05 | XMS_ITS | Encounter Summary ---
Author Organization [facility] [place] [address] Care Team Providers Care Paperboard Boxes Estimator Name Role Phone Gareth Gramajo MD Primary Care Provider + Encounter Details Date Type Department Care Team (Late st Contact Info) Description 12/19/2011 Telephone Obstetrics [place] [phone] Tenzin Harrell MD [facility] OBSTETRICS [place] [address] Social History Tobacco Use Types Packs/Day Years [...] 9:45 AM EDT Office Visit Dermatology at [place] [address] [facility] [place] [address] Emiliano Salinas MD [address], [place]AR[place] [address] documented as of this encounter Visit Diagnoses Diagnosis Urinary incontinence, mixed- Primary Mixed incontinence urge and stress (male)(female) documented in this encounter Care Teams Paperboard Boxes Estimator Relationship Specialty Start Date End Date Gareth Gramajo MD [address] [place] [address] PCP - General 04/24/11 07/08/13 documented as of this encounter
--- OUTSIDE RECORDS SUMMARY | 2024-02-24 15:05 | XMS_ITS | Encounter Summary ---
Author Organization [facility] [place] [address] Care Team Providers Care Superintendent Meters Name Role Phone Franca Charles MD Primary Care Provider [phone] Encounter Details Date Type Department Care Team (Late st Contact Info) Description 07/17/2010 8:30 AM EST [place] [address] Gelacio Blevins MD [facility] [place] [address] Social History Tobacco Use Types Packs/Day Years [...] 9:45 AM EDT Office Visit Dermatology at [place] [address] [place] [address] Emiliano Salinas MD [address], [place] [address] documented as of this encounter Visit Diagnoses Not on filedocumented in this encounter Care Teams Superintendent Meters Relationship Specialty Start Date End Date Franca Charles MD [address] [place] [address] PCP - General 05/02/10 01/30/11 documented as of this encounter
--- OUTSIDE RECORDS SUMMARY | 2024-02-24 15:05 | XMS_ITS | Encounter Summary ---
Author Organization [facility] [place] [address] Care Team Providers Care Director Music Name Role Phone Gareth Gramajo MD Primary Care Provider + Encounter Details Date Type Department Care Team (Late st Contact Info) Description 07/26/2011 [place] [address] Sunita Mcknight MD [facility] [place] [address] THERESA (obstructive sleep apnea) (Primary Dx) Social [...] 9:45 AM EDT Office Visit Dermatology at [place] [address] [place] [address] Emiliano Salinas MD [address], BAKAR[place] [address] documented as of this encounter Visit Diagnoses Diagnosis THERESA (obstructive sleep apnea)- Primary Obstructive sleep apnea (adult) (pediatric) documented in this encounter Care Teams Director Music Relationship Specialty Start Date End Date Gareth Gramajo MD [address] [place] [address] PCP - General 04/24/11 07/08/13 documented as of this encounter
--- OUTSIDE RECORDS SUMMARY | 2024-02-24 15:05 | XMS_ITS | Encounter Summary ---
[place] [address] Care Team Providers Care Pals Nurse Name Role Phone Franca Charles MD Primary Care Provider [phone] Reason for Visit * Reason Onset Date Comments Other 12/28/2010 sick returning [place] Encounter Details Date Type Department Care Team (Late st Contact Info) Description 12/28/2010 Telephone [place] [phone] Danika Chin RN Other (sick returning traveler) [...] of cipro for diarrhea after trip to [facility] [place] [place]. See note on 12/25/2010. She no longer has diarrhea, now reporting constipation and stomach cramping. Remains afebrile; describes extreme fatigue. Contacted [facility] lab for results of stool testing; giardia [...] 9:45 AM EDT Office Visit Dermatology at [place] [address] [place] [address] Emiliano Salinas MD [address], [place] [address] documented as of this encounter Visit Diagnoses Not on filedocumented in this encounter Care Teams Pals Nurse Relationship Specialty Start Date End Date Franca Charles MD [address] [place] [address] PCP - General 05/02/10 01/30/11 documented as of this encounter
--- OUTSIDE RECORDS SUMMARY | 2024-02-24 15:05 | XMS_ITS | Patient Health Record ---
Author Organization [facility] Address [address] [place] [address] Care Team Providers Care Type Soldering Machine Tender Name Role Phone Sukhjinder Stewart Unavailable JEFFREY [...] joint of right hand (M18.11) Active confirmed [id number] PLAN OF TREATMENT No Information Insurance Providers Payer Name Payer Address Payer Phone Subscriber Number Group Number Insured Name Patient Relationship to Insured Coverage Start Date Coverage End Date MEDICARE [address] [place], [place] [id number] SUNNY ESPARZA Self - patient is the insured -[facility] [address] [place] [address] [phone] SUNNY ESPARZA Self - patient is the insured SELF PAY AFTER [place] [address] [address] SUNNY ESPARZA Self - patient is the insured MEDICAL (GENERAL) HISTORY Medical History History ICD Code Biceps tendinitis, right Muscle cramps GERD Surgical History Surgery Date(Month/Year)
--- OUTSIDE RECORDS SUMMARY | 2024-02-24 15:05 | XMS_ITS | Encounter Summary ---
Author Organization [facility] [place] [address] Care Team Providers Care Track Dresser Name Role Phone Unavailable Primary Care Provider Unavailabl e Encounter Details Date Type Department Care Team (Late st Contact Info) Description 04/19/2010 3:15 PM EST Office Visit Dermatology [address] [place] [address] [address] [place] [address] Emiliano Salinas MD [address] [facility] [place] [address] Social History Tobacco Use Types Packs/Day Years [...] 9:45 AM EDT Office Visit Dermatology at [place] [address] [place] [address] Emiliano Salnias MD [address] [facility], [place] [address] documented as of this encounter Visit Diagnoses Not on filedocumented in this encounter
--- OUTSIDE RECORDS SUMMARY | 2024-02-24 15:05 | XMS_ITS | Encounter Summary ---
Author Organization [facility] [place] [address] Care Team Providers Care Airplane First Officer Name Role Phone Franca Charles MD Primary Care Provider [phone] Encounter Details Date Type Department Care Team (Late st Contact Info) Description 07/10/2010 8:30 AM EST [place] [address] Leisa Lewis MD [facility] [place] [address] Social History Tobacco Use Types Packs/Day Years [...] 9:45 AM EDT Office Visit Dermatology at [place] [address] [place] [address] Emiliano Salinas MD [address], [place] [address] documented as of this encounter Visit Diagnoses Not on filedocumented in this encounter Care Teams Airplane First Officer Relationship Specialty Start Date End Date Franca Charles MD [address] [place] [address] PCP - General 05/02/10 01/30/11 documented as of this encounter
--- OUTSIDE RECORDS SUMMARY | 2024-02-24 15:05 | XMS_ITS | Encounter Summary ---
Author Organization [facility] [place] [address] Care Team Providers Care Tank Charger Name Role Phone Franca Charles MD Primary Care Provider [phone] Encounter Details Date Type Department Care Team (Late st Contact Info) Description 06/29/2010 12:35 PM EST Office Visit [place] [address] Leisa Lewis MD [facility] [place] [address] Social History Tobacco Use Types Packs/Day Years [...] 9:45 AM EDT Office Visit Dermatology at [place] [address] [place] [address] Emiliano Salinas MD [address], [place] [address] documented as of this encounter Visit Diagnoses Not on filedocumented in this encounter Care Teams Tank Charger Relationship Specialty Start Date End Date Franca Charles MD [address] [place] [address] PCP - General 05/02/10 01/30/11 documented as of this encounter
--- OUTSIDE RECORDS SUMMARY | 2024-02-24 15:05 | XMS_ITS | Encounter Summary ---
Author Organization [facility] [place] [address] Care Team Providers Care Veneer Jointer Name Role Phone Franca Charles MD Primary Care Provider [phone] Encounter Details Date Type Department Care Team (Late st Contact Info) Description 12/25/2010 Orders [place] [address] Mariana Hernandez MD [facility] [place] [address] History of foreign travel (Primary Dx) Social [...] 60 y.o. female. History of travel to [place] on 11/27/2010 for 3 weeks while traveling [...] Dr. Hernandez; Pt agrees to go to [facility] for stool studies to include giardia, crypto, O&P, and stool cultures. Will e-fax another script for Cipro 500 mg BID for three days to [facility] in [facility]. Pt. States understanding she needs [...] EDT Office Visit Dermatology at [place] [address] [facility] [address] [place] [address] Emiliano Salinas MD [address], [place] [address] documented as of this encounter Visit Diagnoses Diagnosis History of foreign travel- Primary Other specified conditions influencing health status documented in this encounter Care Teams Veneer Jointer Relationship Specialty Start Date End Date Franca Charles MD [address] [place] [address] PCP - General 05/02/10 01/30/11 documented as of this encounter
--- OUTSIDE RECORDS SUMMARY | 2024-02-24 15:05 | XMS_ITS | Encounter Summary ---
[place] [address] Care Team Providers Care Service Provider Name Role Phone Gareth Gramajo MD Primary Care Provider + Encounter Details Date Type Department Care Team (Late st Contact Info) Description 01/10/2012 Orders Only Obstetrics [place] [phone] Lien Patel, RN Social History Tobacco Use [...] AM EDT Office Visit Dermatology at [place] [address] [place] [address] Emiliano Salinas MD [address], [place] [address] documented as of this encounter Visit Diagnoses Not on filedocumented in this encounter Care Teams Service Provider Relationship Specialty Start Date End Date Gareth Gramajo MD [address] [place] [address] PCP - General 04/24/11 07/08/13 documented as of this encounter
--- OUTSIDE RECORDS SUMMARY | 2024-02-24 15:05 | XMS_ITS | Encounter Summary ---
Author Organization [facility] Address [facility] [place] [address] Care Team Providers Care Dietetic Tech Name Role Phone Gareth Cunningham MD Primary Care Provider + Reason for Visit * Reason Comments Establish Care incont s/p repair Encounter Details Date Type Department Care Team (Late st Contact Info) Description 11/22/2011 9:15 AM EDT Office Visit Obstetrics [place] [address] Juan Alberto Harrell MD [facility] DR OBSTETRICS [place] [address] Urinary incontinence (Primary Dx) Discharge Disposition: Home [...] Female Pelvic Medicine and Reconstructive Surgery @ [facility] Patient Name: Yessenia Luong Patient Primary [...] smear: S/p hysterectomy Last mammogram: Annually in [facility] Colonoscopy: Up to date Bone density: Up [...] MAGNESIUM ORAL) ??? Mometasone (NASONEX) 50 mcg/Actuation [place] 2 [place](s) each nostril, Nasal, Twice daily ??? albuterol [...] test (empty supine): negative External Genitalia: Vulva, [place]'s and [place] glands normal, urethra without tenderness [...] 9:45 AM EDT Office Visit Dermatology at [place] [address] [place] [address] Emiliano Salinas MD [address], [place]AKAR[place] [address] documented as of this encounter Procedures Procedure Name Priority Date/Time Associated Diagnosis Comments BLADDER SCANNER Routine 11/22/2011 Urinary incontinence POCT URINE DIPSTICK Routine 11/22/2011 Urinary incontinence documented in this encounter Results * Bladder Scanner (11/22/2011) Scan 6 Juan Alberto Harrell MD URO PROC W/O RFL ORD ERABLES * POCT urine dipstick (11/22/2011) Pathologist [facility] POC Sp [place] 1.01 1.002 - 1.030 POC pH, UA [...] incontinence documented in this encounter Care Teams Dietetic Tech Relationship Specialty Start Date End Date Gareth Cunningham MD [address] [place] [address] PCP - General 04/24/11 07/08/13 documented as of this encounter
--- OUTSIDE RECORDS SUMMARY | 2024-02-24 15:05 | XMS_ITS | Encounter Summary ---
[place] [address] Care Team Providers Care Stitch Rubber Name Role Phone Franca Charles MD Primary Care Provider [phone] Reason for Visit * Reason Comments Travel Consult Encounter Details Date Type Department Care Team (Late st Contact Info) Description 10/17/2010 2:00 PM EDT [place] [phone] Danika Chin RN Travel foreign (Primary Dx); [...] countries (list from first to last): [place], [facility], [facility], [place] Departure date: 11/27/2010 Length of trip 3 [...] other STD's, TB and Health Insurance cove [email or web address]. Discussed food and water precautions and patient [...] or get this done through their primary childcare teacher. Patient advised to call travel clinic if [...] Discussed actions to take if exposure occurs [facility]. Meningococcal Yellow Fever Pneumococcal 09/15/2004 PPD Skin test ID ATTENDING I agree with this plan to prepare this patient for travel to [place]. documented in this encounter Plan of Treatment Upcoming Encounters Date Type Department Care Team (Late st Contact Info) Description 03/13/2024 9:45 AM EDT Office Visit Dermatology at [place] [address] [facility] [place] [address] Emiliano Salinas MD [address], [place] [address] documented as of this encounter Visit Diagnoses Diagnosis Travel foreign- Primary Other specified conditions influencing health status Foreign travel Other specified conditions influencing health status documented in this encounter Care Teams Stitch Rubber Relationship Specialty Start Date End Date Franca Charles MD [address] [place] [address] PCP - General 05/02/10 01/30/11 documented as of this encounter
--- OUTSIDE RECORDS SUMMARY | 2024-02-24 15:05 | XMS_ITS | Encounter Summary ---
[place] [address] Care Team Providers Care Glass Bulb Silverer Name Role Phone Franca Charles MD Primary Care Provider [phone] Reason for Visit * Reason Onset Date Comments Other 01/01/2011 travel follow-up Encounter Details Date Type Department Care Team (Late st Contact Info) Description 01/01/2011 [place] [id number] Danika Chin RN Other (travel follow-up) Social [...] fatigue, sleeping since back from trip to [place]; headache, lower stomach pain with constipation, bad breath; denies fever or other symptoms Did not seek care from PCP as instructed during phone conversation of 12/28/2010. Calling today to request another course of Cipro. A&P Yessenia traveled to [place] 11/27/2010 for three weeks, returning with diarrhea, [...] AM EDT Office Visit Dermatology at [place] [address] [place] [address] Emiliano Salinas MD [address], [place] [address] documented as of this encounter Visit Diagnoses Not on filedocumented in this encounter Care Teams Glass Bulb Silverer Relationship Specialty Start Date End Date Franca Charles MD [address] [place] [address] PCP - General 05/02/10 01/30/11 documented as of this encounter
--- OUTSIDE RECORDS SUMMARY | 2024-02-24 15:05 | XMS_ITS | Encounter Summary ---
Author Organization [facility] Address [facility] [place] [address] Care Team Providers Care Key Carrier Name Role Phone Gareth Cunningham MD Primary Care Provider + Reason for Visit * Reason Comments Obstructive Sleep Apnea Encounter Details Date Type Department Care Team (Late st Contact Info) Description 07/12/2011 8:35 AM EST Office Visit [place] [address] Sunita Mcknight MD [facility] [place] [address] THERESA (obstructive sleep apnea) (Primary Dx) Social [...] shifts in position Aerophagia: None Daytime Symptoms: [place]: not done [place]: unrefreshed, feels groggy. [...] Disp: , Rfl: ;Mometasone (NASONEX) 50 mcg/Actuation [place], 2 [place](s) each nostril, Nasal, Twice daily, Disp: , [...] drowsy dont drive, if drowsy while driving cotton puller and take a nap. 4. Dental [...] 9:45 AM EDT Office Visit Dermatology at [place] [address] [place] [address] Emiliano Salinas MD [address], [place] [address] documented as of this encounter Visit Diagnoses Diagnosis THERESA (obstructive sleep apnea)- Primary Obstructive sleep apnea (adult) (pediatric) documented in this encounter Care Teams Key Carrier Relationship Specialty Start Date End Date Gareth Cunningham MD [address] [place] [address] PCP - General 04/24/11 07/08/13 documented as of this encounter
--- OUTSIDE RECORDS SUMMARY | 2024-02-24 15:05 | XMS_ITS | Encounter Summary ---
Author Organization [facility] [place] [address] Care Team Providers Care Central Office Equipment Engineer Name Role Phone Franca Charles MD Primary Care Provider [phone] Encounter Details Date Type Department Care Team (Late st Contact Info) Description 08/28/2010 10:30 AM EDT [place] [address] Vern Salmeron MD [facility] [address] [place] [address] Discharge Disposition: Home Social History Tobacco Use [...] 9:45 AM EDT Office Visit Dermatology at [place] [address] [place] [address] Emiliano Salinas MD [address], [place] [address] documented as of this encounter Visit Diagnoses Not on filedocumented in this encounter Care Teams Central Office Equipment Engineer Relationship Specialty Start Date End Date Franca Charles MD [address] [place] [address] PCP - General 05/02/10 01/30/11 documented as of this encounter
--- OUTSIDE RECORDS SUMMARY | 2024-02-24 15:05 | XMS_ITS | Encounter Summary ---
Author Organization [facility] [place] [address] Care Team Providers Care Title Curator Name Role Phone Franca Charles MD Primary Care Provider [phone] Encounter Details Date Type Department Care Team (Late st Contact Info) Description 06/29/2010 12:40 PM EST Office [place] [address] Liam Lee MD [facility] [place] [address] Social History Tobacco Use Types Packs/Day Years [...] 9:45 AM EDT Office Visit Dermatology at [place] [address] [place] [phone] Emiliano Salinas MD [address], [place] [address] documented as of this encounter Visit Diagnoses Not on filedocumented in this encounter Care Teams Title Curator Relationship Specialty Start Date End Date Franca Charles MD [address] [place] [address] PCP - General 05/02/10 01/30/11 documented as of this encounter
--- OUTSIDE RECORDS SUMMARY | 2024-02-24 15:05 | XMS_ITS | Encounter Summary ---
[place] [address] Care Team Providers Care Douper Name Role Phone Gareth Gramajo MD Primary Care Provider + Reason for Visit * Reason Onset Date Comments Follow-up 01/25/2012 Encounter Details Date Type Department Care Team ([facility] Contact Info) Description 01/25/2012 Telephone [place]stetrics [place] [phone] Lien Patel, RN Follow-up Social History Tobacco [...] 9:45 AM EDT Office Visit Dermatology at [place] [address] [place] [address] Emiliano Salinas MD [address], BAKAR[place] [address] documented as of this encounter Visit Diagnoses Not on filedocumented in this encounter Care Teams Douper Relationship Specialty Start Date End Date Gareth Gramajo MD [address] [place] [address] PCP - General 04/24/11 07/08/13 documented as of this encounter
[2024-02-24 15:34] LABS: Anion Gap 8.3 mmol/L (3-11); BUN 17 mg/dL (7-18); CO2 26.7 mmol/L (21.0-32.0); Calcium 10.2 mg/dL (8.5-10.1); Chloride 95 mmol/L (98-107); Estimated GFR 58.75 (mL/min/1.73m2); Glucose 109 mg/dL (74-106); Potassium 3.9 mmol/L (3.5-5.1); Sodium 130 mmol/L (136-145)
[2024-02-24 15:36] LABS: C-Reactive Protein < 0.50 mg/dL (<or=0.5)
[2024-02-24 15:38] LABS: Creatine Kinase 39 U/L (26-192)
[2024-02-24 21:49] LABS: Rheumatoid Factor <8.6 IU/mL (<12.0)
[2024-02-25 09:41] LABS: Cyclic Citrullinated Peptide <2.5 U/mL (<5.0)
[2024-02-25 09:48] LABS: Lyme Ab w Rflx to Lyme Confirm Negative (Negative)
[2024-02-25 14:12] LABS: ANA Interpretation Negative (Negative)
== END 2024-02-24 14:56 | disposition home or self-care (01) ==
LOC: LBO 14:55
PROVIDERS: PCP Student in an Organized Health Care Education/Training Program; Visit Provider Nurse Practitioner
DX: R79.9 Abnormal finding of blood chemistry, unspecified (principal); M25.50 Pain in unspecified joint; M79.10 Myalgia, unspecified site
CPT/HCPCS: 36415; 80048; 82550; 85652; 86200; 86038; 86140; 86431; 86618

== ENCOUNTER 2024-03-02 11:10 | Outpatient (CLI) | payer MEDICARE, SELFPAY ==
[2024-03-02 11:36] LABS: BUN 17 mg/dL (7-18); CREATININE 1.1 mg/dL (0.55-1.02); Calcium 9.7 mg/dL (8.5-10.1); Chloride 101 mmol/L (98-107); Glucose 102 mg/dL (74-106); Potassium 3.4 mmol/L (3.5-5.1); Sodium 139 mmol/L (136-145)
== END 2024-03-02 11:11 | disposition home or self-care (01) ==
LOC: LBO 11:11
PROVIDERS: PCP Student in an Organized Health Care Education/Training Program; Visit Provider Family Medicine
DX: E87.1 Hypo-osmolality and hyponatremia (principal)
CPT/HCPCS: 36415; 80048

== ENCOUNTER 2024-03-06 14:22 | Outpatient (REF) | payer MEDICARE, SELFPAY | END 2024-03-06 14:23 | disposition home or self-care (01) | LOC: LBN 14:22 | PROVIDERS: PCP Student in an Organized Health Care Education/Training Program; Visit Provider Nurse Practitioner Family | DX: R10.2 Pelvic and perineal pain (principal) | CPT/HCPCS: 87480; 87510; 87660 ==

== ENCOUNTER 2024-03-16 01:10 | Outpatient (CLI) | payer MEDICARE, SELFPAY ==
[2024-03-16] MEDS: Gadoterate meglumine 20 ML VIAL 14 ML IVP (10:49)
[2024-03-16] MEDS: Normal Saline - Diluent 50 ML VIAL IJ (10:50)
--- NOTE | 2024-03-16 11:00 | DI.MRI_ITS ---
Exam(s) MR ABDOMEN WO/W EXAM: MR ABDOMEN WO/W CLINICAL HISTORY: 3.6 x 2.1 cm pancreatic cystic lesion,abnl ct of abd,r93.5, k86.9 TECHNIQUE: Multiplanar multisequence MRI was performed with both pre and post contrast infused seque nces. Contrast injected sequences were performed following IV injection of 14 cc of Dotarem. COMPARISON: Prior CT scan of 02/15/2024 reviewed. FINDINGS: VISUALIZED LUNG BASES: No pleural effusions evident. There is no ascites evident. LIVER: There is a small well-defined hyperintense 9 x 6 mm structure interposed between the inferior aspect of the right hepatic lobe and the right-side of the colon. Possibly represents partially exop hytic cyst or hemangioma. Another tiny 1-2 millimeter similar finding is seen off the liver capsule on the medial aspect of the left hepatic lobe, best seen on coronal imaging. BILIARY: There is no obvious gallbladder pathology. The CBD is not dilated. PANCREAS: There is a non internally enhancing cystic lesion in the pancreatic body measuring 3.3 cm c raniocaudal by 3.8 cm AP by 1.8 cm wide, this comprised of a cluster of multiple cysts ranging up to 2.0 cm size. The pancreatic duct is not dilated. No regional lymphadenopathy identified. No additi onal other pancreatic lesions seen. SPLEEN: Spleen is not enlarged and there are no intrasplenic lesions.Splenic and portal veins are pat ent ADRENALS: There are no significant adrenal masses. KIDNEYS: No solid renal masses. No hydronephrosis.Small benign 8 millimeter cyst noted in the right kidney which does not require further workup. ABDOMINAL AORTA: Not enlarged and there is no significant para-aortic adenopathy. ANTERIOR ABDOMINAL WALL/GI: There is no evidence of significant anterior abdominal wall hernia in the field of view of this study.Is no evidence of obvious bowel obstruction. OSSEOUS: There are no lytic osseous lesions in the field of view of this study. Multilevel chronic degenerative disc disease and degenerative scoliosis noted in the lumbar spine. IMPRESSION: 1. 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 Pancreatic duct is not dilated. 2. Reimaging every 6 months for 2 years, then every 1 year for 2 years, then every 2 years for 6 year s is recommended. Alternatively, endoscopic ultrasound fine-needle aspiration biopsy can be performe d. Other findings as above. DATA REPOSITORY:
--- NOTE | 2024-03-16 11:35 | DI.VRAD_ITS ---
PROCEDURE INFORMATION: Exam: MR Abdomen Without and With Contrast Exam date and time: 03/16/2024 10:09 AM Age: 74 years old Clinical indication: Abnormal findings; Abnormal radiologic finding of the abdomen; Radiologic exam and body structure: US; Patient HX: 3.6 x 2.1 cm pancreatic cystic lesion, abnl CT of abd TECHNIQUE: Imaging protocol: Magnetic resonance imaging of the abdomen without and with contrast. Contrast material: DOTAREM; Contrast volume: 14 ml; Contrast route: INTRAVENOUS (IV); COMPARISON: CT ABDOMEN PELVIS W 02/15/2024 1:30 PM FINDINGS: Liver: No mass. Gallbladder and biliary ducts: Unremarkable. No stones. No ductal dilation. Pancreas: 38 mm septated cystic nonenhancing lesion in the pancreatic body, consistent with microcystic serous pancreatic neoplasm. No pancreatic duct dilation. This is stable compared to prior exam. Spleen: Unremarkable. No splenomegaly. Adrenal glands: Unremarkable. No mass. Kidneys: Subcentimeter simple cyst in the right kidney. This is stable compared to prior exam. No solid mass. No hydronephrosis. Stomach and bowel: Visualized stomach and intestines are unremarkable. Intraperitoneal space: No free fluid. Vasculature: No abdominal aortic aneurysm. Lymph nodes: No enlarged nodes. Bones/joints: Unremarkable. No suspicious lesions. Soft tissues: Unremarkable. IMPRESSION: 38 mm septated cystic nonenhancing lesion in the pancreatic body, consistent with microcystic serous pancreatic neoplasm. No pancreatic duct dilation. This is stable compared to prior exam. Reimaging every 6 months for 2 years, then every 1 year for 2 years, then every 2 years for 6 years is recommended. Alternatively, endoscopic ultrasound with fine needle aspiration is recommended. (Reference: George, 2017) References: George TEMPLE, et al. Management of Incidental Pancreatic Cysts: A White Paper of the ACR Incidental Findings Committee. J Am Corrina Radiol. 2017;14(7):911-923. Dictated and Authenticated by: Tori Medina MD. Ordering:NIECY Morales MD
== END 2024-03-16 01:30 ==
LOC: DI 01:10
PROVIDERS: PCP Student in an Organized Health Care Education/Training Program; Visit Provider Nurse Practitioner
DX: Z12.31 Encounter for screening mammogram for malignant neoplasm of breast (principal); R93.5 Abnormal findings on diagnostic imaging of other abdominal regions, including retroperitoneum; K86.9 Disease of pancreas, unspecified
CPT/HCPCS: 74183; 77063; 77067

== ENCOUNTER 2024-04-03 15:17 | Outpatient (CLI) | payer MEDICARE, SELFPAY ==
[2024-04-03 14:57] LABS: Abs Immature Grans 0.03 10^3/uL (0.0-0.06); Absolute Basophil Count 0.04 10^3/uL (0.0-0.2); Absolute Eosinophil Count 0.11 10^3/uL (0.0-0.7); Absolute Lymphocyte Count 2.15 10^3/uL (1.2-3.4); Absolute Monocyte Count 0.55 10^3/uL (0.1-0.8); Absolute Neutrophil Count 5.35 10^3/uL (1.2-6.7); Basophils % 0.5 %; Eosinophils % 1.3 %; HCT 33.4 % (36.0-46.0); HGB 11.4 g/dL (11.2-15.7); Immature Grans % 0.4 %; Lymphocytes % 26.1 %; MCH 31.8 pg (27.0-33.0); MCHC 34.1 % (32.0-36.0); MCV 93 fL (80-95); MPV 8.6 fL (8.0-11.0); Monocytes % 6.7 %; Platelet Count 394 10^3/uL (130-400); RBC 3.59 10^6/uL (3.93-5.22); RDW 12.2 % (11.7-14.6); RDW-SD 41.8 fL; WBC 8.23 10^3/uL (4.4-10.8)
[2024-04-03 15:41] LABS: ALT 24 U/L (14-59); AST 20 U/L (15-37); Albumin 4.1 g/dL (3.4-5.0); Alkaline Phosphatase 73 U/L (46-116); Anion Gap 11.1 mmol/L (3-11); BUN 19 mg/dL (7-18); CO2 26.9 mmol/L (21.0-32.0); CREATININE 0.9 mg/dL (0.55-1.02); Calcium 9.8 mg/dL (8.5-10.1); Chloride 101 mmol/L (98-107); Estimated GFR 66.67 (mL/min/1.73m2); Ferritin 75 ng/mL (8-252); Glucose 117 mg/dL (74-106); Potassium 3.7 mmol/L (3.5-5.1); Sodium 139 mmol/L (136-145); TSH 1.27 uIU/mL (0.36-3.74); Total Protein 7.9 g/dL (6.4-8.2)
[2024-04-03 16:09] LABS: Iron 56 ug/dL (50-170); Total Iron Binding Capacity 310 ug/dL (250-450); Transferrin Sat 18 % (15-50)
[2024-04-03 16:12] LABS: FREE T4 1.16 ng/dL (0.76-1.46)
[2024-04-03 22:14] LABS: T3,Free 3.7 pg/mL (2.8-5.3)
[2024-04-03 22:55] LABS: Thyroglobulin Antibody >500 U/mL (<=60); Thyroperoxidase Antibody 172 U/mL (<=60)
[2024-04-08 16:44] LABS: T3 (Triiodothyronine) Reverse 34 ng/dL (10-24)
== END 2024-04-03 15:18 | disposition home or self-care (01) ==
LOC: LBO 15:18
PROVIDERS: PCP Student in an Organized Health Care Education/Training Program; Referring Provider Emergency Medicine; Visit Provider Emergency Medicine
DX: E61.1 Iron deficiency (principal); E03.9 Hypothyroidism, unspecified; R68.89 Other general symptoms and signs
CPT/HCPCS: 36415; 80053; 86376; 82728; 83540; 83550; 84439; 84443; 84481; 84482; 85025

== ENCOUNTER 2024-04-29 09:00 | Outpatient (REF) | payer MEDICARE, SELFPAY ==
--- OUTSIDE RECORDS SUMMARY | 2024-04-30 13:06 | XMS_ITS | Continuity of Care Document ---
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: [employer] 2Result Comment: Unit: Unknown 3Result Comment: [...] Daily, # 30 cap, 11 Refill(s), Pharmacy: [facility] Start Date: 03/28/23 Status: Ordered EpiPen [...] fever, # 80 tab, 1 Refill(s), Pharmacy: [facility] Start Date: 11/02/22 Status: Ordered lisdexamfetamine [...] medication., # 21 tab, 0 Refill(s), Pharmacy: [facility], 157.48, cm, 09/26/23 10:42:00 EDT, Height, [...] Daily, # 90 cap, 0 Refill(s), Pharmacy: [facility] Start Date: 08/23/22 Status: Ordered traZODone [...] hr, # 20 tab, 0 Refill(s), Pharmacy: [facility], 157.48, cm, 09/26/23 10:42:00 EDT, Height, 72.57, kg, 09/26/23 10:51:00 EDT, Weight Dosing Start Date: 02/18/24 Stop Date: 02/28/24 Status: Ordered Tylenol 8 Hour 650 mg oral tablet, extended release 650 mg = 1 tab, Oral, BID, PRN as needed for fever, # 50 tab, 1 Refill(s), Pharmacy: [facility] Start Date: 11/02/22 Status: Ordered Tylenol Extra Strength 500 mg oral tablet QID, as needed, 0 Refill(s) Start Date: 04/27/22 Status: Ordered Vagifem 10 mcg vaginal tablet 10 mcg = 1 tab, VAG, Mon//Fr at bedtime, # 36 tab, 3 Refill(s), [facility]: [facility] Start Date: 01/08/23 Status: Ordered Vagifem 10 mcg vaginal tablet 10 mcg = 1 tab, VAG, Mon/Sat, # 26 tab, 4 Refill(s), Pharmacy: [facility] [...] Completed Surgery 2 06/2020 Completed Drainage of information technology auditor y canal abscess 3 10/2016 [...] No Access Member Role: Informed Provider Address: [address] Name: Yasmine Strickland APRN Position: Physician Member Role: Nurse Practitioner Address: [address] [place] [address] Name: MILO DANG Position: No Access Member Role: Primary Care Physician Address: [address] [place] [address] Care Team Related Persons Name: MARIANO MORENO Name: DESEAN ESPARZA Name: DESEAN ESPARZA Insurance Providers Guarantor name: SUNNY ESPARZA Health Plan Information #: 1 [place] [employer] Member Number: NA Policy Number: NA Health Plan Information #: 2 [place] Member Number: NA Policy Number: NA
--- OUTSIDE RECORDS SUMMARY | 2024-04-30 13:06 | XMS_ITS | Continuity of Care Document ---
Author Organization [facility] Ambulatory Clinics Address [address] [place] [address] Care Team Providers Care Rn Transport Name Role Phone MILO DANG Primary Care Physician Encounter [facility] NBR [id number] Date(s): 03/16/24 - 03/16/24 [facility] Ambulatory Clinics [address] [place], [place] [address] Discharge Disposition: Home Allergies, Adverse Reactions, Alerts Substance Criticality Severity Reaction Reaction Severity Status amoxicillin Unable to assess criticality Unknown Active morphine Unable to assess criticality Unknown Active Bactrim Unable to assess criticality Unknown Active Voltaren Unable to assess criticality Unknown Active Lipitor Unable to assess criticality Unknown Active Bees/Stinging Insects Unable to assess criticality Unknown Active OxyCONTIN Unable to assess criticality Unknown Active fenofibrate Unable to assess criticality Unknown Active citalopram Unable to assess criticality Unknown Active penicillins Unable to assess criticality Unknown Active sulfa drugs Unable to assess criticality Unknown Active Augmentin High criticality Moderate Act aide Effexor Unable to assess criticality Unknown Active Zocor Unable to assess criticality Unknown Active Sulfabenzamide/Sulfac etamide/Sulfathiazole High criticality Moderate Nausea Ac tive Crestor Unable to assess criticality Unknown Active Immunizations Given and Recorded Vaccine Date Status [...] 11/15/14 Tu rded 1Result Comment: Unit: Unknown 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: [employer] 2Result Comment: Unit: Unknown 3Result Comment: [...] Daily, # 30 cap, 11 Refill(s), Pharmacy: [facility] Start Date: 03/28/23 Status: Ordered EpiPen [...] fever, # 80 tab, 1 Refill(s), Pharmacy: [facility] Start Date: 11/02/22 Status: Ordered lisdexamfetamine [...] medication., # 21 tab, 0 Refill(s), Pharmacy: [facility], 157.48, cm, 09/26/23 10:42:00 EDT, Height, [...] Daily, # 90 cap, 0 Refill(s), Pharmacy: [facility] Start Date: 08/23/22 Status: Ordered traZODone [...] hr, # 20 tab, 0 Refill(s), Pharmacy: [facility], 157.48, cm, 09/26/23 10:42:00 EDT, Height, 72.57, kg, 09/26/23 10:51:00 EDT, Weight Dosing Start Date: 02/18/24 Stop Date: 02/28/24 Status: Ordered Tylenol 8 Hour 650 mg oral tablet, extended release 650 mg = 1 tab, Oral, BID, PRN as needed for fever, # 50 tab, 1 Refill(s), Pharmacy: [facility] Start Date: 11/02/22 Status: Ordered Tylenol Extra Strength 500 mg oral tablet QID, as needed, 0 Refill(s) Start Date: 04/27/22 Status: Ordered Vagifem 10 mcg vaginal tablet 10 mcg = 1 tab, VAG, Mon//Fr at bedtime, # 36 tab, 3 Refill(s), Pharmacy: [facility] Start Date: 01/08/23 Status: Ordered Vagifem 10 mcg vaginal tablet 10 mcg = 1 tab, VAG, Mon/Fri, # 26 tab, 4 Refill(s), [facility]: [facility] [...] Completed Surgery 2 06/2020 Completed Drainage of corporate auditor y canal abscess 3 10/2016 Completed [...] No Access Member Role: Informed Provider Address: [address] Name: Yasmine Strickland APRN Position: Physician Member Role: Nurse Practitioner Address: [address] [place] [address] Name: MILO DANG Position: No Access Member Role: Primary Care Physician Address: [address] [place] [address] Care Team Related Persons Name: MARIANO MORENO Name: DESEAN ESPARZA Name: DESEAN ESPARZA Insurance Providers Guarantor name: SUNNY ESPARZA Health Plan Information #: 1 [place] Member Number: NA Policy Number: NA Health Plan Information #: 2 [place] Member Number: NA Policy Number: NA
--- OUTSIDE RECORDS SUMMARY | 2024-04-30 13:07 | XMS_ITS | Continuity of Care Document ---
Author Organization [facility] Address [address] [place] [address] Care Team Providers Care Shoe Reconditioner Name Role Phone MILO DANG Primary Care Physician [facility]counter [facility] [id number] Date(s): 03/13/24 - 03/13/24 [facility] [address] [place], [place] [address] Encounter Diagnosis UTI symptoms(Discharge Diagnosis) - 03/13/24 Discharge Disposition: Home or Self Care Attending Physician: Sunita Dalal MD Admitting Physician: Sunita Dalal MD Referring Physician: Sunita Dalal MD Allergies, Adverse Reactions, Alerts Substance Criticality Severity Reaction Reaction Severity Status amoxicillin Unable to assess criticality Unknown Active morphine Unable to assess criticality Unknown Active penicillins Unable to assess criticality Unknown Active Augmentin [...] Insects Unable to assess criticality Unknown Active sulfa drugs Unable to assess criticality Unknown Active fenofibrate Unable to assess criticality Unknown Active citalopram Unable to assess criticality Unknown Active Immunizations [...] 11/15/14 Tu rded 1Result Comment: Unit: Unknown 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[employer] P[employer]ur 2Result Comment: Unit: Unknown 3Result [...] Daily, # 30 cap, 11 Refill(s), Pharmacy: [facility] Start Date: 03/28/23 Status: Ordered EpiPen [...] fever, # 80 tab, 1 Refill(s), Pharmacy: [facility] Start Date: 11/02/22 Status: Ordered lisdexamfetamine [...] medication., # 21 tab, 0 Refill(s), Pharmacy: [facility], 157.48, cm, 09/26/23 10:42:00 EDT, Height, [...] Daily, # 90 cap, 0 Refill(s), Pharmacy: [facility] Start Date: 08/23/22 Status: Ordered traZODone [...] hr, # 20 tab, 0 Refill(s), Pharmacy: [facility], 157.48, cm, 09/26/23 10:42:00 EDT, Height, 72.57, kg, 09/26/23 10:51:00 EDT, Weight Dosing Start Date: 02/18/24 Stop Date: 02/28/24 Status: Ordered Tylenol 8 Hour 650 mg oral tablet, extended release 650 mg = 1 tab, Oral, BID, PRN as needed for fever, # 50 tab, 1 Refill(s), Pharmacy: [facility] Start Date: 11/02/22 Status: Ordered Tylenol Extra Strength 500 mg oral tablet QID, as needed, 0 Refill(s) Start Date: 04/27/22 Status: Ordered Vagifem 10 mcg vaginal tablet 10 mcg = 1 tab, VAG, Sat// at bedtime, # 36 tab, 3 Refill(s), [facility] Start Date: 01/08/23 Status: Ordered Vagifem 10 mcg vaginal tablet 10 mcg = 1 tab, VAG, Mon/Sat, # 26 tab, 4 Refill(s), Pharmacy: [facility] [...] Completed Surgery 2 06/2020 Completed Drainage of bulk folder y canal abscess 3 10/2016 Completed Procedure [...] for Microbiology Reports Name Date Urine Culture 03/13/24 Microbiology Reports TEST:Urine Culture STATUS:Order in Progress BODY SITE: SOURCE:Urine, Clean Catch COLLECTED DATE/TIME:03/13/24 10:10 AM PRELIMINARY REPORT Culture in progress Social History Social History Type Response Tobacco Never tobacco user T obacco Use:. Sex Female Sex Representation Female (finding) Patient Care team information Care Team Personnel Name: KEELY GOMEZ Position: No Access Member Role: Informed Provider Address: [address] Name: Yasmine Strickland APRN Position: Physician Member Role: Nurse Practitioner Address: [address] [place] [address] Name: MILO DANG Position: No Access Member Role: Primary Care Physician Address: [address] [place] [address] Care Team Related Persons Name: MARIANO MORENO Name: DESEAN ESPARZA Name: DESEAN ESPARZA Insurance Providers Guarantor name: SUNNY ESPARZA Health Plan Information #: 1 [place] Member Number: [id number] Policy Number: NA Health Plan Information #: 2 [place] Member Number: [id number] Policy Number: NA Health Plan Information #: 3 [place] Member Number: [id number] Policy Number: NA
--- OUTSIDE RECORDS SUMMARY | 2024-04-30 13:07 | XMS_ITS | Continuity of Care Document ---
Author Organization [facility] Ambulatory Clinics Address [address] [place] [address] Care Team Providers Care Shoulder Joiner Name Role Phone MILO DANG Primary Care Physician Encounter [facility] NBR [id number] Date(s): 03/13/24 - 03/13/24 [facility]ulatory [facility] [address] [place], [place] 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[employer] 2Result Comment: Unit: Unknown 3Result Comment: [...] Daily, # 30 cap, 11 Refill(s), Pharmacy: [facility] Start Date: 03/28/23 Status: Ordered EpiPen [...] fever, # 80 tab, 1 Refill(s), Pharmacy: [facility] Start Date: 11/02/22 Status: Ordered lisdexamfetamine [...] medication., # 21 tab, 0 Refill(s), Pharmacy: [facility], 157.48, cm, 09/26/23 10:42:00 EDT, Height, [...] Daily, # 90 cap, 0 Refill(s), Pharmacy: [facility] Start Date: 08/23/22 Status: Ordered traZODone [...] hr, # 20 tab, 0 Refill(s), Pharmacy: [facility], 157.48, cm, 09/26/23 10:42:00 EDT, Height, 72.57, kg, 09/26/23 10:51:00 EDT, Weight Dosing Start Date: 02/18/24 Stop Date: 02/28/24 Status: Ordered Tylenol 8 Hour 650 mg oral tablet, extended release 650 mg = 1 tab, Oral, BID, PRN as needed for fever, # 50 tab, 1 Refill(s), Pharmacy: [facility] Start Date: 11/02/22 Status: Ordered Tylenol Extra Strength 500 mg oral tablet QID, as needed, 0 Refill(s) Start Date: 04/27/22 Status: Ordered Vagifem 10 mcg vaginal tablet 10 mcg = 1 tab, VAG, Mon// at bedtime, # 36 tab, 3 Refill(s), Pharmacy: [facility] Start Date: 01/08/23 Status: Ordered Vagifem 10 mcg vaginal tablet 10 mcg = 1 tab, VAG, Mon/Sat, # 26 tab, 4 Refill(s), Pharmacy: [place] [...] Completed Surgery 2 06/2020 Completed Drainage of reimbursement auditor y canal abscess 3 10/2016 Completed [...] Results Laboratory List Name Date .Urinalysis POCT 03/13/24 Most recent to oldest [Reference Range]: 1 Method of Collect POC Clean Catch *NA* (03/13/24 9:53 AM) Specific [place], Ur POC 1.020 *NA* (03/13/24 9:53 AM) Specimen Color POC [Yellow] Yellow (03/13/24 9:53 AM) Glucose, Urine POC Negative mg/dL *NA* (03/13/24 9:53 AM) Bilirubin, Urine POC [Negative] Negative (03/13/24 9:53 AM) Ketones, Urine POC [Negative mg/dL] Nega tive mg/dL (03/13/24 9:53 AM) Blood, Urine POC [Negative] Negative (03/13/24 9:53 AM) pH, Urine POC 7.5 *NA* (03/13/24 9:53 AM) Protein, Urine POC [Negative mg/dL] Nega tive mg/dL (03/13/24 9:53 AM) Urobilinogen, Urine POC [0.2] 0.2 (03/13/24 9:53 AM) Nitrite, Urine POC [Negative] Negative (03/13/24 9:53 AM) Leuk Esterase, Urine POC [Negative] Nega tive (03/13/24 9:53 AM) Clarity, Urine POC [Clear] Clear (03/13/24 9:53 AM) Social History Social History Type Response Tobacco Never tobacco user T obacco Use:. Sex Female Sex Representation Female (finding) Patient Care team information Care Team Personnel Name: KEELY GOMEZ Position: No Access Member Role: Informed Provider Address: [address] Name: Yasmine Strickland APRN Position: Physician Member Role: Nurse Practitioner Address: [address] [place] [address]- Name: MLIO DANG Position: No Access Member Role: Primary Care Physician Address: [address] [place], [place] [id number] [place] [address] Care Team Related Persons Name: MARIANO MORENO Name: DESEAN ESPARZA Name: DESEAN ESPARZA Insurance Providers Guarantor name: SUNNY ESPARZA Health Plan Information #: 1 Payer: [employer] Member Number: [id number] Policy Number: Health Plan Information #: 2 Payer: [employer] Member Number: [id number] Policy Number: NA Health Plan Information #: 3 Payer: [employer] Member Number: [id number] Policy Number: NA
--- OUTSIDE RECORDS SUMMARY | 2024-04-30 13:07 | XMS_ITS | Continuity of Care Document ---
Author Organization [facility] Ambulatory Clinics Address [address] [place] [address] Care Team Providers Care Formation Testing Operator Name Role Phone MILO DANG Primary Care Physician Encounter [facility] NBR [id number] Date(s): 02/27/24 - 02/27/24 [facility] Ambulatory Clinics [address] [place], [place] [email or web address] Discharge Disposition: Home or Self Care Attending Physician: Angeline Lama Allergies, Adverse Reactions, Alerts Substance Criticality Severity Reaction Reaction Severity Status amoxicillin Unable to assess criticality Unknown Active morphine Unable to assess criticality Unknown Active Bactrim Unable to assess criticality Unknown Active Voltaren Unable to assess criticality Unknown Active Bees/Stinging [...] 11/15/14 Tu rded 1Result Comment: Unit: Unknown 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[employer] 2Result Comment: Unit: Unknown 3Result Comment: [...] Daily, # 30 cap, 11 Refill(s), Pharmacy: [facility] Start Date: 03/28/23 Status: Ordered EpiPen [...] fever, # 80 tab, 1 Refill(s), Pharmacy: [facility] Start Date: 11/02/22 Status: Ordered lisdexamfetamine [...] medication., # 21 tab, 0 Refill(s), Pharmacy: [facility], 157.48, cm, 09/26/23 10:42:00 EDT, Height, [...] Daily, # 90 cap, 0 Refill(s), Pharmacy: [facility] Start Date: 08/23/22 Status: Ordered traZODone 150 mg oral tablet 150 mg = 1 tab, Oral, every day at bedtime, # 30 tab, 0 Refill(s) Start Date: 02/15/23 Status: Ordered triamcinolone 0.025% topical cream 1 karina, Topical, Daily, # 15 g, 0 Refill(s), Pharmacy: [facility] Start Date: 08/07/22 Stop Date: 08/21/22 Status: Ordered trimethoprim 100 mg oral tablet 100 mg = 1 tab, Oral, every 12 hr, # 20 tab, 0 Refill(s), Pharmacy: [facility], 157.48, cm, 09/26/23 10:42:00 EDT, Height, 72.57, kg, 09/26/23 10:51:00 EDT, Weight Dosing Start Date: 02/18/24 Stop Date: 02/28/24 Status: Ordered Tylenol 8 Hour 650 mg oral tablet, extended release 650 mg = 1 tab, Oral, BID, PRN as needed for fever, # 50 tab, 1 Refill(s), Pharmacy: [facility] Start Date: 11/02/22 Status: Ordered Tylenol Extra Strength 500 mg oral tablet QID, as needed, 0 Refill(s) Start Date: 04/27/22 Status: Ordered Vagifem 10 mcg vaginal tablet 10 mcg = 1 tab, VAG, Mon//Fr at bedtime, # 36 tab, 3 Refill(s), Pharmacy: [facility] Start Date: 01/08/23 Status: Ordered Vagifem 10 mcg vaginal tablet 10 mcg = 1 tab, VAG, Mon/Sat, # 26 tab, 4 Refill(s), Pharmacy: [facility] Start Date: 10/25/22 Stop [...] Access Member Role: Informed Provider Address: [address] Name: Yasmine Strickland APRN Position: Physician Member Role: Nurse Practitioner Address: [address] [place] [address] Name: MILO DANG Position: No Access Member Role: Primary Care Physician Address: [address] [place] [address] Care Team Related Persons Name: MARIANO MORENO Name: DESEAN ESPARZA Name: DESEAN ESPARZA Insurance Providers Guarantor name: SUNNY ESPARZA Health Plan Information #: 1 Payer: [employer] Member Number: [id number] Policy Number: NA Health Plan Information #: 2 Payer: [employer] Member Number: [id number] Policy Number: NA Health Plan Information #: 3 Payer: [employer] Member Number: [id number] Policy Number: NA
--- OUTSIDE RECORDS SUMMARY | 2024-04-30 13:08 | XMS_ITS ---
Author Organization [facility] Address [address] [place] [id number] Care Team Providers Care Sewing Trimmer Name Role Phone Veronica De Primary Care Provider REASON FOR VISIT In put on counselor options Encounters Encounter Location Date Provider Diagnosis [address] [id number] 02/17/2024 Veronica De Plan Of Treatment No Information Progress Notes * Yessenia LUONG SDOB:[birth year] (74 yo F)Acc No.[id number]:02/17/2024 Patient:?Yessenia LUONG :1950???Age:74 Y???Sex:Female Address:[address], [place] [address] * true * Date:? Generated for Dinorai balaji/Kelli/eTransmitting on:?04/30/2024 01:06 PM EST
--- OUTSIDE RECORDS SUMMARY | 2024-04-30 13:08 | XMS_ITS ---
Author Organization Unknown [facility] No information ASSESSMENT No information CHIEF COMPLAINT No information MEDICATIONS No information OBJECTIVE DATA No information PHYSICAL EXAMINATION No information TREATMENT PLAN Planned Care Start Date Provider Encounter for Check-up [id number] PROBLEMS No information RESULTS No information REVIEW OF SYSTEMS No information SUBJECTIVE DATA No information VITAL SIGNS No information
--- OUTSIDE RECORDS SUMMARY | 2024-04-30 13:08 | XMS_ITS ---
Author Organization [facility] Address [address] [place] [id number] Care Team Providers Care Automatic Line Set Up Mechanic Name Role Phone Veronica De Primary Care Provider [phone] REASON FOR VISIT possible MED REACTION Encounters Encounter Location Date Provider Diagnosis [address] [id number] 12/10/2023 Veronica De Plan Of Treatment No Information Progress Notes * Yessenia LUONG SDOB:[birth year] (73 yo F)Acc No.[id number]:12/10/2023 Patient:?AGLeonela Mamie :1950???Age:73 Y???Sex:Female Address:[address], [place] [address] * true * Date:? Generated for Printi balaji/Kelli/eTransmitting on:?04/30/2024 01:06 PM EST
--- OUTSIDE RECORDS SUMMARY | 2024-04-30 13:08 | XMS_ITS | Patient Health Record ---
Author Organization [facility] Address [address] [place], [place] [id number] Care Team Providers Care Bottom Stop Attacher Name Role Phone Veronica De Primary Care Provider [phone] Allergies Allergen (clinical drug ingredient) Drug/Non Drug [...] Problem Status W/U Status Risk Notes Problem 034719758 Anxiety disorder, unspecified (F41.9) Active confirmed Problem 709745770 Medication monitoring encounter (Z51.81) Active confirmed Problem 42605366 Other chronic pain (G89.29) Active confirmed Problem 53035694735575253 Major depressive disorder, recurrent, moderate (F33.1) Active confirmed Problem 51697627 Vitamin D deficiency, unspecified (E55.9) Active confirmed Problem Allergic rhinitis caused by pollen (80139119) Allergic rhinitis due to pollen, unspecified seasonality (J30.1) Active confirmed Encounters Encounter Location Date Provider Diagnosis [address] [id number] 05/07/2023 Veronica De Major depressive disorder, recurrent, moderate F33.1 ; Anxiety disorder, unspecified F41.9 and Other chronic pain G89.[address] [id number] 05/16/2023 Veronica De Major depressive disorder, recurrent, moderate F33.1 ; Anxiety disorder, unspecified F41.9 and Other chronic pain G89.[address] [id number] 06/24/2023 Veronica De Major depressive disorder, recurrent, moderate F33.1 ; Anxiety disorder, unspecified F41.9 and Other chronic pain G89.[address] [id number] 08/29/2023 Veronica De Major depressive disorder, recurrent, moderate F33.1 ; Anxiety disorder, unspecified F41.9 and Other chronic pain G89.[address] [id number] 07/08/2023 Veronica De [address] [id number] 08/29/2023 Veronica De [address] [id number] 09/26/2023 Veronica De Major depressive disorder, recurrent, moderate F33.[address] [id number] 12/10/2023 Veronica De [address] [id number] 02/17/2024 Veronica De [address] [phone] 03/06/2024 Veronica De Assessments Encounter Date Diagnosis (ICD Code) Assessment Notes Treatment Notes Treatment Clinical Notes 05/07/2023 Major depressive disorder, recurrent, moderate (ICD-10 - F33.1) 05/16/2023 Major depressive disorder, recurrent, moderate (ICD-10 - F33.1) 06/24/2023 Major depressive disorder, recurrent, moderate (ICD-10 - F33.1) 08/29/2023 Major depressive disorder, recurrent, moderate (ICD-10 - F33.1) 09/26/2023 Major depressive disorder, recurrent, moderate (ICD-10 - F33.1) 08/29/2023 Anxiety disorder, unspecified (ICD-10 - F41.9) 06/24/2023 Anxiety disorder, unspecified (ICD-10 - F41.9) 05/16/2023 Anxiety disorder, unspecified (ICD-10 - F41.9) 05/07/2023 Anxiety disorder, unspecified (ICD-10 - F41.9) 05/07/2023 Other chronic pain (ICD-10 - G89.29) 05/16/2023 Other chronic pain (ICD-10 - G89.29) 06/24/2023 Other chronic pain (ICD-10 - G89.29) 08/29/2023 Other chronic pain (ICD-10 - G89.29) 06/04/2023 Other Documentation assistance provided by erika Spence for [facility] on 06/04/2023. I have read the medical record and scribe entries. I approve the care and treatment provided to this patient as recorded by the scribe 05/07/2023 Other Documentation assistance provided by erika Spence [facility] 05/07/2023. I have read the [...] Other Documentation assistance provided by erika Spence [facility] 05/16/2023. 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 I have read the [...] Insured Coverage Start Date Coverage End Date [facility] [address] [place] [address] [id number] Yessenia Luong Self - patient is the [...]
--- OUTSIDE RECORDS SUMMARY | 2024-04-30 13:08 | XMS_ITS | Data Portability ---
Author Organization [facility] Address [address] [place] [address] Care Team Providers Care [place]set Stitcher Name Role Phone KENN BRENNER Primary Care Provider Assessment No assessment recorded. Plan of Treatment Reminders Order Date Submit Date Provider Last Modified By Organization Details Last Modified Time Details Appointments None recorded. Lab uric acid, serum or plasma 2022 023 [email or web address] [facility] (Registration ), [address] [place] [address] [place], [address], 3 11:14:57 CBC 2022 023 [email or web address] [facility] (Registration ), [address] [place] [address] [place], [address], 3 16:52:11 iron + total iron-bindin g capacity (TIBC), serum 2022 023 [facility] (Registration ), [address] [place] [address] [place], [address], 4 13:59:15 transferrin , serum 2022 023 [email or web address] [facility] (Registration ), [address] [place] [address] [place], [address], 4 13:59:16 ferritin, serum or plasma 2022 023 [email or web address] [facility] (Registration ), [address] [place] [address] [place], [address], 4 13:59:16 Referral physical therapist referral - For left foot pain? fracture, also chronic back pain 2022 023 [email or web address] [facility], [address] , [place], [address], 4 12:02:56 endocrinolo gy referral - help with thyroid and osteopenia 2022 023 [email or web address] [facility] , [address] [place] [address] [place], [address], 4 11:12:10 Procedures None recorded. Surgeries None recorded. Imaging XR, foot, 3 or more view - left foot: swelling, pain bruising r/o fx, Hx osteopenia 2022 023 [facility] (Radiology), [address] [place] [address] , [facility] [place], [address], 3 13:28:29 US, doppler, venous - r/o DVT Left leg, pain, swelling of foot w/o injury, pain in calf, no swelling, reccomended by cardiology 2022 023 [email or web address] [facility] (Radiology), [address] [place] [address] [place], [address], 3 16:48:48 Medication Orders Celebrex 50 mg capsule 2022 023 JAQUI [facility], [address] [place], [address], 3 09:34:55 Fosamax 70 mg tablet 2022 023 JAQUI [facility], [address] [place], [address], 3 09:22:11 Calcium 600 + D(3) 600 mg-10 mcg (400 unit) tablet 2022 023 JAQUI [facility], [address] [place], [address], 3 09:22:13 Vitamin D3 25 mcg (1,000 unit) capsule 2022 023 JAQUI [facility], [address] [place], [address], 3 09:22:10 vitamin B complex tablet 2022 023 JAQUI [facility], [address] [place], [address], 09:26:38 Patient TargetsNo targets recorded. Patient Instructions Encounter Date Encounter Id Patient Instructions Last Modified By Organization Details Last Modified Time 05/21/2023 [id number] Yessenia Luong expect a call from [facility] re: Left foot xray and left calf US, hold Vyvanse, will check uric acid level today and blood counts- will mail home results, call if they are abnormal follow up at next appt upcoming, f/u on the phone after imaging Not available 05/21/2023 14:08:05 06/04/2023 [id number] Yessenia Moreland ; start fosamax for osteopenia, and vit D and calcium, checking iron labs, start vit B, celebrex for joint pain follow up in 1 month Not available 06/04/2023 09:38:47 Reason for Referral Endocrinology Referral for H ypothyroidism help with thyroid and osteopenia Referring Physician: Kenn Brenner, Family Medicine, Encounter Date: 06/04/2023 Physical Therapist Referral for Pain in left foot For left foot pain? fracture, also chronic back pain Referring Physician: Kenn Brenner, Family Medicine, Encounter Date: 06/04/2023 Results Created Date Observation Date Name Description Value Unit Range Abnormal Flag Note LastModifiedBy Organization Detail LastModifiedTime 05/17/20 23 05/17/2023 VITAM IN D 25 TOTAL vitamin D 25 total 47.0 NG/mL 30-100 normal Refer ence Guide lines : Defic ient: <10 ng/ml Insuf ficie nt: 10-30 ng/ml Suffi cient : 30-10 0 ng/ml Toxic : >100 ng/ml Not Available [address] [place], [address] 05/17/2023 16:12:29 05/21/20 23 05/21/2023 COMPL ETE BLOOD COUNT NO DIFF WBC 6.05 10_3/ uL 4.4-10 .8 normal Not Available [address] [place], [address] 05/21/2023 16:52:11 05/21/20 23 05/21/2023 COMPL ETE BLOOD COUNT NO DIFF RBC 3.86 10_6/ uL 3.93-5 .22 low Not Available [address] [place], [address] 05/21/2023 16:52:11 05/21/20 23 05/21/2023 COMPL ETE BLOOD COUNT NO DIFF HGB 11.9 g/dL 11.2-1 5.7 normal Not Available [address] [place], [address] 05/21/2023 16:52:11 05/21/20 23 05/21/2023 COMPL ETE BLOOD COUNT NO DIFF HCT 35.6 % 36.0-4 6.0 low Not Available [address] [place], [address] 05/21/2023 16:52:11 05/21/20 23 05/21/2023 COMPL ETE BLOOD COUNT NO DIFF MCV 92 fL 80-95 normal Not Available Dinorah tucker [address] [place], [address] 05/21/2023 16:52:11 05/21/20 23 05/21/2023 COMPL ETE BLOOD COUNT NO DIFF MCH 30.8 pg 27.0-3 3.0 normal Not Available [address] [place], [address] 05/21/2023 16:52:11 05/21/20 23 05/21/2023 COMPL ETE BLOOD COUNT NO DIFF MCHC 33.4 % 32.0-3 6.0 normal Not Available [address] [place], [address] 05/21/2023 16:52:11 05/21/20 23 05/21/2023 COMPL ETE BLOOD COUNT NO DIFF RDW 11.9 % 11.7-1 4.6 normal Not Available [address] [place], [address] 05/21/2023 16:52:11 05/21/20 23 05/21/2023 COMPL ETE BLOOD COUNT NO DIFF platelet count 413 10_3/ uL 130-40 0 high Not Available [address] [place], [address] 05/21/2023 16:52:11 05/21/20 23 05/21/2023 COMPL ETE BLOOD COUNT NO DIFF MPV 9.7 fL 8.0-11 .0 normal Not Available [address] [place], [address] 05/21/2023 16:52:11 05/21/20 23 05/21/2023 URIC ACID uric acid 5.7 mg/dL 2.6-6. 0 normal Not Available [address] [place], [address] 05/21/2023 18:59:20 06/04/20 23 06/04/2023 IRON/ IBCT iron 72 ug/dL 50-170 normal Not Available Dinorah [address] [place], [address] 06/04/2023 17:30:26 06/04/20 23 06/04/2023 IRON/ IBCT total iron binding capacity 312 ug/dL 250-45 0 normal Not Available [address] [place], [address] 06/04/2023 17:30:26 06/04/20 23 06/04/2023 IRON/ IBCT transferrin sat 23 % 15-50 normal Not Available Nathalia gabriel [address] [place], [address] 06/04/2023 17:30:26 06/04/20 23 06/04/2023 OMID TIN ferritin 121 NG/mL 8-252 normal Not Available [address] [place], [address] 06/04/2023 18:08:25 06/04/2006/05/2023 TRANS OMID N transferrin 248 mg/dL 201-35 2 Test perfo rmed or refer red by [facility] [address], [place] [address] Not Available [address] [place], [address] 06/05/2023 09:19:24 08/05/19 24 08/05/2023 CREAT ININE 24 HR URINE total volume 3785 mL Not Available [address] [place], [address] 08/05/2023 16:14:10 08/05/19 24 08/05/2023 CREAT ININE 24 HR URINE creatinine,u rine 14.37 mg/dL No Refer ence Range estab lishe d Not Available [address] [place], [address] 08/05/2023 16:14:10 08/05/19 24 08/05/2023 CREAT ININE 24 HR URINE creatinine,2 4HR ur 0.53 g/24H R 0.60-1 .80 low Not Available [address] [place], [address] 08/05/2023 16:14:10 08/05/19 24 08/06/2023 CALCI UM URINE 24HR calcium urine 7.4 mg/dL see note NOTE: Refer ence range not estab lishe d Not Available [address] [place], [address] 08/06/2023 11:23:36 08/05/19 24 08/06/2023 CALCI UM URINE 24HR calcium urine 24 HR 287 mg/24 HR 100-30 0 Refer ence range assum es a dirk l daily intak e of calci um betwe en 600 - 800 mg/da y. Not Available [address] [place], [address] 08/06/2023 11:23:36 08/05/19 24 08/06/2023 CALCI UM URINE 24HR urine collection period 24.0 hours Test perfo rmed or refer red by [facility] [address], [place] [address] Not Available [address] [place], [address] 08/06/2023 11:23:36 08/05/19 24 08/06/2023 CALCI UM URINE 24HR timed urine volume 3875 mL Not Available Nathalia [email or web address] [place], [address] 08/06/2023 11:23:36 03/06/20 24 03/06/2024 VAGIN AL PATHO GEN SCREE N vaginal pathogen screen abnormal Vagin al Patho gen Scree n JABARI DA NEGAT SOPHY GARDN ERELL A POSIT SOPHY TRICH OMONA S NEGAT SOPHY Not Available [address] [place], [address] 03/06/2024 16:51:58 05/22/20 23 05/22/2023 ultra sound imagi ng repor t Patien t Name: Leonel Pandya Unit #: [id number] Loc: DI Orderi ng Provid er: Eileen Brenner Accoun t #: [id number] Status : REG CLI Primar y [...] tation , and color Dopple r. The screen handler ior tibial veins are patent . No saphen ous vein thromb osis or other superf icial venous thromb osis is seen. No hemato ma or Mariscal' s cyst is seen. IMPRES KATHIE: Negati ve lower extrem ity ultras ound. No eviden ce of DVT. DATA REPOSI TORY: Yuliya d By: Eileen Brenner CC: ------ ------ ------ ------ ------ ------ ------ ------ ------ ------ ------ ------ - Dictat ed By: Hardeep Barillas 1131 Transc ribed By: Alice Tracy 1131 This is privil eged, confid ential inform ation intend ed only for the provid er named. Any use or distri bution by any person other than this provid er is strict ly prohib ited. If you receiv e this report in error, please notify us immedi ately at and return the origin al report to us at the addres s above. Thank- you. [email or web address] [facility] [address] [place] [address] Dr, [place], [address] 05/22/2023 12:00:16 05/22/20 23 05/22/2023 XR, foot, 3 or more view No observ ation record ed. ronn Not Available 2022 13:49:53 05/22/2005/22/2023 x-ray imagi ng repor t Patien t Name: Leonel Pandya Unit #: [id number] Loc: DI Orderi ng Provid er: Eileen Brenner Accoun t #: [id number] Status : REG CLI Primar y [...] at the addres s above. Thank- you. [email or web address] [facility] [address], [address] 05/23/2023 10:27:45 05/28/20 23 05/28/2023 x-ray imagi ng repor t Patien t Name: Leonel Pandya Unit #: [id number] Loc: DIORS Orderi ng Provid er: Timur Salgado M.D. Accoun t #: [id number] Status : REG CLI Primar y Care [...] Dictat ed By: Kerwin Tay M.D. 1054 1054 Transc ribed By: Jasvir FONG,Román alejo 1054 This is privil eged, confid ential inform ation intend ed only for the provid er named. Any use or distri bution by any person other than this provid er is strict ly prohib ited. If you receiv e this report in error, please notify us immedi ately at [phone] and return the origin al report to us at the addres s above. Thank- you. [facility] [address], [place], [address] 05/28/2023 12:22:46 07/16/19 24 07/16/2023 x-ray imagi ng repor t Patien t Name: Leonel Pandya Unit #: [id number] Loc: SUNG [place] ng Provid er: Timur Salgado M.D. Accoun t #: [id number] Status : REG CLI Primar y Care [...] 1312 131 Transc ribed By: Alice Tracy 131 This is privil eged, confid ential inform ation intend ed only for the provid er named. Any use or distri bution by any person other than this provid er is strict ly prohib ited. If you receiv e this report in error, please notify us immedi amanuelly at [phone] and return the origin al report to us at the addres s above. Thank- you. [facility] [address], [place], [address] 07/16/2023 13:27:22 09/18/19 24 09/18/2023 x-ray imagi ng repor t Patien t Name: Leonel Pandya Unit #: [id number] Loc: DIORS Orderi ng Provid er: Timur Salgado M.D. Accoun t #: [id number] Status : REG CLI Primar y Care [...] ------ - Dictat ed By: Hardeep Barillas 161 161 Transc ribed By: Alice Tracy 161 This is privil eged, confid ential inform ation intend ed only for the provid er named. Any use or distri bution by any person other than this provid er is strict ly prohib ited. If you receiv e this report in error, please notify us immedi ately at [phone] and return the origin al report to us at the addres s above. Thank- you. [facility] [address] [place], [address] 09/19/2023 09:19:37 12/02/19 24 05/28/2023 x-ray imagi ng repor t Patien t Name: Leonel Pandya Unit #: [id number] Loc: DIORS Orderi ng Provid er: Timur Salgado M.D. Accoun t #: [id number] Status : DEP CLI Primar y Care Provid er: Simonek NEETU,T mag Date of Exam: 05/10 03/02 Sex: F Admiss ion Date: : 1949 Age: 73 Addend a: Exam(s ) XR FOOT LT COMPLE TE ADDEND UM: The images were review ed. I agree with the findin gs and impres kathie below. Dictat ed [...] 105 Transc ribed By: Jasvir FONG,Román alejo 1053 This is privil eged, confid ential inform ation intend ed only for the provid er named. Any use or distri bution by any person other than this provid er is strict ly prohib ited. If you receiv e this report in error, please notify us immedi amanuelly at and return the origin al report to us at the addres s above. Thank- you. [email or web address] [facility] [address], [place], [address] 12/06/2023 17:22:48 02/24/20 24 04/14/2020 , luis alberto brantley No observ ation record ed. Not Available 02/23 19:46:01 02/24/20 24 04/11/2020 gabriela RITTER No observ ation record ed. Not Available 02/23 19:46:02 02/24/20 24 04/14/2020 gabriela RITTER No observ ation record ed. Not Available 02/23 19:46:03 02/24/20 24 04/18/2021 gabriela RITTER No observ ation record ed. Not Available 02/23 19:46:04 02/24/20 24 03/16/2022 gabriela RITTER No observ ation record ed. Not Available 02/23 19:46:05 02/24/20 24 04/12/2022 XR, lumba r spine No observ ation record ed. Not Available 02/23 19:46:11 02/24/20 24 08/27/2022 MRI, lumba r spine No observ ation record ed. Not Available 02/23 19:46:12 02/24/20 24 08/01/2022 imagi ng/di agnos tic resul t No observ ation record ed. Not Available 02/23 19:46:13 02/24/20 24 12/18/2022 imagi ng/di agnos tic resul t No observ ation record ed. Not Available 02/23 19:46:15 02/24/20 24 10/14/2020 MAMMO , diagn ostic No observ ation record ed. Not Available 02/23 19:46:19 02/24/20 24 12/27/2022 bone densi ty No observ ation record ed. Not Available 02/23 19:46:26 02/24/20 24 04/12/2022 XR, knee No observ ation record ed. Not Available 02/23 19:46:30 02/24/20 24 10/14/2020 imagi ng/di agnos tic resul t No observ ation record ed. Not Available 02/23 19:47:06 02/24/20 24 03/01/2020 imagi ng/di agnos tic resul t No observ ation record ed. Not Available 02/23 19:47:07 02/24/20 24 03/01/2020 imagi ng/di agnos tic resul t No observ ation record ed. Not Available 02/23 19:47:08 02/24/20 24 03/12/2019 imagi ng/di agnos tic resul t No observ ation record ed. Not Available 02/23 19:49:28 Result Notes None recorded. Problems Name Problem SNOMED Code Status Onset Date Resolution Date Notes Provider Name and Address Organization Details Recorded Time Obesity 859327637 Active 200803/02/20 20 - Comments only - Juan Smith MD - Had good effect with just naltrexo ne even without bupropri on. I'm willing to represcr aki this. Problem Code: E66.9; Problem Code Type: ICD-10; Not Available [facility] 3 03:58:41 Major depressi on, single episode 69431700 Active 200907/19/19 21 - Comments only - Juan Smith MD - symptoms mild but persiste nt. She would like to try SSRI again, try sertrlin e and follow. 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 Encourag ed continue d yoga, mindfuln ess techniqu es such as meditati on, and aromathe rapy with lavendar oil before bedtime to help wind down the mind and body. Problem Code: F41.9; Problem Code Type: ICD-10; Not Available [facility] 3 03:58:42 Pure hypercho lesterol emia 469826379 Active 200711/02/19 21 - Comments only - Juan Smith MD - Reviewed cardiolo gy notes. LDL much better with med combinat ion, discusse d she should take the highest doses she can tolerate . Problem Code: E78.0; Problem Code Type: ICD-10; Not Available [facility] 3 03:58:42 Allergic rhinitis 80765326 Active 199804/14/20 18 - Comments only - Juan Smith MD - Seeing allergis t. Had liver testing in June and was normal. I don't think itching related to liver. Problem Code: J30.9; Problem Code Type: ICD-10; Not Available [facility] 3 03:58:42 Insomnia 625472812 Active 200906/16/19 20 - Comments only - Juan Smith MD - Getting to sleep well and sleeping 9 hours, try cutting back trazodon e. Problem Code: G47.00; Problem Code Type: ICD-10; Not Available [facility] 3 03:58:42 Obstruct sophy sleep apnea syndrome 34381533 Active 201104/02/20 17 - Comments only - Juan Smith MD - getting fitted for oral applianc e with dentist in [place]. Problem Code: G47.33; Problem Code Type: ICD-10; Not Available [facility] 3 03:58:42 Hypothyr oidism 75979712 Active 201403/02/20 20 - Comments only - Juan Smith MD - on 50mcg LT4, recheck TSH/refl ex today Problem Code: E03.9; Problem Code Type: ICD-10; Not Available [facility] 3 03:58:42 History of nutritio nal disorder 968968691 Active 2014 Not Available [facility] 3 03:58:42 Heart murmur 23111556 Active 2014 Problem Code: R01.1; Problem Code Type: ICD-10; Not Available [facility] 3 03:58:42 Restless legs 42616777 Active 2014 Problem Code: G25.81; Problem Code Type: ICD-10; Not Available [facility] 3 03:58:42 Cosmetic surgery Completed 201508/26/2015 Problem Code: Z41.1; Problem Code Type: ICD-10; Not Available [facility] 3 03:58:42 Increase d frequenc y of urinatio n 034491844 Completed 201510/18/2015 Problem Code: R35.0; Problem Code Type: ICD-10; Not Available [facility] 3 03:58:43 History and physical examinat charly, administ ratishivani Completed 201512/08/2015 Problem Code: Z02.89; Problem Code Type: ICD-10; Not Available [facility] 3 03:58:43 Disorder associat ed with menstrua tion AND/OR menopaus e 047186411 Active 201502/20/20 18 - Comments only - Juan Smith MD - Would like to use premarin cream. Has used very similar products in past. Reviewed risks includin g endometr ial cancer and blood clots and possibly MD, though risk low. She would like to try. Problem Code: N95.9; Problem Code Type: ICD-10; Not Available [facility] 3 03:58:43 Chronic allergic otitis media 16156229 Active 201604/02/20 17 - Comments only - Juan Smith MD - Refilled ofloxaci n in case infectio n recurs while in remote setting. Has worked in past Problem Code: H65.419; Problem Code Type: ICD-10; Not Available [facility] 3 03:58:43 Motion sickness 39855920 Active 201602/14/20 17 - Comments only - Juan Smith MD - Going on cruise. Can use scopolam ine patch. Discusse d ADRs. Problem Code: T75.3xxS ; Problem Code Type: ICD-10; Not Available [facility] 3 03:58:43 Pain of joint of knee 7544676258 Active 201603/02/20 20 - Comments only - Juan Smith MD - likely OA, assess with XR, consider ortho if severe. PT if patient willing. Problem Code: M25.569; Problem Code Type: ICD-10; Not Available [facility] 3 03:58:43 Urge incontin ence of urine 10719540 Active 201707/19/19 21 - Comments only - Juan Smith MD - Improved with tolterid ine and topical estrogen . Discusse d antichol inergic ADRs, she plans to try to come off tolterid ine after another month. Problem Code: N39.41; Problem Code Type: ICD-10; Not Available [facility] 3 03:58:43 Diarrhea 81980946 Active 201806/16/19 20 - Comments only - Juan Smith MD - Intermit tent symptoms , not severe. I'm not sure O&P would be producti ve at this point unless symptoms worsen Not Available [facility] 3 03:58:43 Vitamin D deficien cy 28249311 Active 201803/02/20 20 - Comments only - Juan Smith MD - recheck with labs. Problem Code: E55.9; Problem Code Type: ICD-10; Not Available [facility] 3 03:58:44 Fatigue 75406525 Active 201803/19/20 19 - Comments only - [...] R53.83; Problem Code Type: ICD-10; Not Available [facility] 3 03:58:44 Gastroes ophageal reflux disease without esophagi tis 661283313 Active 201906/16/19 20 - Comments only - Juan Smith MD - mild symptoms , discusse d managmen t options Problem Code: K21.9; Problem Code Type: ICD-10; Not Available [facility] 3 03:58:44 Insect bite Completed 201911/21/2019 11/20/19 20 - Comments only - Geri Soares GRINDING MACHINE TENDER - Possibly unattach ed tick; pt did not bring insect in to be examined (it flushed down the shower drain). Explaine d that this does not meet CDC guidelin es for Lyme prophyla xis (due to lack of engorged tick and timeline ). Pt agreeabl e. Not Available [facility] 3 03:58:44 Screenin g for malignan t neoplasm of breast Completed 201903/03/2020 Problem Code: Z12.39; Problem Code Type: ICD-10; Not Available [facility] 3 03:58:44 Spasm 29744172 Active 2019 Problem Code: R25.2; Problem Code Type: ICD-10; Not Available [facility] 3 03:58:44 Biceps tendinit is 004829717 Active 2019 Problem Code: M75.21; Problem Code Type: ICD-10; Not Available [facility] 3 03:58:44 Breast composit ion 715884148 Active 2019 Not Available [facility] 3 03:58:45 Idiopath ic osteoart hritis 077181666 Active 201907/19/19 21 - Comments only - Juan Smith MD - Offered surgery, we discusse d, she will f/u with Mary Ann. Problem Code: M18.11; Problem Code Type: ICD-10; Not Available [facility] 3 03:58:45 Anemia 515386103 Active 202011/02/19 21 - Comments only - Juan Smith MD - Discusse d. MCV high normal. Recent normal B12. Alcohol slightly higher than ideal levels, she will try to stop. High RDW could reflect reticulo cytosis, blood loss? Get iron levels and iFOB Problem Code: D64.9; Problem Code Type: ICD-10; Not Available [facility] 3 03:58:45 Adult health examinat ion Active 2020 Problem Code: Z00.00; Problem Code Type: ICD-10; Not Available [facility] 3 03:58:45 Calcium deposit in bursa 874184783 Active 202011/02/19 21 - Comments only - Juan Smith MD - We discusse d her calcium levels have been normal, calcium dopositi on is typicall y a result of inflamma tion rather than the cause. Given her concern, will get ionized calcium to varify she doesn't have high circulat ing calcium. Problem Code: M71.40; Problem Code Type: ICD-10; Not Available [facility] 3 03:58:45 Spinal stenosis 24816440 Active 2022 Problem Code: M48.00; Problem Code Type: ICD-10; Not Available [facility] 3 03:58:45 History of infectio us disease 325070863 Active 2022 Problem Code: Z86.19; Problem Code Type: ICD-10; Not Available [facility] 3 03:58:46 Bone density finding 370378076 Active 2022 Problem Code: M85.80; Problem Code Type: ICD-10; Not Available [facility] 3 03:58:46 Pain in finger 42855260 Active 2022 Problem Code: M79.646; Problem Code Type: ICD-10; Not Available [facility] 3 03:58:46 Overweig ht 218632789 Completed 201402/24/2016 Problem Code: E66.3; Problem Code Type: ICD-10; Not Available [facility] 3 03:58:48 Cellulit is of left upper limb [id number] 745360 Completed 201803/06/2023 11/27/19 19 - Comments only - Juan Smith MD - Most c/w bacteria l cellulit is with some tracking up arm, but acute lyme in DDX as may have started with tick bite. Will cover with doxycycl ine x 2 weeks in case, RTC if not improvin g. Problem Code: L03.114; Problem Code Type: ICD-10; Not Available [facility] 3 03:58:48 Allergic rhinitis 05625685 Completed 200704/16/2016 Not Available [facility] 3 03:58:48 Anxiety state [id number] Completed 200703/06/2023 Not Available [facility] 3 03:58:49 Screenin g for disorder Completed 201703/18/2019 Problem Code: Z13.9; Problem Code Type: ICD-10; Not Available [facility] 3 03:58:49 Mixed hyperlip idemia [id number] Completed 200702/24/2016 Problem Code: E78.2; Problem Code Type: ICD-10; Not Available [facility] 3 03:58:49 Gastriti s [id number] Completed 201809/01/2018 Problem Code: K29.70; Problem Code Type: ICD-10; Not Available [facility] 3 03:58:49 Cataract 269898710 Completed 201809/01/2018 Problem Code: H26.9; Problem Code Type: ICD-10; Not Available [facility] 3 03:58:50 Acute sinusiti s 06518617 Completed 201809/05/2018 Problem Code: J01.90; Problem Code Type: ICD-10; Not Available [facility] 3 03:58:51 Screenin g for malignan t neoplasm of colon Completed 201803/19/2019 Problem Code: Z12.11; Problem Code Type: ICD-10; Not Available [facility] 3 03:58:51 Pre-surg norberto evaluati on Completed 201402/24/2016 Problem Code: Z01.818; Problem Code Type: ICD-10; Not Available [facility] 3 03:58:51 Allergic disposit ion 402756486 Completed 199803/06/2023 Not Available [facility] 3 03:58:52 Generali zed hyperhid rosis 513936276 Completed 201402/24/2016 Problem Code: R61; Problem Code Type: ICD-10; Not Available [facility] 3 03:58:52 Dyspnea 749963789 Completed 201706/16/2018 Problem Code: R06.02; Problem Code Type: ICD-10; Not Available [facility] 3 03:58:52 Pain in finger 03651286 Completed 201903/06/2023 Problem Code: M79.646; Problem Code Type: ICD-10; Not Available [facility] 3 03:58:53 Disorder of hematopo ietic structur e 404980347 Completed 202003/06/2023 Problem Code: D75.89; Problem Code Type: ICD-10; Not Available [facility] 3 03:58:53 Dyspnea 926666569 Completed 201504/02/2017 Problem Code: R06.02; Problem Code Type: ICD-10; Not Available [facility] 3 03:58:53 Hypertro phy of breast 678754243 Completed 201402/24/2016 Problem Code: N62; Problem Code Type: ICD-10; Not Available [facility] 3 03:58:54 Pain in thoracic spine 714490425 Completed 201402/24/2016 Problem Code: M54.9; Problem Code Type: ICD-10; Not Available [facility] 3 03:58:54 Cough 40053602 Completed 201402/24/2016 Problem Code: R05; Problem Code Type: ICD-10; Not Available [facility] 3 03:58:55 Localize d eruption of skin 721358448 Completed 201803/02/2020 Problem Code: R21; Problem Code Type: ICD-10; Not Available [facility] 3 03:58:55 Nausea 897562190 Completed 201402/24/2016 Problem Code: R11.0; Problem Code Type: ICD-10; Not Available [facility] 3 03:58:55 Neck pain 73307407 Completed 201402/24/2016 Problem Code: M54.2; Problem Code Type: ICD-10; Not Available [facility] 3 03:58:56 Depressi ve disorder 49423615 Completed 200903/06/2023 Problem Code: 311; Problem Code Type: ICD-9; Not Available [facility] 3 03:58:57 Worried well 29185918 Completed 200802/24/2016 Not Available [facility] 3 03:58:57 Notes:*Problem Name: H/o Ane marybeth *ICD-10 Codes: *Problem Status: inactive *Comments: *Note Date: 10/08/1998 *Problem Name: H/o Anemia *ICD-10 Codes: *Problem Status: inactive *Comments: *Problem Code Type: CPT *Note Date: 10/08/1998 Problem Notes None recorded. Procedures Surgical History None recorded. Imaging Results Imaging Date Name Status LastModified by [facility] Details LastModified Time 05/22/2023 ultrasound imaging report completed the6 [address] [place], [address] 05/22/2023 12:00:16 05/22/2023 XR, foot, 3 or more view completed Information not available 05/22/2023 13:49:53 05/22/2023 x-ray imaging report completed [email or web address] [address] [place], [address] 05/23/2023 10:27:45 05/28/2023 x-ray imaging report completed the6 [address] [place], [address] 05/28/2023 12:22:46 07/16/2023 x-ray imaging report completed [address] [place], [address] 07/16/2023 13:27:22 09/18/2023 x-ray imaging report completed [address] [place], [address] 09/19/2023 09:19:37 05/28/2023 x-ray imaging report completed [email or web address] [address] [place], [address] 12/06/2023 17:22:48 04/14/2020 US, breast completed Information no t available 02/24/2024 19:46:01 04/11/2020 MAMMO, screening completed Information not available 02/24/2024 19:46:02 04/14/2020 MAMMO, screening completed Information not available 02/24/2024 19:46:03 04/18/2021 MAMMO, screening completed Information not available 02/24/2024 19:46:04 03/16/2022 MAMMO, screening completed Information not available 02/24/2024 19:46:05 04/12/2022 XR, lumbar spine completed Information not available 02/24/2024 19:46:11 08/27/2022 MRI, lumbar spine completed Information not available 02/24/2024 19:46:12 08/01/2022 imaging/diagnos tic result completed Information not available 02/24/2024 19:46:13 12/18/2022 imaging/diagnos tic result completed Information not available 02/24/2024 19:46:15 10/14/2020 MAMMO, diagnostic completed Information not available 02/24/2024 19:46:19 12/27/2022 bone density completed Information not available 02/24/2024 19:46:26 04/12/2022 XR, knee completed Information no t available 02/24/2024 19:46:30 10/14/2020 imaging/diagnos tic result completed Information not available 02/24/2024 19:47:06 03/01/2020 imaging/diagnos tic result completed Information not available 02/24/2024 19:47:07 03/01/2020 imaging/diagnos tic result completed Information not available 02/24/2024 19:47:08 03/12/2019 imaging/diagnos tic result completed Information not available 02/24/2024 19:49:28 Procedure Notes None recorded. Medical Equipment None Reported. Allergies Allergen ID Allergen Name Allergen Category Reaction Reaction Severity Criticality Documentation Date Start Date Code Code System Note Provider Name and Address Organization Details Recorded Time 83534 wasp venoms environme nt swelling moderate Not available 04/19/20232005 41638 RxNorm swell ing Aller gyNam e: 'BEE STING S'; Not Available [facility] 16:07:24 07124 Bactrim medicatio n Not available Not available Not available 04/19/20232005 42022 9 RxNorm [facility] Available [facility] 16:07:25 11270 sulfasala zine Not available Not available Not available Not available 04/19/20232011 9524 RxNorm Not Available [facility] 3 16:07:25 93800 simvastat in medicatio n myalgias (muscle pain) moderate Not available 04/19/20232006 18184 RxNorm muscl e pain Aller gyRea ction : 'musc le pain' ; Not Available [facility] 3 16:07:25 73228 atorvasta tin calcium medicatio n myalgias (muscle pain) moderate Not available 04/19/20232006 99753 RxNorm muscl e pain Aller gyRea ction : 'musc le pain' ; Not Available [facility] 3 16:07:25 61362 fenofibra te medicatio n other mild Not available 04/19/20232015 8703 RxNorm Stoma ch upset Aller gyRea ction : 'Stom ach upset '; Not Available [facility] 3 16:07:25 44538 Augmentin medicatio n nausea mild Not available 04/19/20232014 80424 2 RxNorm nause a Not Available [facility] 3 16:07:25 73128 Crestor medicatio n myalgias (muscle pain) moderate Not available 04/19/20232006 47887 4 RxNorm muscl e pain Aller gyRea ction : 'musc le pain' ; Not Available [facility] 3 16:07:25 65422 morphine sulfate medicatio n diarrhea mild Not available 04/19/20232013 01959 RxNorm diarr hea Not Available [facility] 3 16:07:26 59091 Voltaren medicatio n other mild Not available 04/19/20232011 44722 6 RxNorm GI Aller gyRea ction : 'GI'; Aller gyCod e: '2420 06921 05'; Aller gyNam e: 'VOLT AREN' ; Aller gyCon ceptT ype: 'NDC' ; Not Available [facility] 3 16:07:26 Medications Name Sig Start [...] Available Not Available trazodone 50 mg tablet active Not Available Not Available Not Available atorvasta tin 10 mg tablet TAKE [...] 1 gtt bid active ordered by Jasmin padgett Not Available Not Available Not Available ofloxacin [...] Not Available Not Available No t Available [facility] Thyroid 30 mg tablet Take 1 tab [...] No t Available Nasonex 50 mcg/actua tion [place] 2 sprays daily 02/23 completed Not Available [...] Not Available Not Available Not Available calcium 600 mg (as carbonate )-vitamin D3 10 mcg (400 unit) tablet TAKE ONE TABLET BY MOUTH TWICE A DAY DIRECTED 2023 active Not Available Not Available Not Avai labstewart olopatadi ne 0.2 % eye drops INSTILL [...] completed Not Available Not Available Not Available [facility] 32.5 mg tablet Take 1 [...] Not Available Not Available Artificia l Tears (fx754-dp promell-g lycerin) 1 %-0.2 %-0.2 % eye [...] 150 mm[Hg] 82 mm[Hg] ULICES DE LEÓN [facility] 05/21/2023 13:43:07 Date Recorded Body height Heart rate Systolic blood pressure Diastolic blood pressure Provider Name and Address Organization Details Last Updated DateTime 06/04/2023 160.528 cm 80 /min 130 mm[Hg] 82 mm[Hg] ULICES DE LEÓN [employer] [facility] 06/04/2023 09:01:33 Social History None recorded. Functional Status None recorded. Mental Status None recorded. Family History Relationship Description Onset Age of this Age Resolved Age Notes LastModified by Organization Details LastModified Time Sister Family history of Hypertension [email or web address] Not available 03/2023 03:58:33 Notes:*Problem: updated 11/22 Mother: @ 91, neurological [...] adolescent or pediatric 04/02/2017 completed Not Available [facility] 04/19/2023 05:31:57 Hep A-Hep B 11/15/2014 completed Not Available [facility] 04/19/2023 05:31:58 Tdap 07/02/2016 completed Not Available [facility] 05:31:58 Tdap 10/15/2016 completed Not Available [facility] 05:31:58 Tdap 11/27/2021 completed Not Available [facility] 05:31:58 Tdap 02/19/2018 completed Not Available [facility] 05:31:58 zoster live 06/16/2018 completed Not Available [facility] 04/19/2023 05:31:58 zoster live 10/15/2016 completed Not Available [facility] 04/19/2023 05:31:58 zoster live 06/06/2016 completed Not Available [facility] 04/19/2023 05:31:58 Pneumococcal conjugate PCV 13 11/15/2014 completed Not Available [facility] 04/19/2023 05:31:59 Influenza, split virus, trivalent, preservative 04/11/2015 completed Not Available [facility] 04/19/2023 05:31:59 Influenza, split virus, quadrivalent, preservative 04/02/2017 completed Not Available [facility] 04/19/2023 05:31:59 zoster recombinant 02/19/2018 completed [facility] 04/[facility]/2023 05:31:59 Influenza, high-dose, quadrivalent, PF 03/07/2020 completed Not Available [facility] 04/19/2023 05:31:59 Influenza, high-dose, quadrivalent, PF 03/16/2022 completed Not Available [facility] 04/19/2023 05:31:59 COVID-19, mRNA, LNP-S, PF, 100 mcg/0.5mL dose or 50 mcg/0.25mL dose 08/03/2020 completed Not Available [facility] 04/19/2023 05:31:59 COVID-19, mRNA, LNP-S, PF, 100 mcg/0.5mL dose or 50 mcg/0.25mL dose 08/31/2020 completed Not Available [facility] 04/19/2023 05:31:59 COVID-19, mRNA, LNP-S, PF, 100 mcg/0.5mL dose or 50 mcg/0.25mL dose 09/20/2021 completed Not Available [facility] 04/19/2023 05:32:00 typhoid, oral 04/13/2017 completed [facility] 04/19/2023 05:32:00 pneumococcal polysaccharide PPV23 10/15/2016 completed Not Available [facility] 2022 05:32:00 pneumococcal polysaccharide PPV23 06/06/2016 completed Not Available [facility] 2022 05:32:00 Hep B, adult 06/17/2019 completed Not Available [facility] 04/19/2023 05:32:00 Hep A, adult 04/02/2017 completed Not Available [facility] 04/19/2023 05:32:00 influenza, unspecified formulation 03/23/2019 completed Not Available [facility] 04/19/2023 05:32:00 influenza, unspecified formulation 04/18/2021 completed Not Available [facility] 04/19/2023 05:32:00 Influenza, high-dose, quadrivalent, PF 03/20/2023 completed Not Available [facility] 06/21/2023 05:31:41 SARS-COV-2 (COVID-19) vaccine, UNSPECIFIED 04/09/2023 completed Not Available [facility] 06/21/2023 05:31:42 Past Encounters Encounter ID Performer Location Encounter Start Date Encounter Closed Date Diagnosis/Indication Diagnosis SNOMED-CT Code Diagnosis ICD10 Code [id number] [address] [address] 05/21/2023 13:20:46 05/21/2023 14:24:08 Swelling of left foot 632993186 M79.89 Easy bruising 791392037 R58 [id number] Kenn Brenner [facility] [address] [place] [address] 06/04/2023 08:49:20 06/04/2023 10:30:49 Pain in left foot 8588410342 57041 M79.672 Osteopenia 665854959 M85 .80 Hypothyroidism 20126514 E03.9 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 M19.91 Fatigue 96752519 R53.83 Health Concerns Section Related Observation LastModified by Organization Detai ls LastModified Time None Recorded Concern Status LastModified by Organization Details LastModified Time None Recorded Advance Directives Directive None Recorded Payers Encounter Date Sequence Insurance Name Policy Number Policy Hendrix Covered Member ID Hendrix Member ID Guarantor Name 05/21/2023 1 [id number] - [place]PO) [id number] Yessenia Griffinl [id number] Yessenia Griffinl 06/04/2023 1 [place] - [place]) [id number] Yessenia Hatch Kitchel [id number] Yessenia Hatch Kitnavin Notes Date Note Type Note Provider Name and Address Organization Details Recorded Time 05/21/2023 text/html 73-year-old woma n here for multiple complaintsShe developed left foot bruising, swelling and pain 1 week following a steroid injection that she had in her back? given to her by a provider at [facility] for chronic back pain.She was seen by her physical therapist as she thought it was plantar fasciitis they advised that she see her PCP. She called her information clerk and they advised that she get a Doppler ultrasound to rule out a DVT.She denies shortness of breath, or any injury. Reports being very sedentary. No fever. Kenn solitario [place] - [facility]. 05/23/2023 13:18:31 06/04/2023 text/html 73 yr old woman here for f/u L foot pain: originally seen 05/21/2023 at [facility] for multiple complaints :HX: She developed left foot bruising, swelling and pain 1 week following a steroid injection that she had in her back? given to her by a provider at [facility] for chronic back pain.She was seen by her physical therapist as she thought it was plantar fasciitis they advised that she see her PCP. She called her information clerk and they advised that she get a Doppler ultrasound to rule out a DVT.She denies shortness of breath, or any injury. [...] is already taking calcium and vitamin D. Kenn solitario [place] - [facility]. 06/04/2023 10:11:37 OBGyn Episode No OBEpisode recorded.
--- OUTSIDE RECORDS SUMMARY | 2024-04-30 13:08 | XMS_ITS | Clinical Summary ---
Author Organization [facility] Address [address] [place] [address] Care Team Providers Care [place] Name Role Phone Unavailable Primary Care Provider Unavailabl e Encounters Date Type Department Care Team Description 04/29/2024 Lab Requisition [facility] Pathology & Laboratory [facility] [address] [place] [address] Outr Resulting Lab, Provider 04/03/2024 Lab Requisition [facility] Pathology Laboratory [address] [address] Outr Resulting Lab, Provider 02/24/2024 Lab Requisition [facility] Pathology & Laboratory [address] [address] Outr Resulting Lab, Provider 02/16/2024 Lab Requisition [facility] Pathology & Laboratory [address] [address] Outr Resulting Lab, Provider from Last 3 Months Social History Tobacco Use Types Packs/Day Years Used Date Smoking Tobacco: Never Assessed Comments Unknown Sex and Gender Information Value Date Recorded Sex Assigned at Not on file Legal Sex Female 17:50 EST Gender Identity Not on file Sexual Orientation Not on file Plan of Treatment Health Maintenance Due Date Last Done Comments Fall Risk Screening 2014 COVID-19 Vaccine (2023- season) 2024 RSV Immunization ( o r 60+ Years) (1 - 1-dose 75+ series) 02/10/2024 Hepatitis C Screen Completed 11/04/2020 Procedures Procedure Name Priority Date/Time Associated Diagnosis Comments T3 FREE Routine 04/29/2024 10:35 EST THYROID ANTIBODIES Routine 04/29/2024 10 :35 EST T3 FREE Routine 04/03/2024 14:53 EDT THYROID ANTIBODIES Routine 04/03/2024 14 :53 EDT HOLD SST Today 02/24/2024 14:59 EDT LYME AB Today 02/24/2024 14:59 EDT RHEUMATOID FACTOR Today 02/24/2024 14: 59 EDT ANTI NUCLEAR AB (ERIKA), IFA Today 02/24/2024 14:59 EDT CCP ANTIBODIES Today 02/24/2024 14:59 EDT OSMOLALITY, URINE Routine 02/15/2024 18: 30 EDT HEPATITIS C AB W REFLEX TO HCV RNA BY PCR Routine 11/04/2020 14:37 EDT from Last 3 Months or Most Recently Relevant to Health Maintenance Results * T3 FREE (04/29/2024 10:35 EST) Only the most recent of2 resultswithin the time period is included. T3, Free 3.9 2.8 - 5.3 pg/mL 04/29/2024 17:46 EST [facility] Blood VENOUS BLOOD / Unknown 04/29/2024 10:35 EST 04/29/2024 17:14 EST us Provider Outr Resulting Lab CHEMISTRY & BLOOD GA S ORDERABLES Final Result [facility] [address] [place] [address] * (ABNORMAL) THYROID ANTIBODIES (04/29/2024 10:35 EST) Only the most recent of2 resultswithin the time period is included. Anti-Thyroglobulin >500(H) <=60 U/mL 2023 18:25 EST [facility] Thyroperoxidase Ab 187(H) <=60 U/mL 2023 18:25 EST [facility] Blood VENOUS BLOOD / Unknown 04/29/2024 10:35 EST 04/29/2024 17:14 EST us Provider Outr Resulting Lab CHEMISTRY & BLOOD GA S ORDERABLES Final Result [facility] [address] [place] [address] * HOLD SST (02/24/2024 14:59 EDT) Hold Hold 02/24/2024 22:30 EDT [facility] Blood VENOUS BLOOD / Unknown 02/24/2024 14:59 EDT 02/24/2024 21:17 EDT us Provider Outr Resulting Lab LAB INFO SERVICE AND SUPPORT & PHONE RESULT Final Result Performing Organization Address City/[facility]/ZIP Co de Phone Number [facility] [address] [place] [address] * CCP ANTIBODIES (02/24/2024 14:59 EDT) CCP Antibodies <2.5 <5.0 U/mL 02/25/2024 9:35 EDT [facility] Blood VENOUS BLOOD / Unknown 02/24/2024 14:59 EDT 02/24/2024 21:17 EDT us Provider Outr Resulting Lab IMMUNOLOGY AND SEROL OGY ORDERABLES Final Result [facility] [address] [place] [address] * LYME AB (02/24/2024 14:59 EDT) Pathologist [facility] Lyme Ab Negative Negative 02/25/2024 9:41 EDT [facility] Blood VENOUS BLOOD / Unknown 02/24/2024 14:59 EDT 02/24/2024 21:17 EDT us Provider Outr Resulting Lab IMMUNOLOGY AND SEROL OGY ORDERABLES Final Result Performing Organization Address City/[facility]/ZIP Co de Phone Number [facility] [address] [place] [address] * RHEUMATOID FACTOR (02/24/2024 14:59 EDT) [facility] Rheumatoid Factor <8.6 <12.0 IU/mL 02/24/2024 21:43 EDT [facility] Blood VENOUS BLOOD / Unknown 02/24/2024 14:59 EDT 02/24/2024 21:17 EDT us Provider Outr Resulting Lab CHEMISTRY & BLOOD GA S ORDERABLES Final Result Performing Organization Address [facility] Co de Phone Number [facility] [address] [place] [address] * ANTI NUCLEAR AB (ERIKA), IFA (02/24/2024 14:59 EDT) [facility] ERIKA Interpretation Negative Negative 2023 14:06 EDT [facility] Comment:No titer performed, ERIKA Screen is negative. Blood VENOUS BLOOD / Unknown 02/24/2024 14:59 EDT 02/24/2024 21:17 EDT Narrative [facility] - 02/25/2024 14:06 EDT Results were obtained with the [email or web address] NOVA Lite HEp-2 ERIKA Kit by indirect immunofluorescence. us Provider Outr Resulting Lab IMMUNOLOGY AND SEROL OGY ORDERABLES Final Result Performing Organization Address City/[facility]/ZIP Co de Phone Number [facility] [address] [place] [phone] * OSMOLALITY, URINE (02/15/2024 18:30 EDT) Osmolality, Urine 290 150 - 1,150 mOsm/kg 02/16/2024 16:18 EDT [facility] Urine URINE / Unknown 02/15/2024 1 8:30 EDT 02/16/2024 16:07 EDT us Provider Outr Resulting Lab URINALYSIS ORDERABLE S Final Result [facility] [address] [place] [address] * HEPATITIS C AB W REFLEX TO HCV RNA BY PCR (11/04/2020 14:37 EDT) Pathologist [facility] Hep C Antibody Negative Negative 11/07/2020 10:56 EDT [facility] Blood VENOUS BLOOD / Unknown 11/04/2020 14:37 EDT 11/04/2020 21:45 EDT us Provider Outr Resulting Lab CHEMISTRY & BLOOD GA S ORDERABLES Final Result [facility] [address] [place] [address] from Last 3 Months or Most Recently Relevant to Health Maintenance
--- OUTSIDE RECORDS SUMMARY | 2024-04-30 13:08 | XMS_ITS ---
Author Organization [facility] Address [address] [place], [place] [id number] Care Team Providers Care Mash Preparatory Operator Name Role Phone Veronica De Primary Care Provider [phone] REASON FOR VISIT Depression Meds Encounters Encounter Location Date Provider Diagnosis [address] [address] 03/06/2024 Veronica De Plan Of Treatment No Information Progress Notes * Yessenia LUONG SDOB:[birth year] (74 yo F)Acc No.[id number]:03/06/2024 Patient:?Yessenia LUONG :1950???Age:74 Y???Sex:Female Address:[address], [place] [address] * true * Date:? Generated for Pratik carpio/Kelli/eTransmitting on:?04/30/2024 01:06 PM EST
--- OUTSIDE RECORDS SUMMARY | 2024-04-30 13:08 | XMS_ITS | Encounter Summary ---
Author Organization [facility] Address [address] [place] [address] Care Team Providers Care Manipulator Operator Name Role Phone Unavailable Primary Care Provider Unavailabl e Encounter Details Date Type Department Care Team (Late st Contact Info) Description 04/29/2024 Lab Requisition [facility] Pathology & Laboratory Medicine - [facility] [address] [place] [address] Outr Resulting Lab, Provider Social History Tobacco [...] THYROID ANTIBODIES Routine 04/29/2024 10 :35 EST documented in this encounter Results * T3 FREE (04/29/2024 10:35 EST) T3, Free 3.9 2.8 - 5.3 pg/mL 04/29/2024 17:46 EST [facility] Blood VENOUS BLOOD / Unknown 04/29/2024 10:35 EST 04/29/2024 17:14 EST us Provider Outr Resulting Lab CHEMISTRY & BLOOD GA S ORDERABLES Final Result [facility] [address] [place] [address] * (ABNORMAL) THYROID ANTIBODIES (04/29/2024 10:35 EST) Anti-Thyroglobulin >500(H) <=60 U/mL 2023 18:25 EST [facility] Thyroperoxidase Ab 187(H) <=60 U/mL 2023 18:25 EST [facility] Blood VENOUS BLOOD / Unknown 04/29/2024 10:35 EST 04/29/2024 17:14 EST us Provider Outr Resulting Lab CHEMISTRY & BLOOD GA S ORDERABLES Final Result [facility] [address] [place] [address] documented in this encounter Visit Diagnoses Not on filedocumented in this encounter
--- OUTSIDE RECORDS SUMMARY | 2024-04-30 13:08 | XMS_ITS | Referral Summary ---
Author Organization [facility] Address [address] [place] [address] Care Team Providers Care Cell Biologist Name Role Phone Unavailable Primary Care Provider Unavailabl e Encounters Date Type Department Care Team Description 04/29/2024 Lab Requisition [facility] Pathology & Laboratory [address] [address] Outr Resulting Lab, Provider 04/03/2024 Lab Requisition [facility] Pathology Laboratory [address] [address] Outr Resulting Lab, Provider 02/24/2024 Lab Requisition [facility] Pathology & Laboratory [address] [address] Outr Resulting Lab, Provider 02/16/2024 Lab Requisition [facility] Pathology Laboratory [address] [address] Outr Resulting Lab, Provider from Last 3 [...] 2.8 - 5.3 pg/mL 04/29/2024 17:46 EST [facility] Blood VENOUS BLOOD / Unknown 04/29/2024 10:35 EST 04/29/2024 17:14 EST us Provider Outr Resulting Lab CHEMISTRY & BLOOD GA S ORDERABLES Final Result [facility] [address] [place] [address] * (ABNORMAL) THYROID ANTIBODIES (04/29/2024 10:35 EST) Only the most recent of2 resultswithin the time period is included. Anti-Thyroglobulin >500(H) <=60 U/mL 2023 18:25 EST [facility] Thyroperoxidase Ab 187(H) <=60 U/mL 2023 18:25 EST [facility] Blood VENOUS BLOOD / Unknown 04/29/2024 10:35 EST 04/29/2024 17:14 EST us Provider Outr Resulting Lab CHEMISTRY & BLOOD GA S ORDERABLES Final Result Performing Organization Address City/[facility]/ZIP Co de Phone Number [facility] [address] [place] [address] * HOLD SST (02/24/2024 14:59 EDT) Hold Hold 02/24/2024 22:30 EDT [facility] Blood VENOUS BLOOD / Unknown 02/24/2024 14:59 EDT 02/24/2024 21:17 EDT us Provider Outr Resulting Lab LAB INFO SERVICE AND SUPPORT & PHONE RESULT Final Result Performing Organization Address City/[facility]/ZIP Co de Phone Number [facility] [address] [place] [address] * CCP ANTIBODIES (02/24/2024 14:59 EDT) [facility] CCP Antibodies <2.5 <5.0 U/mL 02/25/2024 9:35 EDT [facility] Blood VENOUS BLOOD / Unknown 02/24/2024 14:59 EDT 02/24/2024 21:17 EDT us Provider Outr Resulting Lab IMMUNOLOGY AND SEROL OGY ORDERABLES Final Result Performing Organization Address City/[facility]/ZIP Co de Phone Number [facility] [address] [place] [address] * LYME AB (02/24/2024 14:59 EDT) [facility] Lyme Ab Negative Negative 02/25/2024 9:41 EDT [facility] Blood VENOUS BLOOD / Unknown 02/24/2024 14:59 EDT 02/24/2024 21:17 EDT us Provider Outr Resulting Lab IMMUNOLOGY AND SEROL OGY ORDERABLES Final Result Performing Organization Address [facility] Co de Phone Number [facility] [address] [place] [address] * RHEUMATOID FACTOR (02/24/2024 14:59 EDT) Pathologist [facility] Rheumatoid Factor <8.6 <12.0 IU/mL 02/24/2024 21:43 EDT [facility] Blood VENOUS BLOOD / Unknown 02/24/2024 14:59 EDT 02/24/2024 21:17 EDT us Provider Outr Resulting Lab CHEMISTRY & BLOOD GA S ORDERABLES Final Result Performing Organization Address [facility] Phone Number [facility] [address] [place] [id number] * ANTI NUCLEAR AB (ERIKA), IFA (02/24/2024 14:59 EDT) [facility] ERIKA Interpretation Negative Negative 2023 14:06 EDT [facility] Comment:No titer performed, ERIKA Screen is negative. Blood VENOUS BLOOD / Unknown 02/24/2024 14:59 EDT 02/24/2024 21:17 EDT Narrative [facility] - 02/25/2024 14:06 EDT Results were obtained with the [employer] NOVA Lite HEp-2 ERIKA Kit by indirect immunofluorescence. us Provider Outr Resulting Lab IMMUNOLOGY AND SEROL OGY ORDERABLES Final Result Performing Organization Address [facility] Co de Phone Number [facility] [address] [place] [address] * OSMOLALITY, URINE (02/15/2024 18:30 EDT) [facility] Osmolality, Urine 290 150 - 1,150 mOsm/kg 02/16/2024 16:18 EDT [facility] Urine URINE / Unknown 02/15/2024 1 8:30 EDT 02/16/2024 16:07 EDT us Provider Outr Resulting Lab URINALYSIS ORDERABLE S Final Result Performing Organization Address [facility] Co de Phone Number [facility] [address] [place] [address] * HEPATITIS C AB W REFLEX TO HCV RNA BY PCR (11/04/2020 14:37 EDT) Hep C Antibody Negative Negative 11/07/2020 10:56 EDT [facility] Blood VENOUS BLOOD / Unknown 11/04/2020 14:37 EDT 11/04/2020 21:45 EDT us Provider Outr Resulting Lab CHEMISTRY & BLOOD GA S ORDERABLES Final Result Performing Organization Address City/[facility]/ZIP Co de Phone Number [facility] [address] [place] [address] from Last 3 Months or Most Recently Relevant to Health Maintenance
--- OUTSIDE RECORDS SUMMARY | 2024-04-30 13:09 | XMS_ITS | Encounter Summary ---
Author Organization [facility] Address [facility] [place] [address] Care Team Providers Care Belt Cleaner Name Role Phone Dana Cedillo DO Primary Care Provider +1- [phone] Encounter Details Date Type Department Care Team (Late st Contact Info) Description 02/13/2024 Telephone Cardiology at [address] [place] [address] Liam Noel MD [facility] [place] [address] Social History Tobacco Use Types Packs/Day Years [...] Care Team (Late st Contact Info) Description 03/16/2025 1:30 PM EDT Office Visit Dermatology at [place] [address] [facility] [address] [place] [address] Emiliano Salinas MD [address], [place] [address] documented as of this encounter Visit Diagnoses Not on filedocumented in this encounter Care Teams Belt Cleaner Relationship Specialty Start Date End Date Dana Cedillo DO [address] [place] [address] PCP - General Family Medicine 10/16/23 documented as of this encounter
--- OUTSIDE RECORDS SUMMARY | 2024-04-30 13:09 | XMS_ITS | Encounter Summary ---
Author Organization [facility] Address [facility] [place] [address] Care Team Providers Care Pencil Sorter Name Role Phone Dana Cedillo DO Primary Care Provider +1- [phone] Encounter Details Date Type Department Care Team (Late st Contact Info) Description 01/22/2024 4:00 PM EDT TH Visit (TeleHealth) [place] [id number] Virginia Everett MD [facility] [place] [address] Hypercalciuria Social History Tobacco Use Types Packs/Day [...] show osteoporosis. I repeated DXA scan at [facility] and it showed normalBMD confirmed by TBS [...] [x] 701-900 mg [] 901-1100 mg [] 1990-6453 mg [] 7475-9596 mg [] Above 1500 mg ROS: Constitutional: [...] WITH FOOD fluticasone propionate (Flonase) 50 mcg/actuation [place], Suspension Every 12 hours. 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 [...] scan with TBS score DXA scan 12/27/2022 ([facility]): Assessment: Yessenia Luong is a 73 y.o. female with PMH of HLD, THERESA, OA, asthma, hypothyroidism, osteopenia and unprovoked, non-traumatic left 2nd metatarsal fracture. Her DXA scan from 12/2022 showed osteopenia but repeated DXA scan done at [facility] with TBS scoring it was confirmed she [...] Level - labs to be sent to [place] - continue vit D - not to [...] 1:30 PM EDT Office Visit Dermatology at [place] [address] [place] [address] Emiliano Salinas MD [address], BAKARI Bhat[place] [address] documented as of this encounter Results * Albumin Level (04/28/2024 5:07 PM EST) Pathologist [facility] Albumin 4.4 3.2 - 5.2 g/dL 04/28/2024 6:05 PM EST [facility] Blood VENOUS BLOOD SPECIMEN / Unknown Venipuncture / Unknown 04/28/2024 5:07 PM EST 04/28/2024 5:08 PM EST Virginia Everett MD CHEMISTRY ORDERABL ES [facility] [place] [address] * Calcium (04/28/2024 5:07 PM EST) [facility] Calcium 9.6 8.5 - 10.5 mg/dL 04/28/2024 6:05 PM EST [facility] Blood VENOUS BLOOD SPECIMEN / Unknown Venipuncture / Unknown 04/28/2024 5:07 PM EST 04/28/2024 5:08 PM EST Virginia Everett MD CHEMISTRY ORDERABL ES [facility] [place] [address] * (ABNORMAL) PTH (04/28/2024 5:07 PM EST) [facility] Parathyroid Hormone 13(L) 15 - 65 pg/mL 04/28/2024 6:04 PM EST [facility] Blood VENOUS BLOOD SPECIMEN / Unknown Venipuncture / Unknown 04/28/2024 5:07 PM EST 04/28/2024 5:08 PM EST Virginia Everett [place] [address] documented in this encounter Visit Diagnoses Diagnosis Hypercalciuria Unspecified disorders of calcium metabolism documented in this encounter Care Teams Pencil Sorter Relationship Specialty Start Date End Date Dana Cedillo DO [address] [place] [address] PCP - General Family Medicine 10/16/23 documented as of this encounter
--- OUTSIDE RECORDS SUMMARY | 2024-04-30 13:09 | XMS_ITS | Encounter Summary ---
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 ? needs biopsy vs serial imaging vs other? Carmen Brunner APRN [address] [place] [address] [facility] Gen Surgery [address] [address] Referral ID Status Reason Start Date Expiration Date V isits Requested Visits Authorized [id number] Closed Consult, Test & Treat PCP Updated and/or Approved 03/16/2024 03/16/2025 99 99 Encounter Details Date Type Department Care Team (Late st Contact Info) Description 03/17/2024 Transcribe Orders eDH Incoming Referrals [phone] Merry Brunneryce A, FACILITIES MANAGER [address] [place] [address] Pancreatic lesion Social History Tobacco Use Types Packs/Day Years [...] 1:30 PM EDT Office Visit Dermatology at [place] [address] [facility] [place] [address] Emiliano Salinas MD [address] [facility], BAKAR[place] [address] Scheduled Referrals Name Type Priority Associated Diagnoses Order Schedule Referral to Hematology and Oncology Outpatient Referral Urgent Pancreatic lesion Ordered: 03/17/2024 documented as of this encounter Visit Diagnoses Diagnosis Pancreatic lesion Unspecified disease of pancreas documented in this encounter Care Teams Fork Lift Technician Relationship Specialty Start Date End Date Dana Cedillo DO [address] [place] [address] PCP - General Family Medicine 10/16/23 documented as of this encounter
--- OUTSIDE RECORDS SUMMARY | 2024-04-30 13:09 | XMS_ITS | Encounter Summary ---
Author Organization [facility] [place] [address] Care Team Providers Care Customer Service Advisor Name Role Phone Dana Cedillo DO Primary Care Provider +1- [phone] Encounter Details Date Type Department Care Team (Late st Contact Info) Description 01/09/2024 [place] [address] Raeann Ortega RN Social History Tobacco Use [...] encounter Miscellaneous Notes * Telephone Encounter - Raeann Ortega RN - 01/09/2024 2:34 PM EDT Copied from [facility] #[id number]. Topic: Specialty Dept CRMs - Test Results >> Jan 09, 2024 2:24 PM Filemon Hatch wrote: Test Results Request Specialist: Virginia Everett MD Relationship (if other than patient-full name): self Ordering Provider: Virginia Everett MD Type of Test: 24 hour urine Date of Test: 11/16/23 Where Was This Test Performed: [facility] documented in this encounter Plan of Treatment Upcoming Encounters Date Type Department Care Team (Late st Contact Info) Description 03/16/2025 1:30 PM EDT Office Visit Dermatology at [place] [address] [facility] [place] [address] Emiliano Salinas MD [address], [place] [address] documented as of this encounter Visit Diagnoses Not on filedocumented in this encounter Care Teams Customer Service Advisor Relationship Specialty Start Date End Date Dana Cedillo DO [address] [place] [address] PCP - General Family Medicine 10/16/23 documented as of this encounter
--- OUTSIDE RECORDS SUMMARY | 2024-04-30 13:09 | XMS_ITS | Encounter Summary ---
Author Organization [facility] Address [address] [place] [address] Care Team Providers Care Carroter Name Role Phone Unavailable Primary Care Provider Unavailabl e Encounter Details Date Type Department Care Team (Late st Contact Info) Description 06/04/[address] [facility] Pathology & Laboratory Medicine - [facility] [address] [place] [address] Outr Resulting Lab, Provider Social History Tobacco [...] 201 - 352 mg/dL 06/05/2023 8:56 EST [facility] Blood VENOUS BLOOD / Unknown 06/04/2023 9:45 EST 06/04/2023 21:09 EST us Provider Outr Resulting Lab CHEMISTRY & BLOOD GA S ORDERABLES Final Result [facility] [address] [place] [address] documented in this encounter Visit Diagnoses Not on filedocumented in this encounter
--- OUTSIDE RECORDS SUMMARY | 2024-04-30 13:09 | XMS_ITS | Encounter Summary ---
Author Organization [facility] Address [address] [place] [address] Care Team Providers Care Wet Primer Powder Blender Name Role Phone Chantell Sharma NP Primary Care Provider [phone] Elier Alvarez MD Unavailable Unavailabl e Reason for Visit * Reason Onset Date Comments Other 07/21/2015 Encounter Details Date Type Department Care Team (Late st Contact Info) Description 07/21/2015 Telephone [facility] Dermatology 3rd Floor [address] [id number] Isaak Lloyd MD Other Social History Tobacco [...] on filedocumented in this encounter Care Teams Wet Primer Powder Blender Relationship Specialty Start Date End Date Chantell Sharma NP PCP - General 07/21/15 07/21/15 Elier Alvarez MD 07/21/15 07/21/15 documented as of this encounter
--- OUTSIDE RECORDS SUMMARY | 2024-04-30 13:09 | XMS_ITS | Encounter Summary ---
Author Organization [facility] Address [address] [place] [address] Care Team Providers Care Auto Wheel Alignment Specialist Name Role Phone Unavailable Primary Care Provider Unavailabl e Encounter Details Date Type Department Care Team (Late st Contact Info) Description 09/12/2005 Results Only [facility] - Maple conversion [address] [place] [address] Neisha Castaneda MD [address] [place] [address] [place] [address] Social History Tobacco Use Types Packs/Day Years [...] ? YESSENIA LUONG ? Accession #: ? [id number] : ? 1950 (Age: 55) ??F ?Collect Date: ? 09/12/2005 Location: ? [facility] ? Receive Date: ? 09/13/2005 Provider: ?NEISHA CASTANEDA MD Copy to: ? Specimen/Source: ?ThinPrep Pap Test, Cervix/Endocervix, processed on TraktoPRO ThinPrep Imaging System, with manual evaluation Last [...] End of Report [facility] 09/12/2005 09/13/2005 us Neisha Castaneda MD PATHOLOGY ORDERABLES Final Resu lt [facility] [address] [place] [address] documented in this encounter Visit Diagnoses Not on filedocumented in this encounter
--- OUTSIDE RECORDS SUMMARY | 2024-04-30 13:09 | XMS_ITS | Encounter Summary ---
Author Organization [facility] [place] [address] Care Team Providers Care Top Collar Maker Name Role Phone Dana Cedillo DO Primary Care Provider [phone]- [phone] Reason for Visit * Reason Onset Date Comments Results 04/29/2024 Lab Results Encounter Details Date Type Department Care Team (Late st Contact Info) Description 04/29/2024 Telephone [place] [address] Lynn Ro MD [facility] [place] [address] Results (Lab Results) Social History Tobacco Use Types Packs/Day Years [...] encounter Miscellaneous Notes * Telephone Encounter - Kim Rodriguez - 04/30/2024 10:06 AM EST Freddie, Laboratory at [facility] called to check on the status of orders being sent for stool samples that have been dropped off. Please fax orders to [phone]. Please call Freddie with any questions. * Telephone Encounter - Becca Gleason - 04/29/2024 8:57 AM EST CLINIC PHONE COVERAGE: Reason for Call: Office notes and labs PCP: Dana Cedillo DO / Treating provider: Dr. Ro Message: Yessenia Hatch Ag called and stated she would like her office notes from 04/28/2024 with labs to please be forwarded to her PCP Dana Cedillo DO. Caller Name (If other than patient): Yessenia Luong Relationship to Patient (if other than self): Patient Callback number: [phone] Best time you are available: Any Route Per Clinic Coverage Page documented in this encounter Plan of Treatment Upcoming Encounters Date Type Department Care Team (Late st Contact Info) Description 03/16/2025 1:30 PM EDT Office Visit Dermatology at [place] [address] [place] [address] Emiliano Salinas MD [address], [place] [address] documented as of this encounter Visit Diagnoses Not on filedocumented in this encounter Care Teams Top Collar Maker Relationship Specialty Start Date End Date Dana Cedillo DO [address] [place] [address] PCP - General Family Medicine 10/16/23 documented as of this encounter
--- OUTSIDE RECORDS SUMMARY | 2024-04-30 13:09 | XMS_ITS | Encounter Summary ---
Author Organization [facility] [place] [address] Care Team Providers Care Structural Metal Worker Name Role Phone Dana Cedillo DO Primary Care Provider +1- [phone] Encounter Details Date Type Department Care Team (Late st Contact Info) Description 02/07/2024 Telephone Cardiology at [address] [address] Ashlyn Celis, RN Social History [...] Nexletol Approved prior auth Reference PA number [id number] documented in this encounter Plan of Treatment Upcoming Encounters Date Type Department Care Team (Late st Contact Info) Description 03/16/2025 1:30 PM EDT Office Visit Dermatology at [place] [address] [place] [address] Emiliano Salinas MD [address], BAKARI [place] [address] documented as of this encounter Visit Diagnoses Not on filedocumented in this encounter Care Teams Structural Metal Worker Relationship Specialty Start Date End Date Dana Cedillo DO [address] [place] [address] PCP - General Family Medicine 10/16/23 documented as of this encounter
--- OUTSIDE RECORDS SUMMARY | 2024-04-30 13:09 | XMS_ITS | Encounter Summary ---
Author Organization [facility] Address [address] [place] [address] Care Team Providers Care Vacuum Bottle Assembler Name Role Phone Unavailable Primary Care Provider Unavailabl e Encounter Details Date Type Department Care Team (Late st Contact Info) Description 04/09/2002 Results Only [facility] - Maple conversion [address] [place] [address] Neisha Schulte, ITALIAN LECTURER [address] [place] [address] Social History Tobacco Use Types [...] ? YESSENIA LUONG ? Accession #: ? [id number] : ? 1950 (Age: 52) ??F ?Collect Date: ? 04/09/2002 Location: ? [facility] ? Receive Date: ? 04/13/2002 Provider: ?NEISHA SCHULTE ITALIAN LECTURER Copy to: ? Specimen/Source: ?ThinPrep Pap Test, [...] End of Report [facility] 04/09/2002 04/13/2002 us Neisha Schulte NP PATHOLOGY ORDERABLES Final Result [facility] [address] [place] [address] documented in this encounter Visit Diagnoses Not on filedocumented in this encounter
--- OUTSIDE RECORDS SUMMARY | 2024-04-30 13:09 | XMS_ITS | Encounter Summary ---
Author Organization [facility] [place] [address] Care Team Providers Care Musical Instruments Assembler Name Role Phone Dana Cedillo DO Primary Care Provider +1- [phone] Encounter Details Date Type Department Care Team (Latest Contact Info) Description 03/06/2024 Travel Social History Tobacco Use Types Packs/Day [...] 1:30 PM EDT Office Visit Dermatology at [place] [address] [place] [address] Emiliano Salinas MD [address], MANINDER A DERMATOLOGY [place], [place] [address] documented as of this encounter Visit Diagnoses Not on filedocumented in this encounter Care Teams Musical Instruments Assembler Relationship Specialty Start Date End Date Dana Cedillo DO [address] [place] [address] PCP - General Family Medicine 10/16/23 documented as of this encounter
--- OUTSIDE RECORDS SUMMARY | 2024-04-30 13:09 | XMS_ITS | Encounter Summary ---
[facility] Address [facility] [place] [address] Care Team Providers Care Painting Technician Name Role Phone CésarDana hamm Mery ROCHE Primary Care Provider +1- [phone] Encounter Details Date Type Department Care Team (Late st Contact Info) Description 01/28/2024 Orders Only Cardiology at [address] [place] [address] Liam Noel MD [facility] [place] [address] Mixed hyperlipidemia Social History Tobacco Use Types [...] 1:30 PM EDT Office Visit Dermatology at [address] [place] [address] Emiliano Salinas MD [address], [place] [address] Scheduled Orders Name Type Priority Associated Diagnoses Orde r Schedule Lipid Panel (Reflex Direct LDL) Lab Routine Mixed hyperlipidemia Expected: 01/28/2024, Expires: 01/27/2025 Uric acid Lab Routine Mixed hyperlipidemia Expected: 01/28/2024, Expires: 07/29/2024 documented as of this encounter Visit Diagnoses Diagnosis Mixed hyperlipidemia documented in this encounter Care Teams Painting Technician Relationship Specialty Start Date End Date Dana Cedillo DO [address] [place] [address] PCP - General Family Medicine 10/16/23 documented as of this encounter
--- OUTSIDE RECORDS SUMMARY | 2024-04-30 13:09 | XMS_ITS | Encounter Summary ---
Author Organization [facility] Address [facility] [place] [address] Care Team Providers Care Drawing Instructor Name Role Phone Dana Cedillo DO Primary Care Provider +1- [phone] Reason for Visit * Consultation (Routine) - Authorized Specialty Diagnoses / Procedures Referred By Veronica brantley Referred To Contact Infectious Diseases Diagnoses Lyme disease, unspecified Arthralgia, unspecified joint Myalgia, unspecified site WAS ON ANTIBIOTICS LAST MONTH Carmen Brunner, ASSISTANT BUSINESS MANAGER [address] [place] [address] [facility] Infectious Dis [address] [place] [address] Referral ID Status Reason Start Date Expiration Date Visits Requested Visits Authorized [id number] Authorized Consult, Test & Treat PCP Updated and/or Approved 02/24/2024 08/23/2024 6 6 Encounter Details Date Type Department Care Team (Late st Contact Info) Description 04/28/2024 3:40 PM EST Office [place] [address] Lynn Ro MD [facility] [place] [address] Other post infection and related fatigue syndromes Social History Tobacco Use Types Packs/Day Years [...] Sign Reading Time Taken Comments Blood Pressure 143/69 04/28/2024 3:37 PM EST Pulse 81 04/28/2024 3:37 PM EST Temperature 36.2 ??C (97.1 ??F) 04/28/2024 3:37 PM ES T Respiratory Rate 18 04/28/2024 3:37 PM EST Oxygen Saturation 98% 04/28/2024 3:37 PM EST Inhaled Oxygen Concentration - - Weight 69.4 kg (153 lb) 04/28/2024 3:37 PM EST Height 158.8 cm (5' 2.5) 04/28/2024 3:37 PM EST Body Mass Index 27.54 04/28/2024 3:37 PM EST documented in this encounter Progress Notes * Lynn Ro MD - 04/28/2024 3:40 PM EST INFECTIOUS DISEASE CONSULT NOTE Reason for Consult: I am seeing Yessenia Luong at the request of Dr. Dana Cedillo/KEISHA Jackson for the evaluation of 088.81 (ICD-9-CM) - A69.20 (ICD-10-CM) - Lyme disease, unspecified 719.40 (ICD-9-CM) - M25.50 (ICD-10-CM) - Arthralgia, unspecified joint 729.1 (ICD-9-CM) - M79.10 (ICD-10-CM) - Myalgia, unspecified site HPI: Yessenia Luong is a 74 y.o. female with history of anxiety, depression chronic fatigue Component Ref Range & Units 2 mo ago Lyme Ab Negative Negative RF, ERIKA, CCP negative Component Ref Range & Units 3 wk ago Anti-Thyroglobulin <=60 U/mL >500 High Thyroperoxidase Ab <=60 U/mL 172 High She came to clinic with several folders full of documents from multiple labs with a lot of treatment protocols for multiple antibiotics (malarone, azithromycin, rifampin, doxycycline and too numerousto count dietary supplements). She has been following with a Dr. Chapa of [facility] in [facility]. She states she was dx with Lyme disease 2.5 y ago and a PCP (Dr. Campbell) treated her with doxycyclinefor 6 weeks. She states that the Lyme caused depression, anxiety, bone aches. It didn't really go away. Dr. Chapa has a business in [place] and [facility], she stated, and she told me He has been treating lyme for 22 years. He told her she still has the strands of the borealis and the two barbiosis. Dr. Cardoso documented CDC positive for lyme disease and babsia and bartonella- however the paperwork presented by the patient showed these tests were negative. Per documentation provided, Dr. Cardoso recommended sequential treatment protocols tx for lyme and babesia first with oral antibiotics and an antimalaria supplement with probiotics. Due to hx of depression and anxiety, he wrote that hewill not recommend malarone due to SE. The patient reports that she took prescribed doxycycline, mepron and zithromax. Now on multiple oral supplements and continued rifampin, doxycycline. Allergies Allergen Reactions Atorvastatin Calcium Other (See [...] Comments) unspecified Trimethoprim Other (See Comments) Unspecified Sulfasalazine Other Reaction(s): Not available, Other: See Comments Fenofibrate Voltaren [Diclofenac Sodium] Pertinent medications: Current Outpatient Medications Medication Instructions acetaminophen (TYLENOL) 1,000 mg, Oral, EVERY 6 HOURS PRN azithromycin (Zithromax) 250 mg tablet Oral, DAILY, Day1:take 2 tablets daily, Day 2-5:Take one tablet daily calcium carbonate/vitamin D3 (CALCIUM WITH VITAMIN D3 ORAL) Oral, DAILY cholecalciferol, Vitamin D3, 25 mcg (1,000 unit) Capsule TAKE ONE CAPSULE BY MOUTH EVERY DAY DIRECTED Doxycycline Hyclate (Doryx) [address] tablet Oral EPINEPHrine 0.3 mg/0.3 mL Auto-Injector PRN estradiol (ESTRACE) 0.01 % (0.1 mg/gram) Cream APPLY 1 GRAM VAGINALLY TWICE A WEEK DIRECTED fexofenadine (EVANGELINA) 180 mg, Oral, DAILY fluticasone propionate (Flonase) 50 mcg/actuation [place], Suspension EVERY 12 HOURS hydroCHLOROthiazide (ESIDRIX) 50 mg, Oral, DAILY hydroquinone ([place]) 4 % Cream Apply thin layer topically twice daily basis to face for 6 weeks on then hold. October repeat cycle after 3 weeks off. icosapent ethyL (VASCEPA) 2 g, Oral, 2 TIMES DAILY levothyroxine (Synthroid) 50 mcg tablet TAKE ONE TABLET BY MOUTH EVERY MORNING ON AN EMPTY STOMACH Milk Thistle 175 mg, Oral, DAILY minoxidiL (Loniten) 2.5 mg tablet Take one tablet by mouth daily Nexletol 180 mg, Oral, DAILY PROVENTIL HFA 90 mcg/actuation HFA Aerosol Inhaler inhale 2 puffs by mouth if needed rifAMPin (RIFADIN) 300 mg, Oral Saccharomyces boulardii 10 billion cell Capsule Oral scopolamine (Transderm-Scop) 1 mg over 3 days patch 3 day APPLY ONE PATCH TO SKIN EVERY 3 DAYS NEEDED FOR MOTION SICKNESS soybean, fermented (Nattokinase) 50 mg Capsule Oral traZODone (DESYREL) 200 mg, Oral, NIGHTLY tretinoin (RETIN-A) 0.025 % Cream Apply thin layer topically every other night to face. VITAMIN B COMPLEX ORAL 1 capsule, Oral, EVERY MORNING Vraylar 1.5 mg capsule TAKE ONE CAPSULE BY MOUTH EVERY EVENING WITH FOOD Patient Active Problem List Diagnosis Code Androgenetic [...] G25.81 Mixed hyperlipidemia E78.2 Urinary urgency R39.15 Past Medical History: Diagnosis Date Allergic rhinitis due to pollen 09/03/2022 Allergic rhinoconjunctivitis 09/01/2013 Allergy to insect stings 09/01/2013 Androgenetic alopecia 04/24/2011 Chronic fatigue syndrome 09/03/2022 Environmental allergies 09/01/2013 Familial hypercholesterolemia 09/03/2022 History of Lyme disease 09/03/2022 History of recurrent ear infection 09/03/2022 History of total abdominal hysterectomy 09/03/2022 Hypercholesteremia Hypothyroidism Macromastia 02/08/2015 Mild intermittent asthma 09/01/2013 Obesity (BMI 30.0-34.9) THERESA (obstructive sleep apnea) 11/21/2011 moderate, sleep mouth guard Osteoarthritis 11/22/2011 Rosacea 04/24/2011 Seasonal allergies Status post abdominoplasty 07/29/2015 Status post bilateral breast reduction 06/28/2015 Urinary incontinence, urge 01/08/2012 Venous insufficiency of both lower extremities 02/28/2022 Past Surgical History: Procedure Laterality Date APPENDECTOMY SECTION 1979, 1981 Complciated by infection PRO BREAST REDUCTION Bilateral 06/14/2015 REDUCTION MAMMOPLASTY, ADAM performed by Carlee Marvin MD at [facility] OR PRO EXCISE EXCESS SKIN TISSUE, ABDOMEN N/A 06/14/2015 ABDOMINOPLASTY performed by Carlee Marvin MD at [facility] MA[facility] OR PRO SUCT SARAH LIPECTOMY, TRUNK Bilateral 06/14/2015 SUCTION ASSISTED LIPECTOMY,TRUNK performed by Carlee Marvin MD at [facility] MA[facility] OR [facility] 1988 Allergy to progesterone TONSILLECTOMY VAGINAL PROLAPSE REPAIR 04/11/2007 Dr. Castaneda, at [facility] ROS: Gen: + mild stomache upset HEENT: No headaches, vision changes. dysphagia, lymphadenopathy. Pulm: No cough, wheeze, dyspnea, SOB. Cardio: No chest pain, palpitations. GI: No n/v/c/d, abdominal pain. : No dysuria, hematuria or change in urinary frequency/volume. MSK: +arthralgias, +myalgias, no edema. Neuro: No dizziness, vertical, syncope, problems with coordination, memory problems. Skin: No rashes. Social History: , has grandchildren and children Family History: Noncontributory Physical Exam: Temp: [36.2 ??C (97.1 ??F)] Heart Rate: [81] BP: (143)/(69) Resp: [18] SpO2: [98 %] Gen: WNWDWM in NAD HEENT: NC/AT, PERRL, EOMI Pulm: CTA no wheezing or cough Cardio: rrr no murmurs GI: SNT Back: no CVAT Extremities:No CCE; no joint effusions redness or warmth Neuro:A and O X 3, no facial asymmetry, speech fluent, normal gait grossly nonfocal. 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 Pancreatic duct not dilated:reimaging every 6 months for 2 years, then every 1 yr for 2 yrs, then every 2 yrs for 6 yrs is recommended Vit B12 1993 (high); HIV neg, syphilis mario negative on 04/28/24 H. 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 There is no evidence for lyme disease nor any other tick borne illness, though I re ordered a Tick panel pcr per her request. She has some stomach upset likely related to taking multiple unnecessary antibiotics. Recommendation: STOP taking rifampin, doxycycline, azithromycin, mepron: you do not need these medicines and they are doing more harm than good, possibly causing stomach upset and drug drug interactions I will call you with results of the stool test for helicobacter pylori and the tick panel when theyare available. Consider discussing possible use of duloxetine (cymbalta) with your primary care doctor- if your doctor feels it is safe your you, it may help with fibromyalgia type symptoms. Alternatively consider lexapro for depression and anxiety as your PCP recommends. You should certainly follow up with the psychologist televisits that have been recommended by your pcp. No need to schedule infectious disease clinic follow up unless one of the above tests comes back positive, or a new infectious disease question arises. Lynn Ro MD Infectious Diseases Staff Physician [facility] documented in this encounter Plan of Treatment Upcoming Encounters Date Type Department Care Team (Late st Contact Info) Description 03/16/2025 1:30 PM EDT Office Visit Dermatology at [place] [address] [place] [address] Emiliano Salinas MD [address], [place] [address] Scheduled Orders Name Type Priority Associated Diagnoses Orde r Schedule Helicobacter pylori Antigen Stool Microbiology Routine Other post infection and related fatigue syndromes Ordered: 04/28/2024 documented as of this encounter Results * Acute Tick Borne Infection Panel (04/28/2024 5:07 PM EST) Anaplasma phagocytophilum PCR Not Detected 04/29/2024 4:33 PM EST [facility] Anaplasma phagocytophilum Interpretation A result of 'Detected' indicates that DNA from Anaplasma phagocytophilum is present in tested sample. A result of 'Not Detected' indicates the absence of DNA from this organism or a concentration of Anaplasma phagocytophilum DNA below the limit of detection of this assay. A result of 'Indeterminate' means that we are unable to determine the presence or absence of DNA for this organism in this sample. Possible reasons for an indeterminate include low concentrations of the organism in the sample or potential genetic alterations that could partially interfere with the performance of this assay. METHODS: This test was performed using multiplex real-time PCR to interrogate DNA isolated from whole blood for the groEL gene found in Anaplasma phagocytophilum. The sensitivity of the assay is approximately 10 genome equivalents per PCR reaction. 04/29/2024 4:33 PM [facility] Ehrlichia chaffeensis PCR Not Detected 04/29/2024 4:33 PM [facility] Ehrlichia chaffeensis Interpretation A result of 'Detected' indicates that DNA from Ehrlichia chaffeensis is present in tested sample. A result of 'Not Detected' indicates the absence of DNA from this organism or a concentration of Ehrlichia chaffeensis DNA below the limit of detection of this assay. A result of 'Indeterminate' means that we are unable to determine the presence or absence of DNA for this organism in this sample. Possible reasons for an indeterminate include low concentrations of the organism in the sample or potential genetic alterations that could partially interfere with the performance of this assay. METHODS: This test was performed using multiplex real-time PCR to interrogate DNA isolated from whole blood for the 16S rRNA gene found in Ehrlichia chaffeensis. The sensitivity of the assay is approximately 10 genome equivalents per PCR reaction. 04/29/2024 4:33 PM [facility] Babesia microti PCR Not Detected 04/29/2024 4:33 PM [facility] Babesia microti Interpretation A result of 'Detected' indicates that DNA from Babesia microti is present in tested sample. A result of 'Not Detected' indicates the absence of DNA from this organism or a concentration of Babesia microti DNA below the limit of detection of this assay. A result of 'Indeterminate' means that we are unable to determine the presence or absence of DNA for this organism in this sample. Possible reasons for an indeterminate include low concentrations of the organism in the sample or potential genetic alterations that could partially interfere with the performance of this assay. METHODS: This test was performed using multiplex real-time PCR to interrogate DNA isolated from whole blood for the 18S rRNA gene found in Babesia microti. The sensitivity of the assay is approximately 10 genome equivalents per PCR reaction. 04/29/2024 4:33 PM [facility] Borrelia miyamotoi PCR Not Detected 04/29/2024 4:33 PM EST [facility] Borrelia miyamotoi Interpretation A result of 'Detected' indicates that DNA from Borrelia miyamotoi is present in tested sample. A result of 'Not Detected' indicates the absence of DNA from this organism or a concentration of Borrelia miyamotoi DNA below the limit of detection of this assay. A result of 'Indeterminate' means that we are unable to determine the presence or absence of DNA for this organism in this sample. Possible reasons for an indeterminate include low concentrations of the organism in the sample or potential genetic alterations that could partially interfere with the performance of this assay. METHODS: This test was performed using multiplex real-time PCR to interrogate DNA isolated from whole blood for the flaB gene found in Borrelia miyamotoi. The sensitivity of the assay is approximately 10 genome equivalents per PCR reaction. 04/29/2024 4:33 PM [facility] Acute Tick Panel Test Comment LIMITATIONS AND DISCLAIMERS: Although unlikely rare variants (known or unknown) have the potential to interfere with the performance of this test producing false negative or false positive results. Additionally it is possible that this test may provide positive results for species closely related to the ones tested for in this assay. When results are not consistent with other clinical observations or test results additional testing should be considered. This test detects DNA sequences and cannot discriminate between live and organisms. 04/29/2024 4:33 PM [facility] Disclaimer This test was developed and its performance characteristics determined by [facility] ([facility]) at [facility], as required by the Clinical Laboratory Improvement Amendments (CLIA'88) regulations. It has not been cleared or approved for specific uses by the U.S. Food and Drug Administration (FDA). The FDA has determined that such clearance or approval is not necessary. This test is used for clinical purposes. It should not be regarded as investigational or for research. Pursuant to the requirements of CLIA'88, this laboratory has established and verified the test's accuracy and precision. 04/29/2024 4:33 PM [facility] Blood VENOUS BLOOD SPECIMEN / Unknown Venipuncture / Unknown 04/28/2024 5:07 PM EST 04/28/2024 5:08 PM EST Lynn Ro MD MOLECULAR ORDERABLES Performing Organization Address City/[facility]/ZIP Co de Phone Number [facility] [place] [address] * Syphilis Screening Antibody with reflex RPR (04/28/2024 5:07 PM EST) Pathologist [facility] Syphilis IgG/IgM Negative Negative 04/29/2024 12:21 AM EST [facility] Blood VENOUS BLOOD SPECIMEN / Unknown Venipuncture / Unknown 04/28/2024 5:07 PM EST 04/28/2024 5:08 PM EST Lynn Ro MD CHEMISTRY ORDERABLES Performing Organization Address [facility]/ZIP Co de Phone Number [facility] [place] [address] * HIV Screen, 4th Generation ([facility]/APD/NLH) (04/28/2024 5:07 PM EST) [facility] HIV Ab/Ag Screen Negative Negative 04/29/2024 12:58 AM EST [facility] Comment:Low Risk of HIV Infe ction. Blood VENOUS BLOOD SPECIMEN / Unknown Venipuncture / Unknown 04/28/2024 5:07 PM EST 04/28/2024 5:08 PM EST Narrative [facility] - 04/29/2024 12:58 AM EST This 4th Generation HIV test screens for the presence of the HIV-1 p24 antigen as well as antibodies reactive against HIV-1 and HIV-2. A negative screen does not rule out an acute HIV infection. If acute HIV infection is suspected ??testing should be repeated in 2 - 3 weeks or HIV nucleic acid testing performed. Lynn Ro MD CHEMISTRY ORDERABLES Performing Organization Address City/[facility]/ZIP Co de Phone Number [facility] [place] [address] * (ABNORMAL) Vitamin B12 (04/28/2024 5:07 PM EST) Pathologist [facility] Vitamin B12 1,993(H) 232 - 1,245 pg/mL 04/28/2024 11:50 PM EST [facility] Blood VENOUS BLOOD SPECIMEN / Unknown Venipuncture / Unknown 04/28/2024 5:07 PM EST 04/28/2024 5:08 PM EST Lynn Ro MD CHEMISTRY ORDERABLES Performing Organization Address City/State/[facility] Co de Phone Number [facility] [place] [address] documented in this encounter Visit Diagnoses Diagnosis Other post infection and related fatigue syndromes documented in this encounter Care Teams Drawing Instructor Relationship Specialty Start Date End Date Dana Cedillo DO [address] [place] [address] PCP - General Family Medicine 10/16/23 documented as of this encounter
--- OUTSIDE RECORDS SUMMARY | 2024-04-30 13:09 | XMS_ITS | Encounter Summary ---
Author Organization [facility] Address [facility] [place] [address] Care Team Providers Care Document Controller Name Role Phone Dana Cedillo DO Primary Care Provider +1- [phone] Encounter Details Date Type Department Care Team (Late st Contact Info) Description 02/27/2024 Telephone Cardiology at [address] [address] Liam Noel MD [facility] [place] [address] Social History Tobacco Use Types Packs/Day Years [...] Telephone Encounter - Ashlyn Celis RN - 03/03/2024 10:54 AM EDT Call to Yessenia - Dr. Noel' message is - no changes at this time. May follow up with him as needed only. Lipid level and Uric acid level can be followed by her PCP. * Telephone Encounter - Whitney Alvarez RN - 02/27/2024 1:[address] Noel: Since the current regimen is working well, she can follow up prn. Her PCP can track her lipid labs and uric acid levels. * Telephone Encounter - Whitney Alvarez RN - 02/27/2024 11:58 AM EDT Called patient and gave her Dr. Noel message. She is wondering if she needs further follow up since no changes are being made. Patient has cancelled 6 visits since her 03/18/23 office visit. * Telephone Encounter - Whitney Alvarez RN - 02/27/2024 11:[address] Noel: Labs reviewed. LDL has decreased nicely. What dosage of nexletol is she on? Would recommend continuing current therapy. Would not recommend any changes * Telephone Encounter - Whitney Alvarez RN - 02/27/2024 11:02 AM EDT External lipids entered. Latest Reference Range & Units 08/01/22 07:52 10/24/22 00:00 03/14/23 10:00 Cholesterol, Total mg/dL 366 350 (E) 280 (E) HDL Cholesterol mg/dL 91 75 (E) 74 (E) Cholesterol/HDL Ratio ratio 4.0 Triglyceride mg/dL 195 210 (E) 100 (E) LDL Cholesterol mg/dL 236 232.8 (E) 186.8 (E) (E): External lab result * Telephone Encounter - KerrieSusanrebecca Bella - 02/27/2024 8:14 AM EDT Patient left a message on the answering service at 5:09 on 02-25. She said she had her cholesterol done. She needs an appointment or a telephone appointment to discuss what she should. If she needs to increase medications. Please call her @ [phone] documented in this encounter Plan of Treatment Upcoming Encounters Date Type Department Care Team (Late st Contact Info) Description 03/16/2025 1:30 PM EDT Office Visit Dermatology at [address] [place] [address] Emiliano Salinas MD [address], [place] [address] documented as of this encounter Procedures Procedure Name Priority Date/Time Associated Diagnosis Comments LIPID EXTERNAL LAB PANEL Routine 01/28/2024 documented in this encounter Results * Lipid External Lab Panel (01/28/2024) Cholesterol, Total - External 252 Triglycerides - External 179 HDL - External 91 LDL Cholesterol - External 125 Historical Provider EXTERNAL LAB HERMELINDA CURTIS documented in this encounter Visit Diagnoses Not on filedocumented in this encounter Care Teams Document Controller Relationship Specialty Start Date End Date Dana Cedillo DO [address] [place] [address] PCP - General Family Medicine 10/16/23 documented as of this encounter
--- OUTSIDE RECORDS SUMMARY | 2024-04-30 13:09 | XMS_ITS | Encounter Summary ---
Author Organization [facility] Address [address] [place] [address] Care Team Providers Care Wedger And Gluer Name Role Phone Chantell Sharma NP Primary Care Provider [phone] Chantell Sharma NP Unavailable [phone] Encounter Details Date Type Department Care Team (Late st Contact Info) Description 11/04/2020 Lab Requisition [facility] Pathology & Laboratory Medicine - [address] [id number] Outr Resulting Lab, Provider Social History Tobacco [...] C Antibody Negative Negative 11/07/2020 10:56 EDT [facility] Blood VENOUS BLOOD / Unknown 11/04/2020 14:37 EDT 11/04/2020 21:45 EDT us Provider Outr Resulting Lab CHEMISTRY & BLOOD GA S ORDERABLES Final Result [facility] [address] [place] [address] documented in this encounter Visit Diagnoses Not on filedocumented in this encounter Care Teams Wedger And Gluer Relationship Specialty Start Date End Date Chantell Sharma NP PCP - General 07/22/15 03/18/22 Chantell Sharma NP 07/22/15 03/18/22 documented as of this encounter
--- OUTSIDE RECORDS SUMMARY | 2024-04-30 13:09 | XMS_ITS | Encounter Summary ---
Author Organization [facility] Address [facility] [place] [address] Care Team Providers Care Sewage Treatment Plant Operator Name Role Phone Dana Cedillo DO Primary Care Provider [phone] Encounter Details Date Type Department Care Team (Late st Contact Info) Description 03/20/2024 Telephone [place] [phone] Palak Davis MD [facility] [place] [address] Social History Tobacco Use Types Packs/Day Years [...] encounter Miscellaneous Notes * Telephone Encounter - Palak Davis MD - 03/20/2024 10:29 AM EDT Images from the original note were not included. I received a notification with regard to this referral from Carmen Brunner-to general surgery for evaluation of pancreas cyst. I reviewed the CT and recent MRI images. 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 I placed a referral to GI for EUSfor evaluation and diagnosis. Aniceto Davis MD 03/20/2024 10:31 AM Amina Lozoya Kerrington D, MD; Suzan Davis, Referral for Pancreas Lesion. Please review and advise on scheduling. CT A/P: 02/15/2024 - [facility] report on file/ imaging here MRI ABD: 03/16/2024- report on file/ imaging here Thanks! Maribell documented in this encounter Plan of Treatment Upcoming Encounters Date Type Department Care Team (Late st Contact Info) Description 03/16/2025 1:30 PM EDT Office Visit Dermatology at [place] [address] [facility] [place] [address] Emiliano Salinas MD [address] [facility] [address], [place] [address] documented as of this encounter Visit Diagnoses Not on filedocumented in this encounter Care Teams Sewage Treatment Plant Operator Relationship Specialty Start Date End Date Dana Cdeillo DO [address] [place] [address] PCP - General Family Medicine 10/16/23 documented as of this encounter
--- OUTSIDE RECORDS SUMMARY | 2024-04-30 13:09 | XMS_ITS | Encounter Summary ---
Author Organization [facility] Address [facility] [place] [place] [address] Care Team Providers Care Radio Frequency Engineer Name Role Phone Nguyen Danarebecca Ordonez DO Primary Care Provider [phone] Encounter Details Date Type Department Care Team (Late st Contact Info) Description 02/04/2024 Transcribe Orders Neurosurgery at [facility] [address] [facility] [place] [phone] Nell Fitch DO [address] [facility] [address] [place] [address] Social History Tobacco Use Types Packs/Day Years [...] 1:30 PM EDT Office Visit Dermatology at [place] [address] [facility] [place] [address] Emiliano Salinas MD [address] [place] [address] RD, MANINDER Bhat[place] [address] documented as of this encounter Visit Diagnoses Not on filedocumented in this encounter Care Teams Radio Frequency Engineer Relationship Specialty Start Date End Date Dana Cedillo DO [address] [place] [address] PCP - General Family Medicine 10/16/23 documented as of this encounter
--- OUTSIDE RECORDS SUMMARY | 2024-04-30 13:09 | XMS_ITS | Encounter Summary ---
Author Organization [facility] Address [address] [place] [address] Care Team Providers Care Floor Hand Name Role Phone Unavailable Primary Care Provider Unavailabl e Encounter Details Date Type Department Care Team (Late st Contact Info) Description 08/05/2023 Lab Requisition [facility] Pathology & Laboratory Medicine - [facility] [address] [place] [address] Outr Resulting Lab, Provider Social History Tobacco [...] Urine 7.4 See Note mg/dL 08/06/2023 9:08 [facility] Comment: NOTE: Reference range not established Calcium, Urine 24 hr 287 100 - 300 mg/24hr 08/06/2023 9:08 [facility] Comment:Reference range assu mes a normal daily intake of calcium between 600 - 800 mg/day. Urine Volume 3,875 mL 08/06/2023 9:08 [facility] Urine Collection Period 24.0 Hours 08/06/2023 9:08 [facility] Urine 24 HOUR URINE SPECIMEN / Unknown 08/05/2023 8:00 EST 08/05/2023 21:36 EST us Provider Outr Resulting Lab URINALYSIS ORDERABLE S Final Result [facility] [address] [place] [address] documented in this encounter Visit Diagnoses Not on filedocumented in this encounter
--- OUTSIDE RECORDS SUMMARY | 2024-04-30 13:09 | XMS_ITS | Encounter Summary ---
Author Organization [facility] Address [facility] [place] [address] Care Team Providers Care Laborer Cook House Name Role Phone Dana Cedillo DO Primary Care Provider [phone] Encounter Details Date Type Department Care Team (Late st Contact Info) Description 01/23/2024 Telephone Cardiology at [address] [place] [address] Liam Noel MD [facility] [place] [address] Social History Tobacco Use Types Packs/Day Years [...] Per Yessenia she is [facility] a[facility] for her Lyme disease and she [...] 1:30 PM EDT Office Visit Dermatology at [place] [address] [facility] [place] [address] Emiliano Salinas MD [address] [facility], BAKARI Bhatt [place] [address] documented as of this encounter Visit Diagnoses Not on filedocumented in this encounter Care Teams Laborer Cook House Relationship Specialty Start Date End Date Dana Cedillo DO [address] [place] [address] PCP - General Family Medicine 10/16/23 documented as of this encounter
--- OUTSIDE RECORDS SUMMARY | 2024-04-30 13:09 | XMS_ITS | Encounter Summary ---
Author Organization [facility] [place] [address] Care Team Providers Care Road Repairer Name Role Phone Dana Cedillo Primary Care Provider [phone]- [phone] Encounter Details Date Type Department Care Team (Late st Contact Info) Description 03/13/2024 Refill Dermatology at [address] [address] Jackelin Sam RN Social History Tobacco Use Types Packs/Day [...] 1:30 PM EDT Office Visit Dermatology at [address] [address] Emiliano Salinas MD [address] [place] [address], [place] [address] documented as of this encounter Visit Diagnoses Not on filedocumented in this encounter Care Teams Road Repairer Relationship Specialty Start Date End Date Dana Cedillo DO [address] [place] [address] PCP - General Family Medicine 10/16/23 documented as of this encounter
--- OUTSIDE RECORDS SUMMARY | 2024-04-30 13:09 | XMS_ITS | Encounter Summary ---
Author Organization [facility]eter [facility] [place] [address] Care Team Providers Care It Quality Assurance Analyst Name Role Phone Dana Cedillo DO Primary Care Provider +1- [phone] Encounter Details Date Type Department Care Team (Late st Contact Info) Description 04/28/2024 Telephone [place] [address] None None Social History Tobacco Use Types Packs/Day Years [...] encounter Miscellaneous Notes * Telephone Encounter - Becca Gleason - 04/29/2024 8:53 AM EST Patient calling and states the fax number to [facility] Lab is f-[phone]. Patient requesting call with order has been sent. * Telephone Encounter - Maricruz Hutchinson - 04/28/2024 4:52 PM EST CLINIC PHONE COVERAGE: Reason for Call: Orders PCP: Dana Cedillo DO / Treating provider: Lynn Ro MD Message: Yessenia calling to request the following orders be placed. Type of Request: [x] Send orders Type/Name of Order: Labs If Labs and Imaging list name of specific test(s): Helicobacter pylori Antigen Stool Date of Lab/Imaging/Testing Appt: Not yet scheduled. She is getting the Kit from lab today and wondering if she can have the order sent to [facility] so she does not have to drive back to to drop offthe sample. Date of Provider Appt: Not yet scheduled Appt Type with Provider: N/A Patient Requesting to Have Orders Sent to Facility Outside of [facility]: Yes If Yes, Name of Facility: [facility] Address: [address] [place] [address] Phone #: [phone] Fax #: not listed Caller Name (If other than patient): Yessenia Relationship to Patient (if other than self): Patient Callback number: [phone] Best time you are available: Any Route Per Clinic Coverage Page documented in this encounter Plan of Treatment Upcoming Encounters Date Type Department Care Team (Late st Contact Info) Description 03/16/2025 1:30 PM EDT Office Visit Dermatology at [place] [address] [place] [address] Emiliano Salinas MD [address] [facility], [place] [address] documented as of this encounter Visit Diagnoses Not on filedocumented in this encounter Care Teams It Quality Assurance Analyst Relationship Specialty Start Date End Date Dana Cedillo DO [address] [place] [address] PCP - General Family Medicine 10/16/23 documented as of this encounter
--- OUTSIDE RECORDS SUMMARY | 2024-04-30 13:09 | XMS_ITS | Encounter Summary ---
Author Organization [facility] [place] [address] Care Team Providers Care Mill Feeder Name Role Phone Nguyen Danarebecca Ordonez DO Primary Care Provider +1- [phone] Encounter Details Date Type Department Care Team (Late st Contact Info) Description 03/16/2024 Ancillary Procedure Radiology Library at [facility] [place] [address] Palak Davis MD [facility] [place] [address] Social History Tobacco Use Types Packs/Day Years [...] 1:30 PM EDT Office Visit Dermatology at [place] [address] [facility] [place] [address] Emiliano Salinas MD [address] [address], [place] [address] documented as of this encounter Procedures Procedure Name Priority Date/Time Associated Diagnosis Comments FILM LIBRARY STORAGE ONLY MR ABDOMEN Routine 03/16/2024 12:00 AM EDT documented in this encounter Results * Film Library- Storage Only MR Abdomen (03/16/2024 12:00 AM EDT) Narrative [facility][NOTE 3] - 03/19/2024 2:14 PM EDT This exam is auto-finalizing. It's purpose is for storage only. Palak Davis MD [facility] FILM LIBRARY O RDERABLES [place], [place] documented in this encounter Visit Diagnoses Not on filedocumented in this encounter Care Teams Mill Feeder Relationship Specialty Start Date End Date Dana Cedillo DO [address] [place] [address] PCP - General Family Medicine 10/16/23 documented as of this encounter
--- OUTSIDE RECORDS SUMMARY | 2024-04-30 13:09 | XMS_ITS | Encounter Summary ---
Author Organization [facility] Address [address] [place] [address] Care Team Providers Care Vp Of Global Marketing Name Role Phone Unavailable Primary Care Provider Unavailabl e Encounter Details Date Type Department Care Team (Late st Contact Info) Description 03/20/2023 Lab Requisition [facility] Pathology & Laboratory Medicine - [facility] [address] [place] [address] Outr Resulting Lab, Provider Social History Tobacco [...] IGA <1.2 <4.0 U/mL 03/21/2023 12:51 EDT [facility] Comment: A negative result may be due to IgA deficiency and does not rule out celiac disease. ? Negative: ??<4.0 U/mL ? Weak Positive: ??4.0 - 10.0 U/mL ? Positive: ??>10.0 U/mL Results were obtained with the INOVA QUANTA Lite R h-tTG IgA MOHAMUD assay on the [employer] DSX. IgA 243 85 - 499 mg/dL 03/21/2023 12:51 EDT [facility] Celiac Disease Interpretation Negative Serology. Celiac disease unlikely. Approximately 10% of patients with celiac disease are seronegative. Patients who are already adhering to a gluten-free diet may also be seronegative. If celiac disease is highly clinically suspected, referral to gastroenterology for additional evaluation is recommended. 03/21/2023 12:51 EDT [facility] Blood VENOUS BLOOD / Unknown 03/20/2023 11:00 EDT 03/20/2023 21:56 EDT us Provider Outr Resulting Lab IMMUNOLOGY AND SEROL OGY ORDERABLES Final Result [facility] [address] [place] [address] documented in this encounter Visit Diagnoses Not on filedocumented in this encounter
--- OUTSIDE RECORDS SUMMARY | 2024-04-30 13:09 | XMS_ITS | Encounter Summary ---
Author Organization [facility] Address [address] [place] [address] Care Team Providers Care Chiropractor Sole Practitioner Name Role Phone Unavailable Primary Care Provider Unavailabl e Encounter Details Date Type Department Care Team (Late st Contact Info) Description 04/03/2024 Lab Requisition [facility] Pathology & Laboratory Medicine - [facility] [address] [place], [place] [address] Outr Resulting Lab, Provider Social History Tobacco [...] Date/Time Associated Diagnosis Comments T3 FREE Routine 04/03/2024 14:53 EDT THYROID ANTIBODIES Routine 04/03/2024 14 :53 EDT documented in this encounter Results * T3 FREE (04/03/2024 14:53 EDT) T3, Free 3.7 2.8 - 5.3 pg/mL 04/03/2024 22:09 EDT [facility] Blood VENOUS BLOOD / Unknown 04/03/2024 14:53 EDT 04/03/2024 21:38 EDT us Provider Outr Resulting Lab CHEMISTRY & BLOOD GA S ORDERABLES Final Result [facility] [address] [place] [address] * (ABNORMAL) THYROID ANTIBODIES (04/03/2024 14:53 EDT) Anti-Thyroglobulin >500(H) <=60 U/mL 2023 22:51 EDT [facility] Thyroperoxidase Ab 172(H) <=60 U/mL 2023 22:51 EDT [facility] Blood VENOUS BLOOD / Unknown 04/03/2024 14:53 EDT 04/03/2024 21:38 EDT us Provider Outr Resulting Lab CHEMISTRY & BLOOD GA S ORDERABLES Final Result Performing Organization Address [facility] Co de Phone Number [facility] [address] [place], [place] [id number] documented in this encounter Visit Diagnoses Not on filedocumented in this encounter
--- OUTSIDE RECORDS SUMMARY | 2024-04-30 13:09 | XMS_ITS | Encounter Summary ---
Author Organization [facility] Address [address] [place] [address] Care Team Providers Care Door To Door Sales Representative Name Role Phone Unavailable Primary Care Provider Unavailabl e Encounter Details Date Type Department Care Team (Late st Contact Info) Description 02/16/20[address] [facility] Pathology & Laboratory Medicine - [facility] [address] [place], [place] [address] Outr Resulting Lab, Provider Social History Tobacco [...] 150 - 1,150 mOsm/kg 02/16/2024 16:18 EDT [facility] Urine URINE / Unknown 02/15/2024 1 8:30 EDT 02/16/2024 16:07 EDT us Provider Outr Resulting Lab URINALYSIS ORDERABLE S Final Result [facility] [address] [place] [address] documented in this encounter Visit Diagnoses Not on filedocumented in this encounter
--- OUTSIDE RECORDS SUMMARY | 2024-04-30 13:09 | XMS_ITS | Encounter Summary ---
Author Organization [facility] Address [address] [place] [address] Care Team Providers Care Legislative Director Name Role Phone Chantell Sharma NP Primary Care Provider [phone] Chantell Sharma NP Unavailable [phone] Encounter Details Date Type Department Care Team (Late st Contact Info) Description 06/19/2019 Lab Requisition [facility] Pathology & Laboratory Medicine - [address] [address] Unknown, Provider, Social History Tobacco Use Types [...] ova and parasites seen. 06/22/2019 11:21 EST [facility] Feces 06/19/2019 8:00 EST 06/19/2019 21:45 EST Narrative [facility] - 06/22/2019 11:21 EST (If Cryptosporidium, Cyclospora, or Microsporidium are suspected, specific tests must be requested.) Single negative specimen does not rule out the possibility of a parasitic infection. us Provider Unknown MICROBIOLOGY - GENERAL ORDER OSMANI Final Result [facility] [address] [place] [address] documented in this encounter Visit Diagnoses Not on filedocumented in this encounter Care Teams Legislative Director Relationship Specialty Start Date End Date Chantell Sharma NP PCP - General 07/22/15 03/18/22 Chantell Sharma NP 07/22/15 03/18/22 documented as of this encounter
--- OUTSIDE RECORDS SUMMARY | 2024-04-30 13:09 | XMS_ITS | Encounter Summary ---
[place] [address] Care Team Providers Care Supervisor Metal Cans Name Role Phone Dana Cedillo DO Primary Care Provider [phone] Reason for Referral * Allergy Testing (Routine) - Authorized Specialty Diagnoses / Procedures Referred By Veronica brantley Referred To Contact Allergy Diagnoses Chronic rhinitis Allergic rhinitis due to animal (cat) (dog) hair and dander Allergic rhinitis due to food Allergic rhinitis due to pollen WANTS SECOND OPINION ON HER ALLERGY TREATMENT OPTIONS. Jere Estevez DO [address] [place] [address] [facility] [address] [place] [address] Referral ID Status Reason Start Date Expiration Date Visits Requested Visits Authorized [id number] Authorized Second Opinion PCP Updated and/or Approved 04/06/2025 6 6 Encounter Details Date Type Department Care Team (Late Contact Info) Description 04/21/2024 Transcribe Orders eD Incoming Referrals [phone] Jere Estevez DO [address] [place] [address] Chronic rhinitis Social History Tobacco Use Types Packs/Day Years [...] 1:30 PM EDT Office Visit Dermatology at [place] [address] [place] [address] Emiliano Salinas MD [address] [facility], [place] [address] Scheduled Referrals Name Type Priority Associated Diagnoses Orde r Schedule Referral to Allergy Outpatient Referral Routine Chronic rhinitis Ordered: 04/21/2024 documented as of this encounter Visit Diagnoses Diagnosis Chronic rhinitis documented in this encounter Care Teams Supervisor Metal Cans Relationship Specialty Start Date End Date Dana Cedillo DO [address] [place] [address] PCP - General Family Medicine 10/16/23 documented as of this encounter
--- OUTSIDE RECORDS SUMMARY | 2024-04-30 13:09 | XMS_ITS | Encounter Summary ---
Author Organization [facility] Address [address] [place] [address] Care Team Providers Care Sieve Grader Tender Name Role Phone Unavailable Primary Care Provider Unavailabl e Encounter Details Date Type Department Care Team (Late st Contact Info) Description 02/24/2024 Lab Requisition [facility] Pathology & Laboratory Medicine - [facility] [address] [place] [address] Outr Resulting Lab, Provider Social History Tobacco [...] Procedure Name Priority Date/Time Associated Diagnosis Comments HOLD SST Today 02/24/2024 14:59 EDT CCP ANTIBODIES Today 02/24/2024 14:59 EDT LYME AB Today 02/24/2024 14:59 EDT RHEUMATOID FACTOR Today 02/24/2024 14: 59 EDT ANTI NUCLEAR AB (ERIKA), IFA Today 02/24/2024 14:59 EDT documented in this encounter Results * HOLD SST (02/24/2024 14:59 EDT) Hold Hold 02/24/2024 22:30 EDT [facility] Blood VENOUS BLOOD / Unknown 02/24/2024 14:59 EDT 02/24/2024 21:17 EDT us Provider Outr Resulting Lab LAB INFO SERVICE AND SUPPORT & PHONE RESULT Final Result Performing Organization Address [facility]/ZIP Co de Phone Number [facility] [address] [place] [address] * LYME AB (02/24/2024 14:59 EDT) Pathologist [facility] [place] Ab Negative Negative 02/25/2024 9:41 EDT [facility] Blood VENOUS BLOOD / Unknown 02/24/2024 14:59 EDT 02/24/2024 21:17 EDT us Provider Outr Resulting Lab IMMUNOLOGY AND SEROL OGY ORDERABLES Final Result Performing Organization Address [facility] Co de Phone Number [facility] [address] [place] [address] * RHEUMATOID FACTOR (02/24/2024 14:59 EDT) [facility] Rheumatoid Factor <8.6 <12.0 IU/mL 02/24/2024 21:43 EDT [facility] Blood VENOUS BLOOD / Unknown 02/24/2024 14:59 EDT 02/24/2024 21:17 EDT us Provider Outr Resulting Lab CHEMISTRY & BLOOD GA S ORDERABLES Final Result Performing Organization Address [facility]/ZIP Co de Phone Number [facility] [address] [place] [address] * ANTI NUCLEAR AB (ERIKA), IFA (02/24/2024 14:59 EDT) Pathologist [facility] ERIKA Interpretation Negative Negative 2023 14:06 EDT [facility] Comment:No titer performed, ERIKA Screen is negative. Blood VENOUS BLOOD / Unknown 02/24/2024 14:59 EDT 02/24/2024 21:17 EDT Narrative [facility] - 02/25/2024 14:06 EDT Results were obtained with the POI NOVA Lite HEp-2 ERIKA Kit by indirect immunofluorescence. us Provider Outr Resulting Lab IMMUNOLOGY AND SEROL OGY ORDERABLES Final Result Performing Organization Address City/[facility] Co de Phone Number [facility] [address] [place] [address] * CCP ANTIBODIES (02/24/2024 14:59 EDT) CCP Antibodies <2.5 <5.0 U/mL 02/25/2024 9:35 EDT [facility] Blood VENOUS BLOOD / Unknown 02/24/2024 14:59 EDT 02/24/2024 21:17 EDT us Provider Outr Resulting Lab IMMUNOLOGY AND SEROL OGY ORDERABLES Final Result [facility] [address] [place] [address] documented in this encounter Visit Diagnoses Not on filedocumented in this encounter
--- OUTSIDE RECORDS SUMMARY | 2024-04-30 13:09 | XMS_ITS | Encounter Summary ---
Author Organization [facility]ly [facility] [place] [address] Care Team Providers Care Marble Mechanic Helper Name Role Phone Dana Cedillo DO Primary Care Provider +1- [phone] Encounter Details Date Type Department Care Team (Late st Contact Info) Description 04/03/2024 Telephone Infectious [place] [phone] None None Social History Tobacco Use Types [...] encounter Miscellaneous Notes * Telephone Encounter - Janet Rosa - 04/03/2024 11:30 AM EDT CLINIC PHONE COVERAGE: Reason for Call: Returning a Call PCP: Dana Cedillo DO / Treating provider: / Message: Patient called and stated they are returning a call from the department to establish care.Please call to assist. Did sports writer attempt to reach out to the clinic?: No Caller Name (If other than patient): Self Relationship to Patient (if other than self): Patient Callback number: [phone] Best time you are available: Any documented in this encounter Plan of Treatment Upcoming Encounters Date Type Department Care Team (Late st Contact Info) Description 03/16/2025 1:30 PM EDT Office Visit Dermatology at [place] [address] [facility] [place] [address] Emiliano Salinas MD [address], BAKARI [place] [address] documented as of this encounter Visit Diagnoses Not on filedocumented in this encounter Care Teams Marble Mechanic Helper Relationship Specialty Start Date End Date Dana Cedillo DO [address] [place] [address] PCP - General Family Medicine 10/16/23 documented as of this encounter
--- OUTSIDE RECORDS SUMMARY | 2024-04-30 13:09 | XMS_ITS | Encounter Summary ---
Author Organization [facility] Address [facility] [place] [address] Care Team Providers Care Manager Java Name Role Phone Dana Cedillo DO Primary Care Provider +1- [phone] Reason for Referral * Consultation (Routine) - Authorized Specialty Diagnoses / Procedures Referred By Veronica brantley Referred To Contact Gastroenterology Diagnoses Pancreas cyst Palak Davis MD [facility] [place] [address] [facility] [place] [address] Referral ID Status Reason Start Date Expiration Date Visits Requested Visits Authorized [id number] Authorized Test Only 03/20/2024 03/20/2025 1 1 Encounter Details Date Type Department Care Team (Late st Contact Info) Description 03/20/2024 Orders [place] [address] Palak Davis MD [facility] [place] [address] Pancreas cyst Social History Tobacco Use Types Packs/Day Years [...] 1:30 PM EDT Office Visit Dermatology at [place] [address] [place] [address] Emiliano Salinas MD [address], BAKARI [place] [address] Scheduled Referrals Name Type Priority Associated Diagnoses Orde r Schedule REFERRAL TO ENDOSCOPY PROCEDURE Outpatient Referral Routine Pancreas cyst Ordered: 03/20/2024 documented as of this encounter Visit Diagnoses Diagnosis 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
--- OUTSIDE RECORDS SUMMARY | 2024-04-30 13:09 | XMS_ITS | Encounter Summary ---
Author Organization [facility] [place] [address] Care Team Providers Care Clinical Leader Name Role Phone Dana Cedillo DO Primary Care Provider +1- [phone] Reason for Visit * Reason Comments Medication Refill Encounter Details Date Type Department Care Team (Late st Contact Info) Description 02/08/2024 Refill Cardiology at [address] [place] [address] Liam Noel MD [facility] [place] [address] Medication Refill Social History Tobacco Use Types [...] 1:30 PM EDT Office Visit Dermatology at [address] [place] [address] Emiliano Salinas MD [address], [place] [address] documented as of this encounter Visit Diagnoses Diagnosis Mixed hyperlipidemia documented in this encounter Care Teams Clinical Leader Relationship Specialty Start Date End Date Dana Cedillo DO [address] [place] [address] PCP - General Family Medicine 10/16/23 documented as of this encounter
--- OUTSIDE RECORDS SUMMARY | 2024-04-30 13:09 | XMS_ITS | Encounter Summary ---
Author Organization [facility] Address [facility] [place] [address] Care Team Providers Care Sales Representative Name Role Phone Dana Cedillo DO Primary Care Provider +1- [phone] Encounter Details Date Type Department Care Team (Late st Contact Info) Description 01/23/2024 Telephone Cardiology at [address] [place] [address] Liam Noel MD [facility] [place] [address] Social History Tobacco Use Types Packs/Day Years [...] 1:30 PM EDT Office Visit Dermatology at [place] [address] [facility] [place] [address] Emiliano Salinas MD [address], [place] [address] documented as of this encounter Visit Diagnoses Not on filedocumented in this encounter Care Teams Sales Representative Relationship Specialty Start Date End Date Dana Cedillo DO [address] [place] [address] PCP - General Family Medicine 10/16/23 documented as of this encounter
--- OUTSIDE RECORDS SUMMARY | 2024-04-30 13:09 | XMS_ITS | Encounter Summary ---
Author Organization [facility] [place] [address] Care Team Providers Care Sporting Goods Sales Manager Name Role Phone Dana Cedillo DO Primary Care Provider +1- [phone] Encounter Details Date Type Department Care Team [...] 1:30 PM EDT Office Visit Dermatology at [place] [address] [facility] [place] [address] Emiliano Salinas MD [address], MANINDER A DERMATOLOGY [place], [place] [address] documented as of this encounter Visit Diagnoses Not on filedocumented in this encounter Care Teams Sporting Goods Sales Manager Relationship Specialty Start Date End Date aDna Cedillo DO [address] [place] [address] PCP - General Family Medicine 10/16/23 documented as of this encounter
--- OUTSIDE RECORDS SUMMARY | 2024-04-30 13:09 | XMS_ITS | Encounter Summary ---
Author Organization [facility] [place] [address] Care Team Providers Care Paint Prep Technician Name Role Phone Dana Cedillo DO Primary Care Provider +1- [phone] Encounter Details Date Type Department Care Team (Latest Contact Info) Description 03/13/2024 Travel Social History Tobacco Use Types Packs/Day [...] 1:30 PM EDT Office Visit Dermatology at [place] [address] [facility] [place] [address] Emiliano Salinas MD [address], MANINDER A DERMATOLOGY [place], [place] [address] documented as of this encounter Visit Diagnoses Not on filedocumented in this encounter Care Teams Paint Prep Technician Relationship Specialty Start Date End Date Dana Cedillo DO [address] [place] [address] PCP - General Family Medicine 10/16/23 documented as of this encounter
--- OUTSIDE RECORDS SUMMARY | 2024-04-30 13:09 | XMS_ITS | Encounter Summary ---
Author Organization [facility] [place] [address] Care Team Providers Care Catalog Librarian Name Role Phone Saleembellarubio Danarebecca Ordonez DO Primary Care Provider +1- [phone] Reason for Visit * Reason Comments Skin Check Encounter Details Date Type Department Care Team (Late st Contact Info) Description 03/13/2024 9:45 AM EDT Office Visit Dermatology at [address] [address] Emiliano Salinas MD [address] [facility] DERMATOLOGY [place], [place] [address] Multiple benign melanocytic nevi of upper and lower extremities and trunk; Rhytides; Lentigines; Androgenetic alopecia Social History Tobacco Use Types [...] Progress Notes * Emiliano Salinas MD - 03/13/2024 9:45 AM EDT Problems: 1. Repeat skin checkup 2. History of androgenic alopecia. 3. History of rosacea status post multiple laser treatments. 4. History of allergic chronic dermatitis, status post patch testing with Dr. 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 Yessenia follows up for a repeat skin checkup. I last saw her in 2014. [place] [facility] [place], she decided not to take the oral minoxidil and not to use the compounded cream for her facial lentigines. She like to have a general skin checkup here today. Physical examination reveals a pleasant 74-year-old woman who has a benign examination of the head and the neck the chest the back the hands on forearms thighs and calves. She has no evidence of any cutaneous malignancies. 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 Assessment plan: Female pattern alopecia 1. Discussed treatment options 2. Patient would like to try minoxidil begin minoxidil 2.5 mg take 1 p.o. daily. Dispense #180 with3 refills 3. Discussed benefits/side effects Solar lentigos 1. Patient would like to try topical cream 2. Begin hydroquinone 4% cream apply on a twice daily basis to face for 6 weeks on, then hold. May repeat cycle after 3 weeks off. Dispense 30 g with 3 refills. Photoaging 1. Patient would like to use tretinoin 0.025% cream. Apply every other night to face. Dispense 20 gwith 5 refills. 2. I have asked the patient to start using this after she completes the hydroquinone cream for easeof compliance. Benign skin examination 1. Patient reassured about her benign skin examination today 2. Return to clinic in a year for repeat check 3. Doing well at that time may be able to space visits out. CC: Dana Cedillo DO documented in this encounter Plan of Treatment Upcoming Encounters Date Type Department Care Team (Late st Contact Info) Description 03/16/2025 1:30 PM EDT Office Visit Dermatology at [address] [place] [address] Emiliano Salinas MD [address], [place] [address] documented as of this encounter Visit Diagnoses Diagnosis Multiple benign melanocytic nevi of upper and lower extremities and trunk Rhytides Other specified hypertrophic and atrophic condition of skin Lentigines Other dyschromia Androgenetic alopecia Other alopecia documented in this encounter Care Teams Catalog Librarian Relationship Specialty Start Date End Date Dana Cedillo DO [address] [facility] [place] [address] PCP - General Family Medicine 10/16/23 documented as of this encounter
--- OUTSIDE RECORDS SUMMARY | 2024-04-30 13:09 | XMS_ITS | Encounter Summary ---
[place] [address] Care Team Providers Care Health Type Technician Name Role Phone Dana Cedillo DO Primary Care Provider +1- [phone] Reason for Referral * Consultation (Routine) - Authorized Specialty Diagnoses / Procedures Referred By Veronica brantley Referred To Contact Infectious Diseases Diagnoses Lyme disease, unspecified Arthralgia, unspecified joint Myalgia, unspecified site WAS ON ANTIBIOTICS LAST MONTH Carmen Brunner APRN [address] [place] [address] [facility] [place] [address] [place] [phone] Referral ID Status Reason Start Date Expiration Date Visits Requested Visits Authorized [id number] Authorized Consult, Test & Treat PCP Updated and/or Approved 02/24/2024 08/23/2024 6 6 Encounter Details Date Type Department Care Team (Latest Contact Info) Description 03/19/2024 Transcribe Orders eDH Incoming Referrals [phone] Carmen Brunner APRN [address] [place] [address] Lyme disease, unspecified; Arthralgia, unspecified joint; Myalgia, unspecified site Social History Tobacco Use Types Packs/Day Years [...] 1:30 PM EDT Office Visit Dermatology at [place] [address] [facility] [place] [address] Emiliano Salinas MD [address], [place] [address] Scheduled Referrals Name Type Priority Associated Diagnoses Order Schedule Referral to Infectious Disease and [facility] Outpatient Referral Routine Lyme disease, unspecified Arthralgia, unspecified joint Myalgia, unspecified site Ordered: 03/19/2024 documented as of this encounter Visit Diagnoses Diagnosis Lyme disease, unspecified Arthralgia, unspecified joint Myalgia, unspecified site documented in this encounter Care Teams Health Type Technician Relationship Specialty Start Date End Date Dana Cedillo DO [address] [place] [address] PCP - General Family Medicine 10/16/23 documented as of this encounter
--- OUTSIDE RECORDS SUMMARY | 2024-04-30 13:09 | XMS_ITS | Encounter Summary ---
Author Organization [facility] [place] [address] Care Team Providers Care Boot Lace Cutter Machine Name Role Phone Dana Cedillo DO Primary Care Provider +1- [phone] Encounter Details Date Type Department Care Team (Latest Contact Info) Description 04/28/2024 5:10 PM EST Laboratory Appointment Lab 3L [place] [address] Other post infection and related fatigue syndromes; Hypercalciuria; Pathological fracture of left foot due to [...] 1:30 PM EDT Office Visit Dermatology at [place] [address] [place] [address] Emiliano Salinas MD [address], [place] [address] documented as of this encounter Procedures Procedure Name Priority Date/Time Associated Diagnosis Comments ACUTE TICK BORNE INFECTION PANEL Routine 04/28/2024 5:07 PM EST Other post infection and related fatigue syndromes PTH Routine 04/28/2024 5:07 PM EST Hypercalciuria SYPHILIS ANTIBODY SCREEN WITH REFLEX Routine 04/28/2024 5:07 PM EST Other post infection and related fatigue syndromes VITAMIN D, 25-HYDROXY Routine 04/28/2024 5:07 PM EST 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, subsequent encounter HIV SCREEN, 4TH GENERATION [place] [place] Routine 04/28/2024 5:07 PM EST Other post infection and related fatigue syndromes VITAMIN B12 Routine 04/28/2024 5:07 PM EST Other post infection and related fatigue syndromes CALCIUM Routine 04/28/2024 5:07 PM EST Hypercalciuria ALBUMIN LEVEL Routine 04/28/2024 5:07 PM EST Hypercalciuria documented in this encounter Results * Vitamin D, 25-Hydroxy (04/28/2024 5:07 PM EST) Vitamin D Total 25 OH 43 21 - 100 ng/ml 04/28/2024 11:01 PM EST [facility] Vitamin D Total 25 OH Interp Sufficient 04/28/2024 11:01 PM EST [facility] Blood VENOUS BLOOD SPECIMEN / Unknown Venipuncture / Unknown 04/28/2024 5:07 PM EST 04/28/2024 5:08 PM EST Virginia Everett MD CHEMISTRY ORDERABL ES [facility] [place] [address] * (ABNORMAL) PTH (04/28/2024 5:07 PM EST) Parathyroid Hormone 13(L) 15 - 65 pg/mL 04/28/2024 6:04 PM EST [facility] Blood VENOUS BLOOD SPECIMEN / Unknown Venipuncture / Unknown 04/28/2024 5:07 PM EST 04/28/2024 5:08 PM EST Virginia Everett MD CHEMISTRY ORDERABL ES Performing Organization Address City/[facility]/ZIP Co de Phone Number [facility] [place] [address] * Calcium (04/28/2024 5:07 PM EST) Pathologist [facility] Calcium 9.6 8.5 - 10.5 mg/dL 04/28/2024 6:05 PM EST [facility] Blood VENOUS BLOOD SPECIMEN / Unknown Venipuncture / Unknown 04/28/2024 5:07 PM EST 04/28/2024 5:08 PM EST Virginia Everett MD CHEMISTRY ORDERABL ES Performing Organization Address City/[facility]/ZIP Co de Phone Number [facility] [place] [address] * Albumin Level (04/28/2024 5:07 PM EST) Pathologist [facility] Albumin 4.4 3.2 - 5.2 g/dL 04/28/2024 6:05 PM EST [facility] Blood VENOUS BLOOD SPECIMEN / Unknown Venipuncture / Unknown 04/28/2024 5:07 PM EST 04/28/2024 5:08 PM EST Virginia Everett MD CHEMISTRY ORDERABL ES Performing Organization Address City/[facility]/ZIP Co de Phone Number [facility] [place] [address] * (ABNORMAL) Vitamin B12 (04/28/2024 5:07 PM EST) [facility] Vitamin B12 1,993(H) 232 - 1,245 pg/mL 04/28/2024 11:50 PM EST [facility] Blood VENOUS BLOOD SPECIMEN / Unknown Venipuncture / Unknown 04/28/2024 5:07 PM EST 04/28/2024 5:08 PM EST Lynn Ro MD CHEMISTRY ORDERABLES Performing Organization Address City/[facility]/ZIP Co de Phone Number [facility] [place] [address] * HIV Screen, 4th Generation ([facility] [place]D/NLH[place] (04/28/2024 5:07 PM EST) [facility] HIV Ab/Ag Screen Negative Negative 04/29/2024 12:58 AM EST [facility] Comment:Low Risk of HIV Infe ction. Blood VENOUS BLOOD SPECIMEN / Unknown Venipuncture / Unknown 04/28/2024 5:07 PM EST 04/28/2024 5:08 PM EST Narrative [facility] - 04/29/2024 12:58 AM EST This [...] Ro MD CHEMISTRY ORDERABLES Performing Organization Address City/[facility]/ZIP Co de Phone Number [facility] [place] [address] * Syphilis Screening Antibody with reflex RPR (04/28/2024 5:07 PM EST) [facility] Syphilis IgG/IgM Negative Negative 04/29/2024 12:21 AM EST [facility] Blood VENOUS BLOOD SPECIMEN / Unknown Venipuncture / Unknown 04/28/2024 5:07 PM EST 04/28/2024 5:08 PM EST Lynn Ro [place] [address] * Acute Tick Borne Infection Panel (04/28/2024 5:07 PM EST) Anaplasma phagocytophilum PCR Not Detected 04/29/2024 4:33 PM EST [facility] Anaplasma phagocytophilum Interpretation A result of 'Detected' [...] equivalents per PCR reaction. 04/29/2024 4:33 PM EST [facility] Ehrlichia chaffeensis PCR Not Detected 04/29/2024 4:33 PM EST [facility] Ehrlichia chaffeensis Interpretation A result of 'Detected' [...] equivalents per PCR reaction. 04/29/2024 4:33 PM [facility] Babesia microti PCR Not Detected 04/29/2024 4:33 PM [facility] Babesia microti Interpretation A result of 'Detected' [...] equivalents per PCR reaction. 04/29/2024 4:33 PM [facility] Borrelia miyamotoi PCR Not Detected 04/29/2024 4:33 PM [facility] Borrelia miyamotoi Interpretation A result of 'Detected' [...] equivalents per PCR reaction. 04/29/2024 4:33 PM [facility] Acute Tick Panel Test Comment LIMITATIONS AND [...] between live and organisms. 04/29/2024 4:33 PM EST [facility] CGAT Disclaimer This test was developed and its performance characteristics determined by [facility] ([facility]) at [facility], as required by the Clinical Laboratory Improvement [...] test's accuracy and precision. 04/29/2024 4:33 PM EST [facility] Blood VENOUS BLOOD SPECIMEN / Unknown Venipuncture / Unknown 04/28/2024 5:07 PM EST 04/28/2024 5:08 PM EST Lynn Ro MD MOLECULAR ORDERABLES Performing Organization Address [facility] Co de Phone Number [facility] [place] [address] documented in this encounter Visit Diagnoses Diagnosis Other post infection and related fatigue syndromes Hypercalciuria Unspecified disorders of calcium metabolism 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, subsequent encounter documented in this encounter Care Teams Boot Lace Cutter Machine Relationship Specialty Start Date End Date Dana Cedillo DO [address] [place] [address] PCP - General Family Medicine 10/16/23 documented as of this encounter
--- OUTSIDE RECORDS SUMMARY | 2024-04-30 13:09 | XMS_ITS | Encounter Summary ---
Author Organization [facility] [place] [address] Care Team Providers Care Glove Examiner Name Role Phone Dana Cedillo DO Primary Care Provider +1- [phone] Encounter Details Date Type Department Care Team (Latest Contact Info) Description 04/28/2024 Travel Social History Tobacco Use Types Packs/Day [...] 1:30 PM EDT Office Visit Dermatology at [place] [address] [facility] [place] [address] Emiliano Salinas MD [address], MANINDER A DERMATOLOGY [place], [place] [address] documented as of this encounter Visit Diagnoses Not on filedocumented in this encounter Care Teams Glove Examiner Relationship Specialty Start Date End Date Dana Cedillo DO [address] [place] [address] PCP - General Family Medicine 10/16/23 documented as of this encounter
--- OUTSIDE RECORDS SUMMARY | 2024-04-30 13:09 | XMS_ITS | Encounter Summary ---
Author Organization [facility] [place] [address] Care Team Providers Care Oil Field Equipment Mechanic Name Role Phone Dana Cedillo DO Primary Care Provider +1- [phone] Encounter Details Date Type Department Care Team (Latest Contact Info) Description 04/21/2024 Travel Social History Tobacco Use Types Packs/Day [...] 1:30 PM EDT Office Visit Dermatology at [place] [address] [place] [address] Emiliano Salinas MD [address], MANINDER A DERMATOLOGY [place], [place] [address] documented as of this encounter Visit Diagnoses Not on filedocumented in this encounter Care Teams Oil Field Equipment Mechanic Relationship Specialty Start Date End Date Dana Cedillo DO [address] [place] [address] PCP - General Family Medicine 10/16/23 documented as of this encounter
--- OUTSIDE RECORDS SUMMARY | 2024-04-30 13:09 | XMS_ITS | Encounter Summary ---
Author Organization [facility] [place] [address] Care Team Providers Care Instrumentation Designer Name Role Phone Saleembellarubio Danarebecca Ordonez DO Primary Care Provider +1- [phone] Encounter Details Date Type Department Care Team (Late st Contact Info) Description 02/15/2024 Ancillary Procedure Radiology Library at [facility] [place] [address] Palak Davis MD [facility] [place] [address] Social History Tobacco Use Types Packs/Day Years [...] 1:30 PM EDT Office Visit Dermatology at [place] [address] [place] [address] Emiliano Salinas MD [address], BAKARI [place] [address] documented as of this encounter Procedures Procedure Name Priority Date/Time Associated Diagnosis Comments FILM LIBRARY STORAGE ONLY CT ABDOMEN AND PELVIS Routine 02/15/2024 12:00 AM EDT documented in this encounter Results * Film Library- Storage Only CT Abdomen & Pelvis (02/15/2024 12:00 AM EDT) Narrative [facility] - 03/19/2024 1:43 PM EDT This exam is auto-finalizing. It's purpose is for storage only. Palak Davis MD IMAdwoa FILM LIBRARY O RDERABLES Performing Organization Address City/State/[facility] Co de Phone Number [place], [place] documented in this encounter Visit Diagnoses Not on filedocumented in this encounter Care Teams Instrumentation Designer Relationship Specialty Start Date End Date Dana Cedillo DO [address] [place] [address] PCP - General Family Medicine 10/16/23 documented as of this encounter
--- OUTSIDE RECORDS SUMMARY | 2024-04-30 13:09 | XMS_ITS | Encounter Summary ---
Author Organization [facility] Address [address] [place] [address] Care Team Providers Care Cable Way Operator Name Role Phone Chantell Sharma FLIGHT FOLLOWER Primary Care Provider [phone] Chantell Sharma NP Primary Care Provider [phone] Elier Alvarez MD Unavailable Unavailabl e Chantell Sharma NP Unavailable [phone] Reason for Visit * Reason Onset Date Comments Other 07/21/2015 Encounter Details Date Type Department Care Team (Late st Contact Info) Description 07/21/2015 Telephone [facility] Dermatology 3rd Floor [facility] [address], [place] [id number] Isaak Lloyd MD Other Social History Tobacco [...] on filedocumented in this encounter Care Teams Cable Way Operator Relationship Specialty Start Date End Date Chantell Sharma NP PCP - General 07/21/15 07/21/15 Chantell Sharma NP PCP - General 07/22/15 03/18/22 Elier Alvarez MD 07/21/15 07/21/15 Chantell Sharma NP 07/22/15 03/18/22 documented as of this encounter
--- OUTSIDE RECORDS SUMMARY | 2024-04-30 13:09 | XMS_ITS | Clinical Summary ---
Author Organization [facility] Address [facility] [place] [address] Care Team Providers Care Ammonia Box Operator Name Role Phone Dana Cedillo DO Primary Care Provider [phone] Allergies Active Allergy Reactions Criticality Noted Date [...] Sulfamethoxazole Other (See Comments) Medium 05/17/2020 unspecified Sulfasalazine 01/09/2012 Other Reaction(s): Not available, Other: See Comments Trimethoprim Other (See Comments) Medium 05/17/2020 Unspecified [...] mL Auto-Injector as needed. 3 01/30/2019 Active fluticasone propionate (Flonase) 50 mcg/actuation [place], Suspension Every 12 hours. 10/17/2020 Ac tive traZODone (Desyrel) 150 mg tablet Take 200 mg by mouth nightly. 10/24/2022 Active calcium carbonate/vitamin D3 (CALCIUM WITH VITAMIN D3 ORAL) Take by mouth daily. Active fexofenadine (Glory) 180 mg tablet Take 180 mg by mouth daily. Active levothyroxine (Synthroid) 50 mcg tablet TAKE ONE TABLET BY MOUTH EVERY MORNING ON AN EMPTY STOMACH Active Nexletol 180 mg tabletIndications:Mix ed hyperlipidemia TAKE ONE TABLET BY MOUTH EVERY DAY 90 tablet 3 02/11/2024 Active cholecalciferol, Vitamin D3, 25 mcg (1,000 unit) Capsule TAKE ONE CAPSULE BY MOUTH EVERY DAY DIRECTED 06/10/2023 Active VITAMIN B COMPLEX ORAL Take 1 capsule by mouth every morning. 06/05/2023 Active minoxidiL (Loniten) 2.5 mg tablet Take one tablet by mouth daily 180 tablet 3 03/13/2024 Active hydroquinone (Latrobe) 4 % Cream Apply thin layer topically twice daily basis to face for 6 weeks on then hold. May repeat cycle after 3 weeks off. 28.35 g 3 03/13/2024 Active tretinoin (RETIN-A) 0.025 % Cream Apply thin layer topically every other night to face. 20 g 5 03/13/2024 Active Doxycycline Hyclate (Doryx) [address] tablet Take by mouth. Active azithromycin (Zithromax) 250 mg tablet Take by mouth daily. Day1:take 2 tablets daily, Day 2-5:Take one tablet daily Active soybean, fermented (Nattokinase) 50 mg Capsule Take by mouth. Active rifAMPin (Rifadin) 300 mg capsule Take 300 mg by mouth. Active Milk Thistle 175 mg Tablet Take 175 mg by mouth daily. Active hydroCHLOROthiazide (Esidrix) 50 mg tablet Take 50 mg by mouth daily. Active Saccharomyces boulardii 10 billion cell Capsule Take by mouth. Active Active Problems Problem Noted Date Diagnosed [...] fi rst carpometacarpal joint of right hand 03/18/2023 1002/2023 Allergic rhinitis due to pollen 09/03/2022 03/18/2023 [...] Date Type Department Care Team Description 04/29/2024 Telephone [place] [phone] Lynn Ro MD Results (Lab Results) 04/28/2024 5:10 PM EST Laboratory Appointment Lab [address] [place] [address] Other post infection and related fatigue syndromes; Hypercalciuria; 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, subsequent encounter 04/28/2024 3:40 PM EST Office Visit [place] [address] Lynn Ro MD Other post infection and related fatigue syndromes 04/28/2024 Telephone [place] [address] None 04/28/2024 Travel 04/21/2024 Transcribe Orders eDH Incoming Referrals [phone] Jere Estevez, DO Chronic rhinitis 04/21/2024 Travel 04/03/2024 Telephone [place] [phone] None 03/20/2024 Telephone [place] [address] Palak Davis MD 03/20/2024 Orders Only [place] [phone] Palak Davis MD Pancreas cyst 03/19/2024 Transcribe Orders eDH Incoming Referrals [phone] Carmen Brunner APRN Lyme disease, unspecified; Arthralgia, unspecified joint; Myalgia, unspecified site 03/17/2024 Transcribe Orders eDH Incoming Referrals [phone] Carmen Brunner APRN Pancreatic lesion 03/16/2024 Ancillary Procedure Radiology Library at [facility] [place] [phone] Palak Davis MD 03/13/2024 9:45 AM EDT Office Visit Dermatology at [address] [address] Emiliano Salinas MD Multiple benign melanocytic nevi of upper and lower extremities and trunk; Rhytides; Lentigines; Androgenetic alopecia 03/13/2024 Refill Dermatology at [address] [address] Jackelin Sam RN 03/13/2024 Travel 03/06/2024 Travel 02/27/2024 Telephone Cardiology at [address] [address] Liam Noel MD 02/15/2024 Ancillary Procedure Radiology Library at [facility] [place] [address] Palak Davis MD 02/13/2024 Telephone Cardiology at [address] [address] Liam Noel MD 02/08/2024 Refill Cardiology at [address] [address] Liam Noel MD Medication Refill 02/07/2024 Telephone Cardiology at [address] [address] Ashlyn Celis RN 02/06/2024 Travel 02/04/2024 Transcribe Orders Neurosurgery at [facility] [address] [place] [address] Nell Fitch DO from Last 3 Months Immunizations Name Administration Dates Next Due Hepatitis A, Unspecified Formulation 10/17/2010 Influenza (Fluzone HD) Trivalent High Dose 03/23 Tdap (Adacel, Boostrix) 10/17/2010 Typhoid Live, Oral 10/17/2010 Zoster Recombinant (ShingRix) 06/16/2018 Family History Medical History Relation Comments [...] Mass Index 27.54 04/28/2024 3:37 PM EST Plan of Treatment Upcoming Encounters Date Type Department Care Team (Late st Contact Info) Description 03/16/2025 1:30 PM EDT Office Visit Dermatology at [address] [place] [phone] Emiliano Salinas MD [address], [place] [address] Health Maintenance Due Date Last Done Comments CT Colonography 1950 Colonoscopy 1950 Colorectal Cancer Screening 1950 FIT DNA 1950 FIT 1950 Sigmoidoscopy (10 year) with FIT yearly 1950 Sigmoidoscopy 1950 Pneumoccocal Vaccine: 65+ (1 of 2 - PCV) 1955 Hepatitis C Screening 1967 Advance Directive 02/10/2004 Zoster vaccine (2 of 2) 08/11/2018 06/16/2018 Tetanus/Diphtheria/Pertussis Vaccines (2 - Td or Tdap) 10/17/2020 10/17/2010 Covid-19 Vaccine (5 - 2023-2 5 season) 2024 04/04/2022, 09/20/2021, 08/31/2020, Additional history exists Influenza (Flu) vaccine (1 o f 1 - Influenza standard series) 2024 03/23/2019 RSV Vaccine (1 - 1-dose 75+ series) 02/10/2024 Bone Density Scan 10/17/2038 10/18/2023 Diabetes Screening (HgbA1C o r Glucose) Discontinued 07/30/2023, 02/13/2019, 12/06/2017, Additional history exists Procedures Procedure Name Priority Date/Time Associated Diagnosis Comments VITAMIN D, 25-HYDROXY Routine 04/28/2024 5:07 PM EST 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, subsequent encounter PTH Routine 04/28/2024 5:07 PM EST Hypercalciuria CALCIUM Routine 04/28/2024 5:07 PM EST Hypercalciuria ALBUMIN LEVEL Routine 04/28/2024 5:07 PM EST Hypercalciuria VITAMIN B12 Routine 04/28/2024 5:07 PM EST Other post infection and related fatigue syndromes HIV SCREEN, 4TH GENERATION (MC/CGP/APD/NLH) Routine 04/28/2024 5:07 PM EST Other post infection and related fatigue syndromes SYPHILIS ANTIBODY SCREEN WITH REFLEX Routine 04/28/2024 5:07 PM EST Other post infection and related fatigue syndromes ACUTE TICK BORNE INFECTION PANEL Routine 04/28/2024 5:07 PM EST Other post infection and related fatigue syndromes FILM LIBRARY STORAGE ONLY MR ABDOMEN Routine 03/16/2024 12:00 AM EDT MRI/MRA SCAN 03/16/2024 12:00 AM EDT LAB SCAN 02/16/2024 12:00 AM EDT FILM LIBRARY STORAGE ONLY CT ABDOMEN AND PELVIS Routine 02/15/2024 12:[address] SCAN (SCAN) 02/15/2024 12:00 AM EDT DXA CENTRAL SPINE, HIP, AND/OR WHOLE BODY (GENERIC) Routine 10/18/2023 10:49 AM EDT 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, subsequent encounter COMPREHENSIVE METABOLIC PANEL Routine 07/30/2023 11:32 AM EST Osteopenia, unspecified location from Last 3 Months or Most Recently Relevant to Health Maintenance Results * Acute Tick Borne Infection Panel (04/28/2024 5:07 PM EST) Pathologist [facility] Anaplasma phagocytophilum PCR Not Detected 04/29/2024 4:33 PM [facility] Anaplasma phagocytophilum Interpretation A result of [...] per PCR reaction. 04/29/2024 4:33 PM EST [facility] Ehrlichia chaffeensis PCR Not Detected 04/29/2024 4:33 PM [facility] Ehrlichia chaffeensis Interpretation A result of [...] equivalents per PCR reaction. 04/29/2024 4:33 PM [facility] Babesia microti PCR Not Detected 04/29/2024 4:33 PM [facility] Babesia microti Interpretation A result of 'Detected' [...] equivalents per PCR reaction. 04/29/2024 4:33 PM [facility] Borrelia miyamotoi PCR Not Detected 04/29/2024 4:33 PM [facility] Borrelia miyamotoi Interpretation A result of 'Detected' [...] per PCR reaction. 04/29/2024 4:33 PM EST [facility] Acute Tick Panel Test Comment LIMITATIONS AND [...] live and organisms. 04/29/2024 4:33 PM EST [facility] Disclaimer This test was developed and its performance characteristics determined by [facility] ([facility]) at [facility], as required by the Clinical Laboratory [...] accuracy and precision. 04/29/2024 4:33 PM EST [facility] Blood VENOUS BLOOD SPECIMEN / Unknown Venipuncture / Unknown 04/28/2024 5:07 PM EST 04/28/2024 5:08 PM EST Lynn Ro MD MOLECULAR ORDERABLES Performing Organization Address City/State/[facility] Co de Phone Number [facility] [place] [address] * (ABNORMAL) PTH (04/28/2024 5:07 PM EST) Parathyroid Hormone 13(L) 15 - 65 pg/mL 04/28/2024 6:04 PM EST [facility] Blood VENOUS BLOOD SPECIMEN / Unknown Venipuncture / Unknown 04/28/2024 5:07 PM EST 04/28/2024 5:08 PM EST Sam Dawson MD CHEMISTRY ORDERABL ES Performing Organization Address City/[facility]/ZIP Co de Phone Number [facility] [place] [address] * Syphilis Screening Antibody with reflex RPR (04/28/2024 5:07 PM EST) Syphilis IgG/IgM Negative Negative 04/29/2024 12:21 AM EST [facility] Blood VENOUS BLOOD SPECIMEN / Unknown Venipuncture / Unknown 04/28/2024 5:07 PM EST 04/28/2024 5:08 PM EST Lynn Ro MD CHEMISTRY ORDERABLES Performing Organization Address City/[facility]/ZIP Co de Phone Number [facility] [place] [address] * Vitamin D, 25-Hydroxy (04/28/2024 5:07 PM EST) Pathologist [facility] Vitamin D Total 25 OH 43 21 - 100 ng/ml 04/28/2024 11:01 PM EST [facility] Vitamin D Total 25 OH Interp Sufficient 04/28/2024 11:01 PM EST [facility] Blood VENOUS BLOOD SPECIMEN / Unknown Venipuncture / Unknown 04/28/2024 5:07 PM EST 04/28/2024 5:08 PM EST Sam Dawson MD CHEMISTRY ORDERABL ES Performing Organization Address City/[facility]/ZIP Co de Phone Number [facility] [place] [address] * HIV Screen, 4th Generation ([facility] [employer]/CGP/APD/NLH) (04/28/2024 5:07 PM EST) Pathologist [facility] HIV Ab/Ag Screen Negative Negative 04/29/2024 12:58 AM EST [facility] Comment:Low Risk of HIV Infe ction. Blood VENOUS BLOOD SPECIMEN / Unknown Venipuncture / Unknown 04/28/2024 5:07 PM EST 04/28/2024 5:08 PM EST Narrative [facility] - 04/29/2024 12:58 AM EST [...] Ro MD CHEMISTRY ORDERABLES Performing Organization Address City/[facility]/ZIP Co de Phone Number [facility] [place] [address] * (ABNORMAL) Vitamin B12 (04/28/2024 5:07 PM EST) Vitamin B12 1,993(H) 232 - 1,245 pg/mL 04/28/2024 11:50 PM EST [facility] Blood VENOUS BLOOD SPECIMEN / Unknown Venipuncture / Unknown 04/28/2024 5:07 PM EST 04/28/2024 5:08 PM EST Lynn Ro MD CHEMISTRY ORDERABLES Performing Organization Address [facility] Co de Phone Number [facility] [place] [address] * Calcium (04/28/2024 5:07 PM EST) Calcium 9.6 8.5 - 10.5 mg/dL 04/28/2024 6:05 PM EST [facility] Blood VENOUS BLOOD SPECIMEN / Unknown Venipuncture / Unknown 04/28/2024 5:07 PM EST 04/28/2024 5:08 PM EST Sam Dawson MD CHEMISTRY ORDERABL ES Performing Organization Address City/[facility] Co de Phone Number [facility] [place] [address] * Albumin Level (04/28/2024 5:07 PM EST) Albumin 4.4 3.2 - 5.2 g/dL 04/28/2024 6:05 PM EST [facility] Blood VENOUS BLOOD SPECIMEN / Unknown Venipuncture / Unknown 04/28/2024 5:07 PM EST 04/28/2024 5:08 PM EST Sam Dawson MD CHEMISTRY ORDERABL ES Performing Organization Address [facility]/ZIP Co de Phone Number [facility] [place] [address] * Scan Doc: MRI/MRA (03/16/2024 12:00 AM EDT) Anatomical Region Laterality Modality Other Narrative 03/16/2024 12:00 AM EDT Ordered by an unspecified provider. Scanning Provider MEDIA MGR SCAN EXT O RDR/RSLT * Film Library- Storage Only MR Abdomen (03/16/2024 12:00 AM EDT) Narrative [facility] - 03/19/2024 2:14 PM EDT This exam is auto-finalizing. It's purpose is for storage only. Palak Davis MD IMG FILM LIBRARY O RDERABLES Performing Organization Address [facility] Co de Phone Number [place], [place] * Scan Doc: Lab (02/16/2024 12:00 AM EDT) Narrative 02/16/2024 12:00 AM EDT Ordered by an unspecified provider. Scanning Provider MEDIA MGR SCAN EXT O RDR/RSLT * Scan Doc: CT Scan (02/15/2024 12:00 AM EDT) Anatomical Region Laterality Modality Other Narrative 02/15/2024 12:00 AM EDT Ordered by an unspecified provider. Scanning Provider MEDIA MGR SCAN EXT O RDR/RSLT * Film Library- Storage Only CT Abdomen & Pelvis (02/15/2024 12:00 AM EDT) Narrative [facility] 03/19/2024 1:43 PM EDT This exam is auto-finalizing. It's purpose is for storage only. Palak Davis MD IMG FILM LIBRARY O RDERABLES [place], [place] * DXA Central Spine, Hip, and/or Whole Body (Generic) (10/18/2023 10:49 AM EDT) WORKSTATION ID [id number] [facility] Anatomical Region Laterality Modality C-spine, Hip N/A Other Addenda Addendum by Luna Curtis MD on 03/08/2024 9:22 PM EDT --------ADDENDUM #1-------- The technique section should read as follows: TECHNIQUE: Scans were acquired at the lumbar spine, left forearm and left hip using the [employer] A system. TBS was also obtained. Thank you for letting us participate in the care of this patient. ??If you are a health care provider and have any questions regarding this report, please contact the number below. ??For patients who have questions please contact the health care associate that requested your imaging first. ? Electronically signed by: Luna Curtis MD, [facility] ([phone]), at 03/08/2024 9:17 PM --------ORIGINAL REPORT -------- EXAMINATION: DXA CENTRAL SPINE, HIP, AND/OR WHOLE [...] mineral density measurements at the lumbar spine. IMPRESSION: 1. ??Measurements meet WHO criteria for normal [...] BMD measurements and plots are available in [email or web address] under the imaging tab. Paper copies will be sent to providers without [employer] access. If you have received this report without the data sheet and do not have access to [employer], please contact Radiology [employer] at [phone] Saturday thru Saturday 8am-4pm. ? Bone Density Report ? Name: ?Yessenia Luong Age: ? 73 Sex: ? Female Ethnicity: ? White Date of : 1950 Referring Provider: SAM DAWSON Study: Bone densitometry was performed. Model: [employer] (S/N [id number]) SW version 13.6.0.5 Exam Date: October 18, 2023 Accession number: [id number] Bone Density: Region ? BMD ?T-score ??Z-score [...] have questions please contact the health care associate that requested your imaging first. ? Electronically signed by: Luna Curtis MD, [facility] ([phone]), at 10/18/2023 1:08 PM Impressions 10/18/2023 1:08 PM EDT 1. ??Measurements [...] BMD measurements and plots are available in [employer] under the imaging tab. Paper copies will be sent to providers without [employer] access. If you have received this report without the data sheet and do not have access to [employer], please contact Radiology [employer] at [phone] Saturday thru Saturday 8am-4pm. ? Bone Density Report ? Name: ?Yessenia Luong Age: ? 73 Sex: ? Female Ethnicity: ? White Date of : 1950 Referring Provider: SAM DAWSON Study: Bone densitometry was performed. Model: [employer] (S/N [id number]) SW version 13.6.0.5 Exam Date: October 18, 2023 Accession number: [id number] Bone Density: Region ? BMD ?T-score ??Z-score [...] have questions please contact the health care associate that requested your imaging first. ? Electronically signed by: Luna Curtis MD, [facility] ([phone]), at 10/18/2023 1:08 PM Narrative 10/18/2023 1:08 [...] left forearm and left hip using the [employer] A system. COMPARISON: None FINDINGS: Femoral neck [...] spine, left forearm and lefthip using the [employer] A system. COMPARISON: None FINDINGS: Femoral neck [...] BMD measurements and plots are available in [employer] the imaging tab. Paper copies will be sent to providers without [employer] access.If you have received this report without the data sheet and do not haveaccess to [employer], please contact Radiology [employer] at [phone] Saturday thruFriday 8am-4pm. Bone Density Report Name: Yessenia Luong Age: 73 Sex: Female Ethnicity: White Date of : 1950 Referring Provider: SAM DAWSON Study: Bone densitometry was performed. Model: [employer] (S/N [id number]) [employer] version 13.6.0.5 Exam Date: October 18, 2023 Accession number: [id number] Bone Density: Region BMD T-score Z-score AP [...] who have questions please contactthe health care associate that requested your imaging first. Electronically signed by: Luna Curtis MD, [facility]([phone]), at 10/18/2023 1:08 PM Sam Dawson MD IMG DEXA ORDERABLE S * Comprehensive metabolic panel (non-fasting) (07/30/2023 11:32 AM EST) Glucose 98 65 - 199 mg/dL [facility] Comment:Diabetes: >=200 mg/d L plus symptoms Blood Urea Nitrogen 10 8 - 18 mg/dL [facility] Creatinine 0.75 0.70 - 1.20 mg/dL [facility] Sodium 140 135 - 145 mmol/L [facility] Potassium 4.6 3.5 - 5.0 mmol/L [facility] Comment: Please note: ??Patients with WBC >100,000 may have falsely elevated Potassium levels. ??For accurate Potassium quantification in these patients send serum separator tube (gold top) for subsequent determinations. ??Contact the Clinical Chemistry Laboratory if there are any questions. Chloride 101 98 - 107 mmol/L [facility] Carbon Dioxide 28 22 - 31 mmol/L [facility] Anion Gap 11 5 - 15 mmol/L [facility] Calcium 10.1 8.5 - 10.5 mg/dL [facility] Protein, Total 7.4 6.1 - 8.0 g/dL [facility] Albumin 4.5 3.2 - 5.2 g/dL [facility] Aspartate Aminotransferase 22 0 - 30 unit/L [facility] Alanine Aminotransferase 18 0 - 30 unit/L [facility] Alkaline Phosphatase 77 35 - 105 unit/L [facility] Bilirubin, Total 0.4 0.2 - 1.3 mg/dL [facility] Est Glomerular Filtration Rate 83 >=60 mL/min/1. 73 m?? [facility] Comment: This patient's estimated GFR [...] Lab Sam Dawson MD CHEMISTRY ORDERABL ES [facility] [place] [address] from Last 3 Months or Most Recently Relevant to Health Maintenance Advance Directives * Full Code (Latest Code Status on File) Date Activated Date Inactivated Comments 06/14/2015 4:01 PM 06/15/2015 7:08 PM Question Answer Comments Does patient have capacity to make decision: Yes Care Teams Ammonia Box Operator Relationship Specialty Start Date End Date Dana Cedillo DO [address] [place] [address] PCP - General Family Medicine 10/16/23
--- OUTSIDE RECORDS SUMMARY | 2024-04-30 13:10 | XMS_ITS | Encounter Summary ---
Author Organization [facility] Address [facility] [place] [address] Care Team Providers Care Screedman Name Role Phone Guerline Quigley Rodolfo VALDES Primary Care Provider [phone] Encounter Details Date Type Department Care Team (Late st Contact Info) Description 07/16/2023 Telephone Cardiology at [address] [place] [address] Liam Noel MD [facility] [place] [place] [address] Social History Tobacco Use Types Packs/Day Years [...] due malaise and brain fog Current plan: jewel stringer will treat her osteopenia with a new drug. She wants to try that new drug and see how she tolerates it before restarting the nexletol. * Telephone Encounter - Kerrie Chantell R - 07/16/2023 3:26 PM EST Patient called to ask what her cholesterol was on the last test. And is it okay? She said she stop her nexletol with the doctors permission but she fractured her left foot about 6 weeks ago. Was that caused by the medication? Please call her back @ [phone] documented in this encounter Plan of Treatment Upcoming Encounters Date Type Department Care Team (Late st Contact Info) Description 03/16/2025 1:30 PM EDT Office Visit Dermatology at [address] [place] [phone] Emiliano Salians MD [address], [place] [address] documented as of this encounter Visit Diagnoses Not on filedocumented in this encounter Care Teams Screedman Relationship Specialty Start Date End Date Guerline Quigley APRN PCP - General Family Medicine 03/18/23 09/29/23 documented as of this encounter
--- OUTSIDE RECORDS SUMMARY | 2024-04-30 13:10 | XMS_ITS | Encounter Summary ---
Author Organization [facility] [place] [address] Care Team Providers Care Registered Private Duty Nurse Name Role Phone Veronica Barrios APRN Primary Care Provider [phone] Encounter Details Date Type Department Care Team (Late st Contact Info) Description 10/29/2022 External Results Cardiology at [address] [address] Liam Noel MD [facility] [place] [address] Social History Tobacco Use Types Packs/Day Years [...] 1:30 PM EDT Office Visit Dermatology at [address] [address] Emiliano Salinas MD [address] [place] [address], [place] [address] documented as of this encounter Procedures Procedure [...] filedocumented in this encounter Care Teams Registered Private Duty Nurse Relationship Specialty Start Date End Date Veronica Barrios APRN [address] [place] [address] PCP - General Family Medicine 08/27/22 03/17/23 documented as of this encounter
--- OUTSIDE RECORDS SUMMARY | 2024-04-30 13:10 | XMS_ITS | Encounter Summary ---
Author Organization [facility] Pieter fuentes[place]and [place] [address] Care Team Providers Care Wharf Hand Name Role Phone Veronica Barrios Liyah VALDES Primary Care Provider Encounter Details Date Type Department Care Team (Late st Contact Info) Description 12/27/2022 Ancillary Procedure Radiology Library [place] [phone] Guerline Quigley APRN [address] [place] [address] Social History Tobacco Use Types Packs/Day Years [...] 1:30 PM EDT Office Visit Dermatology at [address] [place] [address] Emiliano Salinas MD [address] [facility], BAKARI [place] [address] documented as of this encounter Procedures Procedure Name Priority Date/Time Associated Diagnosis Comments FILM LIBRARY- STORAGE ONLY DXA IMAGES Routine 12/27/2022 12:00 AM EDT documented in this encounter Results * Film Library- Storage Only DXA Images (12/27/2022 12:00 AM EDT) Narrative EFRAIN [place]EN[place] - 08/07/2023 3:20 PM EST This exam is auto-finalizing. It's purpose is for storage only. Guerline Quigley APRN IMAdwoa FILM LIBRARY ORD ERABLES [place], [place] documented in this encounter Visit Diagnoses Not on filedocumented in this encounter Care Teams Wharf Hand Relationship Specialty Start Date End Date Veronica Barrios APRN [address] [place] [address] PCP - General Family Medicine 08/27/22 03/17/23 documented as of this encounter
--- OUTSIDE RECORDS SUMMARY | 2024-04-30 13:10 | XMS_ITS | Encounter Summary ---
Author Organization [facility] [place] [address] Care Team Providers Care Boiling Off Winder Name Role Phone Veronica Barrios APRN Primary Care Provider [phone] Encounter Details Date Type Department Care Team [...] 1:30 PM EDT Office Visit Dermatology at [place] [address] [place] [place] [address] [address] MD [address] [facility], [place] [address] documented as of this encounter Visit Diagnoses Not on filedocumented in this encounter Care Teams Boiling Off Winder Relationship Specialty Start Date End Date Veronica Barrios APRN [address] [place] [address] PCP - General Family Medicine 08/27/22 03/17/23 documented as of this encounter
--- OUTSIDE RECORDS SUMMARY | 2024-04-30 13:10 | XMS_ITS | Encounter Summary ---
Author Organization [facility] [place] [address] Care Team Providers Care Flour Blender Helper Name Role Phone Dana Cedillo DO Primary Care Provider [phone] Encounter Details Date Type Department Care Team (Late st Contact Info) Description 10/30/2023 Telephone [place] [phone] Luna Lazcano RN Social History Tobacco Use [...] 10/30/2023 2:33 PM EDT Copied from CRM #[id number]. Topic: Specialty Dept CRMs - Medication Issues [...] 1:30 PM EDT Office Visit Dermatology at [place] [address] [place] [address] Emiliano Salinas MD [address], BAKARI [place] [address] documented as of this encounter Visit Diagnoses Not on filedocumented in this encounter Care Teams Flour Blender Helper Relationship Specialty Start Date End Date Dana Cedillo DO [address] [place] [address] PCP - General Family Medicine 10/16/23 documented as of this encounter
--- OUTSIDE RECORDS SUMMARY | 2024-04-30 13:10 | XMS_ITS | Encounter Summary ---
Author Organization [facility] [place] [address] Care Team Providers Care Green Inspector Name Role Phone Guerline Quigley BRAND COMMUNICATIONS MANAGER Primary Care Provider [phone] Encounter Details Date Type Department Care Team (Late st Contact Info) Description 08/02/2023 Telephone [place] [address] Luna Lazcano RN Social History Tobacco Use [...] - 08/02/2023 10:43 AM EST Copied from [facility] #[id number]. Topic: Specialty Dept CRMs - Generic Call >> Aug 02, 2023 10:31 AM oJsefa Hatch wrote: Specialist: Virginia Everett MD Relationship [...] will be ordered requesting to send to [facility] - [address] [place] [address] phone -[phone], unable to provide fax. >> Aug 02, 2023 10:41 AM September R wrote: Patient called back in to let the office know her PCP is sending the T3 lab over to the office documented in this encounter Plan of Treatment Upcoming Encounters Date Type Department Care Team (Late st Contact Info) Description 03/16/2025 1:30 PM EDT Office Visit Dermatology at [address] [place] [address] Emiliano Salinas MD [address], [place] [address] documented as of this encounter Visit Diagnoses Not on filedocumented in this encounter Care Teams Green Inspector Relationship Specialty Start Date End Date Guerline Quigley APRN PCP - General Family Medicine 03/18/23 09/29/23 documented as of this encounter
--- OUTSIDE RECORDS SUMMARY | 2024-04-30 13:10 | XMS_ITS | Encounter Summary ---
Author Organization [facility] Address [facility] [place] [address] Care Team Providers Care Yard Truck Driver Name Role Phone Guerline Quigley Rodolfo VALDES Primary Care Provider [phone] Reason for Visit * Reason Onset Date Comments Abnormal Bruising 05/20/2023 Encounter Details Date Type Department Care Team (Late st Contact Info) Description 05/20/2023 Telephone Cardiology at [address] [address] Liam Noel MD [facility] [place] [address] Abnormal Bruising Social History Tobacco Use Types [...] evaluated by a doctor. Call back to [phone] to ask for a nurse if you need to discuss it further. * Telephone Encounter - KerrieChantell Jena - 05/20/2023 9:10 AM EST Patient called because her left foot swelled on the top and got black and blue. She said she looked up online and clogged arteries can do that. Please call her back @ [phone] documented in this encounter Plan of Treatment Upcoming Encounters Date Type Department Care Team (Late st Contact Info) Description 03/16/2025 1:30 PM EDT Office Visit Dermatology at [address] [place] [phone] Emiliano Salinas MD [address] [address], [place] [address] documented as of this encounter Visit Diagnoses Not on filedocumented in this encounter Care Teams Yard Truck Driver Relationship Specialty Start Date End Date Guerline Quigley APRN PCP - General Family Medicine 03/18/23 09/29/23 documented as of this encounter
--- OUTSIDE RECORDS SUMMARY | 2024-04-30 13:10 | XMS_ITS | Encounter Summary ---
Author Organization [facility] Address [facility] [place] [address] Care Team Providers Care Lofter Name Role Phone Veronica Barrios Liyah VALDES Primary Care Provider Reason for Visit * Reason Onset Date Comments Medication Change/management 11/27/2022 Encounter Details Date Type Department Care Team (Late st Contact Info) Description 11/27/2022 Telephone Cardiology at [address] [address] Liam Noel MD [facility] [place] [address] Medication Change/management Social History Tobacco Use Types [...] medication Nexletol 180 mg every other day. Moody start it by December 04. The delay [...] 1:30 PM EDT Office Visit Dermatology at [place] [address] [facility] [place] [address] Emiliano Salinas MD [address] [facility], BAKARI [place] [address] documented as of this encounter Visit Diagnoses Not on filedocumented in this encounter Care Teams Lofter Relationship Specialty Start Date End Date Veronica Barrios APRN [address] [place] [address] PCP - General Family Medicine 08/27/22 03/17/23 documented as of this encounter
--- OUTSIDE RECORDS SUMMARY | 2024-04-30 13:10 | XMS_ITS | Encounter Summary ---
Author Organization [facility] Address [facility] [place] [address] Care Team Providers Care Swimming Coach Or Instructor Name Role Phone Guerline Quigley KEISHA Primary Care Provider [phone] Encounter Details Date Type Department Care Team (Late st Contact Info) Description 09/30/2023 Telephone Cardiology at [address] [place] [address] Liam Noel MD [facility] [place] [address] Social History Tobacco Use Types Packs/Day Years [...] 1:30 PM EDT Office Visit Dermatology at [place] [address] [facility] [place] [address] Emiliano Salinas MD [address] [facility] [facility] [address], [place] [address] documented as of this encounter Visit Diagnoses Not on filedocumented in this encounter Care Teams Swimming Coach Or Instructor Relationship Specialty Start Date End Date Guerline Quigley APRN PCP - General Family Medicine 09/30/23 10/15/23 documented as of this encounter
--- OUTSIDE RECORDS SUMMARY | 2024-04-30 13:10 | XMS_ITS | Encounter Summary ---
Author Organization [place] [address] Care Team Providers Care Doctor Osteopathic Name Role Phone Veronica Barrios Liyah VALDES Primary Care Provider Reason for Visit * Reason Comments Medication Management Encounter Details Date Type Department Care Team (Late st Contact Info) Description 09/27/2022 Specialty [place] [phone] Louie Sosa RPH Social History Tobacco Use [...] Sosa RPH Comprehensive Medication Management (CMM) Yessenia Hatch Ag [address] [facility] [address] Telephone Information: Work Phone Not on file. [...] made at the appointment and that [facility] is[facility]iding recommendations (summary located [...] 1:30 PM EDT Office Visit Dermatology at [place] [address] [facility] [place] [address] Emiliano Salinas MD [address] [facility], [place] [address] documented as of this encounter Visit Diagnoses Not on filedocumented in this encounter Care Teams Doctor Osteopathic Relationship Specialty Start Date End Date Veronica Barrios APRN [address] [place] [address] PCP - General Family Medicine 08/27/22 03/17/23 documented as of this encounter
--- OUTSIDE RECORDS SUMMARY | 2024-04-30 13:10 | XMS_ITS | Encounter Summary ---
Author Organization [facility] Address [facility] [place] [address] Care Team Providers Care General Warehouse Worker Name Role Phone Veronica Barrios APRN Primary Care Provider Encounter Details Date Type Department Care Team (Latest Contact Info) Description 09/03/2022 Orders Only Cardiology at [address] [address] Liam Noel MD [facility] [place] [place] [address] Familial hypercholesterolemia Social History Tobacco Use Types [...] 1:30 PM EDT Office Visit Dermatology at [place] [address] [facility] [place] [address] Emiliano Salinas MD [address] [facility] [address], [place] [address] documented as of this encounter Visit Diagnoses Diagnosis Familial hypercholesterolemia Pure hypercholesterolemia documented in this encounter Care Teams General Warehouse Worker Relationship Specialty Start Date End Date Veronica Barrios APRN [address] [place] [address] PCP - General Family Medicine 08/27/22 03/17/23 documented as of this encounter
--- OUTSIDE RECORDS SUMMARY | 2024-04-30 13:10 | XMS_ITS | Encounter Summary ---
Author Organization [facility] Address [facility] [place] [address] Care Team Providers Care Toll Lineman Name Role Phone Dana Cedillo DO Primary Care Provider [phone] Encounter Details Date Type Department Care Team (Late st Contact Info) Description 10/18/2023 Telephone [place] [address] Virginia Everett MD [facility] [place] [address] Social History Tobacco Use Types Packs/Day Years [...] 1:30 PM EDT Office Visit Dermatology at [place] [address] [facility] [place] [address] Emiliano Salinas MD [address], BAKARI [place]hat[place] [address] documented as of this encounter Visit Diagnoses Not on filedocumented in this encounter Care Teams Toll Lineman Relationship Specialty Start Date End Date Dana Cedillo DO [address] [place] [address] PCP - General Family Medicine 10/16/23 documented as of this encounter
--- OUTSIDE RECORDS SUMMARY | 2024-04-30 13:10 | XMS_ITS | Encounter Summary ---
Author Organization [facility] Address [facility] [place] [address] Care Team Providers Care Kier Pleater Name Role Phone Veronica Barrios KEISHA Primary Care Provider [phone] Reason for Visit * Reason Comments Skin Lesion Encounter Details Date Type Department Care Team (Late st Contact Info) Description 08/30/2022 9:00 AM EDT Office Visit Dermatology at [facility] [address] [place] [address] Star Moura MD [facility] [place] [address] Encounter for cosmetic laser procedure Social History [...] Notes * Anthony Batres CCMA - 08/30/2022 9:00 AM EDT COSMETIC DERMATOLOGY [...] and signed by: Star Moura MD Dermatology [facility] documented in this encounter Plan of Treatment Upcoming Encounters Date Type Department Care Team (Late st Contact Info) Description 03/16/2025 1:30 PM EDT Office Visit Dermatology at [place] [address] [facility] [place] [address] Emiliano Salinas MD [address] [facility], [place] [address] documented as of this encounter Visit Diagnoses Diagnosis Encounter for cosmetic laser procedure documented in this encounter Care Teams Kier Pleater Relationship Specialty Start Date End Date Veronica Barrios APRN [address] [place] [address] PCP - General Family Medicine 08/27/22 03/17/23 documented as of this encounter
--- OUTSIDE RECORDS SUMMARY | 2024-04-30 13:10 | XMS_ITS | Encounter Summary ---
Author Organization [facility] [place] [address] Care Team Providers Care Interactive Video Technician Name Role Phone Dana Cedillo DO Primary Care Provider [phone] Encounter Details Date Type Department Care Team [...] 1:30 PM EDT Office Visit Dermatology at [place] [address] [place] [address] Emiliano Salinas MD [address] [facility] [address], MANINDER A DERMATOLOGY [place], [place] [address] documented as of this encounter Visit Diagnoses Not on filedocumented in this encounter Care Teams Interactive Video Technician Relationship Specialty Start Date End Date Dana Cedillo DO [address] [place] [address] PCP - General Family Medicine 10/16/23 documented as of this encounter
--- OUTSIDE RECORDS SUMMARY | 2024-04-30 13:10 | XMS_ITS | Encounter Summary ---
Author Organization [facility] Address [facility] [place] [address] Care Team Providers Care Precision Lens Generator Name Role Phone Dana Cedillo DO Primary Care Provider [phone] Encounter Details Date Type Department Care Team (Latest Contact Info) Description 10/18/2023 9:58 AM EDT - 10/18/2023 11:59 PM EDT Hospital Encounter Mammography/[place] [address] Sam Dawson MD [facility] [place] [address] Pathological fracture of left foot due to [...] Sig Dispensed Refills Start Date End Date cholecalciferol, Vitamin D3, 25 mcg (1,000 unit) Capsule TAKE ONE CAPSULE BY MOUTH EVERY DAY DIRECTED 06/10/2023 VITAMIN B COMPLEX ORAL Take 1 capsule by mouth every morning. 06/05/2023 calcium carbonate/vitamin D3 (CALCIUM WITH VITAMIN D3 ORAL) Take by mouth daily. fexofenadine (Glory) 180 mg tablet Take 180 mg by mouth daily. levothyroxine (Synthroid) 50 mcg tablet TAKE ONE TABLET BY MOUTH EVERY MORNING ON AN EMPTY STOMACH fluticasone propionate (Flonase) 50 mcg/actuation [place], Suspension Every 12 hours. 10/17/2020 traZODone (Desyrel) 150 mg tablet Take 200 mg by mouth nightly. 10/24/2022 EPINEPHrine 0.3 mg/0.3 mL Auto-Injector as needed. [...] (for MODERATE pain). 30 tablet 1 06/15/2015 hydroCHLOROthiazide 12.5 mg tablet Take 1 tablet by mouth daily. 90 tablet 3 09/30/2023 03/13/2024 bempedoic acid (Nexletol) 180 mg tabletIndications:Mixed hyperlipidemia Take 1 tablet by mouth daily. 90 tablet 3 08/08/2023 02/11/2024 Vraylar 1.5 mg capsule TAKE ONE CAPSULE BY MOUTH EVERY EVENING WITH FOOD 10/21/2022 04/29/2024 meloxicam (Mobic) 7.5 mg tablet 06/14/2022 03/13/2024 montelukast (Singulair) 10 mg tablet 1 tablet. 10/19/2022 01/22/2024 icosapent ethyL (Vascepa) 1 gram capsule Take 2 g by mouth 2 times daily. 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 TBS was also obtained. Thank you for letting us participate in the care of this patient. ??If you are a health care provider and have any questions regarding this report, please contact the number below. ??For patients who have questions please contact the health primary health care nurse that requested your imaging first. ? Electronically signed by: Luna Curtis MD, [facility] ([phone]), at 03/08/2024 9:17 PM --------ORIGINAL REPORT -------- [...] left forearm and left hip using the HoloKrowder Horizon A system. COMPARISON: None FINDINGS: Femoral [...] BMD measurements and plots are available in E-DH under the imaging tab. Paper copies will be sent to providers without E- access. If you have received this report without the data sheet and do not have access to [employer], please contact Radiology Gift Packer at [phone] Saturday thru Saturday 8am-4pm. ? Bone Density Report ? Name: ?Yessenia Luong Age: ? 73 Sex: ? Female Ethnicity: ? White Date of : 1950 Referring Provider: SAM DAWSON Study: Bone densitometry was performed. Model: Fortify Software A (S/N [id number]) SW version 13.6.0.5 Exam Date: October 18, 2023 Accession number: [id number] Bone Density: Region ? BMD ?T-score ??Z-score [...] who have questions please contact the health primary health care nurse that requested your imaging first. ? Impressions 10/18/2023 1:08 PM EDT 1. ??Measurements [...] BMD measurements and plots are available in [facility] [place] under the imaging tab. Paper copies will be sent to providers without E- access. If you have received this report without the data sheet and do not have access to [facility] [place], please contact Radiology Gift Packer at [phone] Saturday thru Saturday 8am-4pm. ? Bone Density Report ? Name: ?Ag Yessenia S Age: ? 73 Sex: ? Female Ethnicity: ? White Date of : 1950 Referring Provider: SAM DAWSON Study: Bone densitometry was performed. Model: Fortify Software A (S/N [id number]) SW version 13.6.0.5 Exam Date: October 18, 2023 Accession number: [id number] Bone Density: Region ? BMD ?T-score ??Z-score [...] who have questions please contact the health primary health care nurse that requested your imaging first. ? Electronically signed by: Luna Curtis MD, [facility] ([phone]), at 10/18/2023 1:08 PM Narrative 10/18/2023 1:08 [...] BMD measurements and plots are available in ESpaciousunder the imaging tab. Paper copies will be sent to providers without IP Street access.If you have received this report without the data sheet and do not haveaccess to IP [address], please contact Radiology Gift Packer at [phone] Saturday thruFriday 8am-4pm. Bone Density Report Name: Yessenia Luong Age: 73 Sex: Female Ethnicity: White Date of : 1950 Referring Provider: SAM DAWSON Study: Bone densitometry was performed. Model: Studio Pangea (S/N [id number]) [employer] version 13.6.0.5 Exam Date: October 18, 2023 Accession number: [id number] Bone Density: Region BMD T-score Z-score AP [...] patients who have questions please contactthe health primary health care nurse that requested your imaging first. Electronically signed by: Luna Curtis MD, [facility]([phone]), at 10/18/2023 1:08 PM Sam Dawson MD IMG DEXA ORDERABLE S documented in this encounter Visit Diagnoses Diagnosis 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, subsequent encounter documented in this encounter Care Teams Precision Lens Generator Relationship Specialty Start Date End Date Dana Cedillo DO [address] [place] [address] PCP - General Family Medicine 10/16/23 documented as of this encounter
--- OUTSIDE RECORDS SUMMARY | 2024-04-30 13:10 | XMS_ITS | Encounter Summary ---
Author Organization [facility] [place] [address] Care Team Providers Care Stain Maker Name Role Phone Veronica Barrios APRN [...] 1:30 PM EDT Office Visit Dermatology at [place] [address] [facility] [address] Emiliano Salinas MD [address] [facility], [place] [address] documented as of this encounter Visit Diagnoses Not on filedocumented in this encounter Care Teams Stain Maker Relationship Specialty Start Date End Date Veronica Barrios APRN [address] [place] [address] PCP - General Family Medicine 08/27/22 03/17/23 documented as of this encounter
--- OUTSIDE RECORDS SUMMARY | 2024-04-30 13:10 | XMS_ITS | Encounter Summary ---
Author Organization [facility] [place] [address] Care Team Providers Care Blocker And Cutter Contact Lens Name Role Phone Veronica Barrios APRN Primary Care Provider [phone] Encounter Details Date Type Department Care Team (Late st Contact Info) Description 08/27/2022 Transcribe Orders eDH Incoming Referrals [phone] Veronica Barrios APRN [address] [place] [address] Social History Tobacco Use Types Packs/Day Years [...] 1:30 PM EDT Office Visit Dermatology at [place] [address] [facility] [place] [address] Emiliano Salinas MD 580 [facility], BAKARI Bhat[place] [address] documented as of this encounter Visit Diagnoses Not on filedocumented in this encounter Care Teams Blocker And Cutter Contact Lens Relationship Specialty Start Date End Date Veronica Barrios APRN [address] [place] [address] PCP - General Family Medicine 08/27/22 03/17/23 documented as of this encounter
--- OUTSIDE RECORDS SUMMARY | 2024-04-30 13:10 | XMS_ITS | Encounter Summary ---
Author Organization [facility] [place] [address] Care Team Providers Care Residential Interior Designer Name Role Phone Guerline Quigley APRN Primary Care Provider [phone] Encounter Details Date Type Department Care Team [...] 1:30 PM EDT Office Visit Dermatology at [place] 580 [facility] [place] [address] Emiliano Salinas MD [address], [place] [address] documented as of this encounter Visit Diagnoses Not on filedocumented in this encounter Care Teams Residential Interior Designer Relationship Specialty Start Date End Date Guerline Quigley APRN PCP - General Family Medicine 03/18/23 09/29/23 documented as of this encounter
--- OUTSIDE RECORDS SUMMARY | 2024-04-30 13:10 | XMS_ITS | Encounter Summary ---
Author Organization [facility] [place] [address] Care Team Providers Care End User Consultant Name Role Phone Guerline Quigley KEISHA Primary Care Provider [phone] Encounter Details Date Type Department Care Team (Late st Contact Info) Description 07/30/2023 Tele[place] [address] Luna Lazcano RN Social History Tobacco Use [...] - 07/30/2023 1:48 PM EST Copied from [facility] #[id number]. Topic: Specialty Dept CRMs - Generic Call [...] 1:30 PM EDT Office Visit Dermatology at [place] [address] [facility] [place] [address] Emiliano Salinas MD [address], [place] [address] documented as of this encounter Visit Diagnoses Not on filedocumented in this encounter Care Teams End User Consultant Relationship Specialty Start Date End Date Guerline Quigley APRN PCP - General Family Medicine 03/18/23 09/29/23 documented as of this encounter
--- OUTSIDE RECORDS SUMMARY | 2024-04-30 13:10 | XMS_ITS | Encounter Summary ---
Author Organization [facility] [place]ario [place] [address] Care Team Providers Care Sewer Pipe Layer Name Role Phone Veronica Barrios APRN Primary Care Provider [phone] Reason for Referral * Consultation (Urgent) - Closed Specialty Diagnoses / Procedures Referred By Contsherry t Referred To Contact Cardiology Diagnoses Familial hypercholesterolemia Familial hypercholesterolemia. Veronica Barrios APRN [address] [place] [address] Lit Cardiology [address] [place] [address] Referral ID Status Reason Start Date Expiration Date V isits Requested Visits Authorized [id number] Closed Consult, Test & Treat PCP Updated and/or Approved 08/27/2022 08/27/2023 6 6 Encounter Details Date Type Department Care Team (Latest Contact Info) Description 08/27/2022 Transcribe Orders eDH Incoming Referrals [phone] Veronica Barrios APRN [address] [place] [address] Familial hypercholesterolemia Social History Tobacco [...] 1:30 PM EDT Office Visit Dermatology at [place] 580 [facility] [place] [address] Emiliano Salinas MD 580 [facility], BAKAR[place] [address] Scheduled Referrals Name Type Priority Associated Diagnoses Orde r Schedule Referral to Cardiology Outpatient Referral Urgent Familial hypercholesterolemia Ordered: 08/27/2022 documented as of this encounter Visit Diagnoses Diagnosis Familial hypercholesterolemia Pure hypercholesterolemia documented in this encounter Care Teams Sewer Pipe Layer Relationship Specialty Start Date End Date Veronica Barrios APRN [address] [place] [address] PCP - General Family Medicine 08/27/22 03/17/23 documented as of this encounter
--- OUTSIDE RECORDS SUMMARY | 2024-04-30 13:10 | XMS_ITS | Encounter Summary ---
Author Organization [facility] [place] [address] Care Team Providers Care Diesel Engine I Pipe Fitter Name Role Phone Mary Altamirano MD Primary Care Provider [phone] Reason for Visit * Reason Onset Date Comments Referral 08/22/2022 Encounter Details Date Type Department Care Team (Late st Contact Info) Description 08/22/2022 Telephone Cardiology at [address] [place] [address] Ashlyn Celis, inspection machine tender Social History Tobacco Use Types Packs/Day Years [...] EDT Yessenia has been with Cardiology in [place]. Last appointment was July. Next appointment is due in November and she prefers to transfer cardiology care to a embedded firmware engineer in the [facility] Cardiology clinic. Request: PCP to confirm that transfer of cardiology care to the closer provider is an appropriate referral. This clinic can accommodate a new appointment in November. documented in this encounter Plan of Treatment Upcoming Encounters Date Type Department Care Team (Late st Contact Info) Description 03/16/2025 1:30 PM EDT Office Visit Dermatology at [place] 580 [facility] [place] [address] Emiliano Salinas MD [address], [place] [address] documented as of this encounter Visit Diagnoses Not on filedocumented in this encounter Care Teams Diesel Engine I Pipe Fitter Relationship Specialty Start Date End Date Mary Altamirano MD PCP - General Family Medicine 01/26/22 08/26/22 documented as of this encounter
--- OUTSIDE RECORDS SUMMARY | 2024-04-30 13:10 | XMS_ITS | Encounter Summary ---
Author Organization [facility] [place] [address] Care Team Providers Care Medical Billing Coder Name Role Phone Veronica Barrios APRN Primary Care Provider Encounter Details Date Type Department Care Team (Late st Contact Info) Description 09/03/2022 Abstract Cardiology at [address] [address] Ashlyn Celis, RN Mixed hyperlipidemia [...] 1:30 PM EDT Office Visit Dermatology at [address] [address] Emiliano Salinas MD 580 [facility], [facility] DERMATOLOGY [place], [place] [address] documented as of this encounter Visit Diagnoses Diagnosis Mixed hyperlipidemia documented in this encounter Care Teams Medical Billing Coder Relationship Specialty Start Date End Date Veronica Barrios APRN [address] [place] [address] PCP - General Family Medicine 08/27/22 03/17/23 documented as of this encounter
--- OUTSIDE RECORDS SUMMARY | 2024-04-30 13:10 | XMS_ITS | Encounter Summary ---
Author Organization [facility] Address [facility] [place] [address] Care Team Providers Care Drying Oven Tender Name Role Phone Paul Barriosah Liyah VALDES Primary Care Provider Encounter Details Date Type Department Care Team (Late st Contact Info) Description 08/27/2022 Telephone Cardiology at [address] [place] [address] Liam Noel MD [facility] [place] [address] Social History Tobacco Use Types Packs/Day Years [...] Telephone Encounter - Dariela Manzano RN - 08/28/2022 10:31 AM EDT Voice message from Yessenia requesting 3 month script for emmy. Acknowledges she will be following up with Dr Noel later this year as Dr Santiago is no longer at [facility]. Return call to Yessenia voice [...] and she should hear back from someone. [phone] documented in this encounter Plan of Treatment Upcoming Encounters Date Type Department Care Team (Late st Contact Info) Description 03/16/2025 1:30 PM EDT Office Visit Dermatology at [address] [place] [address] [address] Sal[address] MD [address] [facility], [place] [address] documented as of this encounter Visit Diagnoses Not on filedocumented in this encounter Care Teams Drying Oven Tender Relationship Specialty Start Date End Date Veronica Barrios APRN [address] [place] [address] PCP - General Family Medicine 08/27/22 03/17/23 documented as of this encounter
--- OUTSIDE RECORDS SUMMARY | 2024-04-30 13:10 | XMS_ITS | Encounter Summary ---
Author Organization [facility] Address [facility] [place] [address] Care Team Providers Care Tapper Balance Wheel Screw Hole Name Role Phone Veronica Barrios Liyah VALDES Primary Care Provider Encounter Details Date Type Department Care Team (Late st Contact Info) Description 02/06/2023 Telephone Cardiology at [address] [place] [address] Liam Noel MD [facility] [place] [address] Social History Tobacco Use Types Packs/Day Years [...] orders verified and will fax to [facility] lab per patient request. documented in this encounter Plan of Treatment Upcoming Encounters Date Type Department Care Team (Late st Contact Info) Description 03/16/2025 1:30 PM EDT Office Visit Dermatology at [place] 580 [facility] [place] [address] Emiliano Salinas MD 580 [facility], MANINDER [place] [address] documented as of this encounter Visit Diagnoses Not on filedocumented in this encounter Care Teams Tapper Balance Wheel Screw Hole Relationship Specialty Start Date End Date Veronica Barrios APRN [address] [place] [address] PCP - General Family Medicine 08/27/22 03/17/23 documented as of this encounter
--- OUTSIDE RECORDS SUMMARY | 2024-04-30 13:10 | XMS_ITS | Encounter Summary ---
Author Organization [facility] [place] [address] Care Team Providers Care Branch Or Department Chief Librarian Name Role Phone Guerline Quigley APRN Primary Care Provider [phone] Encounter Details Date Type Department Care Team (Late st Contact Info) Description 03/18/2023 External Results Cardiology at [address] [address] Ashlyn Celis, RN Social History [...] 1:30 PM EDT Office Visit Dermatology at [address] [address] Emiliano Salinas MD 580 [facility] DERMATOLOGY [place], [place] [address] documented as of this encounter Procedures Procedure Name Priority Date/Time Associated Diagnosis Comments LIPID EXTERNAL LAB PANEL Routine 03/14/2023 10:00 AM EDT documented in this encounter Results * Lipid External Lab Panel (03/14/2023 10:00 AM EDT) Cholesterol, Total 280 [facility] Triglyceride 100 [facility] HDL Cholesterol [address] [facility] [address] [facility] LDL Cholesterol 186.[address] [facility] 03/14/2023 10:0 0 AM EDT Historical Provider EXTERNAL LAB HERMELINDA CURTIS [facility] [address] [place] [address], [facility] [phone] documented in this encounter Visit Diagnoses Not on filedocumented in this encounter Care Teams Branch Or Department Chief Librarian Relationship Specialty Start Date End Date Guerline Qiugley APRN PCP - General Family Medicine 03/18/23 09/29/23 documented as of this encounter
--- OUTSIDE RECORDS SUMMARY | 2024-04-30 13:10 | XMS_ITS | Encounter Summary ---
Author Organization [facility] [place] [address] Care Team Providers Care Fishery Division Chief Name Role Phone Veronica Barrios APRN Primary [...] 1:30 PM EDT Office Visit Dermatology at [place] 580 [facility] [place] [address] mEiliano Salinas MD [address] [facility], [place] [address] documented as of this encounter Visit Diagnoses Not on filedocumented in this encounter Care Teams Fishery Division Chief Relationship Specialty Start Date End Date Veronica Barrios APRN [address] [place] [address] PCP - General Family Medicine 08/27/22 03/17/23 documented as of this encounter
--- OUTSIDE RECORDS SUMMARY | 2024-04-30 13:10 | XMS_ITS | Encounter Summary ---
Author Organization [facility] [place] [address] Care Team Providers Care Integration Consultant Name Role Phone Dana Cedillo DO Primary Care Provider [phone] Reason for Visit * Reason Onset Date Comments Other 11/26/2023 Encounter Details Date Type Department Care Team (Late st Contact Info) Description 11/26/2023 Tele[place] [address] Raeann Ortega RN Other Social History Tobacco Use Types [...] 11/26/2023 9:30 AM EDT Copied from CRM #[id number]. Topic: Specialty Dept CRMs - Test Results >> Nov 25, 2023 10:00 AM Susan Muller wrote: Test Results Request Specialist: Virginia Everett MD Relationship (if other than patient-full name): Self Ordering Provider: Virginia Everett MD Type of Test: 24 Urine test Date of Test: 11/18/23 Where Was This Test Performed: [facility] Patient will be available after 1pm today. Please call back to discuss. documented in this encounter Plan of Treatment Upcoming Encounters Date Type Department Care Team (Late st [facility] Info) Description 03/16/2025 1:30 PM EDT Office Visit Dermatology at [place] 580 [facility] [place] [address] Emiliano Salinas MD [address] [facility] [address], [place] [address] documented as of this encounter Visit Diagnoses Not on filedocumented in this encounter Care Teams Integration Consultant Relationship Specialty Start Date End Date Dana Cedillo DO [address] [place] [address] PCP - General Family Medicine 10/16/23 documented as of this encounter
--- OUTSIDE RECORDS SUMMARY | 2024-04-30 13:10 | XMS_ITS | Encounter Summary ---
Author Organization [facility] Address [facility] [place] [address] Care Team Providers Care Joint Cutter Name Role Phone Guerline Quigley KEISHA Primary Care Provider [phone] Encounter Details Date Type Department Care Team (Late st Contact Info) Description 06/17/2023 Telephone Cardiology at [address] [place] [address] Liam Noel MD [facility] [place] [address] Social History Tobacco Use Types Packs/Day Years [...] 10:42 AM EST Liam Noel MD to [facility] Card Nurse If she feels it [...] a few weeks. Please call her @ [phone] documented in this encounter Plan of Treatment Upcoming Encounters Date Type Department Care Team (Late st Contact Info) Description 03/16/2025 1:30 PM EDT Office Visit Dermatology at [place] 580 [facility] [place] [address] Emiliano Salinas MD [address] [facility] [address], BAKAR[place] [address] documented as of this encounter Visit Diagnoses Not on filedocumented in this encounter Care Teams Joint Cutter Relationship Specialty Start Date End Date Guerline Quigley APRN PCP - General Family Medicine 03/18/23 09/29/23 documented as of this encounter
--- OUTSIDE RECORDS SUMMARY | 2024-04-30 13:10 | XMS_ITS | Encounter Summary ---
Author Organization [facility] Address [facility] [place] [address] Care Team Providers Care Pharmacy Informatics Manager Name Role Phone Guerline Quigley Rodolfo VALDES Primary Care Provider [phone] Encounter Details Date Type Department Care Team (Late st Contact Info) Description 07/18/2023 Telephone Cardiology at [address] [address] Liam Noel MD [facility] [place] [address] Social History Tobacco Use Types Packs/Day Years [...] acid lab work orders should be [facility] laboratory documented in this encounter Plan of Treatment Upcoming Encounters Date Type Department Care Team (Late st Contact Info) Description 03/16/2025 1:30 PM EDT Office Visit Dermatology at [place] 580 [facility] [place] [address] Emiliano Salinas MD [address] [facility] [address], MANINDER [place] [address] documented as of this encounter Visit Diagnoses Diagnosis Mixed hyperlipidemia documented in this encounter Care Teams Pharmacy Informatics Manager Relationship Specialty Start Date End Date Guerline Quigley APRN PCP - General Family Medicine 03/18/23 09/29/23 documented as of this encounter
--- OUTSIDE RECORDS SUMMARY | 2024-04-30 13:10 | XMS_ITS | Encounter Summary ---
Author Organization [facility] Address [facility] [place] [address] Care Team Providers Care Psychology Clinician Name Role Phone Veronica Barrios Liyah VALDES Primary Care Provider Encounter Details Date Type Department Care Team (Late st Contact Info) Description 09/20/2022 Telephone Cardiology at [address] [address] Liam Noel MD [facility] [place] [address] Social History Tobacco Use Types Packs/Day Years [...] the first appointment. * Telephone Encounter - Susan Syrebecca Bella - 09/20/2022 11:56 AM EDT Patient called because she is going to see Dr Noel in October as a new patient. She would like him to order cholesterol labs to be done at [place] before the appointment. Please call her @ [phone] documented in this encounter Plan of Treatment Upcoming Encounters Date Type Department Care Team (Late st Contact Info) Description 03/16/2025 1:30 PM EDT Office Visit Dermatology at [place] 580 [facility] [place] [address] Emiliano Salinas MD 580 [facility], BAKARI [place] [address] documented as of this encounter Visit Diagnoses Not on filedocumented in this encounter Care Teams Psychology Clinician Relationship Specialty Start Date End Date Veronica Barrios APRN [address] [place] [address] PCP - General Family Medicine 08/27/22 03/17/23 documented as of this encounter
--- OUTSIDE RECORDS SUMMARY | 2024-04-30 13:10 | XMS_ITS | Encounter Summary ---
Author Organization [facility] Address [facility] [place] [address] Care Team Providers Care Test Man Name Role Phone Guerline Quigley SUPERVISOR WINDING DEPARTMENT Primary Care Provider [phone] Encounter Details Date Type Department Care Team (Late st Contact Info) Description 09/30/2023 Orders Only Cardiology at [address] [place] [address] Liam Noel MD [facility] [place] [address] Mixed hyperlipidemia Social History Tobacco Use Types [...] 1:30 PM EDT Office Visit Dermatology at [address] [place] [address] Emiliano Salinas MD [address], MANINDER [place] [address] documented as of this encounter Visit Diagnoses Diagnosis Mixed hyperlipidemia documented in this encounter Care Teams Test Man Relationship Specialty Start Date End Date Guerline Quigley APRN PCP - General Family Medicine 09/30/23 10/15/23 documented as of this encounter
--- OUTSIDE RECORDS SUMMARY | 2024-04-30 13:10 | XMS_ITS | Encounter Summary ---
Author Organization [facility] Address [facility] [place] [address] Care Team Providers Care Heating Element Builder Name Role Phone Guerline Quigley REVIEW TRAINER Primary Care Provider [phone] Encounter Details Date Type Department Care Team (Late st Contact Info) Description 06/19/2023 Orders Only Cardiology at [address] [place] [address] Liam Noel MD [facility] [place] [address] Mixed hyperlipidemia; Chronic urticaria; Hypothyroidism, unspecified type [...] 1:30 PM EDT Office Visit Dermatology at [address] [place] [address] Emiliano Salinas MD [address], [place] [address] documented as of this encounter Visit Diagnoses Diagnosis Mixed hyperlipidemia Chronic urticaria Other specified urticaria Hypothyroidism, unspecified type documented in this encounter Care Teams Heating Element Builder Relationship Specialty Start Date End Date Guerline Quigley APRN PCP - General Family Medicine 03/18/23 09/29/23 documented as of this encounter
--- OUTSIDE RECORDS SUMMARY | 2024-04-30 13:10 | XMS_ITS | Encounter Summary ---
Author Organization [facility] [place] [address] Care Team Providers Care Internal Communications Manager Name Role Phone Mary Altamirano MD Primary Care Provider [phone] Reason for Visit * Reason Comments Prior Authorization Repatha 140mg/mL pen s Encounter Details Date Type Department Care Team (Late st Contact Info) Description 08/06/2022 Specialty [place] [address] Skyler Garcia, HISTOLOGY TEACHER Social History Tobacco Use Types Packs/Day Years [...] Luong Patient : 1950 [address] [address]) Medication Name: REPATHA SURECLICK 140 MG/ML SUBCUTANEOUS PEN INJECTOR Medication ID: [id number] Subscriber Insurance: [facility] Part D Subscriber Insurance Comment: Phone: Fax: Physician: KALEIGH ALEXANDRE Physician Comment: Sent Via: [facility] [place]: [id number] Ref/Case/PA#: Medication Strength Frequency Requested: evolocumab (Repatha SureClick) 140 mg/mL Pen Injector, 1 pen every 14 days Qty/Day Supply: 08/07 New Start: New to Therapy Diagnosis & ICD-10 Code: Familial hypercholesterolemia E78.01 Patient Notified: Left Voicemessage Submission Notes: None Skyler Garcia 08/06/22 2:14 PM * Nam Chan, [facility] - 08/06/2022 2:07 PM EST [facility], Prior Authorization Approval Medication Name: REPATHA SURECLICK 140 MG/ML SUBCUTANEOUS PEN INJECTOR Medication ID: [id number] Approval Dates: 08/06/2022 to 02/03/2023 Insurance requirements/notes: None Other Notes: None Case/Reference #: [id number] Approval notification Received via: [facility] Copay: $0 Copay assistance: [employer] Copay Notes: If cost were to become unaffordable we can assess eligibility for any currently open grants, or refer to [facility] MAP for enrollment in in service education teacher assistance. Insurance mandated Pharmacy: Unknown Fillable at [facility] Specialty Pharmacy: Yes Pharmacy staff will be reaching out to the patient to inform them of their medication[facility]. If applicable, a pharmacist will speak with the patient to offer our specialty pharmacy services and to arrange delivery of their medication. Nam Chan 08/07/22 8:52 AM documented in this encounter Plan of Treatment Upcoming Encounters Date Type Department Care Team (Late st Contact Info) Description 03/16/2025 1:30 PM EDT Office Visit Dermatology at [place] 580 [facility] [place] [address] Emiliano Salinas MD [address] [facility] [address], [place]AR[place] [address] documented as of this encounter Visit Diagnoses Not on filedocumented in this encounter Care Teams Internal Communications Manager Relationship Specialty Start Date End Date Mary Altamirano MD PCP - General Family Medicine 01/26/22 08/26/22 documented as of this encounter
--- OUTSIDE RECORDS SUMMARY | 2024-04-30 13:10 | XMS_ITS | Encounter Summary ---
Author Organization [facility] [place] [address] Care Team Providers Care Office Services Assistant Name Role Phone Guerline Quigley APRN Primary Care Provider [phone] Encounter Details Date Type Department Care Team [...] 1:30 PM EDT Office Visit Dermatology at [place] [address] [facility] [place] [address] Emiliano Salinas MD [address], [place] [address] documented as of this encounter Visit Diagnoses Not on filedocumented in this encounter Care Teams Office Services Assistant Relationship Specialty Start Date End Date Guerline Quigley APRN PCP - General Family Medicine 03/18/23 09/29/23 documented as of this encounter
--- OUTSIDE RECORDS SUMMARY | 2024-04-30 13:10 | XMS_ITS | Encounter Summary ---
Author Organization [facility] [place] [address] Care Team Providers Care Stitch Separator Name Role Phone Guerline Quigley APRN Primary Care Provider [phone] Encounter Details Date Type Department Care Team [...] 1:30 PM EDT Office Visit Dermatology at [place] [address] [facility] [place] [address] Emiliano Salinas MD [address], [place] [address] documented as of this encounter Visit Diagnoses Not on filedocumented in this encounter Care Teams Stitch Separator Relationship Specialty Start Date End Date Guerline Quigley APRN PCP - General Family Medicine 03/18/23 09/29/23 documented as of this encounter
--- OUTSIDE RECORDS SUMMARY | 2024-04-30 13:10 | XMS_ITS | Encounter Summary ---
Author Organization [facility] Address [facility] [place] [address] Care Team Providers Care Physics Technical Officer Name Role Phone Dana Cedillo DO Primary Care Provider [phone] Encounter Details Date Type Department Care Team (Late st Contact Info) Description 01/09/2024 Telephone Cardiology at [address] [address] Liam Noel MD [facility] [place] [address] Social History Tobacco Use Types Packs/Day Years [...] were not included. [facility] [address] [place] [phone] Yessenia called provide message for Dr. Noel [...] Chapa is a Naturopathy provider at [facility] [address] [place] [facility], [place], [place] [id number] documented in this encounter Plan of Treatment Upcoming Encounters Date Type Department Care Team (Late st Contact Info) Description 03/16/2025 1:30 PM EDT Office Visit Dermatology at [place] [address] [facility] [place] [address] Emiliano Salinas MD [address] [facility], MANINDER A DERMATOLOGY [place], [place] [phone] documented as of this encounter Visit Diagnoses Not on filedocumented in this encounter Care Teams Physics Technical Officer Relationship Specialty Start Date End Date Dana Cedillo DO [address] [place] [address] PCP - General Family Medicine 10/16/23 documented as of this encounter
--- OUTSIDE RECORDS SUMMARY | 2024-04-30 13:10 | XMS_ITS | Encounter Summary ---
[place] [address] Care Team Providers Care Spanish Moss Picker Name Role Phone Mary Altamirano MD Primary Care Provider [phone] Reason for Visit * Reason Onset Date Comments Medication Refill 08/13/2022 Repatha 90 day supply requestPharmacy change to [facility] Encounter Details Date Type Department Care Team (Late st Contact Info) Description 08/13/2022 Refill Cardiology at [address] [phone] Ana Horan auto body repair estimator Refill (Repatha 90 day supply request/Pharmacy change to [facility]/) Social History Tobacco Use Types Packs/Day [...] 1:30 PM EDT Office Visit Dermatology at [place] [address] [place] [address] Emiliano Salinas MD [address], [place]IND[place] [address] documented as of this encounter Visit Diagnoses Diagnosis Familial hypercholesterolemia Pure hypercholesterolemia documented in this encounter Care Teams Spanish Moss Picker Relationship Specialty Start Date End Date Mary Altamirano MD PCP - General Family Medicine 01/26/22 08/26/22 documented as of this encounter
--- OUTSIDE RECORDS SUMMARY | 2024-04-30 13:10 | XMS_ITS | Encounter Summary ---
Author Organization [facility] Address [facility] [place] [address] Care Team Providers Care Recreation Engineer Name Role Phone Dana Cedillo DO Primary Care Provider [phone] Encounter Details Date Type Department Care Team (Late st Contact Info) Description 09/30/2023 11:00 AM EDT Office [place] [phone] Sam Dawson MD [facility] [place] [address] Pathological fracture of left foot due to [...] and urine test in 1 month at [facility] - once I get the results we will decide how much Ca and vit D to take - DXA scheduling at [facility] [phone] documented in this encounter Progress Notes * [...] [x] 701-900 mg [] 901-1100 mg [] 8282-3942 mg [] 2505-9249 mg [] Above 1500 mg ROS: Constitutional: [...] WITH FOOD fluticasone propionate (Flonase) 50 mcg/actuation [place], Suspension Every 12 hours. 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 Social [...] 1.07 mmol/L 0.82 Last DXA scan 12/27/2022 ([facility]): Assessment: Yessenia Luong is a 73 [...] density scan to be done at [facility] where we can do [...] and urine test in 1 month at [facility] Orders Placed This Encounter Procedures DXA Central Spine, Hip, and/or Whole Body (Generic) Calcium, urine, 24 hour Creatinine, urine, 24 hour Vitamin D, 25-Hydroxy PTH Albumin Level Calcium - DXA scan with TBS score to be done at [facility] - once I get [...] 1:30 PM EDT Office Visit Dermatology at [place] [address] [place] [address] Emiliano Salinas MD [address], [place] [address] Scheduled Orders Name Type Priority Associated Diagnoses Orde r Schedule Calcium, urine, 24 hour Lab Routine 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, subsequent encounter Expected: 09/30/2023, Expires: 03/31/2024 Creatinine, urine, 24 hour Lab Routine 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, subsequent encounter Expected: 09/30/2023, Expires: 03/31/2024 Albumin Level Lab Routine 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, subsequent encounter Expected: 09/30/2023, Expires: 03/31/2024 documented as of this encounter Results * Vitamin D, 25-Hydroxy (04/28/2024 5:07 PM EST) Pathologist [facility] Vitamin D Total 25 OH 43 21 - 100 ng/ml 04/28/2024 11:01 PM EST [facility] Vitamin D Total 25 OH Interp Sufficient 04/28/2024 11:01 PM EST [facility] Blood VENOUS BLOOD SPECIMEN / Unknown Venipuncture / Unknown 04/28/2024 5:07 PM EST 04/28/2024 5:08 PM EST Sam Dawson MD CHEMISTRY ORDERABL ES Performing Organization Address City/State/[facility] Co de Phone Number [facility] [place] [address] * DXA Central Spine, Hip, and/or Whole Body (Generic) (10/18/2023 10:49 AM EDT) [facility] WORKSTATION ID [id number] DH RAD Anatomical Region Laterality Modality C-spine, Hip N/A Other Addenda Addendum by Luna Curtis MD on 03/08/2024 9:22 PM EDT --------ADDENDUM #1-------- The technique section should read as follows: TECHNIQUE: Scans were acquired at the lumbar spine, left forearm and left hip using the [employer]PUBLIC [employer] A system. TBS was also obtained. Thank you for letting us participate in the care of this patient. ??If you are a health care provider and have any questions regarding this report, please contact the number below. ??For patients who have questions please contact the health palliative care nurse practitioner that requested your imaging first. ? --------ORIGINAL REPORT -------- EXAMINATION: DXA CENTRAL SPINE, [...] left forearm and left hip using the Polyheal Horizon A system. COMPARISON: None FINDINGS: Femoral [...] BMD measurements and plots are available in [employer]iz[employer] under the imaging tab. Paper copies will be sent to providers without [employer] access. If you have received this report without the data sheet and do not have access to [employer], please contact Radiology Mobile Application Engineer at [phone] Saturday thru Saturday 8am-4pm. ? Bone Density Report ? Name: ?Yessenia Luong Age: ? 73 Sex: ? Female Ethnicity: ? White Date of : 1950 Referring Provider: SAM DAWSON Study: Bone densitometry was performed. Model: Malachi Bhatt (S/N [id number]) SW version 13.6.0.5 Exam Date: October 18, 2023 Accession number: [id number] Bone Density: Region ? BMD ?T-score ??Z-score [...] who have questions please contact the health palliative care nurse practitioner that requested your imaging first. ? Impressions [...] BMD measurements and plots are available in [employer] under the imaging tab. Paper copies will be sent to providers without E- access. If you have received this report without the data sheet and do not have access to [employer], please contact Radiology Mobile Application Engineer at [phone] Saturday thru Saturday 8am-4pm. ? Bone Density Report ? Name: ?Yessenia Luong Age: ? 73 Sex: ? Female Ethnicity: ? White Date of : 1950 Referring Provider: SAM DAWSON Study: Bone densitometry was performed. Model: BitLeap (S/N [id number]) SW version 13.6.0.5 Exam Date: October 18, 2023 Accession number: [id number] Bone Density: Region ? BMD ?T-score ??Z-score [...] who have questions please contact the health palliative care nurse practitioner that requested your imaging first. ? Narrative [...] left forearm and left hip using the Polyheal Horizon A system. COMPARISON: None FINDINGS: Femoral [...] BMD measurements and plots are available in [employer] Plus | QuizScoreunder the imaging tab. Paper copies will be sent to providers without [employer] access.If you have received this report without the data sheet and do not haveaccess to [employer], please contact Radiology Mobile Application Engineer at [phone] Saturday thruFrid 8am-4pm. Bone Density Report Name: Yessenia Luong Age: 73 Sex: Female Ethnicity: White Date of : 1950 Referring Provider: SAM DAWSON Study: Bone densitometry was performed. Model: BitLeap (S/N [id number]) GetJob version 13.6.0.5 Exam Date: October 18, 2023 Accession number: [id number] Bone Density: Region BMD T-score Z-score AP [...] patients who have questions please contactthe health palliative care nurse practitioner that requested your imaging first. Sam Dawson MD IMG DEXA ORDERABLE S documented in this encounter Visit Diagnoses Diagnosis 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, subsequent encounter 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, subsequent encounter documented in this encounter Care Teams Recreation Engineer Relationship Specialty Start Date End Date Dana Cedillo DO [address] [place] [address] PCP - General Family Medicine 10/16/23 documented as of this encounter"
--- OUTSIDE RECORDS SUMMARY | 2024-04-30 13:10 | XMS_ITS | Encounter Summary ---
[place] [address] Care Team Providers Care Window Draper Name Role Phone Mary Altamirano MD Primary Care Provider [phone] Reason for Visit * Reason Comments Medication Management Patient Education Medication Refill Encounter Details Date Type Department Care Team (Late st Contact Info) Description 08/07/2022 Specialty [place] [address] Xochitl Loyola RPH Social History Tobacco Use [...] Loyola RPH Comprehensive Medication Management (CMM) Yessenia Griffinángel Diagnosis: hyperlipidemia Therapy Start Date: anticipated by [...] Requirements: no Medication Reconciliation Discrepancies (compared to [facility] med list) -none Medication List: Current Outpatient [...] azelastine (ASTELIN) 137 mcg (0.1 %) Aerosol, [place] 0 ??? PROVENTIL HFA 90 mcg/actuation HFA [...] Once daily ??? Mometasone (NASONEX) 50 mcg/Actuation [place] 2 [place](s) each nostril, Nasal, Twice daily No current [...] specialty services: Yes Patient accepted offer to debt counselor: adherence/missed doses, doses and administration, pharmacy [...] counter products discussed, reminder to refill or picking supervisor medication discussed, start medication discussed, timing of [...] Social Assessment: Does patient have a primary care transition manager: No Does patient have an emergency contact on file: Yes Does patient need referral to forensic social worker: No Does patient need referral to advocacy [...] were made at the appointment and that [facility] is[facility] (summary located at top of note) for provider review and follow up. Xochitl Loyola RPH 08/07/22 1:40 PM documented in this encounter Plan of Treatment Upcoming Encounters Date Type Department Care Team (Late st Contact Info) Description 03/16/2025 1:30 PM EDT Office Visit Dermatology at [place] [address] [place] [address] Emiliano Salinas MD [address], [place] [address] documented as of this encounter Visit Diagnoses Not on filedocumented in this encounter Care Teams Window Draper Relationship Specialty Start Date End Date Mary Altamirano MD PCP - General Family Medicine 01/26/22 08/26/22 documented as of this encounter
--- OUTSIDE RECORDS SUMMARY | 2024-04-30 13:10 | XMS_ITS | Encounter Summary ---
Author Organization [facility] [place] [address] Care Team Providers Care Business Services Sales Agent Name Role Phone Veronica Barrios KEISHA Primary Care Provider Encounter Details Date Type Department Care Team (Late st Contact Info) Description 08/29/2022 Specialty [place] [phone] Rissa Anderson Yohana Social History Tobacco Use Types Packs/Day Years [...] 1:30 PM EDT Office Visit Dermatology at [place] [address] [facility] [place] [address] Emiliano Salinas MD [address] [facility], [place] [address] documented as of this encounter Visit Diagnoses Not on filedocumented in this encounter Care Teams Business Services Sales Agent Relationship Specialty Start Date End Date Veronica Barrios APRN [address] [id number] PCP - General Family Medicine 08/27/22 03/17/23 documented as of this encounter
--- OUTSIDE RECORDS SUMMARY | 2024-04-30 13:10 | XMS_ITS | Encounter Summary ---
Author Organization [facility] Address [facility] [place] [address] Care Team Providers Care Tax Map Technician Name Role Phone Veronica Barrios Liyah VALDES Primary Care Provider Reason for Visit * Reason Comments Medication Refill Encounter Details Date Type Department Care Team (Late st Contact Info) Description 01/22/2023 Refill Cardiology at [address] [address] Liam Noel MD [facility] [place] [address] Medication Refill Social History Tobacco Use Types [...] 1:30 PM EDT Office Visit Dermatology at [place] [address] [facility] [place] [address] Emiliano Salinas MD [address] [facility], [place] [address] documented as of this encounter Visit Diagnoses Diagnosis Mixed hyperlipidemia documented in this encounter Care Teams Tax Map Technician Relationship Specialty Start Date End Date Veronica Barrios APRN [address] [place] [address] PCP - General Family Medicine 08/27/22 03/17/23 documented as of this encounter
--- OUTSIDE RECORDS SUMMARY | 2024-04-30 13:10 | XMS_ITS | Encounter Summary ---
Author Organization [facility] [place] [address] Care Team Providers Care Playground Director Name Role Phone Dana Cedillo DO Primary Care Provider [phone] Encounter Details Date Type Department Care Team [...] 1:30 PM EDT Office Visit Dermatology at [place] [address] [facility] [place] [address] Emiliano Salinas MD [address], MANINDER A DERMATOLOGY [place], [place] [address] documented as of this encounter Visit Diagnoses Not on filedocumented in this encounter Care Teams Playground Director Relationship Specialty Start Date End Date Dana Cedillo DO [address] [place] [address] PCP - General Family Medicine 10/16/23 documented as of this encounter
--- OUTSIDE RECORDS SUMMARY | 2024-04-30 13:10 | XMS_ITS | Encounter Summary ---
Author Organization [facility] Address [facility] [place] [address] Care Team Providers Care Brewery Pumper Name Role Phone Guerline Quigley Rodolfo VALDES Primary Care Provider [phone] Encounter Details Date Type Department Care Team (Late st Contact Info) Description 08/06/2023 Refill Cardiology at [address] [place] [address] [facility] [place] [address] Social History Tobacco Use Types Packs/Day Years [...] Notes * Telephone Encounter - Yarelis Youngblood - 08/06/2023 10:24 AM EST Patient called [...] 1:30 PM EDT Office Visit Dermatology at [place] [address] [facility] [place] [address] Emiliano Salinas MD [address], [place] [address] documented as of this encounter Visit Diagnoses Diagnosis Mixed hyperlipidemia documented in this encounter Care Teams Brewery Pumper Relationship Specialty Start Date End Date Guerline Quigley APRN PCP - General Family Medicine 03/18/23 09/29/23 documented as of this encounter
--- OUTSIDE RECORDS SUMMARY | 2024-04-30 13:10 | XMS_ITS | Encounter Summary ---
Author Organization [facility] [place] [address] Care Team Providers Care Salesperson Wigs Name Role Phone Dana Cedillo DO Primary Care Provider [phone] Encounter Details Date Type Department Care Team (Late st Contact Info) Description 11/05/2023 Telephone [place] [phone] Raeann Ortega RN Social History Tobacco Use [...] - 11/05/2023 12:03 PM EDT Copied from [facility] #[id number]. Topic: Specialty Dept CRMs - Medication Issues [...] 1:30 PM EDT Office Visit Dermatology at [place] [address] [facility] [place] [address] Emiliano Salinas MD [address], [place] [address] documented as of this encounter Visit Diagnoses Not on filedocumented in this encounter Care Teams Salesperson Wigs Relationship Specialty Start Date End Date Dana Cedillo DO [address] [place] [address] PCP - General Family Medicine 10/16/23 documented as of this encounter
--- OUTSIDE RECORDS SUMMARY | 2024-04-30 13:10 | XMS_ITS | Encounter Summary ---
Author Organization [facility] [place] [address] Care Team Providers Care Cement Truck Driver Name Role Phone Guerline Qugiley APRN Primary Care Provider [phone] Reason for Visit * Consultation (Routine) - Closed Specialty Diagnoses / Procedures Referred By Veronica brantley Referred To Contact Endocrinology Diagnoses Hypothyroidism, unspecified Other specified disorders of bone density and structure, unspecified site Guerline Quigley APRN [address] [place] [address] [facility] [address] [place] [phone] Referral ID Status Reason Start Date Expiration Date Visits Re quested Visits Authorized [id number] Closed 06/05/2023 06/04/2024 1 1 Encounter Details Date Type Department Care Team (Late st Contact Info) Description 07/30/2023 10:00 AM EST Office [place] [address] Virginia Everett MD [facility] [place] [address] Osteopenia, unspecified location Social History Tobacco Use [...] [x] 701-900 mg [] 901-1100 mg [] 6013-4260 mg [] 3073-9431 mg [] Above 1500 mg ROS: Constitutional: [...] EACH WEEK fluticasone propionate (Flonase) 50 mcg/actuation [place], Suspension Every 12 hours. 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 Social [...] Vit D prescription can be sent to [employer] if needed - continue with current Ca [...] 1:30 PM EDT Office Visit Dermatology at [place] [address] [place] [address] Emiliano Salinas MD [address], [place] [address] documented as of this encounter Procedures Procedure [...] Free T4 1.37 0.93 - 1.70 ng/dL [facility] Comment: Reference Interval (ng/dL): Females: ??First Trimester: 0.97-1.68 ??Second Trimester: 0.77-1.51 ??Third Trimester: 0.77-1.49 Blood 07/30/2023 11:3 2 AM EST 07/30/2023 11:39 AM EST Narrative Resulting Agency Comment Spec In Lab Virginia Everett MD CHEMISTRY ORDERABL ES Performing Organization Address City/[facility] Co de Phone Number [facility] [address] * TSH (07/30/2023 11:32 AM EST) Thyroid Stimulating Hormone 1.96 0.27 - 4.20 mcIU/mL [facility] Comment: Reference Interval (mcIU/mL): Females: ??First Trimester: 0.23-3.88 ??Second Trimester: 0.22-3.90 ??Third Trimester: 0.44-4.66 Blood 07/30/2023 11:3 2 AM EST 07/30/2023 11:39 AM EST Narrative Resulting Agency Comment Spec In Lab Virginia Everett MD CHEMISTRY ORDERABL ES Performing Organization Address [facility] Co de Phone Number [facility] [address] * PTH (07/30/2023 11:32 AM EST) Parathyroid Hormone 43 15 - 65 pg/mL [facility] Blood 07/30/2023 11:3 2 AM EST 07/30/2023 11:39 AM EST Narrative Resulting Agency Comment Spec In Lab Virginia Everett MD CHEMISTRY ORDERABL ES Performing Organization Address [facility] Co de Phone Number [facility] [address] * Phosphorus (07/30/2023 11:32 AM EST) Phosphorus 3.5 2.5 - 4.5 mg/dL [facility] Blood 07/30/2023 11:3 2 AM EST 07/30/2023 11:39 AM EST Narrative Resulting Agency Comment Spec In Lab Virginia Everett MD CHEMISTRY ORDERABL ES Performing Organization Address City/[facility] Co de Phone Number [facility] [address] * Magnesium (07/30/2023 11:32 AM EST) Magnesium 0.82 0.69 - 1.07 mmol/L [facility] Blood 07/30/2023 11:3 2 AM EST 07/30/2023 11:39 AM EST Narrative Resulting Agency Comment Spec In Lab Virginia Everett MD CHEMISTRY ORDERABL ES Performing Organization Address City/[facility]/ZIP Co de Phone Number [facility] [address] * Vitamin D, 25-Hydroxy (07/30/2023 11:32 AM EST) Vitamin D Total 25 OH 59 21 - 100 ng/mL [facility] Vit D Interp Sufficient [facility] Blood 07/30/2023 11:3 2 AM EST 07/30/2023 11:39 AM EST Narrative Resulting Agency Comment Spec In Lab Virginia Everett MD CHEMISTRY ORDERABL ES Performing Organization Address City/[facility] Co de Phone Number [facility] [address] * Comprehensive metabolic panel (non-fasting) (07/30/2023 11:32 AM EST) Glucose 98 65 - 199 mg/dL [facility] Comment:Diabetes: >=200 mg/d L plus symptoms Blood Urea Nitrogen 10 8 - 18 mg/dL [facility] Creatinine 0.75 0.70 - 1.20 mg/dL [facility] Sodium 140 135 - 145 mmol/L [facility] Potassium 4.6 3.5 - 5.0 mmol/L [facility] Comment: Please note: ??Patients with WBC >100,000 may have falsely elevated Potassium levels. ??For accurate Potassium quantification in these patients send serum separator tube (gold top) for subsequent determinations. ??Contact the Clinical Chemistry Laboratory if there are any questions. Chloride 101 98 - 107 mmol/L [facility] Carbon Dioxide 28 22 - 31 mmol/L [facility] Anion Gap 11 5 - 15 mmol/L [facility] Calcium 10.1 8.5 - 10.5 mg/dL [facility] Protein, Total 7.4 6.1 - 8.0 g/dL [facility] Albumin 4.5 3.2 - 5.2 g/dL [facility] Aspartate Aminotransferase 22 0 - 30 unit/L [facility] Alanine Aminotransferase 18 0 - 30 unit/L [facility] Alkaline Phosphatase 77 35 - 105 unit/L [facility] Bilirubin, Total 0.4 0.2 - 1.3 mg/dL [facility] Est Glomerular Filtration Rate 83 >=60 mL/min/1. 73 m?? [facility] Comment: This patient's estimated GFR was [...] Lab Virginia Everett MD CHEMISTRY ORDERABL ES [facility] [address] documented in this encounter Visit Diagnoses Diagnosis Osteopenia, unspecified location documented in this encounter Care Teams Cement Truck Driver Relationship Specialty Start Date End Date Guerline Quigley APRN PCP - General Family Medicine 03/18/23 09/29/23 documented as of this encounter
--- OUTSIDE RECORDS SUMMARY | 2024-04-30 13:10 | XMS_ITS | Encounter Summary ---
Author Organization [facility] Address [facility] [place] [address] Care Team Providers Care Corporate Safety Manager Name Role Phone Guerline Quigley Rodolfo VALDES Primary Care Provider [phone] Reason for Visit * Reason Comments Hyperlipidemia Encounter Details Date Type Department Care Team (Late st Contact Info) Description 03/18/2023 3:00 PM EDT Office Visit Cardiology at [address] [place] [address] Liam Noel MD [facility] [place] [address] Mixed hyperlipidemia Social History Tobacco Use Types [...] WEEK DIRECTED fluticasone propionate (Flonase) 50 mcg/actuation [place], Suspension EVERY 12 HOURS icosapent ethyL (VASCEPA) [...] without use of accessory muscles Labs 03/2023 ([facility]) Uric acid 6.0 TSH 1.62 LDL 187 [...] 1:30 PM EDT Office Visit Dermatology at [place] [address] [facility] [place] [phone] Emiliano Salinas MD [address] [facility], [place] [address] documented as of this encounter Visit Diagnoses Diagnosis Mixed hyperlipidemia documented in this encounter Care Teams Corporate Safety Manager Relationship Specialty Start Date End Date Guerline Quigley APRN PCP - General Family Medicine 03/18/23 09/29/23 documented as of this encounter
--- OUTSIDE RECORDS SUMMARY | 2024-04-30 13:10 | XMS_ITS | Encounter Summary ---
Author Organization [facility] Address [facility] [place] [address] Care Team Providers Care Shoe Maker Name Role Phone Veronica Barrios KEISHA Primary Care Provider Reason for Visit * Reason Comments Skin Problem Encounter Details Date Type Department Care Team (Late st Contact Info) Description 08/30/2022 8:45 AM EDT Office Visit [facility] at [facility] [address] [place] [address] Star Moura MD [facility] [address] [place] [address] Encounter for cosmetic procedure Social History Tobacco [...] Notes * Anthony Batres, TAQUERIA - 08/30/2022 8:45 AM EDT Images from the original note were not included. Cosmetic Note: Xeomin Date of service: 08/28/2022 Yessenia Luong : 1950 Provider: Star Moura MD, Xeomin PROCEDURE NOTE HPI Yessenia Luong is [...] glabella & forehead & crows feet. LOT: [id number] EXP:2023-06 3. Post-injection care reviewed. Call with [...] by Star Moura MD Department of Dermatology [facility] documented in this encounter Plan of Treatment Upcoming Encounters Date Type Department Care Team (Late st Contact Info) Description 03/16/2025 1:30 PM EDT Office Visit Dermatology at [place] [address] [place] [address] Emiliano Salinas MD [address] [facility], [place] [address] documented as of this encounter Visit Diagnoses Diagnosis Encounter for cosmetic procedure documented in this encounter Care Teams Shoe Maker Relationship Specialty Start Date End Date Veronica Barrios APRN [address] [place] [address] PCP - General Family Medicine 08/27/22 03/17/23 documented as of this encounter
--- OUTSIDE RECORDS SUMMARY | 2024-04-30 13:10 | XMS_ITS | Encounter Summary ---
Author Organization [facility] [place] [address] Care Team Providers Care Client Account Manager Name Role Phone Mary Altamirano MD [...] 1:30 PM EDT Office Visit Dermatology at [place] [address] [facility] [place] [address] Emiliano Salinas MD [address], BAKAR[place] [address] documented as of this encounter Visit Diagnoses Not on filedocumented in this encounter Care Teams Client Account Manager Relationship Specialty Start Date End Date Mary Altamirano MD [phone] (work) PCP - General Family Medicine 01/26/22 08/26/22 documented as of this encounter
--- OUTSIDE RECORDS SUMMARY | 2024-04-30 13:10 | XMS_ITS | Encounter Summary ---
Author Organization [facility] Address [facility] [place] [address] Care Team Providers Care Nuclear Fuels Research Engineer Name Role Phone Veronica Barrios KEISHA Primary Care Provider Encounter Details Date Type Department Care Team (Late st Contact Info) Description 09/26/2022 Telephone Cardiology at [address] [place] [address] Liam Noel MD [facility] [place] [address] Social History Tobacco Use Types Packs/Day Years [...] faulty and did not work. She called [employer] and they are going to send a request to Dr Noel. Then they will mail them to her. Please call her @ [phone] documented in this encounter Plan of Treatment Upcoming Encounters Date Type Department Care Team (Late st Contact Info) Description 03/16/2025 1:30 PM EDT Office Visit Dermatology at [place] [address] [facility] [place] [address] Emiliano Salinas MD [address] [facility], [place]IND[place] [address] documented as of this encounter Visit Diagnoses Not on filedocumented in this encounter Care Teams Nuclear Fuels Research Engineer Relationship Specialty Start Date End Date Veronica Barriso APRN [address] [place] [address] PCP - General Family Medicine 08/27/22 03/17/23 documented as of this encounter
--- OUTSIDE RECORDS SUMMARY | 2024-04-30 13:10 | XMS_ITS | Encounter Summary ---
Author Organization [facility] [place] [address] Care Team Providers Care Molding Machine Tender Name Role Phone Guerline Quigley KEISHA Primary Care Provider [phone] Encounter Details Date Type Department Care Team (Late st Contact Info) Description 07/31/2023 Telephone [place] [phone] Luna Lazcano RN Social History Tobacco Use [...] 07/31/2023 1:50 PM EST Copied from CRM #[id number]. Topic: Specialty Dept CRMs - Medication Issues >> Jul 31, 2023 1:37 PM Maya Muller wrote: Medication Issues Specialist Virginia Everett MD Relationship (if other than patient-full name): self Reason for call: Medication Issue (if symptom based used Triage Subtopic) Message/information for the nurse: Patient states she was prescribed Pantoprazole 20 mg and [id number] or 20 mg but when she read [...] 1:30 PM EDT Office Visit Dermatology at [address] [address] Emiliano Salinas MD [address] [place] [address], [place] [address] documented as of this encounter Visit Diagnoses Not on filedocumented in this encounter Care Teams Molding Machine Tender Relationship Specialty Start Date End Date Guerline Quigley APRN PCP - General Family Medicine 03/18/23 09/29/23 documented as of this encounter
--- OUTSIDE RECORDS SUMMARY | 2024-04-30 13:10 | XMS_ITS | Encounter Summary ---
Author Organization [facility] Address [facility] [address] [place] [address] Care Team Providers Care Auto Parts Manager Name Role Phone Guerline Quigley Rodolfo VALDES Primary Care Provider [phone] Encounter Details Date Type Department Care Team (Late st Contact Info) Description 08/15/2023 Telephone [place] [phone] Virginia Everett MD [facility] [place] [address] Social History Tobacco Use Types Packs/Day Years [...] 1:30 PM EDT Office Visit Dermatology at [place] [address] [facility] [place] [address] Emiliano Salinas MD [address], BAKARI [place] [address] documented as of this encounter Visit Diagnoses Not on filedocumented in this encounter Care Teams Auto Parts Manager Relationship Specialty Start Date End Date Guerline Quigley APRN PCP - General Family Medicine 03/18/23 09/29/23 documented as of this encounter
--- OUTSIDE RECORDS SUMMARY | 2024-04-30 13:10 | XMS_ITS | Encounter Summary ---
Author Organization [facility] Address [facility] [place] [address] Care Team Providers Care Associate Quality Engineer Name Role Phone Guerline Quigley KEISHA Primary Care Provider Encounter Details Date Type Department Care Team (Late st Contact Info) Description 05/15/2023 Telephone Cardiology at [address] [place] [address] Liam Noel MD [facility] [address] Social History Tobacco Use Types Packs/Day Years [...] encounter Miscellaneous Notes * Telephone Encounter - Ashyln Celis RN - 05/15/2023 9:36 AM EST Yessenia Luong called to verify that the lipid panel is ordered for June - confirmed: to be completed between Jun 18 and March 17, [address] Storms add CPK test to the order documented in this encounter Plan of Treatment Upcoming Encounters Date Type Department Care Team (Late st Contact Info) Description 03/16/2025 1:30 PM EDT Office Visit Dermatology at [place] [address] [facility] [place] [address] Emiliano Salinas MD [address], [place]IND[place] [address] documented as of this encounter Visit Diagnoses Diagnosis Mixed hyperlipidemia documented in this encounter Care Teams Associate Quality Engineer Relationship Specialty Start Date End Date Guerline Quigley APRN PCP - General Family Medicine 03/18/23 09/29/23 documented as of this encounter
--- OUTSIDE RECORDS SUMMARY | 2024-04-30 13:11 | XMS_ITS | Encounter Summary ---
Author Organization [facility] [place] [address] Care Team Providers Care Bread Jockey Name Role Phone Juan [place] MD Primary Care Provider [phone] Encounter Details Date Type Department Care Team (Latest Contact Info) Description 08/31/2020 Orders Only Cardiology at [address] [phone] Tory Montalvo MD Familial hypercholesterolemia Social History [...] 1:30 PM EDT Office Visit Dermatology at [place] [address] [place] [address] Emiliano Salinas MD [address], [place] [address] documented as of this encounter Results * Uric acid (02/16/2022 11:51 AM EDT) Uric Acid 5.4 2.5 - 6.5 mg/dL [facility] Blood 02/16/2022 11:5 1 AM EDT 02/16/2022 12:02 PM EDT Narrative Resulting Agency Comment Spec In Lab Tory Montalvo MD CHEMISTRY ORDERABLES Performing Organization Address City/State/[facility] Co de Phone Number [facility] [place] [address] documented in this encounter Visit Diagnoses Diagnosis Familial hypercholesterolemia Pure hypercholesterolemia documented in this encounter Care Teams Bread Jockey Relationship Specialty Start Date End Date Juan [place] MD PCP - General Family Medicine 05/10/16 09/02/21 documented as of this encounter
--- OUTSIDE RECORDS SUMMARY | 2024-04-30 13:11 | XMS_ITS | Encounter Summary ---
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 She was in 2002 and has had a significant other for many years. Boyfriend (Deacon Peterson) lives in [place]. She has 5 children (2 biologic and 2 step) 3 biologic and 8 step grandchildren. She enjoys travel, walking, kayaking, reading, and gardening friends and family Present Illness: Yessenia S Kitchel??is seen at the request of Juan mSith MD??for follow-up management of dyslipidemia, specifically??a diagnosis [...] azelastine (ASTELIN) 137 mcg (0.1 %) Aerosol, Trinity 0 ??? PROVENTIL HFA 90 mcg/actuation HFA [...] Once daily ??? Mometasone (NASONEX) 50 mcg/Actuation [place] 2 Trinity(s) each nostril, Nasal, Twice daily No current facility-administered medications for this visit. Allergies Bee pollen, Morphine, Sulfa (sulfonamide antibiotics), and Voltaren [diclofenac sodium] Physical Exam not performed - telehealth Labs Total cholesterol 168 mg/dL Triglycerides 89 [...] She will have her labs drawn at [facility] in [facility] about a week before her [...] 1:30 PM EDT Office Visit Dermatology at [place] [address] [facility] [place] [address] Emiliano Salinas MD [address] [facility] [address], [place]AR[place] [address] documented as of this encounter Visit Diagnoses Diagnosis Familial hypercholesterolemia Pure hypercholesterolemia documented in this encounter Care Teams Psychologists Relationship Specialty Start Date End Date Juan [place] MD PCP - General Family Medicine 05/10/16 09/02/21 documented as of this encounter
--- OUTSIDE RECORDS SUMMARY | 2024-04-30 13:11 | XMS_ITS | Encounter Summary ---
Author Organization [facility] [place] [address] Care Team Providers Care Silk Worker Name Role Phone Mary Altamirano MD [...] EDT Office Visit Dermatology at [place] [address] [facility] [place] [phone] Emiliano Salinas MD [address], BAKAR[place] [address] documented as of this encounter Visit Diagnoses Not on filedocumented in this encounter Care Teams Silk Worker Relationship Specialty Start Date End Date Mary Altamirano MD [phone] (work) PCP - General Family Medicine 01/26/22 08/26/22 documented as of this encounter
--- OUTSIDE RECORDS SUMMARY | 2024-04-30 13:11 | XMS_ITS | Encounter Summary ---
Author Organization [facility] Address [facility] [place] [address] Care Team Providers Care Right Of Way Cutter Name Role Phone Mary Altamirano MD Primary Care Provider [phone] Reason for Referral * Diagnostic Test (Routine) - Closed Specialty Diagnoses / Procedures Referred By Contac t Referred To Contact Radiology Diagnoses Familial hypercholesterolemia Procedures CT Heart For Coronary Calcium wo Contrast (Prepaid) Tory Montalvo MD [facility] [place] [address] [facility] [place] [address] Referral ID Status Reason Start Date Expiration Date V isits Requested Visits Authorized [id number] Closed Specialty Service Requested 10/28/2020 04/30/2022 1 1 Reason for Visit * Diagnostic Test (Routine) - Closed Specialty Diagnoses / Procedures Referred By Contac t Referred To Contact Radiology Diagnoses Familial hypercholesterolemia Procedures CT Heart For Coronary Calcium wo Contrast (Prepaid) Tory Montalvo MD [facility] [place] [address] [facility] [place] [address] Referral ID Status Reason Start Date Expiration Date V isits Requested Visits Authorized [id number] Closed Specialty Service Requested 10/28/2020 04/30/2022 1 1 Encounter Details Date Type Department Care Team (Latest Contact Info) Description 02/16/2022 10:23 AM EDT - 02/16/2022 11:59 PM EDT Hospital Encounter CT Scan at [facility] [place] [address] Tory Montalvo MD Familial hypercholesterolemia Discharge Disposition: [...] End Date fluticasone propionate (Flonase) 50 mcg/actuation [place], Suspension Every 12 hours. 10/17/2020 EPINEPHrine 0.3 [...] azelastine (ASTELIN) 137 mcg (0.1 %) Aerosol, [place] 0 11/06/2017 0 09/03/2022 ASCORBATE CALCIUM (VITAMIN C ORAL) Take by mouth. 09/03/2022 ERGOCALCIFEROL, VITAMIN D2, (VITAMIN D ORAL) Take by mouth. multivitamin (THERAGRAN) tablet Take 1 tablet by mouth daily. 09/03/2022 fexofenadine (EVANGELINA) 180 mg tablet 180 mg, PO, Once daily 08/28/2010 09/03/2022 Mometasone (NASONEX) 50 mcg/Actuation [place] 2 [place](s) each nostril, Nasal, Twice daily 08/28/2010 09/03/2022 documented as of this encounter Plan of Treatment Upcoming Encounters Date Type Department Care Team (Late st Contact Info) Description 03/16/2025 1:30 PM EDT Office Visit Dermatology at [place] [address] [place] [address] Emiliano Salinas MD [address], [place] [address] documented as of this encounter Procedures Procedure [...] who have questions please contact the health direct care staffer that requested your imaging first. ? Electronically signed by: Celestina Murillo MD, [facility] ([phone]), at 02/16/2022 3:30 PM Narrative 02/16/2022 3:30 PM EDT EXAMINATION: CT HEART FOR CORONARY CALCIUM WO CONTRAST (PREPAID) CLINICAL HISTORY: Hyperlipidemia 120; patient with elevated LDL and side effects to medications COMPARISON: None. TECHNIQUE: 3.0 mm thick axial contiguous sections through the heart were obtained via ECG-gated axial mode acquisition without intravenous contrast. Craniocaudal coverage and [id number] were restricted to the heart. Post-processing was [...] on age, race/ethnicity, and gender: 67% Reference: Rico Santos, Nella Bella, et al. ??Distribution of coronary artery calcium [...] mode acquisition without intravenouscontrast. Craniocaudal coverage and [id number] were restricted to the heart. Post-processing was [...] based on age,race/ethnicity, and gender: 67% Reference: Rico Santos Detrano R, et al. ??Distribution ofcoronary artery calcium [...] patients who have questions please contactthe health direct care staffer that requested your imaging first. Electronically signed by: Celestina Murillo MD, [facility] ([phone]), at 02/16/2022 3:30 PM Tory Montalvo MD IMG CT ORDERABLES documented in this encounter Visit Diagnoses Diagnosis Familial hypercholesterolemia Pure hypercholesterolemia documented in this encounter Care Teams Right Of Way Cutter Relationship Specialty Start Date End Date Mary Altamirano MD PCP - General Family Medicine 01/26/22 08/26/22 documented as of this encounter
--- OUTSIDE RECORDS SUMMARY | 2024-04-30 13:11 | XMS_ITS | Encounter Summary ---
Author Organization [facility] Address [facility] [place] [address] Care Team Providers Care Event Attendant Name Role Phone Juan Smith MD Primary Care Provider [phone] Reason for Visit * Reason Comments Medication Refill Encounter Details Date Type Department Care Team (Late st Contact Info) Description 04/26/2020 Refill Dermatology at [facility] [address] [place] [address] Vern Salmeron MD [facility] DR LOR[place] [address] Hair thinning Social History Tobacco Use Types [...] 1:30 PM EDT Office Visit Dermatology at [place] [address] [facility] [address] [place] [address] Emiliano Salinas MD [address], BAKARI [place] [address] documented as of this encounter Visit Diagnoses Diagnosis Hair thinning Alopecia, unspecified documented in this encounter Care Teams Event Attendant Relationship Specialty Start Date End Date Juan Smith MD PCP - General Family Medicine 05/10/16 09/02/21 documented as of this encounter
--- OUTSIDE RECORDS SUMMARY | 2024-04-30 13:11 | XMS_ITS | Encounter Summary ---
Author Organization [facility] [place] [address] Care Team Providers Care Physician Liaison Name Role Phone Mary Altamirano MD Primary Care Provider [phone] Reason for Visit * Reason Onset Date Comments Medication Refill 10/09/2021 Encounter Details Date Type Department Care Team (Late st Contact Info) Description 10/09/2021 Telephone Cardiology at [address] [address] Ana Horan environmental protection inspector Refill Social History Tobacco Use Types Packs/Day [...] of Dr. Montalvo Scripts to go to [facility] in [facility]. Chart reviewed. documented in this encounter Plan of Treatment Upcoming Encounters Date Type Department Care Team (Late st Contact Info) Description 03/16/2025 1:30 PM EDT Office Visit Dermatology at [place] [address] [facility] [address] [place] [address] Emiliano Salinas MD [address], [place] [address] documented as of this encounter Visit Diagnoses Not on filedocumented in this encounter Care Teams Physician Liaison Relationship Specialty Start Date End Date Mary Altamirano MD PCP - General Family Medicine 09/03/21 10/11/21 documented as of this encounter
--- OUTSIDE RECORDS SUMMARY | 2024-04-30 13:11 | XMS_ITS | Encounter Summary ---
Author Organization [facility] [place] [address] Care Team Providers Care Director Of Analytical Development Name Role Phone Mary Altamirano MD Primary Care Provider [phone] Encounter Details Date Type Department Care Team (Latest Contact Info) Description 04/10/2022 4:00 PM EDT TH Visit (TeleHealth) Cardiology at [address] [address] Derick Acosta, [facility] [place] [address] Nutritional counseling Social History Tobacco Use Types [...] Vascular Center Cardiovascular Medicine Cardiology Nutrition Assessment [facility] [address] Initial Nutrition Assessment 04/09/22 Identification and Chief Complaint Yessenia Luong is a 72 y.o. patient of Mary Campbell MD referred to Cardiology Dietitian Veterinary Radiologist By Delfina Santiago MD, Lipidologist, for nutrition [...] 40% carbohydrate) with the goals: o Meet AUTOMOTIVE MECHANIC for vitamin D, calcium, magnesium, and potassium [...] and coaching. cc: ?? Mary Campbell MD [address] [place] [address] / [facility] [id number] documented in this encounter Plan of Treatment Upcoming Encounters Date Type Department Care Team ([facility] Contact Info) Description 03/16/2025 1:30 PM EDT Office Visit Dermatology at [place] [address] [facility] [place] [address] Emiliano Salinas MD [address], [place] [address] documented as of this encounter Visit Diagnoses Diagnosis Nutritional counseling documented in this encounter Care Teams Director Of Analytical Development Relationship Specialty Start Date End Date Mary Altamirano MD PCP - General Family Medicine 01/26/22 08/26/22 documented as of this encounter
--- OUTSIDE RECORDS SUMMARY | 2024-04-30 13:11 | XMS_ITS | Encounter Summary ---
Author Organization [facility] Address [facility] [place] [address] Care Team Providers Care Coordinator Of Health Services Name Role Phone Juan Smith MD Primary Care Provider [phone] Encounter Details Date Type Department Care Team (Late st Contact Info) Description 06/01/2020 Telephone Dermatology at [facility] [address] [place] [address] Vern Salmeron MD [facility] [address] [place] [address] Social History Tobacco Use Types Packs/Day Years [...] Notes * Telephone Encounter - Paty Pink - 06/01/2020 1:26 PM EST Called patient [...] 1:30 PM EDT Office Visit Dermatology at [place] [address] [place] [address] Emiliano Salinas MD [address] [facility] [place]IND[place] [address] documented as of this encounter Visit Diagnoses Not on filedocumented in this encounter Care Teams Coordinator Of Health Services Relationship Specialty Start Date End Date Juan Smith MD PCP - General Family Medicine 05/10/16 09/02/21 documented as of this encounter
--- OUTSIDE RECORDS SUMMARY | 2024-04-30 13:11 | XMS_ITS | Encounter Summary ---
[place] [address] Care Team Providers Care Space Operations Officer Name Role Phone Juan Smith MD Primary Care Provider [phone] Reason for Visit * Reason Onset Date Comments Questions 04/04/2021 cholesterol med restart Encounter Details Date Type Department Care Team (Late st Contact Info) Description 04/04/2021 Telephone Cardiology at [address] [address] Rere Stock RN Questions (cholesterol med restart) Social History [...] left for the pt to call this engineering technical writer to see if her symptoms have resolved and when she is going to restart her meds. Awaiting a call back documented in this encounter Plan of Treatment Upcoming Encounters Date Type Department Care Team (Late st Contact Info) Description 03/16/2025 1:30 PM EDT Office Visit Dermatology at [place] [address] [facility] [place] [address] Emiliano Salinas MD [address], BAKAR[place] [address] documented as of this encounter Visit Diagnoses Not on filedocumented in this encounter Care Teams Space Operations Officer Relationship Specialty Start Date End Date Juan Smith MD PCP - General Family Medicine 05/10/16 09/02/21 documented as of this encounter
--- OUTSIDE RECORDS SUMMARY | 2024-04-30 13:11 | XMS_ITS | Encounter Summary ---
Author Organization [facility] [place] [address] Care Team Providers Care Em Physician Name Role Phone Juan Smith MD Primary Care Provider [phone] Reason for Visit * Reason Onset Date Comments Follow-up 11/20/2021 FLP & Uric acid prior to next clinic visit Encounter Details Date Type Department Care Team (Late st Contact Info) Description 11/20/2021 Telephone Cardiology at [address] [address] Ana Horan RN Follow-up (FLP [...] is to call if the folks at [facility] say they did not get the orders, we can refax before she leaves. Pt to call back with any questions/concerns. * Telephone Encounter - Ana Horan RN - 11/20/2021 11:58 AM EDT VM from [facility] requesting lab slips form Dr. Santiago and Selvin be sent to [facility] and she will have the lab [...] 1:30 PM EDT Office Visit Dermatology at [place] [address] [place] [address] Emiliano Salinas MD [address], [place] [address] documented as of this encounter Visit Diagnoses Not on filedocumented in this encounter Care Teams Em Physician Relationship Specialty Start Date End Date Juan Smith MD PCP - General Family Medicine 10/12/21 01/25/22 documented as of this encounter
--- OUTSIDE RECORDS SUMMARY | 2024-04-30 13:11 | XMS_ITS | Encounter Summary ---
Author Organization [facility] [place] [address] Care Team Providers Care Fermenter Operator Name Role Phone Mary Altamirano MD Primary Care Provider Encounter Details Date Type Department Care Team (Latest Contact Info) Description 06/15/2022 2:00 PM EST TH Visit (TeleHealth) Cardiology at [address] [address] Derick Acosta, [facility] [address] Nutritional counseling Social History Tobacco Use Types [...] Cardiovascular Medicine Cardiology Nutrition Follow-up [facility] [id number] , #2 eFax: 06/15/22 Identification Yessenia Luong is a 72 y.o. patient of Mary Campbell MD referred to Cardiology Dietitian Hydro Excavation Operator By Delfina Santiago MD, Lipidologist, for nutrition management of familial hypercholesterolemia in the setting of statin and PCSK9 intolerance. Yessenia is known to me from 2019 when I worked with her initially for the same condition. 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 Today's visit started after a 45-minute delay; patient's telephone went to [employer] at the time of our scheduled telephone visit; patient contacted [facility] [employer] for assistance with Zoom, then e-mailed me [...] counseling and coaching. cc: Mary Campbell MD [address] [place] [address] / [facility] [id number] documented in this encounter Plan of Treatment Upcoming Encounters Date Type Department Care Team (Late st Contact Info) Description 03/16/2025 1:30 PM EDT Office Visit Dermatology at [address] [address] Emiliano Salinas MD [address] [place] [address], [facility] [place] [address] documented as of this encounter Visit Diagnoses Diagnosis Nutritional counseling documented in this encounter Care Teams Fermenter Operator Relationship Specialty Start Date End Date Mary Altamirano MD PCP - General Family Medicine 01/26/22 08/26/22 documented as of this encounter
--- OUTSIDE RECORDS SUMMARY | 2024-04-30 13:11 | XMS_ITS | Encounter Summary ---
[place] [address] Care Team Providers Care Resource Conservation Specialist Name Role Phone Mary Altamirano MD Primary Care Provider Reason for Referral * Consultation (Routine) - Closed Specialty Diagnoses / Procedures Referred By Veronica brantley Referred To Contact Vascular Surgery Diagnoses Varicose veins of both lower extremities with pain #VV, TRAINING REPRESENTATIVE / PA Mary Altamirano MD [address] [place] [address] [facility] Vascular Surg [address] [place] [address] Referral ID Status Reason Start Date Expiration Date V isits Requested Visits Authorized [id number] Closed Consult, Test & Treat 09/03/2021 09/03/2022 10 10 Encounter Details Date Type Department Care Team (Latest Contact Info) Description 09/03/2021 Transcribe Orders eDH Incoming Referrals [phone] Mary Altamirano MD [address] [place] [address] Varicose veins of both lower extremities [...] 1:30 PM EDT Office Visit Dermatology at [place] [address] [place] [address] Emiliano Salinas MD [address], BAKARI [place] [address] Scheduled Referrals Name Type Priority Associated Diagnoses Orde r Schedule Referral to Vascular Surgery Outpatient Referral Routine Varicose veins of both lower extremities with pain Ordered: 09/03/2021 documented as of this encounter Visit Diagnoses Diagnosis Varicose veins of both lower extremities with pain Varicose veins of lower extremities with other complications documented in this encounter Care Teams Resource Conservation Specialist Relationship Specialty Start Date End Date Mary Altamirano MD PCP - General Family Medicine 09/03/21 10/11/21 documented as of this encounter
--- OUTSIDE RECORDS SUMMARY | 2024-04-30 13:11 | XMS_ITS | Encounter Summary ---
Author Organization [facility] Address [facility] [place] [address] Care Team Providers Care Soils Engineer Name Role Phone Mary Altamirano MD Primary Care Provider [phone] Encounter Details Date Type Department Care Team (Latest Contact Info) Description 04/06/2022 11:00 AM EDT TH Visit (TeleHealth) Cardiology at [address] [address] [facility] [place] [address] Nutritional counseling Social History Tobacco Use Types [...] 1:30 PM EDT Office Visit Dermatology at [place] [address] [facility] [place] [address] Emiliano Salinas MD [address], [place] [address] documented as of this encounter Visit Diagnoses Diagnosis Nutritional counseling documented in this encounter Care Teams Soils Engineer Relationship Specialty Start Date End Date Mary Altamirano MD PCP - General Family Medicine 01/26/22 08/26/22 documented as of this encounter
--- OUTSIDE RECORDS SUMMARY | 2024-04-30 13:11 | XMS_ITS | Encounter Summary ---
Author Organization [facility] Address [facility] [place] [address] Care Team Providers Care Mortgage Broker Name Role Phone Mary Altamirano MD Primary Care Provider Reason for Referral * Diagnostic Test (Routine) - Closed Specialty Diagnoses / Procedures Referred By Contac t Referred To Contact Diagnoses Familial hypercholesterolemia THERESA (obstructive sleep apnea) Dyspnea, unspecified type Procedures Echocardiogram Stress (Treadmill) Delfina Alexandre MD [facility] [place] [address] [facility] [place] [address] Referral ID Status Reason Start Date Expiration Date V isits Requested Visits Authorized [id number] Closed Specialty Service Requested 05/21/2022 05/21/2023 1 1 Reason for Visit * Diagnostic Test (Routine) - Closed Specialty Diagnoses / Procedures Referred By Contac t Referred To Contact Diagnoses Familial hypercholesterolemia THERESA (obstructive sleep apnea) Dyspnea, unspecified type Procedures Echocardiogram Stress (Treadmill) Delfina Alexandre MD [facility] [place] [address] [facility] [place] [address] Referral ID Status Reason Start Date Expiration Date V isits Requested Visits Authorized [id number] Closed Specialty Service Requested 05/21/2022 05/21/2023 1 1 Encounter Details Date Type Department Care Team (Latest Contact Info) Description 08/01/2022 8:01 AM EST - 08/01/2022 11:59 PM EST Hospital Encounter Non-Invasive [place] [address] Delfina Alexandre MD [facility] [place] [address] Familial hypercholesterolemi a; THERESA (obstructive sleep apnea); [...] End Date fluticasone propionate (Flonase) 50 mcg/actuation [place], Suspension Every 12 hours. 10/17/2020 EPINEPHrine 0.3 [...] (for MODERATE pain). 30 tablet 1 06/15/2015 meloxicam (Mobic) 7.5 mg tablet 06/14/2022 4 fexofenadine-pseudoephedri ne (EVANGELINA-D 24) 180-240 mg Tablet [...] azelastine (ASTELIN) 137 mcg (0.1 %) Aerosol, [place] 0 11/06/2017 0 3 ASCORBATE CALCIUM (VITAMIN C ORAL) Take by mouth. 3 ERGOCALCIFEROL, VITAMIN D2, (VITAMIN D ORAL) Take by mouth. 09/03 3 multivitamin (THERAGRAN) tablet Take 1 tablet by mouth daily. 3 fexofenadine (EVANGELINA) 180 mg tablet 180 mg, PO, Once daily 08/28/2010 3 Mometasone (NASONEX) 50 mcg/Actuation [place] 2 [place](s) each nostril, Nasal, Twice daily 08/28/2010 3 documented as of this encounter Plan of Treatment Upcoming Encounters Date Type Department Care Team (Late st Contact Info) Description 03/16/2025 1:30 PM EDT Office Visit Dermatology at [facility] [address] [facility] [facility] [address] [place] [address] Emiliano Salinas MD [address], [place] [address] documented as of this encounter Procedures Procedure [...] EST ? Exercise Stress Echocardiogram Report Name: AMELIEYESSENIA GRAY ?Study Date: 08/01/2022 08:38 AMBP: 142/74 mmHg ? Patient Location: 4A ? HR: 69 : 1950 ? Height: 161 cm ? Account: [id number] Age: 72 yrs ? Weight: 72 kg Gender: Female ?BSA: 1.8 m2 Ordering Physician: DELFINA ALEXANDRE Referring Physician: DELFINA ALEXANDRE Performed By: SOO Woods Reason For Study: Abnormal EKG Exam Location: [facility]. Interpretation Summary IMPRESSION: There was no [...] 69 : 1950 Height: 161 cm Account: [id number] Age: 72 yrs Weight: 72 kg Gender: Female BSA: 1.8 m2 Ordering Physician: DELFINA ALEXANDRE Referring Physician: DELFINA ALEXANDRE Performed By: SOO Woods Reason For Study: Abnormal EKG Exam Location: [facility]. Interpretation Summary IMPRESSION: There was no [...] Diam: 3.4 cm Doppler MV E max iblly: 70.7 cm/sec MV A max billy: 70.2 [...] type documented in this encounter Care Teams Mortgage Broker Relationship Specialty Start Date End Date Mary Altamirano MD PCP - General Family Medicine 01/26/22 08/26/22 documented as of this encounter
--- OUTSIDE RECORDS SUMMARY | 2024-04-30 13:11 | XMS_ITS | Encounter Summary ---
Author Organization [facility] Address [facility] [place] [address] Care Team Providers Care Wood Tank Builder Name Role Phone Juan Smith MD Primary Care Provider Reason for Referral * Diagnostic Test (Routine) - Closed Specialty Diagnoses / Procedures Referred By Veronica brantley Referred To Contact Radiology Diagnoses Familial hypercholesterolemia Procedures CT Heart For Coronary Calcium wo Contrast (Prepaid) Tory Chambers MD [facility] [place] [address] [facility] [place] [address] Referral ID Status Reason Start Date Expiration Date V isits Requested Visits Authorized [id number] Closed Specialty Service Requested 10/28/2020 04/30/2022 1 1 Encounter Details Date Type Department Care Team (Latest Contact Info) Description 10/28/2020 3:20 PM EDT Office Visit Cardiology at [address] [address] Tory Chambers MD Familial hypercholesterolemia [...] Chambers MD - 10/28/2020 3:20 PM EDT [facility] Lipid Clinic-Follow Up [...] history:??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 ??She was in 2002 and has had a significant other for many years. ??Her significant other (Deacon Peterson) lives in [place].?She has??5??children and 3 biologic and 8 step??grandchildren. [...] azelastine (ASTELIN) 137 mcg (0.1 %) Aerosol, [place] 0 ??? PROVENTIL HFA 90 mcg/actuation HFA [...] Once daily ??? Mometasone (NASONEX) 50 mcg/Actuation [place] 2 [place](s) each nostril, Nasal, Twice daily No current [...] 1:30 PM EDT Office Visit Dermatology at [place] [address] [facility] [place] [address] Emiliano Salinas MD [address] [facility], BAKARI [place] [address] documented as of this encounter Results * [...] questions please contact the health child care associate teacher that requested your imaging first. ? Electronically signed by: Celestina Murillo MD, [facility] ([phone]), at 02/16/2022 3:30 PM Narrative 02/16/2022 3:30 PM EDT EXAMINATION: CT HEART FOR CORONARY CALCIUM WO CONTRAST (PREPAID) CLINICAL HISTORY: Hyperlipidemia 120; patient with elevated LDL and side effects to medications COMPARISON: None. TECHNIQUE: 3.0 mm thick axial contiguous sections through the heart were obtained via ECG-gated axial mode acquisition without intravenous contrast. Craniocaudal coverage and bnjuw-be-oscn were restricted to the heart. Post-processing was [...] on age, race/ethnicity, and gender: 67% Reference: Chnio RL, Rico H, Nella R, et al. [...] mode acquisition without intravenouscontrast. Craniocaudal coverage and ayxik-eq-pvdn were restricted to the heart. Post-processing was [...] have questions please contactthe health child care associate teacher that requested your imaging first. Electronically signed by: Celestina Murillo MD, [facility] ([phone]), at 02/16/2022 3:30 PM Tory Chambers MD IMG CT ORDERABLES documented in this encounter Visit Diagnoses Diagnosis Familial hypercholesterolemia Pure hypercholesterolemia Familial hypercholesterolemia Pure hypercholesterolemia documented in this encounter Care Teams Wood Tank Builder Relationship Specialty Start Date End Date Juan Smith MD PCP - General Family Medicine 05/10/16 09/02/21 documented as of this encounter
--- OUTSIDE RECORDS SUMMARY | 2024-04-30 13:11 | XMS_ITS | Encounter Summary ---
Author Organization [facility] Address [facility] [place] [address] Care Team Providers Care Telephone Switchboard Operator Name Role Phone Mary Altamirano MD Primary Care Provider [phone] Encounter Details Date Type Department Care Team (Latest Contact Info) Description 02/16/2022 11:20 AM EDT Laboratory Appointment Lab at [facility] [address] [place] [address] Familial hypercholesterolemi a; THERESA (obstructive sleep apnea) [...] 1:30 PM EDT Office Visit Dermatology at [place] [address] [facility] [place] [address] Emiliano Salinas MD [address], BAKARI Bhatt DERMATOLOGY [place], [place] [phone] documented as of this encounter Procedures Procedure [...] CHEMISTRY ORDERABLES [facility] [place] [address] * Apolipoprotein B (02/16/2022 11:51 AM EDT) Apolipoprotein B (OCTOBER) 85 mg/dL [facility] Comment: REFERENCE VALUE Desirable: <90 Above Desirable: 90-99 Borderline high: 100-119 High: 120-139 Very high: > or = 140 Test Performed by: [address] [address] Dental Equipment Technician: Kyle Michel M.D. Ph.D.; CLIA# [id number] Blood 02/16/2022 11:5 1 AM EDT 02/16/2022 3:50 PM EDT Narrative Resulting Agency Comment Spec In Lab Delfina Santiago MD LAB SEND OUT ORDERAB LES Performing Organization Address [facility] Co de Phone Number [facility] [place] [address] * Lipoprotein A (02/16/2022 11:50 AM EDT) [...] considered a risk enhancing factor by the [place] [employer]. This test has been modified from the firmware test engineer's instructions. Its performance characteristics were determined by [facility] in a manner consistent with CLIA requirements. This test has not been cleared or approved by the U.S. Food and Drug Administration. Test Performed by: [facility] [address] [address] Dental Equipment Technician: Kyle Michel M.D. Ph.D.; CLIA# [id number] Blood 02/16/2022 11:5 0 AM EDT 02/16/2022 3:50 PM EDT Narrative Resulting Agency Comment Spec In Lab Delfina Santiago MD LAB SEND OUT ORDERAB LES Performing Organization Address [facility]/ZIP Co de Phone Number [facility] [place] [address] * Apolipoprotein B (02/16/2022 11:50 AM EDT) Apolipoprotein B (OCTOBER) 84 mg/dL [facility] Comment: REFERENCE VALUE Desirable: <90 Above Desirable: 90-99 Borderline high: 100-119 High: 120-139 Very high: > or = 140 Test Performed by: [address] [address] Dental Equipment Technician: Kyle Michel M.D. Ph.D.; IA# [id number] Blood 02/16/2022 11:5 0 AM EDT 02/16/2022 3:50 PM EDT Narrative Resulting Agency Comment Spec In Lab Delfina Santiago MD LAB SEND OUT ORDERAB LES Performing Organization Address City/State/[facility] Co de Phone Number [facility] [place] [address] documented in this encounter Visit Diagnoses Diagnosis Familial hypercholesterolemia Pure hypercholesterolemia THERESA (obstructive sleep apnea) Obstructive sleep apnea (adult) (pediatric) documented in this encounter Care Teams Telephone Switchboard Operator Relationship Specialty Start Date End Date Mary Altamirano MD PCP - General Family Medicine 01/26/22 08/26/22 documented as of this encounter
--- OUTSIDE RECORDS SUMMARY | 2024-04-30 13:11 | XMS_ITS | Encounter Summary ---
Author Organization [facility] [place] [address] Care Team Providers Care Automotive Glazier Name Role Phone Juan Smith MD Primary Care Provider [phone] Encounter Details Date Type Department Care Team (Latest Contact Info) Description 09/30/2020 Orders Only Cardiology at [address] [address] Tory Montalvo MD Familial hypercholesterolemia Social History [...] 1:30 PM EDT Office Visit Dermatology at [place] [address] [facility] [address] [place] [phone] Emiliano Salinas MD [address], [place] [address] documented as of this encounter Visit Diagnoses Diagnosis Familial hypercholesterolemia Pure hypercholesterolemia documented in this encounter Care Teams Automotive Glazier Relationship Specialty Start Date End Date Juan Smith MD PCP - General Family Medicine 05/10/16 09/02/21 documented as of this encounter
--- OUTSIDE RECORDS SUMMARY | 2024-04-30 13:11 | XMS_ITS | Encounter Summary ---
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 ??She was in 2002 and has had a significant other for many years. ??Her significant other (Deacon Peterson) lives in [place].?She has??5??children and 3 [...] azelastine (ASTELIN) 137 mcg (0.1 %) Aerosol, [place] 0 ??? PROVENTIL HFA 90 mcg/actuation HFA [...] Once daily ??? 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 [...] about 6 weeks. These will be at [facility] 8/10/22 apoB 89Lp(a) 19.8 (ULN < 75) Total [...] previous lipid evaluation and recommendations; 30 minutes tixx-mw-dpdj and 10 minutes coordination of care 1) xbea-aw-thex counseling as noted above 2) reviewing past medical records, cardiac testing, results of laboratory testing 3) coordinating care with other physicians and allied health care providers Delfina Santiago MD, Vonnie, FACC, FNLA Attending Insight Leader Sports Cardiology Program Preventive Cardiology Lipid Clinic Advanced Hypertension Clinic documented in this encounter Plan of Treatment Upcoming Encounters Date Type Department Care Team (Late st Contact Info) Description 03/16/2025 1:30 PM EDT Office Visit Dermatology at [place] [address] [facility] [place] [address] Emliiano Salinas MD [address] [facility], BAKAR[place] [address] documented as of this encounter Results * Apolipoprotein B (02/16/2022 11:51 AM EDT) Apolipoprotein B (OCTOBER) 85 mg/dL [facility] Comment: REFERENCE VALUE Desirable: <90 Above Desirable: 90-99 Borderline high: 100-119 High: 120-139 Very high: > or = 140 Test Performed by: [facility] [address] [address] Automatic Presser: Kyle Michel M.D. Ph.D.; CLIA# [id number] Blood 02/16/2022 11:5 1 AM EDT 02/16/2022 3:50 PM EDT Narrative Resulting Agency Comment Spec In Lab Delfina Santiago MD LAB SEND OUT ORDERAB LES Performing Organization Address City/State/[facility] Co de Phone Number [facility] [place] [address] documented in this encounter Visit Diagnoses Diagnosis Familial hypercholesterolemia Pure hypercholesterolemia THERESA (obstructive sleep apnea) Obstructive sleep apnea (adult) (pediatric) documented in this encounter Care Teams Semi Conductor Assembler Relationship Specialty Start Date End Date Mary Altamirano MD PCP - General Family Medicine 01/26/22 08/26/22 documented as of this encounter
--- OUTSIDE RECORDS SUMMARY | 2024-04-30 13:11 | XMS_ITS | Encounter Summary ---
Author Organization [facility] [place] [address] Care Team Providers Care Cheesemaking Laborer Name Role Phone Mary Altamirano MD Primary Care Provider Encounter Details Date Type Department Care Team (Latest Contact Info) Description 08/01/2022 8:15 AM EST Laboratory Appointment Lab [address]L [place] [phone] Familial hypercholesterolemi a; THERESA (obstructive sleep apnea) [...] 1:30 PM EDT Office Visit Dermatology at [place] [address] [place] [address] Emiliano Salinas MD [address], BAKARI Bhatt DERMATOLOGY [place], [place] [phone] documented as of this encounter Procedures Procedure Name Priority Date/Time Associated Diagnosis Comments HC PCH APOLIPO PROTEIN B Routine 08/01/2022 7:52 AM EST Familial hypercholesterolemi a THERESA (obstructive sleep apnea) HC VENIPUNCTURE Routine 08/01/2022 7:52 AM EST Familial hypercholesterolemi a THERESA (obstructive sleep apnea) LIPID PANEL (REFLEX DIRECT LDL) Routine 08/01/2022 7:52 AM EST Familial hypercholesterolemi a THERESA (obstructive sleep apnea) documented in this encounter Results * Lipid Panel (Reflex Direct LDL) (08/01/2022 7:52 AM EST) Pathologist [facility] Cholesterol, Total 366 mg/dL [facility] Comment: Lower Risk: <200 mg/dL Average Risk: 200-239 mg/dL Higher Risk: >ih=952 mg/dL Triglyceride 195 mg/dL [facility] Comment: Average Risk/Lower Risk: <150 mg/dL Borderline High Risk: 150-199 mg/dL High Risk: 200-499 mg/dL Very High Risk: >qk=791 mg/dL HDL Cholesterol 91 mg/dL [facility] Comment: Males: ?? Higher Risk: <40 mg/dL Females: ?? Higher Risk: <50 mg/dL LDL Cholesterol 236 mg/dL [facility] Comment: Lowest Risk: <100 mg/dL Lower Risk: 100-129 mg/dL Borderline High Risk: 130-159 mg/dL High Risk: 160-189 mg/dL Very High Risk: >dt=032 mg/dL Cholesterol/HDL Ratio 4.0 ratio [facility] Lipid Interpretation See Note [facility] Comment: Lipid management should be guided by a patient? s ASCVD risk, goals and preferences. ACC/AHA Guidelines recommend high intensity statin if clinical ASCVD or LDL greater than or equal to 190 mg/dL. http://Solid Soundurl.com/TZL-WLD-Elzvqwbze Adults aged 40-75 with LDL 70-189 mg/dL should have their 10 year ASCVD risk estimated with the ACC/AHA ASCVD risk estimator jewelry http://tools.acc.org/AVTHS-Vcvx-Espkuggcr/ Statin should be discussed if risk greater [...] Santiago MD CHEMISTRY ORDERABLES Performing Organization Address [facility] de Phone Number [facility] [place] [address] * (ABNORMAL) Apolipoprotein B (08/01/2022 7:52 AM EST) Pathologist [facility] Apolipoprotein B (OCTOBER) 169(H) mg/dL [facility] Comment: REFERENCE VALUE Desirable: <90 Above Desirable: 90-99 Borderline high: 100-119 High: 120-139 Very high: > or = 140 Test Performed by: [address] [address] Business Support Specialist: Kyle Michel M.D. Ph.D.; CLIA# [id number] Blood 08/01/2022 7:52 AM EST 08/01/2022 12:39 PM EST Narrative Resulting Agency Comment Spec In Lab Delfina Santiago MD LAB SEND OUT ORDERAB LES Performing Organization Address [facility] de Phone Number [facility] [place] [address] * Hepatic Function Panel (08/01/2022 7:52 AM EST) Pathologist [facility] Protein, Total 7.1 6.1 - 8.0 g/dL [facility] Albumin 4.5 3.2 - 5.2 g/dL [facility] Aspartate Aminotransferase 19 0 - 30 unit/L [facility] Alanine Aminotransferase 18 0 - 30 unit/L [facility] Alkaline Phosphatase 75 35 - 105 unit/L [facility] Bilirubin, Total 0.4 0.2 - 1.3 mg/dL [facility] Bilirubin, Direct 0.1 0.0 - 0.3 mg/dL [facility] Blood 08/01/2022 7:52 AM EST 08/01/2022 8:07 AM EST Narrative Resulting Agency Comment Spec In Lab Delfina Santiago MD CHEMISTRY ORDERABLES Performing Organization Address City/State/[facility] Co de Phone Number [facility] [place] [address] documented in this encounter Visit Diagnoses Diagnosis Familial hypercholesterolemia Pure hypercholesterolemia THERESA (obstructive sleep apnea) Obstructive sleep apnea (adult) (pediatric) documented in this encounter Care Teams Cheesemaking Laborer Relationship Specialty Start Date End Date Mary Altamirano MD PCP - General Family Medicine 01/26/22 08/26/22 documented as of this encounter
--- OUTSIDE RECORDS SUMMARY | 2024-04-30 13:11 | XMS_ITS | Encounter Summary ---
Author Organization [facility] Address [facility] [place] [address] Care Team Providers Care Senior Research Project Manager Name Role Phone Mary Altamirano MD Primary Care Provider [phone] Reason for Visit * Reason Onset Date Comments Medication Refill 09/28/2021 Nexletol & Zet ia Encounter Details Date Type Department Care Team (Late Contact [facility]) Description 09/28/2021 Refill Cardiology at [address] [phone] Tory Montalvo MD Medication Refill (Nexletol & [...] is transferring her care to Cardiology in [facility] and would like to getthe Nexletol and Zetia sent to the [facility] to get her to the appt with the paving bed maker in [facility]. Refill pended to Dr Montalvo. documented in this encounter Plan of Treatment Upcoming Encounters Date Type Department Care Team (Late st Contact Info) Description 03/16/2025 1:30 PM EDT Office Visit Dermatology at [place] [address] [facility] [place] [address] Emiliano Salinas MD [address], [place] [address] documented as of this encounter Visit Diagnoses Diagnosis Familial hypercholesterolemia Pure hypercholesterolemia documented in this encounter Care Teams Senior Research Project Manager Relationship Specialty Start Date End Date Mary Altamirano MD PCP - General Family Medicine 09/03/21 10/11/21 documented as of this encounter
--- OUTSIDE RECORDS SUMMARY | 2024-04-30 13:11 | XMS_ITS | Encounter Summary ---
Author Organization [facility] Address [facility] [place] [address] Care Team Providers Care Ink Grinder Name Role Phone Juan Smith MD Primary Care Provider [phone] Encounter Details Date Type Department Care Team (Late st Contact Info) Description 12/21/2021 Telephone Cardiology at [address] [address] Dariela Manzano RN Social History Tobacco Use Types Packs/Day [...] also asking for a referral to a supervisor final in [place]. Forward to Dr Santiago documented in this encounter Plan of Treatment Upcoming Encounters Date Type Department Care Team (Late st Contact Info) Description 03/16/2025 1:30 PM EDT Office Visit Dermatology at [place] [address] [facility] [place] [address] Emiliano Salinas MD [address], [place] [address] documented as of this encounter Visit Diagnoses Not on filedocumented in this encounter Care Teams Ink Grinder Relationship Specialty Start Date End Date Juan Smith MD PCP - General Family Medicine 10/12/21 01/25/22 documented as of this encounter
--- OUTSIDE RECORDS SUMMARY | 2024-04-30 13:11 | XMS_ITS | Encounter Summary ---
Author Organization [facility] Address [facility] [place] [address] Care Team Providers Care Pharmaceutical Physician Name Role Phone Juan Smith MD Primary Care Provider [phone] Encounter Details Date Type Department Care Team (Late st Contact Info) Description 05/26/2021 Telephone Cardiology at [address] [place] [address] Liam Noel MD [facility] [place] [address] Social History Tobacco Use Types Packs/Day Years [...] Patient called, she sees Dr. Rodriguez @ [facility] Cardiology for her cholesterol. She is asking if Dr. Noel or Dr. Daniel deal with this issue. She takes Nexletol with Zetia as she can not take statins. She would like to get out of the trips to [facility] and have a Division Commander here. #[phone] documented in this encounter Plan of Treatment Upcoming Encounters Date Type Department Care Team (Late st Contact Info) Description 03/16/2025 1:30 PM EDT Office Visit Dermatology at [place] [address] [facility] [place] [address] Emiliano Salinas MD [address], [place] [address] documented as of this encounter Visit Diagnoses Not on filedocumented in this encounter Care Teams Pharmaceutical Physician Relationship Specialty Start Date End Date Juan Smith MD PCP - General Family Medicine 05/10/16 09/02/21 documented as of this encounter
--- OUTSIDE RECORDS SUMMARY | 2024-04-30 13:11 | XMS_ITS | Encounter Summary ---
[place] [address] Care Team Providers Care Invertebrate Paleontologist Name Role Phone Juan Smith MD Primary Care Provider [phone] Reason for Visit * Reason Onset Date Comments Prior Authorization 09/01/2020 Nexlatol Encounter Details Date Type Department Care Team (Late st Contact Info) Description 09/01/2020 Telephone Cardiology at [address] [address] Rere Stock dyer and washer (Nexlatol) Social History Tobacco Use Types Packs/Day [...] EDT The following outcome notification received from [facility]: YESSENIA LUONG Gonsales: [id number] - PA - Rx #: [id number] Need help? Call us at Outcome Approvedtoday Your request has been approved DrugNexletol 180MG tablets FormCare[employer] Medicare Electronic PA Form Original Claim [id number] Call placed to the [facility] pharmacy with the approval. No answer at the pharmacy. Call placed to pt with the above information. No answer at the home number listed. Message left for the pt to call her [facility] pharmacy to arrange getting her medication refilled. She is to call cardiology with any questions. * Telephone Encounter - Rere Stock RN - 09/02/2020 1:31 PM EDT Checking on the status of the PA requests, this jingle writer noted that the request had not been sent to [facility]. Form re-faxed. YESSENIA LUONG (Gonsales: [id number]) Your information has been submitted to [facility] Medicare Part D. [facility] Medicare Part D will review the request and will issue a decision, typically within 1-3 days from your submission. You can check the updated outcome later by reopening this request. If [facility] Medicare Part D has not responded in 1-3 days or if you have any questions about your ePA request, please contact [facility] Medicare Part D at [phone]. If you think there may be a [...] copy of Dr Montalvo's clinic note to [facility] Medicare for review. Awaiting the determination. YESSENIA LUONG Gonsales: [id number] - NOMI - Rx #: [id number] Need help? Call us at Status Additional Information Required DrugNexletol 180MG tablets [employer] Medicare Electronic PA Form Original Claim [id number] documented in this encounter Plan of Treatment Upcoming Encounters Date Type Department Care Team (Late st Contact Info) Description 03/16/2025 1:30 PM EDT Office Visit Dermatology at [place] [address] [facility] [place] [address] Emiliano Salinas MD [address], [place] [address] documented as of this encounter Visit Diagnoses Not on filedocumented in this encounter Care Teams Invertebrate Paleontologist Relationship Specialty Start Date End Date Juan Smith MD PCP - General Family Medicine 05/10/16 09/02/21 documented as of this encounter
--- OUTSIDE RECORDS SUMMARY | 2024-04-30 13:11 | XMS_ITS | Encounter Summary ---
Author Organization [facility] [place] [address] Care Team Providers Care In Home Aide Name Role Phone Mary Altamirano MD [...] 1:30 PM EDT Office Visit Dermatology at [place] [address] [facility] [place] [phone] Emiliano Salinas MD [address], [place] [address] documented as of this encounter Visit Diagnoses Not on filedocumented in this encounter Care Teams In Home Aide Relationship Specialty Start Date End Date Mary Altamirano MD [phone] (work) PCP - General Family Medicine 01/26/22 08/26/22 documented as of this encounter
--- OUTSIDE RECORDS SUMMARY | 2024-04-30 13:11 | XMS_ITS | Encounter Summary ---
Author Organization [facility] Address [facility] [place] [address] Care Team Providers Care Map Maker Name Role Phone Mary Altamirano MD Primary Care Provider Encounter Details Date Type Department Care Team (Late st Contact Info) Description 08/01/2022 11:00 AM EST Office Visit Cardiology at [address] [place] [address] Delfina Santiago MD [facility] [place] [address] Nell Inman, [facility] Familial hypercholesterolemia; THERESA (obstructive sleep apnea); Dyspnea, [...] causing symptoms. 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 PR[place]ENTIL HFA 90 mcg/actuation HFA [...] Once daily ??? 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 [...] 190 At goal 02/16/22 ApoB 84 Lp(a) 12 Mar 26 2022 Total cholesterol 269 LDL [...] previous lipid evaluation and recommendations; 30 minutes dqrd-rv-ytlh and 10 minutes coordination of care 1) glbm-qv-zhrl counseling as noted above 2) reviewing past medical records, cardiac testing, results of laboratory testing 3) coordinating care with other physicians and allied health care providers This patient was seen and evaluated by both Delfina Santiago MD EdD [facility] JASON and Courtney Knapps part of a Collaborative Practice Agreement. Dr. Santiago supervised in and participated in all aspects of this appointment This clinic note includes: 1. History, Review of Symptoms, Examination, Vital Signs, Medication Review, Assessment and Plan byDelfina Santiago MD, Vonnie 2. Documentation of evaluation, recommendations, and counseling by Nell Inman PharmD. Delfina Santiago MD, Vonnie, ANAJLI, JASON Attending Insulation Board Coater Operator Sports Cardiology Program Preventive Cardiology Lipid Clinic Advanced Hypertension Clinic * Nell Inman [facility] - 08/01/2022 11:00 AM EST Cardiology Education: Multi-Specialty Visit Delfina Santiago MD, Vonnie, ANJALI, JASON & Nell Inman PharmD, [facility] Visit Type: Twrm-gj-Yjsf Summary of Recommendations & Next Steps: The [...] management of hyperlipidemia. 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 [...] Once daily ??? Mometasone (NASONEX) 50 mcg/Actuation [place] 2 [place](s) each nostril, Nasal, Twice daily ??? atorvastatin [...] azelastine (ASTELIN) 137 mcg (0.1 %) Aerosol, [place] 0 ??? PROVENTIL HFA 90 mcg/actuation HFA [...] Office Visit Dermatology at [place] [address] [place] [address] Emiliano Salinas MD [address], MANINDER [place] [address] documented as of this encounter Visit Diagnoses Diagnosis Familial hypercholesterolemia Pure hypercholesterolemia THERESA (obstructive sleep apnea) Obstructive sleep apnea (adult) (pediatric) Dyspnea, unspecified type documented in this encounter Care Teams Map Maker Relationship Specialty Start Date End Date Mary Altamirano MD PCP - General Family Medicine 01/26/22 08/26/22 documented as of this encounter
--- OUTSIDE RECORDS SUMMARY | 2024-04-30 13:11 | XMS_ITS | Encounter Summary ---
Author Organization [facility] [place] [address] Care Team Providers Care Product Development Scientist Name Role Phone Mary Altamirano MD Primary Care Provider [phone] Encounter Details Date Type Department Care Team (Latest Contact Info) Description 04/23/2022 1:00 PM EST TH Visit (TeleHealth) Cardiology at [address] [address] Derick Acosta, [facility] [place] [address] Nutritional counseling Social History Tobacco Use Types [...] Vascular Center Cardiovascular Medicine Cardiology Nutrition Follow-up [facility] [address] , #2 eFax: NO SHOW 04/23/22 Identification Yessenia Luong is a 72 y.o. patient of Mary Campbell MD referred to Cardiology Dietitian Human Resources Technician By Delfina Santiago MD, Lipidologist, for nutrition [...] a 72-year-old patient of Delfina Santiago MD, Licensed Embalmer Supervisor, referred to cardiology RDN for hyperlipidemia in [...] privilege of working with this patient. Derick Acsota RDN, LD This was a TeleHealth Nutrition Visit. Patient verbalizes consent to the telehealth visit for nutrition counseling and coaching. cc: Mary Campbell MD [address] [place] [address] / [facility] [id number] documented in this encounter Plan of Treatment Upcoming Encounters Date Type Department Care Team (Late st Contact Info) Description 03/16/2025 1:30 PM EDT Office Visit Dermatology at [address] [place] [address] Emiliano Salinas MD [address] [place] [address], [facility] [place] [address] documented as of this encounter Visit Diagnoses Diagnosis Nutritional counseling documented in this encounter Care Teams Product Development Scientist Relationship Specialty Start Date End Date Mary Altamirano MD PCP - General Family Medicine 01/26/22 08/26/22 documented as of this encounter
--- OUTSIDE RECORDS SUMMARY | 2024-04-30 13:11 | XMS_ITS | Encounter Summary ---
Author Organization [facility] [place] [address] Care Team Providers Care Farm Consultant Name Role Phone Juan Smith MD Primary Care Provider [phone] Reason for Visit * Reason Onset Date Comments Follow-up 04/26/2020 med change Encounter Details Date Type Department Care Team (Late st Contact Info) Description 04/26/2020 Telephone Cardiology at [address] [address] Rere Stock RN Follow-up (med change) Social History Tobacco [...] and have the f/u labs done at [facility] prior to the visit. Order e-faxed to [facility] and a copy mailed to the [...] 1:30 PM EDT Office Visit Dermatology at [place] [address] [place] [address] Emiliano Salinas MD [address], MANINDER [place] [address] documented as of this encounter Visit Diagnoses Diagnosis Familial hypercholesterolemia Pure hypercholesterolemia documented in this encounter Care Teams Farm Consultant Relationship Specialty Start Date End Date Juan Simth MD PCP - General Family Medicine 05/10/16 09/02/21 documented as of this encounter
--- OUTSIDE RECORDS SUMMARY | 2024-04-30 13:11 | XMS_ITS | Encounter Summary ---
[place] [address] Care Team Providers Care Parole Or Probation Officer Name Role Phone Juan Smith MD Primary Care Provider [phone] Reason for Visit * Reason Comments Medication Refill Encounter Details Date Type Department Care Team (Late st Contact Info) Description 10/12/2020 Refill Cardiology at [address] [phone] Tory Montalvo MD Medication Refill Social History [...] 1:30 PM EDT Office Visit Dermatology at [place] [address] [place] [address] Emiliano Salinas MD [address], BAKARI Bhatt DERMATOLOGY [place], [place] [phone] documented as of this encounter Visit Diagnoses Diagnosis Familial hypercholesterolemia Pure hypercholesterolemia documented in this encounter Care Teams Parole Or Probation Officer Relationship Specialty Start Date End Date Juan Smith MD PCP - General Family Medicine 05/10/16 09/02/21 documented as of this encounter
--- OUTSIDE RECORDS SUMMARY | 2024-04-30 13:11 | XMS_ITS | Encounter Summary ---
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 PROVENTIL HFA 90 mcg/actuation HFA [...] Once daily ??? Mometasone (NASONEX) 50 mcg/Actuation [place] 2 [place](s) each nostril, Nasal, Twice daily No current [...] monitor liver function tests). Blood tests at [place] in about 6 weeks Time spent for this clinic appointment on the date of service includes: 25 minutes review of her chart and previous lipid evaluation and recommendations; 30 minutes ciix-dv-vovd and 10 minutes coordination of care 1) mvti-ka-xdfe counseling as noted above 2) reviewing past medical records, cardiac testing, results of laboratory testing 3) coordinating care with other physicians and allied health care providers Delfina Santiago MD, Vonnie, FACC, FNLA Attending Packing And Shipping Clerk Sports Cardiology Program Preventive Cardiology Lipid Clinic Advanced Hypertension Clinic documented in this encounter Plan of Treatment Upcoming Encounters Date Type Department Care Team (Late st Contact Info) Description 03/16/2025 1:30 PM EDT Office Visit Dermatology at [place] [address] [facility] [place] [address] Emiliano Salinas MD [address], BAKARI [place] [address] documented as of this encounter Results * Hepatic Function Panel (08/01/2022 7:52 AM EST) [facility] Protein, Total 7.1 6.1 - 8.0 [...] In Lab Delfina Santiago MD CHEMISTRY ORDERABLES [facility] [place] [address] * (ABNORMAL) Apolipoprotein B (08/01/2022 7:52 AM EST) Pathologist [facility] Apolipoprotein B (OCTOBER) 169(H) mg/dL [facility] Comment: REFERENCE VALUE Desirable: <90 Above Desirable: 90-99 Borderline high: 100-119 High: 120-139 Very high: > or = 140 Test Performed by: [facility] - [address] [address] Record Label Intern: Kyle Michel M.D. Ph.D.; CLIA# [id number] Blood 08/01/2022 7:52 AM EST 08/01/2022 12:39 PM EST Narrative Resulting Agency Comment Spec In Lab Delfina Santiago MD LAB SEND OUT ORDERAB LES Performing Organization Address City/State/[facility] Co de Phone Number [facility] [place] [address] * Lipid Panel (Reflex Direct LDL) (08/01/2022 7:52 AM EST) Cholesterol, Total 366 mg/dL [facility] Comment: Lower Risk: <200 mg/dL Average Risk: 200-239 mg/dL Higher Risk: >yr=738 mg/dL Triglyceride 195 mg/dL [facility] Comment: Average Risk/Lower Risk: <150 mg/dL Borderline High Risk: 150-199 mg/dL High Risk: 200-499 mg/dL Very High Risk: >av=963 mg/dL HDL Cholesterol 91 mg/dL [facility] Comment: Males: ?? Higher Risk: <40 mg/dL Females: ?? Higher Risk: <50 mg/dL LDL Cholesterol 236 mg/dL [facility] Comment: Lowest Risk: <100 mg/dL Lower Risk: 100-129 mg/dL Borderline High Risk: 130-159 mg/dL High Risk: 160-189 mg/dL Very High Risk: >fe=326 mg/dL Cholesterol/HDL Ratio 4.0 ratio [facility] Lipid Interpretation See Note [facility] Comment: Lipid management should be guided by a patient? s ASCVD risk, goals and preferences. ACC/AHA Guidelines recommend high intensity statin if clinical ASCVD or LDL greater than or equal to 190 mg/dL. http://tinyurl.com/NFM-UYK-Jyfzmivin Adults aged 40-75 with LDL 70-189 mg/dL should have their 10 year ASCVD risk estimated with the ACC/AHA ASCVD risk job cost estimator http://tools.acc.org/BFDYI-Eejp-Xakllncum/ Statin should be discussed if risk greater [...] Santiago MD CHEMISTRY ORDERABLES Performing Organization Address City/State/[facility] Co de Phone Number [facility] [place] [address] documented in this encounter Visit Diagnoses Diagnosis Familial hypercholesterolemia Pure hypercholesterolemia THERESA (obstructive sleep apnea) Obstructive sleep apnea (adult) (pediatric) documented in this encounter Care Teams Deputy Building Guard Relationship Specialty Start Date End Date Mary Altamirano MD PCP - General Family Medicine 01/26/22 08/26/22 documented as of this encounter
--- OUTSIDE RECORDS SUMMARY | 2024-04-30 13:11 | XMS_ITS | Encounter Summary ---
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, pt would like to transfer care to Mary Sands MD [address] [place] [address] [facility] Cardiology [address] [place] [phone] Referral ID Status Reason Start Date Expiration Date V isits Requested Visits Authorized [id number] Closed Consult, Test & Treat PCP Updated and/or Approved 10/12/2021 10/12/2022 10 10 Encounter Details Date Type Department Care Team (Latest Contact Info) Description 10/12/2021 Transcribe Orders eDH Incoming Referrals [phone] Mary Altamirano MD [address] [place] [address] Familial hypercholesterolemia Social History Tobacco Use [...] 1:30 PM EDT Office Visit Dermatology at [place] [address] [facility] [address] [place] [address] Emiliano Salinas MD [address], [place] [address] Scheduled Referrals Name Type Priority Associated Diagnoses Orde r Schedule Referral to Cardiology Outpatient Referral Routine Familial hypercholesterolemia Ordered: 10/12/2021 documented as of this encounter Visit Diagnoses Diagnosis Familial hypercholesterolemia Pure hypercholesterolemia documented in this encounter Care Teams Firearms Assembly Supervisor Relationship Specialty Start Date End Date Juan Smith MD PCP - General Family Medicine 10/12/21 01/25/22 documented as of this encounter
--- OUTSIDE RECORDS SUMMARY | 2024-04-30 13:11 | XMS_ITS | Encounter Summary ---
Author Organization [facility] [place] [address] Care Team Providers Care Gore Cutter Name Role Phone Juan Smith MD Primary Care Provider [phone] Encounter Details Date Type Department Care Team (Late st Contact Info) Description 04/19/2020 Telephone Cardiology at [address] [phone] Leona Vallejo, RN Social History Tobacco Use [...] She would like [facility] if able. She also requests to have her f/u labs in [facility] as well. Will send lab order to [facility] Leona Vallejo program development manager Clinic at [facility] [address] documented in this encounter Plan of Treatment Upcoming Encounters Date Type Department Care Team (Late st Contact Info) Description 03/16/2025 1:30 PM EDT Office Visit Dermatology at [place] [address] [place] [address] Emiliano Salinas MD [address], [place] [address] documented as of this encounter Visit Diagnoses Diagnosis Familial hypercholesterolemia Pure hypercholesterolemia documented in this encounter Care Teams Gore Cutter Relationship Specialty Start Date End Date Juan Smith MD PCP - General Family Medicine 05/10/16 09/02/21 documented as of this encounter
--- OUTSIDE RECORDS SUMMARY | 2024-04-30 13:11 | XMS_ITS | Encounter Summary ---
Author Organization [facility] [place] [address] Care Team Providers Care Hyperion Administrator Name Role Phone Juan Smith MD Primary Care Provider [phone] Encounter Details Date Type Department Care Team (Late st Contact Info) Description 01/12/2020 Telephone Cardiology at [address] [phone] Tory Olivas, RN Social History Tobacco Use [...] 1:30 PM EDT Office Visit Dermatology at [place] [address] [facility] [place] [address] Emiliano Salinas MD [address], [place]AKAR[place] [address] documented as of this encounter Visit Diagnoses Not on filedocumented in this encounter Care Teams Hyperion Administrator Relationship Specialty Start Date End Date Juan Smith MD PCP - General Family Medicine 05/10/16 09/02/21 documented as of this encounter
--- OUTSIDE RECORDS SUMMARY | 2024-04-30 13:11 | XMS_ITS | Encounter Summary ---
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 ??She was in 2002 and has had a significant other for many years. ??Boyfriend (Deacon Peterson) lives in [place].?She has??5??children??(2 biologic and 2 step) 3 biologic and 8 step??grandchildren. ??She enjoys travel, walking, kayaking, reading, and gardening friends and family ?? Present Illness: Yessenia S [place]??is seen at [...] azelastine (ASTELIN) 137 mcg (0.1 %) Aerosol, [place] 0 ??? PROVENTIL HFA 90 mcg/actuation HFA [...] Once daily ??? Mometasone (NASONEX) 50 mcg/Actuation [place] 2 [place](s) each nostril, Nasal, Twice daily No current [...] 1:30 PM EDT Office Visit Dermatology at [place] [address] [place] [address] Emiliano Salinas MD [address], [place] [address] documented as of this encounter Visit Diagnoses Diagnosis Familial hypercholesterolemia Pure hypercholesterolemia documented in this encounter Care Teams Cost Estimating Clerk Relationship Specialty Start Date End Date Juan Smith MD PCP - General Family Medicine 05/10/16 09/02/21 documented as of this encounter
--- OUTSIDE RECORDS SUMMARY | 2024-04-30 13:11 | XMS_ITS | Encounter Summary ---
Author Organization [facility] [place] [address] Care Team Providers Care Testing Director Name Role Phone Mary Altamirano MD Primary [...] 1:30 PM EDT Office Visit Dermatology at [place] [address] [facility] [place] [phone] Emiliano Salinas MD [address], [place] [address] documented as of this encounter Visit Diagnoses Not on filedocumented in this encounter Care Teams Testing Director Relationship Specialty Start Date End Date Mary Altamirano MD [phone] (work) PCP - General Family Medicine 01/26/22 08/26/22 documented as of this encounter
--- OUTSIDE RECORDS SUMMARY | 2024-04-30 13:11 | XMS_ITS | Encounter Summary ---
Author Organization [facility] Address [facility] [place] [address] Care Team Providers Care Fire Tower Keeper Name Role Phone Mary Altamirano MD Primary Care Provider [phone] Reason for Visit * Consultation (Routine) - Closed Specialty Diagnoses / Procedures Referred By Veronica brantley Referred To Contact Vascular Surgery Diagnoses Peripheral venous insufficiency MARY / TESTING DONE Ester Gupta, DO [address] [place] [address] [facility] [address] [place] [address] Referral ID Status Reason Start Date Expiration Date V isits Requested Visits Authorized [id number] Closed Consult, Test & Treat 01/14/2022 01/14/2023 1 1 Encounter Details Date Type Department Care Team (Late st Contact Info) Description 02/16/2022 9:30 AM EDT Office [place] [address] Kyle Pagan III, MD [address] [place] [address] [place] [address] Varicose veins of left lower extremity with [...] azelastine (ASTELIN) 137 mcg (0.1 %) Aerosol, [place], , Disp: , Rfl: 0 ??? PROVENTIL [...] , Rfl: ??? Mometasone (NASONEX) 50 mcg/Actuation [place], 2 [place](s) each nostril, Nasal, Twice daily, Disp: , [...] Visit from 02/16/2022 in Vascular Surgery at [facility] Weight 72.6 kg (160 lb) Height 161.3 [...] 1:30 PM EDT Office Visit Dermatology at [place] [address] [place] [address] Emiliano Salinas MD [address] [facility], [place] [address] Scheduled Referrals Name Type Priority Associated Diagnoses Orde r Schedule Referral to Vascular Surgery Outpatient Referral Routine Peripheral venous insufficiency Ordered: 01/14/2022 documented as of this encounter Visit Diagnoses Diagnosis 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
--- OUTSIDE RECORDS SUMMARY | 2024-04-30 13:11 | XMS_ITS | Encounter Summary ---
Author Organization [facility] [place] [address] Care Team Providers Care Medical Concierge Name Role Phone Mary Altamirano MD Primary [...] 1:30 PM EDT Office Visit Dermatology at [place] [address] [facility] [place] [phone] Emiliano Salinas MD [address], B[place]AR[place] [address] documented as of this encounter Visit Diagnoses Not on filedocumented in this encounter Care Teams Medical Concierge Relationship Specialty Start Date End Date Mary Altamirano MD [phone] (work) PCP - General Family Medicine 01/26/22 08/26/22 documented as of this encounter
--- OUTSIDE RECORDS SUMMARY | 2024-04-30 13:11 | XMS_ITS | Encounter Summary ---
[place] [address] Care Team Providers Care Hall Monitor Name Role Phone Mary Altamirano MD Primary Care Provider [phone] Reason for Visit * Reason Onset Date Comments Prior Authorization 10/10/2021 Nexletol PA renewal Encounter Details Date Type Department Care Team (Late st Contact Info) Description 10/10/2021 Telephone Cardiology at [address] [phone] Rere Stock casting machine operator automatic (Nexletol PA renewal) Social History Tobacco Use [...] left for the pt to call this ad writer to confirm that she is taking the medication and at what dose. She is also needing to schedule a f/u visit w/Dr Montalvo. Call placed to the [facility] pharmacy in [place], [place] phone [phone] S/w pharmacy staff. The prescription was processed. Pt's co-pay is $60/90 day supply. They will have to order the medication. It should been in by 10/13/21. Awaiting a call back from the pt to get/give the above information. * Telephone Encounter - Rere Stock RN - 10/10/2021 7:16 PM EDT PA request received from [employer] in [place], [place] phone [phone] for Nexletol. Request processed via Cover My Meds. Insurance information: [facility] managed Medicare. ID#: [id number] BIN: [id number] PCN: MIDPRIME GR: [id number] Yessenia Luong Gonsales: [id number] - PA help? Call us at Outcome Approvedtoday CaseId:[id number];Status:Approved;Review Type:Prior Auth;Coverage Start Date:09/10/2021;Coverage End Date:10/10/2022; Drug Nexletol 180MG tablets Form [employer] Electronic PA Form (2016 NCPDP) documented in this encounter Plan of Treatment Upcoming Encounters Date Type Department Care Team (Late st Contact Info) Description 03/16/2025 1:30 PM EDT Office Visit Dermatology at [place] [address] [facility] [place] [address] Emiliano Salinas MD [address], BAKARI A DERMATOLOGY [place], [place] [phone] documented as of this encounter Visit Diagnoses Not on filedocumented in this encounter Care Teams Hall Monitor Relationship Specialty Start Date End Date Mary Altamirano MD PCP - General Family Medicine 09/03/21 10/11/21 documented as of this encounter
--- OUTSIDE RECORDS SUMMARY | 2024-04-30 13:11 | XMS_ITS | Encounter Summary ---
[place] [address] Care Team Providers Care Electrical Systems Engineer Name Role Phone Mary Altamirano MD Primary Care Provider Reason for Referral * Psychiatric (Routine) - Closed Specialty Diagnoses / Procedures Referred By Contac t Referred To Contact Psychiatry Diagnoses Anxiety with depression Mary Altamirano MD [address] [place] [address] [facility] [address] [place] [address] Referral ID Status Reason Start Date Expiration Date V isits Requested Visits Authorized [id number] Closed Consult, Test & Treat PCP Updated and/or Approved 01/26/2022 01/26/2023 10 10 Encounter Details Date Type Department Care Team (Latest Contact Info) Description 01/26/2022 Transcribe Orders eDH Incoming Referrals [phone] Mary Altamirano MD [address] [place] [address] Anxiety with depression Social History Tobacco [...] 1:30 PM EDT Office Visit Dermatology at [place] [address] [facility] [place] [address] Emiliano Salinas MD [address], BAKAR[place] [address] Scheduled Referrals Name Type Priority Associated Diagnoses Order Schedule Referral to Psychiatry Outpatient Referral Routine Anxiety with depression Ordered: 01/26/2022 documented as of this encounter Visit Diagnoses Diagnosis Anxiety with depression documented in this encounter Care Teams Electrical Systems Engineer Relationship Specialty Start Date End Date Mary Altamirano MD PCP - General Family Medicine 01/26/22 08/26/22 documented as of this encounter
--- OUTSIDE RECORDS SUMMARY | 2024-04-30 13:11 | XMS_ITS | Encounter Summary ---
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, pt would like to transfer care to Mary Sands MD [address] [place] [address] [facility] [address] [place] [phone] Referral ID Status Reason Start Date Expiration Date V isits Requested Visits Authorized [id number] Closed Consult, Test & Treat PCP Updated and/or Approved 10/12/2021 10/12/2022 10 10 Encounter Details Date Type Department Care Team (Latest Contact Info) Description 11/24/2021 1:00 PM EDT Office Visit Cardiology at [address] [address] Delfina Santiago MD [facility] [place] [address] Familial hypercholesterolemia Social History Tobacco Use [...] 412 LDL 296 HDL 93 TG 118 [address]257 total cholesterol 273 LDL 151 HDL 75 [...] Social history:??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 ??She was in 2002 and has had a significant other for many years. ??Her significant other (Deacon Peterson) lives in [place].?She has??5??children and 3 biologic and 8 step??grandchildren. [...] azelastine (ASTELIN) 137 mcg (0.1 %) Aerosol, [place] 0 ??? PROVENTIL HFA 90 mcg/actuation HFA [...] Once daily ??? Mometasone (NASONEX) 50 mcg/Actuation [place] 2 [place](s) each nostril, Nasal, Twice daily No current [...] History Narrative Retired, previously worked as school laboratory technician. 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 Social [...] 412 LDL 296 HDL 93 TG 118 6/15/22 total cholesterol 273 LDL 151 HDL 75 [...] about 6 weeks. These will be at [facility] 01/22/22 ADDENDUM 01/17/22 apoB 89Lp(a) 19.8 (ULN < 75) Total cholesterol 212 LDL 115 HDL 59 TG 190 Time spent for this clinic appointment on the date of service includes: 25 minutes review of her chart and previous lipid evaluation and recommendations; 30 minutes pwrd-yg-burw and 10 minutes coordination of care 1) jwia-ne-uigs counseling as noted above 2) reviewing past medical records, cardiac testing, results of laboratory testing 3) coordinating care with other physicians and allied health care providers Delfina Santiago MD, Vonnie, FACC, FNLA Attending Service Desk Associate Sports Cardiology Program Preventive Cardiology Lipid Clinic Advanced Hypertension Clinic documented in this encounter Plan of Treatment Upcoming Encounters Date Type Department Care Team (Late st Contact Info) Description 03/16/2025 1:30 PM EDT Office Visit Dermatology at [place] [address] [facility] [place] [address] Eimliano Salinas MD [address], [place] [address] documented as of this encounter Results * Apolipoprotein B (02/16/2022 11:50 AM EDT) Pathologist [facility] Apolipoprotein B (OCTOBER) 84 mg/dL [facility] Comment: REFERENCE VALUE Desirable: <90 Above Desirable: 90-99 Borderline high: 100-119 High: 120-139 Very high: > or = 140 Test Performed by: [facility] [address] [place] [address] Radial Drill Press Operator: Kyle Michel M.D. Ph.D.; CLIA# [id number] Blood 02/16/2022 11:5 0 AM EDT 02/16/2022 3:50 PM EDT Narrative Resulting Agency Comment Spec In Lab Delfina Santiago MD LAB SEND OUT ORDERAB LES [facility] [place] [address] * Lipoprotein A (02/16/2022 11:50 AM EDT) Pathologist [facility] Lipoprotein(A) ( <75 nmol/L [facility] Comment: ADDITIONAL INFORMATION Please notice that Lp(a) values are reported in molar units (nmol/L). ??These units are recommended by professional society guidelines and expert opinion statements. ??Measured results and risk thresholds are higher than those generated using mass units (mg/dL). Cardiovascular risk increases starting at 75 nmol/L. Lp(a) >=125 nmol/L is considered a risk enhancing factor by the [employer] [employer]. This test has been modified from the engineering recruiter's instructions. Its performance characteristics were determined by [facility] in a manner consistent with CLIA requirements. This test has not been cleared or approved by the U.S. Food and Drug Administration. Test Performed by: [facility] [address] [place] [address] Radial Drill Press Operator: Kyle Michel M.D. Ph.D.; CLIA# [id number] Blood 02/16/2022 11:5 0 AM EDT 02/16/2022 3:50 PM EDT Narrative Resulting Agency Comment Spec In Lab Delfina Santiago MD LAB SEND OUT ORDERAB LES [facility] [place] [address] documented in this encounter Visit Diagnoses Diagnosis Familial hypercholesterolemia Pure hypercholesterolemia documented in this encounter Care Teams Hot Worker Relationship Specialty Start Date End Date Juan Smith MD PCP - General Family Medicine 10/12/21 01/25/22 documented as of this encounter
--- OUTSIDE RECORDS SUMMARY | 2024-04-30 13:11 | XMS_ITS | Encounter Summary ---
Author Organization [facility] Address [place] [address] Care Team Providers Care Scouring Machine Tender Name Role Phone Mary Altamirano MD Primary Care Provider [phone] Encounter Details Date Type Department Care Team (Late st Contact Info) Description 06/14/2022 Telephone Cardiology at [address] [address] Dariela Manzano, RN Social History [...] way up. She can be reached at [phone]. Forward to Dr Santiago. * Telephone Encounter - Dariela Manzano RN - 06/14/2022 12:55 PM EST Telephone call from Ms Luong,states she has noted onset of muscle pain and aches as well as muscle spasms since initiating atorvastatin 80 mg daily. She has not tried ozond-byijn-hvh dosing-she is agreeable to trying this. Last [...] non-daily basis) Blood tests in ~6 weeks [place] Forward to Dr Santiago documented in this encounter Plan of Treatment Upcoming Encounters Date Type Department Care Team (Late st Contact Info) Description 03/16/2025 1:30 PM EDT Office Visit Dermatology at [place] [address] [facility] [place] [address] Emiliano Salinas MD [address], [place] [address] documented as of this encounter Visit Diagnoses Not on filedocumented in this encounter Care Teams Scouring Machine Tender Relationship Specialty Start Date End Date Mary Altamirano MD PCP - General Family Medicine 01/26/22 08/26/22 documented as of this encounter
--- OUTSIDE RECORDS SUMMARY | 2024-04-30 13:11 | XMS_ITS | Encounter Summary ---
Author Organization [facility] [place] [address] Care Team Providers Care Database Programmer Analyst Name Role Phone Mary Altamirano MD Primary Care Provider [phone] Encounter Details Date Type Department Care Team [...] 1:30 PM EDT Office Visit Dermatology at [place] [address] [facility] [place] [phone] Emiliano Salinas MD [address], BAKARI [place] [address] documented as of this encounter Visit Diagnoses Not on filedocumented in this encounter Care Teams Database Programmer Analyst Relationship Specialty Start Date End Date Mary Altamirano MD [phone] (work) PCP - General Family Medicine 01/26/22 08/26/22 documented as of this encounter
--- OUTSIDE RECORDS SUMMARY | 2024-04-30 13:11 | XMS_ITS | Encounter Summary ---
Author Organization [facility] [place] [address] Care Team Providers Care Sound Technician Supervisor Name Role Phone Juan Smith MD Primary Care Provider [phone] Reason for Visit * Diagnostic Test (Routine) - Closed Specialty Diagnoses / Procedures Referred By Veronica brantley Referred To Contact Diagnoses Asymptomatic varicose veins Procedures Venous Valvular Incomp, Bilat Legs Chet Bales, DO [address] [place] [address] [facility] Vascular Lab [address] [address] Referral ID Status Reason Start Date Expiration Date V isits Requested Visits Authorized [id number] Closed Specialty Service Requested 10/10/2021 10/10/2022 1 1 Encounter Details Date Type Department Care Team (Late st Contact Info) Description 11/24/2021 10:00 AM EDT Tech [place] [address] Mukund Davis, RVT Asymptomatic varicose [...] 1:30 PM EDT Office Visit Dermatology at [place] [address] [place] [address] Emiliano Salinas MD [address], BAKARI [place] [address] documented as of this encounter Procedures Procedure Name Priority Date/Time Associated Diagnosis Comments VENOUS VALVULAR INCOMP, BILAT LEGS Routine 11/24/2021 9:44 AM EDT Asymptomatic varicose veins documented in this encounter Results * Venous Valvular Incomp, Bilat Legs (11/24/2021 9:44 AM EDT) VB Text Report Department: Vascular Surgery Lab Patient: [id number] (YESSENIA LUONG) CPT: [id number] Referring Physician: CHET BALES ?? Phone: Indications: [...] veins documented in this encounter Care Teams Sound Technician Supervisor Relationship Specialty Start Date End Date Juan Smith MD PCP - General Family Medicine 10/12/21 01/25/22 documented as of this encounter
--- OUTSIDE RECORDS SUMMARY | 2024-04-30 13:11 | XMS_ITS | Encounter Summary ---
[place] [address] Care Team Providers Care Dairy Nutritionist Name Role Phone Juan Smith MD Primary Care Provider [phone] Reason for Visit * Reason Comments Medication Refill Encounter Details Date Type Department Care Team (Late st Contact Info) Description 01/18/2021 Refill Cardiology at [address] [address] Tory Montalvo MD Medication Refill Social History [...] 1:30 PM EDT Office Visit Dermatology at [place] [address] [place] [address] Emiliano Salinas MD [address], BAKARI Bhatt DERMATOLOGY [place], [place] [address] documented as of this encounter Visit Diagnoses Diagnosis Familial hypercholesterolemia Pure hypercholesterolemia documented in this encounter Care Teams Dairy Nutritionist Relationship Specialty Start Date End Date Juan Smith MD PCP - General Family Medicine 10/12/21 01/25/22 documented as of this encounter
--- OUTSIDE RECORDS SUMMARY | 2024-04-30 13:11 | XMS_ITS | Encounter Summary ---
[place] [address] Care Team Providers Care 5Th Grade Teacher Name Role Phone Mary Altamirano MD Primary Care Provider Reason for Referral * Diagnostic Test (Routine) - Closed Specialty Diagnoses / Procedures Referred By Veronica brantley Referred To Contact Diagnoses Asymptomatic varicose veins Procedures Venous Valvular Incomp, Bilat Legs Chet Bales DO [address] [place] [address] [address] [place] [address] [facility] Vascular Lab [address] [place] [phone] Referral ID Status Reason Start Date Expiration Date V isits Requested Visits Authorized [id number] Closed Specialty Service Requested 10/10/2021 10/10/2022 1 1 Encounter Details Date Type Department Care Team (Late st Contact Info) Description 10/10/2021 Transcribe Orders [place] [address] Chet Bales DO [address] [place] [address] [address] [place] [address] Asymptomatic varicose veins Social History [...] 1:30 PM EDT Office Visit Dermatology at [address] [place] [address] Emiliano Salinas MD [address], BAKARI [place] [address] documented as of this encounter Results * Venous Valvular Incomp, Bilat Legs (11/24/2021 9:44 AM EDT) VB Text Report Department: Vascular Surgery Lab Patient: [id number] (YESSENIA LUONG) CPT: [id number] Referring Physician: CHET BALES ?? Phone: Indications: [...] veins documented in this encounter Care Teams 5Th Grade Teacher Relationship Specialty Start Date End Date Mary Altamirano MD PCP - General Family Medicine 09/03/21 10/11/21 documented as of this encounter
--- OUTSIDE RECORDS SUMMARY | 2024-04-30 13:11 | XMS_ITS | Encounter Summary ---
Author Organization [facility] [place] [address] Care Team Providers Care Mortgage Loan Closer Name Role Phone Mary Altamirano MD Primary Care Provider [phone] Encounter Details Date Type Department Care Team [...] 1:30 PM EDT Office Visit Dermatology at [place] [address] [facility] [place] [phone] Emiliano Salinas MD [address], BAKAR[place] [address] documented as of this encounter Visit Diagnoses Not on filedocumented in this encounter Care Teams Mortgage Loan Closer Relationship Specialty Start Date End Date Mary Altamirano MD [phone] (work) PCP - General Family Medicine 01/26/22 08/26/22 documented as of this encounter
--- OUTSIDE RECORDS SUMMARY | 2024-04-30 13:11 | XMS_ITS | Encounter Summary ---
[place] [address] Care Team Providers Care Contracting Executive Name Role Phone uJan Smith MD Primary Care Provider [phone] Reason for Visit * Reason Comments Medication Refill Encounter Details Date Type Department Care Team (Late st Contact Info) Description 05/14/2021 Refill Cardiology at [address] [address] Tory Montalvo MD Medication Refill Social History [...] 1:30 PM EDT Office Visit Dermatology at [place] [address] [place] [address] Emiliano Salinas MD [address], BAKARI Bhatt DERMATOLOGY [place], [place] [address] documented as of this encounter Visit Diagnoses Diagnosis Familial hypercholesterolemia Pure hypercholesterolemia documented in this encounter Care Teams Contracting Executive Relationship Specialty Start Date End Date Juan Smith MD PCP - General Family Medicine 10/12/21 01/25/22 documented as of this encounter
--- OUTSIDE RECORDS SUMMARY | 2024-04-30 13:11 | XMS_ITS | Encounter Summary ---
[place] [address] Care Team Providers Care Deburrer Name Role Phone Juan Smith MD Primary Care Provider [phone] Reason for Referral * Consultation (Routine) - Closed Specialty Diagnoses / Procedures Referred By Veronica brantley Referred To Contact Vascular Surgery Diagnoses Peripheral venous insufficiency TANSKI / TESTING DONE Ester Gupta DO [address] [place] [address] [address] [place] [address] [facility] Vascular Surg [address] [place] [address] Referral ID Status Reason Start Date Expiration Date V isits Requested Visits Authorized [id number] Closed Consult, Test & Treat 01/14/2022 01/14/2023 1 1 Encounter Details Date Type Department Care Team (Latest Contact Info) Description 01/14/2022 Transcribe Orders eDH Incoming Referrals [phone] Ester Gupta DO [address] [place] [address] [address] [place], [place] [id number] Peripheral venous insufficiency Social History Tobacco Use [...] 1:30 PM EDT Office Visit Dermatology at [place] [address] [place] [address] Emiliano Salinas MD [address], [place] [address] Scheduled Referrals Name Type Priority Associated Diagnoses Orde r Schedule Referral to Vascular Surgery Outpatient Referral Routine Peripheral venous insufficiency Ordered: 01/14/2022 documented as of this encounter Visit Diagnoses Diagnosis Peripheral venous insufficiency Unspecified venous (peripheral) insufficiency documented in this encounter Care Teams Deburrer Relationship Specialty Start Date End Date Juan Smith MD PCP - General Family Medicine 10/12/21 01/25/22 documented as of this encounter
--- OUTSIDE RECORDS SUMMARY | 2024-04-30 13:12 | XMS_ITS | Encounter Summary ---
Author Organization [facility] [place] [address] Care Team Providers Care Stock Sorter Name Role Phone Juan Smith MD Primary Care Provider [phone] Reason for Referral * Diagnostic Test (Routine) - Closed Specialty Diagnoses / Procedures Referred By Contac t Referred To Contact Radiology Diagnoses Chest pain, unspecified type SOB (shortness of breath) Procedures NM Pharmacologic Stress CT Component Tory Montalvo MD [facility] [place] [address] [place] [address] Referral ID Status Reason Start Date Expiration Date V isits Requested Visits Authorized [id number] Closed Specialty Service Requested 02/13/2019 02/13/2020 1 1 Reason for Visit * Diagnostic Test (Routine) - Closed Specialty Diagnoses / Procedures Referred By Contac t Referred To Contact Radiology Diagnoses Chest pain, unspecified type SOB (shortness of breath) Procedures NM Pharmacologic Stress CT Component Tory Montalvo MD [facility] [place] [address] [place] [address] Referral ID Status Reason Start Date Expiration Date V isits Requested Visits Authorized [id number] Closed Specialty Service Requested 02/13/2019 02/13/2020 1 1 Encounter Details Date Type Department Care Team (Latest Contact Info) Description 03/12/2019 9:24 AM EDT Hospital Encounter [place] [address] Tory Montalvo MD Chest pain, unspecified type; [...] azelastine (ASTELIN) 137 mcg (0.1 %) Aerosol, [place] 0 11/06/2017 0 09/03/2022 ASCORBATE CALCIUM (VITAMIN C ORAL) Take by mouth. 09/03/2022 ERGOCALCIFEROL, VITAMIN D2, (VITAMIN D ORAL) Take by mouth. multivitamin (THERAGRAN) tablet Take 1 tablet by mouth daily. 09/03/2022 fexofenadine (EVANGELINA) 180 mg tablet 180 mg, PO, Once daily 08/28/2010 09/03/2022 Mometasone (NASONEX) 50 mcg/Actuation [place] 2 [place](s) each nostril, Nasal, Twice daily 08/28/2010 09/03/2022 documented as of this encounter Plan of Treatment Upcoming Encounters Date Type Department Care Team (Late st Contact Info) Description 03/16/2025 1:30 PM EDT Office Visit Dermatology at [place] [address] [facility] [place] [address] Emiliano Salinas MD [address] [facility], B[place]AR[place] [address] documented as of this encounter Procedures Procedure [...] breath documented in this encounter Care Teams Stock Sorter Relationship Specialty Start Date End Date Juan Smith MD PCP - General Family Medicine 05/10/16 09/02/21 documented as of this encounter
--- OUTSIDE RECORDS SUMMARY | 2024-04-30 13:12 | XMS_ITS | Encounter Summary ---
Author Organization [facility] Address [facility] [place] [address] Care Team Providers Care Glass Bender Name Role Phone Juan Smith MD Primary Care Provider [phone] Reason for Visit * Reason Comments Procedure Encounter Details Date Type Department Care Team (Late st Contact Info) Description 03/12/2019 3:30 PM EDT Office Visit Dermatology at [facility] [address] [place] [address] Vern Salmeron MD [facility] [address] [place] [address] Encounter for cosmetic procedure Social History Tobacco [...] - 03/12/2019 3:30 PM EDT Yessenia Luong [id number] 03/12/2019 Provider: Raymundo Salmeron M.D. ([id number]) Chief Problem: 1. Rosacea & Telangiectasias 2. [...] accuracy of the documentation in this encounter, M. MD Raymundo Caballero M.D. Section of Dermatology documented in this encounter Plan of Treatment Upcoming Encounters Date Type Department Care Team (Late st Contact Info) Description 03/16/2025 1:30 PM EDT Office Visit Dermatology at [place] [address] [facility] [place] [address] Emiliano Salinas MD [address], BAKARI [place] [address] documented as of this encounter Visit Diagnoses Diagnosis Encounter for cosmetic procedure documented in this encounter Care Teams Glass Bender Relationship Specialty Start Date End Date Juan Smith MD PCP - General Family Medicine 05/10/16 09/02/21 documented as of this encounter
--- OUTSIDE RECORDS SUMMARY | 2024-04-30 13:12 | XMS_ITS | Encounter Summary ---
Author Organization [facility] Address [facility] [place] [address] Care Team Providers Care Battery Wrecker Operator Name Role Phone Juan Smith MD Primary Care Provider [phone] Reason for Visit * Reason Comments Skin Check Encounter Details Date Type Department Care Team (Late st Contact Info) Description 02/12/2017 10:00 AM EDT Office Visit Dermatology at [facility] [address] [place] [address] Vern Salmeron MD [facility] [address] [place] [address] Androgenic alopecia Social History Tobacco Use Types [...] 02/12/2017 10:00 AM EDT Yessenia Luong 02/12/2017 [id number] Raymundo Salmeron MD ([id number]) Chief Problem: 1. Pigmented Lesion and Skin [...] MAGNESIUM ORAL) ??? Mometasone (NASONEX) 50 mcg/Actuation [place] 2 [place](s) each nostril, Nasal, Twice daily No current [...] [5% strength] to promote hair growth. This jiaw-kkm-piflala product is FDA-approved for androgenetic alopecia, and [...] 1:30 PM EDT Office Visit Dermatology at [place] [address] [place] [address] Emiliano Salinas MD [address] [facility], [facility], [place] [address] documented as of this encounter Visit Diagnoses Diagnosis Androgenic alopecia Other alopecia documented in this encounter Care Teams Battery Wrecker Operator Relationship Specialty Start Date End Date Juan Smith MD PCP - General Family Medicine 05/10/16 09/02/21 documented as of this encounter
--- OUTSIDE RECORDS SUMMARY | 2024-04-30 13:12 | XMS_ITS | Encounter Summary ---
Author Organization [facility] Address [facility] [place] [address] Care Team Providers Care Food Cart Attendant Name Role Phone Chantell Sharma APRN Primary Care Provider [phone] Reason for Visit * Reason Comments Follow Up Surgery BBR and abdominoplas ty Encounter Details Date Type Department Care Team (Late st Contact Info) Description 06/28/2015 1:00 PM EST Office [place] [address] Carlee Marvin MD [facility] [place] [address] Status post bilateral breast reduction Social History [...] may remove with PCP or return to [facility]. 9. While traveling make sure to walk [...] with rectus plication Complications: None reported Pain: 510 HPI: Pt reports she has been well. [...] may remove with PCP or return to [facility]. 9. While traveling make sure to walk [...] 1:30 PM EDT Office Visit Dermatology at [place] [address] [place] [address] Emiliano Salinas MD [address] [facility], [place] [address] documented as of this encounter Visit Diagnoses Diagnosis Status post bilateral breast reduction Other postprocedural status documented in this encounter Care Teams Food Cart Attendant Relationship Specialty Start Date End Date Chantell Sharma APRN PCP - General 07/09/13 05/09/16 documented as of this encounter
--- OUTSIDE RECORDS SUMMARY | 2024-04-30 13:12 | XMS_ITS | Encounter Summary ---
Author Organization [facility] Address [facility] [place] [address] Care Team Providers Care Size Tester Name Role Phone Juan Smith MD Primary Care Provider Encounter Details Date Type Department Care Team (Latest Contact Info) Description 10/09/2019 2:00 PM EDT TH Visit (TeleHealth) Cardiology at [address] [phone] Tory Montalvo MD Familial hypercholesterolemia Social History [...] completely intolerant of statins. I asked my circuit design engineer, Basilia Mart to schedule Yessenia for a [...] 1:30 PM EDT Office Visit Dermatology at [place] [address] [facility] [place] [address] Emiliano Salinas MD [address] [facility], [place] [address] documented as of this encounter Visit Diagnoses Diagnosis Familial hypercholesterolemia Pure hypercholesterolemia documented in this encounter Care Teams Size Tester Relationship Specialty Start Date End Date Juan Smith MD PCP - General Family Medicine 05/10/16 09/02/21 documented as of this encounter
--- OUTSIDE RECORDS SUMMARY | 2024-04-30 13:12 | XMS_ITS | Encounter Summary ---
Author Organization [facility] [place] [address] Care Team Providers Care Specialty Person Name Role Phone Juan Smith MD Primary Care Provider [phone] Reason for Visit * Diagnostic Test (Routine) - Closed Specialty Diagnoses / Procedures Referred By Contsherry t Referred To Contact Radiology Diagnoses Chest pain, unspecified type SOB (shortness of breath) Procedures NM Pharmacologic Stress Myocardial Perfusion Tory Montalvo MD [facility] [place] [address] [place] [address] Referral ID Status Reason Start Date Expiration Date V isits Requested Visits Authorized [id number] Closed Specialty Service Requested 03/05/2019 05/03/2019 1 1 Encounter Details Date Type Department Care Team (Latest Contact Info) Description 03/12/2019 9:23 AM EDT Hospital Encounter [place] [address] Tory Montalvo MD Discharge Disposition: [...] azelastine (ASTELIN) 137 mcg (0.1 %) Aerosol, [place] 0 11/06/2017 0 09/03/2022 ASCORBATE CALCIUM (VITAMIN C ORAL) Take by mouth. 09/03/2022 ERGOCALCIFEROL, VITAMIN D2, (VITAMIN D ORAL) Take by mouth. multivitamin (THERAGRAN) tablet Take 1 tablet by mouth daily. 09/03/2022 fexofenadine (EVANGELINA) 180 mg tablet 180 mg, PO, Once daily 08/28/2010 09/03/2022 Mometasone (NASONEX) 50 mcg/Actuation [place] 2 [place](s) each nostril, Nasal, Twice daily 08/28/2010 09/03/2022 documented as of this encounter Plan of Treatment Upcoming Encounters Date Type Department Care Team (Late st Contact Info) Description 03/16/2025 1:30 PM EDT Office Visit Dermatology at [place] [address] [facility] [place] [address] Emiliano Salinas MD [address] [facility] [address], [place] [address] documented as of this encounter Procedures Procedure [...] contact the number below. Tory Montalvo MD [facility] [place] ORDERABLES documented in this encounter Visit Diagnoses Not on filedocumented in this encounter Care Teams Specialty Person Relationship Specialty Start Date End Date Juan Smith MD PCP - General Family Medicine 05/10/16 09/02/21 documented as of this encounter
--- OUTSIDE RECORDS SUMMARY | 2024-04-30 13:12 | XMS_ITS | Encounter Summary ---
Author Organization [facility] [place] [address] Care Team Providers Care Loan Adviser Name Role Phone Juan Smith MD Primary Care Provider [phone] Reason for Referral * Diagnostic Test (Routine) - Closed Specialty Diagnoses / Procedures Referred By Contac t Referred To Contact Radiology Diagnoses Chest pain, unspecified type SOB (shortness of breath) Procedures NM Pharmacologic Stress Myocardial Perfusion Tory Chambers MD [facility] [place] [address] [place] [address] Referral ID Status Reason Start Date Expiration Date V isits Requested Visits Authorized [id number] Closed Specialty Service Requested 03/05/2019 05/03/2019 1 1 * Diagnostic Test (Routine) - Closed Specialty Diagnoses / Procedures Referred By Contac t Referred To Contact Radiology Diagnoses Chest pain, unspecified type SOB (shortness of breath) Procedures NM Pharmacologic Stress CT Component Tory Chambers MD [facility] [place] [address] [place] [address] Referral ID Status Reason Start Date Expiration Date V isits Requested Visits Authorized [id number] Closed Specialty Service Requested 02/13/2019 02/13/2020 1 1 Reason for Visit * Consultation (Routine) - Closed Specialty Diagnoses / Procedures Referred By Contac t Referred To Contact Cardiology Diagnoses Familial hypercholesterolemia Pt has not tolerated statins or PSK9 agents. Referral to [facility] lipid clinic. Juan Smith MD [address] [place] [address] [place] [address] Tory Chambers MD [facility] [place] [address] Referral ID Status Reason Start Date Expiration Date Visits Re quested Visits Authorized [id number] Closed 12/09/2018 12/09/2019 1 1 Encounter Details Date Type Department Care Team (Late st Contact Info) Description 02/13/2019 11:20 AM EDT Office Visit Cardiology at [place] [phone] Tory Chambers MD Familial hypercholesterolemia; Chest pain, [...] Chambers MD - 02/13/2019 11:20 AM EDT [facility] Lipid Clinic--Initial Consultation [...] Social history: 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 She was in 2002 and has had a significant other for many years. Boyfriend (Deacon Peterson) lives in [place]. She has 5 children (2 biologic and [...] She has a niece that works for [employer] and told her about the [employer] [...] chicken sausage coffee almond milk Lunch: salad Khmer dressing, Oat bread sandwich - cheese and [...] azelastine (ASTELIN) 137 mcg (0.1 %) Aerosol, [place] 0 ??? [place] HFA 90 mcg/actuation HFA [...] Once daily ??? Mometasone (NASONEX) 50 mcg/Actuation [place] 2 [place](s) each nostril, Nasal, Twice daily No current [...] explained that it is offered here at [facility] but that it is quite a commitment. [...] 1:30 PM EDT Office Visit Dermatology at [place] [address] [facility] [place] [address] Emiliano Salinas MD [address] [facility], BAKAR[place] [address] documented as of this encounter Results * CRP, cardiac risk (HS CRP) (04/17/2019 9:21 AM EST) Pathologist [facility] C-Reactive Protein High Sensitivity 1.6 mg/L WHITE [...] and Cardiovascular Disease. ??Circulation 2003; 107:499-511 2. Ridker PM. ??Clinical applications of C-reactive protein for cardiovascular disease detection and prevention. ??Circulation 2003; 107:363-369 CRP Cardiac Risk Moderate Risk [facility] Blood specimen (specimen) 04/17/2019 9:21 AM EST 04/17/2019 9:40 AM EST Narrative Resulting Agency Comment Spec In Lab Tory Chambers MD CHEMISTRY ORDERABLES [facility] [place] [address] * Lipid Panel (Reflex Direct LDL) (04/17/2019 9:21 AM EST) [facility] Cholesterol, Total 252 mg/dL [facility] Comment: Lower Risk: <200 mg/dL Average Risk: 200-239 mg/dL Higher Risk: >bo=776 mg/dL Triglyceride 157 mg/dL [facility] Comment: Average Risk/Lower Risk: <150 mg/dL Borderline High Risk: 150-199 mg/dL High Risk: 200-499 mg/dL Very High Risk: >ov=832 mg/dL HDL Cholesterol 74 mg/dL [facility] Comment: Males: ?? Higher Risk: <40 mg/dL Females: ?? HIgher Risk: <50 mg/dL LDL Cholesterol 147 mg/dL [facility] Comment: Lowest Risk: <100 mg/dL Lower Risk: 100-129 mg/dL Borderline High Risk: 130-159 mg/dL High Risk: 160-189 mg/dL Very High Risk: >qn=507 mg/dL Cholesterol/HDL Ratio 3.4 ratio [facility] Lipid Interpretation See Note [facility] Comment: Lipid management should be guided by a patient? s ASCVD risk, goals and preferences. ACC/AHA Guidelines recommend high intensity statin if clinical ASCVD or LDL greater than or equal to 190 mg/dL. http://drop.io.com/WXS-AUR-Rmtdflxly Adults aged 40-75 with LDL 70-189 mg/dL should have their 10 year ASCVD risk estimated with the ACC/AHA ASCVD risk timber estimator http://tools.acc.org/FPLGS-Ehup-Hsrptjfxv/ Statin should be discussed if risk greater [...] In Lab Tory Chambers MD CHEMISTRY ORDERABLES [facility] [place] [address] * NM Pharmacologic Stress CT Component (03/12/2019 [...] Tory Chambers MD IMG NM ORDERABLES * TSH (02/13/2019 9:49 AM EDT) Thyroid Stimulating Hormone 2.34 0.27 - 4.20 mcIU/mL [facility] Blood specimen (specimen) 02/13/2019 9:49 AM EDT 02/13/2019 9:59 AM EDT Narrative Resulting Agency Comment Spec In Lab Tory Chambers MD CHEMISTRY ORDERABLES [facility] [place] [address] * (ABNORMAL) Comprehensive metabolic panel (non-fasting) (02/13/2019 9:49 AM EDT) Glucose 108 65 - 199 mg/dL [facility] Comment:Diabetes: >=200 mg/d L plus symptoms Blood Urea Nitrogen 19(H) 8 - 18 mg/dL [facility] Creatinine 0.79 0.70 - 1.20 mg/dL [facility] Sodium 142 135 - 145 mmol/L [facility] Potassium 3.6 3.5 - 5.0 mmol/L [facility] Comment: Please note: ??Patients with WBC >100,000 may have falsely elevated Potassium levels. ??For accurate Potassium quantification in these patients send serum separator tube (gold top) for subsequent determinations. ??Contact the Clinical Chemistry Laboratory if there are any questions. Chloride 101 98 - 107 mmol/L [facility] Carbon Dioxide 28 22 - 31 mmol/L [facility] Anion Gap 13 5 - 15 mmol/L [facility] Calcium 9.8 8.5 - 10.5 mg/dL [facility] Protein, Total 7.5 6.1 - 8.0 gm/dL [facility] Albumin 4.8 3.2 - 5.2 gm/dL [facility] Aspartate Aminotransferase 22 0 - 30 unit/L [facility] Alanine Aminotransferase 24 0 - 30 unit/L [facility] Alkaline Phosphatase 64 35 - 105 unit/L [facility] Bilirubin, Total 0.4 0.2 - 1.3 mg/dL [facility] Est Glomerular Filtration Rate 76 >=60 mL/min/1. 73 m?? [facility] Comment: The eGFR was calculated using the CKD-EPI equation. As with all creatinine based estimates of kidney function, eGFR values calculated with the CKD-EPI equation are not accurate in patients with acute kidney failure, extremes of body mass or the acutely ill. http://Nomacorc/DHMCnkf eGFR 88 >=60 mL/min/1. 73 m?? [facility] Comment: The eGFR was calculated using the CKD-EPI equation. As with all creatinine based estimates of kidney function, eGFR values calculated with the CKD-EPI equation are not accurate in patients with acute kidney failure, extremes of body mass or the acutely ill. http://Nomacorc/DHMCnkf Blood specimen (specimen) 02/13/2019 9:49 AM EDT 02/13/2019 9:59 AM EDT Narrative Resulting Agency Comment Spec In Lab Tory Chambers MD CHEMISTRY ORDERABLES Performing Organization Address [facility] Co de Phone Number [facility] [place] [address] * Lipoprotein A (02/13/2019 9:49 AM EDT) Lipoprotein (a) 6 <=30 mg/dL [facility] Comment: Test Performed by: [place] [address] Transfusion Aide: Kyle Michel M.D. Ph.D.; CLIA# [id number] Blood specimen (specimen) 02/13/2019 9:49 AM EDT 02/13/2019 3:06 PM EDT Narrative Resulting Agency Comment Spec In Lab Tory Chambers MD LAB SEND OUT ORDERAB LES Performing Organization Address City/[facility]/ZIP Co de Phone Number [facility] [place] [address] * Lipid Panel (02/13/2019 9:49 AM EDT) Cholesterol, Total 324 mg/dL [facility] Comment: Lower Risk: <200 mg/dL Average Risk: 200-239 mg/dL Higher Risk: >ch=331 mg/dL Triglyceride 183 mg/dL [facility] Comment: Average Risk/Lower Risk: <150 mg/dL Borderline High Risk: 150-199 mg/dL High Risk: 200-499 mg/dL Very High Risk: >lu=318 mg/dL HDL Cholesterol 68 mg/dL [facility] Comment: Males: ?? Higher Risk: <40 mg/dL Females: ?? HIgher Risk: <50 mg/dL LDL Cholesterol 219 mg/dL [facility] Comment: Lowest Risk: <100 mg/dL Lower Risk: 100-129 mg/dL Borderline High Risk: 130-159 mg/dL High Risk: 160-189 mg/dL Very High Risk: >tg=729 mg/dL Cholesterol/HDL Ratio 4.8 ratio [facility] Lipid Interpretation See Note [facility] Comment: Lipid management should be guided by a patient? s ASCVD risk, goals and preferences. ACC/AHA Guidelines recommend high intensity statin if clinical ASCVD or LDL greater than or equal to 190 mg/dL. http://drop.io.com/ZFF-RBV-Btnduminm Adults aged 40-75 with LDL 70-189 mg/dL should have their 10 year ASCVD risk estimated with the ACC/AHA ASCVD risk timber estimator http://tools.acc.org/BJONB-Mcks-Uayvlbvfd/ Statin should be discussed if risk greater [...] In Lab Tory Chambers MD CHEMISTRY ORDERABLES [facility] [place] [id number] documented in this encounter Visit Diagnoses Diagnosis Familial hypercholesterolemia Pure hypercholesterolemia Chest pain, unspecified type SOB (shortness of breath) Shortness of breath Chest pain, unspecified type SOB (shortness of breath) Shortness of breath Chest pain, unspecified type SOB (shortness of breath) Shortness of breath documented in this encounter Care Teams Loan Adviser Relationship Specialty Start Date End Date Juan Smith MD PCP - General Family Medicine 05/10/16 09/02/21 documented as of this encounter
--- OUTSIDE RECORDS SUMMARY | 2024-04-30 13:12 | XMS_ITS | Encounter Summary ---
Author Organization [facility] Address [facility] [place] [address] Care Team Providers Care Fur Matcher Name Role Phone Juan Smith MD Primary Care Provider [phone] Encounter Details Date Type Department Care Team (Late st Contact Info) Description 12/30/2017 1:30 PM EDT Office Visit Weight and Wellness at [address] [address] Vanesa Cesar, Mary Reynolds, RD [facility] [place] [address] Adult BMI 30.0-30.9 kg/sq m Social History [...] each occasion 1 drink. 2. In a democrat situation (or out to eat) think about [...] day Weight Today: Vitals 12/30/2017 12/06/2017 Height (Namibian) 5' 3.504 5' 3.504 Height (Metric) 161.3 cm 161.3 cm Weight (Namibian) 173 lbs 6 oz 174 lbs 14 [...] between meals, however, now that we're in democrat mode- thinks this might end around February, [...] was an ~1800 calorie day Typical Beverages: [place] milk, unsweetened iced tea, wine, etc. Interview: Yessenia reports that she doesn't snack in between meals but eats too much at each meal. Going to [facility] for 3 weeks, discussed that it would [...] that matches her measured RMR (~1,400). The cardiac care nurse goal for [place] be closer to [...] choices discussed, goals below. Barriers to Change: democrat mode Nutrition Goals: 1. Measure out wine or liquor a few times to get a sense of portions (5 oz. Wine or 1.5 oz. Liquor). Choose your method of reducing: Every other occasion (2 drinks) OR each occasion 1 drink. 2. In a democrat situation (or out to eat) think about [...] 1,400. Assessing Calorie Goals at this time? [facility] Metrics 12/30/2017 RMR (kcal/day) 1389 Monitor/Evaluate: Will follow up in [facility] for Eatsmarter classes Aim for 5-10% weight loss from ABW x 3-6 months from initial visit Thank you 45 minutes were spent today in face to face contact Mary Cerna RD LD documented in this encounter Plan of Treatment Upcoming Encounters Date Type Department Care Team (Late st Contact Info) Description 03/16/2025 1:30 PM EDT Office Visit Dermatology at [place] [address] [place] [address] Emiliano Salinas MD [address] [facility] [address], BAKAR[place] [address] documented as of this encounter Visit Diagnoses Diagnosis Adult BMI 30.0-30.9 kg/sq m Body Mass Index 30.0-30.9, adult documented in this encounter Care Teams Fur Matcher Relationship Specialty Start Date End Date Juan Smith MD PCP - General Family Medicine 05/10/16 09/02/21 documented as of this encounter
--- OUTSIDE RECORDS SUMMARY | 2024-04-30 13:12 | XMS_ITS | Encounter Summary ---
Author Organization [facility] [place] [address] Care Team Providers Care Animal Maintenance Supervisor Name Role Phone Juan Smith MD Primary Care Provider [phone] Reason for Visit * Reason Onset Date Comments Questions 10/19/2019 more lab orders? Encounter Details Date Type Department Care Team (Late st Contact Info) Description 10/19/2019 Telephone Cardiology at [address] [address] Rere Stock RN Questions (more lab orders?) [...] 1:30 PM EDT Office Visit Dermatology at [place] [address] [facility] [place] [address] Emiliano Salinas MD [address] [facility], [place] [address] documented as of this encounter Visit Diagnoses Not on filedocumented in this encounter Care Teams Animal Maintenance Supervisor Relationship Specialty Start Date End Date Juan Smith MD PCP - General Family Medicine 05/10/16 09/02/21 documented as of this encounter
--- OUTSIDE RECORDS SUMMARY | 2024-04-30 13:12 | XMS_ITS | Encounter Summary ---
Author Organization [facility] [place] [address] Care Team Providers Care Manager Inpatient Name Role Phone Juan Smith MD Primary Care Provider [phone] Encounter Details Date Type Department Care Team (Late st Contact Info) Description 12/24/2019 Telephone Cardiology at [address] [phone] Ester Urbano, RN Social History Tobacco Use [...] Urbano RN - 12/24/2019 2:16 PM EDT rec'd requesting that her labs be sent to [facility]. This nurse able to establish [...] EDT Office Visit Dermatology at [place] [address] [place] [address] Emiliano Salinas MD [address], [place] [address] documented as of this encounter Visit Diagnoses Not on filedocumented in this encounter Care Teams Manager Inpatient Relationship Specialty Start Date End Date Juan Smith MD PCP - General Family Medicine 05/10/16 09/02/21 documented as of this encounter
--- OUTSIDE RECORDS SUMMARY | 2024-04-30 13:12 | XMS_ITS | Encounter Summary ---
Author Organization [facility] Address [facility] [place] [address] Care Team Providers Care Christmas Bell Ringer Name Role Phone Chantell Sharma APRN Primary Care Provider [phone] Reason for Visit * Reason Comments Skin Check Hair Loss Encounter Details Date Type Department Care Team (Late st Contact Info) Description 02/06/2016 10:00 AM EDT Office Visit Dermatology at [facility] [address] [place] [phone] Javan Juares MD [facility] [address] [place] [address] Androgenetic alopecia; Telangiectasia; Rhytides Social History Tobacco [...] also a patient of Dr. Salinas in [facility]. Skin History: Rosacea Telangiectasia Medical History: Past [...] MAGNESIUM ORAL) ??? Mometasone (NASONEX) 50 mcg/Actuation [place] 2 [place](s) each nostril, Nasal, Twice daily No current [...] the pt - discussed PDL versus IPL. J. Brown, RN,was apart for some of this conversation, [...] for and in the presence of . Hreminia Chong LPN I performed the above scribed service and agree with the accuracy of the documentation in this encounter, Javan Juares MD Reviewed and signed by Javan Juares MD Resident in Dermatology [facility] Staff gas systems worker: Karla Gaines MD Section of Dermatology [facility] * Karla Gaines MD - 02/06/2016 10:00 AM EDT I was the supervising physician working with Dermatology resident, Dr. Juares, in the Dermatology Clinic during this patient visit. The level of resident supervision for this patient visit was indirect supervision with direct supervision immediately available (definition: [facility] [place] Statement on Graduate Medical Education, Supervision of Graduate Medical Trainees). I was immediately available to Dr. Juares for questions and discussion regarding this visit. I have reviewed his encounter note details and level of service. KARLA GAINES MD [facility] Staff Physician documented in this encounter Plan of Treatment Upcoming Encounters Date Type Department Care Team (Late st Contact Info) Description 03/16/2025 1:30 PM EDT Office Visit Dermatology at [place] [address] [place] [address] Emiliano Salinas MD [address], [place]AR[place] [address] documented as of this encounter Visit Diagnoses Diagnosis Androgenetic alopecia Other alopecia Telangiectasia Other and unspecified capillary diseases Rhytides Other specified hypertrophic and atrophic condition of skin documented in this encounter Care Teams Christmas Bell Ringer Relationship Specialty Start Date End Date Chantell Sharma APRN PCP - General 07/09/13 05/09/16 documented as of this encounter
--- OUTSIDE RECORDS SUMMARY | 2024-04-30 13:12 | XMS_ITS | Encounter Summary ---
Author Organization [facility] [place] [address] Care Team Providers Care Non Morse Intercept Technician Name Role Phone Juan Smith MD Primary Care Provider [phone] Reason for Visit * Diagnostic Test (Routine) - Closed Specialty Diagnoses / Procedures Referred By Contsherry t Referred To Contact Radiology Diagnoses Chest pain, unspecified type SOB (shortness of breath) Procedures NM Pharmacologic Stress Myocardial Perfusion Tory Montalvo MD [facility] [place] [address] [place] [address] Referral ID Status Reason Start Date Expiration Date V isits Requested Visits Authorized [id number] Closed Specialty Service Requested 03/05/2019 05/03/2019 1 1 Encounter Details Date Type Department Care Team (Latest Contact Info) Description 03/12/2019 9:24 AM EDT Hospital Encounter [place] [address] Tory Montalvo MD Discharge Disposition: [...] azelastine (ASTELIN) 137 mcg (0.1 %) Aerosol, [place] 0 11/06/2017 0 09/03/2022 ASCORBATE CALCIUM (VITAMIN C ORAL) Take by mouth. 09/03/2022 ERGOCALCIFEROL, VITAMIN D2, (VITAMIN D ORAL) Take by mouth. multivitamin (THERAGRAN) tablet Take 1 tablet by mouth daily. 09/03/2022 fexofenadine (EVANGELINA) 180 mg tablet 180 mg, PO, Once daily 08/28/2010 09/03/2022 Mometasone (NASONEX) 50 mcg/Actuation [place] 2 [place](s) each nostril, Nasal, Twice daily 08/28/2010 09/03/2022 documented as of this encounter Plan of Treatment Upcoming Encounters Date Type Department Care Team (Late st Contact Info) Description 03/16/2025 1:30 PM EDT Office Visit Dermatology at [place] [address] [place] [phone] Emiliano Salinas MD [address], [place] [address] documented as of this encounter Procedures Procedure [...] Arm documented in this encounter Care Teams Non Morse Intercept Technician Relationship Specialty Start Date End Date Juan Smith MD PCP - General Family Medicine 05/10/16 09/02/21 documented as of this encounter
--- OUTSIDE RECORDS SUMMARY | 2024-04-30 13:12 | XMS_ITS | Encounter Summary ---
Author Organization [facility] Address [facility] [place] [address] Care Team Providers Care Gaming Cage Worker Name Role Phone Juan Smith MD Primary Care Provider [phone] Reason for Visit * Reason Comments Weight Management * Consultation (Routine) - Specialty Diagnoses / Procedures Referred By Contac t Referred To Contact Weight and Wellness Diagnoses familail hypercholesterolemia, THERESA, increased BMI, hypothyroidism Georgia Garduno MD [address] [place] [address] [facility] [address] [place] [phone] Referral ID Status Reason Start Date Expiration Date V isits Requested Visits Authorized [id number] Consult, Test & Treat [facility] 10/28/2017 10/28/2018 1 1 Encounter Details Date Type Department Care Team (Late st Contact Info) Description 12/06/2017 9:00 AM EDT Office Visit Weight and Wellness at [facility] [address] [place] [address] Natalie Stephens MD [facility] [place] [address] Class 1 obesity; THERESA on CPAP; Depression, [...] Date: 12/06/17 PI/Designee: Dr. Félix Hernandez/Brian Hudson [facility] [id number]: [facility] Biorepository VELOS: [id number] Yessenia Luong??consented to participate in the above-named [...] consent. Brian Hudson, CCRC Associate Research Coordinator [facility] [place] Pager: [phone] * Natalie Stephens MD - 12/06/2017 9:00 [...] a 67 y.o. female referred to the [facility] for an evaluation of obesity. Weight History: [...] bigger portions. She notes that as an [place], there is a culture of eating, and eating is love. She denies a history of binge eating; she notes that she does have very large servings of food after drinking too much--3-4 glasses of wine at a constitution party. Lowest weight in adulthood was 128 pounds at the time she was in 1978. Prior weight loss attempts have included reduced portion sizes, skipped meals, decreased intake of fat and carbohydrates, increased physical activity and weight loss medications. She has participated in structured weightloss programs including Weight [employer], [facility] [place]. She has not used yaay-pwq-wugycau weight loss medications. She has used prescription [...] Exercise: Riding her bike 1-2x/week, occasional walking [facility] Initial Responses 12/06/2017 URICA - Readiness Score [...] TFEQ-Emotional Eating 66.66 Food Insecurity Score 2 [place] Category I Result 1 (Positive) [place] Category II Result 1 (Positive) [place] Category III 0 (Negative) [place] Sleep Apnea Total 2 (High Risk) Schooling [...] ability to hike and be physically active [facility] Followup Responses 12/06/2017 URICA - Readiness Score [...] appendectomy Family History: Reviewed and updated in eDH. Social History: Reviewed and updated in eD. [...] AND RECOMMENDATIONS: Yessenia Luong presents to the [facility] for a consultative visit regarding obesity management. [...] that obesity is a chronic disease requiring manager long term care management. Obesity is associated with increased risk [...] counseling: The patient is interested in the Healthy[employer]styles Program (HLP) at the [facility], but due to her distance from the [...] ?? Intolerant of statins--followed by a local shampoo person, and currently maintained on evolocumab. THERESA: ?? Diagnosed with sleep study ?? Continue CPAP as prescribed I spent a total of 60 minutes with the patient 45 minutes of which were spent in [id number] discussion/counseling re obesity, nutrition and activity as [...] 1:30 PM EDT Office Visit Dermatology at [place] [address] [place] [phone] Emiliano Salinas MD [address], [place]AR[place] [address] documented as of this encounter Procedures Procedure [...] PM EDT) Biorepository Hold Sample in lab [facility] Stool specimen (specimen) 12/13/2017 2:00 PM EDT 12/24/2017 1:18 PM EDT Narrative Resulting Agency Comment Spec In Lab Natalie Stephens MD MOLECULAR ORDERABLES Performing Organization Address City/[facility]/ZIP Co de Phone Number [facility] [place] [address] * Biorepository Request (12/06/2017 10:45 AM EDT) [facility] Biorepository Hold Sample in lab [facility] Blood specimen (specimen) 12/06/2017 10:45 AM EDT 12/06/2017 4:01 PM EDT Narrative Resulting Agency Comment Spec In Lab Natalie Stephens MD MOLECULAR ORDERABLES Performing Organization Address [facility] Co de Phone Number [facility] [place] [address] * Vitamin D, 25-Hydroxy (12/06/2017 10:45 AM EDT) [facility] Vitamin D Total 25 OH 41 30 - 100 ng/mL [facility] Comment: Deficient <10 ng/mL Insufficient 10 to 29 ng/mL Sufficient 30 to 100 ng/mL Potential Intoxication >100 ng/mL According to the US National Osteoporosis Foundation, Vitamin D concentrations >30 ng/mL are sufficient to protect bone health. ??The National Kidney Foundation has similarly stated that patients with Vitamin D concentrations <30ng/mL should be considered to be insufficient or deficient. http://Ajungo.VT Silicon/nkf-guidelines http://BoxVentures/nejm-VitD The IDS iSYS Vitamin D Immunoassay detects both 25-OH Vitamin D2 and 25-OH Vitamin D3, but only a total Vitamin D concentration is reported. Blood specimen (specimen) 12/06/2017 10:45 AM EDT 12/06/2017 2:47 PM EDT Narrative Resulting Agency Comment Spec In Lab Natalie Stephens MD CHEMISTRY ORDERABLES Performing Organization Address City/[facility]/ZIP Co de Phone Number [facility] [place] [address] * (ABNORMAL) Comprehensive metabolic panel (non-fasting) (12/06/2017 10:45 AM EDT) [facility] Glucose 99 65 - 199 mg/dL [facility] Comment:Diabetes: >=200 mg/d L plus symptoms Blood Urea Nitrogen 21(H) 8 - 18 mg/dL [facility] Creatinine 0.79 0.70 - 1.20 mg/dL [facility] Sodium 144 135 - 145 mmol/L [facility] Potassium 4.3 3.5 - 5.0 mmol/L [facility] Comment: Please note: ??Patients with WBC >100,000 may have falsely elevated Potassium levels. ??For accurate Potassium quantification in these patients send serum separator tube ([facility] top) for subsequent determinations. ??Contact the Clinical Chemistry Laboratory if there are any questions. Chloride 102 98 - 107 mmol/L [facility] Carbon Dioxide 26 22 - 31 mmol/L [facility] Anion Gap 16(H) 5 - 15 mmol/L [facility] Calcium 10.0 8.5 - 10.5 mg/dL [facility] Protein, Total 7.2 6.1 - 8.0 gm/dL [facility] Albumin 4.4 3.2 - 5.2 gm/dL [facility] Aspartate Aminotransferase 19 0 - 30 unit/L [facility] Alanine Aminotransferase 18 0 - 30 unit/L [facility] Alkaline Phosphatase 67 40 - 104 unit/L [facility] Bilirubin, Total 0.3 0.2 - 1.3 mg/dL [facility] Est Glomerular Filtration Rate 77 >=60 mL/min/1. 73 m?? [facility] Comment: The eGFR was calculated using the CKD-EPI equation. As with all creatinine based estimates of kidney function, eGFR values calculated with the CKD-EPI equation are not accurate in patients with acute kidney failure, extremes of body mass or the acutely ill. http://BoxVentures/DHnkdep http://BoxVentures/DHMCnkf eGFR 89 >=60 mL/min/1. 73 m?? [facility] Comment: The eGFR was calculated using the CKD-EPI equation. As with all creatinine based estimates of kidney function, eGFR values calculated with the CKD-EPI equation are not accurate in patients with acute kidney failure, extremes of body mass or the acutely ill. http://BoxVentures/DHnkdep http://BoxVentures/DHMCnkf Blood specimen (specimen) 12/06/2017 10:45 AM EDT 12/06/2017 1:21 PM EDT Narrative Resulting Agency Comment Spec In Lab Natalie Stephens MD CHEMISTRY ORDERABLES [facility] [place] [address] * Hemoglobin A1c (12/06/2017 10:45 AM EDT) Hemoglobin A1c 5.6 4.3 - 5.6 % [facility] Comment: Reference Range: 4.3 - [...] Mellitus, Diabetes Care 2013; 36: Suppl. 1, S67-00 Estimated Average Glucose 114 mg/dL [facility] Comment: eAG equivalents for HbA1c [...] into estimated average glucose values. ??Diabetes Care 2008:31(8):5748-0191. Blood specimen (specimen) 12/06/2017 10:45 AM EDT 12/06/2017 12:54 PM EDT Narrative Resulting Agency Comment Spec In Lab Natalie Stephens MD CHEMISTRY ORDERABLES Performing Organization Address [facility] Co de Phone Number [facility] [place] [address] * TSH (12/06/2017 10:45 AM EDT) Thyroid Stimulating Hormone 2.41 0.27 - 4.20 mlU/ML [facility] Blood specimen (specimen) 12/06/2017 10:45 AM EDT 12/06/2017 1:21 PM EDT Narrative Resulting Agency Comment Spec In Lab Natalie Stephens MD CHEMISTRY ORDERABLES Performing Organization Address [facility] Co de Phone Number [facility] [place] [address] documented in this encounter Visit Diagnoses Diagnosis Class 1 obesity THERESA on CPAP Obstructive sleep apnea (adult) (pediatric) Depression, unspecified depression type Vitamin D deficiency Unspecified vitamin D deficiency Anxiety disorder, unspecified type Impaired glucose tolerance Impaired glucose tolerance test documented in this encounter Care Teams Gaming Cage Worker Relationship Specialty Start Date End Date Juan Smith MD PCP - General Family Medicine 05/10/16 09/02/21 documented as of this encounter
--- OUTSIDE RECORDS SUMMARY | 2024-04-30 13:12 | XMS_ITS | Encounter Summary ---
Author Organization [facility] [place] [address] Care Team Providers Care Voice Teacher Name Role Phone Juan Smith MD Primary Care Provider [phone] Encounter Details Date Type Department Care Team (Latest Contact Info) Description 02/13/2019 11:20 AM EDT Clinical Support Cardiology at [address] [address] [facility] [place] [address] Nutritional counseling Social History Tobacco Use Types [...] Progress Notes * Derick Acosta, CHARU - 02/13/2019 11:20 AM EDT Date 02/13/2019 [...] a) Food & Symptom Record-keeping. Suggested using [employer] karina to track intakes. NUTRITION EDUCATION: Discussed [...] least four times/week for iodine b) Reduce mjd-fsgocrwy-blwdq foods NUTRITION MONITORING PLAN/EVALUATION/SURVEILLANCE PLAN: See patient when she returns for her cardiology f/u. Discuss questions and concerns. Do nutrient analysis. documented in this encounter Plan of Treatment Upcoming Encounters Date Type Department Care Team (Late st Contact Info) Description 03/16/2025 1:30 PM EDT Office Visit Dermatology at [address] [place] [address] Emiliano Salinas MD [address], [place] [address] documented as of this encounter Visit Diagnoses Diagnosis Nutritional counseling documented in this encounter Care Teams Voice Teacher Relationship Specialty Start Date End Date Juan Smith MD PCP - General Family Medicine 05/10/16 09/02/21 documented as of this encounter
--- OUTSIDE RECORDS SUMMARY | 2024-04-30 13:12 | XMS_ITS | Encounter Summary ---
Author Organization [facility] [place] [address] Care Team Providers Care Molder Offbearer Name Role Phone Juan Smith MD Primary Care Provider [phone] Encounter Details Date Type Department Care Team (Latest Contact Info) Description 04/17/2019 10:00 AM EST Laboratory Appointment Lab [address] [place] [phone] Familial hypercholesterolemia Social History Tobacco Use Types [...] 1:30 PM EDT Office Visit Dermatology at [place] [address] [place] [phone] Emiliano Salinas MD [address], [place] [address] documented as of this encounter Procedures Procedure [...] mg/dL Average Risk: 200-239 mg/dL Higher Risk: >qn=084 mg/dL Triglyceride 157 mg/dL [facility] Comment: Average Risk/Lower Risk: <150 mg/dL Borderline High Risk: 150-199 mg/dL High Risk: 200-499 mg/dL Very High Risk: >tu=809 mg/dL HDL Cholesterol 74 mg/dL [facility] Comment: Males: ?? Higher Risk: <40 mg/dL Females: ?? HIgher Risk: <50 mg/dL LDL Cholesterol 147 mg/dL [facility] Comment: Lowest Risk: <100 mg/dL Lower Risk: 100-129 mg/dL Borderline High Risk: 130-159 mg/dL High Risk: 160-189 mg/dL Very High Risk: >xq=232 mg/dL Cholesterol/HDL Ratio 3.4 ratio [facility] Lipid Interpretation See Note [facility] Comment: Lipid management should be guided by a patient? s ASCVD risk, goals and preferences. ACC/AHA Guidelines recommend high intensity statin if clinical ASCVD or LDL greater than or equal to 190 mg/dL. http://Ixchelsisurl.com/OQL-WCR-Tterumzdr Adults aged 40-75 with LDL 70-189 mg/dL should have their 10 year ASCVD risk estimated with the ACC/AHA ASCVD risk commercial estimator http://tools.acc.org/FBVWZ-Fdgi-Lsbttnibh/ Statin should be discussed if risk greater [...] In Lab Tory Montalvo MD CHEMISTRY ORDERABLES [facility] [place] [address] * CRP, cardiac risk (HS CRP) (04/17/2019 9:21 AM EST) C-Reactive Protein High Sensitivity 1.6 mg/L [facility] Comment: For cardiac risk [...] 2003; 107:363-369 CRP Cardiac Risk Moderate Risk [facility] Blood specimen (specimen) 04/17/2019 9:21 AM EST 04/17/2019 9:40 AM EST Narrative Resulting Agency Comment Spec In Lab Tory Montalvo MD CHEMISTRY ORDERABLES [facility] [place] [address] documented in this encounter Visit Diagnoses Diagnosis Familial hypercholesterolemia Pure hypercholesterolemia documented in this encounter Care Teams Molder Offbearer Relationship Specialty Start Date End Date Juan Smith MD PCP - General Family Medicine 05/10/16 09/02/21 documented as of this encounter
--- OUTSIDE RECORDS SUMMARY | 2024-04-30 13:12 | XMS_ITS | Encounter Summary ---
Author Organization [facility] [place] [address] Care Team Providers Care Optometry Assistant Name Role Phone Juan Smith MD Primary Care Provider [phone] Reason for Referral * Diagnostic Test (Routine) - Closed Specialty Diagnoses / Procedures Referred By Veronica t Referred To Contact Radiology Diagnoses Chest pain, unspecified type SOB (shortness of breath) Procedures NM Pharmacologic Stress Myocardial Perfusion Tory Montalvo MD [facility] [place] [address] [place] [address] Referral ID Status Reason Start Date Expiration Date V isits Requested Visits Authorized [id number] Closed Specialty Service Requested 03/05/2019 05/03/2019 1 1 Reason for Visit * Diagnostic Test (Routine) - Closed Specialty Diagnoses / Procedures Referred By Contac t Referred To Contact Radiology Diagnoses Chest pain, unspecified type SOB (shortness of breath) Procedures NM Pharmacologic Stress Myocardial Perfusion Tory Montalvo MD [facility] [address] [place] [address] Referral ID Status Reason Start Date Expiration Date V isits Requested Visits Authorized [id number] Closed Specialty Service Requested 03/05/2019 05/03/2019 1 1 Encounter Details Date Type Department Care Team (Latest Contact Info) Description 03/12/2019 9:21 AM EDT - 03/12/2019 9:22 AM EDT Hospital Encounter [place] [phone] Tory Montalvo MD Chest pain, unspecified type; [...] azelastine (ASTELIN) 137 mcg (0.1 %) Aerosol, [place] 0 11/06/2017 0 09/03/2022 ASCORBATE CALCIUM (VITAMIN C ORAL) Take by mouth. 09/03/2022 ERGOCALCIFEROL, VITAMIN D2, (VITAMIN D ORAL) Take by mouth. multivitamin (THERAGRAN) tablet Take 1 tablet by mouth daily. 09/03/2022 fexofenadine (EVANGELINA) 180 mg tablet 180 mg, PO, Once daily 08/28/2010 09/03/2022 Mometasone (NASONEX) 50 mcg/Actuation [place] 2 [place](s) each nostril, Nasal, Twice daily 08/28/2010 09/03/2022 documented as of this encounter Plan of Treatment Upcoming Encounters Date Type Department Care Team (Late st Contact Info) Description 03/16/2025 1:30 PM EDT Office Visit Dermatology at [place] [address] [place] [phone] Emiliano Salinas MD [address], [place] [address] documented as of this encounter Procedures Procedure [...] mCi documented in this encounter Care Teams Optometry Assistant Relationship Specialty Start Date End Date Juan Smith MD PCP - General Family Medicine 05/10/16 09/02/21 documented as of this encounter
--- OUTSIDE RECORDS SUMMARY | 2024-04-30 13:12 | XMS_ITS | Encounter Summary ---
Author Organization [facility] Address [facility] [place] [address] Care Team Providers Care Sea Captain Name Role Phone Juan Smith MD Primary Care Provider [phone] Reason for Visit * Reason Comments Laser Treatment Encounter Details Date Type Department Care Team (Late st Contact Info) Description 05/10/2016 1:30 PM EST Office Visit Dermatology at [facility] [address] [place] [address] Vern Salmeron MD [facility] [address] [place] [address] Androgenic alopecia; Telangiectasia; Solar lentigo; Seborrheic keratosis [...] discomfort For further questions and concerns contact: [phone] Nurse message line [phone] [place] (Dr. Salmeron's Appointment [place]) In any case of emergency for weekends and off hours please contact [facility] main number and ask for python developer milk condenser at [phone] documented in this encounter Progress Notes * Vern Salmeron MD - 05/10/2016 1:30 PM EST Images from the original note were not included. Provider: Raymundo Salmeron M.D. ([id number]) Chief Problem: 1. Rosacea & Telangiectasias 2. [...] X 3 Sent to [facility] in [facility]. Follow up: Skin check 3-6 months Cosmetic cost today: $350 processed at discharge from clinic I am documenting this encounter acting as the scribe for and in the presence of Dr. Salmeron,BERTRAM YOUNG, RN I performed the above scribed service and agree with the accuracy of the documentation in this encounter, MD Raymundo Aldridge M.D. Section of Dermatology documented in this encounter Plan of Treatment Upcoming Encounters Date Type Department Care Team (Late st Contact Info) Description 03/16/2025 1:30 PM EDT Office Visit Dermatology at [place] [address] [facility] [place] [address] Emiliano Salinas MD [address] [facility], [place] [address] documented as of this encounter Visit Diagnoses Diagnosis Androgenic alopecia Other alopecia Telangiectasia Other and unspecified capillary diseases Solar lentigo Other dyschromia Seborrheic keratosis Other seborrheic keratosis documented in this encounter Care Teams Sea Captain Relationship Specialty Start Date End Date Juan Smith MD PCP - General Family Medicine 05/10/16 09/02/21 documented as of this encounter
--- OUTSIDE RECORDS SUMMARY | 2024-04-30 13:12 | XMS_ITS | Encounter Summary ---
Author Organization [facility] [place] [address] Care Team Providers Care Anime Artist Name Role Phone Chantell Sharma APRN Primary Care Provider [phone] Reason for Visit * Auth/Cert Specialty Diagnoses / Procedures Referred By Veronica brantley Referred To Contact Diagnoses Hypertrophy of breast Procedures PRO REDUCTION OF LARGE BREAST PRO EXCISE EXCESS SKIN TISSUE, ABDOMEN PRO SUCT SARAH LIPECTOMY, TRUNK 01647 BILAT 12117 ALSO BILAT 91083 Referral ID Status Reason Start Date Expiration Date Visits Re quested Visits Authorized [id number] 1 1 Encounter Details Date Type Department Care Team (Late st Contact Info) Description 06/14/2015 4:01 PM EST Anesthesia Event [place] [address] Sunita Washington MD [facility] [place] [address] Sergey Munoz CRNA [facility] [place] [address] Anesthesia Record Procedure Summary Procedure Name Responsible [...] surgical staff is leaning on NIBP cuff 193 Quick Note TOF check. Sust ained tetanus. 1937 Extubation/LMA Out 1942 an stop data 1950 Recovery or ICU [...] 0000 by Florina Castanon RN Drain/Device Site 01/05/16; Right; abdomen; collapsible closed device; 19 fr beulah 06/14/15 0000 by Florina Castanon, RN Incision 06/14/15; breast; 02/05/22 (LDA cleanup utility RA#[id number]); 1715 (LDA cleanup utility RA#[id number]) 06/14/15 0000 by Florina Castanon, JYOTI 02/05/22 1715 by Sixto Massey Incision 06/14/15; breast; 02/05/22 (LDA cleanup utility RA#[id number]); 1715 (LDA cleanup utility RA#[id number]) 06/14/15 0000 by Florina Castanon, JYOTI 02/05/22 1715 by Sixto Massey Incision 06/14/15; abdomen; 02/05/22 (LDA cleanup utility RA#[id number]); 1715 (LDA cleanup utility RA#[id number]) 06/14/15 0000 by Florina Castanon, RN 02/05/22 1715 by Sixto Massey (RETIRED) Peripheral IV Line - Single Lumen 06/14/15; 1245; metacarpal vein left (top of hand); fwjp-oyx-ajpbil catheter system; 18 gauge; BSmithRN; intradermal injection; [...] Washington MD - 06/15/2015 12:23 PM EST [facility] Department of Anesthesiology Post-procedure Note Patient: Yessenia Luong Procedure Summary Date Anesthesia Start Anesthesia Stop Room / Location 06/14/15 1601 1952 [facility] OR [facility] MA[facility] OR Procedure Diagnosis Surgeon Responsible [...] Vaginal prolapse repair 04/11/2007 Dr. Castaneda, at [facility] ??? section 1979, 1981 Complciated by infection ??? 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 Tonsillectomy ??? [...] consented to blood products. Plan discussed with DINING ROOM ATTENDANT. PAT Staff Note documented in this encounter Plan of Treatment Upcoming Encounters Date Type Department Care Team (Late st Contact Info) Description 03/16/2025 1:30 PM EDT Office Visit Dermatology at [place] [address] [place] [address] Emiliano Salinas MD [address], [place] [address] documented as of this encounter Visit Diagnoses [...] on Sat06/14/15 at 1712, Until Sat06/14/15 at 195, Anesthesia Intra-op, Routine Given 06/14/2015 7:28 PM [...] at 1610, Until Sat06/14/15 at 195, Anesthesia Intra-op Given 06/14/2015 4:12 PM EST 160 mg propofol (DIPRIVAN) infusion CONTINUOUS PRN, Starting on Sat06/14/15 at 1642, Until Sat06/14/15 at 195, Anesthesia Intra-op, Routine Rate/Dose Change 06/14/2015 5:30 PM EST 50 mcg/kg/min 25.6 mL/hr New Bag 06/14/2015 4:42 PM EST 30 mcg/kg/min 15.4 mL/hr rocuronium (ZEMURON) multi-dose injection PRN, Starting on Sat06/14/15 at 1610, Until Sat06/14/15 at 1956, Anesthesia Intra-op, Routine Given 06/14/2015 6:15 PM EST 20 mg Given 06/14/2015 5:31 PM EST 30 mg Given 06/14/2015 4:13 PM EST 50 mg documented in this encounter Care Teams Anime Artist Relationship Specialty Start Date End Date Chantell Sharma APRN PCP - General 07/09/13 05/09/16 documented as of this encounter
--- OUTSIDE RECORDS SUMMARY | 2024-04-30 13:12 | XMS_ITS | Encounter Summary ---
Author Organization [facility] Address [facility] [place] [address] Care Team Providers Care Obiee Architect Name Role Phone Juan Smith MD Primary Care Provider [phone] Encounter Details Date Type Department Care Team (Late st Contact Info) Description 03/16/2019 Telephone Dermatology at [facility] [address] [place] [phone] Vern Salmeron MD [facility] [address] [place] [address] Social History Tobacco Use Types Packs/Day Years [...] puffy and swollen S/P laser treatment on 03/12/19. She states it has been slowly improving [...] on 03/12. Patient can be reached at [phone] documented in this encounter Plan of Treatment Upcoming Encounters Date Type Department Care Team (Late st Contact Info) Description 03/16/2025 1:30 PM EDT Office Visit Dermatology at [place] [address] [place] [address] Emiliano Salinas MD [address] [facility], [place] [address] documented as of this encounter Visit Diagnoses Not on filedocumented in this encounter Care Teams Obiee Architect Relationship Specialty Start Date End Date Juan Smith MD PCP - General Family Medicine 05/10/16 09/02/21 documented as of this encounter
--- OUTSIDE RECORDS SUMMARY | 2024-04-30 13:12 | XMS_ITS | Encounter Summary ---
Author Organization [facility] Address [facility] [place] [address] Care Team Providers Care Coin Box Collector Name Role Phone Juan Smith MD Primary Care Provider [phone] Encounter Details Date Type Department Care Team (Latest Contact Info) Description 12/30/2017 3:30 PM EDT Office Visit Weight and Wellness at [address] [phone] Natalie Stephens MD [facility] [place] [address] Class 1 obesity due to excess calories [...] MD - 12/30/2017 3:30 PM EDT [facility] Visit Patient Name: Yessenia Luong Date of : 1950 Age: [address] Juan Smith MD Thank you for referring Yessenia Luong to the [facility] for consultation regarding obesity. CHIEF COMPLAINT: Follow-up for Obesity INTERVAL HISTORY / PROGRESS TOWARD GOALS: [x] I reviewed past / interim records including notes and labs. Last seen by me on 12/06/17, and by our dietitian and health learning coach earlier today. She is participating in [...] [facility] for 3 weeks starting next week. She reports that she has been tracking her food intake through the [employer] karina, and found that she eats between [...] Date AST 19 12/06/2017 ALT 18 12/06/2017 [facility] Followup Responses 12/06/2017 [facility] - Readiness [...] in the Medical Management Pathway at the [facility]. She is gaining insights into food choices, [...] 20 minutes of which were spent in edhb-zm-neaz discussion/counseling re obesity, nutrition and activity as well as obesity related co-morbidities documented in this encounter Plan of Treatment Upcoming Encounters Date Type Department Care Team (Late st Contact Info) Description 03/16/2025 1:30 PM EDT Office Visit Dermatology at [place] [address] [place] [phone] Emiliano Salinas MD [address], [place] [address] documented as of this encounter Visit Diagnoses Diagnosis Class 1 obesity due to excess calories with serious comorbidity and body mass index (BMI) of 30.0 to 30.9 in adult Hyperlipidemia, unspecified hyperlipidemia type documented in this encounter Care Teams Coin Box Collector Relationship Specialty Start Date End Date Juan Smith MD PCP - General Family Medicine 05/10/16 09/02/21 documented as of this encounter
--- OUTSIDE RECORDS SUMMARY | 2024-04-30 13:12 | XMS_ITS | Encounter Summary ---
Author Organization [facility] Address [facility] [address] [place] [address] Care Team Providers Care Window Clerk Name Role Phone Chantell Sharma APRN Primary Care Provider [phone] Encounter Details Date Type Department Care Team (Late st Contact Info) Description 02/07/2016 Telephone Dermatology at [facility] [address] [place] [phone] Vern Salmeron MD [facility] [address] [place] [address] Social History Tobacco Use Types Packs/Day Years [...] RN - 02/07/2016 3:10 PM EDT This technical writer and editor returned patient's call. She requested an estimate of future laser treatments. Per her verbal instructions I left a message. The estimated charge would be anywhere between $350 - $600 . Depending on the laser and number of pulses. Mariana M. Brown RN documented in this encounter Plan of Treatment Upcoming Encounters Date Type Department Care Team (Late st Contact Info) Description 03/16/2025 1:30 PM EDT Office Visit Dermatology at [place] [address] [facility] [place] [address] Emiliano Salinas MD [address], [place]AKAR[place] [address] documented as of this encounter Visit Diagnoses Not on filedocumented in this encounter Care Teams Window Clerk Relationship Specialty Start Date End Date Chantell Sharma APRN PCP - General 07/09/13 05/09/16 documented as of this encounter
--- OUTSIDE RECORDS SUMMARY | 2024-04-30 13:12 | XMS_ITS | Encounter Summary ---
Author Organization [facility] [place] [address] Care Team Providers Care Career Education Teacher Name Role Phone Juan Smith MD Primary Care Provider [phone] Encounter Details Date Type Department Care Team (Latest Contact Info) Description 02/13/2019 10:20 AM EDT Laboratory Appointment Lab [address] [phone] Familial hypercholesterolemia Social History Tobacco Use Types [...] 1:30 PM EDT Office Visit Dermatology at [place] [address] [facility] [place] [address] Emiliano Salinas MD [address], [place] [address] documented as of this encounter Procedures Procedure Name Priority Date/Time Associated Diagnosis Comments [facility] LIPOPROTEIN A Routine 02/13/2019 9:49 AM EDT Familial hypercholesterolemia HC VENIPUNCTURE Routine 02/13/2019 9:49 AM EDT Familial hypercholesterolemia LIPID PANEL (REFLEX DIRECT LDL) Routine 02/13/2019 9:49 AM EDT Familial hypercholesterolemia COMPREHENSIVE METABOLIC PANEL Routine 02/13/2019 9:49 AM EDT Familial hypercholesterolemia documented in this encounter Results * Lipid Panel (02/13/2019 9:49 AM EDT) Pathologist [facility] Cholesterol, Total 324 mg/dL [facility] Comment: Lower Risk: <200 mg/dL Average Risk: 200-239 mg/dL Higher Risk: >ih=171 mg/dL Triglyceride 183 mg/dL [facility] Comment: Average Risk/Lower Risk: <150 mg/dL Borderline High Risk: 150-199 mg/dL High Risk: 200-499 mg/dL Very High Risk: >tg=633 mg/dL HDL Cholesterol 68 mg/dL [facility] Comment: Males: ?? Higher Risk: <40 mg/dL Females: ?? HIgher Risk: <50 mg/dL LDL Cholesterol 219 mg/dL [facility] Comment: Lowest Risk: <100 mg/dL Lower Risk: 100-129 mg/dL Borderline High Risk: 130-159 mg/dL High Risk: 160-189 mg/dL Very High Risk: >vq=562 mg/dL Cholesterol/HDL Ratio 4.8 ratio [facility] Lipid Interpretation See Note [facility] Comment: Lipid management should be guided by a patient? s ASCVD risk, goals and preferences. ACC/AHA Guidelines recommend high intensity statin if clinical ASCVD or LDL greater than or equal to 190 mg/dL. http://tinyurl.com/LOS-YVY-Rbysofooc Adults aged 40-75 with LDL 70-189 mg/dL should have their 10 year ASCVD risk estimated with the ACC/AHA ASCVD risk surgical pathologist http://tools.acc.org/CNASY-Gdvc-Tozeohjld/ Statin should be discussed if risk greater [...] Montalvo MD CHEMISTRY ORDERABLES Performing Organization Address [facility] Co de Phone Number [facility] [place] [address] * Lipoprotein A (02/13/2019 9:49 AM EDT) Lipoprotein (a) 6 <=30 mg/dL [facility] Comment: Test Performed by: [facility] [place] [address] Level Vial Grinder: Kyle Michel M.D. Ph.D.; CLIA# [id number] Blood specimen (specimen) 02/13/2019 9:49 AM EDT 02/13/2019 3:06 PM EDT Narrative Resulting Agency Comment Spec In Lab Tory Montalvo MD LAB SEND OUT ORDERAB LES Performing Organization Address City/[facility]/ZIP Co de Phone Number [facility] [place] [address] * (ABNORMAL) Comprehensive metabolic panel (non-fasting) (02/13/2019 9:49 AM EDT) Glucose 108 65 - 199 mg/dL [facility] Comment:Diabetes: >=200 mg/d L plus symptoms Blood Urea Nitrogen 19(H) 8 - 18 mg/dL [facility] Creatinine 0.79 0.70 - 1.20 mg/dL [facility] Sodium 142 135 - 145 mmol/L [facility] Potassium 3.6 3.5 - 5.0 mmol/L [facility] Comment: Please note: ??Patients with WBC >100,000 may have falsely elevated Potassium levels. ??For accurate Potassium quantification in these patients send serum separator tube (gold top) for subsequent determinations. ??Contact the Clinical Chemistry Laboratory if there are any questions. Chloride 101 98 - 107 mmol/L [facility] Carbon Dioxide 28 22 - 31 mmol/L [facility] Anion Gap 13 5 - 15 mmol/L [facility] Calcium 9.8 8.5 - 10.5 mg/dL [facility] Protein, Total 7.5 6.1 - 8.0 gm/dL [facility] Albumin 4.8 3.2 - 5.2 gm/dL [facility] Aspartate Aminotransferase 22 0 - 30 unit/L [facility] Alanine Aminotransferase 24 0 - 30 unit/L [facility] Alkaline Phosphatase 64 35 - 105 unit/L [facility] Bilirubin, Total 0.4 0.2 - 1.3 mg/dL [facility] Est Glomerular Filtration Rate 76 >=60 mL/min/1. 73 m?? [facility] Comment: The eGFR was calculated using the CKD-EPI equation. As with all creatinine based estimates of kidney function, eGFR values calculated with the CKD-EPI equation are not accurate in patients with acute kidney failure, extremes of body mass or the acutely ill. http://Digby/[facility] – OKLAHOMA CITYnkf eGFR 88 >=60 mL/min/1. 73 m?? [facility] Comment: The eGFR was calculated using the CKD-EPI equation. As with all creatinine based estimates of kidney function, eGFR values calculated with the CKD-EPI equation are not accurate in patients with acute kidney failure, extremes of body mass or the acutely ill. http://Digby/DHnkf Blood specimen (specimen) 02/13/2019 9:49 AM EDT 02/13/2019 9:59 AM EDT Narrative Resulting Agency Comment Spec In Lab Tory Montalvo MD CHEMISTRY ORDERABLES Performing Organization Address City/[facility]/ZIP Co de Phone Number [facility] [place] [address] * TSH (02/13/2019 9:49 AM EDT) Thyroid Stimulating Hormone 2.34 0.27 - 4.20 mcIU/mL [facility] Blood specimen (specimen) 02/13/2019 9:49 AM EDT 02/13/2019 9:59 AM EDT Narrative Resulting Agency Comment Spec In Lab Tory Montalvo MD CHEMISTRY ORDERABLES Performing Organization Address [facility] Co de Phone Number [facility] [place] [address] documented in this encounter Visit Diagnoses Diagnosis Familial hypercholesterolemia Pure hypercholesterolemia documented in this encounter Care Teams Career Education Teacher Relationship Specialty Start Date End Date Juan Smith MD PCP - General Family Medicine 05/10/16 09/02/21 documented as of this encounter
--- OUTSIDE RECORDS SUMMARY | 2024-04-30 13:12 | XMS_ITS | Encounter Summary ---
Author Organization [facility] [place] [address] Care Team Providers Care Research Instructor Name Role Phone Juan Smith MD Primary Care Provider [phone] Reason for Visit * Reason Onset Date Comments Medication Refill 12/27/2017 Encounter Details Date Type Department Care Team (Late st Contact Info) Description 12/27/2017 Refill Weight and Wellness at [address] [phone] Natalie Stephens MD [facility] [place] [address] Obesity, unspecified classification, unspecified obesity type, unspecified [...] accepted: Orders * Telephone Encounter - Saad Anand, RN - 12/27/2017 7:56 AM EDT Pt left message on my office phone, requesting refill of buPROPion prescription. Thank you, Hugo Anand RN documented in this encounter Plan of Treatment Upcoming Encounters Date Type Department Care Team (Late st Contact Info) Description 03/16/2025 1:30 PM EDT Office Visit Dermatology at [place] [address] [place] [address] Emiliano Salinas MD [address], [place] [address] documented as of this encounter Visit Diagnoses Diagnosis Obesity, unspecified classification, unspecified obesity type, unspecified whether serious comorbidity present documented in this encounter Care Teams Research Instructor Relationship Specialty Start Date End Date Juan Smith MD PCP - General Family Medicine 05/10/16 09/02/21 documented as of this encounter
--- OUTSIDE RECORDS SUMMARY | 2024-04-30 13:12 | XMS_ITS | Encounter Summary ---
Author Organization [facility] [place] [address] Care Team Providers Care Flexible Machining System Machinist Name Role Phone Chantell Sharma APRN Primary Care Provider [phone] Reason for Visit * Reason Comments Follow Up Surgery s/p bbr and abdomino plasty/liposuction 06/14/15 Encounter Details Date Type Department Care Team (Latest Contact Info) Description 07/29/2015 2:15 PM EST Office [place] [address] Carlee Marvin MD [facility] [place] [address] Status post bilateral breast reduction; Status post [...] 1:30 PM EDT Office Visit Dermatology at [place] [address] [facility] [place] [address] Emiliano Salinas MD [address], [place] [address] documented as of this encounter Visit Diagnoses Diagnosis Status post bilateral breast reduction Other postprocedural status Status post abdominoplasty Other postprocedural status documented in this encounter Care Teams Flexible Machining System Machinist Relationship Specialty Start Date End Date Chantell Sharma APRN PCP - General 07/09/13 05/09/16 documented as of this encounter
--- OUTSIDE RECORDS SUMMARY | 2024-04-30 13:12 | XMS_ITS | Encounter Summary ---
Author Organization [facility] [place] [address] Care Team Providers Care Pulmonary Function Technician Name Role Phone Juan Smith MD Primary Care Provider [phone] Encounter Details Date Type Department Care Team (Late st Contact Info) Description 12/15/2019 Telephone Cardiology at [address] [address] Ester Urbano, RN Social History Tobacco Use [...] 1:30 PM EDT Office Visit Dermatology at [place] [address] [facility] [place] [address] Emiliano Salinas MD [address], BAKARI [place] [address] documented as of this encounter Visit Diagnoses Not on filedocumented in this encounter Care Teams Pulmonary Function Technician Relationship Specialty Start Date End Date Juan Smith MD PCP - General Family Medicine 05/10/16 09/02/21 documented as of this encounter
--- OUTSIDE RECORDS SUMMARY | 2024-04-30 13:12 | XMS_ITS | Encounter Summary ---
Author Organization [facility] Address [facility] [place] [address] Care Team Providers Care Standards Engineer Name Role Phone Juan Smith MD Primary Care Provider [phone] Encounter Details Date Type Department Care Team (Latest Contact Info) Description 12/13/2017 3:11 PM EDT - 12/13/2017 11:59 PM EDT Hospital [place] [phone] Natalie Stephens MD [facility] [place] [address] Class 1 obesity Discharge Disposition: Home Social [...] azelastine (ASTELIN) 137 mcg (0.1 %) Aerosol, [place] 0 11/06/2017 09/03/2022 ASCORBATE CALCIUM (VITAMIN C ORAL) Take by mouth. ERGOCALCIFEROL, VITAMIN D2, (VITAMIN D ORAL) Take by mouth. 09/03 multivitamin (THERAGRAN) tablet Take 1 tablet by mouth daily. 09/03/2022 fexofenadine (EVANGELINA) 180 mg tablet 180 mg, PO, Once daily 08/28/2010 09/03/2022 Mometasone (NASONEX) 50 mcg/Actuation [place] 2 [place](s) each nostril, Nasal, Twice daily 08/28/2010 09/03/2022 documented as of this encounter Plan of Treatment Upcoming Encounters Date Type Department Care Team (Late st Contact Info) Description 03/16/2025 1:30 PM EDT Office Visit Dermatology at [place] [address] [facility] [place] [address] Emiliano Salinas MD [address], [place] [address] documented as of this encounter Procedures Procedure Name Priority Date/Time Associated Diagnosis Comments BIOREPOSITORY REQUEST Routine 12/13/2017 2:00 PM EDT Class 1 obesity documented in this encounter Results * Biorepository Request (12/13/2017 2:00 PM EDT) Biorepository Hold Sample in lab [facility] Stool specimen (specimen) 12/13/2017 2:00 PM EDT 12/24/2017 1:18 PM EDT Narrative Resulting Agency Comment Spec In Lab Natalie Stephens MD MOLECULAR ORDERABLES [facility] [place] [address] documented in this encounter Visit Diagnoses Diagnosis Class 1 obesity documented in this encounter Care Teams Standards Engineer Relationship Specialty Start Date End Date Juan Smith MD PCP - General Family Medicine 05/10/16 09/02/21 documented as of this encounter
--- OUTSIDE RECORDS SUMMARY | 2024-04-30 13:12 | XMS_ITS | Encounter Summary ---
Author Organization [facility] Address [facility] [place] [address] Care Team Providers Care Rice Drier Operator Name Role Phone Chantell Sharma APRN Primary Care Provider [phone] Reason for Visit * Reason Comments Follow Up Surgery BBR and abdominoplas ty 06/14/15 Encounter Details Date Type Department Care Team (Latest Contact Info) Description 02/06/2016 8:45 AM EDT Office [place] [address] [facility] [place] [address] Macromastia; Status post abdominoplasty Social History Tobacco [...] Summer 2016 Time allotted: 60 mins CPT :76603 x 2 Follow up: 1 week with Coretta Guadarrama, am acting as scribe for Dr Marvin. All work documented was performed by Dr Marvin. ???I performed the above scribed service and agree with the accuracy of the note?? Carlee Marvin MD documented in this encounter Plan of Treatment Upcoming Encounters Date Type Department Care Team (Late st Contact Info) Description 03/16/2025 1:30 PM EDT Office Visit Dermatology at [place] [address] [facility] [place] [address] Emiliano Salinas MD [address], [place] [address] documented as of this encounter Visit Diagnoses Diagnosis Macromastia Hypertrophy of breast Status post abdominoplasty Other postprocedural status documented in this encounter Care Teams Rice Drier Operator Relationship Specialty Start Date End Date Chantell Sharma APRN PCP - General 07/09/13 05/09/16 documented as of this encounter
--- OUTSIDE RECORDS SUMMARY | 2024-04-30 13:12 | XMS_ITS | Encounter Summary ---
Author Organization [facility] [place] [address] Care Team Providers Care Drum Stock Clerk Name Role Phone Juan Smith MD Primary Care Provider [phone] Encounter Details Date Type Department Care Team (Latest Contact Info) Description 12/15/2019 Orders Only Cardiology at [address] [phone] Tory Montalvo MD Familial hypercholesterolemia Social History [...] 1:30 PM EDT Office Visit Dermatology at [place] [address] [place] [address] Emiliano Salinas MD [address], BAKARI A DERMATOLOGY [place], [place] [address] documented as of this encounter Visit Diagnoses Diagnosis Familial hypercholesterolemia Pure hypercholesterolemia documented in this encounter Care Teams Drum Stock Clerk Relationship Specialty Start Date End Date Juan Smith MD PCP - General Family Medicine 05/10/16 09/02/21 documented as of this encounter
--- OUTSIDE RECORDS SUMMARY | 2024-04-30 13:12 | XMS_ITS | Encounter Summary ---
Author Organization [facility] Address [facility] [place] [address] Care Team Providers Care Process Developer Name Role Phone Juan Smith MD Primary Care Provider [phone] Reason for Visit * Reason Comments Follow-up Encounter Details Date Type Department Care Team (Late st Contact Info) Description 03/12/2019 3:00 PM EDT Office Visit [facility]ermatology at [facility] [address] [place] [phone] Vern Salmeron MD [facility] [address] [place] [address] Rosacea; Lentigines; Holt angiomas; Seborrheic keratoses; Seborrheic [...] 03/12/2019 3:00 PM EDT Yessenia Luong 03/12/2019 [id number] Raymundo Salmeron MD ([id number]) Chief Problem: 1. Pigmented Lesion and Skin [...] azelastine (ASTELIN) 137 mcg (0.1 %) Aerosol, [place] 0 ??? PROVENTIL HFA 90 mcg/actuation HFA [...] Once daily ??? Mometasone (NASONEX) 50 mcg/Actuation [place] 2 [place](s) each nostril, Nasal, Twice daily No current [...] Combined decision to start treating rosacea with Klaron nightly. 3. Combined decision was made to [...] EDT Office Visit Dermatology at [place] [address] [place] [address] Emiliano Salinas MD [address] [facility], [place] [address] documented as of this encounter Visit Diagnoses Diagnosis Rosacea Lentigines Other dyschromia Holt angiomas Nevus, non-neoplastic Seborrheic keratoses Other seborrheic keratosis Seborrheic keratoses, inflamed Inflamed seborrheic keratosis Hair thinning Alopecia, unspecified documented in this encounter Care Teams Process Developer Relationship Specialty Start Date End Date Juan Smith MD PCP - General Family Medicine 05/10/16 09/02/21 documented as of this encounter
--- OUTSIDE RECORDS SUMMARY | 2024-04-30 13:12 | XMS_ITS | Encounter Summary ---
Author Organization [facility] [place] [address] Care Team Providers Care Dot Compliance Manager Name Role Phone Chantell Sharma APRN Primary Care Provider [phone] Reason for Visit * Reason Comments Follow Up Surgery s/p bbr and abdomino plasty/liposuction dos 06/14/14, drain removal Encounter Details Date Type Department Care Team (Latest Contact Info) Description 06/23/2015 9:00 AM EST Clinical Support [place] [address] Mery Dimas APRN [facility] [place] [address] Surgery follow-up Social History Tobacco Use Types [...] clinic with any questions or concerns @ [phone] Saturday through Saturday from 8-5. On weekends, nights, or holidays, call the Main Hospital number @ [phone] and ask for the Plastic Surgeon apron operator. Signs of Infection : A temperature over [...] symptoms please call our nurse's line at [phone] M - F 8 - 5 documented in this encounter Progress Notes * Mery Dimas APRN - 06/23/2015 9:10 AM EST Images from the original note were not included. Plastic Surgery Post Op Note Reason for visit: F/U status post procedure Date of surgery: 06/14/15 Procedure(s): BBR (QUIROZ) with axillary liposuction and abdominoplasty with rectus plication Complications: None reported Pain: 5/10 HPI: Pt reports that she continues to [...] of itching Benadryl PRN F/U 1 week I, Coretta Vazquez, am acting as scribe for Mery Dimas. All work documented was performed by Mery Dimas. ???I performed the above scribed service and agree with the accuracy of the note?? MERY DIMAS APRN documented in this encounter Plan of Treatment Upcoming Encounters Date Type Department Care Team (Late st Contact Info) Description 03/16/2025 1:30 PM EDT Office Visit Dermatology at [address] [place] [address] Emiliano Salinas MD [address] [facility], [place] [address] documented as of this encounter Visit Diagnoses Diagnosis Surgery follow-up Follow-up examination, following unspecified surgery documented in this encounter Care Teams Dot Compliance Manager Relationship Specialty Start Date End Date Chantell Sharma APRN PCP - General 07/09/13 05/09/16 documented as of this encounter
--- OUTSIDE RECORDS SUMMARY | 2024-04-30 13:12 | XMS_ITS | Encounter Summary ---
Author Organization [facility] Address [facility] [place] [address] Care Team Providers Care Supervisor Sign Shop Name Role Phone Juan Smith MD Primary Care Provider [phone] Encounter Details Date Type Department Care Team (Late st Contact Info) Description 06/14/2017 Telephone Dermatology at [facility] [address] [place] [phone] Vern Salmeron MD [facility] [address] LORRIE [place] [address] Social History Tobacco Use Types Packs/Day Years [...] 1:30 PM EDT Office Visit Dermatology at [place] [facility] [address] [facility] [place] [address] Emiliano Salinas MD [address], BAKARI [place] [address] documented as of this encounter Visit Diagnoses Not on filedocumented in this encounter Care Teams Supervisor Sign Shop Relationship Specialty Start Date End Date Juan Smith MD PCP - General Family Medicine 05/10/16 09/02/21 documented as of this encounter
--- OUTSIDE RECORDS SUMMARY | 2024-04-30 13:12 | XMS_ITS | Encounter Summary ---
Author Organization [place] [address] Care Team Providers Care Forest Products Gatherer Name Role Phone Juan Smith MD Primary Care Provider [phone] Encounter Details Date Type Department Care Team (Late st Contact Info) Description 10/08/2019 Orders Only Cardiology at [address] [phone] Tory Montalvo MD Familial hypercholesterolemia; Coronary artery disease, angina presence unspecified, unspecified vessel or lesion type, unspecified whether [place] or transplanted heart Social History Tobacco Use [...] 1:30 PM EDT Office Visit Dermatology at [place] [address] [facility] [place] [phone] Emiliano Salinas MD [address], [place] [address] documented as of this encounter Visit Diagnoses Diagnosis Familial hypercholesterolemia Pure hypercholesterolemia Coronary artery disease, angina presence unspecified, unspecified vessel or lesion type, unspecified whether [place] or transplanted heart documented in this encounter Care Teams Forest Products Gatherer Relationship Specialty Start Date End Date Juan Smith MD PCP - General Family Medicine 05/10/16 09/02/21 documented as of this encounter
--- OUTSIDE RECORDS SUMMARY | 2024-04-30 13:12 | XMS_ITS | Encounter Summary ---
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 Pt encouraged to keep her 06/22/19 appt to establish care with the local reporting analyst as she had been seeing the previous reporting analyst. She will Keep Dr Montalvo for her lipid management. Pt verbalized good understanding of the current POC. documented in this encounter Plan of Treatment Upcoming Encounters Date Type Department Care Team (Late st Contact Info) Description 03/16/2025 1:30 PM EDT Office Visit Dermatology at [place] [address] [facility] [place] [address] Emiliano Salinas MD [address], [place] [address] documented as of this encounter Visit Diagnoses Not on filedocumented in this encounter Care Teams Business Continuity Planner Relationship Specialty Start Date End Date Juan Smith MD PCP - General Family Medicine 05/10/16 09/02/21 documented as of this encounter
--- OUTSIDE RECORDS SUMMARY | 2024-04-30 13:12 | XMS_ITS | Encounter Summary ---
Author Organization [facility] [place] [address] Care Team Providers Care Body Art Technician Name Role Phone Juan Smith MD Primary Care Provider [phone] Encounter Details Date Type Department Care Team (Latest Contact Info) Description 03/12/2019 9:25 AM EDT - 03/12/2019 11:59 PM EDT Hospital Encounter Non-Invasive [place] [phone] Tory Montalvo MD Chest pain, unspecified type; [...] azelastine (ASTELIN) 137 mcg (0.1 %) Aerosol, [place] 0 11/06/2017 0 09/03/2022 ASCORBATE CALCIUM (VITAMIN C ORAL) Take by mouth. 09/03/2022 ERGOCALCIFEROL, VITAMIN D2, (VITAMIN D ORAL) Take by mouth. multivitamin (THERAGRAN) tablet Take 1 tablet by mouth daily. 09/03/2022 fexofenadine (EVANGELINA) 180 mg tablet 180 mg, PO, Once daily 08/28/2010 09/03/2022 Mometasone (NASONEX) 50 mcg/Actuation [place] 2 [place](s) each nostril, Nasal, Twice daily 08/28/2010 09/03/2022 documented as of this encounter Plan of Treatment Upcoming Encounters Date Type Department Care Team (Late st Contact Info) Description 03/16/2025 1:30 PM EDT Office Visit Dermatology at [place] [address] [facility] [address] [place] [address] Emiliano Salinas MD [address], [place] [address] documented as of this encounter Procedures Procedure [...] breath documented in this encounter Care Teams Body Art Technician Relationship Specialty Start Date End Date Juan Smith MD PCP - General Family Medicine 05/10/16 09/02/21 documented as of this encounter
--- OUTSIDE RECORDS SUMMARY | 2024-04-30 13:12 | XMS_ITS | Encounter Summary ---
Author Organization [facility] Address [facility] Pieter [place] [address] Care Team Providers Care Press Tender Short Goods Name Role Phone Juan Smith MD Primary Care Provider [phone] Encounter Details Date Type Department Care Team (Latest Contact Info) Description 04/17/2019 11:20 AM EST Clinical Support Cardiology at [address] [address] Derick Acosta, [facility] [place] [address] Nutritional counseling Social History Tobacco Use Types [...] 77.1 kg (169 lb 14.4 oz) 019 10:49 AM EST Height 162.6 cm [...] iodine and omega 3 FAs b) Reduce sbh-onchppdz-nflrx foods NUTRITION MONITORING PLAN/EVALUATION/SURVEILLANCE PLAN: I will e-mail patient recipes for: veg soup, corn/seafood chowder, greene burger, or any others [email or web address] Patient to try the 3-day menus and [...] 1:30 PM EDT Office Visit Dermatology at [place] [address] [facility] [place] [address] Emiliano Salinas MD [address], [place] [address] documented as of this encounter Visit Diagnoses Diagnosis Nutritional counseling documented in this encounter Care Teams Press Tender Short Goods Relationship Specialty Start Date End Date Juan Smith MD PCP - General Family Medicine 05/10/16 09/02/21 documented as of this encounter
--- OUTSIDE RECORDS SUMMARY | 2024-04-30 13:12 | XMS_ITS | Encounter Summary ---
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 She was in 2002 and has had a significant other for many years. Boyfriend (Deacon Peterson) lives in [place]. She has 5 children (2 biologic and [...] azelastine (ASTELIN) 137 mcg (0.1 %) Aerosol, [place] 0 ??? PROVENTIL HFA 90 mcg/actuation HFA [...] Once daily ??? Mometasone (NASONEX) 50 mcg/Actuation [place] 2 [place](s) each nostril, Nasal, Twice daily No current [...] which 20 minutes were spent in counseling TORY CHAMBERS MD 04/17/2019 CC: Juan Smith MD documented in this encounter Plan of Treatment Upcoming Encounters Date Type Department Care Team (Late st Contact Info) Description 03/16/2025 1:30 PM EDT Office Visit Dermatology at [address] [place] [address] Emiliano Salinas MD [address] [facility], [place] [address] documented as of this encounter Visit Diagnoses Diagnosis Familial hypercholesterolemia Pure hypercholesterolemia documented in this encounter Care Teams Circuit Judge Relationship Specialty Start Date End Date Juan Smith MD PCP - General Family Medicine 05/10/16 09/02/21 documented as of this encounter
--- OUTSIDE RECORDS SUMMARY | 2024-04-30 13:12 | XMS_ITS | Encounter Summary ---
Author Organization [facility] [place] [address] Care Team Providers Care Electrician Outside Name Role Phone Juan Smith MD Primary Care Provider [phone] Reason for Visit * Reason Onset Date Comments Questions 12/29/2019 possible drug re action/side effects Encounter Details Date Type Department Care Team (Late st Contact Info) Description 12/29/2019 Telephone Cardiology at [address] [address] Rere Stock, RN Questions (possible drug reaction/side [...] Telephone Encounter - Rere Stock RN - 12/29/2019 5:50 PM EDT Pt [...] 1:30 PM EDT Office Visit Dermatology at [place] [address] [facility] [place] [address] Emiliano Salinas MD [address], [place] [address] documented as of this encounter Visit Diagnoses Not on filedocumented in this encounter Care Teams Electrician Outside Relationship Specialty Start Date End Date Juan Smith MD PCP - General Family Medicine 05/10/16 09/02/21 documented as of this encounter
--- OUTSIDE RECORDS SUMMARY | 2024-04-30 13:13 | XMS_ITS | Encounter Summary ---
Author Organization [facility] [place] [address] Care Team Providers Care Manufactured Buildings Supervisor Name Role Phone Chantell Sharma APRN Primary Care Provider [phone] Reason for Visit * Reason Onset Date Comments Results 08/05/2013 Encounter Details Date Type Department Care Team (Late st Contact Info) Description 08/05/2013 [place] [phone] Yashira Abdullahi MD [facility] [place] [address] Results Social History Tobacco Use Types Packs/Day [...] 1:30 PM EDT Office Visit Dermatology at [place] [address] [facility] [place] [phone] Emiliano Salinas MD [address], [place] [address] documented as of this encounter Visit Diagnoses Not on filedocumented in this encounter Care Teams Manufactured Buildings Supervisor Relationship Specialty Start Date End Date Chantell Sharma APRN PCP - General 07/09/13 05/09/16 documented as of this encounter
--- OUTSIDE RECORDS SUMMARY | 2024-04-30 13:13 | XMS_ITS | Encounter Summary ---
Author Organization [facility] [place] [address] Care Team Providers Care Bunch Maker Name Role Phone Chantell Sharma APRN Primary Care Provider [phone] Reason for Visit * Reason Comments Skin Check Encounter Details Date Type Department Care Team (Late st Contact Info) Description 08/07/2013 10:15 AM EST Office Visit Dermatology at [address] [address] Emiliano Salinas MD [address] [facility] A DERMATOLOGY [place], [place] [phone] Solar lentigo (Primary Dx); Female pattern alopecia [...] p.r.n. refills. This was sent to her [facility] in [facility]. She knows this will be an [id number]-du-lwlwuh expense. 3. Xerosis. a. I recommended that the patient use CeraVe cream on a regular b.i.d. basis. b. Return to clinic here in one year for repeat check; reminder in one year. COPY: Stephanie Muhammad Note: Half an hour was spent with [...] 1:30 PM EDT Office Visit Dermatology at [place] [address] [facility] [place] [address] Emiliano Salinas MD [address], BAKARI [place] [address] documented as of this encounter Visit Diagnoses Diagnosis Solar lentigo- Primary Other dyschromia Female pattern alopecia Alopecia, unspecified documented in this encounter Care Teams Bunch Maker Relationship Specialty Start Date End Date Chantell Sharma APRN PCP - General 07/09/13 05/09/16 documented as of this encounter
--- OUTSIDE RECORDS SUMMARY | 2024-04-30 13:13 | XMS_ITS | Encounter Summary ---
Author Organization [facility] Address [facility] [place] [address] Care Team Providers Care Student Records Coordinator Name Role Phone Gareth Cunningham MD Primary Care Provider + Reason for Visit * Reason Comments Establish Care incont s/p repair Encounter Details Date Type Department Care Team (Late st Contact Info) Description 11/22/2011 9:15 AM EDT Office Visit Obstetrics [place] [address] Juan Alberto Harrell MD [facility] [address] OBSTET[place]ICS [place] [address] Urinary incontinence (Primary Dx) Discharge Disposition: Home [...] Female Pelvic Medicine and Reconstructive Surgery @ [facility] Patient Name: Yessenia Luong Patient [...] smear: S/p hysterectomy Last mammogram: Annually in [facility] Colonoscopy: Up to date Bone density: Up to date Past Medical History Diagnosis Date ??? 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 Rosacea 04/24/2011 ??? THERESA (obstructive sleep apnea) 11/21/2011 Past Surgical History Procedure Date ??? Vaginal prolapse repair 04/11/2007 Dr. Castaneda, at [facility] ??? section 1979, 1981 ??? Miguel and bso 1989 Allergy to progesterone ??? Tonsillectomy ??? Appendectomy [...] MAGNESIUM ORAL) ??? Mometasone (NASONEX) 50 mcg/Actuation [place] 2 [place](s) each nostril, Nasal, Twice daily ??? 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 Family History Problem Relation Age of [...] test (empty supine): negative External Genitalia: Vulva, [place]'s and [place] glands normal, urethra without tenderness [...] 1:30 PM EDT Office Visit Dermatology at [place] [address] [place] [phone] Emiliano Salinas MD [address], [place] [address] documented as of this encounter Procedures Procedure Name Priority Date/Time Associated Diagnosis Comments BLADDER SCANNER Routine 11/22/2011 Urinary incontinence POCT URINE DIPSTICK Routine 11/22/2011 Urinary incontinence documented in this encounter Results * Bladder Scanner (11/22/2011) Scan 6 Juan Alberto Harrell MD URO PROC W/O RFL ORD ERABLES * POCT urine dipstick (11/22/2011) Pathologist [facility] POC Sp [place] 1.01 1.002 - 1.030 POC pH, UA [...] incontinence documented in this encounter Care Teams Student Records Coordinator Relationship Specialty Start Date End Date Gareth Cunningham MD [address] [place] [address] PCP - General 04/24/11 07/08/13 documented as of this encounter
--- OUTSIDE RECORDS SUMMARY | 2024-04-30 13:13 | XMS_ITS | Encounter Summary ---
Author Organization [facility] [address] Care Team Providers Care Housecalls Nurse Name Role Phone Gareth Gramajo MD Primary Care Provider + Reason for Visit * Reason Onset Date Comments Follow-up 12/10/2011 Encounter Details Date Type Department Care Team (Late st Contact Info) Description 12/10/2011 Telephone Obstetrics [place] [address] Lien Patel, RN Follow-up Social History Tobacco [...] 1:30 PM EDT Office Visit Dermatology at [address] [place] [address] Emiliano Salinas MD [address], BAKAR[place] [address] documented as of this encounter Visit Diagnoses Not on filedocumented in this encounter Care Teams Housecalls Nurse Relationship Specialty Start Date End Date Gareth Gramajo MD [address] [place] [address] PCP - General 04/24/11 07/08/13 documented as of this encounter
--- OUTSIDE RECORDS SUMMARY | 2024-04-30 13:13 | XMS_ITS | Encounter Summary ---
Author Organization [facility] [place] [address] Care Team Providers Care Caustic Mixer Name Role Phone Franca Charles MD Primary Care Provider [phone] Encounter Details Date Type Department Care Team (Late st Contact Info) Description 07/17/2010 8:30 AM EST Follow-[place] [address] Gelacio Blevins MD [facility] [place] [address] Social History Tobacco Use Types Packs/Day Years [...] 1:30 PM EDT Office Visit Dermatology at [place] [address] [place] [phone] Emiliano Salinas MD [address], [place] [address] documented as of this encounter Visit Diagnoses Not on filedocumented in this encounter Care Teams Caustic Mixer Relationship Specialty Start Date End Date Franca Charles MD [address] [place] [address] PCP - General 05/02/10 01/30/11 documented as of this encounter
--- OUTSIDE RECORDS SUMMARY | 2024-04-30 13:13 | XMS_ITS | Encounter Summary ---
Author Organization [facility] [place] [address] Care Team Providers Care Bond Runner Name Role Phone Franca Charles MD Primary Care Provider [phone] Reason for Visit * Reason Onset Date Comments Other 12/28/2010 sick returning [place] Encounter Details Date Type Department Care Team (Late st Contact Info) Description 12/28/2010 [place] [address] Danika Chin RN Other (sick returning traveler) [...] of cipro for diarrhea after trip to [place]. See note on 12/25/2010. She no longer has diarrhea, now reporting constipation and stomach cramping. Remains afebrile; describes extreme fatigue. Contacted [facility] lab for results of stool testing; giardia [...] 1:30 PM EDT Office Visit Dermatology at [place] [address] [facility] [address] [facility] [address] [place] [address] Emiliano Salinas MD [address], [place]AR[place] [address] documented as of this encounter Visit Diagnoses Not on filedocumented in this encounter Care Teams Bond Runner Relationship Specialty Start Date End Date Franca Charles MD [address] [place] [address] PCP - General 05/02/10 01/30/11 documented as of this encounter
--- OUTSIDE RECORDS SUMMARY | 2024-04-30 13:13 | XMS_ITS | Encounter Summary ---
Author Organization [facility] Address [facility] [place] [address] Care Team Providers Care Wire Mesh Gate Assembler Name Role Phone Franca Charles MD Primary Care Provider [phone] Reason for Visit * Reason Onset Date Comments Anxiety 09/25/2010 Encounter Details Date Type Department Care Team (Late st Contact Info) Description 09/25/2010 Telephone Sleep Medicine [place] [id number] Liam Lee MD [facility] [place] [address] Anxiety Social History Tobacco Use Types Packs/Day [...] reviewed her compliance card data download from [facility] for dates of 08/10/10 to 09/20/10, which [...] amitriptyline 25-50mg qhs ?? Patient to take Gloyr at HS instead of AM ?? Patient [...] 1:30 PM EDT Office Visit Dermatology at [address] [place] [address] Emiliano Salinas MD [address], MANIND[place] [address] documented as of this encounter Visit Diagnoses Not on filedocumented in this encounter Care Teams Wire Mesh Gate Assembler Relationship Specialty Start Date End Date Franca Charles MD [address] [place] [address] PCP - General 05/02/10 01/30/11 documented as of this encounter
--- OUTSIDE RECORDS SUMMARY | 2024-04-30 13:13 | XMS_ITS | Encounter Summary ---
Author Organization [facility] Address [facility] [place] [address] Care Team Providers Care Market Maker Name Role Phone Gareth Gramajo MD Primary Care Provider + Encounter Details Date Type Department Care Team (Late Contact Info) Description 12/19/2011 Telephone Obstetrics [place] [phone] Tenzin Harrell MD [facility] [address] OBSTETRICS [place] [address] Social History Tobacco Use Types Packs/Day Years [...] Department Care Team (Late Contact Info) Description 03/16/2025 1:30 PM EDT Office Visit Dermatology at [place] [address] [address] [place] [address] Emiliano Salinas MD [address], [place] [address] documented as of this encounter Visit Diagnoses Diagnosis Urinary incontinence, mixed- Primary Mixed incontinence urge and stress (male)(female) documented in this encounter Care Teams Market Maker Relationship Specialty Start Date End Date Gareth Gramajo MD [address] [place] [address] PCP - General 04/24/11 07/08/13 documented as of this encounter
--- OUTSIDE RECORDS SUMMARY | 2024-04-30 13:13 | XMS_ITS | Encounter Summary ---
Author Organization [facility] Address [facility] [place] [address] Care Team Providers Care Client Service Representative Name Role Phone Gareth Cunningham MD Primary Care Provider + Reason for Visit * Reason Comments Obstructive Sleep Apnea Encounter Details Date Type Department Care Team (Late st Contact Info) Description 07/12/2011 8:35 AM EST Office [place] [address] Sunita Mcknight MD [facility] [place] [address] THERESA (obstructive sleep apnea) (Primary Dx) Social [...] 07/30/2011 10:35 AM EST I evaluated this Ms. Yessenia Luong with Dr. Mcknight and performed albright aspects of the history and examination. I actively participated in the formulation of the management strategy. I have reviewed 's note and agree with the assessment and recommendations. LEISA LEWIS MD * UrszulaSunita chester - 07/12/2011 9:11 AM EST Date of [...] shifts in position Aerophagia: None Daytime Symptoms: Century: not done Upon Awakening: unrefreshed, feels groggy. [...] Disp: , Rfl: ;Mometasone (NASONEX) 50 mcg/Actuation [place], 2 [place](s) each nostril, Nasal, Twice daily, Disp: , [...] drowsy dont drive, if drowsy while driving pull out operator and take a nap. 4. Dental device [...] 1:30 PM EDT Office Visit Dermatology at [place] [address] [facility] [address] [place] [address] Emiliano Salinas MD [address], [place] [address] documented as of this encounter Visit Diagnoses Diagnosis THERESA (obstructive sleep apnea)- Primary Obstructive sleep apnea (adult) (pediatric) documented in this encounter Care Teams Client Service Representative Relationship Specialty Start Date End Date Gareth Cunningham MD [address] [place] [address] PCP - General 04/24/11 07/08/13 documented as of this encounter
--- OUTSIDE RECORDS SUMMARY | 2024-04-30 13:13 | XMS_ITS | Encounter Summary ---
Author Organization [facility] Address [facility] [place] [address] Care Team Providers Care Control Specialist Name Role Phone Franca Charles MD Primary Care Provider [phone] Encounter Details Date Type Department Care Team (Late st Contact Info) Description 12/25/2010 Orders Only [place] [address] Mariana Hernandez MD [facility] [place] [address] History of foreign travel (Primary Dx) Social [...] 60 y.o. female. History of travel to [place] on 11/27/2010 for 3 weeks while traveling [...] Dr. Hernandez; Pt agrees to go to [facility] for stool studies to include giardia, crypto, O&P, and stool cultures. Will e-fax another script for Cipro 500 mg BID for three days to [email or web address] in [facility]. Pt. States understanding she needs [...] 1:30 PM EDT Office Visit Dermatology at [place] [address] [place] [address] Emiliano Salinas MD [address] [facility], [place] [address] documented as of this encounter Visit Diagnoses Diagnosis History of foreign travel- Primary Other specified conditions influencing health status documented in this encounter Care Teams Control Specialist Relationship Specialty Start Date End Date Franca Charles MD [address] [place] [address] PCP - General 05/02/10 01/30/11 documented as of this encounter
--- OUTSIDE RECORDS SUMMARY | 2024-04-30 13:13 | XMS_ITS | Encounter Summary ---
Author Organization [facility] Address [facility] [place] [address] Care Team Providers Care Nail Tech Name Role Phone Franca Charles MD Primary Care Provider [phone] Encounter Details Date Type Department Care Team (Late st Contact Info) Description 08/28/2010 11:00 AM EDT [place] [address] Vern Salmeron MD [facility] [address] [place] [address] Discharge Disposition: Home Social History Tobacco Use [...] 1:30 PM EDT Office Visit Dermatology at [place] [address] [facility] [place] [phone] Emiliano Salinsa MD [address], [place] [address] documented as of this encounter Visit Diagnoses Not on filedocumented in this encounter Care Teams Nail Tech Relationship Specialty Start Date End Date Franca Charles MD [address] [place] [address] PCP - General 05/02/10 01/30/11 documented as of this encounter
--- OUTSIDE RECORDS SUMMARY | 2024-04-30 13:13 | XMS_ITS | Encounter Summary ---
Author Organization [facility] [place] [address] Care Team Providers Care Senior Lead Developer Name Role Phone Franca Charles MD Primary Care Provider [phone] Encounter Details Date Type Department Care Team (Late st Contact Info) Description 07/16/2010 8:00 PM EST Procedure visit [place] [address] Gelacio Blevins MD [facility] [address] Social History Tobacco Use Types Packs/Day Years [...] 1:30 PM EDT Office Visit Dermatology at [place] [address] [place] [address] Emiliano Salinas MD [address], [place] [address] documented as of this encounter Visit Diagnoses Not on filedocumented in this encounter Care Teams Senior Lead Developer Relationship Specialty Start Date End Date Franca Charles MD [address] [place] [address] PCP - General 05/02/10 01/30/11 documented as of this encounter
--- OUTSIDE RECORDS SUMMARY | 2024-04-30 13:13 | XMS_ITS | Encounter Summary ---
Author Organization [facility] [place] [address] Care Team Providers Care Compressor Operator Adjuster Name Role Phone Unavailable Primary Care Provider Unavailabl e Encounter Details Date Type Department Care Team (Late st Contact Info) Description 04/19/2010 3:15 PM EST Office Visit Dermatology [address] [place] [address] [address] [place] [address] Emiliano Salinas MD [address] [facility] [place] [address] Social History Tobacco Use Types Packs/Day Years [...] 1:30 PM EDT Office Visit Dermatology at [place] [address] [place] [address] Emiliano Salinas MD [address] [facility] [place] [address] documented as of this encounter Visit Diagnoses Not on filedocumented in this encounter
--- OUTSIDE RECORDS SUMMARY | 2024-04-30 13:13 | XMS_ITS | Encounter Summary ---
Author Organization [facility] [place] [address] Care Team Providers Care Deployment Manager Name Role Phone Gareth Gramajo MD Primary Care Provider + Reason for Visit * Reason Onset Date Comments Follow-up 01/25/2012 Encounter Details Date Type Department Care Team (Late st Contact Info) Description 01/25/2012 Telephone Obstetrics [place] [address] Lien Patel, RN Follow-up Social [...] 1:30 PM EDT Office Visit Dermatology at [place] [address] [place] [address] Emiliano Salinas MD [address], [place] [address] documented as of this encounter Visit Diagnoses Not on filedocumented in this encounter Care Teams Deployment Manager Relationship Specialty Start Date End Date Gareth Gramajo MD [address] [place] [address] PCP - General 04/24/11 07/08/13 documented as of this encounter
--- OUTSIDE RECORDS SUMMARY | 2024-04-30 13:13 | XMS_ITS | Encounter Summary ---
Author Organization [facility] [place] [address] Care Team Providers Care Unix Systems Administrator Name Role Phone Gareth Gramajo MD Primary Care Provider + Encounter Details Date Type Department Care Team (Late st Contact Info) Description 01/25/2012 Orders Only [place] [address] Satya James MD [address] [place] [address] Bilateral knee pain (Primary Dx) Social History [...] 1:30 PM EDT Office Visit Dermatology at [place] [address] [place] [phone] Emiliano Salinas MD [address], [place] [address] documented as of this encounter Visit Diagnoses Diagnosis Bilateral knee pain- Primary Pain in joint, lower leg documented in this encounter Care Teams Unix Systems Administrator Relationship Specialty Start Date End Date Gareth Gramajo MD [address] [place] [address] PCP - General 04/24/11 07/08/13 documented as of this encounter
--- OUTSIDE RECORDS SUMMARY | 2024-04-30 13:13 | XMS_ITS | Encounter Summary ---
Author Organization [facility] Address [facility] [place] [address] Care Team Providers Care Fruit Coordinator Name Role Phone Chantell Mims APRN Primary Care Provider [phone] Reason for Visit * Auth/Cert Specialty Diagnoses / Procedures Referred By Veronica brantley Referred To Contact Diagnoses Hypertrophy of breast Procedures PRO REDUCTION OF LARGE BREAST PRO EXCISE EXCESS SKIN TISSUE, ABDOMEN PRO SUCT SARAH LIPECTOMY, TRUNK 17755 BILAT 22731 ALSO BILAT 76882 Referral ID Status Reason Start Date Expiration Date Visits Re quested Visits Authorized [id number] 1 1 Encounter Details Date Type Department Care Team (Late st Contact Info) Description 06/14/2015 1:56 PM EST - 06/14/2015 6:24 PM EST [place] [address] Carlee Montenegro MD [facility] [place] [address] REDUCTION MAMMOPLASTY, ADAM (WRVU 16.03) Social History [...] 1 tablet Refills: 0 NASONEX 50 mcg/actuation [place] 2 [place](s) each nostril, Nasal, Twice daily Generic drug: [...] APRN MANINDER [address] / [facility] [address] Scheduled Appointments: The following appointments have been scheduled on your behalf: No future appointments. Outpatient Services/Studies: Referral to Home Health - at DISCHARGE Scheduling Instructions: DOCUMENTATION FOR VNA SERVICES (INCLUDING THOSE PATIENTS WITH MEDICARE COVERAGE REQUIRING HOME VNA SERVICES AND/OR HOSPICE SERVICES) PATIENT'S LOCATION: Yessenia Luong [address] [place] [phone] (home) Cell: Telephone Information: Mobile Crane Operator's Name: self In discussion with the attending physician, it is certified that this patient is under their care and that they, or a Nurse Practitioner,Clinical Nurse specialist or Physician Medicaid Biller who is working directly with them, had [...] for managing ADL's. HOME HEALTH CARE AGENCY: [facility] PHONE: [phone] FAX: [phone] Start of care: 06/16/2015 FOR MEDICARE ONLY: [...] obtained from this patient's PCP: CHANTELL MIMS, CLAY MACHINE OPERATOR MANINDER [address] [place] [address] All A agencies which cover the area of patient's residence have been reviewed, either verbally ida writing, and patient/family have chosen the home health care agency noted A list of Home Health Agencies/DMEs which serve the geographic area which the patient resides or the geographic area requested by the patient/outbound telemarketing representative was made available.Full Disclosure Statement provided, as appropriate. Patient requests referral to [facility]. Referral matched w agency/vendor and info provided via MyEdu program Question Response Notes Agency name and contact information [facility] Patient location post discharge home What [...] good night sleep. 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 With any surgery there is some discomfort or pain. We will prescribe pain medication. Take as prescribed and only as needed. OK to take Tylenol, do not exceed 3 grams per day. OK to add Ibuprofen 48 hours after surgery. ?? We recommend taking an cnnd-hry-Kmmlelg stool softener, such as Colace (docusate) or [...] scheduling, please contact our administrative offices at [phone] ?? For clinical questions, please call our nurses at [phone] ?? Both offices are open Saturday thru Saturday 8a - 5p. With emergencies after hours, call the hospital oil recovery operator at [phone] and ask for the Plastic Surgery Resident stoneworking sander. Instructions for Abdominal Surgery During the first [...] from each drain. Call the clinic at [phone] and schedule an appointment with the nurses [...] Saturday 8 am to 5 pm Call [phone] On weekends or after hours: Call [phone] and ask the oil recovery operator to page the Plastic Surgery Resident stoneworking sander. Prescription Line: Call the line at [phone] from 8am-4pm Saturday through Saturday. Narcotic renewals [...] good night sleep. 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 With any surgery there is some discomfort or pain. We will prescribe pain medication. Take as prescribed and only as needed. OK to take Tylenol, do not exceed 3 grams per day. OK to add Ibuprofen 48 hours after surgery. ?? We recommend taking an aptf-vfu-Afngyzj stool softener, such as Colace (docusate) or [...] scheduling, please contact our administrative offices at [phone] ?? For clinical questions, please call our nurses at [phone] ?? Both offices are open Saturday thru Saturday 8a - 5p. With emergencies after hours, call the hospital oil recovery operator at [phone] and ask for the Plastic Surgery Resident stoneworking sander. Instructions for Abdominal Surgery During the first [...] from each drain. Call the clinic at [phone] and schedule an appointment with the nurses [...] Saturday 8 am to 5 pm Call [phone] On weekends or after hours: Call [phone] and ask the oil recovery operator to page the Plastic Surgery Resident stoneworking sander. Prescription Line: Call the line at [phone] from 8am-4pm Saturday through Saturday. Narcotic renewals [...] mouth nightly. 12/06/2017 fluticasone (FLONASE) 50 mcg/actuation [place], Suspension 1 spray daily. 06/23/19 16 BUDESONIDE/FORMOTEROL [...] ORAL) 08/28/2010 12/06/2017 Mometasone (NASONEX) 50 mcg/Actuation [place] 2 [place](s) each nostril, Nasal, Twice daily 08/28/2010 09/03/2022 documented as of this encounter Progress Notes * Jyoti Ingram RN - 06/15/2015 4:43 PM EST I assumed care for this [atoient from [id number]. Patient discharged to home. IV removed, site [...] or the geographic area requested by the patient/outbound telemarketing representative was made available.Full Disclosure Statementprovided, as appropriate. Patient requests referral to [facility]. Referral matched w agency/vendor and info provided via MyEdu program * Wilman Jacobo MD - 06/14/2015 11:55 PM EST Post-Operative Progress Note Patient: Yessenia Luong s/p Surgery: 06/14/2015 [id number] Procedure(s) (LRB): REDUCTION MAMMOPLASTY, ADAM (Bilateral) ABDOMINOPLASTY [...] apparent untoward event. Patient location: [facility] Surgical Floor Post-op Consciousness awake, [...] Montenegro MD - 06/14/2015 8:03 PM EST [facility] Operative Note Patient Name: Yessenia Luong : [id number] MR#: [id number] Case Date: 06/14/2015 Surgeon: Surgeon(s) and Role: [...] 15-blade and the umbilical stalk developed with [place] scissor dissection. A 0-Vicryl suture was placed [...] Operative Note Patient Name: Yessenia Luong : [id number] MR#: [id number] Case Date: 06/14/2015 Surgeon: Surgeon(s) and Role: [...] 1:30 PM EDT Office Visit Dermatology at [place] [address] [place] [address] Emiliano Salinas MD [address], MANINDER [place] [address] documented as of this encounter Procedures Procedure [...] intervals supplied above were not validated at [facility]. Results from pediatric patients should be interpreted [...] the following links into your internet browser. [email or web address] Blood specimen (specimen) 06/15/2015 10:36 AM EST 06/15/2015 10:49 AM EST Narrative Resulting Agency Comment Spec In Lab Carlee Montenegro MD CHEMISTRY ORDERABLES [facility] * Surgical Pathology Report (06/14/2015 5:25 PM EST) Final Diagnosis [id number] ? Location: [facility]; [facility]; B The signing pathologist has (i) examined the relevant preparation(s) for the specimen(s) and (ii) rendered or confirmed the diagnosis(es). . ?Surgical Pathology DIAGNOSIS A - Right breast, reduction mammoplasty: ??Benign breast tissue. B - Left breast, reductin mammoplasty: ??Benign breast tissue. 06/17/15 CCB 06/17/15 Verified by: ? Black DO, Shereen CSundar ?Pathologist ?(Electronic Signature) The attending pathologist whose [...] (R3) ?? yal 06/17/2015 10:21 AM EST [facility] BREAST STRUCTURE / Unknown 06/14/2015 5:25 PM EST 06/14/2015 5:25 PM EST BREAST STRUCTURE / Unknown 06/14/2015 5:25 PM EST 06/14/2015 5:25 PM EST Carlee Montenegro MD PATHOLOGY/CYTOLOGY O ELLA Performing Organization Address City/[facility]/ZIP Co de Phone Number [facility] [place] [address] * Specimen to Pathology (surgical or derm) (06/14/2015 5:25 PM EST) AP Specimen 06/14/2015 5:25 PM EST 06/14/2015 5:25 PM EST Narrative [facility] - 06/14/2015 5:25 PM EST Specimen requisition ordered. ??Separate Pathology report to follow Carlee Montenegro MD PATHOLOGY/CYTOLOGY O RDERABLES Performing Organization Address City/[facility]/ZIP Co de Phone Number [facility] * Specimen to Pathology (surgical or derm) (06/14/2015 5:25 PM EST) AP Specimen 06/14/2015 5:25 PM EST 06/14/2015 5:25 PM EST Narrative [facility] - 06/14/2015 5:25 PM EST Specimen requisition [...] Routine 0916 (Given - Provid er: Beth Peterson, RN - Comment: ordered for 09) niacin (NIASPAN ER) ER tablet 1,000 mg [...] Clement RN) 0332 (Given - Provider: Rick Marshall RN)0942 (Given - Provider: Beth Peterson, JYOTI)1535 (Given - Provider: Beth Peterson RN) BUpivacaine-EPINEPHrine 0.25 %-1:200,000 injection (CANCELED) ONCE PRN, [...] Until Sat06/14/15 at 2159, Intra-Operative (Intra-Procedure), Routine 1807 (Given - Provider: Carlee Montenegro MD) documented in this encounter Care Teams Fruit Coordinator Relationship Specialty Start Date End Date Chantell Mims APRN PCP - General 07/09/13 05/09/16 documented as of this encounter
--- OUTSIDE RECORDS SUMMARY | 2024-04-30 13:13 | XMS_ITS | Encounter Summary ---
Author Organization [facility] [place] [address] Care Team Providers Care Metal Pickling Equipment Operator Name Role Phone Gareth Gramajo MD Primary Care Provider + Encounter Details Date Type Department Care Team (Late st Contact Info) Description 01/24/2012 Orders Only Ob[place] [phone] Lien Patel RN Urge incontinence (Primary Dx) [...] 1:30 PM EDT Office Visit Dermatology at [place] [address] [place] [phone] Emiliano Salinas MD [address], MANINDER A DERMATOLOGY [place], [place] [address] documented as of this encounter Visit Diagnoses Diagnosis Urge incontinence- Primary documented in this encounter Care Teams Metal Pickling Equipment Operator Relationship Specialty Start Date End Date Gareth Gramajo MD [address] [place] [address] PCP - General 04/24/11 07/08/13 documented as of this encounter
--- OUTSIDE RECORDS SUMMARY | 2024-04-30 13:13 | XMS_ITS | Encounter Summary ---
Author Organization [facility] Address [facility] [place] [address] Care Team Providers Care Car Salter Name Role Phone Franca Charles MD Primary Care Provider [phone] Encounter Details Date Type Department Care Team (Late st Contact Info) Description 06/29/2010 12:40 PM EST Office Visit Sleep Medicine [place] [id number] Liam Lee MD [facility] [place] [address] Social History Tobacco Use Types Packs/Day Years [...] 1:30 PM EDT Office Visit Dermatology at [place] [address] [place] [address] Emiliano Salinas MD [address], [place] [address] documented as of this encounter Visit Diagnoses Not on filedocumented in this encounter Care Teams Car Salter Relationship Specialty Start Date End Date Franca Charles MD [address] [place] [address] PCP - General 05/02/10 01/30/11 documented as of this encounter
--- OUTSIDE RECORDS SUMMARY | 2024-04-30 13:13 | XMS_ITS | Encounter Summary ---
Author Organization [facility] Address [facility] [place] [address] Care Team Providers Care Fence Repairman Name Role Phone Chantell Sharma APRN Primary Care Provider [phone]- [phone] Reason for Visit * Reason Comments Allergic Rhinitis Encounter Details Date Type Department Care Team (Late st Contact Info) Description 07/09/2013 1:45 PM EST [place] [phone] Yashira Abdullahi MD [facility] [address] ALLERGY [place] [address] Allergic rhinoconjunctivitis, bilateral (Primary Dx); Mild intermittent [...] encasings, pillow and mattress ( ie From Epuramat; [employer]'s, [employer], [employer], [employer] [place], [employer]) 2. Wash bedding in hot water (no [...] weekly at Dr. Jere Estevez's office in [facility]. She receives two shots per week. [...] surgical history were reviewed and updated in eD. Allergies: Bee pollen; Morphine; Sulfa (sulfonamide antibiotics); [...] MAGNESIUM ORAL) ??? Mometasone (NASONEX) 50 mcg/Actuation [place] 2 [place](s) each nostril, Nasal, Twice daily ??? albuterol (VENTOLIN HFA) 90 mcg/Actuation inhaler 1-2 puffs, Inh, Q4-6H PRN Past Medical and Social History: Past Medical History Diagnosis Date ??? 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 Rosacea 04/24/2011 ??? THERESA (obstructive sleep apnea) 11/21/2011 ??? Urinary incontinence, urge 01/08/2012 Past Surgical History Procedure Date ??? Vaginal prolapse repair 04/11/2007 Dr. Castaneda, at [facility] ??? section 1979, 1981 ??? Miguel and [...] 1:30 PM EDT Office Visit Dermatology at [place] [address] [facility] [place] [phone] Emiliano Salinas MD [address], [place] [address] documented as of this encounter Procedures Procedure [...] ng/mL CERNER MILLENNIUM Comment: Test Performed by: [place] [address] Machine Bander And Cellophaner Helper: Bruce Abdalla III, M.D. Blood specimen (specimen) 07/09/2013 3:40 PM EST 07/10/2013 9:44 AM EST Narrative Resulting Agency Comment Spec In Lab Yashira Abdullahi MD CHEMISTRY ORDERABLES Performing Organization Address City/[facility] Co de Phone Number [facility] * Venom, Yellow Jacket IgE (07/09/2013 3:40 PM EST) Yellow Jacket IgE 22.8 kU/L CE RNER MILLENNIUM Comment: Class 4 (Strongly Positive 17.5-49.9) Test Performed by: [place] [address] Machine Bander And Cellophaner Helper: Bruce Abdalla III, M.D. Blood specimen (specimen) 07/09/2013 3:40 PM EST 07/10/2013 8:40 AM EST Narrative Resulting Agency Comment Spec In Lab Yashira Abdullahi MD IMMUNOLOGY ORDERABLE S Performing Organization Address City/[facility] Co de Phone Number [facility] * Venom, Hornet, Yellow-Faced IgE (07/09/2013 3:40 PM EST) [place] Hornet Venom IgE 6.10 kU/L CERNER MILLENNIUM Comment: Class 3 (Positive 3.50-17.4) Test Performed by: [place] [address] Machine Bander And Cellophaner Helper: Bruce Abdalla III, M.D. Blood specimen (specimen) 07/09/2013 3:40 PM EST 07/10/2013 8:40 AM EST Narrative Resulting Agency Comment Spec In Lab Yashira Abdullahi MD IMMUNOLOGY ORDERABLE S Performing Organization Address City/[facility] Co de Phone Number CERNER MILLENNIUM * Venom, White Faced Hornet IgE (07/09/2013 3:40 PM EST) Wht Hornet Venom IgE 11.0 kU/L CERNER MILLENNIUM Comment: Class 3 (Positive 3.50-17.4) Test Performed by: [place] [address] Machine Bander And Cellophaner Helper: Bruce Abdalla III, M.D. Blood specimen (specimen) 07/09/2013 3:40 PM EST 07/10/2013 8:40 AM EST Narrative Resulting Agency Comment Spec In Lab Yashira Abdullahi MD IMMUNOLOGY ORDERABLE S Performing Organization Address [facility] de Phone Number CERNER MILLENNIUM * Venom, Wasp IgE (07/09/2013 3:40 PM EST) Wasp IgE 22.5 kU/L CERNER MILLENNIUM Comment: Class 4 (Strongly Positive 17.5-49.9) Test Performed by: [place] [address] Machine Bander And Cellophaner Helper: Bruce Abdalla III, M.D. Blood specimen (specimen) 07/09/2013 3:40 PM EST 07/10/2013 8:40 AM EST Narrative Resulting Agency Comment Spec In Lab Yashira Abdullahi MD IMMUNOLOGY ORDERABLE S Performing Organization Address City/[facility] Co de Phone Number [facility] MILLENNIUM * Venom, Honeybee IgE (07/09/2013 3:40 PM EST) Honeybee Venom IgE 1.31 kU/L CERNER MILLENNIUM Comment: Class 2 (Positive 0.70-3.49) Test Performed by: [place] [address] Machine Bander And Cellophaner Helper: Bruce Abdalla III, M.D. Blood specimen (specimen) 07/09/2013 3:40 PM EST 07/10/2013 8:40 AM EST Narrative Resulting Agency Comment Spec In Lab Yashira Abdullahi MD IMMUNOLOGY ORDERABLE S [facility] documented in this encounter Visit Diagnoses Diagnosis Allergic rhinoconjunctivitis, bilateral- Primary Mild intermittent asthma, uncomplicated Unspecified asthma Environmental allergies Allergic rhinitis, cause unspecified Allergy to insect stings Allergy, unspecified not elsewhere classified Chronic urticaria Other specified urticaria documented in this encounter Care Teams Fence Repairman Relationship Specialty Start Date End Date Chantell Sharma APRN PCP - General 07/09/13 05/09/16 documented as of this encounter
--- OUTSIDE RECORDS SUMMARY | 2024-04-30 13:13 | XMS_ITS | Encounter Summary ---
Author Organization [facility] [place] [address] Care Team Providers Care Saw Runner Name Role Phone Chantell Sharma APRN Primary Care Provider [phone] Reason for Visit * Reason Comments Other Encounter Details Date Type Department Care Team (Late st Contact Info) Description 08/07/2013 [place] [address] Lea Abdullahi MD [facility] [place] [address] Social History Tobacco Use Types Packs/Day Years [...] you get info on this patient from [place] yet in the mail? documented in this encounter Plan of Treatment Upcoming Encounters Date Type Department Care Team (Late st Contact Info) Description 03/16/2025 1:30 PM EDT Office Visit Dermatology at [place] [address] [facility] [place] [address] Emiliano Salinas MD [address] [facility], [place] [address] documented as of this encounter Visit Diagnoses Not on filedocumented in this encounter Care Teams Saw Runner Relationship Specialty Start Date End Date Chantell Sharma APRN PCP - General 07/09/13 05/09/16 documented as of this encounter
--- OUTSIDE RECORDS SUMMARY | 2024-04-30 13:13 | XMS_ITS | Encounter Summary ---
Author Organization [facility] [place] [address] Care Team Providers Care Product Info Specialist Name Role Phone Franca Charles MD Primary Care Provider [phone] Reason for Visit * Reason Comments Travel Consult Encounter Details Date Type Department Care Team (Late st Contact Info) Description 10/17/2010 2:00 PM EDT Office [place] [phone] Danika Chin RN Travel foreign (Primary Dx); [...] countries (list from first to last): [place], [facility], [facility], [facility], [employer] Departure date: 11/27/2010 Length of trip 3 [...] other STD's, TB and Health Insurance cove [employer]. Discussed food and water precautions and patient [...] or get this done through their primary acute care nurse practitioner. Patient advised to call travel clinic if [...] to take if exposure occurs [facility]. Meningococcal Yellow Fever Pneumococcal 09/15/2004 PPD Skin test ID ATTENDING I agree with this plan to prepare this patient for travel to [place]. documented in this encounter Plan of Treatment Upcoming Encounters Date Type Department Care Team (Late st Contact Info) Description 03/16/2025 1:30 PM EDT Office Visit Dermatology at [place] [address] [place] [address] Emiliano Salinas MD [address], [place] [address] documented as of this encounter Visit Diagnoses Diagnosis Travel foreign- Primary Other specified conditions influencing health status Foreign travel Other specified conditions influencing health status documented in this encounter Care Teams Product Info Specialist Relationship Specialty Start Date End Date Franca Charles MD [address] [place] [address] PCP - General 05/02/10 01/30/11 documented as of this encounter
--- OUTSIDE RECORDS SUMMARY | 2024-04-30 13:13 | XMS_ITS | Encounter Summary ---
Author Organization [facility] Address [facility] [place] [place] [address] Care Team Providers Care Drawing Tender Name Role Phone Franca Charles MD Primary Care Provider [phone] Encounter Details Date Type Department Care Team (Late st Contact Info) Description 08/28/2010 10:30 AM EDT Office [place] [address] Vern Salmeron MD [facility] [place] [address] Discharge Disposition: Home Social History Tobacco Use [...] PM EDT Office Visit Dermatology at [place] [address] [facility] [place] [phone] Emiliano Salinas MD [address], [place] [address] documented as of this encounter Visit Diagnoses Not on filedocumented in this encounter Care Teams Drawing Tender Relationship Specialty Start Date End Date Franca Charles MD [address] [place] [address] PCP - General 05/02/10 01/30/11 documented as of this encounter
--- OUTSIDE RECORDS SUMMARY | 2024-04-30 13:13 | XMS_ITS | Encounter Summary ---
Author Organization [facility] [place] [address] Care Team Providers Care Glove Operator Name Role Phone Franca Cahrles MD Primary Care Provider [phone] Reason for Visit * Reason Onset Date Comments Other 01/01/2011 travel follow-up Encounter Details Date Type Department Care Team (Late st Contact Info) Description 01/01/2011 Telephone [place] [address] Danika Chin RN Other (travel follow-up) Social [...] fatigue, sleeping since back from trip to [place]; headache, lower stomach pain with constipation, bad breath; denies fever or other symptoms Did not seek care from PCP as instructed during phone conversation of 12/28/2010. Calling today to request another course of Cipro. A&P Yessenia traveled to [place] 11/27/2010 for three weeks, returning with diarrhea, [...] 1:30 PM EDT Office Visit Dermatology at [place] [address] [facility] [place] [address] Emiliano Salinas MD [address], [place] [address] documented as of this encounter Visit Diagnoses Not on filedocumented in this encounter Care Teams Glove Operator Relationship Specialty Start Date End Date Franca Charles MD [address] [place] [address] PCP - General 05/02/10 01/30/11 documented as of this encounter
--- OUTSIDE RECORDS SUMMARY | 2024-04-30 13:13 | XMS_ITS | Encounter Summary ---
Author Organization [facility] [place] [address] Care Team Providers Care Order Editor Name Role Phone Chantell Sharma APRN Primary Care Provider [phone] Reason for Visit * Reason Comments Skin Check Encounter Details Date Type Department Care Team (Late st Contact Info) Description 07/30/2014 9:30 AM EST Office Visit Dermatology at [place] [address] [facility] [place] [address] Emiliano Salinas MD [address] [facility], [place] [address] Androgenetic alopecia; Solar lentigo Discharge Disposition: Home Social History Tobacco Use Types Packs/Day Years Used Date Smoking Tobacco: Never Smokeless Tobacco: Never Sex and Gender Information Value Date Recorded Sex Assigned at Not on file Gender Identity Not on file Sexual Orientation Not on file documented as of this encounter Patient Instructions * Patient Instructions* Destini aMriano LPN - 07/30/2014 9:31 AM EST Images from the original note were not included. [facility] Hair Loss From Alopecia Areata: After [...] more? Visit our health information library at [email or web address] You can also view health information on [employer], your personal patient account. Log in or sign up today. Enter Y465 in the search box to learn more about Hair Loss From Alopecia Areata: After Your Visit. ?? [id number] [employer]. Care instructions adapted under license by [facility]. This care instruction is for use with your licensed healthcare professional. If you have questions about a medical condition or this instruction, always ask your healthcare professional. [employer] disclaims any warranty or liability for your use of this information. Content Version: 103.986922; Current as of: August 19, 2013 [facility] Hair Loss From Alopecia Areata: After [...] more? Visit our health information library at [email or web address] You can also view health information on [employer], your personal patient account. Log in or sign up today. Enter Y465 in the search box to learn more about Hair Loss From Alopecia Areata: After Your Visit. ?? [id number] [employer]. Care instructions adapted under license by [facility]. This care instruction is for use with your licensed healthcare professional. If you have questions about a medical condition or this instruction, always ask your healthcare professional. [employer] disclaims any warranty or liability for your use of this information. Content Version: 10.3.675094; Current as of: August 19, 2013 documented [...] information about the [facility] in [place] and I recommended considering a consultation visit there. 2. Solar lentigos, facial. a. The patient requested and was given facial treatment. I recommended tretinoin 0.025% cream to apply on a nightly basis. She may use it every other night if too drying; 20 grams dispensed with five refills. Apply half an hour after washing. b. The patient knows this will be an [id number] expense, not covered by insurance. This will be called in to her [facility] pharmacy in [facility]. c. Return to clinic in another year for repeat check. Note: Half an hour was spent with the patient, more than half spent in counseling. documented in this encounter Plan of Treatment Upcoming Encounters Date Type Department Care Team (Late st Contact Info) Description 03/16/2025 1:30 PM EDT Office Visit Dermatology at [place] [address] [facility] [place] [address] Emiliano Salinas MD [address] [place] [address], [place] [address] documented as of this encounter Visit Diagnoses Diagnosis Androgenetic alopecia Other alopecia Solar lentigo Other dyschromia documented in this encounter Care Teams Order Editor Relationship Specialty Start Date End Date Chantell Sharma APRN PCP - General 07/09/13 05/09/16 documented as of this encounter
--- OUTSIDE RECORDS SUMMARY | 2024-04-30 13:13 | XMS_ITS | Encounter Summary ---
Author Organization [facility] Address [facility] [place] [address] Care Team Providers Care Solid Waste Disposal Manager Name Role Phone Chantell Mims APRN Primary Care Provider [phone]- [phone] Reason for Visit * Reason Comments Advice Only liposuction abdomen, bbr, Encounter Details Date Type Department Care Team (Late st Contact Info) Description 02/08/2015 9:45 AM EDT Office [place] [address] Carlee Marvin MD [facility] [place] [place] [address] Macromastia Discharge Disposition: Home Social History Tobacco [...] [facility] ??? section 1979, 1981 Complciated by infection ??? Miguel and o 1988 Allergy to [...] Concern ??? 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 traZODone (DESYREL) 100 mg tablet Take 100 mg by mouth nightly. ??? fexofenadine (EVANGELINA) 180 mg tablet 180 mg, PO, Once daily ??? Mometasone (NASONEX) 50 mcg/Actuation [place] 2 [place](s) each nostril, Nasal, Twice daily ??? [DISCONTINUED] [...] her breast-related symptoms. She was providedwith an [facility] brochure and informed consent on breast reduction. [...] possibilities. She has been provided with the [facility] patient information brochure as well as their [...] surgery is best done at a realistic residential stable weight. We talked about the outpatient nature of the surgery, drains, postoperative recovery, and time required off work. She has been referred to [email or web address] and provided with my e-mail address. [...] revisions for scarring or asymmetry.) Fuentes or [place] Pattern Incision: More scarring on breast, but [...] 30 minutes liposuction of axillary region CPT: 54480, 02616, 56870 ( 30 minutes) Surgical site: Breast/abdomen Side: Bilateral Anesthesia: General Follow up: 1 day for drain removal , 7 days with Mery Dimas PAT: No Medical clearance from PCP IErin, am acting as scribe for Dr Marvin. All work documented was performed by Dr Marvin. ???I performed the above scribed service and agree with the accuracy of the note?? CARLEE MARVIN MD documented in this encounter Plan of Treatment Upcoming Encounters Date Type Department Care Team (Late st Contact Info) Description 03/16/2025 1:30 PM EDT Office Visit Dermatology at [place] [address] [facility] [place] [phone] Emiliano Salinas MD [address], [place] [address] documented as of this encounter Procedures Procedure Name Priority Date/Time Associated Diagnosis Comments REDUCTION MAMMOPLASTY, BILATERAL Routine 02/08/2015 11:26 AM EDT documented in this encounter Visit Diagnoses Diagnosis Macromastia Hypertrophy of breast documented in this encounter Care Teams Solid Waste Disposal Manager Relationship Specialty Start Date End Date Chantell Mims APRN PCP - General 07/09/13 05/09/16 documented as of this encounter
--- OUTSIDE RECORDS SUMMARY | 2024-04-30 13:13 | XMS_ITS | Encounter Summary ---
Author Organization [facility] [place] [address] Care Team Providers Care Legal Word Processor Name Role Phone Franca Charles MD Primary Care Provider [phone] Encounter Details Date Type Department Care Team (Late st Contact Info) Description 07/09/2010 8:00 PM EST Procedure [place] [address] Leisa Lewis MD [facility] [address] Social History Tobacco Use Types Packs/Day Years [...] PM EDT Office Visit Dermatology at [place] [address] [facility] [place] [address] Emiliano Salinas MD [address], [place] [address] documented as of this encounter Visit Diagnoses Not on filedocumented in this encounter Care Teams Legal Word Processor Relationship Specialty Start Date End Date Franca Charles MD [address] [place] [address] PCP - General 05/02/10 01/30/11 documented as of this encounter
--- OUTSIDE RECORDS SUMMARY | 2024-04-30 13:13 | XMS_ITS | Encounter Summary ---
Author Organization [facility] [place] [address] Care Team Providers Care Child Advocate Name Role Phone Gareth Gramajo MD Primary Care Provider + Reason for Visit * Reason Comments Skin Check Encounter Details Date Type Department Care Team (Late st Contact Info) Description 04/24/2011 8:45 AM EST Office Visit Dermatology [address] [facility] [address] [place], [place] [id number] Emiliano Salinas MD [address] [facility], [place] [address] Androgenetic alopecia (Primary Dx); Rosacea; Solar lentigo [...] information for Aide Hassan at [facility] in [place] to help Yessenia learn of new techniques to mask her hair thinning. Mild solar lentigos, mild photo aging. a. At patient request she was given refills for Tretinoin 0.025% Cream applying this on a q. h.s. basis one-half hour after washing, 45gm dispensed with p.r.n. refills. This was called into [facility] in [facility]. Benign skin examination. a. Patient reassured about benign skin examination. b. RTC p.r.n. Rosacea. a. Quiescent. documented in this encounter Plan of Treatment Upcoming Encounters Date Type Department Care Team (Late st Contact Info) Description 03/16/2025 1:30 PM EDT Office Visit Dermatology at [address] [place] [address] Emiliano Salinas MD [address], [place]AKAR[place] [address] documented as of this encounter Visit Diagnoses Diagnosis Androgenetic alopecia- Primary Other alopecia Rosacea Solar lentigo Other dyschromia documented in this encounter Care Teams Child Advocate Relationship Specialty Start Date End Date Gareth Gramajo MD [address] [place] [address] PCP - General 04/24/11 07/08/13 documented as of this encounter
--- OUTSIDE RECORDS SUMMARY | 2024-04-30 13:13 | XMS_ITS | Encounter Summary ---
Author Organization [facility] Address [facility] [place] [address] Care Team Providers Care Metalizing Supervisor Name Role Phone Gareth Gramajo MD Primary Care Provider + Encounter Details Date Type Department Care Team (Late st Contact Info) Description 07/26/2011 Orders [place] [address] Sunita Mcknight MD [facility] [place] [address] THERESA (obstructive sleep apnea) (Primary Dx) Social [...] 1:30 PM EDT Office Visit Dermatology at [place] [address] [place] [address] Emiliano Salinas MD [address] [facility] [facility] [address], [place] [address] documented as of this encounter Visit Diagnoses Diagnosis THERESA (obstructive sleep apnea)- Primary Obstructive sleep apnea (adult) (pediatric) documented in this encounter Care Teams Metalizing Supervisor Relationship Specialty Start Date End Date Gareth Gramajo MD [address] [place] [address] PCP - General 04/24/11 07/08/13 documented as of this encounter
--- OUTSIDE RECORDS SUMMARY | 2024-04-30 13:13 | XMS_ITS | Encounter Summary ---
Author Organization [facility] [place] [address] Care Team Providers Care Conversion Man Name Role Phone Franca Charles MD Primary Care Provider [phone] Encounter Details Date Type Department Care Team (Late st Contact Info) Description 06/29/2010 12:35 PM EST Office [place] [address] Leisa Lewis MD [facility] [place] [address] Social History Tobacco Use Types Packs/Day Years [...] 1:30 PM EDT Office Visit Dermatology at [place] [address] [facility] [address] [facility] [place] [address] Emiliano Salinas MD [address], [place] [address] documented as of this encounter Visit Diagnoses Not on filedocumented in this encounter Care Teams Conversion Man Relationship Specialty Start Date End Date Franca Charles MD [address] [place] [address] PCP - General 05/02/10 01/30/11 documented as of this encounter
--- OUTSIDE RECORDS SUMMARY | 2024-04-30 13:13 | XMS_ITS | Encounter Summary ---
Author Organization [facility] [place] [address] Care Team Providers Care Director Records Management Name Role Phone Franca Charles MD Primary Care Provider [phone] Encounter Details Date Type Department Care Team (Late st Contact Info) Description 07/10/2010 8:30 AM EST [place] [address] [facility] [place] [address] Social History Tobacco Use Types Packs/Day Years [...] 1:30 PM EDT Office Visit Dermatology at [place] [address] [facility] [address] [place] [address] Emiliano Salinas MD [address], [place] [address] documented as of this encounter Visit Diagnoses Not on filedocumented in this encounter Care Teams Director Records Management Relationship Specialty Start Date End Date Franca Charles MD [address] [place] [address] PCP - General 05/02/10 01/30/11 documented as of this encounter
--- OUTSIDE RECORDS SUMMARY | 2024-04-30 13:13 | XMS_ITS | Encounter Summary ---
Author Organization [facility] Address [facility] [place] [address] Care Team Providers Care Emergency Telecommunications Dispatcher Name Role Phone Gareth Gramajo MD Primary Care Provider + Reason for Visit * Reason Comments Procedure UDS Encounter Details Date Type Department Care Team (Latest Contact Info) Description 01/08/2012 8:15 AM EDT Procedure visit Obstetrics [place] [phone] Juan Alberto Harrell MD [facility] [address] OBSTETRICS [place] [address] Urinary incontinence, urge (Primary Dx) Discharge Disposition: [...] Female Pelvic Medicine and Reconstructive Surgery @ [facility] Urodynamic Procedure Note Patient name: [...] CYSTOMETROGRAM: Filling was performed via a 7 [place] T-DOC catheter in the sitting position at a rate of 50cc/min. A 7 [place] T-DOC catheter was placed in the rectum [...] 1:30 PM EDT Office Visit Dermatology at [place] [address] [place] [address] Emiliano Salinas MD [address] [facility], [place] [address] documented as of this encounter Visit Diagnoses Diagnosis Urinary incontinence, urge- Primary Urge incontinence documented in this encounter Care Teams Emergency Telecommunications Dispatcher Relationship Specialty Start Date End Date Gareth Gramajo MD [address] [place] [address] PCP - General 04/24/11 07/08/13 documented as of this encounter
--- OUTSIDE RECORDS SUMMARY | 2024-04-30 13:13 | XMS_ITS | Encounter Summary ---
Author Organization [facility] [place] [address] Care Team Providers Care Wirer Passenger Car Name Role Phone Gareth Gramajo MD Primary Care Provider + Encounter Details Date Type Department Care Team (Late st Contact Info) Description 12/10/2011 Notes Only Obstetrics [place] [address] Lien Patel RN Social History Tobacco Use Types Packs/Day Years Used Date Smoking Tobacco: Never Sex and Gender Information Value Date Recorded Sex Assigned at Not on file Gender Identity Not on file Sexual Orientation Not on file documented as of this encounter Progress Notes * Lien Patel RN - 12/10/2011 5:39 PM EDT Review [...] of total 24 hr output volume LIEN PATEL RN Division of Female Pelvic Medicine & Reconstructive Surgery documented in this encounter Plan of Treatment Upcoming Encounters Date Type Department Care Team (Late st Contact Info) Description 03/16/2025 1:30 PM EDT Office Visit Dermatology at [place] [address] [place] [address] Emiliano Salinas MD [address], [place] [address] documented as of this encounter Visit Diagnoses Not on filedocumented in this encounter Care Teams Wirer Passenger Car Relationship Specialty Start Date End Date Gareth Gramajo MD [address] [place] [address] PCP - General 04/24/11 07/08/13 documented as of this encounter
--- OUTSIDE RECORDS SUMMARY | 2024-04-30 13:13 | XMS_ITS | Patient Health Record ---
Author Organization [facility] Address [address] [place] [address] Care Team Providers Care Senior Compensation Analyst Name Role Phone Sukhjinder Stewart Unavailable JEFFERY OCONNELL MD Unavailable Unavailable REASON FOR REFERRAL [...] joint of right hand (M18.11) Active confirmed [id number] PLAN OF TREATMENT No Information Insurance Providers Payer Name Payer Address Payer Phone Subscriber Number Group Number Insured Name Patient Relationship to Insured Coverage Start Date Coverage End Date MEDICARE [address] [place], [place] [id number] SUNNY ESPARZA Self - patient is the insured -[facility] [address] [place] [address] SUNNY ESPARZA Self - patient is the insured SELF PAY [place] [address] [place] [address] SUNNY ESPARZA Self - patient is the insured MEDICAL (GENERAL) HISTORY Medical History History ICD Code Biceps tendinitis, right Muscle cramps GERD Surgical History Surgery Date(Month/Year)
--- OUTSIDE RECORDS SUMMARY | 2024-04-30 13:13 | XMS_ITS | Encounter Summary ---
Author Organization [facility] [place] [address] Care Team Providers Care Certified Veterinary Technician Name Role Phone Gareth Gramajo MD Primary Care Provider + Encounter Details Date Type Department Care Team (Late st Contact Info) Description 01/10/2012 Orders Only Obstetrics [place] [address] Lien Patel RN Social History Tobacco Use [...] 1:30 PM EDT Office Visit Dermatology at [place] [address] [place] [address] Emiliano Salinas MD [address] [facility], [place]IND[place] [address] documented as of this encounter Visit Diagnoses Not on filedocumented in this encounter Care Teams Certified Veterinary Technician Relationship Specialty Start Date End Date Gareth Gramajo MD [address] [place] [address] PCP - General 04/24/11 07/08/13 documented as of this encounter
[2024-05-01 13:47] LABS: Helicobacter pylori Ag, Feces Negative (Negative)
== END 2024-04-30 13:02 | disposition home or self-care (01) ==
LOC: LBN 09:00
PROVIDERS: PCP Student in an Organized Health Care Education/Training Program; Visit Provider Internal Medicine Infectious Disease
DX: G93.39 Other post infection and related fatigue syndromes (principal)
CPT/HCPCS: 87338

== ENCOUNTER 2024-04-29 10:54 | Outpatient (CLI) | payer MEDICARE, SELFPAY ==
[2024-04-29 11:05] LABS: Abs Immature Grans 0.01 10^3/uL (0.0-0.06); Absolute Basophil Count 0.04 10^3/uL (0.0-0.2); Absolute Eosinophil Count 0.25 10^3/uL (0.0-0.7); Absolute Lymphocyte Count 1.64 10^3/uL (1.2-3.4); Absolute Monocyte Count 0.42 10^3/uL (0.1-0.8); Absolute Neutrophil Count 2.51 10^3/uL (1.2-6.7); Basophils % 0.8 %; Eosinophils % 5.1 %; HCT 34.3 % (36.0-46.0); HGB 11.5 g/dL (11.2-15.7); Immature Grans % 0.2 %; Lymphocytes % 33.7 %; MCH 31.2 pg (27.0-33.0); MCHC 33.5 % (32.0-36.0); MCV 93 fL (80-95); Monocytes % 8.6 %; Neutrophils % 51.6 %; Platelet Count 417 10^3/uL (130-400); RBC 3.69 10^6/uL (3.93-5.22); RDW-SD 41.3 fL; WBC 4.87 10^3/uL (4.4-10.8)
[2024-04-29 11:32] LABS: ALT 18 U/L (14-59); AST 18 U/L (15-37); Albumin 3.8 g/dL (3.4-5.0); Alkaline Phosphatase 68 U/L (46-116); BUN 10 mg/dL (7-18); Bilirubin, Total 0.45 mg/dL (0.2-1.0); CREATININE 0.9 mg/dL (0.55-1.02); Calcium 9.6 mg/dL (8.5-10.1); Chloride 105 mmol/L (98-107); Estimated GFR 66.67 (mL/min/1.73m2); Ferritin 82 ng/mL (8-252); Glucose 97 mg/dL (74-106); Potassium 3.7 mmol/L (3.5-5.1); Sodium 143 mmol/L (136-145); Total Protein 7.3 g/dL (6.4-8.2)
[2024-04-29 11:49] LABS: FREE T4 1.07 ng/dL (0.76-1.46)
[2024-04-29 11:53] LABS: Iron 86 ug/dL (50-170); Total Iron Binding Capacity 257 ug/dL (250-450); Transferrin Sat 33 % (15-50)
[2024-04-29 17:51] LABS: T3,Free 3.9 pg/mL (2.8-5.3)
[2024-04-29 18:29] LABS: Thyroglobulin Antibody >500 U/mL (<=60); Thyroperoxidase Antibody 187 U/mL (<=60)
[2024-05-04 17:46] LABS: T3 (Triiodothyronine) Reverse 22 ng/dL (10-24)
[2024-05-05 09:04] LABS: Apolipoprotein B, Serum 91 mg/dL (48-124); Beta VLDL Cholesterol Not Detected mg/dL (<15); Beta VLDL Triglycerides Not Detected mg/dL (<15); Cholesterol, Total, CDC 217 mg/dL; Chylomicron Cholesterol Not Detected; Chylomicron Triglycerides Not Detected; HDL Cholesterol, CDC 64 mg/dL (>=50); LDL Cholesterol 118 mg/dL; LDL Triglycerides 47 mg/dL (<=50); Lp(a) Cholesterol <5 mg/dL (<5); LpX Not detected; Triglycerides, CDC 170 mg/dL; VLDL Cholesterol 35 mg/dL (<30); VLDL Triglycerides 97 mg/dL (<120)
== END 2024-04-29 10:55 | disposition home or self-care (01) ==
LOC: LBO 10:54
PROVIDERS: PCP Student in an Organized Health Care Education/Training Program; Visit Provider Emergency Medicine
DX: E78.01 Familial hypercholesterolemia; E61.1 Iron deficiency; E03.9 Hypothyroidism, unspecified
CPT/HCPCS: 36415; 80048; 80053; 80061; 86376; 82172; 82664; 82728; 83540; 83550; 84439; 84443; 84481; 84482; 85025

== ENCOUNTER → 2024-07-20 12:52 | Outpatient (BNVA) | payer MEDICARE, SELFPAY | PROVIDERS: PCP Family Medicine; Referring Provider Family Medicine; Visit Provider Podiatrist | DX: M79.671 Pain in right foot (principal); M79.672 Pain in left foot; M20.21 Hallux rigidus, right foot; M20.22 Hallux rigidus, left foot; M77.41 Metatarsalgia, right foot; M77.42 Metatarsalgia, left foot; M67.01 Short Achilles tendon (acquired), right ankle; M67.02 Short Achilles tendon (acquired), left ankle; M21.41 Flat foot [pes planus] (acquired), right foot; M21.42 Flat foot [pes planus] (acquired), left foot | CPT/HCPCS: 20600; J0702; J1100 ==

== ENCOUNTER 2024-09-03 16:23 | Emergency (ER) | payer MEDICARE, SELFPAY ==
[2024-09-03] VITALS (16 sets, daily range): BP systolic 194–209; BP diastolic 79–100; PULSE 68–77; RESP 14–25; TEMP 36.6; O2SAT 94–98
--- NOTE | 2024-09-03 16:30 | RT.EKG_ITS ---
APPROVED REPORT Exam: Resting ECG Reason for Exam: HTN Patient Location: E HR:69 bpm ECG Measurements Heart Rate 69 AXIS MS 146 P 52 QRSd 109 QRS -23 QT 424 T 33 QTc 455 Conclusion Sinus rhythm...normal P axis, V-rate 60- 99 Probable left ventricular hypertrophy...(RaVL+SV3)xQRSd >300
--- NOTE | 2024-09-03 16:45 | DI.RAD_ITS ---
Exam(s) XR CHEST 2V PA LATERAL EXAM: XR CHEST 2V PA LATERAL CLINICAL HISTORY: ?pneumonia TECHNIQUE: 2D digital imaging was performed. Two views. COMPARISON: CR XR CHEST 2V PA LATERAL from 02/15/2024 FINDINGS: HEART: Normal size. Aorta: Not dilated. PULMONARY VASCULATURE: Normal. MEDIASTINUM: Unremarkable. LUNGS: Suboptimally inflated but clear. PLEURAL SPACE: No pleural effusion or pneumothorax. BONE:Unremarkable for age. SOFT TISSUES: Unremarkable. IMPRESSION: No acute abnormality. DATA REPOSITORY: RADIATION DOSE DELIVERED:
--- NOTE | 2024-09-03 16:53 | DI.CT_ITS ---
Exam(s) CT HEAD SINUS WO EXAM: CT HEAD SINUS WO CLINICAL HISTORY: frontal headache and sinus pain. TECHNIQUE: Imaging Protocol: Axial computed tomography images with coronal and sagittal reformatted images were created and reviewed COMPARISON: CT CT HEAD WO from 02/15/2024 FINDINGS: CT Head: Ventricles and Extra axial spaces: Normal in size and morphology for the patient's age. Hemorrhage: None. Cerebral parenchyma: No evidence of acute hemorrhage or acute infarct. Midline shift: None. Brainstem/Cerebellum: Normal. Calvarium: Normal. Visualized Paranasal sinuses/Mastoids: Clear. Soft Tissues: Unremarkable. CT Face: Facial Bones: No fracture is noted in facial bones. Sinuses: Mild mucosal thickening in the ethmoid sinuses. Mild mucosal thickening and mild mucous ret ention in the right maxillary sinus. Nasal septum is deviated toward the right. Mild mucous retenti on in the right sphenoid sinus. No bony destruction. No air-fluid level. Mastoids: Unremarkable. Globes, extraocular muscles, optic nerves and retrobulbar fat: Normal. Upper aerodigestive tract: Normal. Mandible and bilateral temporomandibular joints: Normal. Soft tissues: Normal. IMPRESSION: 1. No acute intracranial process. 2. Mild right sided chronic sinusitis. RADIATION DOSE DELIVERED: Total DLP DATA REPOSITORY: All CT scans at this facility are submitted to the National Radiology Data Registry (NRDR) Dose Index Registry (DIR) with the [employer] [place] [employer] (ACR). RADIATION OPTIMIZATION: All CT scans at this facility use at least one of these dose optimization te chniques: automated exposure control; mA and/or kV adjustment per patient size (includes targeted exa ms where dose is matched to clinical indication); or iterative reconstruction.
--- NOTE | 2024-09-03 16:55 | W.ED.GENAD ---
Discharge Plan Disposition Patient Disposition: Home Condition: Stable Discharge Details Clinical Impression: Hypertension, Sinusitis Primary Care Provider: Elier Cross ED Provider: Vern Almonte Home Meds and New Rx's Prescriptions: New doxycycline hyclate 100 mg tablet 100 mg PO BID Qty: 19 0RF amlodipine 2.5 mg tablet 2.5 mg PO DAILY Qty: 30 0RF Continued Classic 28 mg iron- 800 mcg tablet 1 tab PO DAILY Qty: 90 3RF Rx Instructions: Trial to supplement IRON (hold if constipation) vitamin B complex Capsule 1 cap PO DAILY magnesium aspart,citrate,oxide 400 mg magnesium capsule 800 mg PO QHS calcium carbonate-vitamin D3 PO epinephrine 0.3 mg/0.3 mL auto-injector 0.3 mg IM DIRECTED PRN (Reason: anaphylaxis) Qty: 2 2RF probiophage PO Patient Comments: prescribed by Dr. Martinez fexofenadine [Allergy Relief (fexofenadine)] 180 mg tablet 180 mg PO DAILY Nexletol 180 mg tablet 180 mg PO DAILY Qty: 90 3RF Rx Instructions: continue per cardiology estradiol 0.5 mg tablet 0.5 mg PO DAILY Qty: 90 3RF Rx Instructions: Replacing patch levothyroxine 50 mcg tablet 50 mcg PO DAILY Qty: 90 3RF trazodone 100 mg tablet 100 mg PO QHS PRN (Reason: sleep) Qty: 90 3RF mometasone 0.1 % cream 1 applic topical DAILY PRN (Reason: skin irritation) Qty: 45 1RF mupirocin 2 % ointment 1 applic topical BID Qty: 22 1RF acyclovir 5 % cream 1 applic topical ONCE PRN (Reason: canker sore) Qty: 5 0RF trazodone 50 mg tablet 50 mg PO QHS PRN (Reason: sleep) Qty: 90 0RF fluticasone propionate [Flonase Allergy Relief] 50 mcg/actuation spray,suspension 2 spray intranasal DAILY Qty: 16 6RF Rx Instructions: administer into each nostril M-Fab Plus 27 mg iron- 1 mg tablet Patient Comments: TAKE ONE TABLET BY MOUTH EVERY DAY (HOLD IF CONSTIPATION) Discharge Instructions Additional Instructions: Your blood work did not show any concerning findings at this time, you do have findings on the CT of sinusitis. You are being started on antibiotic for this. You are also being starting on blood pressure meds because your blood pressure was high while here. Follow-up with your primary care provider for recheck of your blood pressure. If you feel more ill or have new symptoms such as severe shortness of breath or chest pain return to the emergency department for reevaluation HPI General Mode of arrival: ambulatory. Date/Time Provider Initiated Documentation: 09/03/24 16:42. Limitations to Documentation: no limitations. Information obtained by: patient. History of Present Illness 74 year old F presents to the emergency department with the chief complaint of nose bleed, high blood pressure, sinus pressure, described as moderate, Quality is described as other (pressure), and is localized to the head and face. Patient started experiencing this day(s) (1) and it has been constant. No relieving factors improve symptom(s), No exacerbating factors reported . Patient notes no other symptoms.; denies chest pain, fever/chills and shortness of breath. Related Data Home Medications ?Medication ?Instructions ?Recorded ?Confirmed calcium carbonate-vitamin D3 PO 10/10/23 07/20/24 epinephrine 0.3 mg/0.3 mL 0.3 mg (0.3 mL) IM DIRECTED PRN 10/29/23 09/03/24 injection, auto-injector anaphylaxis #2 ea fexofenadine 180 mg tablet 180 mg PO DAILY 04/16/24 09/03/24 (Allergy Relief (fexofenadine)) probiophage PO 04/16/24 07/20/24 vits no.126-ferrous fum 1 tab PO DAILY iron deficiency #90 04/23/24 09/03/24 28 mg iron-folic acid 800 mcg tabs tablet (Classic ) magnesium aspart,citrate,oxide 800 mg PO QHS 06/23/24 09/03/24 vitamin B complex 1 cap PO DAILY 06/23/24 09/03/24 bempedoic acid 180 mg tablet 180 mg PO DAILY #90 tabs 06/29/24 09/03/24 (Nexletol) estradiol 0.5 mg tablet 0.5 mg PO DAILY #90 tabs 06/29/24 09/03/24 levothyroxine 50 mcg tablet 50 mcg PO DAILY #90 tabs 06/29/24 09/03/24 trazodone 100 mg tablet 100 mg PO QHS PRN sleep #90 tabs 06/29/24 09/03/24 mometasone 0.1 % topical cream 1 applic topical DAILY PRN skin 06/30/24 09/03/24 irritation #45 grams mupirocin 2 % topical ointment 1 applic topical BID #22 grams 06/30/24 09/03/24 acyclovir 5 % topical cream 1 applic topical ONCE PRN canker 07/14/24 09/03/24 sore #5 grams trazodone 50 mg tablet 50 mg PO QHS PRN sleep #90 tabs 07/21/24 09/03/24 fluticasone propionate 50 2 spray intranasal DAILY #16 grams 07/27/24 09/03/24 mcg/actuation nasal spray,suspension (Flonase Allergy Relief) amlodipine 2.5 mg tablet 2.5 mg PO DAILY #30 tabs 09/03/24 doxycycline hyclate 100 mg tablet 100 mg PO BID #19 tabs 09/03/24 vitamin with calcium tab 09/03/24 no.72-iron 27 mg-folic acid 1 mg tablet (M- Plus) Previous Rx's ?Medication ?Instructions ?Recorded epinephrine 0.3 mg/0.3 mL 0.3 mg (0.3 mL) IM DIRECTED PRN 10/29/23 injection, auto-injector anaphylaxis #2 ea vits no.126-ferrous fum 1 tab PO DAILY iron deficiency #90 04/23/24 28 mg iron-folic acid 800 mcg tabs tablet (Classic ) bempedoic acid 180 mg tablet 180 mg PO DAILY #90 tabs 06/29/24 (Nexletol) estradiol 0.5 mg tablet 0.5 mg PO DAILY #90 tabs 06/29/24 levothyroxine 50 mcg tablet 50 mcg PO DAILY #90 tabs 06/29/24 trazodone 100 mg tablet 100 mg PO QHS PRN sleep #90 tabs 06/29/24 mometasone 0.1 % topical cream 1 applic topical DAILY PRN skin 06/30/24 irritation #45 grams mupirocin 2 % topical ointment 1 applic topical BID #22 grams 06/30/24 acyclovir 5 % topical cream 1 applic topical ONCE PRN canker 07/14/24 sore #5 grams trazodone 50 mg tablet 50 mg PO QHS PRN sleep #90 tabs 07/21/24 fluticasone propionate 50 2 spray intranasal DAILY #16 grams 07/27/24 mcg/actuation nasal spray,suspension (Flonase Allergy Relief) amlodipine 2.5 mg tablet 2.5 mg PO DAILY #30 tabs 09/03/24 doxycycline hyclate 100 mg tablet 100 mg PO BID #19 tabs 09/03/24 Allergies Allergy/AdvReac Type Severity Reaction Status Date / Time venom-honey bee (bee venom Allergy Severe Anaphylaxsi Verified 09/03/24 16:38 (honey bee)) s fenofibrate Allergy Mild Other (See Verified 09/03/24 16:38 Comment) amoxicillin trihydrate (From Allergy Other (See Verified 09/03/24 16:38 Augmentin) Comment) atorvastatin calcium (From Allergy Other (See Verified 09/03/24 16:38 Lipitor) Comment) celecoxib (From Celebrex) Allergy Other (See Verified 09/03/24 16:38 Comment) diclofenac sodium (From Allergy Other (See Verified 09/03/24 16:38 Voltaren) Comment) potassium clavulanate (From Allergy Other (See Verified 09/03/24 16:38 Augmentin) Comment) rosuvastatin calcium (From Allergy Other (See Verified 09/03/24 16:38 Crestor) Comment) simvastatin (From Zocor) Allergy Other (See Verified 09/03/24 16:38 Comment) Sulfa (Sulfonamide Allergy Other (See Verified 09/03/24 16:38 Antibiotics) Comment) sulfamethoxazole (From Allergy Other (See Verified 09/03/24 16:38 Bactrim) Comment) trimethoprim (From Bactrim) Allergy Other (See Verified 09/03/24 16:38 Comment) morphine AdvReac Intermediate Nausea Verified 09/03/24 16:38 oxycodone HCl (From AdvReac Intermediate Nausea Verified 09/03/24 16:38 OxyContin) Penicillins AdvReac Intermediate Nausea Verified 09/03/24 16:38 General Stated Complaint: RespSymp RANDALL: 3 Review of Systems All systems reviewed & are unremarkable except as noted in HPI and below Constitutional Constitutional: Denies chills, Denies fever(s) and Denies weakness ENT Ears, Nose, Mouth, and Throat: Reports epistaxis and Reports sinus pain Cardiovascular Cardiovascular: Denies chest pain and Denies dyspnea Respiratory Respiratory: Reports cough and Denies dyspnea Gastrointestinal Gastrointestinal: Denies abdominal pain, Denies nausea and Denies vomiting Neurologic Neurologic: Denies weakness Exam Const General: no acute distress Orientation: alert HENMT Head: normal to inspection Ears: external ears normal and TM's normal bilaterally General nose exam: external nose normal Mouth: moist mucous membranes Throat: posterior oropharynx normal and uvula midline Eyes General: appearance normal, both eyes and all related structures Neck Neck: normal visual inspection Resp Effort & Inspection: normal respiratory effort and able to speak in complete sentences Auscultation: clear to auscultation bilaterally Cardio Jugular venous pressure: no JVD Rate: regular rate GI Palpation: nontender Skin General skin exam: no rashes or lesions noted Neuro General: patient alert and patient oriented x3 Extrem General: normal to inspection Psych Mental Status: mental status grossly normal Course Vital Signs Vital signs: Vital Signs Temperature 36.6 C 09/03/24 16:32 Pulse 73 09/03/24 16:32 Respiratory Rate 16 09/03/24 16:32 Blood Pressure 201/96 H 09/03/24 16:32 Pulse Oximetry 97 09/03/24 16:32 Temperature 36.6 C 09/03/24 16:32 Temperature Source Oral 09/03/24 16:32 Pulse 73 09/03/24 16:32 Respiratory Rate 16 09/03/24 16:32 Blood Pressure 201/96 H 09/03/24 16:32 Blood Pressure Position Sitting 09/03/24 16:32 Pulse Oximetry 97 09/03/24 16:32 Oxygen Delivery Method Room Air 09/03/24 16:32 Oxygen Flow Rate 0 09/03/24 16:32 Pain Level 0 09/03/24 16:32 Medical Decision Making 74-year-old female with a history of hypothyroidism and chronic Lyme per patient comes in with 1 day of sinus congestion and had a nosebleed earlier. She says she recently traveled back after being in [place] for a month yesterday. She noted the symptoms on the bus ride home. She went to urgent care where they found her blood pressure to be elevated so was referred here. She denies any chest pain or difficulty breathing, no vomiting. She has a mild frontal headache and pressure in the maxillary sinuses. She has no current epistaxis. Normal posterior oropharynx. Clear lung sounds, no focal deficits. She is well-appearing. I suspect sinusitis versus URI, she has noted be hypertensive to 200, will obtain CT head and sinus and also a chest x-ray and to get CBC, CMP and troponins. She has no tearing back pain and equal peripheral pulses so I doubt dissection Labs unremarkable, CT shows signs of chronic sinusitis, she is stable but still hypertensive with 190s systolic. Has no chest pain and given symptoms been going on since yesterday do not feel further troponins indicated. Discussed with her starting an antihypertensive and she is wanting to do this so I will start her on a low-dose amlodipine. I will also start her on doxycycline for her sinusitis symptoms. She will follow-up with her PCP and return precautions given Differential Diagnosis Differential Diagnosis: Sinusitis, epistaxis, pneumonia, Quality:SDOH Health Related Social Needs: Health related social needs details denies [facility] All Active Problems (Updated 09/03/24 @ 18:27 by Vern Almonte MD) Sinusitis (Acute) Hypertension (Chronic) Dry skin (Acute) Post-Lyme disease syndrome (Acute) Sciatica (Acute) Spinal stenosis of lumbar region (Acute) Pancreatic cyst (Acute) Hypercalciuria (Acute ~01/2024) 01/22/24 Endocrinology Metatarsalgia of both feet (Acute) Hallux rigidus of right foot (Acute) Hallux rigidus, left foot (Acute) Osteopenia (Acute 12/27/22) DEXA at [facility] Chronic low back pain (Chronic) 10/24/22 Steroid injection Mixed anxiety and depressive disorder (Acute) Arthritis of carpometacarpal (CMC) joint of right thumb (Acute) 11/07/21 & 12/29/[address] [facility] Leg length discrepancy (Acute) Achilles tendon contracture, bilateral (Acute) Pes planus of both feet (Acute) Mild anemia (Acute) Wears hearing aid in both ears (Acute) Symptomatic varicose veins of both lower extremities (Acute) Familial hypercholesteremia (Acute) per pt report (Dr. Laguna? Card) Hypothyroid (Chronic) Allergic rhinitis due to animal (cat) (dog) hair and dander (Acute 05/04/13) Allergic rhinitis due to pollen (Acute 05/04/13) Conductive hearing loss (Acute 12/19/15) Eustachian tube anomaly (Acute 05/17/14) Obstructive sleep apnea (Acute 05/17/14) Sensorineural hearing loss, bilateral (Acute 04/04/15) Vitamin D deficiency disease (Acute) Urinary incontinence (Acute) [facility] note from 02/20/24 installation of Intradetrusor Botox injections/bladder surgery.HE Heart murmur, systolic (Acute) Medical History Fracture of second metatarsal bone of left foot (~05/16/23) with no trauma, etiology? Neuroma of third interspace of left foot Neuroma of third interspace of right foot Chronic diarrhea Lyme disease (2020) Allergic rhinitis (05/04/13) Perforation of left tympanic membrane History of endometriosis Encounter for screening colonoscopy Allergic fungal sinusitis (05/04/13) Surgical History H/O endoscopy (06/26/24) upper EUS due to pancreatic cyst [facility] H/O arthroplasty CMCJ of thumb H/O abdominoplasty age 59 Status post breast reduction age 59 H/O nasal septoplasty age 39 H/O hysterectomy for benign disease History of knee replacement R History of hysterectomy History of section History of tonsillectomy History of appendectomy History of colonoscopy Family History Brother Anxiety Depression Niece Depression Nephew Depression Mother Heart disease Father Heart disease Parkinson disease Sister Heart disease Depression Paternal Grandmother No problems noted. Maternal Grandfather Diabetes Brother No problems noted. 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 Pets and animals: No Do you think of yourself as: straight/heterosexual Current gender identity: female What is your relationship status?: How often do you talk on the phone with friends or family?: three or more times per week How often do you get together with friends or relatives?: three or more times per week Do you belong to any clubs or organized social groups?: yes Panel score (0-1 are the most socially isolated patients): 2 What type of physical activity do you participate in: walking and swimming Duration: 15-30 minutes/day Frequency: 3-4 times per week Jodie/Restorationism: [employer] Agree to transfusion: No Seatbelt use: always Helmet use: Yes Drive intox or ride w/intox special events driver: No Do you feel safe at home: Yes Do you feel safe in your relationship?: Yes
[2024-09-03 17:26] LABS: Abs Immature Grans 0.02 10^3/uL (0.0-0.06); Absolute Basophil Count 0.03 10^3/uL (0.0-0.2); Absolute Eosinophil Count 0.02 10^3/uL (0.0-0.7); Absolute Lymphocyte Count 0.92 10^3/uL (1.2-3.4); Absolute Monocyte Count 0.86 10^3/uL (0.1-0.8); Absolute Neutrophil Count 2.97 10^3/uL (1.2-6.7); Basophils % 0.6 %; Eosinophils % 0.4 %; HCT 35.8 % (36.0-46.0); HGB 12.1 g/dL (11.2-15.7); Immature Grans % 0.4 %; Lymphocytes % 19.1 %; MCH 30.6 pg (27.0-33.0); MCHC 33.8 % (32.0-36.0); MCV 91 fL (80-95); MPV 8.6 fL (8.0-11.0); Monocytes % 17.8 %; Neutrophils % 61.7 %; Platelet Count 286 10^3/uL (130-400); RBC 3.95 10^6/uL (3.93-5.22); RDW 12.4 % (11.7-14.6); RDW-SD 41.4 fL; WBC 4.82 10^3/uL (4.4-10.8)
[2024-09-03 17:53] LABS: ALT 37 U/L (14-59); AST 37 U/L (15-37); Albumin 4.2 g/dL (3.4-5.0); Alkaline Phosphatase 63 U/L (46-116); Anion Gap 9.3 mmol/L (3-11); BUN 12 mg/dL (7-18); Bilirubin, Total 0.7 mg/dL (0.2-1.0); CO2 28.7 mmol/L (21.0-32.0); CREATININE 0.9 mg/dL (0.55-1.02); Calcium 9.3 mg/dL (8.5-10.1); Chloride 93 mmol/L (98-107); Estimated GFR 66.67 (mL/min/1.73m2); Glucose 96 mg/dL (74-106); Magnesium 1.9 mg/dL (1.8-2.4); Potassium 3.4 mmol/L (3.5-5.1); Sodium 131 mmol/L (136-145); Troponin I 8 ng/L (<or=51)
[2024-09-03 18:02] LABS: Procalcitonin < 0.10 ng/mL
[2024-09-03 18:04] LABS: COVID-19 PCR Negative (Negative); Influenza A PCR Negative (Negative); Influenza B PCR Negative (Negative); RSV PCR Negative (Negative)
[2024-09-03 18:05] LABS: Source Nasopharynx
[2024-09-03] MEDS: Doxycycline Hyclate 100 MG CAP PO (18:43)
[2024-09-03] MEDS: amLODIPine 2.5 MG TAB PO (18:43)
== END 2024-09-03 19:01 | disposition home or self-care (01) ==
PROVIDERS: Emergency Provider Emergency Medicine; PCP Family Medicine
DX: J32.9 Chronic sinusitis, unspecified (principal); I10 Essential (primary) hypertension
CPT/HCPCS: 36415; 80053; 84145; 87637; 93005; 99285; 70450; 70486; 71046; 83735; 84484; 85025; 93010; 99284

== ENCOUNTER → 2024-09-29 12:46 | Outpatient (BNVA) | payer MEDICARE, SELFPAY | PROVIDERS: PCP Family Medicine; Referring Provider Family Medicine; Visit Provider Podiatrist | DX: M20.21 Hallux rigidus, right foot (principal); M20.22 Hallux rigidus, left foot; M77.41 Metatarsalgia, right foot; M77.42 Metatarsalgia, left foot; M21.41 Flat foot [pes planus] (acquired), right foot; M21.42 Flat foot [pes planus] (acquired), left foot; M67.01 Short Achilles tendon (acquired), right ankle; M67.02 Short Achilles tendon (acquired), left ankle | CPT/HCPCS: 99213 ==

== ENCOUNTER → 2024-11-19 14:54 | Outpatient (BNVA) | payer MEDICARE, SELFPAY | PROVIDERS: PCP Family Medicine; Referring Provider Family Medicine; Visit Provider Podiatrist ==

== ENCOUNTER 2024-12-03 12:15 | Outpatient (CLI) | payer MEDICARE, SELFPAY ==
[2024-12-03 13:57] LABS: C-Reactive Protein < 0.50 mg/dL (<or=0.5)
[2024-12-04 13:18] LABS: ANA Interpretation Negative (Negative)
== END 2024-12-03 12:16 | disposition home or self-care (01) ==
LOC: LBO 12:15
PROVIDERS: PCP Family Medicine; Visit Provider Registered Nurse
DX: G89.4 Chronic pain syndrome (principal); F33.1 Major depressive disorder, recurrent, moderate; F51.8 Other sleep disorders not due to a substance or known physiological condition; F41.1 Generalized anxiety disorder; R41.840 Attention and concentration deficit
CPT/HCPCS: 36415; 86038; 86140

== ENCOUNTER 2025-02-23 03:45 | Outpatient (CLI) | payer MEDICARE, SELFPAY ==
[2025-02-23 10:32] LABS: Sodium, Urine 18 mmol/L
[2025-02-23 10:38] LABS: Iron 112 ug/dL (50-170); Total Iron Binding Capacity 333 ug/dL (250-450); Transferrin Sat 34 % (15-50)
[2025-02-23 11:04] LABS: Anion Gap 9.8 mmol/L (3-11); BUN 18 mg/dL (7-18); CO2 30.2 mmol/L (21.0-32.0); Calcium 10.0 mg/dL (8.5-10.1); Calculated LDL 112 mg/dL (<100); Chloride 99 mmol/L (98-107); Cholesterol 218 mg/dL (<200); Estimated GFR 58.39 (mL/min/1.73m2); Glucose 102 mg/dL (74-106); HDL Cholesterol 73 mg/dL (>or=50); Potassium 3.8 mmol/L (3.5-5.1); Sodium 139 mmol/L (136-145); TSH (W/Ref FT4) 2.30 uIU/mL (0.36-3.74); Triglyceride 165 mg/dL (<150); Vitamin B12 1999 pg/mL (193-986); Vitamin D 25 Total 42 ng/mL (30-100)
[2025-02-23 17:44] LABS: Osmolality, Urine 302 mOsm/kg (150-1150)
[2025-02-24 11:56] LABS: HSV Type 2 Ab, IgG Positive (Negative)
== END 2025-02-23 03:46 | disposition home or self-care (01) ==
LOC: LBO 03:45
PROVIDERS: Absent Provider Family Medicine; PCP Family Medicine; Referring Provider Family Medicine; Visit Provider Family Medicine
DX: G62.9 Polyneuropathy, unspecified (principal); E87.1 Hypo-osmolality and hyponatremia; E55.9 Vitamin D deficiency, unspecified; K12.1 Other forms of stomatitis; D64.9 Anemia, unspecified; E03.9 Hypothyroidism, unspecified; E78.01 Familial hypercholesterolemia
CPT/HCPCS: 36415; 80048; 80061; 82306; 83935; 82607; 83540; 83550; 84300; 84443; 86695; 86696

== ENCOUNTER 2025-02-23 16:50 | Emergency (ER) | payer MEDICARE, SELFPAY ==
[2025-02-23] VITALS (17 sets, daily range): BP systolic 163–200; BP diastolic 74–94; PULSE 72–98; RESP 10–20; TEMP 36.6; O2SAT 92–98
--- NOTE | 2025-02-23 16:45 | RT.EKG_ITS ---
APPROVED REPORT Exam: Resting ECG Reason for Exam: High Blood Pressure Patient Location: E HR:71 bpm ECG Measurements Heart Rate 71 AXIS TN 150 P 45 QRSd 109 QRS -13 QT 405 T 55 QTc 442 Conclusion Sinus rhythm, rate 71 No interval abnormalities No STEMI LVH, unchanged from priors
--- NOTE | 2025-02-23 17:00 | DI.CT_ITS ---
Exam(s) CT BRAIN NECK CTA EXAM: CT BRAIN NECK CTA CLINICAL HISTORY: HTN, headache and dizzy. TECHNIQUE: Imaging Protocol: Axial CT angiography was performed with multi- slice acquisition and multi-planar and/or 3D reconstructions. CONTRAST MATERIAL: Intravenous: Omnipaque 350 Contrast volume:70 mL COMPARISON: CT CT HEAD SINUS WO from 09/03/2024 FINDINGS: ANTERIOR CIRCULATION: Aorta exhibits conventional anatomy and there is no significant stenosis at the origin of the great vessels off of the aortic arch. Common carotid arteries ascend with normal luminal diameters. There is partially calcified plaque at the carotid bulbs and both proximal internal carotid arteries but only approximately 10-15 percent stenosis bilaterally. The internal carotid arteries in the upper neck and skull base are patent. Posterior circulation: Both vertebral arteries originate in conventional fashion off of the subclavian arteries and there is no obvious stenosis at the origin of the vertebral arteries. Both vertebral arteries exhibit normal luminal diameters within the foramen transversarium. Luminal diameters of the vertebral arteries are approximately equal. No evidence of thrombosis nor dissection of the vertebral arteries. Both vertebral arteries contribute to the formation of the basilar artery at the skull base. CTA Brain W: Anterior circulation: Both internal carotid arteries are patent in the skull base-carotid canals as well as within the cavernous sinuses. The supraclinoid aspects of the ICAs are patent. Both A1 segments are patent as are the anterior cerebral arteries and there is no evidence of aneurysm at the level of the anterior communicating artery. Both middle cerebral arteries are patent with no evidence of significant stenosis nor intraluminal thrombus. There also no aneurysms of these vessels. Posterior circulation: The basilar artery ascends in the midline. Distally it gives off patent bilateral superior cerebellar arteries. Above this level the basilar artery terminates as patent bilateral posterior cerebral arteries. There is also a posterior communicating artery on the right side of the [id number] adding circulation to the root right posterior cerebral artery. There is no PCOM on the left side of the [id number]. There is no evidence of aneurysm at the tip of the basilar artery nor elsewhere in the [id number]. CT BRAIN: There is no evidence of intracranial hemorrhage, mass effect, or shift of midline structures. There are no extra-axial fluid collections. Ventricles are not enlarged or shifted. There are no ring enhancing lesions in the brain and no abnormal meningeal enhancement. IMPRESSION: 1. There is partially calcified plaque at the level leak bilateral carotid bulbs and proximal ICAs. However, the amount of stenosis is estimated at only 10-15 percent at these levels. 2. Patent vertebral arteries. No dissection. No thrombosis. 3. Patent intracranial arteries. No significant stenosis nor occlusion. No aneurysm. No vascular malformations. 4. No acute intracranial findings. No ring enhancing lesions in the brain. Preliminary virtual Radiology report was reviewed. RADIATION DOSE DELIVERED: 2,023.59mGy.cm Total DLP DATA REPOSITORY: All CT scans at this facility are submitted to the National Radiology Data Registry (NRDR) Dose Index Registry (DIR) with the [employer] (A[employer]). RADIATION OPTIMIZATION: All CT scans at this facility use at least one of these dose optimization techniques: automated exposure control; mA and/or kV adjustment per patient size (includes targeted exams where dose is matched to clinical indication); or iterative reconstruction.
--- NOTE | 2025-02-23 17:08 | ED.GENADUL_ITS ---
Discharge Plan Disposition Patient Disposition: Home Condition: Stable Discharge Details Clinical Impression: Hypertension Primary Care Provider: Elier Cross ED Provider: Gogo Black Home Meds and New Rx's Prescriptions: New amlodipine 5 mg tablet 5 mg PO DAILY Qty: 30 0RF No Action magnesium aspart,citrate,oxide 400 mg magnesium capsule 800 mg PO QHS gabapentin 100 mg capsule 100 mg PO TID PRN (Reason: neuropathic pain) Qty: 270 0RF estradiol 0.5 mg tablet 0.5 mg PO DAILY Qty: 90 3RF Rx Instructions: Replacing patch escitalopram oxalate 10 mg tablet 10 mg PO DAILY Qty: 30 2RF calcium carbonate-vitamin D3 PO probiophage PO Patient Comments: prescribed by Dr. Martinez fexofenadine [Allergy Relief (fexofenadine)] 180 mg tablet 180 mg PO DAILY Nexletol 180 mg tablet 180 mg PO DAILY Qty: 90 3RF Rx Instructions: continue per cardiology levothyroxine 50 mcg tablet 50 mcg PO DAILY Qty: 90 3RF trazodone 100 mg tablet 100 mg PO QHS PRN (Reason: sleep) Qty: 90 3RF mometasone 0.1 % cream 1 applic topical DAILY PRN (Reason: skin irritation) Qty: 45 1RF mupirocin 2 % ointment 1 applic topical BID Qty: 22 1RF trazodone 50 mg tablet 50 mg PO QHS PRN (Reason: sleep) Qty: 90 0RF fluticasone propionate [Flonase Allergy Relief] 50 mcg/actuation spray,suspension 2 spray intranasal DAILY Qty: 16 6RF Rx Instructions: administer into each nostril naltrexone 1.5 mg tablet See Rx Instructions PO .QD Qty: 30 3RF Rx Instructions: T1 tab QD vitamin B complex Capsule 1 cap PO DAILY Qty: 90 3RF acyclovir 5 % cream See Rx Instructions .ROUTE .COMPLEX Qty: 5 0RF Dose Instruction: APPLY TO AFFECTED AREA(S) ONCE NEEDED FOR CANKER SORE Rx Instructions: APPLY TO AFFECTED AREA(S) ONCE NEEDED FOR CANKER SORE omeprazole 20 mg capsule,delayed release(DR/EC) 20 mg PO DAILY PRN (Reason: acid reflux) Qty: 90 0RF epinephrine 0.3 mg/0.3 mL auto-injector 0.3 mg IM DIRECTED PRN (Reason: anaphylaxis) Qty: 2 2RF bupropion HCl 75 mg tablet 75 mg PO DAILY Discharge Instructions Instructions: High Blood Pressure ED Additional Instructions: You were seen in the emergency department today for evaluation of high blood pr essure and intermittent headaches. In our department had a full physical examination performed, including a reassuring EKG, a normal head CT, and reassuring labs. As we discussed, your blood pressure elevation should be monitored over time, you should get a blood pressure cuff for home and keep track of what your blood pressure readings are over the next few days. You will need to follow-up with your primary care provider within the next few days to discuss this visit and any symptoms that change, worsen, or persist. I did start you on a low-dose of a blood pressure medicine called amlodipine, please take this daily until you are told to make any changes by your primary care provider. You can continue to use Tylenol and ibuprofen as needed for your headache. Please follow-up with your primary care provider in the next few days to discuss this visit and any symptoms that change, worsen, or persist. Thank you for allowing us to be part of your care. HPI General Mode of arrival: ambulatory . Date/Time Provider Initiated Documentation: 02/23/25 17:00 . Limitations to Documentation: no limitations . Information obtained by: patient, family and old records reviewed . HPI Narrative: This is a 75-year-old female patient presenting for evaluation of hypertension. The patient reports that she has had a headache and some dizziness for some time, she typically attributes this to allergies. Today she was at the chiropractor and they noticed that her blood pressure was elevated in the 180s, and they told her that she needed to present to the emergency department for evaluation so that she did not have a heart attack. The patient reports that she is not experiencing chest pain, has a history of hypertension that was previously managed on medications, though she was taken off of this medication due to lack of need by her outpatient providers quite sometime ago. She states that she has not had any increase in her daily caffeine intake, does not smoke or drink, and states that her headaches have been mild and easily managed. She has not experienced vision changes, numbness, tingling, or weakness, has been eating and drinking and voiding typically. Related Data Home Medications ?Medication ?Instructions ?Recorded ?Confirmed calcium carbonate-vitamin D3 PO 10/10/23 01/01/25 fexofenadine 180 mg tablet 180 mg PO DAILY 04/16/24 (Allergy Relief (fexofenadine)) probiophage PO 04/16/24 01/01/25 magnesium aspart,citrate,oxide 800 mg PO QHS 06/23/24 02/23/25 bempedoic acid 180 mg tablet 180 mg PO DAILY #90 tabs 06/29/24 02/23/25 (Nexletol) levothyroxine 50 mcg tablet 50 mcg PO DAILY #90 tabs 0 06/29/24 02/23/25 trazodone 100 mg tablet 100 mg PO QHS PRN sleep #90 tabs 06/29/24 02/23/25 mometasone 0.1 % topical cream 1 applic topical DAILY PRN skin 06/30/24 02/23/25 irritation #45 grams mupirocin 2 % topical ointment 1 applic topical BID #2 2 grams 06/30/24 02/23/25 trazodone 50 mg tablet 50 mg PO QHS PRN sleep #90 t abs 07/21/24 02/23/25 Held on 09/23/24. Instructions: This dose stoppered per [facility] 09/16/24 fluticasone propionate 50 2 spray intranasal DAILY #16 grams 07/27/24 02/23/25 mcg/actuation nasal spray,suspension (Flonase Allergy Relief) escitalopram oxalate 10 mg tablet 10 mg PO DAILY #30 t abs 09/10/24 02/23/25 naltrexone See Rx Instructions PO .QD # 30 tabs 10/19/24 02/23/25 vitamin B complex 1 cap PO DAILY #90 caps /08/0402/23/25 acyclovir 5 % topical cream See Rx Instructions .Route 12/28/24 02/23/25 .COMPLEX #5 grams omeprazole 20 mg capsule,delayed 20 mg PO DAILY PRN ac id reflux #90 12/28/24 02/23/25 release caps epinephrine 0.3 mg/0.3 mL 0.3 mg (0.3 mL) IM DIRECT ED PRN 12/29/24 02/23/25 injection, auto-injector anaphylaxis #2 ea estradiol 0.5 mg tablet 0.5 mg PO DAILY #90 tabs 02/23/25 gabapentin 100 mg capsule 100 mg PO TID PRN neuropathi c pain 01/01/25 02/23/25 #270 caps bupropion HCl 75 mg tablet 75 mg PO DAILY Depression 0 01/05/25 02/23/25 amlodipine 5 mg tablet 5 mg PO DAILY #30 tabs 02/23 Previous Rx's ?Medication ?Instructions ?Recorded bempedoic acid 180 mg tablet 180 mg PO DAILY #90 tabs 06/29/24 (Nexletol) levothyroxine 50 mcg tablet 50 mcg PO DAILY #90 tabs 0 06/29/24 trazodone 100 mg tablet 100 mg PO QHS PRN sleep #90 tabs 06/29/24 mometasone 0.1 % topical cream 1 applic topical DAILY PRN skin 06/30/24 irritation #45 grams mupirocin 2 % topical ointment 1 applic topical BID #2 2 grams 06/30/24 trazodone 50 mg tablet 50 mg PO QHS PRN sleep #90 t abs 07/21/24 Held on 09/23/24. Instructions: This dose stoppered per [facility] 09/16/24 fluticasone propionate 50 2 spray intranasal DAILY #16 grams 07/27/24 mcg/actuation nasal spray,suspension (Flonase Allergy Relief) escitalopram oxalate 10 mg tablet 10 mg PO DAILY #30 t abs 09/10/24 naltrexone See Rx Instructions PO .QD # 30 tabs 10/19/24 vitamin B complex 1 cap PO DAILY #90 caps 10/08 08/04 acyclovir 5 % topical cream See Rx Instructions .Route 12/28/24 .COMPLEX #5 grams omeprazole 20 mg capsule,delayed 20 mg PO DAILY PRN ac id reflux #90 12/28/24 release caps epinephrine 0.3 mg/0.3 mL 0.3 mg (0.3 mL) IM DIRECT ED PRN 12/29/24 injection, auto-injector anaphylaxis #2 ea estradiol 0.5 mg tablet 0.5 mg PO DAILY #90 tabs gabapentin 100 mg capsule 100 mg PO TID PRN neuropathi c pain 01/01/25 #270 caps amlodipine 5 mg tablet 5 mg PO DAILY #30 tabs 02/23 Allergies Allergy/AdvReac Type Severity Reaction Status Date / Time venom-honey bee (bee venom Allergy Severe Anaphylaxsi Verified 02/23/25 16:59 (honey bee)) s fenofibrate Allergy Mild Other (See Verified 02/23/25 16:59 Comment) amoxicillin trihydrate (From Allergy Other (See Verified 02/23/25 16:59 Augmentin) Comment) atorvastatin calcium (From Allergy Other (See Verified 02/23/25 16:59 Lipitor) Comment) celecoxib (From Celebrex) Allergy Other (See Verified 02/23/25 16:59 Comment) diclofenac sodium (From Allergy Other (See Verified 02/23/25 16:59 Voltaren) Comment) potassium clavulanate (From Allergy Other (See Verified 02/23/25 16:59 Augmentin) Comment) rosuvastatin calcium (From Allergy Other (See Verified 02/23/25 16:59 Crestor) Comment) simvastatin (From Zocor) Allergy Other (See Verified 02/23/25 16:59 Comment) Sulfa (Sulfonamide Allergy Other (See Verified 02/23/25 16:59 Antibiotics) Comment) sulfamethoxazole (From Allergy Other (See Verified 02/23/25 16:59 Bactrim) Comment) trimethoprim (From Bactrim) Allergy Other (See Verified 02/23/25 16:59 Comment) gluten AdvReac Intermediate Gastrointestinal Verified 02/23/25 16:59 issues lactose AdvReac Intermediate Gastrointestinal Verified 02/23/25 16:59 issues morphine AdvReac Intermediate Nausea Verified 02/23/25 16:59 oxycodone HCl (From AdvReac Intermediate Nausea Verified 02/23/25 16:59 OxyContin) Penicillins AdvReac Intermediate Nausea Verified 02/23/25 16:59 General Stated Complaint: Headache RANDALL: 3 Exam Narrative Exam Narrative: Gen: awake and alert, in no apparent distress. Appears well nourished. HEENT: PERRL, EOMs full and without nystagmus. External ears and nose normal, mucous membranes moist. Neck: Supple, full range of motion, no observable masses Lungs: No increased work of breathing, lung sounds clear and equal bilaterally without wheezes, rhonchi, or rales. CV: Heart with regular rate and rhythm. Strong and symmetrical radial pulses. Abdomen: Soft, nondistended, non-tender to palpation. No rigidity, rebound tenderness, or guarding. MSK: No joint swelling, no redness. Full ROM without limitation, no external traumatic findings. No peripheral edema Skin: No rashes or lesions to visualized skin. Normal color, warm, and dry. Neuro: Cranial nerves II-XII intact and symmetrical bilaterally. 5/5 strength in all muscle groups x4 extremities. No sensory deficits. Ambulates with steady gait. Psych: Appropriate for situation. Course Vital Signs Vital signs: Vital Signs Temperature 36.6 C 02/23/25 16:52 Pulse 80 02/23/25 16:52 Respiratory Rate 20 02/23/25 16:52 Blood Pressure 187/87 H 02/23/25 16:52 Pulse Oximetry 97 02/23/25 16:52 Temperature 36.6 C 02/23/25 16:57 Pulse 80 02/23/25 16:57 Respiratory Rate 20 02/23/25 16:57 Blood Pressure 187/87 H 02/23/25 16:57 Blood Pressure Position Sitting 02/23/25 16:57 Pulse Oximetry 97 02/23/25 16:57 Oxygen Delivery Method Room Air 02/23/25 16:57 Oxygen Flow Rate 0 02/23/25 16:57 Medical Decision Making This is a 75-year-old female patient presenting for evaluation of hypertension and intermittent headache. Blood pressure 200s systolic on arrival to the ED. Differential includes but is not limited to hypertension, hypertensive emergency including stroke, intracranial hemorrhage, endorgan damage including ACS, kidney injury. Considered intracranial pathology including RCVS and press, though the patient is reassuringly headache free at this time. No neurodeficits to significantly increase my concern for intracranial mass or thrombosis. I obtained an EKG, which shows a sinus rhythm with LVH criteria met but no evidence for ischemia, interval abnormality, or ectopy. No significant changes compared to priors. We will obtain laboratory studies to include CBC, CMP, magnesium, troponin, and obtain a urinalysis. Given the presence of headache I will obtain a CTA brain and neck. I independently interpreted the laboratory studies, which show no significant leukocytosis, severe anemia, or thrombocytopenia. The chemistry panel is without evidence of electrolyte abnormality, kidney dysfunction, or liver injury. Troponin is negative and without interval increase in [address] scan of the brain is without intracranial abnormalities to explain her symptoms, and I shared all of this finding and workup with the patient. I counseled her on lifestyle management of blood pressure, and given the ongoing elevation in pressures to 200 systolic they feel it is not unreasonable to start this patient on an oral agent while awaiting outpatient follow-up. The patient cannot remember what medication she was on in the past, and so 5 mg of amlodipine p.o. was provided to her and sent to her pharmacy. I counseled her on outpatient follow-up and return precautions, and at this time, the patient has had a full medical evaluation and is safe for discharge to home. They are hemodynamically stable, ambulatory, and tolerating PO. They are understanding of the follow-up plan and return precautions. They left our facility without incident. Gogo Black MD Quality:[facility] Health Related Social Needs: Health related social needs details denies [facility] All Active Problems (Updated 02/23/25 @ 20:28 by Gogo Black MD) Hypertension (Chronic) Stomatitis (Acute) Neuropathy (Acute) GERD (gastroesophageal reflux disease) (Chronic) Chronic fatigue (Acute) Other sleep disorders not due to a substance or known physiological condition (Acute) Per 09/16/24 [facility] Note Mild cognitive impairment (Acute) Per 09/16/24 [facility] Attention and concentration deficit (Acute) Per 09/16/24 [facility] Generalized anxiety disorder (Acute) Per 09/16/24 [facility] Major depressive disorder, recurrent, moderate (Acute) Per 09/16/24 [facility] Overactive bladder (Acute) Per 09/21/24 [facility] Urology Note Dry skin (Acute) Post-Lyme disease syndrome (Acute) Sciatica (Acute) Spinal stenosis of lumbar region (Acute) Pancreatic cyst (Acute) Hypercalciuria (Acute ~01/2024) 01/22/24 Endocrinology Metatarsalgia of both feet (Acute) Hallux rigidus of right foot (Acute) Hallux rigidus, left foot (Acute) Osteopenia (Acute 12/27/22) DEXA at [facility] Chronic low back pain (Chronic) 10/24/22 Steroid injection Mixed anxiety and depressive disorder (Acute) Arthritis of carpometacarpal (CMC) joint of right thumb (Acute) 11/07/21 & 12/29/21 Arthroplasty at [facility] Leg length discrepancy (Acute) Achilles tendon contracture, bilateral (Acute) Pes planus of both feet (Acute) Mild anemia (Acute) Wears hearing aid in both ears (Acute) Symptomatic varicose veins of both lower extremities (Acute) Familial hypercholesteremia (Acute) per pt report (Dr. Laguna? Card) Hypothyroid (Chronic) Allergic rhinitis due to animal (cat) (dog) hair and dander (Acute 05/04/13) Allergic rhinitis due to pollen (Acute 05/04/13) Conductive hearing loss (Acute 12/19/15) Eustachian tube anomaly (Acute 05/17/14) Obstructive sleep apnea (Acute 05/17/14) Sensorineural hearing loss, bilateral (Acute 04/04/15) Vitamin D deficiency disease (Acute) Urinary incontinence (Acute) [facility] note from 02/20/24 installation of Intradetrusor Botox injections/bladder surgery.HE Heart murmur, systolic (Acute) Medical History Fracture of second metatarsal bone of left foot (~05/16/23) with no trauma, etiology? Neuroma of third interspace of left foot Neuroma of third interspace of right foot Chronic diarrhea Lyme disease (2020) Allergic rhinitis (05/04/13) Perforation of left tympanic membrane History of endometriosis Encounter for screening colonoscopy Allergic fungal sinusitis (05/04/13) Surgical History H/O endoscopy (06/26/24) [place] E[place] due to [place] [facility] CMCJ of [place] H/O abdominoplasty age 59 Status post breast reduction age 59 H/O nasal septoplasty age 39 H/O hysterectomy for benign disease History of knee replacement R History of hysterectomy History of section History of tonsillectomy History of appendectomy History of colonoscopy Family History Brother Anxiety Depression Niece Depression Nephew Depression Mother Heart disease Father Heart disease Parkinson disease Sister Heart disease Depression Paternal Grandmother No problems noted. Maternal Grandfather Diabetes Brother No problems noted. 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 Pets and animals: No Do you think of yourself as: straight/heterosexual Current gender identity: female What is your relationship status?: How often do you talk on the phone with friends or family?: three or more times per week How often do you get together with friends or relatives?: three or more times per week Do you belong to any clubs or organized social groups?: yes Panel score (0-1 are the most socially isolated patients): 2 What type of physical activity do you participate in: walking and swimming Duration: 15-30 minutes/day Frequency: 3-4 times per week Jodie/Congregation: [employer]ist Agree to transfusion: No Seatbelt use: always Helmet use: Yes Drive intox or ride w/intox team cdl driver: No Do you feel safe at home: Yes Do you feel safe in your relationship?: Yes PAWSS Have you Been Recently Intoxicated or Drunk Within the Last 30 days?: No Have you Ever Experienced Previous Episodes of Alcohol Withdrawal?: No Have you ever Experienced Withdrawal Seizures?: No Have you ever Experienced Delirium Tremens(DT)s?: No Have you ever undergone Alcohol Rehabilitation Treatment (i.e, inpt ot outpatient treatment programs)?: No Have you ever Experienced Blackouts?: No Have you ever Combined Alcohol with other Downers within the last 90 days?: No Have you ever Combined Alcohol with any other Substance of Abuse during the last 90 days?: No Positive Blood Alcohol level on Presentation? [PCS.BAL]: No Evidence of Increased Autonomic Activity (i.e. HR>120, tremor, sweating, agitation, nausea)?: No Result: 0
[2025-02-23 17:31] LABS: Abs Immature Grans 0.03 10^3/uL (0.0-0.06); HCT 32.2 % (36.0-46.0); HGB 10.9 g/dL (11.2-15.7); Immature Grans % 0.5 %; MCH 30.3 pg (27.0-33.0); MCHC 33.9 % (32.0-36.0); MCV 89 fL (80-95); MPV 8.7 fL (8.0-11.0); Platelet Count 396 10^3/uL (130-400); RBC 3.60 10^6/uL (3.93-5.22); RDW 12.4 % (11.7-14.6); RDW-SD 40.4 fL; WBC 6.59 10^3/uL (4.4-10.8)
[2025-02-23 17:48] LABS: INR 1.1 (0.9-1.1); Prothrombin Time 11.2 sec (9.1-11.1)
[2025-02-23 18:08] LABS: ALT 28 U/L (14-59); AST 25 U/L (15-37); Albumin 4.2 g/dL (3.4-5.0); Alkaline Phosphatase 58 U/L (46-116); Anion Gap 9.2 mmol/L (3-11); BUN 19 mg/dL (7-18); Bilirubin, Total 0.5 mg/dL (0.2-1.0); CO2 28.8 mmol/L (21.0-32.0); Calcium 9.5 mg/dL (8.5-10.1); Chloride 96 mmol/L (98-107); Estimated GFR 76.31 (mL/min/1.73m2); Glucose 92 mg/dL (74-106); Magnesium 1.9 mg/dL (1.8-2.4); Potassium 3.6 mmol/L (3.5-5.1); Sodium 134 mmol/L (136-145); Total Protein 7.6 g/dL (6.4-8.2); Troponin I 6 ng/L (<or=51)
[2025-02-23 18:52] LABS: Troponin I 7 ng/L (<or=51)
[2025-02-23] MEDS: Normal Saline - Diluent 50 ML VIAL IJ (19:15)
[2025-02-23] MEDS: Omnipaque 350 MG/ML 100 ML BTL IJ (19:15)
[2025-02-23] MEDS: Normal Saline Flush 10 ML SYR IVP (19:15)
--- NOTE | 2025-02-23 20:08 | DI.VRAD_ITS ---
PROCEDURE INFORMATION: Exam: CTA Head Without And With Contrast, Arteriography Exam date and time: 02/23/2025 7:08 PM Age: 75 years old Clinical indication: Other: HTN, headache and dizzy TECHNIQUE: Imaging protocol: Computed tomographic angiography of the head without and with contrast. Exam focused on the arteries. 3D rendering (Not supervised by radiologist): MIP and/or 3D reconstructed images were created by the technologist. Contrast material: OMNI 350; Contrast volume: 70 ml; Contrast route: INTRAVENOUS (IV); COMPARISON: CT HEAD SINUS WO 09/03/2024 5:42 PM FINDINGS: ANTERIOR CIRCULATION: Right internal carotid artery: Intracranial segment is patent with no significant stenosis or occlusion. No aneurysm. Right middle cerebral artery: No occlusion or significant stenosis. No aneurysm. Right anterior cerebral artery: No occlusion or significant stenosis. No aneurysm. Left internal carotid artery: Intracranial segment is patent with no significant stenosis. No aneurysm. Left middle cerebral artery: No occlusion or significant stenosis. No aneurysm. Left anterior cerebral artery: No occlusion or significant stenosis. No aneurysm. POSTERIOR CIRCULATION: Right vertebral artery: No occlusion or significant stenosis. No aneurysm. Left vertebral artery: No occlusion or significant stenosis. No aneurysm. Basilar artery: No occlusion or significant stenosis. No aneurysm. Right posterior cerebral artery: No occlusion or significant stenosis. No aneurysm. Left posterior cerebral artery: No occlusion or significant stenosis. No aneurysm. HEAD: Brain: No acute intracranial hemorrhage or mass lesions. No midline shift. Normal hough-white differentiation. Cerebral ventricles: Normal. No ventriculomegaly. Bones: Unremarkable. No acute fracture. Paranasal sinuses: Visualized sinuses are normal. No fluid levels. Mastoid air cells: Visualized mastoids are normal. No mastoid effusion. Soft tissues: Unremarkable. IMPRESSION: 1. No acute stenosis, occlusion, or aneurysm. 2. No acute intracranial findings. PROCEDURE INFORMATION: Exam: CTA Neck Without And With Contrast Exam date and time: 02/23/2025 7:08 PM Age: 75 years old Clinical indication: Other: HTN, headache and dizzy TECHNIQUE: Imaging protocol: Computed tomographic angiography of the neck without and with contrast. Exam focused on the cervical segments of the vasculature. 3D rendering (Not supervised by radiologist): MIP and/or 3D reconstructed images were created by the technologist. Contrast material: OMNI 350; Contrast volume: 70 ml; Contrast route: INTRAVENOUS (IV); COMPARISON: CT HEAD SINUS WO 09/03/2024 5:42 PM FINDINGS: Right common carotid artery: No stenosis. No dissection or occlusion. Right internal carotid artery: Moderate atheromatous calcifications are present at the right carotid bulb. Right external carotid artery: No occlusion or stenosis of the origin. Left common carotid artery: No stenosis. No dissection or occlusion. Left internal carotid artery: Mild atheromatous calcifications are present at the left carotid bulb. Left external carotid artery: No occlusion or stenosis of the origin. Right vertebral artery: No stenosis. No dissection or occlusion. Left vertebral artery: No stenosis. No dissection or occlusion. Aorta: Atheromatous calcifications are present within the visualized thoracic aorta. Soft tissues: Normal. No significant soft tissue swelling. Bones/joints: Moderate degenerative changes are present throughout the cervical spine including intervertebral disc space narrowing, endplate sclerosis and osteophytosis. IMPRESSION: No acute stenosis, occlusion, or aneurysm. REFERENCES: NASCET CRITERIA. The degree of stenosis in the cervical segment of the internal carotid artery is based on NASCET criteria. Normal is no stenosis. Mild is less than 50% stenosis. Moderate is 50-69% stenosis. Severe is 70% to 99% stenosis. Total occlusion is no detectable patent lumen. Dictated and Authenticated by: Montserrat Rose MD. Orderin [facility]. Robert Bowens MD
[2025-02-23] MEDS: amLODIPine 5 MG TAB PO (20:36)
== END 2025-02-23 22:06 | disposition home or self-care (01) ==
PROVIDERS: Emergency Provider Emergency Medicine; PCP Family Medicine
DX: R51.9 Headache, unspecified (principal); I10 Essential (primary) hypertension; R42 Dizziness and giddiness
CPT/HCPCS: 36415; 70496; 70498; 80053; 93005; 99285; 81003; 83735; 84484; 85025; 85610; 93010; 99284; J3490

== ENCOUNTER 2025-06-08 16:27 | Outpatient (REF) | payer MEDICARE, SELFPAY | END 2025-06-08 16:28 | disposition home or self-care (01) | LOC: LBN 16:27 | PROVIDERS: PCP Family Medicine; Visit Provider Nurse Practitioner Family | DX: R82.998 Other abnormal findings in urine (principal); R10.20 Pelvic and perineal pain unspecified side | CPT/HCPCS: 87077; 87086; 87186 ==